=== PATIENT | female | born 2005 | race Caucasian/White ===

== ENCOUNTER 2024-11-11 23:58 | Outpatient (RCR) | payer MEDICAID, SELFPAY ==
[2024-11-12 00:40] VITALS: BP 127/74; PULSE 113
== END 2025-02-09 23:59 | disposition home or self-care (01) ==
LOC: ANHOBOP 23:58
PROVIDERS: PCP Obstetrics & Gynecology; Visit Provider Obstetrics & Gynecology
DX: O36.8190 Decreased fetal movements, unspecified trimester, not applicable or unspecified (principal); Z3A.00 Weeks of gestation of pregnancy not specified
CPT/HCPCS: 59025

== ENCOUNTER 2024-11-13 14:05 | Observation (INO) | payer SELFPAY ==
--- NOTE | ~2024-11-13 | US_ITS ---
EXAMINATION: US renal BI DATE: 11/13/2024 15:14 INDICATION: Right flank pain. TECHNIQUE: Multiple ultrasound grayscale images of the kidneys were obtained. COMPARISON: None. FINDINGS: The right kidney measures 12.9 x 5.4 x 4.6 cm. The left kidney measures 12.8 x 4.4 x 4.5 cm. The kidn eys demonstrate normal parenchymal echogenicity. There is mild right hydronephrosis. The bladder is d ecompressed. The gallbladder is normal in size contains gallstones. IMPRESSION: 1. Mild right hydronephrosis. 2. Cholelithiasis. Reviewed, dictated and finalized at location A. [employer]
--- NOTE | 2024-11-13 14:05 | OBADM ---
This patient, Lani Ho, admitted to the OB room [facility] for observation. Patient/family oriented to hospital policies and general routines including ID bracelet, bed and alarms, visiting hours, pain management, procedures, bathroom and other care routines, personal items, smoking policy, room service/diet, and visiting hours. Patient/Family are encouraged to report perceived risks to care and to ask questions if they do not understand what they are told or what they should do.
[2024-11-13 14:30] VITALS: BP 117/71; PULSE 103
[2024-11-13 14:31] VITALS: BP 114/66; PULSE 99
[2024-11-13 14:45] VITALS: BP 113/66; PULSE 101
[2024-11-13 15:02] LABS: Add Urine Microscopic? YES; Appearance Urine Cloudy (Clear); Bacteria Urine 1+ /hpf; Bilirubin Urine Negative (Negative); Blood Urine 3+ (Negative); Color Urine Yellow (Yellow); Glucose Urine UA Negative (Negative); Ketones Urine Negative (Negative); Leukocyte Esterase Ur 2+ LEU/UL (Negative); Need Manual Microscopic Reviewed; Nitrate Urine Negative (Negative); Protein Urine 1+ mg/dL (Negative); RBC Urine >100 /hpf (0-2); Squamous Epithelial Cell Urine Moderate /hpf (Few); Urobilinogen Urine 0.2 mg/dL (<2.0); WBC Urine 21-50 /hpf (0-3)
[2024-11-13 15:02] LABS: Basophils Percent Auto 0.4 % (0.2-1.2); Eosinophils Percent Auto 0.5 % (0-4.4); Hematocrit 30.5 % (37.0-47.0); Hemoglobin 10.7 g/dL (12.0-15.0); Immature Granulocyte Absolute 0.07 K/mm3 (0.00-0.031); Immature Granulocyte Percent A 0.9 % (0-0.5); Lymphocytes Absolute Auto 1.32 K/mm3 (0.9-3.2); Lymphocytes Percent Auto 16.5 % (18.3-44.2); Mean Corpuscular HGB Conc 35.1 g/dl (32-36); Mean Corpuscular Hemoglobin 33.3 pg (26-34); Mean Platelet Volume 9.8 fl (7.4-10.4); Monocytes Absolute Auto 0.5 K/mm3 (0.1-0.6); Monocytes Percent Auto 6.4 % (2.6-8.5); Neutrophils Absolute Auto 6.1 K/mm3 (1.3-6.7); Neutrophils Percent Auto 75.3 % (45.5-73.1); Platelet Count Result 245 k/mm3 (150-375); Red Blood Count 3.21 M/mm3 (4.2-5.4); Red Cell Distribution Width 12.1 % (11.5-14.5)
[2024-11-13 15:18] LABS: Alanine Aminotransferase 15 U/L (6-35); Albumin Level 3.9 g/dL (3.5-5.1); Alkaline Phosphatase 71 U/L (38-126); Anion Gap 3 mmol/L (4-12); Aspartate Amino Transferase 21 U/L (14-36); Bilirubin,Total 0.5 mg/dL (0.2-1.3); Blood Urea Nitrogen 7 mg/dL (7-17); Calcium 9.2 mg/dL (8.4-10.2); Carbon Dioxide 22 mmol/L (22-30); Chloride 108 mmol/L (98-107); Estimated Glomerular Filt Rate > 60; Glucose 82 mg/dL (65-110); Potassium 3.9 mmol/L (3.4-5.0); Sodium 133 mmol/L (137-145)
[2024-11-13 15:20] VITALS: BP 124/75; PULSE 100
[2024-11-13 15:57] VITALS: BMI 26.8
--- NOTE | 2024-11-13 15:57 | PC.NURSE ---
Dr. Wei update on pt lab results and ultrasound. gave order for antibotics and discharge orders.
--- NOTE | 2024-11-17 21:13 | PM.OBTRLD ---
OB - Triage/Final Diagnosis Visit Information Comments/Additional reasons for admission: I have assessed the risk for this patient, Lani Ho, and determined that she would benefit from observation care. Evaluation Laboratory results: Laboratory Tests 11/13/24 11/13/24 14:35 14:48 WBC 8.0 RBC 3.21 L Hgb 10.7 L Hct 30.5 L MCV 95.0 MCH 33.3 MCHC 35.1 RDW 12.1 Plt Count 245 MPV 9.8 Immature Gran % (Auto) 0.9 H Neut % (Auto) 75.3 H Lymph % (Auto) 16.5 L [place] % (Auto) 6.4 Eos % (Auto) 0.5 Baso % (Auto) 0.4 Lymph # (Auto) 1.32 [place] # (Auto) 0.5 Eos # (Auto) 0.0 Baso # (Auto) 0.0 Abs Immat Gran (auto) 0.07 H Absolute Neuts (auto) 6.1 Absolute Nucleated RBC 0.000 Nucleated RBC % 0.0 Sodium 133 L Potassium 3.9 Chloride 108 H Carbon Dioxide 22 Anion Gap 3 L BUN 7 Creatinine 0.40 L Estim Creat Clear Calc Not Reportable Estimated GFR > 60 Glucose 82 Calcium 9.2 Total Bilirubin 0.5 AST 21 ALT 15 Alkaline Phosphatase 71 Total Protein 7.0 Albumin 3.9 Urine Color Yellow Urine Appearance Cloudy H Urine pH 8.0 Ur Specific [place] 1.020 Urine Protein 1+ H Urine Glucose (UA) Negative Urine Ketones Negative Ur Blood (Man) 3+ H Urine Nitrate Negative Urine Bilirubin Negative Urine Urobilinogen 0.2 Add Ur Microanalysis Reviewed Leukocyte Esterase Rfl 2+ H Urine RBC >100 H Urine WBC 21-50 H Ur Squamous Epith Cells Moderate Urine Bacteria 1+ H Urine Casts 3-5 Final Diagnosis (1) Decreased movement: Code(s): O36.8190 - Decreased movements, unspecified trimester, not applicable or unspecified Status: Acute
== END 2024-11-13 16:12 | disposition home or self-care (01) ==
PROVIDERS: Admitting Provider Obstetrics & Gynecology; Visit Provider Obstetrics & Gynecology
DX: O36.8120 Decreased fetal movements, second trimester, not applicable or unspecified (principal); Z3A.27 27 weeks gestation of pregnancy
CPT/HCPCS: 36415; 76775; 80053; 81001; 85025; 87086; 99199; G0378; G0379

== ENCOUNTER 2025-01-05 15:34 | Outpatient (RCR) | payer OTHER, SELFPAY ==
[2025-01-05 17:51] LABS: HIV 1/2 Ab P24 Ag Result Negative (Negative)
--- OUTSIDE RECORDS SUMMARY | 2025-01-05 18:08 | XMS_ITS ---
Author Organization Unknown Address [address], [place] [id number] Phone Care Team Providers Care Installment Account Checker Name Role Phone DEON CONROY Attending Unavailable Results CYTOMEGALOVIRUS AB IGG - Col lect Date/Time: 10/22/2024 14:12 [facility] ID: [id number] [address], [place], [id number] LOINC: 5124-3 Test Value Unit Reference Range Code Code System Flag CYTOMEGALOVIRUS ANTIBODY(IGG) >10.00 H PARVOVIRUS B19 IGG & IGM - C ollect Date/Time: 10/22/2024 14:12 [facility] ID: [id number] [address], [place], [id number] LOINC: 5273-8 Test Value Unit Reference Range Code Code System Flag PARVOVIRUS B19 ANTIBODY(IGG) 0.2 PARVOVIRUS B19 ANTIBODY(IGM) 0.2 Social History Type Status Start Date End Date Code Code Syst em Smoking History Never smoker (Never Smoked) 108288098 SNOMED CT Sex Female Sexual Orientation Straight or Heterosexual 57696083 SNOMED CT Gender Identity Female [id number] Medications Medication Start Date End Date Route Frequency Dose Code Code System Medication Instructions Home Meds ZyrTEC Allergy 10MG Oral Capsule, Liquid Filled 03/12/2023 Unknown By Mouth Daily 1 CAPSULE 2453131 RxNorm 1 CAPSULE By Mouth Daily Fluticasone 0.05MG/1Actuatio n Nasal [place] 03/12/2023 Unknown Nasal Daily 1 Sprays 1928655 RxNorm 1 Spra ys Nasal Daily Azithromycin 500MG Oral Tablet 06/04/2024 Unknown By Mouth x1 NOW 2 TABLET 625219 RxNorm 2 TABLET By Mouth x1 NOW Assessment You had the following problems:SEASONAL ALLERGYFAMILY PLANNINGBITE OF INSECTCANDIDA OF VAGINAMENORRHAGIAPAINFUL NECK Hospital Discharge Instructions Should you have any questions prior to discharge, please contact a member of your healthcare team. If you have left the hospital and have any questions, please contact your primary care physician. Reason For Referral No Data Found Problems Problem Start Date Resolved Date Status Code Code System SEASONAL ALLERGY active 294357826 SNO MED-CT FAMILY PLANNING 06/20/2020 active 559643278 SNO MED-CT BITE OF INSECT active 252901502 SNOME D-CT ES OF VAGINA 08/07/2022 active 94514896 S NOMED-CT MENORRHAGIA active 596228825 SNOMED-C T PAINFUL NECK active 66971403 SNOMED- CT ADHD OF CHILDHOOD 07/22/2019 resolved 206992086 S NOMED-CT SEASONAL NASAL ALLERGY 07/22/2019 resolved 157829 001 SNOMED-CT HISTORY OF [place] 07/22/2019 resolved 7932319 08 SNOMED-CT Allergies and Adverse Reactions Allergy Substance Reaction Severity Start Date Concern Status Co de Code System Active seasonal allergies Active No Known Drug Allergies Active 891004640 SNOMED-CT No Known Drug Allergies Active 497518045 SNOMED-CT Plan of Treatment Description Due Date Details Instructions DEPRESSION SCREENING DUE 06/20/2021 Encounters Encounter Diagnosis Start Date Code Code Sys tem ultrasound scan abnormal 10/22/2024 855665 005 SNOMED-CT Personal Care Team Section Performer Name Performer Role Active Date Inactive Da xena
--- OUTSIDE RECORDS SUMMARY | 2025-01-05 18:09 | XMS_ITS | Data Portability ---
Author Organization [facility] Address [address] [place] [address] Assessment No assessment recorded. Plan of Treatment Reminders Order Date Submit Date Provider Last Modified By Organization Details Last Modified Time Details Appointments None recorded. Lab CBC w/ auto diff 2024 025 [place] [facility], [address] [place], [address], 5 12:24:38 glucose tolerance test, post-50G, 1-hour 2024 025 [facility], [address] [place], [address], 5 12:35:39 obstetric screen, serum or blood 2024 025 [place] [facility], [address] [place], [address], 5 14:47:18 Referral None recorded. Procedures None recorded. Surgeries None recorded. Imaging None recorded. Medication Orders None recorded. Patient TargetsNo targets recorded. Patient Instructions Encounter Date Encounter Id Patient Instructions Last Modified By Organization Details Last Modified Time 11/18/2024 [id number] learning about screening for gestational diabetes Not available 11/18/2024 15:10:20 11/26/2024 [id number] Anxiety During and After : Care Instructions Not available 11/26/2024 17:57:56 Reason for Referral None Reported. Results Created Date Observation Date Name Description Value Unit Range Abnormal Flag Note LastModifiedBy Organization Detail LastModifiedTime 11/18/1911/19/2024 CBC (INCL UDES DIFF/ PLT) WBC 7.6 thous and/u L 4.0 - 9.8 normal Not Available [facility] [address] [place] [address], [address], 11/19/2024 12:24:38 11/18/19 25 11/19/2024 CBC (INCL UDES DIFF/ PLT) RBC 3.4 jonathon on/uL 3.9 - 4.9 low Not Available [facility] [address] [place] [address], [address], 11/19/2024 12:24:38 11/18/19 25 11/19/2024 CBC (INCL UDES DIFF/ PLT) hemoglobin 11.0 g/dL 11.8 - 14.8 low Not Available [facility] [address] [place] [address], [address], 11/19/2024 12:24:38 11/18/19 25 11/19/2024 CBC (INCL UDES DIFF/ PLT) hematocrit 32.6 % 35.5 - 44.0 low Not Available [facility] [address] [place] [address], [address], 11/19/2024 12:24:38 11/18/19 25 11/19/2024 CBC (INCL UDES DIFF/ PLT) MCV 96.7 fL 82.0 - 99.0 normal Not Available [facility] [address] [place] [address], [address], 11/19/2024 12:24:38 11/18/1911/19/2024 CBC (INCL UDES DIFF/ PLT) MCH 32.6 pg 27.2 - 32.6 normal Not Available [facility] [address] [place] [address], [address], 11/19/2024 12:24:38 11/18/19 25 11/19/2024 CBC (INCL UDES DIFF/ PLT) MCHC 33.7 g/dL 31.5 - 35.5 normal Not Available [facility] [address] [place] [address], [address], 11/19/2024 12:24:38 11/18/19 25 11/19/2024 CBC (INCL UDES DIFF/ PLT) RDW-CV 12.2 % 11.5 - 14.5 normal Not Available [address], [address], 11/19/2024 12:24:38 11/18/19 25 11/19/2024 CBC (INCL UDES DIFF/ PLT) platelet 294 thous and/u L 140 - 350 normal Not Available [address], [address], 11/19/2024 12:24:38 11/18/19 25 11/19/2024 CBC (INCL UDES DIFF/ PLT) MPV 10.4 fL 9.3 - 12.4 normal Not Available [address], [address], 11/19/2024 12:24:38 11/18/19 25 11/19/2024 CBC (INCL UDES DIFF/ PLT) absolute neutrophil 5.66 thous and/u L 1.90 - 7.00 normal Not Available [address], [address], 11/19/2024 12:24:38 11/18/19 25 11/19/2024 CBC (INCL UDES DIFF/ PLT) absolute lymphocyte 1.32 thous and/u L 0.70 - 4.50 normal Not Available [address], [address], 11/19/2024 12:24:38 11/18/19 25 11/19/2024 CBC (INCL UDES DIFF/ PLT) absolute monocyte 0.46 thous and/u L 0.10 - 1.30 normal Not Available [address], [address], 11/19/2024 12:24:38 11/18/19 25 11/19/2024 CBC (INCL UDES DIFF/ PLT) absolute eosinophil 0.05 thous and/u L <0.70 normal Not Available [address], [address], 11/19/2024 12:24:38 11/18/19 25 11/19/2024 CBC (INCL UDES DIFF/ PLT) absolute basophil 0.03 thous and/u L <0.20 normal Not Available [address], [address], 11/19/2024 12:24:38 11/18/19 25 11/19/2024 CBC (INCL UDES DIFF/ PLT) absolute immature granulocyte 0.08 thous and/u L <0.03 high Not Available [address], [address], 11/19/2024 12:24:38 11/18/19 25 11/19/2024 (50G) 1HR - GLUCO SE GIA ANCE TEST, GESTA LEDER L SCREE N glucose (50g) 1 hour 144 mg/dL <135 high Not Available [address], [address], 11/19/2024 12:35:39 11/18/19 25 11/19/2024 OB 28W (SYPH HIV 1/2 Ag/Ab Non-Re active non-re active normal Not Available [address], [address], 11/19/2024 14:47:18 11/18/19 25 11/19/2024 OB 28W (SYPH syphilis Ab Non-Re active non-re active normal Not Available [address], [address], 11/19/2024 14:47:18 11/23/19 25 11/24/2024 (100G ) 3HR - GLUCO SE GIA ANCE TEST, GESTA ELDER L SCREE N glucose (100g) fasting 86 mg/dL <95 normal Not Available [address], [address], 11/24/2024 14:31:33 11/23/19 25 11/24/2024 (100G ) 3HR - GLUCO SE GIA ANCE TEST, GESTA ELDER L SCREE N glucose (100g) 1 hour 198 mg/dL <180 high Not Available [facility] [address] [place], [address], 11/24/2024 14:31:33 11/23/19 25 11/24/2024 (100G ) 3HR - GLUCO SE GIA ANCE TEST, GESTA ELDER L SCREE N glucose (100g) 2 hour 163 mg/dL <155 high Not Available [facility] [address] [place], [address], 11/24/2024 14:31:33 11/23/19 25 11/24/2024 (100G ) 3HR - GLUCO SE GIA ANCE TEST, GESTA ELDER L SCREE N glucose (100g) 3 hour 145 mg/dL <140 high Not Available [facility] [address] [place], [address], 11/24/2024 14:31:33 09/23/20 24 09/23/2024 US, obste tric, 2nd trime ster No observ ation record ed. [email or web address] [facility] [address] [place] [address], [address], 09/24/2024 15:24:20 10/23/20 24 10/21/2024 US, obste tric No observ ation record ed. [email or web address] [facility] [address] [place] [address], [address], 11/30/2024 13:18:29 11/20/19 25 11/19/2024 US, obste tric No observ ation record ed. [email or web address] [facility] [address] [place] [address], [address], 12/02/2024 14:05:06 Result Notes None recorded. 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) WOLF GUADARRAMA NP [address] [place] [address], [address], [facility] - [facility] IV 5 18:48:16 RhD negative 272294886 Active 2024 RH (D) NIPT detected will need [place] [address] [place] [address], [address], [facility] - [facility] IV 5 18:49:16 Large for gestation age fetus 077515353 Active 2024 EFW 98%tile on 10/22 Echogenic bowel 11/19-94%til e WOLF GUADARRAMA NP [facility] [place], [address], [facility] - [facility] IV 5 14:05:39 Gestationa l diabetes mellitus 66702705 Active 2024 WOLF GUADARRAMA NP [facility] [place], [address], [facility] - [facility] 5 17:52:44 Problem Notes None recorded. Procedures Surgical History Date Name Laterality Status Provider Name and Address Organization Details Recorded Time Appendectomy completed Rebecca Chadwick [place] - [facility] 06/09/2024 15:08:50 Imaging Results Imaging Date Name Status LastModified by Organiz ation Details LastModified Time 09/23/2024 US, obstetric, 2nd trimester completed [email or web address] [facility] [address] [place] [address], [address], 09/24/2024 15:24:20 10/21/2024 US, obstetric completed [facility]32 [facility] [address] [place], [address], 11/30/2024 13:18:29 11/19/2024 US, obstetric completed [facility]32 [facility] [address] [place], [address], 12/02/2024 14:05:06 Procedure Notes None recorded. Medical Equipment None Reported. Allergies No known drug allergies Medications Name Sig Start Date Stop Date Status Note LastModified by Organization Details LastModified Time amoxicillin 500 mg capsule TAKE ONE CAPSULE BY MOUTH EVERY 8 HOURS FOR 10 DAYS 06/09 completed Not Available Not Available Not Available Accu-Chek Softclix Lancets USE TO MONITOR BLOOD SUGAR LEVEL FOUR TIMES DAILY active Not Available Not Available No t Available cephalexin 500 mg capsule TAKE 1 CAPSULE BY MOUTH EVERY 6 HOURS FOR 7 DAYS 11/26 completed Not Available Not Available Not Available azithromyci n 500 mg tablet 06/09 completed Not Available Not Available Not Available 06/23 completed Not Available Not Available Not Available 28 mg iron-800 mcg tablet Take 1 tablet every day by oral route. 2023 active Not Available Not Available Not Avai lable Accu-Chek Guide test strips USE TO CHECK FASTING AND 2 HOURS AFTER EACH MEAL active Not Available Not Available No t Available Accu-Chek Guide Glucose Meter USE TO MONITOR BLOOD SUGAR LEVELS DIRECTED active Not Available Not Available No t Available Vitals Date Recorded Body height Body mass index (BMI) Body mass index (BMI) Percentile per age and sex Body weight Systolic blood pressure Diastolic blood pressure Provider Name and Address Organization Details Last Updated DateTime 4 172.72 cm 26 kg/m2 83 % 23991.2 9527 g 120 mm[Hg] 70 mm[Hg] Lucinaandrea Rossi [facility] IV 4 15:43:01 Date Recorded Body weight Body mass index (BMI) Percentile per age and sex Body mass index (BMI) Body height Body temperature Systolic blood pressure Diastolic blood pressure Provider Name and Address Organization Details Last Updated DateTime 4 52974.8 16681 g 85 % 26.7 kg/m2 172.72 cm 96.6 [degF] 118 mm[Hg] 68 mm[Hg] Cristela Harpersangeeta [facility] 4 14:19:52 Date Recorded Body weight Body mass index (BMI) Body mass index (BMI) Percentile per age and sex Body height Systolic blood pressure Diastolic blood pressure Provider Name and Address Organization Details Last Updated DateTime 5 70922.4 4186 g 27.1 kg/m2 86 % 172.72 cm 110 mm[Hg] 70 mm[Hg] [facility] 5 14:46:18 Date Recorded Body weight Body mass index (BMI) Body mass index (BMI) Percentile per age and sex Body height Systolic blood pressure Diastolic blood pressure Provider Name and Address Organization Details Last Updated DateTime 5 95190.6 266 g 27.4 kg/m2 87 % 172.72 cm 112 mm[Hg] 68 mm[Hg] [facility] 5 16:44:47 Date Recorded Body weight Body mass index (BMI) Percentile per age and sex Body mass index (BMI) Body height Systolic blood pressure Diastolic blood pressure Provider Name and Address Organization Details Last Updated DateTime 5 54939.8 4949 g 86 % 26.9 kg/m2 172.72 cm 112 mm[Hg] 70 mm[Hg] [facility] IV 5 14:34:15 Social History Question Answer Notes LastModified by Organizat ion Details LastModified Time Tobacco Smoking Status Never Smoker Rebecca acosta, [facility] 06/09/2024 15:08:08 What Is Your Level Of Alcohol Consumption? None [email or web address] Information not available 06/09/2024 If You Are , What Was Your Level Of Alcohol Consumption Prior To ? None [email or web address] Information not available 06/09/2024 Are You Blind Or Do You Have Difficulty Seeing? No Information not available 06/23/2024 Are You Deaf Or Do You Have Serious Difficulty Hearing? No Information not available 06/23/2024 What Type Of Diet Are You Following? REGULAR Information not available 06/09/2024 How Many Children Do You Have? 0 [email or web address] Information not available 06/23/2024 What Is Your Relationship Status? Domestic Partner [email or web address] Information not available 06/09/2024 Are You Sexually Active? Yes [email or web address] Information not available 06/09/2024 Do You Use Any Illicit Or Recreational Drugs? No [email or web address] Information not available 06/09/2024 Do You Or Have You Ever Used Any Other Forms Of Tobacco Or Nicotine? No [email or web address] Information not available 06/09/2024 Sex: Unknown Functional Status Question Answer Note LastModified by Organization D etails LastModified Time What is your exercise level? None Information not available 06/23/2024 Mental Status None recorded. Family History Relationship Description Onset Age of this Age Resolved Age Notes LastModified by Organization Details LastModified Time Father No current problems or disability [email or web address] Not available 05/13 15:07:47 Mother No current problems or disability [email or web address] Not available 05/13 15:07:47 Medical History Condition Response Other Cancer N High Blood Pressure N Colon Cancer N Cytomegalovirus N Hyperthyroidism N MRSA N Breast Cancer N Herpes (HSV) N Blood Transfusion N Lung Cancer N Depression N Hypothyroidism N Incontinence N Panic Attacks N Neurological Disorder N Deep Vein Thrombosis N Anxiety Disorder N Autoimmune disease N Arthritis N Tuberculosis/Positive PPD N Shingles N Polycystic Ovarian Syndrome N Infertility N Cervical Cancer N Hematuria N Chlamydia N Stroke N Varicosities N Seasonal allergies N Crohn's Disease N Alzheimer's/Dementia N COPD/Emphysema N Endometriosis N HPV/Genital Warts N IBS (Irritable Bowel Syndrome) N History of Abnormal Pap N High Cholesterol N Liver Disease N Kidney Infection N Fibromyalgia N Ulcer N Kidney Disease N HIV N Gallbladder disease N Sickle Cell Disease/Trait N Von Willebrand disease N ADD/ADHD N Eating Disorder N Anemia N Diabetes Mellitus (non-insulin dependent ) N Multiple Sclerosis N Ovarian Problems N Gonorrhea N Frequent Urinary Tract infections N Osteopenia N Headaches/migraines N GERD (reflux) N Ovarian Cancer N Diabetes (insulin dependent) N Seizures/Epilepsy N Breast Problems N Fibroids N Asthma N Heart Attack N Lupus N Endometrial Cancer N Rubella N Blood Clotting Disorder N Bipolar Disorder N Diabetes Mellitus (during ) N Ulcerative Colitis N Hepatitis N Heart Disease N Pulmonary Embolism N RPR N Chicken Pox N Osteoporosis N Gynecological History Statement/Question Response Date of Last Colonoscopy Date of LMP 04/24/2024 Most Recent Bone Density Date of Last Pap Smear Duration of Flow (days) 3 Most Recent Mammogram Current Control Method Age at Menarche 11 Obstetrics History GPAL:G 1 P 0 0 0 0 Type Value Multiple Births 0 Full Term 0 Induced 0 Spontaneous 0 Premature 0 Living 0 Ectopics 0 Total 1 Past Encounters Encounter ID Performer Location Encounter Start Date Encounter Closed Date Diagnosis/Indication Diagnosis SNOMED-CT Code Diagnosis ICD10 Code Diagnosis Note [id number] WOLF GUADARRAMA NP [address] [address] 06/09/2024 15:02:07 06/10/2024 15:59:32 Missed period 43830060 N92.6 Patient with possible early gestation. Patient is unsure of LMP possibly 6.17.24. Denies VB or abnormal discharge. SAB precaution s reviewed. To RTC in 2-3 weeks for repeat TVUS [id number] WOLF GUADARRAMA NP [address] [address] 06/23/2024 14:51:10 06/23/2024 16:28:07 test positive 625873737 Z32.01 Pt presents today for a confirmati on of visit. has not been previously confirmed at another healthcare facility. Pt voiced that she is happy about this . TVUS today showed:Naveed P with Cardiac Activity. TAYE based on this US.TAYE:01/11 Gestat ional Age: 7w 2dFHT:148 First trimester teaching provided.- --Foods and activities to avoid---We ight gain recommenda tions based on BMI---Safe meds---Luis entation to practice-- -Delivery locations- --KEYONNA visit progressio n---Prenat al vitamins daily---To xoplasmosi s precaution s reviewed-- -[facility] Guide; What to expect on your maternity journey -- -S/S of SAB reviewed and when to seek care RTC for 1st OB, Labs, and Physical. --BMI:24.9 [id number] WOLF GUADARRAMA NP [facility] [address] [place] [address] 07/22/2024 16:12:51 07/22/2024 16:55:54 Gestation period, 11 weeks 00429182 Z3A.11 screening 2437 89446 Z36.89 Normal 5204879 2 Z34.90 Pt comes in today for a New/First OB visit.Gest ation:11 w3 dEDD: -- PMH: Anxiety-- Medication s: Taking daily PNV, paxton supp for N/V and tylenol-- Previous OB History: n/a-- Mom/Sister s with hx of Pre-Eclamp kelli:denies -- History of Genital HSV:denies -- Genetic Questions in OB Episode Done-- Accepts [facility]. Discussed logging on to the [facility] portal to find Gender Results POC-- NOB labs done today-- Accepts [facility] -- RTC 4 weeks Guide: Given and reviewed. Toxoplasmo sis precaution s reviewed. Reviewed office visit schedule during . Reviewed Quickening and normal FHTs. Carrier de tection, molecular genetics 8939404 Z14.8 [id number] WOLF GUADARRAMA NP [address] [address] 08/19/2024 16:40:21 08/21/2024 12:29:30 Normal 29075139 Z34.90 Pt is here for a KEYONNA appointmen t. She is taking vitamins. She has no complaints or questions. Has not felt movement yet. Denies vaginal bleeding, abdominal cramps, N/V, contractio ns, or LOF. Denies headache, vision changes, swelling of hands or face, and epigastric pain. Discussed PTL and precaution s given. There are no identifiab le risk factors for pre-term labor. Gestation period, 15 weeks 0860395 Z3A.15 declines AFP will offer again at next appt. [id number] WOLF GUADARRAMA NP [facility] [address] [place] [address] 09/07/2024 15:50:39 09/07/2024 16:37:32 Normal 93799162 Z34.92 Pt is here for a KEYONNA appointmen t. She is taking vitamins. She has no complaints or questions. Reports feeling movement. Denies vaginal bleeding, abdominal cramps, N/V, contractio ns, or LOF. Denies headache, vision changes, swelling of hands or face, and epigastric pain. Discussed PTL and precaution s given. There are no identifiab le risk factors for pre-term labor. Gestation period, 18 weeks 83269977 Z3A.18 [id number] WOLF GUADARRAMAJENNIFER [address] [address] 09/30/2024 15:30:33 10/03/2024 14:06:30 Normal 14744064 Z34.90 Pt is here for a KEYONNA appointmen t. She is taking vitamins. She has no complaints or questions. Reports feeling movement. Denies vaginal bleeding, abdominal cramps, N/V, contractio ns, or LOF. Denies headache, vision changes, swelling of hands or face, and epigastric pain. Discussed PTL and precaution s given. There are no identifiab le risk factors for pre-term labor. Gestation period, 21 weeks 55787843 Z3A.21 Backache 019355315 O99.8 91 M54.9 [id number] WOLFSTEPHENIE GUADARRAMA NP [address] [address] 10/21/2024 14:10:22 10/21/2024 14:50:59 Gestation period, 24 weeks 381040528 Z3A.24 Normal 5330230 2 Z34.92 Pt is here for a KEYONNA appointmen t. She is taking vitamins. She has no complaints or questions. Reports feeling movement. Denies vaginal bleeding, abdominal cramps, N/V, contractio ns, or LOF. Denies headache, vision changes, swelling of hands or face, and epigastric pain. Discussed PTL and precaution s given. There are no identifiab le risk factors for pre-term labor. [id number] WOLF GUADARRAMA NP [facility] [address] [place] [address] 11/18/2024 14:41:31 11/19/2024 15:28:39 Normal 88941447 Z34.92 Pt is here for a KEYONNA appointabena rowan. She is taking vitamins. She has no complaints or questions. Reports feeling movement. Denies vaginal bleeding, abdominal cramps, N/V, contractio ns, or LOF. Denies headache, vision changes, swelling of hands or face, and epigastric pain. Discussed PTL and precaution s given. There are no identifiab le risk factors for pre-term labor. Gestation period, 28 weeks 08909983 Z3A.28 screening 2437 [address]76[address] Z36.89 [id number] WOLF GUADARRAMA NP [facility] [address] [place] [address] 11/26/2024 16:40:34 11/29/2024 05:26:51 Gestational diabetes mellitus complicating 0468795485 9106 O24.419 *GDM education completed. Discussed diet- rec. max. carbs/day, starchy vs non-starch y carbs. Good vs bad foods. Carb counting and the plate method explained. Discussed exercise. Reviewed QID BS checks and normal values. Instructed to not skip meals and eat snacks in btwn meals. BS log explained. Reviewed risk in with GDM, including LGA baby, preeclamps ia, GHTN, polyhydram nios, and stillbirth . risks include but are not limited to hypoglycem ia, hyperbilir ubinemia, hypocalcem ia, and respirator y distress-i nstruction s and logs given pt to RTC next week*Check CDC website for further info High risk 4720 0007 O09.90 Pt is here for a KEYONNA rowan. She is taking vitamins. She has no complaints or questions. Reports feeling movement. Denies vaginal bleeding, abdominal cramps, N/V, contractio ns, or LOF. Denies headache, vision changes, swelling of hands or face, and epigastric pain. Discussed PTL and precaution s given. There are no identifiab le risk factors for pre-term labor. Gestation period, 29 weeks 20346581 Z3A.29 [id number] WOLF GUADARRAMA NP [facility] [address] [place] [address] 12/02/2024 14:30:01 12/04/2024 14:24:45 High risk 18341679 O09.90 Pt is here for a KEYONNA appointmen t. She is taking vitamins. She has no complaints or questions. Reports feeling movement. Denies vaginal bleeding, abdominal cramps, N/V, contractio ns, or LOF. Denies headache, vision changes, swelling of hands or face, and epigastric pain. Discussed PTL and precaution s given. There are no identifiab le risk factors for pre-term labor. Gestation period, 30 weeks 56414140 Z3A.30 Gestationa l diabetes mellitus 74824336 O24.410 Health Concerns Section Related Observation LastModified by Organization Detai ls LastModified Time None Recorded Concern Status LastModified by Organization Details LastModified Time None Recorded Advance Directives Directive None Recorded Payers Encounter Date Sequence Insurance Name Policy Number Policy Rivers Covered Member ID Rivers Member ID Guarantor Name 09/30/2024 1 [facility] (MEDICAID HMO) [id number] Lani Ho [id number] Lani Ho 10/21/2024 1 [facility] (MEDICAID HMO) [id number] Lani Ho [id number] Lani Ho 11/26/2024 1 [place] Lani Ho [id number] Lani Ho 12/02/2024 1 [place] Lani Ho [id number] Lani Ho Notes Date Note Type Note Provider Name and Address Organization Details Recorded Time 09/30/2024 text/html Lani is 21.3 weeks. She is here for a routine visit. She reports normal movement and she is taking vitamins. Anatomy scan was done at [facility]. WOLF GUADARRAMA NP [address] [facility], [place], [address], [facility] IV 10/01/2024 10:29:53 10/21/2024 text/html Patient is here today for a routine OB visit. She is currently at {{6 7 8 9 10 11 1 2 13 14 15 16 17 18 19 20 21 22 23 24 25 26 27 28 2 9 30 31 32 33 34 35 36 37 38 39 40 41 24.3#}} weeks gestation. vitamins: {{yes* no}} She {{has* has not}} felt movement.She denies any complaints of the presence of vaginal bleed, leaking fluid, abdominal cramps, nausea, vomiting, headache or visual disturbances. WOLF GUADARRAMA NP [address] [place], [address], [facility] IV 10/21/2024 14:38:09 11/18/2024 text/html Patient is here today for a routine OB visit. She is currently at {{6 7 8 9 10 11 1 2 13 14 15 16 17 18 19 20 21 22 23 24 25 26 27 28 2 9 30 31 32 33 34 35 36 37 38 39 40 41 28.3#}} weeks gestation. vitamins: {{yes* no}} She {{has* has not}} felt movement.She denies any complaints of the presence of vaginal bleed, leaking fluid, abdominal cramps, nausea, vomiting, headache or visual disturbances. No concerns. EPDS is 9. 1 Hr. Glucose @ 1:48 p.m. WOLF GUADARRAMA NP [address] [place], [address], [facility] IV 11/18/2024 18:56:16 11/26/2024 text/html Patient is here today for a routine OB visit. She is currently at {{6 7 8 9 10 11 1 2 13 14 15 16 17 18 19 20 21 22 23 24 25 26 27 28 2 9 30 31 32 33 34 35 36 37 38 39 40 41 29.4#}} weeks gestation. vitamins: {{yes* no}} She {{has* has not}} felt movement.She denies any complaints of the presence of vaginal bleed, leaking fluid, abdominal cramps, nausea, vomiting, headache or visual disturbances. Pt. has no concerns. WOLF GUADARRAMA NP [address] [place], [address], [facility] IV 11/26/2024 17:58:04 12/02/2024 text/html Patient is here today for a routine OB visit. She is currently at {{6 7 8 9 10 11 1 2 13 14 15 16 17 18 19 20 21 22 23 24 25 26 27 28 2 9 30 31 32 33 34 35 36 37 38 39 40 41 30.3#}} weeks gestation. vitamins: {{yes* no}} She {{has* has not}} felt movement.She denies any complaints of the presence of vaginal bleed, leaking fluid, abdominal cramps, nausea, vomiting, headache or visual disturbances. Pt. has no concerns. WOLF GUADARRAMA NP [address] [facility], [place], [address], [facility] 12/03/2024 14:55:08 OBGyn Episode Ob Episode Information Episode Created Date Number of Fetuses Patient Bloodtype Patient rh Status Prepregnancy Weight lbs Domestic Partner Domestic Partner Phone Father Name Certified First Assistant Status 07/22/20 24 1 B Negative OPEN Fetus Data First Name Last Name Admitted to NICU Weight (g) Sex Living Outcome Pediatric Complications Fetus ID Race Codes Race Delivery Type [id number] Problems Problem Notes Problem Name Start Date End Date Resolution Snomed Code Not e RhD negative 11/18/2024 292286491 RH (D) NIPT detected will need Rhogam PP Large for gestation age fetus 11/18/20241995533968962 EFW 98%tile on 10/22 Echogenic bowel 11/19-94%tile Rubella non-immune 11/18/2024 [id number] Gestational diabetes mellitus 11/26/2024 [id number] Abnormal finding on screening of mother 11/18/2024 [id number] 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) Taye Calculation Initial Taye Date Initial Exam Date Initial Exam Provider Initial Ultrasound Date Last Menstrual Period Date Ultra Sound Weeks Gestation 02/07/2025 07/22/2024 04/11/2024 0 Eighteen To Twenty Week Taye Update Ultra Sound Date Fundal Height At Umbil Quickening Date Ultra Sound Latest Weeks Gestation Final Taye Confirmed By Final Taye Confirmed Date Final Taye Date Ultra Sound Latest Days Gestation 0 0 Pre-kristan Flowsheet Flowsheet Date 07/22/2024 Lozada Score Blood Edema Fundus Height Fundus Units Glucose Ketones Leukocytes Nitrite Labor Signs Protein Cervic Dilation Cervic Effacement Cervic Station none Type Weight in lbs Pre/Post Dialysis Refused With clothes 164.960340153737 BP Diastolic BP Location Tested BP Systolic BP Type 76 122 sitting Fetus Heart Rate Present A 167 Fetus Movement A No Comments NOB, [facility] labs today. No OB complaints. RTC in 4 wks Flowsheet Date 08/19/2024 Lozada Score Blood Edema Fundus Height Fundus Units Glucose Ketones Leukocytes Nitrite Labor Signs Protein Cervic Dilation Cervic Effacement Cervic Station none none neg Type Weight in lbs Pre/Post Dialysis Refused With clothes 164.258193390595 BP Diastolic BP Location Tested BP Systolic BP Type 76 L arm 118 sitting Fetus Heart Rate Present A 153 Fetus Movement A Yes Comments Declines AFP. No OB complain ts. RTC 4 weeks for Anatomy US. Flowsheet Date 09/07/2024 Lozada Score Blood Edema Fundus Height Fundus Units Glucose Ketones Leukocytes Nitrite Labor Signs Protein Cervic Dilation Cervic Effacement Cervic Station none none Backpain neg Type Weight in lbs Pre/Post Dialysis Refused With clothes 165.037437799375 BP Diastolic BP Location Tested BP Systolic BP Type 70 L arm 110 sitting Fetus Heart Rate Present A 147 Present Fetus Movement A Yes Comments Reports lower back discomfor t. PTL precautions reviewed. Anatomy with MFM. RTC in 4 wks. Flowsheet Date 09/30/2024 Lozada Score Blood Edema Fundus Height Fundus Units Glucose Ketones Leukocytes Nitrite Labor Signs Protein Cervic Dilation Cervic Effacement Cervic Station none none Backpain neg Type Weight in lbs Pre/Post Dialysis Refused 171.001099986159 BP Diastolic BP Location Tested BP Systolic BP Type 70 120 Fetus Heart Rate Present A 146 Present Fetus Movement A Yes Comments Patient reports back sorenes s with certain movements. No Other OB complaints. RTC in 4 wks. Flowsheet Date 10/21/2024 Lozada Score Blood Edema Fundus Height Fundus Units Glucose Ketones Leukocytes Nitrite Labor Signs Protein Cervic Dilation Cervic Effacement Cervic Station none neg Type Weight in lbs Pre/Post Dialysis Refused With clothes 175.333892634693 BP Diastolic BP Location Tested BP Systolic BP Type 68 118 sitting Fetus Heart Rate Present A 148 Present Fetus Movement A Yes Comments Patient reports dizziness wh en going from sitting to standing abruptly. advise to take things slowly as blood pressures my fluctuate with sudden standing. advised to increase water intake and electrolyte drinks if sick or not having appetite. RTC in 4 wks for gtt and 3T. Flowsheet Date 11/18/2024 Lozada Score Blood Edema Fundus Height Fundus Units Glucose Ketones Leukocytes Nitrite Labor Signs Protein Cervic Dilation Cervic Effacement Cervic Station none none neg Type Weight in lbs Pre/Post Dialysis Refused 178.718402939073 BP Diastolic BP Location Tested BP Systolic BP Type 70 110 sitting Fetus Heart Rate Present A 150 Present Fetus Movement A Yes Comments Gtt and 3T labs today. EFW 9 8%tile on 10/22 posterior placenta. Echogenic bowel. CMV and Parvo titer drawn by MFM. patient reports increased anxiety due to US findings, declines medication and/or counseling at this time. To readdress at next appt. RTC in 2 wks Flowsheet Date 11/26/2024 Lozada Score Blood Edema Fundus Height Fundus Units Glucose Ketones Leukocytes Nitrite Labor Signs Protein Cervic Dilation Cervic Effacement Cervic Station none Type Weight in lbs Pre/Post Dialysis Refused 180.142418780233 BP Diastolic BP Location Tested BP Systolic BP Type 68 112 sitting Fetus Heart Rate Present A 150 Fetus Movement A Yes Comments GDM teaching today. patient questions answered about Rhogam and TDAP. RTC Next week with logs. Flowsheet Date 12/02/2024 Lozada Score Blood Edema Fundus Height Fundus Units Glucose Ketones Leukocytes Nitrite Labor Signs Protein Cervic Dilation Cervic Effacement Cervic Station none neg Type Weight in lbs Pre/Post Dialysis Refused 177.994455793231 BP Diastolic BP Location Tested BP Systolic BP Type 70 112 sitting Fetus Heart Rate Present A 144 Present Fetus Movement A Yes Comments Reviewed Glucose logs. FBG 8 5-89 and 2 hr PP 110-123. Patient reports feeling hungry dispite having snacks. patient encouraged to eat protein rich snack such as cheese or 100 john snack packs. RTC in 2 wks Menstrual History Last Menstrual Date Menses Monthly On Bcp Conception Prior Menses Frequency Hcg Plus Date Menarche Onset Age 0604/11/2024 Delivery Information Delivery Date Delivery Type Labor Anesthesia Weeks Gestation Incision Type Labor Labor Length Hrs Delivered By Post Complications Tubal Sterilization Discharge Date Comments Discharge Information Feeding Method Contraceptive Method Maternal HG B and HCT Levels
--- OUTSIDE RECORDS SUMMARY | 2025-01-05 18:09 | XMS_ITS ---
Author Organization Unknown Address [address] [place] [phone] Phone Care Team Providers Care Block Placer Name Role Phone ATIYA Lezama MD Attending Unavailable Immunization Immunization Date Status Additional Notes Code Code System HPV9 07/22/2019 Completed 165 CVX meningococcal MCV4P 06/20/2020 Completed 114 CVX HPV9 02/26/2018 Completed 165 CVX Influenza, split virus, quadrivalent, PF 02/26/2018 Completed 150 CVX meningococcal MCV4, unspecified formulation 02/26/2018 Completed 147 CVX DTaP-IPV 09/06/2009 Completed 130 CVX Tdap 02/26/2018 Completed 115 CVX MMR 07/12/2005 Completed 03 CVX COVID-19, mRNA, LNP-S, PF, 3 0 mcg/0.3 mL dose 02/21/2021 Completed 208 CVX meningococcal MCV4P 02/26/2018 Completed 114 CVX DTaP-Hep B-IPV 01/27/2005 Completed 110 CVX pneumococcal conjugate PCV 7 09/24/2005 Completed 100 CVX pneumococcal conjugate PCV 7 01/27/2005 Completed 100 CVX pneumococcal conjugate PCV 7 2004 Completed 100 CVX influenza, unspecified formulation 10/31/2006 Completed 88 CVX varicella 09/06/2009 Completed 21 CVX varicella 07/12/2005 Completed 21 CVX DTaP 09/24/2005 Completed 20 CVX DTaP 2004 Completed 20 CVX Hib, unspecified formulation 09/24/2005 Completed 17 CVX Hib, unspecified formulation 01/27/2005 Completed 17 CVX Hib, unspecified formulation 2004 Completed 17 CVX influenza, split (incl. purified surface antigen) 08/24/2010 Completed 15 CV X IPV 09/24/2005 Completed 10 CVX IPV 2004 Completed 10 CVX Hep B, adolescent or pediatric 2004 Completed 08 CVX Hep B, adolescent or pediatric 2004 Completed 08 CVX MMR 09/06/2009 Completed 03 CVX COVID-19, mRNA, LNP-S, PF, 3 0 mcg/0.3 mL dose 03/16/2021 Completed 208 CVX Social History Type Status Start Date End Date Code Code Syst em Smoking History Never smoker (Never Smoked) 444109391 SNOMED CT Sex Female Sexual Orientation Straight or Heterosexual 31137923 SNOMED CT Gender Identity Female 02760178500970 [address] Vital Signs Vital Sign Value Unit [place] Value [place] Unit Date/Time Recent/Initial? Code Code System Body Mass Index 22.93 kg/m2 09/12/2022 17:59 Initial 01618 -5 [facility] Body Mass Index Percentile 67 % 09/12/2022 17:59 Initial 43883 -9 [facility] Systolic Blood Pressure 100 mm[Hg] 09/12/2022 17:59 Initial 8480- 6 [facility] Diastolic Blood Pressure 70 mm[Hg] 09/12/2022 17:59 Initial 8462- 4 [facility] Body Surface Area 1.81 m2 09/12/2022 17:59 Initial 3140- 1 [facility] Height 172.720 0 cm 68.00 in 09/12/2022 17:59 Initial 8302- 2 [facility] O2 Saturation 99 % 2021 17:59 Initial 99804 -5 [facility] Pulse 95.0 /min 09/12/2022 17:59 Initial 8867- 4 [facility] Respiration 18 /min 09/12/20 17:59 Initial 9279- 1 [facility] Temperature 36.9 Antonella 98.4 F 09/12/20 17:59 Initial 8310- 5 [facility] Weight 68.40 kg 150.80 lbs 09/12/2022 17:59 Initial 68186 -7 [facility] Medications Medication Start Date End Date Route Frequency Dose Code Code System Medication Instructions Home Meds Clover-28 30MCG-0.15MG-NA Oral Tablet 06/07/2022 09/12/2022 By Mouth Daily 1 TABLET 936871 RxNorm 1 TABLET By Mouth Daily Diflucan 150MG Oral Tablet 08/07/2022 09/12/2022 By Mouth x1 NOW 1 TABLET 363105 RxNorm 1 TABLET By Mouth x1 NOW FOR MARCH REPEAT IN 72 HOURS Radha 28 3MG-0.02MG Oral Tablet 09/12/2022 12/25/2022 By Mouth Once a day 1 TABLET RxNorm 1 TABLET By Mouth Once a day Medrol Dosepak 4MG Oral Tablet 12/25/2022 02/20/2023 By Mouth As Directed 1 PACK 862825 RxNorm 1 PACK By Mouth As Directed Methocarbamol 750MG Oral Tablet 12/25/2022 03/12/2023 By Mouth As needed every 8 hr 117408 RxNorm 1-2 TABLET By Mouth As needed every 8 hr Clover-28 30 MCG-0.15 MG; NA Oral Tablet 12/25/2022 03/12/2023 By Mouth Daily 1 TABLET 595980 RxNorm 1 TABLET By Mouth Daily Macrobid 100MG Oral Capsule 02/20/2023 03/12/2023 By mouth Twice a day 1 TABLET 485062 RxNorm 1 TABLET By mouth Twice a day X 7 DAYS Pyridium 100MG Oral Tablet 02/20/2023 03/12/2023 By mouth As needed every 8 hr 1 TABLET 3022039 RxNorm 1 TABLET By mouth As needed every 8 hr for urinary pain ZyrTEC Allergy 10MG Oral Capsule, Liquid Filled 03/12/2023 Unknown By Mouth Daily 1 CAPSULE 5981162 RxNorm 1 CAPSULE By Mouth Daily Fluticasone 0.05MG/1Actuatio n Nasal [place] 03/12/2023 Unknown Nasal Daily 1 Sprays 4473070 RxNorm 1 Spra ys Nasal Daily Azithromycin 500MG Oral Tablet 06/04/2024 Unknown By Mouth x1 NOW 2 TABLET 183782 RxNorm 2 TABLET By Mouth x1 NOW Assessment You had the following problems:SEASONAL ALLERGYFAMILY PLANNINGBITE OF INSECTCANDIDA OF VAGINAMENORRHAGIAPAINFUL NECK Assessment/Plan: 1) Menorrhagia: Will check TSH, T4, CBC, PT/INR, and CMP. Will discontinue the Anel and start her on Radha 1 tablet daily. 2) Contraceptive management: Patient is currently on Anel but this is not managing her periods well. Return to clinic in December 2022. Hospital Discharge Instructions Should you have any questions prior to discharge, please contact a member of your healthcare team. If you have left the hospital and have any questions, please contact your primary care physician. Reason For Referral No Data Found Problems Problem Start Date Resolved Date Status Code Code System SEASONAL ALLERGY active 983611812 SNO MED-CT FAMILY PLANNING 06/20/2020 active 525655970 SNO MED-CT BITE OF INSECT active 335604610 SNOME D-CT ES OF VAGINA 08/07/2022 active 11155522 S NOMED-CT MENORRHAGIA active 931792496 SNOMED-C T PAINFUL NECK active 00956585 SNOMED- CT ADHD OF CHILDHOOD 07/22/2019 resolved 677175692 S NOMED-CT SEASONAL NASAL ALLERGY 07/22/2019 resolved 494903 001 SNOMED-CT HISTORY OF CHICKENPOX 07/22/2019 resolved 3384659 08 SNOMED-CT Allergies and Adverse Reactions Allergy Substance Reaction Severity Start Date Concern Status Co de Code System Active seasonal allergies Active No Known Drug Allergies Active 805262690 SNOMED-CT No Known Drug Allergies Active 307681512 SNOMED-CT Plan of Treatment Description Due Date Details Instructions DEPRESSION SCREENING DUE 06/20/2021 Future Order Description Future Order Date Futu re Order Loinc: TSH 09/12/2022 LOINC: 36238-3 FREE T4 09/12/2022 LOINC: 3024-7 CBC W DIFF 09/12/2022 LOINC: 40440-0 COMPREHENSIVE METABOLIC PANEL 09/12/2022 L OINC: 06924-9 PT (PROTIME) 09/12/2022 LOINC: 6301-6 Encounters Encounter Diagnosis Start Date Code Code Sys tem Excessive and frequent menstruation 09/12/2022 09945 1003 SNOMED-CT Personal Care Team Section Performer Name Performer Role Active Date Inactive Da te Progress Notes [facility] 09/13/2022 09:49 Admission Date/Time: 09/12/2022 13:21 Rachael Andersen MD Clinic Visit Note Chief Complaint: DISCUSS BC Has the patient received a COVID Vaccine? Yes Nurse Note: this nurse note is documented by Opal Ly CMA 17 yr old female present to [facility] today to discuss BC History of Present Illness: An 17-year-old presents to [facility] today to discuss BC. Patient states since she started this BC about 3 months ago that when she gets her periods. She states her periods are much more painful and heavier bleeding than before. She has severe low back pain during her periods. Previously her menstrual cycle was every 28 days for 4 days. Patient states she had to miss school yesterday due to pain. Patient is currently on Clover for BC. Patient states when she first took the Clover she noticed tissue came out of her vagina. Patient denies any nausea or vomiting. Patient states she got on BC to help with her bad period, but this does not seem to help. She has never used control previously. Allergy Table Allergen Type Reaction seasonal allergies No Known Environmental Allergies environment Vital Signs: This Visit HtWt Date/Time BP (mm/Hg) BP Position/Site Heart Rate Resp Temp (F) SPO2% Pain Score Height (in) Weight (lbs/ozs) BMI Head Cir (cm) 09/12/2022 17:59 100/70 Sitting/Left Arm 95 18 98.4 Tympanic 99 % 68 in 150.8 lbs 22.93 PHYSICAL EXAM: General - no acute distress. HEENT - Pupils equal and reactive to light and accommodation, tympanic membranes clear, no pharyngeal exudate, no cervical lymphadenopathy Heart - Regular rate and rhythm, no murmurs Lungs - Clear to auscultation bilaterally Abdomen - Bowel sounds positive, non-distended, non- tender, soft, no hepatosplenomegaly Lab Results: This Visit: No Labs Available Assessment/Plan: 1) Menorrhagia: Will check TSH, T4, CBC, PT/INR, and CMP. Will discontinue the Clover and start her on Radha 1 tablet daily. 2) Contraceptive management: Patient is currently on Anel but this is not managing her periods well. Return to clinic in December 2022. - total minutes were spent on this calendar date on these patient specific activities: (james all that occurred) Documenting clinical information in the electronic health record Counseling and education to the patient/family/caregiver Preparation to see the patient by reviewing test result Ordered medications, tests or procedures Preparation to see the patient by reviewing outside records Referring and communicating with other health resident care provider Obtaining and/or reviewing separately obtained history Independent interpretation of results and communicating results to the patient/family/caregiver Performing a medically appropriate examination/evaluation Care coordination (not reported separately) Scribe Statement: Katarina Blackmon, acted as a scribe for Rachael Andersen MD. Documentation was scribed in the presence and at the direction of the provider. Portions of this note were transcribed by a scribe. Rachael Blackmon MD, personally performed the history, exam and decision making and confirm the accuracy of the note. Ordered & Completed Meds Table: No Current Medications Available Discharge Med List: Discharge Medications Medication Special Instructions Start Date Prescribing MD Tam- 30MCG-0.15MG-NA Oral Tablet 1 TABLET By Mouth Daily 06/07/2022 Blanco Gallego
--- OUTSIDE RECORDS SUMMARY | 2025-01-05 18:09 | XMS_ITS ---
Author Organization Unknown Address [address], [place] [phone] Phone Care Team Providers Care Registered Nurse Teacher Name Role Phone mattyKlausSHERMAN Machado Social History Type Status Start Date End Date Code Code Syst em Smoking History Never smoker (Never Smoked) 147419103 SNOMED CT Sex Female Sexual Orientation Straight or Heterosexual 94009526 SNOMED CT Gender Identity Female 77412070159129 [address] Medications Medication Start Date End Date Route Frequency Dose Code Code System Medication Instructions Home Meds ZyrTEC Allergy 10MG Oral Capsule, Liquid Filled 03/12/2023 Unknown By Mouth Daily 1 CAPSULE 3400982 RxNorm 1 CAPSULE By Mouth Daily Fluticasone 0.05MG/1Actuatio n Nasal [place] 03/12/2023 Unknown Nasal Daily 1 Sprays 3592313 RxNorm 1 Spra ys Nasal Daily Azithromycin 500MG Oral Tablet 06/04/2024 Unknown By Mouth x1 NOW 2 TABLET 578152 RxNorm 2 TABLET By Mouth x1 NOW [...] Status Code Code System SEASONAL ALLERGY active 502282151 SNO MED-CT FAMILY PLANNING 06/20/2020 active 018395950 SNO MED-CT BITE OF INSECT active 600528008 SNOME D-CT ES OF VAGINA 08/07/2022 active 49231418 S NOMED-CT MENORRHAGIA active 583316379 SNOMED-C T PAINFUL NECK active 62724069 SNOMED- CT ADHD OF CHILDHOOD 07/22/2019 resolved 990310887 S NOMED-CT SEASONAL NASAL ALLERGY 07/22/2019 resolved 482923 001 SNOMED-CT HISTORY OF CHICKENPOX 07/22/2019 resolved 2756563 08 SNOMED-CT Allergies and Adverse Reactions Allergy Substance Reaction Severity Start Date Concern Status Co de Code System Active seasonal allergies Active No Known Drug Allergies Active 370810675 SNOMED-CT No Known Drug Allergies Active 947776125 SNOMED-CT Plan of Treatment Description Due Date Details Instructions DEPRESSION SCREENING DUE 06/20/2021 Encounters Encounter Diagnosis Start Date Code Code Sys tem Dysuria 06/03/2024 53845167 SNOMED-CT Personal Care Team Section Performer Name Performer Role Active Date Inactive Da te
--- OUTSIDE RECORDS SUMMARY | 2025-01-05 18:09 | XMS_ITS ---
Author Organization Unknown Address [address] [place] [phone] Phone Care Team Providers Care Costing Analyst Name Role Phone ABBY AGUIRRE Attending Unavailable ATIYA Lezama MD Primary Unavailable Immunization Immunization Date Status Additional Notes [...] em Smoking History Never smoker (Never Smoked) 804237189 SNOMED CT Sex Female Sexual Orientation Straight or Heterosexual 68246613 SNOMED CT Gender Identity Female [id number] Vital Signs Vital Sign Value Unit [place] Value [place] Unit Date/Time Recent/Initial? Code Code System Body Mass Index 26.21 kg/m2 05/06/2023 12:01 Initial 82999 -5 [facility] Body Mass Index Percentile 85 % 05/06/2023 12:01 Initial 33886 -9 [facility] Systolic Blood Pressure 118 mm[Hg] 05/06/2023 12:01 Initial 8480- 6 [facility] Diastolic Blood Pressure 74 mm[Hg] 05/06/2023 12:01 Initial 8462- 4 [facility] Body Surface Area 3.35 m2 05/06/2023 12:01 Initial 3140- 1 [facility] Height 248.920 0 cm 98.00 in 05/06/2023 12:01 Initial 8302- 2 [facility] O2 Saturation 98 % 2022 12:01 Initial 67103 -5 [facility] Pulse 78.0 /min 05/06/2023 12:01 Initial 8867- 4 [facility] Temperature 36.4 Antonella 97.5 F 05/06/20 12:01 Initial 8310- 5 [facility] Weight 162.40 kg 358.03 lbs 05/06/2023 12:01 Initial 06303 -7 [facility] Medications Medication Start Date End Date Route Frequency Dose Code Code System Medication Instructions Home Meds ZyrTEC Allergy 10MG Oral Capsule, Liquid Filled 03/12/2023 Unknown By Mouth Daily 1 CAPSULE 2497050 RxNorm 1 CAPSULE By Mouth Daily Fluticasone 0.05MG/1Actuatio n Nasal [place] 03/12/2023 Unknown Nasal Daily 1 Sprays 1952045 RxNorm 1 Spra ys Nasal Daily Azithromycin 500MG Oral Tablet 06/04/2024 Unknown By Mouth x1 NOW 2 TABLET 371007 RxNorm 2 TABLET By Mouth x1 NOW Assessment You had the following problems:SEASONAL ALLERGYFAMILY PLANNINGBITE OF INSECTCANDIDA OF VAGINAMENORRHAGIAPAINFUL NECK Assessment/Plan: 1. acute facial and head injury, mild 2. acute facial skin abrasions 3. acute right knee skin abrasion 4. Trip and fall injuries RX: none In Clinic: recommended facial xray, she declines, will call back for this if not improving OTC/Other: saline spray, Afrin for 2 days, ice packs 20 minutes on and 20 minutes off to face and right knee. Be sure to keep these areas clean with soap and water. Discussed scarring. Tylenol 1000 mg every 6 hours, samples given, ibuprofen 600 mg every 8 hours as needed for pain and inflammation. discussed head injuries and concussion precautions. Advised to avoid television, tablets and phones for brain rest be sure to drink plenty of fluids to stay hydrated advised better she takes care of herself now may shorten her healing time. Discussed triple antibiotic ointment, Vaseline, vitamin E after healing Follow Up: With primary care provider later this week if symptoms not improving, if unable to follow up with primary care and symptoms are persisting return to clinic or if emergent go to the nearest emergency department Always practice good hand washing techniques and wipe common surfaces in the home to prevent spreading germs Hospital Discharge Instructions Should you have any questions prior to discharge, please contact a member of your healthcare team. If you have left the hospital and have any questions, please contact your primary care physician. Reason For Referral No Data Found Problems Problem Start Date Resolved Date Status Code Code System SEASONAL ALLERGY active 933293174 SNO MED-CT FAMILY PLANNING 06/20/2020 active 889710976 SNO MED-CT BITE OF INSECT active 748482112 SNOME D-CT ES OF VAGINA 08/07/2022 active 33266911 S NOMED-CT MENORRHAGIA active 808937059 SNOMED-C T PAINFUL NECK active 77168162 SNOMED- CT ADHD OF CHILDHOOD 07/22/2019 resolved 848323825 S NOMED-CT SEASONAL NASAL ALLERGY 07/22/2019 resolved 373271 001 SNOMED-CT HISTORY OF CHICKENPOX 07/22/2019 resolved 5615194 08 SNOMED-CT Allergies and Adverse Reactions Allergy Substance Reaction Severity Start Date Concern Status Co de Code System Active seasonal allergies Active No Known Drug Allergies Active 714591620 SNOMED-CT No Known Drug Allergies Active 947872407 SNOMED-CT Plan of Treatment Description Due Date Details Instructions DEPRESSION SCREENING DUE 06/20/2021 Encounters Encounter Diagnosis Start Date Code Code Sys tem Injury of head 05/06/2023 00427643 SNOMED-CT Personal Care Team Section Performer Name Performer Role Active Date Inactive Da te Progress Notes [facility] 05/06/2023 13:28 Date of Service: 05/06/2023 [facility] Visit Chief Complaint: NOSE INJURY History of Present Illness: Presents ambulatory to [facility] with concerns for Facial skin abrasions. Patient reports yesterday she tried to jump over a trash can and tripped and struck her face on the grass. She has had a headache that is located in the frontal and posterior of her head. She denies loss of consciousness, bloody nose, inability to breathe through her nose or neck pain. She reports she struck her right knee also. She denies loose teeth or dental pain. She has not taken any medications for her headache today. Last night she took 1 ibuprofen pill. She reports that she has injured this nose in the past but never was seen for it. Last menstrual period May 02, 2023 Allergy Table Allergen Type Reaction No Known Environmental Allergies environment No Known Drug Allergies medication Vital Signs: This Visit HtWt Date/Time BP (mm/Hg) BP Position/Site Heart Rate Resp Temp (F) SPO2% Pain Score Height (in) Weight (lbs/ozs) BMI Head Cir (cm) 05/06/2023 12:01 118/74 Sitting/Left Arm 78 97.5 Temporal 98 % 98 in 358.03 lbs 26.21 PHYSICAL EXAM: Constitutional: Afebrile individual in no acute distress HEENT: Normocephalic, bilateral external ears, canals and TMs appear within limits, Nose: see skin documentation, nares are patent, no bleeding, nose does not appear deviated, able to palpate the area above below and around the nose without reproducing pain, mucous membranes are moist and intact, airway widely patent Heart: Regular rate Lungs: Speaks in full sentences, no respiratory distress, O2 sat 98% on room air Extremities: No edema bilaterally. Moving all extremities without difficulty Neck: full ROM is present, no tenderness Skin: located to the nose and upper lip there is skin abrasions, upper lip is mildly swollen with no through and through laceration from teeth. There is some mild bruising on the inside of the upper lip, no open wound. Skin abrasions appear noninfective at this time. Neuro: A&Ox3, gait appears steady, answering questions appropriately REVIEW OF SYMPTOMS: See HPI for additional information Lab Results: This Visit: No Labs Available Assessment/Plan: 1. acute facial and head injury, mild 2. acute facial skin abrasions 3. acute right knee skin abrasion 4. Trip and fall injuries RX: none In Clinic: recommended facial xray, she declines, will call back for this if not improving OTC/Other: saline spray, Afrin for 2 days, ice packs 20 minutes on and 20 minutes off to face and right knee. Be sure to keep these areas clean with soap and water. Discussed scarring. Tylenol 1000 mg every 6 hours, samples given, ibuprofen 600 mg every 8 hours as needed for pain and inflammation. discussed head injuries and concussion precautions. Advised to avoid television, tablets and phones for brain rest be sure to drink plenty of fluids to stay hydrated advised better she takes care of herself now may shorten her healing time. Discussed triple antibiotic ointment, Vaseline, vitamin E after healing Follow Up: With primary care provider later this week if symptoms not improving, if unable to follow up with primary care and symptoms are persisting return to clinic or if emergent go to the nearest emergency department Always practice good hand washing techniques and wipe common surfaces in the home to prevent spreading germs Meds Given This Visit: Ordered & Completed Meds Table: No Current Medications Available Discharge Med List: Discharge Medications Medication Special Instructions Start Date Prescribing Fluticasone 0.05MG/1Actuation Nasal [place] 1 Sprays Nasal Daily 03/12/2023 Blanco Gallego ZyrTEC Allergy 10MG Oral Capsule, Liquid Filled 1 CAPSULE By Mouth Daily 03/12/2023 Blanco Gallego This examination was transcribed using the [employer] voice recognition system without human harbor pilot. In an effort to expedite patient care, this report has not been adjusted for typographical, or medical or syntax by a trained medical records auditor.
--- OUTSIDE RECORDS SUMMARY | 2025-01-05 18:09 | XMS_ITS ---
Author Organization Unknown Address [address] [place] [phone] Phone Care Team Providers Care Senior Interactive Developer Name Role Phone JOSUE FULTON Attending Unavailable ATIYA Lezama MD Primary Unavailable [...] mcg/0.3 mL dose 03/16/2021 Completed 208 CVX Results URINALYSIS NON-AUTO W/O MICR O - Collect Date/Time: 02/20/2023 18:44 [facility] ID: [id number] [address] [place] [address], [phone] LOINC: Test Value Unit Reference Range Code Code System Flag TEST NAME URINALYSIS Color YELLOW Clarity HAZY Spec Grav 1.010 NORMAL: 1.001-1.035 PH 8.0 NORMAL: 5 - 6 A Leuk Est ++ NORMAL: NEGATIVE A Nitrates Positive NORMAL: NEGATIVE A Protein TRACE NORMAL: NEGATIVE A Glucose NEGATIVE NORMAL: NEGATIVE Manual Clinitest NOT APPLICABLE Ketones NEGATIVE NORMAL: NEGATIVE Urobilinogen 4 MG/DL NORMAL: 0-1 mg/dl A Bilirubin NEGATIVE NORMAL: NEGATIVE Blood TRACE NORMAL: NEGATIVE A URINE TEST - Colle ct Date/Time: 02/20/2023 18:43 [facility] ID: [id number] [address] [place] [address], [phone] LOINC: Test Value Unit Reference Range Code Code System Flag TEST PERFORMED URINE PREG (URINE) NEGATIVE LOT#: [id number] EXP DATE: 2023-12-11 QC: ACCEPTABLE Social History Type Status Start Date End Date Code Code Syst em Smoking History Never smoker (Never Smoked) 035823945 SNOMED CT Sex Female Sexual Orientation Straight or Heterosexual 57757763 SNOMED CT Gender Identity Female [id number] [address] Vital Signs Vital Sign Value Unit [place] Value [place] Unit Date/Time Recent/Initial? Code Code System Body Mass Index 24.50 kg/m2 02/20/2023 18:36 Initial 69045 -5 [facility] Body Mass Index Percentile 77 % 02/20/2023 18:36 Initial 67817 -9 [facility] Systolic Blood Pressure 112 mm[Hg] 02/20/2023 18:36 Initial 8480- 6 [facility] Diastolic Blood Pressure 70 mm[Hg] 02/20/2023 18:36 Initial 8462- 4 [facility] Body Surface Area 1.85 m2 02/20/2023 18:36 Initial 3140- 1 [facility] Height 171.450 0 cm 67.50 in 02/20/2023 18:36 Initial 8302- 2 [facility] O2 Saturation 98 % 2022 18:36 Initial 62232 -5 [facility] Pulse 91.0 /min 02/20/2023 18:36 Initial 8867- 4 [facility] Temperature 37.2 Antonella 98.9 F 02/21/20 18:36 Initial 8310- 5 [facility] Weight 72.03 kg 158.80 lbs 02/20/2023 18:36 Initial 62088 -7 [facility] Medications Medication Start Date End Date Route Frequency Dose Code Code System Medication Instructions Home Meds Medrol Dosepak 4MG Oral Tablet 12/25/2022 02/20/2023 By Mouth As Directed 1 PACK 244218 RxNorm 1 PACK By Mouth As Directed Methocarbamol 750MG Oral Tablet 12/25/2022 03/12/2023 By Mouth As needed every 8 hr 779775 RxNorm 1-2 TABLET By Mouth As needed every 8 hr Pierce-28 30 MCG-0.15 MG; NA Oral Tablet 12/25/2022 03/12/2023 By Mouth Daily 1 TABLET 840240 RxNorm 1 TABLET By Mouth Daily Macrobid 100MG Oral Capsule 02/20/2023 03/12/2023 By mouth Twice a day 1 TABLET 202849 RxNorm 1 TABLET By mouth Twice a day X 7 DAYS Pyridium 100MG Oral Tablet 02/20/2023 03/12/2023 By mouth As needed every 8 hr 1 TABLET 2263235 RxNorm 1 TABLET By mouth As needed every 8 hr for urinary pain ZyrTEC Allergy 10MG Oral Capsule, Liquid Filled 03/12/2023 Unknown By Mouth Daily 1 CAPSULE 3959599 RxNorm 1 CAPSULE By Mouth Daily Fluticasone 0.05MG/1Actuati on Nasal Tram 03/12/2023 Unknown Nasal Daily 1 Sprays 0631625 RxNorm 1 Spr ays Nasal Daily Azithromycin 500MG Oral Tablet 06/04/2024 Unknown By Mouth x1 NOW 2 TABLET 321175 RxNorm 2 TABLET By Mouth x1 NOW [...] Status Code Code System SEASONAL ALLERGY active 029941783 SNO MED-CT FAMILY PLANNING 06/20/2020 active 484497942 SNO MED-CT BITE OF INSECT active 184027604 SNOME D-CT ES OF VAGINA 08/07/2022 active 13059582 S NOMED-CT MENORRHAGIA active 415811518 SNOMED-C T PAINFUL NECK active 70572810 SNOMED- CT ADHD OF CHILDHOOD 07/22/2019 resolved 571709990 S NOMED-CT SEASONAL NASAL ALLERGY 07/22/2019 resolved 923213 001 SNOMED-CT HISTORY OF CHICKENPOX 07/22/2019 resolved 4518888 08 SNOMED-CT Allergies and Adverse Reactions Allergy Substance Reaction Severity Start Date Concern Status Co de Code System Active seasonal allergies Active No Known Drug Allergies Active 557048921 SNOMED-CT No Known Drug Allergies Active 857068014 SNOMED-CT Plan of Treatment Description Due Date Details Instructions DEPRESSION SCREENING DUE 06/20/2021 Future Order Description Future Order Date Futu re Order Loinc: CULTURE URINE 02/20/2023 LOINC: 630-4 TRICHOMONAS VAGINALIS FEMALE RNA QUAL LOINC: 81067-7 GC/CHLAMYDIA PCR [place] 02/20/2023 LOINC: 448 06-8 CULTURE YEAST, WITH IDENTIFICATION 02/20/2023 LOINC: 20816-2 BACTERIAL VAGINOSIS RAPID TEST 02/20/2023 LOINC: 6410-5 Encounters Encounter Diagnosis Start Date Code Code Sys tem Urinary tract infectious disease 02/20/2023 74673114 SNOMED-CT Personal Care Team Section Performer Name Performer Role Active Date Inactive Da te Progress Notes [facility] 02/20/2023 19:27 Admission Date/Time: 02/20/2023 18:07 [facility] Visit Chief Complaint: YEAST INFECTION HPI: Presents ambulatory to clinic with complaint of dysuria and strong smell to the urine x 2 days. Denies any fever, vaginal discharge, polyuria, urgency or dyspareunia. Denies any genital lesions. Denies any fever, pelvic or abdominal pain, or N/V/D. PO intake is normal. Sexually active in a non-monogamous relationship of 2 weeks. Does not use condoms. Last sexual encounter a few days ago. Has had 15 sexual partners. Started having sex at age 13. Denies any history of STDs but reports that she talked with the new partner and was informed that he had Chlamydia 1 year ago but said he was treated and retested and was cleared. Unsure if STD exposure and wants tested. Last menstrual period 2 weeks ago. denies tobacco use. EXAM: General: A&O x3. NAD. Healthy appearance. Rates pain 0/10 at present Lungs: CTA. Respirations with ease Cardiac: heart regular rhythm, rate , GI/: BS present, Abd soft and nontender. CVA tenderness not noted. Declined genital exam. Skin: Warm, dry, normal color. ASSESSMENT/DIAGNOSIS: 1. Acute UTI, mild 2. Acute dysuria, mild 3. High risk sexual behavior Differential diagnosis: Bacterial vaginosis, vaginal yeast infection, STD PLAN: Diagnostics: Urinalysis, urine culture, urine test, urine GC test, urine chlamydia test, urine trich test. BV, yeast culture. patient declined HIV testing. Medications: Macrobid, Pyridium. Discussed treating today with Rocephin, azithromycin and Flagyl. Patient wants to wait until test have been completed and resulted before getting treatment. Instructions: Take/use medications as directed. No sexual contact until all tests are completed and resulted and all indicated treatment is completed. If any STD tests are positive inform all partners or discuss with your local health department and provide names of sexual partners so they can ensure appropriate treatment. HIV testing encouraged. Use condoms when resuming sex. Avoid vaginal douching. Do not use tampons until treatment is completed and symptoms have resolved. Follow up: PCP or CC in 2 days if not improving, otherwise follow-up in 2 weeks with PCP, Health Department or STD clinic. ER if any symptoms become severe or develops abdominal pain or fever. *This plan has been reviewed with the patient Questions and concerns were addressed. Patient verbalized understanding of the treatment plan and need for follow up. This examination was transcribed using the [employer] voice recognition system without human heat sealing machine operator. In an effort to expedite patient care, this report has not been adjusted for typographical, or medical or syntax by a trained medical lab technologist. Allergy Table Allergen Type Reaction seasonal allergies No Known Environmental Allergies environment Vital Signs: This Visit HtWt Date/Time BP (mm/Hg) BP Position/Site Heart Rate Resp Temp (F) SPO2% Pain Score Height (in) Weight (lbs/ozs) BMI Head Cir (cm) 02/20/2023 18:36 112/70 Sitting/Left Arm 91 98.9 Temporal 98 % 67.5 in 158.8 lbs 24.5 Lab Results: This Visit Test Results Units Reference Range Ordered Collected Status TEST NAME URINALYSIS 02/20/2023 18:38 02/20/2023 18:44 final Color YELLOW 02/20/2023 18:38 02/20/2023 18:44 final Clarity HAZY 02/20/2023 18:38 02/20/2023 18:44 final Spec Grav 1.010 NORMAL: 1.001-1.035 02/20/2023 18:38 02/20/2023 18:44 final PH 8.0 A NORMAL: 5 - 6 02/20/2023 18:38 02/20/2023 18:44 final Leuk Est ++ A NORMAL: NEGATIVE 02/20/2023 18:38 02/20/2023 18:44 final Nitrates Positive A NORMAL: NEGATIVE 02/20/2023 18:38 02/20/2023 18:44 final Protein TRACE A NORMAL: NEGATIVE 02/20/2023 18:38 02/20/2023 18:44 final Glucose NEGATIVE NORMAL: NEGATIVE 02/20/2023 18:38 02/20/2023 18:44 final Manual Clinitest NOT APPLICABLE 02/20/2023 18:38 02/20/2023 18:44 final Ketones NEGATIVE NORMAL: NEGATIVE 02/20/2023 18:38 02/20/2023 18:44 final Urobilinogen 4 MG/DL A NORMAL: 0-1 mg/dl 02/20/2023 18:38 02/20/2023 18:44 final Bilirubin NEGATIVE NORMAL: NEGATIVE 02/20/2023 18:38 02/20/2023 18:44 final Blood TRACE A NORMAL: NEGATIVE 02/20/2023 18:38 02/20/2023 18:44 final TEST PERFORMED URINE 02/20/2023 18:38 02/20/2023 18:43 final PREG (URINE) NEGATIVE 02/20/2023 18:38 02/20/2023 18:43 final LOT#: [id number] 02/20/2023 18:38 02/20/2023 18:43 final EXP DATE: 2023-12-11 02/20/2023 18:38 02/20/2023 18:43 final QC: ACCEPTABLE 02/20/2023 18:38 02/20/2023 18:43 final Meds Given This Visit: Ordered & Completed Meds Table: No Current Medications Available Discharge Med List: Discharge Medications Medication Special Instructions Start Date Prescribing Pyridium 100MG Oral Tablet 1 TABLET By mouth As needed every 8 hr for urinary pain 02/20/2023 JOSUE FULTON Macrobid 100MG Oral Capsule 1 TABLET By mouth Twice a day X 7 DAYS 02/20/2023 JOSUE FULTON Anel-28 30 MCG-0.15 MG; NA Oral Tablet 1 TABLET By Mouth Daily 12/25/2022 Blanco Gallego Methocarbamol 750MG Oral Tablet 1-2 TABLET By Mouth As needed every 8 hr 12/25/2022 Blanco Gallego
--- OUTSIDE RECORDS SUMMARY | 2025-01-05 18:09 | XMS_ITS | Clinical Summary ---
Author Organization [facility] Address [address] [place] [id number] Care Team Providers Care Service Worker Helper Name Role Phone Geovanna Pryor NP Primary Care Provider + Geovanna Pryor NP Unavailable + Social History Tobacco Use Types Packs/Day Years Used Date Smoking Tobacco: Never Assessed Comments Unknown Sex and Gender Information Value Date Recorded Sex Assigned at Not on file Legal Sex Female 7:37 PM CDT Gender Identity Not on file Sexual Orientation Not on file Last Filed Vital Signs Vital Sign Reading Time Taken Comments Blood Pressure 100/68 02/25/2018 1:13 PM CDT Pulse 98 02/25/2018 1:13 PM CDT Temperature - - Respiratory Rate - - Oxygen Saturation - - Inhaled Oxygen Concentration - - Weight 52.9 kg (116 lb 9.6 oz) 02/25/2018 1:13 P M CDT Height 166.4 cm (5' 5.5 ) 02/25/2018 1:13 PM CDT Body Mass Index 19.11 02/25/2018 1:13 PM CDT Plan of Treatment Health Maintenance Due Date Last Done Comments Annual Physical 2007 DTaP, Tdap and Td Vaccines (5 - Tdap) 2015 09/06/2009, 09/24/2005, 01/27/2005, Additional history exists HPV Vaccines (1 - 3-dose series) 2019 Meningococcal B Vaccine (1 of 2 - Standard) 2020 Hepatitis C 2022 COVID-19 Vaccine ( - 2023-25 season) 2024 Influenza Adult (#1) 2024 Hepatitis B Vaccines Completed 01/27/2005, 2004, 2004 Pneumococcal Vaccine: Pediatrics (0 to 5 Years) and At-Risk Patients (6 to 64 Years) Aged Out 09/24/2005, 01/27/2005, 2004 No longer eligible based on patient's age to complete this topic Meningococcal Vaccine Aged Out No bulmaro nina eligible based on patient's age to complete this topic RSV Immunizations Under 20 Months Aged Out No longer eligible based on patient's age to complete this topic Care Teams Service Worker Helper Relationship Specialty Start Date End Date Geovanna Pryor NP [address] [place] [address] PCP - General Nurse Practitioner Family 06/17/19 Geovanna Pryor NP [address] [place] [address] 06/17/19
--- OUTSIDE RECORDS SUMMARY | 2025-01-05 18:09 | XMS_ITS ---
Author Organization Unknown Address [address] [place] [address] [phone] Phone Care Team Providers Care Utility System Repairer Name Role Phone Blanco Gallego Attending Unavailable ATIYA Lezama MD Primary Unavailable [...] em Smoking History Never smoker (Never Smoked) 733283043 SNOMED CT Sex Female Sexual Orientation Straight or Heterosexual 27418336 SNOMED CT Gender Identity Female [id number] Vital Signs Vital Sign Value Unit Slope Value Slope Unit Date/Time Recent/Initial? Code Code System Body Mass Index 21.85 kg/m2 06/07/2022 14:23 Initial 35932 -5 [facility] Body Mass Index Percentile 57 % 06/07/2022 14:23 Initial 03138 -9 [facility] Systolic Blood Pressure 118 mm[Hg] 06/07/2022 14:23 Initial 8480- 6 [facility] Diastolic Blood Pressure 72 mm[Hg] 06/07/2022 14:23 Initial 8462- 4 [facility] Body Surface Area 1.75 m2 06/07/2022 14:23 Initial 3140- 1 [facility] Height 171.450 0 cm 67.50 in 06/07/2022 14:23 Initial 8302- 2 [facility] O2 Saturation 99 % 2021 14:23 Initial 71027 -5 [facility] Pulse 107.0 /min 06/07/2022 14:23 Initial 8867- 4 [facility] Respiration 20 /min 06/07/20 14:23 Initial 9279- 1 [facility] Temperature 36.6 Antonella 97.8 F 06/07/20 14:23 Initial 8310- 5 [facility] Weight 64.23 kg 141.60 lbs 06/07/2022 14:23 Initial 42498 -7 [facility] Medications Medication Start Date End Date Route Frequency Dose Code Code System Medication Instructions Home Meds predniSONE 50MG Oral Tablet 06/07/2022 07/31/2022 By Mouth Daily 1 TABLET 520685 RxNorm 1 TABLET By Mouth Daily 30MCG-0.15MG-NA Oral Tablet 06/07/2022 09/12/2022 By Mouth Daily 1 TABLET 796117 RxNorm 1 TABLET By Mouth Daily Diflucan 150MG Oral Tablet 08/07/2022 09/12/2022 By Mouth x1 NOW 1 TABLET 672322 RxNorm 1 TABLET By Mouth x1 NOW FOR MARCH REPEAT IN 72 HOURS Radha 28 3MG-0.02MG Oral Tablet 09/12/2022 12/25/2022 By Mouth Once a day 1 TABLET RxNorm 1 TABLET By Mouth Once a day Medrol Dosepak 4MG Oral Tablet 12/25/2022 02/20/2023 By Mouth As Directed 1 PACK 128125 RxNorm 1 PACK By Mouth As Directed Methocarbamol 750MG Oral Tablet 12/25/2022 03/12/2023 By Mouth As needed every 8 hr 336094 RxNorm 1-2 TABLET By Mouth As needed every 8 hr Anel-28 30 MCG-0.15 MG; NA Oral Tablet 12/25/2022 03/12/2023 By Mouth Daily 1 TABLET 778805 RxNorm 1 TABLET By Mouth Daily Macrobid 100MG Oral Capsule 02/20/2023 03/12/2023 By mouth Twice a day 1 TABLET 818093 RxNorm 1 TABLET By mouth Twice a day X 7 DAYS Pyridium 100MG Oral Tablet 02/20/2023 03/12/2023 By mouth As needed every 8 hr 1 TABLET 2710140 RxNorm 1 TABLET By mouth As needed every 8 hr for urinary pain ZyrTEC Allergy 10MG Oral Capsule, Liquid Filled 03/12/2023 Unknown By Mouth Daily 1 CAPSULE 9300065 RxNorm 1 CAPSULE By Mouth Daily Fluticasone 0.05MG/1Actuati on Nasal Titus 03/12/2023 Unknown Nasal Daily 1 Sprays 4965193 RxNorm 1 Spr ays Nasal Daily Azithromycin 500MG Oral Tablet 06/04/2024 Unknown By Mouth x1 NOW 2 TABLET 912429 RxNorm 2 TABLET By Mouth x1 NOW [...] Status Code Code System SEASONAL ALLERGY active 247641879 SNO MED-CT FAMILY PLANNING 06/20/2020 active 997993637 SNO MED-CT BITE OF INSECT active 126724034 SNOME D-CT ES OF VAGINA 08/07/2022 active 47661077 S NOMED-CT MENORRHAGIA active 846436323 SNOMED-C T PAINFUL NECK active 29824573 SNOMED- CT ADHD OF CHILDHOOD 07/22/2019 resolved 578545245 S NOMED-CT SEASONAL NASAL ALLERGY 07/22/2019 resolved 653315 001 SNOMED-CT HISTORY OF CHICKENPOX 07/22/2019 resolved 1129980 08 SNOMED-CT Allergies and Adverse Reactions Allergy Substance Reaction Severity Start Date Concern Status Co de Code System Active seasonal allergies Active No Known Drug Allergies Active 260431966 SNOMED-CT No Known Drug Allergies Active 974063670 SNOMED-CT Plan of Treatment Description Due Date Details Instructions DEPRESSION SCREENING DUE 06/20/2021 Encounters Encounter Diagnosis Start Date Code Code Sys tem Well child visit 06/07/2022 776146415 SNOMED-CT Personal Care Team Section Performer Name Performer Role Active Date Inactive Da te Progress Notes [facility] 06/07/2022 15:22 All Demographics Patient Name Age Sex Visit Number Admission Date/Time Attending Physician Date of Service Room and Bed Emergency Contact NELA MANZANARES 2005 16 years Female [id number] 06/07/2022 14:22 Julián Simeon 06/07/2022 402 06/07/2022 14:25 Accompanied By: Parent Parent, mother X. Parent, father Guardian Relative application services manager Caregiver Family Protective services Friend Healthcare provider Law enforcement Road Mender / EMS Spouse / SO Other: Preferred Language: [place]ican. Vital Signs: This Visit Date/Time BP (mm/Hg) BP Position/Site Heart Rate Resp Temp (?C) Temp (?F) SPO2% O2 Device Blood Sugar (mg/dL) Pain Score Height (cm) Height (in) Weight (kg) Weight (lbs/ozs) BMI Head Cir (cm) 06/07/2022 14:23 118/72 Sitting/Right Arm 107 20 36.6 Temporal Scanning 97.8 Temporal Scanning 99 % Room Air 21% 171.45 cm 67.5 in 64.23 kg 141.6 lbs 21.85 Growth Percentages (See Growth Chart) Weight %: Height %: BMI %: Blood Pressure %: HISTORY Concerns and Questions: None Discussed: Bite hays on legs. Interval History: X. None Discussed: Medical History Adolescent Has Special Health Care Needs: X. No Yes Describe: Medical History: X. Reviewed and updated as needed Problem List Seasonal allergy Family planning Surgery List: No Surgical History Available Home Meds List: No Home Medications Available Medication Record Reviewed and Updated (See Medication Record): No X. Yes All Allergies (Active and Inactive) Allergen Type Reaction Severity Status active seasonal allergies active No Known Environmental Allergies environment active No Known Drug Allergies medication [id number] Nutrition X. Daily fruits and vegetables Iron Source: Meat. Calcium Source: Milk. Comments: Body Image X. No concerns Comments: Attempting to Gain or Lose Weight X. No Yes: Females Menarche Age: 10. Regular X. Yes No: Menstrual Problems: Bad cramps, heavy bleeding. X. No Yes: Dental Home Child Has a Dental Home No X. Yes: X. Regular visits Brushing Twice Daily Yes X. No: Sleep X. No concerns Discussed: Physical Activity Exercise (60 min/day) X. Yes No: Screen Time Hours / Day: Family Media Use Plan Discussed Yes No School Grade: 12th grade. IEP / 504 / Behavior Plan Yes X. No N/A Performance X. Normal Other: Parent / Teacher Concerns X. None Comments: Activities Softball. Employment X. None Currently Working: Tobacco, Alcohol, and Drug Use X. None Sexual Orientation / Gender Identity Sexual Activity Denies yes Mood X. No concerns DEVELOPMENT X. See Previsit Questionnaire Check if Normal Development: X. Forms caring, supportive relationships with family members, other adults, and peers X. Engages in a positive way with the life of the community X. Engages in behaviors that optimize wellness and contribute to a healthy lifestyle - Engages in healthy nutrition and physical activity behaviors - Chooses safety X. Demonstrates physical, cognitive, emotional, social, and moral competencies X. Exhibits compassion and empathy X. Exhibits resilience when confronted with life stressors X. Uses independent decision-making skills X. Displays a sense of self-confidence, hopefulness, and well-being Concerns: None. SOCIAL AND FAMILY HISTORY Areas Reviewed and Updated as Needed (See Initial History Questionnaire): X. Social history Family history Family History List Alcoholism in family, FATHER Family history of liver disorder, GRANDMOTHER Alcoholism in family, GRANDMOTHER FH: Anemia, MOTHER Smoking Status: Never smoker, Cessation Education: Smoking Household: X. No Yes If Yes, Explain: Changes Since Last Visit: X. No interval change Firearms in Home: X. No Yes If Yes, Explain: Adolescent Lives With: Father/Mother. Relationships With Parents / Siblings: REVIEW OF SYSTEMS X. A 10-point review of systems was performed and results were negative except for any positive results listed below ALL CAPITALIZED = Focus area for this [facility] Visit Constitutional: None. EYES: None. Head, EARS, NOSE, AND THROAT: None. CARDIOVASCULAR: None. RESPIRATORY: None. GASTROINTESTINAL: None. GENITOURINARY: None. MUSCULOSKELETAL: None. SKIN: None. NEUROLOGICAL: None. Other: None. PHYSICAL EXAMINATION ALL CAPITALIZED and = Focus Area for this [facility] Visit GENERAL: x Well-appearing adolescent x Normal BMI and BP for age Other: Eyes: x Pupils equal, round, and reactive to light x Extraocular eye movements intact x Normal funduscopic examination findings Other: Ears, Nose, Mouth, and Throat: x Tympanic membranes with visible light reflex bilaterally x Healthy-appearing teeth without visible caries Other: Neck: x Supple, with full range of motion x No significant adenopathy Other: Heart: x Regular rate and rhythm x No murmur Other: Respiratory: x Breath sounds clear bilaterally x Comfortable work of breathing Other: Abdomen: x Soft x No palpable masses Other: Genitourinary: Normal female external genitalia Normal male external genitalia No hydrocele, hernia, varicocele, or masses No gynecomastia Other: SEXUAL MATURITY RATING: Females Breast Development SMR: Pubic Hair SMR: Males Testicular Development SMR: Pubic Hair SMR: MUSCULOSKELETAL: x Spine straight without significant scoliosis or kyphosis x Full range of motion Other: Neurological: x Normal gait x Normal strength and tone Other: SKIN: x Warm and well perfused No acanthosis nigricans No atypical nevi x No signs of self-injury No lesions or birthmarks Other: Other Comments: ASSESSMENT x Well adolescent x Normal BMI percentile for age x Normal BP for age Comments: ANTICIPATORY GUIDANCE Check if Discussed and/or Handout Given x SOCIAL DETERMINANTS OF HEALTH - Interpersonal violence - Living situation and food security - Family substance use - Connectedness with family, peers and community - School performance - Coping with stress and decision-making x DEVELOPMENT AND MENTAL HEALTH - Family rules and routines, concern for others, and respect for others - Patience and control over anger x PHYSICAL GROWTH AND DEVELOPMENT - Oral health - Body image - Healthy eating - Physical activity and sleep x EMOTIONAL WELL-BEING - Mood regulation and mental health - Sexuality x RISK REDUCTION - and sexually transmitted infections - Tobacco, e-cigarettes, alcohol, and prescription or street drugs - Acoustic trauma SAFETY - Seat belt and helmet use - Sun protection - Substance use and riding in a vehicle - Firearm safety PLAN Immunization List MMR, 07/12/2005 MMR, 09/06/2009 Hep B, adolescent or pediatric, 2004 Hep B, adolescent or pediatric, 2004 IPV, 2004 IPV, 09/24/2005 influenza, split (incl. purified surface antigen), 08/24/2010 Hib, unspecified formulation, 2004 Hib, unspecified formulation, 01/27/2005 Hib, unspecified formulation, 09/24/2005 DTaP, 2004 DTaP, 09/24/2005 varicella, 07/12/2005 varicella, 09/06/2009 influenza, unspecified formulation, 10/31/2006 pneumococcal conjugate PCV 7, 2004 pneumococcal conjugate PCV 7, 01/27/2005 pneumococcal conjugate PCV 7, 09/24/2005 DTaP-Hep B-IPV, 01/27/2005 meningococcal MCV4P, 02/26/2018 meningococcal MCV4P, 06/20/2020 Tdap, 02/26/2018 DTaP-IPV, 09/06/2009 meningococcal MCV4, unspecified formulation, 02/26/2018 influenza, injectable, quadrivalent, preservative free, 02/26/2018 HPV9, 02/26/2018 HPV9, 07/22/2019 COVID-19, mRNA, LNP-S, PF, 30 mcg/0.3 mL dose, 02/21/2021 COVID-19, mRNA, LNP-S, PF, 30 mcg/0.3 mL dose, 03/16/2021 Vaccine Administration Record reviewed Up-to-date for age Administered Today: Comfort Screening Depression Screening (annually) Screening Tool Used: Negative Positive: Tobacco, Alcohol, and Drug Use (annually) Screening Tool Used: Negative Positive: Dyslipidemia Result (once between 17 and 21) Completed Age: Within reference range Abnormal: Follow-up: Hearing Result (once between 15 and 17) Completed Age: Normal hearing BL Abnormal: Follow-up: Vision Result (once age 15) Normal vision for age Abnormal: Follow-up: HIV Result (once between 15 and 18) Completed Age: Negative Positive: Selective Screening (Based on risk assessment) (See Previsit Questionnaire) Anemia Dyslipidemia Hearing Vision HIV Tuberculosis Sexually transmitted infections Comments / Results: Follow-up x Routine follow-up in 1 year Next Visit: Referral to: 16 y/o [facility] - Anticipatory guidance and bright futures discussed. Discussed control methods and will start patient on Anel. Patient to notify office if she is having any side effects. Patient states she is having anxiety, offered multiple options for managing anxiety, patient declines at this time.
--- OUTSIDE RECORDS SUMMARY | 2025-01-05 18:09 | XMS_ITS | Data Portability ---
Author Organization [facility], [facility] Address [address] [place] [address] Assessment No assessment recorded. Plan of Treatment Reminders Order Date Submit Date Provider Last Modified By Organization Details Last Modified Time Details Appointments None recorded. Lab None recorded. Referral None recorded. Procedures None recorded. Surgeries None recorded. Imaging None recorded. Medication Orders Medrol (Rex) 4 mg tablets in a dose pack 2022 023 [facility], [address] [place] [address], [id number], 16:54:18 cyclobenzap rine 5 mg tablet 2022 023 [facility], [facility] [place], [place], [id number], 16:54:27 Patient TargetsNo targets recorded. Patient InstructionsNo instructions recorded. Reason for Referral None Reported. Results Created Date Observation Date Name Description Value Unit Range Abnormal Flag Note LastModifiedBy Organization Detail LastModifiedTime Result Notes None recorded. Problems Name Problem SNOMED Code Status Onset Date Resolution Date Notes Provider Name and Address Organization Details Recorded Time Neck pain 25420157 Active 12/19/19 [facility] 16:44:06 Problem Notes None recorded. Medical Equipment None Reported. Allergies No known drug allergies Medications Name Sig Start Date Stop Date Status Note LastModified by Organization Details LastModified Time methocarbam ol 500 mg tablet active Not Available Not Available Not Available fluconazole 150 mg tablet 12/19 completed Not Available Not Available Not Available acetaminoph en 300 mg-codeine 30 mg tablet active Not Available Not Available Not Available methocarbam ol 750 mg tablet active Not Available Not Available Not Available phenazopyri dine 100 mg tablet active Not Available Not Available Not Available prednisone 50 mg tablet 12/19 completed Not Available Not Available Not Available methylpredn isolone 4 mg tablets in a dose pack take as directed on package active Not Available Not Available No t Available cyclobenzap rine 5 mg tablet Take 1 tablet 3 times a day by oral route as needed for 7 days. 2022 active Not Available Not Available Not Avai lable nitrofurant oin monohydrate /macrocryst als 100 mg capsule active Not Available Not Available Not Available Kurvelo (28) 0.15 mg-0.03 mg tablet active Not Available Not Available Not Available Vitals Date Recorded Body weight Body mass index (BMI) Percentile per age and sex Body mass index (BMI) Body height Pain severity - 0-10 verbal numeric rating [Score] - Reported Respiratory rate Body temperature Heart rate Oxygen saturation Oxygen saturation in Arterial blood by Pulse oximetry Systolic blood pressure Diastolic blood pressure Provider Name and Address Organization Details Last Updated DateTime 3 66731.5 9 g 75 % 24 kg/m2 172.72 cm 8 17 /min 98.7 [degF] 75 /min 100 % 100 % 120 mm[Hg] 70 mm[Hg] Analilia Lemon [facility] 16:21:52 Social History Question Answer Notes LastModified by Organizat ion Details LastModified Time Tobacco Smoking Status Never Smoker Analilia Lemon [facility] 12/19/2022 16:19:49 What Is Your Level Of Alcohol Consumption? None [email or web address] Information not available 12/19/2022 What Is Your Level Of Caffeine Consumption? None [email or web address] Information not available 12/19/2022 In The 14 Days Before Symptom Onset, Have You Had Close Contact With A Laboratory-confir med COVID-19 While That Case Was Ill? No [email or web address] Information not available 12/19/2022 In The 14 Days Before Symptom Onset, Have You Had Close Contact With A Person Who Is Under Investigation For COVID-19 While That Person Was Ill? No [email or web address] Information not available 12/19/2022 Do You Or Have You Ever Used E-cigarettes Or Vape? Former User Of Electronic Cigarettes Quit About 4 Months Ago [email or web address] Information not available 12/19/2022 What Was The Date Of Your Most Recent Tobacco Screening? 12/19/2022 [email or web address] Information not available 12/19/2022 Do You Or Have You Ever Used Smokeless Tobacco? Never Used Smokeless Tobacco [email or web address] Information not available 12/19/2022 Do You Use Any Illicit Or Recreational Drugs? No [email or web address] Information not available 12/19/2022 Have You Recently Traveled Abroad? No [email or web address] Information not available 12/19/2022 Do You Or Have You Ever Used Any Other Forms Of Tobacco Or Nicotine? Yes [email or web address] Information not available 12/19/2022 Sex: Unknown Functional Status None recorded. Mental Status None recorded. Family History Nothing Reported. Medical History No medical history recorded. Gynecological History Statement/Question Response Date of LMP 12/04/2022 Obstetrics History GPAL:G 0 P 0 0 0 0 Immunizations Vaccine Type Date Status Note Provider Nam e and Address Organization Details Recorded Time Hib, unspecified formulation 5 desiree acosta, [facility] 06/20/2023 14:41:02 Hib, unspecified formulation 5 desiree acosta, [facility] 06/20/2023 14:41:02 Hib, unspecified formulation 5 desiree acosta, [facility] 06/20/2023 14:41:02 HPV9 8 desiree Lilly null, [facility] 06/20/2023 14:41:02 HPV9 9 desiree acosta, [facility] 06/20/2023 14:41:02 IPV 5 desiree acosta, [facility] 06/20/2023 14:41:02 IPV 5 desiree acosta, [facility] 06/20/2023 14:41:02 MMR 5 desiree acosta, [facility] 06/20/2023 14:41:02 MMR 9 completed Rebecca Lilly null, [facility] 06/20/2023 14:41:02 COVID-19, mRNA, LNP-S, PF, 30 mcg/0.3 mL dose 1 completed Rebecca Lilly null, [facility] 06/20/2023 14:41:02 COVID-19, mRNA, LNP-S, PF, 30 mcg/0.3 mL dose 1 completed Rebecca Lilly null, [facility] 06/20/2023 14:41:02 pneumococcal conjugate PCV 7 5 completed Rebecca Lilly null, [facility] 06/20/2023 14:41:02 pneumococcal conjugate PCV 7 5 completed Rebecca Lilly null, [facility] 06/20/2023 14:41:02 pneumococcal conjugate PCV 7 5 completed Rebecca Lilly null, [facility] 06/20/2023 14:41:02 DTaP-IPV 9 completed Rebecca Lilly null, [facility] 06/20/2023 14:41:02 influenza, unspecified formulation 6 completed Rebecca Lilly null, [facility] 06/20/2023 14:41:02 Tdap 8 completed Rebecca Lilly null, [facility] 06/20/2023 14:41:02 varicella 5 completed Rebecca Lilly null, [facility] 06/20/2023 14:41:02 varicella 9 completed Rebecca Lilly null, [facility] 06/20/2023 14:41:02 influenza, split (incl. purified surface antigen) 0 completed Rebecca Lilly null, [facility] 06/20/2023 14:41:02 Hep B, adolescent or pediatric 5 desiree Lilly null, [facility] 06/20/2023 14:41:02 Hep B, adolescent or pediatric 4 completed Rebecca Lilly null, [facility] 06/20/2023 14:41:02 meningococcal MCV4P 8 desiree acosta, [facility] 06/20/2023 14:41:02 meningococcal MCV4P 0 desiree acosta, [facility] 06/20/2023 14:41:02 DTaP 5 desiree Rebecca Lilly dave, [facility] 06/20/2023 14:41:02 DTaP 5 desiree Rebeccaandrea Lilly null, [facility] 06/20/2023 14:41:02 DTaP-Hep B-IPV 5 desiree Rebecca Lilly dave, [facility] 06/20/2023 14:41:02 Influenza, split virus, quadrivalent, PF 8 desiree acosta, [facility] 06/20/2023 14:41:02 Past Encounters Encounter ID Performer Location Encounter Start Date Encounter Closed Date Diagnosis/Indication Diagnosis SNOMED-CT Code Diagnosis ICD10 Code Diagnosis Note [id number] Sarbjit Jenkins [address] [address] 12/19/2022 15:59:56 12/19/2022 16:54:35 Neck pain 53047184 M54.2 No radiculopa thy.Trigge r point? Apply ice or heat to affected area PRN. Flexeril 5-10 mg PRN for muscle spasm. Risks/bene fits and alternativ es discussed. Recommende d avoiding positions or activity that aggravates the pain. Daily good back mechanics reviewed with patient, good posture, stretches given and reviewed with patient. Physical therapy/Ch iropractic s recommende d for stretching and strengthen ing. Follow up in 3-4 weeks if symptoms do no improve. Follow up sooner or go to ER for any new or worsening symptoms. Patient agreed with plan. Counseled on and verbalized understand ing of plan and adverse effects. Health Concerns Section Related Observation LastModified by Organization Detai ls LastModified Time None Recorded Concern Status LastModified by Organization Details LastModified Time None Recorded Advance Directives Directive None Recorded Payers Encounter Date Sequence Insurance Name Policy Number Policy Rivers Covered Member ID Rivers Member ID Guarantor Name 12/19/2022 1 [facility] (MEDICAID HMO) [id number] Lani Ho [id number] Lani Ho Notes Date Note Type Note Provider Name and Address Organization Details Recorded Time 12/19/2022 text/html 17 y/o female presents to office with c/o upper back pain, burning sensation in shoulder, and neck that also send painful shocks that travel. Pt stated sometimes can not feel her back when pain starts. Symptoms have been worse for about 2 days but present for 5 days. She states she first noticed it while at work.Pt has tried otc ibuprofen but has not helped. Started happening when working long shift at work, or when driving for over 5 mins. Pt will need a school due to missing school yesterday, and today. Sarbjit acosta, [facility] 12/19/2022 16:51:04 OBGyn Episode No OBEpisode recorded.
--- OUTSIDE RECORDS SUMMARY | 2025-01-05 18:10 | XMS_ITS ---
Author Organization Unknown Address [address] [place] [address] [phone] Phone Care Team Providers Care Finish Opener Name Role Phone Blanco Gallego Attending Unavailable [...] em Smoking History Never smoker (Never Smoked) 429557401 SNOMED CT Sex Female Sexual Orientation Straight or Heterosexual 83489976 SNOMED CT Gender Identity Female [id number] Medications Medication Start Date End Date Route Frequency Dose Code Code System Medication Instructions Home Meds Medrol Dosepak 4MG Oral Tablet 12/25/2022 02/20/2023 By Mouth As Directed 1 PACK 947016 RxNorm 1 PACK By Mouth As Directed Methocarbamol 750MG Oral Tablet 12/25/2022 03/12/2023 By Mouth As needed every 8 hr 125547 RxNorm 1-2 TABLET By Mouth As needed every 8 hr Anel-28 30 MCG-0.15 MG; NA Oral Tablet 12/25/2022 03/12/2023 By Mouth Daily 1 TABLET 999104 RxNorm 1 TABLET By Mouth Daily Macrobid 100MG Oral Capsule 02/20/2023 03/12/2023 By mouth Twice a day 1 TABLET 316798 RxNorm 1 TABLET By mouth Twice a day X 7 DAYS Pyridium 100MG Oral Tablet 02/20/2023 03/12/2023 By mouth As needed every 8 hr 1 TABLET 5381268 RxNorm 1 TABLET By mouth As needed every 8 hr for urinary pain ZyrTEC Allergy 10MG Oral Capsule, Liquid Filled 03/12/2023 Unknown By Mouth Daily 1 CAPSULE 1862771 RxNorm 1 CAPSULE By Mouth Daily Fluticasone 0.05MG/1Actuati on Nasal [place] 03/12/2023 Unknown Nasal Daily 1 Sprays 1354645 RxNorm 1 Spr ays Nasal Daily Azithromycin 500MG Oral Tablet 06/04/2024 Unknown By Mouth x1 NOW 2 TABLET 771672 RxNorm 2 TABLET By Mouth x1 NOW [...] Status Code Code System SEASONAL ALLERGY active 906454282 SNO MED-CT FAMILY PLANNING 06/20/2020 active 043372091 SNO MED-CT BITE OF INSECT active 496328035 SNOME D-CT ES OF VAGINA 08/07/2022 active 32972231 S NOMED-CT MENORRHAGIA active 415538648 SNOMED-C T PAINFUL NECK active 35168161 SNOMED- CT ADHD OF CHILDHOOD 07/22/2019 resolved 567821448 S NOMED-CT SEASONAL NASAL ALLERGY 07/22/2019 resolved 812373 001 SNOMED-CT HISTORY OF CHICKENPOX 07/22/2019 resolved 1913105 08 SNOMED-CT Allergies and Adverse Reactions Allergy Substance Reaction Severity Start Date Concern Status Co de Code System Active seasonal allergies Active No Known Drug Allergies Active 175146075 SNOMED-CT No Known Drug Allergies Active 783378409 SNOMED-CT Plan of Treatment Description Due Date Details Instructions DEPRESSION SCREENING DUE 06/20/2021 Personal Care Team Section Performer Name Performer Role Active Date Inactive David mccallum
--- OUTSIDE RECORDS SUMMARY | 2025-01-05 18:10 | XMS_ITS ---
Author Organization Unknown Address [address] [place] [address] [phone] Phone Care Team Providers Care Cooperative Education Director Name Role Phone Blanco Gallego Attending Unavailable [...] mL dose 03/16/2021 Completed 208 CVX Results COVID RAPID ANTIGEN - Collec t Date/Time: 03/12/2023 14:51 [facility] ID: [id number] [address] [place], [place], [phone] LOINC: 6556-5 Test Value Unit Reference Range Code Code System Flag COVID RAPID ANTI NEGATIVE NORMAL: NEGATIVE LOT#: [id number] Exp Date: 12/07/2023 QC: ACCEPTABLE STREP A SCREEN - Collect Sha e/Time: 03/12/2023 14:50 [facility] ID: [id number] [address] [place], [place], [id number] LOINC: 6556-5 Test Value Unit Reference Range Code Code System Flag STREP SCREEN NEGATIVE NORMAL: NEGATIVE 6556-5 LOINC Lot#: [id number] Exp Date: 04/10/2024 QC STREP ACCEPTABLE Social History Type Status Start Date End Date Code Code Syst em Smoking History Never smoker (Never Smoked) 446934659 SNOMED CT Sex Female Sexual Orientation Straight or Heterosexual 28155959 SNOMED CT Gender Identity Female [id number] [address] Vital Signs Vital Sign Value Unit Oxford Value Oxford Unit Date/Time Recent/Initial? Code Code System Body Mass Index 23.57 kg/m2 03/12/2023 14:40 Initial 52282 -5 LOINC Body Mass Index Percentile 71 % 03/12/2023 14:40 Initial 43343 -9 LOINC Systolic Blood Pressure 100 mm[Hg] 03/12/2023 14:40 Initial 8480- 6 LOINC Diastolic Blood Pressure 68 mm[Hg] 03/12/2023 14:40 Initial 8462- 4 LOINC Body Surface Area 1.84 m2 03/12/2023 14:40 Initial 3140- 1 LOINC Height 172.720 0 cm 68.00 in 03/12/2023 14:40 Initial 8302- 2 INC O2 Saturation 95 % 2022 14:40 Initial 09899 -5 LOINC Pulse 56.0 /min 03/12/2023 14:40 Initial 8867- 4 LOINC Respiration 16 /min 03/12/20 14:40 Initial 9279- 1 LOINC Temperature 37.5 Antonella 99.5 F 03/12/20 14:40 Initial 8310- 5 INC Weight 70.31 kg 155.00 lbs 03/12/2023 14:40 Initial 92480 -7 [facility] Medications Medication Start Date End Date Route Frequency Dose Code Code System Medication Instructions Home Meds Methocarbamol 750MG Oral Tablet 12/25/2022 03/12/2023 By Mouth As needed every 8 hr 911694 RxNorm 1-2 TABLET By Mouth As needed every 8 hr Anel-28 30 MCG-0.15 MG; NA Oral Tablet 12/25/2022 03/12/2023 By Mouth Daily 1 TABLET 258026 RxNorm 1 TABLET By Mouth Daily Macrobid 100MG Oral Capsule 02/20/2023 03/12/2023 By mouth Twice a day 1 TABLET 376303 RxNorm 1 TABLET By mouth Twice a day X 7 DAYS Pyridium 100MG Oral Tablet 02/20/2023 03/12/2023 By mouth As needed every 8 hr 1 TABLET 9832507 RxNorm 1 TABLET By mouth As needed every 8 hr for urinary pain ZyrTEC Allergy 10MG Oral Capsule, Liquid Filled 03/12/2023 Unknown By Mouth Daily 1 CAPSULE 4482267 RxNorm 1 CAPSULE By Mouth Daily Fluticasone 0.05MG/1Actuati on Nasal [place] 03/12/2023 Unknown Nasal Daily 1 Sprays 3742617 RxNorm 1 Spr ays Nasal Daily Azithromycin 500MG Oral Tablet 06/04/2024 Unknown By Mouth x1 NOW 2 TABLET 300338 RxNorm 2 TABLET By Mouth x1 NOW Assessment You had the following problems:SEASONAL ALLERGYFAMILY PLANNINGBITE OF INSECTCANDIDA OF VAGINAMENORRHAGIAPAINFUL NECK Assessment/Plan: 1. Seasonal Allergies - Negative covid and strep tests. Most likely seasonal allergies. School note given. Start Zyrtec and flonase Return to clinic PRN Hospital Discharge Instructions Should you have any questions prior to discharge, please contact a member of your healthcare team. If you have left the hospital and have any questions, please contact your primary care physician. Reason For Referral No Data Found Problems Problem Start Date Resolved Date Status Code Code System SEASONAL ALLERGY active 929036049 SNO MED-CT FAMILY PLANNING 06/20/2020 active 294225463 SNO MED-CT BITE OF INSECT active 449513052 SNOME D-CT ES OF VAGINA 08/07/2022 active 30188608 S NOMED-CT MENORRHAGIA active 956052639 SNOMED-C T PAINFUL NECK active 28994196 SNOMED- CT ADHD OF CHILDHOOD 07/22/2019 resolved 693496797 S NOMED-CT SEASONAL NASAL ALLERGY 07/22/2019 resolved 010196 001 SNOMED-CT HISTORY OF CHICKENPOX 07/22/2019 resolved 2254053 08 SNOMED-CT Allergies and Adverse Reactions Allergy Substance Reaction Severity Start Date Concern Status Co de Code System Active seasonal allergies Active No Known Drug Allergies Active 972728632 SNOMED-CT No Known Drug Allergies Active 301421078 SNOMED-CT Plan of Treatment Description Due Date Details Instructions DEPRESSION SCREENING DUE 06/20/2021 Encounters Encounter Diagnosis Start Date Code Code Sys tem Seasonal allergic rhinitis 03/12/2023 715663497 S NOMED-CT Personal Care Team Section Performer Name Performer Role Active Date Inactive Da te Progress Notes [facility] 03/12/2023 15:06 Admission Date/Time: 03/12/2023 11:24 [facility] Visit Note Chief Complaint: ST & COUGH Has the patient received a COVID Vaccine? Has had 2 covid vaccines Nurse Note: this nurse note is documented by Riki Santoro LPN Depression Screening PHQ9 completed by the patient. See scanned image. PHQ-9 Total Score: If score >=5, indicate Plan: Score Assessment: 0-4= not an indicator or depression, 5-9=mild depression, 10-14=moderate depression, 15-19=moderately severe depression, 20-27=severe depression. History of Present Illness: Pt is an 17 yo female presents to [facility] today for sore throat and cough. Pt states 2 days ago she started with sore throat, headache, nasal drainage and productive cough. Denies body aches, fever, ear issues or shortness of breath. States has not been taking anything for her symptoms. Allergy Table Allergen Type Reaction seasonal allergies No Known Environmental Allergies environment Vital Signs: This Visit HtWt Date/Time BP (mm/Hg) BP Position/Site Heart Rate Resp Temp (F) SPO2% Pain Score Height (in) Weight (lbs/ozs) BMI Head Cir (cm) 03/12/2023 14:40 100/68 Sitting/Left Arm 56 16 99.5 Temporal Scanning 95 % 68 in 155 lbs 23.57 PHYSICAL EXAM: General - no acute distress. HEENT - Pupils equal and reactive to light and accommodation, tympanic membranes clear, no pharyngeal exudate, no cervical lymphadenopathy Heart - Regular rate and rhythm, no murmurs Lungs - Clear to auscultation bilaterally Abdomen - Bowel sounds positive, non-distended, non-tender, soft, no hepatosplenomegaly Extremities - no edema bilaterally Lab Results: This Visit: No Labs Available Assessment/Plan: 1. Seasonal Allergies - Negative covid and strep tests. Most likely seasonal allergies. School note given. Start Zyrtec and flonase Return to clinic PRN - total minutes were spent on this calendar date on these patient specific activities: (james all that occurred) x Documenting clinical information in the electronic health record x Counseling and education to the patient/family/caregiver Preparation to see the patient by reviewing test result x Ordered medications, tests or procedures Preparation to see the patient by reviewing outside records Referring and communicating with other health medicare coordinator x Obtaining and/or reviewing separately obtained history Independent interpretation of results and communicating results to the patient/family/caregiver x Performing a medically appropriate examination/evaluation Care coordination (not reported separately) x Discharge instructions given to patient. Ordered & Completed Meds Table: No Current Medications Available Discharge Med List: Discharge Medications: No Discharge Medications Available [facility] 03/12/2023 15:20 Current Date/Time: 03/12/2023 15:03 Patient Name: NELA MANZANARES was seen at [facility] [phone] on Date of Service: 03/12/2023 . They may return to school on 03/13/2023 with No restrictions . .
--- OUTSIDE RECORDS SUMMARY | 2025-01-05 18:10 | XMS_ITS | Clinical Summary ---
Author Organization [facility] Address [address] [place] [address] Care Team Providers Care Electrical Instrumentation Technician Name Role Phone Faustino Matta MD Primary Care Provider [phone] Source Comments [facility],non-owned Affiliates and Associated Physician Practices is amultiple site organization consisting of ambulatory clinics and hospital sitesin [place], [place], [place] and [place]. This disclosure is being madepursuant to the Care Everywhere program and may not contain all information available regarding this patient. Last updated 18.[facility] Allergies No known active allergies Medications * Be aware that medications may not be up to date on this document. Alwaysverify current medications with the patient. Medication Sig Dispensed Refills Start Date End Date Status Vit-Fe Fumarate-FA ( vitamin) 28-0.8 MG tablet Take 1 (one) tablet by mouth once daily Active Active Problems Problem Noted Date Diagnosed Date Abnormal genetic test in 08/12/2024 Rubella non-immune status, antepartum 08/12/2024 Rh negative, antepartum 08/12/2024 Estimated Date of Delivery Comme nts Yes 02/07/2025 Based on Ultraso und Encounters Date Type Department Care Team Description 12/15/2024 Telephone [facility] [address] [place] [address] Akosua Burns Appointment 11/24/2024 Orders Only [facility] - COATER OPERATOR [address] [place] [address] Jennifer Paul MD 11/19/2024 1:00 PM WOODWORKING BENCH CARPENTER - 11/19/2024 11:59 PM WOODWORKING BENCH CARPENTER Hospital Encounter [facility] [address] [place] [address] Tiff Arriaza MD Discharge Disposition: Home or Self Care 11/03/2024 Orders Only [facility] [address] [place] [address] Britany Garcia, SHOE REPAIRER HELPER-DANCE DIRECTOR Abnormal genetic test in ; Abnormal ultrasound 11/02/2024 Orders Only [facility] [address] [place] [address] Shania Mcintosh RN 11/02/2024 Telephone [facility] [address] [place] [address] Britany Garcia, SHOE REPAIRER HELPER-DANCE DIRECTOR LABS ONLY 10/26/2024 Telephone [facility] [address] [place] [address] Akosua Burns Appointment 10/21/2024 1:57 PM WOODWORKING BENCH CARPENTER - 10/21/2024 11:59 PM WOODWORKING BENCH CARPENTER Hospital Encounter [facility] [address] [place] [address] Jonny Reese MD Discharge Disposition: Home or Self Care 10/21/2024 Telephone [facility] [address] [place] [address] Diamond Rosenberg RN Order from Last 3 Months Family History Relation Name Status Comments Father Alive Maternal Grandfather Maternal Grandmother Mother Alive Other 1 Fetus - In Utero high risk N IPT XXY Other 2 [place]illa Alive Other 3 Alive Other 4 Alive Other 5 Alive Other 6 Alive Other 7 Alive Other 8 Alive Other 9 Alive Other 10 Alive Other 11 Alive Paternal Grandfather Paternal Grandmother half-brother 1 Alive half-brother 2 Alive half-brother 3 Alive half-brother 4 Alive half-sister 1 Alive half-sister 2 Alive half-sister 3 Alive Social History Tobacco Use Types Packs/Day Years Used Date Smoking Tobacco: Never Smokeless Tobacco: Never Alcohol Use Standard Drinks/Week Comments Not Currently 0 (1 standard drink = 0.6 oz pur e alcohol) Estimated Date of Delivery Comme nts Yes 02/07/2025 Based on Ultraso und Sex and Gender Information Value Date Recorded Sex Assigned at Not on file Gender Identity Not on file Sexual Orientation Not on file Last Filed Vital Signs Vital Sign Reading Time Taken Comments Blood Pressure 119/66 08/12/2024 2:33 PM CDT Pulse 85 08/12/2024 2:33 PM CDT Temperature 36.6 C (97.8 F) 08/05/2012 7:21 AM CDT Respiratory Rate 18 08/12/2024 2:33 PM CDT Oxygen Saturation 100% 08/05/2012 7:21 AM CDT Inhaled Oxygen Concentration - - Weight 73.5 kg (162 lb) 08/12/2024 2:33 PM CDT Height 172.7 cm (5' 8 ) 08/12/2024 2:33 PM CDT Body Mass Index 24.63 08/12/2024 2:33 PM CDT Plan of Treatment Health Maintenance Due Date Last Done Comments HIV SCREENING 2019 HPV VACCINE (1 - 3-dose series) 2019 CHLAMYDIA/GONORRHEA SCREENING 2020 MENINGOCOCCAL (Group B) VACCINE (1 of 2 - Standard) 2020 HEPATITIS C SCREENING 06/12/2022 DTAP/TDAP/TD VACCINES (1 - Tdap) 2023 HEPATITIS B VACCINE (1 of 3 - 19+ 3-dose series) 2023 COVID-19 VACCINE (3 - 2023-2 5 season) 2024 03/16/2021, 02/21/2021 INFLUENZA VACCINE (#1) 2024 8, 08/24/2010, 10/31/2006 OB-ONE HOUR GLUCOSE 11/01/2024 OB-TDAP CURRENT 11/08/2024 DEPRESSION SCREENING 11/11/2024 OB-RHOGAM INJECTION 11/15/2024 OB-GROUP B STREP SCREEN 01/03/2025 ZOSTER VACCINE (1 of 2) 2054 HIB VACCINE Aged Out No longer eligi ble based on patient's age to complete this topic MENINGOCOCCAL VACCINE Aged Out No bulmaro nina eligible based on patient's age to complete this topic PNEUMOCOCCAL VACCINE Aged Out No long er eligible based on patient's age to complete this topic Respiratory Syncytial Virus (RSV) Vaccine Pt: or over 60 yrs (No Doses Required) Completed Procedures Procedure Name Priority Date/Time Associated Diagnosis Comments CYTOMEGALOVIRUS AB IGG AVIDITY 11/24/2024 2:44 PM WOODWORKING BENCH CARPENTER SONOGRAM - COMPLETE Routine 11/19/2024 1 :11 PM WOODWORKING BENCH CARPENTER Encounter for ultrasound (HCC) Rh negative, antepartum (HCC) Rubella non-immune status, antepartum (HCC) Primigravida, antepartum (HCC) 28 weeks gestation of (HCC) Genetic anomalies of leukocytes (HCC) Abnormal genetic test in CYTOMEGALOVIRUS ANTIBODY IGG BLOOD 11/10/2024 1:50 PM WOODWORKING BENCH CARPENTER SONOGRAM - COMPLETE Routine 10/21/2024 2 :51 PM WOODWORKING BENCH CARPENTER Encounter for ultrasound (HCC) Rh negative, antepartum (HCC) Rubella non-immune status, antepartum (HCC) Primigravida, antepartum (HCC) Abnormal genetic test in 24 weeks gestation of (HCC) from Last 3 Months Results * CYTOMEGALOVIRUS AB IGG AVIDITY (11/24/2024 2:44 PM WOODWORKING BENCH CARPENTER) Pathologist [facility] Cytomegalovirus Antibody IgG Avidity Index 0.90 [facility] Comment: REFERENCE RANGE: >0.70 INTERPRETIVE CRITERIA: <0.60 Low Avidity Index 0.60 - 0.70 Intermediate Avidity Index >0.70 High Avidity Index Discrimination between recent (primary) and past cytomegalovirus (CMV) infection can be an important tool in the clinical management of women. Although nearly all individuals with recent CMV infection are positive for CMV IgM, individuals with past CMV may also express CMV IgM due to long-term IgM persistence or viral reactivation; thus, detection of CMV IgM is not a reliable indicator of recent CMV infection. Measurement of CMV IgG avidity can assist in discriminating recent from past CMV infection. A low avidity index is a reliable indicator of CMV infection within the previous 6 months, a high avidity index essentially excludes the possibility that infection occurred within the previous 4 months. Avidity index values should be considered within the context of other laboratory findings and clinical signs. This test was developed and its analytical performance characteristics have been determined by [employer]. It has not been cleared or approved by FDA. This assay has been validated pursuant to the CLIA regulations and is used for clinical purposes. For additional information, please refer to http://education.TopCoder/faq/OYY287 (This link is being provided for informational/ educational purposes only.) Test Performed at: [facility] [address] [place] [address] KWAKU SUMMERS MD,PHD,STARR 11/24/2024 2:44 PM WOODWORKING BENCH CARPENTER 11/24/2024 2:45 PM WOODWORKING BENCH CARPENTER Jennifer Paul MD LAB - SEROLOGY [facility] [address] [place] [address] * SONOGRAM - COMPLETE (11/19/2024 1:11 PM WOODWORKING BENCH CARPENTER) Only the most recent of2 resultswithin the time period is included. 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 Weight 81 kg, 178 lb. Initial weight 74 kg, 164 lb. BMI 27.06 kg/m . Initial BMI 24.94 kg/m . Weight gain 6 kg, 14 lb Method ====== Transabdominal ultrasound. View: Good view ========= [place] . Number of fetuses: 1 Dating ====== Date Details Gest. age TAYE Stated TAYE 28 w + 4 d 02/07/2025 Previous U/S 06/23/2024 GA, GA 7 w + 2 d 28 w + 4 d 02/07/2025 U/S 11/19/2024 based upon AC, BPD, Femur, HC 30 w + 6 d 01/22/2025 Assigned dating based on ultrasound (GA), selected on 09/23/2024 28 w + 4 d 02/07/2025 General Evaluation Cardiac activity present. FHR 149 bpm. Presentation: cephalic Placenta: Placental site: posterior Umbilical cord: Cord vessels: 3 vessel cord Amniotic fluid: Amount of AF: normal, normal. MVP 4.1 cm. FATIMAH 13.1 cm. Q1 4.1 cm, Q2 3.1 cm, Q3 2.1 cm, Q4 3.8 cm Biometry BPD 77.6 mm 31w 1d 97% Hadlock HC 288.9 mm 31w 6d 96% Hadlock AC 265.9 mm 30w 5d 94% Hadlock Femur 56.1 mm 29w 4d 62% Hadlock Humerus 53.2 mm 31w 0d 95% Briana HC / AC 1.09 Weight Calculation: EFW 1,578 g 94% Hadlock EFW (lb,oz) 3 lb 8 oz EFW by Hadlock ([id number]) appropriate Growth Overview Exam date GA BPD (mm) HC (mm) AC (mm) FL (mm) HL (mm) EFW (g) 09/23/2024 20w 3d 49.6 73% 186.7 67% 158.6 63% 34.8 61% 35.3 95% 391 74% 10/21/2024 24w 3d 63.6 85% 241.5 89% 222.7 95% 46.9 75% 44.1 91% 907 98% 11/19/2024 28w 4d 77.6 97% 288.9 96% 265.9 94% 56.1 62% 53.2 95% 1578 94% Anatomy The following structures appear normal: Abdomen Stomach. Kidneys. Bladder. Bowel. sex: male. Impression ========= Single, live, intrauterine at 28w 4d size is appropriate Amniotic fluid volume normal The bowel does not appear echogenic. There are several small echogenicities within the placenta that are of uncertain significance. No major malformations were seen within the limits of ultrasound Follow-up ======== Follow up ultrasound in 4 weeks for growth assessment is recommended. Patient to get repeat redraw of CMV Avidity Coding ====== Procedures 59861: US Preg Uterus Follow Up [facility] [place] PACS Anatomical Region Laterality Modality Other 11/19/2024 1:11 PM WOODWORKING BENCH CARPENTER Jonny Cabrera DO [employer] ORDERABLES * (ABNORMAL) CYTOMEGALOVIRUS ANTIBODY IGG BLOOD (11/10/2024 1:50 PM WOODWORKING BENCH CARPENTER) Cytomegalovirus Antibody IgG >10.00(H) U/mL [facility] Comment: U/mL Interpretation ----- <0.60 Negative 0.60-0.69 Equivocal > or = 0.70 Positive A positive result indicates that the patient has antibody to CMV. It does not differentiate between an active or past infection. Test Performed at: [facility] [address] [place] [address] PINEDA TAM MD 11/10/2024 1:50 PM WOODWORKING BENCH CARPENTER 11/10/2024 1:53 PM WOODWORKING BENCH CARPENTER Britany Garcia SHOE REPAIRER HELPER-DANCE DIRECTOR LAB - CHEMI STRY ORDERABLES [facility] [address] [place] [address] from Last 3 Months Care Teams Electrical Instrumentation Technician Relationship Specialty Start Date End Date Faustino Matta MD [address] [address] PCP - General Pediatrics 08/05/12
--- OUTSIDE RECORDS SUMMARY | 2025-01-05 18:10 | XMS_ITS | Referral Summary ---
Author Organization [facility] Address [address] [place] [address] Care Team Providers Care Home Supervisor Name Role Phone Faustino Matta MD Primary Care Provider [phone] Source Comments [facility],non-owned Affiliates and Associated Physician Practices is amultiple site organization consisting of ambulatory clinics and hospital sitesin [place], [place], [place] and [place]. This disclosure is being madepursuant to the Care Everywhere program and may not contain all information available regarding this patient. Last updated 18.[facility] Encounters Date Type Department Care Team Description 12/15/2024 Telephone [facility] [address] [place] [address] Akosua Burns Appointment 11/24/2024 Orders Only [facility] - CROP SETTING OUT MACHINE OPERATOR [address] [place] [phone] Jennifer Paul MD 11/19/2024 1:00 PM BUS PERSON - 11/19/2024 11:59 PM BUS PERSON Hospital Encounter [facility] [address] [place] [address] Tiff Arriaza MD Discharge Disposition: Home or Self Care 11/03/2024 Orders Only [facility] [address] [place] [address] Britany Garcia, HEAVY EQUIPMENT ENGINE MECHANIC-ICE SKATING TEACHER Abnormal genetic test in ; Abnormal ultrasound 11/02/2024 Orders Only [facility] [place] [address] Shania Mcintosh RN 11/02/2024 Telephone [facility] [address] [place] [address] Britany Garcia, HEAVY EQUIPMENT ENGINE MECHANIC-ICE SKATING TEACHER LABS ONLY 10/26/2024 Telephone [facility] [address] [place] [address] Akosua Burns Appointment 10/21/2024 Telephone [facility] [address] [place] [address] Diamond Rosenberg RN Order 10/21/2024 1:57 PM BUS PERSON - 10/21/2024 11:59 PM BUS PERSON Hospital Encounter [facility] [address] [place] [address] Jonny Reese MD Discharge Disposition: Home or Self Care from Last 3 Months Allergies No known active allergies Medications * [...] nts Yes 02/07/2025 Based on Ultraso und Social History Tobacco Use Types Packs/Day Years [...] 08/12/2024 2:33 PM CDT Plan of Treatment Not on file Procedures Procedure Name Priority Date/Time Associated Diagnosis Comments CYTOMEGALOVIRUS AB IGG AVIDITY 11/24/2024 2:44 PM BUS PERSON SONOGRAM - COMPLETE Routine 11/19/2024 1 :11 PM BUS PERSON Encounter for ultrasound (HCC) Rh negative, antepartum (HCC) Rubella non-immune status, antepartum (HCC) Primigravida, antepartum (HCC) 28 weeks gestation of (HCC) Genetic anomalies of leukocytes (HCC) Abnormal genetic test in CYTOMEGALOVIRUS ANTIBODY IGG BLOOD 11/10/2024 1:50 PM BUS PERSON SONOGRAM - COMPLETE Routine 10/21/2024 2 :51 PM BUS PERSON Encounter for ultrasound (HCC) Rh negative, antepartum (HCC) Rubella non-immune status, antepartum (HCC) Primigravida, antepartum (HCC) Abnormal genetic test in 24 weeks gestation of (HCC) from Last 3 Months Results * CYTOMEGALOVIRUS AB IGG AVIDITY (11/24/2024 2:44 PM BUS PERSON) Cytomegalovirus Antibody IgG Avidity Index 0.90 [facility] [...] analytical performance characteristics have been determined by [employer]. It has not been cleared or approved by FDA. This assay has been validated pursuant to the CLIA regulations and is used for clinical purposes. For additional information, please refer to http://education.[employer].com/faq/NBF632 (This link is being provided for informational/ educational purposes only.) Test Performed at: [facility] [address] [place] [address] KWAKU SUMMERS MD,PHD,STARR 11/24/2024 2:44 PM BUS PERSON 11/24/2024 2:45 PM BUS PERSON Jennifer Paul MD LAB - SEROLOGY [facility] [address] [place] [address] * SONOGRAM - COMPLETE (11/19/2024 1:11 PM BUS PERSON) Only the most recent of2 resultswithin the time period is included. 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 on 10/21/2024 CMV IgG: positive, Avidity: pending redraw GCT: failed History ====== OB History 1 Lab Tests Test Date Result NIPT High-risk for XXY (Rin) Maternal Assessment Physical Exam Height 173 cm, [...] 3 lb 8 oz EFW by Hadlock (DOP-LY-XW-FL) appropriate Growth Overview Exam date [place] BPD [...] redraw of CMV Avidity Coding ====== Procedures 86164: US Preg Uterus Follow Up ealeyes 3D PACS Anatomical Region Laterality Modality Other 11/19/2024 1:11 PM BUS PERSON Jonny Cabrera DO [facility] ORDERABLES * (ABNORMAL) CYTOMEGALOVIRUS ANTIBODY IGG BLOOD (11/10/2024 1:50 PM BUS PERSON) Cytomegalovirus Antibody IgG >10.00(H) U/mL [facility] Comment: U/mL Interpretation ----- <0.60 Negative 0.60-0.69 Equivocal > or = 0.70 Positive A positive result indicates that the patient has antibody to CMV. It does not differentiate between an active or past infection. Test Performed at: [facility] [address] [place] [address] PINEDA TAM MD 11/10/2024 1:50 PM BUS PERSON 11/10/2024 1:53 PM BUS PERSON Britany Garcia HEAVY EQUIPMENT ENGINE MECHANIC-ICE SKATING TEACHER LAB - CHEMI STRY ORDERABLES [facility] [address] [place] [address] from Last 3 Months Care Teams Home Supervisor Relationship Specialty Start Date End Date Faustino Matta MD [address] [place] [address] PCP - General Pediatrics 08/05/12
--- OUTSIDE RECORDS SUMMARY | 2025-01-05 18:10 | XMS_ITS ---
Author Organization Unknown Address [address] [place], [place] [id number] Phone Care Team Providers Care Survey Manager Name Role Phone JOSUE FULTON [place] Attending Unavailable Results CULTURE YEAST, WITH IDENTIFI CATION - Collect Date/Time: 02/20/2023 18:42 [facility] ID: [id number] [address] [place], [place], [phone] LOINC: 5048-4 Test Value Unit Reference Range Code Code System Flag SOURCE: VAGINAL STATUS: FINAL ISOLATE 1: Margoth albicans A TRICHOMONAS VAGINALIS FEMALE RNA QUAL - Collect Date/Time: 02/20/2023 18:40 [facility] ID: [id number] [address], [place], [phone] LOINC: 84631-6 Test Value Unit Reference Range Code Code System Flag TRICHOMONAS VAGINALISRNA, QL TMA NOT DETECTED NOT DETECTED GC/CHLAMYDIA PCR [facility] ct Date/Time: 02/20/2023 18:40 [facility] ID: [id number] [address], [place], [phone] LOINC: 5048-4 Test Value Unit Reference Range Code Code System Flag GONORRHEA PCR NOT DETECTED NORMAL: NOT DETECTED CHLAMYDIA PCR NOT DETECTED NORMAL: NOT DETECTED BACTERIAL VAGINOSIS RAPID TE ST - Collect Date/Time: 02/20/2023 18:40 [facility] ID: [id number] [address], [place], [phone] LOINC: 6410-5 Test Value Unit Reference Range Code Code System Flag BACTERIAL VAGINOSIS NEGATIVE NORMAL: NEGATIVE Social History Type Status Start Date End Date Code Code Syst em Smoking History Never smoker (Never Smoked) 056138393 SNOMED CT Sex Female Sexual Orientation Straight or Heterosexual 54509471 SNOMED CT Gender Identity Female [id number] [address] Medications Medication Start Date End Date Route Frequency Dose Code Code System Medication Instructions Home Meds Methocarbamol 750MG Oral Tablet 12/25/2022 03/12/2023 By Mouth As needed every 8 hr 418647 RxNorm 1-2 TABLET By Mouth As needed every 8 hr Anel-28 30 MCG-0.15 MG; NA Oral Tablet 12/25/2022 03/12/2023 By Mouth Daily 1 TABLET 945601 RxNorm 1 TABLET By Mouth Daily Macrobid 100MG Oral Capsule 02/20/2023 03/12/2023 By mouth Twice a day 1 TABLET 048991 RxNorm 1 TABLET By mouth Twice a day X 7 DAYS Pyridium 100MG Oral Tablet 02/20/2023 03/12/2023 By mouth As needed every 8 hr 1 TABLET 3557717 RxNorm 1 TABLET By mouth As needed every 8 hr for urinary pain ZyrTEC Allergy 10MG Oral Capsule, Liquid Filled 03/12/2023 Unknown By Mouth Daily 1 CAPSULE 4799678 RxNorm 1 CAPSULE By Mouth Daily Fluticasone 0.05MG/1Actuati on Nasal Can[place] 03/12/2023 Unknown Nasal Daily 1 Sprays 6455642 RxNorm 1 Spr ays Nasal Daily Azithromycin 500MG Oral Tablet 06/04/2024 Unknown By Mouth x1 NOW 2 TABLET 110249 RxNorm 2 TABLET By Mouth x1 NOW [...] Status Code Code System SEASONAL ALLERGY active 675198857 SNO MED-CT FAMILY PLANNING 06/20/2020 active 734257925 SNO MED-CT BITE OF INSECT active 298678265 SNOME D-CT MARGOTH OF VAGINA 08/07/2022 active 90493913 S NOMED-CT MENORRHAGIA active 904747197 SNOMED-C T PAINFUL NECK active 28651074 SNOMED- CT ADHD OF CHILDHOOD 07/22/2019 resolved 007471904 S NOMED-CT SEASONAL NASAL ALLERGY 07/22/2019 resolved 291312 001 SNOMED-CT HISTORY OF CHICKENPOX 07/22/2019 resolved 1613163 08 SNOMED-CT Allergies and Adverse Reactions Allergy Substance Reaction Severity Start Date Concern Status Co de Code System Active seasonal allergies Active No Known Drug Allergies Active 664112260 SNOMED-CT No Known Drug Allergies Active 224085249 SNOMED-CT Plan of Treatment Description Due Date Details Instructions DEPRESSION SCREENING DUE 06/20/2021 Encounters Encounter Diagnosis Start Date Code Code Sys tem Dysuria 02/20/2023 88075099 SNOMED-CT Personal Care Team Section Performer Name Performer Role Active Date Inactive Da xena
--- OUTSIDE RECORDS SUMMARY | 2025-01-05 18:11 | XMS_ITS ---
Author Organization Unknown Address [address] [place], [place] [id number] Phone Care Team Providers Care Bank Vault Attendant Name Role Phone Shahanacristian Opal Attending Unavailable Results BACTERIAL VAGINOSIS RAPID TE ST - Collect Date/Time: 07/31/2022 17:20 [facility] ID: [id number] [address] [place], [place], [address] LOINC: 6410-5 Test Value Unit Reference Range Code Code System Flag BACTERIAL VAGINOSIS NEGATIVE NORMAL: NEGATIVE CULTURE YEAST, WITH IDENTIFI CATION - Collect Date/Time: 07/31/2022 17:19 [facility] ID: [id number] [address] [place], [place], [address] LOINC: 5048-4 Test Value Unit Reference Range Code Code System Flag SOURCE: VAGINAL STATUS: FINAL ISOLATE 1: Margoth albicans A CULTURE: Culture in progress TRICHOMONAS VAGINALIS FEMALE RNA QUAL - Collect Date/Time: 07/31/2022 17:19 [facility] ID: [id number] [address] [place], [place], [address] LOINC: 22030-8 Test Value Unit Reference Range Code Code System Flag TRICHOMONAS VAGINALISRNA, QL TMA NOT DETECTED NOT DETECTED CHLAMYDIA/GC URINE RNA, TMA APTIMA - Collect Date/Time: 07/31/2022 17:19 [facility] ID: [id number] [address] [place], [place], [address] LOINC: 5048-4 Test Value Unit Reference Range Code Code System Flag CHLAMYDIA TRACHOMATISRNA, TMA, UROGENITAL NOT DETECTED NOT DETECTED NEISSERIA GONORRHOEAERNA, TMA, UROGENITAL NOT DETECTED NOT DETECTED Social History Type Status Start Date End Date Code Code Syst em Smoking History Never smoker (Never Smoked) 054821122 SNOMED CT Sex Female Sexual Orientation Straight or Heterosexual 30900938 SNOMED CT Gender Identity Female [id number] [address] Medications Medication Start Date End Date Route Frequency Dose Code Code System Medication Instructions Home Meds Anel-28 30MCG-0.15MG-NA Oral Tablet 06/07/2022 09/12/2022 By Mouth Daily 1 TABLET 064249 RxNorm 1 TABLET By Mouth Daily Diflucan 150MG Oral Tablet 08/07/2022 09/12/2022 By Mouth x1 NOW 1 TABLET RxNorm 1 TABLET By Mouth x1 NOW FOR MARCH REPEAT IN 72 HOURS Radha 28 3MG-0.02MG Oral Tablet 09/12/2022 12/25/2022 By Mouth Once a day 1 TABLET RxNorm 1 TABLET By Mouth Once a day Medrol Dosepak 4MG Oral Tablet 12/25/2022 02/20/2023 By Mouth As Directed 1 PACK 963959 RxNorm 1 PACK By Mouth As Directed Methocarbamol 750MG Oral Tablet 12/25/2022 03/12/2023 By Mouth As needed every 8 hr 833579 RxNorm 1-2 TABLET By Mouth As needed every 8 hr [place]-28 30 MCG-0.15 MG; NA Oral Tablet 12/25/2022 03/12/2023 By Mouth Daily 1 TABLET 837800 RxNorm 1 TABLET By Mouth Daily Macrobid 100MG Oral Capsule 02/20/2023 03/12/2023 By mouth Twice a day 1 TABLET 255394 RxNorm 1 TABLET By mouth Twice a day X 7 DAYS Pyridium 100MG Oral Tablet 02/20/2023 03/12/2023 By mouth As needed every 8 hr 1 TABLET 2938878 RxNorm 1 TABLET By mouth As needed every 8 hr for urinary pain ZyrTEC Allergy 10MG Oral Capsule, Liquid Filled 03/12/2023 Unknown By Mouth Daily 1 CAPSULE 5333938 RxNorm 1 CAPSULE By Mouth Daily Fluticasone 0.05MG/1Actuatio n Nasal [place] 03/12/2023 Unknown Nasal Daily 1 Sprays 0813640 RxNorm 1 Spra ys Nasal Daily Azithromycin 500MG Oral Tablet 06/04/2024 Unknown By Mouth x1 NOW 2 TABLET 869137 RxNorm 2 TABLET By Mouth x1 NOW [...] Status Code Code System SEASONAL ALLERGY active 660760681 SNO MED-CT FAMILY PLANNING 06/20/2020 active 900981217 SNO MED-CT BITE OF INSECT active 598258734 SNOME D-CT MARGOTH OF VAGINA 08/07/2022 active 60781801 S NOMED-CT MENORRHAGIA active 104286753 SNOMED-C T PAINFUL NECK active 95544860 SNOMED- CT ADHD OF CHILDHOOD 07/22/2019 resolved 174108363 S NOMED-CT SEASONAL NASAL ALLERGY 07/22/2019 resolved 043660 001 SNOMED-CT HISTORY OF CHICKENPOX 07/22/2019 resolved 2670828 08 SNOMED-CT Allergies and Adverse Reactions Allergy Substance Reaction Severity Start Date Concern Status Co de Code System Active seasonal allergies Active No Known Drug Allergies Active 921723929 SNOMED-CT No Known Drug Allergies Active 141856197 SNOMED-CT Plan of Treatment Description Due Date Details Instructions DEPRESSION SCREENING DUE 06/20/2021 Encounters Encounter Diagnosis Start Date Code Code Sys tem Noninflammatory disorder of the vagina 07/31/2022 22 464658 SNOMED-CT Personal Care Team Section Performer Name Performer Role Active Date Inactive Da te
--- OUTSIDE RECORDS SUMMARY | 2025-01-05 18:11 | XMS_ITS ---
Author Organization Unknown Address [address] [place] [address] [phone] Phone Care Team Providers Care Branch Examiner Name Role Phone VIRAL Brody Attending Unavailable ATIYA Lezama MD Primary Unavailable [...] NON-AUTO W/O MICR O - Collect Date/Time: 06/03/2024 15:21 [facility] ED ID: [id number] [address] [place] [address], [id number] LOINC: Test Value Unit Reference Range Code Code System Flag TEST NAME URINALYSIS Color YELLOW Clarity CLEAR Spec Grav 1.020 NORMAL: 1.001-1.035 PH 5.0 NORMAL: 5 - 6 Leuk Est NEGATIVE NORMAL: NEGATIVE Nitrates Negative NORMAL: NEGATIVE Protein NEGATIVE NORMAL: NEGATIVE Glucose NEGATIVE NORMAL: NEGATIVE Manual Clinitest PERFORMED Ketones NEGATIVE NORMAL: NEGATIVE Urobilinogen NORMAL NORMAL: 0-1 mg/dl Bilirubin NEGATIVE NORMAL: NEGATIVE Blood NEGATIVE NORMAL: NEGATIVE Social History Type Status Start Date End Date Code Code Syst em Smoking History Never smoker (Never Smoked) 347110011 SNOMED CT Sex Female Sexual Orientation Straight or Heterosexual 02141169 SNOMED CT Gender Identity Female [id number] Vital Signs Vital Sign Value Unit Bonner Value Bonner Unit Date/Time Recent/Initial? Code Code System Body Mass Index 25.85 kg/m2 06/03/2024 14:31 Initial 12758 -5 [facility] Body Mass Index Percentile 82 % 06/03/2024 14:31 Initial 78502 -9 [facility] Systolic Blood Pressure 118 mm[Hg] 06/03/2024 15:46 Most Recent 8480- 6 [facility] Diastolic Blood Pressure 82 mm[Hg] 06/03/2024 15:46 Most Recent 8462- 4 [facility] Systolic Blood Pressure 136 mm[Hg] 06/03/2024 14:31 Initial 8480- 6 [facility] Diastolic Blood Pressure 95 mm[Hg] 06/03/2024 14:31 Initial 8462- 4 [facility] Body Surface Area 1.92 m2 06/03/2024 14:31 Initial 3140- 1 [facility] Height 172.720 0 cm 68.00 in 06/03/2024 14:31 Initial 8302- 2 [facility] O2 Saturation 100 % 2023 14:31 Initial 26793 -5 [facility] Pulse 93.0 /min 06/03/2024 14:31 Initial 8867- 4 [facility] Temperature 36.7 Antonella 98.0 F 06/03/20 14:31 Initial 8310- 5 [facility] Weight 77.11 kg 170.00 lbs 06/03/2024 14:31 Initial 64140 -7 [facility] Medications Medication Start Date End Date Route Frequency Dose Code Code System Medication Instructions Home Meds ZyrTEC Allergy 10MG Oral Capsule, Liquid Filled 03/12/2023 Unknown By Mouth Daily 1 CAPSULE 6448227 RxNorm 1 CAPSULE By Mouth Daily Fluticasone 0.05MG/1Actuatio n Nasal [place] 03/12/2023 Unknown Nasal Daily 1 Sprays 7285598 RxNorm 1 Spra ys Nasal Daily Azithromycin 500MG Oral Tablet 06/04/2024 Unknown By Mouth x1 NOW 2 TABLET 818019 RxNorm 2 TABLET By Mouth x1 NOW Assessment You had the following problems:SEASONAL ALLERGYFAMILY PLANNINGBITE OF INSECTCANDIDA OF VAGINAMENORRHAGIAPAINFUL NECK Diagnostics: Urinalysis with culture and sensitivity. Urine GC test, urine chlamydia test, urine trich testing. Vaginal self-collection for yeast and BV. Assessment/Plan: 1. Acute Vaginosis, mild -Discussed treatment but patient wants to wait for results. -No sexual contact until all tests are completed and resulted and all indicated treatment, if any, is completed. -If any STD tests are positive inform all partners or discuss with your local health department and provide names of sexual partners so they can ensure appropriate treatment. -Use condoms when resuming sex. -Avoid vaginal douching. 2. High Risk Sexual Behavior -HIV, HSV and hepatitis testing ordered. -Encouraged safe sex practices. 3. -Keep follow up with [facility] for next week. -Given handouts for morning sickness and safe medications. 4. Concern for abdominal mass, RUQ -Abdominal exam normal. No palpable tenderness or masses noted. -Discussed that she is most likely feeling her abdominal muscles, however, if she begins to experience pain recommend follow up with PCP. Differentials: STI, UTI, bacterial vaginosis, vaginal yeast infection Follow-up: PCP or CC in 2 days if not improving, otherwise follow-up with PCP as needed. ER if any symptoms become severe. * This plan has been reviewed with the patient. Questions and concerns addressed. Patient verbalized understanding of the treatment plan and the need for follow up. This examination was transcribed using the [employer] voice recognition system without a human shoe maker. To expedite patient care, this report has not been adjusted for typographical, or medical, or syntax by a trained medical historian. Hospital Discharge Instructions Should you have any questions prior to discharge, please contact a member of your healthcare team. If you have left the hospital and have any questions, please contact your primary care physician. Reason For Referral No Data Found Problems Problem Start Date Resolved Date Status Code Code System SEASONAL ALLERGY active 601452707 SNO MED-CT FAMILY PLANNING 06/20/2020 active 276607100 SNO MED-CT BITE OF INSECT active 204324608 SNOME D-CT ES OF VAGINA 08/07/2022 active 88128158 S NOMED-CT MENORRHAGIA active 115851094 SNOMED-C T PAINFUL NECK active 52478093 SNOMED- CT ADHD OF CHILDHOOD 07/22/2019 resolved 511079391 S NOMED-CT SEASONAL NASAL ALLERGY 07/22/2019 resolved 422074 001 SNOMED-CT HISTORY OF CHICKENPOX 07/22/2019 resolved 5732220 08 SNOMED-CT Allergies and Adverse Reactions Allergy Substance Reaction Severity Start Date Concern Status Co de Code System Active seasonal allergies Active No Known Drug Allergies Active 957924698 SNOMED-CT No Known Drug Allergies Active 047831484 SNOMED-CT Plan of Treatment Description Due Date Details Instructions DEPRESSION SCREENING DUE 06/20/2021 Future Order Description Future Order Date Futu re Order Loinc: TRICHOMONAS VAGINALIS FEMALE RNA QUAL LOINC: 14321-4 GC PCR [facility] 06/03/2024 LOINC: 96297-6 CHLAMYDIA PCR [facility] 06/03/2024 LOINC: 28712- 5 BACTERIAL VAGINOSIS RAPID TEST 06/03/2024 LOINC: 6410-5 CULTURE YEAST, WITH IDENTIFICATION 06/03/2024 LOINC: 02652-5 Encounters Encounter Diagnosis Start Date Code Code Sys tem Acute vaginitis 06/03/2024 39983175 SNOMED-CT Personal Care Team Section Performer Name Performer Role Active Date Inactive Da te Progress Notes [facility] 06/03/2024 15:50 Date of Service: 06/03/2024 [facility] Visit IMELDA Valderrama Chief Complaint: LUMP ON STOMACH History of Present Illness: Age: 18 years The patient is a 18-year-old female presenting to [facility] today for evaluation of right upper side abdominal lump and vaginal discharge with odor and clear/white discharge. She reports she is currently 4-6 weeks with LMP at the beginning of April. She has an appointment scheduled with [facility] for an OBGYN next week. She denies any urinary symptoms, vaginal bleeding or uterine cramping. She is sexually active and not using condoms. She has not used any OTC medications. Patient denies fever/chills, headache, dizziness, ear pain, nasal congestion/drainage, sore throat, cough, chest pain/tightness/heaviness, shortness of breath, wheezing, abdominal pain, and/or nausea/vomiting/diarrhea. PCP is Dr. Andersen. Tobacco use: vapes Marijuana use: denies Allergy Table Allergen Type Reaction No Known Environmental Allergies Environment No Known Drug Allergies Medication Vital Signs: This Visit HtWt Date/Time BP (mm/Hg) BP Position/Site Heart Rate Resp Temp (F) SPO2% Pain Score Height (in) Weight (lbs/ozs) BMI Head Cir (cm) 06/03/2024 15:46 118/82 Sitting/Left Arm 06/03/2024 14:31 136/95 Sitting/Right Arm 93 98 Tympanic 100 % 68 in 170.0 25.85 PHYSICAL EXAM: GENERAL: Alert, well-appearing, in no acute distress. nontoxic. RESPIRATORY: Normal respiratory effort. Lungs were clear to auscultation. CARDIOVASCULAR: Heart regular rate and rhythm without murmurs or gallops. ABDOMEN: Soft, non-distended, non-tender. Bowel sounds were normal. No hepatosplenomegaly. No rebound or guarding. No CVA or suprapubic tenderness noted. NEUROLOGIC: Alert and oriented. Speech clear. Responding appropriately to exam. Moving extremities equally. Gait steady. SKIN: warm and dry, well perfused. Capillary refill less than 3 seconds. PSYCHIATRIC: Cooperative. Normal memory. Conversant, normal affect. Lab Results: This Visit Test Results Units Reference Range Ordered Collected Status TEST NAME URINALYSIS URINALYSIS 06/03/2024 15:21 06/03/2024 15:21 final Color YELLOW YELLOW 06/03/2024 15:21 06/03/2024 15:21 final Clarity CLEAR CLEAR 06/03/2024 15:21 06/03/2024 15:21 final Spec Grav 1.020 1.020 NORMAL: 1.001-1.035 06/03/2024 15:21 06/03/2024 15:21 final PH 5.0 5.0 NORMAL: 5 - 6 06/03/2024 15:21 06/03/2024 15:21 final Leuk Est NEGATIVE NEGATIVE NORMAL: NEGATIVE 06/03/2024 15:21 06/03/2024 15:21 final Nitrates Negative Negative NORMAL: NEGATIVE 06/03/2024 15:21 06/03/2024 15:21 final Protein NEGATIVE NEGATIVE NORMAL: NEGATIVE 06/03/2024 15:21 06/03/2024 15:21 final Glucose NEGATIVE NEGATIVE NORMAL: NEGATIVE 06/03/2024 15:21 06/03/2024 15:21 final Manual Clinitest PERFORMED PERFORMED 06/03/2024 15:21 06/03/2024 15:21 final Ketones NEGATIVE NEGATIVE NORMAL: NEGATIVE 06/03/2024 15:21 06/03/2024 15:21 final Urobilinogen NORMAL NORMAL NORMAL: 0-1 mg/dl 06/03/2024 15:21 06/03/2024 15:21 final Bilirubin NEGATIVE NEGATIVE NORMAL: NEGATIVE 06/03/2024 15:21 06/03/2024 15:21 final Blood NEGATIVE NEGATIVE NORMAL: NEGATIVE 06/03/2024 15:21 06/03/2024 15:21 final Diagnostics: Urinalysis with culture and sensitivity. Urine GC test, urine chlamydia test, urine trich testing. Vaginal self-collection for yeast and BV. Assessment/Plan: 1. Acute Vaginosis, mild -Discussed treatment but patient wants to wait for results. -No sexual contact until all tests are completed and resulted and all indicated treatment, if any, is completed. -If any STD tests are positive inform all partners or discuss with your local health department and provide names of sexual partners so they can ensure appropriate treatment. -Use condoms when resuming sex. -Avoid vaginal douching. 2. High Risk Sexual Behavior -HIV, HSV and hepatitis testing ordered. -Encouraged safe sex practices. 3. -Keep follow up with [facility] for next week. -Given handouts for morning sickness and safe medications. 4. Concern for abdominal mass, RUQ -Abdominal exam normal. No palpable tenderness or masses noted. -Discussed that she is most likely feeling her abdominal muscles, however, if she begins to experience pain recommend follow up with PCP. Differentials: STI, UTI, bacterial vaginosis, vaginal yeast infection Follow-up: PCP or CC in 2 days if not improving, otherwise follow-up with PCP as needed. ER if any symptoms become severe. * This plan has been reviewed with the patient. Questions and concerns addressed. Patient verbalized understanding of the treatment plan and the need for follow up. This examination was transcribed using the [employer] voice recognition system without a human shoe maker. To expedite patient care, this report has not been adjusted for typographical, or medical, or syntax by a trained medical historian. Meds Given This Visit: Meds ordered and administered this visit: No Current Medications Available Discharge Med List: Discharge Medications Medication Special Instructions Start Date Prescribing Fluticasone 0.05MG/1Actuation Nasal [place] 1 Sprays Nasal Daily 03/12/2023 Blanco Gallego ZyrTEC Allergy 10MG Oral Capsule, Liquid Filled 1 CAPSULE By Mouth Daily 03/12/2023 Blanco Gallego
--- OUTSIDE RECORDS SUMMARY | 2025-01-05 18:11 | XMS_ITS ---
Author Organization Unknown Address [address] [place] [address] [phone] Phone Care Team Providers Care Curtain Fitter Name Role Phone ATIYA Lezama MD Attending [...] em Smoking History Never smoker (Never Smoked) 961180095 SNOMED CT Sex Female Sexual Orientation Straight or Heterosexual 28855341 SNOMED CT Gender Identity Female [id number] [address] Medications Medication Start Date End Date Route Frequency Dose Code Code System Medication Instructions Home Meds Radha 28 3MG-0.02MG Oral Tablet 09/12/2022 12/25/2022 By Mouth Once a day 1 TABLET RxNorm 1 TABLET By Mouth Once a day Medrol Dosepak 4MG Oral Tablet 12/25/2022 02/20/2023 By Mouth As Directed 1 PACK 967087 RxNorm 1 PACK By Mouth As Directed Methocarbamol 750MG Oral Tablet 12/25/2022 03/12/2023 By Mouth As needed every 8 hr 053407 RxNorm 1-2 TABLET By Mouth As needed every 8 hr Anel-28 30 MCG-0.15 MG; NA Oral Tablet 12/25/2022 03/12/2023 By Mouth Daily 1 TABLET 359044 RxNorm 1 TABLET By Mouth Daily Macrobid 100MG Oral Capsule 02/20/2023 03/12/2023 By mouth Twice a day 1 TABLET 757339 RxNorm 1 TABLET By mouth Twice a day X 7 DAYS Pyridium 100MG Oral Tablet 02/20/2023 03/12/2023 By mouth As needed every 8 hr 1 TABLET 7541284 RxNorm 1 TABLET By mouth As needed every 8 hr for urinary pain ZyrTEC Allergy 10MG Oral Capsule, Liquid Filled 03/12/2023 Unknown By Mouth Daily 1 CAPSULE 6830012 RxNorm 1 CAPSULE By Mouth Daily Fluticasone 0.05MG/1Actuati on Nasal [place] 03/12/2023 Unknown Nasal Daily 1 Sprays 3906983 RxNorm 1 Spr ays Nasal Daily Azithromycin 500MG Oral Tablet 06/04/2024 Unknown By Mouth x1 NOW 2 TABLET 164840 RxNorm 2 TABLET By Mouth x1 NOW [...] Status Code Code System SEASONAL ALLERGY active 769142633 SNO MED-CT FAMILY PLANNING 06/20/2020 active 419250225 SNO MED-CT BITE OF INSECT active 484596199 SNOME D-CT ES OF VAGINA 08/07/2022 active 93532385 S NOMED-CT MENORRHAGIA active 404498026 SNOMED-C T PAINFUL NECK active 85133002 SNOMED- CT ADHD OF CHILDHOOD 07/22/2019 resolved 802624549 S NOMED-CT SEASONAL NASAL ALLERGY 07/22/2019 resolved 784484 001 SNOMED-CT HISTORY OF CHICKENPOX 07/22/2019 resolved 7394034 08 SNOMED-CT Allergies and Adverse Reactions Allergy Substance Reaction Severity Start Date Concern Status Co de Code System Active seasonal allergies Active No Known Drug Allergies Active 239817394 SNOMED-CT No Known Drug Allergies Active 475788089 SNOMED-CT Plan of Treatment Description Due Date Details Instructions DEPRESSION SCREENING DUE 06/20/2021 Personal Care Team Section Performer Name Performer Role Active Date Inactive David mccallum
--- OUTSIDE RECORDS SUMMARY | 2025-01-05 18:11 | XMS_ITS ---
Author Organization Unknown Address [address] [place] [address] [phone] Phone Care Team Providers Care Metal Cleaner Name Role Phone Blanco Gallego Attending Unavailable [...] em Smoking History Never smoker (Never Smoked) 673848383 SNOMED CT Sex Female Sexual Orientation Straight or Heterosexual 55543572 SNOMED CT Gender Identity Female [id number] [address] Medications Medication Start Date End Date Route Frequency Dose Code Code System Medication Instructions Home Meds ZyrTEC Allergy 10MG Oral Capsule, Liquid Filled 03/12/2023 Unknown By Mouth Daily 1 CAPSULE 1138504 RxNorm 1 CAPSULE By Mouth Daily Fluticasone 0.05MG/1Actuatio n Nasal [place] 03/12/2023 Unknown Nasal Daily 1 Sprays 8841100 RxNorm 1 Spra ys Nasal Daily Azithromycin 500MG Oral Tablet 06/04/2024 Unknown By Mouth x1 NOW 2 TABLET 013596 RxNorm 2 TABLET By Mouth x1 NOW [...] Status Code Code System SEASONAL ALLERGY active 253379970 SNO MED-CT FAMILY PLANNING 06/20/2020 active 538999863 SNO MED-CT BITE OF INSECT active 977877276 SNOME D-CT ES OF VAGINA 08/07/2022 active 17262319 S NOMED-CT MENORRHAGIA active 729945621 SNOMED-C T PAINFUL NECK active 70371363 SNOMED- CT ADHD OF CHILDHOOD 07/22/2019 resolved 833974804 S NOMED-CT SEASONAL NASAL ALLERGY 07/22/2019 resolved 962553 001 SNOMED-CT HISTORY OF CHICKENPOX 07/22/2019 resolved 9074510 08 SNOMED-CT Allergies and Adverse Reactions Allergy Substance Reaction Severity Start Date Concern Status Co de Code System Active seasonal allergies Active No Known Drug Allergies Active 149063362 SNOMED-CT No Known Drug Allergies Active 449247433 SNOMED-CT Plan of Treatment Description Due Date Details Instructions DEPRESSION SCREENING DUE 06/20/2021 Personal Care Team Section Performer Name Performer Role Active Date Inactive Da xena
--- OUTSIDE RECORDS SUMMARY | 2025-01-05 18:11 | XMS_ITS | Patient Health Summary ---
Author Organization [facility] Address [address] [place] [address] Care Team Providers Care Weatherization Specialist Name Role Phone Faustino Matta MD Primary Care Provider Note from [facility],non-owned Affiliates and Associated Physician Practices is amultiple site organization consisting of ambulatory clinics and hospital sitesin [place], [place], [place] and [place]. This disclosure is being madepursuant to the Care Everywhere program and may not contain all information available regarding this patient. Last updated 18.[facility] Allergies No known active allergies Medications * Be aware that medications may not be up to date on this document. Alwaysverify current medications with the patient. * Vit-Fe Fumarate-FA ( vitamin) 28-0.8 MG tablet Take 1 (one) tablet by mouth once daily Active Problems Problem Noted Date Diagnosed Date Abnormal genetic test in 08/12/2024 Rubella non-immune status, antepartum 08/12/2024 Rh negative, antepartum 08/12/2024 Social History Tobacco Use Types Packs/Day Years [...] Mass Index 24.63 08/12/2024 2:33 PM CDT Procedures * CYTOMEGALOVIRUS AB IGG AVIDITY(Performed 11/24/2024) * SONOGRAM - COMPLETE(Performed 11/19/2024) Performed for Encounter for ultrasound (HCC), Rh negative, antepartum (HCC), Rubella non-immune status, antepartum (HCC), Primigravida, antepartum (HCC), 28 weeks gestation of (HCC), Genetic anomalies of leukocytes (HCC), Abnormal genetic test in * CYTOMEGALOVIRUS ANTIBODY IGG BLOOD(Performed 11/10/2024) * SONOGRAM - COMPLETE(Performed 10/21/2024) Performed for Encounter for ultrasound (HCC), Rh negative, antepartum (HCC), Rubella non-immune status, antepartum (HCC), Primigravida, antepartum (HCC), Abnormal genetic test in , 24 weeks gestation of (HCC) * SONOGRAM - COMPLETE(Performed 09/23/2024) Performed for Abnormal genetic test in , Rh negative, antepartum (HCC), Rubella non-immunestatus, antepartum (HCC), Primigravida, antepartum (HCC), 20 weeks gestation of (HCC) * SONOGRAM - COMPLETE(Performed 08/12/2024) Performed for Primigravida, antepartum (HCC), Rh negative, antepartum (HCC), Rubella non-immune status, antepartum (HCC), Abnormal genetic test in , Encounter for ultrasound (HCC), 14 weeks gestation of (HCC) Results * CYTOMEGALOVIRUS AB IGG AVIDITY (11/24/2024 2:44 PM DIRECTOR OF REVENUE CYCLE MANAGEMENT) [facility] Cytomegalovirus Antibody IgG Avidity Index 0.90 [...] analytical performance characteristics have been determined by [employer]. It has not been cleared or approved by FDA. This assay has been validated pursuant to the CLIA regulations and is used for clinical purposes. For additional information, please refer to http://education.INFUSD/faq/DBS364 (This link is being provided for informational/ educational purposes only.) Test Performed at: [facility] [address] [place] [address] KWAKU SUMMERS MD,PHD,STARR 11/24/2024 2:44 PM DIRECTOR OF REVENUE CYCLE MANAGEMENT 11/24/2024 2:45 PM DIRECTOR OF REVENUE CYCLE MANAGEMENT Jennifer Paul MD LAB - SEROLOGY [facility] [address] [place] [address] * SONOGRAM - COMPLETE (11/19/2024 1:11 PM DIRECTOR OF REVENUE CYCLE MANAGEMENT) Only the most recent of4 resultswithin the time period is included. Linked [...] 1 Dating ====== Date Details Gest. age ATYE Stated TAYE 28 w + 4 d [...] 3 lb 8 oz EFW by Hadlock (BLM-VI-YL-FL) appropriate Growth Overview Exam date [place] BPD [...] redraw of CMV Avidity Coding ====== Procedures 84699: US Preg Uterus Follow Up [facility] PACS Anatomical Region Laterality Modality Other 11/19/2024 1:11 PM DIRECTOR OF REVENUE CYCLE MANAGEMENT Jonny Cabrera DO [facility] ORDERABLES * (ABNORMAL) CYTOMEGALOVIRUS ANTIBODY IGG BLOOD (11/10/2024 1:50 PM DIRECTOR OF REVENUE CYCLE MANAGEMENT) Cytomegalovirus Antibody IgG >10.00(H) U/mL [facility] Comment: U/mL Interpretation ----- <0.60 Negative 0.60-0.69 Equivocal > or = 0.70 Positive A positive result indicates that the patient has antibody to CMV. It does not differentiate between an active or past infection. Test Performed at: [facility] [address] [place] [address] PINEDA TAM MD 11/10/2024 1:50 PM DIRECTOR OF REVENUE CYCLE MANAGEMENT 11/10/2024 1:53 PM DIRECTOR OF REVENUE CYCLE MANAGEMENT Britany Garcia APRN-[facility] - CHEMI STRY ORDERABLES [facility] [address] [place] [address] Care Teams Weatherization Specialist Relationship Specialty Start Date End Date Faustino Matta MD [address] [facility] [address] [place] [address] PCP - General Pediatrics 08/05/12
--- OUTSIDE RECORDS SUMMARY | 2025-01-05 18:11 | XMS_ITS ---
Author Organization Unknown Address [address] [place] [address] [phone] Phone Care Team Providers Care Shaft Repairer Name Role Phone TABATHA RODGERS Attending Unavailable ATIYA Lezama MD Primary Unavailable [...] em Smoking History Never smoker (Never Smoked) 674033596 SNOMED CT Sex Female Sexual Orientation Straight or Heterosexual 37590214 SNOMED CT Gender Identity Female [id number] [address] Medications Medication Start Date End Date Route Frequency Dose Code Code System Medication Instructions Home Meds predniSONE 50MG Oral Tablet 06/07/2022 07/31/2022 By Mouth Daily 1 TABLET 653638 RxNorm 1 TABLET By Mouth Daily [place]-28 30MCG-0.15MG-NA Oral Tablet 06/07/2022 09/12/2022 By Mouth Daily 1 TABLET 894906 RxNorm 1 TABLET By Mouth Daily Diflucan 150MG Oral Tablet 08/07/2022 09/12/2022 By Mouth x1 NOW 1 TABLET 091419 RxNorm 1 TABLET By Mouth x1 NOW FOR MARCH REPEAT IN 72 HOURS Radha 28 3MG-0.02MG Oral Tablet 09/12/2022 12/25/2022 By Mouth Once a day 1 TABLET RxNorm 1 TABLET By Mouth Once a day Medrol Dosepak 4MG Oral Tablet 12/25/2022 02/20/2023 By Mouth As Directed 1 PACK 655182 RxNorm 1 PACK By Mouth As Directed Methocarbamol 750MG Oral Tablet 12/25/2022 03/12/2023 By Mouth As needed every 8 hr 665917 RxNorm 1-2 TABLET By Mouth As needed every 8 hr Anel-28 30 MCG-0.15 MG; NA Oral Tablet 12/25/2022 03/12/2023 By Mouth Daily 1 TABLET 869573 RxNorm 1 TABLET By Mouth Daily Macrobid 100MG Oral Capsule 02/20/2023 03/12/2023 By mouth Twice a day 1 TABLET 400985 RxNorm 1 TABLET By mouth Twice a day X 7 DAYS Pyridium 100MG Oral Tablet 02/20/2023 03/12/2023 By mouth As needed every 8 hr 1 TABLET 7183569 RxNorm 1 TABLET By mouth As needed every 8 hr for urinary pain ZyrTEC Allergy 10MG Oral Capsule, Liquid Filled 03/12/2023 Unknown By Mouth Daily 1 CAPSULE 6290243 RxNorm 1 CAPSULE By Mouth Daily Fluticasone 0.05MG/1Actuati on Nasal [place] 03/12/2023 Unknown Nasal Daily 1 Sprays 1261600 RxNorm 1 Spr ays Nasal Daily Azithromycin 500MG Oral Tablet 06/04/2024 Unknown By Mouth x1 NOW 2 TABLET 734630 RxNorm 2 TABLET By Mouth x1 NOW [...] Status Code Code System SEASONAL ALLERGY active 776678191 SNO MED-CT FAMILY PLANNING 06/20/2020 active 373951823 SNO MED-CT BITE OF INSECT active 466766919 SNOME D-CT ES OF VAGINA 08/07/2022 active 48706928 S NOMED-CT MENORRHAGIA active 129750231 SNOMED-C T PAINFUL NECK active 76310971 SNOMED- CT ADHD OF CHILDHOOD 07/22/2019 resolved 781358894 S NOMED-CT SEASONAL NASAL ALLERGY 07/22/2019 resolved 341755 001 SNOMED-CT HISTORY OF CHICKENPOX 07/22/2019 resolved 5575372 08 SNOMED-CT Allergies and Adverse Reactions Allergy Substance Reaction Severity Start Date Concern Status Co de Code System Active seasonal allergies Active No Known Drug Allergies Active 298719959 SNOMED-CT No Known Drug Allergies Active 523504581 SNOMED-CT Plan of Treatment Description Due Date Details Instructions DEPRESSION SCREENING DUE 06/20/2021 Personal Care Team Section Performer Name Performer Role Active Date Inactive David mccallum
--- OUTSIDE RECORDS SUMMARY | 2025-01-05 18:12 | XMS_ITS ---
Author Organization Unknown Address [address] [place] [address] [phone] Phone Care Team Providers Care Rural Carrier Associate Name Role Phone Blanco Gallego Attending Unavailable [...] em Smoking History Never smoker (Never Smoked) 685713527 SNOMED CT Sex Female Sexual Orientation Straight or Heterosexual 13144663 SNOMED CT Gender Identity Female [id number] [address] Vital Signs Vital Sign Value Unit [place] Value [place] Unit Date/Time Recent/Initial? Code Code System Body Mass Index 23.87 kg/m2 12/25/2022 13:33 Initial 54364 -5 [facility] Body Mass Index Percentile 74 % 12/25/2022 13:33 Initial 24876 -9 [facility] Systolic Blood Pressure 106 mm[Hg] 12/25/2022 13:33 Initial 8480- 6 [facility] Diastolic Blood Pressure 72 mm[Hg] 12/25/2022 13:33 Initial 8462- 4 [facility] Body Surface Area 1.85 m2 12/25/2022 13:33 Initial 3140- 1 [facility] Height 172.720 0 cm 68.00 in 12/25/2022 13:33 Initial 8302- 2 [facility] O2 Saturation 100 % 2022 13:33 Initial 21804 -5 [facility] Pulse 82.0 /min 12/25/2022 13:33 Initial 8867- 4 [facility] Respiration 16 /min 12/25/19 13:33 Initial 9279- 1 [facility] Temperature 37.0 Antonella 98.6 F 12/25/19 13:33 Initial 8310- 5 [facility] Weight 71.21 kg 157.00 lbs 12/25/2022 13:33 Initial 64787 -7 [facility] Medications Medication Start Date End Date Route Frequency Dose Code Code System Medication Instructions Home Meds Radha 28 3MG-0.02MG Oral Tablet 09/12/2022 12/25/2022 By Mouth Once a day 1 TABLET RxNorm 1 TABLET By Mouth Once a day Medrol Dosepak 4MG Oral Tablet 12/25/2022 02/20/2023 By Mouth As Directed 1 PACK 051504 RxNorm 1 PACK By Mouth As Directed Methocarbamol 750MG Oral Tablet 12/25/2022 03/12/2023 By Mouth As needed every 8 hr 463760 RxNorm 1-2 TABLET By Mouth As needed every 8 hr Anel-28 30 MCG-0.15 MG; NA Oral Tablet 12/25/2022 03/12/2023 By Mouth Daily 1 TABLET 127738 RxNorm 1 TABLET By Mouth Daily Macrobid 100MG Oral Capsule 02/20/2023 03/12/2023 By mouth Twice a day 1 TABLET 990456 RxNorm 1 TABLET By mouth Twice a day X 7 DAYS Pyridium 100MG Oral Tablet 02/20/2023 03/12/2023 By mouth As needed every 8 hr 1 TABLET 8639449 RxNorm 1 TABLET By mouth As needed every 8 hr for urinary pain ZyrTEC Allergy 10MG Oral Capsule, Liquid Filled 03/12/2023 Unknown By Mouth Daily 1 CAPSULE 9802597 RxNorm 1 CAPSULE By Mouth Daily Fluticasone 0.05MG/1Actuati on Nasal [place] 03/12/2023 Unknown Nasal Daily 1 Sprays 5697119 RxNorm 1 Spr ays Nasal Daily Azithromycin 500MG Oral Tablet 06/04/2024 Unknown By Mouth x1 NOW 2 TABLET 040497 RxNorm 2 TABLET By Mouth x1 NOW Assessment You had the following problems:SEASONAL ALLERGYFAMILY PLANNINGBITE OF INSECTCANDIDA OF VAGINAMENORRHAGIAPAINFUL NECK Assessment/Plan: 1. Left upper back pain - Start steroids and muscle relaxer. Patient denies need for school note. 2. Contraceptive management - Patient requesting to restart Anel, will restart at this time Return to clinic PRN Hospital Discharge Instructions Should you have any questions prior to discharge, please contact a member of your healthcare team. If you have left the hospital and have any questions, please contact your primary care physician. Reason For Referral No Data Found Problems Problem Start Date Resolved Date Status Code Code System SEASONAL ALLERGY active 154844778 SNO MED-CT FAMILY PLANNING 06/20/2020 active 871212128 SNO MED-CT BITE OF INSECT active 627835406 SNOME D-CT ES OF VAGINA 08/07/2022 active 12936069 S NOMED-CT MENORRHAGIA active 253549312 SNOMED-C T PAINFUL NECK active 32937311 SNOMED- CT ADHD OF CHILDHOOD 07/22/2019 resolved 723210898 S NOMED-CT SEASONAL NASAL ALLERGY 07/22/2019 resolved 421734 001 SNOMED-CT HISTORY OF CHICKENPOX 07/22/2019 resolved 5858379 08 SNOMED-CT Allergies and Adverse Reactions Allergy Substance Reaction Severity Start Date Concern Status Co de Code System Active seasonal allergies Active No Known Drug Allergies Active 743259754 SNOMED-CT No Known Drug Allergies Active 195723399 SNOMED-CT Plan of Treatment Description Due Date Details Instructions DEPRESSION SCREENING DUE 06/20/2021 Encounters Encounter Diagnosis Start Date Code Code Sys tem Pain in thoracic spine 12/25/2022 035705682 SNOME D-CT Personal Care Team Section Performer Name Performer Role Active Date Inactive Da te Progress Notes [facility] 12/25/2022 13:54 Admission Date/Time: 12/25/2022 13:07 [facility] Visit Note Chief Complaint: [facility] F/U UPPER BACK PAIN/BY NECK SWOLLEN Has the patient received a COVID Vaccine? Has had 2 Covid vaccines Nurse Note: this nurse note is documented by Riki Santoro LPN Depression Screening PHQ9 completed by the patient. See scanned image. PHQ-9 Total Score: If score >=5, indicate Plan: Score Assessment: 0-4= not an indicator or depression, 5-9=mild depression, 10-14=moderate depression, 15-19=moderately severe depression, 20-27=severe depression. History of Present Illness: Pt is an 17 yo female presents to [facility] today for [facility] follow up neck and back pain. Pt states she went to [facility] on 12-18-22 with neck and upper back pain. States it just started hurting her while at work, denies injury to the areas. States no xrays were done at ER and was given Rx for steroids that she did not fern picker. States she has been taking warm baths at night to try and help with the pain. States the neck and back are no better. States this morning she looked down and back up and felt a sharp pain in the back of the neck. Allergy Table Allergen Type Reaction seasonal allergies No Known Environmental Allergies environment Vital Signs: This Visit HtWt Date/Time BP (mm/Hg) BP Position/Site Heart Rate Resp Temp (F) SPO2% Pain Score Height (in) Weight (lbs/ozs) BMI Head Cir (cm) 12/25/2022 13:33 106/72 Sitting/Left Arm 82 16 98.6 Temporal Scanning 100 % 68 in 157 lbs 23.87 PHYSICAL EXAM: General - no acute distress. HEENT - Pupils equal and reactive to light and accommodation, tympanic membranes clear, no pharyngeal exudate, no cervical lymphadenopathy Heart - Regular rate and rhythm, no murmurs Lungs - Clear to auscultation bilaterally Back - Muscle spasm noted in left trapezius Lab Results: This Visit: No Labs Available Assessment/Plan: 1. Left upper back pain - Start steroids and muscle relaxer. Patient denies need for school note. 2. Contraceptive management - Patient requesting to restart Anel, will restart at this time Return to clinic PRN - total minutes [...] records Referring and communicating with other health residential child care counselor x Obtaining and/or reviewing separately obtained history Independent interpretation of results and communicating results to the patient/family/caregiver x Performing a medically appropriate examination/evaluation Care coordination (not reported separately) Ordered & Completed Meds Table: No Current Medications Available Discharge Med List: Discharge Medications: No Discharge Medications Available
--- OUTSIDE RECORDS SUMMARY | 2025-01-05 18:12 | XMS_ITS ---
Author Organization Unknown Address [address] [place] [address] [phone] Phone Care Team Providers Care Trestle Mainternance Laborer Name Role Phone ATIYA Lezama MD Attending [...] em Smoking History Never smoker (Never Smoked) 835251431 SNOMED CT Sex Female Sexual Orientation Straight or Heterosexual 97678189 SNOMED CT Gender Identity Female [id number] [address] Medications Medication Start Date End Date Route Frequency Dose Code Code System Medication Instructions Home Meds ZyrTEC Allergy 10MG Oral Capsule, Liquid Filled 03/12/2023 Unknown By Mouth Daily 1 CAPSULE 2913032 RxNorm 1 CAPSULE By Mouth Daily Fluticasone 0.05MG/1Actuatio n Nasal [place] 03/12/2023 Unknown Nasal Daily 1 Sprays 5789800 RxNorm 1 Spra ys Nasal Daily Azithromycin 500MG Oral Tablet 06/04/2024 Unknown By Mouth x1 NOW 2 TABLET 185729 RxNorm 2 TABLET By Mouth x1 NOW [...] Status Code Code System SEASONAL ALLERGY active 238527044 SNO MED-CT FAMILY PLANNING 06/20/2020 active 929989387 SNO MED-CT BITE OF INSECT active 972362909 SNOME D-CT ES OF VAGINA 08/07/2022 active 78999600 S NOMED-CT MENORRHAGIA active 036651472 SNOMED-C T PAINFUL NECK active 12943812 SNOMED- CT ADHD OF CHILDHOOD 07/22/2019 resolved 608685797 S NOMED-CT SEASONAL NASAL ALLERGY 07/22/2019 resolved 558960 001 SNOMED-CT HISTORY OF CHICKENPOX 07/22/2019 resolved 8402497 08 SNOMED-CT Allergies and Adverse Reactions Allergy Substance Reaction Severity Start Date Concern Status Co de Code System Active seasonal allergies Active No Known Drug Allergies Active 801750487 SNOMED-CT No Known Drug Allergies Active 150070898 SNOMED-CT Plan of Treatment Description Due Date Details Instructions DEPRESSION SCREENING DUE 06/20/2021 Personal Care Team Section Performer Name Performer Role Active Date Inactive Da xena
--- OUTSIDE RECORDS SUMMARY | 2025-01-05 18:12 | XMS_ITS ---
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 Name Role Phone TABATHA RODGERS Attending Unavailable ATIYA Lezama MD Primary Unavailable ABBY AGUIRRE Xhandgino Unavailable Immunization Immunization Date Status Additional Notes [...] NON-AUTO W/O MICR O - Collect Date/Time: 07/31/2022 17:14 [facility] ID: [id number] [address] [place] [address], [phone] LOINC: Test Value Unit Reference Range Code Code System Flag TEST NAME URINALYSIS Color DARK YELLOW Clarity CLEAR Spec Grav 1.020 NORMAL: 1.001-1.035 PH 5.0 NORMAL: 5 - 6 Leuk Est Trace NORMAL: NEGATIVE Nitrates Negative NORMAL: NEGATIVE Protein TRACE NORMAL: NEGATIVE A Glucose NEGATIVE NORMAL: NEGATIVE Manual Clinitest NOT APPLICABLE Ketones NEGATIVE NORMAL: NEGATIVE Urobilinogen NORMAL NORMAL: 0-1 mg/dl Bilirubin NEGATIVE NORMAL: NEGATIVE Blood TRACE NORMAL: NEGATIVE A URINE TEST - Colle ct Date/Time: 07/31/2022 17:12 [facility] ID: [id number] [address] [place] [address], [phone] LOINC: Test Value Unit Reference Range Code Code System Flag TEST PERFORMED URINE PREG (URINE) NEGATIVE LOT#: [id number] EXP DATE: 2023-10-10 QC: ACCEPTABLE Social History Type Status Start Date End Date Code Code Syst em Smoking History Never smoker (Never Smoked) 388838501 SNOMED CT Sex Female Sexual Orientation Straight or Heterosexual 94307176 SNOMED CT Gender Identity Female [id number] [address] Vital Signs Vital Sign Value Unit [place] Value [place] Unit Date/Time Recent/Initial? Code Code System Body Mass Index 23.34 kg/m2 07/31/2022 16:59 Initial 59651 -5 [facility] Body Mass Index Percentile 71 % 07/31/2022 16:59 Initial 26126 -9 [facility] Systolic Blood Pressure 120 mm[Hg] 07/31/2022 16:59 Initial 8480- 6 [facility] Diastolic Blood Pressure 80 mm[Hg] 07/31/2022 16:59 Initial 8462- 4 [facility] Body Surface Area 1.79 m2 07/31/2022 16:59 Initial 3140- 1 [facility] Height 170.180 0 cm 67.00 in 07/31/2022 16:59 Initial 8302- 2 [facility] O2 Saturation 98 % 2021 16:59 Initial 37965 -5 [facility] Pulse 92.0 /min 07/31/2022 16:59 Initial 8867- 4 [facility] Temperature 36.8 Antonella 98.2 F 07/31/20 16:59 Initial 8310- 5 [facility] Weight 67.59 kg 149.00 lbs 07/31/2022 16:59 Initial 81806 -7 [facility] Medications Medication Start Date End Date Route Frequency Dose Code Code System Medication Instructions Home Meds predniSONE 50MG Oral Tablet 06/07/2022 07/31/2022 By Mouth Daily 1 TABLET 577451 RxNorm 1 TABLET By Mouth Daily [place]-28 30MCG-0.15MG-NA Oral Tablet 06/07/2022 09/12/2022 By Mouth Daily 1 TABLET 282947 RxNorm 1 TABLET By Mouth Daily Diflucan [...] 02/20/2023 By Mouth As Directed 1 PACK 031728 RxNorm 1 PACK By Mouth As Directed Methocarbamol 750MG Oral Tablet 12/25/2022 03/12/2023 By Mouth As needed every 8 hr 643754 RxNorm 1-2 TABLET By Mouth As needed every 8 hr Anel-28 30 MCG-0.15 MG; NA Oral Tablet 12/25/2022 03/12/2023 By Mouth Daily 1 TABLET 936482 RxNorm 1 TABLET By Mouth Daily Macrobid 100MG Oral Capsule 02/20/2023 03/12/2023 By mouth Twice a day 1 TABLET 629333 RxNorm 1 TABLET By mouth Twice a day X 7 DAYS Pyridium 100MG Oral Tablet 02/20/2023 03/12/2023 By mouth As needed every 8 hr 1 TABLET 6820780 RxNorm 1 TABLET By mouth As needed every 8 hr for urinary pain ZyrTEC Allergy 10MG Oral Capsule, Liquid Filled 03/12/2023 Unknown By Mouth Daily 1 CAPSULE 6223036 RxNorm 1 CAPSULE By Mouth Daily Fluticasone 0.05MG/1Actuati on Nasal [place] 03/12/2023 Unknown Nasal Daily 1 Sprays 8101384 RxNorm 1 Spr ays Nasal Daily Azithromycin 500MG Oral Tablet 06/04/2024 Unknown By Mouth x1 NOW 2 TABLET 088028 RxNorm 2 TABLET By Mouth x1 NOW Assessment You had the following problems:SEASONAL ALLERGYFAMILY PLANNINGBITE OF INSECTCANDIDA OF VAGINAMENORRHAGIAPAINFUL NECK Assessment/Plan: 1. Vaginitis - Acute. STI testing completed (Yeast culture, BV/Trich, GC/Chlamydia). Urinalysis was WNL, test negative. Advised pt that it would take a few days for all results to come in. Pt instructed to apply cold packs to area. OTC Vagisil to vagina as directed. Luke warm bath with a dash of baking soda. Ibuprofen 600mg 1 PO TID. Return to CC or see PCP if symptoms persist or worsen. Hospital Discharge Instructions Should you have any questions prior to discharge, please contact a member of your healthcare team. If you have left the hospital and have any questions, please contact your primary care physician. Reason For Referral No Data Found Problems Problem Start Date Resolved Date Status Code Code System SEASONAL ALLERGY active 472801149 SNO MED-CT FAMILY PLANNING 06/20/2020 active 152848201 SNO MED-CT BITE OF INSECT active 768882251 SNOME D-CT ES OF VAGINA 08/07/2022 active 54709798 S NOMED-CT MENORRHAGIA active 970266232 SNOMED-C T PAINFUL NECK active 07151457 SNOMED- CT ADHD OF CHILDHOOD 07/22/2019 resolved 788794989 S NOMED-CT SEASONAL NASAL ALLERGY 07/22/2019 resolved 015540 001 SNOMED-CT HISTORY OF CHICKENPOX 07/22/2019 resolved 4751811 08 SNOMED-CT Allergies and Adverse Reactions Allergy Substance Reaction Severity Start Date Concern Status Co de Code System Active seasonal allergies Active No Known Drug Allergies Active 213210858 SNOMED-CT No Known Drug Allergies Active 160598153 SNOMED-CT Plan of Treatment Description Due Date Details Instructions DEPRESSION SCREENING DUE 06/20/2021 Future Order Description Future Order Date Futu re Order Loinc: BACTERIAL VAGINOSIS RAPID TEST 07/31/2022 LOINC: 6410-5 CULTURE YEAST, WITH IDENTIFICATION 07/31/2022 LOINC: 90338-0 TRICHOMONAS VAGINALIS FEMALE RNA QUAL 2 LOINC: 62683-5 CHLAMYDIA/GC URINE RNA, TMA APTIMA 07/31/2022 LOINC: 5048-4 CULTURE URINE 07/31/2022 LOINC: 630-4 Encounters Encounter Diagnosis Start Date Code Code Sys tem Acute vaginitis 07/31/2022 57836496 SNOMED-CT Personal Care Team Section Performer Name Performer Role Active Date Inactive Da te Progress Notes [facility] 07/31/2022 18:10 Admission Date/Time: 07/31/2022 16:21 [facility] Visit Chief Complaint: PERSONAL Has the patient received a COVID Vaccine? Y Nurse Note: this nurse note is documented by NELL. PT PRESENTS TO THE CLINIC TODAY WITH COMPLAINTS OF SWOLLEN, ITCHY VAGINAL AREA WITH DISCHARGE. PT STATED HER SYMPTOMS STARTED YESTERDAY. History of Present Illness: Pt presents to CC with c/o vaginal itching, discharge, and swelling that started yesterday. Pt's LMP was 3 weeks ago. She is on Anel for OC. She denies having multiple sexual partners or placing any objects in or around her vagina. She does shave her vagina. Pt denies ever having any symptoms like this before. She denies any headache, sore throat, cough, SOB, abdominal pain, nausea, vomiting or diarrhea. She denies any issues with urinating or having bowel movements. Pt states she is hurting so bad that she had to leave work to come here. Her vagina opening is so swollen it causes her to walk bow-legged. Pt has not tried to take anything or apply anything for her symptoms. She agrees to STI testing. Discussed with her to wear loose fitting clothes, and cotton underwear. Advised pt to apply cold compress to the vaginal area 15mins on and 15mins off. Take a bath in luke warm water and add a dash of baking soda. She will apply OTC Vagisil to the outer area of her vagina. Ibuprofen 600mg TID. Pt instructed to return to CC or her PCP if symptoms persist or worsen. Pt states understanding and agrees with treatment plan. Denies any other questions or concerns at this time. Allergy Table Allergen Type Reaction seasonal allergies No Known Environmental Allergies environment Vital Signs: This Visit HtWt Date/Time BP (mm/Hg) BP Position/Site Heart Rate Resp Temp (?F) SPO2% Pain Score Height (in) Weight (lbs/ozs) BMI Head Cir (cm) 07/31/2022 16:59 120/80 Lying/Right Arm 92 98.2 Temporal 98 % 67 in 149 lbs 23.34 PHYSICAL EXAM: GENERAL: Well- appearing in mild acute distress ABDOMEN: Soft, non-tender. No rebound or guarding. GENITALIA: Left labia majora extremely swollen, erythematous and painful to the touch. Right labia majora slightly swollen and erythematous. No drainage noted. PSYCHIATRIC: Alert, oriented and cooperative. Normal memory. Conversant, normal affect. Lab Results: This Visit Test Results Units Reference Range Ordered Collected Status TEST NAME URINALYSIS 07/31/2022 17:10 07/31/2022 17:14 final Color DARK YELLOW 07/31/2022 17:10 07/31/2022 17:14 final Clarity CLEAR 07/31/2022 17:10 07/31/2022 17:14 final Spec Grav 1.020 NORMAL: 1.001-1.035 07/31/2022 17:10 07/31/2022 17:14 final PH 5.0 NORMAL: 5 - 6 07/31/2022 17:10 07/31/2022 17:14 final Leuk Est Trace NORMAL: NEGATIVE 07/31/2022 17:10 07/31/2022 17:14 final Nitrates Negative NORMAL: NEGATIVE 07/31/2022 17:10 07/31/2022 17:14 final Protein TRACE A NORMAL: NEGATIVE 07/31/2022 17:10 07/31/2022 17:14 final Glucose NEGATIVE NORMAL: NEGATIVE 07/31/2022 17:10 07/31/2022 17:14 final Manual Clinitest NOT APPLICABLE 07/31/2022 17:10 07/31/2022 17:14 final Ketones NEGATIVE NORMAL: NEGATIVE 07/31/2022 17:10 07/31/2022 17:14 final Urobilinogen NORMAL NORMAL: 0-1 mg/dl 07/31/2022 17:10 07/31/2022 17:14 final Bilirubin NEGATIVE NORMAL: NEGATIVE 07/31/2022 17:10 07/31/2022 17:14 final Blood TRACE A NORMAL: NEGATIVE 07/31/2022 17:10 07/31/2022 17:14 final TEST PERFORMED URINE 07/31/2022 17:10 07/31/2022 17:12 final PREG (URINE) NEGATIVE 07/31/2022 17:10 07/31/2022 17:12 final LOT#: [id number] 07/31/2022 17:10 07/31/2022 17:12 final EXP DATE: 2023-10-10 07/31/2022 17:10 07/31/2022 17:12 final QC: ACCEPTABLE 07/31/2022 17:10 07/31/2022 17:12 final Assessment/Plan: 1. Vaginitis - Acute. STI testing completed (Yeast culture, BV/Trich, GC/Chlamydia). Urinalysis was WNL, test negative. Advised pt that it would take a few days for all results to come in. Pt instructed to apply cold packs to area. OTC Vagisil to vagina as directed. Luke warm bath with a dash of baking soda. Ibuprofen 600mg 1 PO TID. Return to CC or see PCP if symptoms persist or worsen. Meds Given This Visit: Ordered & Completed Meds Table: No Current Medications Available Discharge Med List: Discharge Medications Medication Special Instructions Start Date Prescribing MD Tam-Natalia 30MCG-0.15MG-NA Oral Tablet 1 TABLET By Mouth Daily 06/07/2022 Blanco Gallego
--- OUTSIDE RECORDS SUMMARY | 2025-01-05 18:12 | XMS_ITS | Data Portability ---
Author Organization [facility] Address [address] [place] [address] Assessment No assessment recorded. Plan of Treatment Reminders Order Date Submit Date Provider Last Modified By Organization Details Last Modified Time Details Appointments NST 2024 09:30A M NST SCHEDULE Not available Not available Not available U/S OB GROWTH 2024 10:00A M ULTRASOUND Not available Not available Not available OB ROUTINE 2024 10:45A Dalton RODRIGUEZ MD Not available Not available Not available U/S OB BPP 2024 12:30P M ULTRASOUND Not available Not available Not available NST 2024 01:00P M NST SCHEDULE Not available Not available Not available OB ROUTINE 2024 01:30P M TRINI RODRIGUEZ MD Not available Not available Not available U/S OB BPP 2024 09:30A M ULTRASOUND Not available Not available Not available NST 2024 10:00A M NST SCHEDULE Not available Not available Not available OB ROUTINE 2024 10:30A M TRINI RODRIGUEZ MD Not available Not available Not available U/S OB GROWTH 2024 09:00A M ULTRASOUND Not available Not available Not available NST 2024 09:30A M NST SCHEDULE Not available Not available Not available OB ROUTINE 2024 10:45A Dalton RODRIGUEZ MD Not available Not available Not available Lab None recorde d. Referral None recorde d. Procedures None recorde d. Surgeries None recorde d. Imaging US, obstetr ic, follow- up 2024 025 [email or web address] [place], [address], [place], [address], 12/15/2024 23:03:15 Medication Orders None recorde d. Patient TargetsNo targets recorded. Patient InstructionsNo instructions recorded. Reason for Referral None Reported. Results Created Date Observation Date Name Description Value Unit Range Abnormal Flag Note LastModifiedBy Organization Detail LastModifiedTime 12/30/1912/30/2024 CULTU RE: URINE result report SEE RESULT S BELOW Test: Cultu re: Urine Speci men Sourc e: Urine - Clean Catch Speci men Type: Urine Speci men Date: 2024 1719 Resul t Date: 20249 Resul t Statu s: Final resul t Abnor mal: No Resul ting Lab: [facility] [address] [facility] [address] Tel: CULTU RE ----- ----- ----- --- No growt h in 1 day (dete ction level of 10,00 0 colon ies / ml.) Not Available [facility] (Lab) [address], [place], [address], 01/03/2025 23:55:30 12/15/19 25 12/15/2024 US, obste tric, follo w-up No observ ation record ed. [email or web address] [place] [address], [place], [address], 12/15/2024 13:52:35 12/15/19 25 12/15/2024 US, obste tric, follo w-up No observ ation record ed. [email or web address], [place], [address], 12/15/2024 22:51:06 12/30/19 25 12/30/2024 non-s tress test No observ ation record ed. [place] [address], [place], [address], 01/01/2025 13:38:09 Result Notes None recorded. Problems Name Problem SNOMED Code Status Onset Date Resolution Date Notes Provider Name and Address Organization Details Recorded Time 99160818 Active 2024 Zelda Crowleyshannan acosta, [facility] 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 5 22:12:52 Large for gestation age fetus 176529902 Active 94% at 11/2024 [facility] US TRINI RODRIGUEZ MD [address], [place], [address], [facility] 5 22:40:35 Cytomegal ovirus antibody screening Active Positive per [facility]; echogenic bowel on 3T US, resolved on later scan; twice weekly testing per [facility] TRINI RODRIGUEZ MD [address], [place], [address], [facility] 5 22:12:30 Gestation al diabetes mellitus 94267845 Active TRINI RODRIGUEZ MD [address], [place], [address], [facility] 5 22:40:11 Gestation al diabetes mellitus 21854802 Active TRINI RODRIGUEZ MD [address], [place], [address], [facility] 5 22:40:11 Cytomegal ovirus antibody screening [facility]; echogenic bowel on 3T US, resolved on later scan; twice weekly testing per [facility] TRINI RODRIGUEZ MD [address], [place], [address], [facility] 5 22:40:17 Klinefelt er's syndrome, XXY 600760875 Active High risk on NIPT; declined amniocent esis; genetic testing at delivery TRINI RODRIGUEZ MD [address], [place], [address], [facility] 22:40:36 Large for gestation age fetus 407426693 Active 94% at 11/2024 [facility] TRINI RODRIGUEZ MD [address], [place], [address], [facility] 22:40:38 Problem Notes None recorded. Procedures Surgical History Date Name Laterality Status Provider Name and Address Organization Details Recorded Time Appendectomy completed Zelda Wang [facility] 12/15/2024 13:12:49 Appendectomy completed Julieta Goddard [facility] 12/30/2024 17:09:16 Imaging Results Imaging Date Name Status LastModified by Organiz ation Details LastModified Time 12/15/2024 US, obstetric, follow-up completed [email or web address] [place] [address], [place], [address], 12/15/2024 13:52:35 12/15/2024 US, obstetric, follow-up completed [email or web address], [place], [address], 12/15/2024 22:51:06 12/30/2024 non-stress test completed [address], [place], [address], 01/01/2025 13:38:09 Procedure Notes None recorded. Medical Equipment None Reported. Allergies No known drug allergies Medications Name Sig Start Date Stop Date Status Note LastModified by Organization Details LastModified Time amoxicillin 500 mg capsule TAKE ONE CAPSULE BY MOUTH EVERY 8 HOURS FOR 10 DAYS 12/15 completed Not Available Not Available Not Available Accu-Chek Softclix Lancets USE TO MONITOR BLOOD SUGAR LEVEL FOUR TIMES DAILY 12/15 completed Not Available Not Available Not Available OneTouch Ultra Test strips USE TO TEST BLOOD SUGAR FOUR TIMES DAILY active Not Available Not Available No t Available cephalexin 500 mg capsule TAKE 1 CAPSULE BY MOUTH EVERY 6 HOURS FOR 7 DAYS 12/15 completed Not Available Not Available Not Available + DHA active Not Available Not Available Not Available OneTouch Ultra2 Meter USE DIRECTED TO TEST BLOOD SUGAR active Not Available Not Available No t Available OneTouch Delica Plus Lancet 33 gauge USE TO TEST BLOOD SUGAR FOUR TIMES DAILY active Not Available Not Available No t Available Vitals Date Recorded Body height Body mass index (BMI) Percentile per age and sex Body mass index (BMI) Body weight Systolic blood pressure Diastolic blood pressure Provider Name and Address Organization Details Last Updated DateTime 5 172.72 cm 88 % 27.7 kg/m2 00960.8 1 g 115 mm[Hg] 66 mm[Hg] Zelda Wang [facility] 5 13:12:17 Date Recorded Body height Body mass index (BMI) Body mass index (BMI) Percentile per age and sex Body weight Systolic blood pressure Diastolic blood pressure Provider Name and Address Organization Details Last Updated DateTime 5 172.72 cm 28.3 kg/m2 89 % 20432.1 8082 g 127 mm[Hg] 83 mm[Hg] Julieta Goddard [facility] 5 17:09:51 Social History Question Answer Notes LastModified by Organizat ion Details LastModified Time Do You Have An Advance Directive? No Information n ot available 12/15/2024 What Is Your Level Of Alcohol Consumption? None Information not available 12/15/2024 How Many Years Have You Consumed Alcohol? 2 Information not available 12/15/2024 Are You Blind Or Do You Have Difficulty Seeing? No Information not available 12/15/2024 What Is Your Level Of Caffeine Consumption? None Information not available 12/15/2024 In The 14 Days Before Symptom Onset, Have You Had Close Contact With A Laboratory-confirme d COVID-19 While That Case Was Ill? No Information n ot available 12/15/2024 In The 14 Days Before Symptom Onset, Have You Had Close Contact With A Person Who Is Under Investigation For COVID-19 While That Person Was Ill? No Information not available 12/15/2024 Have You Been To An Area Known To Be High Risk For COVID-19? No Information not available 12/15/2024 Are You Deaf Or Do You Have Serious Difficulty Hearing? No Information not available 12/15/2024 What Type Of Diet Are You Following? REGULAR Information n ot available 12/15/2024 What Is The Highest Grade Or Level Of School You Have Completed Or The Highest Degree You Have Received? [id number] Information not available 12/15/2024 What Is Your Occupation? [employer] [email or web address] Information not available 12/30/2024 Are There Any Guns Present In Your Home? No Information not available 12/15/2024 Do You Use Protection During Sex? No Information not available 12/15/2024 Do You Use Your Seat Belt Or Car Seat Routinely? Yes Information not available 12/15/2024 Do You Have Smoke And Carbon Monoxide Detectors In Your Home? Yes Information not available 12/15/2024 How Much Tobacco Do You Smoke? No Information not available 12/15/2024 Do You Feel Stressed (tense, Restless, Nervous, Or Anxious, Or Unable To Sleep At Night)? [id number] Information not available 12/15/2024 Do You Use Any Illicit Or Recreational Drugs? No Information not available 12/15/2024 Do You Use Sunscreen Routinely? Yes [email or web address] Information not available 12/30/2024 Have You Used IV Drugs? No Information not available 12/15/2024 Sex: Unknown Functional Status Question Answer Note LastModified by Organizat ion Details LastModified Time Are you able to walk? YESWOREST Information not available 12/15/2024 What is your exercise level? Occasional Information not available 12/15/2024 Mental Status None recorded. Family History Relationship Description Onset Age of this Age Resolved Age Notes LastModified by Organization Details LastModified Time Unspecified Relation Family history unknown Not available 2024 13:12:28 Medical History Condition Response No Past Medical History Y Gynecological History Statement/Question Response Date of LMP 05/03/2024 On BCP's at Conception? N N Was last menstrual period normal Y STIs/STDs N HPV Vaccine N Duration of Flow (days) 4 Current Control Method Date of control 2004 Are cycles usually normal Y Frequency of Cycle (Q days) 4 Sexually Active? Y Menses Monthly Y Age of first menstrual cycle 10 Sexual Problems? N Desired Control Method None LMP Approximate N Obstetrics History GPAL:G 1 P 0 0 0 0 Past Encounters Encounter ID Performer Location Encounter Start Date Encounter Closed Date Diagnosis/Indication Diagnosis SNOMED-CT Code Diagnosis ICD10 Code Diagnosis Note [id number] Carmen He [facility] [address],[place] [address] 12/15/2024 11:23:34 12/15/2024 12:36:18 Gestational diabetes mellitus 78018784 O24.410 Z3A.32 [id number] Tod Briggs MD [place] [address],[place] [address] 12/15/2024 11:26:10 12/15/2024 13:53:08 Routine care 424752468 Z34.03 [id number] TRINI RODRIGUEZ MD [place] [address],[place] [address] 12/30/2024 17:03:09 12/31/2024 10:05:53 Gestational diabetes mellitus 14257093 O24.410 Z3A.32 - A1- good glycemic control History of cytomegalovirus infection 1756345720 43067620 Z86.19 - positive antibodies - records requested from [facility]- twice weekly testing per [facility] Klinefelte r's syndrome, XXY 109132203 Q98.0 - high risk on NIPT- declined amniocente sis- plan for cord blood at deliveryfo r confirmato ry testing Large for gestation age fetus 965183731 O36.63X0 - 94% at 11/2024 [facility] scan Gestation period, 34 weeks 09768828 Z3A.34 - all outside scans and labs reviewed today- continue PNV RhD negative 768099229 Z - B neg blood type- patient reports she has not received Rhogam injection yet- labs sent today for Rhogam eval Health Concerns Section Related Observation LastModified by Organization Detai ls LastModified Time None Recorded Concern Status LastModified by Organization Details LastModified Time None Recorded Advance Directives Directive N: Payers Encounter Date Sequence Insurance Name Policy Number Policy Rivers Covered Member ID Rivers Member ID Guarantor Name 12/15/2024 1 [facility] (MEDICAID HMO) [id number] Lani Ho [id number] Lani Ho 12/15/2024 1 [facility] (MEDICAID HMO) [id number] Lani Ho [id number] Lani Ho 12/30/2024 1 [facility] (MEDICAID HMO) [id number] Lani Ho [id number] Lani Ho OBGyn Episode Ob Episode Information Episode Created Date Number of Fetuses Patient Bloodtype Patient rh Status Prepregnancy Weight lbs Domestic Partner Domestic Partner Phone Father Name Central Sterilization Technician Status 12/15/19 25 1 OPEN Fetus Data First Name Last Name Admitted to NICU Weight (g) Sex Living Outcome Pediatric Complications Fetus ID Race Codes Race Delivery Type [id number] Problems Problem Notes Problem Name Start Date End Date Resolution Snomed Code Not e Large for gestation age fetus 701225605 94% at 11/2024 [facility] US Gestational diabetes mellitus 11720701 Cytomegalovirus antibody screening 485901390 Positive per [facility]; echogenic bowel on 3T US, resolved on later scan; twice weekly testing per [facility] Klinefelter's syndrome, XXY 583165277 High risk on NI PT; declined amniocentesis; genetic testing at delivery Mukul Calculation Initial Mukul Date Initial Exam Date Initial Exam Provider Initial Ultrasound Date Last Menstrual Period Date Ultra Sound Weeks Gestation 12/15/2024 06/23/2024 05/03/2024 7 Eighteen To Twenty Week Mukul Update Ultra Sound Date Fundal Height At Umbil Quickening Date Ultra Sound Latest Weeks Gestation Final Mukul Confirmed By Final Mukul Confirmed Date Final Mukul Date Ultra Sound Latest Days Gestation 0 [email or web address] 12/15/2024 02/08/20 25 0 Pre-kristan Flowsheet Flowsheet Date 12/15/2024 Lozada Score Blood Edema Fundus Height Fundus Units Glucose Ketones Leukocytes Nitrite Labor Signs Protein Cervic Dilation Cervic Effacement Cervic Station Type Weight in lbs Pre/Post Dialysis Refused Weight 182.118856209589 BP Diastolic BP Location Tested BP Systolic BP Type 66 L arm 115 sitting Fetus Heart Rate Present Fetus Movement Comments this patient is a 19-year-ol d primiparous female at 32 weeks' gestation who presents for Continue care.. Her medical, surgical, obstetric history is unremarkable. She is vaccinated. She was given precautions recommendations for . We talked about vaccines in . Talked about care in detail. She is having genetic testing. She had a normal 12 week ultrasound. To begin routine care. Flowsheet Date 12/30/2024 Lozada Score Blood Edema Fundus Height Fundus Units Glucose Ketones Leukocytes Nitrite Labor Signs Protein Cervic Dilation Cervic Effacement Cervic Station neg none Type Weight in lbs Pre/Post Dialysis Refused 186.211471917596 BP Diastolic BP Location Tested BP Systolic BP Type 83 L arm 127 sitting Fetus Heart Rate Present A 145 Fetus Movement A Yes Comments Good movement. No cram ping or bleeding. Transfer from [place] at 32 weeks; has been complicated by GDMA1; good glycemic control per patient. Checking fasting and 2h PP sugars. Discussed risks of GDM including increased risk of c section, shoulder dystocia and hypoglycemia. Discussed importance of good glycemic control. 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 Will send cord blood at delivery to confirm. On review of [facility] records, patient had +CMV antibodies. Will request further records regarding CMV. Per patient, [facility] recommends twice weekly testing. Most recent growth US was significant for EFW 94%; will continue to monitor. RTC 2 weeks. Discussed GBS for next week. Menstrual History Last Menstrual Date Menses Monthly On Bcp Conception Prior Menses Frequency Hcg Plus Date Menarche Onset Age 0605/03/2024 true Delivery Information Delivery Date Delivery Type Labor Anesthesia Weeks Gestation Incision Type Labor Labor Length Hrs Delivered By Post Complications Tubal Sterilization Discharge Date Comments Discharge Information Feeding Method Contraceptive Method Maternal HG B and HCT Levels
[2025-01-06] MEDS: RHO(D) IMMUNE GLOBULIN 300 MCG/2 ML SYRINGE IM (16:07)
== END 2025-04-05 23:59 | disposition home or self-care (01) ==
LOC: ANHLAB 15:34
PROVIDERS: Visit Provider Obstetrics & Gynecology
DX: Z11.4 Encounter for screening for human immunodeficiency virus [HIV] (principal); Z11.3 Encounter for screening for infections with a predominantly sexual mode of transmission; Z29.13 Encounter for prophylactic Rho(D) immune globulin; O36.0130 Maternal care for anti-D [Rh] antibodies, third trimester, not applicable or unspecified; Z3A.00 Weeks of gestation of pregnancy not specified
CPT/HCPCS: 36415; 85461; 86703; 86850; 86900; 86901; 90384; 96372; G0432; J2790

== ENCOUNTER 2025-01-20 05:50 | Observation (INO) | payer OTHER, SELFPAY ==
[2025-01-20] VITALS (43 sets, daily range): BP systolic 134–139; BP diastolic 81–98; PULSE 78–112; TEMP 36.9; O2SAT 98–100; BMI 28.1
--- NOTE | 2025-01-20 05:50 | OBADM ---
This patient, Lani Ho, admitted to the OB room Labor/Delivery/Recovery 106 for observation. Patient/family oriented to hospital policies and general routines including ID bracelet, bed and alarms, visiting hours, pain management, procedures, bathroom and other care routines, personal items, smoking policy, room service/diet, and visiting hours. Patient/Family are encouraged to report perceived risks to care and to ask questions if they do not understand what they are told or what they should do.
--- OUTSIDE RECORDS SUMMARY | 2025-01-20 05:59 | XMS_ITS | Clinical Summary ---
Author Organization [facility] Address [address] [place] [address] Care Team Providers Care Supervisory Training Specialist Name Role Phone Geovanna Pryor NP Primary [...] Hepatitis C 2022 COVID-19 Vaccine ( - 2023- season) 2024 Influenza Adult (#1) 2024 Hepatitis [...] age to complete this topic Care Teams Supervisory Training Specialist Relationship Specialty Start Date End Date Geovanna Pryor NP [address] [place] [address] PCP - General Nurse Practitioner Family 06/17/19 Geovanna Pryor NP [address] [place] [address] 06/17/19
--- OUTSIDE RECORDS SUMMARY | 2025-01-20 05:59 | XMS_ITS ---
Author Organization Unknown Address [address], [place] [id number] Phone Care Team Providers Care Down Filler Name Role Phone DEON RAFIQ Attending Unavailable Results CYTOMEGALOVIRUS AB IGG - Col lect Date/Time: 10/22/2024 14:12 [facility] ID: [id number] [address], [place], [id number] LOINC: 5124-3 Test Value Unit Reference Range Code Code System Flag CYTOMEGALOVIRUS ANTIBODY(IGG) >10.00 H PARVOVIRUS B19 IGG & IGM - C ollect Date/Time: 10/22/2024 14:12 [facility] ID: [id number] [address], [place], [id number] LOINC: 5273-8 Test Value Unit Reference Range Code Code System Flag PARVOVIRUS B19 ANTIBODY(IGG) 0.2 PARVOVIRUS B19 ANTIBODY(IGM) 0.2 Social History Type Status Start Date End Date Code Code Syst em Smoking History Never smoker (Never Smoked) 762138583 SNOMED CT Sex Female Sexual Orientation Straight or Heterosexual 55256429 SNOMED CT Gender Identity Female 58553302092570 [address] Medications Medication Start Date End Date Route Frequency Dose Code Code System Medication Instructions Home Meds ZyrTEC Allergy 10MG Oral Capsule, Liquid Filled 03/12/2023 Unknown By Mouth Daily 1 CAPSULE 0718957 RxNorm 1 CAPSULE By Mouth Daily Fluticasone 0.05MG/1Actuatio n Nasal [place] 03/12/2023 Unknown Nasal Daily 1 Sprays 8158161 RxNorm 1 Spra ys Nasal Daily Azithromycin 500MG Oral Tablet 06/04/2024 Unknown By Mouth x1 NOW 2 TABLET 715298 RxNorm 2 TABLET By Mouth x1 NOW [...] Status Code Code System SEASONAL ALLERGY active 602424446 SNO MED-CT FAMILY PLANNING 06/20/2020 active 740550390 SNO MED-CT BITE OF INSECT active 454561384 SNOME D-CT ES OF VAGINA 08/07/2022 active 36925914 S NOMED-CT MENORRHAGIA active 139000916 SNOMED-C T PAINFUL NECK active 59897415 SNOMED- CT ADHD OF CHILDHOOD 07/22/2019 resolved 933118288 S NOMED-CT SEASONAL NASAL ALLERGY 07/22/2019 resolved 765562 001 SNOMED-CT HISTORY OF CHICKENPOX 07/22/2019 resolved 1804197 08 SNOMED-CT Allergies and Adverse Reactions Allergy Substance Reaction Severity Start Date Concern Status Co de Code System Active seasonal allergies Active No Known Drug Allergies Active 109830246 SNOMED-CT No Known Drug Allergies Active 434313472 SNOMED-CT Plan of Treatment Description Due Date Details Instructions DEPRESSION SCREENING DUE 06/20/2021 Encounters Encounter Diagnosis Start Date Code Code Sys tem ultrasound scan abnormal 10/22/2024 887344 005 SNOMED-CT Personal Care Team Section Performer Name Performer Role Active Date Inactive Da xena
--- OUTSIDE RECORDS SUMMARY | 2025-01-20 05:59 | XMS_ITS | Data Portability ---
Author Organization [facility], [facility] Address [address] [place] [address] Assessment No assessment recorded. Plan of Treatment Reminders Order Date Submit Date Provider Last Modified By Organization Details Last Modified Time Details Appointments None recorded. Lab None recorded. Referral None recorded. Procedures None recorded. Surgeries None recorded. Imaging None recorded. Medication Orders Medrol (Rex) 4 mg tablets in a dose pack 2022 023 [facility], [address] [place] [address], [phone], 16:54:18 cyclobenzap rine 5 mg tablet 2022 023 [facility], [facility] [place], [place], [phone], 16:54:27 Patient TargetsNo targets recorded. Patient InstructionsNo instructions recorded. Reason for Referral None Reported. Results Created Date Observation Date Name Description Value Unit Range Abnormal Flag Note LastModifiedBy Organization Detail LastModifiedTime Result Notes None recorded. Problems Name Problem SNOMED Code Status Onset Date Resolution Date Notes Provider Name and Address Organization Details Recorded Time Neck pain 80723434 Active 12/19/19 23 [facility] 16:44:06 Problem Notes None recorded. Medical [...] Address Organization Details Last Updated DateTime 3 22142.5 9 g 75 % 24 kg/m2 172.72 cm 8 17 /min 98.7 [degF] 75 /min 100 % 100 % 120 mm[Hg] 70 mm[Hg] Analilia Lemon [facility] 16:21:52 Social History Question Answer Notes LastModified by Organizat ion Details LastModified Time Tobacco Smoking Status Never Smoker Analilia Lemon [facility] 12/19/2022 16:19:49 What Is Your Level Of Alcohol Consumption? None [email or web address] Information not available 12/19/2022 What Is Your Level Of Caffeine Consumption? None [email or web address] Information not available 12/19/2022 In The 14 Days Before Symptom Onset, Have You Had Close Contact With A Laboratory-confir med COVID-19 While That Case Was Ill? No [email or web address] Information not available 12/19/2022 In The 14 Days Before Symptom Onset, Have You Had Close Contact With A Person Who Is Under Investigation For COVID-19 While That Person Was Ill? No [email or web address] Information not available 12/19/2022 Do You Or Have You Ever Used E-cigarettes Or Vape? Former User Of Electronic Cigarettes Quit About 4 Months Ago [email or web address] Information not available 12/19/2022 What Was The Date Of Your Most Recent Tobacco Screening? 12/19/2022 [email or web address] Information not available 12/19/2022 Do You Or Have You Ever Used Smokeless Tobacco? Never Used Smokeless Tobacco [email or web address] Information not available 12/19/2022 Do You Use Any Illicit Or Recreational Drugs? No [email or web address] Information not available 12/19/2022 Have You Recently Traveled Abroad? No [email or web address] Information not available 12/19/2022 Do You Or Have You Ever Used Any Other Forms Of Tobacco Or Nicotine? Yes [email or web address] Information not available 12/19/2022 Sex: Unknown Functional Status None recorded. Mental Status None recorded. Family History Nothing Reported. Medical History No medical history recorded. Gynecological History Statement/Question Response Date of LMP 12/04/2022 Obstetrics History GPAL:G 0 P 0 0 0 0 Immunizations Vaccine Type Date Status Note Provider Nam e and Address Organization Details Recorded Time Hib, unspecified formulation 5 desiree acosta, [facility] 06/20/2023 14:41:02 Hib, unspecified formulation 5 desiree acosta, [facility] 06/20/2023 14:41:02 Hib, unspecified formulation 5 desiree acosta, [facility] 06/20/2023 14:41:02 HPV9 8 desiree Lilly null, [facility] 06/20/2023 14:41:02 HPV9 9 desiree acosta, [facility] 06/20/2023 14:41:02 IPV 5 desiree acosta, [facility] 06/20/2023 14:41:02 IPV 5 desiree acosta, [facility] 06/20/2023 14:41:02 MMR 5 desiree acosta, [facility] 06/20/2023 14:41:02 MMR 9 completed Rebecca Lilly null, [facility] 06/20/2023 14:41:02 COVID-19, mRNA, LNP-S, PF, 30 mcg/0.3 mL dose 1 completed Rebecca Lilly null, [facility] 06/20/2023 14:41:02 COVID-19, mRNA, LNP-S, PF, 30 mcg/0.3 mL dose 1 completed Rebecca Lilly null, [facility] 06/20/2023 14:41:02 pneumococcal conjugate PCV 7 5 completed Rebecca Lilly null, [facility] 06/20/2023 14:41:02 pneumococcal conjugate PCV 7 5 completed Rebecca Lilly null, [facility] 06/20/2023 14:41:02 pneumococcal conjugate PCV 7 5 completed Rebecca Lilly null, [facility] 06/20/2023 14:41:02 DTaP-IPV 9 completed Rebecca Lilly null, [facility] 06/20/2023 14:41:02 influenza, unspecified formulation 6 completed Rebecca Lilly null, [facility] 06/20/2023 14:41:02 Tdap 8 completed Rebecca Lilly null, [facility] 06/20/2023 14:41:02 varicella 5 completed Rebecca Lilly null, [facility] 06/20/2023 14:41:02 varicella 9 completed Rebecca Lilly null, [facility] 06/20/2023 14:41:02 influenza, split (incl. purified surface antigen) 0 completed Rebecca Lilly null, [facility] 06/20/2023 14:41:02 Hep B, adolescent or pediatric 5 desiree Lilly null, [facility] 06/20/2023 14:41:02 Hep B, adolescent or pediatric 4 completed Rebecca Lilly null, [facility] 06/20/2023 14:41:02 meningococcal MCV4P 8 desiree acosta, [facility] 06/20/2023 14:41:02 meningococcal MCV4P 0 desiree acosta, [facility] 06/20/2023 14:41:02 DTaP 5 desiree Rebecca Lilly dave, [facility] 06/20/2023 14:41:02 DTaP 5 desiree Rebeccaandrea Lilly null, [facility] 06/20/2023 14:41:02 DTaP-Hep B-IPV 5 desiree Rebecca Lilly dave, [facility] 06/20/2023 14:41:02 Influenza, split virus, quadrivalent, PF 8 desiree acosta, [facility] 06/20/2023 14:41:02 Past Encounters Encounter ID Performer Location Encounter Start Date Encounter Closed Date Diagnosis/Indication Diagnosis SNOMED-CT Code Diagnosis ICD10 Code Diagnosis Note [id number] Sarbjit Jenkins [address] [address] 12/19/2022 15:59:56 12/19/2022 16:54:35 Neck pain 84624190 M54.2 No radiculopa thy.Trigge r point? Apply [...] Rivers Member ID Guarantor Name 12/19/2022 1 [employer] (MEDICAID HMO) [id number] 0003 Lani Ho [id number] Lani Ho Notes Date Note Type Note [...] missing school yesterday, and today. Sarbjit acosta, [facility] 12/19/2022 16:51:04 OBGyn Episode No OBEpisode recorded.
--- OUTSIDE RECORDS SUMMARY | 2025-01-20 05:59 | XMS_ITS ---
Author Organization Unknown Address [address] [place] [phone] Phone Care Team Providers Care Rn Charge Name Role Phone ATIYA Lezama MD Attending [...] em Smoking History Never smoker (Never Smoked) 389857113 SNOMED CT Sex Female Sexual Orientation Straight or Heterosexual 65724911 SNOMED CT Gender Identity Female [id number] [address] Vital Signs Vital Sign Value Unit [place] Value [place] Unit Date/Time Recent/Initial? Code Code System Body Mass Index 22.93 kg/m2 09/12/2022 17:59 Initial 64139 -5 [facility] Body Mass Index Percentile 67 % 09/12/2022 17:59 Initial 97818 -9 [facility] Systolic Blood Pressure 100 mm[Hg] 09/12/2022 17:59 Initial 8480- 6 [facility] Diastolic Blood Pressure 70 mm[Hg] 09/12/2022 17:59 Initial 8462- 4 [facility] Body Surface Area 1.81 m2 09/12/2022 17:59 Initial 3140- 1 [facility] Height 172.720 0 cm 68.00 in 09/12/2022 17:59 Initial 8302- 2 [facility] O2 Saturation 99 % 2021 17:59 Initial 94900 -5 [facility] Pulse 95.0 /min 09/12/2022 17:59 Initial 8867- 4 [facility] Respiration 18 /min 09/12/20 17:59 Initial 9279- 1 [facility] Temperature 36.9 Antonella 98.4 F 09/12/20 17:59 Initial 8310- 5 [facility] Weight 68.40 kg 150.80 lbs 09/12/2022 17:59 Initial 15729 -7 [facility] Medications Medication Start Date End Date Route Frequency Dose Code Code System Medication Instructions Home Meds Anel-28 30MCG-0.15MG-NA Oral Tablet 06/07/2022 09/12/2022 By Mouth Daily 1 TABLET 180847 RxNorm 1 TABLET By Mouth Daily Diflucan 150MG Oral Tablet 08/07/2022 09/12/2022 By Mouth x1 NOW 1 TABLET 281546 RxNorm 1 TABLET By Mouth x1 NOW FOR MARCH REPEAT IN 72 HOURS Radha 28 3MG-0.02MG Oral Tablet 09/12/2022 12/25/2022 By Mouth Once a day 1 TABLET RxNorm 1 TABLET By Mouth Once a day Medrol Dosepak 4MG Oral Tablet 12/25/2022 02/20/2023 By Mouth As Directed 1 PACK 805185 RxNorm 1 PACK By Mouth As Directed Methocarbamol 750MG Oral Tablet 12/25/2022 03/12/2023 By Mouth As needed every 8 hr 126675 RxNorm 1-2 TABLET By Mouth As needed every 8 hr [place]-28 30 MCG-0.15 MG; NA Oral Tablet 12/25/2022 03/12/2023 By Mouth Daily 1 TABLET 405190 RxNorm 1 TABLET By Mouth Daily Macrobid 100MG Oral Capsule 02/20/2023 03/12/2023 By mouth Twice a day 1 TABLET 642969 RxNorm 1 TABLET By mouth Twice a day X 7 DAYS Pyridium 100MG Oral Tablet 02/20/2023 03/12/2023 By mouth As needed every 8 hr 1 TABLET 3555091 RxNorm 1 TABLET By mouth As needed every 8 hr for urinary pain ZyrTEC Allergy 10MG Oral Capsule, Liquid Filled 03/12/2023 Unknown By Mouth Daily 1 CAPSULE 5730648 RxNorm 1 CAPSULE By Mouth Daily Fluticasone 0.05MG/1Actuatio n Nasal [place] 03/12/2023 Unknown Nasal Daily 1 Sprays 3946157 RxNorm 1 Spra ys Nasal Daily Azithromycin 500MG Oral Tablet 06/04/2024 Unknown By Mouth x1 NOW 2 TABLET 160560 RxNorm 2 TABLET By Mouth x1 NOW Assessment You had the following problems:SEASONAL ALLERGYFAMILY PLANNINGBITE OF INSECTCANDIDA OF VAGINAMENORRHAGIAPAINFUL NECK Assessment/Plan: 1) Menorrhagia: Will check TSH, T4, CBC, PT/INR, and CMP. Will discontinue the Anel and start her on Radha 1 tablet daily. 2) Contraceptive management: Patient is currently on Verona but this is not managing her periods [...] Status Code Code System SEASONAL ALLERGY active 470712042 SNO MED-CT FAMILY PLANNING 06/20/2020 active 910537367 SNO MED-CT BITE OF INSECT active 945746558 SNOME D-CT ES OF VAGINA 08/07/2022 active 71352986 S NOMED-CT MENORRHAGIA active 886837936 SNOMED-C T PAINFUL NECK active 86227027 SNOMED- CT ADHD OF CHILDHOOD 07/22/2019 resolved 912402111 S NOMED-CT SEASONAL NASAL ALLERGY 07/22/2019 resolved 424934 001 SNOMED-CT HISTORY OF CHICKENPOX 07/22/2019 resolved 3571356 08 SNOMED-CT Allergies and Adverse Reactions Allergy Substance Reaction Severity Start Date Concern Status Co de Code System Active seasonal allergies Active No Known Drug Allergies Active 207271965 SNOMED-CT No Known Drug Allergies Active 766068586 SNOMED-CT Plan of Treatment Description Due Date Details Instructions DEPRESSION SCREENING DUE 06/20/2021 Future Order Description Future Order Date Futu re Order Loinc: TSH 09/12/2022 LOINC: 70931-4 FREE T4 09/12/2022 LOINC: 3024-7 CBC W DIFF 09/12/2022 LOINC: 38801-6 COMPREHENSIVE METABOLIC PANEL 09/12/2022 L OINC: 57768-2 PT (PROTIME) 09/12/2022 LOINC: 6301-6 Encounters Encounter Diagnosis Start Date Code Code Sys tem Excessive and frequent menstruation 09/12/2022 96263 1003 SNOMED-CT Personal Care Team Section Performer Name Performer Role Active Date Inactive Da te Progress Notes [facility] 09/13/2022 09:49 Admission Date/Time: 09/12/2022 13:21 Rachael Andersen MD Clinic Visit Note Chief Complaint: DISCUSS BC Has the patient received a COVID Vaccine? Yes Nurse Note: this nurse note is documented by Opal Ly CMA 17 yr old female present to [facility] today to discuss BC History of Present Illness: An 17-year-old presents to [facility] today to discuss BC. Patient states since [...] due to pain. Patient is currently on Anel for BC. Patient states when she first took the Anel she noticed tissue came out of her [...] CBC, PT/INR, and CMP. Will discontinue the Verona and start her on Radha 1 tablet daily. 2) Contraceptive management: Patient is currently on Verona but this is not managing her periods [...] records Referring and communicating with other health critical care transport nurse Obtaining and/or reviewing separately obtained history Independent [...]
--- OUTSIDE RECORDS SUMMARY | 2025-01-20 05:59 | XMS_ITS ---
Author Organization Unknown Address [address] [place] [phone] Phone Care Team Providers Care Associate Professor Name Role Phone ABBY AGUIRRE Attending Unavailable [...] em Smoking History Never smoker (Never Smoked) 145207102 SNOMED CT Sex Female Sexual Orientation Straight or Heterosexual 26456911 SNOMED CT Gender Identity Female 56001781661570 [address] Vital Signs Vital Sign Value Unit [place] Value [place] Unit Date/Time Recent/Initial? Code Code System Body Mass Index 26.21 kg/m2 05/06/2023 12:01 Initial 64033 -5 [facility] Body Mass Index Percentile 85 % 05/06/2023 12:01 Initial 43885 -9 [facility] Systolic Blood Pressure 118 mm[Hg] 05/06/2023 12:01 Initial 8480- 6 [facility] Diastolic Blood Pressure 74 mm[Hg] 05/06/2023 12:01 Initial 8462- 4 [facility] Body Surface Area 3.35 m2 05/06/2023 12:01 Initial 3140- 1 [facility] Height 248.920 0 cm 98.00 in 05/06/2023 12:01 Initial 8302- 2 [facility] O2 Saturation 98 % 2022 12:01 Initial 35234 -5 [facility] Pulse 78.0 /min 05/06/2023 12:01 Initial 8867- 4 [facility] Temperature 36.4 Antonella 97.5 F 05/06/20 12:01 Initial 8310- 5 [facility] Weight 162.40 kg 358.03 lbs 05/06/2023 12:01 Initial 07667 -7 [facility] Medications Medication Start Date End Date Route Frequency Dose Code Code System Medication Instructions Home Meds ZyrTEC Allergy 10MG Oral Capsule, Liquid Filled 03/12/2023 Unknown By Mouth Daily 1 CAPSULE 7040130 RxNorm 1 CAPSULE By Mouth Daily Fluticasone 0.05MG/1Actuatio n Nasal [place] 03/12/2023 Unknown Nasal Daily 1 Sprays 5294759 RxNorm 1 Spra ys Nasal Daily Azithromycin 500MG Oral Tablet 06/04/2024 Unknown By Mouth x1 NOW 2 TABLET 542518 RxNorm 2 TABLET By Mouth x1 NOW [...] Status Code Code System SEASONAL ALLERGY active 658592240 SNO MED-CT FAMILY PLANNING 06/20/2020 active 631131511 SNO MED-CT BITE OF INSECT active 026863087 SNOME D-CT ES OF VAGINA 08/07/2022 active 95370265 S NOMED-CT MENORRHAGIA active 748988049 SNOMED-C T PAINFUL NECK active 99328082 SNOMED- CT ADHD OF CHILDHOOD 07/22/2019 resolved 012436762 S NOMED-CT SEASONAL NASAL ALLERGY 07/22/2019 resolved 439998 001 SNOMED-CT HISTORY OF CHICKENPOX 07/22/2019 resolved 0884440 08 SNOMED-CT Allergies and Adverse Reactions Allergy Substance Reaction Severity Start Date Concern Status Co de Code System Active seasonal allergies Active No Known Drug Allergies Active 712839490 SNOMED-CT No Known Drug Allergies Active 677980643 SNOMED-CT Plan of Treatment Description Due Date Details Instructions DEPRESSION SCREENING DUE 06/20/2021 Encounters Encounter Diagnosis Start Date Code Code Sys tem Injury of head 05/06/2023 23191292 SNOMED-CT Personal Care Team Section Performer Name Performer Role Active Date Inactive Da te Progress Notes [facility] 05/06/2023 13:28 Date of Service: 05/06/2023 Convenient [...] Instructions Start Date Prescribing Fluticasone 0.05MG/1Actuation Nasal [place] 1 Sprays Nasal Daily 03/12/2023 Blanco Gallego ZyrTEC Allergy 10MG Oral Capsule, Liquid Filled 1 CAPSULE By Mouth Daily 03/12/2023 Blanco Gallego This examination was transcribed using the [employer] voice recognition system without human residential roofer. In an effort to expedite patient care, this report has not been adjusted for typographical, or medical or syntax by a trained medical device.
--- OUTSIDE RECORDS SUMMARY | 2025-01-20 06:00 | XMS_ITS ---
Author Organization Unknown Address [address] [place] [phone] Phone Care Team Providers Care Access Assoc Name Role Phone Blanco Gallego Attending Unavailable [...] ANTIGEN - Collec t Date/Time: 03/12/2023 14:51 [facility] ID: [id number] [address] [place], [place], [phone] LOINC: 6556-5 Test Value Unit Reference Range Code Code System Flag COVID RAPID ANTI NEGATIVE NORMAL: NEGATIVE LOT#: [id number] Exp Date: 12/07/2023 QC: ACCEPTABLE STREP A SCREEN - Collect Sha e/Time: 03/12/2023 14:50 [facility] ID: [id number] [address] [place], [place], [phone] LOINC: 6556-5 Test Value Unit Reference Range Code Code System Flag STREP SCREEN NEGATIVE NORMAL: NEGATIVE 6556-5 LOINC Lot#: [id number] Exp Date: 04/10/2024 QC STREP ACCEPTABLE Social History Type Status Start Date End Date Code Code Syst em Smoking History Never smoker (Never Smoked) 640136733 SNOMED CT Sex Female Sexual Orientation Straight or Heterosexual 96977659 SNOMED CT Gender Identity Female 06817821864287 [address] Vital Signs Vital Sign Value Unit [place] Value [place] Unit Date/Time Recent/Initial? Code Code System Body Mass Index 23.57 kg/m2 03/12/2023 14:40 Initial 88119 -5 LOINC Body Mass Index Percentile 71 % 03/12/2023 14:40 Initial 99876 -9 LOINC Systolic Blood Pressure 100 mm[Hg] 03/12/2023 14:40 Initial 8480- 6 LOINC Diastolic Blood Pressure 68 mm[Hg] 03/12/2023 14:40 Initial 8462- 4 LOINC Body Surface Area 1.84 m2 03/12/2023 14:40 Initial 3140- 1 LOINC Height 172.720 0 cm 68.00 in 03/12/2023 14:40 Initial 8302- 2 [facility] O2 Saturation 95 % 2022 14:40 Initial 48000 -5 LOINC Pulse 56.0 /min 03/12/2023 14:40 Initial 8867- 4 LOINC Respiration 16 /min 03/12/20 14:40 Initial 9279- 1 [facility] Temperature 37.5 Antonella 99.5 F 03/12/20 14:40 Initial 8310- 5 [facility] Weight 70.31 kg 155.00 lbs 03/12/2023 14:40 Initial 94256 -7 [facility] Medications Medication Start Date End Date Route Frequency Dose Code Code System Medication Instructions Home Meds Methocarbamol 750MG Oral Tablet 12/25/2022 03/12/2023 By Mouth As needed every 8 hr 485883 RxNorm 1-2 TABLET By Mouth As needed every 8 hr [place]-28 30 MCG-0.15 MG; NA Oral Tablet 12/25/2022 03/12/2023 By Mouth Daily 1 TABLET 246531 RxNorm 1 TABLET By Mouth Daily Macrobid 100MG Oral Capsule 02/20/2023 03/12/2023 By mouth Twice a day 1 TABLET 539798 RxNorm 1 TABLET By mouth Twice a day X 7 DAYS Pyridium 100MG Oral Tablet 02/20/2023 03/12/2023 By mouth As needed every 8 hr 1 TABLET 6560046 RxNorm 1 TABLET By mouth As needed every 8 hr for urinary pain ZyrTEC Allergy 10MG Oral Capsule, Liquid Filled 03/12/2023 Unknown By Mouth Daily 1 CAPSULE 8411533 RxNorm 1 CAPSULE By Mouth Daily Fluticasone 0.05MG/1Actuati on Nasal [place] 03/12/2023 Unknown Nasal Daily 1 Sprays 7225152 RxNorm 1 Spr ays Nasal Daily Azithromycin 500MG Oral Tablet 06/04/2024 Unknown By Mouth x1 NOW 2 TABLET 131196 RxNorm 2 TABLET By Mouth x1 NOW [...] Status Code Code System SEASONAL ALLERGY active 276783181 SNO MED-CT FAMILY PLANNING 06/20/2020 active 424507995 SNO MED-CT BITE OF INSECT active 482671230 SNOME D-CT ES OF VAGINA 08/07/2022 active 07035491 S NOMED-CT MENORRHAGIA active 240398852 SNOMED-C T PAINFUL NECK active 46294337 SNOMED- CT ADHD OF CHILDHOOD 07/22/2019 resolved 623482190 S NOMED-CT SEASONAL NASAL ALLERGY 07/22/2019 resolved 368473 001 SNOMED-CT HISTORY OF CHICKENPOX 07/22/2019 resolved 9166489 08 SNOMED-CT Allergies and Adverse Reactions Allergy Substance Reaction Severity Start Date Concern Status Co de Code System Active seasonal allergies Active No Known Drug Allergies Active 314947763 SNOMED-CT No Known Drug Allergies Active 740750865 SNOMED-CT Plan of Treatment Description Due Date Details Instructions DEPRESSION SCREENING DUE 06/20/2021 Encounters Encounter Diagnosis Start Date Code Code Sys tem Seasonal allergic rhinitis 03/12/2023 754698666 S NOMED-CT Personal Care Team Section Performer Name Performer Role Active Date Inactive Da te Progress Notes [facility] 03/12/2023 15:06 Admission Date/Time: 03/12/2023 11:24 [...] is an 17 yo female presents to [facility] today for sore throat and [...] records Referring and communicating with other health primary care coordinator x Obtaining and/or reviewing separately obtained history Independent interpretation of results and communicating results to the patient/family/caregiver x Performing a medically appropriate examination/evaluation Care coordination (not reported separately) x Discharge instructions given to patient. Ordered & Completed Meds Table: No Current Medications Available Discharge Med List: Discharge Medications: No Discharge Medications Available [facility] 03/12/2023 15:20 Current Date/Time: 03/12/2023 15:03 Patient Name: NELA MANZANARES was seen at [facility] [phone] on Date of Service: 03/12/2023 . They may return to school on 03/13/2023 with No restrictions . .
--- OUTSIDE RECORDS SUMMARY | 2025-01-20 06:00 | XMS_ITS ---
Author Organization Unknown Address [address] [place] [phone] Phone Care Team Providers Care Director Of Patient Safety Name Role Phone JOSUE FULTON Attending Unavailable [...] MICR O - Collect Date/Time: 02/20/2023 18:44 [facility] ID: [id number] [address] [place] [address], [phone] LOINC: Test Value Unit Reference Range Code [...] TEST - Colle ct Date/Time: 02/20/2023 18:43 [facility] ID: [id number] [address] [place] [address], [phone] LOINC: Test Value Unit Reference Range Code Code System Flag TEST PERFORMED URINE PREG (URINE) NEGATIVE LOT#: [id number] EXP DATE: 2023-12-11 QC: ACCEPTABLE Social History Type Status Start Date End Date Code Code Syst em Smoking History Never smoker (Never Smoked) 587948451 SNOMED CT Sex Female Sexual Orientation Straight or Heterosexual 16383187 SNOMED CT Gender Identity Female [id number] [address] Vital Signs Vital Sign Value Unit [place] Value [place] Unit Date/Time Recent/Initial? Code Code System Body Mass Index 24.50 kg/m2 02/20/2023 18:36 Initial 64473 -5 LOINC Body Mass Index Percentile 77 % 02/20/2023 18:36 Initial 93379 -9 LOINC Systolic Blood Pressure 112 mm[Hg] 02/20/2023 18:36 Initial 8480- 6 LOINC Diastolic Blood Pressure 70 mm[Hg] 02/20/2023 18:36 Initial 8462- 4 LOINC Body Surface Area 1.85 m2 02/20/2023 18:36 Initial 3140- 1 LOINC Height 171.450 0 cm 67.50 in 02/20/2023 18:36 Initial 8302- 2 INC O2 Saturation 98 % 2022 18:36 Initial 36237 -5 [facility] Pulse 91.0 /min 02/20/2023 18:36 Initial 8867- 4 INC Temperature 37.2 Antonella 98.9 F 02/21/20 18:36 Initial 8310- 5 [facility] Weight 72.03 kg 158.80 lbs 02/20/2023 18:36 Initial 40984 -7 [facility] Medications Medication Start Date End Date Route Frequency Dose Code Code System Medication Instructions Home Meds Medrol Dosepak 4MG Oral Tablet 12/25/2022 02/20/2023 By Mouth As Directed 1 PACK 658730 RxNorm 1 PACK By Mouth As Directed Methocarbamol 750MG Oral Tablet 12/25/2022 03/12/2023 By Mouth As needed every 8 hr 176572 RxNorm 1-2 TABLET By Mouth As needed every 8 hr Granite-28 30 MCG-0.15 MG; NA Oral Tablet 12/25/2022 03/12/2023 By Mouth Daily 1 TABLET 858442 RxNorm 1 TABLET By Mouth Daily Macrobid 100MG Oral Capsule 02/20/2023 03/12/2023 By mouth Twice a day 1 TABLET 471277 RxNorm 1 TABLET By mouth Twice a day X 7 DAYS Pyridium 100MG Oral Tablet 02/20/2023 03/12/2023 By mouth As needed every 8 hr 1 TABLET 7245460 RxNorm 1 TABLET By mouth As needed every 8 hr for urinary pain ZyrTEC Allergy 10MG Oral Capsule, Liquid Filled 03/12/2023 Unknown By Mouth Daily 1 CAPSULE 2530100 RxNorm 1 CAPSULE By Mouth Daily Fluticasone 0.05MG/1Actuati on Nasal [place] 03/12/2023 Unknown Nasal Daily 1 Sprays 1496637 RxNorm 1 Spr ays Nasal Daily Azithromycin 500MG Oral Tablet 06/04/2024 Unknown By Mouth x1 NOW 2 TABLET 883967 RxNorm 2 TABLET By Mouth x1 NOW [...] Status Code Code System SEASONAL ALLERGY active 859214473 SNO MED-CT FAMILY PLANNING 06/20/2020 active 938675011 SNO MED-CT BITE OF INSECT active 830811577 SNOME D-CT ES OF VAGINA 08/07/2022 active 73163990 S NOMED-CT MENORRHAGIA active 882659353 SNOMED-C T PAINFUL NECK active 68975354 SNOMED- CT ADHD OF CHILDHOOD 07/22/2019 resolved 851031440 S NOMED-CT SEASONAL NASAL ALLERGY 07/22/2019 resolved 239193 001 SNOMED-CT HISTORY OF CHICKENPOX 07/22/2019 resolved 1992423 08 SNOMED-CT Allergies and Adverse Reactions Allergy Substance Reaction Severity Start Date Concern Status Co de Code System Active seasonal allergies Active No Known Drug Allergies Active 772766949 SNOMED-CT No Known Drug Allergies Active 793862653 SNOMED-CT Plan of Treatment Description Due Date Details Instructions DEPRESSION SCREENING DUE 06/20/2021 Future Order Description Future Order Date Futu re Order Loinc: CULTURE URINE 02/20/2023 LOINC: 630-4 TRICHOMONAS VAGINALIS FEMALE RNA QUAL LOINC: 09763-4 GC/CHLAMYDIA PCR [place] 02/20/2023 LOINC: 448 06-8 CULTURE YEAST, WITH IDENTIFICATION 02/20/2023 LOINC: 62767-3 BACTERIAL VAGINOSIS RAPID TEST 02/20/2023 LOINC: 6410-5 Encounters Encounter Diagnosis Start Date Code Code Sys tem Urinary tract infectious disease 02/20/2023 80117441 SNOMED-CT Personal Care Team Section Performer Name Performer Role Active Date Inactive Da te Progress Notes [facility] 02/20/2023 19:27 Admission Date/Time: 02/20/2023 18:07 Convenient [...] up. This examination was transcribed using the [employer] voice recognition system without human psychologist industrial organizational. In an effort to expedite patient care, this report has not been adjusted for typographical, or medical or syntax by a trained medical staff manager. Allergy Table Allergen Type Reaction seasonal allergies [...] NEGATIVE 02/20/2023 18:38 02/20/2023 18:43 final LOT#: [id number] 02/20/2023 18:38 02/20/2023 18:43 final EXP DATE: [...] day X 7 DAYS 02/20/2023 JOSUE FULTON Granite-28 30 MCG-0.15 MG; NA Oral Tablet 1 TABLET By Mouth Daily 12/25/2022 Blanco Gallego Methocarbamol 750MG Oral Tablet 1-2 TABLET By Mouth As needed every 8 hr 12/25/2022 Blanco Gallego
--- OUTSIDE RECORDS SUMMARY | 2025-01-20 06:00 | XMS_ITS ---
Author Organization Unknown Address [address] [place] [address] [phone] Phone Care Team Providers Care Monitoring Manager Name Role Phone Blanco Gallego Attending Unavailable [...] em Smoking History Never smoker (Never Smoked) 037289121 SNOMED CT Sex Female Sexual Orientation Straight or Heterosexual 33413003 SNOMED CT Gender Identity Female [id number] [address] Medications Medication Start Date End Date Route Frequency Dose Code Code System Medication Instructions Home Meds Medrol Dosepak 4MG Oral Tablet 12/25/2022 02/20/2023 By Mouth As Directed 1 PACK 405696 RxNorm 1 PACK By Mouth As Directed Methocarbamol 750MG Oral Tablet 12/25/2022 03/12/2023 By Mouth As needed every 8 hr 071491 RxNorm 1-2 TABLET By Mouth As needed every 8 hr [place]-28 30 MCG-0.15 MG; NA Oral Tablet 12/25/2022 03/12/2023 By Mouth Daily 1 TABLET 729271 RxNorm 1 TABLET By Mouth Daily Macrobid 100MG Oral Capsule 02/20/2023 03/12/2023 By mouth Twice a day 1 TABLET 162192 RxNorm 1 TABLET By mouth Twice a day X 7 DAYS Pyridium 100MG Oral Tablet 02/20/2023 03/12/2023 By mouth As needed every 8 hr 1 TABLET 3789073 RxNorm 1 TABLET By mouth As needed every 8 hr for urinary pain ZyrTEC Allergy 10MG Oral Capsule, Liquid Filled 03/12/2023 Unknown By Mouth Daily 1 CAPSULE 2817830 RxNorm 1 CAPSULE By Mouth Daily Fluticasone 0.05MG/1Actuati on Nasal [place] 03/12/2023 Unknown Nasal Daily 1 Sprays 8163167 RxNorm 1 Spr ays Nasal Daily Azithromycin 500MG Oral Tablet 06/04/2024 Unknown By Mouth x1 NOW 2 TABLET 736141 RxNorm 2 TABLET By Mouth x1 NOW [...] Status Code Code System SEASONAL ALLERGY active 978191789 SNO MED-CT FAMILY PLANNING 06/20/2020 active 059317849 SNO MED-CT BITE OF INSECT active 924723206 SNOME D-CT ES OF VAGINA 08/07/2022 active 94624268 S NOMED-CT MENORRHAGIA active 027206407 SNOMED-C T PAINFUL NECK active 44495962 SNOMED- CT ADHD OF CHILDHOOD 07/22/2019 resolved 872838198 S NOMED-CT SEASONAL NASAL ALLERGY 07/22/2019 resolved 093240 001 SNOMED-CT HISTORY OF CHICKENPOX 07/22/2019 resolved 0171258 08 SNOMED-CT Allergies and Adverse Reactions Allergy Substance Reaction Severity Start Date Concern Status Co de Code System Active seasonal allergies Active No Known Drug Allergies Active 388161392 SNOMED-CT No Known Drug Allergies Active 098625516 SNOMED-CT Plan of Treatment Description Due Date Details Instructions DEPRESSION SCREENING DUE 06/20/2021 Personal Care Team Section Performer Name Performer Role Active Date Inactive David mccallum
--- OUTSIDE RECORDS SUMMARY | 2025-01-20 06:00 | XMS_ITS | Referral Summary ---
Author Organization [facility] Address [address] [place] [address] Care Team Providers Care Social Services Coordinator Name Role Phone Faustino Matta MD Primary Care Provider [phone] Source Comments [facility],non-owned Affiliates and Associated Physician Practices is amultiple site organization consisting of ambulatory clinics and hospital sitesin [place], [place], [place] and [place]. This disclosure is being madepursuant to the Care Everywhere program and may not contain all information available regarding this patient. Last updated 18.[facility] Encounters Date Type Department Care Team Description 12/15/2024 Telephone [facility] [address] [place] [address] Akosua Burns Appointment 11/24/2024 Orders Only [facility] - PREPRESS MANAGER [address] [place] [phone] Jennifer Paul MD 11/19/2024 1:00 PM REAL ESTATE DEVELOPER - 11/19/2024 11:59 PM REAL ESTATE DEVELOPER Hospital Encounter [facility] [address] [place] [address] Tiff Arriaza MD Discharge Disposition: Home or Self Care 11/03/2024 Orders Only [facility] [address] [place] [address] Britany Garcia, STATION COOK-CALENDER LET OFF OPERATOR Abnormal genetic test in ; Abnormal ultrasound 11/02/2024 Orders Only [facility] [place] [address] Shania Mcintosh RN 11/02/2024 Telephone [facility] [address] [place] [address] Britany Garcia, STATION COOK-CALENDER LET OFF OPERATOR LABS ONLY 10/26/2024 Telephone [facility] [address] [place] [address] Akosua Burns Appointment from Last 3 Months Allergies No known [...] CYTOMEGALOVIRUS AB IGG AVIDITY 11/24/2024 2:44 PM REAL ESTATE DEVELOPER SONOGRAM - COMPLETE Routine 11/19/2024 1 :11 PM REAL ESTATE DEVELOPER Encounter for ultrasound (HCC) Rh negative, antepartum (HCC) Rubella non-immune status, antepartum (HCC) Primigravida, antepartum ([facility]) 28 weeks gestation of ([facility]) 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 It has not been cleared or approved by FDA. This assay has been validated pursuant to the CLIA regulations and is used for clinical purposes. For additional information, please refer to http://education.[employer]eles[employer]/faq/DRN498 (This link is being provided for informational/ educational purposes only.) Test Performed at: [employer] [address] [place] [address] KWAKU SUMMERS MD,PHD,STARR 11/24/2024 2:44 PM REAL ESTATE DEVELOPER 11/24/2024 2:45 PM REAL ESTATE DEVELOPER Jennifer Paul MD LAB - SEROLOGY LEIF GONZ[facility] [address] [place] [address] * SONOGRAM - COMPLETE (11/19/2024 1:11 PM REAL ESTATE DEVELOPER) Linked Results Indication ======== 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 [...] 3 lb 8 oz EFW by Hadlock ([id number]) appropriate Growth Overview Exam date [place] BPD [...] redraw of CMV Avidity Coding ====== Procedures 22700: US Preg Uterus Follow Up [employer] PACS Anatomical Region Laterality Modality Other 11/19/2024 1:11 PM REAL ESTATE DEVELOPER Jonny Ruizcherie [facility] ORDERABLES * (ABNORMAL) CYTOMEGALOVIRUS ANTIBODY IGG BLOOD (11/10/2024 1:50 PM REAL ESTATE DEVELOPER) Cytomegalovirus Antibody IgG >10.00(H) U/mL [facility] Comment: U/mL Interpretation ----- <0.60 Negative 0.60-0.69 Equivocal > or = 0.70 Positive A positive result indicates that the patient has antibody to CMV. It does not differentiate between an active or past infection. Test Performed at: [facility] [address] [place] [address] PINEDA TAM MD 11/10/2024 1:50 PM REAL ESTATE DEVELOPER 11/10/2024 1:53 PM REAL ESTATE DEVELOPER Britany Garcia STATION COOK-CALENDER LET OFF OPERATOR LAB - CHEMI STRY ORDERABLES [facility] [address] [place] [address] from Last 3 Months Care Teams Social Services Coordinator Relationship Specialty Start Date End Date Faustino Matta MD [address] [address] PCP - General Pediatrics 08/05/12
--- OUTSIDE RECORDS SUMMARY | 2025-01-20 06:00 | XMS_ITS | Clinical Summary ---
Author Organization [facility] Address [address] [place] [address] Care Team Providers Care Supply Tech Name Role Phone Faustino Matta MD Primary Care Provider [phone] Source Comments [facility],non-owned Affiliates and Associated Physician Practices is amultiple site organization consisting of ambulatory clinics and hospital sitesin [place], [place], [place] and [place]. This disclosure is being madepursuant to the Care Everywhere program and may not contain all information available regarding this patient. Last updated 18.[facility] Allergies No known active allergies Medications [...] Type Department Care Team Description 12/15/2024 Telephone [facility] [address] [place] [address] Akosua Burns Appointment 11/24/2024 Orders Only [facility] - CANVAS WORKER APPRENTICE [address] [place] [address] Jennifer Paul MD 11/19/2024 1:00 PM COMMERCIAL ENGINEER - 11/19/2024 11:59 PM COMMERCIAL ENGINEER Hospital Encounter [facility] [address] [place] [address] Tiff Arriaza MD Discharge Disposition: Home or Self Care 11/03/2024 Orders Only [facility] [address] [place] [address] Britany Garcia, UTILITY TELLER-VIDEO EDITOR Abnormal genetic test in ; Abnormal ultrasound 11/02/2024 Orders Only [facility] [address] [place] [address] Shania Mcintosh RN 11/02/2024 Telephone [facility] [address] [place] [address] Britany Garcia, UTILITY TELLER-VIDEO EDITOR LABS ONLY 10/26/2024 Telephone [facility] [address] [place] [address] Akosua Burns Appointment from Last 3 Months Family History Relation [...] CHLAMYDIA/GONORRHEA SCREENING 2020 MENINGOCOCCAL (Group B) VACCINE SHARED DECISION-MAKING (1 of 2 - Standard) 2020 HEPATITIS [...] patient's age to complete this topic MENINGOCOCCAL GROUPS A/C/Y/W VACCINE Aged Out No longer eligible b ased on patient's age to complete this topic PNEUMOCOCCAL VACCINE Aged Out No long er eligible based on patient's age to complete this topic Respiratory Syncytial Virus (RSV) Vaccine Pt: or over 60 yrs (No Doses Required) Completed Procedures Procedure Name Priority Date/Time Associated Diagnosis Comments CYTOMEGALOVIRUS AB IGG AVIDITY 11/24/2024 2:44 PM COMMERCIAL ENGINEER SONOGRAM - COMPLETE Routine 11/19/2024 1 :11 PM COMMERCIAL ENGINEER Encounter for ultrasound (HCC) Rh negative, antepartum (HCC) Rubella non-immune status, antepartum (HCC) Primigravida, antepartum ([facility]) 28 weeks gestation of ([facility]) Genetic anomalies of leukocytes ([facility]) Abnormal genetic test in CYTOMEGALOVIRUS ANTIBODY IGG BLOOD 11/10/2024 1:50 PM COMMERCIAL ENGINEER from Last 3 Months Results * CYTOMEGALOVIRUS AB IGG AVIDITY (11/24/2024 2:44 PM COMMERCIAL ENGINEER) Pathologist [facility] Cytomegalovirus Antibody IgG Avidity Index 0.90 [facility] [...] analytical performance characteristics have been determined by [employer]. It has not been cleared or approved by FDA. This assay has been validated pursuant to the CLIA regulations and is used for clinical purposes. 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 [...] 3 lb 8 oz EFW by Hadlock ([id number]) appropriate Growth Overview Exam date [place] BPD [...] redraw of CMV Avidity Coding ====== Procedures 68336: US Preg Uterus Follow Up [employer] PACS Anatomical Region Laterality Modality Other 11/19/2024 1:11 PM COMMERCIAL ENGINEER Jonny Cabrera DO [facility] ORDERABLES * (ABNORMAL) CYTOMEGALOVIRUS ANTIBODY IGG BLOOD (11/10/2024 1:50 PM COMMERCIAL ENGINEER) Cytomegalovirus Antibody IgG >10.00(H) U/mL [employer] Comment: U/mL Interpretation ----- <0.60 Negative 0.60-0.69 Equivocal > or = 0.70 Positive A positive result indicates that the patient has antibody to CMV. It does not differentiate between an active or past infection. Test Performed at: [facility] [address] [facility] [place] [address] PINEDA TAM MD 11/10/2024 1:50 PM COMMERCIAL ENGINEER 11/10/2024 1:53 PM COMMERCIAL ENGINEER Britany Garcia APRN-VIDEO EDITOR LAB - CHEMI STRY ORDERABLES [facility] [address] [place] [address] from Last 3 Months Care Teams Supply Tech Relationship Specialty Start Date End Date Faustino Matta MD [address] [address] PCP - General Pediatrics 08/05/12
--- OUTSIDE RECORDS SUMMARY | 2025-01-20 06:00 | XMS_ITS | Data Portability ---
Author Organization [facility] , [facility] Address [address] [place] [address] Assessment No assessment recorded. Plan of Treatment Reminders Order Date Submit Date Provider Last Modified By Organization Details Last Modified Time Details Appointments None recorded. Lab CBC w/ auto diff 2024 025 NEEDHAM [facility], [address] [place], [address], 5 12:24:38 glucose tolerance test, post-50G, 1-hour 2024 025 [facility]pp[facility], [address] [place], [address], 5 12:35:39 obstetric screen, serum or blood 2024 025 NEEDHAM [facility], [address] [place], [address], 5 14:47:18 Referral None recorded. Procedures None recorded. Surgeries None recorded. Imaging None recorded. Medication Orders None recorded. Patient TargetsNo targets recorded. Patient Instructions Encounter Date Encounter Id Patient Instructions Last Modified By Organization Details Last Modified Time 11/18/2024 [id number] learning about screening for gestational diabetes Not available 11/18/2024 15:10:20 11/26/2024 [id number] Anxiety During and After : Care Instructions Not available 11/26/2024 17:57:56 Reason for Referral None Reported. Results Created Date Observation Date Name Description Value Unit Range Abnormal Flag Note LastModifiedBy Organization Detail LastModifiedTime 11/18/1911/19/2024 CBC (INCL UDES DIFF/ PLT) WBC 7.6 thous and/u L 4.0 - 9.8 normal Not Available [facility] [address] [place] [address], [address], 11/19/2024 12:24:38 11/18/19 25 11/19/2024 CBC (INCL UDES DIFF/ PLT) RBC 3.4 jonathon on/uL 3.9 - 4.9 low Not Available [facility] [address] [place] [address], [address], 11/19/2024 12:24:38 11/18/19 25 11/19/2024 CBC (INCL UDES DIFF/ PLT) hemoglobin 11.0 g/dL 11.8 - 14.8 low Not Available [facility] [address] [place] [address], [address], 11/19/2024 12:24:38 11/18/19 25 11/19/2024 CBC (INCL UDES DIFF/ PLT) hematocrit 32.6 % 35.5 - 44.0 low Not Available [facility] [address] [place] [address], [address], 11/19/2024 12:24:38 11/18/19 25 11/19/2024 CBC (INCL UDES DIFF/ PLT) MCV 96.7 fL 82.0 - 99.0 normal Not Available [facility] [address] [place] [address], [address], 11/19/2024 12:24:38 11/18/1911/19/2024 CBC (INCL UDES DIFF/ PLT) MCH 32.6 pg 27.2 - 32.6 normal Not Available [facility] [address] [place] [address], [address], 11/19/2024 12:24:38 11/18/19 25 11/19/2024 CBC (INCL UDES DIFF/ PLT) MCHC 33.7 g/dL 31.5 - 35.5 normal Not Available [facility] [address] [place] [address], [address], 11/19/2024 12:24:38 11/18/19 25 11/19/2024 CBC (INCL UDES DIFF/ PLT) RDW-CV 12.2 % 11.5 - 14.5 normal Not Available [address], [address], 11/19/2024 12:24:38 11/18/19 25 11/19/2024 CBC (INCL UDES DIFF/ PLT) platelet 294 thous and/u L 140 - 350 normal Not Available [address], [address], 11/19/2024 12:24:38 11/18/19 25 11/19/2024 CBC (INCL UDES DIFF/ PLT) MPV 10.4 fL 9.3 - 12.4 normal Not Available [address], [address], 11/19/2024 12:24:38 11/18/19 25 11/19/2024 CBC (INCL UDES DIFF/ PLT) absolute neutrophil 5.66 thous and/u L 1.90 - 7.00 normal Not Available [address], [address], 11/19/2024 12:24:38 11/18/19 25 11/19/2024 CBC (INCL UDES DIFF/ PLT) absolute lymphocyte 1.32 thous and/u L 0.70 - 4.50 normal Not Available [address], [address], 11/19/2024 12:24:38 11/18/19 25 11/19/2024 CBC (INCL UDES DIFF/ PLT) absolute monocyte 0.46 thous and/u L 0.10 - 1.30 normal Not Available [address], [address], 11/19/2024 12:24:38 11/18/19 25 11/19/2024 CBC (INCL UDES DIFF/ PLT) absolute eosinophil 0.05 thous and/u L <0.70 normal Not Available [address], [address], 11/19/2024 12:24:38 11/18/19 25 11/19/2024 CBC (INCL UDES DIFF/ PLT) absolute basophil 0.03 thous and/u L <0.20 normal Not Available [address], [address], 11/19/2024 12:24:38 11/18/19 25 11/19/2024 CBC (INCL UDES DIFF/ PLT) absolute immature granulocyte 0.08 thous and/u L <0.03 high Not Available [address], [address], 11/19/2024 12:24:38 11/18/19 25 11/19/2024 (50G) 1HR - GLUCO SE GIA ANCE TEST, GESTA ELDER L SCREE N glucose (50g) 1 hour 144 mg/dL <135 high Not Available [address], [address], 11/19/2024 12:35:39 11/18/19 25 11/19/2024 OB 28W (SYPH HIV 1/2 Ag/Ab Non-Re active non-re active normal Not Available [address], [address], 11/19/2024 14:47:18 11/18/19 25 11/19/2024 OB 28W (SYPH syphilis Ab Non-Re active non-re active normal Not Available [address], [address], 11/19/2024 14:47:18 11/23/19 25 11/24/2024 (100G ) 3HR - GLUCO SE GIA ANCE TEST, GESTA ELDER L SCREE N glucose (100g) fasting 86 mg/dL <95 normal Not Available [address], [address], 11/24/2024 14:31:33 11/23/19 25 11/24/2024 (100G ) 3HR - GLUCO SE GIA ANCE TEST, GESTA ELDER L SCREE N glucose (100g) 1 hour 198 mg/dL <180 high Not Available [facility] [address] [place], [address], 11/24/2024 14:31:33 11/23/19 25 11/24/2024 (100G ) 3HR - GLUCO SE GIA ANCE TEST, GESTA ELDER L SCREE N glucose (100g) 2 hour 163 mg/dL <155 high Not Available [facility] [address] [place], [address], 11/24/2024 14:31:33 11/23/19 25 11/24/2024 (100G ) 3HR - GLUCO SE GIA ANCE TEST, GESTA ELDER L SCREE N glucose (100g) 3 hour 145 mg/dL <140 high Not Available [facility] [address] [place], [address], 11/24/2024 14:31:33 09/23/20 24 09/23/2024 US, obste tric, 2nd trime ster No observ ation record ed. [email or web address] [facility] [address] [place] [address], [address], 09/24/2024 15:24:20 10/23/20 24 10/21/2024 US, obste tric No observ ation record ed. [email or web address] [facility] [address] [place] [address], [address], 11/30/2024 13:18:29 11/20/19 25 11/19/2024 US, obste tric No observ ation record ed. [email or web address] [facility] [address] [place] [address], [address], 12/02/2024 14:05:06 Result Notes None recorded. 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) WOLF GUADARRAMA NP [address] [place] [address], [address], [facility] - [facility] IV 5 18:48:16 RhD negative 481587251 Active 2024 RH (D) NIPT detected will need [place] [address] [place] [address], [address], [facility] - [facility] IV 5 18:49:16 Large for gestation age fetus 442056694 Active 2024 EFW 98%tile on 10/22 Echogenic bowel 11/19-94%til e WOLF GUADARRAMA NP [facility] [place], [address], [facility] - [facility] IV 5 14:05:39 Gestationa l diabetes mellitus 28798313 Active 2024 WOLF GUADARRAMA NP [facility] [place], [address], [facility] - [facility] IV 5 17:52:44 Problem Notes None recorded. Procedures Surgical History Date Name Laterality Status Provider Name and Address Organization Details Recorded Time Appendectomy completed Rebecca Chadwick [place] - [facility] IV 06/09/2024 15:08:50 Imaging Results Imaging Date Name Status LastModified by Organiz ation Details LastModified Time 09/23/2024 US, obstetric, 2nd trimester completed [email or web address] [facility] [address] [place] [address], [address], 09/24/2024 15:24:20 10/21/2024 US, obstetric completed [email or web address] [facility] [place] [address] [place], [address], 11/30/2024 13:18:29 11/19/2024 US, obstetric completed [email or web address] [place] [address] [place], [address], 12/02/2024 14:05:06 Procedure Notes None recorded. Medical [...] 4 172.72 cm 26 kg/m2 83 % 23106.2 9527 g 120 mm[Hg] 70 mm[Hg] Lucinaandrea Rossi [facility] IV 4 15:43:01 Date Recorded Body weight Body mass index (BMI) Percentile per age and sex Body mass index (BMI) Body height Body temperature Systolic blood pressure Diastolic blood pressure Provider Name and Address Organization Details Last Updated DateTime 4 13700.8 40600 g 85 % 26.7 kg/m2 172.72 cm 96.6 [degF] 118 mm[Hg] 68 mm[Hg] Cristela Harpersangeeta [facility] IV 4 14:19:52 Date Recorded Body weight Body mass index (BMI) Body mass index (BMI) Percentile per age and sex Body height Systolic blood pressure Diastolic blood pressure Provider Name and Address Organization Details Last Updated DateTime 5 37592.4 4186 g 27.1 kg/m2 86 % 172.72 cm 110 mm[Hg] 70 mm[Hg] [facility] IV 5 14:46:18 Date Recorded Body weight Body mass index (BMI) Body mass index (BMI) Percentile per age and sex Body height Systolic blood pressure Diastolic blood pressure Provider Name and Address Organization Details Last Updated DateTime 5 51795.6 266 g 27.4 kg/m2 87 % 172.72 cm 112 mm[Hg] 68 mm[Hg] [facility] IV 5 16:44:47 Date Recorded Body weight Body mass index (BMI) Percentile per age and sex Body mass index (BMI) Body height Systolic blood pressure Diastolic blood pressure Provider Name and Address Organization Details Last Updated DateTime 5 01583.8 4949 g 86 % 26.9 kg/m2 172.72 cm 112 mm[Hg] 70 mm[Hg] [facility] IV 5 14:34:15 Social History Question Answer Notes LastModified by Organizat ion Details LastModified Time Tobacco Smoking Status Never Smoker Rebecca acosta, [facility] IV 06/09/2024 15:08:08 What Is Your Level Of Alcohol Consumption? None Information not available 06/09/2024 If You Are , What Was Your Level Of Alcohol Consumption Prior To ? None Information not available 06/09/2024 Are You Blind Or Do You Have Difficulty Seeing? No Information not available 06/23/2024 Are You Deaf Or Do You Have Serious Difficulty Hearing? No Information not available 06/23/2024 What Type Of Diet Are You Following? REGULAR [email or web address] Information not available 06/09/2024 How Many Children Do You Have? 0 [email or web address] Information not available 06/23/2024 What Is Your Relationship Status? Domestic Partner [email or web address] Information not available 06/09/2024 Are You Sexually Active? Yes [email or web address] Information not available 06/09/2024 Do You Use Any Illicit Or Recreational Drugs? No [email or web address] Information not available 06/09/2024 Do You Or Have You Ever Used Any Other Forms Of Tobacco Or Nicotine? No Information not available 06/09/2024 Sex: Unknown Functional Status Question Answer Note LastModified by Organization D etails LastModified Time What is your exercise level? None Information not available 06/23/2024 Mental Status None recorded. Family History Relationship Description Onset Age of this Age Resolved Age Notes LastModified by Organization Details LastModified Time Father No current problems or disability Not available 05/13 15:07:47 Mother No current problems or disability [email or web address] Not available 05/13 15:07:47 Medical History Condition Response Other Cancer N High Blood Pressure N Colon Cancer N Cytomegalovirus N Hyperthyroidism N Breast Cancer N Herpes (HSV) N Blood Transfusion N MRSA N Lung Cancer N Hypothyroidism N Depression N Incontinence N Panic Attacks N Neurological Disorder N Deep Vein Thrombosis N Anxiety Disorder N Autoimmune disease N Arthritis N Tuberculosis/Positive PPD N Shingles N Polycystic Ovarian Syndrome N Infertility N Cervical Cancer N Chlamydia N Hematuria N Stroke N Varicosities N Crohn's Disease N Seasonal allergies N Alzheimer's/Dementia N COPD/Emphysema N HPV/Genital Warts N Endometriosis N IBS (Irritable Bowel Syndrome) N History of Abnormal Pap N High Cholesterol N Liver Disease N Kidney Infection N Fibromyalgia N Ulcer N Kidney Disease N HIV N Gallbladder disease N Sickle Cell Disease/Trait N Von Willebrand disease N ADD/ADHD N Eating Disorder N Anemia N Diabetes Mellitus (non-insulin dependent ) N Ovarian Problems N Multiple Sclerosis N Gonorrhea N Frequent Urinary Tract infections N Osteopenia N Headaches/migraines N GERD (reflux) N Ovarian Cancer N Diabetes (insulin dependent) N Seizures/Epilepsy N Breast Problems N Fibroids N Heart Attack N Asthma N Lupus N Endometrial Cancer N Rubella [...] SNOMED-CT Code Diagnosis ICD10 Code Diagnosis Note [id number] WOLF GUADARRAMA NP [address] [address] 06/09/2024 15:02:07 06/10/2024 15:59:32 Missed period 01587798 N92.6 Patient with possible early gestation. Patient is unsure of LMP possibly 6.17.24. Denies VB or abnormal discharge. SAB precaution s reviewed. To RTC in 2-3 weeks for repeat TVUS [id number] WOLF GUADARRAMA NP [address] [address] 06/23/2024 14:51:10 06/23/2024 16:28:07 test positive 346463114 Z32.01 Pt presents today for a confirmati [...] vitamins daily---To xoplasmosi s precaution s reviewed-- -[facility] Guide; What to expect on your maternity journey -- -S/S of SAB reviewed and when to seek care RTC for 1st OB, Labs, and Physical. --BMI:24.9 [id number] WOLF GUADARRAMA NP [facility] [address] [place] [address] 07/22/2024 16:12:51 07/22/2024 16:55:54 Gestation period, 11 weeks 68893346 Z3A.11 screening 2437 02556 Z36.89 Normal 4003584 2 Z34.90 Pt comes in today for a New/First OB visit.Gest ation:11 w3 dEDD: -- PMH: Anxiety-- Medication s: Taking daily PNV, paxton supp for N/V and tylenol-- Previous OB History: n/a-- Mom/Sister s with hx of Pre-Eclamp kelli:denies -- History of Genital HSV:denies -- Genetic Questions in OB Episode Done-- Accepts [facility]. Discussed logging on to the [facility] portal to find Gender Results POC-- NOB labs done today-- Accepts [facility] -- RTC 4 weeks Guide: Given and reviewed. Toxoplasmo sis precaution s reviewed. Reviewed office visit schedule during . Reviewed Quickening and normal FHTs. Carrier de tection, molecular genetics 7997480 Z14.8 [id number] WOLF GUADARRAMA NP [address] [address] 08/19/2024 16:40:21 08/21/2024 12:29:30 Normal 36010544 Z34.90 Pt is here for a KEYONNA [...] for pre-term labor. Gestation period, 15 weeks 7903934 Z3A.15 declines AFP will offer again at next appt. [id number] WOLF GUADARRAMA NP [facility] [address] [place] [address] 09/07/2024 15:50:39 09/07/2024 16:37:32 Normal 09528717 Z34.92 Pt is here for a KEYONNA [...] for pre-term labor. Gestation period, 18 weeks 60707765 Z3A.18 [id number] WOLF GUADARRAMAJENNIFER [address] [address] 09/30/2024 15:30:33 10/03/2024 14:06:30 Normal 71787377 Z34.90 Pt is here for a KEYONNA [...] for pre-term labor. Gestation period, 21 weeks 45428956 Z3A.21 Backache 632009266 O99.8 91 M54.9 [id number] WOLFSTEPHENIE GUADARRAMA NP [address] [address] 10/21/2024 14:10:22 10/21/2024 14:50:59 Gestation period, 24 weeks 482188190 Z3A.24 Normal 8607085 2 Z34.92 Pt is here for a KEYONNA appointmen t. She is taking vitamins. She has no complaints or questions. Reports feeling movement. Denies vaginal bleeding, abdominal cramps, N/V, contractio ns, or LOF. Denies headache, vision changes, swelling of hands or face, and epigastric pain. Discussed PTL and precaution s given. There are no identifiab le risk factors for pre-term labor. [id number] WOLF GUADARRAMA NP [facility] [address] [place] [address] 11/18/2024 14:41:31 11/19/2024 15:28:39 Normal 75316182 Z34.92 Pt is here for a KEYONNA [...] for pre-term labor. Gestation period, 28 weeks 82078919 Z3A.28 screening 2437 [address]06 Z36.89 [id number] WOLF GUADARRAMA NP [facility] [address] [place] [address] 11/26/2024 16:40:34 11/29/2024 05:26:51 Gestational diabetes mellitus complicating 7214022483 9106 O24.419 *GDM education completed. Discussed diet- [...] for pre-term labor. Gestation period, 29 weeks 05401405 Z3A.29 [id number] WOLF GUADARRAMA NP [facility] [address] [place] [address] 12/02/2024 14:30:01 12/04/2024 14:24:45 High risk 55102339 O09.90 Pt is here for a KEYONNA [...] for pre-term labor. Gestation period, 30 weeks 74692925 Z3A.30 Gestationa l diabetes mellitus 66763565 O24.410 Health Concerns Section Related Observation LastModified by Organization Detai ls LastModified Time None Recorded Concern Status LastModified by Organization Details LastModified Time None Recorded Advance Directives Directive None Recorded Payers Encounter Date Sequence Insurance Name Policy Number Policy Rivers Covered Member ID Rivers Member ID Guarantor Name 09/30/2024 1 [facility] (MEDICAID HMO) [id number] Lani Ho [id number] Lani Ho 10/21/2024 1 [facility] (MEDICAID HMO) [id number] Lani Ho [id number] Lani Ho 11/26/2024 1 [place] Lani Ho [id number] Lani Ho 12/02/2024 1 [place] Lani Ho [id number] Lani Ho Notes Date Note Type Note Provider Name and Address Organization Details Recorded Time 09/30/2024 text/html Lani is 21.3 weeks. She is here for a routine visit. She reports normal movement and she is taking vitamins. Anatomy scan was done at [facility]. WOLF GUADARRAMA NP [address] [facility], [place], [address], [facility] IV 10/01/2024 10:29:53 10/21/2024 text/html Patient is [...] or visual disturbances. WOLF GUADARRAMA NP [address] [place], [address], [facility] [employer] IV 10/21/2024 14:38:09 11/18/2024 text/html Patient is [...] @ 1:48 p.m. WOLF GUADARRAMA NP [address] [place], [address], [facility] [email or web address] IV 11/18/2024 18:56:16 11/26/2024 text/html Patient is [...] has no concerns. WOLF GUADARRAMA NP [address] [place], [address], [facility] [email or web address] IV 11/26/2024 17:58:04 12/02/2024 text/html Patient is [...] Pt. has no concerns. WOLF GUADARRAMA NP [address] [facility], [place], [address], [facility] 12/03/2024 14:55:08 OBGyn Episode Ob Episode Information Episode Created Date Number of Fetuses Patient Bloodtype Patient rh Status Prepregnancy Weight lbs Domestic Partner Domestic Partner Phone Father Name Stock Shaper Status 07/22/20 24 1 B Negative OPEN Fetus Data First Name Last Name Admitted to NICU Weight (g) Sex Living Outcome Pediatric Complications Fetus ID Race Codes Race Delivery Type [id number] Problems Problem Notes Problem Name Start Date End Date Resolution Snomed Code Not e RhD negative 11/18/2024 908936181 RH (D) NIPT detected will need Rhogam PP Large for gestation age fetus 11/18/20241995492160954 EFW 98%tile on 10/22 Echogenic bowel 11/19-94%tile Rubella non-immune 11/18/2024 916861913 Gestational diabetes mellitus 11/26/2024 83865124 Abnormal finding on screening of mother 11/18/2024 879841617 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) Taye Calculation [...] in lbs Pre/Post Dialysis Refused With clothes 164.084906771035 BP Diastolic BP Location Tested BP Systolic [...] in lbs Pre/Post Dialysis Refused With clothes 164.383502488720 BP Diastolic BP Location Tested BP Systolic [...] in lbs Pre/Post Dialysis Refused With clothes 165.000020282861 BP Diastolic BP Location Tested BP Systolic [...] Type Weight in lbs Pre/Post Dialysis Refused 171.001109515483 BP Diastolic BP Location Tested BP Systolic [...] in lbs Pre/Post Dialysis Refused With clothes 175.000290091748 BP Diastolic BP Location Tested BP Systolic [...] Type Weight in lbs Pre/Post Dialysis Refused 178.984284131753 BP Diastolic BP Location Tested BP Systolic [...] Type Weight in lbs Pre/Post Dialysis Refused 180.667996233103 BP Diastolic BP Location Tested BP Systolic [...] Type Weight in lbs Pre/Post Dialysis Refused 177.872091895129 BP Diastolic BP Location Tested BP Systolic [...]
--- OUTSIDE RECORDS SUMMARY | 2025-01-20 06:00 | XMS_ITS ---
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 Role Phone [email or web address] Machado Social History Type Status Start Date End Date Code Code Syst em Smoking History Never smoker (Never Smoked) 381066327 SNOMED CT Sex Female Sexual Orientation Straight or Heterosexual 19489300 SNOMED CT Gender Identity Female 24073748456647 [address] Medications Medication Start Date End Date Route Frequency Dose Code Code System Medication Instructions Home Meds ZyrTEC Allergy 10MG Oral Capsule, Liquid Filled 03/12/2023 Unknown By Mouth Daily 1 CAPSULE 0677701 RxNorm 1 CAPSULE By Mouth Daily Fluticasone 0.05MG/1Actuatio n Nasal [place] 03/12/2023 Unknown Nasal Daily 1 Sprays 2248066 RxNorm 1 Spra ys Nasal Daily Azithromycin 500MG Oral Tablet 06/04/2024 Unknown By Mouth x1 NOW 2 TABLET 561090 RxNorm 2 TABLET By Mouth x1 NOW [...] Status Code Code System SEASONAL ALLERGY active 183749665 SNO MED-CT FAMILY PLANNING 06/20/2020 active 066559204 SNO MED-CT BITE OF INSECT active 374657136 SNOME D-CT ES OF VAGINA 08/07/2022 active 24029736 S NOMED-CT MENORRHAGIA active 437570688 SNOMED-C T PAINFUL NECK active 50253485 SNOMED- CT ADHD OF CHILDHOOD 07/22/2019 resolved 013721882 S NOMED-CT SEASONAL NASAL ALLERGY 07/22/2019 resolved 522432 001 SNOMED-CT HISTORY OF CHICKENPOX 07/22/2019 resolved 2895299 08 SNOMED-CT Allergies and Adverse Reactions Allergy Substance Reaction Severity Start Date Concern Status Co de Code System Active seasonal allergies Active No Known Drug Allergies Active 172994829 SNOMED-CT No Known Drug Allergies Active 008837478 SNOMED-CT Plan of Treatment Description Due Date Details Instructions DEPRESSION SCREENING DUE 06/20/2021 Encounters Encounter Diagnosis Start Date Code Code Sys tem Dysuria 06/03/2024 60785396 SNOMED-CT Personal Care Team Section Performer Name Performer Role Active Date Inactive Da te
--- OUTSIDE RECORDS SUMMARY | 2025-01-20 06:00 | XMS_ITS ---
Author Organization Unknown Address [address] [place] [phone] Phone Care Team Providers Care Steam Pan Sponger Name Role Phone Blanco Gallego Attending Unavailable [...] em Smoking History Never smoker (Never Smoked) 031832643 SNOMED CT Sex Female Sexual Orientation Straight or Heterosexual 37690298 SNOMED CT Gender Identity Female [id number] [address] Vital Signs Vital Sign Value Unit [place] Value [place] Unit Date/Time Recent/Initial? Code Code System Body Mass Index 21.85 kg/m2 06/07/2022 14:23 Initial 27313 -5 [facility] Body Mass Index Percentile 57 % 06/07/2022 14:23 Initial 77506 -9 [facility] Systolic Blood Pressure 118 mm[Hg] 06/07/2022 14:23 Initial 8480- 6 [facility] Diastolic Blood Pressure 72 mm[Hg] 06/07/2022 14:23 Initial 8462- 4 [facility] Body Surface Area 1.75 m2 06/07/2022 14:23 Initial 3140- 1 [facility] Height 171.450 0 cm 67.50 in 06/07/2022 14:23 Initial 8302- 2 [facility] O2 Saturation 99 % 2021 14:23 Initial 56342 -5 [facility] Pulse 107.0 /min 06/07/2022 14:23 Initial 8867- 4 [facility] Respiration 20 /min 06/07/20 14:23 Initial 9279- 1 [facility] Temperature 36.6 Antonella 97.8 F 06/07/20 14:23 Initial 8310- 5 [facility] Weight 64.23 kg 141.60 lbs 06/07/2022 14:23 Initial 50569 -7 [facility] Medications Medication Start Date End Date Route Frequency Dose Code Code System Medication Instructions Home Meds predniSONE 50MG Oral Tablet 06/07/2022 07/31/2022 By Mouth Daily 1 TABLET 598139 RxNorm 1 TABLET By Mouth Daily 30MCG-0.15MG-NA Oral Tablet 06/07/2022 09/12/2022 By Mouth Daily 1 TABLET 235038 RxNorm 1 TABLET By Mouth Daily Diflucan 150MG Oral Tablet 08/07/2022 09/12/2022 By Mouth x1 NOW 1 TABLET 465240 RxNorm 1 TABLET By Mouth x1 NOW FOR MARCH REPEAT IN 72 HOURS Radha 28 3MG-0.02MG Oral Tablet 09/12/2022 12/25/2022 By Mouth Once a day 1 TABLET RxNorm 1 TABLET By Mouth Once a day Medrol Dosepak 4MG Oral Tablet 12/25/2022 02/20/2023 By Mouth As Directed 1 PACK 878870 RxNorm 1 PACK By Mouth As Directed Methocarbamol 750MG Oral Tablet 12/25/2022 03/12/2023 By Mouth As needed every 8 hr 202796 RxNorm 1-2 TABLET By Mouth As needed every 8 hr [place]-28 30 MCG-0.15 MG; NA Oral Tablet 12/25/2022 03/12/2023 By Mouth Daily 1 TABLET 982316 RxNorm 1 TABLET By Mouth Daily Macrobid 100MG Oral Capsule 02/20/2023 03/12/2023 By mouth Twice a day 1 TABLET 414229 RxNorm 1 TABLET By mouth Twice a day X 7 DAYS Pyridium 100MG Oral Tablet 02/20/2023 03/12/2023 By mouth As needed every 8 hr 1 TABLET 2180519 RxNorm 1 TABLET By mouth As needed every 8 hr for urinary pain ZyrTEC Allergy 10MG Oral Capsule, Liquid Filled 03/12/2023 Unknown By Mouth Daily 1 CAPSULE 7634961 RxNorm 1 CAPSULE By Mouth Daily Fluticasone 0.05MG/1Actuati on Nasal [place] 03/12/2023 Unknown Nasal Daily 1 Sprays 1947147 RxNorm 1 Spr ays Nasal Daily Azithromycin 500MG Oral Tablet 06/04/2024 Unknown By Mouth x1 NOW 2 TABLET 847424 RxNorm 2 TABLET By Mouth x1 NOW [...] Status Code Code System SEASONAL ALLERGY active 316979881 SNO MED-CT FAMILY PLANNING 06/20/2020 active 071122917 SNO MED-CT BITE OF INSECT active 306485781 SNOME D-CT ES OF VAGINA 08/07/2022 active 45173434 S NOMED-CT MENORRHAGIA active 052566274 SNOMED-C T PAINFUL NECK active 15621506 SNOMED- CT ADHD OF CHILDHOOD 07/22/2019 resolved 448575716 S NOMED-CT SEASONAL NASAL ALLERGY 07/22/2019 resolved 808783 001 SNOMED-CT HISTORY OF CHICKENPOX 07/22/2019 resolved 1417786 08 SNOMED-CT Allergies and Adverse Reactions Allergy Substance Reaction Severity Start Date Concern Status Co de Code System Active seasonal allergies Active No Known Drug Allergies Active 685935704 SNOMED-CT No Known Drug Allergies Active 114063496 SNOMED-CT Plan of Treatment Description Due Date Details Instructions DEPRESSION SCREENING DUE 06/20/2021 Encounters Encounter Diagnosis Start Date Code Code Sys tem Well child visit 06/07/2022 264833765 SNOMED-CT Personal Care Team Section Performer Name Performer Role Active Date Inactive Da te Progress Notes [facility] 06/07/2022 15:22 All Demographics Patient Name Age Sex Visit Number Admission Date/Time Attending Physician Date of Service Room and Bed Emergency Contact NELA MANZANARES 2005 16 years Female [id number] 06/07/2022 14:22 Julián Simeon 06/07/2022 402 06/07/2022 14:25 Accompanied By: Parent Parent, mother X. Parent, father Guardian Relative access services representative Caregiver Family Protective services Friend Healthcare provider Law enforcement Tree Killer / EMS Spouse / SO Other: Preferred Language: Swedish. Vital Signs: This Visit Date/Time BP (mm/Hg) [...] environment active No Known Drug Allergies medication zzkzjwz-us-tmwct Nutrition X. Daily fruits and vegetables Iron [...] ALL CAPITALIZED = Focus area for this [facility] Visit Constitutional: None. EYES: None. Head, EARS, NOSE, AND THROAT: None. CARDIOVASCULAR: None. RESPIRATORY: None. GASTROINTESTINAL: None. GENITOURINARY: None. MUSCULOSKELETAL: None. SKIN: None. NEUROLOGICAL: None. Other: None. PHYSICAL EXAMINATION ALL CAPITALIZED and = Focus Area for this [facility] Visit GENERAL: x Well-appearing adolescent x Normal [...] Record reviewed Up-to-date for age Administered Today: [place] Screening Depression Screening (annually) Screening Tool Used: [...] year Next Visit: Referral to: 16 y/o [facility] - Anticipatory guidance and bright futures discussed. Discussed control methods and will start patient on [place]. Patient to notify office if she is having any side effects. Patient states she is having anxiety, offered multiple options for managing anxiety, patient declines at this time.
--- OUTSIDE RECORDS SUMMARY | 2025-01-20 06:01 | XMS_ITS ---
Author Organization Unknown Address [address], [place] [phone] Phone Care Team Providers Care Tire Changer Aircraft Name Role Phone JOSUE FULTON EDMOND Attending Unavailable Results CULTURE YEAST, WITH IDENTIFI CATION - Collect Date/Time: 02/20/2023 18:42 [facility] ID: [id number] [address], [place], [id number] LOINC: 5048-4 Test Value Unit Reference Range Code Code System Flag SOURCE: VAGINAL STATUS: FINAL ISOLATE 1: Margoth albicans A TRICHOMONAS VAGINALIS FEMALE RNA QUAL - Collect Date/Time: 02/20/2023 18:40 [facility] ID: [id number] [address], [place], [address] LOINC: 25085-8 Test Value Unit Reference Range Code Code System Flag TRICHOMONAS VAGINALISRNA, QL TMA NOT DETECTED NOT DETECTED GC/CHLAMYDIA PCR [facility] ct Date/Time: 02/20/2023 18:40 [facility] ID: [id number] [address], [place], [address] LOINC: 5048-4 Test Value Unit Reference Range Code Code System Flag GONORRHEA PCR NOT DETECTED NORMAL: NOT DETECTED CHLAMYDIA PCR NOT DETECTED NORMAL: NOT DETECTED BACTERIAL VAGINOSIS RAPID TE ST - Collect Date/Time: 02/20/2023 18:40 [facility] ID: [id number] [address], [place], [address] LOINC: 6410-5 Test Value Unit Reference Range Code Code System Flag BACTERIAL VAGINOSIS NEGATIVE NORMAL: NEGATIVE Social History Type Status Start Date End Date Code Code Syst em Smoking History Never smoker (Never Smoked) 871686146 SNOMED CT Sex Female Sexual Orientation Straight or Heterosexual 25054920 SNOMED CT Gender Identity Female [id number] [address] Medications Medication Start Date End Date Route Frequency Dose Code Code System Medication Instructions Home Meds Methocarbamol 750MG Oral Tablet 12/25/2022 03/12/2023 By Mouth As needed every 8 hr 896049 RxNorm 1-2 TABLET By Mouth As needed every 8 hr [place]-28 30 MCG-0.15 MG; NA Oral Tablet 12/25/2022 03/12/2023 By Mouth Daily 1 TABLET 289553 RxNorm 1 TABLET By Mouth Daily Macrobid 100MG Oral Capsule 02/20/2023 03/12/2023 By mouth Twice a day 1 TABLET 168064 RxNorm 1 TABLET By mouth Twice a day X 7 DAYS Pyridium 100MG Oral Tablet 02/20/2023 03/12/2023 By mouth As needed every 8 hr 1 TABLET 9857043 RxNorm 1 TABLET By mouth As needed every 8 hr for urinary pain ZyrTEC Allergy 10MG Oral Capsule, Liquid Filled 03/12/2023 Unknown By Mouth Daily 1 CAPSULE 2948194 RxNorm 1 CAPSULE By Mouth Daily Fluticasone 0.05MG/1Actuati on Nasal [place] 03/12/2023 Unknown Nasal Daily 1 Sprays 9712067 RxNorm 1 Spr ays Nasal Daily Azithromycin 500MG Oral Tablet 06/04/2024 Unknown By Mouth x1 NOW 2 TABLET 267577 RxNorm 2 TABLET By Mouth x1 NOW [...] Status Code Code System SEASONAL ALLERGY active 252751369 SNO MED-CT FAMILY PLANNING 06/20/2020 active 969550465 SNO MED-CT BITE OF INSECT active 284786739 SNOME D-CT MARGOTH OF VAGINA 08/07/2022 active 19056183 S NOMED-CT MENORRHAGIA active 372334088 SNOMED-C T PAINFUL NECK active 30088623 SNOMED- CT ADHD OF CHILDHOOD 07/22/2019 resolved 524383429 S NOMED-CT SEASONAL NASAL ALLERGY 07/22/2019 resolved 235013 001 SNOMED-CT HISTORY OF CHICKENPOX 07/22/2019 resolved 0102460 08 SNOMED-CT Allergies and Adverse Reactions Allergy Substance Reaction Severity Start Date Concern Status Co de Code System Active seasonal allergies Active No Known Drug Allergies Active 503940893 SNOMED-CT No Known Drug Allergies Active 056548965 SNOMED-CT Plan of Treatment Description Due Date Details Instructions DEPRESSION SCREENING DUE 06/20/2021 Encounters Encounter Diagnosis Start Date Code Code Sys tem Dysuria 02/20/2023 05092856 SNOMED-CT Personal Care Team Section Performer Name Performer Role Active Date Inactive Da xena
--- OUTSIDE RECORDS SUMMARY | 2025-01-20 06:01 | XMS_ITS ---
Author Organization Unknown Address [address], [place] [phone] Phone Care Team Providers Care Curb Attendant Name Role Phone Ana Joseph Attending Unavailable Results BACTERIAL VAGINOSIS RAPID TE ST - Collect Date/Time: 07/31/2022 17:20 [facility] ID: [id number] [address], [place], [address] LOINC: 6410-5 Test Value Unit Reference Range Code Code System Flag BACTERIAL VAGINOSIS NEGATIVE NORMAL: NEGATIVE CULTURE YEAST, WITH IDENTIFI CATION - Collect Date/Time: 07/31/2022 17:19 [facility] ID: [id number] [address], [place], [address] LOINC: 5048-4 Test Value Unit Reference Range Code Code System Flag SOURCE: VAGINAL STATUS: FINAL ISOLATE 1: Margoth albicans A CULTURE: Culture in progress TRICHOMONAS VAGINALIS FEMALE RNA QUAL - Collect Date/Time: 07/31/2022 17:19 [facility] ID: [id number] [address], [place], [address] LOINC: 87622-4 Test Value Unit Reference Range Code Code System Flag TRICHOMONAS VAGINALISRNA, QL TMA NOT DETECTED NOT DETECTED CHLAMYDIA/GC URINE RNA, TMA APTIMA - Collect Date/Time: 07/31/2022 17:19 [facility] ID: [id number] [address], [place], [address] LOINC: 5048-4 Test Value Unit Reference Range Code Code System Flag CHLAMYDIA TRACHOMATISRNA, TMA, UROGENITAL NOT DETECTED NOT DETECTED NEISSERIA GONORRHOEAERNA, TMA, UROGENITAL NOT DETECTED NOT DETECTED Social History Type Status Start Date End Date Code Code Syst em Smoking History Never smoker (Never Smoked) 699947263 SNOMED CT Sex Female Sexual Orientation Straight or Heterosexual 66651015 SNOMED CT Gender Identity Female 56434783007063 [address] Medications Medication Start Date End Date Route Frequency Dose Code Code System Medication Instructions Home Meds Anel-28 30MCG-0.15MG-NA Oral Tablet 06/07/2022 09/12/2022 By Mouth Daily 1 TABLET 837912 RxNorm 1 TABLET By Mouth Daily Diflucan [...] 02/20/2023 By Mouth As Directed 1 PACK 728334 RxNorm 1 PACK By Mouth As Directed Methocarbamol 750MG Oral Tablet 12/25/2022 03/12/2023 By Mouth As needed every 8 hr 386564 RxNorm 1-2 TABLET By Mouth As needed every 8 hr [place]-28 30 MCG-0.15 MG; NA Oral Tablet 12/25/2022 03/12/2023 By Mouth Daily 1 TABLET 727104 RxNorm 1 TABLET By Mouth Daily Macrobid 100MG Oral Capsule 02/20/2023 03/12/2023 By mouth Twice a day 1 TABLET 766307 RxNorm 1 TABLET By mouth Twice a day X 7 DAYS Pyridium 100MG Oral Tablet 02/20/2023 03/12/2023 By mouth As needed every 8 hr 1 TABLET 5014867 RxNorm 1 TABLET By mouth As needed every 8 hr for urinary pain ZyrTEC Allergy 10MG Oral Capsule, Liquid Filled 03/12/2023 Unknown By Mouth Daily 1 CAPSULE 2861489 RxNorm 1 CAPSULE By Mouth Daily Fluticasone 0.05MG/1Actuatio n Nasal [place] 03/12/2023 Unknown Nasal Daily 1 Sprays 4499834 RxNorm 1 Spra ys Nasal Daily Azithromycin 500MG Oral Tablet 06/04/2024 Unknown By Mouth x1 NOW 2 TABLET 351192 RxNorm 2 TABLET By Mouth x1 NOW [...] Status Code Code System SEASONAL ALLERGY active 640873543 SNO MED-CT FAMILY PLANNING 06/20/2020 active 611570978 SNO MED-CT BITE OF INSECT active 046958588 SNOME D-CT MARGOTH OF VAGINA 08/07/2022 active 90313971 S NOMED-CT MENORRHAGIA active 382775928 SNOMED-C T PAINFUL NECK active 28364602 SNOMED- CT ADHD OF CHILDHOOD 07/22/2019 resolved 055897860 S NOMED-CT SEASONAL NASAL ALLERGY 07/22/2019 resolved 923644 001 SNOMED-CT HISTORY OF CHICKENPOX 07/22/2019 resolved 4968334 08 SNOMED-CT Allergies and Adverse Reactions Allergy Substance Reaction Severity Start Date Concern Status Co de Code System Active seasonal allergies Active No Known Drug Allergies Active 360418525 SNOMED-CT No Known Drug Allergies Active 078040296 SNOMED-CT Plan of Treatment Description Due Date Details Instructions DEPRESSION SCREENING DUE 06/20/2021 Encounters Encounter Diagnosis Start Date Code Code Sys tem Noninflammatory disorder of the vagina 07/31/2022 22 934959 SNOMED-CT Personal Care Team Section Performer Name Performer Role Active Date Inactive Da te
--- OUTSIDE RECORDS SUMMARY | 2025-01-20 06:01 | XMS_ITS ---
Author Organization Unknown Address [address] [place] [phone] Phone Care Team Providers Care Mix House Tender Name Role Phone VIRAL Brody Attending Unavailable [...] MICR O - Collect Date/Time: 06/03/2024 15:21 [facility] ID: [id number] [address] [place] [address], [id number] LOINC: Test Value Unit Reference Range Code [...] em Smoking History Never smoker (Never Smoked) 503552960 SNOMED CT Sex Female Sexual Orientation Straight or Heterosexual 04228592 SNOMED CT Gender Identity Female 21794030073783 [address] Vital Signs Vital Sign Value Unit Orange Value Orange Unit Date/Time Recent/Initial? Code Code System Body Mass Index 25.85 kg/m2 06/03/2024 14:31 Initial 15625 -5 [facility] Body Mass Index Percentile 82 % 06/03/2024 14:31 Initial 91593 -9 LOINC Systolic Blood Pressure 118 mm[Hg] 06/03/2024 15:46 Most Recent 8480- 6 LOINC Diastolic Blood Pressure 82 mm[Hg] 06/03/2024 15:46 Most Recent 8462- 4 LOINC Systolic Blood Pressure 136 mm[Hg] 06/03/2024 14:31 Initial 8480- 6 LOINC Diastolic Blood Pressure 95 mm[Hg] 06/03/2024 14:31 Initial 8462- 4 LOINC Body Surface Area 1.92 m2 06/03/2024 14:31 Initial 3140- 1 LOINC Height 172.720 0 cm 68.00 in 06/03/2024 14:31 Initial 8302- 2 [facility] O2 Saturation 100 % 2023 14:31 Initial 50169 -5 [facility] Pulse 93.0 /min 06/03/2024 14:31 Initial 8867- 4 [facility] Temperature 36.7 Antonella 98.0 F 06/03/20 14:31 Initial 8310- 5 [facility] Weight 77.11 kg 170.00 lbs 06/03/2024 14:31 Initial 29599 -7 [facility] Medications Medication Start Date End Date Route Frequency Dose Code Code System Medication Instructions Home Meds ZyrTEC Allergy 10MG Oral Capsule, Liquid Filled 03/12/2023 Unknown By Mouth Daily 1 CAPSULE 0746144 RxNorm 1 CAPSULE By Mouth Daily Fluticasone 0.05MG/1Actuatio n Nasal [place] 03/12/2023 Unknown Nasal Daily 1 Sprays 3814779 RxNorm 1 Spra ys Nasal Daily Azithromycin 500MG Oral Tablet 06/04/2024 Unknown By Mouth x1 NOW 2 TABLET 775831 RxNorm 2 TABLET By Mouth x1 NOW [...] sex practices. 3. -Keep follow up with [place] [facility] for next week. -Given handouts for [...] up. This examination was transcribed using the HEXIO voice recognition system without a human knife setter. To expedite patient care, this report has not been adjusted for typographical, or medical, or syntax by a trained medical instructor. Hospital Discharge Instructions Should you have any questions prior to discharge, please contact a member of your healthcare team. If you have left the hospital and have any questions, please contact your primary care physician. Reason For Referral No Data Found Problems Problem Start Date Resolved Date Status Code Code System SEASONAL ALLERGY active 405469291 SNO MED-CT FAMILY PLANNING 06/20/2020 active 410113312 SNO MED-CT BITE OF INSECT active 456430893 SNOME D-CT ES OF VAGINA 08/07/2022 active 66540297 S NOMED-CT MENORRHAGIA active 272263243 SNOMED-C T PAINFUL NECK active 10313680 SNOMED- CT ADHD OF CHILDHOOD 07/22/2019 resolved 583650827 S NOMED-CT SEASONAL NASAL ALLERGY 07/22/2019 resolved 695897 001 SNOMED-CT HISTORY OF CHICKENPOX 07/22/2019 resolved 3228278 08 SNOMED-CT Allergies and Adverse Reactions Allergy Substance Reaction Severity Start Date Concern Status Co de Code System Active seasonal allergies Active No Known Drug Allergies Active 386773368 SNOMED-CT No Known Drug Allergies Active 470786692 SNOMED-CT Plan of Treatment Description Due Date Details Instructions DEPRESSION SCREENING DUE 06/20/2021 Future Order Description Future Order Date Futu re Order Loinc: TRICHOMONAS VAGINALIS FEMALE RNA QUAL LOINC: 88794-2 GC PCR [facility] 06/03/2024 LOINC: 02997-8 CHLAMYDIA PCR [facility] 06/03/2024 LOINC: 81447- 5 BACTERIAL VAGINOSIS RAPID TEST 06/03/2024 LOINC: 6410-5 CULTURE YEAST, WITH IDENTIFICATION 06/03/2024 LOINC: 10550-8 Encounters Encounter Diagnosis Start Date Code Code Sys tem Acute vaginitis 06/03/2024 97417603 SNOMED-CT Personal Care Team Section Performer Name Performer Role Active Date Inactive Da te Progress Notes [facility] 06/03/2024 15:50 Date of Service: 06/03/2024 Convenient [...] April. She has an appointment scheduled with [facility] for an OBGYN next week. She denies [...] sex practices. 3. -Keep follow up with [place] [facility] [facility] for next week. -Given handouts for [...] up. This examination was transcribed using the HEXIO voice recognition system without a human knife setter. To expedite patient care, this report has not been adjusted for typographical, or medical, or syntax by a trained medical instructor. Meds Given This Visit: Meds ordered and administered this visit: No Current Medications Available Discharge Med List: Discharge Medications Medication Special Instructions Start Date Prescribing MD Fluticasone 0.05MG/1Actuation Nasal [place] 1 Sprays Nasal Daily 03/12/2023 Blanco Gallego ZyrTEC Allergy 10MG Oral Capsule, Liquid Filled 1 CAPSULE By Mouth Daily 03/12/2023 Blanco Gallego
--- OUTSIDE RECORDS SUMMARY | 2025-01-20 06:01 | XMS_ITS | Patient Health Summary ---
Author Organization [facility] Address [address] [place] [address] Care Team Providers Care Unitizer Name Role Phone Faustino Matta MD Primary Care Provider Note from [facility],non-owned Affiliates and Associated Physician Practices is amultiple site organization consisting of ambulatory clinics and hospital sitesin [place], [place], [place] and [place]. This disclosure is being madepursuant to the Care Everywhere program and may not contain all information available regarding this patient. Last updated 18.[facility] Allergies No known active allergies Medications * [...] CYTOMEGALOVIRUS AB IGG AVIDITY (11/24/2024 2:44 PM SENIOR C DEVELOPER) [facility] Cytomegalovirus Antibody IgG Avidity Index 0.90 [facility] [...] analytical performance characteristics have been determined by [employer]. It has not been cleared or approved by FDA. This assay has been validated pursuant to the CLIA regulations and is used for clinical purposes. For additional information, please refer to http://education.PlusFourSix/faq/KLG562 (This link is being provided for informational/ educational purposes only.) Test Performed at: [employer] [address] [place] [address] KWAKU SUMMERS MD,PHD,STARR 11/24/2024 2:44 PM SENIOR C DEVELOPER 11/24/2024 2:45 PM SENIOR C DEVELOPER Jennifer Paul MD LAB - SEROLOGY LEIF GONZALEZ [facility] [[email or web address]] [address] [place] [address] * SONOGRAM - COMPLETE (11/19/2024 1:11 PM SENIOR C DEVELOPER) Only the most recent of4 resultswithin the [...] 3 lb 8 oz EFW by Hadlock ([id number]) appropriate Growth Overview Exam date [place] BPD [...] redraw of CMV Avidity Coding ====== Procedures 42503: US Preg Uterus Follow Up Janalakshmi PACS Anatomical Region Laterality Modality Other 11/19/2024 1:11 PM SENIOR C DEVELOPER Jonny Cabrera DO [facility] ORDERABLES * (ABNORMAL) CYTOMEGALOVIRUS ANTIBODY IGG BLOOD (11/10/2024 1:50 PM SENIOR C DEVELOPER) Cytomegalovirus Antibody IgG >10.00(H) U/mL [facility] Comment: U/mL Interpretation ----- <0.60 Negative 0.60-0.69 Equivocal > or = 0.70 Positive A positive result indicates that the patient has antibody to CMV. It does not differentiate between an active or past infection. Test Performed at: [employer] [facility] [address] [place] [address] PINEDA TAM MD 11/10/2024 1:50 PM SENIOR C DEVELOPER 11/10/2024 1:53 PM SENIOR C DEVELOPER Britany Garcia APRN-JEWELRY CONSULTANT LAB - CHEMI STRY ORDERABLES [facility] [address] [place] [address] Care Teams Unitizer Relationship Specialty Start Date End Date Faustino Matta MD [address] [facility] [address] [place] [address] PCP - General Pediatrics 08/05/12
--- OUTSIDE RECORDS SUMMARY | 2025-01-20 06:02 | XMS_ITS ---
Author Organization Unknown Address [address] [place] [address] [phone] Phone Care Team Providers Care Station Captain Name Role Phone TABATHA RODGERS Attending Unavailable [...] em Smoking History Never smoker (Never Smoked) 827746318 SNOMED CT Sex Female Sexual Orientation Straight or Heterosexual 87297846 SNOMED CT Gender Identity Female [id number] Medications Medication Start Date End Date Route Frequency Dose Code Code System Medication Instructions Home Meds predniSONE 50MG Oral Tablet 06/07/2022 07/31/2022 By Mouth Daily 1 TABLET 083791 RxNorm 1 TABLET By Mouth Daily [place]-28 30MCG-0.15MG-NA Oral Tablet 06/07/2022 09/12/2022 By Mouth Daily 1 TABLET 265756 RxNorm 1 TABLET By Mouth Daily Diflucan 150MG Oral Tablet 08/07/2022 09/12/2022 By Mouth x1 NOW 1 TABLET 500598 RxNorm 1 TABLET By Mouth x1 NOW FOR MARCH REPEAT IN 72 HOURS Radha 28 3MG-0.02MG Oral Tablet 09/12/2022 12/25/2022 By Mouth Once a day 1 TABLET RxNorm 1 TABLET By Mouth Once a day Medrol Dosepak 4MG Oral Tablet 12/25/2022 02/20/2023 By Mouth As Directed 1 PACK 103106 RxNorm 1 PACK By Mouth As Directed Methocarbamol 750MG Oral Tablet 12/25/2022 03/12/2023 By Mouth As needed every 8 hr 755934 RxNorm 1-2 TABLET By Mouth As needed every 8 hr [place]-28 30 MCG-0.15 MG; NA Oral Tablet 12/25/2022 03/12/2023 By Mouth Daily 1 TABLET 264291 RxNorm 1 TABLET By Mouth Daily Macrobid 100MG Oral Capsule 02/20/2023 03/12/2023 By mouth Twice a day 1 TABLET 739387 RxNorm 1 TABLET By mouth Twice a day X 7 DAYS Pyridium 100MG Oral Tablet 02/20/2023 03/12/2023 By mouth As needed every 8 hr 1 TABLET 9025275 RxNorm 1 TABLET By mouth As needed every 8 hr for urinary pain ZyrTEC Allergy 10MG Oral Capsule, Liquid Filled 03/12/2023 Unknown By Mouth Daily 1 CAPSULE 6496944 RxNorm 1 CAPSULE By Mouth Daily Fluticasone 0.05MG/1Actuati on Nasal [place] 03/12/2023 Unknown Nasal Daily 1 Sprays 6764595 RxNorm 1 Spr ays Nasal Daily Azithromycin 500MG Oral Tablet 06/04/2024 Unknown By Mouth x1 NOW 2 TABLET 074071 RxNorm 2 TABLET By Mouth x1 NOW [...] Status Code Code System SEASONAL ALLERGY active 801355960 SNO MED-CT FAMILY PLANNING 06/20/2020 active 216790344 SNO MED-CT BITE OF INSECT active 601236841 SNOME D-CT ES OF VAGINA 08/07/2022 active 29731273 S NOMED-CT MENORRHAGIA active 134754754 SNOMED-C T PAINFUL NECK active 09157229 SNOMED- CT ADHD OF CHILDHOOD 07/22/2019 resolved 379155352 S NOMED-CT SEASONAL NASAL ALLERGY 07/22/2019 resolved 328752 001 SNOMED-CT HISTORY OF CHICKENPOX 07/22/2019 resolved 4590260 08 SNOMED-CT Allergies and Adverse Reactions Allergy Substance Reaction Severity Start Date Concern Status Co de Code System Active seasonal allergies Active No Known Drug Allergies Active 028379493 SNOMED-CT No Known Drug Allergies Active 424505256 SNOMED-CT Plan of Treatment Description Due Date Details Instructions DEPRESSION SCREENING DUE 06/20/2021 Personal Care Team Section Performer Name Performer Role Active Date Inactive David mccallum
--- OUTSIDE RECORDS SUMMARY | 2025-01-20 06:02 | XMS_ITS ---
Author Organization Unknown Address [address] [place] [address] [phone] Phone Care Team Providers Care Backend Tester Name Role Phone ATIYA Lezama MD Attending [...] em Smoking History Never smoker (Never Smoked) 123338550 SNOMED CT Sex Female Sexual Orientation Straight or Heterosexual 71348428 SNOMED CT Gender Identity Female [id number] Medications Medication Start Date End Date Route Frequency Dose Code Code System Medication Instructions Home Meds ZyrTEC Allergy 10MG Oral Capsule, Liquid Filled 03/12/2023 Unknown By Mouth Daily 1 CAPSULE 1117561 RxNorm 1 CAPSULE By Mouth Daily Fluticasone 0.05MG/1Actuatio n Nasal [place] 03/12/2023 Unknown Nasal Daily 1 Sprays 9123820 RxNorm 1 Spra ys Nasal Daily Azithromycin 500MG Oral Tablet 06/04/2024 Unknown By Mouth x1 NOW 2 TABLET 654884 RxNorm 2 TABLET By Mouth x1 NOW [...] Status Code Code System SEASONAL ALLERGY active 605756184 SNO MED-CT FAMILY PLANNING 06/20/2020 active 951546044 SNO MED-CT BITE OF INSECT active 855292130 SNOME D-CT ES OF VAGINA 08/07/2022 active 75952863 S NOMED-CT MENORRHAGIA active 393362862 SNOMED-C T PAINFUL NECK active 88014617 SNOMED- CT ADHD OF CHILDHOOD 07/22/2019 resolved 046162240 S NOMED-CT SEASONAL NASAL ALLERGY 07/22/2019 resolved 206144 001 SNOMED-CT HISTORY OF CHICKENPOX 07/22/2019 resolved 0242605 08 SNOMED-CT Allergies and Adverse Reactions Allergy Substance Reaction Severity Start Date Concern Status Co de Code System Active seasonal allergies Active No Known Drug Allergies Active 088198811 SNOMED-CT No Known Drug Allergies Active 754258500 SNOMED-CT Plan of Treatment Description Due Date Details Instructions DEPRESSION SCREENING DUE 06/20/2021 Personal Care Team Section Performer Name Performer Role Active Date Inactive Da xena
--- OUTSIDE RECORDS SUMMARY | 2025-01-20 06:02 | XMS_ITS ---
Author Organization Unknown Address [address] [place] [address] [phone] Phone Care Team Providers Care Scullion Chief Name Role Phone TABATHA RODGERS Attending Unavailable [...] MICR O - Collect Date/Time: 07/31/2022 17:14 [facility] ID: [id number] [address] [place] [address], [phone] LOINC: Test Value Unit Reference Range Code [...] TEST - Colle ct Date/Time: 07/31/2022 17:12 [facility] ID: [id number] [address] [place] [address], [phone] LOINC: Test Value Unit Reference Range Code Code System Flag TEST PERFORMED URINE PREG (URINE) NEGATIVE LOT#: [id number] EXP DATE: 2023-10-10 QC: ACCEPTABLE Social History Type Status Start Date End Date Code Code Syst em Smoking History Never smoker (Never Smoked) 666964336 SNOMED CT Sex Female Sexual Orientation Straight or Heterosexual 66135072 SNOMED CT Gender Identity Female [id number] [address] Vital Signs Vital Sign Value Unit [place] Value [place] Date/Time Recent/Initial? Code Code System Body Mass Index 23.34 kg/m2 07/31/2022 16:59 Initial 75588 -5 LOINC Body Mass Index Percentile 71 % 07/31/2022 16:59 Initial 23633 -9 LOINC Systolic Blood Pressure 120 mm[Hg] 07/31/2022 16:59 Initial 8480- 6 LOINC Diastolic Blood Pressure 80 mm[Hg] 07/31/2022 16:59 Initial 8462- 4 [facility] Body Surface Area 1.79 m2 07/31/2022 16:59 Initial 3140- 1 [facility] Height 170.180 0 cm 67.00 in 07/31/2022 16:59 Initial 8302- 2 [facility] O2 Saturation 98 % 2021 16:59 Initial 54884 -5 [facility] Pulse 92.0 /min 07/31/2022 16:59 Initial 8867- 4 [facility] Temperature 36.8 Antonella 98.2 F 07/31/20 16:59 Initial 8310- 5 [facility] Weight 67.59 kg 149.00 lbs 07/31/2022 16:59 Initial 83958 -7 [facility] Medications Medication Start Date End Date Route Frequency Dose Code Code System Medication Instructions Home Meds predniSONE 50MG Oral Tablet 06/07/2022 07/31/2022 By Mouth Daily 1 TABLET 109034 RxNorm 1 TABLET By Mouth Daily [place]-28 30MCG-0.15MG-NA Oral Tablet 06/07/2022 09/12/2022 By Mouth Daily 1 TABLET 265955 RxNorm 1 TABLET By Mouth Daily Diflucan [...] 02/20/2023 By Mouth As Directed 1 PACK 177973 RxNorm 1 PACK By Mouth As Directed Methocarbamol 750MG Oral Tablet 12/25/2022 03/12/2023 By Mouth As needed every 8 hr 544321 RxNorm 1-2 TABLET By Mouth As needed every 8 hr [place]-28 30 MCG-0.15 MG; NA Oral Tablet 12/25/2022 03/12/2023 By Mouth Daily 1 TABLET 202212 RxNorm 1 TABLET By Mouth Daily Macrobid 100MG Oral Capsule 02/20/2023 03/12/2023 By mouth Twice a day 1 TABLET 142574 RxNorm 1 TABLET By mouth Twice a day X 7 DAYS Pyridium 100MG Oral Tablet 02/20/2023 03/12/2023 By mouth As needed every 8 hr 1 TABLET 3386636 RxNorm 1 TABLET By mouth As needed every 8 hr for urinary pain ZyrTEC Allergy 10MG Oral Capsule, Liquid Filled 03/12/2023 Unknown By Mouth Daily 1 CAPSULE 0083071 RxNorm 1 CAPSULE By Mouth Daily Fluticasone 0.05MG/1Actuati on Nasal [place] 03/12/2023 Unknown Nasal Daily 1 Sprays 3192666 RxNorm 1 Spr ays Nasal Daily Azithromycin 500MG Oral Tablet 06/04/2024 Unknown By Mouth x1 NOW 2 TABLET 168398 RxNorm 2 TABLET By Mouth x1 NOW [...] Status Code Code System SEASONAL ALLERGY active 361787633 SNO MED-CT FAMILY PLANNING 06/20/2020 active 892334035 SNO MED-CT BITE OF INSECT active 310732899 SNOME D-CT ES OF VAGINA 08/07/2022 active 91661161 S NOMED-CT MENORRHAGIA active 785095183 SNOMED-C T PAINFUL NECK active 34731439 SNOMED- CT ADHD OF CHILDHOOD 07/22/2019 resolved 214197274 S NOMED-CT SEASONAL NASAL ALLERGY 07/22/2019 resolved 948248 001 SNOMED-CT HISTORY OF CHICKENPOX 07/22/2019 resolved 2873299 08 SNOMED-CT Allergies and Adverse Reactions Allergy Substance Reaction Severity Start Date Concern Status Co de Code System Active seasonal allergies Active No Known Drug Allergies Active 502278454 SNOMED-CT No Known Drug Allergies Active 477645383 SNOMED-CT Plan of Treatment Description Due Date Details Instructions DEPRESSION SCREENING DUE 06/20/2021 Future Order Description Future Order Date Futu re Order Loinc: BACTERIAL VAGINOSIS RAPID TEST 07/31/2022 LOINC: 6410-5 CULTURE YEAST, WITH IDENTIFICATION 07/31/2022 LOINC: 43893-4 TRICHOMONAS VAGINALIS FEMALE RNA QUAL 2 LOINC: 55942-3 CHLAMYDIA/GC URINE RNA, TMA APTIMA 07/31/2022 LOINC: 5048-4 CULTURE URINE 07/31/2022 LOINC: 630-4 Encounters Encounter Diagnosis Start Date Code Code Sys tem Acute vaginitis 07/31/2022 27169980 SNOMED-CT Personal Care Team Section Performer Name Performer Role Active Date Inactive Da te Progress Notes [facility] 07/31/2022 18:10 Admission Date/Time: 07/31/2022 [...] NEGATIVE 07/31/2022 17:10 07/31/2022 17:12 final LOT#: [id number] 07/31/2022 17:10 07/31/2022 17:12 final EXP DATE: [...] Medication Special Instructions Start Date Prescribing MD Tam-28 30MCG-0.15MG-NA Oral Tablet 1 TABLET By Mouth Daily 06/07/2022 Blanco Gallego
--- OUTSIDE RECORDS SUMMARY | 2025-01-20 06:02 | XMS_ITS ---
Author Organization Unknown Address [address] [place] [address] [phone] Phone Care Team Providers Care Produce Associate Name Role Phone ATIYA Lezama MD Attending [...] em Smoking History Never smoker (Never Smoked) 444418909 SNOMED CT Sex Female Sexual Orientation Straight or Heterosexual 25217309 SNOMED CT Gender Identity Female [id number] Medications Medication Start Date End Date Route Frequency Dose Code Code System Medication Instructions Home Meds Radha 28 3MG-0.02MG Oral Tablet 09/12/2022 12/25/2022 By Mouth Once a day 1 TABLET RxNorm 1 TABLET By Mouth Once a day Medrol Dosepak 4MG Oral Tablet 12/25/2022 02/20/2023 By Mouth As Directed 1 PACK 093668 RxNorm 1 PACK By Mouth As Directed Methocarbamol 750MG Oral Tablet 12/25/2022 03/12/2023 By Mouth As needed every 8 hr 777299 RxNorm 1-2 TABLET By Mouth As needed every 8 hr [place]-28 30 MCG-0.15 MG; NA Oral Tablet 12/25/2022 03/12/2023 By Mouth Daily 1 TABLET 492699 RxNorm 1 TABLET By Mouth Daily Macrobid 100MG Oral Capsule 02/20/2023 03/12/2023 By mouth Twice a day 1 TABLET 142187 RxNorm 1 TABLET By mouth Twice a day X 7 DAYS Pyridium 100MG Oral Tablet 02/20/2023 03/12/2023 By mouth As needed every 8 hr 1 TABLET 1808792 RxNorm 1 TABLET By mouth As needed every 8 hr for urinary pain ZyrTEC Allergy 10MG Oral Capsule, Liquid Filled 03/12/2023 Unknown By Mouth Daily 1 CAPSULE 0455099 RxNorm 1 CAPSULE By Mouth Daily Fluticasone 0.05MG/1Actuati on Nasal [place] 03/12/2023 Unknown Nasal Daily 1 Sprays 3234892 RxNorm 1 Spr ays Nasal Daily Azithromycin 500MG Oral Tablet 06/04/2024 Unknown By Mouth x1 NOW 2 TABLET 995245 RxNorm 2 TABLET By Mouth x1 NOW [...] Status Code Code System SEASONAL ALLERGY active 805254462 SNO MED-CT FAMILY PLANNING 06/20/2020 active 646025715 SNO MED-CT BITE OF INSECT active 809520241 SNOME D-CT ES OF VAGINA 08/07/2022 active 84769259 S NOMED-CT MENORRHAGIA active 080670686 SNOMED-C T PAINFUL NECK active 02010058 SNOMED- CT ADHD OF CHILDHOOD 07/22/2019 resolved 005702562 S NOMED-CT SEASONAL NASAL ALLERGY 07/22/2019 resolved 227040 001 SNOMED-CT HISTORY OF CHICKENPOX 07/22/2019 resolved 5236766 08 SNOMED-CT Allergies and Adverse Reactions Allergy Substance Reaction Severity Start Date Concern Status Co de Code System Active seasonal allergies Active No Known Drug Allergies Active 060906616 SNOMED-CT No Known Drug Allergies Active 768413812 SNOMED-CT Plan of Treatment Description Due Date Details Instructions DEPRESSION SCREENING DUE 06/20/2021 Personal Care Team Section Performer Name Performer Role Active Date Inactive David mccallum
--- OUTSIDE RECORDS SUMMARY | 2025-01-20 06:02 | XMS_ITS ---
Author Organization Unknown Address [address] [place] [address] [phone] Phone Care Team Providers Care Metal Cut Off Saw Tender Name Role Phone Blanco Gallego Attending Unavailable [...] em Smoking History Never smoker (Never Smoked) 166096285 SNOMED CT Sex Female Sexual Orientation Straight or Heterosexual 25877560 SNOMED CT Gender Identity Female [id number] [address] Medications Medication Start Date End Date Route Frequency Dose Code Code System Medication Instructions Home Meds ZyrTEC Allergy 10MG Oral Capsule, Liquid Filled 03/12/2023 Unknown By Mouth Daily 1 CAPSULE 2985675 RxNorm 1 CAPSULE By Mouth Daily Fluticasone 0.05MG/1Actuatio n Nasal [place] 03/12/2023 Unknown Nasal Daily 1 Sprays 4865352 RxNorm 1 Spra ys Nasal Daily Azithromycin 500MG Oral Tablet 06/04/2024 Unknown By Mouth x1 NOW 2 TABLET 360030 RxNorm 2 TABLET By Mouth x1 NOW [...] Status Code Code System SEASONAL ALLERGY active 128963285 SNO MED-CT FAMILY PLANNING 06/20/2020 active 441486927 SNO MED-CT BITE OF INSECT active 251698497 SNOME D-CT ES OF VAGINA 08/07/2022 active 86547132 S NOMED-CT MENORRHAGIA active 088220066 SNOMED-C T PAINFUL NECK active 37074333 SNOMED- CT ADHD OF CHILDHOOD 07/22/2019 resolved 361792992 S NOMED-CT SEASONAL NASAL ALLERGY 07/22/2019 resolved 347028 001 SNOMED-CT HISTORY OF CHICKENPOX 07/22/2019 resolved 4011917 08 SNOMED-CT Allergies and Adverse Reactions Allergy Substance Reaction Severity Start Date Concern Status Co de Code System Active seasonal allergies Active No Known Drug Allergies Active 754040187 SNOMED-CT No Known Drug Allergies Active 292208982 SNOMED-CT Plan of Treatment Description Due Date Details Instructions DEPRESSION SCREENING DUE 06/20/2021 Personal Care Team Section Performer Name Performer Role Active Date Inactive Da xena
--- OUTSIDE RECORDS SUMMARY | 2025-01-20 06:03 | XMS_ITS ---
Author Organization Unknown Address [address] [place] [address] [phone] Phone Care Team Providers Care Brand Ambassadors Promotional Sales Name Role Phone Blanco Gallego Attending Unavailable [...] em Smoking History Never smoker (Never Smoked) 370114845 SNOMED CT Sex Female Sexual Orientation Straight or Heterosexual 52231931 SNOMED CT Gender Identity Female [id number] [address] Vital Signs Vital Sign Value Unit [place] Value [place] Unit Date/Time Recent/Initial? Code Code System Body Mass Index 23.87 kg/m2 12/25/2022 13:33 Initial 04212 -5 [facility] Body Mass Index Percentile 74 % 12/25/2022 13:33 Initial 77252 -9 [facility] Systolic Blood Pressure 106 mm[Hg] 12/25/2022 13:33 Initial 8480- 6 [facility] Diastolic Blood Pressure 72 mm[Hg] 12/25/2022 13:33 Initial 8462- 4 [facility] Body Surface Area 1.85 m2 12/25/2022 13:33 Initial 3140- 1 [facility] Height 172.720 0 cm 68.00 in 12/25/2022 13:33 Initial 8302- 2 [facility] O2 Saturation 100 % 2022 13:33 Initial 80723 -5 [facility] Pulse 82.0 /min 12/25/2022 13:33 Initial 8867- 4 [facility] Respiration 16 /min 12/25/19 13:33 Initial 9279- 1 [facility] Temperature 37.0 Antonella 98.6 F 12/25/19 13:33 Initial 8310- 5 [facility] Weight 71.21 kg 157.00 lbs 12/25/2022 13:33 Initial 57265 -7 [facility] Medications Medication Start Date End Date Route Frequency Dose Code Code System Medication Instructions Home Meds Radha 28 3MG-0.02MG Oral Tablet 09/12/2022 12/25/2022 By Mouth Once a day 1 TABLET RxNorm 1 TABLET By Mouth Once a day Medrol Dosepak 4MG Oral Tablet 12/25/2022 02/20/2023 By Mouth As Directed 1 PACK 435482 RxNorm 1 PACK By Mouth As Directed Methocarbamol 750MG Oral Tablet 12/25/2022 03/12/2023 By Mouth As needed every 8 hr 605279 RxNorm 1-2 TABLET By Mouth As needed every 8 hr [place]-28 30 MCG-0.15 MG; NA Oral Tablet 12/25/2022 03/12/2023 By Mouth Daily 1 TABLET 149845 RxNorm 1 TABLET By Mouth Daily Macrobid 100MG Oral Capsule 02/20/2023 03/12/2023 By mouth Twice a day 1 TABLET 810314 RxNorm 1 TABLET By mouth Twice a day X 7 DAYS Pyridium 100MG Oral Tablet 02/20/2023 03/12/2023 By mouth As needed every 8 hr 1 TABLET 5449809 RxNorm 1 TABLET By mouth As needed every 8 hr for urinary pain ZyrTEC Allergy 10MG Oral Capsule, Liquid Filled 03/12/2023 Unknown By Mouth Daily 1 CAPSULE 5875204 RxNorm 1 CAPSULE By Mouth Daily Fluticasone 0.05MG/1Actuati on Nasal [place] 03/12/2023 Unknown Nasal Daily 1 Sprays 2899194 RxNorm 1 Spr ays Nasal Daily Azithromycin 500MG Oral Tablet 06/04/2024 Unknown By Mouth x1 NOW 2 TABLET 069863 RxNorm 2 TABLET By Mouth x1 NOW Assessment You had the following problems:SEASONAL ALLERGYFAMILY PLANNINGBITE OF INSECTCANDIDA OF VAGINAMENORRHAGIAPAINFUL NECK Assessment/Plan: 1. Left upper back pain - Start steroids and muscle relaxer. Patient denies need for school note. 2. Contraceptive management - Patient requesting to restart [place], will restart at this time Return to clinic [facility] Discharge Instructions Should you have any questions prior to discharge, please contact a member of your healthcare team. If you have left the hospital and have any questions, please contact your primary care physician. Reason For Referral No Data Found Problems Problem Start Date Resolved Date Status Code Code System SEASONAL ALLERGY active 550094731 SNO MED-CT FAMILY PLANNING 06/20/2020 active 593153045 SNO MED-CT BITE OF INSECT active 310605629 SNOME D-CT ES OF VAGINA 08/07/2022 active 52540425 S NOMED-CT MENORRHAGIA active 885178891 SNOMED-C T PAINFUL NECK active 58979495 SNOMED- CT ADHD OF CHILDHOOD 07/22/2019 resolved 456588488 S NOMED-CT SEASONAL NASAL ALLERGY 07/22/2019 resolved 369718 001 SNOMED-CT HISTORY OF CHICKENPOX 07/22/2019 resolved 5753940 08 SNOMED-CT Allergies and Adverse Reactions Allergy Substance Reaction Severity Start Date Concern Status Co de Code System Active seasonal allergies Active No Known Drug Allergies Active 850772788 SNOMED-CT No Known Drug Allergies Active 888310884 SNOMED-CT Plan of Treatment Description Due Date Details Instructions DEPRESSION SCREENING DUE 06/20/2021 Encounters Encounter Diagnosis Start Date Code Code Sys tem Pain in thoracic spine 12/25/2022 484067102 SNOME D-CT Personal Care Team Section Performer Name Performer Role Active Date Inactive Da te Progress Notes [facility] 12/25/2022 13:54 Admission Date/Time: 12/25/2022 13:07 [facility] Visit Note Chief Complaint: [facility] F/U UPPER BACK PAIN/BY NECK SWOLLEN [...] is an 17 yo female presents to [facility] today for [facility] follow up neck and back pain. Pt states she went to [facility] on 12-18-22 with neck and upper back pain. States it just started hurting her while at work, denies injury to the areas. States no xrays were done at ER and was given Rx for steroids that she did not fiber picker. States she has been taking warm [...] Contraceptive management - Patient requesting to restart [place], will restart at this time Return to [...] records Referring and communicating with other health career specialist x Obtaining and/or reviewing separately obtained history Independent interpretation of results and communicating results to the patient/family/caregiver x Performing a medically appropriate examination/evaluation Care coordination (not reported separately) Ordered & Completed Meds Table: No Current Medications Available Discharge Med List: Discharge Medications: No Discharge Medications Available
--- OUTSIDE RECORDS SUMMARY | 2025-01-20 06:03 | XMS_ITS | Data Portability ---
Author Organization [facility] [place] Address [address] [place] [place] [address] Assessment No assessment recorded. Plan of Treatment Reminders Order Date Submit Date Provider Last Modified By Organization Details Last Modified Time Details Appointments U/S OB BPP 2024 09:30A M ULTRASOUND [...] available Not available OB ROUTINE 2024 10:45A M TRINI RODRIGUEZ MD Not available Not available Not available Lab None recorde d. Referral None recorde d. Procedures None recorde d. Surgeries None recorde d. Imaging non-str ess test 2024 025 [email or web address] [place], [address], [place], [address], 01/19/2025 02:43:02 US, obstetr ic, biophys ical profile + non-str ess test 2024 [email or web address], [address], [place], [address], 01/18/2025 18:08:11 US, obstetr ic, follow- up 2024 [email or web address], [address], [place], [address], 01/11/2025 22:39:45 US, obstetr ic, biophys ical profile + non-str ess test 2024 025 [email or web address] [place], [address], [place], [address], 01/11/2025 22:39:45 non-str ess test 2024 025 [email or web address] [address], [address], [place], [address], 01/12/2025 06:37:12 Medication Orders None recorde d. Patient TargetsNo [...] t Abnor mal: No Resul ting Lab: [facility] [address] [facility] [address] Tel: CULTU RE ----- ----- ----- --- No growt h in 1 day (dete ction level of 10,00 0 colon ies / ml.) Not Available [facility] (Lab) [address], [place], [address], 01/03/2025 23:55:30 01/12/20 25 01/11/2025 CULTU RE: GROUP B STREP SCREE N, REFLE X SUSCE PTIBI LITY result report SEE RESULT S BELOW abnormal Test: Cultu re: Group B Strep , Refle x Susce ptibi lity ([facility]/ [facility] ) Speci men Sourc e: Vagin a/Rec rebekah Speci men Type: Vagin al/Re ctal Speci men Date: 025 1150 Resul t Date: 025 1514 Resul t Statu s: Final resul t Abnor mal: Yes Resul basia Lab: [facility] [address] [facility] [address] Tel: CULTU RE ----- ----- ----- --- Posit arabella for Strep tococ cus agala ctiae (Grou p B) (Abno rmal) Clind amyci n = resis tant, eryth romyc in = resis tant. Cefaz isai may be used for intra partu m proph ylaxi s in penic illin -bryan rgic women at low risk, and Vanco mycin is recom shahida d for women at high risk for anaph ylaxi s. Renettace ptibi lity testi ng is not neces hugo for these drugs . Not Available [facility] (Lab) [address], [place], [address], 01/15/2025 16:18:09 12/15/19 25 12/15/2024 US, obste tric, follo w-up No observ ation record ed. [email or web address] [place] [address], [place], [address], 12/15/2024 13:52:35 12/15/19 25 12/15/2024 US, obste tric, follo w-up No observ ation record ed. [email or web address] [address], [place], [address], 12/15/2024 22:51:06 12/30/19 25 12/30/2024 non-s tress test No observ ation record ed. [place] [address], [place], [address], 01/01/2025 13:38:09 03/03/20 25 01/11/2025 non-s tress test No observ ation record ed. [email or web address] [place] [address], [place], [address], 01/11/2025 11:07:08 01/12/20 25 01/11/2025 US, obste tric, follo w-up No observ ation record ed. [email or web address] [place] [address], [place], [address], 01/11/2025 17:20:12 01/12/20 25 01/11/2025 US, obste tric, bioph ysica l profi le + non-s tress test No observ ation record ed. [email or web address] [place] [address], [place], [address], 01/11/2025 17:20:21 01/12/20 25 01/11/2025 US, obste tric, follo w-up No observ ation record ed. [email or web address] [address], [place], [address], 01/11/2025 22:14:29 01/19/20 25 01/18/2025 US, obste tric, bioph ysica l profi le + non-s tress test No observ ation record ed. [email or web address] [place] [address], [place], [address], 01/18/2025 18:13:15 01/19/20 25 01/18/2025 US, obste tric, bioph ysica l profi le + non-s tress test No observ ation record ed. [email or web address] [address], [place], [address], 01/18/2025 14:29:09 01/19/20 25 01/18/2025 non-s tress test No observ ation record ed. [email or web address] [place] [address], [place], [address], 01/18/2025 14:40:38 Result Notes None recorded. Problems Name Problem SNOMED Code Status Onset Date Resolution Date Notes Provider Name and Address Organization Details Recorded Time 39044204 Active 2024 Zelda Wang dave, [facility] 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 22:12:52 Large for gestation age fetus 362778358 Active 94% at 11/2024 [facility] TRINI RODRIGUEZ MD [address], [place], [address], [facility] 22:40:35 Cytomegal ovirus antibody screening Active Positive per [facility] MFM; echogenic bowel on 3T US, resolved on later scan; twice weekly testing per [facility] TRINI RODRIGUEZ MD [address], [place], [address], [facility] 5 22:12:30 Gestation al diabetes mellitus 31983645 Active TRINI RODRIGUEZ MD [address], [place], [address], [facility] 5 22:40:11 Gestation al diabetes mellitus 70950128 Active TRINI RODRIGUEZ MD [address], [place], [address], [facility] 5 22:40:11 Cytomegal ovirus antibody screening Active Positive per [facility]; echogenic bowel on 3T US, resolved on later scan; twice weekly testing per M TRINI RODRIGUEZ MD [address], [place], [address], [facility] 22:40:17 Klinefelt er's syndrome, XXY 106440430 Active High risk on NIPT; declined amniocent esis; genetic testing at delivery TRINI RODRIGUEZ MD [address], [place], [address], [facility] 22:40:36 Large for gestation age fetus 948200571 Active 94% at 11/2024 [facility] TRINI RODRIGUEZ MD [address], [place], [address], [facility] 22:40:38 Problem Notes None recorded. Procedures Surgical History Date Name Laterality Status Provider Name and Address Organization Details Recorded Time Appendectomy completed Zelda Wang [facility] 12/15/2024 13:12:49 Appendectomy completed Julieta Goddard [facility] 12/30/2024 17:09:16 Imaging Results Imaging Date Name Status LastModified by Organiz ation Details LastModified Time 12/15/2024 US, obstetric, follow-up completed [email or web address] [place] [address], [place], [address], 12/15/2024 13:52:35 12/15/2024 US, obstetric, follow-up completed [email or web address] [address], [place], [address], 12/15/2024 22:51:06 12/30/2024 non-stress test completed [address], [place], [address], 01/01/2025 13:38:09 01/11/2025 non-stress test completed [email or web address] [place] [address], [place], [address], 01/11/2025 11:07:08 01/11/2025 US, obstetric, follow-up completed [email or web address] [place] [address], [place], [address], 01/11/2025 17:20:12 01/11/2025 US, obstetric, biophysical profile + non-stress test completed [email or web address] [place] [address], [place], [address], 01/11/2025 17:20:21 01/11/2025 US, obstetric, follow-up completed [email or web address] [address], [place], [address], 01/11/2025 22:14:29 01/18/2025 US, obstetric, biophysical profile + non-stress test completed [email or web address] [place] [address], [place], [address], 01/18/2025 18:13:15 01/18/2025 US, obstetric, biophysical profile + non-stress test completed [email or web address] [address], [place], [address], 01/18/2025 14:29:09 01/18/2025 non-stress test completed [email or web address] [place] [address], [place], [address], 01/18/2025 14:40:38 Procedure Notes None recorded. Medical Equipment None [...] 5 172.72 cm 28.3 kg/m2 89 % 05104.1 8 g 125 mm[Hg] 83 mm[Hg] Julieta Goddard [facility] 5 11:57:34 Date Recorded Body height Body mass index (BMI) Body mass index (BMI) Percentile per age and sex Body weight Systolic blood pressure Diastolic blood pressure Provider Name and Address Organization Details Last Updated DateTime 5 172.72 cm 28.3 kg/m2 89 % 78176.1 8 g 116 mm[Hg] 77 mm[Hg] DONI Larsen [facility] 5 14:30:57 Social History Question Answer Notes LastModified by [...] Or The Highest Degree You Have Received? 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 [id number] Information not available 12/15/2024 Do You Use Any Illicit Or Recreational Drugs? No Information not available 12/15/2024 Do You Use Sunscreen Routinely? Yes Information not available 12/30/2024 Have You Used [...] Y Age of first menstrual cycle 10 Date of Last Pap Smear Sexual Problems? N Desired Control Method None LMP Approximate N Obstetrics History GPAL:G 1 P 0 0 0 0 Past Encounters Encounter ID Performer Location Encounter Start Date Encounter Closed Date Diagnosis/Indication Diagnosis SNOMED-CT Code Diagnosis ICD10 Code Diagnosis Note [id number] Carmen He [place] [address],[place] [address] 12/15/2024 11:23:34 12/15/2024 12:36:18 Gestational diabetes mellitus 03213370 O24.410 Z3A.32 [id number] Tod Briggs MD [place] [address],[place] [address] 12/15/2024 11:26:10 12/15/2024 13:53:08 Routine care 356222307 Z34.03 [id number] TRINI RODRIGUEZ MD [place] [address],[place] [address] 12/30/2024 17:03:09 12/31/2024 10:05:53 Gestational diabetes mellitus 27253952 O24.410 Z3A.32 - A1- good glycemic control History of cytomegalovirus infection 7357161807 66520883 Z86.19 - positive antibodies - records requested from [facility]- twice weekly testing per [facility] Klinefelte r's syndrome, XXY 496316596 Q98.0 - high risk on NIPT- declined amniocente sis- plan for cord blood at deliveryfo r confirmato ry testing Large for gestation age fetus 649587085 O36.63X0 - 94% at 11/2024 [facility] scan Gestation period, 34 weeks 90968854 Z3A.34 - all outside scans and labs reviewed today- continue PNV RhD negative 199077714 Z - B neg blood type- patient reports she has not received Rhogam injection yet- labs sent today for Rhogam eval [id number] Julieta Goddard [place] [address],[facility] [place] [address] 01/11/2025 10:19:23 01/11/2025 11:08:16 Gestational diabetes mellitus 86495819 O24.410 Z3A.32 - A1- good glycemic control [id number] [facility] [address],[place] [address] 01/11/2025 10:20:01 01/11/2025 12:06:23 Gestational diabetes mellitus 36730871 O24.410 O36.63X0 Z3A.36 [id number] TRINI RODRIGUEZ MD [place] [address],[place] [address] 01/11/2025 10:20:16 01/11/2025 12:33:12 Gestational diabetes mellitus 88818527 O24.410 O36.63X0 Z3A.36 - A1- good glycemic control Klinefelte r's syndrome, XXY 195699595 Q98.0 - high risk on NIPT- declined amniocente sis- plan for cord blood at delivery for confirmato ry testing Large for gestation age fetus 098651023 O36.63X0 - 94% at 11/2024 [facility] scan- 88% at 01/11/25 (36 week) [place] History of cytomegalovirus infection 4318094709 95423903 Z86.19 - positive antibodies , drawn due to echogenic bowel which resolved- weekly testing per [facility] Gestation period, 36 weeks 48587397 Z3A.36 - continue PNV- GBS collected today [id number] [facility] [address],[place] [address] 01/18/2025 13:29:19 01/18/2025 14:02:39 Gestational diabetes mellitus 47463638 O24.410 Z3A.37 [id number] Julieta Vader [place] [address] [place] [address] 01/18/2025 13:29:38 01/18/2025 14:42:35 Gestational diabetes mellitus 04102848 O24.410 O36.63X0 Z3A.36 - A1- good glycemic control [id number] TRINI RODRIGUEZ MD [place] [address],[place] [address] 01/18/2025 13:29:48 01/18/2025 14:58:44 Klinefelter's syndrome, XXY 535670922 Q98.0 - high risk on NIPT- declined amniocente sis- plan for cord blood at delivery for confirmato ry testing Gestationa l diabetes mellitus 20833252 O24.410 - A1- good glycemic control Gestation period, 37 weeks 57647369 Z3A.37 - continue PNV [facility] reptococcus carrier 0015500135 103 Z22.330 - plan for antibiotic s during labor Health Concerns Section Related Observation LastModified by Organization Detai ls LastModified Time None Recorded Concern Status LastModified by Organization Details LastModified Time None Recorded Advance Directives Directive N: Payers Encounter Date Sequence Insurance Name Policy Number Policy Rivers Covered Member ID Rivers Member ID Guarantor Name 01/11/2025 1 [employer] [facility] [place] ([place] H[place]) [id number] Lani Ho [id number] Lani Ho 01/11/2025 1 [facility] (MEDICAID HMO) [id number] Lani Ho [id number] Lani Ho 01/18/2025 1 [facility] (MEDICAID HMO) [id number] Lani Ho [id number] Lani Ho 01/18/2025 1 [employer] [facility] [place] [id number] 0003 Lani Ho [id number] Lani Ho 01/18/2025 1 [employer] [facility] [place] [id number] Lani Ho [id number] Lani Ho OBGyn Episode Ob Episode Information Episode Created Date Number of Fetuses Patient Bloodtype Patient rh Status Prepregnancy Weight lbs Domestic Partner Domestic Partner Phone Father Name 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 Helper Generation Status 12/15/19 25 1 OPEN Fetus Data First Name Last Name Admitted to NICU Weight (g) Sex Living Outcome Pediatric Complications Fetus ID Race Codes Race Delivery Type [id number] Problems Problem Notes GBS + Problem Name Start Date End Date Resolution Snomed Code Not e Large for gestation age fetus 94% at 11/2024 [facility] US Gestational diabetes mellitus 91708832 Cytomegalovirus antibody screening 268724370 Positive per M M; echogenic bowel on 3T US, resolved on later scan; twice weekly testing per [facility] Klinefelter's syndrome, XXY 460804719 High risk on NI PT; declined amniocentesis; [...] Weight in lbs Pre/Post Dialysis Refused Weight 182.162789568362 BP Diastolic BP Location Tested BP Systolic [...] Type Weight in lbs Pre/Post Dialysis Refused 186.040559758301 BP Diastolic BP Location Tested BP Systolic BP Type 83 L arm 127 sitting Fetus Heart Rate Present A 145 Fetus Movement A Yes Comments Good movement. No cram ping or bleeding. Transfer from [place] at 32 weeks; has been complicated by GDMA1; good glycemic control per patient. Checking fasting and 2h PP sugars. Discussed risks of GDM including increased risk of c section, shoulder dystocia and hypoglycemia. Discussed importance of good glycemic control. Patient has also been followed by [facility] for suspected Kleinfelter's syndrome, high risk on NIPT however declined amniocentesis. Will send cord blood at delivery to confirm. On review of MFM records, patient had +CMV antibodies. Will request further records regarding CMV. Per patient, [facility] recommends twice weekly testing. Most recent growth US was significant for EFW 94%; will continue to monitor. RTC 2 weeks. Discussed GBS for next week. Flowsheet Date 01/11/2025 Lozada Score Blood Edema Fundus Height Fundus Units Glucose Ketones Leukocytes Nitrite Labor Signs Protein Cervic Dilation Cervic Effacement Cervic Station Type Weight in lbs Pre/Post Dialysis Refused BP Diastolic BP Location Tested BP Systolic BP Type Fetus Heart Rate Present Fetus Movement Comments Flowsheet Date 01/11/2025 Lozada Score Blood Edema Fundus Height Fundus Units Glucose Ketones Leukocytes Nitrite Labor Signs Protein Cervic Dilation Cervic Effacement Cervic Station Type Weight in lbs Pre/Post Dialysis Refused BP Diastolic BP Location Tested BP Systolic BP Type Fetus Heart Rate Present Fetus Movement Comments Flowsheet Date 01/11/2025 Lozada Score Blood Edema Fundus Height Fundus Units Glucose Ketones Leukocytes Nitrite Labor Signs Protein Cervic Dilation Cervic Effacement Cervic Station neg none 0cm 50% -3 Type Weight in lbs Pre/Post Dialysis Refused Weight 186.095195477486 BP Diastolic BP Location Tested BP Systolic BP Type 83 L arm 125 sitting Fetus Heart Rate Present A 140 Fetus Movement A Yes Comments Patient c/o back pains and p elvic pressure. Good movement. Glucose overall wnl, no consistently abnormal readings. Received rhogam. BPP 08/20, EFW 88% (previously 94%). GBS collected today. SVE 0.5cm. Discussed MIL for GDM between 79h9-82y8d. Patient to discuss with partner and will discuss next week. RTC 1 week. Flowsheet Date 01/18/2025 Lozada Score Blood Edema Fundus Height Fundus Units Glucose Ketones Leukocytes Nitrite Labor Signs Protein Cervic Dilation Cervic Effacement Cervic Station Type Weight in lbs Pre/Post Dialysis Refused BP Diastolic BP Location Tested BP Systolic BP Type Fetus Heart Rate Present Fetus Movement Comments Flowsheet Date 01/18/2025 Lozada Score Blood Edema Fundus Height Fundus Units Glucose Ketones Leukocytes Nitrite Labor Signs Protein Cervic Dilation Cervic Effacement Cervic Station Type Weight in lbs Pre/Post Dialysis Refused BP Diastolic BP Location Tested BP Systolic BP Type Fetus Heart Rate Present Fetus Movement Comments Flowsheet Date 01/18/2025 Lozada Score Blood Edema Fundus Height Fundus Units Glucose Ketones Leukocytes Nitrite Labor Signs Protein Cervic Dilation Cervic Effacement Cervic Station trace none Type Weight in lbs Pre/Post Dialysis Refused Weight 186.108906483992 BP Diastolic BP Location Tested BP Systolic BP Type 77 116 Fetus Heart Rate Present A 140 Fetus Movement A Yes Comments Good movement. No cram ping, did have some spotting after exam last week. BPP 8/10, nonreactive (1 accel). GBS positive, discussed antibiotics during labor. Would like to wait until due date for induction, will schedule next week. Glucose log wnl. RTC 1 week. Menstrual History Last Menstrual Date Menses [...]
[2025-01-20 07:27] LABS: Add Urine Microscopic? NO; Appearance Urine Clear (Clear); Bilirubin Urine Negative (Negative); Blood Urine Negative (Negative); Color Urine Yellow (Yellow); Glucose Urine UA Negative (Negative); Ketones Urine 3+ mg/dL (Negative); Leukocyte Esterase Ur Negative LEU/UL (Negative); Nitrate Urine Negative (Negative); Protein Urine Negative (Negative); Specific Grav Ur 1.019 (1.001-1.035); pH Urine 6.5 (5.0-9.0)
--- NOTE | 2025-02-05 20:41 | PM.OBTRLD ---
OB - Triage/Final Diagnosis Visit Information Comments/Additional reasons for admission: I have assessed the risk for this patient, Lani Mariangel Ho, and determined that she would benefit from observation care. Evaluation Laboratory results: Laboratory Tests 01/20/25 07:11 Urine Color Yellow Urine Appearance Clear Urine pH 6.5 Ur Specific [place] 1.019 Urine Protein Negative Urine Glucose (UA) Negative Urine Ketones 3+ H Ur Blood (Man) Negative Urine Nitrate Negative Urine Bilirubin Negative Urine Urobilinogen 1.0 Leukocyte Esterase Rfl Negative Final Diagnosis (1) Irregular contractions: Code(s): O47.9 - False labor, unspecified Status: Acute
== END 2025-01-20 09:52 | disposition home or self-care (01) ==
PROVIDERS: Admitting Provider Obstetrics & Gynecology; Visit Provider Obstetrics & Gynecology
DX: O47.1 False labor at or after 37 completed weeks of gestation (principal); Z3A.37 37 weeks gestation of pregnancy
CPT/HCPCS: 81003; G0378; G0379

== ENCOUNTER 2025-01-21 19:01 | Observation (INO) | payer OTHER, SELFPAY ==
--- OUTSIDE RECORDS SUMMARY | 2025-01-21 17:55 | XMS_ITS | Clinical Summary ---
Author Organization [facility] Address [address] [place] [address] Care Team Providers Care Chemical Engineer Name Role Phone Geovanna Pyror NP Primary Care Provider + Geovanna Pryor [...] age to complete this topic Care Teams Chemical Engineer Relationship Specialty Start Date End Date Geovanna Pryor NP [address] [place] [address] PCP - General Nurse Practitioner Family 06/17/19 Geovanna Pryor NP [address] [place] [address] 06/17/19
--- OUTSIDE RECORDS SUMMARY | 2025-01-21 17:55 | XMS_ITS ---
Author Organization Unknown Address [address] [place] [address] [phone] Phone Care Team Providers Care Professional Builder Name Role Phone Blanco Gallego Attending Unavailable [...] em Smoking History Never smoker (Never Smoked) 020390204 SNOMED CT Sex Female Sexual Orientation Straight or Heterosexual 82549145 SNOMED CT Gender Identity Female [id number] Vital Signs Vital Sign Value Unit [place] Value [place] Unit Date/Time Recent/Initial? Code Code System Body Mass Index 21.85 kg/m2 06/07/2022 14:23 Initial 41411 -5 [facility] Body Mass Index Percentile 57 % 06/07/2022 14:23 Initial 79629 -9 [facility] Systolic Blood Pressure 118 mm[Hg] 06/07/2022 14:23 Initial 8480- 6 [facility] Diastolic Blood Pressure 72 mm[Hg] 06/07/2022 14:23 Initial 8462- 4 [facility] Body Surface Area 1.75 m2 06/07/2022 14:23 Initial 3140- 1 [facility] Height 171.450 0 cm 67.50 in 06/07/2022 14:23 Initial 8302- 2 [facility] O2 Saturation 99 % 2021 14:23 Initial 87688 -5 [facility] Pulse 107.0 /min 06/07/2022 14:23 Initial 8867- 4 [facility] Respiration 20 /min 06/07/20 14:23 Initial 9279- 1 [facility] Temperature 36.6 Antonella 97.8 F 06/07/20 14:23 Initial 8310- 5 [facility] Weight 64.23 kg 141.60 lbs 06/07/2022 14:23 Initial 90009 -7 [facility] Medications Medication Start Date End Date Route Frequency Dose Code Code System Medication Instructions Home Meds predniSONE 50MG Oral Tablet 06/07/2022 07/31/2022 By Mouth Daily 1 TABLET 513233 RxNorm 1 TABLET By Mouth Daily 30MCG-0.15MG-NA Oral Tablet 06/07/2022 09/12/2022 By Mouth Daily 1 TABLET 943766 RxNorm 1 TABLET By Mouth Daily Diflucan 150MG Oral Tablet 08/07/2022 09/12/2022 By Mouth x1 NOW 1 TABLET 035604 RxNorm 1 TABLET By Mouth x1 NOW FOR MARCH REPEAT IN 72 HOURS Radha 28 3MG-0.02MG Oral Tablet 09/12/2022 12/25/2022 By Mouth Once a day 1 TABLET RxNorm 1 TABLET By Mouth Once a day Medrol Dosepak 4MG Oral Tablet 12/25/2022 02/20/2023 By Mouth As Directed 1 PACK 380324 RxNorm 1 PACK By Mouth As Directed Methocarbamol 750MG Oral Tablet 12/25/2022 03/12/2023 By Mouth As needed every 8 hr 926934 RxNorm 1-2 TABLET By Mouth As needed every 8 hr Odd-28 30 MCG-0.15 MG; NA Oral Tablet 12/25/2022 03/12/2023 By Mouth Daily 1 TABLET 135961 RxNorm 1 TABLET By Mouth Daily Macrobid 100MG Oral Capsule 02/20/2023 03/12/2023 By mouth Twice a day 1 TABLET 620518 RxNorm 1 TABLET By mouth Twice a day X 7 DAYS Pyridium 100MG Oral Tablet 02/20/2023 03/12/2023 By mouth As needed every 8 hr 1 TABLET 5857407 RxNorm 1 TABLET By mouth As needed every 8 hr for urinary pain ZyrTEC Allergy 10MG Oral Capsule, Liquid Filled 03/12/2023 Unknown By Mouth Daily 1 CAPSULE 7984135 RxNorm 1 CAPSULE By Mouth Daily Fluticasone 0.05MG/1Actuati on Nasal [place] 03/12/2023 Unknown Nasal Daily 1 Sprays 4168328 RxNorm 1 Spr ays Nasal Daily Azithromycin 500MG Oral Tablet 06/04/2024 Unknown By Mouth x1 NOW 2 TABLET 474551 RxNorm 2 TABLET By Mouth x1 NOW [...] Status Code Code System SEASONAL ALLERGY active 287520864 SNO MED-CT FAMILY PLANNING 06/20/2020 active 227643781 SNO MED-CT BITE OF INSECT active 111882431 SNOME D-CT ES OF VAGINA 08/07/2022 active 81289911 S NOMED-CT MENORRHAGIA active 946696557 SNOMED-C T PAINFUL NECK active 70807737 SNOMED- CT ADHD OF CHILDHOOD 07/22/2019 resolved 260405404 S NOMED-CT SEASONAL NASAL ALLERGY 07/22/2019 resolved 361024 001 SNOMED-CT HISTORY OF CHICKENPOX 07/22/2019 resolved 9236123 08 SNOMED-CT Allergies and Adverse Reactions Allergy Substance Reaction Severity Start Date Concern Status Co de Code System Active seasonal allergies Active No Known Drug Allergies Active 978253988 SNOMED-CT No Known Drug Allergies Active 436966470 SNOMED-CT Plan of Treatment Description Due Date Details Instructions DEPRESSION SCREENING DUE 06/20/2021 Encounters Encounter Diagnosis Start Date Code Code Sys tem Well child visit 06/07/2022 215058459 SNOMED-CT Personal Care Team Section Performer Name Performer Role Active Date Inactive Da te Progress Notes [facility] 06/07/2022 15:22 All Demographics Patient Name Age Sex Visit Number Admission Date/Time Attending Physician Date of Service Room and Bed Emergency Contact NELA MANZANARES 2005 16 years Female [id number] 06/07/2022 14:22 Julián Simeon 06/07/2022 402 06/07/2022 14:25 Accompanied By: Parent Parent, mother X. Parent, father Guardian Relative donor services team leader Caregiver Family Protective services Friend Healthcare provider Law enforcement Dress Finisher / EMS Spouse / SO Other: Preferred Language: Maltese. Vital Signs: This Visit Date/Time BP (mm/Hg) [...] environment active No Known Drug Allergies medication [id number] Nutrition X. Daily fruits and vegetables Iron [...] ALL CAPITALIZED = Focus area for this [facility] Visit Constitutional: None. EYES: None. Head, EARS, NOSE, AND THROAT: None. CARDIOVASCULAR: None. RESPIRATORY: None. GASTROINTESTINAL: None. GENITOURINARY: None. MUSCULOSKELETAL: None. SKIN: None. NEUROLOGICAL: None. Other: None. PHYSICAL EXAMINATION ALL CAPITALIZED and = Focus Area for this [facility] Visit GENERAL: x Well-appearing adolescent x Normal [...] Record reviewed Up-to-date for age Administered Today: [place] Screening Depression Screening (annually) Screening Tool Used: [...] year Next Visit: Referral to: [address] y/[address] [facility] - Anticipatory guidance and bright futures discussed. Discussed control methods and will start patient on Odd. Patient to notify office if she is having any side effects. Patient states she is having anxiety, offered multiple options for managing anxiety, patient declines at this time.
--- OUTSIDE RECORDS SUMMARY | 2025-01-21 17:55 | XMS_ITS ---
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 Code Code System Body Mass Index 26.21 kg/m2 05/06/2023 12:01 Initial 98455 -5 [facility] Body Mass Index Percentile 85 % 05/06/2023 12:01 Initial 70240 -9 [facility] Systolic Blood Pressure 118 mm[Hg] 05/06/2023 12:01 Initial 8480- 6 [facility] Diastolic Blood Pressure 74 mm[Hg] 05/06/2023 12:01 Initial 8462- 4 [facility] Body Surface Area 3.35 m2 05/06/2023 12:01 Initial 3140- 1 [facility] Height 248.920 0 cm 98.00 in 05/06/2023 12:01 Initial 8302- 2 [facility] O2 Saturation 98 % 2022 12:01 Initial 35475 -5 [facility] Pulse 78.0 /min 05/06/2023 12:01 Initial 8867- 4 [facility] Temperature 36.4 Antonella 97.5 F 05/06/20 12:01 Initial 8310- 5 [facility] Weight 162.40 kg 358.03 lbs 05/06/2023 12:01 Initial 73193 -7 [facility] Medications Medication Start Date End Date Route Frequency Dose Code Code System Medication Instructions Home Meds ZyrTEC Allergy 10MG Oral Capsule, Liquid Filled 03/12/2023 Unknown By Mouth Daily 1 CAPSULE 0977346 RxNorm 1 CAPSULE By Mouth Daily Fluticasone 0.05MG/1Actuatio n Nasal [place] 03/12/2023 Unknown Nasal Daily 1 Sprays 7675586 RxNorm 1 Spra ys Nasal Daily Azithromycin 500MG Oral Tablet 06/04/2024 Unknown By Mouth x1 NOW 2 TABLET 043918 RxNorm 2 TABLET By Mouth x1 NOW [...] Status Code Code System SEASONAL ALLERGY active 773572137 SNO MED-CT FAMILY PLANNING 06/20/2020 active 580262173 SNO MED-CT BITE OF INSECT active 667786114 SNOME D-CT ES OF VAGINA 08/07/2022 active 38225315 S NOMED-CT MENORRHAGIA active 588252718 SNOMED-C T PAINFUL NECK active 99500921 SNOMED- CT ADHD OF CHILDHOOD 07/22/2019 resolved 534895677 S NOMED-CT SEASONAL NASAL ALLERGY 07/22/2019 resolved 810622 001 SNOMED-CT HISTORY OF [place] 07/22/2019 resolved 1055120 08 SNOMED-CT Allergies and Adverse Reactions Allergy Substance Reaction Severity Start Date Concern Status Co de Code System Active seasonal allergies Active No Known Drug Allergies Active 978925746 SNOMED-CT No Known Drug Allergies Active 852899462 SNOMED-CT Plan of Treatment Description Due Date Details Instructions DEPRESSION SCREENING DUE 06/20/2021 Encounters Encounter Diagnosis Start Date Code Code Sys tem Injury of head 05/06/2023 66738505 SNOMED-CT Personal Care Team Section Performer Name Performer Role Active Date Inactive Da te Progress Notes [facility] 05/06/2023 13:28 Date of Service: 05/06/2023 Convenient [...] Instructions Start Date Prescribing Fluticasone 0.05MG/1Actuation Nasal [place] 1 Sprays Nasal Daily 03/12/2023 Blanco Gallego ZyrTEC Allergy 10MG Oral Capsule, Liquid Filled 1 CAPSULE By Mouth Daily 03/12/2023 Blanco Gallego This examination was transcribed using the [employer] voice recognition system without human prescription clerk lenses. In an effort to expedite patient care, this report has not been adjusted for typographical, or medical or syntax by a trained medical office worker.
--- OUTSIDE RECORDS SUMMARY | 2025-01-21 17:55 | XMS_ITS ---
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 Code Code System Body Mass Index 22.93 kg/m2 09/12/2022 17:59 Initial 05958 -5 [facility] Body Mass Index Percentile 67 % 09/12/2022 17:59 Initial 73157 -9 [facility] Systolic Blood Pressure 100 mm[Hg] 09/12/2022 17:59 Initial 8480- 6 [facility] Diastolic Blood Pressure 70 mm[Hg] 09/12/2022 17:59 Initial 8462- 4 [facility] Body Surface Area 1.81 m2 09/12/2022 17:59 Initial 3140- 1 [facility] Height 172.720 0 cm 68.00 in 09/12/2022 17:59 Initial 8302- 2 [facility] O2 Saturation 99 % 2021 17:59 Initial 43140 -5 [facility] Pulse 95.0 /min 09/12/2022 17:59 Initial 8867- 4 [facility] Respiration 18 /min 09/12/20 17:59 Initial 9279- 1 [facility] Temperature 36.9 Antonella 98.4 F 09/12/20 17:59 Initial 8310- 5 [facility] Weight 68.40 kg 150.80 lbs 09/12/2022 17:59 Initial 97216 -7 [facility] Medications Medication Start Date End Date Route Frequency Dose Code Code System Medication Instructions Home Meds Anel-28 30MCG-0.15MG-NA Oral Tablet 06/07/2022 09/12/2022 By Mouth Daily 1 TABLET 415272 RxNorm 1 TABLET By Mouth Daily Diflucan 150MG Oral Tablet 08/07/2022 09/12/2022 By Mouth x1 NOW 1 TABLET 727510 RxNorm 1 TABLET By Mouth x1 NOW FOR MARCH REPEAT IN 72 HOURS Radha 28 3MG-0.02MG Oral Tablet 09/12/2022 12/25/2022 By Mouth Once a day 1 TABLET RxNorm 1 TABLET By Mouth Once a day Medrol Dosepak 4MG Oral Tablet 12/25/2022 02/20/2023 By Mouth As Directed 1 PACK 100317 RxNorm 1 PACK By Mouth As Directed Methocarbamol 750MG Oral Tablet 12/25/2022 03/12/2023 By Mouth As needed every 8 hr 452027 RxNorm 1-2 TABLET By Mouth As needed every 8 hr [place]-28 30 MCG-0.15 MG; NA Oral Tablet 12/25/2022 03/12/2023 By Mouth Daily 1 TABLET 137456 RxNorm 1 TABLET By Mouth Daily Macrobid 100MG Oral Capsule 02/20/2023 03/12/2023 By mouth Twice a day 1 TABLET 732053 RxNorm 1 TABLET By mouth Twice a day X 7 DAYS Pyridium 100MG Oral Tablet 02/20/2023 03/12/2023 By mouth As needed every 8 hr 1 TABLET 0534847 RxNorm 1 TABLET By mouth As needed every 8 hr for urinary pain ZyrTEC Allergy 10MG Oral Capsule, Liquid Filled 03/12/2023 Unknown By Mouth Daily 1 CAPSULE 2008708 RxNorm 1 CAPSULE By Mouth Daily Fluticasone 0.05MG/1Actuatio n Nasal [place] 03/12/2023 Unknown Nasal Daily 1 Sprays 9140984 RxNorm 1 Spra ys Nasal Daily Azithromycin 500MG Oral Tablet 06/04/2024 Unknown By Mouth x1 NOW 2 TABLET 291597 RxNorm 2 TABLET By Mouth x1 NOW Assessment You had the following problems:SEASONAL ALLERGYFAMILY PLANNINGBITE OF INSECTCANDIDA OF VAGINAMENORRHAGIAPAINFUL NECK Assessment/Plan: 1) Menorrhagia: Will check TSH, T4, CBC, PT/INR, and CMP. Will discontinue the Anel and start her on Radha 1 tablet daily. 2) Contraceptive management: Patient is currently on [place] but this is not managing her periods [...] Status Code Code System SEASONAL ALLERGY active 392922357 SNO MED-CT FAMILY PLANNING 06/20/2020 active 951923978 SNO MED-CT BITE OF INSECT active 638098871 SNOME D-CT ES OF VAGINA 08/07/2022 active 01978232 S NOMED-CT MENORRHAGIA active 973479614 SNOMED-C T PAINFUL NECK active 72038494 SNOMED- CT ADHD OF CHILDHOOD 07/22/2019 resolved 721298985 S NOMED-CT SEASONAL NASAL ALLERGY 07/22/2019 resolved 654373 001 SNOMED-CT HISTORY OF [place]PO[place] 07/22/2019 resolved 7886666 08 SNOMED-CT Allergies and Adverse Reactions Allergy Substance Reaction Severity Start Date Concern Status Co de Code System Active seasonal allergies Active No Known Drug Allergies Active 367587441 SNOMED-CT No Known Drug Allergies Active 382504848 SNOMED-CT Plan of Treatment Description Due Date Details Instructions DEPRESSION SCREENING DUE 06/20/2021 Future Order Description Future Order Date Futu re Order Loinc: TSH 09/12/2022 LOINC: 90635-3 FREE T4 09/12/2022 LOINC: 3024-7 CBC W DIFF 09/12/2022 LOINC: 50227-6 COMPREHENSIVE METABOLIC PANEL 09/12/2022 L OINC: 52020-9 PT (PROTIME) 09/12/2022 LOINC: 6301-6 Encounters Encounter Diagnosis Start Date Code Code Sys tem Excessive and frequent menstruation 09/12/2022 33792 1003 SNOMED-CT Personal Care Team Section Performer Name Performer Role Active Date Inactive Da te Progress Notes [facility] 09/13/2022 09:49 Admission Date/Time: 09/12/2022 13:21 Rachael Andersen MD Clinic Visit Note Chief Complaint: DISCUSS BC Has the patient received a COVID Vaccine? Yes Nurse Note: this nurse note is documented by Opal Ly CMA 17 yr old female present to [facility] today to discuss BC History of Present Illness: An 17-year-old presents to [facility] today to discuss BC. Patient states since [...] CBC, PT/INR, and CMP. Will discontinue the [place] and start her on Radha 1 tablet daily. 2) Contraceptive management: Patient is currently on [place] but this is not managing her periods [...] records Referring and communicating with other health caretaker resort Obtaining and/or reviewing separately obtained history Independent [...]
--- OUTSIDE RECORDS SUMMARY | 2025-01-21 17:55 | XMS_ITS ---
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 Name Role Phone DEON CONROY Attending Unavailable Results CYTOMEGALOVIRUS AB IGG - Col lect Date/Time: 10/22/2024 14:12 [facility] ID: [id number] [address] [place], [place], [phone] LOINC: 5124-3 Test Value Unit Reference Range Code Code System Flag CYTOMEGALOVIRUS ANTIBODY(IGG) >10.00 H PARVOVIRUS B19 IGG & IGM - C ollect Date/Time: 10/22/2024 14:12 [facility] ID: [id number] [address] [place], [place], [phone] LOINC: 5273-8 Test Value Unit Reference Range Code Code System Flag PARVOVIRUS B19 ANTIBODY(IGG) 0.2 PARVOVIRUS B19 ANTIBODY(IGM) 0.2 Social History Type Status Start Date End Date Code Code Syst em Smoking History Never smoker (Never Smoked) 346665550 SNOMED CT Sex Female Sexual Orientation Straight or Heterosexual 10868679 SNOMED CT Gender Identity Female [id number] [address] Medications Medication Start Date End Date Route Frequency Dose Code Code System Medication Instructions Home Meds ZyrTEC Allergy 10MG Oral Capsule, Liquid Filled 03/12/2023 Unknown By Mouth Daily 1 CAPSULE 4685073 RxNorm 1 CAPSULE By Mouth Daily Fluticasone 0.05MG/1Actuatio n Nasal [place] 03/12/2023 Unknown Nasal Daily 1 Sprays 6937204 RxNorm 1 Spra ys Nasal Daily Azithromycin 500MG Oral Tablet 06/04/2024 Unknown By Mouth x1 NOW 2 TABLET 966362 RxNorm 2 TABLET By Mouth x1 NOW [...] Status Code Code System SEASONAL ALLERGY active 657146263 SNO MED-CT FAMILY PLANNING 06/20/2020 active 532887043 SNO MED-CT BITE OF INSECT active 950223214 SNOME D-CT ES OF VAGINA 08/07/2022 active 26159842 S NOMED-CT MENORRHAGIA active 010085298 SNOMED-C T PAINFUL NECK active 95726601 SNOMED- CT ADHD OF CHILDHOOD 07/22/2019 resolved 560441806 S NOMED-CT SEASONAL NASAL ALLERGY 07/22/2019 resolved 691597 001 SNOMED-CT HISTORY OF [place] 07/22/2019 resolved 1816984 08 SNOMED-CT Allergies and Adverse Reactions Allergy Substance Reaction Severity Start Date Concern Status Co de Code System Active seasonal allergies Active No Known Drug Allergies Active 864097713 SNOMED-CT No Known Drug Allergies Active 785848504 SNOMED-CT Plan of Treatment Description Due Date Details Instructions DEPRESSION SCREENING DUE 06/20/2021 Encounters Encounter Diagnosis Start Date Code Code Sys tem ultrasound scan abnormal 10/22/2024 284820 005 SNOMED-CT Personal Care Team Section Performer Name Performer Role Active Date Inactive Da xena
--- OUTSIDE RECORDS SUMMARY | 2025-01-21 17:55 | XMS_ITS | Data Portability ---
Author Organization [facility], [facility] Address [address] [place] [address] Assessment No assessment recorded. Plan of Treatment Reminders Order Date Submit Date Provider Last Modified By Organization Details Last Modified Time Details Appointments None recorded. Lab None recorded. Referral None recorded. Procedures None recorded. Surgeries None recorded. Imaging None recorded. Medication Orders Medrol (Rex) 4 mg tablets in a dose pack 2022 023 [facility], [address] [place] [address], [id number], 16:54:18 cyclobenzap rine 5 mg tablet 2022 023 [facility], [facility] [place], [place], [phone], 16:54:27 Patient TargetsNo targets recorded. Patient InstructionsNo instructions recorded. Reason for Referral None Reported. Results Created Date Observation Date Name Description Value Unit Range Abnormal Flag Note LastModifiedBy Organization Detail LastModifiedTime Result Notes None recorded. Problems Name Problem SNOMED Code Status Onset Date Resolution Date Notes Provider Name and Address Organization Details Recorded Time Neck pain 79926535 Active 12/19/19 [facility] 16:44:06 Problem Notes None recorded. [...] Address Organization Details Last Updated DateTime 3 61678.5 9 g 75 % 24 kg/m2 172.72 cm 8 17 /min 98.7 [degF] 75 /min 100 % 100 % 120 mm[Hg] 70 mm[Hg] Analilia Lemon [facility] 16:21:52 Social History Question Answer Notes LastModified by Organizat ion Details LastModified Time Tobacco Smoking Status Never Smoker Analilia Lemon [facility] 12/19/2022 16:19:49 What Is Your Level Of Alcohol Consumption? None [email or web address] Information not available 12/19/2022 What Is Your Level Of Caffeine Consumption? None [email or web address] Information not available 12/19/2022 In The 14 Days Before Symptom Onset, Have You Had Close Contact With A Laboratory-confir med COVID-19 While That Case Was Ill? No [email or web address] Information not available 12/19/2022 In The 14 Days Before Symptom Onset, Have You Had Close Contact With A Person Who Is Under Investigation For COVID-19 While That Person Was Ill? No [email or web address] Information not available 12/19/2022 Do You Or Have You Ever Used E-cigarettes Or Vape? Former User Of Electronic Cigarettes Quit About 4 Months Ago [email or web address] Information not available 12/19/2022 What Was The Date Of Your Most Recent Tobacco Screening? 12/19/2022 [email or web address] Information not available 12/19/2022 Do You Or Have You Ever Used Smokeless Tobacco? Never Used Smokeless Tobacco [email or web address] Information not available 12/19/2022 Do You Use Any Illicit Or Recreational Drugs? No [email or web address] Information not available 12/19/2022 Have You Recently Traveled Abroad? No [email or web address] Information not available 12/19/2022 Do You Or Have You Ever Used Any Other Forms Of Tobacco Or Nicotine? Yes [email or web address] Information not available 12/19/2022 Sex: Unknown Functional Status None recorded. Mental Status None recorded. Family History Nothing Reported. Medical History No medical history recorded. Gynecological History Statement/Question Response Date of LMP 12/04/2022 Obstetrics History GPAL:G 0 P 0 0 0 0 Immunizations Vaccine Type Date Status Note Provider Nam e and Address Organization Details Recorded Time Hib, unspecified formulation 5 desiree acosta, [facility] 06/20/2023 14:41:02 Hib, unspecified formulation 5 desiree acosta, [facility] 06/20/2023 14:41:02 Hib, unspecified formulation 5 desiree acosta, [facility] 06/20/2023 14:41:02 HPV9 8 desiree Lilly null, [facility] 06/20/2023 14:41:02 HPV9 9 desiree acosta, [facility] 06/20/2023 14:41:02 IPV 5 desiree acosta, [facility] 06/20/2023 14:41:02 IPV 5 desiree acosta, [facility] 06/20/2023 14:41:02 MMR 5 desiree acosta, [facility] 06/20/2023 14:41:02 MMR 9 completed Rebecca Lilly null, [facility] 06/20/2023 14:41:02 COVID-19, mRNA, LNP-S, PF, 30 mcg/0.3 mL dose 1 completed Rebecca Lilly null, [facility] 06/20/2023 14:41:02 COVID-19, mRNA, LNP-S, PF, 30 mcg/0.3 mL dose 1 completed Rebecca Lilly null, [facility] 06/20/2023 14:41:02 pneumococcal conjugate PCV 7 5 completed Rebecca Lilly null, [facility] 06/20/2023 14:41:02 pneumococcal conjugate PCV 7 5 completed Rebecca Lilly null, [facility] 06/20/2023 14:41:02 pneumococcal conjugate PCV 7 5 completed Rebecca Lilly null, [facility] 06/20/2023 14:41:02 DTaP-IPV 9 completed Rebecca Lilly null, [facility] 06/20/2023 14:41:02 influenza, unspecified formulation 6 completed Rebecca Lilly null, [facility] 06/20/2023 14:41:02 Tdap 8 completed Rebecca Lilly null, [facility] 06/20/2023 14:41:02 varicella 5 completed Rebecca Lilly null, [facility] 06/20/2023 14:41:02 varicella 9 completed Rebecca Lilly null, [facility] 06/20/2023 14:41:02 influenza, split (incl. purified surface antigen) 0 completed Rebecca Lilly null, [facility] 06/20/2023 14:41:02 Hep B, adolescent or pediatric 5 desiree Lilly null, [facility] 06/20/2023 14:41:02 Hep B, adolescent or pediatric 4 completed Rebecca Lilly null, [facility] 06/20/2023 14:41:02 meningococcal MCV4P 8 dseiree acosta, [facility] 06/20/2023 14:41:02 meningococcal MCV4P 0 desiree acosta, [facility] 06/20/2023 14:41:02 DTaP 5 desiree Rebecca Lilly dave, [facility] 06/20/2023 14:41:02 DTaP 5 desiree Rebeccaandrea Lilly null, [facility] 06/20/2023 14:41:02 DTaP-Hep B-IPV 5 desiree Rebecca Lilly dave, [facility] 06/20/2023 14:41:02 Influenza, split virus, quadrivalent, PF 8 desiree acosta, [facility] 06/20/2023 14:41:02 Past Encounters Encounter ID Performer Location Encounter Start Date Encounter Closed Date Diagnosis/Indication Diagnosis SNOMED-CT Code Diagnosis ICD10 Code Diagnosis Note [id number] Sarbjit Jenkins [address] [address] 12/19/2022 15:59:56 12/19/2022 16:54:35 Neck pain 58212838 M54.2 No radiculopa thy.Trigge r point? Apply [...] Rivers Member ID Guarantor Name 12/19/2022 1 [facility] (MEDICAID HMO) [id number] Lani Ho [id number] Lani Ho Notes Date Note Type Note [...] missing school yesterday, and today. Sarbjit acosta, [facility] 12/19/2022 16:51:04 OBGyn Episode No OBEpisode recorded.
--- OUTSIDE RECORDS SUMMARY | 2025-01-21 17:56 | XMS_ITS | Data Portability ---
Author Organization codetag , [facility] Address [address] [place] [address] Assessment No assessment recorded. Plan of Treatment Reminders Order Date Submit Date Provider Last Modified By Organization Details Last Modified Time Details Appointments None recorded. Lab CBC w/ auto diff 2024 025 [place] [facility], [address] [place], [address], 5 12:24:38 glucose tolerance test, post-50G, 1-hour 2024 025 [facility], [address] [place], [address], 5 12:35:39 obstetric screen, serum or blood 2024 025 [place] [facility], [address] [place], [address], 5 14:47:18 Referral None recorded. Procedures None recorded. Surgeries None recorded. Imaging None recorded. Medication Orders None recorded. Patient TargetsNo targets recorded. Patient Instructions Encounter Date Encounter Id Patient Instructions Last Modified By Organization Details Last Modified Time 11/18/2024 [id number] learning about screening for gestational diabetes Not available 11/18/2024 15:10:20 11/26/2024 [id number] Anxiety During and After : Care Instructions Not available 11/26/2024 17:57:56 Reason for Referral None Reported. Results Created Date Observation Date Name Description Value Unit Range Abnormal Flag Note LastModifiedBy Organization Detail LastModifiedTime 11/18/1911/19/2024 CBC (INCL UDES DIFF/ PLT) WBC 7.6 thous and/u L 4.0 - 9.8 normal Not Available [facility] [address] [place] [address], [address], 11/19/2024 12:24:38 11/18/19 25 11/19/2024 CBC (INCL UDES DIFF/ PLT) RBC 3.4 jonathon on/uL 3.9 - 4.9 low Not Available [facility] [address] [place] [address], [address], 11/19/2024 12:24:38 11/18/19 25 11/19/2024 CBC (INCL UDES DIFF/ PLT) hemoglobin 11.0 g/dL 11.8 - 14.8 low Not Available [facility] [address] [place] [address], [address], 11/19/2024 12:24:38 11/18/19 25 11/19/2024 CBC (INCL UDES DIFF/ PLT) hematocrit 32.6 % 35.5 - 44.0 low Not Available [facility] [address] [place] [address], [address], 11/19/2024 12:24:38 11/18/19 25 11/19/2024 CBC (INCL UDES DIFF/ PLT) MCV 96.7 fL 82.0 - 99.0 normal Not Available [facility] [address] [place] [address], [address], 11/19/2024 12:24:38 11/18/1911/19/2024 CBC (INCL UDES DIFF/ PLT) MCH 32.6 pg 27.2 - 32.6 normal Not Available [facility] [address] [place] [address], [address], 11/19/2024 12:24:38 11/18/19 25 11/19/2024 CBC (INCL UDES DIFF/ PLT) MCHC 33.7 g/dL 31.5 - 35.5 normal Not Available [facility] [address] [place] [address], [address], 11/19/2024 12:24:38 11/18/19 25 11/19/2024 CBC (INCL UDES DIFF/ PLT) RDW-CV 12.2 % 11.5 - 14.5 normal Not Available [address], [address], 11/19/2024 12:24:38 11/18/19 25 11/19/2024 CBC (INCL UDES DIFF/ PLT) platelet 294 thous and/u L 140 - 350 normal Not Available [address], [address], 11/19/2024 12:24:38 11/18/19 25 11/19/2024 CBC (INCL UDES DIFF/ PLT) MPV 10.4 fL 9.3 - 12.4 normal Not Available [address], [address], 11/19/2024 12:24:38 11/18/19 25 11/19/2024 CBC (INCL UDES DIFF/ PLT) absolute neutrophil 5.66 thous and/u L 1.90 - 7.00 normal Not Available [address], [address], 11/19/2024 12:24:38 11/18/19 25 11/19/2024 CBC (INCL UDES DIFF/ PLT) absolute lymphocyte 1.32 thous and/u L 0.70 - 4.50 normal Not Available [address], [address], 11/19/2024 12:24:38 11/18/19 25 11/19/2024 CBC (INCL UDES DIFF/ PLT) absolute monocyte 0.46 thous and/u L 0.10 - 1.30 normal Not Available [address], [address], 11/19/2024 12:24:38 11/18/19 25 11/19/2024 CBC (INCL UDES DIFF/ PLT) absolute eosinophil 0.05 thous and/u L <0.70 normal Not Available [address], [address], 11/19/2024 12:24:38 11/18/19 25 11/19/2024 CBC (INCL UDES DIFF/ PLT) absolute basophil 0.03 thous and/u L <0.20 normal Not Available [address], [address], 11/19/2024 12:24:38 11/18/19 25 11/19/2024 CBC (INCL UDES DIFF/ PLT) absolute immature granulocyte 0.08 thous and/u L <0.03 high Not Available [address], [address], 11/19/2024 12:24:38 11/18/19 25 11/19/2024 (50G) 1HR - GLUCO SE GIA ANCE TEST, GESTA ELDER L SCREE N glucose (50g) 1 hour 144 mg/dL <135 high Not Available [address], [address], 11/19/2024 12:35:39 11/18/19 25 11/19/2024 OB 28W (SYPH HIV 1/2 Ag/Ab Non-Re active non-re active normal Not Available [address], [address], 11/19/2024 14:47:18 11/18/19 25 11/19/2024 OB 28W (SYPH syphilis Ab Non-Re active non-re active normal Not Available [address], [address], 11/19/2024 14:47:18 11/23/19 25 11/24/2024 (100G ) 3HR - GLUCO SE GIA ANCE TEST, GESTA ELDER L SCREE N glucose (100g) fasting 86 mg/dL <95 normal Not Available [address], [address], 11/24/2024 14:31:33 11/23/19 25 11/24/2024 (100G ) 3HR - GLUCO SE GIA ANCE TEST, GESTA ELDER L SCREE N glucose (100g) 1 hour 198 mg/dL <180 high Not Available [facility] [address] [place], [address], 11/24/2024 14:31:33 11/23/19 25 11/24/2024 (100G ) 3HR - GLUCO SE GIA ANCE TEST, GESTA ELDER L SCREE N glucose (100g) 2 hour 163 mg/dL <155 high Not Available [facility] [address] [place], [address], 11/24/2024 14:31:33 11/23/19 25 11/24/2024 (100G ) 3HR - GLUCO SE GIA ANCE TEST, GESTA ELDER L SCREE N glucose (100g) 3 hour 145 mg/dL <140 high Not Available [facility] [address] [place], [address], 11/24/2024 14:31:33 09/23/20 24 09/23/2024 US, obste tric, 2nd trime ster No observ ation record ed. [facility] [address] [place] [address], [address], 09/24/2024 15:24:20 10/23/20 24 10/21/2024 US, obste tric No observ ation record ed. [email or web address] [facility] [address] [place] [address], [address], 11/30/2024 13:18:29 11/20/19 25 11/19/2024 US, obste tric No observ ation record ed. [email or web address] [facility] [address] [place] [address], [address], 12/02/2024 14:05:06 Result Notes None recorded. 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) WOLF GUADARRAMA NP [address] [place] [address], [address], [place] [facility] 5 18:48:16 RhD negative 154818453 Active 2024 RH (D) NIPT detected will need [place] [address] [place] [address], [address], [place] [facility] 5 18:49:16 Large for gestation age fetus 910701329 Active 2024 EFW 98%tile on 10/22 Echogenic bowel 11/19-94%til e WOLF GUADARRAMA NP [facility] [place], [address], [place] [facility] 5 14:05:39 Gestationa l diabetes mellitus 60768070 Active 2024 WOLF GUADARRAMA NP [facility] [place], [address], [place] [facility] 5 17:52:44 Problem Notes None recorded. Procedures Surgical History Date Name Laterality Status Provider Name and Address Organization Details Recorded Time Appendectomy completed Rebecca Chadwick [place] - [facility] 06/09/2024 15:08:50 Imaging Results Imaging Date Name Status LastModified by Organiz ation Details LastModified Time 09/23/2024 US, obstetric, 2nd trimester completed [email or web address] [facility] [address] [place] [address], [address], 09/24/2024 15:24:20 10/21/2024 US, obstetric completed [email or web address] [facility] [address] [place], [address], 11/30/2024 13:18:29 11/19/2024 US, obstetric completed [email or web address] [facility] [address] [place], [address], 12/02/2024 14:05:06 Procedure Notes None recorded. Medical [...] 4 172.72 cm 26 kg/m2 83 % 43021.2 9527 g 120 mm[Hg] 70 mm[Hg] [facility] 4 15:43:01 Date Recorded Body weight Body mass index (BMI) Percentile per age and sex Body mass index (BMI) Body height Body temperature Systolic blood pressure Diastolic blood pressure Provider Name and Address Organization Details Last Updated DateTime 4 02950.8 62714 g 85 % 26.7 kg/m2 172.72 cm 96.6 [degF] 118 mm[Hg] 68 mm[Hg] Cristela [facility] IV 4 14:19:52 Date Recorded Body weight Body mass index (BMI) Body mass index (BMI) Percentile per age and sex Body height Systolic blood pressure Diastolic blood pressure Provider Name and Address Organization Details Last Updated DateTime 5 50335.4 4186 g 27.1 kg/m2 86 % 172.72 cm 110 mm[Hg] 70 mm[Hg] [facility] IV 5 14:46:18 Date Recorded Body weight Body mass index (BMI) Body mass index (BMI) Percentile per age and sex Body height Systolic blood pressure Diastolic blood pressure Provider Name and Address Organization Details Last Updated DateTime 5 45618.6 266 g 27.4 kg/m2 87 % 172.72 cm 112 mm[Hg] 68 mm[Hg] [facility] IV 5 16:44:47 Date Recorded Body weight Body mass index (BMI) Percentile per age and sex Body mass index (BMI) Body height Systolic blood pressure Diastolic blood pressure Provider Name and Address Organization Details Last Updated DateTime 5 71768.8 4949 g 86 % 26.9 kg/m2 172.72 cm 112 mm[Hg] 70 mm[Hg] [facility] IV 5 14:34:15 Social History Question Answer Notes LastModified by Organizat ion Details LastModified Time Tobacco Smoking Status Never Smoker Rebecca acosta, [facility] 06/09/2024 15:08:08 What Is Your Level Of Alcohol Consumption? None [email or web address] Information not available 06/09/2024 If You Are , What Was Your Level Of Alcohol Consumption Prior To ? None Information not available 06/09/2024 Are You Blind Or Do You Have Difficulty Seeing? No Information not available 06/23/2024 Are You Deaf Or Do You Have Serious Difficulty Hearing? No Information not available 06/23/2024 What Type Of Diet Are You Following? REGULAR [email or web address] Information not available 06/09/2024 How Many Children Do You Have? 0 [email or web address] Information not available 06/23/2024 What Is Your Relationship Status? Domestic Partner [email or web address] Information not available 06/09/2024 Are You Sexually Active? Yes [email or web address] Information not available 06/09/2024 Do You Use Any Illicit Or Recreational Drugs? No [email or web address] Information not available 06/09/2024 Do You Or Have You Ever Used Any Other Forms Of Tobacco Or Nicotine? No [email or web address] Information not available 06/09/2024 Sex: Unknown Functional [...] 15:07:47 Mother No current problems or disability [email or web address] Not available 05/13 15:07:47 Medical History Condition Response Other Cancer N High Blood Pressure N Colon Cancer N Cytomegalovirus N Hyperthyroidism N Herpes (HSV) N Breast Cancer N Blood Transfusion N MRSA N Lung Cancer N Hypothyroidism N Depression N Incontinence N Panic Attacks N Neurological Disorder N Deep Vein Thrombosis N Anxiety Disorder N Autoimmune disease N Arthritis N Tuberculosis/Positive PPD N Shingles N Polycystic Ovarian Syndrome N Infertility N Cervical Cancer N Hematuria N Chlamydia N Varicosities N Stroke N Crohn's Disease N Seasonal allergies N Alzheimer's/Dementia N COPD/Emphysema N HPV/Genital Warts N Endometriosis N IBS (Irritable Bowel Syndrome) N History of Abnormal Pap N High Cholesterol N Liver Disease N Kidney Infection N Fibromyalgia N Ulcer N Kidney Disease N HIV N Gallbladder disease N Sickle Cell Disease/Trait N Von Willebrand disease N ADD/ADHD N Eating Disorder N Diabetes Mellitus (non-insulin dependent ) N Anemia N Ovarian Problems N Multiple Sclerosis N [...] SNOMED-CT Code Diagnosis ICD10 Code Diagnosis Note [id number] WOLF GUADARRAMA NP [address] [address] 06/09/2024 15:02:07 06/10/2024 15:59:32 Missed period 77993126 N92.6 Patient with possible early gestation. Patient is unsure of LMP possibly 6.17.24. Denies VB or abnormal discharge. SAB precaution s reviewed. To RTC in 2-3 weeks for repeat TVUS [id number] WOLF GUADARRAMA NP [address] [address] 06/23/2024 14:51:10 06/23/2024 16:28:07 test positive 854785311 Z32.01 Pt presents today for a confirmati [...] vitamins daily---To xoplasmosi s precaution s reviewed-- -[facility] Guide; What to expect on your maternity journey -- -S/S of SAB reviewed and when to seek care RTC for 1st OB, Labs, and Physical. --BMI:24.9 [id number] WOLF GUADARRAMA NP [facility] [address] [place] [address] 07/22/2024 16:12:51 07/22/2024 16:55:54 Gestation period, 11 weeks 98716074 Z3A.11 screening 2437 81293 Z36.89 Normal 0650963 2 Z34.90 Pt comes in today for a New/First OB visit.Gest ation:11 w3 dEDD: -- PMH: Anxiety-- Medication s: Taking daily PNV, paxton supp for N/V and tylenol-- Previous OB History: n/a-- Mom/Sister s with hx of Pre-Eclamp kelli:denies -- History of Genital HSV:denies -- Genetic Questions in OB Episode Done-- Accepts [facility]. Discussed logging on to the [facility] portal to find Gender Results POC-- NOB labs done today-- Accepts [facility] -- RTC 4 weeks Guide: Given and reviewed. Toxoplasmo sis precaution s reviewed. Reviewed office visit schedule during . Reviewed Quickening and normal FHTs. Carrier de tection, molecular genetics 5074356 Z14.8 [id number] WOLF GUADARRAMA NP [address] [address] 08/19/2024 16:40:21 08/21/2024 12:29:30 Normal 26129868 Z34.90 Pt is here for a KEYONNA [...] for pre-term labor. Gestation period, 15 weeks 2814268 Z3A.15 declines AFP will offer again at next appt. [id number] WOLF GUADARRAMA NP [facility] [address] [place] [address] 09/07/2024 15:50:39 09/07/2024 16:37:32 Normal 38339631 Z34.92 Pt is here for a KEYONNA [...] for pre-term labor. Gestation period, 18 weeks 23101558 Z3A.18 [id number] WOLF GUADARRAMAJENNIFER [address] [address] 09/30/2024 15:30:33 10/03/2024 14:06:30 Normal 15819593 Z34.90 Pt is here for a KEYONNA [...] for pre-term labor. Gestation period, 21 weeks 96731028 Z3A.21 Backache 192191484 O99.8 91 M54.9 [id number] WOLFSTEPHENIE GUADARRAMA NP [address] [address] 10/21/2024 14:10:22 10/21/2024 14:50:59 Gestation period, 24 weeks 350756527 Z3A.24 Normal 9760970 2 Z34.92 Pt is here for a KEYONNA appointmen t. She is taking vitamins. She has no complaints or questions. Reports feeling movement. Denies vaginal bleeding, abdominal cramps, N/V, contractio ns, or LOF. Denies headache, vision changes, swelling of hands or face, and epigastric pain. Discussed PTL and precaution s given. There are no identifiab le risk factors for pre-term labor. [id number] WOLF GUADARRAMA NP [facility] [address] [place] [address] 11/18/2024 14:41:31 11/19/2024 15:28:39 Normal 63869974 Z34.92 Pt is here for a KEYONNA [...] for pre-term labor. Gestation period, 28 weeks 87006385 Z3A.28 screening 2437 11939 Z36.89 [id number] WOLF GUADARRAMA NP [facility] [address] [place] [address] 11/26/2024 16:40:34 11/29/2024 05:26:51 Gestational diabetes mellitus complicating 3429550569 9106 O24.419 *GDM education completed. Discussed diet- [...] for pre-term labor. Gestation period, 29 weeks 48763809 Z3A.29 [id number] WOLF GUADARRAMA NP [facility] [address] [place] [address] 12/02/2024 14:30:01 12/04/2024 14:24:45 High risk 51299806 O09.90 Pt is here for a KEYONNA [...] for pre-term labor. Gestation period, 30 weeks 71466446 Z3A.30 Gestationa l diabetes mellitus 38505060 O24.410 Health Concerns Section Related Observation LastModified by Organization Detai ls LastModified Time None Recorded Concern Status LastModified by Organization Details LastModified Time None Recorded Advance Directives Directive None Recorded Payers Encounter Date Sequence Insurance Name Policy Number Policy Rivers Covered Member ID Rivers Member ID Guarantor Name 09/30/2024 1 [facility] (MEDICAID HMO) [id number] Lani Ho [id number] Lani Ho 10/21/2024 1 [facility] (MEDICAID HMO) [id number] Lani Ho [id number] Lani Ho 11/26/2024 1 [place] Lani Ho [id number] Lani Ho 12/02/2024 1 [place] Lani Ho [id number] Lani Ho Notes Date Note Type Note Provider Name and Address Organization Details Recorded Time 09/30/2024 text/html Lani is 21.3 weeks. She is here for a routine visit. She reports normal movement and she is taking vitamins. Anatomy scan was done at [facility]. WOLF GUADARRAMA NP [address] [facility], [place], [address], [facility] IV 10/01/2024 10:29:53 10/21/2024 text/html Patient is [...] or visual disturbances. WOLF GUADARRAMA NP [address] [place], [address], [facility] [employer] IV 10/21/2024 14:38:09 11/18/2024 text/html Patient is [...] @ 1:48 p.m. WOLF GUADARRAMA NP [address] [place], [address], [facility] IV 11/18/2024 18:56:16 11/26/2024 text/html Patient is [...] has no concerns. WOLF GUADARRAMA NP [address] [place], [address], [facility] IV 11/26/2024 17:58:04 12/02/2024 text/html Patient is [...] Pt. has no concerns. WOLF GUADARRAMA NP [address] [facility], [place], [address], [facility] 12/03/2024 14:55:08 OBGyn Episode Ob Episode Information Episode Created Date Number of Fetuses Patient Bloodtype Patient rh Status Prepregnancy Weight lbs Domestic Partner Domestic Partner Phone Father Name Peanut Farmer Status 07/22/20 24 1 B Negative OPEN Fetus Data First Name Last Name Admitted to NICU Weight (g) Sex Living Outcome Pediatric Complications Fetus ID Race Codes Race Delivery Type [id number] Problems Problem Notes Problem Name Start Date End Date Resolution Snomed Code Not e RhD negative 11/18/2024 729713359 RH (D) NIPT detected will need Rhogam PP Large for gestation age fetus 11/18/20241995957035990 EFW 98%tile on 10/22 Echogenic bowel 11/19-94%tile Rubella non-immune 11/18/2024 608873770 Gestational diabetes mellitus 11/26/2024 14842402 Abnormal finding on screening of mother 11/18/2024 345674122 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) Taye Calculation [...] in lbs Pre/Post Dialysis Refused With clothes 164.026033986989 BP Diastolic BP Location Tested BP Systolic [...] in lbs Pre/Post Dialysis Refused With clothes 164.822059894858 BP Diastolic BP Location Tested BP Systolic [...] in lbs Pre/Post Dialysis Refused With clothes 165.481914149117 BP Diastolic BP Location Tested BP Systolic [...] Type Weight in lbs Pre/Post Dialysis Refused 171.122339394007 BP Diastolic BP Location Tested BP Systolic [...] in lbs Pre/Post Dialysis Refused With clothes 175.531601575056 BP Diastolic BP Location Tested BP Systolic [...] Type Weight in lbs Pre/Post Dialysis Refused 178.016438281318 BP Diastolic BP Location Tested BP Systolic [...] Type Weight in lbs Pre/Post Dialysis Refused 180.541736696890 BP Diastolic BP Location Tested BP Systolic [...] Type Weight in lbs Pre/Post Dialysis Refused 177.037246852502 BP Diastolic BP Location Tested BP Systolic [...]
--- OUTSIDE RECORDS SUMMARY | 2025-01-21 17:56 | XMS_ITS ---
Author Organization Unknown Address [address] [place] [phone] Phone Care Team Providers Care Camera Repairer Name Role Phone JOSUE FULTON Attending Unavailable [...] MICR O - Collect Date/Time: 02/20/2023 18:44 [facility] ID: [id number] [address] [place] [address], [phone] LOINC: Test Value Unit Reference Range Code [...] TEST - Colle ct Date/Time: 02/20/2023 18:43 [facility] ID: [id number] [address] [place] [address], [phone] LOINC: Test Value Unit Reference Range Code Code System Flag TEST PERFORMED URINE PREG (URINE) NEGATIVE LOT#: [id number] EXP DATE: 2023-12-11 QC: ACCEPTABLE Social History Type Status Start Date End Date Code Code Syst em Smoking History Never smoker (Never Smoked) 876553557 SNOMED CT Sex Female Sexual Orientation Straight or Heterosexual 88399904 SNOMED CT Gender Identity Female [id number] [address] Vital Signs Vital Sign Value Unit [place] Value [place] Unit Date/Time Recent/Initial? Code Code System Body Mass Index 24.50 kg/m2 02/20/2023 18:36 Initial 03083 -5 LOINC Body Mass Index Percentile 77 % 02/20/2023 18:36 Initial 28871 -9 LOINC Systolic Blood Pressure 112 mm[Hg] 02/20/2023 18:36 Initial 8480- 6 LOINC Diastolic Blood Pressure 70 mm[Hg] 02/20/2023 18:36 Initial 8462- 4 [facility] Body Surface Area 1.85 m2 02/20/2023 18:36 Initial 3140- 1 LOINC Height 171.450 0 cm 67.50 in 02/20/2023 18:36 Initial 8302- 2 INC O2 Saturation 98 % 2022 18:36 Initial 97092 -5 [facility] Pulse 91.0 /min 02/20/2023 18:36 Initial 8867- 4 [facility] Temperature 37.2 Antonella 98.9 F 02/21/20 18:36 Initial 8310- 5 [facility] Weight 72.03 kg 158.80 lbs 02/20/2023 18:36 Initial 22755 -7 [facility] Medications Medication Start Date End Date Route Frequency Dose Code Code System Medication Instructions Home Meds Medrol Dosepak 4MG Oral Tablet 12/25/2022 02/20/2023 By Mouth As Directed 1 PACK 219651 RxNorm 1 PACK By Mouth As Directed Methocarbamol 750MG Oral Tablet 12/25/2022 03/12/2023 By Mouth As needed every 8 hr 579713 RxNorm 1-2 TABLET By Mouth As needed every 8 hr [place]-28 30 MCG-0.15 MG; NA Oral Tablet 12/25/2022 03/12/2023 By Mouth Daily 1 TABLET 016073 RxNorm 1 TABLET By Mouth Daily Macrobid 100MG Oral Capsule 02/20/2023 03/12/2023 By mouth Twice a day 1 TABLET 208036 RxNorm 1 TABLET By mouth Twice a day X 7 DAYS Pyridium 100MG Oral Tablet 02/20/2023 03/12/2023 By mouth As needed every 8 hr 1 TABLET 4255266 RxNorm 1 TABLET By mouth As needed every 8 hr for urinary pain ZyrTEC Allergy 10MG Oral Capsule, Liquid Filled 03/12/2023 Unknown By Mouth Daily 1 CAPSULE 8020005 RxNorm 1 CAPSULE By Mouth Daily Fluticasone 0.05MG/1Actuati on Nasal [place] 03/12/2023 Unknown Nasal Daily 1 Sprays 0500096 RxNorm 1 Spr ays Nasal Daily Azithromycin 500MG Oral Tablet 06/04/2024 Unknown By Mouth x1 NOW 2 TABLET 223571 RxNorm 2 TABLET By Mouth x1 NOW [...] Status Code Code System SEASONAL ALLERGY active 292088997 SNO MED-CT FAMILY PLANNING 06/20/2020 active 779516228 SNO MED-CT BITE OF INSECT active 933735745 SNOME D-CT ES OF VAGINA 08/07/2022 active 89072151 S NOMED-CT MENORRHAGIA active 158600858 SNOMED-C T PAINFUL NECK active 24344734 SNOMED- CT ADHD OF CHILDHOOD 07/22/2019 resolved 332623908 S NOMED-CT SEASONAL NASAL ALLERGY 07/22/2019 resolved 715237 001 SNOMED-CT HISTORY OF CHICKENPOX 07/22/2019 resolved 8958339 08 SNOMED-CT Allergies and Adverse Reactions Allergy Substance Reaction Severity Start Date Concern Status Co de Code System Active seasonal allergies Active No Known Drug Allergies Active 614059699 SNOMED-CT No Known Drug Allergies Active 061092928 SNOMED-CT Plan of Treatment Description Due Date Details Instructions DEPRESSION SCREENING DUE 06/20/2021 Future Order Description Future Order Date Futu re Order Loinc: CULTURE URINE 02/20/2023 LOINC: 630-4 TRICHOMONAS VAGINALIS FEMALE RNA QUAL 3 LOINC: 90171-8 GC/CHLAMYDIA PCR [place] 02/20/2023 LOINC: 448 06-8 CULTURE YEAST, WITH IDENTIFICATION 02/20/2023 LOINC: 16793-5 BACTERIAL VAGINOSIS RAPID TEST 02/20/2023 LOINC: 6410-5 Encounters Encounter Diagnosis Start Date Code Code Sys tem Urinary tract infectious disease 02/20/2023 51346968 SNOMED-CT Personal Care Team Section Performer Name Performer Role Active Date Inactive Da te Progress Notes [facility] 02/20/2023 19:27 Admission Date/Time: 02/20/2023 18:07 Convenient [...] up. This examination was transcribed using the [employer] voice recognition system without human broker agricultural produce. In an effort to expedite patient care, this report has not been adjusted for typographical, or medical or syntax by a trained medical health researcher. Allergy Table Allergen Type Reaction seasonal allergies [...] NEGATIVE 02/20/2023 18:38 02/20/2023 18:43 final LOT#: [id number] 02/20/2023 18:38 02/20/2023 18:43 final EXP DATE: 2023-12-11 02/20/2023 18:38 02/20/2023 18:43 final QC: ACCEPTABLE 02/20/2023 18:38 02/20/2023 18:43 final Meds Given This Visit: Ordered & Completed Meds Table: No Current Medications Available Discharge Med List: Discharge Medications Medication Special Instructions Start Date Prescribing MD Pyridium 100MG Oral Tablet 1 TABLET By mouth As needed every 8 hr for urinary pain 02/20/2023 JOSUE FULTON Macrobid 100MG Oral Capsule 1 TABLET By mouth Twice a day X 7 DAYS 02/20/2023 JOSUE FULTON [place]-28 30 MCG-0.15 MG; NA Oral Tablet 1 TABLET By Mouth Daily 12/25/2022 Blanco Gallego Methocarbamol 750MG Oral Tablet 1-2 TABLET By Mouth As needed every 8 hr 12/25/2022 Blanco Gallego
--- OUTSIDE RECORDS SUMMARY | 2025-01-21 17:56 | XMS_ITS ---
Author Organization Unknown Address [address] [place], [place] [phone] Phone Care Team Providers Care County Or City Auditor Name Role Phone mattyKlausSHERMAN Machado Social History Type Status Start Date End Date Code Code Syst em Smoking History Never smoker (Never Smoked) 714394226 SNOMED CT Sex Female Sexual Orientation Straight or Heterosexual 84809248 SNOMED CT Gender Identity Female [id number] [address] Medications Medication Start Date End Date Route Frequency Dose Code Code System Medication Instructions Home Meds ZyrTEC Allergy 10MG Oral Capsule, Liquid Filled 03/12/2023 Unknown By Mouth Daily 1 CAPSULE 6216365 RxNorm 1 CAPSULE By Mouth Daily Fluticasone 0.05MG/1Actuatio n Nasal [place] 03/12/2023 Unknown Nasal Daily 1 Sprays 8854050 RxNorm 1 Spra ys Nasal Daily Azithromycin 500MG Oral Tablet 06/04/2024 Unknown By Mouth x1 NOW 2 TABLET 139174 RxNorm 2 TABLET By Mouth x1 NOW [...] Status Code Code System SEASONAL ALLERGY active 049223632 SNO MED-CT FAMILY PLANNING 06/20/2020 active 126797519 SNO MED-CT BITE OF INSECT active 361206505 SNOME D-CT ES OF VAGINA 08/07/2022 active 01590963 S NOMED-CT MENORRHAGIA active 380782444 SNOMED-C T PAINFUL NECK active 47817914 SNOMED- CT ADHD OF CHILDHOOD 07/22/2019 resolved 095550917 S NOMED-CT SEASONAL NASAL ALLERGY 07/22/2019 resolved 451527 001 SNOMED-CT HISTORY OF CHICKENPOX 07/22/2019 resolved 6162402 08 SNOMED-CT Allergies and Adverse Reactions Allergy Substance Reaction Severity Start Date Concern Status Co de Code System Active seasonal allergies Active No Known Drug Allergies Active 033417884 SNOMED-CT No Known Drug Allergies Active 909160921 SNOMED-CT Plan of Treatment Description Due Date Details Instructions DEPRESSION SCREENING DUE 06/20/2021 Encounters Encounter Diagnosis Start Date Code Code Sys tem Dysuria 06/03/2024 50666598 SNOMED-CT Personal Care Team Section Performer Name Performer Role Active Date Inactive Da te
--- OUTSIDE RECORDS SUMMARY | 2025-01-21 17:57 | XMS_ITS | Patient Health Summary ---
Author Organization [facility] Address [address] [place] [address] Care Team Providers Care Team Primary Care Physician Name Role Phone Faustino Matta MD Primary Care Provider [phone] Note from [facility],non-owned Affiliates and Associated Physician Practices is amultiple site organization consisting of ambulatory clinics and hospital sitesin [place], [place] and [place]. This disclosure is being madepursuant to the Care Everywhere program and may not contain all information available regarding this patient. Last updated 18.[facility] Allergies No known active allergies [...] CYTOMEGALOVIRUS AB IGG AVIDITY (11/24/2024 2:44 PM WATER POLLUTION CONTROL TECHNICIAN) [facility] Cytomegalovirus Antibody IgG Avidity Index 0.90 [...] analytical performance characteristics have been determined by [employer]. It has not been cleared or approved by FDA. This assay has been validated pursuant to the CLIA regulations and is used for clinical purposes. For additional information, please refer to http://education.[employer]/faq/ICP187 (This link is being provided for informational/ educational purposes only.) Test Performed at: [facility] [address] [place] [address] KWAKU SUMMERS MD,PHD,STARR 11/24/2024 2:44 PM WATER POLLUTION CONTROL TECHNICIAN 11/24/2024 2:45 PM WATER POLLUTION CONTROL TECHNICIAN Jennifer Paul MD LAB - SEROLOGY [facility] [address] [place] [address] * SONOGRAM - COMPLETE (11/19/2024 1:11 PM WATER POLLUTION CONTROL TECHNICIAN) Only the most recent of4 resultswithin the [...] 3 lb 8 oz EFW by Hadlock (NFL-EM-XM-FL) appropriate Growth Overview Exam date [place] BPD [...] redraw of CMV Avidity Coding ====== Procedures 10254: US Preg Uterus Follow Up [place] PACS Anatomical Region Laterality Modality Other 11/19/2024 1:11 PM WATER POLLUTION CONTROL TECHNICIAN Jonny Cabrera DO [facility] ORDERABLES * (ABNORMAL) CYTOMEGALOVIRUS ANTIBODY IGG BLOOD (11/10/2024 1:50 PM WATER POLLUTION CONTROL TECHNICIAN) Cytomegalovirus Antibody IgG >10.00(H) U/mL [facility] Comment: U/mL Interpretation ----- <0.60 Negative 0.60-0.69 Equivocal > or = 0.70 Positive A positive result indicates that the patient has antibody to CMV. It does not differentiate between an active or past infection. Test Performed at: [facility] [address] [place] [address] PINEDA TAM MD 11/10/2024 1:50 PM WATER POLLUTION CONTROL TECHNICIAN 11/10/2024 1:53 PM WATER POLLUTION CONTROL TECHNICIAN Britany Garcia APRN-ARCHITECTURE MANAGER LAB - CHEMI STRY ORDERABLES [facility] [address] [place] [address] Care Teams Team Primary Care Physician Relationship Specialty Start Date End Date Faustino Matta MD [address] [place] [address] PCP - General Pediatrics 08/05/12
--- OUTSIDE RECORDS SUMMARY | 2025-01-21 17:57 | XMS_ITS ---
Author Organization Unknown Address [address] [place] [phone] Phone Care Team Providers Care Panama Hat Smearer Name Role Phone VIRAL Brody Attending Unavailable [...] MICR O - Collect Date/Time: 06/03/2024 15:21 [facility] ID: [id number] [address] [place] [address], [phone] LOINC: Test Value Unit Reference Range Code [...] em Smoking History Never smoker (Never Smoked) 373105031 SNOMED CT Sex Female Sexual Orientation Straight or Heterosexual 06616353 SNOMED CT Gender Identity Female 54500727888085 [address] Vital Signs Vital Sign Value Unit [place] Value [place] Unit Date/Time Recent/Initial? Code Code System Body Mass Index 25.85 kg/m2 06/03/2024 14:31 Initial 55061 -5 [facility] Body Mass Index Percentile 82 % 06/03/2024 14:31 Initial 17700 -9 [facility] Systolic Blood Pressure 118 mm[Hg] 06/03/2024 15:46 Most Recent 8480- 6 LOINC Diastolic Blood Pressure 82 mm[Hg] 06/03/2024 15:46 Most Recent 8462- 4 [facility] Systolic Blood Pressure 136 mm[Hg] 06/03/2024 14:31 Initial 8480- 6 [facility] Diastolic Blood Pressure 95 mm[Hg] 06/03/2024 14:31 Initial 8462- 4 [facility] Body Surface Area 1.92 m2 06/03/2024 14:31 Initial 3140- 1 [facility] Height 172.720 0 cm 68.00 in 06/03/2024 14:31 Initial 8302- 2 [facility] O2 Saturation 100 % 2023 14:31 Initial 40817 -5 [facility] Pulse 93.0 /min 06/03/2024 14:31 Initial 8867- 4 LOINC Temperature 36.7 Antonella 98.0 F 06/03/20 14:31 Initial 8310- 5 [facility] Weight 77.11 kg 170.00 lbs 06/03/2024 14:31 Initial 17222 -7 [facility] Medications Medication Start Date End Date Route Frequency Dose Code Code System Medication Instructions Home Meds ZyrTEC Allergy 10MG Oral Capsule, Liquid Filled 03/12/2023 Unknown By Mouth Daily 1 CAPSULE 9723181 RxNorm 1 CAPSULE By Mouth Daily Fluticasone 0.05MG/1Actuatio n Nasal [place] 03/12/2023 Unknown Nasal Daily 1 Sprays 5463613 RxNorm 1 Spra ys Nasal Daily Azithromycin 500MG Oral Tablet 06/04/2024 Unknown By Mouth x1 NOW 2 TABLET 843765 RxNorm 2 TABLET By Mouth x1 NOW [...] sex practices. 3. -Keep follow up with [facility] for next week. -Given handouts for [...] up. This examination was transcribed using the [employer] voice recognition system without a human boiler maker. To expedite patient care, this report has not been adjusted for typographical, or medical, or syntax by a trained medical device sales. Hospital Discharge Instructions Should you have any questions prior to discharge, please contact a member of your healthcare team. If you have left the hospital and have any questions, please contact your primary care physician. Reason For Referral No Data Found Problems Problem Start Date Resolved Date Status Code Code System SEASONAL ALLERGY active 663397191 SNO MED-CT FAMILY PLANNING 06/20/2020 active 675056190 SNO MED-CT BITE OF INSECT active 033011292 SNOME D-CT ES OF VAGINA 08/07/2022 active 92791561 S NOMED-CT MENORRHAGIA active 216138565 SNOMED-C T PAINFUL NECK active 86318000 SNOMED- CT ADHD OF CHILDHOOD 07/22/2019 resolved 493426368 S NOMED-CT SEASONAL NASAL ALLERGY 07/22/2019 resolved 174394 001 SNOMED-CT HISTORY OF CHICKENPOX 07/22/2019 resolved 0003202 08 SNOMED-CT Allergies and Adverse Reactions Allergy Substance Reaction Severity Start Date Concern Status Co de Code System Active seasonal allergies Active No Known Drug Allergies Active 085793494 SNOMED-CT No Known Drug Allergies Active 179758088 SNOMED-CT Plan of Treatment Description Due Date Details Instructions DEPRESSION SCREENING DUE 06/20/2021 Future Order Description Future Order Date Futu re Order Loinc: TRICHOMONAS VAGINALIS FEMALE RNA QUAL LOINC: 36687-9 GC PCR [facility] 06/03/2024 LOINC: 54925-8 CHLAMYDIA PCR [facility] 06/03/2024 LOINC: 42844- 5 BACTERIAL VAGINOSIS RAPID TEST 06/03/2024 LOINC: 6410-5 CULTURE YEAST, WITH IDENTIFICATION 06/03/2024 LOINC: 71010-1 Encounters Encounter Diagnosis Start Date Code Code Sys tem Acute vaginitis 06/03/2024 02460941 SNOMED-CT Personal Care Team Section Performer Name [...] April. She has an appointment scheduled with [facility] for an OBGYN next week. She denies [...] sex practices. 3. -Keep follow up with [facility] for next week. -Given handouts for [...] up. This examination was transcribed using the [employer] voice recognition system without a human boiler maker. To expedite patient care, this report has not been adjusted for typographical, or medical, or syntax by a trained medical device sales. Meds Given This Visit: Meds ordered and administered this visit: No Current Medications Available Discharge Med List: Discharge Medications Medication Special Instructions Start Date Prescribing Fluticasone 0.05MG/1Actuation Nasal [place] 1 Sprays Nasal Daily 03/12/2023 Blanco Gallego ZyrTEC Allergy 10MG Oral Capsule, Liquid Filled 1 CAPSULE By Mouth Daily 03/12/2023 Blanco Gallego
--- OUTSIDE RECORDS SUMMARY | 2025-01-21 17:57 | XMS_ITS ---
Author Organization Unknown Address [address] [place] [phone] Phone Care Team Providers Care Matcher Name Role Phone Blanco Gallego Attending Unavailable [...] ANTIGEN - Collec t Date/Time: 03/12/2023 14:51 [facility] ID: [id number] [address] [place], [place], [id number] LOINC: 6556-5 Test Value Unit Reference Range Code Code System Flag COVID RAPID ANTI NEGATIVE NORMAL: NEGATIVE LOT#: [id number] Exp Date: 12/07/2023 QC: ACCEPTABLE STREP A SCREEN - Collect Sha e/Time: 03/12/2023 14:50 [facility] ID: [id number] [address] [place], [place], [id number] LOINC: 6556-5 Test Value Unit Reference Range Code Code System Flag STREP SCREEN NEGATIVE NORMAL: NEGATIVE 6556-5 LOINC Lot#: [id number] Exp Date: 04/10/2024 QC STREP ACCEPTABLE Social History Type Status Start Date End Date Code Code Syst em Smoking History Never smoker (Never Smoked) 737147691 SNOMED CT Sex Female Sexual Orientation Straight or Heterosexual 73265991 SNOMED CT Gender Identity Female 70111731993305 [address] Vital Signs Vital Sign Value Unit [place] Value [place] Unit Date/Time Recent/Initial? Code Code System Body Mass Index 23.57 kg/m2 03/12/2023 14:40 Initial 82630 -5 [facility] Body Mass Index Percentile 71 % 03/12/2023 14:40 Initial 35321 -9 [facility] Systolic Blood Pressure 100 mm[Hg] 03/12/2023 14:40 Initial 8480- 6 LOINC Diastolic Blood Pressure 68 mm[Hg] 03/12/2023 14:40 Initial 8462- 4 [facility] Body Surface Area 1.84 m2 03/12/2023 14:40 Initial 3140- 1 LO[facility] Height 172.720 0 cm 68.00 in 03/12/2023 14:40 Initial 8302- 2 INC O2 Saturation 95 % 2022 14:40 Initial 45015 -5 LO[facility] Pulse 56.0 /min 03/12/2023 14:40 Initial 8867- 4 LOINC Respiration 16 /min 03/12/20 14:40 Initial 9279- 1 LOINC Temperature 37.5 Antonella 99.5 F 03/12/20 14:40 Initial 8310- 5 INC Weight 70.31 kg 155.00 lbs 03/12/2023 14:40 Initial 15514 -7 [facility] Medications Medication Start Date End Date Route Frequency Dose Code Code System Medication Instructions Home Meds Methocarbamol 750MG Oral Tablet 12/25/2022 03/12/2023 By Mouth As needed every 8 hr 320339 RxNorm 1-2 TABLET By Mouth As needed every 8 hr [place]-28 30 MCG-0.15 MG; NA Oral Tablet 12/25/2022 03/12/2023 By Mouth Daily 1 TABLET 643043 RxNorm 1 TABLET By Mouth Daily Macrobid 100MG Oral Capsule 02/20/2023 03/12/2023 By mouth Twice a day 1 TABLET 993572 RxNorm 1 TABLET By mouth Twice a day X 7 DAYS Pyridium 100MG Oral Tablet 02/20/2023 03/12/2023 By mouth As needed every 8 hr 1 TABLET 4930330 RxNorm 1 TABLET By mouth As needed every 8 hr for urinary pain ZyrTEC Allergy 10MG Oral Capsule, Liquid Filled 03/12/2023 Unknown By Mouth Daily 1 CAPSULE 9115781 RxNorm 1 CAPSULE By Mouth Daily Fluticasone 0.05MG/1Actuati on Nasal [place] 03/12/2023 Unknown Nasal Daily 1 Sprays 7573306 RxNorm 1 Spr ays Nasal Daily Azithromycin 500MG Oral Tablet 06/04/2024 Unknown By Mouth x1 NOW 2 TABLET 541809 RxNorm 2 TABLET By Mouth x1 NOW [...] Status Code Code System SEASONAL ALLERGY active 957280544 SNO MED-CT FAMILY PLANNING 06/20/2020 active 092170777 SNO MED-CT BITE OF INSECT active 411538347 SNOME D-CT ES OF VAGINA 08/07/2022 active 94452514 S NOMED-CT MENORRHAGIA active 855335543 SNOMED-C T PAINFUL NECK active 24600566 SNOMED- CT ADHD OF CHILDHOOD 07/22/2019 resolved 891806764 S NOMED-CT SEASONAL NASAL ALLERGY 07/22/2019 resolved 011454 001 SNOMED-CT HISTORY OF CHICKENPOX 07/22/2019 resolved 1076102 08 SNOMED-CT Allergies and Adverse Reactions Allergy Substance Reaction Severity Start Date Concern Status Co de Code System Active seasonal allergies Active No Known Drug Allergies Active 471720980 SNOMED-CT No Known Drug Allergies Active 277057796 SNOMED-CT Plan of Treatment Description Due Date Details Instructions DEPRESSION SCREENING DUE 06/20/2021 Encounters Encounter Diagnosis Start Date Code Code Sys tem Seasonal allergic rhinitis 03/12/2023 486589434 S NOMED-CT Personal Care Team Section Performer Name Performer Role Active Date Inactive Da te Progress Notes [facility] 03/12/2023 15:06 Admission Date/Time: 03/12/2023 11:24 SMITA [...] is an 17 yo female presents to [facility] today for sore throat and cough. Pt [...] records Referring and communicating with other health vp care management x Obtaining and/or reviewing separately obtained history Independent interpretation of results and communicating results to the patient/family/caregiver x Performing a medically appropriate examination/evaluation Care coordination (not reported separately) x Discharge instructions given to patient. Ordered & Completed Meds Table: No Current Medications Available Discharge Med List: Discharge Medications: No Discharge Medications Available [facility] 03/12/2023 15:20 Current Date/Time: 03/12/2023 15:03 Patient Name: NELA MANZANARES was seen at [facility] [phone] on Date of Service: 03/12/2023 . They may return to school on 03/13/2023 with No restrictions . .
--- OUTSIDE RECORDS SUMMARY | 2025-01-21 17:57 | XMS_ITS ---
Author Organization Unknown Address [address], [place] [phone] Phone Care Team Providers Care Fire Assistant Name Role Phone JOSUE FULTON EDMOND Attending Unavailable Results CULTURE YEAST, WITH IDENTIFI CATION - Collect Date/Time: 02/20/2023 18:42 [facility] ID: [id number] [address], [place], [address] LOINC: 5048-4 Test Value Unit Reference Range Code Code System Flag SOURCE: VAGINAL STATUS: FINAL ISOLATE 1: Margoth albicans A TRICHOMONAS VAGINALIS FEMALE RNA QUAL - Collect Date/Time: 02/20/2023 18:40 [facility] ID: [id number] [address], [place], [address] LOINC: 34737-3 Test Value Unit Reference Range Code Code System Flag TRICHOMONAS VAGINALISRNA, QL TMA NOT DETECTED NOT DETECTED GC/CHLAMYDIA PCR [facility] ct Date/Time: 02/20/2023 18:40 [facility] ID: [id number] [address], [place], [address] LOINC: 5048-4 Test Value Unit Reference Range Code Code System Flag GONORRHEA PCR NOT DETECTED NORMAL: NOT DETECTED CHLAMYDIA PCR NOT DETECTED NORMAL: NOT DETECTED BACTERIAL VAGINOSIS RAPID TE ST - Collect Date/Time: 02/20/2023 18:40 [facility] ID: [id number] [address], [place], [address] LOINC: 6410-5 Test Value Unit Reference Range Code Code System Flag BACTERIAL VAGINOSIS NEGATIVE NORMAL: NEGATIVE Social History Type Status Start Date End Date Code Code Syst em Smoking History Never smoker (Never Smoked) 548101554 SNOMED CT Sex Female Sexual Orientation Straight or Heterosexual 11604347 SNOMED CT Gender Identity Female [id number] Medications Medication Start Date End Date Route Frequency Dose Code Code System Medication Instructions Home Meds Methocarbamol 750MG Oral Tablet 12/25/2022 03/12/2023 By Mouth As needed every 8 hr 190079 RxNorm 1-2 TABLET By Mouth As needed every 8 hr [place]-28 30 MCG-0.15 MG; NA Oral Tablet 12/25/2022 03/12/2023 By Mouth Daily 1 TABLET 310926 RxNorm 1 TABLET By Mouth Daily Macrobid 100MG Oral Capsule 02/20/2023 03/12/2023 By mouth Twice a day 1 TABLET 025439 RxNorm 1 TABLET By mouth Twice a day X 7 DAYS Pyridium 100MG Oral Tablet 02/20/2023 03/12/2023 By mouth As needed every 8 hr 1 TABLET 4043813 RxNorm 1 TABLET By mouth As needed every 8 hr for urinary pain ZyrTEC Allergy 10MG Oral Capsule, Liquid Filled 03/12/2023 Unknown By Mouth Daily 1 CAPSULE 9527451 RxNorm 1 CAPSULE By Mouth Daily Fluticasone 0.05MG/1Actuati on Nasal [place] 03/12/2023 Unknown Nasal Daily 1 Sprays 8874005 RxNorm 1 Spr ays Nasal Daily Azithromycin 500MG Oral Tablet 06/04/2024 Unknown By Mouth x1 NOW 2 TABLET 815308 RxNorm 2 TABLET By Mouth x1 NOW [...] Status Code Code System SEASONAL ALLERGY active 482704607 SNO MED-CT FAMILY PLANNING 06/20/2020 active 105871626 SNO MED-CT BITE OF INSECT active 625836793 SNOME D-CT MARGOTH OF VAGINA 08/07/2022 active 15745210 S NOMED-CT MENORRHAGIA active 162267233 SNOMED-C T PAINFUL NECK active 37559512 SNOMED- CT ADHD OF CHILDHOOD 07/22/2019 resolved 867516592 S NOMED-CT SEASONAL NASAL ALLERGY 07/22/2019 resolved 042405 001 SNOMED-CT HISTORY OF CHICKENPOX 07/22/2019 resolved 4717141 08 SNOMED-CT Allergies and Adverse Reactions Allergy Substance Reaction Severity Start Date Concern Status Co de Code System Active seasonal allergies Active No Known Drug Allergies Active 064183521 SNOMED-CT No Known Drug Allergies Active 660303739 SNOMED-CT Plan of Treatment Description Due Date Details Instructions DEPRESSION SCREENING DUE 06/20/2021 Encounters Encounter Diagnosis Start Date Code Code Sys tem Dysuria 02/20/2023 89575888 SNOMED-CT Personal Care Team Section Performer Name Performer Role Active Date Inactive David mcclalum
--- OUTSIDE RECORDS SUMMARY | 2025-01-21 17:57 | XMS_ITS | Referral Summary ---
Author Organization [facility] Address [address] [place] [address] Care Team Providers Care Metal Fabricator Helper Name Role Phone Faustino Matta MD Primary Care Provider [phone] Source Comments [facility],non-owned Affiliates and Associated Physician Practices is amultiple site organization consisting of ambulatory clinics and hospital sitesin [place], [place], [place] and [place]. This disclosure is being madepursuant to the Care Everywhere program and may not contain all information available regarding this patient. Last updated 18.[facility] Encounters Date Type Department Care Team Description 12/15/2024 Telephone [facility] Maternal & Care [address] [place] [address] Akosua Burns Appointment 11/24/2024 Orders Only [facility] - ROLL PRESS OPERATOR [address] [place] [phone] Jennifer Paul MD 11/19/2024 1:00 PM QUARRYMAN - 11/19/2024 11:59 PM QUARRYMAN Hospital Encounter [facility] Maternal & Care [address] [place] [address] Tiff Arriaza MD Discharge Disposition: Home or Self Care 11/03/2024 Orders Only [facility] Maternal & Care [address] [place] [address] Britany Garcia, PIT BOSS-CABLE SPLICER HELPER Abnormal genetic test in ; Abnormal ultrasound 11/02/2024 Orders Only [facility] Maternal & Care [facility] [place] [address] Shania Mcintosh RN 11/02/2024 Telephone [facility] Maternal & Care [address] [place] [address] Britany Garcia, PIT BOSS-CABLE SPLICER HELPER LABS ONLY 10/26/2024 Telephone [facility] Maternal & Care [address] [place] [address] Akosua Burns Appointment from Last 3 Months [...] CYTOMEGALOVIRUS AB IGG AVIDITY 11/24/2024 2:44 PM QUARRYMAN SONOGRAM - COMPLETE Routine 11/19/2024 1 :11 PM QUARRYMAN Encounter for ultrasound (HCC) Rh negative, antepartum (HCC) Rubella non-immune status, antepartum (HCC) Primigravida, antepartum ([facility]) 28 weeks gestation of ([facility]) 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 It has not been cleared or approved by FDA. This assay has been validated pursuant to the CLIA regulations and is used for clinical purposes. 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 [...] 3 lb 8 oz EFW by Hadlock ([id number]) appropriate Growth Overview Exam date [place] BPD [...] redraw of CMV Avidity Coding ====== Procedures 16887: US Preg Uterus Follow Up [facility] PACS Anatomical Region Laterality Modality Other 11/19/2024 1:11 PM QUARRYMAN Jonny Ruizcherie [facility] ORDERABLES * (ABNORMAL) CYTOMEGALOVIRUS ANTIBODY IGG BLOOD (11/10/2024 1:50 PM QUARRYMAN) Cytomegalovirus Antibody IgG >10.00(H) U/mL [facility] Comment: U/mL Interpretation ----- <0.60 Negative 0.60-0.69 Equivocal > or = 0.70 Positive A positive result indicates that the patient has antibody to CMV. It does not differentiate between an active or past infection. Test Performed at: [facility] [address] [place] [address] PINEDA TAM MD 11/10/2024 1:50 PM QUARRYMAN 11/10/2024 1:53 PM QUARRYMAN Britany Garcia PIT BOSS-CABLE SPLICER HELPER LAB - CHEMI STRY ORDERABLES [facility] [address] [place] [address] from Last 3 Months Care Teams Metal Fabricator Helper Relationship Specialty Start Date End Date Faustino Matta MD [address] [address] PCP - General Pediatrics 08/05/12
--- OUTSIDE RECORDS SUMMARY | 2025-01-21 17:57 | XMS_ITS ---
Author Organization Unknown Address [address] [place] [phone] Phone Care Team Providers Care Transport Tank Technician Name Role Phone Blanco Gallego Attending Unavailable [...] em Smoking History Never smoker (Never Smoked) 915415138 SNOMED CT Sex Female Sexual Orientation Straight or Heterosexual 86832621 SNOMED CT Gender Identity Female [id number] [address] Medications Medication Start Date End Date Route Frequency Dose Code Code System Medication Instructions Home Meds Medrol Dosepak 4MG Oral Tablet 12/25/2022 02/20/2023 By Mouth As Directed 1 PACK 091475 RxNorm 1 PACK By Mouth As Directed Methocarbamol 750MG Oral Tablet 12/25/2022 03/12/2023 By Mouth As needed every 8 hr 151773 RxNorm 1-2 TABLET By Mouth As needed every 8 hr [place]-28 30 MCG-0.15 MG; NA Oral Tablet 12/25/2022 03/12/2023 By Mouth Daily 1 TABLET 469160 RxNorm 1 TABLET By Mouth Daily Macrobid 100MG Oral Capsule 02/20/2023 03/12/2023 By mouth Twice a day 1 TABLET 290244 RxNorm 1 TABLET By mouth Twice a day X 7 DAYS Pyridium 100MG Oral Tablet 02/20/2023 03/12/2023 By mouth As needed every 8 hr 1 TABLET 3400949 RxNorm 1 TABLET By mouth As needed every 8 hr for urinary pain ZyrTEC Allergy 10MG Oral Capsule, Liquid Filled 03/12/2023 Unknown By Mouth Daily 1 CAPSULE 9379440 RxNorm 1 CAPSULE By Mouth Daily Fluticasone 0.05MG/1Actuati on Nasal [place] 03/12/2023 Unknown Nasal Daily 1 Sprays 2953692 RxNorm 1 Spr ays Nasal Daily Azithromycin 500MG Oral Tablet 06/04/2024 Unknown By Mouth x1 NOW 2 TABLET 311440 RxNorm 2 TABLET By Mouth x1 NOW [...] Status Code Code System SEASONAL ALLERGY active 805485428 SNO MED-CT FAMILY PLANNING 06/20/2020 active 081119389 SNO MED-CT BITE OF INSECT active 625206833 SNOME D-CT ES OF VAGINA 08/07/2022 active 48539034 S NOMED-CT MENORRHAGIA active 318579215 SNOMED-C T PAINFUL NECK active 97549833 SNOMED- CT ADHD OF CHILDHOOD 07/22/2019 resolved 596428146 S NOMED-CT SEASONAL NASAL ALLERGY 07/22/2019 resolved 867732 001 SNOMED-CT HISTORY OF CHICKENPOX 07/22/2019 resolved 3552205 08 SNOMED-CT Allergies and Adverse Reactions Allergy Substance Reaction Severity Start Date Concern Status Co de Code System Active seasonal allergies Active No Known Drug Allergies Active 304933536 SNOMED-CT No Known Drug Allergies Active 651403398 SNOMED-CT Plan of Treatment Description Due Date Details Instructions DEPRESSION SCREENING DUE 06/20/2021 Personal Care Team Section Performer Name Performer Role Active Date Inactive David mccallum
--- OUTSIDE RECORDS SUMMARY | 2025-01-21 17:57 | XMS_ITS ---
Author Organization Unknown Address [address], [place] [phone] Phone Care Team Providers Care Vocational Examiner Name Role Phone Ana Joseph Attending Unavailable Results BACTERIAL VAGINOSIS RAPID TE ST - Collect Date/Time: 07/31/2022 17:20 [facility] ID: [id number] [address] [place], [place], [address] LOINC: 6410-5 Test Value Unit Reference Range Code Code System Flag BACTERIAL VAGINOSIS NEGATIVE NORMAL: NEGATIVE CULTURE YEAST, WITH IDENTIFI CATION - Collect Date/Time: 07/31/2022 17:19 [facility] ID: [id number] [address] [place], [place], [address] LOINC: 5048-4 Test Value Unit Reference Range Code Code System Flag SOURCE: VAGINAL STATUS: FINAL ISOLATE 1: Margoth albicans A CULTURE: Culture in progress TRICHOMONAS VAGINALIS FEMALE RNA QUAL - Collect Date/Time: 07/31/2022 17:19 [facility] ID: [id number] [address] [place], [place], [address] LOINC: 90939-6 Test Value Unit Reference Range Code Code System Flag TRICHOMONAS VAGINALISRNA, QL TMA NOT DETECTED NOT DETECTED CHLAMYDIA/GC URINE RNA, TMA APTIMA - Collect Date/Time: 07/31/2022 17:19 [facility] ID: [id number] [address] [place], [place], [address] LOINC: 5048-4 Test Value Unit Reference Range Code Code System Flag CHLAMYDIA TRACHOMATISRNA, TMA, UROGENITAL NOT DETECTED NOT DETECTED NEISSERIA GONORRHOEAERNA, TMA, UROGENITAL NOT DETECTED NOT DETECTED Social History Type Status Start Date End Date Code Code Syst em Smoking History Never smoker (Never Smoked) 034867062 SNOMED CT Sex Female Sexual Orientation Straight or Heterosexual 81813186 SNOMED CT Gender Identity Female [id number] [address] Medications Medication Start Date End Date Route Frequency Dose Code Code System Medication Instructions Home Meds Anel-28 30MCG-0.15MG-NA Oral Tablet 06/07/2022 09/12/2022 By Mouth Daily 1 TABLET 685510 RxNorm 1 TABLET By Mouth Daily Diflucan [...] 02/20/2023 By Mouth As Directed 1 PACK 639611 RxNorm 1 PACK By Mouth As Directed Methocarbamol 750MG Oral Tablet 12/25/2022 03/12/2023 By Mouth As needed every 8 hr 822063 RxNorm 1-2 TABLET By Mouth As needed every 8 hr [place]-28 30 MCG-0.15 MG; NA Oral Tablet 12/25/2022 03/12/2023 By Mouth Daily 1 TABLET 176161 RxNorm 1 TABLET By Mouth Daily Macrobid 100MG Oral Capsule 02/20/2023 03/12/2023 By mouth Twice a day 1 TABLET 481029 RxNorm 1 TABLET By mouth Twice a day X 7 DAYS Pyridium 100MG Oral Tablet 02/20/2023 03/12/2023 By mouth As needed every 8 hr 1 TABLET 9412433 RxNorm 1 TABLET By mouth As needed every 8 hr for urinary pain ZyrTEC Allergy 10MG Oral Capsule, Liquid Filled 03/12/2023 Unknown By Mouth Daily 1 CAPSULE 9272808 RxNorm 1 CAPSULE By Mouth Daily Fluticasone 0.05MG/1Actuatio n Nasal [place] 03/12/2023 Unknown Nasal Daily 1 Sprays 3201176 RxNorm 1 Spra ys Nasal Daily Azithromycin 500MG Oral Tablet 06/04/2024 Unknown By Mouth x1 NOW 2 TABLET 206364 RxNorm 2 TABLET By Mouth x1 NOW [...] Status Code Code System SEASONAL ALLERGY active 083005930 SNO MED-CT FAMILY PLANNING 06/20/2020 active 026275861 SNO MED-CT BITE OF INSECT active 889481044 SNOME D-CT MARGOTH OF VAGINA 08/07/2022 active 81024403 S NOMED-CT MENORRHAGIA active 707969860 SNOMED-C T PAINFUL NECK active 53099083 SNOMED- CT ADHD OF CHILDHOOD 07/22/2019 resolved 181480912 S NOMED-CT SEASONAL NASAL ALLERGY 07/22/2019 resolved 402339 001 SNOMED-CT HISTORY OF CHICKENPOX 07/22/2019 resolved 1806879 08 SNOMED-CT Allergies and Adverse Reactions Allergy Substance Reaction Severity Start Date Concern Status Co de Code System Active seasonal allergies Active No Known Drug Allergies Active 974798205 SNOMED-CT No Known Drug Allergies Active 020496148 SNOMED-CT Plan of Treatment Description Due Date Details Instructions DEPRESSION SCREENING DUE 06/20/2021 Encounters Encounter Diagnosis Start Date Code Code Sys tem Noninflammatory disorder of the vagina 07/31/2022 22 407677 SNOMED-CT Personal Care Team Section Performer Name Performer Role Active Date Inactive Da xena
--- OUTSIDE RECORDS SUMMARY | 2025-01-21 17:57 | XMS_ITS | Clinical Summary ---
Author Organization [facility] Address [address] [facility] [place] [address] Care Team Providers Care Football Scout Name Role Phone Faustino Matta MD Primary Care Provider [phone] Source Comments [facility],non-owned Affiliates and Associated Physician Practices is amultiple site organization consisting of ambulatory clinics and hospital sitesin [place], [place], [place] and [place]. This disclosure is being madepursuant to the Care Everywhere program and may not contain all information available regarding this patient. Last updated 18.[facility] Allergies No known active allergies Medications * [...] Type Department Care Team Description 12/15/2024 Telephone [facility] Maternal & Care [address] [place] [address] Akosua Burns Appointment 11/24/2024 Orders Only [facility] - ZONE MAINTENANCE TECHNICIAN [address] [place] [address] Jennifer Paul MD 11/19/2024 1:00 PM MANAGER PATHOLOGY - 11/19/2024 11:59 PM MANAGER PATHOLOGY Hospital Encounter [facility] Maternal & Care [address] [place] [address] Tiff Arriaza MD Discharge Disposition: Home or Self Care 11/03/2024 Orders Only [facility] Maternal & Care [address] [place] [address] Britany Garcia, DIPLOMA MEDICAL ASSISTANT-DATABASE ADMIN Abnormal genetic test in ; Abnormal ultrasound 11/02/2024 Orders Only [facility] Maternal & Care [address] [place] [address] Shania Mcintosh RN 11/02/2024 Telephone [facility] Maternal & Care [address] [place] [address] Britany Garcia, DIPLOMA MEDICAL ASSISTANT-DATABASE ADMIN LABS ONLY 10/26/2024 Telephone [facility] Maternal & Care [address] [place] [address] Akosua Burns Appointment from Last 3 Months [...] CYTOMEGALOVIRUS AB IGG AVIDITY 11/24/2024 2:44 PM MANAGER PATHOLOGY SONOGRAM - COMPLETE Routine 11/19/2024 1 :11 PM MANAGER PATHOLOGY Encounter for ultrasound (HCC) Rh negative, antepartum (HCC) Rubella non-immune status, antepartum (HCC) Primigravida, antepartum ([facility]) 28 weeks gestation of ([facility]) 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 It has not been cleared or approved by FDA. This assay has been validated pursuant to the CLIA regulations and is used for clinical purposes. 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 [...] 3 lb 8 oz EFW by Hadlock ([id number]) appropriate Growth Overview Exam date [place] BPD [...] redraw of CMV Avidity Coding ====== Procedures 90968: US Preg Uterus Follow Up [employer] PACS Anatomical Region Laterality Modality Other 11/19/2024 1:11 PM MANAGER PATHOLOGY Jonny Cabrera DO [facility] ORDERABLES * (ABNORMAL) CYTOMEGALOVIRUS ANTIBODY IGG BLOOD (11/10/2024 1:50 PM MANAGER PATHOLOGY) Cytomegalovirus Antibody IgG >10.00(H) U/mL [employer] Comment: U/mL Interpretation ----- <0.60 Negative 0.60-0.69 Equivocal > or = 0.70 Positive A positive result indicates that the patient has antibody to CMV. It does not differentiate between an active or past infection. Test Performed at: [facility] [address] [facility] [place] [address] PINEDA TAM MD 11/10/2024 1:50 PM MANAGER PATHOLOGY 11/10/2024 1:53 PM MANAGER PATHOLOGY Britany Garcia APRN-DATABASE ADMIN LAB - CHEMI STRY ORDERABLES [facility] [address] [place] [address] from Last 3 Months Care Teams Football Scout Relationship Specialty Start Date End Date Faustino Matta MD [address] [address] PCP - General Pediatrics 08/05/12
--- OUTSIDE RECORDS SUMMARY | 2025-01-21 17:58 | XMS_ITS ---
Author Organization Unknown Address [address] [place] [phone] Phone Care Team Providers Care Cash Management Clerk Name Role Phone Blanco Gallego Attending Unavailable [...] em Smoking History Never smoker (Never Smoked) 277269925 SNOMED CT Sex Female Sexual Orientation Straight or Heterosexual 86302172 SNOMED CT Gender Identity Female [id number] [address] Medications Medication Start Date End Date Route Frequency Dose Code Code System Medication Instructions Home Meds ZyrTEC Allergy 10MG Oral Capsule, Liquid Filled 03/12/2023 Unknown By Mouth Daily 1 CAPSULE 0606940 RxNorm 1 CAPSULE By Mouth Daily Fluticasone 0.05MG/1Actuatio n Nasal [place] 03/12/2023 Unknown Nasal Daily 1 Sprays 7945646 RxNorm 1 Spra ys Nasal Daily Azithromycin 500MG Oral Tablet 06/04/2024 Unknown By Mouth x1 NOW 2 TABLET 769429 RxNorm 2 TABLET By Mouth x1 NOW [...] Status Code Code System SEASONAL ALLERGY active 353048642 SNO MED-CT FAMILY PLANNING 06/20/2020 active 949583604 SNO MED-CT BITE OF INSECT active 631087651 SNOME D-CT ES OF VAGINA 08/07/2022 active 20649051 S NOMED-CT MENORRHAGIA active 833468572 SNOMED-C T PAINFUL NECK active 89356833 SNOMED- CT ADHD OF CHILDHOOD 07/22/2019 resolved 372820157 S NOMED-CT SEASONAL NASAL ALLERGY 07/22/2019 resolved 369098 001 SNOMED-CT HISTORY OF CHICKENPOX 07/22/2019 resolved 5963082 08 SNOMED-CT Allergies and Adverse Reactions Allergy Substance Reaction Severity Start Date Concern Status Co de Code System Active seasonal allergies Active No Known Drug Allergies Active 941274604 SNOMED-CT No Known Drug Allergies Active 930495871 SNOMED-CT Plan of Treatment Description Due Date Details Instructions DEPRESSION SCREENING DUE 06/20/2021 Personal Care Team Section Performer Name Performer Role Active Date Inactive Da xena
--- OUTSIDE RECORDS SUMMARY | 2025-01-21 17:58 | XMS_ITS ---
Author Organization Unknown Address [address] [place] [address] [phone] Phone Care Team Providers Care Inspector Set Up And Lay Out Name Role Phone ATIYA Lezama MD Attending [...] em Smoking History Never smoker (Never Smoked) 264847151 SNOMED CT Sex Female Sexual Orientation Straight or Heterosexual 03452360 SNOMED CT Gender Identity Female [id number] Medications Medication Start Date End Date Route Frequency Dose Code Code System Medication Instructions Home Meds Radha 28 3MG-0.02MG Oral Tablet 09/12/2022 12/25/2022 By Mouth Once a day 1 TABLET RxNorm 1 TABLET By Mouth Once a day Medrol Dosepak 4MG Oral Tablet 12/25/2022 02/20/2023 By Mouth As Directed 1 PACK 460322 RxNorm 1 PACK By Mouth As Directed Methocarbamol 750MG Oral Tablet 12/25/2022 03/12/2023 By Mouth As needed every 8 hr 016678 RxNorm 1-2 TABLET By Mouth As needed every 8 hr Candor-28 30 MCG-0.15 MG; NA Oral Tablet 12/25/2022 03/12/2023 By Mouth Daily 1 TABLET 583114 RxNorm 1 TABLET By Mouth Daily Macrobid 100MG Oral Capsule 02/20/2023 03/12/2023 By mouth Twice a day 1 TABLET 368857 RxNorm 1 TABLET By mouth Twice a day X 7 DAYS Pyridium 100MG Oral Tablet 02/20/2023 03/12/2023 By mouth As needed every 8 hr 1 TABLET 7964626 RxNorm 1 TABLET By mouth As needed every 8 hr for urinary pain ZyrTEC Allergy 10MG Oral Capsule, Liquid Filled 03/12/2023 Unknown By Mouth Daily 1 CAPSULE 6989464 RxNorm 1 CAPSULE By Mouth Daily Fluticasone 0.05MG/1Actuati on Nasal [place] 03/12/2023 Unknown Nasal Daily 1 Sprays 9542898 RxNorm 1 Spr ays Nasal Daily Azithromycin 500MG Oral Tablet 06/04/2024 Unknown By Mouth x1 NOW 2 TABLET 110238 RxNorm 2 TABLET By Mouth x1 NOW [...] Status Code Code System SEASONAL ALLERGY active 722698766 SNO MED-CT FAMILY PLANNING 06/20/2020 active 556977295 SNO MED-CT BITE OF INSECT active 796498974 SNOME D-CT ES OF VAGINA 08/07/2022 active 61384386 S NOMED-CT MENORRHAGIA active 851395897 SNOMED-C T PAINFUL NECK active 89304108 SNOMED- CT ADHD OF CHILDHOOD 07/22/2019 resolved 569046127 S NOMED-CT SEASONAL NASAL ALLERGY 07/22/2019 resolved 270148 001 SNOMED-CT HISTORY OF CHICKENPOX 07/22/2019 resolved 6708096 08 SNOMED-CT Allergies and Adverse Reactions Allergy Substance Reaction Severity Start Date Concern Status Co de Code System Active seasonal allergies Active No Known Drug Allergies Active 177845723 SNOMED-CT No Known Drug Allergies Active 508564070 SNOMED-CT Plan of Treatment Description Due Date Details Instructions DEPRESSION SCREENING DUE 06/20/2021 Personal Care Team Section Performer Name Performer Role Active Date Inactive David mccallum
--- OUTSIDE RECORDS SUMMARY | 2025-01-21 17:58 | XMS_ITS ---
Author Organization Unknown Address [address] [place] [address] [phone] Phone Care Team Providers Care Technology Project Manager Name Role Phone TABATHA RODGERS Attending Unavailable [...] em Smoking History Never smoker (Never Smoked) 197180448 SNOMED CT Sex Female Sexual Orientation Straight or Heterosexual 81862989 SNOMED CT Gender Identity Female [id number] Medications Medication Start Date End Date Route Frequency Dose Code Code System Medication Instructions Home Meds predniSONE 50MG Oral Tablet 06/07/2022 07/31/2022 By Mouth Daily 1 TABLET 109781 RxNorm 1 TABLET By Mouth Daily Blue Eye-28 30MCG-0.15MG-NA Oral Tablet 06/07/2022 09/12/2022 By Mouth Daily 1 TABLET 639333 RxNorm 1 TABLET By Mouth Daily Diflucan 150MG Oral Tablet 08/07/2022 09/12/2022 By Mouth x1 NOW 1 TABLET 004993 RxNorm 1 TABLET By Mouth x1 NOW FOR MARCH REPEAT IN 72 HOURS Radha 28 3MG-0.02MG Oral Tablet 09/12/2022 12/25/2022 By Mouth Once a day 1 TABLET RxNorm 1 TABLET By Mouth Once a day Medrol Dosepak 4MG Oral Tablet 12/25/2022 02/20/2023 By Mouth As Directed 1 PACK 052182 RxNorm 1 PACK By Mouth As Directed Methocarbamol 750MG Oral Tablet 12/25/2022 03/12/2023 By Mouth As needed every 8 hr 091639 RxNorm 1-2 TABLET By Mouth As needed every 8 hr Anel-28 30 MCG-0.15 MG; NA Oral Tablet 12/25/2022 03/12/2023 By Mouth Daily 1 TABLET 407512 RxNorm 1 TABLET By Mouth Daily Macrobid 100MG Oral Capsule 02/20/2023 03/12/2023 By mouth Twice a day 1 TABLET 381212 RxNorm 1 TABLET By mouth Twice a day X 7 DAYS Pyridium 100MG Oral Tablet 02/20/2023 03/12/2023 By mouth As needed every 8 hr 1 TABLET 0117770 RxNorm 1 TABLET By mouth As needed every 8 hr for urinary pain ZyrTEC Allergy 10MG Oral Capsule, Liquid Filled 03/12/2023 Unknown By Mouth Daily 1 CAPSULE 5843329 RxNorm 1 CAPSULE By Mouth Daily Fluticasone 0.05MG/1Actuati on Nasal [place] 03/12/2023 Unknown Nasal Daily 1 Sprays 9933793 RxNorm 1 Spr ays Nasal Daily Azithromycin 500MG Oral Tablet 06/04/2024 Unknown By Mouth x1 NOW 2 TABLET 328867 RxNorm 2 TABLET By Mouth x1 NOW [...] Status Code Code System SEASONAL ALLERGY active 143888487 SNO MED-CT FAMILY PLANNING 06/20/2020 active 304381523 SNO MED-CT BITE OF INSECT active 703697480 SNOME D-CT ES OF VAGINA 08/07/2022 active 23295659 S NOMED-CT MENORRHAGIA active 193194769 SNOMED-C T PAINFUL NECK active 58570498 SNOMED- CT ADHD OF CHILDHOOD 07/22/2019 resolved 362158914 S NOMED-CT SEASONAL NASAL ALLERGY 07/22/2019 resolved 742216 001 SNOMED-CT HISTORY OF CHICKENPOX 07/22/2019 resolved 4817170 08 SNOMED-CT Allergies and Adverse Reactions Allergy Substance Reaction Severity Start Date Concern Status Co de Code System Active seasonal allergies Active No Known Drug Allergies Active 863061127 SNOMED-CT No Known Drug Allergies Active 631897275 SNOMED-CT Plan of Treatment Description Due Date Details Instructions DEPRESSION SCREENING DUE 06/20/2021 Personal Care Team Section Performer Name Performer Role Active Date Inactive David mccallum
--- OUTSIDE RECORDS SUMMARY | 2025-01-21 17:58 | XMS_ITS ---
Author Organization Unknown Address [address] [place] [address] [phone] Phone Care Team Providers Care General Supervisor Name Role Phone TABATHA RODGERS Attending Unavailable [...] MICR O - Collect Date/Time: 07/31/2022 17:14 [facility] ID: [id number] [address] [place] [address], [phone] LOINC: Test Value Unit Reference Range Code [...] TEST - Colle ct Date/Time: 07/31/2022 17:12 [facility] ID: [id number] [address] [place] [address], [phone] LOINC: Test Value Unit Reference Range Code Code System Flag TEST PERFORMED URINE PREG (URINE) NEGATIVE LOT#: [id number] EXP DATE: 2023-10-10 QC: ACCEPTABLE Social History Type Status Start Date End Date Code Code Syst em Smoking History Never smoker (Never Smoked) 836395285 SNOMED CT Sex Female Sexual Orientation Straight or Heterosexual 02488100 SNOMED CT Gender Identity Female [id number] [address] Vital Signs Vital Sign Value Unit [place] Value [place] Unit Date/Time Recent/Initial? Code Code System Body Mass Index 23.34 kg/m2 07/31/2022 16:59 Initial 75099 -5 LOINC Body Mass Index Percentile 71 % 07/31/2022 16:59 Initial 03487 -9 LOINC Systolic Blood Pressure 120 mm[Hg] 07/31/2022 16:59 Initial 8480- 6 LOINC Diastolic Blood Pressure 80 mm[Hg] 07/31/2022 16:59 Initial 8462- 4 [facility] Body Surface Area 1.79 m2 07/31/2022 16:59 Initial 3140- 1 [facility] Height 170.180 0 cm 67.00 in 07/31/2022 16:59 Initial 8302- 2 [facility] O2 Saturation 98 % 2021 16:59 Initial 42454 -5 [facility] Pulse 92.0 /min 07/31/2022 16:59 Initial 8867- 4 [facility] Temperature 36.8 Antonella 98.2 F 07/31/20 16:59 Initial 8310- 5 [facility] Weight 67.59 kg 149.00 lbs 07/31/2022 16:59 Initial 88091 -7 [facility] Medications Medication Start Date End Date Route Frequency Dose Code Code System Medication Instructions Home Meds predniSONE 50MG Oral Tablet 06/07/2022 07/31/2022 By Mouth Daily 1 TABLET 256941 RxNorm 1 TABLET By Mouth Daily Anel-28 30MCG-0.15MG-NA Oral Tablet 06/07/2022 09/12/2022 By Mouth Daily 1 TABLET 527461 RxNorm 1 TABLET By Mouth Daily Diflucan [...] 02/20/2023 By Mouth As Directed 1 PACK 759028 RxNorm 1 PACK By Mouth As Directed Methocarbamol 750MG Oral Tablet 12/25/2022 03/12/2023 By Mouth As needed every 8 hr 367789 RxNorm 1-2 TABLET By Mouth As needed every 8 hr Anel-28 30 MCG-0.15 MG; NA Oral Tablet 12/25/2022 03/12/2023 By Mouth Daily 1 TABLET 455111 RxNorm 1 TABLET By Mouth Daily Macrobid 100MG Oral Capsule 02/20/2023 03/12/2023 By mouth Twice a day 1 TABLET 747350 RxNorm 1 TABLET By mouth Twice a day X 7 DAYS Pyridium 100MG Oral Tablet 02/20/2023 03/12/2023 By mouth As needed every 8 hr 1 TABLET 9163369 RxNorm 1 TABLET By mouth As needed every 8 hr for urinary pain ZyrTEC Allergy 10MG Oral Capsule, Liquid Filled 03/12/2023 Unknown By Mouth Daily 1 CAPSULE 9551920 RxNorm 1 CAPSULE By Mouth Daily Fluticasone 0.05MG/1Actuati on Nasal [place] 03/12/2023 Unknown Nasal Daily 1 Sprays 4046158 RxNorm 1 Spr ays Nasal Daily Azithromycin 500MG Oral Tablet 06/04/2024 Unknown By Mouth x1 NOW 2 TABLET 218336 RxNorm 2 TABLET By Mouth x1 NOW [...] Status Code Code System SEASONAL ALLERGY active 160771106 SNO MED-CT FAMILY PLANNING 06/20/2020 active 460459952 SNO MED-CT BITE OF INSECT active 307327759 SNOME D-CT ES OF VAGINA 08/07/2022 active 41877432 S NOMED-CT MENORRHAGIA active 178603300 SNOMED-C T PAINFUL NECK active 33158685 SNOMED- CT ADHD OF CHILDHOOD 07/22/2019 resolved 189859150 S NOMED-CT SEASONAL NASAL ALLERGY 07/22/2019 resolved 677397 001 SNOMED-CT HISTORY OF CHICKENPOX 07/22/2019 resolved 0214608 08 SNOMED-CT Allergies and Adverse Reactions Allergy Substance Reaction Severity Start Date Concern Status Co de Code System Active seasonal allergies Active No Known Drug Allergies Active 885915369 SNOMED-CT No Known Drug Allergies Active 416445122 SNOMED-CT Plan of Treatment Description Due Date Details Instructions DEPRESSION SCREENING DUE 06/20/2021 Future Order Description Future Order Date Futu re Order Loinc: BACTERIAL VAGINOSIS RAPID TEST 07/31/2022 LOINC: 6410-5 CULTURE YEAST, WITH IDENTIFICATION 07/31/2022 LOINC: 12307-1 TRICHOMONAS VAGINALIS FEMALE RNA QUAL 2 LOINC: 78061-8 CHLAMYDIA/GC URINE RNA, TMA APTIMA 07/31/2022 LOINC: 5048-4 CULTURE URINE 07/31/2022 LOINC: 630-4 Encounters Encounter Diagnosis Start Date Code Code Sys tem Acute vaginitis 07/31/2022 66461423 SNOMED-CT Personal Care Team Section Performer Name Performer Role Active Date Inactive Da te Progress Notes [facility] 07/31/2022 18:10 Admission Date/Time: 07/31/2022 [...] NEGATIVE 07/31/2022 17:10 07/31/2022 17:12 final LOT#: [id number] 07/31/2022 17:10 07/31/2022 17:12 final EXP DATE: [...]
--- OUTSIDE RECORDS SUMMARY | 2025-01-21 18:00 | XMS_ITS | Data Portability ---
Author Organization [facility] [place] Address [address] [place] [address] Assessment No assessment recorded. Plan of Treatment [...] non-str ess test 2024 025 [email or web address] [place], [address], [place], [address], 01/19/2025 02:43:02 US, obstetr ic, biophys ical profile + non-str ess test 2024 [email or web address], [address], [place], [address], 01/18/2025 18:08:11 US, obstetr ic, follow- up 2024 [email or web address], [address], [place], [address], 01/11/2025 22:39:45 US, obstetr ic, biophys ical profile + non-str ess test 2024 025 [email or web address] [place], [address], [place], [address], 01/11/2025 22:39:45 non-str ess test 2024 025 [email or web address] [address], [address], [place], [address], 01/12/2025 06:37:12 Medication Orders None recorde d. [...] t Abnor mal: No Resul ting Lab: [facility] [address] [facility] [address] Tel: CULTU RE ----- ----- ----- --- No growt h in 1 day (dete ction level of 10,00 0 colon ies / ml.) Not Available [facility] (Lab) [address], [place], [address], 01/03/2025 23:55:30 01/12/20 25 01/11/2025 CULTU RE: GROUP B STREP SCREE N, REFLE X SUSCE PTIBI LITY result report SEE RESULT S BELOW abnormal Test: Cultu re: Group B Strep , Refle x Susce ptibi lity ([facility]/ [facility] ) Speci men Sourc e: Vagin a/Rec rebekah Speci men Type: Vagin al/Re ctal Speci men Date: 025 1150 Resul t Date: 025 1514 Resul t Statu s: Final resul t Abnor mal: Yes Resul basia Lab: [facility] [address] [facility] [address] Tel: CULTU RE ----- ----- ----- --- [...] hugo for these drugs . Not Available [facility] (Lab) [address], [place], [address], 01/15/2025 16:18:09 12/15/19 25 12/15/2024 US, obste tric, follo w-up No observ ation record ed. [email or web address] [place] [address], [place], [address], 12/15/2024 13:52:35 12/15/19 25 12/15/2024 US, obste tric, follo w-up No observ ation record ed. [email or web address] [address], [place], [address], 12/15/2024 22:51:06 12/30/19 25 12/30/2024 non-s tress test No observ ation record ed. [place] [address], [place], [address], 01/01/2025 13:38:09 03/03/20 25 01/11/2025 non-s tress test No observ ation record ed. [email or web address] [place] [address], [place], [address], 01/11/2025 11:07:08 01/12/20 25 01/11/2025 US, obste tric, follo w-up No observ ation record ed. [email or web address] [place] [address], [place], [address], 01/11/2025 17:20:12 01/12/20 25 01/11/2025 US, obste tric, bioph ysica l profi le + non-s tress test No observ ation record ed. [email or web address] [place] [address], [place], [address], 01/11/2025 17:20:21 01/12/20 25 01/11/2025 US, obste tric, follo w-up No observ ation record ed. [email or web address] [address], [place], [address], 01/11/2025 22:14:29 01/19/20 25 01/18/2025 US, obste tric, bioph ysica l profi le + non-s tress test No observ ation record ed. [email or web address] [place] [address], [place], [address], 01/18/2025 18:13:15 01/19/20 25 01/18/2025 US, obste tric, bioph ysica l profi le + non-s tress test No observ ation record ed. [email or web address] [address], [place], [address], 01/18/2025 14:29:09 01/19/20 25 01/18/2025 non-s tress test No observ ation record ed. [place] [address], [place], [address], 01/18/2025 14:40:38 Result Notes None recorded. Problems Name Problem SNOMED Code Status Onset Date Resolution Date Notes Provider Name and Address Organization Details Recorded Time 65066815 Active 2024 Zelda Wang dave, [facility] 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 22:12:52 Large for gestation age fetus 494872452 Active 94% at 11/2024 [facility] TRINI RODRIGUEZ MD [address], [place], [address], [facility] 22:40:35 Cytomegal ovirus antibody screening Active Positive per [facility]; echogenic bowel on 3T US, resolved on later scan; twice weekly testing per [facility] TRINI RODRIGUEZ MD [address], [place], [address], [facility] 5 22:12:30 Gestation al diabetes mellitus 29811902 Active TRINI RODRIGUEZ MD [address], [place], [address], [facility] 5 22:40:11 Gestation al diabetes mellitus 65445242 Active TRINI RODRIGUEZ MD [address], [place], [address], [facility] 5 22:40:11 Cytomegal ovirus antibody screening Active Positive per [facility]; echogenic bowel on 3T US, resolved on later scan; twice weekly testing per M TRINI RODRIGUEZ MD [address], [place], [address], [facility] 22:40:17 Klinefelt er's syndrome, XXY 013083720 Active High risk on NIPT; declined amniocent esis; genetic testing at delivery TRINI RODRIGUEZ MD [address], [place], [address], [facility] 22:40:36 Large for gestation age fetus 003774017 Active 94% at 11/2024 [facility] TRINI RODRIGUEZ MD [address], [place], [address], [facility] 22:40:38 Problem Notes None recorded. Procedures Surgical History Date Name Laterality Status Provider Name and Address Organization Details Recorded Time Appendectomy completed Zelda Wang [facility] 12/15/2024 13:12:49 Appendectomy completed Julieta Goddard [facility] 12/30/2024 17:09:16 Imaging Results Imaging Date Name Status LastModified by Organiz ation Details LastModified Time 12/15/2024 US, obstetric, follow-up completed [email or web address] [place] [address], [place], [address], 12/15/2024 13:52:35 12/15/2024 US, obstetric, follow-up completed [email or web address] [address], [place], [address], 12/15/2024 22:51:06 12/30/2024 non-stress test completed [address], [place], [address], 01/01/2025 13:38:09 01/11/2025 non-stress test completed [email or web address] [place] [address], [place], [address], 01/11/2025 11:07:08 01/11/2025 US, obstetric, follow-up completed [email or web address] [place] [address], [place], [address], 01/11/2025 17:20:12 01/11/2025 US, obstetric, biophysical profile + non-stress test completed [email or web address] [place] [address], [place], [address], 01/11/2025 17:20:21 01/11/2025 US, obstetric, follow-up completed [email or web address], [place], [address], 01/11/2025 22:14:29 01/18/2025 US, obstetric, biophysical profile + non-stress test completed [email or web address] [place] [address], [place], [address], 01/18/2025 18:13:15 01/18/2025 US, obstetric, biophysical profile + non-stress test completed [email or web address] [address], [place], [address], 01/18/2025 14:29:09 01/18/2025 non-stress test completed [place] [address], [place], [address], 01/18/2025 14:40:38 Procedure Notes None recorded. Medical [...] 5 172.72 cm 28.3 kg/m2 89 % 27557.1 8 g 125 mm[Hg] 83 mm[Hg] Julieta Goddard [facility] 5 11:57:34 Date Recorded Body height Body mass index (BMI) Body mass index (BMI) Percentile per age and sex Body weight Systolic blood pressure Diastolic blood pressure Provider Name and Address Organization Details Last Updated DateTime 5 172.72 cm 28.3 kg/m2 89 % 73071.1 8 g 116 mm[Hg] 77 mm[Hg] DONI Larsen [facility] 5 14:30:57 Social History Question Answer [...] Or The Highest Degree You Have Received? 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 Na [email or web address] Information not available 12/30/2024 Are There Any [...] Anxious, Or Unable To Sleep At Night)? [id number] Information not available 12/15/2024 Do You Use Any Illicit Or Recreational Drugs? No Information not available 12/15/2024 Do You Use Sunscreen Routinely? Yes [email or web address] Information not available 12/30/2024 Have You Used [...] SNOMED-CT Code Diagnosis ICD10 Code Diagnosis Note [id number] Carmen He [place] [address],[place] [address] 12/15/2024 11:23:34 12/15/2024 12:36:18 Gestational diabetes mellitus 92074220 O24.410 Z3A.32 839017 Tod Briggs MD [place] [address],[place] [address] 12/15/2024 11:26:10 12/15/2024 13:53:08 Routine care 849289795 Z34.03 [id number] TRINI RODRIGUEZ MD [place] [address],[place] [address] 12/30/2024 17:03:09 12/31/2024 10:05:53 Gestational diabetes mellitus 82911564 O24.410 Z3A.32 - A1- good glycemic control History of cytomegalovirus infection 5179813258 31082887 Z86.19 - positive antibodies - records requested from [facility]- twice weekly testing per [facility] Klinefelte r's syndrome, XXY 413674545 Q98.0 - high risk on NIPT- declined amniocente sis- plan for cord blood at deliveryfo r confirmato ry testing Large for gestation age fetus 871179577 O36.63X0 - 94% at 11/2024 [facility] scan Gestation period, 34 weeks 34132387 Z3A.34 - all outside scans and labs reviewed today- continue PNV RhD negative 852755704 Z - B neg blood type- patient reports she has not received Rhogam injection yet- labs sent today for Rhogam eval [id number] Julieta Goddard [place] [address],[facility] [place] [address] 01/11/2025 10:19:23 01/11/2025 11:08:16 Gestational diabetes mellitus 61381583 O24.410 Z3A.32 - A1- good glycemic control [id number] [facility] [address],[place] [address] 01/11/2025 10:20:01 01/11/2025 12:06:23 Gestational diabetes mellitus 08378520 O24.410 O36.63X0 Z3A.36 [id number] TRINI RODRIGUEZ MD [place] [address],[place] [address] 01/11/2025 10:20:16 01/11/2025 12:33:12 Gestational diabetes mellitus 61264111 O24.410 O36.63X0 Z3A.36 - A1- good glycemic control Klinefelte r's syndrome, XXY 362445406 Q98.0 - high risk on NIPT- declined amniocente sis- plan for cord blood at delivery for confirmato ry testing Large for gestation age fetus 453969024 O36.63X0 - 94% at 11/2024 [facility] scan- 88% at 01/11/25 (36 week) [place] History of cytomegalovirus infection 3550225397 02834349 Z86.19 - positive antibodies , drawn due to echogenic bowel which resolved- weekly testing per [facility] Gestation period, 36 weeks 92507198 Z3A.36 - continue PNV- GBS collected today [id number] [facility] [address],[place] [address] 01/18/2025 13:29:19 01/18/2025 14:02:39 Gestational diabetes mellitus 07198402 O24.410 Z3A.37 [id number] Julieta Victor [place] [address] [place] [address] 01/18/2025 13:29:38 01/18/2025 14:42:35 Gestational diabetes mellitus 81453210 O24.410 O36.63X0 Z3A.36 - A1- good glycemic control [id number] TRINI RODRIGUEZ MD [place] [address],[place] [address] 01/18/2025 13:29:48 01/18/2025 14:58:44 Klinefelter's syndrome, XXY 725153071 Q98.0 - high risk on NIPT- declined amniocente sis- plan for cord blood at delivery for confirmato ry testing Gestationa l diabetes mellitus 02939573 O24.410 - A1- good glycemic control Gestation period, 37 weeks 30722149 Z3A.37 - continue PNV Group B St reptococcus carrier 1485288484 103 Z22.330 - plan for antibiotic s during labor Health Concerns Section Related Observation LastModified by Organization Detai ls LastModified Time None Recorded Concern Status LastModified by Organization Details LastModified Time None Recorded Advance Directives Directive N: Payers Encounter Date Sequence Insurance Name Policy Number Policy Rivers Covered Member ID Rivers Member ID Guarantor Name 01/11/2025 1 [employer] [facility] [place] ([place]ICA[place]) [id number] Lani Ho [id number] Lani Ho 01/11/2025 1 [facility] (MEDICAID HMO) [id number] Lani Ho [id number] Lani Ho 01/18/2025 1 [facility] (MEDICAID HMO) [id number] 0003 Lani Ho [id number] Lani Ho 01/18/2025 1 [employer] [facility] [place] [id number] Lani Ho [id number] Lani Ho 01/18/2025 1 [employer] [facility] [place] [id number] 0003 Lani Ho [id number] Lani Ho OBGyn Episode Ob Episode Information Episode Created Date Number of Fetuses Patient Bloodtype Patient rh Status Prepregnancy Weight lbs Domestic Partner Domestic Partner Phone Father Name 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 Status 12/15/19 25 1 OPEN Fetus Data First Name Last Name Admitted to NICU Weight (g) Sex Living Outcome Pediatric Complications Fetus ID Race Codes Race Delivery Type [id number] Problems Problem Notes GBS + Problem Name Start Date End Date Resolution Snomed Code Not e Large for gestation age fetus 94% at 11/2024 [facility] US Gestational diabetes mellitus 44715877 Cytomegalovirus antibody screening 128822951 Positive per M M; echogenic bowel on 3T US, resolved on later scan; twice weekly testing per [facility] Klinefelter's syndrome, XXY 925513673 High risk on NI PT; declined amniocentesis; [...] Weight in lbs Pre/Post Dialysis Refused Weight 182.818275011377 BP Diastolic BP Location Tested BP Systolic [...] Type Weight in lbs Pre/Post Dialysis Refused 186.954323015808 BP Diastolic BP Location Tested BP Systolic BP Type 83 L arm 127 sitting Fetus Heart Rate Present A 145 Fetus Movement A Yes Comments Good movement. No cram ping or bleeding. Transfer from [place] at 32 weeks; has been complicated by GDMA1; good glycemic control per patient. Checking fasting and 2h PP sugars. Discussed risks of GDM including increased risk of c section, shoulder dystocia and hypoglycemia. Discussed importance of good glycemic control. [facility] Kleinfelter's [facility], high risk on NIPT however declined amniocentesis. Will send cord blood at delivery to confirm. On review of MFM records, patient had +CMV antibodies. Will request further records regarding CMV. Per patient, [facility] recommends twice weekly testing. Most recent [...] Weight in lbs Pre/Post Dialysis Refused Weight 186.367639509158 BP Diastolic BP Location Tested BP Systolic BP Type 83 L arm 125 sitting Fetus Heart Rate Present A 140 Fetus Movement A Yes Comments Patient c/o back pains and p elvic pressure. Good movement. Glucose overall wnl, no consistently abnormal readings. Received rhogam. BPP 08/20, EFW 88% (previously 94%). GBS collected today. SVE 0.5cm. Discussed MIL for GDM between 98f4-70z0q. Patient to discuss with partner and will [...] Weight in lbs Pre/Post Dialysis Refused Weight 186.555055759942 BP Diastolic BP Location Tested BP Systolic [...]
--- OUTSIDE RECORDS SUMMARY | 2025-01-21 18:00 | XMS_ITS ---
Author Organization Unknown Address [address] [place] [phone] Phone Care Team Providers Care Digital Forensic Examiner Name Role Phone Blanco Gallego Attending Unavailable [...] em Smoking History Never smoker (Never Smoked) 342828821 SNOMED CT Sex Female Sexual Orientation Straight or Heterosexual 64918718 SNOMED CT Gender Identity Female [id number] [address] Vital Signs Vital Sign Value Unit Mobile Value Mobile Unit Date/Time Recent/Initial? Code Code System Body Mass Index 23.87 kg/m2 12/25/2022 13:33 Initial 77168 -5 [facility] Body Mass Index Percentile 74 % 12/25/2022 13:33 Initial 49103 -9 [facility] Systolic Blood Pressure 106 mm[Hg] 12/25/2022 13:33 Initial 8480- 6 [facility] Diastolic Blood Pressure 72 mm[Hg] 12/25/2022 13:33 Initial 8462- 4 [facility] Body Surface Area 1.85 m2 12/25/2022 13:33 Initial 3140- 1 [facility] Height 172.720 0 cm 68.00 in 12/25/2022 13:33 Initial 8302- 2 [facility] O2 Saturation 100 % 2022 13:33 Initial 51709 -5 [facility] Pulse 82.0 /min 12/25/2022 13:33 Initial 8867- 4 [facility] Respiration 16 /min 12/25/19 13:33 Initial 9279- 1 [facility] Temperature 37.0 Antonella 98.6 F 12/25/19 13:33 Initial 8310- 5 [facility] Weight 71.21 kg 157.00 lbs 12/25/2022 13:33 Initial 24501 -7 [facility] Medications Medication Start Date End Date Route Frequency Dose Code Code System Medication Instructions Home Meds Radha 28 3MG-0.02MG Oral Tablet 09/12/2022 12/25/2022 By Mouth Once a day 1 TABLET RxNorm 1 TABLET By Mouth Once a day Medrol Dosepak 4MG Oral Tablet 12/25/2022 02/20/2023 By Mouth As Directed 1 PACK 090457 RxNorm 1 PACK By Mouth As Directed Methocarbamol 750MG Oral Tablet 12/25/2022 03/12/2023 By Mouth As needed every 8 hr 821970 RxNorm 1-2 TABLET By Mouth As needed every 8 hr Ferney-28 30 MCG-0.15 MG; NA Oral Tablet 12/25/2022 03/12/2023 By Mouth Daily 1 TABLET 468394 RxNorm 1 TABLET By Mouth Daily Macrobid 100MG Oral Capsule 02/20/2023 03/12/2023 By mouth Twice a day 1 TABLET 377289 RxNorm 1 TABLET By mouth Twice a day X 7 DAYS Pyridium 100MG Oral Tablet 02/20/2023 03/12/2023 By mouth As needed every 8 hr 1 TABLET 4877061 RxNorm 1 TABLET By mouth As needed every 8 hr for urinary pain ZyrTEC Allergy 10MG Oral Capsule, Liquid Filled 03/12/2023 Unknown By Mouth Daily 1 CAPSULE 1391931 RxNorm 1 CAPSULE By Mouth Daily Fluticasone 0.05MG/1Actuati on Nasal [place] 03/12/2023 Unknown Nasal Daily 1 Sprays 7032109 RxNorm 1 Spr ays Nasal Daily Azithromycin 500MG Oral Tablet 06/04/2024 Unknown By Mouth x1 NOW 2 TABLET 042765 RxNorm 2 TABLET By Mouth x1 NOW Assessment You had the following problems:SEASONAL ALLERGYFAMILY PLANNINGBITE OF INSECTCANDIDA OF VAGINAMENORRHAGIAPAINFUL NECK Assessment/Plan: 1. Left upper back pain - Start steroids and muscle relaxer. Patient denies need for school note. 2. Contraceptive management - Patient requesting to restart Ferney, will restart at this time Return to clinic [facility] Discharge Instructions Should you have any questions prior to discharge, please contact a member of your healthcare team. If you have left the hospital and have any questions, please contact your primary care physician. Reason For Referral No Data Found Problems Problem Start Date Resolved Date Status Code Code System SEASONAL ALLERGY active 344981381 SNO MED-CT FAMILY PLANNING 06/20/2020 active 981269151 SNO MED-CT BITE OF INSECT active 145067888 SNOME D-CT ES OF VAGINA 08/07/2022 active 06989907 S NOMED-CT MENORRHAGIA active 748119352 SNOMED-C T PAINFUL NECK active 27347531 SNOMED- CT ADHD OF CHILDHOOD 07/22/2019 resolved 232468861 S NOMED-CT SEASONAL NASAL ALLERGY 07/22/2019 resolved 815631 001 SNOMED-CT HISTORY OF [place] 07/22/2019 resolved 2367377 08 SNOMED-CT Allergies and Adverse Reactions Allergy Substance Reaction Severity Start Date Concern Status Co de Code System Active seasonal allergies Active No Known Drug Allergies Active 783643399 SNOMED-CT No Known Drug Allergies Active 898768858 SNOMED-CT Plan of Treatment Description Due Date Details Instructions DEPRESSION SCREENING DUE 06/20/2021 Encounters Encounter Diagnosis Start Date Code Code Sys tem Pain in thoracic spine 12/25/2022 803685868 SNOME D-CT Personal Care Team Section Performer Name Performer Role Active Date Inactive Da te Progress Notes [facility] 12/25/2022 13:54 Admission Date/Time: 12/25/2022 13:07 [facility] Clinic Visit Note Chief Complaint: [place] [facility] F/U UPPER BACK PAIN/BY NECK SWOLLEN [...] is an 17 yo female presents to [facility] today for [place] [facility] follow up neck and back pain. Pt states she went to [place] [facility] on 12-18-22 with neck and upper back pain. States it just started hurting her while at work, denies injury to the areas. States no xrays were done at ER and was given Rx for steroids that she did not pear picker. States she has been taking warm [...] Contraceptive management - Patient requesting to restart Ferney, will restart at this time Return to [...] records Referring and communicating with other health ambulatory care x Obtaining and/or reviewing separately obtained history Independent interpretation of results and communicating results to the patient/family/caregiver x Performing a medically appropriate examination/evaluation Care coordination (not reported separately) Ordered & Completed Meds Table: No Current Medications Available Discharge Med List: Discharge Medications: No Discharge Medications Available
--- NOTE | 2025-01-21 18:05 | PC.NURSE ---
pt to OB after discussing complaints with TAMARA Pope
--- OUTSIDE RECORDS SUMMARY | 2025-01-21 18:24 | XMS_ITS ---
Author Organization Unknown Address [address] [place] [phone] Phone Care Team Providers Care Granulator Tender Name Role Phone ABBY AGUIRRE Attending Unavailable [...] em Smoking History Never smoker (Never Smoked) 480474322 SNOMED CT Sex Female Sexual Orientation Straight or Heterosexual 70057943 SNOMED CT Gender Identity Female [id number] [address] Vital Signs Vital Sign Value Unit Steele Value Steele Unit Date/Time Recent/Initial? Code Code System Body Mass Index 26.21 kg/m2 05/06/2023 12:01 Initial 53048 -5 [facility] Body Mass Index Percentile 85 % 05/06/2023 12:01 Initial 22006 -9 [facility] Systolic Blood Pressure 118 mm[Hg] 05/06/2023 12:01 Initial 8480- 6 [facility] Diastolic Blood Pressure 74 mm[Hg] 05/06/2023 12:01 Initial 8462- 4 [facility] Body Surface Area 3.35 m2 05/06/2023 12:01 Initial 3140- 1 [facility] Height 248.920 0 cm 98.00 in 05/06/2023 12:01 Initial 8302- 2 [facility] O2 Saturation 98 % 2022 12:01 Initial 89944 -5 [facility] Pulse 78.0 /min 05/06/2023 12:01 Initial 8867- 4 [facility] Temperature 36.4 Antonella 97.5 F 05/06/20 12:01 Initial 8310- 5 [facility] Weight 162.40 kg 358.03 lbs 05/06/2023 12:01 Initial 64796 -7 [facility] Medications Medication Start Date End Date Route Frequency Dose Code Code System Medication Instructions Home Meds ZyrTEC Allergy 10MG Oral Capsule, Liquid Filled 03/12/2023 Unknown By Mouth Daily 1 CAPSULE 7992055 RxNorm 1 CAPSULE By Mouth Daily Fluticasone 0.05MG/1Actuatio n Nasal [place] 03/12/2023 Unknown Nasal Daily 1 Sprays 0097053 RxNorm 1 Spra ys Nasal Daily Azithromycin 500MG Oral Tablet 06/04/2024 Unknown By Mouth x1 NOW 2 TABLET 614743 RxNorm 2 TABLET By Mouth x1 NOW [...] Status Code Code System SEASONAL ALLERGY active 166232783 SNO MED-CT FAMILY PLANNING 06/20/2020 active 418539219 SNO MED-CT BITE OF INSECT active 432162925 SNOME D-CT ES OF VAGINA 08/07/2022 active 75526336 S NOMED-CT MENORRHAGIA active 898750126 SNOMED-C T PAINFUL NECK active 56091196 SNOMED- CT ADHD OF CHILDHOOD 07/22/2019 resolved 454174753 S NOMED-CT SEASONAL NASAL ALLERGY 07/22/2019 resolved 078430 001 SNOMED-CT HISTORY OF [place] 07/22/2019 resolved 3788724 08 SNOMED-CT Allergies and Adverse Reactions Allergy Substance Reaction Severity Start Date Concern Status Co de Code System Active seasonal allergies Active No Known Drug Allergies Active 285916738 SNOMED-CT No Known Drug Allergies Active 047690383 SNOMED-CT Plan of Treatment Description Due Date Details Instructions DEPRESSION SCREENING DUE 06/20/2021 Encounters Encounter Diagnosis Start Date Code Code Sys tem Injury of head 05/06/2023 89121860 SNOMED-CT Personal Care Team Section Performer Name Performer Role Active Date Inactive Da te Progress Notes [facility] 05/06/2023 13:28 Date of Service: 05/06/2023 Convenient [...] Instructions Start Date Prescribing Fluticasone 0.05MG/1Actuation Nasal [place] 1 Sprays Nasal Daily 03/12/2023 Blanco Gallego ZyrTEC Allergy 10MG Oral Capsule, Liquid Filled 1 CAPSULE By Mouth Daily 03/12/2023 Blanco Gallego This examination was transcribed using the [employer] voice recognition system without human sap business objects consultant. In an effort to expedite patient care, this report has not been adjusted for typographical, or medical or syntax by a trained emergency medical technician basic.
--- OUTSIDE RECORDS SUMMARY | 2025-01-21 18:24 | XMS_ITS ---
Author Organization Unknown Address [address], [place] [phone] Phone Care Team Providers Care Tankerman Name Role Phone DEON CONROY Attending Unavailable Results CYTOMEGALOVIRUS AB IGG - Col lect Date/Time: 10/22/2024 14:12 [facility] ID: [id number] [address], [place], [phone] LOINC: 5124-3 Test Value Unit Reference Range Code Code System Flag CYTOMEGALOVIRUS ANTIBODY(IGG) >10.00 H PARVOVIRUS B19 IGG & IGM - C ollect Date/Time: 10/22/2024 14:12 [facility] ID: [id number] [address], [place], [phone] LOINC: 5273-8 Test Value Unit Reference Range Code Code System Flag PARVOVIRUS B19 ANTIBODY(IGG) 0.2 PARVOVIRUS B19 ANTIBODY(IGM) 0.2 Social History Type Status Start Date End Date Code Code Syst em Smoking History Never smoker (Never Smoked) 433118621 SNOMED CT Sex Female Sexual Orientation Straight or Heterosexual 00349947 SNOMED CT Gender Identity Female [id number] [address] Medications Medication Start Date End Date Route Frequency Dose Code Code System Medication Instructions Home Meds ZyrTEC Allergy 10MG Oral Capsule, Liquid Filled 03/12/2023 Unknown By Mouth Daily 1 CAPSULE 6673255 RxNorm 1 CAPSULE By Mouth Daily Fluticasone 0.05MG/1Actuatio n Nasal [place] 03/12/2023 Unknown Nasal Daily 1 Sprays 2712748 RxNorm 1 Spra ys Nasal Daily Azithromycin 500MG Oral Tablet 06/04/2024 Unknown By Mouth x1 NOW 2 TABLET 575912 RxNorm 2 TABLET By Mouth x1 NOW [...] Status Code Code System SEASONAL ALLERGY active 867396102 SNO MED-CT FAMILY PLANNING 06/20/2020 active 114706771 SNO MED-CT BITE OF INSECT active 585985841 SNOME D-CT ES OF VAGINA 08/07/2022 active 96568197 S NOMED-CT MENORRHAGIA active 209754817 SNOMED-C T PAINFUL NECK active 42494253 SNOMED- CT ADHD OF CHILDHOOD 07/22/2019 resolved 524722839 S NOMED-CT SEASONAL NASAL ALLERGY 07/22/2019 resolved 401417 001 SNOMED-CT HISTORY OF [place] 07/22/2019 resolved 8182094 08 SNOMED-CT Allergies and Adverse Reactions Allergy Substance Reaction Severity Start Date Concern Status Co de Code System Active seasonal allergies Active No Known Drug Allergies Active 512785509 SNOMED-CT No Known Drug Allergies Active 666935683 SNOMED-CT Plan of Treatment Description Due Date Details Instructions DEPRESSION SCREENING DUE 06/20/2021 Encounters Encounter Diagnosis Start Date Code Code Sys tem ultrasound scan abnormal 10/22/2024 173358 005 SNOMED-CT Personal Care Team Section Performer Name Performer Role Active Date Inactive Da xena
--- OUTSIDE RECORDS SUMMARY | 2025-01-21 18:24 | XMS_ITS ---
Author Organization Unknown Address [address] [place] [phone] Phone Care Team Providers Care Catering Sous Chef Name Role Phone ATIYA Lezama MD Attending [...] em Smoking History Never smoker (Never Smoked) 711409867 SNOMED CT Sex Female Sexual Orientation Straight or Heterosexual 45312110 SNOMED CT Gender Identity Female 63217653789550 [address] Vital Signs Vital Sign Value Unit Mono Value Mono Unit Date/Time Recent/Initial? Code Code System Body Mass Index 22.93 kg/m2 09/12/2022 17:59 Initial 19754 -5 [facility] Body Mass Index Percentile 67 % 09/12/2022 17:59 Initial 93695 -9 [facility] Systolic Blood Pressure 100 mm[Hg] 09/12/2022 17:59 Initial 8480- 6 [facility] Diastolic Blood Pressure 70 mm[Hg] 09/12/2022 17:59 Initial 8462- 4 [facility] Body Surface Area 1.81 m2 09/12/2022 17:59 Initial 3140- 1 [facility] Height 172.720 0 cm 68.00 in 09/12/2022 17:59 Initial 8302- 2 [facility] O2 Saturation 99 % 2021 17:59 Initial 29476 -5 [facility] Pulse 95.0 /min 09/12/2022 17:59 Initial 8867- 4 [facility] Respiration 18 /min 09/12/20 17:59 Initial 9279- 1 [facility] Temperature 36.9 Antonella 98.4 F 09/12/20 17:59 Initial 8310- 5 [facility] Weight 68.40 kg 150.80 lbs 09/12/2022 17:59 Initial 96342 -7 [facility] Medications Medication Start Date End Date Route Frequency Dose Code Code System Medication Instructions Home Meds Anle-28 30MCG-0.15MG-NA Oral Tablet 06/07/2022 09/12/2022 By Mouth Daily 1 TABLET 249996 RxNorm 1 TABLET By Mouth Daily Diflucan 150MG Oral Tablet 08/07/2022 09/12/2022 By Mouth x1 NOW 1 TABLET 015083 RxNorm 1 TABLET By Mouth x1 NOW FOR MARCH REPEAT IN 72 HOURS Radha 28 3MG-0.02MG Oral Tablet 09/12/2022 12/25/2022 By Mouth Once a day 1 TABLET RxNorm 1 TABLET By Mouth Once a day Medrol Dosepak 4MG Oral Tablet 12/25/2022 02/20/2023 By Mouth As Directed 1 PACK 025857 RxNorm 1 PACK By Mouth As Directed Methocarbamol 750MG Oral Tablet 12/25/2022 03/12/2023 By Mouth As needed every 8 hr 506821 RxNorm 1-2 TABLET By Mouth As needed every 8 hr [place]-28 30 MCG-0.15 MG; NA Oral Tablet 12/25/2022 03/12/2023 By Mouth Daily 1 TABLET 602772 RxNorm 1 TABLET By Mouth Daily Macrobid 100MG Oral Capsule 02/20/2023 03/12/2023 By mouth Twice a day 1 TABLET 507856 RxNorm 1 TABLET By mouth Twice a day X 7 DAYS Pyridium 100MG Oral Tablet 02/20/2023 03/12/2023 By mouth As needed every 8 hr 1 TABLET 5623025 RxNorm 1 TABLET By mouth As needed every 8 hr for urinary pain ZyrTEC Allergy 10MG Oral Capsule, Liquid Filled 03/12/2023 Unknown By Mouth Daily 1 CAPSULE 0131058 RxNorm 1 CAPSULE By Mouth Daily Fluticasone 0.05MG/1Actuatio n Nasal [place] 03/12/2023 Unknown Nasal Daily 1 Sprays 7480892 RxNorm 1 Spra ys Nasal Daily Azithromycin 500MG Oral Tablet 06/04/2024 Unknown By Mouth x1 NOW 2 TABLET 522857 RxNorm 2 TABLET By Mouth x1 NOW Assessment You had the following problems:SEASONAL ALLERGYFAMILY PLANNINGBITE OF INSECTCANDIDA OF VAGINAMENORRHAGIAPAINFUL NECK Assessment/Plan: 1) Menorrhagia: Will check TSH, T4, CBC, PT/INR, and CMP. Will discontinue the Anel and start her on Radha 1 tablet daily. 2) Contraceptive management: Patient is currently on [place] but this is not managing her periods [...] Status Code Code System SEASONAL ALLERGY active 839093707 SNO MED-CT FAMILY PLANNING 06/20/2020 active 631389540 SNO MED-CT BITE OF INSECT active 073822922 SNOME D-CT ES OF VAGINA 08/07/2022 active 14384003 S NOMED-CT MENORRHAGIA active 663817158 SNOMED-C T PAINFUL NECK active 59070512 SNOMED- CT ADHD OF CHILDHOOD 07/22/2019 resolved 309735912 S NOMED-CT SEASONAL NASAL ALLERGY 07/22/2019 resolved 174574 001 SNOMED-CT HISTORY OF [place] 07/22/2019 resolved 7228008 08 SNOMED-CT Allergies and Adverse Reactions Allergy Substance Reaction Severity Start Date Concern Status Co de Code System Active seasonal allergies Active No Known Drug Allergies Active 279291309 SNOMED-CT No Known Drug Allergies Active 520001026 SNOMED-CT Plan of Treatment Description Due Date Details Instructions DEPRESSION SCREENING DUE 06/20/2021 Future Order Description Future Order Date Futu re Order Loinc: TSH 09/12/2022 LOINC: 60846-3 FREE T4 09/12/2022 LOINC: 3024-7 CBC W DIFF 09/12/2022 LOINC: 75057-8 COMPREHENSIVE METABOLIC PANEL 09/12/2022 L OINC: 99673-1 PT (PROTIME) 09/12/2022 LOINC: 6301-6 Encounters Encounter Diagnosis Start Date Code Code Sys tem Excessive and frequent menstruation 09/12/2022 34424 1003 SNOMED-CT Personal Care Team Section Performer Name Performer Role Active Date Inactive Da te Progress Notes [facility] 09/13/2022 09:49 Admission Date/Time: 09/12/2022 13:21 Rachael Andersen MD Clinic Visit Note Chief Complaint: DISCUSS BC Has the patient received a COVID Vaccine? Yes Nurse Note: this nurse note is documented by Opal Ly CMA 17 yr old female present to [facility] today to discuss BC History of Present Illness: An 17-year-old presents to [facility] today to discuss BC. Patient states since [...] CBC, PT/INR, and CMP. Will discontinue the [place] and start her on Radha 1 tablet daily. 2) Contraceptive management: Patient is currently on [place] but this is not managing her periods [...] Referring and communicating with other health medicare contact specialist Obtaining and/or reviewing separately obtained history Independent [...]
--- OUTSIDE RECORDS SUMMARY | 2025-01-21 18:24 | XMS_ITS | Clinical Summary ---
Author Organization [facility] Address [address] [place] [id number] Care Team Providers Care Lockstitch Hemmer Name Role Phone Geovanna Pryor NP Primary [...] age to complete this topic Care Teams Lockstitch Hemmer Relationship Specialty Start Date End Date Geovanna Pryor NP [address] [place] [address] PCP - General Nurse Practitioner Family 06/17/19 Geovanna Pryor NP [address] [place] [address] 06/17/19
--- OUTSIDE RECORDS SUMMARY | 2025-01-21 18:25 | XMS_ITS ---
Author Organization Unknown Address [address] [place] [phone] Phone Care Team Providers Care Slabbing Machine Operator Name Role Phone Blanco Gallego Attending Unavailable [...] em Smoking History Never smoker (Never Smoked) 681861841 SNOMED CT Sex Female Sexual Orientation Straight or Heterosexual 13919204 SNOMED CT Gender Identity Female [id number] [address] Medications Medication Start Date End Date Route Frequency Dose Code Code System Medication Instructions Home Meds Medrol Dosepak 4MG Oral Tablet 12/25/2022 02/20/2023 By Mouth As Directed 1 PACK 561491 RxNorm 1 PACK By Mouth As Directed Methocarbamol 750MG Oral Tablet 12/25/2022 03/12/2023 By Mouth As needed every 8 hr 550735 RxNorm 1-2 TABLET By Mouth As needed every 8 hr [place]-28 30 MCG-0.15 MG; NA Oral Tablet 12/25/2022 03/12/2023 By Mouth Daily 1 TABLET 326288 RxNorm 1 TABLET By Mouth Daily Macrobid 100MG Oral Capsule 02/20/2023 03/12/2023 By mouth Twice a day 1 TABLET 458215 RxNorm 1 TABLET By mouth Twice a day X 7 DAYS Pyridium 100MG Oral Tablet 02/20/2023 03/12/2023 By mouth As needed every 8 hr 1 TABLET 8509210 RxNorm 1 TABLET By mouth As needed every 8 hr for urinary pain ZyrTEC Allergy 10MG Oral Capsule, Liquid Filled 03/12/2023 Unknown By Mouth Daily 1 CAPSULE 3802303 RxNorm 1 CAPSULE By Mouth Daily Fluticasone 0.05MG/1Actuati on Nasal [place] 03/12/2023 Unknown Nasal Daily 1 Sprays 2735145 RxNorm 1 Spr ays Nasal Daily Azithromycin 500MG Oral Tablet 06/04/2024 Unknown By Mouth x1 NOW 2 TABLET 581193 RxNorm 2 TABLET By Mouth x1 NOW [...] Status Code Code System SEASONAL ALLERGY active 906740964 SNO MED-CT FAMILY PLANNING 06/20/2020 active 743141165 SNO MED-CT BITE OF INSECT active 732476805 SNOME D-CT ES OF VAGINA 08/07/2022 active 74325481 S NOMED-CT MENORRHAGIA active 556355263 SNOMED-C T PAINFUL NECK active 07743980 SNOMED- CT ADHD OF CHILDHOOD 07/22/2019 resolved 155034841 S NOMED-CT SEASONAL NASAL ALLERGY 07/22/2019 resolved 488171 001 SNOMED-CT HISTORY OF [place] 07/22/2019 resolved 6386283 08 SNOMED-CT Allergies and Adverse Reactions Allergy Substance Reaction Severity Start Date Concern Status Co de Code System Active seasonal allergies Active No Known Drug Allergies Active 609432332 SNOMED-CT No Known Drug Allergies Active 589003465 SNOMED-CT Plan of Treatment Description Due Date Details Instructions DEPRESSION SCREENING DUE 06/20/2021 Personal Care Team Section Performer Name Performer Role Active Date Inactive David mccallum
--- OUTSIDE RECORDS SUMMARY | 2025-01-21 18:25 | XMS_ITS ---
Author Organization Unknown Address [address] [place] [phone] Phone Care Team Providers Care Personal Counselor Name Role Phone JOSUE FULTON Attending Unavailable [...] MICR O - Collect Date/Time: 02/20/2023 18:44 [facility] ID: [id number] [address] [place] [address], [phone] LOINC: Test Value Unit Reference Range Code [...] TEST - Colle ct Date/Time: 02/20/2023 18:43 [facility] ID: [id number] [address] [place] [address], [phone] LOINC: Test Value Unit Reference Range Code Code System Flag TEST PERFORMED URINE PREG (URINE) NEGATIVE LOT#: [id number] EXP DATE: 2023-12-11 QC: ACCEPTABLE Social History Type Status Start Date End Date Code Code Syst em Smoking History Never smoker (Never Smoked) 204376647 SNOMED CT Sex Female Sexual Orientation Straight or Heterosexual 67185272 SNOMED CT Gender Identity Female 64365655930591 [address] Vital Signs Vital Sign Value Unit Barron Value Barron Unit Date/Time Recent/Initial? Code Code System Body Mass Index 24.50 kg/m2 02/20/2023 18:36 Initial 03418 -5 [facility] Body Mass Index Percentile 77 % 02/20/2023 18:36 Initial 73439 -9 [facility] Systolic Blood Pressure 112 mm[Hg] 02/20/2023 18:36 Initial 8480- 6 [facility] Diastolic Blood Pressure 70 mm[Hg] 02/20/2023 18:36 Initial 8462- 4 [facility] Body Surface Area 1.85 m2 02/20/2023 18:36 Initial 3140- 1 [facility] Height 171.450 0 cm 67.50 in 02/20/2023 18:36 Initial 8302- 2 [facility] O2 Saturation 98 % 2022 18:36 Initial 11533 -5 [facility] Pulse 91.0 /min 02/20/2023 18:36 Initial 8867- 4 [facility] Temperature 37.2 Antonella 98.9 F 02/21/20 18:36 Initial 8310- 5 [facility] Weight 72.03 kg 158.80 lbs 02/20/2023 18:36 Initial 11372 -7 [facility] Medications Medication Start Date End Date Route Frequency Dose Code Code System Medication Instructions Home Meds Medrol Dosepak 4MG Oral Tablet 12/25/2022 02/20/2023 By Mouth As Directed 1 PACK 858321 RxNorm 1 PACK By Mouth As Directed Methocarbamol 750MG Oral Tablet 12/25/2022 03/12/2023 By Mouth As needed every 8 hr 810310 RxNorm 1-2 TABLET By Mouth As needed every 8 hr [place]-28 30 MCG-0.15 MG; NA Oral Tablet 12/25/2022 03/12/2023 By Mouth Daily 1 TABLET 000568 RxNorm 1 TABLET By Mouth Daily Macrobid 100MG Oral Capsule 02/20/2023 03/12/2023 By mouth Twice a day 1 TABLET 601205 RxNorm 1 TABLET By mouth Twice a day X 7 DAYS Pyridium 100MG Oral Tablet 02/20/2023 03/12/2023 By mouth As needed every 8 hr 1 TABLET 4701354 RxNorm 1 TABLET By mouth As needed every 8 hr for urinary pain ZyrTEC Allergy 10MG Oral Capsule, Liquid Filled 03/12/2023 Unknown By Mouth Daily 1 CAPSULE 0674963 RxNorm 1 CAPSULE By Mouth Daily Fluticasone 0.05MG/1Actuati on Nasal [place] 03/12/2023 Unknown Nasal Daily 1 Sprays 5900412 RxNorm 1 Spr ays Nasal Daily Azithromycin 500MG Oral Tablet 06/04/2024 Unknown By Mouth x1 NOW 2 TABLET 564898 RxNorm 2 TABLET By Mouth x1 NOW [...] Status Code Code System SEASONAL ALLERGY active 997603123 SNO MED-CT FAMILY PLANNING 06/20/2020 active 534456461 SNO MED-CT BITE OF INSECT active 606827446 SNOME D-CT ES OF VAGINA 08/07/2022 active 86778723 S NOMED-CT MENORRHAGIA active 638807827 SNOMED-C T PAINFUL NECK active 89358666 SNOMED- CT ADHD OF CHILDHOOD 07/22/2019 resolved 438754140 S NOMED-CT SEASONAL NASAL ALLERGY 07/22/2019 resolved 923066 001 SNOMED-CT HISTORY OF [place] 07/22/2019 resolved 6155911 08 SNOMED-CT Allergies and Adverse Reactions Allergy Substance Reaction Severity Start Date Concern Status Co de Code System Active seasonal allergies Active No Known Drug Allergies Active 786800868 SNOMED-CT No Known Drug Allergies Active 858377233 SNOMED-CT Plan of Treatment Description Due Date Details Instructions DEPRESSION SCREENING DUE 06/20/2021 Future Order Description Future Order Date Futu re Order Loinc: CULTURE URINE 02/20/2023 LOINC: 630-4 TRICHOMONAS VAGINALIS FEMALE RNA QUAL LOINC: 63061-4 GC/CHLAMYDIA PCR [place] 02/20/2023 LOINC: 448 06-8 CULTURE YEAST, WITH IDENTIFICATION 02/20/2023 LOINC: 88266-0 BACTERIAL VAGINOSIS RAPID TEST 02/20/2023 LOINC: 6410-5 Encounters Encounter Diagnosis Start Date Code Code Sys tem Urinary tract infectious disease 02/20/2023 86651948 SNOMED-CT Personal Care Team Section Performer Name Performer Role Active Date Inactive Da te Progress Notes [facility] 02/20/2023 19:27 Admission Date/Time: 02/20/2023 18:07 Convenient [...] up. This examination was transcribed using the [employer] voice recognition system without human professor of business administration. In an effort to expedite patient care, this report has not been adjusted for typographical, or medical or syntax by a trained pesticide use medical coordinator. Allergy Table Allergen Type Reaction seasonal allergies [...] NEGATIVE 02/20/2023 18:38 02/20/2023 18:43 final LOT#: [id number] 02/20/2023 18:38 02/20/2023 18:43 final EXP DATE: [...] day X 7 DAYS 02/20/2023 JOSUE FULTON [place]-28 30 MCG-0.15 MG; NA Oral Tablet 1 TABLET By Mouth Daily 12/25/2022 Blanco Gallego Methocarbamol 750MG Oral Tablet 1-2 TABLET By Mouth As needed every 8 hr 12/25/2022 Blanco Gallego
--- OUTSIDE RECORDS SUMMARY | 2025-01-21 18:25 | XMS_ITS ---
Author Organization Unknown Address [address], [place] [phone] Phone Care Team Providers Care Fuel Verification Technician Name Role Phone mattyKlausSHERMAN Machado Social History Type Status Start Date End Date Code Code Syst em Smoking History Never smoker (Never Smoked) 377123126 SNOMED CT Sex Female Sexual Orientation Straight or Heterosexual 95839552 SNOMED CT Gender Identity Female [id number] [address] Medications Medication Start Date End Date Route Frequency Dose Code Code System Medication Instructions Home Meds ZyrTEC Allergy 10MG Oral Capsule, Liquid Filled 03/12/2023 Unknown By Mouth Daily 1 CAPSULE 6379452 RxNorm 1 CAPSULE By Mouth Daily Fluticasone 0.05MG/1Actuatio n Nasal [place] 03/12/2023 Unknown Nasal Daily 1 Sprays 9817193 RxNorm 1 Spra ys Nasal Daily Azithromycin 500MG Oral Tablet 06/04/2024 Unknown By Mouth x1 NOW 2 TABLET 261024 RxNorm 2 TABLET By Mouth x1 NOW [...] Status Code Code System SEASONAL ALLERGY active 143546303 SNO MED-CT FAMILY PLANNING 06/20/2020 active 095071014 SNO MED-CT BITE OF INSECT active 883034918 SNOME D-CT ES OF VAGINA 08/07/2022 active 20133634 S NOMED-CT MENORRHAGIA active 710596699 SNOMED-C T PAINFUL NECK active 01970411 SNOMED- CT ADHD OF CHILDHOOD 07/22/2019 resolved 324729115 S NOMED-CT SEASONAL NASAL ALLERGY 07/22/2019 resolved 163826 001 SNOMED-CT HISTORY OF [place] 07/22/2019 resolved 1124199 08 SNOMED-CT Allergies and Adverse Reactions Allergy Substance Reaction Severity Start Date Concern Status Co de Code System Active seasonal allergies Active No Known Drug Allergies Active 850094764 SNOMED-CT No Known Drug Allergies Active 105613051 SNOMED-CT Plan of Treatment Description Due Date Details Instructions DEPRESSION SCREENING DUE 06/20/2021 Encounters Encounter Diagnosis Start Date Code Code Sys tem Dysuria 06/03/2024 53182248 SNOMED-CT Personal Care Team Section Performer Name Performer Role Active Date Inactive Da te
--- OUTSIDE RECORDS SUMMARY | 2025-01-21 18:25 | XMS_ITS ---
Author Organization Unknown Address [address] [place] [phone] Phone Care Team Providers Care Office Chair Assembler Name Role Phone Blanco Gallego Attending Unavailable [...] ANTIGEN - Collec t Date/Time: 03/12/2023 14:51 [facility] ID: [id number] [address] [place], [place], [address] LOINC: 6556-5 Test Value Unit Reference Range Code Code System Flag COVID RAPID ANTI NEGATIVE NORMAL: NEGATIVE LOT#: [id number] Exp Date: 12/07/2023 QC: ACCEPTABLE STREP A SCREEN - Collect Sha e/Time: 03/12/2023 14:50 [facility] ID: [id number] [address] [place], [place], [address] LOINC: 6556-5 Test Value Unit Reference Range Code Code System Flag STREP SCREEN NEGATIVE NORMAL: NEGATIVE 6556-5 LOINC Lot#: [id number] Exp Date: 04/10/2024 QC STREP ACCEPTABLE Social History Type Status Start Date End Date Code Code Syst em Smoking History Never smoker (Never Smoked) 033672481 SNOMED CT Sex Female Sexual Orientation Straight or Heterosexual 70210007 SNOMED CT Gender Identity Female [id number] [address] Vital Signs Vital Sign Value Unit [place] Value [place] Unit Date/Time Recent/Initial? Code Code System Body Mass Index 23.57 kg/m2 03/12/2023 14:40 Initial 17411 -5 LOINC Body Mass Index Percentile 71 % 03/12/2023 14:40 Initial 06828 -9 LOINC Systolic Blood Pressure 100 mm[Hg] 03/12/2023 14:40 Initial 8480- 6 LOINC Diastolic Blood Pressure 68 mm[Hg] 03/12/2023 14:40 Initial 8462- 4 LOINC Body Surface Area 1.84 m2 03/12/2023 14:40 Initial 3140- 1 LOINC Height 172.720 0 cm 68.00 in 03/12/2023 14:40 Initial 8302- 2 [facility] O2 Saturation 95 % 2022 14:40 Initial 06995 -5 [facility] Pulse 56.0 /min 03/12/2023 14:40 Initial 8867- 4 [facility] Respiration 16 /min 03/12/20 14:40 Initial 9279- 1 [facility] Temperature 37.5 Antonella 99.5 F 03/12/20 14:40 Initial 8310- 5 [facility] Weight 70.31 kg 155.00 lbs 03/12/2023 14:40 Initial 92563 -7 [facility] Medications Medication Start Date End Date Route Frequency Dose Code Code System Medication Instructions Home Meds Methocarbamol 750MG Oral Tablet 12/25/2022 03/12/2023 By Mouth As needed every 8 hr 673174 RxNorm 1-2 TABLET By Mouth As needed every 8 hr [place]-28 30 MCG-0.15 MG; NA Oral Tablet 12/25/2022 03/12/2023 By Mouth Daily 1 TABLET 936916 RxNorm 1 TABLET By Mouth Daily Macrobid 100MG Oral Capsule 02/20/2023 03/12/2023 By mouth Twice a day 1 TABLET 372837 RxNorm 1 TABLET By mouth Twice a day X 7 DAYS Pyridium 100MG Oral Tablet 02/20/2023 03/12/2023 By mouth As needed every 8 hr 1 TABLET 0869188 RxNorm 1 TABLET By mouth As needed every 8 hr for urinary pain ZyrTEC Allergy 10MG Oral Capsule, Liquid Filled 03/12/2023 Unknown By Mouth Daily 1 CAPSULE 5820421 RxNorm 1 CAPSULE By Mouth Daily Fluticasone 0.05MG/1Actuati on Nasal [place] 03/12/2023 Unknown Nasal Daily 1 Sprays 0011023 RxNorm 1 Spr ays Nasal Daily Azithromycin 500MG Oral Tablet 06/04/2024 Unknown By Mouth x1 NOW 2 TABLET 038148 RxNorm 2 TABLET By Mouth x1 NOW [...] Status Code Code System SEASONAL ALLERGY active 634549226 SNO MED-CT FAMILY PLANNING 06/20/2020 active 848832937 SNO MED-CT BITE OF INSECT active 931154256 SNOME D-CT ES OF VAGINA 08/07/2022 active 26933115 S NOMED-CT MENORRHAGIA active 373040107 SNOMED-C T PAINFUL NECK active 23179582 SNOMED- CT ADHD OF CHILDHOOD 07/22/2019 resolved 158916369 S NOMED-CT SEASONAL NASAL ALLERGY 07/22/2019 resolved 575520 001 SNOMED-CT HISTORY OF CHICKENPOX 07/22/2019 resolved 4354226 08 SNOMED-CT Allergies and Adverse Reactions Allergy Substance Reaction Severity Start Date Concern Status Co de Code System Active seasonal allergies Active No Known Drug Allergies Active 217908144 SNOMED-CT No Known Drug Allergies Active 101992103 SNOMED-CT Plan of Treatment Description Due Date Details Instructions DEPRESSION SCREENING DUE 06/20/2021 Encounters Encounter Diagnosis Start Date Code Code Sys tem Seasonal allergic rhinitis 03/12/2023 030059517 S NOMED-CT Personal Care Team Section Performer Name Performer Role Active Date Inactive Da te Progress Notes [facility] 03/12/2023 15:06 Admission Date/Time: 03/12/2023 11:24 SMITA [...] is an 17 yo female presents to [facility] today for sore throat and [...] Referring and communicating with other health career resource technician x Obtaining and/or reviewing separately obtained history Independent interpretation of results and communicating results to the patient/family/caregiver x Performing a medically appropriate examination/evaluation Care coordination (not reported separately) x Discharge instructions given to patient. Ordered & Completed Meds Table: No Current Medications Available Discharge Med List: Discharge Medications: No Discharge Medications Available [facility] 03/12/2023 15:20 Current Date/Time: 03/12/2023 15:03 Patient Name: NELA MANZANARES was seen at [facility] [phone] on Date of Service: 03/12/2023 . They may return to school on 03/13/2023 with No restrictions . .
--- OUTSIDE RECORDS SUMMARY | 2025-01-21 18:25 | XMS_ITS | Clinical Summary ---
Author Organization [facility] Address [address] [place] [address] Care Team Providers Care Barrel Assembler Name Role Phone Faustino Matta MD Primary Care Provider [phone] Source Comments [facility],non-owned Affiliates and Associated Physician Practices is amultiple site organization consisting of ambulatory clinics and hospital sitesin [place], [place], [place] and [place]. This disclosure is being madepursuant to the Care Everywhere program and may not contain all information available regarding this patient. Last updated 18.[facility] Allergies No known active allergies Medications [...] Type Department Care Team Description 12/15/2024 Telephone [facility] [address] [place] [address] Akosua Burns Appointment 11/24/2024 Orders Only [facility] - SIGN HANGER [address] [place] [address] Jennifer Paul MD 11/19/2024 1:00 PM SUPERVISOR FELTING - 11/19/2024 11:59 PM SUPERVISOR FELTING Hospital Encounter [facility] [address] [place] [address] Tiff Arriaza MD Discharge Disposition: Home or Self Care 11/03/2024 Orders Only [facility] [address] [place] [address] Britany Garcia, ACCOUNTANCY PROFESSOR-HERB DIGGER Abnormal genetic test in ; Abnormal ultrasound 11/02/2024 Orders Only [facility] [address] [place] [address] Shania Mcintosh RN 11/02/2024 Telephone [facility] [address] [place] [address] Britany Garcia, ACCOUNTANCY PROFESSOR-HERB DIGGER LABS ONLY 10/26/2024 Telephone [facility] [address] [place] [address] Akosua Burns Appointment from Last 3 Months [...] CYTOMEGALOVIRUS AB IGG AVIDITY 11/24/2024 2:44 PM SUPERVISOR FELTING SONOGRAM - COMPLETE Routine 11/19/2024 1 :11 PM SUPERVISOR FELTING Encounter for ultrasound (HCC) Rh negative, antepartum (HCC) Rubella non-immune status, antepartum (HCC) Primigravida, antepartum ([facility]) 28 weeks gestation of ([facility]) 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 It has not been cleared or approved by FDA. This assay has been validated pursuant to the CLIA regulations and is used for clinical purposes. 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 [...] 3 lb 8 oz EFW by Hadlock ([id number]) appropriate Growth Overview Exam date [place] BPD [...] redraw of CMV Avidity Coding ====== Procedures 38694: US Preg Uterus Follow Up [employer] PACS Anatomical Region Laterality Modality Other 11/19/2024 1:11 PM SUPERVISOR FELTING Jonny Cabrera DO [facility] ORDERABLES * (ABNORMAL) CYTOMEGALOVIRUS ANTIBODY IGG BLOOD (11/10/2024 1:50 PM SUPERVISOR FELTING) Cytomegalovirus Antibody IgG >10.00(H) U/mL [place] Comment: U/mL Interpretation ----- <0.60 Negative 0.60-0.69 Equivocal > or = 0.70 Positive A positive result indicates that the patient has antibody to CMV. It does not differentiate between an active or past infection. Test Performed at: [facility] [address] [facility] [place] [address] PINEDA TAM MD 11/10/2024 1:50 PM SUPERVISOR FELTING 11/10/2024 1:53 PM SUPERVISOR FELTING Britany Garcia APRN-HERB DIGGER LAB - CHEMI STRY ORDERABLES [facility] [address] [place] [address] from Last 3 Months Care Teams Barrel Assembler Relationship Specialty Start Date End Date Faustino Matta MD [address] [address] PCP - General Pediatrics 08/05/12
--- OUTSIDE RECORDS SUMMARY | 2025-01-21 18:25 | XMS_ITS ---
Author Organization Unknown Address [address], [place] [phone] Phone Care Team Providers Care Awning Craftsperson Name Role Phone JOSUE FULTON EDMOND Attending Unavailable Results CULTURE YEAST, WITH IDENTIFI CATION - Collect Date/Time: 02/20/2023 18:42 [facility] ID: [id number] [address], [place], [address] LOINC: 5048-4 Test Value Unit Reference Range Code Code System Flag SOURCE: VAGINAL STATUS: FINAL ISOLATE 1: Margoth albicans A TRICHOMONAS VAGINALIS FEMALE RNA QUAL - Collect Date/Time: 02/20/2023 18:40 [facility] ID: [id number] [address], [place], [address] LOINC: 55916-7 Test Value Unit Reference Range Code Code System Flag TRICHOMONAS VAGINALISRNA, QL TMA NOT DETECTED NOT DETECTED GC/CHLAMYDIA PCR [facility] ct Date/Time: 02/20/2023 18:40 [facility] ID: [id number] [address], [place], [address] LOINC: 5048-4 Test Value Unit Reference Range Code Code System Flag GONORRHEA PCR NOT DETECTED NORMAL: NOT DETECTED CHLAMYDIA PCR NOT DETECTED NORMAL: NOT DETECTED BACTERIAL VAGINOSIS RAPID TE ST - Collect Date/Time: 02/20/2023 18:40 [facility] ID: [id number] [address], [place], [address] LOINC: 6410-5 Test Value Unit Reference Range Code Code System Flag BACTERIAL VAGINOSIS NEGATIVE NORMAL: NEGATIVE Social History Type Status Start Date End Date Code Code Syst em Smoking History Never smoker (Never Smoked) 982350311 SNOMED CT Sex Female Sexual Orientation Straight or Heterosexual SNOMED CT Gender Identity Female 76603010981541 [address] Medications Medication Start Date End Date Route Frequency Dose Code Code System Medication Instructions Home Meds Methocarbamol 750MG Oral Tablet 12/25/2022 03/12/2023 By Mouth As needed every 8 hr 801348 RxNorm 1-2 TABLET By Mouth As needed every 8 hr [place]-28 30 MCG-0.15 MG; NA Oral Tablet 12/25/2022 03/12/2023 By Mouth Daily 1 TABLET 302692 RxNorm 1 TABLET By Mouth Daily Macrobid 100MG Oral Capsule 02/20/2023 03/12/2023 By mouth Twice a day 1 TABLET 559764 RxNorm 1 TABLET By mouth Twice a day X 7 DAYS Pyridium 100MG Oral Tablet 02/20/2023 03/12/2023 By mouth As needed every 8 hr 1 TABLET 2932448 RxNorm 1 TABLET By mouth As needed every 8 hr for urinary pain ZyrTEC Allergy 10MG Oral Capsule, Liquid Filled 03/12/2023 Unknown By Mouth Daily 1 CAPSULE 4362296 RxNorm 1 CAPSULE By Mouth Daily Fluticasone 0.05MG/1Actuati on Nasal [place] 03/12/2023 Unknown Nasal Daily 1 Sprays 5772363 RxNorm 1 Spr ays Nasal Daily Azithromycin 500MG Oral Tablet 06/04/2024 Unknown By Mouth x1 NOW 2 TABLET 781875 RxNorm 2 TABLET By Mouth x1 NOW [...] Status Code Code System SEASONAL ALLERGY active 750631542 SNO MED-CT FAMILY PLANNING 06/20/2020 active 487056033 SNO MED-CT BITE OF INSECT active 208439805 SNOME D-CT MARGOTH OF VAGINA 08/07/2022 active 78879493 S NOMED-CT MENORRHAGIA active 949865608 SNOMED-C T PAINFUL NECK active 30997948 SNOMED- CT ADHD OF CHILDHOOD 07/22/2019 resolved 493014079 S NOMED-CT SEASONAL NASAL ALLERGY 07/22/2019 resolved 178033 001 SNOMED-CT HISTORY OF CHICKENPOX 07/22/2019 resolved 0712900 08 SNOMED-CT Allergies and Adverse Reactions Allergy Substance Reaction Severity Start Date Concern Status Co de Code System Active seasonal allergies Active No Known Drug Allergies Active 468633503 SNOMED-CT No Known Drug Allergies Active 146804796 SNOMED-CT Plan of Treatment Description Due Date Details Instructions DEPRESSION SCREENING DUE 06/20/2021 Encounters Encounter Diagnosis Start Date Code Code Sys tem Dysuria 02/20/2023 53925893 SNOMED-CT Personal Care Team Section Performer Name Performer Role Active Date Inactive David mccallum
--- OUTSIDE RECORDS SUMMARY | 2025-01-21 18:25 | XMS_ITS | Referral Summary ---
Author Organization [facility] Address [address] [place] [address] Care Team Providers Care Mortgage Servicing Specialist Name Role Phone Faustino Matta MD Primary Care Provider [phone] Source Comments [facility],non-owned Affiliates and Associated Physician Practices is amultiple site organization consisting of ambulatory clinics and hospital sitesin [place], [place], [place] and [place]. This disclosure is being madepursuant to the Care Everywhere program and may not contain all information available regarding this patient. Last updated 18.[facility] Encounters Date Type Department Care Team Description 12/15/2024 Telephone [facility] [address] [place] [address] Akosua Burns Appointment 11/24/2024 Orders Only [facility] - RAKING MACHINE OPERATOR [address] [place] [phone] Jennifer Paul MD 11/19/2024 1:00 PM CATCHER PLUG - 11/19/2024 11:59 PM CATCHER PLUG Hospital Encounter [facility] [address] [place] [address] Tiff Arriaza MD Discharge Disposition: Home or Self Care 11/03/2024 Orders Only [facility] [address] [place] [address] Britany Gracia, COMPRESSED GAS PLANT WORKER-SUBSTATION OPERATOR HELPER Abnormal genetic test in ; Abnormal ultrasound 11/02/2024 Orders Only [facility] [place] [address] Shania Mcintosh RN 11/02/2024 Telephone [facility] [address] [place] [address] Britany Garcia, COMPRESSED GAS PLANT WORKER-SUBSTATION OPERATOR HELPER LABS ONLY 10/26/2024 Telephone [facility] [address] [place] [address] Akosua Burns Appointment from Last 3 Months [...] CYTOMEGALOVIRUS AB IGG AVIDITY 11/24/2024 2:44 PM CATCHER PLUG SONOGRAM - COMPLETE Routine 11/19/2024 1 :11 PM CATCHER PLUG Encounter for ultrasound (HCC) Rh negative, antepartum (HCC) Rubella non-immune status, antepartum (HCC) Primigravida, antepartum ([facility]) 28 weeks gestation of ([facility]) 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 It has not been cleared or approved by FDA. This assay has been validated pursuant to the CLIA regulations and is used for clinical purposes. For additional information, please refer to http://education.Canvas.PlayPhone/faq/MUP236 (This link is being provided for informational/ educational purposes only.) Test Performed at: [employer]/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 [...] 3 lb 8 oz EFW by Hadlock ([id number]-FL) appropriate Growth Overview Exam date [place] BPD [...] redraw of CMV Avidity Coding ====== Procedures 83106: US Preg Uterus Follow Up [facility] PACS Anatomical Region Laterality Modality Other 11/19/2024 1:11 PM CATCHER PLUG Jonny Ruizcherie [facility] ORDERABLES * (ABNORMAL) CYTOMEGALOVIRUS ANTIBODY IGG BLOOD (11/10/2024 1:50 PM CATCHER PLUG) Cytomegalovirus Antibody IgG >10.00(H) U/mL [facility] Comment: U/mL Interpretation ----- <0.60 Negative 0.60-0.69 Equivocal > or = 0.70 Positive A positive result indicates that the patient has antibody to CMV. It does not differentiate between an active or past infection. Test Performed at: [facility] [address] [place] [address] PINEDA TAM MD 11/10/2024 1:50 PM CATCHER PLUG 11/10/2024 1:53 PM CATCHER PLUG Britany Garcia COMPRESSED GAS PLANT WORKER-SUBSTATION OPERATOR HELPER LAB - CHEMI STRY ORDERABLES [facility] [address] [place] [address] from Last 3 Months Care Teams Mortgage Servicing Specialist Relationship Specialty Start Date End Date Faustino Matta MD [address] [address] PCP - General Pediatrics 08/05/12
--- OUTSIDE RECORDS SUMMARY | 2025-01-21 18:25 | XMS_ITS ---
Author Organization Unknown Address [address] [place] [phone] Phone Care Team Providers Care Warehouse Receiver Name Role Phone Blanco Gallego Attending Unavailable [...] em Smoking History Never smoker (Never Smoked) 138313718 SNOMED CT Sex Female Sexual Orientation Straight or Heterosexual 44116591 SNOMED CT Gender Identity Female 82345182204353 [address] Vital Signs Vital Sign Value Unit [place] Value [place] Unit Date/Time Recent/Initial? Code Code System Body Mass Index 21.85 kg/m2 06/07/2022 14:23 Initial 66436 -5 [facility] Body Mass Index Percentile 57 % 06/07/2022 14:23 Initial 75278 -9 [facility] Systolic Blood Pressure 118 mm[Hg] 06/07/2022 14:23 Initial 8480- 6 [facility] Diastolic Blood Pressure 72 mm[Hg] 06/07/2022 14:23 Initial 8462- 4 [facility] Body Surface Area 1.75 m2 06/07/2022 14:23 Initial 3140- 1 [facility] Height 171.450 0 cm 67.50 in 06/07/2022 14:23 Initial 8302- 2 [facility] O2 Saturation 99 % 2021 14:23 Initial 20299 -5 [facility] Pulse 107.0 /min 06/07/2022 14:23 Initial 8867- 4 [facility] Respiration 20 /min 06/07/20 14:23 Initial 9279- 1 [facility] Temperature 36.6 Antonella 97.8 F 06/07/20 14:23 Initial 8310- 5 [facility] Weight 64.23 kg 141.60 lbs 06/07/2022 14:23 Initial 13580 -7 [facility] Medications Medication Start Date End Date Route Frequency Dose Code Code System Medication Instructions Home Meds predniSONE 50MG Oral Tablet 06/07/2022 07/31/2022 By Mouth Daily 1 TABLET 038336 RxNorm 1 TABLET By Mouth Daily 30MCG-0.15MG-NA Oral Tablet 06/07/2022 09/12/2022 By Mouth Daily 1 TABLET 988833 RxNorm 1 TABLET By Mouth Daily Diflucan 150MG Oral Tablet 08/07/2022 09/12/2022 By Mouth x1 NOW 1 TABLET 960647 RxNorm 1 TABLET By Mouth x1 NOW FOR MARCH REPEAT IN 72 HOURS Radha 28 3MG-0.02MG Oral Tablet 09/12/2022 12/25/2022 By Mouth Once a day 1 TABLET RxNorm 1 TABLET By Mouth Once a day Medrol Dosepak 4MG Oral Tablet 12/25/2022 02/20/2023 By Mouth As Directed 1 PACK 408634 RxNorm 1 PACK By Mouth As Directed Methocarbamol 750MG Oral Tablet 12/25/2022 03/12/2023 By Mouth As needed every 8 hr 070740 RxNorm 1-2 TABLET By Mouth As needed every 8 hr Sargents-28 30 MCG-0.15 MG; NA Oral Tablet 12/25/2022 03/12/2023 By Mouth Daily 1 TABLET 475021 RxNorm 1 TABLET By Mouth Daily Macrobid 100MG Oral Capsule 02/20/2023 03/12/2023 By mouth Twice a day 1 TABLET 471485 RxNorm 1 TABLET By mouth Twice a day X 7 DAYS Pyridium 100MG Oral Tablet 02/20/2023 03/12/2023 By mouth As needed every 8 hr 1 TABLET 5832262 RxNorm 1 TABLET By mouth As needed every 8 hr for urinary pain ZyrTEC Allergy 10MG Oral Capsule, Liquid Filled 03/12/2023 Unknown By Mouth Daily 1 CAPSULE 1863266 RxNorm 1 CAPSULE By Mouth Daily Fluticasone 0.05MG/1Actuati on Nasal [place] 03/12/2023 Unknown Nasal Daily 1 Sprays 6811042 RxNorm 1 Spr ays Nasal Daily Azithromycin 500MG Oral Tablet 06/04/2024 Unknown By Mouth x1 NOW 2 TABLET 196831 RxNorm 2 TABLET By Mouth x1 NOW [...] Status Code Code System SEASONAL ALLERGY active 092731270 SNO MED-CT FAMILY PLANNING 06/20/2020 active 357404001 SNO MED-CT BITE OF INSECT active 751040044 SNOME D-CT ES OF VAGINA 08/07/2022 active 73559234 S NOMED-CT MENORRHAGIA active 461861730 SNOMED-C T PAINFUL NECK active 81645922 SNOMED- CT ADHD OF CHILDHOOD 07/22/2019 resolved 603441143 S NOMED-CT SEASONAL NASAL ALLERGY 07/22/2019 resolved 422431 001 SNOMED-CT HISTORY OF CHICKENPOX 07/22/2019 resolved 2495097 08 SNOMED-CT Allergies and Adverse Reactions Allergy Substance Reaction Severity Start Date Concern Status Co de Code System Active seasonal allergies Active No Known Drug Allergies Active 930832573 SNOMED-CT No Known Drug Allergies Active 824485843 SNOMED-CT Plan of Treatment Description Due Date Details Instructions DEPRESSION SCREENING DUE 06/20/2021 Encounters Encounter Diagnosis Start Date Code Code Sys tem Well child visit 06/07/2022 731690774 SNOMED-CT Personal Care Team Section Performer Name Performer Role Active Date Inactive Da te Progress Notes [facility] 06/07/2022 15:22 All Demographics Patient Name Age Sex Visit Number Admission Date/Time Attending Physician Date of Service Room and Bed Emergency Contact NELA MANZANARES 2005 16 years Female [id number] 06/07/2022 14:22 Julián Simeon 06/07/2022 402 06/07/2022 14:25 Accompanied By: Parent Parent, mother X. Parent, father Guardian Relative ambulatory services representative Caregiver Family Protective services Friend Healthcare provider Law enforcement Desktop Administrator / EMS Spouse / SO Other: Preferred Language: Italian. Vital Signs: This Visit Date/Time BP (mm/Hg) [...] environment active No Known Drug Allergies medication [id number] Nutrition X. Daily fruits and vegetables Iron [...] ALL CAPITALIZED = Focus area for this [facility] Visit Constitutional: None. EYES: None. Head, EARS, NOSE, AND THROAT: None. CARDIOVASCULAR: None. RESPIRATORY: None. GASTROINTESTINAL: None. GENITOURINARY: None. MUSCULOSKELETAL: None. SKIN: None. NEUROLOGICAL: None. Other: None. PHYSICAL EXAMINATION ALL CAPITALIZED and = Focus Area for this [facility] Visit GENERAL: x Well-appearing adolescent x Normal [...] Record reviewed Up-to-date for age Administered Today: [place] Screening Depression Screening (annually) Screening Tool Used: [...] control methods and will start patient on Sargents. Patient to notify office if she is having any side effects. Patient states she is having anxiety, offered multiple options for managing anxiety, patient declines at this time.
--- OUTSIDE RECORDS SUMMARY | 2025-01-21 18:26 | XMS_ITS | Patient Health Summary ---
Author Organization [facility] Address [address] [place] [address] Care Team Providers Care Passenger Car Inspector Name Role Phone Faustino Matta MD Primary Care Provider [phone] Note from [facility],non-owned Affiliates and Associated Physician Practices is amultiple site organization consisting of ambulatory clinics and hospital sitesin [place], [place], [place] and [place]. This disclosure is being madepursuant to the Care Everywhere program and may not contain all information available regarding this patient. Last updated 18.[facility] Allergies No known active allergies Medications [...] CYTOMEGALOVIRUS AB IGG AVIDITY (11/24/2024 2:44 PM LOCATION MAN) [facility] Cytomegalovirus Antibody IgG Avidity Index 0.90 [facility] [...] analytical performance characteristics have been determined by [employer]. It has not been cleared or approved by FDA. This assay has been validated pursuant to the CLIA regulations and is used for clinical purposes. For additional information, please refer to http://education.CDC Software/faq/OWV882 (This link is being provided for informational/ educational purposes only.) Test Performed at: [employer] [facility] [address] [place] [address] KWAKU SUMMERS MD,PHD,STARR 11/24/2024 2:44 PM LOCATION MAN 11/24/2024 2:45 PM LOCATION MAN Jennifer Paul MD LAB - SEROLOGY [facility] [address] [place] [address] * SONOGRAM - COMPLETE (11/19/2024 1:11 PM LOCATION MAN) Only the most recent of4 resultswithin the [...] 3 lb 8 oz EFW by Hadlock ([id number]-BR-[id number]-FL) appropriate Growth Overview Exam date [place] BPD [...] redraw of CMV Avidity Coding ====== Procedures 85311: US Preg Uterus Follow Up [employer] PACS Anatomical Region Laterality Modality Other 11/19/2024 1:11 PM LOCATION MAN Jonny Cabrera DO [facility] ORDERABLES * (ABNORMAL) CYTOMEGALOVIRUS ANTIBODY IGG BLOOD (11/10/2024 1:50 PM LOCATION MAN) Cytomegalovirus Antibody IgG >10.00(H) U/mL [facility] Comment: U/mL Interpretation ----- <0.60 Negative 0.60-0.69 Equivocal > or = 0.70 Positive A positive result indicates that the patient has antibody to CMV. It does not differentiate between an active or past infection. Test Performed at: [facility] [facility] [address] [place] [address] PINEDA TAM MD 11/10/2024 1:50 PM LOCATION MAN 11/10/2024 1:53 PM LOCATION MAN Britany Garcia APRN-[employer] LAB - CHEMI STRY ORDERABLES [facility] [address] [place] [address] Care Teams Passenger Car Inspector Relationship Specialty Start Date End Date Faustino Matta MD [address] [facility] [address] [place] [address] PCP - General Pediatrics 08/05/12
--- OUTSIDE RECORDS SUMMARY | 2025-01-21 18:26 | XMS_ITS ---
Author Organization Unknown Address [address] [place] [phone] Phone Care Team Providers Care Dietetic Technician Name Role Phone VIRAL Brody Attending Unavailable [...] MICR O - Collect Date/Time: 06/03/2024 15:21 [facility] ID: [id number] [address] [place] [address], [phone] LOINC: Test Value Unit Reference Range Code [...] em Smoking History Never smoker (Never Smoked) 750878650 SNOMED CT Sex Female Sexual Orientation Straight or Heterosexual 63612556 SNOMED CT Gender Identity Female [id number] Vital Signs Vital Sign Value Unit [place] Value [place] Unit Date/Time Recent/Initial? Code Code System Body Mass Index 25.85 kg/m2 06/03/2024 14:31 Initial 71879 -5 [facility] Body Mass Index Percentile 82 % 06/03/2024 14:31 Initial 10219 -9 [facility] Systolic Blood Pressure 118 mm[Hg] 06/03/2024 15:46 Most Recent 8480- 6 [facility] Diastolic Blood Pressure 82 mm[Hg] 06/03/2024 15:46 Most Recent 8462- 4 [facility] Systolic Blood Pressure 136 mm[Hg] 06/03/2024 14:31 Initial 8480- 6 [facility] Diastolic Blood Pressure 95 mm[Hg] 06/03/2024 14:31 Initial 8462- 4 [facility] Body Surface Area 1.92 m2 06/03/2024 14:31 Initial 3140- 1 [facility] Height 172.720 0 cm 68.00 in 06/03/2024 14:31 Initial 8302- 2 [facility] O2 Saturation 100 % 2023 14:31 Initial 57933 -5 [facility] Pulse 93.0 /min 06/03/2024 14:31 Initial 8867- 4 [facility] Temperature 36.7 Antonella 98.0 F 06/03/20 14:31 Initial 8310- 5 [facility] Weight 77.11 kg 170.00 lbs 06/03/2024 14:31 Initial 68944 -7 [facility] Medications Medication Start Date End Date Route Frequency Dose Code Code System Medication Instructions Home Meds ZyrTEC Allergy 10MG Oral Capsule, Liquid Filled 03/12/2023 Unknown By Mouth Daily 1 CAPSULE 0214022 RxNorm 1 CAPSULE By Mouth Daily Fluticasone 0.05MG/1Actuatio n Nasal [place] 03/12/2023 Unknown Nasal Daily 1 Sprays 9126728 RxNorm 1 Spra ys Nasal Daily Azithromycin 500MG Oral Tablet 06/04/2024 Unknown By Mouth x1 NOW 2 TABLET 553759 RxNorm 2 TABLET By Mouth x1 NOW [...] sex practices. 3. -Keep follow up with [facility] for next week. -Given handouts for [...] up. This examination was transcribed using the [employer] voice recognition system without a human industrial real estate agent. To expedite patient care, this report has not been adjusted for typographical, or medical, or syntax by a trained medical and scientific illustrator. Hospital Discharge Instructions Should you have any questions prior to discharge, please contact a member of your healthcare team. If you have left the hospital and have any questions, please contact your primary care physician. Reason For Referral No Data Found Problems Problem Start Date Resolved Date Status Code Code System SEASONAL ALLERGY active 442458222 SNO MED-CT FAMILY PLANNING 06/20/2020 active 359962235 SNO MED-CT BITE OF INSECT active 739237498 SNOME D-CT ES OF VAGINA 08/07/2022 active 49095895 S NOMED-CT MENORRHAGIA active 287559745 SNOMED-C T PAINFUL NECK active 06560259 SNOMED- CT ADHD OF CHILDHOOD 07/22/2019 resolved 647620258 S NOMED-CT SEASONAL NASAL ALLERGY 07/22/2019 resolved 705002 001 SNOMED-CT HISTORY OF CHICKENPOX 07/22/2019 resolved 1515084 08 SNOMED-CT Allergies and Adverse Reactions Allergy Substance Reaction Severity Start Date Concern Status Co de Code System Active seasonal allergies Active No Known Drug Allergies Active 368571806 SNOMED-CT No Known Drug Allergies Active 146891974 SNOMED-CT Plan of Treatment Description Due Date Details Instructions DEPRESSION SCREENING DUE 06/20/2021 Future Order Description Future Order Date Futu re Order Loinc: TRICHOMONAS VAGINALIS FEMALE RNA QUAL LOINC: 64454-8 GC PCR [facility] 06/03/2024 LOINC: 00885-9 CHLAMYDIA PCR [facility] 06/03/2024 LOINC: 26305- 5 BACTERIAL VAGINOSIS RAPID TEST 06/03/2024 LOINC: 6410-5 CULTURE YEAST, WITH IDENTIFICATION 06/03/2024 LOINC: 75961-2 Encounters Encounter Diagnosis Start Date Code Code Sys tem Acute vaginitis 06/03/2024 65012879 SNOMED-CT Personal Care Team Section Performer Name [...] April. She has an appointment scheduled with [facility] for an OBGYN next week. She [...] sex practices. 3. -Keep follow up with [facility] for next week. -Given handouts for [...] up. This examination was transcribed using the [employer] voice recognition system without a human industrial real estate agent. To expedite patient care, this report has not been adjusted for typographical, or medical, or syntax by a trained medical and scientific illustrator. Meds Given This Visit: Meds ordered and administered this visit: No Current Medications Available Discharge Med List: Discharge Medications Medication Special Instructions Start Date Prescribing Fluticasone 0.05MG/1Actuation Nasal [place] 1 Sprays Nasal Daily 03/12/2023 Blanco Gallego ZyrTEC Allergy 10MG Oral Capsule, Liquid Filled 1 CAPSULE By Mouth Daily 03/12/2023 Blanco Gallego
--- OUTSIDE RECORDS SUMMARY | 2025-01-21 18:26 | XMS_ITS ---
Author Organization Unknown Address [address], [place] [id number] Phone Care Team Providers Care Switch Operator Name Role Phone Sherrytita Opal Attending Unavailable Results BACTERIAL VAGINOSIS RAPID TE ST - Collect Date/Time: 07/31/2022 17:20 [facility] [id number] [address], [place], [phone] LOINC: 6410-5 Test Value Unit Reference Range Code Code System Flag BACTERIAL VAGINOSIS NEGATIVE NORMAL: NEGATIVE CULTURE YEAST, WITH IDENTIFI CATION - Collect Date/Time: 07/31/2022 17:19 [facility] [id number] [address], [place], [phone] LOINC: 5048-4 Test Value Unit Reference Range Code Code System Flag SOURCE: VAGINAL STATUS: FINAL ISOLATE 1: Margoth albicans A CULTURE: Culture in progress TRICHOMONAS VAGINALIS FEMALE RNA QUAL - Collect Date/Time: 07/31/2022 17:19 [facility] [id number] [address], [place], [phone] LOINC: 31517-1 Test Value Unit Reference Range Code Code System Flag TRICHOMONAS VAGINALISRNA, QL TMA NOT DETECTED NOT DETECTED CHLAMYDIA/GC URINE RNA, TMA APTIMA - Collect Date/Time: 07/31/2022 17:19 [facility] [id number] [address], [place], [phone] LOINC: 5048-4 Test Value Unit Reference Range Code Code System Flag CHLAMYDIA TRACHOMATISRNA, TMA, UROGENITAL NOT DETECTED NOT DETECTED NEISSERIA GONORRHOEAERNA, TMA, UROGENITAL NOT DETECTED NOT DETECTED Social History Type Status Start Date End Date Code Code Syst em Smoking History Never smoker (Never Smoked) 719494832 SNOMED CT Sex Female Sexual Orientation Straight or Heterosexual 39107412 SNOMED CT Gender Identity Female [id number] [address] Medications Medication Start Date End Date Route Frequency Dose Code Code System Medication Instructions Home Meds Anel-28 30MCG-0.15MG-NA Oral Tablet 06/07/2022 09/12/2022 By Mouth Daily 1 TABLET 554174 RxNorm 1 TABLET By Mouth Daily Diflucan 150MG Oral Tablet 08/07/2022 09/12/2022 By Mouth x1 NOW 1 TABLET 346319 RxNorm 1 TABLET By Mouth x1 NOW FOR MARCH REPEAT IN 72 HOURS Radha 28 3MG-0.02MG Oral Tablet 09/12/2022 12/25/2022 By Mouth Once a day 1 TABLET RxNorm 1 TABLET By Mouth Once a day Medrol Dosepak 4MG Oral Tablet 12/25/2022 02/20/2023 By Mouth As Directed 1 PACK 612801 RxNorm 1 PACK By Mouth As Directed Methocarbamol 750MG Oral Tablet 12/25/2022 03/12/2023 By Mouth As needed every 8 hr 572224 RxNorm 1-2 TABLET By Mouth As needed every 8 hr [place]-28 30 MCG-0.15 MG; NA Oral Tablet 12/25/2022 03/12/2023 By Mouth Daily 1 TABLET 354557 RxNorm 1 TABLET By Mouth Daily Macrobid 100MG Oral Capsule 02/20/2023 03/12/2023 By mouth Twice a day 1 TABLET 784253 RxNorm 1 TABLET By mouth Twice a day X 7 DAYS Pyridium 100MG Oral Tablet 02/20/2023 03/12/2023 By mouth As needed every 8 hr 1 TABLET 6121252 RxNorm 1 TABLET By mouth As needed every 8 hr for urinary pain ZyrTEC Allergy 10MG Oral Capsule, Liquid Filled 03/12/2023 Unknown By Mouth Daily 1 CAPSULE 1924417 RxNorm 1 CAPSULE By Mouth Daily Fluticasone 0.05MG/1Actuatio n Nasal [place] 03/12/2023 Unknown Nasal Daily 1 Sprays 2959575 RxNorm 1 Spra ys Nasal Daily Azithromycin 500MG Oral Tablet 06/04/2024 Unknown By Mouth x1 NOW 2 TABLET 739983 RxNorm 2 TABLET By Mouth x1 NOW [...] Status Code Code System SEASONAL ALLERGY active 144578121 SNO MED-CT FAMILY PLANNING 06/20/2020 active 396019724 SNO MED-CT BITE OF INSECT active 123430995 SNOME D-CT MARGOTH OF VAGINA 08/07/2022 active 87433501 S NOMED-CT MENORRHAGIA active 007323708 SNOMED-C T PAINFUL NECK active 72386025 SNOMED- CT ADHD OF CHILDHOOD 07/22/2019 resolved 981848918 S NOMED-CT SEASONAL NASAL ALLERGY 07/22/2019 resolved 109978 001 SNOMED-CT HISTORY OF CHICKENPOX 07/22/2019 resolved 4335343 08 SNOMED-CT Allergies and Adverse Reactions Allergy Substance Reaction Severity Start Date Concern Status Co de Code System Active seasonal allergies Active No Known Drug Allergies Active 968274212 SNOMED-CT No Known Drug Allergies Active 670113865 SNOMED-CT Plan of Treatment Description Due Date Details Instructions DEPRESSION SCREENING DUE 06/20/2021 Encounters Encounter Diagnosis Start Date Code Code Sys tem Noninflammatory disorder of the vagina 07/31/2022 22 748957 SNOMED-CT Personal Care Team Section Performer Name Performer Role Active Date Inactive Da te
[2025-01-21 18:27] VITALS: BMI 28.5
--- OUTSIDE RECORDS SUMMARY | 2025-01-21 18:27 | XMS_ITS ---
Author Organization Unknown Address [address] [place] [phone] Phone Care Team Providers Care Replanting Machine Crew Name Role Phone ATIYA Lezama MD Attending [...] em Smoking History Never smoker (Never Smoked) 063627767 SNOMED CT Sex Female Sexual Orientation Straight or Heterosexual 03796976 SNOMED CT Gender Identity Female [id number] [address] Medications Medication Start Date End Date Route Frequency Dose Code Code System Medication Instructions Home Meds ZyrTEC Allergy 10MG Oral Capsule, Liquid Filled 03/12/2023 Unknown By Mouth Daily 1 CAPSULE 7410063 RxNorm 1 CAPSULE By Mouth Daily Fluticasone 0.05MG/1Actuatio n Nasal [place] 03/12/2023 Unknown Nasal Daily 1 Sprays 7794515 RxNorm 1 Spra ys Nasal Daily Azithromycin 500MG Oral Tablet 06/04/2024 Unknown By Mouth x1 NOW 2 TABLET 732422 RxNorm 2 TABLET By Mouth x1 NOW [...] Status Code Code System SEASONAL ALLERGY active 796051316 SNO MED-CT FAMILY PLANNING 06/20/2020 active 296124664 SNO MED-CT BITE OF INSECT active 518224513 SNOME D-CT ES OF VAGINA 08/07/2022 active 83261290 S NOMED-CT MENORRHAGIA active 079948329 SNOMED-C T PAINFUL NECK active 54117302 SNOMED- CT ADHD OF CHILDHOOD 07/22/2019 resolved 656417195 S NOMED-CT SEASONAL NASAL ALLERGY 07/22/2019 resolved 609844 001 SNOMED-CT HISTORY OF CHICKENPOX 07/22/2019 resolved 8561660 08 SNOMED-CT Allergies and Adverse Reactions Allergy Substance Reaction Severity Start Date Concern Status Co de Code System Active seasonal allergies Active No Known Drug Allergies Active 425380207 SNOMED-CT No Known Drug Allergies Active 993881715 SNOMED-CT Plan of Treatment Description Due Date Details Instructions DEPRESSION SCREENING DUE 06/20/2021 Personal Care Team Section Performer Name Performer Role Active Date Inactive Da xena
--- OUTSIDE RECORDS SUMMARY | 2025-01-21 18:27 | XMS_ITS ---
Author Organization Unknown Address [address] [place] [phone] Phone Care Team Providers Care Musculoskeletal Physician Name Role Phone TABATHA RODGERS Attending Unavailable [...] em Smoking History Never smoker (Never Smoked) 170956961 SNOMED CT Sex Female Sexual Orientation Straight or Heterosexual 04649748 SNOMED CT Gender Identity Female [id number] [address] Medications Medication Start Date End Date Route Frequency Dose Code Code System Medication Instructions Home Meds predniSONE 50MG Oral Tablet 06/07/2022 07/31/2022 By Mouth Daily 1 TABLET 447905 RxNorm 1 TABLET By Mouth Daily [place]-28 30MCG-0.15MG-NA Oral Tablet 06/07/2022 09/12/2022 By Mouth Daily 1 TABLET 529676 RxNorm 1 TABLET By Mouth Daily Diflucan 150MG Oral Tablet 08/07/2022 09/12/2022 By Mouth x1 NOW 1 TABLET 454139 RxNorm 1 TABLET By Mouth x1 NOW FOR MARCH REPEAT IN 72 HOURS Radha 28 3MG-0.02MG Oral Tablet 09/12/2022 12/25/2022 By Mouth Once a day 1 TABLET RxNorm 1 TABLET By Mouth Once a day Medrol Dosepak 4MG Oral Tablet 12/25/2022 02/20/2023 By Mouth As Directed 1 PACK 289290 RxNorm 1 PACK By Mouth As Directed Methocarbamol 750MG Oral Tablet 12/25/2022 03/12/2023 By Mouth As needed every 8 hr 363750 RxNorm 1-2 TABLET By Mouth As needed every 8 hr Anel-28 30 MCG-0.15 MG; NA Oral Tablet 12/25/2022 03/12/2023 By Mouth Daily 1 TABLET 584328 RxNorm 1 TABLET By Mouth Daily Macrobid 100MG Oral Capsule 02/20/2023 03/12/2023 By mouth Twice a day 1 TABLET 353208 RxNorm 1 TABLET By mouth Twice a day X 7 DAYS Pyridium 100MG Oral Tablet 02/20/2023 03/12/2023 By mouth As needed every 8 hr 1 TABLET 9676928 RxNorm 1 TABLET By mouth As needed every 8 hr for urinary pain ZyrTEC Allergy 10MG Oral Capsule, Liquid Filled 03/12/2023 Unknown By Mouth Daily 1 CAPSULE 4554700 RxNorm 1 CAPSULE By Mouth Daily Fluticasone 0.05MG/1Actuati on Nasal [place] 03/12/2023 Unknown Nasal Daily 1 Sprays 4045941 RxNorm 1 Spr ays Nasal Daily Azithromycin 500MG Oral Tablet 06/04/2024 Unknown By Mouth x1 NOW 2 TABLET 130095 RxNorm 2 TABLET By Mouth x1 NOW [...] Status Code Code System SEASONAL ALLERGY active 495954656 SNO MED-CT FAMILY PLANNING 06/20/2020 active 396461117 SNO MED-CT BITE OF INSECT active 771969917 SNOME D-CT ES OF VAGINA 08/07/2022 active 34869070 S NOMED-CT MENORRHAGIA active 080721850 SNOMED-C T PAINFUL NECK active 23174372 SNOMED- CT ADHD OF CHILDHOOD 07/22/2019 resolved 369895835 S NOMED-CT SEASONAL NASAL ALLERGY 07/22/2019 resolved 775719 001 SNOMED-CT HISTORY OF CHICKENPOX 07/22/2019 resolved 0339281 08 SNOMED-CT Allergies and Adverse Reactions Allergy Substance Reaction Severity Start Date Concern Status Co de Code System Active seasonal allergies Active No Known Drug Allergies Active 815399354 SNOMED-CT No Known Drug Allergies Active 301436812 SNOMED-CT Plan of Treatment Description Due Date Details Instructions DEPRESSION SCREENING DUE 06/20/2021 Personal Care Team Section Performer Name Performer Role Active Date Inactive David mccallum
--- OUTSIDE RECORDS SUMMARY | 2025-01-21 18:27 | XMS_ITS ---
Author Organization Unknown Address [address] [place] [phone] Phone Care Team Providers Care Junior Estimator Name Role Phone ATIYA Lezama MD Attending [...] em Smoking History Never smoker (Never Smoked) 546061619 SNOMED CT Sex Female Sexual Orientation Straight or Heterosexual 20129639 SNOMED CT Gender Identity Female 62246719906101 [address] Medications Medication Start Date End Date Route Frequency Dose Code Code System Medication Instructions Home Meds Radha 28 3MG-0.02MG Oral Tablet 09/12/2022 12/25/2022 By Mouth Once a day 1 TABLET RxNorm 1 TABLET By Mouth Once a day Medrol Dosepak 4MG Oral Tablet 12/25/2022 02/20/2023 By Mouth As Directed 1 PACK 552820 RxNorm 1 PACK By Mouth As Directed Methocarbamol 750MG Oral Tablet 12/25/2022 03/12/2023 By Mouth As needed every 8 hr 923763 RxNorm 1-2 TABLET By Mouth As needed every 8 hr [place]-28 30 MCG-0.15 MG; NA Oral Tablet 12/25/2022 03/12/2023 By Mouth Daily 1 TABLET 537838 RxNorm 1 TABLET By Mouth Daily Macrobid 100MG Oral Capsule 02/20/2023 03/12/2023 By mouth Twice a day 1 TABLET 392901 RxNorm 1 TABLET By mouth Twice a day X 7 DAYS Pyridium 100MG Oral Tablet 02/20/2023 03/12/2023 By mouth As needed every 8 hr 1 TABLET 1071502 RxNorm 1 TABLET By mouth As needed every 8 hr for urinary pain ZyrTEC Allergy 10MG Oral Capsule, Liquid Filled 03/12/2023 Unknown By Mouth Daily 1 CAPSULE 6512898 RxNorm 1 CAPSULE By Mouth Daily Fluticasone 0.05MG/1Actuati on Nasal [place] 03/12/2023 Unknown Nasal Daily 1 Sprays 4722463 RxNorm 1 Spr ays Nasal Daily Azithromycin 500MG Oral Tablet 06/04/2024 Unknown By Mouth x1 NOW 2 TABLET 085808 RxNorm 2 TABLET By Mouth x1 NOW [...] Status Code Code System SEASONAL ALLERGY active 222190366 SNO MED-CT FAMILY PLANNING 06/20/2020 active 945790385 SNO MED-CT BITE OF INSECT active 961791494 SNOME D-CT ES OF VAGINA 08/07/2022 active 11170895 S NOMED-CT MENORRHAGIA active 512142881 SNOMED-C T PAINFUL NECK active 81444563 SNOMED- CT ADHD OF CHILDHOOD 07/22/2019 resolved 184395183 S NOMED-CT SEASONAL NASAL ALLERGY 07/22/2019 resolved 380223 001 SNOMED-CT HISTORY OF CHICKENPOX 07/22/2019 resolved 4205493 08 SNOMED-CT Allergies and Adverse Reactions Allergy Substance Reaction Severity Start Date Concern Status Co de Code System Active seasonal allergies Active No Known Drug Allergies Active 119308101 SNOMED-CT No Known Drug Allergies Active 529875791 SNOMED-CT Plan of Treatment Description Due Date Details Instructions DEPRESSION SCREENING DUE 06/20/2021 Personal Care Team Section Performer Name Performer Role Active Date Inactive David mccallum
--- OUTSIDE RECORDS SUMMARY | 2025-01-21 18:27 | XMS_ITS ---
Author Organization Unknown Address [address] [place] [address] [phone] Phone Care Team Providers Care Risk Control Officer Name Role Phone TABATHA RODGERS Attending Unavailable [...] MICR O - Collect Date/Time: 07/31/2022 17:14 [facility] ID: [id number] [address] [place] [address], [phone] LOINC: Test Value Unit Reference Range Code [...] TEST - Colle ct Date/Time: 07/31/2022 17:12 [facility] ID: [id number] [address] [place] [address], [phone] LOINC: Test Value Unit Reference Range Code Code System Flag TEST PERFORMED URINE PREG (URINE) NEGATIVE LOT#: [id number] EXP DATE: 2023-10-10 QC: ACCEPTABLE Social History Type Status Start Date End Date Code Code Syst em Smoking History Never smoker (Never Smoked) 637396100 SNOMED CT Sex Female Sexual Orientation Straight or Heterosexual 81337996 SNOMED CT Gender Identity Female [id number] [address] Vital Signs Vital Sign Value Unit [place] Value Dickinson Unit Date/Time Recent/Initial? Code Code System Body Mass Index 23.34 kg/m2 07/31/2022 16:59 Initial 71928 -5 LOINC Body Mass Index Percentile 71 % 07/31/2022 16:59 Initial 19185 -9 LOINC Systolic Blood Pressure 120 mm[Hg] 07/31/2022 16:59 Initial 8480- 6 LOINC Diastolic Blood Pressure 80 mm[Hg] 07/31/2022 16:59 Initial 8462- 4 [facility] [place] [facility] Body Surface Area 1.79 m2 07/31/2022 16:59 Initial 3140- 1 [facility] [place] [facility] Height 170.180 0 cm 67.00 in 07/31/2022 16:59 Initial 8302- 2 [facility] [place] [facility] O2 Saturation 98 % 2021 16:59 Initial 36745 -5 [facility] [place] [facility] Pulse 92.0 /min 07/31/2022 16:59 Initial 8867- 4 [facility] [facility] Temperature 36.8 Antonella 98.2 F 07/31/20 16:59 Initial 8310- 5 [facility] Weight 67.59 kg 149.00 lbs 07/31/2022 16:59 Initial 03483 -7 [facility] [facility] Medications Medication Start Date End Date Route Frequency Dose Code Code System Medication Instructions Home Meds predniSONE 50MG Oral Tablet 06/07/2022 07/31/2022 By Mouth Daily 1 TABLET 940034 RxNorm 1 TABLET By Mouth Daily Anel-28 30MCG-0.15MG-NA Oral Tablet 06/07/2022 09/12/2022 By Mouth Daily 1 TABLET 824086 RxNorm 1 TABLET By Mouth Daily Diflucan [...] 02/20/2023 By Mouth As Directed 1 PACK 806002 RxNorm 1 PACK By Mouth As Directed Methocarbamol 750MG Oral Tablet 12/25/2022 03/12/2023 By Mouth As needed every 8 hr 624774 RxNorm 1-2 TABLET By Mouth As needed every 8 hr Anel-28 30 MCG-0.15 MG; NA Oral Tablet 12/25/2022 03/12/2023 By Mouth Daily 1 TABLET 997680 RxNorm 1 TABLET By Mouth Daily Macrobid 100MG Oral Capsule 02/20/2023 03/12/2023 By mouth Twice a day 1 TABLET 001746 RxNorm 1 TABLET By mouth Twice a day X 7 DAYS Pyridium 100MG Oral Tablet 02/20/2023 03/12/2023 By mouth As needed every 8 hr 1 TABLET 8380852 RxNorm 1 TABLET By mouth As needed every 8 hr for urinary pain ZyrTEC Allergy 10MG Oral Capsule, Liquid Filled 03/12/2023 Unknown By Mouth Daily 1 CAPSULE 0020622 RxNorm 1 CAPSULE By Mouth Daily Fluticasone 0.05MG/1Actuati on Nasal [place] 03/12/2023 Unknown Nasal Daily 1 Sprays 4485988 RxNorm 1 Spr ays Nasal Daily Azithromycin 500MG Oral Tablet 06/04/2024 Unknown By Mouth x1 NOW 2 TABLET 445755 RxNorm 2 TABLET By Mouth x1 NOW [...] Status Code Code System SEASONAL ALLERGY active 305540407 SNO MED-CT FAMILY PLANNING 06/20/2020 active 729461266 SNO MED-CT BITE OF INSECT active 699457676 SNOME D-CT ES OF VAGINA 08/07/2022 active 00580718 S NOMED-CT MENORRHAGIA active 775676427 SNOMED-C T PAINFUL NECK active 60124032 SNOMED- CT ADHD OF CHILDHOOD 07/22/2019 resolved 965357541 S NOMED-CT SEASONAL NASAL ALLERGY 07/22/2019 resolved 600979 001 SNOMED-CT HISTORY OF CHICKENPOX 07/22/2019 resolved 4530223 08 SNOMED-CT Allergies and Adverse Reactions Allergy Substance Reaction Severity Start Date Concern Status Co de Code System Active seasonal allergies Active No Known Drug Allergies Active 286005285 SNOMED-CT No Known Drug Allergies Active 905713543 SNOMED-CT Plan of Treatment Description Due Date Details Instructions DEPRESSION SCREENING DUE 06/20/2021 Future Order Description Future Order Date Futu re Order Loinc: BACTERIAL VAGINOSIS RAPID TEST 07/31/2022 LOINC: 6410-5 CULTURE YEAST, WITH IDENTIFICATION 07/31/2022 LOINC: 61855-5 TRICHOMONAS VAGINALIS FEMALE RNA QUAL 2 LOINC: 77798-7 CHLAMYDIA/GC URINE RNA, TMA APTIMA 07/31/2022 LOINC: 5048-4 CULTURE URINE 07/31/2022 LOINC: 630-4 Encounters Encounter Diagnosis Start Date Code Code Sys tem Acute vaginitis 07/31/2022 62241205 SNOMED-CT Personal Care Team Section Performer Name Performer Role Active Date Inactive Da te Progress Notes [facility] 07/31/2022 18:10 Admission Date/Time: 07/31/2022 16:21 Convenient [...] NEGATIVE 07/31/2022 17:10 07/31/2022 17:12 final LOT#: [id number] 07/31/2022 17:10 07/31/2022 17:12 final EXP DATE: [...]
--- OUTSIDE RECORDS SUMMARY | 2025-01-21 18:27 | XMS_ITS ---
Author Organization Unknown Address [address] [place] [address] [phone] Phone Care Team Providers Care Umbrella Mender Name Role Phone Blanco Gallego Attending Unavailable [...] em Smoking History Never smoker (Never Smoked) 164913791 SNOMED CT Sex Female Sexual Orientation Straight or Heterosexual 31841376 SNOMED CT Gender Identity Female [id number] [address] Medications Medication Start Date End Date Route Frequency Dose Code Code System Medication Instructions Home Meds ZyrTEC Allergy 10MG Oral Capsule, Liquid Filled 03/12/2023 Unknown By Mouth Daily 1 CAPSULE 7675295 RxNorm 1 CAPSULE By Mouth Daily Fluticasone 0.05MG/1Actuatio n Nasal [place] 03/12/2023 Unknown Nasal Daily 1 Sprays 9085762 RxNorm 1 Spra ys Nasal Daily Azithromycin 500MG Oral Tablet 06/04/2024 Unknown By Mouth x1 NOW 2 TABLET 592814 RxNorm 2 TABLET By Mouth x1 NOW [...] Status Code Code System SEASONAL ALLERGY active 813398903 SNO MED-CT FAMILY PLANNING 06/20/2020 active 776758811 SNO MED-CT BITE OF INSECT active 565323231 SNOME D-CT ES OF VAGINA 08/07/2022 active 29938733 S NOMED-CT MENORRHAGIA active 844318613 SNOMED-C T PAINFUL NECK active 86668719 SNOMED- CT ADHD OF CHILDHOOD 07/22/2019 resolved 490456326 S NOMED-CT SEASONAL NASAL ALLERGY 07/22/2019 resolved 602649 001 SNOMED-CT HISTORY OF CHICKENPOX 07/22/2019 resolved 0563512 08 SNOMED-CT Allergies and Adverse Reactions Allergy Substance Reaction Severity Start Date Concern Status Co de Code System Active seasonal allergies Active No Known Drug Allergies Active 010518376 SNOMED-CT No Known Drug Allergies Active 205428579 SNOMED-CT Plan of Treatment Description Due Date Details Instructions DEPRESSION SCREENING DUE 06/20/2021 Personal Care Team Section Performer Name Performer Role Active Date Inactive Da xena
--- OUTSIDE RECORDS SUMMARY | 2025-01-21 18:28 | XMS_ITS ---
Author Organization Unknown Address [address] [place] [address] [phone] Phone Care Team Providers Care Software Engineer Name Role Phone Blanco Gallego Attending Unavailable ATIYA Lezaam MD Primary Unavailable Immunization Immunization Date Status [...] em Smoking History Never smoker (Never Smoked) 434636897 SNOMED CT Sex Female Sexual Orientation Straight or Heterosexual 90879145 SNOMED CT Gender Identity Female [id number] [address] Vital Signs Vital Sign Value Unit [place] Value [place] Unit Date/Time Recent/Initial? Code Code System Body Mass Index 23.87 kg/m2 12/25/2022 13:33 Initial 36709 -[address] [facility] Body Mass Index Percentile 74 % 12/25/2022 13:33 Initial 47191 -[address] [facility] Systolic Blood Pressure 106 mm[Hg] 12/25/2022 13:33 Initial 8480- [address] [facility] Diastolic Blood Pressure 72 mm[Hg] 12/25/2022 13:33 Initial 8462- [address] [facility] Body Surface Area 1.85 m2 12/25/2022 13:33 Initial 3140- [address] [facility] Height 172.720 0 cm 68.00 in 12/25/2022 13:33 Initial 8302- [address] [facility] O2 Saturation 100 % 2022 13:33 Initial 11607 -[address] [facility] Pulse 82.0 /min 12/25/2022 13:33 Initial 8867- [address] [facility] Respiration 16 /min 12/25/19 13:33 Initial 9279- [address] [facility] Temperature 37.0 Antonella 98.6 F 12/25/19 13:33 Initial 8310- [address] [facility] Weight 71.21 kg 157.00 lbs 12/25/2022 13:33 Initial 20106 -[address] [facility] Medications Medication Start Date End Date Route Frequency Dose Code Code System Medication Instructions Home Meds Radha 28 3MG-0.02MG Oral Tablet 09/12/2022 12/25/2022 By Mouth Once a day 1 TABLET RxNorm 1 TABLET By Mouth Once a day Medrol Dosepak 4MG Oral Tablet 12/25/2022 02/20/2023 By Mouth As Directed 1 PACK 795152 RxNorm 1 PACK By Mouth As Directed Methocarbamol 750MG Oral Tablet 12/25/2022 03/12/2023 By Mouth As needed every 8 hr 690542 RxNorm 1-2 TABLET By Mouth As needed every 8 hr Roll-28 30 MCG-0.15 MG; NA Oral Tablet 12/25/2022 03/12/2023 By Mouth Daily 1 TABLET 789341 RxNorm 1 TABLET By Mouth Daily Macrobid 100MG Oral Capsule 02/20/2023 03/12/2023 By mouth Twice a day 1 TABLET 881724 RxNorm 1 TABLET By mouth Twice a day X 7 DAYS Pyridium 100MG Oral Tablet 02/20/2023 03/12/2023 By mouth As needed every 8 hr 1 TABLET 1848946 RxNorm 1 TABLET By mouth As needed every 8 hr for urinary pain ZyrTEC Allergy 10MG Oral Capsule, Liquid Filled 03/12/2023 Unknown By Mouth Daily 1 CAPSULE 8570024 RxNorm 1 CAPSULE By Mouth Daily Fluticasone 0.05MG/1Actuati on Nasal [place] 03/12/2023 Unknown Nasal Daily 1 Sprays 3478506 RxNorm 1 Spr ays Nasal Daily Azithromycin 500MG Oral Tablet 06/04/2024 Unknown By Mouth x1 NOW 2 TABLET 886676 RxNorm 2 TABLET By Mouth x1 NOW Assessment You had the following problems:SEASONAL ALLERGYFAMILY PLANNINGBITE OF INSECTCANDIDA OF VAGINAMENORRHAGIAPAINFUL NECK Assessment/Plan: 1. Left upper back pain - Start steroids and muscle relaxer. Patient denies need for school note. 2. Contraceptive management - Patient requesting to restart Roll, will restart at this time Return to clinic [facility] Discharge Instructions Should you have any questions prior to discharge, please contact a member of your healthcare team. If you have left the hospital and have any questions, please contact your primary care physician. Reason For Referral No Data Found Problems Problem Start Date Resolved Date Status Code Code System SEASONAL ALLERGY active 008475657 SNO MED-CT FAMILY PLANNING 06/20/2020 active 050771234 SNO MED-CT BITE OF INSECT active 199788801 SNOME D-CT ES OF VAGINA 08/07/2022 active 27297385 S NOMED-CT MENORRHAGIA active 956500426 SNOMED-C T PAINFUL NECK active 20276706 SNOMED- CT ADHD OF CHILDHOOD 07/22/2019 resolved 601436509 S NOMED-CT SEASONAL NASAL ALLERGY 07/22/2019 resolved 022743 001 SNOMED-CT HISTORY OF CHICKENPOX 07/22/2019 resolved 7500205 08 SNOMED-CT Allergies and Adverse Reactions Allergy Substance Reaction Severity Start Date Concern Status Co de Code System Active seasonal allergies Active No Known Drug Allergies Active 540943102 SNOMED-CT No Known Drug Allergies Active 683815436 SNOMED-CT Plan of Treatment Description Due Date Details Instructions DEPRESSION SCREENING DUE 06/20/2021 Encounters Encounter Diagnosis Start Date Code Code Sys tem Pain in thoracic spine 12/25/2022 183089938 SNOME D-CT Personal Care Team Section Performer Name Performer Role Active Date Inactive Da te Progress Notes [facility] 12/25/2022 13:54 Admission Date/Time: 12/25/2022 13:07 [facility] Visit Note Chief Complaint: [facility] F/U UPPER BACK PAIN/BY 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 Pt states she went to [facility] on 12-18-22 with neck and upper back pain. States it just started hurting her while at work, denies injury to the areas. 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 States she has been taking warm baths [...] Contraceptive management - Patient requesting to restart Roll, will restart at this time Return to [...] records Referring and communicating with other health care management assistant x Obtaining and/or reviewing separately obtained history Independent interpretation of results and communicating results to the patient/family/caregiver x Performing a medically appropriate examination/evaluation Care coordination (not reported separately) Ordered & Completed Meds Table: No Current Medications Available Discharge Med List: Discharge Medications: No Discharge Medications Available
--- NOTE | 2025-01-21 18:30 | OBADM ---
This patient, Lani Ho, admitted to the OB room Labor/Delivery/Recovery 105 for observation. Patient/family oriented to hospital policies and general routines including ID bracelet, bed and alarms, visiting hours, pain management, procedures, bathroom and other care routines, personal items, smoking policy, room service/diet, and visiting hours. Patient/Family are encouraged to report perceived risks to care and to ask questions if they do not understand what they are told or what they should do.
[2025-01-21 18:32] VITALS: BP 126/82; PULSE 100
[2025-01-21 18:45] VITALS: BP 116/78; PULSE 84
--- NOTE | 2025-01-21 18:47 | PC.NURSE ---
[address] Briggs, notified of GI symptoms per pt feels like I have a big gas bubble and need to burp. Order for GI cocktail received.
[2025-01-21] MEDS: ACETAMINOPHEN 500 MG TABLET 1000 MG PO (18:54)
[2025-01-21 19:00] VITALS: BP 133/75; PULSE 83
[2025-01-21] MEDS: BELLADONNA ALK/PHENOB ELIX 10 ML, MAG HYDROX/ALUMINUM HYD/SIMETH 30 ML, LIDOCAINE 2% VI... PO (19:04)
[2025-01-21 19:15] VITALS: BP 132/80; PULSE 87
[2025-01-21 19:30] VITALS: BP 124/71; PULSE 68
[2025-01-21 19:46] VITALS: BP 110/42; PULSE 72
--- OUTSIDE RECORDS SUMMARY | 2025-01-22 07:30 | XMS_ITS ---
Author Organization Unknown Address [address], [place] [phone] Phone Care Team Providers Care Sodium Chlorite Operator Name Role Phone DEON CONROY Attending Unavailable Results CYTOMEGALOVIRUS AB IGG - Col lect Date/Time: 10/22/2024 14:12 [facility] ID: [id number] [address] [place], [place], [phone] LOINC: 5124-3 Test Value Unit Reference Range Code Code System Flag CYTOMEGALOVIRUS ANTIBODY(IGG) >10.00 H PARVOVIRUS B19 IGG & IGM - C ollect Date/Time: 10/22/2024 14:12 [facility] ID: [id number] [address], [place], [phone] LOINC: 5273-8 Test Value Unit Reference Range Code Code System Flag PARVOVIRUS B19 ANTIBODY(IGG) 0.2 PARVOVIRUS B19 ANTIBODY(IGM) 0.2 Social History Type Status Start Date End Date Code Code Syst em Smoking History Never smoker (Never Smoked) 436378470 SNOMED CT Sex Female Sexual Orientation Straight or Heterosexual 66566376 SNOMED CT Gender Identity Female 18632457991199 [address] Medications Medication Start Date End Date Route Frequency Dose Code Code System Medication Instructions Home Meds ZyrTEC Allergy 10MG Oral Capsule, Liquid Filled 03/12/2023 Unknown By Mouth Daily 1 CAPSULE 2623504 RxNorm 1 CAPSULE By Mouth Daily Fluticasone 0.05MG/1Actuatio n Nasal [place] 03/12/2023 Unknown Nasal Daily 1 Sprays 5262878 RxNorm 1 Spra ys Nasal Daily Azithromycin 500MG Oral Tablet 06/04/2024 Unknown By Mouth x1 NOW 2 TABLET 038252 RxNorm 2 TABLET By Mouth x1 NOW [...] Status Code Code System SEASONAL ALLERGY active 343559708 SNO MED-CT FAMILY PLANNING 06/20/2020 active 728608822 SNO MED-CT BITE OF INSECT active 075895552 SNOME D-CT ES OF VAGINA 08/07/2022 active 20870765 S NOMED-CT MENORRHAGIA active 245806722 SNOMED-C T PAINFUL NECK active 07463963 SNOMED- CT ADHD OF CHILDHOOD 07/22/2019 resolved 752900552 S NOMED-CT SEASONAL NASAL ALLERGY 07/22/2019 resolved 183094 001 SNOMED-CT HISTORY OF [place]PO[place] 07/22/2019 resolved 4563523 08 SNOMED-CT Allergies and Adverse Reactions Allergy Substance Reaction Severity Start Date Concern Status Co de Code System Active seasonal allergies Active No Known Drug Allergies Active 087631053 SNOMED-CT No Known Drug Allergies Active 716400489 SNOMED-CT Plan of Treatment Description Due Date Details Instructions DEPRESSION SCREENING DUE 06/20/2021 Encounters Encounter Diagnosis Start Date Code Code Sys tem ultrasound scan abnormal 10/22/2024 654910 005 SNOMED-CT Personal Care Team Section Performer Name Performer Role Active Date Inactive Da xena
--- OUTSIDE RECORDS SUMMARY | 2025-01-22 07:30 | XMS_ITS ---
Author Organization Unknown Address [address] [place] [address] [phone] Phone Care Team Providers Care Medical Record Specialist Name Role Phone ABBY AGUIRRE Attending Unavailable [...] em Smoking History Never smoker (Never Smoked) 679076515 SNOMED CT Sex Female Sexual Orientation Straight or Heterosexual 63601541 SNOMED CT Gender Identity Female 23171782662263 [address] Vital Signs Vital Sign Value Unit [place] Value [place] Unit Date/Time Recent/Initial? Code Code System Body Mass Index 26.21 kg/m2 05/06/2023 12:01 Initial 50305 -5 [facility] Body Mass Index Percentile 85 % 05/06/2023 12:01 Initial 91956 -9 [facility] Systolic Blood Pressure 118 mm[Hg] 05/06/2023 12:01 Initial 8480- 6 [facility] Diastolic Blood Pressure 74 mm[Hg] 05/06/2023 12:01 Initial 8462- 4 [facility] Body Surface Area 3.35 m2 05/06/2023 12:01 Initial 3140- 1 [facility] Height 248.920 0 cm 98.00 in 05/06/2023 12:01 Initial 8302- 2 [facility] O2 Saturation 98 % 2022 12:01 Initial 83804 -5 [facility] Pulse 78.0 /min 05/06/2023 12:01 Initial 8867- 4 [facility] Temperature 36.4 Antonella 97.5 F 05/06/20 12:01 Initial 8310- 5 [facility] Weight 162.40 kg 358.03 lbs 05/06/2023 12:01 Initial 92303 -7 [facility] Medications Medication Start Date End Date Route Frequency Dose Code Code System Medication Instructions Home Meds ZyrTEC Allergy 10MG Oral Capsule, Liquid Filled 03/12/2023 Unknown By Mouth Daily 1 CAPSULE 0083832 RxNorm 1 CAPSULE By Mouth Daily Fluticasone 0.05MG/1Actuatio n Nasal [place] 03/12/2023 Unknown Nasal Daily 1 Sprays 0279177 RxNorm 1 Spra ys Nasal Daily Azithromycin 500MG Oral Tablet 06/04/2024 Unknown By Mouth x1 NOW 2 TABLET 859582 RxNorm 2 TABLET By Mouth x1 NOW [...] Status Code Code System SEASONAL ALLERGY active 324216780 SNO MED-CT FAMILY PLANNING 06/20/2020 active 511194581 SNO MED-CT BITE OF INSECT active 709595489 SNOME D-CT ES OF VAGINA 08/07/2022 active 01868252 S NOMED-CT MENORRHAGIA active 594750278 SNOMED-C T PAINFUL NECK active 10137209 SNOMED- CT ADHD OF CHILDHOOD 07/22/2019 resolved 438684523 S NOMED-CT SEASONAL NASAL ALLERGY 07/22/2019 resolved 056970 001 SNOMED-CT HISTORY OF CHICK[place]POX 07/22/2019 resolved 6225970 08 SNOMED-CT Allergies and Adverse Reactions Allergy Substance Reaction Severity Start Date Concern Status Co de Code System Active seasonal allergies Active No Known Drug Allergies Active 717921770 SNOMED-CT No Known Drug Allergies Active 965299479 SNOMED-CT Plan of Treatment Description Due Date Details Instructions DEPRESSION SCREENING DUE 06/20/2021 Encounters Encounter Diagnosis Start Date Code Code Sys tem Injury of head 05/06/2023 12462170 SNOMED-CT Personal Care Team Section Performer Name Performer Role Active Date Inactive Da te Progress Notes [facility] 05/06/2023 13:28 Date of Service: 05/06/2023 Convenient [...] Instructions Start Date Prescribing Fluticasone 0.05MG/1Actuation Nasal [place] 1 Sprays Nasal Daily 03/12/2023 Blanco Gallego ZyrTEC Allergy 10MG Oral Capsule, Liquid Filled 1 CAPSULE By Mouth Daily 03/12/2023 Blanco Gallego This examination was transcribed using the [employer] voice recognition system without human pulp tester. In an effort to expedite patient care, this report has not been adjusted for typographical, or medical or syntax by a trained emergency medical tech.
--- OUTSIDE RECORDS SUMMARY | 2025-01-22 07:31 | XMS_ITS | Clinical Summary ---
Author Organization [facility] Address [address] [place] [id number] Care Team Providers Care Transition Mgr Name Role Phone Geovanna Pryor NP Primary [...] age to complete this topic Care Teams Transition Mgr Relationship Specialty Start Date End Date Geovanna Pryor NP [address] [place] [address] PCP - General Nurse Practitioner Family 06/17/19 Geovanna Pryor NP [address] [place] [address] 06/17/19
--- OUTSIDE RECORDS SUMMARY | 2025-01-22 07:31 | XMS_ITS ---
Author Organization Unknown Address [address] [place] [phone] Phone Care Team Providers Care Orthopedic Physician Assistant Name Role Phone ATIYA Lezama MD Attending [...] em Smoking History Never smoker (Never Smoked) 063023225 SNOMED CT Sex Female Sexual Orientation Straight or Heterosexual 35010429 SNOMED CT Gender Identity Female [id number] [address] Vital Signs Vital Sign Value Unit Faulk Value Faulk Unit Date/Time Recent/Initial? Code Code System Body Mass Index 22.93 kg/m2 09/12/2022 17:59 Initial 89168 -5 [facility] Body Mass Index Percentile 67 % 09/12/2022 17:59 Initial 68729 -9 [facility] Systolic Blood Pressure 100 mm[Hg] 09/12/2022 17:59 Initial 8480- 6 [facility] Diastolic Blood Pressure 70 mm[Hg] 09/12/2022 17:59 Initial 8462- 4 [facility] Body Surface Area 1.81 m2 09/12/2022 17:59 Initial 3140- 1 [facility] Height 172.720 0 cm 68.00 in 09/12/2022 17:59 Initial 8302- 2 [facility] O2 Saturation 99 % 2021 17:59 Initial 80035 -5 [facility] Pulse 95.0 /min 09/12/2022 17:59 Initial 8867- 4 [facility] Respiration 18 /min 09/12/20 17:59 Initial 9279- 1 [facility] Temperature 36.9 Antonella 98.4 F 09/12/20 17:59 Initial 8310- 5 [facility] Weight 68.40 kg 150.80 lbs 09/12/2022 17:59 Initial 11892 -7 [facility] Medications Medication Start Date End Date Route Frequency Dose Code Code System Medication Instructions Home Meds Anel-28 30MCG-0.15MG-NA Oral Tablet 06/07/2022 09/12/2022 By Mouth Daily 1 TABLET 987388 RxNorm 1 TABLET By Mouth Daily Diflucan 150MG Oral Tablet 08/07/2022 09/12/2022 By Mouth x1 NOW 1 TABLET 811980 RxNorm 1 TABLET By Mouth x1 NOW FOR MARCH REPEAT IN 72 HOURS Radha 28 3MG-0.02MG Oral Tablet 09/12/2022 12/25/2022 By Mouth Once a day 1 TABLET RxNorm 1 TABLET By Mouth Once a day Medrol Dosepak 4MG Oral Tablet 12/25/2022 02/20/2023 By Mouth As Directed 1 PACK 809202 RxNorm 1 PACK By Mouth As Directed Methocarbamol 750MG Oral Tablet 12/25/2022 03/12/2023 By Mouth As needed every 8 hr 369293 RxNorm 1-2 TABLET By Mouth As needed every 8 hr Outing-28 30 MCG-0.15 MG; NA Oral Tablet 12/25/2022 03/12/2023 By Mouth Daily 1 TABLET 867831 RxNorm 1 TABLET By Mouth Daily Macrobid 100MG Oral Capsule 02/20/2023 03/12/2023 By mouth Twice a day 1 TABLET 965662 RxNorm 1 TABLET By mouth Twice a day X 7 DAYS Pyridium 100MG Oral Tablet 02/20/2023 03/12/2023 By mouth As needed every 8 hr 1 TABLET 3495710 RxNorm 1 TABLET By mouth As needed every 8 hr for urinary pain ZyrTEC Allergy 10MG Oral Capsule, Liquid Filled 03/12/2023 Unknown By Mouth Daily 1 CAPSULE 8294559 RxNorm 1 CAPSULE By Mouth Daily Fluticasone 0.05MG/1Actuatio n Nasal [place] 03/12/2023 Unknown Nasal Daily 1 Sprays 6714156 RxNorm 1 Spra ys Nasal Daily Azithromycin 500MG Oral Tablet 06/04/2024 Unknown By Mouth x1 NOW 2 TABLET 552013 RxNorm 2 TABLET By Mouth x1 NOW Assessment You had the following problems:SEASONAL ALLERGYFAMILY PLANNINGBITE OF INSECTCANDIDA OF VAGINAMENORRHAGIAPAINFUL NECK Assessment/Plan: 1) Menorrhagia: Will check TSH, T4, CBC, PT/INR, and CMP. Will discontinue the Anel and start her on Radha 1 tablet daily. 2) Contraceptive management: Patient is currently on Outing but this is not managing her periods [...] Status Code Code System SEASONAL ALLERGY active 898726525 SNO MED-CT FAMILY PLANNING 06/20/2020 active 767900732 SNO MED-CT BITE OF INSECT active 484644934 SNOME D-CT ES OF VAGINA 08/07/2022 active 03978277 S NOMED-CT MENORRHAGIA active 389349214 SNOMED-C T PAINFUL NECK active 37504758 SNOMED- CT ADHD OF CHILDHOOD 07/22/2019 resolved 566474782 S NOMED-CT SEASONAL NASAL ALLERGY 07/22/2019 resolved 080344 001 SNOMED-CT HISTORY OF CHICKENPOX 07/22/2019 resolved 2551431 08 SNOMED-CT Allergies and Adverse Reactions Allergy Substance Reaction Severity Start Date Concern Status Co de Code System Active seasonal allergies Active No Known Drug Allergies Active 627684824 SNOMED-CT No Known Drug Allergies Active 762554812 SNOMED-CT Plan of Treatment Description Due Date Details Instructions DEPRESSION SCREENING DUE 06/20/2021 Future Order Description Future Order Date Futu re Order Loinc: TSH 09/12/2022 LOINC: 16854-5 FREE T4 09/12/2022 LOINC: 3024-7 CBC W DIFF 09/12/2022 LOINC: 12985-8 COMPREHENSIVE METABOLIC PANEL 09/12/2022 L OINC: 52563-6 PT (PROTIME) 09/12/2022 LOINC: 6301-6 Encounters Encounter Diagnosis Start Date Code Code Sys tem Excessive and frequent menstruation 09/12/2022 04018 1003 SNOMED-CT Personal Care Team Section Performer Name Performer Role Active Date Inactive Da te Progress Notes [facility] 09/13/2022 09:49 Admission Date/Time: 09/12/2022 13:21 Rachael Andersen MD Clinic Visit Note Chief Complaint: DISCUSS BC Has the patient received a COVID Vaccine? Yes Nurse Note: this nurse note is documented by Opal Ly CMA 17 yr old female present to [facility] today to discuss BC History of Present Illness: An 17-year-old presents to [facility] today to discuss BC. Patient states [...] CBC, PT/INR, and CMP. Will discontinue the Outing and start her on Radha 1 tablet daily. 2) Contraceptive management: Patient is currently on Outing but this is not managing her periods [...] records Referring and communicating with other health director of career resources Obtaining and/or reviewing separately obtained history Independent [...]
--- OUTSIDE RECORDS SUMMARY | 2025-01-22 07:31 | XMS_ITS ---
Author Organization Unknown Address [address] [place] [phone] Phone Care Team Providers Care Power Transmission Engineer Name Role Phone JOSUE FULTON Attending Unavailable [...] MICR O - Collect Date/Time: 02/20/2023 18:44 [facility] ID: [id number] [address] [place] [address], [phone] LOINC: Test Value Unit Reference Range Code [...] TEST - Colle ct Date/Time: 02/20/2023 18:43 [facility] ID: [id number] [address] [place] [address], [phone] LOINC: Test Value Unit Reference Range Code Code System Flag TEST PERFORMED URINE PREG (URINE) NEGATIVE LOT#: [id number] EXP DATE: 2023-12-11 QC: ACCEPTABLE Social History Type Status Start Date End Date Code Code Syst em Smoking History Never smoker (Never Smoked) 447204404 SNOMED CT Sex Female Sexual Orientation Straight or Heterosexual 68483995 SNOMED CT Gender Identity Female 47037093224363 [address] Vital Signs Vital Sign Value Unit Hood Value Hood Unit Date/Time Recent/Initial? Code Code System Body Mass Index 24.50 kg/m2 02/20/2023 18:36 Initial 07026 -5 [facility] Body Mass Index Percentile 77 % 02/20/2023 18:36 Initial 05619 -9 [facility] Systolic Blood Pressure 112 mm[Hg] 02/20/2023 18:36 Initial 8480- 6 [facility] Diastolic Blood Pressure 70 mm[Hg] 02/20/2023 18:36 Initial 8462- 4 [facility] Body Surface Area 1.85 m2 02/20/2023 18:36 Initial 3140- 1 [facility] Height 171.450 0 cm 67.50 in 02/20/2023 18:36 Initial 8302- 2 INC O2 Saturation 98 % 2022 18:36 Initial 96434 -5 [facility] Pulse 91.0 /min 02/20/2023 18:36 Initial 8867- 4 [facility] Temperature 37.2 Antonella 98.9 F 02/21/20 18:36 Initial 8310- 5 [facility] Weight 72.03 kg 158.80 lbs 02/20/2023 18:36 Initial 93710 -7 [facility] Medications Medication Start Date End Date Route Frequency Dose Code Code System Medication Instructions Home Meds Medrol Dosepak 4MG Oral Tablet 12/25/2022 02/20/2023 By Mouth As Directed 1 PACK 921483 RxNorm 1 PACK By Mouth As Directed Methocarbamol 750MG Oral Tablet 12/25/2022 03/12/2023 By Mouth As needed every 8 hr 955116 RxNorm 1-2 TABLET By Mouth As needed every 8 hr [place]-28 30 MCG-0.15 MG; NA Oral Tablet 12/25/2022 03/12/2023 By Mouth Daily 1 TABLET 627564 RxNorm 1 TABLET By Mouth Daily Macrobid 100MG Oral Capsule 02/20/2023 03/12/2023 By mouth Twice a day 1 TABLET 532709 RxNorm 1 TABLET By mouth Twice a day X 7 DAYS Pyridium 100MG Oral Tablet 02/20/2023 03/12/2023 By mouth As needed every 8 hr 1 TABLET 7098640 RxNorm 1 TABLET By mouth As needed every 8 hr for urinary pain ZyrTEC Allergy 10MG Oral Capsule, Liquid Filled 03/12/2023 Unknown By Mouth Daily 1 CAPSULE 4086883 RxNorm 1 CAPSULE By Mouth Daily Fluticasone 0.05MG/1Actuati on Nasal [place] 03/12/2023 Unknown Nasal Daily 1 Sprays 7035712 RxNorm 1 Spr ays Nasal Daily Azithromycin 500MG Oral Tablet 06/04/2024 Unknown By Mouth x1 NOW 2 TABLET 967015 RxNorm 2 TABLET By Mouth x1 NOW [...] Status Code Code System SEASONAL ALLERGY active 694776440 SNO MED-CT FAMILY PLANNING 06/20/2020 active 032289092 SNO MED-CT BITE OF INSECT active 853082797 SNOME D-CT ES OF VAGINA 08/07/2022 active 97671341 S NOMED-CT MENORRHAGIA active 266420901 SNOMED-C T PAINFUL NECK active 07252119 SNOMED- CT ADHD OF CHILDHOOD 07/22/2019 resolved 694902239 S NOMED-CT SEASONAL NASAL ALLERGY 07/22/2019 resolved 460194 001 SNOMED-CT HISTORY OF CHICKENPOX 07/22/2019 resolved 4501775 08 SNOMED-CT Allergies and Adverse Reactions Allergy Substance Reaction Severity Start Date Concern Status Co de Code System Active seasonal allergies Active No Known Drug Allergies Active 823111839 SNOMED-CT No Known Drug Allergies Active 045406533 SNOMED-CT Plan of Treatment Description Due Date Details Instructions DEPRESSION SCREENING DUE 06/20/2021 Future Order Description Future Order Date Futu re Order Loinc: CULTURE URINE 02/20/2023 LOINC: 630-4 TRICHOMONAS VAGINALIS FEMALE RNA QUAL LOINC: 59002-7 GC/CHLAMYDIA PCR [place] 02/20/2023 LOINC: 448 06-8 CULTURE YEAST, WITH IDENTIFICATION 02/20/2023 LOINC: 03572-1 BACTERIAL VAGINOSIS RAPID TEST 02/20/2023 LOINC: 6410-5 Encounters Encounter Diagnosis Start Date Code Code Sys tem Urinary tract infectious disease 02/20/2023 06979412 SNOMED-CT Personal Care Team Section Performer Name Performer Role Active Date Inactive Da te Progress Notes [facility] 02/20/2023 19:27 Admission Date/Time: 02/20/2023 [...] up. This examination was transcribed using the Vimbly voice recognition system without human door machine operator. In an effort to expedite patient care, this report has not been adjusted for typographical, or medical or syntax by a trained medical records tech. Allergy Table Allergen Type Reaction seasonal allergies [...] NEGATIVE 02/20/2023 18:38 02/20/2023 18:43 final LOT#: [id number] 02/20/2023 18:38 02/20/2023 18:43 final EXP DATE: [...] day X 7 DAYS 02/20/2023 JOSUE FULTON [place]-28 30 MCG-0.15 MG; NA Oral Tablet 1 TABLET By Mouth Daily 12/25/2022 Blanco Gallego Methocarbamol 750MG Oral Tablet 1-2 TABLET By Mouth As needed every 8 hr 12/25/2022 Blanco Gallego
--- OUTSIDE RECORDS SUMMARY | 2025-01-22 07:31 | XMS_ITS ---
Author Organization Unknown Address [address] [place] [address] [phone] Phone Care Team Providers Care Structural Layout Worker Name Role Phone Blanco Gallego Attending Unavailable [...] em Smoking History Never smoker (Never Smoked) 769346939 SNOMED CT Sex Female Sexual Orientation Straight or Heterosexual 73258620 SNOMED CT Gender Identity Female 53071069798987 [address] Vital Signs Vital Sign Value Unit [facility] Value [facility] Unit Date/Time Recent/Initial? Code Code System Body Mass Index 21.85 kg/m2 06/07/2022 14:23 Initial 56366 -5 [facility] Body Mass Index Percentile 57 % 06/07/2022 14:23 Initial 81254 -9 [facility] Systolic Blood Pressure 118 mm[Hg] 06/07/2022 14:23 Initial 8480- 6 [facility] Diastolic Blood Pressure 72 mm[Hg] 06/07/2022 14:23 Initial 8462- 4 [facility] Body Surface Area 1.75 m2 06/07/2022 14:23 Initial 3140- 1 [facility] Height 171.450 0 cm 67.50 in 06/07/2022 14:23 Initial 8302- 2 [facility] O2 Saturation 99 % 2021 14:23 Initial 30845 -5 [facility] Pulse 107.0 /min 06/07/2022 14:23 Initial 8867- 4 [facility] Respiration 20 /min 06/07/20 14:23 Initial 9279- 1 [facility] Temperature 36.6 Antonella 97.8 F 06/07/20 14:23 Initial 8310- 5 [facility] Weight 64.23 kg 141.60 lbs 06/07/2022 14:23 Initial 53945 -7 [facility] Medications Medication Start Date End Date Route Frequency Dose Code Code System Medication Instructions Home Meds predniSONE 50MG Oral Tablet 06/07/2022 07/31/2022 By Mouth Daily 1 TABLET 862525 RxNorm 1 TABLET By Mouth Daily 30MCG-0.15MG-NA Oral Tablet 06/07/2022 09/12/2022 By Mouth Daily 1 TABLET 501321 RxNorm 1 TABLET By Mouth Daily Diflucan 150MG Oral Tablet 08/07/2022 09/12/2022 By Mouth x1 NOW 1 TABLET 316494 RxNorm 1 TABLET By Mouth x1 NOW FOR MARCH REPEAT IN 72 HOURS Radha 28 3MG-0.02MG Oral Tablet 09/12/2022 12/25/2022 By Mouth Once a day 1 TABLET RxNorm 1 TABLET By Mouth Once a day Medrol Dosepak 4MG Oral Tablet 12/25/2022 02/20/2023 By Mouth As Directed 1 PACK 874607 RxNorm 1 PACK By Mouth As Directed Methocarbamol 750MG Oral Tablet 12/25/2022 03/12/2023 By Mouth As needed every 8 hr 734223 RxNorm 1-2 TABLET By Mouth As needed every 8 hr [place]-28 30 MCG-0.15 MG; NA Oral Tablet 12/25/2022 03/12/2023 By Mouth Daily 1 TABLET 430293 RxNorm 1 TABLET By Mouth Daily Macrobid 100MG Oral Capsule 02/20/2023 03/12/2023 By mouth Twice a day 1 TABLET 989545 RxNorm 1 TABLET By mouth Twice a day X 7 DAYS Pyridium 100MG Oral Tablet 02/20/2023 03/12/2023 By mouth As needed every 8 hr 1 TABLET 7832777 RxNorm 1 TABLET By mouth As needed every 8 hr for urinary pain ZyrTEC Allergy 10MG Oral Capsule, Liquid Filled 03/12/2023 Unknown By Mouth Daily 1 CAPSULE 7958489 RxNorm 1 CAPSULE By Mouth Daily Fluticasone 0.05MG/1Actuati on Nasal [place] 03/12/2023 Unknown Nasal Daily 1 Sprays 4828095 RxNorm 1 Spr ays Nasal Daily Azithromycin 500MG Oral Tablet 06/04/2024 Unknown By Mouth x1 NOW 2 TABLET 660107 RxNorm 2 TABLET By Mouth x1 NOW [...] Status Code Code System SEASONAL ALLERGY active 875439556 SNO MED-CT FAMILY PLANNING 06/20/2020 active 357724480 SNO MED-CT BITE OF INSECT active 738479368 SNOME D-CT ES OF VAGINA 08/07/2022 active 07922590 S NOMED-CT MENORRHAGIA active 082291083 SNOMED-C T PAINFUL NECK active 44776068 SNOMED- CT ADHD OF CHILDHOOD 07/22/2019 resolved 660928256 S NOMED-CT SEASONAL NASAL ALLERGY 07/22/2019 resolved 165085 001 SNOMED-CT HISTORY OF CHICKENPOX 07/22/2019 resolved 3909379 08 SNOMED-CT Allergies and Adverse Reactions Allergy Substance Reaction Severity Start Date Concern Status Co de Code System Active seasonal allergies Active No Known Drug Allergies Active 651099414 SNOMED-CT No Known Drug Allergies Active 097524024 SNOMED-CT Plan of Treatment Description Due Date Details Instructions DEPRESSION SCREENING DUE 06/20/2021 Encounters Encounter Diagnosis Start Date Code Code Sys tem Well child visit 06/07/2022 355198652 SNOMED-CT Personal Care Team Section Performer Name Performer Role Active Date Inactive Da te Progress Notes [facility] 06/07/2022 15:22 All Demographics Patient Name Age Sex Visit Number Admission Date/Time Attending Physician Date of Service Room and Bed Emergency Contact NELA MANZANARES 2005 16 years Female [id number] 06/07/2022 14:22 Julián Simeon 06/07/2022 402 06/07/2022 14:25 Accompanied By: Parent Parent, mother X. Parent, father Guardian Relative manager services Caregiver Family Protective services Friend Healthcare provider Law enforcement Strategic Consultant / EMS Spouse / SO Other: Preferred Language: Albanian. Vital Signs: This Visit Date/Time BP (mm/Hg) [...] environment active No Known Drug Allergies medication [id number] Nutrition X. Daily fruits and vegetables Iron [...] ALL CAPITALIZED = Focus area for this [facility] Visit Constitutional: None. EYES: None. Head, EARS, NOSE, AND THROAT: None. CARDIOVASCULAR: None. RESPIRATORY: None. GASTROINTESTINAL: None. GENITOURINARY: None. MUSCULOSKELETAL: None. SKIN: None. NEUROLOGICAL: None. Other: None. PHYSICAL EXAMINATION ALL CAPITALIZED and = Focus Area for this [facility] Visit GENERAL: x Well-appearing adolescent x [...] Record reviewed Up-to-date for age Administered Today: [place] Screening Depression Screening (annually) Screening Tool Used: [...] year Next Visit: Referral to: 16 y/o [facility] - Anticipatory guidance and bright futures discussed. Discussed control methods and will start patient on [place]. Patient to notify office if she is having any side effects. Patient states she is having anxiety, offered multiple options for managing anxiety, patient declines at this time.
--- OUTSIDE RECORDS SUMMARY | 2025-01-22 07:31 | XMS_ITS ---
Author Organization Unknown Address [address] [place], [place] [phone] Phone Care Team Providers Care Circular Saw Operator Name Role Phone mattyKlausSHERMAN Machado Social History Type Status Start Date End Date Code Code Syst em Smoking History Never smoker (Never Smoked) 949602721 SNOMED CT Sex Female Sexual Orientation Straight or Heterosexual 62205547 SNOMED CT Gender Identity Female 81351650156364 [address] Medications Medication Start Date End Date Route Frequency Dose Code Code System Medication Instructions Home Meds ZyrTEC Allergy 10MG Oral Capsule, Liquid Filled 03/12/2023 Unknown By Mouth Daily 1 CAPSULE 0240158 RxNorm 1 CAPSULE By Mouth Daily Fluticasone 0.05MG/1Actuatio n Nasal [place] 03/12/2023 Unknown Nasal Daily 1 Sprays 3468310 RxNorm 1 Spra ys Nasal Daily Azithromycin 500MG Oral Tablet 06/04/2024 Unknown By Mouth x1 NOW 2 TABLET 433947 RxNorm 2 TABLET By Mouth x1 NOW [...] Status Code Code System SEASONAL ALLERGY active 353641586 SNO MED-CT FAMILY PLANNING 06/20/2020 active 822742815 SNO MED-CT BITE OF INSECT active 418416015 SNOME D-CT ES OF VAGINA 08/07/2022 active 99741051 S NOMED-CT MENORRHAGIA active 905284538 SNOMED-C T PAINFUL NECK active 57153291 SNOMED- CT ADHD OF CHILDHOOD 07/22/2019 resolved 207358266 S NOMED-CT SEASONAL NASAL ALLERGY 07/22/2019 resolved 647176 001 SNOMED-CT HISTORY OF CHICKENPOX 07/22/2019 resolved 0282769 08 SNOMED-CT Allergies and Adverse Reactions Allergy Substance Reaction Severity Start Date Concern Status Co de Code System Active seasonal allergies Active No Known Drug Allergies Active 959438073 SNOMED-CT No Known Drug Allergies Active 510170979 SNOMED-CT Plan of Treatment Description Due Date Details Instructions DEPRESSION SCREENING DUE 06/20/2021 Encounters Encounter Diagnosis Start Date Code Code Sys tem Dysuria 06/03/2024 24276011 SNOMED-CT Personal Care Team Section Performer Name Performer Role Active Date Inactive Da te
--- OUTSIDE RECORDS SUMMARY | 2025-01-22 07:32 | XMS_ITS | Referral Summary ---
Author Organization [facility] Address [address] [place] [address] Care Team Providers Care Tack Picker Name Role Phone Faustion Matta MD Primary Care Provider [phone] Source Comments [facility],non-owned Affiliates and Associated Physician Practices is amultiple site organization consisting of ambulatory clinics and hospital sitesin [place], [place], [place] and [place]. This disclosure is being madepursuant to the Care Everywhere program and may not contain all information available regarding this patient. Last updated 18.[facility] Encounters Date Type Department Care Team Description 12/15/2024 Telephone [facility] [address] [place] [address] Akosua Burns Appointment 11/24/2024 Orders Only [facility] - PANEL MAKER [address] [facility] [address] [place] [phone] Jennifer Paul MD 11/19/2024 1:00 PM PRODUCTION PLANNING MANAGER - 11/19/2024 11:59 PM PRODUCTION PLANNING MANAGER Hospital Encounter [facility] [address] [place] [address] Tiff Arriaza MD Discharge Disposition: Home or Self Care 11/03/2024 Orders Only [facility] [address] [place] [address] Britany Garcia, RECYCLING COORDINATOR-INDUSTRY SEGMENT SPECIALIST Abnormal genetic test in ; Abnormal ultrasound 11/02/2024 Orders Only [facility] [place] [address] Shania Mcintosh RN 11/02/2024 Telephone [facility] [address] [place] [address] Britany Garcia, RECYCLING COORDINATOR-INDUSTRY SEGMENT SPECIALIST LABS ONLY 10/26/2024 Telephone [facility] [address] [place] [address] Akosua Burns Appointment from Last 3 Months [...] CYTOMEGALOVIRUS AB IGG AVIDITY 11/24/2024 2:44 PM PRODUCTION PLANNING MANAGER SONOGRAM - COMPLETE Routine 11/19/2024 1 :11 PM PRODUCTION PLANNING MANAGER Encounter for ultrasound (HCC) Rh negative, antepartum (HCC) Rubella non-immune status, antepartum (HCC) Primigravida, antepartum ([facility]) 28 weeks gestation of (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) Abnormal genetic test in CYTOMEGALOVIRUS ANTIBODY IGG BLOOD 11/10/2024 1:50 PM PRODUCTION PLANNING MANAGER from Last 3 Months Results * CYTOMEGALOVIRUS AB IGG AVIDITY (11/24/2024 2:44 PM PRODUCTION PLANNING MANAGER) Pathologist [facility] Cytomegalovirus Antibody IgG Avidity Index 0.90 [...] analytical performance characteristics have been determined by [employer]. It has not been cleared or approved by FDA. This assay has been validated pursuant to the CLIA regulations and is used for clinical purposes. 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 [...] 3 lb 8 oz EFW by Hadlock (RIO-EO-IV-FL) appropriate Growth Overview Exam date [place] BPD [...] redraw of CMV Avidity Coding ====== Procedures 56874: US Preg Uterus Follow Up [email or web address] PACS Anatomical Region Laterality Modality Other 11/19/2024 1:11 PM PRODUCTION PLANNING MANAGER Jonny Ruizcherie [facility] ORDERABLES * (ABNORMAL) CYTOMEGALOVIRUS ANTIBODY IGG BLOOD (11/10/2024 1:50 PM PRODUCTION PLANNING MANAGER) Cytomegalovirus Antibody IgG >10.00(H) U/mL [facility] Comment: U/mL Interpretation ----- <0.60 Negative 0.60-0.69 Equivocal > or = 0.70 Positive A positive result indicates that the patient has antibody to CMV. It does not differentiate between an active or past infection. Test Performed at: [facility] [address] [place] [address] PINEDA TAM MD 11/10/2024 1:50 PM PRODUCTION PLANNING MANAGER 11/10/2024 1:53 PM PRODUCTION PLANNING MANAGER Britany Garcia RECYCLING COORDINATOR-INDUSTRY SEGMENT SPECIALIST LAB - CHEMI STRY ORDERABLES [facility] [address] [place] [address] from Last 3 Months Care Teams Tack Picker Relationship Specialty Start Date End Date Faustino Matta MD [address] [address] PCP - General Pediatrics 08/05/12
--- OUTSIDE RECORDS SUMMARY | 2025-01-22 07:32 | XMS_ITS | Clinical Summary ---
Author Organization [facility] Address [address] [address] Care Team Providers Care Helicopter Repairer Name Role Phone Faustino Matta MD Primary Care Provider [phone] Source Comments [facility],non-owned Affiliates and Associated Physician Practices is amultiple site organization consisting of ambulatory clinics and hospital sitesin [place], [place] and [place]. This disclosure is being madepursuant to the Care Everywhere program and may not contain all information available regarding this patient. Last updated 18.[facility] Allergies No known active allergies [...] Care Team Description 12/15/2024 Telephone [facility] [address] [place] [address] Akosua Burns Appointment 11/24/2024 Orders Only [facility] - BUILDINGS AND GROUNDS COORDINATOR [address] [place] [address] Jennifer Paul MD 11/19/2024 1:00 PM LEARNING SUPPORT TEACHER - 11/19/2024 11:59 PM LEARNING SUPPORT TEACHER Hospital Encounter [facility] [address] [place] [address] Tiff Arriaza MD Discharge Disposition: Home or Self Care 11/03/2024 Orders Only [facility] [address] [place] [address] Britany Garcia, BOBBIN CLEANER-STRATEGIC SOURCING CONSULTANT Abnormal genetic test in ; Abnormal ultrasound 11/02/2024 Orders Only [facility] [address] [place] [address] Shania Mcintosh RN 11/02/2024 Telephone [facility] [address] [place] [address] Britany Garcia, BOBBIN CLEANER-STRATEGIC SOURCING CONSULTANT LABS ONLY 10/26/2024 Telephone [facility] [address] [place] [address] Akosua Burns Appointment from Last 3 Months [...] CYTOMEGALOVIRUS AB IGG AVIDITY 11/24/2024 2:44 PM LEARNING SUPPORT TEACHER SONOGRAM - COMPLETE Routine 11/19/2024 1 :11 PM LEARNING SUPPORT TEACHER Encounter for ultrasound (HCC) Rh negative, antepartum (HCC) Rubella non-immune status, antepartum (HCC) Primigravida, antepartum ([facility]) 28 weeks gestation of ([facility]) 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 It has not been cleared or approved by FDA. This assay has been validated pursuant to the CLIA regulations and is used for clinical purposes. 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 [...] 3 lb 8 oz EFW by Hadlock ([id number]) appropriate Growth Overview Exam date [place] BPD [...] redraw of CMV Avidity Coding ====== Procedures 66315: US Preg Uterus Follow Up [facility] PACS Anatomical Region Laterality Modality Other 11/19/2024 1:11 PM LEARNING SUPPORT TEACHER Jonny Cabrera DO [facility] ORDERABLES * (ABNORMAL) CYTOMEGALOVIRUS ANTIBODY IGG BLOOD (11/10/2024 1:50 PM LEARNING SUPPORT TEACHER) Cytomegalovirus Antibody IgG >10.00(H) U/mL [employer] Comment: U/mL Interpretation ----- <0.60 Negative 0.60-0.69 Equivocal > or = 0.70 Positive A positive result indicates that the patient has antibody to CMV. It does not differentiate between an active or past infection. Test Performed at: [facility] [address] [facility] [place] [address] PINEDA TAM MD 11/10/2024 1:50 PM LEARNING SUPPORT TEACHER 11/10/2024 1:53 PM LEARNING SUPPORT TEACHER Britany Garcia APRN-STRATEGIC SOURCING CONSULTANT LAB - CHEMI STRY ORDERABLES [facility] [address] [place] [address] from Last 3 Months Care Teams Helicopter Repairer Relationship Specialty Start Date End Date Faustino Matta MD [address] [address] PCP - General Pediatrics 08/05/12
--- OUTSIDE RECORDS SUMMARY | 2025-01-22 07:32 | XMS_ITS ---
Author Organization Unknown Address [address] [place] [phone] Phone Care Team Providers Care A P Manager Name Role Phone Blanco Gallego Attending [...] em Smoking History Never smoker (Never Smoked) 190370586 SNOMED CT Sex Female Sexual Orientation Straight or Heterosexual 20776117 SNOMED CT Gender Identity Female [id number] [address] Medications Medication Start Date End Date Route Frequency Dose Code Code System Medication Instructions Home Meds Medrol Dosepak 4MG Oral Tablet 12/25/2022 02/20/2023 By Mouth As Directed 1 PACK 004848 RxNorm 1 PACK By Mouth As Directed Methocarbamol 750MG Oral Tablet 12/25/2022 03/12/2023 By Mouth As needed every 8 hr 354229 RxNorm 1-2 TABLET By Mouth As needed every 8 hr [place]-28 30 MCG-0.15 MG; NA Oral Tablet 12/25/2022 03/12/2023 By Mouth Daily 1 TABLET 186979 RxNorm 1 TABLET By Mouth Daily Macrobid 100MG Oral Capsule 02/20/2023 03/12/2023 By mouth Twice a day 1 TABLET 756387 RxNorm 1 TABLET By mouth Twice a day X 7 DAYS Pyridium 100MG Oral Tablet 02/20/2023 03/12/2023 By mouth As needed every 8 hr 1 TABLET 4418377 RxNorm 1 TABLET By mouth As needed every 8 hr for urinary pain ZyrTEC Allergy 10MG Oral Capsule, Liquid Filled 03/12/2023 Unknown By Mouth Daily 1 CAPSULE 8637747 RxNorm 1 CAPSULE By Mouth Daily Fluticasone 0.05MG/1Actuati on Nasal [place] 03/12/2023 Unknown Nasal Daily 1 Sprays 3846207 RxNorm 1 Spr ays Nasal Daily Azithromycin 500MG Oral Tablet 06/04/2024 Unknown By Mouth x1 NOW 2 TABLET 383125 RxNorm 2 TABLET By Mouth x1 NOW [...] Status Code Code System SEASONAL ALLERGY active 625757460 SNO MED-CT FAMILY PLANNING 06/20/2020 active 500734289 SNO MED-CT BITE OF INSECT active 880832581 SNOME D-CT ES OF VAGINA 08/07/2022 active 16617975 S NOMED-CT MENORRHAGIA active 351951402 SNOMED-C T PAINFUL NECK active 36602519 SNOMED- CT ADHD OF CHILDHOOD 07/22/2019 resolved 062643182 S NOMED-CT SEASONAL NASAL ALLERGY 07/22/2019 resolved 401407 001 SNOMED-CT HISTORY OF CHICKENPOX 07/22/2019 resolved 8758317 08 SNOMED-CT Allergies and Adverse Reactions Allergy Substance Reaction Severity Start Date Concern Status Co de Code System Active seasonal allergies Active No Known Drug Allergies Active 689871431 SNOMED-CT No Known Drug Allergies Active 405143013 SNOMED-CT Plan of Treatment Description Due Date Details Instructions DEPRESSION SCREENING DUE 06/20/2021 Personal Care Team Section Performer Name Performer Role Active Date Inactive David mccallum
--- OUTSIDE RECORDS SUMMARY | 2025-01-22 07:32 | XMS_ITS ---
Author Organization Unknown Address [address] [place] [phone] Phone Care Team Providers Care Crozer Operator Name Role Phone VIRAL Brody Attending Unavailable [...] MICR O - Collect Date/Time: 06/03/2024 15:21 [facility] ID: [id number] [address] [place] [address], [id number] LOINC: Test Value Unit Reference Range Code [...] em Smoking History Never smoker (Never Smoked) 154537142 SNOMED CT Sex Female Sexual Orientation Straight or Heterosexual 36428561 SNOMED CT Gender Identity Female 11126153653684 [address] Vital Signs Vital Sign Value Unit [place] Value [place] Unit Date/Time Recent/Initial? Code Code System Body Mass Index 25.85 kg/m2 06/03/2024 14:31 Initial 46666 -5 [facility] Body Mass Index Percentile 82 % 06/03/2024 14:31 Initial 38391 -9 LOINC Systolic Blood Pressure 118 mm[Hg] [...] O2 Saturation 100 % 2023 14:31 Initial 82276 -5 [facility] Pulse 93.0 /min 06/03/2024 14:31 Initial 8867- 4 [facility] Temperature 36.7 Antonella 98.0 F 06/03/20 14:31 Initial 8310- 5 [facility] Weight 77.11 kg 170.00 lbs 06/03/2024 14:31 Initial 02547 -7 [facility] Medications Medication Start Date End Date Route Frequency Dose Code Code System Medication Instructions Home Meds ZyrTEC Allergy 10MG Oral Capsule, Liquid Filled 03/12/2023 Unknown By Mouth Daily 1 CAPSULE 8816409 RxNorm 1 CAPSULE By Mouth Daily Fluticasone 0.05MG/1Actuatio n Nasal [place] 03/12/2023 Unknown Nasal Daily 1 Sprays 1737348 RxNorm 1 Spra ys Nasal Daily Azithromycin 500MG Oral Tablet 06/04/2024 Unknown By Mouth x1 NOW 2 TABLET 746319 RxNorm 2 TABLET By Mouth x1 NOW [...] sex practices. 3. -Keep follow up with [facility] for next week. -Given handouts for [...] up. This examination was transcribed using the [employer] voice recognition system without a human huc. To expedite patient care, this report has not been adjusted for typographical, or medical, or syntax by a trained nurses medical assistants phlebotomists. Hospital Discharge Instructions Should you have any questions prior to discharge, please contact a member of your healthcare team. If you have left the hospital and have any questions, please contact your primary care physician. Reason For Referral No Data Found Problems Problem Start Date Resolved Date Status Code Code System SEASONAL ALLERGY active 247498929 SNO MED-CT FAMILY PLANNING 06/20/2020 active 990359843 SNO MED-CT BITE OF INSECT active 200340286 SNOME D-CT ES OF VAGINA 08/07/2022 active 48423331 S NOMED-CT MENORRHAGIA active 249671362 SNOMED-C T PAINFUL NECK active 45703506 SNOMED- CT ADHD OF CHILDHOOD 07/22/2019 resolved 551548357 S NOMED-CT SEASONAL NASAL ALLERGY 07/22/2019 resolved 070896 001 SNOMED-CT HISTORY OF CHICKENPOX 07/22/2019 resolved 4040997 08 SNOMED-CT Allergies and Adverse Reactions Allergy Substance Reaction Severity Start Date Concern Status Co de Code System Active seasonal allergies Active No Known Drug Allergies Active 463768493 SNOMED-CT No Known Drug Allergies Active 552180909 SNOMED-CT Plan of Treatment Description Due Date Details Instructions DEPRESSION SCREENING DUE 06/20/2021 Future Order Description Future Order Date Futu re Order Loinc: TRICHOMONAS VAGINALIS FEMALE RNA QUAL LOINC: 23851-6 GC PCR [facility] 06/03/2024 LOINC: 49869-4 CHLAMYDIA PCR [facility] 06/03/2024 LOINC: 86157- 5 BACTERIAL VAGINOSIS RAPID TEST 06/03/2024 LOINC: 6410-5 CULTURE YEAST, WITH IDENTIFICATION 06/03/2024 LOINC: 70104-0 Encounters Encounter Diagnosis Start Date Code Code Sys tem Acute vaginitis 06/03/2024 53531465 SNOMED-CT Personal Care Team Section Performer Name Performer Role Active Date Inactive Da te Progress Notes [facility] 06/03/2024 15:50 Date of Service: 06/03/2024 [...] April. She has an appointment scheduled with [facility] for an OBGYN next week. She [...] sex practices. 3. -Keep follow up with [facility] for next week. -Given handouts for [...] up. This examination was transcribed using the [employer] voice recognition system without a human huc. To expedite patient care, this report has not been adjusted for typographical, or medical, or syntax by a trained nurses medical assistants phlebotomists. Meds Given This Visit: Meds ordered and administered this visit: No Current Medications Available Discharge Med List: Discharge Medications Medication Special Instructions Start Date Prescribing MD Fluticasone 0.05MG/1Actuation Nasal [place] 1 Sprays Nasal Daily 03/12/2023 Blanco Gallego ZyrTEC Allergy 10MG Oral Capsule, Liquid Filled 1 CAPSULE By Mouth Daily 03/12/2023 Blanco Gallego
--- OUTSIDE RECORDS SUMMARY | 2025-01-22 07:32 | XMS_ITS ---
Author Organization Unknown Address [address], [place] [phone] Phone Care Team Providers Care Clamp Remover Name Role Phone JOSUE FULTON EDMOND Attending Unavailable Results CULTURE YEAST, WITH IDENTIFI CATION - Collect Date/Time: 02/20/2023 18:42 [facility] ID: [id number] [address], [place], [id number] LOINC: 5048-4 Test Value Unit Reference Range Code Code System Flag SOURCE: VAGINAL STATUS: FINAL ISOLATE 1: Margoth albicans A TRICHOMONAS VAGINALIS FEMALE RNA QUAL - Collect Date/Time: 02/20/2023 18:40 [facility] ID: [id number] [address], [place], [phone] LOINC: 93251-7 Test Value Unit Reference Range Code Code System Flag TRICHOMONAS VAGINALISRNA, QL TMA NOT DETECTED NOT DETECTED GC/CHLAMYDIA PCR [facility] ct Date/Time: 02/20/2023 18:40 [facility] ID: [id number] [address], [place], [phone] LOINC: 5048-4 Test Value Unit Reference Range Code Code System Flag GONORRHEA PCR NOT DETECTED NORMAL: NOT DETECTED CHLAMYDIA PCR NOT DETECTED NORMAL: NOT DETECTED BACTERIAL VAGINOSIS RAPID TE ST - Collect Date/Time: 02/20/2023 18:40 [facility] ID: [id number] [address], [place], [address] LOINC: 6410-5 Test Value Unit Reference Range Code Code System Flag BACTERIAL VAGINOSIS NEGATIVE NORMAL: NEGATIVE Social History Type Status Start Date End Date Code Code Syst em Smoking History Never smoker (Never Smoked) 522253217 SNOMED CT Sex Female Sexual Orientation Straight or Heterosexual 09024971 SNOMED CT Gender Identity Female 35133489182061 [address] Medications Medication Start Date End Date Route Frequency Dose Code Code System Medication Instructions Home Meds Methocarbamol 750MG Oral Tablet 12/25/2022 03/12/2023 By Mouth As needed every 8 hr 901848 RxNorm 1-2 TABLET By Mouth As needed every 8 hr [place]-28 30 MCG-0.15 MG; NA Oral Tablet 12/25/2022 03/12/2023 By Mouth Daily 1 TABLET 736230 RxNorm 1 TABLET By Mouth Daily Macrobid 100MG Oral Capsule 02/20/2023 03/12/2023 By mouth Twice a day 1 TABLET 753947 RxNorm 1 TABLET By mouth Twice a day X 7 DAYS Pyridium 100MG Oral Tablet 02/20/2023 03/12/2023 By mouth As needed every 8 hr 1 TABLET 8437970 RxNorm 1 TABLET By mouth As needed every 8 hr for urinary pain ZyrTEC Allergy 10MG Oral Capsule, Liquid Filled 03/12/2023 Unknown By Mouth Daily 1 CAPSULE 3255597 RxNorm 1 CAPSULE By Mouth Daily Fluticasone 0.05MG/1Actuati on Nasal [place] 03/12/2023 Unknown Nasal Daily 1 Sprays 9977132 RxNorm 1 Spr ays Nasal Daily Azithromycin 500MG Oral Tablet 06/04/2024 Unknown By Mouth x1 NOW 2 TABLET 322088 RxNorm 2 TABLET By Mouth x1 NOW [...] Status Code Code System SEASONAL ALLERGY active 011030698 SNO MED-CT FAMILY PLANNING 06/20/2020 active 406237855 SNO MED-CT BITE OF INSECT active 354055873 SNOME D-CT MARGOTH OF VAGINA 08/07/2022 active 61548229 S NOMED-CT MENORRHAGIA active 111224777 SNOMED-C T PAINFUL NECK active 22374565 SNOMED- CT ADHD OF CHILDHOOD 07/22/2019 resolved 657411678 S NOMED-CT SEASONAL NASAL ALLERGY 07/22/2019 resolved 420878 001 SNOMED-CT HISTORY OF CHICKENPOX 07/22/2019 resolved 4048056 08 SNOMED-CT Allergies and Adverse Reactions Allergy Substance Reaction Severity Start Date Concern Status Co de Code System Active seasonal allergies Active No Known Drug Allergies Active 524213164 SNOMED-CT No Known Drug Allergies Active 788668600 SNOMED-CT Plan of Treatment Description Due Date Details Instructions DEPRESSION SCREENING DUE 06/20/2021 Encounters Encounter Diagnosis Start Date Code Code Sys tem Dysuria 02/20/2023 28270765 SNOMED-CT Personal Care Team Section Performer Name Performer Role Active Date Inactive David mccallum
--- OUTSIDE RECORDS SUMMARY | 2025-01-22 07:32 | XMS_ITS ---
Author Organization Unknown Address [address] [place] [phone] Phone Care Team Providers Care Geospatial Analyst Name Role Phone Blanco Gallego Attending Unavailable [...] ANTIGEN - Collec t Date/Time: 03/12/2023 14:51 [facility] ID: [id number] [address] [place], [place], [phone] LOINC: 6556-5 Test Value Unit Reference Range Code Code System Flag COVID RAPID ANTI NEGATIVE NORMAL: NEGATIVE LOT#: [id number] Exp Date: 12/07/2023 QC: ACCEPTABLE STREP A SCREEN - Collect Sha e/Time: 03/12/2023 14:50 [facility] ID: [id number] [address] [place], [place], [phone] LOINC: 6556-5 Test Value Unit Reference Range Code Code System Flag STREP SCREEN NEGATIVE NORMAL: NEGATIVE 6556-5 LOINC Lot#: [id number] Exp Date: 04/10/2024 QC STREP ACCEPTABLE Social History Type Status Start Date End Date Code Code Syst em Smoking History Never smoker (Never Smoked) 317476676 SNOMED CT Sex Female Sexual Orientation Straight or Heterosexual 93834119 SNOMED CT Gender Identity Female 38473328794487 [address] Vital Signs Vital Sign Value Unit [place] Value [place] Unit Date/Time Recent/Initial? Code Code System Body Mass Index 23.57 kg/m2 03/12/2023 14:40 Initial 78867 -5 LOINC Body Mass Index Percentile 71 % 03/12/2023 14:40 Initial 42821 -9 LOINC Systolic Blood Pressure 100 mm[Hg] 03/12/2023 14:40 Initial 8480- 6 LOINC Diastolic Blood Pressure 68 mm[Hg] 03/12/2023 14:40 Initial 8462- 4 LOINC Body Surface Area 1.84 m2 03/12/2023 14:40 Initial 3140- 1 LOINC Height 172.720 0 cm 68.00 in 03/12/2023 14:40 Initial 8302- 2 INC O2 Saturation 95 % 2022 14:40 Initial 52218 -5 LOINC Pulse 56.0 /min 03/12/2023 14:40 Initial 8867- 4 LOINC Respiration 16 /min 03/12/20 14:40 Initial 9279- 1 INC Temperature 37.5 Antonella 99.5 F 03/12/20 14:40 Initial 8310- 5 [facility] Weight 70.31 kg 155.00 lbs 03/12/2023 14:40 Initial 33078 -7 [facility] Medications Medication Start Date End Date Route Frequency Dose Code Code System Medication Instructions Home Meds Methocarbamol 750MG Oral Tablet 12/25/2022 03/12/2023 By Mouth As needed every 8 hr 087036 RxNorm 1-2 TABLET By Mouth As needed every 8 hr [place]-28 30 MCG-0.15 MG; NA Oral Tablet 12/25/2022 03/12/2023 By Mouth Daily 1 TABLET 441332 RxNorm 1 TABLET By Mouth Daily Macrobid 100MG Oral Capsule 02/20/2023 03/12/2023 By mouth Twice a day 1 TABLET 206626 RxNorm 1 TABLET By mouth Twice a day X 7 DAYS Pyridium 100MG Oral Tablet 02/20/2023 03/12/2023 By mouth As needed every 8 hr 1 TABLET 9744734 RxNorm 1 TABLET By mouth As needed every 8 hr for urinary pain ZyrTEC Allergy 10MG Oral Capsule, Liquid Filled 03/12/2023 Unknown By Mouth Daily 1 CAPSULE 3762736 RxNorm 1 CAPSULE By Mouth Daily Fluticasone 0.05MG/1Actuati on Nasal [place] 03/12/2023 Unknown Nasal Daily 1 Sprays 0044398 RxNorm 1 Spr ays Nasal Daily Azithromycin 500MG Oral Tablet 06/04/2024 Unknown By Mouth x1 NOW 2 TABLET 859613 RxNorm 2 TABLET By Mouth x1 NOW [...] Status Code Code System SEASONAL ALLERGY active 056202663 SNO MED-CT FAMILY PLANNING 06/20/2020 active 545798921 SNO MED-CT BITE OF INSECT active 616232804 SNOME D-CT ES OF VAGINA 08/07/2022 active 41677350 S NOMED-CT MENORRHAGIA active 230718669 SNOMED-C T PAINFUL NECK active 51053967 SNOMED- CT ADHD OF CHILDHOOD 07/22/2019 resolved 467269929 S NOMED-CT SEASONAL NASAL ALLERGY 07/22/2019 resolved 179109 001 SNOMED-CT HISTORY OF CHICKENPOX 07/22/2019 resolved 0067418 08 SNOMED-CT Allergies and Adverse Reactions Allergy Substance Reaction Severity Start Date Concern Status Co de Code System Active seasonal allergies Active No Known Drug Allergies Active 119271289 SNOMED-CT No Known Drug Allergies Active 931150422 SNOMED-CT Plan of Treatment Description Due Date Details Instructions DEPRESSION SCREENING DUE 06/20/2021 Encounters Encounter Diagnosis Start Date Code Code Sys tem Seasonal allergic rhinitis 03/12/2023 002447936 S NOMED-CT Personal Care Team Section Performer Name Performer Role Active Date Inactive Da te Progress Notes [facility] 03/12/2023 15:06 Admission Date/Time: 03/12/2023 11:24 [...] is an 17 yo female presents to [facility] today for sore throat and cough. [...] records Referring and communicating with other health home health care coordinator x Obtaining and/or reviewing separately obtained history Independent interpretation of results and communicating results to the patient/family/caregiver x Performing a medically appropriate examination/evaluation Care coordination (not reported separately) x Discharge instructions given to patient. Ordered & Completed Meds Table: No Current Medications Available Discharge Med List: Discharge Medications: No Discharge Medications Available [facility] 03/12/2023 15:20 Current Date/Time: 03/12/2023 15:03 Patient Name: NELA MANZNAARES was seen at [facility] [phone] on Date of Service: 03/12/2023 . They may return to school on 03/13/2023 with No restrictions . .
--- OUTSIDE RECORDS SUMMARY | 2025-01-22 07:33 | XMS_ITS ---
Author Organization Unknown Address [address] [place] [phone] Phone Care Team Providers Care Pharmacy Account Director Name Role Phone TABATHA RODGERS Attending Unavailable [...] em Smoking History Never smoker (Never Smoked) 430026749 SNOMED CT Sex Female Sexual Orientation Straight or Heterosexual 64656834 SNOMED CT Gender Identity Female 28695073722685 [address] Medications Medication Start Date End Date Route Frequency Dose Code Code System Medication Instructions Home Meds predniSONE 50MG Oral Tablet 06/07/2022 07/31/2022 By Mouth Daily 1 TABLET 061657 RxNorm 1 TABLET By Mouth Daily [place]-28 30MCG-0.15MG-NA Oral Tablet 06/07/2022 09/12/2022 By Mouth Daily 1 TABLET 145340 RxNorm 1 TABLET By Mouth Daily Diflucan 150MG Oral Tablet 08/07/2022 09/12/2022 By Mouth x1 NOW 1 TABLET 098515 RxNorm 1 TABLET By Mouth x1 NOW FOR MARCH REPEAT IN 72 HOURS Radha 28 3MG-0.02MG Oral Tablet 09/12/2022 12/25/2022 By Mouth Once a day 1 TABLET RxNorm 1 TABLET By Mouth Once a day Medrol Dosepak 4MG Oral Tablet 12/25/2022 02/20/2023 By Mouth As Directed 1 PACK 888276 RxNorm 1 PACK By Mouth As Directed Methocarbamol 750MG Oral Tablet 12/25/2022 03/12/2023 By Mouth As needed every 8 hr 951979 RxNorm 1-2 TABLET By Mouth As needed every 8 hr [place]-28 30 MCG-0.15 MG; NA Oral Tablet 12/25/2022 03/12/2023 By Mouth Daily 1 TABLET 899546 RxNorm 1 TABLET By Mouth Daily Macrobid 100MG Oral Capsule 02/20/2023 03/12/2023 By mouth Twice a day 1 TABLET 735920 RxNorm 1 TABLET By mouth Twice a day X 7 DAYS Pyridium 100MG Oral Tablet 02/20/2023 03/12/2023 By mouth As needed every 8 hr 1 TABLET 9126731 RxNorm 1 TABLET By mouth As needed every 8 hr for urinary pain ZyrTEC Allergy 10MG Oral Capsule, Liquid Filled 03/12/2023 Unknown By Mouth Daily 1 CAPSULE 0118511 RxNorm 1 CAPSULE By Mouth Daily Fluticasone 0.05MG/1Actuati on Nasal [place] 03/12/2023 Unknown Nasal Daily 1 Sprays 6009805 RxNorm 1 Spr ays Nasal Daily Azithromycin 500MG Oral Tablet 06/04/2024 Unknown By Mouth x1 NOW 2 TABLET 587971 RxNorm 2 TABLET By Mouth x1 NOW [...] Status Code Code System SEASONAL ALLERGY active 149000940 SNO MED-CT FAMILY PLANNING 06/20/2020 active 811416149 SNO MED-CT BITE OF INSECT active 229974978 SNOME D-CT ES OF VAGINA 08/07/2022 active 87031427 S NOMED-CT MENORRHAGIA active 630160443 SNOMED-C T PAINFUL NECK active 72224824 SNOMED- CT ADHD OF CHILDHOOD 07/22/2019 resolved 732923036 S NOMED-CT SEASONAL NASAL ALLERGY 07/22/2019 resolved 385043 001 SNOMED-CT HISTORY OF CHICKENPOX 07/22/2019 resolved 4557006 08 SNOMED-CT Allergies and Adverse Reactions Allergy Substance Reaction Severity Start Date Concern Status Co de Code System Active seasonal allergies Active No Known Drug Allergies Active 353172820 SNOMED-CT No Known Drug Allergies Active 474106421 SNOMED-CT Plan of Treatment Description Due Date Details Instructions DEPRESSION SCREENING DUE 06/20/2021 Personal Care Team Section Performer Name Performer Role Active Date Inactive David mccallum
--- OUTSIDE RECORDS SUMMARY | 2025-01-22 07:33 | XMS_ITS | Patient Health Summary ---
Author Organization [facility] Address [address] [place] [address] Care Team Providers Care Radiopharmacist Name Role Phone Faustino Matta MD Primary Care Provider Note from [facility],non-owned Affiliates and Associated Physician Practices is amultiple site organization consisting of ambulatory clinics and hospital sitesin [place], [place], [place] and [place]. This disclosure is being madepursuant to the Care Everywhere program and may not contain all information available regarding this patient. Last updated 18.[facility] Allergies No known active allergies Medications * [...] CYTOMEGALOVIRUS AB IGG AVIDITY (11/24/2024 2:44 PM ACADEMIC SPECIALIST) [facility] Cytomegalovirus Antibody IgG Avidity Index 0.90 [...] analytical performance characteristics have been determined by [employer]. It has not been cleared or approved by FDA. This assay has been validated pursuant to the CLIA regulations and is used for clinical purposes. For additional information, please refer to [email or web address].[employer]/faq/TWF962 (This link is being provided for informational/ educational purposes only.) Test Performed at: [facility] [address] [place] [address] KWAKU SUMMERS MD,PHD,STARR 11/24/2024 2:44 PM ACADEMIC SPECIALIST 11/24/2024 2:45 PM ACADEMIC SPECIALIST Jennifer Paul MD LAB - SEROLOGY [facility] [address] [place] [address] * SONOGRAM - COMPLETE (11/19/2024 1:11 PM ACADEMIC SPECIALIST) Only the most recent of4 resultswithin the [...] 3 lb 8 oz EFW by [facility] ([id number]) appropriate Growth Overview Exam date [place] BPD [...] redraw of CMV Avidity Coding ====== Procedures 82352: US Preg Uterus Follow Up [facility] PACS Anatomical Region Laterality Modality Other 11/19/2024 1:11 PM ACADEMIC SPECIALIST Jonny Cabrera DO [facility] ORDERABLES * (ABNORMAL) CYTOMEGALOVIRUS ANTIBODY IGG BLOOD (11/10/2024 1:50 PM ACADEMIC SPECIALIST) Cytomegalovirus Antibody IgG >10.00(H) U/mL [facility] Comment: U/mL Interpretation ----- <0.60 Negative 0.60-0.69 Equivocal > or = 0.70 Positive A positive result indicates that the patient has antibody to CMV. It does not differentiate between an active or past infection. Test Performed at: [facility] [address] [place] [address] PINEDA TAM MD 11/10/2024 1:50 PM ACADEMIC SPECIALIST 11/10/2024 1:53 PM ACADEMIC SPECIALIST Britany Garcia APRN-FUEL YARD OPERATOR LAB - CHEMI STRY ORDERABLES [facility] [address] [place] [address] Care Teams Radiopharmacist Relationship Specialty Start Date End Date Faustino Matta MD [address] [facility] [address] [place] [address] PCP - General Pediatrics 08/05/12
--- OUTSIDE RECORDS SUMMARY | 2025-01-22 07:33 | XMS_ITS ---
Author Organization Unknown Address [address], [place] [phone] Phone Care Team Providers Care Tire Repairer Name Role Phone Shahanacristian Opal Attending Unavailable Results BACTERIAL VAGINOSIS RAPID TE ST - Collect Date/Time: 07/31/2022 17:20 [facility] ID: [id number] [address], [place], [address] LOINC: 6410-5 Test Value Unit Reference Range Code Code System Flag BACTERIAL VAGINOSIS NEGATIVE NORMAL: NEGATIVE CULTURE YEAST, WITH IDENTIFI CATION - Collect Date/Time: 07/31/2022 17:19 [facility] ID: [id number] [address], [place], [id number] LOINC: 5048-4 Test Value Unit Reference Range Code Code System Flag SOURCE: VAGINAL STATUS: FINAL ISOLATE 1: Margoth albicans A CULTURE: Culture in progress TRICHOMONAS VAGINALIS FEMALE RNA QUAL - Collect Date/Time: 07/31/2022 17:19 [facility] ID: [id number] [address], [place], [address] LOINC: 99327-6 Test Value Unit Reference Range Code Code System Flag TRICHOMONAS VAGINALISRNA, QL TMA NOT DETECTED NOT DETECTED CHLAMYDIA/GC URINE RNA, TMA APTIMA - Collect Date/Time: 07/31/2022 17:19 [facility] ID: [id number] [address], [place], [address] LOINC: 5048-4 Test Value Unit Reference Range Code Code System Flag CHLAMYDIA TRACHOMATISRNA, TMA, UROGENITAL NOT DETECTED NOT DETECTED NEISSERIA GONORRHOEAERNA, TMA, UROGENITAL NOT DETECTED NOT DETECTED Social History Type Status Start Date End Date Code Code Syst em Smoking History Never smoker (Never Smoked) 550772808 SNOMED CT Sex Female Sexual Orientation Straight or Heterosexual 03625459 SNOMED CT Gender Identity Female [id number] [address] Medications Medication Start Date End Date Route Frequency Dose Code Code System Medication Instructions Home Meds Anel-28 30MCG-0.15MG-NA Oral Tablet 06/07/2022 09/12/2022 By Mouth Daily 1 TABLET 278564 RxNorm 1 TABLET By Mouth Daily Diflucan [...] 02/20/2023 By Mouth As Directed 1 PACK 154526 RxNorm 1 PACK By Mouth As Directed Methocarbamol 750MG Oral Tablet 12/25/2022 03/12/2023 By Mouth As needed every 8 hr 656990 RxNorm 1-2 TABLET By Mouth As needed every 8 hr Peculiar-28 30 MCG-0.15 MG; NA Oral Tablet 12/25/2022 03/12/2023 By Mouth Daily 1 TABLET 445873 RxNorm 1 TABLET By Mouth Daily Macrobid 100MG Oral Capsule 02/20/2023 03/12/2023 By mouth Twice a day 1 TABLET 545021 RxNorm 1 TABLET By mouth Twice a day X 7 DAYS Pyridium 100MG Oral Tablet 02/20/2023 03/12/2023 By mouth As needed every 8 hr 1 TABLET 0004772 RxNorm 1 TABLET By mouth As needed every 8 hr for urinary pain ZyrTEC Allergy 10MG Oral Capsule, Liquid Filled 03/12/2023 Unknown By Mouth Daily 1 CAPSULE 2854904 RxNorm 1 CAPSULE By Mouth Daily Fluticasone 0.05MG/1Actuatio n Nasal [place] 03/12/2023 Unknown Nasal Daily 1 Sprays 9871363 RxNorm 1 Spra ys Nasal Daily Azithromycin 500MG Oral Tablet 06/04/2024 Unknown By Mouth x1 NOW 2 TABLET 194229 RxNorm 2 TABLET By Mouth x1 NOW [...] Status Code Code System SEASONAL ALLERGY active 592377655 SNO MED-CT FAMILY PLANNING 06/20/2020 active 209859009 SNO MED-CT BITE OF INSECT active 736983739 SNOME D-CT MARGOTH OF VAGINA 08/07/2022 active 55451382 S NOMED-CT MENORRHAGIA active 035076089 SNOMED-C T PAINFUL NECK active 14728030 SNOMED- CT ADHD OF CHILDHOOD 07/22/2019 resolved 194015809 S NOMED-CT SEASONAL NASAL ALLERGY 07/22/2019 resolved 029972 001 SNOMED-CT HISTORY OF CHICKENPOX 07/22/2019 resolved 5100792 08 SNOMED-CT Allergies and Adverse Reactions Allergy Substance Reaction Severity Start Date Concern Status Co de Code System Active seasonal allergies Active No Known Drug Allergies Active 041268579 SNOMED-CT No Known Drug Allergies Active 680504792 SNOMED-CT Plan of Treatment Description Due Date Details Instructions DEPRESSION SCREENING DUE 06/20/2021 Encounters Encounter Diagnosis Start Date Code Code Sys tem Noninflammatory disorder of the vagina 07/31/2022 22 475627 SNOMED-CT Personal Care Team Section Performer Name Performer Role Active Date Inactive Da te
--- OUTSIDE RECORDS SUMMARY | 2025-01-22 07:34 | XMS_ITS ---
Author Organization Unknown Address [address] [place] [phone] Phone Care Team Providers Care Press Operator Name Role Phone ATIYA Lezama MD [...] em Smoking History Never smoker (Never Smoked) 093875919 SNOMED CT Sex Female Sexual Orientation Straight or Heterosexual 37772338 SNOMED CT Gender Identity Female [id number] [address] Medications Medication Start Date End Date Route Frequency Dose Code Code System Medication Instructions Home Meds Radha 28 3MG-0.02MG Oral Tablet 09/12/2022 12/25/2022 By Mouth Once a day 1 TABLET RxNorm 1 TABLET By Mouth Once a day Medrol Dosepak 4MG Oral Tablet 12/25/2022 02/20/2023 By Mouth As Directed 1 PACK 872231 RxNorm 1 PACK By Mouth As Directed Methocarbamol 750MG Oral Tablet 12/25/2022 03/12/2023 By Mouth As needed every 8 hr 543719 RxNorm 1-2 TABLET By Mouth As needed every 8 hr Wallace-28 30 MCG-0.15 MG; NA Oral Tablet 12/25/2022 03/12/2023 By Mouth Daily 1 TABLET 652320 RxNorm 1 TABLET By Mouth Daily Macrobid 100MG Oral Capsule 02/20/2023 03/12/2023 By mouth Twice a day 1 TABLET 251420 RxNorm 1 TABLET By mouth Twice a day X 7 DAYS Pyridium 100MG Oral Tablet 02/20/2023 03/12/2023 By mouth As needed every 8 hr 1 TABLET 3487036 RxNorm 1 TABLET By mouth As needed every 8 hr for urinary pain ZyrTEC Allergy 10MG Oral Capsule, Liquid Filled 03/12/2023 Unknown By Mouth Daily 1 CAPSULE 0808035 RxNorm 1 CAPSULE By Mouth Daily Fluticasone 0.05MG/1Actuati on Nasal [place] 03/12/2023 Unknown Nasal Daily 1 Sprays 9568405 RxNorm 1 Spr ays Nasal Daily Azithromycin 500MG Oral Tablet 06/04/2024 Unknown By Mouth x1 NOW 2 TABLET 824544 RxNorm 2 TABLET By Mouth x1 NOW [...] Status Code Code System SEASONAL ALLERGY active 703065193 SNO MED-CT FAMILY PLANNING 06/20/2020 active 361308040 SNO MED-CT BITE OF INSECT active 640733354 SNOME D-CT ES OF VAGINA 08/07/2022 active 24463213 S NOMED-CT MENORRHAGIA active 258135064 SNOMED-C T PAINFUL NECK active 26563050 SNOMED- CT ADHD OF CHILDHOOD 07/22/2019 resolved 688741369 S NOMED-CT SEASONAL NASAL ALLERGY 07/22/2019 resolved 833668 001 SNOMED-CT HISTORY OF CHICKENPOX 07/22/2019 resolved 4482800 08 SNOMED-CT Allergies and Adverse Reactions Allergy Substance Reaction Severity Start Date Concern Status Co de Code System Active seasonal allergies Active No Known Drug Allergies Active 428526774 SNOMED-CT No Known Drug Allergies Active 840190937 SNOMED-CT Plan of Treatment Description Due Date Details Instructions DEPRESSION SCREENING DUE 06/20/2021 Personal Care Team Section Performer Name Performer Role Active Date Inactive David mccallum
--- OUTSIDE RECORDS SUMMARY | 2025-01-22 07:34 | XMS_ITS ---
Author Organization Unknown Address [address] [place] [phone] Phone Care Team Providers Care Choker Setter Name Role Phone Blanco Gallego Attending Unavailable [...] em Smoking History Never smoker (Never Smoked) 464186400 SNOMED CT Sex Female Sexual Orientation Straight or Heterosexual 59977462 SNOMED CT Gender Identity Female [id number] [address] Medications Medication Start Date End Date Route Frequency Dose Code Code System Medication Instructions Home Meds ZyrTEC Allergy 10MG Oral Capsule, Liquid Filled 03/12/2023 Unknown By Mouth Daily 1 CAPSULE 5632409 RxNorm 1 CAPSULE By Mouth Daily Fluticasone 0.05MG/1Actuatio n Nasal [place] 03/12/2023 Unknown Nasal Daily 1 Sprays 5400221 RxNorm 1 Spra ys Nasal Daily Azithromycin 500MG Oral Tablet 06/04/2024 Unknown By Mouth x1 NOW 2 TABLET 044587 RxNorm 2 TABLET By Mouth x1 NOW [...] Status Code Code System SEASONAL ALLERGY active 198064617 SNO MED-CT FAMILY PLANNING 06/20/2020 active 649305827 SNO MED-CT BITE OF INSECT active 826473856 SNOME D-CT ES OF VAGINA 08/07/2022 active 04981167 S NOMED-CT MENORRHAGIA active 475323234 SNOMED-C T PAINFUL NECK active 57945873 SNOMED- CT ADHD OF CHILDHOOD 07/22/2019 resolved 713895500 S NOMED-CT SEASONAL NASAL ALLERGY 07/22/2019 resolved 824618 001 SNOMED-CT HISTORY OF CHICKENPOX 07/22/2019 resolved 4448215 08 SNOMED-CT Allergies and Adverse Reactions Allergy Substance Reaction Severity Start Date Concern Status Co de Code System Active seasonal allergies Active No Known Drug Allergies Active 885855361 SNOMED-CT No Known Drug Allergies Active 389711833 SNOMED-CT Plan of Treatment Description Due Date Details Instructions DEPRESSION SCREENING DUE 06/20/2021 Personal Care Team Section Performer Name Performer Role Active Date Inactive Da xena
--- OUTSIDE RECORDS SUMMARY | 2025-01-22 07:35 | XMS_ITS ---
Author Organization Unknown Address [address] [place] [phone] Phone Care Team Providers Care Electromechanical Equipment Assembler Name Role Phone Blanco Gallego Attending [...] em Smoking History Never smoker (Never Smoked) 698881959 SNOMED CT Sex Female Sexual Orientation Straight or Heterosexual 35633135 SNOMED CT Gender Identity Female [id number] [address] Vital Signs Vital Sign Value Unit Van Meter Value Van Meter Unit Date/Time Recent/Initial? Code Code System Body Mass Index 23.87 kg/m2 12/25/2022 13:33 Initial 47701 -5 [facility] Body Mass Index Percentile 74 % 12/25/2022 13:33 Initial 22564 -9 [facility] Systolic Blood Pressure 106 mm[Hg] 12/25/2022 13:33 Initial 8480- 6 [facility] Diastolic Blood Pressure 72 mm[Hg] 12/25/2022 13:33 Initial 8462- 4 [facility] Body Surface Area 1.85 m2 12/25/2022 13:33 Initial 3140- 1 [facility] Height 172.720 0 cm 68.00 in 12/25/2022 13:33 Initial 8302- 2 [facility] O2 Saturation 100 % 2022 13:33 Initial 64215 -5 [facility] Pulse 82.0 /min 12/25/2022 13:33 Initial 8867- 4 [facility] Respiration 16 /min 12/25/19 13:33 Initial 9279- 1 [facility] Temperature 37.0 Antonella 98.6 F 12/25/19 13:33 Initial 8310- 5 [facility] Weight 71.21 kg 157.00 lbs 12/25/2022 13:33 Initial 74182 -7 [facility] Medications Medication Start Date End Date Route Frequency Dose Code Code System Medication Instructions Home Meds Radha 28 3MG-0.02MG Oral Tablet 09/12/2022 12/25/2022 By Mouth Once a day 1 TABLET RxNorm 1 TABLET By Mouth Once a day Medrol Dosepak 4MG Oral Tablet 12/25/2022 02/20/2023 By Mouth As Directed 1 PACK 030978 RxNorm 1 PACK By Mouth As Directed Methocarbamol 750MG Oral Tablet 12/25/2022 03/12/2023 By Mouth As needed every 8 hr 609097 RxNorm 1-2 TABLET By Mouth As needed every 8 hr [place]-28 30 MCG-0.15 MG; NA Oral Tablet 12/25/2022 03/12/2023 By Mouth Daily 1 TABLET 767251 RxNorm 1 TABLET By Mouth Daily Macrobid 100MG Oral Capsule 02/20/2023 03/12/2023 By mouth Twice a day 1 TABLET 690880 RxNorm 1 TABLET By mouth Twice a day X 7 DAYS Pyridium 100MG Oral Tablet 02/20/2023 03/12/2023 By mouth As needed every 8 hr 1 TABLET 1861601 RxNorm 1 TABLET By mouth As needed every 8 hr for urinary pain ZyrTEC Allergy 10MG Oral Capsule, Liquid Filled 03/12/2023 Unknown By Mouth Daily 1 CAPSULE 0158965 RxNorm 1 CAPSULE By Mouth Daily Fluticasone 0.05MG/1Actuati on Nasal [place] 03/12/2023 Unknown Nasal Daily 1 Sprays 4886627 RxNorm 1 Spr ays Nasal Daily Azithromycin 500MG Oral Tablet 06/04/2024 Unknown By Mouth x1 NOW 2 TABLET 815095 RxNorm 2 TABLET By Mouth x1 NOW Assessment You had the following problems:SEASONAL ALLERGYFAMILY PLANNINGBITE OF INSECTCANDIDA OF VAGINAMENORRHAGIAPAINFUL NECK Assessment/Plan: 1. Left upper back pain - Start steroids and muscle relaxer. Patient denies need for school note. 2. Contraceptive management - Patient requesting to restart [place], will restart at this time Return to clinic [facility] Discharge Instructions Should you have any questions prior to discharge, please contact a member of your healthcare team. If you have left the hospital and have any questions, please contact your primary care physician. Reason For Referral No Data Found Problems Problem Start Date Resolved Date Status Code Code System SEASONAL ALLERGY active 223869959 SNO MED-CT FAMILY PLANNING 06/20/2020 active 824790561 SNO MED-CT BITE OF INSECT active 890104059 SNOME D-CT ES OF VAGINA 08/07/2022 active 19617022 S NOMED-CT MENORRHAGIA active 047681866 SNOMED-C T PAINFUL NECK active 08728612 SNOMED- CT ADHD OF CHILDHOOD 07/22/2019 resolved 168780342 S NOMED-CT SEASONAL NASAL ALLERGY 07/22/2019 resolved 534480 001 SNOMED-CT HISTORY OF CHICKENPOX 07/22/2019 resolved 9244012 08 SNOMED-CT Allergies and Adverse Reactions Allergy Substance Reaction Severity Start Date Concern Status Co de Code System Active seasonal allergies Active No Known Drug Allergies Active 134757416 SNOMED-CT No Known Drug Allergies Active 010668028 SNOMED-CT Plan of Treatment Description Due Date Details Instructions DEPRESSION SCREENING DUE 06/20/2021 Encounters Encounter Diagnosis Start Date Code Code Sys tem Pain in thoracic spine 12/25/2022 688511798 SNOME D-CT Personal Care Team Section Performer Name Performer Role Active Date Inactive Da te Progress Notes [facility] 12/25/2022 13:54 Admission Date/Time: 12/25/2022 13:07 [facility] Visit Note Chief Complaint: [place] [facility] F/U UPPER BACK PAIN/BY NECK SWOLLEN [...] is an 17 yo female presents to [facility] today for [place] [facility] follow up neck and back pain. Pt states she went to [place] [facility] on 12-18-22 with neck and upper back pain. States it just started hurting her while at work, denies injury to the areas. States no xrays were done at ER and was given Rx for steroids that she did not apple picker. States she has been taking warm [...] Contraceptive management - Patient requesting to restart [place], will restart at this time Return to [...] records Referring and communicating with other health customer care professional x Obtaining and/or reviewing separately obtained history Independent interpretation of results and communicating results to the patient/family/caregiver x Performing a medically appropriate examination/evaluation Care coordination (not reported separately) Ordered & Completed Meds Table: No Current Medications Available Discharge Med List: Discharge Medications: No Discharge Medications Available
--- OUTSIDE RECORDS SUMMARY | 2025-01-22 07:35 | XMS_ITS ---
Author Organization Unknown Address [address] [place] [phone] Phone Care Team Providers Care Share Holder Name Role Phone ATIYA Lezama MD Attending [...] em Smoking History Never smoker (Never Smoked) 163089417 SNOMED CT Sex Female Sexual Orientation Straight or Heterosexual 25815602 SNOMED CT Gender Identity Female [id number] [address] Medications Medication Start Date End Date Route Frequency Dose Code Code System Medication Instructions Home Meds ZyrTEC Allergy 10MG Oral Capsule, Liquid Filled 03/12/2023 Unknown By Mouth Daily 1 CAPSULE 1671856 RxNorm 1 CAPSULE By Mouth Daily Fluticasone 0.05MG/1Actuatio n Nasal [place] 03/12/2023 Unknown Nasal Daily 1 Sprays 5512315 RxNorm 1 Spra ys Nasal Daily Azithromycin 500MG Oral Tablet 06/04/2024 Unknown By Mouth x1 NOW 2 TABLET 843589 RxNorm 2 TABLET By Mouth x1 NOW [...] Status Code Code System SEASONAL ALLERGY active 906851977 SNO MED-CT FAMILY PLANNING 06/20/2020 active 043028373 SNO MED-CT BITE OF INSECT active 234003463 SNOME D-CT ES OF VAGINA 08/07/2022 active 20632490 S NOMED-CT MENORRHAGIA active 531772397 SNOMED-C T PAINFUL NECK active 79827513 SNOMED- CT ADHD OF CHILDHOOD 07/22/2019 resolved 268818682 S NOMED-CT SEASONAL NASAL ALLERGY 07/22/2019 resolved 158771 001 SNOMED-CT HISTORY OF CHICKENPOX 07/22/2019 resolved 7454567 08 SNOMED-CT Allergies and Adverse Reactions Allergy Substance Reaction Severity Start Date Concern Status Co de Code System Active seasonal allergies Active No Known Drug Allergies Active 683731652 SNOMED-CT No Known Drug Allergies Active 223088580 SNOMED-CT Plan of Treatment Description Due Date Details Instructions DEPRESSION SCREENING DUE 06/20/2021 Personal Care Team Section Performer Name Performer Role Active Date Inactive Da xena
--- OUTSIDE RECORDS SUMMARY | 2025-02-04 06:19 | XMS_ITS | Clinical Summary ---
Author Organization [facility] Address [address] [place] [id number] Care Team Providers Care Diamond Assorter Name Role Phone Geovanna Pryor NP Primary [...] age to complete this topic Care Teams Diamond Assorter Relationship Specialty Start Date End Date Geovanna Pryor NP [address] [place] [address] PCP - General Nurse Practitioner Family 06/17/19 Geovanna Pryor NP [address] [place] [address] 06/17/19
--- OUTSIDE RECORDS SUMMARY | 2025-02-04 06:19 | XMS_ITS ---
Author Organization Unknown Address [address] [place] [address] [phone] Phone Care Team Providers Care Linux Solaris Administrator Name Role Phone ATIYA Lezama MD Attending [...] em Smoking History Never smoker (Never Smoked) 785938196 SNOMED CT Sex Female Sexual Orientation Straight or Heterosexual 29725181 SNOMED CT Gender Identity Female [id number] [address] Vital Signs Vital Sign Value Unit [place] Value [place] Unit Date/Time Recent/Initial? Code Code System Body Mass Index 22.93 kg/m2 09/12/2022 17:59 Initial 48492 -5 [facility] Body Mass Index Percentile 67 % 09/12/2022 17:59 Initial 49675 -9 [facility] Systolic Blood Pressure 100 mm[Hg] 09/12/2022 17:59 Initial 8480- 6 [facility] Diastolic Blood Pressure 70 mm[Hg] 09/12/2022 17:59 Initial 8462- 4 [facility] Body Surface Area 1.81 m2 09/12/2022 17:59 Initial 3140- 1 [facility] Height 172.720 0 cm 68.00 in 09/12/2022 17:59 Initial 8302- 2 [facility] O2 Saturation 99 % 2021 17:59 Initial 54602 -5 [facility] Pulse 95.0 /min 09/12/2022 17:59 Initial 8867- 4 [facility] Respiration 18 /min 09/12/20 17:59 Initial 9279- 1 [facility] Temperature 36.9 Antonella 98.4 F 09/12/20 17:59 Initial 8310- 5 [facility] Weight 68.40 kg 150.80 lbs 09/12/2022 17:59 Initial 98961 -7 [facility] Medications Medication Start Date End Date Route Frequency Dose Code Code System Medication Instructions Home Meds Anel-28 30MCG-0.15MG-NA Oral Tablet 06/07/2022 09/12/2022 By Mouth Daily 1 TABLET 819005 RxNorm 1 TABLET By Mouth Daily Diflucan 150MG Oral Tablet 08/07/2022 09/12/2022 By Mouth x1 NOW 1 TABLET 824266 RxNorm 1 TABLET By Mouth x1 NOW FOR MARCH REPEAT IN 72 HOURS Radha 28 3MG-0.02MG Oral Tablet 09/12/2022 12/25/2022 By Mouth Once a day 1 TABLET RxNorm 1 TABLET By Mouth Once a day Medrol Dosepak 4MG Oral Tablet 12/25/2022 02/20/2023 By Mouth As Directed 1 PACK 004725 RxNorm 1 PACK By Mouth As Directed Methocarbamol 750MG Oral Tablet 12/25/2022 03/12/2023 By Mouth As needed every 8 hr 299286 RxNorm 1-2 TABLET By Mouth As needed every 8 hr [place]-28 30 MCG-0.15 MG; NA Oral Tablet 12/25/2022 03/12/2023 By Mouth Daily 1 TABLET 344707 RxNorm 1 TABLET By Mouth Daily Macrobid 100MG Oral Capsule 02/20/2023 03/12/2023 By mouth Twice a day 1 TABLET 353767 RxNorm 1 TABLET By mouth Twice a day X 7 DAYS Pyridium 100MG Oral Tablet 02/20/2023 03/12/2023 By mouth As needed every 8 hr 1 TABLET 3392114 RxNorm 1 TABLET By mouth As needed every 8 hr for urinary pain ZyrTEC Allergy 10MG Oral Capsule, Liquid Filled 03/12/2023 Unknown By Mouth Daily 1 CAPSULE 0600825 RxNorm 1 CAPSULE By Mouth Daily Fluticasone 0.05MG/1Actuatio n Nasal [place] 03/12/2023 Unknown Nasal Daily 1 Sprays 8664964 RxNorm 1 Spra ys Nasal Daily Azithromycin 500MG Oral Tablet 06/04/2024 Unknown By Mouth x1 NOW 2 TABLET 144388 RxNorm 2 TABLET By Mouth x1 NOW Assessment You had the following problems:SEASONAL ALLERGYFAMILY PLANNINGBITE OF INSECTCANDIDA OF VAGINAMENORRHAGIAPAINFUL NECK Assessment/Plan: 1) Menorrhagia: Will check TSH, T4, CBC, PT/INR, and CMP. Will discontinue the Anel and start her on Radha 1 tablet daily. 2) Contraceptive management: Patient is currently on [place] but this is not managing her periods [...] Status Code Code System SEASONAL ALLERGY active 937162283 SNO MED-CT FAMILY PLANNING 06/20/2020 active 823702719 SNO MED-CT BITE OF INSECT active 039573362 SNOME D-CT ES OF VAGINA 08/07/2022 active 69294567 S NOMED-CT MENORRHAGIA active 043865517 SNOMED-C T PAINFUL NECK active 83020914 SNOMED- CT ADHD OF CHILDHOOD 07/22/2019 resolved 742501846 S NOMED-CT SEASONAL NASAL ALLERGY 07/22/2019 resolved 332148 001 SNOMED-CT HISTORY OF CHICKENPOX 07/22/2019 resolved 5355885 08 SNOMED-CT Allergies and Adverse Reactions Allergy Substance Reaction Severity Start Date Concern Status Co de Code System Active seasonal allergies Active No Known Drug Allergies Active 380758554 SNOMED-CT No Known Drug Allergies Active 054686878 SNOMED-CT Plan of Treatment Description Due Date Details Instructions DEPRESSION SCREENING DUE 06/20/2021 Future Order Description Future Order Date Futu re Order Loinc: TSH 09/12/2022 LOINC: 28648-6 FREE T4 09/12/2022 LOINC: 3024-7 CBC W DIFF 09/12/2022 LOINC: 84548-9 COMPREHENSIVE METABOLIC PANEL 09/12/2022 L OINC: 55591-4 PT (PROTIME) 09/12/2022 LOINC: 6301-6 Encounters Encounter Diagnosis Start Date Code Code Sys tem Excessive and frequent menstruation 09/12/2022 32865 1003 SNOMED-CT Personal Care Team Section Performer Name Performer Role Active Date Inactive Da te Progress Notes [facility] 09/13/2022 09:49 Admission Date/Time: 09/12/2022 13:21 Rachael Andersen MD Clinic Visit Note Chief Complaint: DISCUSS BC Has the patient received a COVID Vaccine? Yes Nurse Note: this nurse note is documented by Opal Ly CMA 17 yr old female present to [facility] today to discuss BC History of Present Illness: An 17-year-old presents to [facility] today to discuss BC. Patient states since [...] CBC, PT/INR, and CMP. Will discontinue the [place] and start her on Radha 1 tablet daily. 2) Contraceptive management: Patient is currently on [place] but this is not managing her periods [...] records Referring and communicating with other health caregivers non medical Obtaining and/or reviewing separately obtained history Independent [...]
--- OUTSIDE RECORDS SUMMARY | 2025-02-04 06:19 | XMS_ITS ---
Author Organization Unknown Address [address] [place] [address] [phone] Phone Care Team Providers Care Biopharmaceutical Rep Name Role Phone ABBY AGUIRRE Attending Unavailable [...] em Smoking History Never smoker (Never Smoked) 821815498 SNOMED CT Sex Female Sexual Orientation Straight or Heterosexual 38456830 SNOMED CT Gender Identity Female 22702667951365 [address] Vital Signs Vital Sign Value Unit [place] Value [place] Unit Date/Time Recent/Initial? Code Code System Body Mass Index 26.21 kg/m2 05/06/2023 12:01 Initial 68341 -5 [facility] Body Mass Index Percentile 85 % 05/06/2023 12:01 Initial 16803 -9 [facility] Systolic Blood Pressure 118 mm[Hg] 05/06/2023 12:01 Initial 8480- 6 [facility] Diastolic Blood Pressure 74 mm[Hg] 05/06/2023 12:01 Initial 8462- 4 [facility] Body Surface Area 3.35 m2 05/06/2023 12:01 Initial 3140- 1 [facility] Height 248.920 0 cm 98.00 in 05/06/2023 12:01 Initial 8302- 2 [facility] O2 Saturation 98 % 2022 12:01 Initial 07404 -5 [facility] Pulse 78.0 /min 05/06/2023 12:01 Initial 8867- 4 [facility] Temperature 36.4 Antonella 97.5 F 05/06/20 12:01 Initial 8310- 5 [facility] Weight 162.40 kg 358.03 lbs 05/06/2023 12:01 Initial 71948 -7 [facility] Medications Medication Start Date End Date Route Frequency Dose Code Code System Medication Instructions Home Meds ZyrTEC Allergy 10MG Oral Capsule, Liquid Filled 03/12/2023 Unknown By Mouth Daily 1 CAPSULE 5035604 RxNorm 1 CAPSULE By Mouth Daily Fluticasone 0.05MG/1Actuatio n Nasal [place] 03/12/2023 Unknown Nasal Daily 1 Sprays 0363912 RxNorm 1 Spra ys Nasal Daily Azithromycin 500MG Oral Tablet 06/04/2024 Unknown By Mouth x1 NOW 2 TABLET 194951 RxNorm 2 TABLET By Mouth x1 NOW [...] Status Code Code System SEASONAL ALLERGY active 204621359 SNO MED-CT FAMILY PLANNING 06/20/2020 active 894943585 SNO MED-CT BITE OF INSECT active 939034277 SNOME D-CT ES OF VAGINA 08/07/2022 active 09682473 S NOMED-CT MENORRHAGIA active 366488888 SNOMED-C T PAINFUL NECK active 84058042 SNOMED- CT ADHD OF CHILDHOOD 07/22/2019 resolved 698016817 S NOMED-CT SEASONAL NASAL ALLERGY 07/22/2019 resolved 540465 001 SNOMED-CT HISTORY OF CHICKENPOX 07/22/2019 resolved 6466954 08 SNOMED-CT Allergies and Adverse Reactions Allergy Substance Reaction Severity Start Date Concern Status Co de Code System Active seasonal allergies Active No Known Drug Allergies Active 847662272 SNOMED-CT No Known Drug Allergies Active 906187892 SNOMED-CT Plan of Treatment Description Due Date Details Instructions DEPRESSION SCREENING DUE 06/20/2021 Encounters Encounter Diagnosis Start Date Code Code Sys tem Injury of head 05/06/2023 67678042 SNOMED-CT Personal Care Team Section Performer Name Performer Role Active Date Inactive Da te Progress Notes [facility] 05/06/2023 13:28 Date of Service: 05/06/2023 [...] Instructions Start Date Prescribing Fluticasone 0.05MG/1Actuation Nasal [place] 1 Sprays Nasal Daily 03/12/2023 Blanco Gallego ZyrTEC Allergy 10MG Oral Capsule, Liquid Filled 1 CAPSULE By Mouth Daily 03/12/2023 Blanco Gallego This examination was transcribed using the [employer] voice recognition system without human concrete gun operator. In an effort to expedite patient care, this report has not been adjusted for typographical, or medical or syntax by a trained certified medical asst.
--- OUTSIDE RECORDS SUMMARY | 2025-02-04 06:19 | XMS_ITS | Data Portability ---
Author Organization [facility], [facility] Address [address] [place] [address] Assessment No assessment recorded. Plan of Treatment Reminders Order Date Submit Date Provider Last Modified By Organization Details Last Modified Time Details Appointments None recorded. Lab None recorded. Referral None recorded. Procedures None recorded. Surgeries None recorded. Imaging None recorded. Medication Orders Medrol (Rex) 4 mg tablets in a dose pack 2022 023 [facility], [address] [place] [address], [id number], 16:54:18 cyclobenzap rine 5 mg tablet 2022 023 [facility], [facility] [place], [place], [id number], 16:54:27 Patient TargetsNo targets recorded. Patient InstructionsNo instructions recorded. Reason for Referral None Reported. Results Created Date Observation Date Name Description Value Unit Range Abnormal Flag Note LastModifiedBy Organization Detail LastModifiedTime Result Notes None recorded. Problems Name Problem SNOMED Code Status Onset Date Resolution Date Notes Provider Name and Address Organization Details Recorded Time Neck pain 78977550 Active 12/19/19 23 [facility] 16:44:06 Problem Notes None recorded. [...] Address Organization Details Last Updated DateTime 3 86807.5 9 g 75 % 24 kg/m2 172.72 cm 8 17 /min 98.7 [degF] 75 /min 100 % 100 % 120 mm[Hg] 70 mm[Hg] Analilia Lemon [facility] 16:21:52 Social History Question Answer Notes LastModified by Organizat ion Details LastModified Time Tobacco Smoking Status Never Smoker Analilia Lemon [facility] 12/19/2022 16:19:49 What Is Your Level Of Alcohol Consumption? None [email or web address] Information not available 12/19/2022 What Is Your Level Of Caffeine Consumption? None [email or web address] Information not available 12/19/2022 In The 14 Days Before Symptom Onset, Have You Had Close Contact With A Laboratory-confir med COVID-19 While That Case Was Ill? No [email or web address] Information not available 12/19/2022 In The 14 Days Before Symptom Onset, Have You Had Close Contact With A Person Who Is Under Investigation For COVID-19 While That Person Was Ill? No [email or web address] Information not available 12/19/2022 Do You Or Have You Ever Used E-cigarettes Or Vape? Former User Of Electronic Cigarettes Quit About 4 Months Ago [email or web address] Information not available 12/19/2022 What Was The Date Of Your Most Recent Tobacco Screening? 12/19/2022 [email or web address] Information not available 12/19/2022 Do You Or Have You Ever Used Smokeless Tobacco? Never Used Smokeless Tobacco [email or web address] Information not available 12/19/2022 Do You Use Any Illicit Or Recreational Drugs? No [email or web address] Information not available 12/19/2022 Have You Recently Traveled Abroad? No [email or web address] Information not available 12/19/2022 Do You Or Have You Ever Used Any Other Forms Of Tobacco Or Nicotine? Yes [email or web address] Information not available 12/19/2022 Sex: Unknown Functional Status None recorded. Mental Status None recorded. Family History Nothing Reported. Medical History No medical history recorded. Gynecological History Statement/Question Response Date of LMP 12/04/2022 Obstetrics History GPAL:G 0 P 0 0 0 0 Immunizations Vaccine Type Date Status Note Provider Nam e and Address Organization Details Recorded Time Hib, unspecified formulation 5 desiree acosta, [facility] 06/20/2023 14:41:02 Hib, unspecified formulation 5 desiree acosta, [facility] 06/20/2023 14:41:02 Hib, unspecified formulation 5 desiree acosta, [facility] 06/20/2023 14:41:02 HPV9 8 desiree Lilly null, [facility] 06/20/2023 14:41:02 HPV9 9 desiree acosta, [facility] 06/20/2023 14:41:02 IPV 5 desiree acosta, [facility] 06/20/2023 14:41:02 IPV 5 desiree acosta, [facility] 06/20/2023 14:41:02 MMR 5 desiree acosta, [facility] 06/20/2023 14:41:02 MMR 9 completed Rebecca Lilly null, [facility] 06/20/2023 14:41:02 COVID-19, mRNA, LNP-S, PF, 30 mcg/0.3 mL dose 1 completed Rebecca Lilly null, [facility] 06/20/2023 14:41:02 COVID-19, mRNA, LNP-S, PF, 30 mcg/0.3 mL dose 1 completed Rebecca Lilly null, [facility] 06/20/2023 14:41:02 pneumococcal conjugate PCV 7 5 completed Rebecca Lilly null, [facility] 06/20/2023 14:41:02 pneumococcal conjugate PCV 7 5 completed Rebecca Lilly null, [facility] 06/20/2023 14:41:02 pneumococcal conjugate PCV 7 5 completed Rebecca Lilly null, [facility] 06/20/2023 14:41:02 DTaP-IPV 9 completed Rebecca Lilly null, [facility] 06/20/2023 14:41:02 influenza, unspecified formulation 6 completed Rebecca Lilly null, [facility] 06/20/2023 14:41:02 Tdap 8 completed Rebecca Lilly null, [facility] 06/20/2023 14:41:02 varicella 5 completed Rebecca Lilly null, [facility] 06/20/2023 14:41:02 varicella 9 completed Rebecca Lilly null, [facility] 06/20/2023 14:41:02 influenza, split (incl. purified surface antigen) 0 completed Rebecca Lilly null, [facility] 06/20/2023 14:41:02 Hep B, adolescent or pediatric 5 desiree Lilly null, [facility] 06/20/2023 14:41:02 Hep B, adolescent or pediatric 4 completed Rebecca Lilly null, [facility] 06/20/2023 14:41:02 meningococcal MCV4P 8 desiree acosta, [facility] 06/20/2023 14:41:02 meningococcal MCV4P 0 desiree acosta, [facility] 06/20/2023 14:41:02 DTaP 5 desiree Rebecca Lilly dave, [facility] 06/20/2023 14:41:02 DTaP 5 desiree Rebeccaandrea Lilly null, [facility] 06/20/2023 14:41:02 DTaP-Hep B-IPV 5 desiree Rebecca Lilly dave, [facility] 06/20/2023 14:41:02 Influenza, split virus, quadrivalent, PF 8 desiree acosta, [facility] 06/20/2023 14:41:02 Past Encounters Encounter ID Performer Location Encounter Start Date Encounter Closed Date Diagnosis/Indication Diagnosis SNOMED-CT Code Diagnosis ICD10 Code Diagnosis Note [id number] Sarbjit Jenkins [address] [address] 12/19/2022 15:59:56 12/19/2022 16:54:35 Neck pain 43237963 M54.2 No radiculopa thy.Trigge r point? Apply [...] Rivers Member ID Guarantor Name 12/19/2022 1 [facility] (MEDICAID HMO) [id number] Lani Ho [id number] Lani Ho Notes Date Note Type Note [...] missing school yesterday, and today. Sarbjit acosta, [facility] 12/19/2022 16:51:04 OBGyn Episode No OBEpisode recorded.
--- OUTSIDE RECORDS SUMMARY | 2025-02-04 06:19 | XMS_ITS ---
Author Organization Unknown Address [address], [place] [phone] Phone Care Team Providers Care Market Garden Worker Name Role Phone DEON RAFIQ Attending Unavailable Results CYTOMEGALOVIRUS AB IGG - Col lect Date/Time: 10/22/2024 14:12 [facility] ID: [id number] [address] [place], [place], [phone] LOINC: 5124-3 Test Value Unit Reference Range Code Code System Flag CYTOMEGALOVIRUS ANTIBODY(IGG) >10.00 H PARVOVIRUS B19 IGG & IGM - C ollect Date/Time: 10/22/2024 14:12 [facility] ID: [id number] [address], [place], [phone] LOINC: 5273-8 Test Value Unit Reference Range Code Code System Flag PARVOVIRUS B19 ANTIBODY(IGG) 0.2 PARVOVIRUS B19 ANTIBODY(IGM) 0.2 Social History Type Status Start Date End Date Code Code Syst em Smoking History Never smoker (Never Smoked) 475974218 SNOMED CT Sex Female Sexual Orientation Straight or Heterosexual 51204243 SNOMED CT Gender Identity Female 57367311752052 [address] Medications Medication Start Date End Date Route Frequency Dose Code Code System Medication Instructions Home Meds ZyrTEC Allergy 10MG Oral Capsule, Liquid Filled 03/12/2023 Unknown By Mouth Daily 1 CAPSULE 5666260 RxNorm 1 CAPSULE By Mouth Daily Fluticasone 0.05MG/1Actuatio n Nasal [place] 03/12/2023 Unknown Nasal Daily 1 Sprays 6407736 RxNorm 1 Spra ys Nasal Daily Azithromycin 500MG Oral Tablet 06/04/2024 Unknown By Mouth x1 NOW 2 TABLET 209841 RxNorm 2 TABLET By Mouth x1 NOW [...] Status Code Code System SEASONAL ALLERGY active 623735162 SNO MED-CT FAMILY PLANNING 06/20/2020 active 050008396 SNO MED-CT BITE OF INSECT active 048754920 SNOME D-CT ES OF VAGINA 08/07/2022 active 41413187 S NOMED-CT MENORRHAGIA active 449634575 SNOMED-C T PAINFUL NECK active 87503723 SNOMED- CT ADHD OF CHILDHOOD 07/22/2019 resolved 232633466 S NOMED-CT SEASONAL NASAL ALLERGY 07/22/2019 resolved 813453 001 SNOMED-CT HISTORY OF CHICKENPOX 07/22/2019 resolved 6310605 08 SNOMED-CT Allergies and Adverse Reactions Allergy Substance Reaction Severity Start Date Concern Status Co de Code System Active seasonal allergies Active No Known Drug Allergies Active 234007113 SNOMED-CT No Known Drug Allergies Active 853591143 SNOMED-CT Plan of Treatment Description Due Date Details Instructions DEPRESSION SCREENING DUE 06/20/2021 Encounters Encounter Diagnosis Start Date Code Code Sys tem ultrasound scan abnormal 10/22/2024 489575 005 SNOMED-CT Personal Care Team Section Performer Name Performer Role Active Date Inactive Da xena
--- OUTSIDE RECORDS SUMMARY | 2025-02-04 06:20 | XMS_ITS ---
Author Organization Unknown Address [address], [place] [phone] Phone Care Team Providers Care Tomato Paste Maker Name Role Phone mattyKlausSHERMAN Machado Social History Type Status Start Date End Date Code Code Syst em Smoking History Never smoker (Never Smoked) 917568912 SNOMED CT Sex Female Sexual Orientation Straight or Heterosexual 57662184 SNOMED CT Gender Identity Female [id number] [address] Medications Medication Start Date End Date Route Frequency Dose Code Code System Medication Instructions Home Meds ZyrTEC Allergy 10MG Oral Capsule, Liquid Filled 03/12/2023 Unknown By Mouth Daily 1 CAPSULE 0769223 RxNorm 1 CAPSULE By Mouth Daily Fluticasone 0.05MG/1Actuatio n Nasal [place] 03/12/2023 Unknown Nasal Daily 1 Sprays 3460477 RxNorm 1 Spra ys Nasal Daily Azithromycin 500MG Oral Tablet 06/04/2024 Unknown By Mouth x1 NOW 2 TABLET 185392 RxNorm 2 TABLET By Mouth x1 NOW [...] Status Code Code System SEASONAL ALLERGY active 913764035 SNO MED-CT FAMILY PLANNING 06/20/2020 active 110042038 SNO MED-CT BITE OF INSECT active 777646321 SNOME D-CT ES OF VAGINA 08/07/2022 active 50391005 S NOMED-CT MENORRHAGIA active 609693887 SNOMED-C T PAINFUL NECK active 07646963 SNOMED- CT ADHD OF CHILDHOOD 07/22/2019 resolved 244388021 S NOMED-CT SEASONAL NASAL ALLERGY 07/22/2019 resolved 044362 001 SNOMED-CT HISTORY OF CHICKENPOX 07/22/2019 resolved 3269891 08 SNOMED-CT Allergies and Adverse Reactions Allergy Substance Reaction Severity Start Date Concern Status Co de Code System Active seasonal allergies Active No Known Drug Allergies Active 729551066 SNOMED-CT No Known Drug Allergies Active 130397847 SNOMED-CT Plan of Treatment Description Due Date Details Instructions DEPRESSION SCREENING DUE 06/20/2021 Encounters Encounter Diagnosis Start Date Code Code Sys tem Dysuria 06/03/2024 77254819 SNOMED-CT Personal Care Team Section Performer Name Performer Role Active Date Inactive Da te
--- OUTSIDE RECORDS SUMMARY | 2025-02-04 06:20 | XMS_ITS ---
Author Organization Unknown Address [address] [place] [phone] Phone Care Team Providers Care Metal Mover Name Role Phone Blanco Gallego Attending Unavailable [...] em Smoking History Never smoker (Never Smoked) 208100167 SNOMED CT Sex Female Sexual Orientation Straight or Heterosexual 98046279 SNOMED CT Gender Identity Female 62727186877916 [address] Vital Signs Vital Sign Value Unit [place] Value [place] Unit Date/Time Recent/Initial? Code Code System Body Mass Index 21.85 kg/m2 06/07/2022 14:23 Initial 17518 -5 [facility] Body Mass Index Percentile 57 % 06/07/2022 14:23 Initial 32795 -9 [facility] Systolic Blood Pressure 118 mm[Hg] 06/07/2022 14:23 Initial 8480- 6 [facility] Diastolic Blood Pressure 72 mm[Hg] 06/07/2022 14:23 Initial 8462- 4 [facility] Body Surface Area 1.75 m2 06/07/2022 14:23 Initial 3140- 1 [facility] Height 171.450 0 cm 67.50 in 06/07/2022 14:23 Initial 8302- 2 [facility] O2 Saturation 99 % 2021 14:23 Initial 85176 -5 [facility] Pulse 107.0 /min 06/07/2022 14:23 Initial 8867- 4 [facility] Respiration 20 /min 06/07/20 14:23 Initial 9279- 1 [facility] Temperature 36.6 Antonella 97.8 F 06/07/20 14:23 Initial 8310- 5 [facility] Weight 64.23 kg 141.60 lbs 06/07/2022 14:23 Initial 31431 -7 [facility] Medications Medication Start Date End Date Route Frequency Dose Code Code System Medication Instructions Home Meds predniSONE 50MG Oral Tablet 06/07/2022 07/31/2022 By Mouth Daily 1 TABLET 896939 RxNorm 1 TABLET By Mouth Daily 30MCG-0.15MG-NA Oral Tablet 06/07/2022 09/12/2022 By Mouth Daily 1 TABLET 639574 RxNorm 1 TABLET By Mouth Daily Diflucan 150MG Oral Tablet 08/07/2022 09/12/2022 By Mouth x1 NOW 1 TABLET 207763 RxNorm 1 TABLET By Mouth x1 NOW FOR MARCH REPEAT IN 72 HOURS Radha 28 3MG-0.02MG Oral Tablet 09/12/2022 12/25/2022 By Mouth Once a day 1 TABLET RxNorm 1 TABLET By Mouth Once a day Medrol Dosepak 4MG Oral Tablet 12/25/2022 02/20/2023 By Mouth As Directed 1 PACK 011800 RxNorm 1 PACK By Mouth As Directed Methocarbamol 750MG Oral Tablet 12/25/2022 03/12/2023 By Mouth As needed every 8 hr 178870 RxNorm 1-2 TABLET By Mouth As needed every 8 hr Wellman-28 30 MCG-0.15 MG; NA Oral Tablet 12/25/2022 03/12/2023 By Mouth Daily 1 TABLET 930884 RxNorm 1 TABLET By Mouth Daily Macrobid 100MG Oral Capsule 02/20/2023 03/12/2023 By mouth Twice a day 1 TABLET 256989 RxNorm 1 TABLET By mouth Twice a day X 7 DAYS Pyridium 100MG Oral Tablet 02/20/2023 03/12/2023 By mouth As needed every 8 hr 1 TABLET 9829901 RxNorm 1 TABLET By mouth As needed every 8 hr for urinary pain ZyrTEC Allergy 10MG Oral Capsule, Liquid Filled 03/12/2023 Unknown By Mouth Daily 1 CAPSULE 7239126 RxNorm 1 CAPSULE By Mouth Daily Fluticasone 0.05MG/1Actuati on Nasal [place] 03/12/2023 Unknown Nasal Daily 1 Sprays 9499699 RxNorm 1 Spr ays Nasal Daily Azithromycin 500MG Oral Tablet 06/04/2024 Unknown By Mouth x1 NOW 2 TABLET 132513 RxNorm 2 TABLET By Mouth x1 NOW [...] Status Code Code System SEASONAL ALLERGY active 086484009 SNO MED-CT FAMILY PLANNING 06/20/2020 active 037710337 SNO MED-CT BITE OF INSECT active 807986852 SNOME D-CT ES OF VAGINA 08/07/2022 active 46375744 S NOMED-CT MENORRHAGIA active 944614093 SNOMED-C T PAINFUL NECK active 83584879 SNOMED- CT ADHD OF CHILDHOOD 07/22/2019 resolved 131382868 S NOMED-CT SEASONAL NASAL ALLERGY 07/22/2019 resolved 499582 001 SNOMED-CT HISTORY OF CHICKENPOX 07/22/2019 resolved 3635949 08 SNOMED-CT Allergies and Adverse Reactions Allergy Substance Reaction Severity Start Date Concern Status Co de Code System Active seasonal allergies Active No Known Drug Allergies Active 356999299 SNOMED-CT No Known Drug Allergies Active 768007903 SNOMED-CT Plan of Treatment Description Due Date Details Instructions DEPRESSION SCREENING DUE 06/20/2021 Encounters Encounter Diagnosis Start Date Code Code Sys tem Well child visit 06/07/2022 523189228 SNOMED-CT Personal Care Team Section Performer Name Performer Role Active Date Inactive Da te Progress Notes [facility] 06/07/2022 15:22 All Demographics Patient Name Age Sex Visit Number Admission Date/Time Attending Physician Date of Service Room and Bed Emergency Contact NELA MANZANARES 2005 16 years Female [id number] 06/07/2022 14:22 Julián Simeon 06/07/2022 402 06/07/2022 14:25 Accompanied By: Parent Parent, mother X. Parent, father Guardian Relative environmental services lead Caregiver Family Protective services Friend Healthcare provider Law enforcement Payroll Secretary / EMS Spouse / SO Other: Preferred Language: Czech. Vital Signs: This Visit Date/Time BP (mm/Hg) [...] environment active No Known Drug Allergies medication [id number] Nutrition X. Daily fruits and vegetables Iron [...] CAPITALIZED = Focus area for this [facility] Visit Constitutional: None. EYES: None. Head, EARS, NOSE, AND THROAT: None. CARDIOVASCULAR: None. RESPIRATORY: None. GASTROINTESTINAL: None. GENITOURINARY: None. MUSCULOSKELETAL: None. SKIN: None. NEUROLOGICAL: None. Other: None. PHYSICAL EXAMINATION ALL CAPITALIZED and = Focus Area for this [facility] Visit GENERAL: x Well-appearing adolescent x [...] Record reviewed Up-to-date for age Administered Today: [place] Screening Depression Screening (annually) Screening Tool Used: [...] year Next Visit: Referral to: 16 y/o [facility] - Anticipatory guidance and bright futures discussed. Discussed control methods and will start patient on Wellman. Patient to notify office if she is having any side effects. Patient states she is having anxiety, offered multiple options for managing anxiety, patient declines at this time.
--- OUTSIDE RECORDS SUMMARY | 2025-02-04 06:20 | XMS_ITS ---
Author Organization Unknown Address [address] [place] [phone] Phone Care Team Providers Care Cook Apprentice Name Role Phone JOSUE FULTON Attending Unavailable [...] MICR O - Collect Date/Time: 02/20/2023 18:44 [facility] ID: [id number] [address] [place] [address], [phone] LOINC: Test Value Unit Reference Range Code [...] TEST - Colle ct Date/Time: 02/20/2023 18:43 [facility] ID: [id number] [address] [place] [address], [phone] LOINC: Test Value Unit Reference Range Code Code System Flag TEST PERFORMED URINE PREG (URINE) NEGATIVE LOT#: [id number] EXP DATE: 2023-12-11 QC: ACCEPTABLE Social History Type Status Start Date End Date Code Code Syst em Smoking History Never smoker (Never Smoked) 550098319 SNOMED CT Sex Female Sexual Orientation Straight or Heterosexual 68924546 SNOMED CT Gender Identity Female 39195896900426 [address] Vital Signs Vital Sign Value Unit [place] Value [place] Unit Date/Time Recent/Initial? Code Code System Body Mass Index 24.50 kg/m2 02/20/2023 18:36 Initial 28244 -5 [facility] Body Mass Index Percentile 77 % 02/20/2023 18:36 Initial 11389 -9 [facility] Systolic Blood Pressure 112 mm[Hg] 02/20/2023 18:36 Initial 8480- 6 [facility] Diastolic Blood Pressure 70 mm[Hg] 02/20/2023 18:36 Initial 8462- 4 [facility] Body Surface Area 1.85 m2 02/20/2023 18:36 Initial 3140- 1 [facility] Height 171.450 0 cm 67.50 in 02/20/2023 18:36 Initial 8302- 2 [facility] O2 Saturation 98 % 2022 18:36 Initial 52687 -5 [facility] Pulse 91.0 /min 02/20/2023 18:36 Initial 8867- 4 [facility] Temperature 37.2 Antonella 98.9 F 02/21/20 18:36 Initial 8310- 5 [facility] Weight 72.03 kg 158.80 lbs 02/20/2023 18:36 Initial 90377 -7 [facility] Medications Medication Start Date End Date Route Frequency Dose Code Code System Medication Instructions Home Meds Medrol Dosepak 4MG Oral Tablet 12/25/2022 02/20/2023 By Mouth As Directed 1 PACK 718839 RxNorm 1 PACK By Mouth As Directed Methocarbamol 750MG Oral Tablet 12/25/2022 03/12/2023 By Mouth As needed every 8 hr 547788 RxNorm 1-2 TABLET By Mouth As needed every 8 hr [place]-28 30 MCG-0.15 MG; NA Oral Tablet 12/25/2022 03/12/2023 By Mouth Daily 1 TABLET 710618 RxNorm 1 TABLET By Mouth Daily Macrobid 100MG Oral Capsule 02/20/2023 03/12/2023 By mouth Twice a day 1 TABLET 404667 RxNorm 1 TABLET By mouth Twice a day X 7 DAYS Pyridium 100MG Oral Tablet 02/20/2023 03/12/2023 By mouth As needed every 8 hr 1 TABLET 8831306 RxNorm 1 TABLET By mouth As needed every 8 hr for urinary pain ZyrTEC Allergy 10MG Oral Capsule, Liquid Filled 03/12/2023 Unknown By Mouth Daily 1 CAPSULE 4021504 RxNorm 1 CAPSULE By Mouth Daily Fluticasone 0.05MG/1Actuati on Nasal [place] 03/12/2023 Unknown Nasal Daily 1 Sprays 9930125 RxNorm 1 Spr ays Nasal Daily Azithromycin 500MG Oral Tablet 06/04/2024 Unknown By Mouth x1 NOW 2 TABLET 282310 RxNorm 2 TABLET By Mouth x1 NOW [...] Status Code Code System SEASONAL ALLERGY active 520147386 SNO MED-CT FAMILY PLANNING 06/20/2020 active 294302280 SNO MED-CT BITE OF INSECT active 878852180 SNOME D-CT ES OF VAGINA 08/07/2022 active 87047799 S NOMED-CT MENORRHAGIA active 645385690 SNOMED-C T PAINFUL NECK active 67981584 SNOMED- CT ADHD OF CHILDHOOD 07/22/2019 resolved 588422347 S NOMED-CT SEASONAL NASAL ALLERGY 07/22/2019 resolved 836153 001 SNOMED-CT HISTORY OF CHICKENPOX 07/22/2019 resolved 2573110 08 SNOMED-CT Allergies and Adverse Reactions Allergy Substance Reaction Severity Start Date Concern Status Co de Code System Active seasonal allergies Active No Known Drug Allergies Active 333299802 SNOMED-CT No Known Drug Allergies Active 182871100 SNOMED-CT Plan of Treatment Description Due Date Details Instructions DEPRESSION SCREENING DUE 06/20/2021 Future Order Description Future Order Date Futu re Order Loinc: CULTURE URINE 02/20/2023 LOINC: 630-4 TRICHOMONAS VAGINALIS FEMALE RNA QUAL 3 LOINC: 20693-9 GC/CHLAMYDIA PCR [place] 02/20/2023 LOINC: 448 06-8 CULTURE YEAST, WITH IDENTIFICATION 02/20/2023 LOINC: 46553-6 BACTERIAL VAGINOSIS RAPID TEST 02/20/2023 LOINC: 6410-5 Encounters Encounter Diagnosis Start Date Code Code Sys tem Urinary tract infectious disease 02/20/2023 81822297 SNOMED-CT Personal Care Team Section Performer Name Performer Role Active Date Inactive Da te Progress Notes [facility] 02/20/2023 19:27 Admission Date/Time: 02/20/2023 18:07 Convenient [...] up. This examination was transcribed using the Synthace voice recognition system without human regional guide. In an effort to expedite patient care, this report has not been adjusted for typographical, or medical or syntax by a trained director of medical education. Allergy Table Allergen Type Reaction seasonal allergies [...] NEGATIVE 02/20/2023 18:38 02/20/2023 18:43 final LOT#: [id number] 02/20/2023 18:38 02/20/2023 18:43 final EXP DATE: [...] day X 7 DAYS 02/20/2023 JOSUE FULTON [place]-28 30 MCG-0.15 MG; NA Oral Tablet 1 TABLET By Mouth Daily 12/25/2022 Blanco Gallego Methocarbamol 750MG Oral Tablet 1-2 TABLET By Mouth As needed every 8 hr 12/25/2022 Blanco Gallego
--- OUTSIDE RECORDS SUMMARY | 2025-02-04 06:20 | XMS_ITS ---
Author Organization Unknown Address [address] [place] [address] [phone] Phone Care Team Providers Care Physical Biochemist Name Role Phone Blanco Gallego Attending Unavailable [...] em Smoking History Never smoker (Never Smoked) 146860642 SNOMED CT Sex Female Sexual Orientation Straight or Heterosexual 51262099 SNOMED CT Gender Identity Female [id number] Medications Medication Start Date End Date Route Frequency Dose Code Code System Medication Instructions Home Meds Medrol Dosepak 4MG Oral Tablet 12/25/2022 02/20/2023 By Mouth As Directed 1 PACK 603644 RxNorm 1 PACK By Mouth As Directed Methocarbamol 750MG Oral Tablet 12/25/2022 03/12/2023 By Mouth As needed every 8 hr 356867 RxNorm 1-2 TABLET By Mouth As needed every 8 hr Shobonier-28 30 MCG-0.15 MG; NA Oral Tablet 12/25/2022 03/12/2023 By Mouth Daily 1 TABLET 748399 RxNorm 1 TABLET By Mouth Daily Macrobid 100MG Oral Capsule 02/20/2023 03/12/2023 By mouth Twice a day 1 TABLET 716160 RxNorm 1 TABLET By mouth Twice a day X 7 DAYS Pyridium 100MG Oral Tablet 02/20/2023 03/12/2023 By mouth As needed every 8 hr 1 TABLET 3698272 RxNorm 1 TABLET By mouth As needed every 8 hr for urinary pain ZyrTEC Allergy 10MG Oral Capsule, Liquid Filled 03/12/2023 Unknown By Mouth Daily 1 CAPSULE 0487587 RxNorm 1 CAPSULE By Mouth Daily Fluticasone 0.05MG/1Actuati on Nasal Purvis 03/12/2023 Unknown Nasal Daily 1 Sprays 3299132 RxNorm 1 Spr ays Nasal Daily Azithromycin 500MG Oral Tablet 06/04/2024 Unknown By Mouth x1 NOW 2 TABLET 473272 RxNorm 2 TABLET By Mouth x1 NOW [...] Status Code Code System SEASONAL ALLERGY active 635751177 SNO MED-CT FAMILY PLANNING 06/20/2020 active 771517412 SNO MED-CT BITE OF INSECT active 514495056 SNOME D-CT ES OF VAGINA 08/07/2022 active 23609941 S NOMED-CT MENORRHAGIA active 449061383 SNOMED-C T PAINFUL NECK active 03212811 SNOMED- CT ADHD OF CHILDHOOD 07/22/2019 resolved 352280818 S NOMED-CT SEASONAL NASAL ALLERGY 07/22/2019 resolved 504057 001 SNOMED-CT HISTORY OF CHICKENPOX 07/22/2019 resolved 7269867 08 SNOMED-CT Allergies and Adverse Reactions Allergy Substance Reaction Severity Start Date Concern Status Co de Code System Active seasonal allergies Active No Known Drug Allergies Active 184893826 SNOMED-CT No Known Drug Allergies Active 600342125 SNOMED-CT Plan of Treatment Description Due Date Details Instructions DEPRESSION SCREENING DUE 06/20/2021 Personal Care Team Section Performer Name Performer Role Active Date Inactive David mccallum
--- OUTSIDE RECORDS SUMMARY | 2025-02-04 06:20 | XMS_ITS | Data Portability ---
Author Organization [employer] , [facility] Address [address] [place] [address] Assessment No assessment recorded. Plan of Treatment Reminders Order Date Submit Date Provider Last Modified By Organization Details Last Modified Time Details Appointments None recorded. Lab CBC w/ auto diff 2024 025 [facility], [address] [place], [address], 5 12:24:38 glucose tolerance test, post-50G, 1-hour 2024 025 [employer], [address] [place], [address], 5 12:35:39 obstetric screen, serum or blood 2024 025 [facility], [address] [place], [address], 5 14:47:18 Referral None recorded. Procedures None recorded. Surgeries None recorded. Imaging None recorded. Medication Orders None recorded. Patient TargetsNo targets recorded. Patient Instructions Encounter Date Encounter Id Patient Instructions Last Modified By Organization Details Last Modified Time 11/18/2024 [id number] learning about screening for gestational diabetes Not available 11/18/2024 15:10:20 11/26/2024 [id number] Anxiety During and After : Care Instructions Not available 11/26/2024 17:57:56 Reason for Referral None Reported. Results Created Date Observation Date Name Description Value Unit Range Abnormal Flag Note LastModifiedBy Organization Detail LastModifiedTime 11/18/1911/19/2024 CBC (INCL UDES DIFF/ PLT) WBC 7.6 thous and/u L 4.0 - 9.8 normal Not Available [facility] [address] [place] [address], [address], 11/19/2024 12:24:38 11/18/19 25 11/19/2024 CBC (INCL UDES DIFF/ PLT) RBC 3.4 jonathon on/uL 3.9 - 4.9 low Not Available [facility] [address] [place] [address], [address], 11/19/2024 12:24:38 11/18/19 25 11/19/2024 CBC (INCL UDES DIFF/ PLT) hemoglobin 11.0 g/dL 11.8 - 14.8 low Not Available [facility] [address] [place] [address], [address], 11/19/2024 12:24:38 11/18/19 25 11/19/2024 CBC (INCL UDES DIFF/ PLT) hematocrit 32.6 % 35.5 - 44.0 low Not Available [facility] [address] [place] [address], [address], 11/19/2024 12:24:38 11/18/19 25 11/19/2024 CBC (INCL UDES DIFF/ PLT) MCV 96.7 fL 82.0 - 99.0 normal Not Available [facility] [address] [place] [address], [address], 11/19/2024 12:24:38 11/18/1911/19/2024 CBC (INCL UDES DIFF/ PLT) MCH 32.6 pg 27.2 - 32.6 normal Not Available [facility] [address] [place] [address], [address], 11/19/2024 12:24:38 11/18/19 25 11/19/2024 CBC (INCL UDES DIFF/ PLT) MCHC 33.7 g/dL 31.5 - 35.5 normal Not Available [facility] [address] [place] [address], [address], 11/19/2024 12:24:38 11/18/19 25 11/19/2024 CBC (INCL UDES DIFF/ PLT) RDW-CV 12.2 % 11.5 - 14.5 normal Not Available [address], [address], 11/19/2024 12:24:38 11/18/19 25 11/19/2024 CBC (INCL UDES DIFF/ PLT) platelet 294 thous and/u L 140 - 350 normal Not Available [address], [address], 11/19/2024 12:24:38 11/18/19 25 11/19/2024 CBC (INCL UDES DIFF/ PLT) MPV 10.4 fL 9.3 - 12.4 normal Not Available [address], [address], 11/19/2024 12:24:38 11/18/19 25 11/19/2024 CBC (INCL UDES DIFF/ PLT) absolute neutrophil 5.66 thous and/u L 1.90 - 7.00 normal Not Available [address], [address], 11/19/2024 12:24:38 11/18/19 25 11/19/2024 CBC (INCL UDES DIFF/ PLT) absolute lymphocyte 1.32 thous and/u L 0.70 - 4.50 normal Not Available [address], [address], 11/19/2024 12:24:38 11/18/19 25 11/19/2024 CBC (INCL UDES DIFF/ PLT) absolute monocyte 0.46 thous and/u L 0.10 - 1.30 normal Not Available [address], [address], 11/19/2024 12:24:38 11/18/19 25 11/19/2024 CBC (INCL UDES DIFF/ PLT) absolute eosinophil 0.05 thous and/u L <0.70 normal Not Available [address], [address], 11/19/2024 12:24:38 11/18/19 25 11/19/2024 CBC (INCL UDES DIFF/ PLT) absolute basophil 0.03 thous and/u L <0.20 normal Not Available [address], [address], 11/19/2024 12:24:38 11/18/19 25 11/19/2024 CBC (INCL UDES DIFF/ PLT) absolute immature granulocyte 0.08 thous and/u L <0.03 high Not Available [address], [address], 11/19/2024 12:24:38 11/18/19 25 11/19/2024 (50G) 1HR - GLUCO SE GIA ANCE TEST, GESTA ELDER L SCREE N glucose (50g) 1 hour 144 mg/dL <135 high Not Available [address], [address], 11/19/2024 12:35:39 11/18/19 25 11/19/2024 OB 28W (SYPH HIV 1/2 Ag/Ab Non-Re active non-re active normal Not Available [address], [address], 11/19/2024 14:47:18 11/18/19 25 11/19/2024 OB 28W (SYPH syphilis Ab Non-Re active non-re active normal Not Available [address], [address], 11/19/2024 14:47:18 11/23/19 25 11/24/2024 (100G ) 3HR - GLUCO SE GIA ANCE TEST, GESTA ELDER L SCREE N glucose (100g) fasting 86 mg/dL <95 normal Not Available [address], [address], 11/24/2024 14:31:33 11/23/19 25 11/24/2024 (100G ) 3HR - GLUCO SE GIA ANCE TEST, GESTA ELDER L SCREE N glucose (100g) 1 hour 198 mg/dL <180 high Not Available [facility] [address] [place], [address], 11/24/2024 14:31:33 11/23/19 25 11/24/2024 (100G ) 3HR - GLUCO SE GIA ANCE TEST, GESTA ELDER L SCREE N glucose (100g) 2 hour 163 mg/dL <155 high Not Available [facility] [address] [place], [address], 11/24/2024 14:31:33 11/23/19 25 11/24/2024 (100G ) 3HR - GLUCO SE GIA ANCE TEST, GESTA ELDER L SCREE N glucose (100g) 3 hour 145 mg/dL <140 high Not Available [facility] [address] [place], [address], 11/24/2024 14:31:33 09/23/20 24 09/23/2024 US, obste tric, 2nd trime ster No observ ation record ed. [email or web address] [facility] [address] [place] [address], [address], 09/24/2024 15:24:20 10/23/20 24 10/21/2024 US, obste tric No observ ation record ed. [email or web address] [facility] [address] [place] [address], [address], 11/30/2024 13:18:29 11/20/19 25 11/19/2024 US, obste tric No observ ation record ed. [email or web address] [facility] [address] [place] [address], [address], 12/02/2024 14:05:06 Result Notes None recorded. Problems Name Problem SNOMED Code Status Onset Date Resolution Date Notes Provider Name and Address Organization Details Recorded Time 64880311 Active 2023 Cas Wei null, [place] - [facility] IV 4 12:23:45 Rubella non-immune 640646150 Active 2024 WOLF GUADARRAMA NP [address] [place] [address], [address], 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 - [facility] 5 18:48:16 RhD negative 196423006 Active 2024 RH (D) NIPT detected will [place] [address] [place] [address], [address], [facility] - [facility] 5 18:49:16 Large for gestation age fetus 315887647 Active 2024 EFW 98%tile on 10/22 Echogenic bowel 11/19-94%til e WOLF GUADARRAMA NP Replaced by [facility] [place], [address], [facility] - [facility] IV 5 14:05:39 Gestationa l diabetes mellitus 61862842 Active 2024 WOLF GUADARRAMA NP Replaced by [facility] [place], [address], [facility] - [facility] IV 5 17:52:44 Problem Notes None recorded. Procedures Surgical History Date Name Laterality Status Provider Name and Address Organization Details Recorded Time Appendectomy completed Rebecca Chadwick [place] - [facility] 06/09/2024 15:08:50 Imaging Results Imaging Date Name Status LastModified by Organiz ation Details LastModified Time 09/23/2024 US, obstetric, 2nd trimester completed [email or web address] [facility] [address] [place] [address], [address], 09/24/2024 15:24:20 10/21/2024 US, obstetric completed [facility]32 [facility] [address] [place], [address], 11/30/2024 13:18:29 11/19/2024 US, obstetric completed [facility] [address] [place], [address], 12/02/2024 14:05:06 Procedure Notes None recorded. Medical [...] 4 172.72 cm 26 kg/m2 83 % 99059.2 9527 g 120 mm[Hg] 70 mm[Hg] Lucinaandrea Rossi [facility] IV 4 15:43:01 Date Recorded Body weight Body mass index (BMI) Percentile per age and sex Body mass index (BMI) Body height Body temperature Systolic blood pressure Diastolic blood pressure Provider Name and Address Organization Details Last Updated DateTime 4 02548.8 94088 g 85 % 26.7 kg/m2 172.72 cm 96.6 [degF] 118 mm[Hg] 68 mm[Hg] Cristela Harpersangeeta [employer] IV 4 14:19:52 Date Recorded Body weight Body mass index (BMI) Body mass index (BMI) Percentile per age and sex Body height Systolic blood pressure Diastolic blood pressure Provider Name and Address Organization Details Last Updated DateTime 5 07526.4 4186 g 27.1 kg/m2 86 % 172.72 cm 110 mm[Hg] 70 mm[Hg] [facility] [employer] IV 5 14:46:18 Date Recorded Body weight Body mass index (BMI) Body mass index (BMI) Percentile per age and sex Body height Systolic blood pressure Diastolic blood pressure Provider Name and Address Organization Details Last Updated DateTime 5 20290.6 266 g 27.4 kg/m2 87 % 172.72 cm 112 mm[Hg] 68 mm[Hg] [facility] [employer] IV 5 16:44:47 Date Recorded Body weight Body mass index (BMI) Percentile per age and sex Body mass index (BMI) Body height Systolic blood pressure Diastolic blood pressure Provider Name and Address Organization Details Last Updated DateTime 5 90395.8 4949 g 86 % 26.9 kg/m2 172.72 cm 112 mm[Hg] 70 mm[Hg] [facility] [employer] IV 5 14:34:15 Social History Question Answer Notes LastModified by Organizat ion Details LastModified Time Tobacco Smoking Status Never Smoker Rebecca acosta, [employer] IV 06/09/2024 15:08:08 What Is Your Level Of Alcohol Consumption? None [email or web address] Information not available 06/09/2024 If You Are , What Was Your Level Of Alcohol Consumption Prior To ? None [email or web address] Information not available 06/09/2024 Are You Blind Or Do You Have Difficulty Seeing? No Information not available 06/23/2024 Are You Deaf Or Do You Have Serious Difficulty Hearing? No Information not available 06/23/2024 What Type Of Diet Are You Following? REGULAR [email or web address] Information not available 06/09/2024 How Many Children Do You Have? 0 [email or web address] Information not available 06/23/2024 What Is Your Relationship Status? Domestic Partner [email or web address] Information not available 06/09/2024 Are You Sexually Active? Yes [email or web address] Information not available 06/09/2024 Do You Use Any Illicit Or Recreational Drugs? No [email or web address] Information not available 06/09/2024 Do You Or Have You Ever Used Any Other Forms Of Tobacco Or Nicotine? No [email or web address] Information not available 06/09/2024 Sex: Unknown Functional [...] 15:07:47 Mother No current problems or disability [email or web address] Not available 05/13 15:07:47 Medical History Condition [...] SNOMED-CT Code Diagnosis ICD10 Code Diagnosis Note [id number] WOLF GUADARRAMA NP [address] [address] 06/09/2024 15:02:07 06/10/2024 15:59:32 Missed period 29709229 N92.6 Patient with possible early gestation. Patient is unsure of LMP possibly 6.17.24. Denies VB or abnormal discharge. SAB precaution s reviewed. To RTC in 2-3 weeks for repeat TVUS [id number] WOLF GUADARRAMA NP [address] [address] 06/23/2024 14:51:10 06/23/2024 16:28:07 test positive 891583530 Z32.01 Pt presents today for a confirmati [...] vitamins daily---To xoplasmosi s precaution s reviewed-- -[facility] Guide; What to expect on your maternity journey -- -S/S of SAB reviewed and when to seek care RTC for 1st OB, Labs, and Physical. --BMI:24.9 [id number] WOLF GUADARRAMA NP [facility] [address] [place] [address] 07/22/2024 16:12:51 07/22/2024 16:55:54 Gestation period, 11 weeks 58140970 Z3A.11 screening 2437 88668 Z36.89 Normal 4996457 2 Z34.90 Pt comes in today for a New/First OB visit.Gest ation:11 w3 dEDD: -- PMH: Anxiety-- Medication s: Taking daily PNV, paxton supp for N/V and tylenol-- Previous OB History: n/a-- Mom/Sister s with hx of Pre-Eclamp kelli:denies -- History of Genital HSV:denies -- Genetic Questions in OB Episode Done-- Accepts [employer]. Discussed logging on to the [employer] portal to find Gender Results POC-- NOB labs done today-- Accepts [employer] -- RTC 4 weeks Guide: Given and reviewed. Toxoplasmo sis precaution s reviewed. Reviewed office visit schedule during . Reviewed Quickening and normal FHTs. Carrier de tection, molecular genetics 9404224 Z14.8 [id number] WOLF GUADARRAMA NP [address] [address] 08/19/2024 16:40:21 08/21/2024 12:29:30 Normal 40580696 Z34.90 Pt is here for a KEYONNA [...] for pre-term labor. Gestation period, 15 weeks 0248320 Z3A.15 declines AFP will offer again at next appt. [id number] WOLF GUADARRAMA NP [facility] [address] [place] [address] 09/07/2024 15:50:39 09/07/2024 16:37:32 Normal 88829494 Z34.92 Pt is here for a KEYONNA [...] for pre-term labor. Gestation period, 18 weeks 84527598 Z3A.18 [id number] WOLF GUADARRAMAJENNIFER [address] [address] 09/30/2024 15:30:33 10/03/2024 14:06:30 Normal 69626192 Z34.90 Pt is here for a KEYONNA [...] for pre-term labor. Gestation period, 21 weeks 21313153 Z3A.21 Backache 762349639 O99.8 91 M54.9 [id number] WOLFSTEPHENIE GUADARRAMA NP [address] [address] 10/21/2024 14:10:22 10/21/2024 14:50:59 Gestation period, 24 weeks 621631504 Z3A.24 Normal 9502409 2 Z34.92 Pt is here for a KEYONNA appointmen t. She is taking vitamins. She has no complaints or questions. Reports feeling movement. Denies vaginal bleeding, abdominal cramps, N/V, contractio ns, or LOF. Denies headache, vision changes, swelling of hands or face, and epigastric pain. Discussed PTL and precaution s given. There are no identifiab le risk factors for pre-term labor. [id number] WOLF GUADARRAMA NP [facility] [address] [place] [address] 11/18/2024 14:41:31 11/19/2024 15:28:39 Normal 64700012 Z34.92 Pt is here for a KEYONNA [...] for pre-term labor. Gestation period, 28 weeks 01001293 Z3A.28 screening 2437 71860 Z36.89 [id number] WOLF GUADARRAMA NP [facility] [address] [place] [address] 11/26/2024 16:40:34 11/29/2024 05:26:51 Gestational diabetes mellitus complicating 6420211056 9106 O24.419 *GDM education completed. Discussed diet- [...] for pre-term labor. Gestation period, 29 weeks 59106301 Z3A.29 [id number] WOLF GUADARRAMA NP [facility] [address] [place] [address] 12/02/2024 14:30:01 12/04/2024 14:24:45 High risk 63046240 O09.90 Pt is here for a KEYONNA [...] for pre-term labor. Gestation period, 30 weeks 31638869 Z3A.30 Gestationa l diabetes mellitus 31135701 O24.410 Health Concerns Section Related Observation LastModified by Organization Detai ls LastModified Time None Recorded Concern Status LastModified by Organization Details LastModified Time None Recorded Advance Directives Directive None Recorded Payers Encounter Date Sequence Insurance Name Policy Number Policy Rivers Covered Member ID Rivers Member ID Guarantor Name 09/30/2024 1 [facility] (MEDICAID HMO) [id number] Lani Ho [id number] Lani Ho 10/21/2024 1 [facility] (MEDICAID HMO) [id number] Lani Ho [id number] Lani Ho 11/26/2024 1 [place] Lani Ho [id number] Lani Ho 12/02/2024 1 [place] Lani Ho [id number] Lani Ho Notes Date Note Type Note Provider Name and Address Organization Details Recorded Time 09/30/2024 text/html Lani is 21.3 weeks. She is here for a routine visit. She reports normal movement and she is taking vitamins. Anatomy scan was done at [facility]. WOLF GUADARRAMA NP [address] [facility], [place], [address], [facility] IV 10/01/2024 10:29:53 10/21/2024 text/html [...] or visual disturbances. WOLF GUADARRAMA NP [address] [place], [address], [facility] [employer] IV 10/21/2024 14:38:09 11/18/2024 text/html Patient is [...] @ 1:48 p.m. WOLF GUADARRAMA NP [address] [place], [address], [facility] IV 11/18/2024 18:56:16 11/26/2024 text/html Patient is [...] has no concerns. WOLF GUADARRAMA NP [address] [place], [address], [facility] IV 11/26/2024 17:58:04 12/02/2024 text/html Patient is [...] Pt. has no concerns. WOLF GUADARRAMA NP [address] [facility], [place], [address], [facility] 12/03/2024 14:55:08 OBGyn Episode Ob Episode Information Episode Created Date Number of Fetuses Patient Bloodtype Patient rh Status Prepregnancy Weight lbs Domestic Partner Domestic Partner Phone Father Name Recreational Leader Status 07/22/20 24 1 B Negative OPEN Fetus Data First Name Last Name Admitted to NICU Weight (g) Sex Living Outcome Pediatric Complications Fetus ID Race Codes Race Delivery Type [id number] Problems Problem Notes Problem Name Start Date End Date Resolution Snomed Code Not e RhD negative 11/18/2024 333212352 RH (D) NIPT detected will need Rhogam PP Large for gestation age fetus 11/18/20241995767541920 EFW 98%tile on 10/22 Echogenic bowel 11/19-94%tile Rubella non-immune 11/18/2024 923514113 Gestational diabetes mellitus 11/26/2024 92475770 Abnormal finding on screening of mother 11/18/2024 893173125 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) Taye Calculation [...] in lbs Pre/Post Dialysis Refused With clothes 164.864509207150 BP Diastolic BP Location Tested BP Systolic [...] in lbs Pre/Post Dialysis Refused With clothes 164.089436197328 BP Diastolic BP Location Tested BP Systolic [...] in lbs Pre/Post Dialysis Refused With clothes 165.003760152130 BP Diastolic BP Location Tested BP Systolic [...] Type Weight in lbs Pre/Post Dialysis Refused 171.874115688672 BP Diastolic BP Location Tested BP Systolic [...] in lbs Pre/Post Dialysis Refused With clothes 175.819120436165 BP Diastolic BP Location Tested BP Systolic [...] Type Weight in lbs Pre/Post Dialysis Refused 178.608309775486 BP Diastolic BP Location Tested BP Systolic [...] Type Weight in lbs Pre/Post Dialysis Refused 180.654462266806 BP Diastolic BP Location Tested BP Systolic [...] Type Weight in lbs Pre/Post Dialysis Refused 177.380611925729 BP Diastolic BP Location Tested BP Systolic [...]
--- OUTSIDE RECORDS SUMMARY | 2025-02-04 06:21 | XMS_ITS ---
Author Organization Unknown Address [address] [place] [phone] Phone Care Team Providers Care Occupational Therapy Department Chair Name Role Phone Blanco Gallego Attending Unavailable [...] Date/Time: 03/12/2023 14:51 [facility] ID: [id number] [address], [place], [id number] LOINC: 6556-5 Test Value Unit Reference Range Code Code System Flag COVID RAPID ANTI NEGATIVE NORMAL: NEGATIVE LOT#: [id number] Exp Date: 12/07/2023 QC: ACCEPTABLE STREP A SCREEN - Collect Sha e/Time: 03/12/2023 14:50 [facility] ID: [id number] [address], [place], [address] LOINC: 6556-5 Test Value Unit Reference Range Code Code System Flag STREP SCREEN NEGATIVE NORMAL: NEGATIVE 6556-5 LOINC Lot#: [id number] Exp Date: 04/10/2024 QC STREP ACCEPTABLE Social History Type Status Start Date End Date Code Code Syst em Smoking History Never smoker (Never Smoked) 288256006 SNOMED CT Sex Female Sexual Orientation Straight or Heterosexual 00852379 SNOMED CT Gender Identity Female 06722211115290 [address] Vital Signs Vital Sign Value Unit Wilkes Value Wilkes Unit Date/Time Recent/Initial? Code Code System Body Mass Index 23.57 kg/m2 03/12/2023 14:40 Initial 99193 -5 LOINC Body Mass Index Percentile 71 % 03/12/2023 14:40 Initial 87875 -9 LOINC Systolic Blood Pressure 100 mm[Hg] 03/12/2023 14:40 Initial 8480- 6 LOINC Diastolic Blood Pressure 68 mm[Hg] 03/12/2023 14:40 Initial 8462- 4 LOINC Body Surface Area 1.84 m2 03/12/2023 14:40 Initial 3140- 1 LOINC Height 172.720 0 cm 68.00 in 03/12/2023 14:40 Initial 8302- 2 INC O2 Saturation 95 % 2022 14:40 Initial 68245 -5 LOINC Pulse 56.0 /min 03/12/2023 14:40 Initial 8867- 4 LOINC Respiration 16 /min 03/12/20 14:40 Initial 9279- 1 LOINC Temperature 37.5 Antonella 99.5 F 03/12/20 14:40 Initial 8310- 5 INC Weight 70.31 kg 155.00 lbs 03/12/2023 14:40 Initial 83603 -7 [facility] Medications Medication Start Date End Date Route Frequency Dose Code Code System Medication Instructions Home Meds Methocarbamol 750MG Oral Tablet 12/25/2022 03/12/2023 By Mouth As needed every 8 hr 685736 RxNorm 1-2 TABLET By Mouth As needed every 8 hr [place]-28 30 MCG-0.15 MG; NA Oral Tablet 12/25/2022 03/12/2023 By Mouth Daily 1 TABLET 591840 RxNorm 1 TABLET By Mouth Daily Macrobid 100MG Oral Capsule 02/20/2023 03/12/2023 By mouth Twice a day 1 TABLET 763857 RxNorm 1 TABLET By mouth Twice a day X 7 DAYS Pyridium 100MG Oral Tablet 02/20/2023 03/12/2023 By mouth As needed every 8 hr 1 TABLET 2687455 RxNorm 1 TABLET By mouth As needed every 8 hr for urinary pain ZyrTEC Allergy 10MG Oral Capsule, Liquid Filled 03/12/2023 Unknown By Mouth Daily 1 CAPSULE 0264062 RxNorm 1 CAPSULE By Mouth Daily Fluticasone 0.05MG/1Actuati on Nasal [place] 03/12/2023 Unknown Nasal Daily 1 Sprays 1194612 RxNorm 1 Spr ays Nasal Daily Azithromycin 500MG Oral Tablet 06/04/2024 Unknown By Mouth x1 NOW 2 TABLET 317209 RxNorm 2 TABLET By Mouth x1 NOW [...] Status Code Code System SEASONAL ALLERGY active 015942351 SNO MED-CT FAMILY PLANNING 06/20/2020 active 680146613 SNO MED-CT BITE OF INSECT active 548827124 SNOME D-CT ES OF VAGINA 08/07/2022 active 19261875 S NOMED-CT MENORRHAGIA active 129226234 SNOMED-C T PAINFUL NECK active 46335361 SNOMED- CT ADHD OF CHILDHOOD 07/22/2019 resolved 063638780 S NOMED-CT SEASONAL NASAL ALLERGY 07/22/2019 resolved 995578 001 SNOMED-CT HISTORY OF CHICKENPOX 07/22/2019 resolved 3857782 08 SNOMED-CT Allergies and Adverse Reactions Allergy Substance Reaction Severity Start Date Concern Status Co de Code System Active seasonal allergies Active No Known Drug Allergies Active 510926146 SNOMED-CT No Known Drug Allergies Active 359019133 SNOMED-CT Plan of Treatment Description Due Date Details Instructions DEPRESSION SCREENING DUE 06/20/2021 Encounters Encounter Diagnosis Start Date Code Code Sys tem Seasonal allergic rhinitis 03/12/2023 400539860 S NOMED-CT Personal Care Team Section Performer [...] is an 17 yo female presents to [facility] today for sore throat and cough. Pt [...] records Referring and communicating with other health weekend caregiver x Obtaining and/or reviewing separately obtained [...] Patient Name: NELA MANZANARES was seen at [facility] [phone] on Date of Service: 03/12/2023 . They may return to school on 03/13/2023 with No restrictions . .
--- OUTSIDE RECORDS SUMMARY | 2025-02-04 06:21 | XMS_ITS ---
Author Organization Unknown Address [address] [place] [phone] Phone Care Team Providers Care Solar Sales Ambassador Name Role Phone VIRAL Brody Attending Unavailable [...] - Collect Date/Time: 06/03/2024 15:21 [facility] ID: [id number] [address] [place] [address], [id number] LOINC: Test Value Unit Reference Range Code [...] em Smoking History Never smoker (Never Smoked) 600270863 SNOMED CT Sex Female Sexual Orientation Straight or Heterosexual 62995123 SNOMED CT Gender Identity Female [id number] [address] Vital Signs Vital Sign Value Unit [place] Value [place] Unit Date/Time Recent/Initial? Code Code System Body Mass Index 25.85 kg/m2 06/03/2024 14:31 Initial 12375 -5 [facility] Body Mass Index Percentile 82 % 06/03/2024 14:31 Initial 43366 -9 [facility] Systolic Blood Pressure 118 mm[Hg] 06/03/2024 15:46 Most Recent 8480- 6 LOINC Diastolic Blood Pressure 82 mm[Hg] 06/03/2024 15:46 Most Recent 8462- 4 [facility] Systolic Blood Pressure 136 mm[Hg] 06/03/2024 14:31 Initial 8480- 6 [facility] Diastolic Blood Pressure 95 mm[Hg] 06/03/2024 14:31 Initial 8462- 4 [facility] Body Surface Area 1.92 m2 06/03/2024 14:31 Initial 3140- 1 [facility] Height 172.720 0 cm 68.00 in 06/03/2024 14:31 Initial 8302- 2 [facility] O2 Saturation 100 % 2023 14:31 Initial 35360 -5 [facility] Pulse 93.0 /min 06/03/2024 14:31 Initial 8867- 4 INC Temperature 36.7 Antonella 98.0 F 06/03/20 14:31 Initial 8310- 5 [facility] Weight 77.11 kg 170.00 lbs 06/03/2024 14:31 Initial 33285 -7 [facility] Medications Medication Start Date End Date Route Frequency Dose Code Code System Medication Instructions Home Meds ZyrTEC Allergy 10MG Oral Capsule, Liquid Filled 03/12/2023 Unknown By Mouth Daily 1 CAPSULE 8881080 RxNorm 1 CAPSULE By Mouth Daily Fluticasone 0.05MG/1Actuatio n Nasal [place] 03/12/2023 Unknown Nasal Daily 1 Sprays 4845945 RxNorm 1 Spra ys Nasal Daily Azithromycin 500MG Oral Tablet 06/04/2024 Unknown By Mouth x1 NOW 2 TABLET 952069 RxNorm 2 TABLET By Mouth x1 NOW [...] sex practices. 3. -Keep follow up with [facility] for next week. -Given handouts for [...] up. This examination was transcribed using the Optichron voice recognition system without a human law professor. To expedite patient care, this report has not been adjusted for typographical, or medical, or syntax by a trained medical transcription editor. Hospital Discharge Instructions Should you have any questions prior to discharge, please contact a member of your healthcare team. If you have left the hospital and have any questions, please contact your primary care physician. Reason For Referral No Data Found Problems Problem Start Date Resolved Date Status Code Code System SEASONAL ALLERGY active 296069328 SNO MED-CT FAMILY PLANNING 06/20/2020 active 769233194 SNO MED-CT BITE OF INSECT active 482371662 SNOME D-CT ES OF VAGINA 08/07/2022 active 89374852 S NOMED-CT MENORRHAGIA active 529601107 SNOMED-C T PAINFUL NECK active 08037246 SNOMED- CT ADHD OF CHILDHOOD 07/22/2019 resolved 912109662 S NOMED-CT SEASONAL NASAL ALLERGY 07/22/2019 resolved 391577 001 SNOMED-CT HISTORY OF CHICKENPOX 07/22/2019 resolved 4278868 08 SNOMED-CT Allergies and Adverse Reactions Allergy Substance Reaction Severity Start Date Concern Status Co de Code System Active seasonal allergies Active No Known Drug Allergies Active 844312051 SNOMED-CT No Known Drug Allergies Active 185429050 SNOMED-CT Plan of Treatment Description Due Date Details Instructions DEPRESSION SCREENING DUE 06/20/2021 Future Order Description Future Order Date Futu re Order Loinc: TRICHOMONAS VAGINALIS FEMALE RNA QUAL LOINC: 40310-6 GC PCR [facility] 06/03/2024 LOINC: 95041-8 CHLAMYDIA PCR [facility] 06/03/2024 LOINC: 41238- 5 BACTERIAL VAGINOSIS RAPID TEST 06/03/2024 LOINC: 6410-5 CULTURE YEAST, WITH IDENTIFICATION 06/03/2024 LOINC: 42972-1 Encounters Encounter Diagnosis Start Date Code Code Sys tem Acute vaginitis 06/03/2024 28398458 SNOMED-CT Personal Care Team Section Performer Name Performer Role Active Date Inactive Da te Progress Notes [facility] 06/03/2024 15:50 Date of Service: [...] April. She has an appointment scheduled with [facility] for an OBGYN next week. She denies [...] sex practices. 3. -Keep follow up with [facility] for next week. -Given handouts for [...] up. This examination was transcribed using the Optichron voice recognition system without a human law professor. To expedite patient care, this report has not been adjusted for typographical, or medical, or syntax by a trained medical transcription editor. Meds Given This Visit: Meds ordered and administered this visit: No Current Medications Available Discharge Med List: Discharge Medications Medication Special Instructions Start Date Prescribing Fluticasone 0.05MG/1Actuation Nasal [place] 1 Sprays Nasal Daily 03/12/2023 Blanco Gallego ZyrTEC Allergy 10MG Oral Capsule, Liquid Filled 1 CAPSULE By Mouth Daily 03/12/2023 Blanco Gallego
--- OUTSIDE RECORDS SUMMARY | 2025-02-04 06:21 | XMS_ITS ---
Author Organization Unknown Address [address], [place] [phone] Phone Care Team Providers Care Cupola Hoist Operator Name Role Phone Shahanacristian AltamiranoOpal Attending Unavailable Results BACTERIAL VAGINOSIS RAPID TE ST - Collect Date/Time: 07/31/2022 17:20 [facility] ID: [id number] [address], [place], [id number] LOINC: 6410-5 Test Value Unit Reference Range Code Code System Flag BACTERIAL VAGINOSIS NEGATIVE NORMAL: NEGATIVE CULTURE YEAST, WITH IDENTIFI CATION - Collect Date/Time: 07/31/2022 17:19 [facility] ID: [id number] [address], [place], [id number] LOINC: 5048-4 Test Value Unit Reference Range Code Code System Flag SOURCE: VAGINAL STATUS: FINAL ISOLATE 1: Margoth albicans A CULTURE: Culture in progress TRICHOMONAS VAGINALIS FEMALE RNA QUAL - Collect Date/Time: 07/31/2022 17:19 [facility] ID: [id number] [address], [place], [phone] LOINC: 42832-0 Test Value Unit Reference Range Code Code System Flag TRICHOMONAS VAGINALISRNA, QL TMA NOT DETECTED NOT DETECTED CHLAMYDIA/GC URINE RNA, TMA APTIMA - Collect Date/Time: 07/31/2022 17:19 [facility] ID: [id number] [address], [place], [id number] LOINC: 5048-4 Test Value Unit Reference Range Code Code System Flag CHLAMYDIA TRACHOMATISRNA, TMA, UROGENITAL NOT DETECTED NOT DETECTED NEISSERIA GONORRHOEAERNA, TMA, UROGENITAL NOT DETECTED NOT DETECTED Social History Type Status Start Date End Date Code Code Syst em Smoking History Never smoker (Never Smoked) 617524632 SNOMED CT Sex Female Sexual Orientation Straight or Heterosexual 06641267 SNOMED CT Gender Identity Female 87220876461954 [address] Medications Medication Start Date End Date Route Frequency Dose Code Code System Medication Instructions Home Meds Anel-28 30MCG-0.15MG-NA Oral Tablet 06/07/2022 09/12/2022 By Mouth Daily 1 TABLET 151917 RxNorm 1 TABLET By Mouth Daily Diflucan [...] 02/20/2023 By Mouth As Directed 1 PACK 873996 RxNorm 1 PACK By Mouth As Directed Methocarbamol 750MG Oral Tablet 12/25/2022 03/12/2023 By Mouth As needed every 8 hr 322929 RxNorm 1-2 TABLET By Mouth As needed every 8 hr [place]-28 30 MCG-0.15 MG; NA Oral Tablet 12/25/2022 03/12/2023 By Mouth Daily 1 TABLET 713364 RxNorm 1 TABLET By Mouth Daily Macrobid 100MG Oral Capsule 02/20/2023 03/12/2023 By mouth Twice a day 1 TABLET 592004 RxNorm 1 TABLET By mouth Twice a day X 7 DAYS Pyridium 100MG Oral Tablet 02/20/2023 03/12/2023 By mouth As needed every 8 hr 1 TABLET 1654809 RxNorm 1 TABLET By mouth As needed every 8 hr for urinary pain ZyrTEC Allergy 10MG Oral Capsule, Liquid Filled 03/12/2023 Unknown By Mouth Daily 1 CAPSULE 3714613 RxNorm 1 CAPSULE By Mouth Daily Fluticasone 0.05MG/1Actuatio n Nasal [place] 03/12/2023 Unknown Nasal Daily 1 Sprays 5740015 RxNorm 1 Spra ys Nasal Daily Azithromycin 500MG Oral Tablet 06/04/2024 Unknown By Mouth x1 NOW 2 TABLET 135081 RxNorm 2 TABLET By Mouth x1 NOW [...] Status Code Code System SEASONAL ALLERGY active 018914761 SNO MED-CT FAMILY PLANNING 06/20/2020 active 416888136 SNO MED-CT BITE OF INSECT active 030436935 SNOME D-CT MARGOTH OF VAGINA 08/07/2022 active 61915995 S NOMED-CT MENORRHAGIA active 112902052 SNOMED-C T PAINFUL NECK active 94410336 SNOMED- CT ADHD OF CHILDHOOD 07/22/2019 resolved 252372507 S NOMED-CT SEASONAL NASAL ALLERGY 07/22/2019 resolved 412794 001 SNOMED-CT HISTORY OF CHICKENPOX 07/22/2019 resolved 8413714 08 SNOMED-CT Allergies and Adverse Reactions Allergy Substance Reaction Severity Start Date Concern Status Co de Code System Active seasonal allergies Active No Known Drug Allergies Active 468356206 SNOMED-CT No Known Drug Allergies Active 954932344 SNOMED-CT Plan of Treatment Description Due Date Details Instructions DEPRESSION SCREENING DUE 06/20/2021 Encounters Encounter Diagnosis Start Date Code Code Sys tem Noninflammatory disorder of the vagina 07/31/2022 22 346854 SNOMED-CT Personal Care Team Section Performer Name Performer Role Active Date Inactive Da xena
--- OUTSIDE RECORDS SUMMARY | 2025-02-04 06:21 | XMS_ITS ---
Author Organization Unknown Address [address] [place] [phone] Phone Care Team Providers Care Open Hearth Helper Name Role Phone TABATHA RODGERS Attending Unavailable [...] em Smoking History Never smoker (Never Smoked) 837797133 SNOMED CT Sex Female Sexual Orientation Straight or Heterosexual 42286834 SNOMED CT Gender Identity Female 07420701126588 [address] Medications Medication Start Date End Date Route Frequency Dose Code Code System Medication Instructions Home Meds predniSONE 50MG Oral Tablet 06/07/2022 07/31/2022 By Mouth Daily 1 TABLET 580968 RxNorm 1 TABLET By Mouth Daily [place]-28 30MCG-0.15MG-NA Oral Tablet 06/07/2022 09/12/2022 By Mouth Daily 1 TABLET 006409 RxNorm 1 TABLET By Mouth Daily Diflucan 150MG Oral Tablet 08/07/2022 09/12/2022 By Mouth x1 NOW 1 TABLET 295138 RxNorm 1 TABLET By Mouth x1 NOW FOR MARCH REPEAT IN 72 HOURS Radha 28 3MG-0.02MG Oral Tablet 09/12/2022 12/25/2022 By Mouth Once a day 1 TABLET RxNorm 1 TABLET By Mouth Once a day Medrol Dosepak 4MG Oral Tablet 12/25/2022 02/20/2023 By Mouth As Directed 1 PACK 913467 RxNorm 1 PACK By Mouth As Directed Methocarbamol 750MG Oral Tablet 12/25/2022 03/12/2023 By Mouth As needed every 8 hr 802505 RxNorm 1-2 TABLET By Mouth As needed every 8 hr [place]-28 30 MCG-0.15 MG; NA Oral Tablet 12/25/2022 03/12/2023 By Mouth Daily 1 TABLET 424185 RxNorm 1 TABLET By Mouth Daily Macrobid 100MG Oral Capsule 02/20/2023 03/12/2023 By mouth Twice a day 1 TABLET 926780 RxNorm 1 TABLET By mouth Twice a day X 7 DAYS Pyridium 100MG Oral Tablet 02/20/2023 03/12/2023 By mouth As needed every 8 hr 1 TABLET 7218750 RxNorm 1 TABLET By mouth As needed every 8 hr for urinary pain ZyrTEC Allergy 10MG Oral Capsule, Liquid Filled 03/12/2023 Unknown By Mouth Daily 1 CAPSULE 5557208 RxNorm 1 CAPSULE By Mouth Daily Fluticasone 0.05MG/1Actuati on Nasal [place] 03/12/2023 Unknown Nasal Daily 1 Sprays 4545033 RxNorm 1 Spr ays Nasal Daily Azithromycin 500MG Oral Tablet 06/04/2024 Unknown By Mouth x1 NOW 2 TABLET 527787 RxNorm 2 TABLET By Mouth x1 NOW [...] Status Code Code System SEASONAL ALLERGY active 967931947 SNO MED-CT FAMILY PLANNING 06/20/2020 active 321235388 SNO MED-CT BITE OF INSECT active 747395561 SNOME D-CT ES OF VAGINA 08/07/2022 active 77117977 S NOMED-CT MENORRHAGIA active 210065258 SNOMED-C T PAINFUL NECK active 93070206 SNOMED- CT ADHD OF CHILDHOOD 07/22/2019 resolved 866609489 S NOMED-CT SEASONAL NASAL ALLERGY 07/22/2019 resolved 739270 001 SNOMED-CT HISTORY OF CHICKENPOX 07/22/2019 resolved 8890616 08 SNOMED-CT Allergies and Adverse Reactions Allergy Substance Reaction Severity Start Date Concern Status Co de Code System Active seasonal allergies Active No Known Drug Allergies Active 293866090 SNOMED-CT No Known Drug Allergies Active 648545381 SNOMED-CT Plan of Treatment Description Due Date Details Instructions DEPRESSION SCREENING DUE 06/20/2021 Personal Care Team Section Performer Name Performer Role Active Date Inactive David mccallum
--- OUTSIDE RECORDS SUMMARY | 2025-02-04 06:21 | XMS_ITS | Clinical Summary ---
Author Organization [facility] Address [address] [place] [address] Care Team Providers Care Sticker Machine Operator Name Role Phone Faustino Matta MD Primary Care Provider [phone] [facility],non-owned Affiliates and Associated Physician Practices is amultiple site organization consisting of ambulatory clinics and hospital sitesin [place], [place], [place] and [place]. This disclosure is being madepursuant to the Care Everywhere program and may not contain all information available regarding this patient. Last updated 18.[facility] Allergies No known active allergies Medications [...] Care Team Description 12/15/2024 Telephone [facility] [address] [place] [address] Akosua Burns Appointment 11/24/2024 Orders Only [facility] - UNIX MANAGER [address] [place] [address] Jennifer Paul MD 11/19/2024 1:00 PM LIBRARY ACQUISITIONS TECHNICIAN - 11/19/2024 11:59 PM LIBRARY ACQUISITIONS TECHNICIAN Hospital Encounter [facility] [address] [place] [address] Tiff Arriaza MD Discharge Disposition: Home or Self Care from Last 3 Months Family History Relation [...] - 19+ 3-dose series) 2023 COVID-19 VACCINE (2023-2 5 season) 2024 03/16/2021, 02/21/2021 INFLUENZA VACCINE [...] CYTOMEGALOVIRUS AB IGG AVIDITY 11/24/2024 2:44 PM LIBRARY ACQUISITIONS TECHNICIAN SONOGRAM - COMPLETE Routine 11/19/2024 1 :11 PM LIBRARY ACQUISITIONS TECHNICIAN Encounter for ultrasound Rh negative, antepartum Rubella non-immune status, antepartum Primigravida, antepartum 28 weeks gestation of Genetic anomalies of leukocytes Abnormal genetic test in CYTOMEGALOVIRUS ANTIBODY IGG BLOOD 11/10/2024 1:50 PM LIBRARY ACQUISITIONS TECHNICIAN from Last 3 Months Results * CYTOMEGALOVIRUS AB IGG AVIDITY (11/24/2024 2:44 PM LIBRARY ACQUISITIONS TECHNICIAN) Cytomegalovirus Antibody IgG Avidity Index 0.90 [facility] [...] analytical performance characteristics have been determined by [facility]. It has not been cleared or approved by FDA. This assay has been validated pursuant to the CLIA regulations and is used for clinical purposes. For additional information, please refer to http://education.Picatcha/faq/AQB367 (This link is being provided for informational/ educational purposes only.) Test Performed at: [facility] [address] [place] [address] KWAKU SUMMERS MD,PHD,STARR 11/24/2024 2:44 PM LIBRARY ACQUISITIONS TECHNICIAN 11/24/2024 2:45 PM LIBRARY ACQUISITIONS TECHNICIAN Jennifer Paul MD LAB - SEROLOGY LEIF GONZALEZ [facility] [address] [place] [address] * SONOGRAM - COMPLETE (11/19/2024 1:11 PM LIBRARY ACQUISITIONS TECHNICIAN) Linked Results Indication ======== 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 [...] 3 lb 8 oz EFW by Hadlock ([id number]) appropriate Growth Overview Exam date [place] BPD [...] redraw of CMV Avidity Coding ====== Procedures 93629: US Preg Uterus Follow Up ore PACS Anatomical Region Laterality Modality Other 11/19/2024 1:11 PM LIBRARY ACQUISITIONS TECHNICIAN Jonny Cabrera DO [facility] ORDERABLES * (ABNORMAL) CYTOMEGALOVIRUS ANTIBODY IGG BLOOD (11/10/2024 1:50 PM LIBRARY ACQUISITIONS TECHNICIAN) Cytomegalovirus Antibody IgG >10.00(H) U/mL [employer] Comment: U/mL Interpretation ----- <0.60 Negative 0.60-0.69 Equivocal > or = 0.70 Positive A positive result indicates that the patient has antibody to CMV. It does not differentiate between an active or past infection. Test Performed at: [facility] [address] [place] [address] PINEDA TAM MD 11/10/2024 1:50 PM LIBRARY ACQUISITIONS TECHNICIAN 11/10/2024 1:53 PM LIBRARY ACQUISITIONS TECHNICIAN Britany Garcia RUBBER STAMP MAKER-[employer]URL[employer] WORKER LAB - CHEMI STRY ORDERABLES [facility] [address] [place] [address] from Last 3 Months Care Teams Sticker Machine Operator Relationship Specialty Start Date End Date Faustino Matta MD [facility] [facility] [address] [place] [address] PCP - General Pediatrics 08/05/12
--- OUTSIDE RECORDS SUMMARY | 2025-02-04 06:21 | XMS_ITS ---
Author Organization Unknown Address [address] [place], [place] [id number] Phone Care Team Providers Care Golf Course Manager Name Role Phone JOSUE FULTON EDMOND Attending Unavailable Results CULTURE YEAST, WITH IDENTIFI CATION - Collect Date/Time: 02/20/2023 18:42 [facility] ID: [id number] [address] [place], [place], [id number] LOINC: 5048-4 Test Value Unit Reference Range Code Code System Flag SOURCE: VAGINAL STATUS: FINAL ISOLATE 1: Margoth albicans A TRICHOMONAS VAGINALIS FEMALE RNA QUAL - Collect Date/Time: 02/20/2023 18:40 [facility] ID: [id number] [address] [place], [place], [phone] LOINC: 68336-2 Test Value Unit Reference Range Code Code System Flag TRICHOMONAS VAGINALISRNA, QL TMA NOT DETECTED NOT DETECTED GC/CHLAMYDIA PCR [facility] ct Date/Time: 02/20/2023 18:40 [facility] ID: [id number] [address] [place], [place], [phone] LOINC: 5048-4 Test Value Unit Reference Range Code Code System Flag GONORRHEA PCR NOT DETECTED NORMAL: NOT DETECTED CHLAMYDIA PCR NOT DETECTED NORMAL: NOT DETECTED BACTERIAL VAGINOSIS RAPID TE ST - Collect Date/Time: 02/20/2023 18:40 [facility] ID: [id number] [address] [place], [place], [address] LOINC: 6410-5 Test Value Unit Reference Range Code Code System Flag BACTERIAL VAGINOSIS NEGATIVE NORMAL: NEGATIVE Social History Type Status Start Date End Date Code Code Syst em Smoking History Never smoker (Never Smoked) 076276967 SNOMED CT Sex Female Sexual Orientation Straight or Heterosexual 46138618 SNOMED CT Gender Identity Female [id number] Medications Medication Start Date End Date Route Frequency Dose Code Code System Medication Instructions Home Meds Methocarbamol 750MG Oral Tablet 12/25/2022 03/12/2023 By Mouth As needed every 8 hr 377103 RxNorm 1-2 TABLET By Mouth As needed every 8 hr [place]-28 30 MCG-0.15 MG; NA Oral Tablet 12/25/2022 03/12/2023 By Mouth Daily 1 TABLET 729589 RxNorm 1 TABLET By Mouth Daily Macrobid 100MG Oral Capsule 02/20/2023 03/12/2023 By mouth Twice a day 1 TABLET 455927 RxNorm 1 TABLET By mouth Twice a day X 7 DAYS Pyridium 100MG Oral Tablet 02/20/2023 03/12/2023 By mouth As needed every 8 hr 1 TABLET 0416196 RxNorm 1 TABLET By mouth As needed every 8 hr for urinary pain ZyrTEC Allergy 10MG Oral Capsule, Liquid Filled 03/12/2023 Unknown By Mouth Daily 1 CAPSULE 5532362 RxNorm 1 CAPSULE By Mouth Daily Fluticasone 0.05MG/1Actuati on Nasal [place] 03/12/2023 Unknown Nasal Daily 1 Sprays 5596668 RxNorm 1 Spr ays Nasal Daily Azithromycin 500MG Oral Tablet 06/04/2024 Unknown By Mouth x1 NOW 2 TABLET 248395 RxNorm 2 TABLET By Mouth x1 NOW [...] Status Code Code System SEASONAL ALLERGY active 959247189 SNO MED-CT FAMILY PLANNING 06/20/2020 active 423973538 SNO MED-CT BITE OF INSECT active 565676873 SNOME D-CT MARGOTH OF VAGINA 08/07/2022 active 91037634 S NOMED-CT MENORRHAGIA active 487020794 SNOMED-C T PAINFUL NECK active 23799243 SNOMED- CT ADHD OF CHILDHOOD 07/22/2019 resolved 254658946 S NOMED-CT SEASONAL NASAL ALLERGY 07/22/2019 resolved 329260 001 SNOMED-CT HISTORY OF CHICKENPOX 07/22/2019 resolved 9273757 08 SNOMED-CT Allergies and Adverse Reactions Allergy Substance Reaction Severity Start Date Concern Status Co de Code System Active seasonal allergies Active No Known Drug Allergies Active 233222532 SNOMED-CT No Known Drug Allergies Active 809124548 SNOMED-CT Plan of Treatment Description Due Date Details Instructions DEPRESSION SCREENING DUE 06/20/2021 Encounters Encounter Diagnosis Start Date Code Code Sys tem Dysuria 02/20/2023 48727356 SNOMED-CT Personal Care Team Section Performer Name Performer Role Active Date Inactive Da xena
--- OUTSIDE RECORDS SUMMARY | 2025-02-04 06:22 | XMS_ITS | Data Portability ---
Author Organization [facility] [place] Address [address] [place] [address] [place] [address] Assessment No assessment recorded. Plan of Treatment Reminders Order Date Submit Date Provider Last Modified By Organization Details Last Modified Time Details Appointments None recorded. Lab None recorded. Referral None recorded. Procedures None recorded. Surgeries None recorded. Imaging non-stress test [address] [facility] [address], [place], [address], 02:43:02 US, obstetric, biophysical profile + non-stress test [email or web address], [facility] [address], [place], [address], 18:08:11 US, obstetric, follow-up 2024 025 neel [place] [address], [address], [place], [address], 22:39:45 US, obstetric, biophysical profile + non-stress test 2024 025 neel [place], [facility] [address], [place], [address], 22:39:45 non-stress test 20[address] [facility] [address], [place], [address], 06:37:12 Medication Orders None recorded. Patient TargetsNo [...] t Abnor mal: No Resul ting Lab: [facility] [address] [facility] [address] Tel: CULTU RE ----- ----- ----- --- No growt h in 1 day (dete ction level of 10,00 0 colon ies / ml.) Not Available [facility] (Lab) [address] [facility], [place], [address], 01/03/2025 23:55:30 01/12/2001/11/2025 CULTU RE: GROUP B [...] t Abnor mal: Yes Resul ting Lab: [facility] [address] [facility] [address] Tel: CULTU RE ----- ----- ----- --- Posit arabella for Strep tococ cus agala ctiae (Grou p B) (Abno rmal) Clind amyci n = resis tant, eryth romyc in = resis tant. Cefaz siai may be used for intra partu m proph ylaxi s in penic illin -bryan rgic women at low risk, and Vanco mycin is recom shahida d for women at high risk for anaph ylaxi s. Adalid ptibi lity testi ng is not neces hugo for these drugs . Not Available [facility] (Lab) [address], [place], [address], 01/15/2025 16:18:09 12/15/19 25 12/15/2024 US, obste tric, follo w-up No observ ation record ed. [email or web address] [place] [address], [place], [address], 12/15/2024 13:52:35 12/15/19 25 12/15/2024 US, obste tric, follo w-up No observ ation record ed. [email or web address] [address] [facility], [place], [address], 12/15/2024 22:51:06 12/30/19 25 12/30/2024 non-s tress test No observ ation record ed. [place] [id number], [place], [address], 01/01/2025 13:38:09 01/12/20 25 01/11/2025 non-s tress test No observ ation record ed. [email or web address] [place] [address], [place], [address], 01/11/2025 11:07:08 01/12/20 25 01/11/2025 US, obste tric, follo w-up No observ ation record ed. [email or web address] [place] [address], [place], [address], 01/11/2025 17:20:12 01/12/20 25 01/11/2025 US, obste tric, bioph ysica l profi le + non-s tress test No observ ation record ed. [email or web address] [place] [address], [place], [address], 01/11/2025 17:20:21 01/12/20 25 01/11/2025 US, obste tric, follo w-up No observ ation record ed. [email or web address] [address], [place], [address], 01/11/2025 22:14:29 01/19/20 25 01/18/2025 US, obste tric, bioph ysica l profi le + non-s tress test No observ ation record ed. [email or web address] [place] [address], [place], [address], 01/18/2025 18:13:15 01/19/20 25 01/18/2025 US, obste tric, bioph ysica l profi le + non-s tress test No observ ation record ed. [email or web address] [address], [facility], [place], [address], 01/18/2025 14:29:09 01/19/20 25 01/18/2025 non-s tress test No observ ation record ed. [email or web address] [place] [address], [place], [address], 01/18/2025 14:40:38 01/24/20 25 01/23/2025 non-s tress test No observ ation record ed. [address], [place], [address], 01/26/2025 15:08:47 01/24/20 25 01/23/2025 non-s tress test No observ ation record ed. [place] [id number] [facility] [address], [place], [address], 01/26/2025 15:08:13 Result Notes None recorded. Problems Name Problem SNOMED Code Status Onset Date Resolution Date Notes Provider Name and Address Organization Details Recorded Time Pregnanc y 39201042 Completed 202402/02/2025 Yue Chandler null, [facility] 19:59:31 Klinefel ter's syndrome , XXY 811599985 Completed High risk on NIPT; declined amniocen tesis; genetic testing at delivery TRINI RODRIGUEZ MD [address], [place], [address], [facility] 22:12:52 Large for gestatio n age fetus 592194730 Completed 94% at 11/2024 [facility] TRINI RODRIGUEZ MD [address], [place], [address], [facility] 22:40:35 Cytomega lovirus antibody screenin g Completed Positive per [facility]; echogeni c bowel on 3T US, resolved on later scan; twice weekly antenata l testing per [facility] TRINI RODRIGUEZ MD [address], [place], [address], [facility] 22:12:30 Gestatio nal diabetes mellitus 05122212 Completed TRINI RODRIGUEZ MD [address], [place], [address], [facility] 22:40:11 Gestatio nal diabetes mellitus 96931154 Active TRINI RODRIGUEZ MD [address], [place], [address], [facility] 5 22:40:11 Cytomega lovirus antibody screenin g Active [facility]; echogeni c bowel on 3T US, resolved on later scan; twice weekly antenata l testing per [facility] TRINI RODRIGUEZ MD [address], [place], [address], [facility] 22:40:[address]'s syndrome , XXY 483388817 Active High risk on NIPT; declined amniocen tesis; genetic testing at delivery TRINI RODRIGUEZ MD [address], [place], [address], [facility] 22:40:36 Large for gestatio n age fetus 797640921 Active 94% at 11/2024 [facility] TRINI RODRIGUEZ MD [address], [place], [address], [facility] 22:40:38 Problem Notes None recorded. Procedures Surgical History Date Name Laterality Status Provider Name and Address Organization Details Recorded Time Appendectomy completed Zelda Wang [facility] 12/15/2024 13:12:49 Appendectomy completed Julieta Goddard [facility] 12/30/2024 17:09:16 Imaging Results Imaging Date Name Status LastModified by Organiz ation Details LastModified Time 12/15/2024 US, obstetric, follow-up completed [email or web address] [place] [address], [place], [address], 12/15/2024 13:52:35 12/15/2024 US, obstetric, follow-up completed [email or web address] [address], [place], [address], 12/15/2024 22:51:06 12/30/2024 non-stress test completed [address], [place], [address], 01/01/2025 13:38:09 01/11/2025 non-stress test completed [email or web address] [place] [address], [place], [address], 01/11/2025 11:07:08 01/11/2025 US, obstetric, follow-up completed [email or web address] [place] [address], [place], [address], 01/11/2025 17:20:12 01/11/2025 US, obstetric, biophysical profile + non-stress test completed [email or web address] [place] [address], [place], [address], 01/11/2025 17:20:21 01/11/2025 US, obstetric, follow-up completed [address], [place], [address], 01/11/2025 22:14:29 01/18/2025 US, obstetric, biophysical profile + non-stress test completed [email or web address] [place] [address], [place], [address], 01/18/2025 18:13:15 01/18/2025 US, obstetric, biophysical profile + non-stress test completed [email or web address] [address], [place], [address], 01/18/2025 14:29:09 01/18/2025 non-stress test completed [place] [address], [place], [address], 01/18/2025 14:40:38 01/23/2025 non-stress test completed [address], [address], 01/26/2025 15:08:47 01/23/2025 non-stress test completed [address], [address], 01/26/2025 15:08:13 Procedure Notes None recorded. Medical [...] 5 172.72 cm 28.3 kg/m2 89 % 94212.1 8 g 125 mm[Hg] 83 mm[Hg] Julieta Goddard [facility] 5 11:57:34 Date Recorded Body height Body mass index (BMI) Body mass index (BMI) Percentile per age and sex Body weight Systolic blood pressure Diastolic blood pressure Provider Name and Address Organization Details Last Updated DateTime 5 172.72 cm 28.3 kg/m2 89 % 09202.1 8 g 116 mm[Hg] 77 mm[Hg] DONI Larsen [facility] 5 14:30:57 Social History Question Answer [...] Or The Highest Degree You Have Received? MR36849-5 Information not available 12/15/2024 What Is Your Occupation? Na [email or web address] Information not available 12/30/2024 Are There Any [...] Anxious, Or Unable To Sleep At Night)? [id number] Information not available 12/15/2024 Do You Use Any Illicit Or Recreational Drugs? No Information not available 12/15/2024 Do You Use Sunscreen Routinely? Yes [email or web address] Information not available 12/30/2024 Have You Used [...] available 2024 13:12:28 Medical History Condition Response Allergies (Food, seasonal, environmental ) N Other Y Breast Cancer N Drug/Latex Allergies/Reactions N Blood Transfusion N Dermatologic Disorders N Lung Disease N Defects or Inherited Disease Y Breast Problem N Gestational Diabetes Y Hematologic disorders N Anesthesia Complications N History of STI Y Deep Vein Thrombosis N Polycystic ovary syndrome N Anxiety Disorder N Autoimmune disease N Arthritis N Infertility N Polyps N Acid Reflux (GERD) N History of abnormal pap N Cancer N Stroke N Varicosities N Neurologic/Epilepsy N Endometriosis N High Cholesterol N Headaches N Fibromyalgia N Kidney Disease N Heart Problems N Kidney or Bladder Problems N Thyroid Problems N GI Problems N Eating Disorder N Anemia N Art (IVF or FET) N Psychiatric Illness N Ovarian Cancer N Diabetes Y Pulmonary (TB, Asthma) N Hepatitis/Liver Disease N No Past Medical History Y Eczema N Urinary Tract Infection N Abuse/Domestic Violence N Asthma N Trauma/Violence N Depression/ depression N Pre-Eclampsia N Hypertension N Osteoporosis N Thrombophilias N Gynecological History Statement/Question Response Date of LMP 05/03/2024 On BCP's at Conception? N N Was last menstrual period normal Y STIs/STDs Y HPV Vaccine N Duration of Flow (days) 4 Current Control Method Date of control 2004 Are cycles usually normal Y Frequency of Cycle (Q days) 4 Sexually Active? Y Menses Monthly Y Age of first menstrual cycle 10 Date of Last Pap Smear Sexual Problems? N Desired Control Method None LMP Approximate N Obstetrics History GPAL:G 1 P 1 0 0 1 Type Value Full Term 1 Living 1 Total 1 Past Encounters Encounter ID Performer Location Encounter Start Date Encounter Closed Date Diagnosis/Indication Diagnosis SNOMED-CT Code Diagnosis ICD10 Code Diagnosis Note [id number] Carmen He [place] [address] [address] 12/15/2024 11:23:34 12/15/2024 12:36:18 Gestational diabetes mellitus 73491862 O24.410 Z3A.32 [id number] Tod Briggs MD [place] [address],[place] [address] 12/15/2024 11:26:10 12/15/2024 13:53:08 Routine care 105976839 Z34.03 [id number] TRINI RODRIGUEZ MD [place] [address],[place] [address] 12/30/2024 17:03:09 12/31/2024 10:05:53 Gestational diabetes mellitus 53733303 O24.410 Z3A.32 - A1- good glycemic control History of cytomegalovirus infection 4998068630 65792657 Z86.19 - positive antibodies - records requested from [facility]- twice weekly testing per [facility] Klinefelte r's syndrome, XXY 735213842 Q98.0 - high risk on NIPT- declined amniocente sis- plan for cord blood at deliveryfo r confirmato ry testing Large for gestation age fetus 737867920 O36.63X0 - 94% at 11/2024 [facility] scan Gestation period, 34 weeks 65854674 Z3A.34 - all outside scans and labs reviewed today- continue PNV RhD negative 701413694 Z 0183 - B neg blood type- patient reports she has not received Rhogam injection yet- labs sent today for Rhogam eval [id number] Julieta Goddard [place] [address],[place] [address] 01/11/2025 10:19:23 01/11/2025 11:08:16 Gestational diabetes mellitus 28974846 O24.410 Z3A.32 - A1- good glycemic control [id number] Carmen [facility] [address],[place] [address] 01/11/2025 10:20:01 01/11/2025 12:06:23 Gestational diabetes mellitus 76786088 O24.410 O36.63X0 Z3A.36 [id number] TRINI RODRIGUEZ MD [place] [address] [address] 01/11/2025 10:20:16 01/11/2025 12:33:12 Gestational diabetes mellitus 72513077 O24.410 O36.63X0 Z3A.36 - A1- good glycemic control Klinefelte r's syndrome, XXY 593040675 Q98.0 - high risk on NIPT- declined amniocente sis- plan for cord blood at delivery for confirmato ry testing Large for gestation age fetus 104411753 O36.63X0 - 94% at 11/2024 [facility] scan- 88% at 01/11/25 (36 week) US History of cytomegalovirus infection 4636114292 37997096 Z86.19 - positive antibodies , drawn due to echogenic bowel which resolved- weekly testing per [facility] Gestation period, 36 weeks 89292276 Z3A.36 - continue PNV- GBS collected today [id number] Carmen He [place] [address],[place] [address] 01/18/2025 13:29:19 01/18/2025 14:02:39 Gestational diabetes mellitus 85419205 O24.410 Z3A.37 [id number] Julieta Nitza [place] [address],[place] [address] 01/18/2025 13:29:38 01/18/2025 14:42:35 Gestational diabetes mellitus 20380995 O24.410 O36.63X0 Z3A.36 - A1- good glycemic control [id number] TRINI RODRIGUEZ MD [place] [address],[place] [address] 01/18/2025 13:29:48 01/18/2025 14:58:44 Klinefelter's syndrome, XXY 394190099 Q98.0 - high risk on NIPT- declined amniocente sis- plan for cord blood at delivery for confirmato ry testing Gestationa l diabetes mellitus 42689796 O24.410 - A1- good glycemic control Gestation period, 37 weeks 79847876 Z3A.37 - continue PNV [facility] reptococcus carrier 6151918455 103 Z22.330 - plan for antibiotic s during labor Health Concerns Section Related Observation LastModified by Organization Detai ls LastModified Time None Recorded Concern Status LastModified by Organization Details LastModified Time None Recorded Advance Directives Directive N: Payers Encounter Date Sequence Insurance Name Policy Number Policy Rivers Covered Member ID Rivers Member ID Guarantor Name 01/11/2025 1 [facility] (MEDICAID HMO) [id number] Lani Ho [id number] Lani E Vic 01/11/2025 1 [facility] (MEDICAID HMO) [id number] Lani Ho [id number] Lani E Vic 01/18/2025 1 [facility] (MEDICAID HMO) [id number] Lani Ho [id number] Lani E Vic 01/18/2025 1 [facility] (MEDICAID HMO) [id number] 0003 Lani Ho [id number] Lani E Vic 01/18/2025 1 [facility] (MEDICAID HMO) [id number] 0003 Lani Ho [id number] Lani E Vic OBGyn Episode Ob Episode Information Episode Created Date Number of Fetuses Patient Bloodtype Patient rh Status Prepregnancy Weight lbs Domestic Partner Domestic Partner Phone Father Name Design Intern Status 12/15/19 25 1 CLOSED Fetus Data First Name Last Name Admitted to NICU Weight (g) Sex Living Outcome Pediatric Complications Fetus ID Race Codes Race Delivery Type 3628.73 6 M true Full Term [id number] Vaginal Delivery Problems Problem Notes GBS + Problem Name Start Date End Date Resolution Snomed Code Not e Large for gestation age fetus 341928019 94% at 11/2024 S MFM US Gestational diabetes mellitus 97558760 Cytomegalovirus antibody screening 242105224 Positive per [facility]; echogenic bowel on 3T US, resolved on later scan; twice weekly testing per [facility] Klinefelter's syndrome, XXY 457290783 High risk on NI PT; declined amniocentesis; [...] Weight in lbs Pre/Post Dialysis Refused Weight 182.506082994553 BP Diastolic BP Location Tested BP Systolic [...] Type Weight in lbs Pre/Post Dialysis Refused 186.377968317383 BP Diastolic BP Location Tested BP Systolic BP Type 83 L arm 127 sitting Fetus Heart Rate Present A 145 Fetus Movement A Yes Comments Good movement. No cram ping or bleeding. Transfer from [facility] at 32 weeks; has been complicated by GDMA1; good glycemic control per patient. Checking fasting and 2h PP sugars. Discussed risks of GDM including increased risk of c section, shoulder dystocia and hypoglycemia. Discussed importance of good glycemic control. Patient has also been followed by [facility] for suspected Kleinfelter's syndrome, high risk on NIPT however declined amniocentesis. Will send cord blood at delivery to confirm. On review of MFM records, patient had +CMV antibodies. Will request further records regarding CMV. Per patient, [facility] recommends twice weekly testing. Most [...] Weight in lbs Pre/Post Dialysis Refused Weight 186.302844838411 BP Diastolic BP Location Tested BP Systolic BP Type 83 L arm 125 sitting Fetus Heart Rate Present A 140 Fetus Movement A Yes Comments Patient c/o back pains and p elvic pressure. Good movement. Glucose overall wnl, no consistently abnormal readings. Received rhogam. BPP 10, EFW 88% (previously 94%). GBS collected today. SVE 0.5cm. Discussed MIL for GDM between 02x1-45o1k. Patient to discuss with partner and will [...] Weight in lbs Pre/Post Dialysis Refused Weight 186.669978818897 BP Diastolic BP Location Tested BP Systolic [...] Post Complications Tubal Sterilization Discharge Date Comments sheila 37.5 15.2 Panda covid in / +CMV /XXY on NIPT increase risk Klinefelt ers syndrome/ GDM/ +GBS Discharge Information Feeding Method Contraceptive Method Maternal HG B and HCT Levels
--- OUTSIDE RECORDS SUMMARY | 2025-02-04 06:22 | XMS_ITS ---
Author Organization Unknown Address [address] [place] [phone] Phone Care Team Providers Care Director Of Group Counseling Program Name Role Phone Blanco Gallego Attending Unavailable [...] em Smoking History Never smoker (Never Smoked) 273586373 SNOMED CT Sex Female Sexual Orientation Straight or Heterosexual 32777646 SNOMED CT Gender Identity Female [id number] [address] Medications Medication Start Date End Date Route Frequency Dose Code Code System Medication Instructions Home Meds ZyrTEC Allergy 10MG Oral Capsule, Liquid Filled 03/12/2023 Unknown By Mouth Daily 1 CAPSULE 7947763 RxNorm 1 CAPSULE By Mouth Daily Fluticasone 0.05MG/1Actuatio n Nasal [place] 03/12/2023 Unknown Nasal Daily 1 Sprays 5531101 RxNorm 1 Spra ys Nasal Daily Azithromycin 500MG Oral Tablet 06/04/2024 Unknown By Mouth x1 NOW 2 TABLET 902048 RxNorm 2 TABLET By Mouth x1 NOW [...] Status Code Code System SEASONAL ALLERGY active 898644081 SNO MED-CT FAMILY PLANNING 06/20/2020 active 098963376 SNO MED-CT BITE OF INSECT active 908728670 SNOME D-CT ES OF VAGINA 08/07/2022 active 61774902 S NOMED-CT MENORRHAGIA active 870534463 SNOMED-C T PAINFUL NECK active 59668229 SNOMED- CT ADHD OF CHILDHOOD 07/22/2019 resolved 847430444 S NOMED-CT SEASONAL NASAL ALLERGY 07/22/2019 resolved 346035 001 SNOMED-CT HISTORY OF CHICKENPOX 07/22/2019 resolved 2929468 08 SNOMED-CT Allergies and Adverse Reactions Allergy Substance Reaction Severity Start Date Concern Status Co de Code System Active seasonal allergies Active No Known Drug Allergies Active 510679503 SNOMED-CT No Known Drug Allergies Active 350066545 SNOMED-CT Plan of Treatment Description Due Date Details Instructions DEPRESSION SCREENING DUE 06/20/2021 Personal Care Team Section Performer Name Performer Role Active Date Inactive Da xena
--- OUTSIDE RECORDS SUMMARY | 2025-02-04 06:22 | XMS_ITS ---
Author Organization Unknown Address [address] [place] [address] [phone] Phone Care Team Providers Care Dip Dyer Name Role Phone ATIYA Lezama MD Attending [...] em Smoking History Never smoker (Never Smoked) [id number] SNOMED CT Sex Female Sexual Orientation Straight or Heterosexual 27534635 SNOMED CT Gender Identity Female [id number] [address] Medications Medication Start Date End Date Route Frequency Dose Code Code System Medication Instructions Home Meds ZyrTEC Allergy 10MG Oral Capsule, Liquid Filled 03/12/2023 Unknown By Mouth Daily 1 CAPSULE 8835270 RxNorm 1 CAPSULE By Mouth Daily Fluticasone 0.05MG/1Actuatio n Nasal [place] 03/12/2023 Unknown Nasal Daily 1 Sprays 8238993 RxNorm 1 Spra ys Nasal Daily Azithromycin 500MG Oral Tablet 06/04/2024 Unknown By Mouth x1 NOW 2 TABLET 137142 RxNorm 2 TABLET By Mouth x1 NOW [...] Status Code Code System SEASONAL ALLERGY active 187739032 SNO MED-CT FAMILY PLANNING 06/20/2020 active 797150803 SNO MED-CT BITE OF INSECT active 365618197 SNOME D-CT ES OF VAGINA 08/07/2022 active 60478461 S NOMED-CT MENORRHAGIA active 798143667 SNOMED-C T PAINFUL NECK active 78255100 SNOMED- CT ADHD OF CHILDHOOD 07/22/2019 resolved 961468887 S NOMED-CT SEASONAL NASAL ALLERGY 07/22/2019 resolved 664600 001 SNOMED-CT HISTORY OF [place]X 07/22/2019 resolved 3565032 08 SNOMED-CT Allergies and Adverse Reactions Allergy Substance Reaction Severity Start Date Concern Status Co de Code System Active seasonal allergies Active No Known Drug Allergies Active 698436936 SNOMED-CT No Known Drug Allergies Active 338174926 SNOMED-CT Plan of Treatment Description Due Date Details Instructions DEPRESSION SCREENING DUE 06/20/2021 Personal Care Team Section Performer Name Performer Role Active Date Inactive Da xena
--- OUTSIDE RECORDS SUMMARY | 2025-02-04 06:22 | XMS_ITS ---
Author Organization Unknown Address [address] [place] [address] [phone] Phone Care Team Providers Care Ehs Engineer Name Role Phone Blanco Gallego Attending [...] em Smoking History Never smoker (Never Smoked) 738328972 SNOMED CT Sex Female Sexual Orientation Straight or Heterosexual 13042454 SNOMED CT Gender Identity Female [id number] [address] Vital Signs Vital Sign Value Unit [place] Value [place] Unit Date/Time Recent/Initial? Code Code System Body Mass Index 23.87 kg/m2 12/25/2022 13:33 Initial 88563 -5 [facility] Body Mass Index Percentile 74 % 12/25/2022 13:33 Initial 51084 -9 [facility] Systolic Blood Pressure 106 mm[Hg] 12/25/2022 13:33 Initial 8480- 6 [facility] Diastolic Blood Pressure 72 mm[Hg] 12/25/2022 13:33 Initial 8462- 4 [facility] Body Surface Area 1.85 m2 12/25/2022 13:33 Initial 3140- 1 [facility] Height 172.720 0 cm 68.00 in 12/25/2022 13:33 Initial 8302- 2 [facility] O2 Saturation 100 % 2022 13:33 Initial 37187 -5 [facility] Pulse 82.0 /min 12/25/2022 13:33 Initial 8867- 4 [facility] Respiration 16 /min 12/25/19 13:33 Initial 9279- 1 [facility] Temperature 37.0 Antonella 98.6 F 12/25/19 13:33 Initial 8310- 5 [facility] Weight 71.21 kg 157.00 lbs 12/25/2022 13:33 Initial 95072 -7 [facility] Medications Medication Start Date End Date Route Frequency Dose Code Code System Medication Instructions Home Meds Radha 28 3MG-0.02MG Oral Tablet 09/12/2022 12/25/2022 By Mouth Once a day 1 TABLET RxNorm 1 TABLET By Mouth Once a day Medrol Dosepak 4MG Oral Tablet 12/25/2022 02/20/2023 By Mouth As Directed 1 PACK 720599 RxNorm 1 PACK By Mouth As Directed Methocarbamol 750MG Oral Tablet 12/25/2022 03/12/2023 By Mouth As needed every 8 hr 741522 RxNorm 1-2 TABLET By Mouth As needed every 8 hr [place]-28 30 MCG-0.15 MG; NA Oral Tablet 12/25/2022 03/12/2023 By Mouth Daily 1 TABLET 884489 RxNorm 1 TABLET By Mouth Daily Macrobid 100MG Oral Capsule 02/20/2023 03/12/2023 By mouth Twice a day 1 TABLET 264935 RxNorm 1 TABLET By mouth Twice a day X 7 DAYS Pyridium 100MG Oral Tablet 02/20/2023 03/12/2023 By mouth As needed every 8 hr 1 TABLET 4645874 RxNorm 1 TABLET By mouth As needed every 8 hr for urinary pain ZyrTEC Allergy 10MG Oral Capsule, Liquid Filled 03/12/2023 Unknown By Mouth Daily 1 CAPSULE 9314668 RxNorm 1 CAPSULE By Mouth Daily Fluticasone 0.05MG/1Actuati on Nasal [place] 03/12/2023 Unknown Nasal Daily 1 Sprays 9447206 RxNorm 1 Spr ays Nasal Daily Azithromycin 500MG Oral Tablet 06/04/2024 Unknown By Mouth x1 NOW 2 TABLET 680468 RxNorm 2 TABLET By Mouth x1 NOW Assessment You had the following problems:SEASONAL ALLERGYFAMILY PLANNINGBITE OF INSECTCANDIDA OF VAGINAMENORRHAGIAPAINFUL NECK Assessment/Plan: 1. Left upper back pain - Start steroids and muscle relaxer. Patient denies need for school note. 2. Contraceptive management - Patient requesting to restart [place], will restart at this time Return to clinic [facility] Discharge Instructions Should you have any questions prior to discharge, please contact a member of your healthcare team. If you have left the hospital and have any questions, please contact your primary care physician. Reason For Referral No Data Found Problems Problem Start Date Resolved Date Status Code Code System SEASONAL ALLERGY active 344290418 SNO MED-CT FAMILY PLANNING 06/20/2020 active 629423588 SNO MED-CT BITE OF INSECT active 650898284 SNOME D-CT ES OF VAGINA 08/07/2022 active 99867558 S NOMED-CT MENORRHAGIA active 944944451 SNOMED-C T PAINFUL NECK active 62510818 SNOMED- CT ADHD OF CHILDHOOD 07/22/2019 resolved 645502597 S NOMED-CT SEASONAL NASAL ALLERGY 07/22/2019 resolved 328400 001 SNOMED-CT HISTORY OF [place]POX 07/22/2019 resolved 0014706 08 SNOMED-CT Allergies and Adverse Reactions Allergy Substance Reaction Severity Start Date Concern Status Co de Code System Active seasonal allergies Active No Known Drug Allergies Active 301694546 SNOMED-CT No Known Drug Allergies Active 713414929 SNOMED-CT Plan of Treatment Description Due Date Details Instructions DEPRESSION SCREENING DUE 06/20/2021 Encounters Encounter Diagnosis Start Date Code Code Sys tem Pain in thoracic spine 12/25/2022 438410087 SNOME D-CT Personal Care Team Section Performer Name Performer Role Active Date Inactive Da te Progress Notes [facility] 12/25/2022 13:54 Admission Date/Time: 12/25/2022 13:07 [facility] Clinic Visit Note Chief Complaint: [facility] F/U UPPER BACK PAIN/BY NECK SWOLLEN [...] is an 17 yo female presents to [facility] today for [facility] follow up neck and back pain. Pt states she went to [facility] on 12-18-22 with neck and upper back pain. States it just started hurting her while at work, denies injury to the areas. 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 States she has been taking warm [...] Contraceptive management - Patient requesting to restart [place], will restart at this time Return to [...] records Referring and communicating with other health family member caretaker x Obtaining and/or reviewing separately obtained history Independent interpretation of results and communicating results to the patient/family/caregiver x Performing a medically appropriate examination/evaluation Care coordination (not reported separately) Ordered & Completed Meds Table: No Current Medications Available Discharge Med List: Discharge Medications: No Discharge Medications Available
--- OUTSIDE RECORDS SUMMARY | 2025-02-04 06:22 | XMS_ITS ---
Author Organization Unknown Address [address] [place] [address] [phone] Phone Care Team Providers Care Correctional Maintenance Technician Name Role Phone ATIYA Lezama MD Attending [...] em Smoking History Never smoker (Never Smoked) 059714543 SNOMED CT Sex Female Sexual Orientation Straight or Heterosexual 89777947 SNOMED CT Gender Identity Female [id number] [address] Medications Medication Start Date End Date Route Frequency Dose Code Code System Medication Instructions Home Meds Radha 28 3MG-0.02MG Oral Tablet 09/12/2022 12/25/2022 By Mouth Once a day 1 TABLET RxNorm 1 TABLET By Mouth Once a day Medrol Dosepak 4MG Oral Tablet 12/25/2022 02/20/2023 By Mouth As Directed 1 PACK 229692 RxNorm 1 PACK By Mouth As Directed Methocarbamol 750MG Oral Tablet 12/25/2022 03/12/2023 By Mouth As needed every 8 hr 422881 RxNorm 1-2 TABLET By Mouth As needed every 8 hr [place]-28 30 MCG-0.15 MG; NA Oral Tablet 12/25/2022 03/12/2023 By Mouth Daily 1 TABLET 720320 RxNorm 1 TABLET By Mouth Daily Macrobid 100MG Oral Capsule 02/20/2023 03/12/2023 By mouth Twice a day 1 TABLET 341086 RxNorm 1 TABLET By mouth Twice a day X 7 DAYS Pyridium 100MG Oral Tablet 02/20/2023 03/12/2023 By mouth As needed every 8 hr 1 TABLET 0254761 RxNorm 1 TABLET By mouth As needed every 8 hr for urinary pain ZyrTEC Allergy 10MG Oral Capsule, Liquid Filled 03/12/2023 Unknown By Mouth Daily 1 CAPSULE 2828094 RxNorm 1 CAPSULE By Mouth Daily Fluticasone 0.05MG/1Actuati on Nasal [place] 03/12/2023 Unknown Nasal Daily 1 Sprays 4489259 RxNorm 1 Spr ays Nasal Daily Azithromycin 500MG Oral Tablet 06/04/2024 Unknown By Mouth x1 NOW 2 TABLET 697105 RxNorm 2 TABLET By Mouth x1 NOW [...] Status Code Code System SEASONAL ALLERGY active 171728556 SNO MED-CT FAMILY PLANNING 06/20/2020 active 447682786 SNO MED-CT BITE OF INSECT active 235658783 SNOME D-CT ES OF VAGINA 08/07/2022 active 77736914 S NOMED-CT MENORRHAGIA active 282836018 SNOMED-C T PAINFUL NECK active 32167779 SNOMED- CT ADHD OF CHILDHOOD 07/22/2019 resolved 012949396 S NOMED-CT SEASONAL NASAL ALLERGY 07/22/2019 resolved 543590 001 SNOMED-CT HISTORY OF [place]EN[place] 07/22/2019 resolved 0432607 08 SNOMED-CT Allergies and Adverse Reactions Allergy Substance Reaction Severity Start Date Concern Status Co de Code System Active seasonal allergies Active No Known Drug Allergies Active 537600507 SNOMED-CT No Known Drug Allergies Active 315985562 SNOMED-CT Plan of Treatment Description Due Date Details Instructions DEPRESSION SCREENING DUE 06/20/2021 Personal Care Team Section Performer Name Performer Role Active Date Inactive David mccallum
--- OUTSIDE RECORDS SUMMARY | 2025-02-04 06:22 | XMS_ITS ---
Author Organization Unknown Address [address] [place] [address] [phone] Phone Care Team Providers Care Manager Search Name Role Phone TABATHA RODGERS Attending Unavailable [...] MICR O - Collect Date/Time: 07/31/2022 17:14 [facility] ID: [id number] [address] [place] [address], [phone] LOINC: Test Value Unit Reference Range Code [...] TEST - Colle ct Date/Time: 07/31/2022 17:12 [facility] ID: [id number] [address] [place] [address], [phone] LOINC: Test Value Unit Reference Range Code Code System Flag TEST PERFORMED URINE PREG (URINE) NEGATIVE LOT#: [id number] EXP DATE: 2023-10-10 QC: ACCEPTABLE Social History Type Status Start Date End Date Code Code Syst em Smoking History Never smoker (Never Smoked) 271251086 SNOMED CT Sex Female Sexual Orientation Straight or Heterosexual 80812551 SNOMED CT Gender Identity Female [id number] [address] Vital Signs Vital Sign Value Unit [place] Value [place] Unit Date/Time Recent/Initial? Code Code System Body Mass Index 23.34 kg/m2 07/31/2022 16:59 Initial 28486 -5 [facility] Body Mass Index Percentile 71 % 07/31/2022 16:59 Initial 52494 -9 [facility] Systolic Blood Pressure 120 mm[Hg] 07/31/2022 16:59 Initial 8480- 6 [facility] Diastolic Blood Pressure 80 mm[Hg] 07/31/2022 16:59 Initial 8462- [address] [facility] Body Surface Area 1.79 m2 07/31/2022 16:59 Initial 3140- 1 [facility] Height 170.180 0 cm 67.00 in 07/31/2022 16:59 Initial 8302- [address] [facility] O2 Saturation 98 % 2021 16:59 Initial 79187 -[address] [facility] Pulse 92.0 /min 07/31/2022 16:59 Initial 8867- [address] [facility] Temperature 36.8 Antonella 98.2 F 07/31/20 16:59 Initial 8310- [address] [facility] Weight 67.59 kg 149.00 lbs 07/31/2022 16:59 Initial 33965 -[address] [facility] Medications Medication Start Date End Date Route Frequency Dose Code Code System Medication Instructions Home Meds predniSONE 50MG Oral Tablet 06/07/2022 07/31/2022 By Mouth Daily 1 TABLET 304316 RxNorm 1 TABLET By Mouth Daily Anel-28 30MCG-0.15MG-NA Oral Tablet 06/07/2022 09/12/2022 By Mouth Daily 1 TABLET 405119 RxNorm 1 TABLET By Mouth Daily Diflucan [...] 02/20/2023 By Mouth As Directed 1 PACK 316986 RxNorm 1 PACK By Mouth As Directed Methocarbamol 750MG Oral Tablet 12/25/2022 03/12/2023 By Mouth As needed every 8 hr 866105 RxNorm 1-2 TABLET By Mouth As needed every 8 hr [place]-28 30 MCG-0.15 MG; NA Oral Tablet 12/25/2022 03/12/2023 By Mouth Daily 1 TABLET 343302 RxNorm 1 TABLET By Mouth Daily Macrobid 100MG Oral Capsule 02/20/2023 03/12/2023 By mouth Twice a day 1 TABLET 150698 RxNorm 1 TABLET By mouth Twice a day X 7 DAYS Pyridium 100MG Oral Tablet 02/20/2023 03/12/2023 By mouth As needed every 8 hr 1 TABLET 7946456 RxNorm 1 TABLET By mouth As needed every 8 hr for urinary pain ZyrTEC Allergy 10MG Oral Capsule, Liquid Filled 03/12/2023 Unknown By Mouth Daily 1 CAPSULE 6183779 RxNorm 1 CAPSULE By Mouth Daily Fluticasone 0.05MG/1Actuati on Nasal [place] 03/12/2023 Unknown Nasal Daily 1 Sprays 7822706 RxNorm 1 Spr ays Nasal Daily Azithromycin 500MG Oral Tablet 06/04/2024 Unknown By Mouth x1 NOW 2 TABLET 642264 RxNorm 2 TABLET By Mouth x1 NOW [...] Status Code Code System SEASONAL ALLERGY active 998852227 SNO MED-CT FAMILY PLANNING 06/20/2020 active 429967805 SNO MED-CT BITE OF INSECT active 448719358 SNOME D-CT ES OF VAGINA 08/07/2022 active 99806815 S NOMED-CT MENORRHAGIA active 958807416 SNOMED-C T PAINFUL [place]EC[place] active 21187467 SNOMED- CT ADHD OF CHILDHOOD 07/22/2019 resolved 427572106 S NOMED-CT SEASONAL NASAL ALLERGY 07/22/2019 resolved 337268 001 SNOMED-CT HISTORY OF [place] 07/22/2019 resolved 0949438 08 SNOMED-CT Allergies and Adverse Reactions Allergy Substance Reaction Severity Start Date Concern Status Co de Code System Active seasonal allergies Active No Known Drug Allergies Active 112592480 SNOMED-CT No Known Drug Allergies Active 156980470 SNOMED-CT Plan of Treatment Description Due Date Details Instructions DEPRESSION SCREENING DUE 06/20/2021 Future Order Description Future Order Date Futu re Order Loinc: BACTERIAL VAGINOSIS RAPID TEST 07/31/2022 LOINC: 6410-5 CULTURE YEAST, WITH IDENTIFICATION 07/31/2022 LOINC: 77211-2 TRICHOMONAS VAGINALIS FEMALE RNA QUAL 2 LOINC: 91075-3 CHLAMYDIA/GC URINE RNA, TMA APTIMA 07/31/2022 LOINC: 5048-4 CULTURE URINE 07/31/2022 LOINC: 630-4 Encounters Encounter Diagnosis Start Date Code Code Sys tem Acute vaginitis 07/31/2022 85119039 SNOMED-CT Personal Care Team Section Performer Name Performer Role Active Date Inactive Da te Progress Notes [facility] 07/31/2022 18:10 Admission Date/Time: 07/31/2022 16:21 [...] NEGATIVE 07/31/2022 17:10 07/31/2022 17:12 final LOT#: [id number] 07/31/2022 17:10 07/31/2022 17:12 final EXP DATE: [...]
--- OUTSIDE RECORDS SUMMARY | 2025-02-04 06:23 | XMS_ITS ---
Author Organization Unknown Address [address] [place] [address] [phone] Phone Care Team Providers Care Support Assistant Name Role Phone ATIYA Lezama MD [...] em Smoking History Never smoker (Never Smoked) 485771204 SNOMED CT Sex Female Sexual Orientation Straight or Heterosexual 64983987 SNOMED CT Gender Identity Female [id number] [address] Vital Signs Vital Sign Value Unit [place] Value [place] Unit Date/Time Recent/Initial? Code Code System Body Mass Index 22.93 kg/m2 09/12/2022 17:59 Initial 14797 -5 [facility] Body Mass Index Percentile 67 % 09/12/2022 17:59 Initial 81303 -9 [facility] Systolic Blood Pressure 100 mm[Hg] 09/12/2022 17:59 Initial 8480- 6 [facility] Diastolic Blood Pressure 70 mm[Hg] 09/12/2022 17:59 Initial 8462- 4 [facility] Body Surface Area 1.81 m2 09/12/2022 17:59 Initial 3140- 1 [facility] Height 172.720 0 cm 68.00 in 09/12/2022 17:59 Initial 8302- 2 [facility] O2 Saturation 99 % 2021 17:59 Initial 22801 -5 [facility] Pulse 95.0 /min 09/12/2022 17:59 Initial 8867- 4 [facility] Respiration 18 /min 09/12/20 17:59 Initial 9279- 1 [facility] Temperature 36.9 Antonella 98.4 F 09/12/20 17:59 Initial 8310- 5 [facility] Weight 68.40 kg 150.80 lbs 09/12/2022 17:59 Initial 23716 -7 [facility] Medications Medication Start Date End Date Route Frequency Dose Code Code System Medication Instructions Home Meds Anel-28 30MCG-0.15MG-NA Oral Tablet 06/07/2022 09/12/2022 By Mouth Daily 1 TABLET 604519 RxNorm 1 TABLET By Mouth Daily Diflucan 150MG Oral Tablet 08/07/2022 09/12/2022 By Mouth x1 NOW 1 TABLET 659129 RxNorm 1 TABLET By Mouth x1 NOW FOR MARCH REPEAT IN 72 HOURS Radha 28 3MG-0.02MG Oral Tablet 09/12/2022 12/25/2022 By Mouth Once a day 1 TABLET RxNorm 1 TABLET By Mouth Once a day Medrol Dosepak 4MG Oral Tablet 12/25/2022 02/20/2023 By Mouth As Directed 1 PACK 608852 RxNorm 1 PACK By Mouth As Directed Methocarbamol 750MG Oral Tablet 12/25/2022 03/12/2023 By Mouth As needed every 8 hr 749988 RxNorm 1-2 TABLET By Mouth As needed every 8 hr [place]-28 30 MCG-0.15 MG; NA Oral Tablet 12/25/2022 03/12/2023 By Mouth Daily 1 TABLET 842991 RxNorm 1 TABLET By Mouth Daily Macrobid 100MG Oral Capsule 02/20/2023 03/12/2023 By mouth Twice a day 1 TABLET 854684 RxNorm 1 TABLET By mouth Twice a day X 7 DAYS Pyridium 100MG Oral Tablet 02/20/2023 03/12/2023 By mouth As needed every 8 hr 1 TABLET 8582627 RxNorm 1 TABLET By mouth As needed every 8 hr for urinary pain ZyrTEC Allergy 10MG Oral Capsule, Liquid Filled 03/12/2023 Unknown By Mouth Daily 1 CAPSULE 8091288 RxNorm 1 CAPSULE By Mouth Daily Fluticasone 0.05MG/1Actuatio n Nasal [place] 03/12/2023 Unknown Nasal Daily 1 Sprays 6862932 RxNorm 1 Spra ys Nasal Daily Azithromycin 500MG Oral Tablet 06/04/2024 Unknown By Mouth x1 NOW 2 TABLET 942854 RxNorm 2 TABLET By Mouth x1 NOW Assessment You had the following problems:SEASONAL ALLERGYFAMILY PLANNINGBITE OF INSECTCANDIDA OF VAGINAMENORRHAGIAPAINFUL NECK Assessment/Plan: 1) Menorrhagia: Will check TSH, T4, CBC, PT/INR, and CMP. Will discontinue the Anel and start her on Radha 1 tablet daily. 2) Contraceptive management: Patient is currently on [place] but this is not managing her periods [...] Status Code Code System SEASONAL ALLERGY active 118068278 SNO MED-CT FAMILY PLANNING 06/20/2020 active 598308101 SNO MED-CT BITE OF INSECT active 677061082 SNOME D-CT ES OF VAGINA 08/07/2022 active 89641210 S NOMED-CT MENORRHAGIA active 764145164 SNOMED-C T PAINFUL NECK active 10241216 SNOMED- CT ADHD OF CHILDHOOD 07/22/2019 resolved 591402331 S NOMED-CT SEASONAL NASAL ALLERGY 07/22/2019 resolved 584175 001 SNOMED-CT HISTORY OF [place] 07/22/2019 resolved 5548847 08 SNOMED-CT Allergies and Adverse Reactions Allergy Substance Reaction Severity Start Date Concern Status Co de Code System Active seasonal allergies Active No Known Drug Allergies Active 370379341 SNOMED-CT No Known Drug Allergies Active 285437132 SNOMED-CT Plan of Treatment Description Due Date Details Instructions DEPRESSION SCREENING DUE 06/20/2021 Future Order Description Future Order Date Futu re Order Loinc: TSH 09/12/2022 LOINC: 33673-3 FREE T4 09/12/2022 LOINC: 3024-7 CBC W DIFF 09/12/2022 LOINC: 10906-7 COMPREHENSIVE METABOLIC PANEL 09/12/2022 L OINC: 58914-5 PT (PROTIME) 09/12/2022 LOINC: 6301-6 Encounters Encounter Diagnosis Start Date Code Code Sys tem Excessive and frequent menstruation 09/12/2022 82717 1003 SNOMED-CT Personal Care Team Section Performer Name Performer Role Active Date Inactive Da te Progress Notes [facility] 09/13/2022 09:49 Admission Date/Time: 09/12/2022 13:21 Rachael Andersen MD Clinic Visit Note Chief Complaint: DISCUSS BC Has the patient received a COVID Vaccine? Yes Nurse Note: this nurse note is documented by Opal Ly CMA 17 yr old female present to [facility] today to discuss BC History of Present Illness: An 17-year-old presents to [facility] today to discuss BC. Patient [...] CBC, PT/INR, and CMP. Will discontinue the [place] and start her on Radha 1 tablet daily. 2) Contraceptive management: Patient is currently on [place] but this is not managing her periods [...] and communicating with other health critical care paramedic Obtaining and/or reviewing separately obtained history [...]
--- OUTSIDE RECORDS SUMMARY | 2025-02-04 06:23 | XMS_ITS ---
Author Organization Unknown Address [address] [place] [phone] Phone Care Team Providers Care Paediatric Physiotherapist Name Role Phone ABBY AGUIRRE Attending Unavailable [...] em Smoking History Never smoker (Never Smoked) 515937292 SNOMED CT Sex Female Sexual Orientation Straight or Heterosexual 45297980 SNOMED CT Gender Identity Female [id number] [address] Vital Signs Vital Sign Value Unit [place] Value [place] Unit Date/Time Recent/Initial? Code Code System Body Mass Index 26.21 kg/m2 05/06/2023 12:01 Initial 80252 -5 [facility] Body Mass Index Percentile 85 % 05/06/2023 12:01 Initial 38143 -9 [facility] Systolic Blood Pressure 118 mm[Hg] 05/06/2023 12:01 Initial 8480- 6 [facility] Diastolic Blood Pressure 74 mm[Hg] 05/06/2023 12:01 Initial 8462- 4 [facility] Body Surface Area 3.35 m2 05/06/2023 12:01 Initial 3140- 1 [facility] Height 248.920 0 cm 98.00 in 05/06/2023 12:01 Initial 8302- 2 [facility] O2 Saturation 98 % 2022 12:01 Initial 16057 -5 [facility] Pulse 78.0 /min 05/06/2023 12:01 Initial 8867- 4 [facility] Temperature 36.4 Antonella 97.5 F 05/06/20 12:01 Initial 8310- 5 [facility] Weight 162.40 kg 358.03 lbs 05/06/2023 12:01 Initial 27070 -7 [facility] Medications Medication Start Date End Date Route Frequency Dose Code Code System Medication Instructions Home Meds ZyrTEC Allergy 10MG Oral Capsule, Liquid Filled 03/12/2023 Unknown By Mouth Daily 1 CAPSULE 8903558 RxNorm 1 CAPSULE By Mouth Daily Fluticasone 0.05MG/1Actuatio n Nasal [place] 03/12/2023 Unknown Nasal Daily 1 Sprays 3208510 RxNorm 1 Spra ys Nasal Daily Azithromycin 500MG Oral Tablet 06/04/2024 Unknown By Mouth x1 NOW 2 TABLET 990963 RxNorm 2 TABLET By Mouth x1 NOW [...] Status Code Code System SEASONAL ALLERGY active 732053112 [facility] MED-CT FAMILY PLANNING 06/20/2020 active 233508546 SNO MED-CT BITE OF INSECT active 246542497 SNOME D-CT ES OF VAGINA 08/07/2022 active 32366448 S NOMED-CT MENORRHAGIA active 116962950 SNOMED-C T PAINFUL NECK active 59060690 SNOMED- CT ADHD OF CHILDHOOD 07/22/2019 resolved 530178922 S NOMED-CT SEASONAL NASAL ALLERGY 07/22/2019 resolved 788740 001 SNOMED-CT HISTORY OF [place] 07/22/2019 resolved 3188111 08 SNOMED-CT Allergies and Adverse Reactions Allergy Substance Reaction Severity Start Date Concern Status Co de Code System Active seasonal allergies Active No Known Drug Allergies Active 112788687 SNOMED-CT No Known Drug Allergies Active 465382920 SNOMED-CT Plan of Treatment Description Due Date Details Instructions DEPRESSION SCREENING DUE 06/20/2021 Encounters Encounter Diagnosis Start Date Code Code Sys tem Injury of head 05/06/2023 63852834 SNOMED-CT Personal Care Team Section Performer Name Performer Role Active Date Inactive Da te Progress Notes [facility] 05/06/2023 13:28 Date of Service: 05/06/2023 Convenient [...] Instructions Start Date Prescribing Fluticasone 0.05MG/1Actuation Nasal [place] 1 Sprays Nasal Daily 03/12/2023 Blanco Gallego ZyrTEC Allergy 10MG Oral Capsule, Liquid Filled 1 CAPSULE By Mouth Daily 03/12/2023 Blanco Gallego This examination was transcribed using the [employer] voice recognition system without human chinese herbalist. In an effort to expedite patient care, this report has not been adjusted for typographical, or medical or syntax by a trained medical detail representative.
--- OUTSIDE RECORDS SUMMARY | 2025-02-04 06:23 | XMS_ITS ---
Author Organization Unknown Address [address], [place] [phone] Phone Care Team Providers Care Sand Miller Name Role Phone DEON CONROY Attending Unavailable Results CYTOMEGALOVIRUS AB IGG - Col lect Date/Time: 10/22/2024 14:12 [facility] ID: [id number] [address] [place], [place], [address] LOINC: 5124-3 Test Value Unit Reference Range Code Code System Flag CYTOMEGALOVIRUS ANTIBODY(IGG) >10.00 H PARVOVIRUS B19 IGG & IGM - C ollect Date/Time: 10/22/2024 14:12 [facility] ID: [id number] [address], [place], [address] LOINC: 5273-8 Test Value Unit Reference Range Code Code System Flag PARVOVIRUS B19 ANTIBODY(IGG) 0.2 PARVOVIRUS B19 ANTIBODY(IGM) 0.2 Social History Type Status Start Date End Date Code Code Syst em Smoking History Never smoker (Never Smoked) 513311186 SNOMED CT Sex Female Sexual Orientation Straight or Heterosexual 53966496 SNOMED CT Gender Identity Female [id number] [address] Medications Medication Start Date End Date Route Frequency Dose Code Code System Medication Instructions Home Meds ZyrTEC Allergy 10MG Oral Capsule, Liquid Filled 03/12/2023 Unknown By Mouth Daily 1 CAPSULE 5545957 RxNorm 1 CAPSULE By Mouth Daily Fluticasone 0.05MG/1Actuatio n Nasal [place] 03/12/2023 Unknown Nasal Daily 1 Sprays 1046846 RxNorm 1 Spra ys Nasal Daily Azithromycin 500MG Oral Tablet 06/04/2024 Unknown By Mouth x1 NOW 2 TABLET 248064 RxNorm 2 TABLET By Mouth x1 NOW [...] Status Code Code System SEASONAL ALLERGY active 626088318 SNO MED-CT FAMILY PLANNING 06/20/2020 active 286478296 SNO MED-CT BITE OF INSECT active 777709179 SNOME D-CT ES OF VAGINA 08/07/2022 active 82127398 S NOMED-CT MENORRHAGIA active 002232878 SNOMED-C T PAINFUL NECK active 93135906 SNOMED- CT ADHD OF CHILDHOOD 07/22/2019 resolved 833685243 S NOMED-CT SEASONAL NASAL ALLERGY 07/22/2019 resolved 024902 001 SNOMED-CT HISTORY OF [place] 07/22/2019 resolved 5676727 08 SNOMED-CT Allergies and Adverse Reactions Allergy Substance Reaction Severity Start Date Concern Status Co de Code System Active seasonal allergies Active No Known Drug Allergies Active 272609150 SNOMED-CT No Known Drug Allergies Active 110584706 SNOMED-CT Plan of Treatment Description Due Date Details Instructions DEPRESSION SCREENING DUE 06/20/2021 Encounters Encounter Diagnosis Start Date Code Code Sys tem ultrasound scan abnormal 10/22/2024 875066 005 SNOMED-CT Personal Care Team Section Performer Name Performer Role Active Date Inactive Da xena
--- OUTSIDE RECORDS SUMMARY | 2025-02-04 06:24 | XMS_ITS ---
Author Organization Unknown Address [address] [place] [phone] Phone Care Team Providers Care Clothing Supervisor Name Role Phone Blanco Gallego Attending Unavailable [...] em Smoking History Never smoker (Never Smoked) 290458602 SNOMED CT Sex Female Sexual Orientation Straight or Heterosexual 84441264 SNOMED CT Gender Identity Female [id number] [address] Medications Medication Start Date End Date Route Frequency Dose Code Code System Medication Instructions Home Meds Medrol Dosepak 4MG Oral Tablet 12/25/2022 02/20/2023 By Mouth As Directed 1 PACK 670982 RxNorm 1 PACK By Mouth As Directed Methocarbamol 750MG Oral Tablet 12/25/2022 03/12/2023 By Mouth As needed every 8 hr 016288 RxNorm 1-2 TABLET By Mouth As needed every 8 hr [place]-28 30 MCG-0.15 MG; NA Oral Tablet 12/25/2022 03/12/2023 By Mouth Daily 1 TABLET 748197 RxNorm 1 TABLET By Mouth Daily Macrobid 100MG Oral Capsule 02/20/2023 03/12/2023 By mouth Twice a day 1 TABLET 233522 RxNorm 1 TABLET By mouth Twice a day X 7 DAYS Pyridium 100MG Oral Tablet 02/20/2023 03/12/2023 By mouth As needed every 8 hr 1 TABLET 2797205 RxNorm 1 TABLET By mouth As needed every 8 hr for urinary pain ZyrTEC Allergy 10MG Oral Capsule, Liquid Filled 03/12/2023 Unknown By Mouth Daily 1 CAPSULE 0655292 RxNorm 1 CAPSULE By Mouth Daily Fluticasone 0.05MG/1Actuati on Nasal [place] 03/12/2023 Unknown Nasal Daily 1 Sprays 3383815 RxNorm 1 Spr ays Nasal Daily Azithromycin 500MG Oral Tablet 06/04/2024 Unknown By Mouth x1 NOW 2 TABLET 384886 RxNorm 2 TABLET By Mouth x1 NOW [...] Status Code Code System SEASONAL ALLERGY active 996931024 SNO MED-CT FAMILY PLANNING 06/20/2020 active 181450101 SNO MED-CT BITE OF INSECT active 430109144 SNOME D-CT ES OF VAGINA 08/07/2022 active 49031842 S NOMED-CT MENORRHAGIA active 209005875 SNOMED-C T PAINFUL NECK active 21265562 SNOMED- CT ADHD OF CHILDHOOD 07/22/2019 resolved 083581730 S NOMED-CT SEASONAL NASAL ALLERGY 07/22/2019 resolved 270447 001 SNOMED-CT HISTORY OF [place] 07/22/2019 resolved 7436563 08 SNOMED-CT Allergies and Adverse Reactions Allergy Substance Reaction Severity Start Date Concern Status Co de Code System Active seasonal allergies Active No Known Drug Allergies Active 692863566 SNOMED-CT No Known Drug Allergies Active 253591216 SNOMED-CT Plan of Treatment Description Due Date Details Instructions DEPRESSION SCREENING DUE 06/20/2021 Personal Care Team Section Performer Name Performer Role Active Date Inactive David mccallum
--- OUTSIDE RECORDS SUMMARY | 2025-02-04 06:24 | XMS_ITS ---
Author Organization Unknown Address [address] [place] [phone] Phone Care Team Providers Care Temp Recruiter Name Role Phone VIRAL Brody Attending Unavailable [...] MICR O - Collect Date/Time: 06/03/2024 15:21 [facility] ID: [id number] [address] [place] [address], [id number] LOINC: Test Value Unit Reference Range Code [...] em Smoking History Never smoker (Never Smoked) 956916682 SNOMED CT Sex Female Sexual Orientation Straight or Heterosexual 83054918 SNOMED CT Gender Identity Female 81761388267043 [address] Vital Signs Vital Sign Value Unit [place] Value [place] Unit Date/Time Recent/Initial? Code Code System Body Mass Index 25.85 kg/m2 06/03/2024 14:31 Initial 93676 -5 [facility] Body Mass Index Percentile 82 % 06/03/2024 14:31 Initial 85683 -9 LOINC Systolic Blood Pressure 118 mm[Hg] [...] in 06/03/2024 14:31 Initial 8302- 2 [facility] O2 Saturation 100 % 2023 14:31 Initial 19332 -5 [facility] Pulse 93.0 /min 06/03/2024 14:31 Initial 8867- 4 [facility] Temperature 36.7 Antonella 98.0 F 06/03/20 14:31 Initial 8310- 5 [facility] Weight 77.11 kg 170.00 lbs 06/03/2024 14:31 Initial 36415 -7 [facility] Medications Medication Start Date End Date Route Frequency Dose Code Code System Medication Instructions Home Meds ZyrTEC Allergy 10MG Oral Capsule, Liquid Filled 03/12/2023 Unknown By Mouth Daily 1 CAPSULE 9654062 RxNorm 1 CAPSULE By Mouth Daily Fluticasone 0.05MG/1Actuatio n Nasal [place] 03/12/2023 Unknown Nasal Daily 1 Sprays 4602454 RxNorm 1 Spra ys Nasal Daily Azithromycin 500MG Oral Tablet 06/04/2024 Unknown By Mouth x1 NOW 2 TABLET 304262 RxNorm 2 TABLET By Mouth x1 NOW [...] sex practices. 3. -Keep follow up with [facility] for next week. -Given handouts for [...] up. This examination was transcribed using the [employer] voice recognition system without a human dry janitor. To expedite patient care, this report has not been adjusted for typographical, or medical, or syntax by a trained medical services assistant. Hospital Discharge Instructions Should you have any questions prior to discharge, please contact a member of your healthcare team. If you have left the hospital and have any questions, please contact your primary care physician. Reason For Referral No Data Found Problems Problem Start Date Resolved Date Status Code Code System SEASONAL ALLERGY active 699706693 SNO MED-CT FAMILY PLANNING 06/20/2020 active 154345055 SNO MED-CT BITE OF INSECT active 223509837 SNOME D-CT ES OF VAGINA 08/07/2022 active 44001253 S NOMED-CT MENORRHAGIA active 614944308 SNOMED-C T PAINFUL NECK active 49457195 SNOMED- CT ADHD OF CHILDHOOD 07/22/2019 resolved 097192405 S NOMED-CT SEASONAL NASAL ALLERGY 07/22/2019 resolved 683128 001 SNOMED-CT HISTORY OF [place] 07/22/2019 resolved 0361303 08 SNOMED-CT Allergies and Adverse Reactions Allergy Substance Reaction Severity Start Date Concern Status Co de Code System Active seasonal allergies Active No Known Drug Allergies Active 894354067 SNOMED-CT No Known Drug Allergies Active 205231493 SNOMED-CT Plan of Treatment Description Due Date Details Instructions DEPRESSION SCREENING DUE 06/20/2021 Future Order Description Future Order Date Futu re Order Loinc: TRICHOMONAS VAGINALIS FEMALE RNA QUAL LOINC: 10184-4 GC PCR [facility] 06/03/2024 LOINC: 17006-8 CHLAMYDIA PCR [facility] 06/03/2024 LOINC: 35589- 5 BACTERIAL VAGINOSIS RAPID TEST 06/03/2024 LOINC: 6410-5 CULTURE YEAST, WITH IDENTIFICATION 06/03/2024 LOINC: 61014-6 Encounters Encounter Diagnosis Start Date Code Code Sys tem Acute vaginitis 06/03/2024 85607941 SNOMED-CT Personal Care Team Section Performer Name Performer Role Active Date Inactive Da te Progress Notes [facility] 06/03/2024 15:50 Date of Service: 06/03/2024 Convenient Care Visit Tishamichelle MondragonIMELDA [place] Chief Complaint: LUMP ON STOMACH History of [...] sex practices. 3. -Keep follow up with [facility] for next week. -Given handouts for [...] up. This examination was transcribed using the [employer] voice recognition system without a human dry janitor. To expedite patient care, this report has not been adjusted for typographical, or medical, or syntax by a trained medical services assistant. Meds Given This Visit: Meds ordered and administered this visit: No Current Medications Available Discharge Med List: Discharge Medications Medication Special Instructions Start Date Prescribing Fluticasone 0.05MG/1Actuation Nasal [place] 1 Sprays Nasal Daily 03/12/2023 Blanco Gallego ZyrTEC Allergy 10MG Oral Capsule, Liquid Filled 1 CAPSULE By Mouth Daily 03/12/2023 Blanco Gallego
--- OUTSIDE RECORDS SUMMARY | 2025-02-04 06:24 | XMS_ITS ---
Author Organization Unknown Address [address], [place] [phone] Phone Care Team Providers Care Intelligence Chief Name Role Phone JOSUE FULTON EDMOND Attending Unavailable Results CULTURE YEAST, WITH IDENTIFI CATION - Collect Date/Time: 02/20/2023 18:42 [facility] ID: [id number] [address], [place], [phone] LOINC: 5048-4 Test Value Unit Reference Range Code Code System Flag SOURCE: VAGINAL STATUS: FINAL ISOLATE 1: Margoth albicans A TRICHOMONAS VAGINALIS FEMALE RNA QUAL - Collect Date/Time: 02/20/2023 18:40 [facility] ID: [id number] [address], [place], [address] LOINC: 52139-9 Test Value Unit Reference Range Code Code System Flag TRICHOMONAS VAGINALISRNA, QL TMA NOT DETECTED NOT DETECTED GC/CHLAMYDIA PCR [facility] - [facility] ct Date/Time: 02/20/2023 18:40 [facility] ID: [id number] [address], [place], [address] LOINC: 5048-4 Test Value Unit Reference Range Code Code System Flag GONORRHEA PCR NOT DETECTED NORMAL: NOT DETECTED CHLAMYDIA PCR NOT DETECTED NORMAL: NOT DETECTED BACTERIAL VAGINOSIS RAPID TE ST - Collect Date/Time: 02/20/2023 18:40 [facility] ID: [id number] [address], [place], [address] LOINC: 6410-5 Test Value Unit Reference Range Code Code System Flag BACTERIAL VAGINOSIS NEGATIVE NORMAL: NEGATIVE Social History Type Status Start Date End Date Code Code Syst em Smoking History Never smoker (Never Smoked) 938631704 SNOMED CT Sex Female Sexual Orientation Straight or Heterosexual SNOMED CT Gender Identity Female [id number] [address] Medications Medication Start Date End Date Route Frequency Dose Code Code System Medication Instructions Home Meds Methocarbamol 750MG Oral Tablet 12/25/2022 03/12/2023 By Mouth As needed every 8 hr 298385 RxNorm 1-2 TABLET By Mouth As needed every 8 hr [place]-28 30 MCG-0.15 MG; NA Oral Tablet 12/25/2022 03/12/2023 By Mouth Daily 1 TABLET 942987 RxNorm 1 TABLET By Mouth Daily Macrobid 100MG Oral Capsule 02/20/2023 03/12/2023 By mouth Twice a day 1 TABLET 970134 RxNorm 1 TABLET By mouth Twice a day X 7 DAYS Pyridium 100MG Oral Tablet 02/20/2023 03/12/2023 By mouth As needed every 8 hr 1 TABLET 1589376 RxNorm 1 TABLET By mouth As needed every 8 hr for urinary pain ZyrTEC Allergy 10MG Oral Capsule, Liquid Filled 03/12/2023 Unknown By Mouth Daily 1 CAPSULE 4561116 RxNorm 1 CAPSULE By Mouth Daily Fluticasone 0.05MG/1Actuati on Nasal [place] 03/12/2023 Unknown Nasal Daily 1 Sprays 6964835 RxNorm 1 Spr ays Nasal Daily Azithromycin 500MG Oral Tablet 06/04/2024 Unknown By Mouth x1 NOW 2 TABLET 065048 RxNorm 2 TABLET By Mouth x1 NOW [...] Status Code Code System SEASONAL ALLERGY active 924127612 SNO MED-CT FAMILY PLANNING 06/20/2020 active 942568619 SNO MED-CT BITE OF INSECT active 551988254 SNOME D-CT MARGOTH OF VAGINA 08/07/2022 active 06860454 S NOMED-CT MENORRHAGIA active 815746733 SNOMED-C T PAINFUL NECK active 25401272 SNOMED- CT ADHD OF CHILDHOOD 07/22/2019 resolved 947407633 S NOMED-CT SEASONAL NASAL ALLERGY 07/22/2019 resolved 186897 001 SNOMED-CT HISTORY OF [place] 07/22/2019 resolved 6970179 08 SNOMED-CT Allergies and Adverse Reactions Allergy Substance Reaction Severity Start Date Concern Status Co de Code System Active seasonal allergies Active No Known Drug Allergies Active 614387949 SNOMED-CT No Known Drug Allergies Active 238039004 SNOMED-CT Plan of Treatment Description Due Date Details Instructions DEPRESSION SCREENING DUE 06/20/2021 Encounters Encounter Diagnosis Start Date Code Code Sys tem Dysuria 02/20/2023 71310252 SNOMED-CT Personal Care Team Section Performer Name Performer Role Active Date Inactive David mccallum
--- OUTSIDE RECORDS SUMMARY | 2025-02-04 06:24 | XMS_ITS ---
Author Organization Unknown Address [address] [place] [phone] Phone Care Team Providers Care Toe Puncher Name Role Phone Blanco Gallego Attending Unavailable [...] ANTIGEN - Collec t Date/Time: 03/12/2023 14:51 [facility] ID: [id number] [address] [place], [place], [id number] LOINC: 6556-5 Test Value Unit Reference Range Code Code System Flag COVID RAPID ANTI NEGATIVE NORMAL: NEGATIVE LOT#: [id number] Exp Date: 12/07/2023 QC: ACCEPTABLE STREP A SCREEN - Collect Sha e/Time: 03/12/2023 14:50 [facility] ID: [id number] [address] [place], [place], [address] LOINC: 6556-5 Test Value Unit Reference Range Code Code System Flag STREP SCREEN NEGATIVE NORMAL: NEGATIVE 6556-5 LOINC Lot#: [id number] Exp Date: 04/10/2024 QC STREP ACCEPTABLE Social History Type Status Start Date End Date Code Code Syst em Smoking History Never smoker (Never Smoked) 870279300 SNOMED CT Sex Female Sexual Orientation Straight or Heterosexual 57393850 SNOMED CT Gender Identity Female 23774593597529 [address] Vital Signs Vital Sign Value Unit [place] Value [place] Unit Date/Time Recent/Initial? Code Code System Body Mass Index 23.57 kg/m2 03/12/2023 14:40 Initial 57919 -5 [facility] Body Mass Index Percentile 71 % 03/12/2023 14:40 Initial 46339 -9 [facility] Systolic Blood Pressure 100 mm[Hg] 03/12/2023 14:40 Initial 8480- 6 LO[facility] Diastolic Blood Pressure 68 mm[Hg] 03/12/2023 14:40 Initial 8462- 4 [facility] Body Surface Area 1.84 m2 03/12/2023 14:40 Initial 3140- 1 [facility] Height 172.720 0 cm 68.00 in 03/12/2023 14:40 Initial 8302- 2 INC O2 Saturation 95 % 2022 14:40 Initial 11186 -5 LO[facility] Pulse 56.0 /min 03/12/2023 14:40 Initial 8867- 4 LO[facility] Respiration 16 /min 03/12/20 14:40 Initial 9279- 1 LOINC Temperature 37.5 Antonella 99.5 F 03/12/20 14:40 Initial 8310- 5 INC Weight 70.31 kg 155.00 lbs 03/12/2023 14:40 Initial 12512 -7 [facility] Medications Medication Start Date End Date Route Frequency Dose Code Code System Medication Instructions Home Meds Methocarbamol 750MG Oral Tablet 12/25/2022 03/12/2023 By Mouth As needed every 8 hr 873681 RxNorm 1-2 TABLET By Mouth As needed every 8 hr [place]-28 30 MCG-0.15 MG; NA Oral Tablet 12/25/2022 03/12/2023 By Mouth Daily 1 TABLET 765143 RxNorm 1 TABLET By Mouth Daily Macrobid 100MG Oral Capsule 02/20/2023 03/12/2023 By mouth Twice a day 1 TABLET 191419 RxNorm 1 TABLET By mouth Twice a day X 7 DAYS Pyridium 100MG Oral Tablet 02/20/2023 03/12/2023 By mouth As needed every 8 hr 1 TABLET 0618708 RxNorm 1 TABLET By mouth As needed every 8 hr for urinary pain ZyrTEC Allergy 10MG Oral Capsule, Liquid Filled 03/12/2023 Unknown By Mouth Daily 1 CAPSULE 4778270 RxNorm 1 CAPSULE By Mouth Daily Fluticasone 0.05MG/1Actuati on Nasal [place] 03/12/2023 Unknown Nasal Daily 1 Sprays 3590195 RxNorm 1 Spr ays Nasal Daily Azithromycin 500MG Oral Tablet 06/04/2024 Unknown By Mouth x1 NOW 2 TABLET 246292 RxNorm 2 TABLET By Mouth x1 NOW [...] Status Code Code System SEASONAL ALLERGY active 672436896 SNO MED-CT FAMILY PLANNING 06/20/2020 active 553888459 SNO MED-CT BITE OF INSECT active 571334427 SNOME D-CT ES OF VAGINA 08/07/2022 active 38451923 S NOMED-CT MENORRHAGIA active 817538974 SNOMED-C T PAINFUL NECK active 85655886 SNOMED- CT ADHD OF CHILDHOOD 07/22/2019 resolved 659993463 S NOMED-CT SEASONAL NASAL ALLERGY 07/22/2019 resolved 967358 001 SNOMED-CT HISTORY OF [place] 07/22/2019 resolved 5498195 08 SNOMED-CT Allergies and Adverse Reactions Allergy Substance Reaction Severity Start Date Concern Status Co de Code System Active seasonal allergies Active No Known Drug Allergies Active 567277267 SNOMED-CT No Known Drug Allergies Active 031957564 SNOMED-CT Plan of Treatment Description Due Date Details Instructions DEPRESSION SCREENING DUE 06/20/2021 Encounters Encounter Diagnosis Start Date Code Code Sys tem Seasonal allergic rhinitis 03/12/2023 021137343 S NOMED-CT Personal Care Team Section Performer Name Performer Role Active Date Inactive Da te Progress Notes [facility] 03/12/2023 15:06 Admission Date/Time: 03/12/2023 [...] is an 17 yo female presents to [facility] today for sore throat and cough. Pt [...] records Referring and communicating with other health animal care service worker x Obtaining and/or reviewing separately obtained history Independent interpretation of results and communicating results to the patient/family/caregiver x Performing a medically appropriate examination/evaluation Care coordination (not reported separately) x Discharge instructions given to patient. Ordered & Completed Meds Table: No Current Medications Available Discharge Med List: Discharge Medications: No Discharge Medications Available [facility] 03/12/2023 15:20 Current Date/Time: 03/12/2023 15:03 Patient Name: NELA MANZANARES was seen at [facility] [phone] on Date of Service: 03/12/2023 . They may return to school on 03/13/2023 with No restrictions . .
--- OUTSIDE RECORDS SUMMARY | 2025-02-04 06:24 | XMS_ITS ---
Author Organization Unknown Address [address] [place] [address] [phone] Phone Care Team Providers Care Phys Assistant Name Role Phone Blanco Gallego Attending [...] em Smoking History Never smoker (Never Smoked) [id number] SNOMED CT Sex Female Sexual Orientation Straight or Heterosexual 63571982 SNOMED CT Gender Identity Female [id number] [address] Vital Signs Vital Sign Value Unit [place] Value [place] Unit Date/Time Recent/Initial? Code Code System Body Mass Index 21.85 kg/m2 06/07/2022 14:23 Initial 37260 -5 [facility] Body Mass Index Percentile 57 % 06/07/2022 14:23 Initial 56884 -9 [facility] Systolic Blood Pressure 118 mm[Hg] 06/07/2022 14:23 Initial 8480- 6 [facility] Diastolic Blood Pressure 72 mm[Hg] 06/07/2022 14:23 Initial 8462- 4 [facility] Body Surface Area 1.75 m2 06/07/2022 14:23 Initial 3140- 1 [facility] Height 171.450 0 cm 67.50 in 06/07/2022 14:23 Initial 8302- 2 [facility] O2 Saturation 99 % 2021 14:23 Initial 98165 -5 [facility] Pulse 107.0 /min 06/07/2022 14:23 Initial 8867- 4 [facility] Respiration 20 /min 06/07/20 14:23 Initial 9279- 1 [facility] Temperature 36.6 Antonella 97.8 F 06/07/20 14:23 Initial 8310- 5 [facility] Weight 64.23 kg 141.60 lbs 06/07/2022 14:23 Initial 24750 -7 [facility] Medications Medication Start Date End Date Route Frequency Dose Code Code System Medication Instructions Home Meds predniSONE 50MG Oral Tablet 06/07/2022 07/31/2022 By Mouth Daily 1 TABLET 943927 RxNorm 1 TABLET By Mouth Daily 30MCG-0.15MG-NA Oral Tablet 06/07/2022 09/12/2022 By Mouth Daily 1 TABLET 628095 RxNorm 1 TABLET By Mouth Daily Diflucan 150MG Oral Tablet 08/07/2022 09/12/2022 By Mouth x1 NOW 1 TABLET 296399 RxNorm 1 TABLET By Mouth x1 NOW FOR MARCH REPEAT IN 72 HOURS Radha 28 3MG-0.02MG Oral Tablet 09/12/2022 12/25/2022 By Mouth Once a day 1 TABLET RxNorm 1 TABLET By Mouth Once a day Medrol Dosepak 4MG Oral Tablet 12/25/2022 02/20/2023 By Mouth As Directed 1 PACK 735953 RxNorm 1 PACK By Mouth As Directed Methocarbamol 750MG Oral Tablet 12/25/2022 03/12/2023 By Mouth As needed every 8 hr 327840 RxNorm 1-2 TABLET By Mouth As needed every 8 hr [place]-28 30 MCG-0.15 MG; NA Oral Tablet 12/25/2022 03/12/2023 By Mouth Daily 1 TABLET 622454 RxNorm 1 TABLET By Mouth Daily Macrobid 100MG Oral Capsule 02/20/2023 03/12/2023 By mouth Twice a day 1 TABLET 524286 RxNorm 1 TABLET By mouth Twice a day X 7 DAYS Pyridium 100MG Oral Tablet 02/20/2023 03/12/2023 By mouth As needed every 8 hr 1 TABLET 5293367 RxNorm 1 TABLET By mouth As needed every 8 hr for urinary pain ZyrTEC Allergy 10MG Oral Capsule, Liquid Filled 03/12/2023 Unknown By Mouth Daily 1 CAPSULE 0147301 RxNorm 1 CAPSULE By Mouth Daily Fluticasone 0.05MG/1Actuati on Nasal [place] 03/12/2023 Unknown Nasal Daily 1 Sprays 7119600 RxNorm 1 Spr ays Nasal Daily Azithromycin 500MG Oral Tablet 06/04/2024 Unknown By Mouth x1 NOW 2 TABLET 424700 RxNorm 2 TABLET By Mouth x1 NOW [...] Status Code Code System SEASONAL ALLERGY active 612623595 SNO MED-CT FAMILY PLANNING 06/20/2020 active 362845321 SNO MED-CT BITE OF INSECT active 207751574 SNOME D-CT ES OF VAGINA 08/07/2022 active 03585562 S NOMED-CT MENORRHAGIA active 927252750 SNOMED-C T PAINFUL NECK active 29147412 SNOMED- CT ADHD OF CHILDHOOD 07/22/2019 resolved 926764010 S NOMED-CT SEASONAL NASAL ALLERGY 07/22/2019 resolved 805211 001 SNOMED-CT HISTORY OF [place] 07/22/2019 resolved 2962277 08 SNOMED-CT Allergies and Adverse Reactions Allergy Substance Reaction Severity Start Date Concern Status Co de Code System Active seasonal allergies Active No Known Drug Allergies Active 880199226 SNOMED-CT No Known Drug Allergies Active 173012567 SNOMED-CT Plan of Treatment Description Due Date Details Instructions DEPRESSION SCREENING DUE 06/20/2021 Encounters Encounter Diagnosis Start Date Code Code Sys tem Well child visit 06/07/2022 568204010 SNOMED-CT Personal Care Team Section Performer Name Performer Role Active Date Inactive Da te Progress Notes [facility] [place] 06/07/2022 15:22 All Demographics Patient Name Age Sex Visit Number Admission Date/Time Attending Physician Date of Service Room and Bed Emergency Contact NELA MANZANARES 2005 16 years Female [id number] 06/07/2022 14:22 Julián Simeon 06/07/2022 402 06/07/2022 14:25 Accompanied By: Parent Parent, mother X. Parent, father Guardian Relative technical services manager Caregiver Family Protective services Friend Healthcare provider Law enforcement [employer] / EMS Spouse / SO Other: Preferred Language: Croatian. Vital Signs: This Visit Date/Time BP (mm/Hg) [...] environment active No Known Drug Allergies medication [id number] Nutrition X. Daily fruits and vegetables Iron [...] Record reviewed Up-to-date for age Administered Today: [place] Screening Depression Screening (annually) Screening Tool Used: [...] year Next Visit: Referral to: 16 y/o [facility] - Anticipatory guidance and bright futures discussed. Discussed control methods and will start patient on [place]. Patient to notify office if she is having any side effects. Patient states she is having anxiety, offered multiple options for managing anxiety, patient declines at this time.
--- OUTSIDE RECORDS SUMMARY | 2025-02-04 06:24 | XMS_ITS ---
Author Organization Unknown Address [address], [place] [phone] Phone Care Team Providers Care Space Buyer Name Role Phone mattyKlausSHERMAN Machado Social History Type Status Start Date End Date Code Code Syst em Smoking History Never smoker (Never Smoked) 768666082 SNOMED CT Sex Female Sexual Orientation Straight or Heterosexual 25843293 SNOMED CT Gender Identity Female [id number] [address] Medications Medication Start Date End Date Route Frequency Dose Code Code System Medication Instructions Home Meds ZyrTEC Allergy 10MG Oral Capsule, Liquid Filled 03/12/2023 Unknown By Mouth Daily 1 CAPSULE 7642164 RxNorm 1 CAPSULE By Mouth Daily Fluticasone 0.05MG/1Actuatio n Nasal [place] 03/12/2023 Unknown Nasal Daily 1 Sprays 8587140 RxNorm 1 Spra ys Nasal Daily Azithromycin 500MG Oral Tablet 06/04/2024 Unknown By Mouth x1 NOW 2 TABLET 180141 RxNorm 2 TABLET By Mouth x1 NOW [...] Status Code Code System SEASONAL ALLERGY active 301946366 SNO MED-CT FAMILY PLANNING 06/20/2020 active 971431103 SNO MED-CT BITE OF INSECT active 873116491 SNOME D-CT ES OF VAGINA 08/07/2022 active 02384686 S NOMED-CT MENORRHAGIA active 897110776 SNOMED-C T PAINFUL NECK active 14735682 SNOMED- CT ADHD OF CHILDHOOD 07/22/2019 resolved 454009728 S NOMED-CT SEASONAL NASAL ALLERGY 07/22/2019 resolved 827212 001 SNOMED-CT HISTORY OF [place] 07/22/2019 resolved 3614404 08 SNOMED-CT Allergies and Adverse Reactions Allergy Substance Reaction Severity Start Date Concern Status Co de Code System Active seasonal allergies Active No Known Drug Allergies Active 351722807 SNOMED-CT No Known Drug Allergies Active 339002906 SNOMED-CT Plan of Treatment Description Due Date Details Instructions DEPRESSION SCREENING DUE 06/20/2021 Encounters Encounter Diagnosis Start Date Code Code Sys tem Dysuria 06/03/2024 51573262 SNOMED-CT Personal Care Team Section Performer Name Performer Role Active Date Inactive Da te
--- OUTSIDE RECORDS SUMMARY | 2025-02-04 06:24 | XMS_ITS ---
Author Organization Unknown Address [address] [place] [address] [phone] Phone Care Team Providers Care Bowl Sander Name Role Phone JOSUE FULTON Attending Unavailable [...] O - Collect Date/Time: 02/20/2023 18:44 [facility] ID: [id number] [address] [place] [address], [phone] LOINC: Test Value Unit Reference Range Code [...] - Colle ct Date/Time: 02/20/2023 18:43 [facility] ID: [id number] [address] [place] [address], [phone] LOINC: Test Value Unit Reference Range Code Code System Flag TEST PERFORMED URINE PREG (URINE) NEGATIVE LOT#: [id number] EXP DATE: 2023-12-11 QC: ACCEPTABLE Social History Type Status Start Date End Date Code Code Syst em Smoking History Never smoker (Never Smoked) 896470824 SNOMED CT Sex Female Sexual Orientation Straight or Heterosexual 79835512 SNOMED CT Gender Identity Female [id number] [address] Vital Signs Vital Sign Value Unit [place] Value [place] Unit Date/Time Recent/Initial? Code Code System Body Mass Index 24.50 kg/m2 02/20/2023 18:36 Initial 83093 -5 [facility] Body Mass Index Percentile 77 % 02/20/2023 18:36 Initial 10695 -9 [facility] Systolic Blood Pressure 112 mm[Hg] 02/20/2023 18:36 Initial 8480- 6 [facility] Diastolic Blood Pressure 70 mm[Hg] 02/20/2023 18:36 Initial 8462- 4 [facility] Body Surface Area 1.85 m2 02/20/2023 18:36 Initial 3140- 1 [facility] Height 171.450 0 cm 67.50 in 02/20/2023 18:36 Initial 8302- 2 [facility] O2 Saturation 98 % 2022 18:36 Initial 57813 -5 [facility] Pulse 91.0 /min 02/20/2023 18:36 Initial 8867- 4 [facility] Temperature 37.2 Antonella 98.9 F 02/21/20 18:36 Initial 8310- 5 [facility] Weight 72.03 kg 158.80 lbs 02/20/2023 18:36 Initial 76927 -7 [facility] Medications Medication Start Date End Date Route Frequency Dose Code Code System Medication Instructions Home Meds Medrol Dosepak 4MG Oral Tablet 12/25/2022 02/20/2023 By Mouth As Directed 1 PACK 561560 RxNorm 1 PACK By Mouth As Directed Methocarbamol 750MG Oral Tablet 12/25/2022 03/12/2023 By Mouth As needed every 8 hr 455625 RxNorm 1-2 TABLET By Mouth As needed every 8 hr [place]-28 30 MCG-0.15 MG; NA Oral Tablet 12/25/2022 03/12/2023 By Mouth Daily 1 TABLET 418462 RxNorm 1 TABLET By Mouth Daily Macrobid 100MG Oral Capsule 02/20/2023 03/12/2023 By mouth Twice a day 1 TABLET 218216 RxNorm 1 TABLET By mouth Twice a day X 7 DAYS Pyridium 100MG Oral Tablet 02/20/2023 03/12/2023 By mouth As needed every 8 hr 1 TABLET 2739819 RxNorm 1 TABLET By mouth As needed every 8 hr for urinary pain ZyrTEC Allergy 10MG Oral Capsule, Liquid Filled 03/12/2023 Unknown By Mouth Daily 1 CAPSULE 8910649 RxNorm 1 CAPSULE By Mouth Daily Fluticasone 0.05MG/1Actuati on Nasal [place] 03/12/2023 Unknown Nasal Daily 1 Sprays 4895465 RxNorm 1 Spr ays Nasal Daily Azithromycin 500MG Oral Tablet 06/04/2024 Unknown By Mouth x1 NOW 2 TABLET 909455 RxNorm 2 TABLET By Mouth x1 NOW [...] Status Code Code System SEASONAL ALLERGY active 617252794 SNO MED-CT FAMILY PLANNING 06/20/2020 active 498714185 SNO MED-CT BITE OF INSECT active 348608774 SNOME D-CT ES OF VAGINA 08/07/2022 active 39290158 S NOMED-CT MENORRHAGIA active 970937944 SNOMED-C T PAINFUL NECK active 13031873 SNOMED- CT ADHD OF CHILDHOOD 07/22/2019 resolved 752510302 S NOMED-CT SEASONAL NASAL ALLERGY 07/22/2019 resolved 382308 001 SNOMED-CT HISTORY OF [place] 07/22/2019 resolved 7094175 08 SNOMED-CT Allergies and Adverse Reactions Allergy Substance Reaction Severity Start Date Concern Status Co de Code System Active seasonal allergies Active No Known Drug Allergies Active 804879247 SNOMED-CT No Known Drug Allergies Active 524490331 SNOMED-CT Plan of Treatment Description Due Date Details Instructions DEPRESSION SCREENING DUE 06/20/2021 Future Order Description Future Order Date Futu re Order Loinc: CULTURE URINE 02/20/2023 LOINC: 630-4 TRICHOMONAS VAGINALIS FEMALE RNA QUAL LOINC: 76106-9 GC/CHLAMYDIA PCR [place] 02/20/2023 LOINC: 448 06-8 CULTURE YEAST, WITH IDENTIFICATION 02/20/2023 LOINC: 27180-6 BACTERIAL VAGINOSIS RAPID TEST 02/20/2023 LOINC: 6410-5 Encounters Encounter Diagnosis Start Date Code Code Sys tem Urinary tract infectious disease 02/20/2023 17037045 SNOMED-CT Personal Care Team Section Performer Name Performer Role Active Date Inactive Da te Progress Notes [facility] 02/20/2023 19:27 Admission Date/Time: 02/20/2023 18:07 Convenient [...] up. This examination was transcribed using the [employer] voice recognition system without human dental appliance fixer. In an effort to expedite patient care, this report has not been adjusted for typographical, or medical or syntax by a trained biomedical specialist. Allergy Table Allergen Type Reaction seasonal allergies [...] NEGATIVE 02/20/2023 18:38 02/20/2023 18:43 final LOT#: [id number] 02/20/2023 18:38 02/20/2023 18:43 final EXP DATE: [...] day X 7 DAYS 02/20/2023 JOSUE FULTON [place]-28 30 MCG-0.15 MG; NA Oral Tablet 1 TABLET By Mouth Daily 12/25/2022 Blanco Gallego Methocarbamol 750MG Oral Tablet 1-2 TABLET By Mouth As needed every 8 hr 12/25/2022 Blanco Gallego
--- OUTSIDE RECORDS SUMMARY | 2025-02-04 06:25 | XMS_ITS ---
Author Organization Unknown Address [address] [place] [address] [phone] Phone Care Team Providers Care Garnett Fixer Name Role Phone TABATHA RODGERS Attending Unavailable [...] em Smoking History Never smoker (Never Smoked) 516230083 SNOMED CT Sex Female Sexual Orientation Straight or Heterosexual 24501740 SNOMED CT Gender Identity Female [id number] [address] Medications Medication Start Date End Date Route Frequency Dose Code Code System Medication Instructions Home Meds predniSONE 50MG Oral Tablet 06/07/2022 07/31/2022 By Mouth Daily 1 TABLET 157136 RxNorm 1 TABLET By Mouth Daily [place]-28 30MCG-0.15MG-NA Oral Tablet 06/07/2022 09/12/2022 By Mouth Daily 1 TABLET 914522 RxNorm 1 TABLET By Mouth Daily Diflucan 150MG Oral Tablet 08/07/2022 09/12/2022 By Mouth x1 NOW 1 TABLET 168049 RxNorm 1 TABLET By Mouth x1 NOW FOR MARCH REPEAT IN 72 HOURS Radha 28 3MG-0.02MG Oral Tablet 09/12/2022 12/25/2022 By Mouth Once a day 1 TABLET RxNorm 1 TABLET By Mouth Once a day Medrol Dosepak 4MG Oral Tablet 12/25/2022 02/20/2023 By Mouth As Directed 1 PACK 238914 RxNorm 1 PACK By Mouth As Directed Methocarbamol 750MG Oral Tablet 12/25/2022 03/12/2023 By Mouth As needed every 8 hr 283312 RxNorm 1-2 TABLET By Mouth As needed every 8 hr [place]-28 30 MCG-0.15 MG; NA Oral Tablet 12/25/2022 03/12/2023 By Mouth Daily 1 TABLET 841050 RxNorm 1 TABLET By Mouth Daily Macrobid 100MG Oral Capsule 02/20/2023 03/12/2023 By mouth Twice a day 1 TABLET 875742 RxNorm 1 TABLET By mouth Twice a day X 7 DAYS Pyridium 100MG Oral Tablet 02/20/2023 03/12/2023 By mouth As needed every 8 hr 1 TABLET 8584825 RxNorm 1 TABLET By mouth As needed every 8 hr for urinary pain ZyrTEC Allergy 10MG Oral Capsule, Liquid Filled 03/12/2023 Unknown By Mouth Daily 1 CAPSULE 0823867 RxNorm 1 CAPSULE By Mouth Daily Fluticasone 0.05MG/1Actuati on Nasal [place] 03/12/2023 Unknown Nasal Daily 1 Sprays 6809789 RxNorm 1 Spr ays Nasal Daily Azithromycin 500MG Oral Tablet 06/04/2024 Unknown By Mouth x1 NOW 2 TABLET 190212 RxNorm 2 TABLET By Mouth x1 NOW [...] Status Code Code System SEASONAL ALLERGY active 268191236 SNO MED-CT FAMILY PLANNING 06/20/2020 active 594494848 SNO MED-CT BITE OF INSECT active 610252885 SNOME D-CT ES OF VAGINA 08/07/2022 active 71647366 S NOMED-CT MENORRHAGIA active 654817373 SNOMED-C T PAINFUL NECK active 93861840 SNOMED- CT ADHD OF CHILDHOOD 07/22/2019 resolved 028240083 S NOMED-CT SEASONAL NASAL ALLERGY 07/22/2019 resolved 515479 001 SNOMED-CT HISTORY OF [place] 07/22/2019 resolved 1937726 08 SNOMED-CT Allergies and Adverse Reactions Allergy Substance Reaction Severity Start Date Concern Status Co de Code System Active seasonal allergies Active No Known Drug Allergies Active 009012075 SNOMED-CT No Known Drug Allergies Active 547852998 SNOMED-CT Plan of Treatment Description Due Date Details Instructions DEPRESSION SCREENING DUE 06/20/2021 Personal Care Team Section Performer Name Performer Role Active Date Inactive David mccallum
--- OUTSIDE RECORDS SUMMARY | 2025-02-04 06:25 | XMS_ITS ---
Author Organization Unknown Address [address] [place] [address] [phone] Phone Care Team Providers Care Scrub Technician Name Role Phone ATIYA Lezama MD [...] em Smoking History Never smoker (Never Smoked) 628604272 SNOMED CT Sex Female Sexual Orientation Straight or Heterosexual 91954898 SNOMED CT Gender Identity Female [id number] [address] Medications Medication Start Date End Date Route Frequency Dose Code Code System Medication Instructions Home Meds Radha 28 3MG-0.02MG Oral Tablet 09/12/2022 12/25/2022 By Mouth Once a day 1 TABLET RxNorm 1 TABLET By Mouth Once a day Medrol Dosepak 4MG Oral Tablet 12/25/2022 02/20/2023 By Mouth As Directed 1 PACK 607983 RxNorm 1 PACK By Mouth As Directed Methocarbamol 750MG Oral Tablet 12/25/2022 03/12/2023 By Mouth As needed every 8 hr 600516 RxNorm 1-2 TABLET By Mouth As needed every 8 hr [place]-28 30 MCG-0.15 MG; NA Oral Tablet 12/25/2022 03/12/2023 By Mouth Daily 1 TABLET 821492 RxNorm 1 TABLET By Mouth Daily Macrobid 100MG Oral Capsule 02/20/2023 03/12/2023 By mouth Twice a day 1 TABLET 910925 RxNorm 1 TABLET By mouth Twice a day X 7 DAYS Pyridium 100MG Oral Tablet 02/20/2023 03/12/2023 By mouth As needed every 8 hr 1 TABLET 9970259 RxNorm 1 TABLET By mouth As needed every 8 hr for urinary pain ZyrTEC Allergy 10MG Oral Capsule, Liquid Filled 03/12/2023 Unknown By Mouth Daily 1 CAPSULE 0911406 RxNorm 1 CAPSULE By Mouth Daily Fluticasone 0.05MG/1Actuati on Nasal [place] 03/12/2023 Unknown Nasal Daily 1 Sprays 0227644 RxNorm 1 Spr ays Nasal Daily Azithromycin 500MG Oral Tablet 06/04/2024 Unknown By Mouth x1 NOW 2 TABLET 997086 RxNorm 2 TABLET By Mouth x1 NOW [...] Status Code Code System SEASONAL ALLERGY active 224358798 SNO MED-CT FAMILY PLANNING 06/20/2020 active 825573677 SNO MED-CT BITE OF INSECT active 982534982 SNOME D-CT ES OF VAGINA 08/07/2022 active 17924911 S NOMED-CT MENORRHAGIA active 190220476 SNOMED-C T PAINFUL NECK active 45904290 SNOMED- CT ADHD OF CHILDHOOD 07/22/2019 resolved 286316235 S NOMED-CT SEASONAL NASAL ALLERGY 07/22/2019 resolved 357540 001 SNOMED-CT HISTORY OF [place] 07/22/2019 resolved 9324681 08 SNOMED-CT Allergies and Adverse Reactions Allergy Substance Reaction Severity Start Date Concern Status Co de Code System Active seasonal allergies Active No Known Drug Allergies Active 420846115 SNOMED-CT No Known Drug Allergies Active 150172994 SNOMED-CT Plan of Treatment Description Due Date Details Instructions DEPRESSION SCREENING DUE 06/20/2021 Personal Care Team Section Performer Name Performer Role Active Date Inactive David mccallum
--- OUTSIDE RECORDS SUMMARY | 2025-02-04 06:25 | XMS_ITS ---
Author Organization Unknown Address [address] [place] [address] [phone] Phone Care Team Providers Care Foot Gatherer Name Role Phone Blanco Gallego Attending Unavailable [...] em Smoking History Never smoker (Never Smoked) 557563633 SNOMED CT Sex Female Sexual Orientation Straight or Heterosexual 77125231 SNOMED CT Gender Identity Female [id number] [address] Medications Medication Start Date End Date Route Frequency Dose Code Code System Medication Instructions Home Meds ZyrTEC Allergy 10MG Oral Capsule, Liquid Filled 03/12/2023 Unknown By Mouth Daily 1 CAPSULE 9086050 RxNorm 1 CAPSULE By Mouth Daily Fluticasone 0.05MG/1Actuatio n Nasal [place] 03/12/2023 Unknown Nasal Daily 1 Sprays 7385428 RxNorm 1 Spra ys Nasal Daily Azithromycin 500MG Oral Tablet 06/04/2024 Unknown By Mouth x1 NOW 2 TABLET 388252 RxNorm 2 TABLET By Mouth x1 NOW [...] Status Code Code System SEASONAL ALLERGY active 458603525 SNO MED-CT FAMILY PLANNING 06/20/2020 active 529057243 SNO MED-CT BITE OF INSECT active 124753157 SNOME D-CT ES OF VAGINA 08/07/2022 active 54624577 S NOMED-CT MENORRHAGIA active 716818712 SNOMED-C T PAINFUL NECK active 17294375 SNOMED- CT ADHD OF CHILDHOOD 07/22/2019 resolved 935787544 S NOMED-CT SEASONAL NASAL ALLERGY 07/22/2019 resolved 343285 001 SNOMED-CT HISTORY OF [place] 07/22/2019 resolved 3874889 08 SNOMED-CT Allergies and Adverse Reactions Allergy Substance Reaction Severity Start Date Concern Status Co de Code System Active seasonal allergies Active No Known Drug Allergies Active 187351016 SNOMED-CT No Known Drug Allergies Active 159133209 SNOMED-CT Plan of Treatment Description Due Date Details Instructions DEPRESSION SCREENING DUE 06/20/2021 Personal Care Team Section Performer Name Performer Role Active Date Inactive Da xena
--- OUTSIDE RECORDS SUMMARY | 2025-02-04 06:25 | XMS_ITS ---
Author Organization Unknown Address [address], [place] [phone] Phone Care Team Providers Care Propagator Laborer Name Role Phone Sherrytita AltamiranoOpal Attending Unavailable Results BACTERIAL VAGINOSIS RAPID TE ST - Collect Date/Time: 07/31/2022 17:20 [facility] ID: [id number] [address], [place], [phone] LOINC: 6410-5 Test Value Unit Reference Range Code Code System Flag BACTERIAL VAGINOSIS NEGATIVE NORMAL: NEGATIVE CULTURE YEAST, WITH IDENTIFI CATION - Collect Date/Time: 07/31/2022 17:19 [facility] ID: [id number] [address], [place], [id number] LOINC: 5048-4 Test Value Unit Reference Range Code Code System Flag SOURCE: VAGINAL STATUS: FINAL ISOLATE 1: Margoth albicans A CULTURE: Culture in progress TRICHOMONAS VAGINALIS FEMALE RNA QUAL - Collect Date/Time: 07/31/2022 17:19 [facility] ID: [id number] [address], [place], [phone] LOINC: 96861-0 Test Value Unit Reference Range Code Code System Flag TRICHOMONAS VAGINALISRNA, QL TMA NOT DETECTED NOT DETECTED CHLAMYDIA/GC URINE RNA, TMA APTIMA - Collect Date/Time: 07/31/2022 17:19 [facility] ID: [id number] [address], [place], [phone] LOINC: 5048-4 Test Value Unit Reference Range Code Code System Flag CHLAMYDIA TRACHOMATISRNA, TMA, UROGENITAL NOT DETECTED NOT DETECTED NEISSERIA GONORRHOEAERNA, TMA, UROGENITAL NOT DETECTED NOT DETECTED Social History Type Status Start Date End Date Code Code Syst em Smoking History Never smoker (Never Smoked) 342834926 SNOMED CT Sex Female Sexual Orientation Straight or Heterosexual 03168258 SNOMED CT Gender Identity Female [id number] Medications Medication Start Date End Date Route Frequency Dose Code Code System Medication Instructions Home Meds Anel-28 30MCG-0.15MG-NA Oral Tablet 06/07/2022 09/12/2022 By Mouth Daily 1 TABLET 618165 RxNorm 1 TABLET By Mouth Daily Diflucan [...] 02/20/2023 By Mouth As Directed 1 PACK 194591 RxNorm 1 PACK By Mouth As Directed Methocarbamol 750MG Oral Tablet 12/25/2022 03/12/2023 By Mouth As needed every 8 hr 307685 RxNorm 1-2 TABLET By Mouth As needed every 8 hr [place]-28 30 MCG-0.15 MG; NA Oral Tablet 12/25/2022 03/12/2023 By Mouth Daily 1 TABLET 552957 RxNorm 1 TABLET By Mouth Daily Macrobid 100MG Oral Capsule 02/20/2023 03/12/2023 By mouth Twice a day 1 TABLET 619369 RxNorm 1 TABLET By mouth Twice a day X 7 DAYS Pyridium 100MG Oral Tablet 02/20/2023 03/12/2023 By mouth As needed every 8 hr 1 TABLET 9482321 RxNorm 1 TABLET By mouth As needed every 8 hr for urinary pain ZyrTEC Allergy 10MG Oral Capsule, Liquid Filled 03/12/2023 Unknown By Mouth Daily 1 CAPSULE 4239953 RxNorm 1 CAPSULE By Mouth Daily Fluticasone 0.05MG/1Actuatio n Nasal [place] 03/12/2023 Unknown Nasal Daily 1 Sprays 4067313 RxNorm 1 Spra ys Nasal Daily Azithromycin 500MG Oral Tablet 06/04/2024 Unknown By Mouth x1 NOW 2 TABLET 510275 RxNorm 2 TABLET By Mouth x1 NOW [...] Status Code Code System SEASONAL ALLERGY active 644408392 SNO MED-CT FAMILY PLANNING 06/20/2020 active 942859014 SNO MED-CT BITE OF INSECT active 532731065 SNOME D-CT MARGOTH OF VAGINA 08/07/2022 active 14365026 S NOMED-CT MENORRHAGIA active 821162962 SNOMED-C T PAINFUL NECK active 51552334 SNOMED- CT ADHD OF CHILDHOOD 07/22/2019 resolved 129375688 S NOMED-CT SEASONAL NASAL ALLERGY 07/22/2019 resolved 492263 001 SNOMED-CT HISTORY OF CHICKENPOX 07/22/2019 resolved 9682262 08 SNOMED-CT Allergies and Adverse Reactions Allergy Substance Reaction Severity Start Date Concern Status Co de Code System Active seasonal allergies Active No Known Drug Allergies Active 443781634 SNOMED-CT No Known Drug Allergies Active 452825036 SNOMED-CT Plan of Treatment Description Due Date Details Instructions DEPRESSION SCREENING DUE 06/20/2021 Encounters Encounter Diagnosis Start Date Code Code Sys tem Noninflammatory disorder of the vagina 07/31/2022 22 237489 SNOMED-CT Personal Care Team Section Performer Name Performer Role Active Date Inactive Da te
--- OUTSIDE RECORDS SUMMARY | 2025-02-04 06:26 | XMS_ITS ---
Author Organization Unknown Address [address] [place] [phone] Phone Care Team Providers Care Tobacco Conditioner Name Role Phone TABATHA RODGERS Attending Unavailable [...] MICR O - Collect Date/Time: 07/31/2022 17:14 [facility] ID: [id number] [address] [place] [address], [phone] LOINC: Test Value Unit Reference Range Code [...] TEST - Colle ct Date/Time: 07/31/2022 17:12 [facility] ID: [id number] [address] [place] [address], [phone] LOINC: Test Value Unit Reference Range Code Code System Flag TEST PERFORMED URINE PREG (URINE) NEGATIVE LOT#: [id number] EXP DATE: 2023-10-10 QC: ACCEPTABLE Social History Type Status Start Date End Date Code Code Syst em Smoking History Never smoker (Never Smoked) 383012024 SNOMED CT Sex Female Sexual Orientation Straight or Heterosexual 22672343 SNOMED CT Gender Identity Female [id number] [address] Vital Signs Vital Sign Value Unit [place] Value [place] Unit Date/Time Recent/Initial? Code Code System Body Mass Index 23.34 kg/m2 07/31/2022 16:59 Initial 52611 -5 LO[facility] Body Mass Index Percentile 71 % 07/31/2022 16:59 Initial 96545 -9 LO[facility] Systolic Blood Pressure 120 mm[Hg] 07/31/2022 16:59 Initial 8480- 6 [facility] Diastolic Blood Pressure 80 mm[Hg] 07/31/2022 16:59 Initial 8462- 4 INC Body Surface Area 1.79 m2 07/31/2022 16:59 Initial 3140- 1 LOINC Height 170.180 0 cm 67.00 in 07/31/2022 16:59 Initial 8302- 2 INC O2 Saturation 98 % 2021 16:59 Initial 41455 -5 [facility] Pulse 92.0 /min 07/31/2022 16:59 Initial 8867- 4 INC Temperature 36.8 Antonella 98.2 F 07/31/20 16:59 Initial 8310- 5 [facility] Weight 67.59 kg 149.00 lbs 07/31/2022 16:59 Initial 76738 -7 [facility] Medications Medication Start Date End Date Route Frequency Dose Code Code System Medication Instructions Home Meds predniSONE 50MG Oral Tablet 06/07/2022 07/31/2022 By Mouth Daily 1 TABLET 589781 RxNorm 1 TABLET By Mouth Daily Anel-28 30MCG-0.15MG-NA Oral Tablet 06/07/2022 09/12/2022 By Mouth Daily 1 TABLET 356880 RxNorm 1 TABLET By Mouth Daily Diflucan [...] 02/20/2023 By Mouth As Directed 1 PACK 855131 RxNorm 1 PACK By Mouth As Directed Methocarbamol 750MG Oral Tablet 12/25/2022 03/12/2023 By Mouth As needed every 8 hr 293080 RxNorm 1-2 TABLET By Mouth As needed every 8 hr Anel-28 30 MCG-0.15 MG; NA Oral Tablet 12/25/2022 03/12/2023 By Mouth Daily 1 TABLET 323133 RxNorm 1 TABLET By Mouth Daily Macrobid 100MG Oral Capsule 02/20/2023 03/12/2023 By mouth Twice a day 1 TABLET 091391 RxNorm 1 TABLET By mouth Twice a day X 7 DAYS Pyridium 100MG Oral Tablet 02/20/2023 03/12/2023 By mouth As needed every 8 hr 1 TABLET 1830169 RxNorm 1 TABLET By mouth As needed every 8 hr for urinary pain ZyrTEC Allergy 10MG Oral Capsule, Liquid Filled 03/12/2023 Unknown By Mouth Daily 1 CAPSULE 5311767 RxNorm 1 CAPSULE By Mouth Daily Fluticasone 0.05MG/1Actuati on Nasal [place] 03/12/2023 Unknown Nasal Daily 1 Sprays 7345415 RxNorm 1 Spr ays Nasal Daily Azithromycin 500MG Oral Tablet 06/04/2024 Unknown By Mouth x1 NOW 2 TABLET 848439 RxNorm 2 TABLET By Mouth x1 NOW [...] Status Code Code System SEASONAL ALLERGY active 531144456 SNO MED-CT FAMILY PLANNING 06/20/2020 active 132096580 SNO MED-CT BITE OF INSECT active 707572592 SNOME D-CT ES OF VAGINA 08/07/2022 active 10884835 S NOMED-CT MENORRHAGIA active 004879363 SNOMED-C T PAINFUL NECK active 94320676 SNOMED- CT ADHD OF CHILDHOOD 07/22/2019 resolved 371751098 S NOMED-CT SEASONAL NASAL ALLERGY 07/22/2019 resolved 596620 001 SNOMED-CT HISTORY OF CHICKENPOX 07/22/2019 resolved 3893901 08 SNOMED-CT Allergies and Adverse Reactions Allergy Substance Reaction Severity Start Date Concern Status Co de Code System Active seasonal allergies Active No Known Drug Allergies Active 680530808 SNOMED-CT No Known Drug Allergies Active 370465651 SNOMED-CT Plan of Treatment Description Due Date Details Instructions DEPRESSION SCREENING DUE 06/20/2021 Future Order Description Future Order Date Futu re Order Loinc: BACTERIAL VAGINOSIS RAPID TEST 07/31/2022 LOINC: 6410-5 CULTURE YEAST, WITH IDENTIFICATION 07/31/2022 LOINC: 17213-3 TRICHOMONAS VAGINALIS FEMALE RNA QUAL 2 LOINC: 44113-6 CHLAMYDIA/GC URINE RNA, TMA APTIMA 07/31/2022 LOINC: 5048-4 CULTURE URINE 07/31/2022 LOINC: 630-4 Encounters Encounter Diagnosis Start Date Code Code Sys tem Acute vaginitis 07/31/2022 67958584 SNOMED-CT Personal Care Team Section Performer Name Performer Role Active Date Inactive Da te Progress Notes [facility] 07/31/2022 18:10 Admission Date/Time: 07/31/2022 [...] NEGATIVE 07/31/2022 17:10 07/31/2022 17:12 final LOT#: [id number] 07/31/2022 17:10 07/31/2022 17:12 final EXP DATE: [...]
--- OUTSIDE RECORDS SUMMARY | 2025-02-04 06:26 | XMS_ITS ---
Author Organization Unknown Address [address] [place] [phone] Phone Care Team Providers Care Stock Handler Floorperson Name Role Phone Blanco Gallego Attending Unavailable [...] em Smoking History Never smoker (Never Smoked) 050986652 SNOMED CT Sex Female Sexual Orientation Straight or Heterosexual 17662328 SNOMED CT Gender Identity Female [id number] [address] Vital Signs Vital Sign Value Unit [place] Value [place] Unit Date/Time Recent/Initial? Code Code System Body Mass Index 23.87 kg/m2 12/25/2022 13:33 Initial 72764 -5 [facility] Body Mass Index Percentile 74 % 12/25/2022 13:33 Initial 23362 -9 [facility] Systolic Blood Pressure 106 mm[Hg] 12/25/2022 13:33 Initial 8480- 6 [facility] Diastolic Blood Pressure 72 mm[Hg] 12/25/2022 13:33 Initial 8462- 4 [facility] Body Surface Area 1.85 m2 12/25/2022 13:33 Initial 3140- 1 [facility] Height 172.720 0 cm 68.00 in 12/25/2022 13:33 Initial 8302- 2 [facility] O2 Saturation 100 % 2022 13:33 Initial 72172 -5 [facility] Pulse 82.0 /min 12/25/2022 13:33 Initial 8867- 4 [facility] Respiration 16 /min 12/25/19 13:33 Initial 9279- 1 [facility] Temperature 37.0 Antonella 98.6 F 12/25/19 13:33 Initial 8310- 5 [facility] Weight 71.21 kg 157.00 lbs 12/25/2022 13:33 Initial 52611 -7 [facility] Medications Medication Start Date End Date Route Frequency Dose Code Code System Medication Instructions Home Meds Radha 28 3MG-0.02MG Oral Tablet 09/12/2022 12/25/2022 By Mouth Once a day 1 TABLET RxNorm 1 TABLET By Mouth Once a day Medrol Dosepak 4MG Oral Tablet 12/25/2022 02/20/2023 By Mouth As Directed 1 PACK 682542 RxNorm 1 PACK By Mouth As Directed Methocarbamol 750MG Oral Tablet 12/25/2022 03/12/2023 By Mouth As needed every 8 hr 013925 RxNorm 1-2 TABLET By Mouth As needed every 8 hr Althe[place]-28 30 MCG-0.15 MG; NA Oral Tablet 12/25/2022 03/12/2023 By Mouth Daily 1 TABLET 797915 RxNorm 1 TABLET By Mouth Daily Macrobid 100MG Oral Capsule 02/20/2023 03/12/2023 By mouth Twice a day 1 TABLET 496741 RxNorm 1 TABLET By mouth Twice a day X 7 DAYS Pyridium 100MG Oral Tablet 02/20/2023 03/12/2023 By mouth As needed every 8 hr 1 TABLET 7876991 RxNorm 1 TABLET By mouth As needed every 8 hr for urinary pain ZyrTEC Allergy 10MG Oral Capsule, Liquid Filled 03/12/2023 Unknown By Mouth Daily 1 CAPSULE 7605697 RxNorm 1 CAPSULE By Mouth Daily Fluticasone 0.05MG/1Actuati on Nasal [place] 03/12/2023 Unknown Nasal Daily 1 Sprays 5396896 RxNorm 1 Spr ays Nasal Daily Azithromycin 500MG Oral Tablet 06/04/2024 Unknown By Mouth x1 NOW 2 TABLET 470050 RxNorm 2 TABLET By Mouth x1 NOW Assessment You had the following problems:SEASONAL ALLERGYFAMILY PLANNINGBITE OF INSECTCANDIDA OF VAGINAMENORRHAGIAPAINFUL NECK Assessment/Plan: 1. Left upper back pain - Start steroids and muscle relaxer. Patient denies need for school note. 2. Contraceptive management - Patient requesting to restart Altheimer, will restart at this time Return to clinic [facility] Discharge Instructions Should you have any questions prior to discharge, please contact a member of your healthcare team. If you have left the hospital and have any questions, please contact your primary care physician. Reason For Referral No Data Found Problems Problem Start Date Resolved Date Status Code Code System SEASONAL ALLERGY active 908516434 SNO MED-CT FAMILY PLANNING 06/20/2020 active 081165751 SNO MED-CT BITE OF INSECT active 066373326 SNOME D-CT ES OF VAGINA 08/07/2022 active 42398786 S NOMED-CT MENORRHAGIA active 701097679 SNOMED-C T PAINFUL NECK active 64973355 SNOMED- CT ADHD OF CHILDHOOD 07/22/2019 resolved 581816826 S NOMED-CT SEASONAL NASAL ALLERGY 07/22/2019 resolved 871973 001 SNOMED-CT HISTORY OF CH[place]ENPOX 07/22/2019 resolved 0792356 08 SNOMED-CT Allergies and Adverse Reactions Allergy Substance Reaction Severity Start Date Concern Status Co de Code System Active seasonal allergies Active No Known Drug Allergies Active 372826190 SNOMED-CT No Known Drug Allergies Active 733103193 SNOMED-CT Plan of Treatment Description Due Date Details Instructions DEPRESSION SCREENING DUE 06/20/2021 Encounters Encounter Diagnosis Start Date Code Code Sys tem Pain in thoracic spine 12/25/2022 839970190 SNOME D-CT Personal Care Team Section Performer Name Performer Role Active Date Inactive Da te Progress Notes [facility] 12/25/2022 13:54 Admission Date/Time: 12/25/2022 13:07 [facility] Visit Note Chief Complaint: [facility] F/U UPPER BACK PAIN/BY NECK SWOLLEN [...] is an 17 yo female presents to [facility] today for [facility] follow up neck and back pain. Pt states she went to [facility] on 12-18-22 with neck and upper back pain. States it just started hurting her while at work, denies injury to the areas. States no xrays were done at ER and was given Rx for steroids that she did not black pickler. States she has been taking warm baths [...] Contraceptive management - Patient requesting to restart Altheimer, will restart at this time Return to [...] and communicating with other health child care cook x Obtaining and/or reviewing separately obtained history Independent interpretation of results and communicating results to the patient/family/caregiver x Performing a medically appropriate examination/evaluation Care coordination (not reported separately) Ordered & Completed Meds Table: No Current Medications Available Discharge Med List: Discharge Medications: No Discharge Medications Available
--- OUTSIDE RECORDS SUMMARY | 2025-02-04 06:26 | XMS_ITS ---
Author Organization Unknown Address [address] [place] [phone] Phone Care Team Providers Care Purchase Request Editor Name Role Phone ATIYA Lezama MD Attending [...] em Smoking History Never smoker (Never Smoked) 892254231 SNOMED CT Sex Female Sexual Orientation Straight or Heterosexual 19750362 SNOMED CT Gender Identity Female [id number] [address] Medications Medication Start Date End Date Route Frequency Dose Code Code System Medication Instructions Home Meds ZyrTEC Allergy 10MG Oral Capsule, Liquid Filled 03/12/2023 Unknown By Mouth Daily 1 CAPSULE 6768402 RxNorm 1 CAPSULE By Mouth Daily Fluticasone 0.05MG/1Actuatio n Nasal [place] 03/12/2023 Unknown Nasal Daily 1 Sprays 9097902 RxNorm 1 Spra ys Nasal Daily Azithromycin 500MG Oral Tablet 06/04/2024 Unknown By Mouth x1 NOW 2 TABLET 189821 RxNorm 2 TABLET By Mouth x1 NOW [...] Status Code Code System SEASONAL ALLERGY active 874174697 SNO MED-CT FAMILY PLANNING 06/20/2020 active 846788914 SNO MED-CT BITE OF INSECT active 228347781 SNOME D-CT ES OF VAGINA 08/07/2022 active 94872133 S NOMED-CT MENORRHAGIA active 658203272 SNOMED-C T PAINFUL NECK active 24022559 SNOMED- CT ADHD OF CHILDHOOD 07/22/2019 resolved 466052878 S NOMED-CT SEASONAL NASAL ALLERGY 07/22/2019 resolved 319024 001 SNOMED-CT HISTORY OF [place]PO[place] 07/22/2019 resolved 1343304 08 SNOMED-CT Allergies and Adverse Reactions Allergy Substance Reaction Severity Start Date Concern Status Co de Code System Active seasonal allergies Active No Known Drug Allergies Active 597181986 SNOMED-CT No Known Drug Allergies Active 366690508 SNOMED-CT Plan of Treatment Description Due Date Details Instructions DEPRESSION SCREENING DUE 06/20/2021 Personal Care Team Section Performer Name Performer Role Active Date Inactive Da xena
--- NOTE | 2025-02-17 09:42 | PM.OBTRLD ---
OB - Triage/Final Diagnosis Visit Information Comments/Additional reasons for admission: I have assessed the risk for this patient, Lani Ho, and determined that she would benefit from observation care. Final Diagnosis (1) Abdominal pain: Code(s): R10.9 - Unspecified abdominal pain Status: Acute
== END 2025-01-21 19:51 | disposition home or self-care (01) ==
PROVIDERS: Admitting Provider Obstetrics & Gynecology; Visit Provider Obstetrics & Gynecology
DX: O26.893 Other specified pregnancy related conditions, third trimester (principal); R10.9 Unspecified abdominal pain; Z3A.37 37 weeks gestation of pregnancy
CPT/HCPCS: A9270; G0378; G0379

== ENCOUNTER 2025-01-22 08:30 | Inpatient (IN) | payer OTHER, SELFPAY ==
[2025-01-22] VITALS (170 sets, daily range): BP systolic 108–158; BP diastolic 49–101; PULSE 38–157; RESP 16–20; TEMP 36.7–37.5; O2SAT 87–100; BMI 28.3
--- OUTSIDE RECORDS SUMMARY | 2025-01-22 09:07 | XMS_ITS ---
Author Organization Unknown Address [address] [place] [phone] Phone Care Team Providers Care Foreign Student Adviser Teacher Name Role Phone ATIYA Lezama MD Attending [...] em Smoking History Never smoker (Never Smoked) 772729450 SNOMED CT Sex Female Sexual Orientation Straight or Heterosexual 14935749 SNOMED CT Gender Identity Female [id number] [address] Vital Signs Vital Sign Value Unit [place] Value [place] Unit Date/Time Recent/Initial? Code Code System Body Mass Index 22.93 kg/m2 09/12/2022 17:59 Initial 82221 -5 [facility] Body Mass Index Percentile 67 % 09/12/2022 17:59 Initial 01181 -9 [facility] Systolic Blood Pressure 100 mm[Hg] 09/12/2022 17:59 Initial 8480- 6 [facility] Diastolic Blood Pressure 70 mm[Hg] 09/12/2022 17:59 Initial 8462- 4 [facility] Body Surface Area 1.81 m2 09/12/2022 17:59 Initial 3140- 1 [facility] Height 172.720 0 cm 68.00 in 09/12/2022 17:59 Initial 8302- 2 [facility] O2 Saturation 99 % 2021 17:59 Initial 62744 -5 [facility] Pulse 95.0 /min 09/12/2022 17:59 Initial 8867- 4 [facility] Respiration 18 /min 09/12/20 17:59 Initial 9279- 1 [facility] Temperature 36.9 Antonella 98.4 F 09/12/20 17:59 Initial 8310- 5 [facility] Weight 68.40 kg 150.80 lbs 09/12/2022 17:59 Initial 01643 -7 [facility] Medications Medication Start Date End Date Route Frequency Dose Code Code System Medication Instructions Home Meds Anel-28 30MCG-0.15MG-NA Oral Tablet 06/07/2022 09/12/2022 By Mouth Daily 1 TABLET 996447 RxNorm 1 TABLET By Mouth Daily Diflucan 150MG Oral Tablet 08/07/2022 09/12/2022 By Mouth x1 NOW 1 TABLET 248754 RxNorm 1 TABLET By Mouth x1 NOW FOR MARCH REPEAT IN 72 HOURS Radha 28 3MG-0.02MG Oral Tablet 09/12/2022 12/25/2022 By Mouth Once a day 1 TABLET RxNorm 1 TABLET By Mouth Once a day Medrol Dosepak 4MG Oral Tablet 12/25/2022 02/20/2023 By Mouth As Directed 1 PACK 615113 RxNorm 1 PACK By Mouth As Directed Methocarbamol 750MG Oral Tablet 12/25/2022 03/12/2023 By Mouth As needed every 8 hr 814355 RxNorm 1-2 TABLET By Mouth As needed every 8 hr Varna-28 30 MCG-0.15 MG; NA Oral Tablet 12/25/2022 03/12/2023 By Mouth Daily 1 TABLET 322889 RxNorm 1 TABLET By Mouth Daily Macrobid 100MG Oral Capsule 02/20/2023 03/12/2023 By mouth Twice a day 1 TABLET 086599 RxNorm 1 TABLET By mouth Twice a day X 7 DAYS Pyridium 100MG Oral Tablet 02/20/2023 03/12/2023 By mouth As needed every 8 hr 1 TABLET 5088842 RxNorm 1 TABLET By mouth As needed every 8 hr for urinary pain ZyrTEC Allergy 10MG Oral Capsule, Liquid Filled 03/12/2023 Unknown By Mouth Daily 1 CAPSULE 2989835 RxNorm 1 CAPSULE By Mouth Daily Fluticasone 0.05MG/1Actuatio n Nasal [place] 03/12/2023 Unknown Nasal Daily 1 Sprays 5604642 RxNorm 1 Spra ys Nasal Daily Azithromycin 500MG Oral Tablet 06/04/2024 Unknown By Mouth x1 NOW 2 TABLET 749956 RxNorm 2 TABLET By Mouth x1 NOW Assessment You had the following problems:SEASONAL ALLERGYFAMILY PLANNINGBITE OF INSECTCANDIDA OF VAGINAMENORRHAGIAPAINFUL NECK Assessment/Plan: 1) Menorrhagia: Will check TSH, T4, CBC, PT/INR, and CMP. Will discontinue the Anel and start her on Radha 1 tablet daily. 2) Contraceptive management: Patient is currently on Varna but this is not managing her periods [...] Status Code Code System SEASONAL ALLERGY active 505708806 SNO MED-CT FAMILY PLANNING 06/20/2020 active 279376724 SNO MED-CT BITE OF INSECT active 907092725 SNOME D-CT ES OF VAGINA 08/07/2022 active 32166206 S NOMED-CT MENORRHAGIA active 616161889 SNOMED-C T PAINFUL NECK active 05331178 SNOMED- CT ADHD OF CHILDHOOD 07/22/2019 resolved 746441533 S NOMED-CT SEASONAL NASAL ALLERGY 07/22/2019 resolved 784908 001 SNOMED-CT HISTORY OF CHICKENPOX 07/22/2019 resolved 5970868 08 SNOMED-CT Allergies and Adverse Reactions Allergy Substance Reaction Severity Start Date Concern Status Co de Code System Active seasonal allergies Active No Known Drug Allergies Active 037560860 SNOMED-CT No Known Drug Allergies Active 933585447 SNOMED-CT Plan of Treatment Description Due Date Details Instructions DEPRESSION SCREENING DUE 06/20/2021 Future Order Description Future Order Date Futu re Order Loinc: TSH 09/12/2022 LOINC: 40777-4 FREE T4 09/12/2022 LOINC: 3024-7 CBC W DIFF 09/12/2022 LOINC: 11396-8 COMPREHENSIVE METABOLIC PANEL 09/12/2022 L OINC: 52981-9 PT (PROTIME) 09/12/2022 LOINC: 6301-6 Encounters Encounter Diagnosis Start Date Code Code Sys tem Excessive and frequent menstruation 09/12/2022 22623 1003 SNOMED-CT Personal Care Team Section Performer Name Performer Role Active Date Inactive Da te Progress Notes [facility] 09/13/2022 09:49 Admission Date/Time: 09/12/2022 13:21 Rachael Andersen MD Clinic Visit Note Chief Complaint: DISCUSS BC Has the patient received a COVID Vaccine? Yes Nurse Note: this nurse note is documented by Opal Ly CMA 17 yr old female present to [facility] today to discuss BC History of Present Illness: An 17-year-old presents to [facility] today to discuss BC. Patient states since [...] CBC, PT/INR, and CMP. Will discontinue the Varna and start her on Radha 1 tablet daily. 2) Contraceptive management: Patient is currently on Varna but this is not managing her periods [...] and communicating with other health director of medicare Obtaining and/or reviewing separately obtained history Independent [...]
--- OUTSIDE RECORDS SUMMARY | 2025-01-22 09:07 | XMS_ITS ---
Author Organization Unknown Address [address], [place] [phone] Phone Care Team Providers Care Ladle Repairer Name Role Phone DEON RAFIQ Attending Unavailable Results CYTOMEGALOVIRUS AB IGG - Col lect Date/Time: 10/22/2024 14:12 [facility] ID: [id number] [address], [place], [id number] LOINC: 5124-3 Test Value Unit Reference Range Code Code System Flag CYTOMEGALOVIRUS ANTIBODY(IGG) >10.00 H PARVOVIRUS B19 IGG & IGM - C ollect Date/Time: 10/22/2024 14:12 [facility] ID: [id number] [address], [place], [phone] LOINC: 5273-8 Test Value Unit Reference Range Code Code System Flag PARVOVIRUS B19 ANTIBODY(IGG) 0.2 PARVOVIRUS B19 ANTIBODY(IGM) 0.2 Social History Type Status Start Date End Date Code Code Syst em Smoking History Never smoker (Never Smoked) 071323691 SNOMED CT Sex Female Sexual Orientation Straight or Heterosexual 68359101 SNOMED CT Gender Identity Female 96020851267182 [address] Medications Medication Start Date End Date Route Frequency Dose Code Code System Medication Instructions Home Meds ZyrTEC Allergy 10MG Oral Capsule, Liquid Filled 03/12/2023 Unknown By Mouth Daily 1 CAPSULE 3096918 RxNorm 1 CAPSULE By Mouth Daily Fluticasone 0.05MG/1Actuatio n Nasal [place] 03/12/2023 Unknown Nasal Daily 1 Sprays 2069936 RxNorm 1 Spra ys Nasal Daily Azithromycin 500MG Oral Tablet 06/04/2024 Unknown By Mouth x1 NOW 2 TABLET 204289 RxNorm 2 TABLET By Mouth x1 NOW [...] Status Code Code System SEASONAL ALLERGY active 948438933 SNO MED-CT FAMILY PLANNING 06/20/2020 active 430904521 SNO MED-CT BITE OF INSECT active 595525538 SNOME D-CT ES OF VAGINA 08/07/2022 active 87006211 S NOMED-CT MENORRHAGIA active 236449949 SNOMED-C T PAINFUL NECK active 32237028 SNOMED- CT ADHD OF CHILDHOOD 07/22/2019 resolved 758390558 S NOMED-CT SEASONAL NASAL ALLERGY 07/22/2019 resolved 162190 001 SNOMED-CT HISTORY OF CHICKENPOX 07/22/2019 resolved 1656544 08 SNOMED-CT Allergies and Adverse Reactions Allergy Substance Reaction Severity Start Date Concern Status Co de Code System Active seasonal allergies Active No Known Drug Allergies Active 349293184 SNOMED-CT No Known Drug Allergies Active 959958765 SNOMED-CT Plan of Treatment Description Due Date Details Instructions DEPRESSION SCREENING DUE 06/20/2021 Encounters Encounter Diagnosis Start Date Code Code Sys tem ultrasound scan abnormal 10/22/2024 606812 005 SNOMED-CT Personal Care Team Section Performer Name Performer Role Active Date Inactive Da xena
--- OUTSIDE RECORDS SUMMARY | 2025-01-22 09:07 | XMS_ITS ---
Author Organization Unknown Address [address] [place] [phone] Phone Care Team Providers Care Housing Quality Standard Inspector Name Role Phone ABBY AGUIRRE Attending Unavailable [...] em Smoking History Never smoker (Never Smoked) 503820430 SNOMED CT Sex Female Sexual Orientation Straight or Heterosexual 30038201 SNOMED CT Gender Identity Female [id number] [address] Vital Signs Vital Sign Value Unit [place] Value [place] Unit Date/Time Recent/Initial? Code Code System Body Mass Index 26.21 kg/m2 05/06/2023 12:01 Initial 55710 -5 [facility] Body Mass Index Percentile 85 % 05/06/2023 12:01 Initial 58361 -9 [facility] Systolic Blood Pressure 118 mm[Hg] 05/06/2023 12:01 Initial 8480- 6 [facility] Diastolic Blood Pressure 74 mm[Hg] 05/06/2023 12:01 Initial 8462- 4 [facility] Body Surface Area 3.35 m2 05/06/2023 12:01 Initial 3140- 1 [facility] Height 248.920 0 cm 98.00 in 05/06/2023 12:01 Initial 8302- 2 [facility] O2 Saturation 98 % 2022 12:01 Initial 55963 -5 [facility] Pulse 78.0 /min 05/06/2023 12:01 Initial 8867- 4 [facility] Temperature 36.4 Antonella 97.5 F 05/06/20 12:01 Initial 8310- 5 [facility] Weight 162.40 kg 358.03 lbs 05/06/2023 12:01 Initial 20700 -7 [facility] Medications Medication Start Date End Date Route Frequency Dose Code Code System Medication Instructions Home Meds ZyrTEC Allergy 10MG Oral Capsule, Liquid Filled 03/12/2023 Unknown By Mouth Daily 1 CAPSULE 3127123 RxNorm 1 CAPSULE By Mouth Daily Fluticasone 0.05MG/1Actuatio n Nasal [place] 03/12/2023 Unknown Nasal Daily 1 Sprays 3512463 RxNorm 1 Spra ys Nasal Daily Azithromycin 500MG Oral Tablet 06/04/2024 Unknown By Mouth x1 NOW 2 TABLET 974456 RxNorm 2 TABLET By Mouth x1 NOW [...] Status Code Code System SEASONAL ALLERGY active 808774148 SNO MED-CT FAMILY PLANNING 06/20/2020 active 219966252 SNO MED-CT BITE OF INSECT active 353443348 SNOME D-CT ES OF VAGINA 08/07/2022 active 02084810 S NOMED-CT MENORRHAGIA active 123703576 SNOMED-C T PAINFUL NECK active 20585091 SNOMED- CT ADHD OF CHILDHOOD 07/22/2019 resolved 467039877 S NOMED-CT SEASONAL NASAL ALLERGY 07/22/2019 resolved 289980 001 SNOMED-CT HISTORY OF CHICKENPOX 07/22/2019 resolved 2543582 08 SNOMED-CT Allergies and Adverse Reactions Allergy Substance Reaction Severity Start Date Concern Status Co de Code System Active seasonal allergies Active No Known Drug Allergies Active 169139795 SNOMED-CT No Known Drug Allergies Active 349489740 SNOMED-CT Plan of Treatment Description Due Date Details Instructions DEPRESSION SCREENING DUE 06/20/2021 Encounters Encounter Diagnosis Start Date Code Code Sys tem Injury of head 05/06/2023 55001962 SNOMED-CT Personal Care Team Section Performer Name Performer Role Active Date Inactive Da te Progress Notes [facility] 05/06/2023 13:28 Date of Service: 05/06/2023 Convenient [...] Instructions Start Date Prescribing Fluticasone 0.05MG/1Actuation Nasal [place] 1 Sprays Nasal Daily 03/12/2023 Blanco Gallego ZyrTEC Allergy 10MG Oral Capsule, Liquid Filled 1 CAPSULE By Mouth Daily 03/12/2023 Blanco Gallego This examination was transcribed using the Crysalin voice recognition system without human trailhead construction worker. In an effort to expedite patient care, this report has not been adjusted for typographical, or medical or syntax by a trained medical and health services manager.
--- OUTSIDE RECORDS SUMMARY | 2025-01-22 09:07 | XMS_ITS | Clinical Summary ---
Author Organization [facility] Address [address] [place] [address] Care Team Providers Care Steam Bone Press Tender Name Role Phone Geovanna Pryor NP Primary [...] age to complete this topic Care Teams Steam Bone Press Tender Relationship Specialty Start Date End Date Geovanna Pryor NP [address] [place] [address] PCP - General Nurse Practitioner Family 06/17/19 Geovanna Pryor NP [address] [place] [address] 06/17/19
--- OUTSIDE RECORDS SUMMARY | 2025-01-22 09:09 | XMS_ITS | Clinical Summary ---
Author Organization [facility] Address [address] [facility] [place] [address] Care Team Providers Care Ctc Operator Name Role Phone Faustino Matta MD Primary Care Provider [phone] Source Comments [facility],non-owned Affiliates and Associated Physician Practices is amultiple site organization consisting of ambulatory clinics and hospital sitesin [place], [place], [place] and [place]. This disclosure is being madepursuant to the Care Everywhere program and may not contain all information available regarding this patient. Last updated 18.[facility] Allergies No known active allergies Medications * [...] Type Department Care Team Description 12/15/2024 Telephone [facility] [address] [place] [address] Akosua Burns Appointment 11/24/2024 Orders Only [facility] - DIET AIDE [address] [place] [address] Jennifer Paul MD 11/19/2024 1:00 PM SUPPLY CHAIN PROCUREMENT MANAGER - 11/19/2024 11:59 PM SUPPLY CHAIN PROCUREMENT MANAGER Hospital Encounter [facility] [address] [place] [address] Tiff Arriaza MD Discharge Disposition: Home or Self Care 11/03/2024 Orders Only [facility] [address] [place] [address] Britany Garcia, RIPSAW OPERATOR-LINEN TECH Abnormal genetic test in ; Abnormal ultrasound 11/02/2024 Orders Only [facility] [address] [place] [address] Shania Mcintosh RN 11/02/2024 Telephone [facility] [address] [place] [address] Britany Garcia, RIPSAW OPERATOR-LINEN TECH LABS ONLY 10/26/2024 Telephone [facility] [address] [place] [address] Akosua Burns Appointment from Last 3 Months [...] CYTOMEGALOVIRUS AB IGG AVIDITY 11/24/2024 2:44 PM SUPPLY CHAIN PROCUREMENT MANAGER SONOGRAM - COMPLETE Routine 11/19/2024 1 :11 PM SUPPLY CHAIN PROCUREMENT MANAGER Encounter for ultrasound (HCC) Rh negative, antepartum (HCC) Rubella non-immune status, antepartum (HCC) Primigravida, antepartum ([facility]) 28 weeks gestation of ([facility]) 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 It has not been cleared or approved by FDA. This assay has been validated pursuant to the CLIA regulations and is used for clinical purposes. 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 [...] 3 lb 8 oz EFW by Hadlock ([id number]) appropriate Growth Overview Exam date [place] BPD [...] redraw of CMV Avidity Coding ====== Procedures 41117: US Preg Uterus Follow Up Carbon Ads PACS Anatomical Region Laterality Modality Other 11/19/2024 1:11 PM SUPPLY CHAIN PROCUREMENT MANAGER Jonny Cabrera DO [facility] ORDERABLES * (ABNORMAL) CYTOMEGALOVIRUS ANTIBODY IGG BLOOD (11/10/2024 1:50 PM SUPPLY CHAIN PROCUREMENT MANAGER) Cytomegalovirus Antibody IgG >10.00(H) U/mL [employer] Comment: U/mL Interpretation ----- <0.60 Negative 0.60-0.69 Equivocal > or = 0.70 Positive A positive result indicates that the patient has antibody to CMV. It does not differentiate between an active or past infection. Test Performed at: [facility] [address] [facility] [place] [address] PINEDA TAM MD 11/10/2024 1:50 PM SUPPLY CHAIN PROCUREMENT MANAGER 11/10/2024 1:53 PM SUPPLY CHAIN PROCUREMENT MANAGER Britany Garcia APRN-LINEN TECH LAB - CHEMI STRY ORDERABLES [facility] [address] [place] [address] from Last 3 Months Care Teams Ctc Operator Relationship Specialty Start Date End Date Faustino Matta MD [address] [address] PCP - General Pediatrics 08/05/12
--- OUTSIDE RECORDS SUMMARY | 2025-01-22 09:09 | XMS_ITS ---
Author Organization Unknown Address [address], [place] [phone] Phone Care Team Providers Care Ticket Dispenser Changer Name Role Phone mattyKlausSHERMAN Machado Social History Type Status Start Date End Date Code Code Syst em Smoking History Never smoker (Never Smoked) 017413464 SNOMED CT Sex Female Sexual Orientation Straight or Heterosexual 46255631 SNOMED CT Gender Identity Female 54998208565787 [address] Medications Medication Start Date End Date Route Frequency Dose Code Code System Medication Instructions Home Meds ZyrTEC Allergy 10MG Oral Capsule, Liquid Filled 03/12/2023 Unknown By Mouth Daily 1 CAPSULE 7104671 RxNorm 1 CAPSULE By Mouth Daily Fluticasone 0.05MG/1Actuatio n Nasal [place] 03/12/2023 Unknown Nasal Daily 1 Sprays 3019728 RxNorm 1 Spra ys Nasal Daily Azithromycin 500MG Oral Tablet 06/04/2024 Unknown By Mouth x1 NOW 2 TABLET 055023 RxNorm 2 TABLET By Mouth x1 NOW [...] Status Code Code System SEASONAL ALLERGY active 921843880 SNO MED-CT FAMILY PLANNING 06/20/2020 active 159622802 SNO MED-CT BITE OF INSECT active 517121909 SNOME D-CT ES OF VAGINA 08/07/2022 active 11111205 S NOMED-CT MENORRHAGIA active 206338159 SNOMED-C T PAINFUL NECK active 06499635 SNOMED- CT ADHD OF CHILDHOOD 07/22/2019 resolved 354523061 S NOMED-CT SEASONAL NASAL ALLERGY 07/22/2019 resolved 055935 001 SNOMED-CT HISTORY OF CHICKENPOX 07/22/2019 resolved 7063043 08 SNOMED-CT Allergies and Adverse Reactions Allergy Substance Reaction Severity Start Date Concern Status Co de Code System Active seasonal allergies Active No Known Drug Allergies Active 812657627 SNOMED-CT No Known Drug Allergies Active 101165402 SNOMED-CT Plan of Treatment Description Due Date Details Instructions DEPRESSION SCREENING DUE 06/20/2021 Encounters Encounter Diagnosis Start Date Code Code Sys tem Dysuria 06/03/2024 88319441 SNOMED-CT Personal Care Team Section Performer Name Performer Role Active Date Inactive Da te
--- OUTSIDE RECORDS SUMMARY | 2025-01-22 09:09 | XMS_ITS ---
Author Organization Unknown Address [address] [place] [phone] Phone Care Team Providers Care Professor Of Philosophy Name Role Phone Blanco Gallego Attending Unavailable [...] em Smoking History Never smoker (Never Smoked) 071914807 SNOMED CT Sex Female Sexual Orientation Straight or Heterosexual 96416130 SNOMED CT Gender Identity Female 83132024655963 [address] Medications Medication Start Date End Date Route Frequency Dose Code Code System Medication Instructions Home Meds Medrol Dosepak 4MG Oral Tablet 12/25/2022 02/20/2023 By Mouth As Directed 1 PACK 317238 RxNorm 1 PACK By Mouth As Directed Methocarbamol 750MG Oral Tablet 12/25/2022 03/12/2023 By Mouth As needed every 8 hr 254314 RxNorm 1-2 TABLET By Mouth As needed every 8 hr [place]-28 30 MCG-0.15 MG; NA Oral Tablet 12/25/2022 03/12/2023 By Mouth Daily 1 TABLET 371450 RxNorm 1 TABLET By Mouth Daily Macrobid 100MG Oral Capsule 02/20/2023 03/12/2023 By mouth Twice a day 1 TABLET 619565 RxNorm 1 TABLET By mouth Twice a day X 7 DAYS Pyridium 100MG Oral Tablet 02/20/2023 03/12/2023 By mouth As needed every 8 hr 1 TABLET 8545967 RxNorm 1 TABLET By mouth As needed every 8 hr for urinary pain ZyrTEC Allergy 10MG Oral Capsule, Liquid Filled 03/12/2023 Unknown By Mouth Daily 1 CAPSULE 2636390 RxNorm 1 CAPSULE By Mouth Daily Fluticasone 0.05MG/1Actuati on Nasal [place] 03/12/2023 Unknown Nasal Daily 1 Sprays 0928820 RxNorm 1 Spr ays Nasal Daily Azithromycin 500MG Oral Tablet 06/04/2024 Unknown By Mouth x1 NOW 2 TABLET 431646 RxNorm 2 TABLET By Mouth x1 NOW [...] Status Code Code System SEASONAL ALLERGY active 535252924 SNO MED-CT FAMILY PLANNING 06/20/2020 active 995840784 SNO MED-CT BITE OF INSECT active 280190647 SNOME D-CT ES OF VAGINA 08/07/2022 active 24875693 S NOMED-CT MENORRHAGIA active 763735890 SNOMED-C T PAINFUL NECK active 66351885 SNOMED- CT ADHD OF CHILDHOOD 07/22/2019 resolved 486737710 S NOMED-CT SEASONAL NASAL ALLERGY 07/22/2019 resolved 534055 001 SNOMED-CT HISTORY OF CHICKENPOX 07/22/2019 resolved 0502122 08 SNOMED-CT Allergies and Adverse Reactions Allergy Substance Reaction Severity Start Date Concern Status Co de Code System Active seasonal allergies Active No Known Drug Allergies Active 878459659 SNOMED-CT No Known Drug Allergies Active 613212313 SNOMED-CT Plan of Treatment Description Due Date Details Instructions DEPRESSION SCREENING DUE 06/20/2021 Personal Care Team Section Performer Name Performer Role Active Date Inactive David mccallum
--- OUTSIDE RECORDS SUMMARY | 2025-01-22 09:09 | XMS_ITS ---
Author Organization Unknown Address [address] [place] [phone] Phone Care Team Providers Care Sld Educational Aide Name Role Phone Blanco Gallego Attending Unavailable [...] ANTIGEN - Collec t Date/Time: 03/12/2023 14:51 [facility] ID: [id number] [address] [place], [place], [phone] LOINC: 6556-5 Test Value Unit Reference Range Code Code System Flag COVID RAPID ANTI NEGATIVE NORMAL: NEGATIVE LOT#: [id number] Exp Date: 12/07/2023 QC: ACCEPTABLE STREP A SCREEN - Collect Sha e/Time: 03/12/2023 14:50 [facility] ID: [id number] [address] [place], [place], [id number] LOINC: 6556-5 Test Value Unit Reference Range Code Code System Flag STREP SCREEN NEGATIVE NORMAL: NEGATIVE 6556-5 LOINC Lot#: [id number] Exp Date: 04/10/2024 QC STREP ACCEPTABLE Social History Type Status Start Date End Date Code Code Syst em Smoking History Never smoker (Never Smoked) 675816020 SNOMED CT Sex Female Sexual Orientation Straight or Heterosexual 33456744 SNOMED CT Gender Identity Female [id number] [address] Vital Signs Vital Sign Value Unit Garza Value Garza Unit Date/Time Recent/Initial? Code Code System Body Mass Index 23.57 kg/m2 03/12/2023 14:40 Initial 71835 -5 LOINC Body Mass Index Percentile 71 % 03/12/2023 14:40 Initial 00692 -9 LOINC Systolic Blood Pressure 100 mm[Hg] 03/12/2023 14:40 Initial 8480- 6 LOINC Diastolic Blood Pressure 68 mm[Hg] 03/12/2023 14:40 Initial 8462- 4 LOINC Body Surface Area 1.84 m2 03/12/2023 14:40 Initial 3140- 1 LOINC Height 172.720 0 cm 68.00 in 03/12/2023 14:40 Initial 8302- 2 INC O2 Saturation 95 % 2022 14:40 Initial 19355 -5 LOINC Pulse 56.0 /min 03/12/2023 14:40 Initial 8867- 4 LOINC Respiration 16 /min 03/12/20 14:40 Initial 9279- 1 INC Temperature 37.5 Antonella 99.5 F 03/12/20 14:40 Initial 8310- 5 [facility] Weight 70.31 kg 155.00 lbs 03/12/2023 14:40 Initial 37005 -7 [facility] Medications Medication Start Date End Date Route Frequency Dose Code Code System Medication Instructions Home Meds Methocarbamol 750MG Oral Tablet 12/25/2022 03/12/2023 By Mouth As needed every 8 hr 351247 RxNorm 1-2 TABLET By Mouth As needed every 8 hr [place]-28 30 MCG-0.15 MG; NA Oral Tablet 12/25/2022 03/12/2023 By Mouth Daily 1 TABLET 315582 RxNorm 1 TABLET By Mouth Daily Macrobid 100MG Oral Capsule 02/20/2023 03/12/2023 By mouth Twice a day 1 TABLET 774961 RxNorm 1 TABLET By mouth Twice a day X 7 DAYS Pyridium 100MG Oral Tablet 02/20/2023 03/12/2023 By mouth As needed every 8 hr 1 TABLET 0124564 RxNorm 1 TABLET By mouth As needed every 8 hr for urinary pain ZyrTEC Allergy 10MG Oral Capsule, Liquid Filled 03/12/2023 Unknown By Mouth Daily 1 CAPSULE 6447672 RxNorm 1 CAPSULE By Mouth Daily Fluticasone 0.05MG/1Actuati on Nasal [place] 03/12/2023 Unknown Nasal Daily 1 Sprays 9462177 RxNorm 1 Spr ays Nasal Daily Azithromycin 500MG Oral Tablet 06/04/2024 Unknown By Mouth x1 NOW 2 TABLET 240313 RxNorm 2 TABLET By Mouth x1 NOW [...] Status Code Code System SEASONAL ALLERGY active 982019584 SNO MED-CT FAMILY PLANNING 06/20/2020 active 387082482 SNO MED-CT BITE OF INSECT active 779628485 SNOME D-CT ES OF VAGINA 08/07/2022 active 71712596 S NOMED-CT MENORRHAGIA active 291916600 SNOMED-C T PAINFUL NECK active 45676867 SNOMED- CT ADHD OF CHILDHOOD 07/22/2019 resolved 743015687 S NOMED-CT SEASONAL NASAL ALLERGY 07/22/2019 resolved 107057 001 SNOMED-CT HISTORY OF CHICKENPOX 07/22/2019 resolved 2826003 08 SNOMED-CT Allergies and Adverse Reactions Allergy Substance Reaction Severity Start Date Concern Status Co de Code System Active seasonal allergies Active No Known Drug Allergies Active 007990541 SNOMED-CT No Known Drug Allergies Active 202148085 SNOMED-CT Plan of Treatment Description Due Date Details Instructions DEPRESSION SCREENING DUE 06/20/2021 Encounters Encounter Diagnosis Start Date Code Code Sys tem Seasonal allergic rhinitis 03/12/2023 594386021 S NOMED-CT Personal Care Team Section Performer Name Performer Role Active Date Inactive Da te Progress Notes [facility] 03/12/2023 15:06 Admission Date/Time: 03/12/2023 11:24 SMITA [...] is an 17 yo female presents to [facility] today for sore throat [...] records Referring and communicating with other health child care leader x Obtaining and/or reviewing separately obtained history Independent interpretation of results and communicating results to the patient/family/caregiver x Performing a medically appropriate examination/evaluation Care coordination (not reported separately) x Discharge instructions given to patient. Ordered & Completed Meds Table: No Current Medications Available Discharge Med List: Discharge Medications: No Discharge Medications Available [facility] 03/12/2023 15:20 Current Date/Time: 03/12/2023 15:03 Patient Name: NELA MANZANARES was seen at [facility] [phone] on Date of Service: 03/12/2023 . They may return to school on 03/13/2023 with No restrictions . .
--- OUTSIDE RECORDS SUMMARY | 2025-01-22 09:09 | XMS_ITS ---
Author Organization Unknown Address [address] [place] [phone] Phone Care Team Providers Care Psychiatry Instructor Name Role Phone JOSUE FULTON Attending Unavailable [...] MICR O - Collect Date/Time: 02/20/2023 18:44 [facility] ID: [id number] [address] [place] [address], [phone] LOINC: Test Value Unit Reference Range Code [...] TEST - Colle ct Date/Time: 02/20/2023 18:43 [facility] ID: [id number] [address] [place] [address], [phone] LOINC: Test Value Unit Reference Range Code Code System Flag TEST PERFORMED URINE PREG (URINE) NEGATIVE LOT#: [id number] EXP DATE: 2023-12-11 QC: ACCEPTABLE Social History Type Status Start Date End Date Code Code Syst em Smoking History Never smoker (Never Smoked) 123705278 SNOMED CT Sex Female Sexual Orientation Straight or Heterosexual 09683016 SNOMED CT Gender Identity Female 83769056194723 [address] Vital Signs Vital Sign Value Unit [facility] Unit Date/Time Recent/Initial? Code Code System Body Mass Index 24.50 kg/m2 02/20/2023 18:36 Initial 34572 -5 LOINC Body Mass Index Percentile 77 % 02/20/2023 18:36 Initial 36566 -9 LOINC Systolic Blood Pressure 112 mm[Hg] 02/20/2023 18:36 Initial 8480- 6 LOINC Diastolic Blood Pressure 70 mm[Hg] 02/20/2023 18:36 Initial 8462- 4 [facility] Body Surface Area 1.85 m2 02/20/2023 18:36 Initial 3140- 1 LOINC Height 171.450 0 cm 67.50 in 02/20/2023 18:36 Initial 8302- 2 [facility] O2 Saturation 98 % 2022 18:36 Initial 04712 -5 [facility] Pulse 91.0 /min 02/20/2023 18:36 Initial 8867- 4 [facility] Temperature 37.2 Antonella 98.9 F 02/21/20 18:36 Initial 8310- 5 [facility] Weight 72.03 kg 158.80 lbs 02/20/2023 18:36 Initial 18287 -7 [facility] Medications Medication Start Date End Date Route Frequency Dose Code Code System Medication Instructions Home Meds Medrol Dosepak 4MG Oral Tablet 12/25/2022 02/20/2023 By Mouth As Directed 1 PACK 094180 RxNorm 1 PACK By Mouth As Directed Methocarbamol 750MG Oral Tablet 12/25/2022 03/12/2023 By Mouth As needed every 8 hr 374670 RxNorm 1-2 TABLET By Mouth As needed every 8 hr [place]-28 30 MCG-0.15 MG; NA Oral Tablet 12/25/2022 03/12/2023 By Mouth Daily 1 TABLET 805938 RxNorm 1 TABLET By Mouth Daily Macrobid 100MG Oral Capsule 02/20/2023 03/12/2023 By mouth Twice a day 1 TABLET 387088 RxNorm 1 TABLET By mouth Twice a day X 7 DAYS Pyridium 100MG Oral Tablet 02/20/2023 03/12/2023 By mouth As needed every 8 hr 1 TABLET 0714833 RxNorm 1 TABLET By mouth As needed every 8 hr for urinary pain ZyrTEC Allergy 10MG Oral Capsule, Liquid Filled 03/12/2023 Unknown By Mouth Daily 1 CAPSULE 3564429 RxNorm 1 CAPSULE By Mouth Daily Fluticasone 0.05MG/1Actuati on Nasal [place] 03/12/2023 Unknown Nasal Daily 1 Sprays 4456556 RxNorm 1 Spr ays Nasal Daily Azithromycin 500MG Oral Tablet 06/04/2024 Unknown By Mouth x1 NOW 2 TABLET 361444 RxNorm 2 TABLET By Mouth x1 NOW [...] Status Code Code System SEASONAL ALLERGY active 294397221 SNO MED-CT FAMILY PLANNING 06/20/2020 active 575596594 SNO MED-CT BITE OF INSECT active 370255880 SNOME D-CT ES OF VAGINA 08/07/2022 active 59280562 S NOMED-CT MENORRHAGIA active 812957765 SNOMED-C T PAINFUL NECK active 09731147 SNOMED- CT ADHD OF CHILDHOOD 07/22/2019 resolved 601883737 S NOMED-CT SEASONAL NASAL ALLERGY 07/22/2019 resolved 816075 001 SNOMED-CT HISTORY OF CHICKENPOX 07/22/2019 resolved 8601890 08 SNOMED-CT Allergies and Adverse Reactions Allergy Substance Reaction Severity Start Date Concern Status Co de Code System Active seasonal allergies Active No Known Drug Allergies Active 759024041 SNOMED-CT No Known Drug Allergies Active 010536123 SNOMED-CT Plan of Treatment Description Due Date Details Instructions DEPRESSION SCREENING DUE 06/20/2021 Future Order Description Future Order Date Futu re Order Loinc: CULTURE URINE 02/20/2023 LOINC: 630-4 TRICHOMONAS VAGINALIS FEMALE RNA QUAL LOINC: 05247-4 GC/CHLAMYDIA PCR [place] 02/20/2023 LOINC: 448 06-8 CULTURE YEAST, WITH IDENTIFICATION 02/20/2023 LOINC: 32061-0 BACTERIAL VAGINOSIS RAPID TEST 02/20/2023 LOINC: 6410-5 Encounters Encounter Diagnosis Start Date Code Code Sys tem Urinary tract infectious disease 02/20/2023 31714738 SNOMED-CT Personal Care Team Section Performer Name Performer Role Active Date Inactive Da te Progress Notes [facility] 02/20/2023 19:27 Admission Date/Time: 02/20/2023 18:07 Convenient [...] up. This examination was transcribed using the [employer] voice recognition system without human manager of corporate. In an effort to expedite patient care, this report has not been adjusted for typographical, or medical or syntax by a trained medical billing manager. Allergy Table Allergen Type Reaction seasonal [...] NEGATIVE 02/20/2023 18:38 02/20/2023 18:43 final LOT#: [id number] 02/20/2023 18:38 02/20/2023 18:43 final EXP DATE: [...] day X 7 DAYS 02/20/2023 JOSUE FULTON [place]-28 30 MCG-0.15 MG; NA Oral Tablet 1 TABLET By Mouth Daily 12/25/2022 Blanco Gallego Methocarbamol 750MG Oral Tablet 1-2 TABLET By Mouth As needed every 8 hr 12/25/2022 Blanco Gallego
--- OUTSIDE RECORDS SUMMARY | 2025-01-22 09:10 | XMS_ITS | Referral Summary ---
Author Organization [facility] Address [address] [place] [address] Care Team Providers Care Domestic Helper Name Role Phone Faustino Matta MD Primary Care Provider [phone] Source Comments [facility],non-owned Affiliates and Associated Physician Practices is amultiple site organization consisting of ambulatory clinics and hospital sitesin [place], [place], [place] and [place]. This disclosure is being madepursuant to the Care Everywhere program and may not contain all information available regarding this patient. Last updated 18.[facility] Encounters Date Type Department Care Team Description 12/15/2024 Telephone [facility] [address] [place] [address] Akosua Burns Appointment 11/24/2024 Orders Only [facility] [employer]BER [address] [place] [phone] Jennifer Paul MD 11/19/2024 1:00 PM CONDENSER TESTER - 11/19/2024 11:59 PM CONDENSER TESTER Hospital Encounter [facility] [address] [place] [address] Tiff Arriaza MD Discharge Disposition: Home or Self Care 11/03/2024 Orders Only [facility] [address] [place] [address] Britany Garcia, TAILINGS DAM LABORER-CUSTODIAN ATHLETIC EQUIPMENT Abnormal genetic test in ; Abnormal ultrasound 11/02/2024 Orders Only [facility] [place] [address] Shania Mcintosh RN 11/02/2024 Telephone [facility] [address] [place] [address] Britany Garcia, TAILINGS DAM LABORER-CUSTODIAN ATHLETIC EQUIPMENT LABS ONLY 10/26/2024 Telephone [facility] [address] [place] [address] Akosua Burns Appointment from Last 3 Months [...] CYTOMEGALOVIRUS AB IGG AVIDITY 11/24/2024 2:44 PM CONDENSER TESTER SONOGRAM - COMPLETE Routine 11/19/2024 1 :11 PM CONDENSER TESTER Encounter for ultrasound (HCC) Rh negative, antepartum (HCC) Rubella non-immune status, antepartum (HCC) Primigravida, antepartum ([facility]) 28 weeks gestation of ([facility]) 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 It has not been cleared or approved by FDA. This assay has been validated pursuant to the CLIA regulations and is used for clinical purposes. 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 [...] 3 lb 8 oz EFW by Hadlock ([id number]) appropriate Growth Overview Exam date [place] BPD [...] redraw of CMV Avidity Coding ====== Procedures 16049: US Preg Uterus Follow Up [employer] PACS Anatomical Region Laterality Modality Other 11/19/2024 1:11 PM CONDENSER TESTER Jonny Ruizcherie [facility] ORDERABLES * (ABNORMAL) CYTOMEGALOVIRUS ANTIBODY IGG BLOOD (11/10/2024 1:50 PM CONDENSER TESTER) Cytomegalovirus Antibody IgG >10.00(H) U/mL [facility] Comment: U/mL Interpretation ----- <0.60 Negative 0.60-0.69 Equivocal > or = 0.70 Positive A positive result indicates that the patient has antibody to CMV. It does not differentiate between an active or past infection. Test Performed at: [facility] [address] [place] [address] PINEDA TAM MD 11/10/2024 1:50 PM CONDENSER TESTER 11/10/2024 1:53 PM CONDENSER TESTER Britany Garcia TAILINGS DAM LABORER-CUSTODIAN ATHLETIC EQUIPMENT LAB - CHEMI STRY ORDERABLES [facility] [address] [place] [address] from Last 3 Months Care Teams Domestic Helper Relationship Specialty Start Date End Date Faustino Matta MD [address] [address] PCP - General Pediatrics 08/05/12
--- OUTSIDE RECORDS SUMMARY | 2025-01-22 09:11 | XMS_ITS ---
Author Organization Unknown Address [address] [place] [address] [phone] Phone Care Team Providers Care Ware Finisher Name Role Phone TABATHA RODGERS Attending Unavailable [...] em Smoking History Never smoker (Never Smoked) 544958542 SNOMED CT Sex Female Sexual Orientation Straight or Heterosexual 91038160 SNOMED CT Gender Identity Female 84768049034773 [address] Medications Medication Start Date End Date Route Frequency Dose Code Code System Medication Instructions Home Meds predniSONE 50MG Oral Tablet 06/07/2022 07/31/2022 By Mouth Daily 1 TABLET 928368 RxNorm 1 TABLET By Mouth Daily [place]ro[place]-28 30MCG-0.15MG-NA Oral Tablet 06/07/2022 09/12/2022 By Mouth Daily 1 TABLET 475942 RxNorm 1 TABLET By Mouth Daily Diflucan 150MG Oral Tablet 08/07/2022 09/12/2022 By Mouth x1 NOW 1 TABLET 812835 RxNorm 1 TABLET By Mouth x1 NOW FOR MARCH REPEAT IN 72 HOURS Radha 28 3MG-0.02MG Oral Tablet 09/12/2022 12/25/2022 By Mouth Once a day 1 TABLET RxNorm 1 TABLET By Mouth Once a day Medrol Dosepak 4MG Oral Tablet 12/25/2022 02/20/2023 By Mouth As Directed 1 PACK 687695 RxNorm 1 PACK By Mouth As Directed Methocarbamol 750MG Oral Tablet 12/25/2022 03/12/2023 By Mouth As needed every 8 hr 212957 RxNorm 1-2 TABLET By Mouth As needed every 8 hr [place]-28 30 MCG-0.15 MG; NA Oral Tablet 12/25/2022 03/12/2023 By Mouth Daily 1 TABLET 114654 RxNorm 1 TABLET By Mouth Daily Macrobid 100MG Oral Capsule 02/20/2023 03/12/2023 By mouth Twice a day 1 TABLET 223807 RxNorm 1 TABLET By mouth Twice a day X 7 DAYS Pyridium 100MG Oral Tablet 02/20/2023 03/12/2023 By mouth As needed every 8 hr 1 TABLET 4138954 RxNorm 1 TABLET By mouth As needed every 8 hr for urinary pain ZyrTEC Allergy 10MG Oral Capsule, Liquid Filled 03/12/2023 Unknown By Mouth Daily 1 CAPSULE 8790963 RxNorm 1 CAPSULE By Mouth Daily Fluticasone 0.05MG/1Actuati on Nasal [place] 03/12/2023 Unknown Nasal Daily 1 Sprays 6861599 RxNorm 1 Spr ays Nasal Daily Azithromycin 500MG Oral Tablet 06/04/2024 Unknown By Mouth x1 NOW 2 TABLET 256883 RxNorm 2 TABLET By Mouth x1 NOW [...] Status Code Code System SEASONAL ALLERGY active 054498056 SNO MED-CT FAMILY PLANNING 06/20/2020 active 964840460 SNO MED-CT BITE OF INSECT active 892756850 SNOME D-CT ES OF VAGINA 08/07/2022 active 55628659 S NOMED-CT MENORRHAGIA active 554816832 SNOMED-C T PAINFUL NECK active 42003160 SNOMED- CT ADHD OF CHILDHOOD 07/22/2019 resolved 144057270 S NOMED-CT SEASONAL NASAL ALLERGY 07/22/2019 resolved 448933 001 SNOMED-CT HISTORY OF CHICKENPOX 07/22/2019 resolved 5370571 08 SNOMED-CT Allergies and Adverse Reactions Allergy Substance Reaction Severity Start Date Concern Status Co de Code System Active seasonal allergies Active No Known Drug Allergies Active 618882841 SNOMED-CT No Known Drug Allergies Active 232930530 SNOMED-CT Plan of Treatment Description Due Date Details Instructions DEPRESSION SCREENING DUE 06/20/2021 Personal Care Team Section Performer Name Performer Role Active Date Inactive David mccallum
--- OUTSIDE RECORDS SUMMARY | 2025-01-22 09:11 | XMS_ITS | Patient Health Summary ---
Author Organization [facility] Address [address] [place] [address] Care Team Providers Care Access Rep Name Role Phone Faustino Matta MD Primary Care Provider [phone] Note from [facility],non-owned Affiliates and Associated Physician Practices is amultiple site organization consisting of ambulatory clinics and hospital sitesin [place], [place], [place] and [place]. This disclosure is being madepursuant to the Care Everywhere program and may not contain all information available regarding this patient. Last updated 18.[facility] Allergies No known active allergies [...] CYTOMEGALOVIRUS AB IGG AVIDITY (11/24/2024 2:44 PM INSTRUCTIONAL SUPERVISOR) [facility] Cytomegalovirus Antibody IgG Avidity Index 0.90 [facility] [...] analytical performance characteristics have been determined by [employer]. It has not been cleared or approved by FDA. This assay has been validated pursuant to the CLIA regulations and is used for clinical purposes. For additional information, please refer to http://education.[employer]/faq/FFK987 (This link is being provided for informational/ educational purposes only.) Test Performed at: [facility] [address] [place] [address] KWAKU SUMMERS MD,PHD,STARR 11/24/2024 2:44 PM INSTRUCTIONAL SUPERVISOR 11/24/2024 2:45 PM INSTRUCTIONAL SUPERVISOR Jennifer Paul MD LAB - SEROLOGY LEIF GONZALEZ [facility] [address] [place] [address] * SONOGRAM - COMPLETE (11/19/2024 1:11 PM INSTRUCTIONAL SUPERVISOR) Only the most recent of4 resultswithin the [...] 3 lb 8 oz EFW by Hadlock ([id number]) appropriate Growth Overview Exam date [place] BPD [...] redraw of CMV Avidity Coding ====== Procedures 50406: US Preg Uterus Follow Up [employer] PACS Anatomical Region Laterality Modality Other 11/19/2024 1:11 PM INSTRUCTIONAL SUPERVISOR Jonny Cabrera DO [facility] ORDERABLES * (ABNORMAL) CYTOMEGALOVIRUS ANTIBODY IGG BLOOD (11/10/2024 1:50 PM INSTRUCTIONAL SUPERVISOR) Cytomegalovirus Antibody IgG >10.00(H) U/mL [facility] Comment: U/mL Interpretation ----- <0.60 Negative 0.60-0.69 Equivocal > or = 0.70 Positive A positive result indicates that the patient has antibody to CMV. It does not differentiate between an active or past infection. Test Performed at: [facility] [address] [place] [address] PINEDA TAM MD 11/10/2024 1:50 PM INSTRUCTIONAL SUPERVISOR 11/10/2024 1:53 PM INSTRUCTIONAL SUPERVISOR Britany Garcia APRN-PEANUT VENDOR LAB - CHEMI STRY ORDERABLES [facility] [address] [place] [address] Care Teams Access Rep Relationship Specialty Start Date End Date Faustino Matta MD [address] [facility] [address] [place] [address] PCP - General Pediatrics 08/05/12
--- OUTSIDE RECORDS SUMMARY | 2025-01-22 09:11 | XMS_ITS ---
Author Organization Unknown Address [address], [place] [phone] Phone Care Team Providers Care Assistant Store Manager Sales Name Role Phone Shahanacristian Opal Attending Unavailable Results BACTERIAL VAGINOSIS RAPID TE ST - Collect Date/Time: 07/31/2022 17:20 [facility] ID: [id number] [address], [place], [phone] LOINC: 6410-5 Test Value Unit Reference Range Code Code System Flag BACTERIAL VAGINOSIS NEGATIVE NORMAL: NEGATIVE CULTURE YEAST, WITH IDENTIFI CATION - Collect Date/Time: 07/31/2022 17:19 [facility] ID: [id number] [address], [place], [phone] LOINC: 5048-4 Test Value Unit Reference Range Code Code System Flag SOURCE: VAGINAL STATUS: FINAL ISOLATE 1: Margoth albicans A CULTURE: Culture in progress TRICHOMONAS VAGINALIS FEMALE RNA QUAL - Collect Date/Time: 07/31/2022 17:19 [facility] ID: [id number] [address], [place], [phone] LOINC: 85151-9 Test Value Unit Reference Range Code Code System Flag TRICHOMONAS VAGINALISRNA, QL TMA NOT DETECTED NOT DETECTED CHLAMYDIA/GC URINE RNA, TMA APTIMA - Collect Date/Time: 07/31/2022 17:19 [facility] ID: [id number] [address], [place], [phone] LOINC: 5048-4 Test Value Unit Reference Range Code Code System Flag CHLAMYDIA TRACHOMATISRNA, TMA, UROGENITAL NOT DETECTED NOT DETECTED NEISSERIA GONORRHOEAERNA, TMA, UROGENITAL NOT DETECTED NOT DETECTED Social History Type Status Start Date End Date Code Code Syst em Smoking History Never smoker (Never Smoked) 676389958 SNOMED CT Sex Female Sexual Orientation Straight or Heterosexual 94396726 SNOMED CT Gender Identity Female [id number] [address] Medications Medication Start Date End Date Route Frequency Dose Code Code System Medication Instructions Home Meds Anel-28 30MCG-0.15MG-NA Oral Tablet 06/07/2022 09/12/2022 By Mouth Daily 1 TABLET 356253 RxNorm 1 TABLET By Mouth Daily Diflucan [...] 02/20/2023 By Mouth As Directed 1 PACK 096833 RxNorm 1 PACK By Mouth As Directed Methocarbamol 750MG Oral Tablet 12/25/2022 03/12/2023 By Mouth As needed every 8 hr 748791 RxNorm 1-2 TABLET By Mouth As needed every 8 hr [place]-28 30 MCG-0.15 MG; NA Oral Tablet 12/25/2022 03/12/2023 By Mouth Daily 1 TABLET 164790 RxNorm 1 TABLET By Mouth Daily Macrobid 100MG Oral Capsule 02/20/2023 03/12/2023 By mouth Twice a day 1 TABLET 328306 RxNorm 1 TABLET By mouth Twice a day X 7 DAYS Pyridium 100MG Oral Tablet 02/20/2023 03/12/2023 By mouth As needed every 8 hr 1 TABLET 6838114 RxNorm 1 TABLET By mouth As needed every 8 hr for urinary pain ZyrTEC Allergy 10MG Oral Capsule, Liquid Filled 03/12/2023 Unknown By Mouth Daily 1 CAPSULE 4908809 RxNorm 1 CAPSULE By Mouth Daily Fluticasone 0.05MG/1Actuatio n Nasal [place] 03/12/2023 Unknown Nasal Daily 1 Sprays 9887711 RxNorm 1 Spra ys Nasal Daily Azithromycin 500MG Oral Tablet 06/04/2024 Unknown By Mouth x1 NOW 2 TABLET 637386 RxNorm 2 TABLET By Mouth x1 NOW [...] Status Code Code System SEASONAL ALLERGY active 642896218 SNO MED-CT FAMILY PLANNING 06/20/2020 active 501327626 SNO MED-CT BITE OF INSECT active 714971989 SNOME D-CT MARGOTH OF VAGINA 08/07/2022 active 49285283 S NOMED-CT MENORRHAGIA active 220481511 SNOMED-C T PAINFUL NECK active 02557179 SNOMED- CT ADHD OF CHILDHOOD 07/22/2019 resolved 639408540 S NOMED-CT SEASONAL NASAL ALLERGY 07/22/2019 resolved 725562 001 SNOMED-CT HISTORY OF CHICKENPOX 07/22/2019 resolved 5925899 08 SNOMED-CT Allergies and Adverse Reactions Allergy Substance Reaction Severity Start Date Concern Status Co de Code System Active seasonal allergies Active No Known Drug Allergies Active 797143563 SNOMED-CT No Known Drug Allergies Active 822251071 SNOMED-CT Plan of Treatment Description Due Date Details Instructions DEPRESSION SCREENING DUE 06/20/2021 Encounters Encounter Diagnosis Start Date Code Code Sys tem Noninflammatory disorder of the vagina 07/31/2022 22 418158 SNOMED-CT Personal Care Team Section Performer Name Performer Role Active Date Inactive Da te
--- OUTSIDE RECORDS SUMMARY | 2025-01-22 09:11 | XMS_ITS ---
Author Organization Unknown Address [address] [place] [phone] Phone Care Team Providers Care Blood Bank Laboratory Technologist Name Role Phone VIRAL Brody Attending Unavailable [...] MICR O - Collect Date/Time: 06/03/2024 15:21 [facility] ID: [id number] [address] [place] [address], [phone] LOINC: Test Value Unit Reference Range Code [...] em Smoking History Never smoker (Never Smoked) 363473892 SNOMED CT Sex Female Sexual Orientation Straight or Heterosexual 76251753 SNOMED CT Gender Identity Female [id number] [address] Vital Signs Vital Sign Value Unit [place] Value [place] Unit Date/Time Recent/Initial? Code Code System Body Mass Index 25.85 kg/m2 06/03/2024 14:31 Initial 31920 -5 [facility] Body Mass Index Percentile 82 % 06/03/2024 14:31 Initial 14900 -9 [facility] Systolic Blood Pressure 118 mm[Hg] 06/03/2024 15:46 Most Recent 8480- 6 LOINC Diastolic Blood Pressure 82 mm[Hg] 06/03/2024 15:46 Most Recent 8462- 4 [facility] Systolic Blood Pressure 136 mm[Hg] 06/03/2024 14:31 Initial 8480- 6 [facility] Diastolic Blood Pressure 95 mm[Hg] 06/03/2024 14:31 Initial 8462- 4 [facility] Body Surface Area 1.92 m2 06/03/2024 14:31 Initial 3140- 1 LOINC Height 172.720 0 cm 68.00 in 06/03/2024 14:31 Initial 8302- 2 [facility] O2 Saturation 100 % 2023 14:31 Initial 25030 -5 [facility] Pulse 93.0 /min 06/03/2024 14:31 Initial 8867- 4 LOINC Temperature 36.7 Antonella 98.0 F 06/03/20 14:31 Initial 8310- 5 [facility] Weight 77.11 kg 170.00 lbs 06/03/2024 14:31 Initial 47082 -7 [facility] Medications Medication Start Date End Date Route Frequency Dose Code Code System Medication Instructions Home Meds ZyrTEC Allergy 10MG Oral Capsule, Liquid Filled 03/12/2023 Unknown By Mouth Daily 1 CAPSULE 6375121 RxNorm 1 CAPSULE By Mouth Daily Fluticasone 0.05MG/1Actuatio n Nasal [place] 03/12/2023 Unknown Nasal Daily 1 Sprays 8193987 RxNorm 1 Spra ys Nasal Daily Azithromycin 500MG Oral Tablet 06/04/2024 Unknown By Mouth x1 NOW 2 TABLET 940083 RxNorm 2 TABLET By Mouth x1 NOW [...] sex practices. 3. -Keep follow up with [facility] for next week. -Given handouts for [...] up. This examination was transcribed using the [employer] voice recognition system without a human tire groover. To expedite patient care, this report has not been adjusted for typographical, or medical, or syntax by a trained medical intern. Hospital Discharge Instructions Should you have any questions prior to discharge, please contact a member of your healthcare team. If you have left the hospital and have any questions, please contact your primary care physician. Reason For Referral No Data Found Problems Problem Start Date Resolved Date Status Code Code System SEASONAL ALLERGY active 792092137 SNO MED-CT FAMILY PLANNING 06/20/2020 active 618876049 SNO MED-CT BITE OF INSECT active 828836763 SNOME D-CT ES OF VAGINA 08/07/2022 active 43377038 S NOMED-CT MENORRHAGIA active 568844521 SNOMED-C T PAINFUL NECK active 10847126 SNOMED- CT ADHD OF CHILDHOOD 07/22/2019 resolved 043199758 S NOMED-CT SEASONAL NASAL ALLERGY 07/22/2019 resolved 836344 001 SNOMED-CT HISTORY OF CH[place]ENPOX 07/22/2019 resolved 3129015 08 SNOMED-CT Allergies and Adverse Reactions Allergy Substance Reaction Severity Start Date Concern Status Co de Code System Active seasonal allergies Active No Known Drug Allergies Active 614540645 SNOMED-CT No Known Drug Allergies Active 055677029 SNOMED-CT Plan of Treatment Description Due Date Details Instructions DEPRESSION SCREENING DUE 06/20/2021 Future Order Description Future Order Date Futu re Order Loinc: TRICHOMONAS VAGINALIS FEMALE RNA QUAL LOINC: 89410-8 GC PCR PENDING SALE TO [facility] 06/03/2024 LOINC: 67928-0 CHLAMYDIA PCR PENDING SALE TO [facility] 06/03/2024 LOINC: 26515- 5 BACTERIAL VAGINOSIS RAPID TEST 06/03/2024 LOINC: 6410-5 CULTURE YEAST, WITH IDENTIFICATION 06/03/2024 LOINC: 75932-3 Encounters Encounter Diagnosis Start Date Code Code Sys tem Acute vaginitis 06/03/2024 26135228 SNOMED-CT Personal Care Team Section Performer Name [...] April. She has an appointment scheduled with [facility] for an OBGYN next week. She [...] sex practices. 3. -Keep follow up with [facility] for next week. -Given handouts for [...] up. This examination was transcribed using the [employer] voice recognition system without a human tire groover. To expedite patient care, this report has not been adjusted for typographical, or medical, or syntax by a trained medical intern. Meds Given This Visit: Meds ordered and administered this visit: No Current Medications Available Discharge Med List: Discharge Medications Medication Special Instructions Start Date Prescribing Fluticasone 0.05MG/1Actuation Nasal [place] 1 Sprays Nasal Daily 03/12/2023 Blanco Gallego ZyrTEC Allergy 10MG Oral Capsule, Liquid Filled 1 CAPSULE By Mouth Daily 03/12/2023 Blanco Gallego
--- OUTSIDE RECORDS SUMMARY | 2025-01-22 09:12 | XMS_ITS ---
Author Organization Unknown Address [address] [place] [phone] Phone Care Team Providers Care Washing Machine Loader Name Role Phone TABATHA RODGERS Attending Unavailable [...] MICR O - Collect Date/Time: 07/31/2022 17:14 [facility] ID: [id number] [address] [place] [address], [phone] LOINC: Test Value Unit Reference Range Code [...] TEST - Colle ct Date/Time: 07/31/2022 17:12 [facility] ID: [id number] [address] [place] [address], [phone] LOINC: Test Value Unit Reference Range Code Code System Flag TEST PERFORMED URINE PREG (URINE) NEGATIVE LOT#: [id number] EXP DATE: 2023-10-10 QC: ACCEPTABLE Social History Type Status Start Date End Date Code Code Syst em Smoking History Never smoker (Never Smoked) 233799225 SNOMED CT Sex Female Sexual Orientation Straight or Heterosexual 74747130 SNOMED CT Gender Identity Female [id number] [address] Vital Signs Vital Sign Value Unit [place] Value [place] Unit Date/Time Recent/Initial? Code Code System Body Mass Index 23.34 kg/m2 07/31/2022 16:59 Initial 79020 -5 LOINC Body Mass Index Percentile 71 % 07/31/2022 16:59 Initial 00498 -9 LOINC Systolic Blood Pressure 120 mm[Hg] 07/31/2022 16:59 Initial 8480- 6 LOINC Diastolic Blood Pressure 80 mm[Hg] 07/31/2022 16:59 Initial 8462- 4 [facility] Body Surface Area 1.79 m2 07/31/2022 16:59 Initial 3140- 1 [facility] Height 170.180 0 cm 67.00 in 07/31/2022 16:59 Initial 8302- 2 [facility] O2 Saturation 98 % 2021 16:59 Initial 77299 -5 [facility] Pulse 92.0 /min 07/31/2022 16:59 Initial 8867- 4 [facility] Temperature 36.8 Antonella 98.2 F 07/31/20 16:59 Initial 8310- 5 [facility] Weight 67.59 kg 149.00 lbs 07/31/2022 16:59 Initial 06412 -7 [facility] Medications Medication Start Date End Date Route Frequency Dose Code Code System Medication Instructions Home Meds predniSONE 50MG Oral Tablet 06/07/2022 07/31/2022 By Mouth Daily 1 TABLET 210809 RxNorm 1 TABLET By Mouth Daily Anel-28 30MCG-0.15MG-NA Oral Tablet 06/07/2022 09/12/2022 By Mouth Daily 1 TABLET 402172 RxNorm 1 TABLET By Mouth Daily Diflucan [...] 02/20/2023 By Mouth As Directed 1 PACK 310696 RxNorm 1 PACK By Mouth As Directed Methocarbamol 750MG Oral Tablet 12/25/2022 03/12/2023 By Mouth As needed every 8 hr 812635 RxNorm 1-2 TABLET By Mouth As needed every 8 hr [place]-28 30 MCG-0.15 MG; NA Oral Tablet 12/25/2022 03/12/2023 By Mouth Daily 1 TABLET 400078 RxNorm 1 TABLET By Mouth Daily Macrobid 100MG Oral Capsule 02/20/2023 03/12/2023 By mouth Twice a day 1 TABLET 975876 RxNorm 1 TABLET By mouth Twice a day X 7 DAYS Pyridium 100MG Oral Tablet 02/20/2023 03/12/2023 By mouth As needed every 8 hr 1 TABLET 7823296 RxNorm 1 TABLET By mouth As needed every 8 hr for urinary pain ZyrTEC Allergy 10MG Oral Capsule, Liquid Filled 03/12/2023 Unknown By Mouth Daily 1 CAPSULE 1801112 RxNorm 1 CAPSULE By Mouth Daily Fluticasone 0.05MG/1Actuati on Nasal [place] 03/12/2023 Unknown Nasal Daily 1 Sprays 6161508 RxNorm 1 Spr ays Nasal Daily Azithromycin 500MG Oral Tablet 06/04/2024 Unknown By Mouth x1 NOW 2 TABLET 691540 RxNorm 2 TABLET By Mouth x1 NOW [...] Status Code Code System SEASONAL ALLERGY active 806384720 SNO MED-CT FAMILY PLANNING 06/20/2020 active 605671166 SNO MED-CT BITE OF INSECT active 438693435 SNOME D-CT ES OF VAGINA 08/07/2022 active 85362013 S NOMED-CT MENORRHAGIA active 499367082 SNOMED-C T PAINFUL NECK active 49473732 SNOMED- CT ADHD OF CHILDHOOD 07/22/2019 resolved 809512846 S NOMED-CT SEASONAL NASAL ALLERGY 07/22/2019 resolved 689890 001 SNOMED-CT HISTORY OF [place]PO[place] 07/22/2019 resolved 8414536 08 SNOMED-CT Allergies and Adverse Reactions Allergy Substance Reaction Severity Start Date Concern Status Co de Code System Active seasonal allergies Active No Known Drug Allergies Active 506219419 SNOMED-CT No Known Drug Allergies Active 477523638 SNOMED-CT Plan of Treatment Description Due Date Details Instructions DEPRESSION SCREENING DUE 06/20/2021 Future Order Description Future Order Date Futu re Order Loinc: BACTERIAL VAGINOSIS RAPID TEST 07/31/2022 LOINC: 6410-5 CULTURE YEAST, WITH IDENTIFICATION 07/31/2022 LOINC: 43262-7 TRICHOMONAS VAGINALIS FEMALE RNA QUAL 2 LOINC: 85619-5 CHLAMYDIA/GC URINE RNA, TMA APTIMA 07/31/2022 LOINC: 5048-4 CULTURE URINE 07/31/2022 LOINC: 630-4 Encounters Encounter Diagnosis Start Date Code Code Sys tem Acute vaginitis 07/31/2022 65459604 SNOMED-CT Personal Care Team Section Performer Name Performer Role Active Date Inactive Da te Progress Notes [facility] 07/31/2022 18:10 Admission Date/Time: 07/31/2022 [...] NEGATIVE 07/31/2022 17:10 07/31/2022 17:12 final LOT#: [id number] 07/31/2022 17:10 07/31/2022 17:12 final EXP DATE: [...]
--- OUTSIDE RECORDS SUMMARY | 2025-01-22 09:12 | XMS_ITS ---
Author Organization Unknown Address [address] [place] [phone] Phone Care Team Providers Care Junior Legal Secretary Name Role Phone Blanco Gallego Attending Unavailable [...] em Smoking History Never smoker (Never Smoked) 199903045 SNOMED CT Sex Female Sexual Orientation Straight or Heterosexual 21625272 SNOMED CT Gender Identity Female 24121604381073 [address] Medications Medication Start Date End Date Route Frequency Dose Code Code System Medication Instructions Home Meds ZyrTEC Allergy 10MG Oral Capsule, Liquid Filled 03/12/2023 Unknown By Mouth Daily 1 CAPSULE 6128945 RxNorm 1 CAPSULE By Mouth Daily Fluticasone 0.05MG/1Actuatio n Nasal [place] 03/12/2023 Unknown Nasal Daily 1 Sprays 1447319 RxNorm 1 Spra ys Nasal Daily Azithromycin 500MG Oral Tablet 06/04/2024 Unknown By Mouth x1 NOW 2 TABLET 783755 RxNorm 2 TABLET By Mouth x1 NOW [...] Status Code Code System SEASONAL ALLERGY active 719532184 SNO MED-CT FAMILY PLANNING 06/20/2020 active 718175146 SNO MED-CT BITE OF INSECT active 706132534 SNOME D-CT ES OF VAGINA 08/07/2022 active 57689944 S NOMED-CT MENORRHAGIA active 901617124 SNOMED-C T PAINFUL NECK active 23850352 SNOMED- CT ADHD OF CHILDHOOD 07/22/2019 resolved 197688005 S NOMED-CT SEASONAL NASAL ALLERGY 07/22/2019 resolved 426950 001 SNOMED-CT HISTORY OF [place] 07/22/2019 resolved 8118518 08 SNOMED-CT Allergies and Adverse Reactions Allergy Substance Reaction Severity Start Date Concern Status Co de Code System Active seasonal allergies Active No Known Drug Allergies Active 237712273 SNOMED-CT No Known Drug Allergies Active 395135116 SNOMED-CT Plan of Treatment Description Due Date Details Instructions DEPRESSION SCREENING DUE 06/20/2021 Personal Care Team Section Performer Name Performer Role Active Date Inactive Da xena
--- OUTSIDE RECORDS SUMMARY | 2025-01-22 09:12 | XMS_ITS ---
Author Organization Unknown Address [address] [place] [phone] Phone Care Team Providers Care Cold Meat Chef Name Role Phone ATIYA Lezama MD [...] em Smoking History Never smoker (Never Smoked) 729777116 SNOMED CT Sex Female Sexual Orientation Straight or Heterosexual 09378280 SNOMED CT Gender Identity Female 42151320953757 [address] Medications Medication Start Date End Date Route Frequency Dose Code Code System Medication Instructions Home Meds ZyrTEC Allergy 10MG Oral Capsule, Liquid Filled 03/12/2023 Unknown By Mouth Daily 1 CAPSULE 8951235 RxNorm 1 CAPSULE By Mouth Daily Fluticasone 0.05MG/1Actuatio n Nasal [place] 03/12/2023 Unknown Nasal Daily 1 Sprays 5403282 RxNorm 1 Spra ys Nasal Daily Azithromycin 500MG Oral Tablet 06/04/2024 Unknown By Mouth x1 NOW 2 TABLET 677333 RxNorm 2 TABLET By Mouth x1 NOW [...] Status Code Code System SEASONAL ALLERGY active 646899939 SNO MED-CT FAMILY PLANNING 06/20/2020 active 892600092 SNO MED-CT BITE OF INSECT active 339695517 SNOME D-CT ES OF VAGINA 08/07/2022 active 27935861 S NOMED-CT MENORRHAGIA active 512869191 SNOMED-C T PAINFUL NECK active 27321733 SNOMED- CT ADHD OF CHILDHOOD 07/22/2019 resolved 894955008 S NOMED-CT SEASONAL NASAL ALLERGY 07/22/2019 resolved 061788 001 SNOMED-CT HISTORY OF [place] 07/22/2019 resolved 8217605 08 SNOMED-CT Allergies and Adverse Reactions Allergy Substance Reaction Severity Start Date Concern Status Co de Code System Active seasonal allergies Active No Known Drug Allergies Active 717397303 SNOMED-CT No Known Drug Allergies Active 560778616 SNOMED-CT Plan of Treatment Description Due Date Details Instructions DEPRESSION SCREENING DUE 06/20/2021 Personal Care Team Section Performer Name Performer Role Active Date Inactive Da xena
--- OUTSIDE RECORDS SUMMARY | 2025-01-22 09:12 | XMS_ITS ---
Author Organization Unknown Address [address] [place] [phone] Phone Care Team Providers Care Manufacturing Applications Engineer Name Role Phone ATIYA Lezama MD Attending [...] em Smoking History Never smoker (Never Smoked) 785132907 SNOMED CT Sex Female Sexual Orientation Straight or Heterosexual 04821595 SNOMED CT Gender Identity Female [id number] [address] Medications Medication Start Date End Date Route Frequency Dose Code Code System Medication Instructions Home Meds Radha 28 3MG-0.02MG Oral Tablet 09/12/2022 12/25/2022 By Mouth Once a day 1 TABLET RxNorm 1 TABLET By Mouth Once a day Medrol Dosepak 4MG Oral Tablet 12/25/2022 02/20/2023 By Mouth As Directed 1 PACK 477156 RxNorm 1 PACK By Mouth As Directed Methocarbamol 750MG Oral Tablet 12/25/2022 03/12/2023 By Mouth As needed every 8 hr 381880 RxNorm 1-2 TABLET By Mouth As needed every 8 hr [place]-28 30 MCG-0.15 MG; NA Oral Tablet 12/25/2022 03/12/2023 By Mouth Daily 1 TABLET 826560 RxNorm 1 TABLET By Mouth Daily Macrobid 100MG Oral Capsule 02/20/2023 03/12/2023 By mouth Twice a day 1 TABLET 591764 RxNorm 1 TABLET By mouth Twice a day X 7 DAYS Pyridium 100MG Oral Tablet 02/20/2023 03/12/2023 By mouth As needed every 8 hr 1 TABLET 2689420 RxNorm 1 TABLET By mouth As needed every 8 hr for urinary pain ZyrTEC Allergy 10MG Oral Capsule, Liquid Filled 03/12/2023 Unknown By Mouth Daily 1 CAPSULE 7157992 RxNorm 1 CAPSULE By Mouth Daily Fluticasone 0.05MG/1Actuati on Nasal [place] 03/12/2023 Unknown Nasal Daily 1 Sprays 2523721 RxNorm 1 Spr ays Nasal Daily Azithromycin 500MG Oral Tablet 06/04/2024 Unknown By Mouth x1 NOW 2 TABLET 535469 RxNorm 2 TABLET By Mouth x1 NOW [...] Status Code Code System SEASONAL ALLERGY active 651601739 SNO MED-CT FAMILY PLANNING 06/20/2020 active 690140300 SNO MED-CT BITE OF INSECT active 960368760 SNOME D-CT ES OF VAGINA 08/07/2022 active 30982477 S NOMED-CT MENORRHAGIA active 911156624 SNOMED-C T PAINFUL NECK active 55064599 SNOMED- CT ADHD OF CHILDHOOD 07/22/2019 resolved 118821423 S NOMED-CT SEASONAL NASAL ALLERGY 07/22/2019 resolved 656105 001 SNOMED-CT HISTORY OF [place] 07/22/2019 resolved 8753166 08 SNOMED-CT Allergies and Adverse Reactions Allergy Substance Reaction Severity Start Date Concern Status Co de Code System Active seasonal allergies Active No Known Drug Allergies Active 520298854 SNOMED-CT No Known Drug Allergies Active 061181345 SNOMED-CT Plan of Treatment Description Due Date Details Instructions DEPRESSION SCREENING DUE 06/20/2021 Personal Care Team Section Performer Name Performer Role Active Date Inactive David mccallum
--- OUTSIDE RECORDS SUMMARY | 2025-01-22 09:13 | XMS_ITS ---
Author Organization Unknown Address [address] [place] [phone] Phone Care Team Providers Care Web Search Evaluator Name Role Phone Blanco Gallego Attending Unavailable [...] em Smoking History Never smoker (Never Smoked) 930655401 SNOMED CT Sex Female Sexual Orientation Straight or Heterosexual 66399951 SNOMED CT Gender Identity Female [id number] Vital Signs Vital Sign Value Unit Prospect Value Prospect Unit Date/Time Recent/Initial? Code Code System Body Mass Index 23.87 kg/m2 12/25/2022 13:33 Initial 06413 -5 [facility] Body Mass Index Percentile 74 % 12/25/2022 13:33 Initial 52311 -9 [facility] Systolic Blood Pressure 106 mm[Hg] 12/25/2022 13:33 Initial 8480- 6 [facility] Diastolic Blood Pressure 72 mm[Hg] 12/25/2022 13:33 Initial 8462- 4 [facility] Body Surface Area 1.85 m2 12/25/2022 13:33 Initial 3140- 1 [facility] Height 172.720 0 cm 68.00 in 12/25/2022 13:33 Initial 8302- 2 [facility] O2 Saturation 100 % 2022 13:33 Initial 93810 -5 [facility] Pulse 82.0 /min 12/25/2022 13:33 Initial 8867- 4 [facility] Respiration 16 /min 12/25/19 13:33 Initial 9279- 1 [facility] Temperature 37.0 Antonella 98.6 F 12/25/19 13:33 Initial 8310- 5 [facility] Weight 71.21 kg 157.00 lbs 12/25/2022 13:33 Initial 69310 -7 [facility] Medications Medication Start Date End Date Route Frequency Dose Code Code System Medication Instructions Home Meds Radha 28 3MG-0.02MG Oral Tablet 09/12/2022 12/25/2022 By Mouth Once a day 1 TABLET RxNorm 1 TABLET By Mouth Once a day Medrol Dosepak 4MG Oral Tablet 12/25/2022 02/20/2023 By Mouth As Directed 1 PACK 962706 RxNorm 1 PACK By Mouth As Directed Methocarbamol 750MG Oral Tablet 12/25/2022 03/12/2023 By Mouth As needed every 8 hr 913890 RxNorm 1-2 TABLET By Mouth As needed every 8 hr [place]-28 30 MCG-0.15 MG; NA Oral Tablet 12/25/2022 03/12/2023 By Mouth Daily 1 TABLET 597724 RxNorm 1 TABLET By Mouth Daily Macrobid 100MG Oral Capsule 02/20/2023 03/12/2023 By mouth Twice a day 1 TABLET 264944 RxNorm 1 TABLET By mouth Twice a day X 7 DAYS Pyridium 100MG Oral Tablet 02/20/2023 03/12/2023 By mouth As needed every 8 hr 1 TABLET 8619871 RxNorm 1 TABLET By mouth As needed every 8 hr for urinary pain ZyrTEC Allergy 10MG Oral Capsule, Liquid Filled 03/12/2023 Unknown By Mouth Daily 1 CAPSULE 4044367 RxNorm 1 CAPSULE By Mouth Daily Fluticasone 0.05MG/1Actuati on Nasal [place] 03/12/2023 Unknown Nasal Daily 1 Sprays 0420312 RxNorm 1 Spr ays Nasal Daily Azithromycin 500MG Oral Tablet 06/04/2024 Unknown By Mouth x1 NOW 2 TABLET 666515 RxNorm 2 TABLET By Mouth x1 NOW Assessment You had the following problems:SEASONAL ALLERGYFAMILY PLANNINGBITE OF INSECTCANDIDA OF VAGINAMENORRHAGIAPAINFUL NECK Assessment/Plan: 1. Left upper back pain - Start steroids and muscle relaxer. Patient denies need for school note. 2. Contraceptive management - Patient requesting to restart [place], will restart at this time Return to clinic [facility] Discharge Instructions Should you have any questions prior to discharge, please contact a member of your healthcare team. If you have left the hospital and have any questions, please contact your primary care physician. Reason For Referral No Data Found Problems Problem Start Date Resolved Date Status Code Code System SEASONAL ALLERGY active 730451821 SNO MED-CT FAMILY PLANNING 06/20/2020 active 373141784 SNO MED-CT BITE OF INSECT active 098051820 SNOME D-CT ES OF VAGINA 08/07/2022 active 08546552 S NOMED-CT MENORRHAGIA active 596151889 SNOMED-C T PAINFUL NECK active 79861522 SNOMED- CT ADHD OF CHILDHOOD 07/22/2019 resolved 506954674 S NOMED-CT SEASONAL NASAL ALLERGY 07/22/2019 resolved 785828 001 SNOMED-CT HISTORY OF CHICKENPOX 07/22/2019 resolved 5944090 08 SNOMED-CT Allergies and Adverse Reactions Allergy Substance Reaction Severity Start Date Concern Status Co de Code System Active seasonal allergies Active No Known Drug Allergies Active 549542668 SNOMED-CT No Known Drug Allergies Active 442456024 SNOMED-CT Plan of Treatment Description Due Date Details Instructions DEPRESSION SCREENING DUE 06/20/2021 Encounters Encounter Diagnosis Start Date Code Code Sys tem Pain in thoracic spine 12/25/2022 053196972 SNOME D-CT Personal Care Team Section Performer Name Performer Role Active Date Inactive Da te Progress Notes [facility] 12/25/2022 13:54 Admission Date/Time: 12/25/2022 13:07 [facility] Visit Note Chief Complaint: [employer] [facility] F/U UPPER BACK PAIN/BY NECK SWOLLEN [...] is an 17 yo female presents to [facility] today for [place] [facility] follow up neck and back pain. Pt states she went to [place] [facility] on 12-18-22 with neck and upper back pain. States it just started hurting her while at work, denies injury to the areas. 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 States she has been taking warm baths [...] Contraceptive management - Patient requesting to restart [place], will restart at this time Return to [...] records Referring and communicating with other health complex care nurse practitioner x Obtaining and/or reviewing separately obtained history Independent interpretation of results and communicating results to the patient/family/caregiver x Performing a medically appropriate examination/evaluation Care coordination (not reported separately) Ordered & Completed Meds Table: No Current Medications Available Discharge Med List: Discharge Medications: No Discharge Medications Available
[2025-01-22] MEDS: LACTATED RINGERS 1,000 ML 125 ML IV CONT ×2 (09:25→13:16)
[2025-01-22 09:26] LABS: OBXCEM ROM Plus Positive (Negative)
[2025-01-22] MEDS: AMPICILLIN 2 GM/NS 100 ML 2 GM/100 ML BAG IVPB (09:28)
[2025-01-22 09:33] LABS: Basophils Percent Auto 0.3 % (0.2-1.2); Eosinophils Absolute Auto 0.1 K/mm3 (0-0.3); Eosinophils Percent Auto 0.6 % (0-4.4); Hematocrit 32.5 % (37.0-47.0); Hemoglobin 11.1 g/dL (12.0-15.0); Immature Granulocyte Absolute 0.08 K/mm3 (0.00-0.031); Immature Granulocyte Percent A 0.8 % (0-0.5); Lymphocytes Absolute Auto 1.59 K/mm3 (0.9-3.2); Lymphocytes Percent Auto 15.9 % (18.3-44.2); Mean Corpuscular HGB Conc 34.2 g/dl (32-36); Mean Corpuscular Hemoglobin 31.1 pg (26-34); Mean Platelet Volume 10.4 fl (7.4-10.4); Monocytes Absolute Auto 0.6 K/mm3 (0.1-0.6); Monocytes Percent Auto 6.3 % (2.6-8.5); Neutrophils Absolute Auto 7.6 K/mm3 (1.3-6.7); Neutrophils Percent Auto 76.1 % (45.5-73.1); Platelet Count Result 247 k/mm3 (150-375); Red Blood Count 3.57 M/mm3 (4.2-5.4); Red Cell Distribution Width 12.8 % (11.5-14.5)
[2025-01-22 09:49] LABS: Glucose Point of Care 80 mg/dl (65-105)
[2025-01-22 10:10] LABS: Syphilis IgG/IgM Antibody Negative (Negative)
[2025-01-22 10:24] LABS: HIV 1/2 Ab P24 Ag Result Negative (Negative)
--- NOTE | 2025-01-22 10:36 | PM.IMHP ---
H&P: HPI History of Present Illness Date/Time: 01/22/25 10:36 Chief Complaint: at 37. 3 weeks gestation who arrived after SROM and with contractions. 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 Review of Systems Review of Systems: All systems reviewed & are unremarkable except as noted in HPI and below Meds Home Medications and Allergies Home Medications ?Medication ?Instructions ?Recorded ?Confirmed ?Type vit no.95-ferrous 1 tablet PO DAILY 01/22/25 01/22/25 History fumarate 28 mg-folic acid 800 mcg tablet () Allergies Allergy/AdvReac Type Severity Reaction Status Date / Time No Known Allergies Allergy Verified 01/22/25 09:21 Vital Signs Vital Signs - 24 hr 01/22/25 09:00 01/22/25 09:15 01/22/25 09:30 Pulse Rate 97 104 H 97 Blood Pressure 134/84 124/76 121/79 01/22/25 09:45 Pulse Rate 94 Blood Pressure 126/88 Exam Const: General: cooperative and healthy appearing Chest: Chest palpation & inspection: normal inspection of the chest Resp: Effort & Inspection: normal respiratory effort Cardio: Rate: regular rate GI: Other: soft in between contractions : Other: SVE 3/80/-2 clear fluid Back/Spine/Pelvis: Back: no CVA tenderness H&P: Results Labs Labs: Short CBC 01/22/25 Range/Units 09:23 WBC 10.0 (4.5-10.0) K/mm3 Hgb 11.1 L (12.0-15.0) g/dL Hct 32.5 L (37.0-47.0) % Plt Count 247 (150-375) k/mm3 Assessment and Plan Assessment and plan (1) SROM (spontaneous rupture of membranes): Status: Acute Plan labor, SROM, anticipate vaginal delivery
--- NOTE | 2025-01-22 11:47 | LDADM ---
This patient, Lani Ho, was admitted to Labor/Delivery/Recovery 105 on 01/22/25 at 08:30. Plans for labor, pain management and were discussed with patient. Patient/family oriented to hospital policies and general routines including ID bracelet, bed and alarms, visiting hours, pain management, procedures, bathroom and other care routines, personal items, smoking policy, room service/diet and guest tray routines, infant security routines, and visiting hours. Patient/Family are encouraged to report perceived risks to care and to ask questions if they do not understand what they are told or what they should do. See OBIX for further documentation.
--- NOTE | 2025-01-22 12:43 | WPDANESEPP ---
Anes - Eval Pre Procedure Procedure: Labor epidural Date/Time: 01/22/25 12:43 Surgeon: Chester Preop Diagnosis: Pain during labor Pre Op Diagnosis: Labor Patient Data Age: 19 Gender: F Height: 1.73 m Weight: 84.4 kg Last Vital Signs Pulse 80 01/22/25 12:30 BP 132/80 01/22/25 12:30 O2 Del Method Room Air 01/22/25 09:30 Allergies Allergy/AdvReac Type Severity Reaction Status Date / Time No Known Allergies Allergy Verified 01/22/25 09:21 Home Medications ?Medication ?Instructions ?Recorded ?Confirmed ?Type vit no.95-ferrous 1 tablet PO DAILY 01/22/25 01/22/25 History fumarate 28 mg-folic acid 800 mcg tablet () Laboratory Tests 01/22/25 01/22/25 01/22/25 08:36 09:23 09:44 WBC 10.0 K/mm3 (4.5-10.0) RBC 3.57 L M/mm3 (4.2-5.4) Hgb 11.1 L g/dL (12.0-15.0) Hct 32.5 L % (37.0-47.0) MCV 91.0 fl (80-100) MCH 31.1 pg (26-34) MCHC 34.2 g/dl (32-36) RDW 12.8 % (11.5-14.5) Plt Count 247 k/mm3 (150-375) MPV 10.4 fl (7.4-10.4) Immature Gran % (Auto) 0.8 H % (0-0.5) Neut % (Auto) 76.1 H % (45.5-73.1) Lymph % (Auto) 15.9 L % (18.3-44.2) [place] % (Auto) 6.3 % (2.6-8.5) Eos % (Auto) 0.6 % (0-4.4) Baso % (Auto) 0.3 % (0.2-1.2) Lymph # (Auto) 1.59 K/mm3 (0.9-3.2) [place] # (Auto) 0.6 K/mm3 (0.1-0.6) Eos # (Auto) 0.1 K/mm3 (0-0.3) Baso # (Auto) 0.0 K/mm3 (0.0-0.1) Abs Immat Gran (auto) 0.08 H K/mm3 (0.00-0.031) Absolute Neuts (auto) 7.6 H K/mm3 (1.3-6.7) Absolute Nucleated RBC 0.000 K/mm3 (0.0-0.012) Nucleated RBC % 0.0 % (0.0-0.2) POC Capillary Glucose 80 mg/dl (65-105) Membranes Rupture Rom plus positive (Negative) Syphilis IgG/IgM Ab Negative (Negative) HIV 1&2 Ab/P24 Ag 4thGn Negative (Negative) Blood Type B Negative Antibody Screen Positive Antibody Identification Passive Due to RH Imm Glob Antigen Identification TNP RETA, IgG Interpret Not Performed RETA, Poly Interpret Negative RETA, Complement Interp Not Performed Patient hx anesthesia problems: none Family hx anesthesia problems: none Results Review: All pre-operative results and documents have been reviewed as part of the pre-operative evaluation. [facility] Family History Family History Other No pertinent family history in first degree relatives Social History Social History Smoking status: Former smoker Tobacco type: e-cigarettes/vaping Second hand tobacco smoke exposure: Yes Substance use: never Do You Feel Safe in your Home?: Yes Lack of Transportation: No Lack of Food: Never True Current Housing: I Have Housing Concerned About Future Housing: No Difficulty Paying Gas/Electric Bills: No Difficulty Paying for Meds: No Currently Unemployed: No Education: High School Diploma/GED Difficulty w/ Childcare or Family Care: No Spiritual care concerns: No Exam Day of Procedure 01/22/25 12:43 Patient weight: normal Heart: regular rate and rhythm Lungs: clear to auscultation Neurological: alert and oriented
[2025-01-22] MEDS: AMPICILLIN 1 GM/NS 50 ML 1 GM/50 ML BAG IVPB ×2 (13:15→17:04)
[2025-01-22] MEDS: OXYTOCIN 30 UNITS/NS 500 ML 30 UNITS/500 ML BAG IV CONT (13:22)
[2025-01-22 13:30] LABS: Glucose Point of Care 82 mg/dl (65-105)
--- NOTE | 2025-01-22 15:12 | P.PNAN_ITS ---
Anes - Initial Pre Proc Eval Date/Time: 01/22/25 15:12 Surgeon: Dima Wei MD Pre Op Diagnosis: Labor Patient Data Age: 19 Gender: F Height: 1.73 m Weight: 84.4 kg Last Vital Signs Temp 36.9 C 01/22/25 15:00 Pulse 88 01/22/25 15:00 Resp 16 01/22/25 15:00 BP 119/60 01/22/25 15:00 Pulse Ox 100 01/22/25 15:11 O2 Del Method Room Air 01/22/25 09:30 Allergies Allergy/AdvReac Type Severity Reaction Status Date / Time No Known Allergies Allergy Verified 01/22/25 09:21 Home Medications ?Medication ?Instructions ?Recorded ?Confirmed ?Type vit no.95-ferrous 1 tablet PO DAILY 01/22/25 01/22/25 History fumarate 28 mg-folic acid 800 mcg tablet () Laboratory Tests 01/22/25 01/22/25 01/22/25 08:36 09:23 09:44 WBC 10.0 K/mm3 (4.5-10.0) RBC 3.57 L M/mm3 (4.2-5.4) Hgb 11.1 L g/dL (12.0-15.0) Hct 32.5 L % (37.0-47.0) MCV 91.0 fl (80-100) MCH 31.1 pg (26-34) MCHC 34.2 g/dl (32-36) RDW 12.8 % (11.5-14.5) Plt Count 247 k/mm3 (150-375) MPV 10.4 fl (7.4-10.4) Immature Gran % (Auto) 0.8 H % (0-0.5) Neut % (Auto) 76.1 H % (45.5-73.1) Lymph % (Auto) 15.9 L % (18.3-44.2) [place] % (Auto) 6.3 % (2.6-8.5) Eos % (Auto) 0.6 % (0-4.4) Baso % (Auto) 0.3 % (0.2-1.2) Lymph # (Auto) 1.59 K/mm3 (0.9-3.2) [place] # (Auto) 0.6 K/mm3 (0.1-0.6) Eos # (Auto) 0.1 K/mm3 (0-0.3) Baso # (Auto) 0.0 K/mm3 (0.0-0.1) Abs Immat Gran (auto) 0.08 H K/mm3 (0.00-0.031) Absolute Neuts (auto) 7.6 H K/mm3 (1.3-6.7) Absolute Nucleated RBC 0.000 K/mm3 (0.0-0.012) Nucleated RBC % 0.0 % (0.0-0.2) POC Capillary Glucose 80 mg/dl (65-105) Membranes Rupture Rom plus positive (Negative) Syphilis IgG/IgM Ab Negative (Negative) HIV 1&2 Ab/P24 Ag 4thGn Negative (Negative) Blood Type B Negative Antibody Screen Positive Antibody Identification Passive Due to RH Imm Glob Antigen Identification TNP RETA, IgG Interpret Not Performed RETA, Poly Interpret Negative RETA, Complement Interp Not Performed 01/22/25 13:26 WBC RBC Hgb Hct MCV MCH MCHC RDW Plt Count MPV Immature Gran % (Auto) Neut % (Auto) Lymph % (Auto) [place] % (Auto) Eos % (Auto) Baso % (Auto) Lymph # (Auto) [place] # (Auto) Eos # (Auto) Baso # (Auto) Abs Immat Gran (auto) Absolute Neuts (auto) Absolute Nucleated RBC Nucleated RBC % POC Capillary Glucose 82 mg/dl (65-105) Membranes Rupture Syphilis IgG/IgM Ab HIV 1&2 Ab/P24 Ag 4thGn Blood Type Antibody Screen Antibody Identification Antigen Identification RETA, IgG Interpret RETA, Poly Interpret RETA, Complement Interp Patient hx anesthesia problems: none Family hx anesthesia problems: none Results Review: All pre-operative results and documents have been reviewed as part of the pre- operative evaluation. [facility] Family History Family History Other No pertinent family history in first degree relatives Social History Social History Smoking status: Former smoker Tobacco type: e-cigarettes/vaping Second hand tobacco smoke exposure: Yes Substance use: never Do You Feel Safe in your Home?: Yes Lack of Transportation: No Lack of Food: Never True Current Housing: I Have Housing Concerned About Future Housing: No Difficulty Paying Gas/Electric Bills: No Difficulty Paying for Meds: No Currently Unemployed: No Education: High School Diploma/GED Difficulty w/ Childcare or Family Care: No Spiritual care concerns: No Anes - Eval Final PreProcedure Day of Procedure 01/22/25 15:12 Patient weight: overweight Neurological: alert and oriented ASA classification: II Emergent: no Anesthetic plan: proceed Anesthesia type and monitoring: regional epidural and standard monitoring Results Review: All pre-operative results and documents have been reviewed as part of the pre- operative evaluation. Informed Consent: The patient's anesthetic plan and its attendant risks and benefits were discussed with the patient/family/POA. Questions were solicited and answers provided to the satisfaction of the patient/family/POA.
[2025-01-22 17:15] LABS: Glucose Point of Care 67 mg/dl (65-105)
[2025-01-22 18:18] LABS: Glucose Point of Care 85 mg/dl (65-105)
[2025-01-22 20:45] LABS: Glucose Point of Care 71 mg/dl (65-105)
[2025-01-22] MEDS: OXYTOCIN 30 UNITS/NS 500 ML 30 UNITS/500 ML BAG 125 UNITS IV CONT (22:22)
[2025-01-23] VITALS (7 sets, daily range): BP systolic 112–149; BP diastolic 72–94; PULSE 77–108; RESP 16–18; TEMP 36.1–36.6; O2SAT 98–100
--- NOTE | 2025-01-23 00:49 | PC.NURSE ---
Pt and infant transferred to via wheelchair and bassinet in stable condition per order from Dr. Briggs. Report given to Allen Flores. All belongings brought with pt. S.O with pt.
[2025-01-23 05:08] LABS: Hematocrit 27.8 % (37.0-47.0); Hemoglobin 9.6 g/dL (12.0-15.0)
[2025-01-23] MEDS: ACETAMINOPHEN 325 MG TABLET 650 MG PO (05:27)
[2025-01-23] MEDS: IBUPROFEN 600 MG TABLET PO ×2 (05:29→15:55)
--- NOTE | 2025-01-23 08:46 | WPDANLDPN2 ---
Anes-Prog Note L&D Date/Time: 01/23/25 08:46 Comfortable throughout: labor and delivery Neuraxial method: epidural Epidural/Spinal procedure site: clean & non-tender Neuro status: Neuro function grossly intact. Cardiovascular status: normal Respiratory status: normal Airway patency: baseline Mental status: baseline Post-Op hydration status: normal Vital Signs: Last Vital Signs Temp 36.6 C 01/23/25 04:35 Pulse 83 01/23/25 04:35 Resp 16 01/23/25 04:35 BP 121/88 01/23/25 04:35 Pulse Ox 98 01/23/25 04:35 O2 Del Method Room Air 01/22/25 09:30 Pain score (VAS): 0/10 I/O: Intake & Output 01/22/25 01/23/25 01/23/25 23:59 07:59 15:59 Output Total 500 125 Balance -500 -125 Post-procedural complaints: none Patient feedback: Patient satisfied with anesthetic care.
[2025-01-23] MEDS: DOCUSATE SODIUM 100 MG CAPSULE PO (09:06)
[2025-01-23] MEDS: MULTIVIT/MIN/PREN/FOL AC/IRON TABLET 1 TAB PO (09:06)
[2025-01-23] MEDS: POLYSACCHARIDE IRON COMPLEX 150 MG CAPSULE PO ×2 (09:07→17:28)
--- NOTE | 2025-01-23 13:52 | PM.OBPRVD ---
OB - Vaginal Delivery Note Procedure Delivery date: 01/23/25 Induction method: None Delivery augmentation: Rupture of Membranes Delivery monitor: External FHT and External Uterine Route of delivery: Episiotomy description: None Laceration Description: Periurethral Delivery repair: vicryl Specimen: Yes Quantitative Blood Loss (ml): 100 Anesthesia type: Epidural Disposition: Floor
--- NOTE | 2025-01-23 13:53 | P.PNOB_ITS ---
OB - PN: Subj Subjective Date/time seen: 01/23/25 13:53 Patient comments: no complaints, pain well controlled, incisional pain, tolerating diet and flatus present OB - PN: Obj Data Labs 01/23/25 04:38 Labs: Laboratory Results - last 24 hr 01/22/25 01/22/25 01/22/25 17:10 17:48 20:31 Hgb Hct POC Capillary Glucose 67 85 71 Blood Type Antibody Screen Screen Baby's Blood Type Baby's RETA Doses of RhIg Required 01/23/25 01/23/25 04:38 09:48 Hgb 9.6 L Hct 27.8 L POC Capillary Glucose Blood Type B Negative Antibody Screen TNP Screen Negative Baby's Blood Type O pos Baby's RETA Negative Doses of RhIg Required 1 OB - PN A/P Plan day: 1 Plan: routine care Comments: No problems, routine care Time Spent With Patient Time: Total time spent is greater than 50% in coordination of care (as documented) at patient's floor/unit and/or counseling patient: Exam 2 Const: General: comfortable, no acute distress and alert Resp: Effort & Inspection: normal respiratory effort Auscultation: no crackles, no rales and no rhonchi Cardio: Rate: regular rate Heart sounds: no click, no murmurs and no rubs GI: Inspection: non-distended GI Palp: No Tenderness to palpation present (GI) Auscultation: normal bowel sounds Other: Incision - CDI Extrem: General: normal to inspection, no pedal edema and no calf tenderness
--- NOTE | 2025-01-23 15:30 | PC.NURSE ---
1521: Breast pump (Mom[employer]) brought from patients home. Instructions given on cleaning, care, usage, that there should be no pain, pumping schedule for milk production, collection, and storage of human milk. Patient was assessed for correct flange size (24mm) and correct placement was verified. Pump parts reviewed with parents and pumping was initiated. Handouts were provided for education. Discussed with mother to only pump when infant does not nurse well at the breast and a bottle is being provided to avoid an oversupply. Parents voiced understanding of information provided.
[2025-01-23] MEDS: RHO(D) IMMUNE GLOBULIN 300 MCG/2 ML SYRINGE IM (15:57)
[2025-01-24] MEDS: POLYSACCHARIDE IRON COMPLEX 150 MG CAPSULE PO (07:05)
[2025-01-24] MEDS: IBUPROFEN 600 MG TABLET PO (07:05)
[2025-01-24] MEDS: MULTIVIT/MIN/PREN/FOL AC/IRON TABLET 1 TAB PO (07:05)
[2025-01-24] MEDS: DOCUSATE SODIUM 100 MG CAPSULE PO (07:05)
[2025-01-24] MEDS: MEASLES,MUMPS,RUBELLA VACCINE 0.5 ML VIAL (07:07)
[2025-01-24 08:00] VITALS: BP 113/85; PULSE 80; RESP 16; TEMP 36.6; O2SAT 100
--- NOTE | 2025-01-24 10:37 | P.PNOB_ITS ---
OB - PN: Subj Subjective Date/time seen: 01/24/25 10:37 Patient comments: no complaints, pain well controlled and tolerating diet OB - PN: Obj Data Labs 01/23/25 04:38 Labs: Laboratory Results - last 24 hr 01/23/25 09:48 Blood Type B Negative Antibody Screen TNP Screen Negative Baby's Blood Type O pos Baby's RETA Negative Doses of RhIg Required 1 OB - PN A/P Plan day: 2 Plan: routine care and discharge home Time Spent With Patient Time: Total time spent is greater than 50% in coordination of care (as documented) at patient's floor/unit and/or counseling patient: Exam 2 Const: General: comfortable and no acute distress Resp: Effort & Inspection: normal respiratory effort Auscultation: no rales, no rhonchi and no wheezes Cardio: Rate: regular rate Heart sounds: no click, no murmurs and no rubs GI: GI Palp: Yes Soft to palpation and No Tenderness to palpation present (GI) Auscultation: normal bowel sounds Extrem: General: normal to inspection, no pedal edema and no calf tenderness
--- NOTE | 2025-01-24 10:42 | P.DS_ITS ---
DS: Admitting Diagnosis Discharge Date 01/25/2025 Admitting Diagnosis Term DS: Discharge Diagnosis Discharge Diagnosis (1) Term delivered: Code(s): O80 - Encounter for full-term uncomplicated delivery Status: Acute OB - DS: Summary OB Procedures : None OB Procedures Intrapartum: Spontaneous Vag Delivery OB Procedures: : None Peripartum Data Laceration Description: Periurethral Episiotomy description: None Time Spent with Patient Time attestation: Total time spent providing and/or coordinating discharge services: DS: Data Data Completed and Pending Labs on day of discharge: Labs from last 24 hours 01/23/25 09:48 Blood Type B Negative Antibody Screen TNP Screen Negative Baby's Blood Type O pos Baby's RETA Negative Doses of RhIg Required 1 Discharge Plan Discharge Discharging Clinician: Tod Briggs Patient Disposition: Home, Self-Care Activity: pelvic rest Diet: regular Patient Instructions: Antibiotic Form Patient Language: [place] Stand Alone Forms: General Discharge Information Follow-up/Referrals: Tod Briggs MD [Physician] - Discharge Medications: Continued PNV cmb#95-ferrous fumarate-FA [] 28 mg iron- 800 mcg tablet 1 tablet PO DAILY Date of admission: 01/22/25 08:30 Primary Care Provider: UNKNOWN,DOCTOR Admitting Provider: Dima Wei Attending physician on admission: Dima Wei Condition: Stable
[2025-01-26 09:07] VITALS: BP 132/84; PULSE 74; RESP 18; TEMP 36.6; O2SAT 100
== END 2025-01-24 12:30 | disposition home or self-care (01) | DRG 560 ==
LOC: ANHLDR 18:07 → ANHOB2 01-24 10:50 → ANHLDR 01-26 09:38 → ANHOB2 01-26 09:38
PROVIDERS: Obstetrics & Gynecology; Admitting Provider Obstetrics & Gynecology; Visit Provider Obstetrics & Gynecology
DX: O24.420 Gestational diabetes mellitus in childbirth, diet controlled (principal); O36.63X0 Maternal care for excessive fetal growth, third trimester, not applicable or unspecified; O71.82 Other specified trauma to perineum and vulva; Z3A.37 37 weeks gestation of pregnancy; Z37.0 Single live birth
CPT/HCPCS: 36415; 82948; 84112; 85014; 85018; 85025; 85461; 86593; 86703; 86850; 86880; 86900; 86901; 90384; 90710; A9270; G0432; J0290; J2590; J2790; J2795; J7120

== ENCOUNTER 2025-01-31 02:19 | Emergency (ER) | payer OTHER, SELFPAY ==
--- NOTE | ~2025-01-31 | XR_ITS ---
CHEST RADIOGRAPH CLINICAL HISTORY: chest pain . COMPARISON: None TECHNIQUE: Single portable view of the chest. FINDINGS The cardiomediastinal silhouette is unremarkable. The lungs are clear. Visualized osseous structures and soft tissues are unremarkable. IMPRESSION: No focal infiltrate or effusion. Reviewed, dictated and finalized at location A.
--- NOTE | ~2025-01-31 | CT_ITS ---
EXAMINATION: CTA chest PE protocol DATE: 01/31/2025 16:19 CDT INDICATION: chest and back pain TECHNIQUE: Computed tomographic angiography (CTA) of the chest was performed with 100 mL Omnipaque-35 0 intravenous contrast. The dose-length product was 236.19 mGy-cm. Maximum intensity projection 3D-re constructions of the aorta and other arteries were constructed by the technologist on a separate work station. COMPARISON: None FINDINGS/OBSERVATIONS: PULMONARY ARTERIES: No filling defect is identified within the main or proximal pulmonary artery. The main pulmonary artery is not enlarged. THORACIC AORTA: No aneurysmal dilatation or dissection is present. The great vessels are intact LUNGS: The lungs are clear. MEDIASTINUM: No morphologically suspicious or pathologically enlarged lymph nodes are identified with in the mediastinum or bilateral axilla. BONES OF THE CHEST: No acute fracture. No significant degenerative disease. No lytic or blastic lesions. HEART: The heart is of normal size, without pericardial effusion. UPPER ABDOMEN: The gallbladder is distended, and otherwise unremarkable. IMPRESSION: No pulmonary embolus. No thoracic aortic dissection. The lungs are clear. Reviewed, dictated and finalized at location A.
--- OUTSIDE RECORDS SUMMARY | 2025-01-31 02:22 | XMS_ITS ---
Author Organization Unknown Address [address], [place] [phone] Phone Care Team Providers Care Account Support Associate Name Role Phone DEON RAFIQ Attending Unavailable Results CYTOMEGALOVIRUS AB IGG - Col lect Date/Time: 10/22/2024 14:12 [facility] ID: [id number] [address], [place], [phone] LOINC: 5124-3 Test Value Unit Reference Range Code Code System Flag CYTOMEGALOVIRUS ANTIBODY(IGG) >10.00 H PARVOVIRUS B19 IGG & IGM - C ollect Date/Time: 10/22/2024 14:12 [facility] ID: [id number] [address] [place], [place], [phone] LOINC: 5273-8 Test Value Unit Reference Range Code Code System Flag PARVOVIRUS B19 ANTIBODY(IGG) 0.2 PARVOVIRUS B19 ANTIBODY(IGM) 0.2 Social History Type Status Start Date End Date Code Code Syst em Smoking History Never smoker (Never Smoked) 980881786 SNOMED CT Sex Female Sexual Orientation Straight or Heterosexual 66137369 SNOMED CT Gender Identity Female [id number] [address] Medications Medication Start Date End Date Route Frequency Dose Code Code System Medication Instructions Home Meds ZyrTEC Allergy 10MG Oral Capsule, Liquid Filled 03/12/2023 Unknown By Mouth Daily 1 CAPSULE 6842272 RxNorm 1 CAPSULE By Mouth Daily Fluticasone 0.05MG/1Actuatio n Nasal [place] 03/12/2023 Unknown Nasal Daily 1 Sprays 7654245 RxNorm 1 Spra ys Nasal Daily Azithromycin 500MG Oral Tablet 06/04/2024 Unknown By Mouth x1 NOW 2 TABLET 370184 RxNorm 2 TABLET By Mouth x1 NOW [...] Status Code Code System SEASONAL ALLERGY active 897888064 SNO MED-CT FAMILY PLANNING 06/20/2020 active 215447154 SNO MED-CT BITE OF INSECT active 686064998 SNOME D-CT ES OF VAGINA 08/07/2022 active 21314580 S NOMED-CT MENORRHAGIA active 851076822 SNOMED-C T PAINFUL NECK active 59714288 SNOMED- CT ADHD OF CHILDHOOD 07/22/2019 resolved 285063757 S NOMED-CT SEASONAL NASAL ALLERGY 07/22/2019 resolved 720882 001 SNOMED-CT HISTORY OF CHICKENPOX 07/22/2019 resolved 2713027 08 SNOMED-CT Allergies and Adverse Reactions Allergy Substance Reaction Severity Start Date Concern Status Co de Code System Active seasonal allergies Active No Known Drug Allergies Active 208060893 SNOMED-CT No Known Drug Allergies Active 016534610 SNOMED-CT Plan of Treatment Description Due Date Details Instructions DEPRESSION SCREENING DUE 06/20/2021 Encounters Encounter Diagnosis Start Date Code Code Sys tem ultrasound scan abnormal 10/22/2024 666871 005 SNOMED-CT Personal Care Team Section Performer Name Performer Role Active Date Inactive Da xena
--- OUTSIDE RECORDS SUMMARY | 2025-01-31 02:22 | XMS_ITS ---
Author Organization Unknown Address [address] [place] [address] [phone] Phone Care Team Providers Care General Education Instructor Name Role Phone ABBY AGUIRRE Attending Unavailable [...] em Smoking History Never smoker (Never Smoked) 324263449 SNOMED CT Sex Female Sexual Orientation Straight or Heterosexual 73263403 SNOMED CT Gender Identity Female [id number] [address] Vital Signs Vital Sign Value Unit [place] Value [place] Date/Time Recent/Initial? Code Code System Body Mass Index 26.21 kg/m2 05/06/2023 12:01 Initial 81761 -5 [facility] Body Mass Index Percentile 85 % 05/06/2023 12:01 Initial 87178 -9 [facility] Systolic Blood Pressure 118 mm[Hg] 05/06/2023 12:01 Initial 8480- 6 [facility] Diastolic Blood Pressure 74 mm[Hg] 05/06/2023 12:01 Initial 8462- 4 [facility] Body Surface Area 3.35 m2 05/06/2023 12:01 Initial 3140- 1 [facility] Height 248.920 0 cm 98.00 in 05/06/2023 12:01 Initial 8302- 2 [facility] O2 Saturation 98 % 2022 12:01 Initial 33493 -5 [facility] Pulse 78.0 /min 05/06/2023 12:01 Initial 8867- 4 [facility] Temperature 36.4 Antonella 97.5 F 05/06/20 12:01 Initial 8310- 5 [facility] Weight 162.40 kg 358.03 lbs 05/06/2023 12:01 Initial 73330 -7 [facility] Medications Medication Start Date End Date Route Frequency Dose Code Code System Medication Instructions Home Meds ZyrTEC Allergy 10MG Oral Capsule, Liquid Filled 03/12/2023 Unknown By Mouth Daily 1 CAPSULE [id number] RxNorm 1 CAPSULE By Mouth Daily Fluticasone 0.05MG/1Actuatio n Nasal [place] 03/12/2023 Unknown Nasal Daily 1 Sprays 5931935 RxNorm 1 Spra ys Nasal Daily Azithromycin 500MG Oral Tablet 06/04/2024 Unknown By Mouth x1 NOW 2 TABLET 582846 RxNorm 2 TABLET By Mouth x1 NOW [...] Status Code Code System SEASONAL ALLERGY active 362933679 SNO MED-CT FAMILY PLANNING 06/20/2020 active 503463553 SNO MED-CT BITE OF INSECT active 920230196 SNOME D-CT ES OF VAGINA 08/07/2022 active 27671927 S NOMED-CT MENORRHAGIA active 674803111 SNOMED-C T PAINFUL NECK active 10549051 SNOMED- CT ADHD OF CHILDHOOD 07/22/2019 resolved 873434331 S NOMED-CT SEASONAL NASAL ALLERGY 07/22/2019 resolved 170660 001 SNOMED-CT HISTORY OF CHICKENPOX 07/22/2019 resolved 2953236 08 SNOMED-CT Allergies and Adverse Reactions Allergy Substance Reaction Severity Start Date Concern Status Co de Code System Active seasonal allergies Active No Known Drug Allergies Active 297125440 SNOMED-CT No Known Drug Allergies Active 926933351 SNOMED-CT Plan of Treatment Description Due Date Details Instructions DEPRESSION SCREENING DUE 06/20/2021 Encounters Encounter Diagnosis Start Date Code Code Sys tem Injury of head 05/06/2023 97786847 SNOMED-CT Personal Care Team Section Performer Name Performer Role Active Date Inactive Da te Progress Notes [facility] 05/06/2023 13:28 Date of Service: 05/06/2023 Convenient [...] Instructions Start Date Prescribing Fluticasone 0.05MG/1Actuation Nasal [place] 1 Sprays Nasal Daily 03/12/2023 Blanco Gallego ZyrTEC Allergy 10MG Oral Capsule, Liquid Filled 1 CAPSULE By Mouth Daily 03/12/2023 Blanco Gallego This examination was transcribed using the [employer] voice recognition system without human cash management associate. In an effort to expedite patient care, this report has not been adjusted for typographical, or medical or syntax by a trained medical secretary receptionist.
--- OUTSIDE RECORDS SUMMARY | 2025-01-31 02:23 | XMS_ITS | Data Portability ---
Author Organization [facility], [facility] Address [address] [place] [address] Assessment No assessment recorded. Plan of Treatment Reminders Order Date Submit Date Provider Last Modified By Organization Details Last Modified Time Details Appointments None recorded. Lab None recorded. Referral None recorded. Procedures None recorded. Surgeries None recorded. Imaging None recorded. Medication Orders Medrol (Rex) 4 mg tablets in a dose pack 2022 023 [facility], [address] [place] [address], [phone], 16:54:18 cyclobenzap rine 5 mg tablet 2022 023 [facility], [facility] [place], [place], [id number], 16:54:27 Patient TargetsNo targets recorded. Patient InstructionsNo instructions recorded. Reason for Referral None Reported. Results Created Date Observation Date Name Description Value Unit Range Abnormal Flag Note LastModifiedBy Organization Detail LastModifiedTime Result Notes None recorded. Problems Name Problem SNOMED Code Status Onset Date Resolution Date Notes Provider Name and Address Organization Details Recorded Time Neck pain 22104459 [facility] 16:44:06 Problem Notes None recorded. Medical [...] Address Organization Details Last Updated DateTime 3 64396.5 9 g 75 % 24 kg/m2 172.72 cm 8 17 /min 98.7 [degF] 75 /min 100 % 100 % 120 mm[Hg] 70 mm[Hg] Analilia Lemon [facility] 16:21:52 Social History Question Answer Notes LastModified by Organizat ion Details LastModified Time Tobacco Smoking Status Never Smoker Analilia Lemon [facility] 12/19/2022 16:19:49 What Is Your Level Of Alcohol Consumption? None [email or web address] Information not available 12/19/2022 What Is Your Level Of Caffeine Consumption? None [email or web address] Information not available 12/19/2022 In The 14 Days Before Symptom Onset, Have You Had Close Contact With A Laboratory-confir med COVID-19 While That Case Was Ill? No [email or web address] Information not available 12/19/2022 In The 14 Days Before Symptom Onset, Have You Had Close Contact With A Person Who Is Under Investigation For COVID-19 While That Person Was Ill? No [email or web address] Information not available 12/19/2022 Do You Or Have You Ever Used E-cigarettes Or Vape? Former User Of Electronic Cigarettes Quit About 4 Months Ago [email or web address] Information not available 12/19/2022 What Was The Date Of Your Most Recent Tobacco Screening? 12/19/2022 [email or web address] Information not available 12/19/2022 Do You Or Have You Ever Used Smokeless Tobacco? Never Used Smokeless Tobacco [email or web address] Information not available 12/19/2022 Do You Use Any Illicit Or Recreational Drugs? No [email or web address] Information not available 12/19/2022 Have You Recently Traveled Abroad? No [email or web address] Information not available 12/19/2022 Do You Or Have You Ever Used Any Other Forms Of Tobacco Or Nicotine? Yes [email or web address] Information not available 12/19/2022 Sex: Unknown Functional Status None recorded. Mental Status None recorded. Family History Nothing Reported. Medical History No medical history recorded. Gynecological History Statement/Question Response Date of LMP 12/04/2022 Obstetrics History GPAL:G 0 P 0 0 0 0 Immunizations Vaccine Type Date Status Note Provider Nam e and Address Organization Details Recorded Time Hib, unspecified formulation 5 desiree acosta, [facility] 06/20/2023 14:41:02 Hib, unspecified formulation 5 desiree acosta, [facility] 06/20/2023 14:41:02 Hib, unspecified formulation 5 desiree acosta, [facility] 06/20/2023 14:41:02 HPV9 8 desiree Lilly null, [facility] 06/20/2023 14:41:02 HPV9 9 desiree acosta, [facility] 06/20/2023 14:41:02 IPV 5 desiree acosta, [facility] 06/20/2023 14:41:02 IPV 5 desiree acosta, [facility] 06/20/2023 14:41:02 MMR 5 desiree acosta, [facility] 06/20/2023 14:41:02 MMR 9 completed Rebecca Lilly null, [facility] 06/20/2023 14:41:02 COVID-19, mRNA, LNP-S, PF, 30 mcg/0.3 mL dose 1 completed Rebecca Lilly null, [facility] 06/20/2023 14:41:02 COVID-19, mRNA, LNP-S, PF, 30 mcg/0.3 mL dose 1 completed Rebecca Lilly null, [facility] 06/20/2023 14:41:02 pneumococcal conjugate PCV 7 5 completed Rebecca Lilly null, [facility] 06/20/2023 14:41:02 pneumococcal conjugate PCV 7 5 completed Rebecca Lilly null, [facility] 06/20/2023 14:41:02 pneumococcal conjugate PCV 7 5 completed Rebecca Lilly null, [facility] 06/20/2023 14:41:02 DTaP-IPV 9 completed Rebecca Lilly null, [facility] 06/20/2023 14:41:02 influenza, unspecified formulation 6 completed Rebecca Lilly null, [facility] 06/20/2023 14:41:02 Tdap 8 completed Rebecca Lilly null, [facility] 06/20/2023 14:41:02 varicella 5 completed Rebecca Lilly null, [facility] 06/20/2023 14:41:02 varicella 9 completed Rebecca Lilly null, [facility] 06/20/2023 14:41:02 influenza, split (incl. purified surface antigen) 0 completed Rebecca Lilly null, [facility] 06/20/2023 14:41:02 Hep B, adolescent or pediatric 5 desiree Lilly null, [facility] 06/20/2023 14:41:02 Hep B, adolescent or pediatric 4 completed Rebecca Lilly null, [facility] 06/20/2023 14:41:02 meningococcal MCV4P 8 desiree acosta, [facility] 06/20/2023 14:41:02 meningococcal MCV4P 0 desiree acosta, [facility] 06/20/2023 14:41:02 DTaP 5 desiree Rebecca Lilly dave, [facility] 06/20/2023 14:41:02 DTaP 5 desiree Rebeccaandrea Lilly null, [facility] 06/20/2023 14:41:02 DTaP-Hep B-IPV 5 desiree Rebecca Lilly dave, [facility] 06/20/2023 14:41:02 Influenza, split virus, quadrivalent, PF 8 desiree acsota, [facility] 06/20/2023 14:41:02 Past Encounters Encounter ID Performer Location Encounter Start Date Encounter Closed Date Diagnosis/Indication Diagnosis SNOMED-CT Code Diagnosis ICD10 Code Diagnosis Note [id number] Sarbjit Jenkins [address] [address] 12/19/2022 15:59:56 12/19/2022 16:54:35 Neck pain 51793015 M54.2 No radiculopa thy.Trigge r point? Apply [...] Rivers Member ID Guarantor Name 12/19/2022 1 [facility] (MEDICAID HMO) [id number] 0003 Lani Ho [id number] Lani Ho Notes Date Note Type Note [...] missing school yesterday, and today. Sarbjit acosta, [facility] 12/19/2022 16:51:04 OBGyn Episode No OBEpisode recorded.
--- OUTSIDE RECORDS SUMMARY | 2025-01-31 02:23 | XMS_ITS | Data Portability ---
[facility] Address [address] [place] [address] Assessment No assessment recorded. Plan of Treatment Reminders Order Date Submit Date Provider Last Modified By Organization Details Last Modified Time Details Appointments None recorded. Lab CBC w/ auto diff 2024 025 [place] [email or web address], [address] [place], [address], 5 12:24:38 glucose tolerance test, post-50G, 1-hour 2024 025 [facility], [address] [place], [address], 5 12:35:39 obstetric screen, serum or blood 2024 025 [place] [email or web address], [address] [place], [address], 5 14:47:18 Referral None recorded. Procedures None recorded. Surgeries None recorded. Imaging None recorded. Medication Orders None recorded. Patient TargetsNo targets recorded. Patient Instructions Encounter Date Encounter Id Patient Instructions Last Modified By Organization Details Last Modified Time 11/18/2024 [id number] learning about screening for gestational diabetes Not available 11/18/2024 15:10:20 11/26/2024 [id number] Anxiety During and After : Care Instructions Not available 11/26/2024 17:57:56 Reason for Referral None Reported. Results Created Date Observation Date Name Description Value Unit Range Abnormal Flag Note LastModifiedBy Organization Detail LastModifiedTime 11/18/1911/19/2024 CBC (INCL UDES DIFF/ PLT) WBC 7.6 thous and/u L 4.0 - 9.8 normal Not Available [email or web address] [address] [place] [address], [address], 11/19/2024 12:24:38 11/18/19 25 11/19/2024 CBC (INCL UDES DIFF/ PLT) RBC 3.4 jonathon on/uL 3.9 - 4.9 low Not Available [email or web address] [address] [place] [address], [address], 11/19/2024 12:24:38 11/18/19 25 11/19/2024 CBC (INCL UDES DIFF/ PLT) hemoglobin 11.0 g/dL 11.8 - 14.8 low Not Available [email or web address] [address] [place] [address], [address], 11/19/2024 12:24:38 11/18/19 25 11/19/2024 CBC (INCL UDES DIFF/ PLT) hematocrit 32.6 % 35.5 - 44.0 low Not Available [email or web address] [address] [place] [address], [address], 11/19/2024 12:24:38 11/18/19 25 11/19/2024 CBC (INCL UDES DIFF/ PLT) MCV 96.7 fL 82.0 - 99.0 normal Not Available [email or web address] [address] [place] [address], [address], 11/19/2024 12:24:38 11/18/1911/19/2024 CBC (INCL UDES DIFF/ PLT) MCH 32.6 pg 27.2 - 32.6 normal Not Available [email or web address] [address] [place] [address], [address], 11/19/2024 12:24:38 11/18/19 25 11/19/2024 CBC (INCL UDES DIFF/ PLT) MCHC 33.7 g/dL 31.5 - 35.5 normal Not Available [email or web address] [address] [place] [address], [address], 11/19/2024 12:24:38 11/18/19 25 11/19/2024 CBC (INCL UDES DIFF/ PLT) RDW-CV 12.2 % 11.5 - 14.5 normal Not Available [address], [address], 11/19/2024 12:24:38 11/18/19 25 11/19/2024 CBC (INCL UDES DIFF/ PLT) platelet 294 thous and/u L 140 - 350 normal Not Available [address], [address], 11/19/2024 12:24:38 11/18/19 25 11/19/2024 CBC (INCL UDES DIFF/ PLT) MPV 10.4 fL 9.3 - 12.4 normal Not Available [address], [address], 11/19/2024 12:24:38 11/18/19 25 11/19/2024 CBC (INCL UDES DIFF/ PLT) absolute neutrophil 5.66 thous and/u L 1.90 - 7.00 normal Not Available [address], [address], 11/19/2024 12:24:38 11/18/19 25 11/19/2024 CBC (INCL UDES DIFF/ PLT) absolute lymphocyte 1.32 thous and/u L 0.70 - 4.50 normal Not Available [address], [address], 11/19/2024 12:24:38 11/18/19 25 11/19/2024 CBC (INCL UDES DIFF/ PLT) absolute monocyte 0.46 thous and/u L 0.10 - 1.30 normal Not Available [address], [address], 11/19/2024 12:24:38 11/18/19 25 11/19/2024 CBC (INCL UDES DIFF/ PLT) absolute eosinophil 0.05 thous and/u L <0.70 normal Not Available [address], [address], 11/19/2024 12:24:38 11/18/19 25 11/19/2024 CBC (INCL UDES DIFF/ PLT) absolute basophil 0.03 thous and/u L <0.20 normal Not Available [address], [address], 11/19/2024 12:24:38 11/18/19 25 11/19/2024 CBC (INCL UDES DIFF/ PLT) absolute immature granulocyte 0.08 thous and/u L <0.03 high Not Available [address], [address], 11/19/2024 12:24:38 11/18/19 25 11/19/2024 (50G) 1HR - GLUCO SE GIA ANCE TEST, GESTA ELDER L SCREE N glucose (50g) 1 hour 144 mg/dL <135 high Not Available [address], [address], 11/19/2024 12:35:39 11/18/19 25 11/19/2024 OB 28W (SYPH HIV 1/2 Ag/Ab Non-Re active non-re active normal Not Available [address], [address], 11/19/2024 14:47:18 11/18/19 25 11/19/2024 OB 28W (SYPH syphilis Ab Non-Re active non-re active normal Not Available [address], [address], 11/19/2024 14:47:18 11/23/19 25 11/24/2024 (100G ) 3HR - GLUCO SE GIA ANCE TEST, GESTA ELDER L SCREE N glucose (100g) fasting 86 mg/dL <95 normal Not Available [address], [address], 11/24/2024 14:31:33 11/23/19 25 11/24/2024 (100G ) 3HR - GLUCO SE GIA ANCE TEST, GESTA ELDER L SCREE N glucose (100g) 1 hour 198 mg/dL <180 high Not Available [facility] [address] [place], [address], 11/24/2024 14:31:33 11/23/19 25 11/24/2024 (100G ) 3HR - GLUCO SE GIA ANCE TEST, GESTA ELDER L SCREE N glucose (100g) 2 hour 163 mg/dL <155 high Not Available [facility] [address] [place], [address], 11/24/2024 14:31:33 11/23/19 25 11/24/2024 (100G ) 3HR - GLUCO SE GIA ANCE TEST, GESTA ELDER L SCREE N glucose (100g) 3 hour 145 mg/dL <140 high Not Available [facility] [address] [place], [address], 11/24/2024 14:31:33 09/23/20 24 09/23/2024 US, obste tric, 2nd trime ster No observ ation record ed. [email or web address] [facility] [address] [place] [address], [address], 09/24/2024 15:24:20 10/23/20 24 10/21/2024 US, obste tric No observ ation record ed. [email or web address] [facility] [address] [place] [address], [address], 11/30/2024 13:18:29 11/20/19 25 11/19/2024 US, obste tric No observ ation record ed. [email or web address] [facility] [address] [place] [address], [address], 12/02/2024 14:05:06 Result Notes None recorded. 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) WOLF GUADARRAMA NP [address] [place] [address], [address], [place] [facility] 5 18:48:16 RhD negative 007969696 Active 2024 RH (D) NIPT detected will [place] [address] [place] [address], [address], [place] [facility] 5 18:49:16 Large for gestation age fetus 202955134 Active 2024 EFW 98%tile on 10/22 Echogenic bowel 11/19-94%til e WOLF GUADARRAMA NP [facility] [place], [address], [place] - [facility] 5 14:05:39 Gestationa l diabetes mellitus 53085721 Active 2024 WOLF GUADARRAMA NP [facility] [place], [address], [place] - [facility] 5 17:52:44 Problem Notes None recorded. Procedures Surgical History Date Name Laterality Status Provider Name and Address Organization Details Recorded Time Appendectomy completed Rebecca Chadwick [place] - [facility] 06/09/2024 15:08:50 Imaging Results Imaging Date Name Status LastModified by Organiz ation Details LastModified Time 09/23/2024 US, obstetric, 2nd trimester completed [email or web address] [facility] [address] [place] [address], [address], 09/24/2024 15:24:20 10/21/2024 US, obstetric completed formerly [facility] [address] [place], [address], 11/30/2024 13:18:29 11/19/2024 US, obstetric completed formerly [facility] [address] [place], [address], 12/02/2024 14:05:06 Procedure Notes None recorded. Medical [...] 4 172.72 cm 26 kg/m2 83 % 73539.2 9527 g 120 mm[Hg] 70 mm[Hg] Lucinaandrea Rossi [facility] IV 4 15:43:01 Date Recorded Body weight Body mass index (BMI) Percentile per age and sex Body mass index (BMI) Body height Body temperature Systolic blood pressure Diastolic blood pressure Provider Name and Address Organization Details Last Updated DateTime 4 30771.8 72189 g 85 % 26.7 kg/m2 172.72 cm 96.6 [degF] 118 mm[Hg] 68 mm[Hg] Cristela Harpersangeeta [facility] IV 4 14:19:52 Date Recorded Body weight Body mass index (BMI) Body mass index (BMI) Percentile per age and sex Body height Systolic blood pressure Diastolic blood pressure Provider Name and Address Organization Details Last Updated DateTime 5 49589.4 4186 g 27.1 kg/m2 86 % 172.72 cm 110 mm[Hg] 70 mm[Hg] [facility] IV 5 14:46:18 Date Recorded Body weight Body mass index (BMI) Body mass index (BMI) Percentile per age and sex Body height Systolic blood pressure Diastolic blood pressure Provider Name and Address Organization Details Last Updated DateTime 5 39612.6 266 g 27.4 kg/m2 87 % 172.72 cm 112 mm[Hg] 68 mm[Hg] [facility] IV 5 16:44:47 Date Recorded Body weight Body mass index (BMI) Percentile per age and sex Body mass index (BMI) Body height Systolic blood pressure Diastolic blood pressure Provider Name and Address Organization Details Last Updated DateTime 5 58871.8 4949 g 86 % 26.9 kg/m2 172.72 cm 112 mm[Hg] 70 mm[Hg] [facility] IV 5 14:34:15 Social History Question Answer Notes LastModified by Organizat ion Details LastModified Time Tobacco Smoking Status Never Smoker Rebecca acosta, [facility] IV 06/09/2024 15:08:08 What Is Your Level Of Alcohol Consumption? None [email or web address] Information not available 06/09/2024 If You Are , What Was Your Level Of Alcohol Consumption Prior To ? None [email or web address] Information not available 06/09/2024 Are You Blind [...] What Is Your Relationship Status? Domestic Partner [email or web address] Information not available 06/09/2024 Are You Sexually Active? Yes [email or web address] Information not available 06/09/2024 Do You Use Any Illicit Or Recreational Drugs? No [email or web address] Information not available 06/09/2024 Do You Or [...] Time Father No current problems or disability [email or web address] Not available 05/13 15:07:47 Mother No current problems or disability [email or web address] Not available 05/13 15:07:47 Medical History Condition Response High Blood Pressure N Cytomegalovirus N Hyperthyroidism N MRSA N Blood Transfusion N Depression N Incontinence N Anxiety Disorder N Autoimmune disease N Arthritis N Polycystic Ovarian Syndrome N Infertility N Hematuria N Varicosities N Stroke N Crohn's Disease N Seasonal allergies N Alzheimer's/Dementia N COPD/Emphysema N History of Abnormal Pap N Fibromyalgia N Kidney Infection N Kidney Disease N Gallbladder disease N Von Willebrand disease N Eating Disorder N Diabetes Mellitus (non-insulin dependent ) N Ovarian Problems N Frequent Urinary Tract infections N Osteopenia N GERD (reflux) N Diabetes (insulin dependent) N Asthma N Heart Attack N Endometrial Cancer N Hepatitis N Pulmonary Embolism N RPR N Chicken Pox N Other Cancer N Colon Cancer N Breast Cancer N Herpes (HSV) N Lung Cancer N Hypothyroidism N Panic Attacks N Neurological Disorder N Deep Vein Thrombosis N Tuberculosis/Positive PPD N Shingles N Cervical Cancer N Chlamydia N HPV/Genital Warts N Endometriosis N IBS (Irritable Bowel Syndrome) N High Cholesterol N Liver Disease N Ulcer N HIV N Sickle Cell Disease/Trait N ADD/ADHD N Anemia N Multiple Sclerosis N Gonorrhea N Headaches/migraines N Ovarian Cancer N Seizures/Epilepsy N Breast Problems N Fibroids N Lupus N Rubella N Blood Clotting Disorder N Bipolar Disorder N Diabetes Mellitus (during ) N Ulcerative Colitis N Heart Disease N Osteoporosis N Gynecological History Statement/Question Response [...] SNOMED-CT Code Diagnosis ICD10 Code Diagnosis Note [id number] WOLF GUADARRAMA NP [address] [address] 06/09/2024 15:02:07 06/10/2024 15:59:32 Missed period 51346603 N92.6 Patient with possible early gestation. Patient is unsure of LMP possibly 6.17.24. Denies VB or abnormal discharge. SAB precaution s reviewed. To RTC in 2-3 weeks for repeat TVUS [id number] WOLF GUADARRAMA NP [place] [address] [place] [address] 06/23/2024 14:51:10 06/23/2024 16:28:07 test positive 907989739 Z32.01 Pt presents today for a confirmati [...] vitamins daily---To xoplasmosi s precaution s reviewed-- -[facility] Guide; What to expect on your maternity journey -- -S/S of SAB reviewed and when to seek care RTC for 1st OB, Labs, and Physical. --BMI:24.9 [id number] WOLF GUADARRAMA NP [facility] [address] [place] [address] 07/22/2024 16:12:51 07/22/2024 16:55:54 Gestation period, 11 weeks 25287219 Z3A.11 screening 2437 78099 Z36.89 Normal 3499114 2 Z34.90 Pt comes in today for a New/First OB visit.Gest ation:11 w3 dEDD: -- PMH: Anxiety-- Medication s: Taking daily PNV, paxton supp for N/V and tylenol-- Previous OB History: n/a-- Mom/Sister s with hx of Pre-Eclamp kelli:denies -- History of Genital HSV:denies -- Genetic Questions in OB Episode Done-- Accepts [facility]. Discussed logging on to the [facility] portal to find Gender Results POC-- NOB labs done today-- Accepts [facility] -- RTC 4 weeks Guide: Given and reviewed. Toxoplasmo sis precaution s reviewed. Reviewed office visit schedule during . Reviewed Quickening and normal FHTs. Carrier de tection, molecular genetics 5572050 Z14.8 [id number] WOLF GUADARRAMA NP [address] [address] 08/19/2024 16:40:21 08/21/2024 12:29:30 Normal 00859227 Z34.90 Pt is here for a KEYONNA [...] for pre-term labor. Gestation period, 15 weeks 2959121 Z3A.15 declines AFP will offer again at next appt. [id number] WOLF GUADARRAMA NP [facility] [address] [place] [address] 09/07/2024 15:50:39 09/07/2024 16:37:32 Normal 83872170 Z34.92 Pt is here for a KEYONNA [...] for pre-term labor. Gestation period, 18 weeks 75863028 Z3A.18 [id number] WOLF GUADARRAMAJENNIFER [address] [address] 09/30/2024 15:30:33 10/03/2024 14:06:30 Normal 27739320 Z34.90 Pt is here for a KEYONNA [...] for pre-term labor. Gestation period, 21 weeks 30445067 Z3A.21 Backache 647274284 O99.8 91 M54.9 [id number] WOLFSTEPHENIE GUADARRAMA NP [address] [address] 10/21/2024 14:10:22 10/21/2024 14:50:59 Gestation period, 24 weeks 634606911 Z3A.24 Normal 3159937 2 Z34.92 Pt is here for a KEYONNA appointmen t. She is taking vitamins. She has no complaints or questions. Reports feeling movement. Denies vaginal bleeding, abdominal cramps, N/V, contractio ns, or LOF. Denies headache, vision changes, swelling of hands or face, and epigastric pain. Discussed PTL and precaution s given. There are no identifiab le risk factors for pre-term labor. [id number] WOLF GUADARRAMA NP [facility] [address] [place] [address] 11/18/2024 14:41:31 11/19/2024 15:28:39 Normal 66442954 Z34.92 Pt is here for a KEYONNA [...] for pre-term labor. Gestation period, 28 weeks 34271550 Z3A.28 screening 2437 [address]47 Z36.89 [id number] WOLF GUADARRAMA NP [facility] [address] [place] [address] 11/26/2024 16:40:34 11/29/2024 05:26:51 Gestational diabetes mellitus complicating 7313410591 9106 O24.419 *GDM education completed. Discussed diet- [...] for pre-term labor. Gestation period, 29 weeks 39445954 Z3A.29 [id number] WOLF GUADARRAMA NP [facility] [address] [place] [address] 12/02/2024 14:30:01 12/04/2024 14:24:45 High risk 42640975 O09.90 Pt is here for a KEYONNA [...] for pre-term labor. Gestation period, 30 weeks 46289694 Z3A.30 Gestationa l diabetes mellitus 15847818 O24.410 Health Concerns Section Related Observation LastModified by Organization Detai ls LastModified Time None Recorded Concern Status LastModified by Organization Details LastModified Time None Recorded Advance Directives Directive None Recorded Payers Encounter Date Sequence Insurance Name Policy Number Policy Rivers Covered Member ID Rivers Member ID Guarantor Name 09/30/2024 1 [facility] (MEDICAID HMO) [id number] Lani Ho [id number] Lani Ho 10/21/2024 1 [facility] (MEDICAID HMO) [id number] Lani Ho [id number] Lani Ho 11/26/2024 1 [place] Lani Ho [id number] Lani Ho 12/02/2024 1 [place] Lani Ho [id number] Lani Ho Notes Date Note Type Note Provider Name and Address Organization Details Recorded Time 09/30/2024 text/html Lani is 21.3 weeks. She is here for a routine visit. She reports normal movement and she is taking vitamins. Anatomy scan was done at [facility]. WOLF GUADARRAMA NP [address] [facility], [place], [address], [facility] IV 10/01/2024 10:29:53 10/21/2024 [...] or visual disturbances. WOLF GUADARRAMA NP [address] [place], [address], [facility] [email or web address] IV 10/21/2024 14:38:09 11/18/2024 text/html Patient is [...] @ 1:48 p.m. WOLF GUADARRAMA NP [address] [place], [address], [facility] IV 11/18/2024 18:56:16 11/26/2024 text/html Patient is [...] has no concerns. WOLF GUADARRAMA NP [address] [place], [address], [facility] IV 11/26/2024 17:58:04 12/02/2024 text/html Patient is [...] Pt. has no concerns. WOLF GUADARRAMA NP [address] [facility], [place], [address], [facility] 12/03/2024 14:55:08 OBGyn Episode Ob Episode Information Episode Created Date Number of Fetuses Patient Bloodtype Patient rh Status Prepregnancy Weight lbs Domestic Partner Domestic Partner Phone Father Name Header Dock Status 07/22/20 24 1 B Negative OPEN Fetus Data First Name Last Name Admitted to NICU Weight (g) Sex Living Outcome Pediatric Complications Fetus ID Race Codes Race Delivery Type [id number] Problems Problem Notes Problem Name Start Date End Date Resolution Snomed Code Not e RhD negative 11/18/2024 105053344 RH (D) NIPT detected will need Rhogam PP Large for gestation age fetus 11/18/20241995494327974 EFW 98%tile on 10/22 Echogenic bowel 11/19-94%tile Rubella non-immune 11/18/2024 146510613 Gestational diabetes mellitus 11/26/2024 65179166 Abnormal finding on screening of mother 11/18/2024 704438195 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) Taye Calculation [...] in lbs Pre/Post Dialysis Refused With clothes 164.318923775610 BP Diastolic BP Location Tested BP Systolic [...] in lbs Pre/Post Dialysis Refused With clothes 164.123753574738 BP Diastolic BP Location Tested BP Systolic [...] in lbs Pre/Post Dialysis Refused With clothes 165.449973950075 BP Diastolic BP Location Tested BP Systolic [...] Type Weight in lbs Pre/Post Dialysis Refused 171.651179663086 BP Diastolic BP Location Tested BP Systolic [...] in lbs Pre/Post Dialysis Refused With clothes 175.011485821450 BP Diastolic BP Location Tested BP Systolic [...] Type Weight in lbs Pre/Post Dialysis Refused 178.393948023751 BP Diastolic BP Location Tested BP Systolic [...] Type Weight in lbs Pre/Post Dialysis Refused 180.177033779823 BP Diastolic BP Location Tested BP Systolic [...] Type Weight in lbs Pre/Post Dialysis Refused 177.262189147030 BP Diastolic BP Location Tested BP Systolic [...]
--- OUTSIDE RECORDS SUMMARY | 2025-01-31 02:23 | XMS_ITS | Clinical Summary ---
Author Organization [facility] Address [address] [place] [address] Care Team Providers Care Microsystems Engineer Name Role Phone Geovanna Pryor NP Primary [...] age to complete this topic Care Teams Microsystems Engineer Relationship Specialty Start Date End Date Geovanna Pryor NP [address] [place] [address] PCP - General Nurse Practitioner Family 06/17/19 Geovanna Pryor NP [address] [place] [address] 06/17/19
--- OUTSIDE RECORDS SUMMARY | 2025-01-31 02:23 | XMS_ITS ---
Author Organization Unknown Address [address] [place] [address] [phone] Phone Care Team Providers Care Artillery Meteorological Man Name Role Phone ATIYA Lezama MD Attending [...] em Smoking History Never smoker (Never Smoked) 881310274 SNOMED CT Sex Female Sexual Orientation Straight or Heterosexual 40170286 SNOMED CT Gender Identity Female [id number] Vital Signs Vital Sign Value Unit [place] Value [place] Unit Date/Time Recent/Initial? Code Code System Body Mass Index 22.93 kg/m2 09/12/2022 17:59 Initial 38056 -5 [facility] Body Mass Index Percentile 67 % 09/12/2022 17:59 Initial 35412 -9 [facility] Systolic Blood Pressure 100 mm[Hg] 09/12/2022 17:59 Initial 8480- 6 [facility] Diastolic Blood Pressure 70 mm[Hg] 09/12/2022 17:59 Initial 8462- 4 [facility] Body Surface Area 1.81 m2 09/12/2022 17:59 Initial 3140- 1 [facility] Height 172.720 0 cm 68.00 in 09/12/2022 17:59 Initial 8302- 2 [facility] O2 Saturation 99 % 2021 17:59 Initial 49367 -5 [facility] Pulse 95.0 /min 09/12/2022 17:59 Initial 8867- 4 [facility] Respiration 18 /min 09/12/20 17:59 Initial 9279- 1 [facility] Temperature 36.9 Antonella 98.4 F 09/12/20 17:59 Initial 8310- 5 [facility] Weight 68.40 kg 150.80 lbs 09/12/2022 17:59 Initial 57130 -7 [facility] Medications Medication Start Date End Date Route Frequency Dose Code Code System Medication Instructions Home Meds Anel-28 30MCG-0.15MG-NA Oral Tablet 06/07/2022 09/12/2022 By Mouth Daily 1 TABLET 708044 RxNorm 1 TABLET By Mouth Daily Diflucan 150MG Oral Tablet 08/07/2022 09/12/2022 By Mouth x1 NOW 1 TABLET 365627 RxNorm 1 TABLET By Mouth x1 NOW FOR MARCH REPEAT IN 72 HOURS Radha 28 3MG-0.02MG Oral Tablet 09/12/2022 12/25/2022 By Mouth Once a day 1 TABLET RxNorm 1 TABLET By Mouth Once a day Medrol Dosepak 4MG Oral Tablet 12/25/2022 02/20/2023 By Mouth As Directed 1 PACK 863956 RxNorm 1 PACK By Mouth As Directed Methocarbamol 750MG Oral Tablet 12/25/2022 03/12/2023 By Mouth As needed every 8 hr 055118 RxNorm 1-2 TABLET By Mouth As needed every 8 hr [place]-28 30 MCG-0.15 MG; NA Oral Tablet 12/25/2022 03/12/2023 By Mouth Daily 1 TABLET 676260 RxNorm 1 TABLET By Mouth Daily Macrobid 100MG Oral Capsule 02/20/2023 03/12/2023 By mouth Twice a day 1 TABLET 204330 RxNorm 1 TABLET By mouth Twice a day X 7 DAYS Pyridium 100MG Oral Tablet 02/20/2023 03/12/2023 By mouth As needed every 8 hr 1 TABLET 4144784 RxNorm 1 TABLET By mouth As needed every 8 hr for urinary pain ZyrTEC Allergy 10MG Oral Capsule, Liquid Filled 03/12/2023 Unknown By Mouth Daily 1 CAPSULE 9101189 RxNorm 1 CAPSULE By Mouth Daily Fluticasone 0.05MG/1Actuatio n Nasal [place] 03/12/2023 Unknown Nasal Daily 1 Sprays 6115220 RxNorm 1 Spra ys Nasal Daily Azithromycin 500MG Oral Tablet 06/04/2024 Unknown By Mouth x1 NOW 2 TABLET 670875 RxNorm 2 TABLET By Mouth x1 NOW Assessment You had the following problems:SEASONAL ALLERGYFAMILY PLANNINGBITE OF INSECTCANDIDA OF VAGINAMENORRHAGIAPAINFUL NECK Assessment/Plan: 1) Menorrhagia: Will check TSH, T4, CBC, PT/INR, and CMP. Will discontinue the Anel and start her on Radha 1 tablet daily. 2) Contraceptive management: Patient is currently on [place] but this is not managing her periods [...] Status Code Code System SEASONAL ALLERGY active 240357994 SNO MED-CT FAMILY PLANNING 06/20/2020 active 471125499 SNO MED-CT BITE OF INSECT active 789694647 SNOME D-CT ES OF VAGINA 08/07/2022 active 98189237 S NOMED-CT MENORRHAGIA active 288219246 SNOMED-C T PAINFUL NECK active 90307746 SNOMED- CT ADHD OF CHILDHOOD 07/22/2019 resolved 344337273 S NOMED-CT SEASONAL NASAL ALLERGY 07/22/2019 resolved 367415 001 SNOMED-CT HISTORY OF [place] 07/22/2019 resolved 2194957 08 SNOMED-CT Allergies and Adverse Reactions Allergy Substance Reaction Severity Start Date Concern Status Co de Code System Active seasonal allergies Active No Known Drug Allergies Active 689441411 SNOMED-CT No Known Drug Allergies Active 545942261 SNOMED-CT Plan of Treatment Description Due Date Details Instructions DEPRESSION SCREENING DUE 06/20/2021 Future Order Description Future Order Date Futu re Order Loinc: TSH 09/12/2022 LOINC: 82292-1 FREE T4 09/12/2022 LOINC: 3024-7 CBC W DIFF 09/12/2022 LOINC: 40124-7 COMPREHENSIVE METABOLIC PANEL 09/12/2022 L OINC: 23653-7 PT (PROTIME) 09/12/2022 LOINC: 6301-6 Encounters Encounter Diagnosis Start Date Code Code Sys tem Excessive and frequent menstruation 09/12/2022 86997 1003 SNOMED-CT Personal Care Team Section Performer Name Performer Role Active Date Inactive Da te Progress Notes [facility] 09/13/2022 09:49 Admission Date/Time: 09/12/2022 13:21 Rachael Andersen MD Clinic Visit Note Chief Complaint: DISCUSS BC Has the patient received a COVID Vaccine? Yes Nurse Note: this nurse note is documented by Opal Ly CMA 17 yr old female present to [facility] today to discuss BC History of Present Illness: An 17-year-old presents to [facility] today to discuss BC. Patient states [...] CBC, PT/INR, and CMP. Will discontinue the [place] and start her on Radha 1 tablet daily. 2) Contraceptive management: Patient is currently on [place] but this is not managing her periods [...] records Referring and communicating with other health intensive care ambulance paramedic Obtaining and/or reviewing separately obtained history Independent [...] 1 TABLET By Mouth Daily 06/07/2022 Blanco aGllego
--- OUTSIDE RECORDS SUMMARY | 2025-01-31 02:23 | XMS_ITS ---
Author Organization Unknown Address [address] [place], [place] [phone] Phone Care Team Providers Care Speech Language Assistant Name Role Phone mattyKlausSHERMAN Machado Social History Type Status Start Date End Date Code Code Syst em Smoking History Never smoker (Never Smoked) 572653092 SNOMED CT Sex Female Sexual Orientation Straight or Heterosexual 50957526 SNOMED CT Gender Identity Female [id number] [address] Medications Medication Start Date End Date Route Frequency Dose Code Code System Medication Instructions Home Meds ZyrTEC Allergy 10MG Oral Capsule, Liquid Filled 03/12/2023 Unknown By Mouth Daily 1 CAPSULE 6809648 RxNorm 1 CAPSULE By Mouth Daily Fluticasone 0.05MG/1Actuatio n Nasal [place] 03/12/2023 Unknown Nasal Daily 1 Sprays 8200076 RxNorm 1 Spra ys Nasal Daily Azithromycin 500MG Oral Tablet 06/04/2024 Unknown By Mouth x1 NOW 2 TABLET 364143 RxNorm 2 TABLET By Mouth x1 NOW [...] Status Code Code System SEASONAL ALLERGY active 853279121 SNO MED-CT FAMILY PLANNING 06/20/2020 active 512249116 SNO MED-CT BITE OF INSECT active 454873871 SNOME D-CT ES OF VAGINA 08/07/2022 active 02738216 S NOMED-CT MENORRHAGIA active 910408429 SNOMED-C T PAINFUL NECK active 98468781 SNOMED- CT ADHD OF CHILDHOOD 07/22/2019 resolved 644798181 S NOMED-CT SEASONAL NASAL ALLERGY 07/22/2019 resolved 089430 001 SNOMED-CT HISTORY OF [place] 07/22/2019 resolved 0109677 08 SNOMED-CT Allergies and Adverse Reactions Allergy Substance Reaction Severity Start Date Concern Status Co de Code System Active seasonal allergies Active No Known Drug Allergies Active 406057937 SNOMED-CT No Known Drug Allergies Active 056083608 SNOMED-CT Plan of Treatment Description Due Date Details Instructions DEPRESSION SCREENING DUE 06/20/2021 Encounters Encounter Diagnosis Start Date Code Code Sys tem Dysuria 06/03/2024 92358317 SNOMED-CT Personal Care Team Section Performer Name Performer Role Active Date Inactive Da te
--- OUTSIDE RECORDS SUMMARY | 2025-01-31 02:23 | XMS_ITS ---
Author Organization Unknown Address [address] [place] [address] [phone] Phone Care Team Providers Care Mechanical Service Specialist Name Role Phone Blanco Gallego Attending Unavailable [...] em Smoking History Never smoker (Never Smoked) 380895757 SNOMED CT Sex Female Sexual Orientation Straight or Heterosexual 67138666 SNOMED CT Gender Identity Female [id number] [address] Vital Signs Vital Sign Value Unit [place] Value [place] Unit Date/Time Recent/Initial? Code Code System Body Mass Index 21.85 kg/m2 06/07/2022 14:23 Initial 35020 -5 [facility] Body Mass Index Percentile 57 % 06/07/2022 14:23 Initial 35744 -9 [facility] Systolic Blood Pressure 118 mm[Hg] 06/07/2022 14:23 Initial 8480- 6 [facility] Diastolic Blood Pressure 72 mm[Hg] 06/07/2022 14:23 Initial 8462- 4 [facility] Body Surface Area 1.75 m2 06/07/2022 14:23 Initial 3140- 1 [facility] Height 171.450 0 cm 67.50 in 06/07/2022 14:23 Initial 8302- 2 [facility] O2 Saturation 99 % 2021 14:23 Initial 57339 -5 [facility] Pulse 107.0 /min 06/07/2022 14:23 Initial 8867- 4 [facility] Respiration 20 /min 06/07/20 14:23 Initial 9279- 1 [facility] Temperature 36.6 Antonella 97.8 F 06/07/20 14:23 Initial 8310- 5 [facility] Weight 64.23 kg 141.60 lbs 06/07/2022 14:23 Initial 73795 -7 [facility] Medications Medication Start Date End Date Route Frequency Dose Code Code System Medication Instructions Home Meds predniSONE 50MG Oral Tablet 06/07/2022 07/31/2022 By Mouth Daily 1 TABLET 615523 RxNorm 1 TABLET By Mouth Daily 30MCG-0.15MG-NA Oral Tablet 06/07/2022 09/12/2022 By Mouth Daily 1 TABLET 202983 RxNorm 1 TABLET By Mouth Daily Diflucan 150MG Oral Tablet 08/07/2022 09/12/2022 By Mouth x1 NOW 1 TABLET 591748 RxNorm 1 TABLET By Mouth x1 NOW FOR MARCH REPEAT IN 72 HOURS Radha 28 3MG-0.02MG Oral Tablet 09/12/2022 12/25/2022 By Mouth Once a day 1 TABLET RxNorm 1 TABLET By Mouth Once a day Medrol Dosepak 4MG Oral Tablet 12/25/2022 02/20/2023 By Mouth As Directed 1 PACK 081803 RxNorm 1 PACK By Mouth As Directed Methocarbamol 750MG Oral Tablet 12/25/2022 03/12/2023 By Mouth As needed every 8 hr 558906 RxNorm 1-2 TABLET By Mouth As needed every 8 hr [place]-28 30 MCG-0.15 MG; NA Oral Tablet 12/25/2022 03/12/2023 By Mouth Daily 1 TABLET 237455 RxNorm 1 TABLET By Mouth Daily Macrobid 100MG Oral Capsule 02/20/2023 03/12/2023 By mouth Twice a day 1 TABLET 507291 RxNorm 1 TABLET By mouth Twice a day X 7 DAYS Pyridium 100MG Oral Tablet 02/20/2023 03/12/2023 By mouth As needed every 8 hr 1 TABLET 4742443 RxNorm 1 TABLET By mouth As needed every 8 hr for urinary pain ZyrTEC Allergy 10MG Oral Capsule, Liquid Filled 03/12/2023 Unknown By Mouth Daily 1 CAPSULE 5615249 RxNorm 1 CAPSULE By Mouth Daily Fluticasone 0.05MG/1Actuati on Nasal [place] 03/12/2023 Unknown Nasal Daily 1 Sprays 0507026 RxNorm 1 Spr ays Nasal Daily Azithromycin 500MG Oral Tablet 06/04/2024 Unknown By Mouth x1 NOW 2 TABLET 632471 RxNorm 2 TABLET By Mouth x1 NOW [...] Status Code Code System SEASONAL ALLERGY active 363953344 SNO MED-CT FAMILY PLANNING 06/20/2020 active 210855907 SNO MED-CT BITE OF INSECT active 958675283 SNOME D-CT ES OF VAGINA 08/07/2022 active 63073641 S NOMED-CT MENORRHAGIA active 110823326 SNOMED-C T PAINFUL NECK active 72619638 SNOMED- CT ADHD OF CHILDHOOD 07/22/2019 resolved 472538069 S NOMED-CT SEASONAL NASAL ALLERGY 07/22/2019 resolved 023645 001 SNOMED-CT HISTORY OF [place] 07/22/2019 resolved 9479098 08 SNOMED-CT Allergies and Adverse Reactions Allergy Substance Reaction Severity Start Date Concern Status Co de Code System Active seasonal allergies Active No Known Drug Allergies Active 111794086 SNOMED-CT No Known Drug Allergies Active 400860811 SNOMED-CT Plan of Treatment Description Due Date Details Instructions DEPRESSION SCREENING DUE 06/20/2021 Encounters Encounter Diagnosis Start Date Code Code Sys tem Well child visit 06/07/2022 281678250 SNOMED-CT Personal Care Team Section Performer Name Performer Role Active Date Inactive Da te Progress Notes [facility] 06/07/2022 15:22 All Demographics Patient Name Age Sex Visit Number Admission Date/Time Attending Physician Date of Service Room and Bed Emergency Contact NELA MANZANARES 2005 16 years Female [id number] 06/07/2022 14:22 Julián Simeon 06/07/2022 402 06/07/2022 14:25 Accompanied By: Parent Parent, mother X. Parent, father Guardian Relative administrative services officer Caregiver Family Protective services Friend Healthcare provider Law enforcement Bridge Attacher / EMS Spouse / SO Other: Preferred Language: Setswana. Vital Signs: This Visit Date/Time BP (mm/Hg) [...] environment active No Known Drug Allergies medication mquixux-al-ryiso Nutrition X. Daily fruits and vegetables Iron [...] CAPITALIZED = Focus area for this [facility] Visit Constitutional: None. EYES: None. Head, EARS, NOSE, AND THROAT: None. CARDIOVASCULAR: None. RESPIRATORY: None. GASTROINTESTINAL: None. GENITOURINARY: None. MUSCULOSKELETAL: None. SKIN: None. NEUROLOGICAL: None. Other: None. PHYSICAL EXAMINATION ALL CAPITALIZED and = Focus Area for this [facility] Visit GENERAL: x Well-appearing adolescent x [...] Record reviewed Up-to-date for age Administered Today: Rush Screening Depression Screening (annually) Screening Tool Used: [...] year Next Visit: Referral to: 16 y/o [facility] - Anticipatory guidance and bright futures discussed. Discussed control methods and will start patient on Constantia. Patient to notify office if she is having any side effects. Patient states she is having anxiety, offered multiple options for managing anxiety, patient declines at this time.
--- OUTSIDE RECORDS SUMMARY | 2025-01-31 02:23 | XMS_ITS ---
Author Organization Unknown Address [address] [place] [phone] Phone Care Team Providers Care Sorting Supervisor Name Role Phone JOSUE FULTON Attending Unavailable [...] MICR O - Collect Date/Time: 02/20/2023 18:44 [facility] ID: [id number] [address] [place] [address], [phone] LOINC: Test Value Unit Reference Range Code [...] TEST - Colle ct Date/Time: 02/20/2023 18:43 [facility] ID: [id number] [address] [place] [address], [phone] LOINC: Test Value Unit Reference Range Code Code System Flag TEST PERFORMED URINE PREG (URINE) NEGATIVE LOT#: [id number] EXP DATE: 2023-12-11 QC: ACCEPTABLE Social History Type Status Start Date End Date Code Code Syst em Smoking History Never smoker (Never Smoked) 710749675 SNOMED CT Sex Female Sexual Orientation Straight or Heterosexual 40871548 SNOMED CT Gender Identity Female 54814853851374 [address] Vital Signs Vital Sign Value Unit [place] Value [place] Unit Date/Time Recent/Initial? Code Code System Body Mass Index 24.50 kg/m2 02/20/2023 18:36 Initial 08602 -5 [facility] Body Mass Index Percentile 77 % 02/20/2023 18:36 Initial 76700 -9 [facility] Systolic Blood Pressure 112 mm[Hg] 02/20/2023 18:36 Initial 8480- 6 [facility] Diastolic Blood Pressure 70 mm[Hg] 02/20/2023 18:36 Initial 8462- 4 [facility] Body Surface Area 1.85 m2 02/20/2023 18:36 Initial 3140- 1 LOINC Height 171.450 0 cm 67.50 in 02/20/2023 18:36 Initial 8302- 2 INC O2 Saturation 98 % 2022 18:36 Initial 68502 -5 [facility] Pulse 91.0 /min 02/20/2023 18:36 Initial 8867- 4 INC Temperature 37.2 Antonella 98.9 F 02/21/20 18:36 Initial 8310- 5 [facility] Weight 72.03 kg 158.80 lbs 02/20/2023 18:36 Initial 42976 -7 [facility] Medications Medication Start Date End Date Route Frequency Dose Code Code System Medication Instructions Home Meds Medrol Dosepak 4MG Oral Tablet 12/25/2022 02/20/2023 By Mouth As Directed 1 PACK 616657 RxNorm 1 PACK By Mouth As Directed Methocarbamol 750MG Oral Tablet 12/25/2022 03/12/2023 By Mouth As needed every 8 hr 605046 RxNorm 1-2 TABLET By Mouth As needed every 8 hr [place]-28 30 MCG-0.15 MG; NA Oral Tablet 12/25/2022 03/12/2023 By Mouth Daily 1 TABLET 220068 RxNorm 1 TABLET By Mouth Daily Macrobid 100MG Oral Capsule 02/20/2023 03/12/2023 By mouth Twice a day 1 TABLET 395468 RxNorm 1 TABLET By mouth Twice a day X 7 DAYS Pyridium 100MG Oral Tablet 02/20/2023 03/12/2023 By mouth As needed every 8 hr 1 TABLET 9611752 RxNorm 1 TABLET By mouth As needed every 8 hr for urinary pain ZyrTEC Allergy 10MG Oral Capsule, Liquid Filled 03/12/2023 Unknown By Mouth Daily 1 CAPSULE 0166884 RxNorm 1 CAPSULE By Mouth Daily Fluticasone 0.05MG/1Actuati on Nasal [place] 03/12/2023 Unknown Nasal Daily 1 Sprays 9809682 RxNorm 1 Spr ays Nasal Daily Azithromycin 500MG Oral Tablet 06/04/2024 Unknown By Mouth x1 NOW 2 TABLET 983519 RxNorm 2 TABLET By Mouth x1 NOW [...] Status Code Code System SEASONAL ALLERGY active 074637750 SNO MED-CT FAMILY PLANNING 06/20/2020 active 429492778 SNO MED-CT BITE OF INSECT active 901791603 SNOME D-CT ES OF VAGINA 08/07/2022 active 91595589 S NOMED-CT MENORRHAGIA active 058762463 SNOMED-C T PAINFUL NECK active 90552031 SNOMED- CT ADHD OF CHILDHOOD 07/22/2019 resolved 900610278 S NOMED-CT SEASONAL NASAL ALLERGY 07/22/2019 resolved 449193 001 SNOMED-CT HISTORY OF [place] 07/22/2019 resolved 5015789 08 SNOMED-CT Allergies and Adverse Reactions Allergy Substance Reaction Severity Start Date Concern Status Co de Code System Active seasonal allergies Active No Known Drug Allergies Active 092166497 SNOMED-CT No Known Drug Allergies Active 214190213 SNOMED-CT Plan of Treatment Description Due Date Details Instructions DEPRESSION SCREENING DUE 06/20/2021 Future Order Description Future Order Date Futu re Order Loinc: CULTURE URINE 02/20/2023 LOINC: 630-4 TRICHOMONAS VAGINALIS FEMALE RNA QUAL LOINC: 03826-0 GC/CHLAMYDIA PCR [place] 02/20/2023 LOINC: 448 06-8 CULTURE YEAST, WITH IDENTIFICATION 02/20/2023 LOINC: 92610-1 BACTERIAL VAGINOSIS RAPID TEST 02/20/2023 LOINC: 6410-5 Encounters Encounter Diagnosis Start Date Code Code Sys tem Urinary tract infectious disease 02/20/2023 77132996 SNOMED-CT Personal Care Team Section Performer Name Performer Role Active Date Inactive Da te Progress Notes [facility] 02/20/2023 19:27 Admission Date/Time: 02/20/2023 18:07 Convenient [...] up. This examination was transcribed using the [employer] voice recognition system without human box finisher. In an effort to expedite patient care, this report has not been adjusted for typographical, or medical or syntax by a trained medical coder. Allergy Table Allergen Type Reaction seasonal allergies [...] NEGATIVE 02/20/2023 18:38 02/20/2023 18:43 final LOT#: [id number] 02/20/2023 18:38 02/20/2023 18:43 final EXP DATE: [...] day X 7 DAYS 02/20/2023 JOSUE FULTON [place]-28 30 MCG-0.15 MG; NA Oral Tablet 1 TABLET By Mouth Daily 12/25/2022 Blanco Gallego Methocarbamol 750MG Oral Tablet 1-2 TABLET By Mouth As needed every 8 hr 12/25/2022 Blanco Gallego
--- OUTSIDE RECORDS SUMMARY | 2025-01-31 02:24 | XMS_ITS ---
Author Organization Unknown Address [address] [place], [place] [phone] Phone Care Team Providers Care Leasing Consultant Name Role Phone Ana Joseph Attending Unavailable Results BACTERIAL VAGINOSIS RAPID TE ST - Collect Date/Time: 07/31/2022 17:20 [facility] ID: [id number] [address] [place], [place], [phone] LOINC: 6410-5 Test Value Unit Reference Range Code Code System Flag BACTERIAL VAGINOSIS NEGATIVE NORMAL: NEGATIVE CULTURE YEAST, WITH IDENTIFI CATION - Collect Date/Time: 07/31/2022 17:19 [facility] ID: [id number] [address] [place], [place], [phone] LOINC: 5048-4 Test Value Unit Reference Range Code Code System Flag SOURCE: VAGINAL STATUS: FINAL ISOLATE 1: Margoth albicans A CULTURE: Culture in progress TRICHOMONAS VAGINALIS FEMALE RNA QUAL - Collect Date/Time: 07/31/2022 17:19 [facility] ID: [id number] [address] [place], [place], [phone] LOINC: 69689-1 Test Value Unit Reference Range Code Code System Flag TRICHOMONAS VAGINALISRNA, QL TMA NOT DETECTED NOT DETECTED CHLAMYDIA/GC URINE RNA, TMA APTIMA - Collect Date/Time: 07/31/2022 17:19 [facility] ID: [id number] [address] [place], [place], [phone] LOINC: 5048-4 Test Value Unit Reference Range Code Code System Flag CHLAMYDIA TRACHOMATISRNA, TMA, UROGENITAL NOT DETECTED NOT DETECTED NEISSERIA GONORRHOEAERNA, TMA, UROGENITAL NOT DETECTED NOT DETECTED Social History Type Status Start Date End Date Code Code Syst em Smoking History Never smoker (Never Smoked) 760495706 SNOMED CT Sex Female Sexual Orientation Straight or Heterosexual 94140773 SNOMED CT Gender Identity Female 76568914975014 [address] Medications Medication Start Date End Date Route Frequency Dose Code Code System Medication Instructions Home Meds Anel-28 30MCG-0.15MG-NA Oral Tablet 06/07/2022 09/12/2022 By Mouth Daily 1 TABLET 306427 RxNorm 1 TABLET By Mouth Daily Diflucan [...] 02/20/2023 By Mouth As Directed 1 PACK 017432 RxNorm 1 PACK By Mouth As Directed Methocarbamol 750MG Oral Tablet 12/25/2022 03/12/2023 By Mouth As needed every 8 hr 899609 RxNorm 1-2 TABLET By Mouth As needed every 8 hr [place]-28 30 MCG-0.15 MG; NA Oral Tablet 12/25/2022 03/12/2023 By Mouth Daily 1 TABLET 840938 RxNorm 1 TABLET By Mouth Daily Macrobid 100MG Oral Capsule 02/20/2023 03/12/2023 By mouth Twice a day 1 TABLET 962645 RxNorm 1 TABLET By mouth Twice a day X 7 DAYS Pyridium 100MG Oral Tablet 02/20/2023 03/12/2023 By mouth As needed every 8 hr 1 TABLET 5433071 RxNorm 1 TABLET By mouth As needed every 8 hr for urinary pain ZyrTEC Allergy 10MG Oral Capsule, Liquid Filled 03/12/2023 Unknown By Mouth Daily 1 CAPSULE 1349166 RxNorm 1 CAPSULE By Mouth Daily Fluticasone 0.05MG/1Actuatio n Nasal [place] 03/12/2023 Unknown Nasal Daily 1 Sprays 1701778 RxNorm 1 Spra ys Nasal Daily Azithromycin 500MG Oral Tablet 06/04/2024 Unknown By Mouth x1 NOW 2 TABLET 785739 RxNorm 2 TABLET By Mouth x1 NOW [...] Status Code Code System SEASONAL ALLERGY active 489819736 SNO MED-CT FAMILY PLANNING 06/20/2020 active 352887435 SNO MED-CT BITE OF INSECT active 015695209 SNOME D-CT MARGOTH OF VAGINA 08/07/2022 active 93395053 S NOMED-CT MENORRHAGIA active 755392603 SNOMED-C T PAINFUL NECK active 24825518 SNOMED- CT ADHD OF CHILDHOOD 07/22/2019 resolved 358617981 S NOMED-CT SEASONAL NASAL ALLERGY 07/22/2019 resolved 433832 001 SNOMED-CT HISTORY OF [place] 07/22/2019 resolved 6513031 08 SNOMED-CT Allergies and Adverse Reactions Allergy Substance Reaction Severity Start Date Concern Status Co de Code System Active seasonal allergies Active No Known Drug Allergies Active 636098563 SNOMED-CT No Known Drug Allergies Active 274270730 SNOMED-CT Plan of Treatment Description Due Date Details Instructions DEPRESSION SCREENING DUE 06/20/2021 Encounters Encounter Diagnosis Start Date Code Code Sys tem Noninflammatory disorder of the vagina 07/31/2022 22 341511 SNOMED-CT Personal Care Team Section Performer Name Performer Role Active Date Inactive Da te
--- OUTSIDE RECORDS SUMMARY | 2025-01-31 02:24 | XMS_ITS | Clinical Summary ---
Author Organization [facility] Address [address] [place] [address] Care Team Providers Care Septic Tank Service Technician Name Role Phone Faustino Matta MD Primary Care Provider [phone] Source Comments [facility],non-owned Affiliates and Associated Physician Practices is amultiple site organization consisting of ambulatory clinics and hospital sitesin [place], [place], [place] and [place]. This disclosure is being madepursuant to the Care Everywhere program and may not contain all information available regarding this patient. Last updated 18.[facility] Allergies No known active allergies Medications * [...] Type Department Care Team Description 12/15/2024 Telephone [facility] [address] [place] [address] Akosua Burns Appointment 11/24/2024 Orders Only [facility] - SLIP BRIDGE OPERATOR [address] [place] [address] Jennifer Paul MD 11/19/2024 1:00 PM BIOMETRICS TECHNICIAN - 11/19/2024 11:59 PM BIOMETRICS TECHNICIAN Hospital Encounter [facility] [address] [place] [address] Tiff Arriaza MD Discharge Disposition: Home or Self Care 11/03/2024 Orders Only [facility] [address] [place] [address] Britany Garcia, FIELD PLACEMENT DIRECTOR-MAT GAUGER Abnormal genetic test in ; Abnormal ultrasound 11/02/2024 Orders Only [facility] [address] [place] [address] Shania Mcintosh RN 11/02/2024 Telephone [facility] [address] [place] [address] Britany Garcia, FIELD PLACEMENT DIRECTOR-MAT GAUGER LABS ONLY from Last 3 Months Family History Relation [...] - 19+ 3-dose series) 2023 COVID-19 VACCINE ( - 2023-2 5 season) 2024 03/16/2021, 02/21/2021 [...] CYTOMEGALOVIRUS AB IGG AVIDITY 11/24/2024 2:44 PM BIOMETRICS TECHNICIAN SONOGRAM - COMPLETE Routine 11/19/2024 1 :11 PM BIOMETRICS TECHNICIAN Encounter for ultrasound Rh negative, antepartum Rubella non-immune status, antepartum Primigravida, antepartum 28 weeks gestation of Genetic anomalies of leukocytes Abnormal genetic test in CYTOMEGALOVIRUS ANTIBODY IGG BLOOD 11/10/2024 1:50 PM BIOMETRICS TECHNICIAN from Last 3 Months Results * CYTOMEGALOVIRUS AB IGG AVIDITY (11/24/2024 2:44 PM BIOMETRICS TECHNICIAN) Pathologist [facility] Cytomegalovirus Antibody IgG Avidity [...] analytical performance characteristics have been determined by [employer]. It has not been cleared or approved by FDA. This assay has been validated pursuant to the CLIA regulations and is used for clinical purposes. For additional information, please refer to http://education.netprice.com.Oneflare/faq/NXZ130 (This link is being provided for informational/ educational purposes only.) Test Performed at: [facility] [address] [place] [address] KWAKU SUMMERS MD,PHD,STARR 11/24/2024 2:44 PM BIOMETRICS TECHNICIAN 11/24/2024 2:45 PM BIOMETRICS TECHNICIAN Jennifer Paul MD LAB - SEROLOGY LEIF GONZALEZ [facility] Organization Address City/State/ZIP Co de Phone Number [facility] [phone] [place] [address] * SONOGRAM - COMPLETE (11/19/2024 1:11 PM BIOMETRICS TECHNICIAN) Pathologist [facility] Linked Results 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 PACS Anatomical Region Laterality Modality Other 11/19/2024 1:11 PM BIOMETRICS TECHNICIAN Jonny Cabrera DO [facility] ORDERABLES * (ABNORMAL) CYTOMEGALOVIRUS ANTIBODY IGG BLOOD (11/10/2024 1:50 PM BIOMETRICS TECHNICIAN) Cytomegalovirus Antibody IgG >10.00(H) U/mL [facility] Comment: U/mL Interpretation ----- <0.60 Negative 0.60-0.69 Equivocal > or = 0.70 Positive A positive result indicates that the patient has antibody to CMV. It does not differentiate between an active or past infection. Test Performed at: [email or web address] [address] [place] [address] PINEDA TAM MD 11/10/2024 1:50 PM BIOMETRICS TECHNICIAN 11/10/2024 1:53 PM BIOMETRICS TECHNICIAN Britany Garcia FIELD PLACEMENT DIRECTOR-MAT GAUGER LAB - CHEMI STRY ORDERABLES [facility] [id number] [place] [address] from Last 3 Months Care Teams Septic Tank Service Technician Relationship Specialty Start Date End Date Faustino Matta MD [address] [address] PCP - General Pediatrics 08/05/12
--- OUTSIDE RECORDS SUMMARY | 2025-01-31 02:24 | XMS_ITS ---
Author Organization Unknown Address [address] [place] [phone] Phone Care Team Providers Care Assistant Professor Of Forestry Name Role Phone Blanco Gallego Attending Unavailable [...] em Smoking History Never smoker (Never Smoked) 632596467 SNOMED CT Sex Female Sexual Orientation Straight or Heterosexual 41131164 SNOMED CT Gender Identity Female [id number] [address] Medications Medication Start Date End Date Route Frequency Dose Code Code System Medication Instructions Home Meds Medrol Dosepak 4MG Oral Tablet 12/25/2022 02/20/2023 By Mouth As Directed 1 PACK 829733 RxNorm 1 PACK By Mouth As Directed Methocarbamol 750MG Oral Tablet 12/25/2022 03/12/2023 By Mouth As needed every 8 hr 536181 RxNorm 1-2 TABLET By Mouth As needed every 8 hr Perry-28 30 MCG-0.15 MG; NA Oral Tablet 12/25/2022 03/12/2023 By Mouth Daily 1 TABLET 128020 RxNorm 1 TABLET By Mouth Daily Macrobid 100MG Oral Capsule 02/20/2023 03/12/2023 By mouth Twice a day 1 TABLET 972897 RxNorm 1 TABLET By mouth Twice a day X 7 DAYS Pyridium 100MG Oral Tablet 02/20/2023 03/12/2023 By mouth As needed every 8 hr 1 TABLET 0287200 RxNorm 1 TABLET By mouth As needed every 8 hr for urinary pain ZyrTEC Allergy 10MG Oral Capsule, Liquid Filled 03/12/2023 Unknown By Mouth Daily 1 CAPSULE 1776704 RxNorm 1 CAPSULE By Mouth Daily Fluticasone 0.05MG/1Actuati on Nasal [place] 03/12/2023 Unknown Nasal Daily 1 Sprays 2323600 RxNorm 1 Spr ays Nasal Daily Azithromycin 500MG Oral Tablet 06/04/2024 Unknown By Mouth x1 NOW 2 TABLET 168333 RxNorm 2 TABLET By Mouth x1 NOW [...] Status Code Code System SEASONAL ALLERGY active 112496692 SNO MED-CT FAMILY PLANNING 06/20/2020 active 616580450 SNO MED-CT BITE OF INSECT active 152461896 SNOME D-CT ES OF VAGINA 08/07/2022 active 90090113 S NOMED-CT MENORRHAGIA active 910316369 SNOMED-C T PAINFUL NECK active 99242130 SNOMED- CT ADHD OF CHILDHOOD 07/22/2019 resolved 687832528 S NOMED-CT SEASONAL NASAL ALLERGY 07/22/2019 resolved 091846 001 SNOMED-CT HISTORY OF CHICKENPOX 07/22/2019 resolved 0009183 08 SNOMED-CT Allergies and Adverse Reactions Allergy Substance Reaction Severity Start Date Concern Status Co de Code System Active seasonal allergies Active No Known Drug Allergies Active 837401595 SNOMED-CT No Known Drug Allergies Active 667163784 SNOMED-CT Plan of Treatment Description Due Date Details Instructions DEPRESSION SCREENING DUE 06/20/2021 Personal Care Team Section Performer Name Performer Role Active Date Inactive David mccallum
--- OUTSIDE RECORDS SUMMARY | 2025-01-31 02:24 | XMS_ITS ---
Author Organization Unknown Address [address], [place] [phone] Phone Care Team Providers Care Instructor Military Science Name Role Phone JOSUE FULTON EDMOND Attending Unavailable Results CULTURE YEAST, WITH IDENTIFI CATION - Collect Date/Time: 02/20/2023 18:42 [facility] ID: [id number] [address], [place], [address] LOINC: 5048-4 Test Value Unit Reference Range Code Code System Flag SOURCE: VAGINAL STATUS: FINAL ISOLATE 1: Margoth albicans A TRICHOMONAS VAGINALIS FEMALE RNA QUAL - Collect Date/Time: 02/20/2023 18:40 [facility] ID: [id number] [address], [place], [address] LOINC: 53845-9 Test Value Unit Reference Range Code Code System Flag TRICHOMONAS VAGINALISRNA, QL TMA NOT DETECTED NOT DETECTED GC/CHLAMYDIA PCR [facility] ct Date/Time: 02/20/2023 18:40 [facility] ID: [id number] [address], [place], [address] LOINC: 5048-4 Test Value Unit Reference Range Code Code System Flag GONORRHEA PCR NOT DETECTED NORMAL: NOT DETECTED CHLAMYDIA PCR NOT DETECTED NORMAL: NOT DETECTED BACTERIAL VAGINOSIS RAPID TE ST - Collect Date/Time: 02/20/2023 18:40 [facility] ID: [id number] [address], [place], [address] LOINC: 6410-5 Test Value Unit Reference Range Code Code System Flag BACTERIAL VAGINOSIS NEGATIVE NORMAL: NEGATIVE Social History Type Status Start Date End Date Code Code Syst em Smoking History Never smoker (Never Smoked) 181250710 SNOMED CT Sex Female Sexual Orientation Straight or Heterosexual 16543207 SNOMED CT Gender Identity Female 05341309229013 [address] Medications Medication Start Date End Date Route Frequency Dose Code Code System Medication Instructions Home Meds Methocarbamol 750MG Oral Tablet 12/25/2022 03/12/2023 By Mouth As needed every 8 hr 460419 RxNorm 1-2 TABLET By Mouth As needed every 8 hr [place]-28 30 MCG-0.15 MG; NA Oral Tablet 12/25/2022 03/12/2023 By Mouth Daily 1 TABLET 661934 RxNorm 1 TABLET By Mouth Daily Macrobid 100MG Oral Capsule 02/20/2023 03/12/2023 By mouth Twice a day 1 TABLET 740970 RxNorm 1 TABLET By mouth Twice a day X 7 DAYS Pyridium 100MG Oral Tablet 02/20/2023 03/12/2023 By mouth As needed every 8 hr 1 TABLET 8520121 RxNorm 1 TABLET By mouth As needed every 8 hr for urinary pain ZyrTEC Allergy 10MG Oral Capsule, Liquid Filled 03/12/2023 Unknown By Mouth Daily 1 CAPSULE 4064646 RxNorm 1 CAPSULE By Mouth Daily Fluticasone 0.05MG/1Actuati on Nasal [place] 03/12/2023 Unknown Nasal Daily 1 Sprays 2705863 RxNorm 1 Spr ays Nasal Daily Azithromycin 500MG Oral Tablet 06/04/2024 Unknown By Mouth x1 NOW 2 TABLET 754156 RxNorm 2 TABLET By Mouth x1 NOW [...] Status Code Code System SEASONAL ALLERGY active 113424272 SNO MED-CT FAMILY PLANNING 06/20/2020 active 030322528 SNO MED-CT BITE OF INSECT active 311655506 SNOME D-CT MARGOTH OF VAGINA 08/07/2022 active 90454258 S NOMED-CT MENORRHAGIA active 971189285 SNOMED-C T PAINFUL NECK active 26363661 SNOMED- CT ADHD OF CHILDHOOD 07/22/2019 resolved 904055022 S NOMED-CT SEASONAL NASAL ALLERGY 07/22/2019 resolved 893479 001 SNOMED-CT HISTORY OF CHICKENPOX 07/22/2019 resolved 9203118 08 SNOMED-CT Allergies and Adverse Reactions Allergy Substance Reaction Severity Start Date Concern Status Co de Code System Active seasonal allergies Active No Known Drug Allergies Active 413300974 SNOMED-CT No Known Drug Allergies Active 857499105 SNOMED-CT Plan of Treatment Description Due Date Details Instructions DEPRESSION SCREENING DUE 06/20/2021 Encounters Encounter Diagnosis Start Date Code Code Sys tem Dysuria 02/20/2023 63959015 SNOMED-CT Personal Care Team Section Performer Name Performer Role Active Date Inactive Da xena
--- OUTSIDE RECORDS SUMMARY | 2025-01-31 02:24 | XMS_ITS ---
Author Organization Unknown Address [address] [place] [phone] Phone Care Team Providers Care Assistant Sales Center Manager Name Role Phone VIRAL Brody Attending Unavailable [...] MICR O - Collect Date/Time: 06/03/2024 15:21 [facility] ID: [id number] [address] [place] [address], [phone] LOINC: Test Value Unit Reference Range Code [...] em Smoking History Never smoker (Never Smoked) 685558971 SNOMED CT Sex Female Sexual Orientation Straight or Heterosexual 29335127 SNOMED CT Gender Identity Female [id number] [address] Vital Signs Vital Sign Value Unit Summers Value Summers Unit Date/Time Recent/Initial? Code Code System Body Mass Index 25.85 kg/m2 06/03/2024 14:31 Initial 63209 -5 [facility] Body Mass Index Percentile 82 % 06/03/2024 14:31 Initial 42782 -9 LOINC Systolic Blood Pressure 118 mm[Hg] 06/03/2024 15:46 Most Recent 8480- 6 LOINC Diastolic Blood Pressure 82 mm[Hg] 06/03/2024 15:46 Most Recent 8462- 4 [facility] Systolic Blood Pressure 136 mm[Hg] 06/03/2024 14:31 Initial 8480- 6 LOINC Diastolic Blood Pressure 95 mm[Hg] 06/03/2024 14:31 Initial 8462- 4 LOINC Body Surface Area 1.92 m2 06/03/2024 14:31 Initial 3140- 1 LOINC Height 172.720 0 cm 68.00 in 06/03/2024 14:31 Initial 8302- 2 [facility] O2 Saturation 100 % 2023 14:31 Initial 44518 -5 [facility] Pulse 93.0 /min 06/03/2024 14:31 Initial 8867- 4 [facility] Temperature 36.7 Antonella 98.0 F 06/03/20 14:31 Initial 8310- 5 [facility] Weight 77.11 kg 170.00 lbs 06/03/2024 14:31 Initial 32779 -7 [facility] Medications Medication Start Date End Date Route Frequency Dose Code Code System Medication Instructions Home Meds ZyrTEC Allergy 10MG Oral Capsule, Liquid Filled 03/12/2023 Unknown By Mouth Daily 1 CAPSULE 0002314 RxNorm 1 CAPSULE By Mouth Daily Fluticasone 0.05MG/1Actuatio n Nasal [place] 03/12/2023 Unknown Nasal Daily 1 Sprays 2865297 RxNorm 1 Spra ys Nasal Daily Azithromycin 500MG Oral Tablet 06/04/2024 Unknown By Mouth x1 NOW 2 TABLET 658812 RxNorm 2 TABLET By Mouth x1 NOW [...] sex practices. 3. -Keep follow up with [facility] for next week. -Given handouts for [...] up. This examination was transcribed using the [employer] voice recognition system without a human contact assembler. To expedite patient care, this report has not been adjusted for typographical, or medical, or syntax by a trained medical secretary. Hospital Discharge Instructions Should you have any questions prior to discharge, please contact a member of your healthcare team. If you have left the hospital and have any questions, please contact your primary care physician. Reason For Referral No Data Found Problems Problem Start Date Resolved Date Status Code Code System SEASONAL ALLERGY active 957971858 SNO MED-CT FAMILY PLANNING 06/20/2020 active 594837634 SNO MED-CT BITE OF INSECT active 487613299 SNOME D-CT ES OF VAGINA 08/07/2022 active 25450697 S NOMED-CT MENORRHAGIA active 297412649 SNOMED-C T PAINFUL NECK active 75407624 SNOMED- CT ADHD OF CHILDHOOD 07/22/2019 resolved 865335020 S NOMED-CT SEASONAL NASAL ALLERGY 07/22/2019 resolved 506447 001 SNOMED-CT HISTORY OF CHICKENPOX 07/22/2019 resolved 9552474 08 SNOMED-CT Allergies and Adverse Reactions Allergy Substance Reaction Severity Start Date Concern Status Co de Code System Active seasonal allergies Active No Known Drug Allergies Active 532385374 SNOMED-CT No Known Drug Allergies Active 754978442 SNOMED-CT Plan of Treatment Description Due Date Details Instructions DEPRESSION SCREENING DUE 06/20/2021 Future Order Description Future Order Date Futu re Order Loinc: TRICHOMONAS VAGINALIS FEMALE RNA QUAL LOINC: 14754-0 GC PCR [facility] 06/03/2024 LOINC: 64093-3 CHLAMYDIA PCR [facility] 06/03/2024 LOINC: 59357- 5 BACTERIAL VAGINOSIS RAPID TEST 06/03/2024 LOINC: 6410-5 CULTURE YEAST, WITH IDENTIFICATION 06/03/2024 LOINC: 38849-6 Encounters Encounter Diagnosis Start Date Code Code Sys tem Acute vaginitis 06/03/2024 12100896 SNOMED-CT Personal Care Team Section Performer Name Performer Role Active Date Inactive Da te Progress Notes [facility] 06/03/2024 15:50 Date of Service: 06/03/2024 [...] April. She has an appointment scheduled with [facility] for an OBGYN next week. She [...] sex practices. 3. -Keep follow up with [facility] for next week. -Given handouts for [...] up. This examination was transcribed using the [employer] voice recognition system without a human contact assembler. To expedite patient care, this report has not been adjusted for typographical, or medical, or syntax by a trained medical secretary. Meds Given This Visit: Meds ordered and administered this visit: No Current Medications Available Discharge Med List: Discharge Medications Medication Special Instructions Start Date Prescribing MD Fluticasone 0.05MG/1Actuation Nasal [place] 1 Sprays Nasal Daily 03/12/2023 Blanco Gallego ZyrTEC Allergy 10MG Oral Capsule, Liquid Filled 1 CAPSULE By Mouth Daily 03/12/2023 Blanco Gallego
--- OUTSIDE RECORDS SUMMARY | 2025-01-31 02:24 | XMS_ITS ---
Author Organization Unknown Address [address] [place] [phone] Phone Care Team Providers Care Staff Registered Nurse Name Role Phone Blanco Gallego Attending Unavailable [...] ANTIGEN - Collec t Date/Time: 03/12/2023 14:51 [facility] ID: [id number] [address], [place], [phone] LOINC: 6556-5 Test Value Unit Reference Range Code Code System Flag COVID RAPID ANTI NEGATIVE NORMAL: NEGATIVE LOT#: [id number] Exp Date: 12/07/2023 QC: ACCEPTABLE STREP A SCREEN - Collect Sha e/Time: 03/12/2023 14:50 [facility] ID: [id number] [address], [place], [address] LOINC: 6556-5 Test Value Unit Reference Range Code Code System Flag STREP SCREEN NEGATIVE NORMAL: NEGATIVE 6556-5 LOINC Lot#: [id number] Exp Date: 04/10/2024 QC STREP ACCEPTABLE Social History Type Status Start Date End Date Code Code Syst em Smoking History Never smoker (Never Smoked) 712172038 SNOMED CT Sex Female Sexual Orientation Straight or Heterosexual 89847246 SNOMED CT Gender Identity Female 57649835893048 [address] Vital Signs Vital Sign Value Unit [place] Value [place] Unit Date/Time Recent/Initial? Code Code System Body Mass Index 23.57 kg/m2 03/12/2023 14:40 Initial 10786 -5 LOINC Body Mass Index Percentile 71 % 03/12/2023 14:40 Initial 28336 -9 LOINC Systolic Blood Pressure 100 mm[Hg] 03/12/2023 14:40 Initial 8480- 6 LOINC Diastolic Blood Pressure 68 mm[Hg] 03/12/2023 14:40 Initial 8462- 4 LOINC Body Surface Area 1.84 m2 03/12/2023 14:40 Initial 3140- 1 LOINC Height 172.720 0 cm 68.00 in 03/12/2023 14:40 Initial 8302- 2 INC O2 Saturation 95 % 2022 14:40 Initial 55954 -5 LOINC Pulse 56.0 /min 03/12/2023 14:40 Initial 8867- 4 LOINC Respiration 16 /min 03/12/20 14:40 Initial 9279- 1 LOINC Temperature 37.5 Antonella 99.5 F 03/12/20 14:40 Initial 8310- 5 INC Weight 70.31 kg 155.00 lbs 03/12/2023 14:40 Initial 01144 -7 [facility] Medications Medication Start Date End Date Route Frequency Dose Code Code System Medication Instructions Home Meds Methocarbamol 750MG Oral Tablet 12/25/2022 03/12/2023 By Mouth As needed every 8 hr 989636 RxNorm 1-2 TABLET By Mouth As needed every 8 hr [place]-28 30 MCG-0.15 MG; NA Oral Tablet 12/25/2022 03/12/2023 By Mouth Daily 1 TABLET 922597 RxNorm 1 TABLET By Mouth Daily Macrobid 100MG Oral Capsule 02/20/2023 03/12/2023 By mouth Twice a day 1 TABLET 688542 RxNorm 1 TABLET By mouth Twice a day X 7 DAYS Pyridium 100MG Oral Tablet 02/20/2023 03/12/2023 By mouth As needed every 8 hr 1 TABLET 6209940 RxNorm 1 TABLET By mouth As needed every 8 hr for urinary pain ZyrTEC Allergy 10MG Oral Capsule, Liquid Filled 03/12/2023 Unknown By Mouth Daily 1 CAPSULE 3185644 RxNorm 1 CAPSULE By Mouth Daily Fluticasone 0.05MG/1Actuati on Nasal [place] 03/12/2023 Unknown Nasal Daily 1 Sprays 2479108 RxNorm 1 Spr ays Nasal Daily Azithromycin 500MG Oral Tablet 06/04/2024 Unknown By Mouth x1 NOW 2 TABLET 554999 RxNorm 2 TABLET By Mouth x1 NOW [...] Status Code Code System SEASONAL ALLERGY active 227987626 SNO MED-CT FAMILY PLANNING 06/20/2020 active 655267408 SNO MED-CT BITE OF INSECT active 277836424 SNOME D-CT ES OF VAGINA 08/07/2022 active 25593237 S NOMED-CT MENORRHAGIA active 859809573 SNOMED-C T PAINFUL NECK active 73312397 SNOMED- CT ADHD OF CHILDHOOD 07/22/2019 resolved 410193186 S NOMED-CT SEASONAL NASAL ALLERGY 07/22/2019 resolved 965865 001 SNOMED-CT HISTORY OF CHICKENPOX 07/22/2019 resolved 4628282 08 SNOMED-CT Allergies and Adverse Reactions Allergy Substance Reaction Severity Start Date Concern Status Co de Code System Active seasonal allergies Active No Known Drug Allergies Active 410688766 SNOMED-CT No Known Drug Allergies Active 518876025 SNOMED-CT Plan of Treatment Description Due Date Details Instructions DEPRESSION SCREENING DUE 06/20/2021 Encounters Encounter Diagnosis Start Date Code Code Sys tem Seasonal allergic rhinitis 03/12/2023 350956983 S NOMED-CT Personal Care Team Section Performer Name Performer Role Active Date Inactive Da te Progress Notes [facility] 03/12/2023 15:06 Admission Date/Time: 03/12/2023 [...] is an 17 yo female presents to [facility] today for sore throat and cough. [...] records Referring and communicating with other health pet care associate x Obtaining and/or reviewing separately obtained history Independent interpretation of results and communicating results to the patient/family/caregiver x Performing a medically appropriate examination/evaluation Care coordination (not reported separately) x Discharge instructions given to patient. Ordered & Completed Meds Table: No Current Medications Available Discharge Med List: Discharge Medications: No Discharge Medications Available [facility] 03/12/2023 15:20 Current Date/Time: 03/12/2023 15:03 Patient Name: NELA MANZANARES was seen at [facility] [phone] on Date of Service: 03/12/2023 . They may return to school on 03/13/2023 with No restrictions . .
--- OUTSIDE RECORDS SUMMARY | 2025-01-31 02:25 | XMS_ITS ---
Author Organization Unknown Address [address] [place] [phone] Phone Care Team Providers Care Assistant Casino Shift Manager Name Role Phone Blanco Gallego Attending [...] em Smoking History Never smoker (Never Smoked) 856611095 SNOMED CT Sex Female Sexual Orientation Straight or Heterosexual 57455633 SNOMED CT Gender Identity Female 51308998466543 [address] Medications Medication Start Date End Date Route Frequency Dose Code Code System Medication Instructions Home Meds ZyrTEC Allergy 10MG Oral Capsule, Liquid Filled 03/12/2023 Unknown By Mouth Daily 1 CAPSULE 5626580 RxNorm 1 CAPSULE By Mouth Daily Fluticasone 0.05MG/1Actuatio n Nasal [place] 03/12/2023 Unknown Nasal Daily 1 Sprays 1311566 RxNorm 1 Spra ys Nasal Daily Azithromycin 500MG Oral Tablet 06/04/2024 Unknown By Mouth x1 NOW 2 TABLET 864557 RxNorm 2 TABLET By Mouth x1 NOW [...] Status Code Code System SEASONAL ALLERGY active 398494984 SNO MED-CT FAMILY PLANNING 06/20/2020 active 912101396 SNO MED-CT BITE OF INSECT active 900434207 SNOME D-CT ES OF VAGINA 08/07/2022 active 21018023 S NOMED-CT MENORRHAGIA active 274542672 SNOMED-C T PAINFUL NECK active 36887054 SNOMED- CT ADHD OF CHILDHOOD 07/22/2019 resolved 626318609 S NOMED-CT SEASONAL NASAL ALLERGY 07/22/2019 resolved 074542 001 SNOMED-CT HISTORY OF CHICKENPOX 07/22/2019 resolved 4051022 08 SNOMED-CT Allergies and Adverse Reactions Allergy Substance Reaction Severity Start Date Concern Status Co de Code System Active seasonal allergies Active No Known Drug Allergies Active 439378519 SNOMED-CT No Known Drug Allergies Active 708336913 SNOMED-CT Plan of Treatment Description Due Date Details Instructions DEPRESSION SCREENING DUE 06/20/2021 Personal Care Team Section Performer Name Performer Role Active Date Inactive Da xena
--- OUTSIDE RECORDS SUMMARY | 2025-01-31 02:25 | XMS_ITS ---
Author Organization Unknown Address [address] [place] [address] [phone] Phone Care Team Providers Care Residential Advisor Name Role Phone ATIYA Lezama MD Attending [...] em Smoking History Never smoker (Never Smoked) 236413846 SNOMED CT Sex Female Sexual Orientation Straight or Heterosexual 89923451 SNOMED CT Gender Identity Female [id number] Medications Medication Start Date End Date Route Frequency Dose Code Code System Medication Instructions Home Meds Radha 28 3MG-0.02MG Oral Tablet 09/12/2022 12/25/2022 By Mouth Once a day 1 TABLET RxNorm 1 TABLET By Mouth Once a day Medrol Dosepak 4MG Oral Tablet 12/25/2022 02/20/2023 By Mouth As Directed 1 PACK [id number] RxNorm 1 PACK By Mouth As Directed Methocarbamol 750MG Oral Tablet 12/25/2022 03/12/2023 By Mouth As needed every 8 hr 033038 RxNorm 1-2 TABLET By Mouth As needed every 8 hr Era-28 30 MCG-0.15 MG; NA Oral Tablet 12/25/2022 03/12/2023 By Mouth Daily 1 TABLET 860895 RxNorm 1 TABLET By Mouth Daily Macrobid 100MG Oral Capsule 02/20/2023 03/12/2023 By mouth Twice a day 1 TABLET 231815 RxNorm 1 TABLET By mouth Twice a day X 7 DAYS Pyridium 100MG Oral Tablet 02/20/2023 03/12/2023 By mouth As needed every 8 hr 1 TABLET 0019443 RxNorm 1 TABLET By mouth As needed every 8 hr for urinary pain ZyrTEC Allergy 10MG Oral Capsule, Liquid Filled 03/12/2023 Unknown By Mouth Daily 1 CAPSULE 7140022 RxNorm 1 CAPSULE By Mouth Daily Fluticasone 0.05MG/1Actuati on Nasal [place] 03/12/2023 Unknown Nasal Daily 1 Sprays 4644519 RxNorm 1 Spr ays Nasal Daily Azithromycin 500MG Oral Tablet 06/04/2024 Unknown By Mouth x1 NOW 2 TABLET 125698 RxNorm 2 TABLET By Mouth x1 NOW [...] Status Code Code System SEASONAL ALLERGY active 305528731 SNO MED-CT FAMILY PLANNING 06/20/2020 active 707743603 SNO MED-CT BITE OF INSECT active 033013735 [facility]OME D-CT ES OF VAGINA 08/07/2022 active 58337168 S NOMED-CT MENORRHAGIA active 966336192 SNOMED-C T PAINFUL NECK active 25307768 SNOMED- CT ADHD OF CHILDHOOD 07/22/2019 resolved 477105784 S NOMED-CT SEASONAL NASAL ALLERGY 07/22/2019 resolved 402309 001 SNOMED-CT HISTORY OF CHICKENPOX 07/22/2019 resolved 5518006 08 SNOMED-CT Allergies and Adverse Reactions Allergy Substance Reaction Severity Start Date Concern Status Co de Code System Active seasonal allergies Active No Known Drug Allergies Active 217884726 SNOMED-CT No Known Drug Allergies Active 785257102 SNOMED-CT Plan of Treatment Description Due Date Details Instructions DEPRESSION SCREENING DUE 06/20/2021 Personal Care Team Section Performer Name Performer Role Active Date Inactive David mccallum
--- OUTSIDE RECORDS SUMMARY | 2025-01-31 02:25 | XMS_ITS ---
Author Organization Unknown Address [address] [place] [address] [phone] Phone Care Team Providers Care Sourcing Manager Name Role Phone TABATHA RODGERS Attending [...] em Smoking History Never smoker (Never Smoked) 907682518 SNOMED CT Sex Female Sexual Orientation Straight or Heterosexual 31517669 SNOMED CT Gender Identity Female [id number] Medications Medication Start Date End Date Route Frequency Dose Code Code System Medication Instructions Home Meds predniSONE 50MG Oral Tablet 06/07/2022 07/31/2022 By Mouth Daily 1 TABLET 018859 RxNorm 1 TABLET By Mouth Daily [place]-28 30MCG-0.15MG-NA Oral Tablet 06/07/2022 09/12/2022 By Mouth Daily 1 TABLET 340687 RxNorm 1 TABLET By Mouth Daily Diflucan 150MG Oral Tablet 08/07/2022 09/12/2022 By Mouth x1 NOW 1 TABLET 896913 RxNorm 1 TABLET By Mouth x1 NOW FOR MARCH REPEAT IN 72 HOURS Radha 28 3MG-0.02MG Oral Tablet 09/12/2022 12/25/2022 By Mouth Once a day 1 TABLET RxNorm 1 TABLET By Mouth Once a day Medrol Dosepak 4MG Oral Tablet 12/25/2022 02/20/2023 By Mouth As Directed 1 PACK 929171 RxNorm 1 PACK By Mouth As Directed Methocarbamol 750MG Oral Tablet 12/25/2022 03/12/2023 By Mouth As needed every 8 hr 659291 RxNorm 1-2 TABLET By Mouth As needed every 8 hr [place]-28 30 MCG-0.15 MG; NA Oral Tablet 12/25/2022 03/12/2023 By Mouth Daily 1 TABLET 401423 RxNorm 1 TABLET By Mouth Daily Macrobid 100MG Oral Capsule 02/20/2023 03/12/2023 By mouth Twice a day 1 TABLET 130678 RxNorm 1 TABLET By mouth Twice a day X 7 DAYS Pyridium 100MG Oral Tablet 02/20/2023 03/12/2023 By mouth As needed every 8 hr 1 TABLET 0085364 RxNorm 1 TABLET By mouth As needed every 8 hr for urinary pain ZyrTEC Allergy 10MG Oral Capsule, Liquid Filled 03/12/2023 Unknown By Mouth Daily 1 CAPSULE 7451627 RxNorm 1 CAPSULE By Mouth Daily Fluticasone 0.05MG/1Actuati on Nasal [place] 03/12/2023 Unknown Nasal Daily 1 Sprays 7820575 RxNorm 1 Spr ays Nasal Daily Azithromycin 500MG Oral Tablet 06/04/2024 Unknown By Mouth x1 NOW 2 TABLET 516027 RxNorm 2 TABLET By Mouth x1 NOW [...] Status Code Code System SEASONAL ALLERGY active 461179196 SNO MED-CT FAMILY PLANNING 06/20/2020 active 168457113 SNO MED-CT BITE OF INSECT active 601494937 SNOME D-CT ES OF VAGINA 08/07/2022 active 26746834 S NOMED-CT MENORRHAGIA active 588287169 SNOMED-C T PAINFUL NECK active 12158443 SNOMED- CT ADHD OF CHILDHOOD 07/22/2019 resolved 615435538 S NOMED-CT SEASONAL NASAL ALLERGY 07/22/2019 resolved 285352 001 SNOMED-CT HISTORY OF CHICKENPOX 07/22/2019 resolved 4233345 08 SNOMED-CT Allergies and Adverse Reactions Allergy Substance Reaction Severity Start Date Concern Status Co de Code System Active seasonal allergies Active No Known Drug Allergies Active 024685512 SNOMED-CT No Known Drug Allergies Active 808936481 SNOMED-CT Plan of Treatment Description Due Date Details Instructions DEPRESSION SCREENING DUE 06/20/2021 Personal Care Team Section Performer Name Performer Role Active Date Inactive David mccallum
--- OUTSIDE RECORDS SUMMARY | 2025-01-31 02:26 | XMS_ITS ---
Author Organization Unknown Address [address] [place] [address] [phone] Phone Care Team Providers Care Zipper Joiner Name Role Phone ATIYA Lezmaa MD Attending Unavailable Immunization Immunization Date Status [...] em Smoking History Never smoker (Never Smoked) 941717673 SNOMED CT Sex Female Sexual Orientation Straight or Heterosexual 75299703 SNOMED CT Gender Identity Female [id number] Medications Medication Start Date End Date Route Frequency Dose Code Code System Medication Instructions Home Meds ZyrTEC Allergy 10MG Oral Capsule, Liquid Filled 03/12/2023 Unknown By Mouth Daily 1 CAPSULE 7338712 RxNorm 1 CAPSULE By Mouth Daily Fluticasone 0.05MG/1Actuatio n Nasal [place] 03/12/2023 Unknown Nasal Daily 1 Sprays 7123463 RxNorm 1 Spra ys Nasal Daily Azithromycin 500MG Oral Tablet 06/04/2024 Unknown By Mouth x1 NOW 2 TABLET 429555 RxNorm 2 TABLET By Mouth x1 NOW [...] Status Code Code System SEASONAL ALLERGY active 859176996 SNO MED-CT FAMILY PLANNING 06/20/2020 active 641233083 SNO MED-CT BITE OF INSECT active 971766942 SNOME D-CT ES OF VAGINA 08/07/2022 active 65318969 S NOMED-CT MENORRHAGIA active 026179370 SNOMED-C T PAINFUL NECK active 64853808 SNOMED- CT ADHD OF CHILDHOOD 07/22/2019 resolved 032345899 S NOMED-CT SEASONAL NASAL ALLERGY 07/22/2019 resolved 014839 001 SNOMED-CT HISTORY OF CHICKENPOX 07/22/2019 resolved 9488338 08 SNOMED-CT Allergies and Adverse Reactions Allergy Substance Reaction Severity Start Date Concern Status Co de Code System Active seasonal allergies Active No Known Drug Allergies Active 055797587 SNOMED-CT No Known Drug Allergies Active 355165652 SNOMED-CT Plan of Treatment Description Due Date Details Instructions DEPRESSION SCREENING DUE 06/20/2021 Personal Care Team Section Performer Name Performer Role Active Date Inactive Da xena
--- OUTSIDE RECORDS SUMMARY | 2025-01-31 02:26 | XMS_ITS ---
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 Code Code System Body Mass Index 23.87 kg/m2 12/25/2022 13:33 Initial 62879 -5 [facility] Body Mass Index Percentile 74 % 12/25/2022 13:33 Initial 71576 -9 [facility] Systolic Blood Pressure 106 mm[Hg] 12/25/2022 13:33 Initial 8480- 6 [facility] Diastolic Blood Pressure 72 mm[Hg] 12/25/2022 13:33 Initial 8462- 4 [facility] Body Surface Area 1.85 m2 12/25/2022 13:33 Initial 3140- 1 [facility] Height 172.720 0 cm 68.00 in 12/25/2022 13:33 Initial 8302- 2 [facility] O2 Saturation 100 % 2022 13:33 Initial 82060 -5 [facility] Pulse 82.0 /min 12/25/2022 13:33 Initial 8867- 4 [facility] Respiration 16 /min 12/25/19 13:33 Initial 9279- 1 [facility] Temperature 37.0 Antonella 98.6 F 12/25/19 13:33 Initial 8310- 5 [facility] Weight 71.21 kg 157.00 lbs 12/25/2022 13:33 Initial 15267 -7 [facility] Medications Medication Start Date End Date Route Frequency Dose Code Code System Medication Instructions Home Meds Radha 28 3MG-0.02MG Oral Tablet 09/12/2022 12/25/2022 By Mouth Once a day 1 TABLET RxNorm 1 TABLET By Mouth Once a day Medrol Dosepak 4MG Oral Tablet 12/25/2022 02/20/2023 By Mouth As Directed 1 PACK 801764 RxNorm 1 PACK By Mouth As Directed Methocarbamol 750MG Oral Tablet 12/25/2022 03/12/2023 By Mouth As needed every 8 hr 646198 RxNorm 1-2 TABLET By Mouth As needed every 8 hr [place]-28 30 MCG-0.15 MG; NA Oral Tablet 12/25/2022 03/12/2023 By Mouth Daily 1 TABLET 823615 RxNorm 1 TABLET By Mouth Daily Macrobid 100MG Oral Capsule 02/20/2023 03/12/2023 By mouth Twice a day 1 TABLET 000253 RxNorm 1 TABLET By mouth Twice a day X 7 DAYS Pyridium 100MG Oral Tablet 02/20/2023 03/12/2023 By mouth As needed every 8 hr 1 TABLET 6153623 RxNorm 1 TABLET By mouth As needed every 8 hr for urinary pain ZyrTEC Allergy 10MG Oral Capsule, Liquid Filled 03/12/2023 Unknown By Mouth Daily 1 CAPSULE 5360785 RxNorm 1 CAPSULE By Mouth Daily Fluticasone 0.05MG/1Actuati on Nasal [place] 03/12/2023 Unknown Nasal Daily 1 Sprays 3320483 RxNorm 1 Spr ays Nasal Daily Azithromycin 500MG Oral Tablet 06/04/2024 Unknown By Mouth x1 NOW 2 TABLET 648720 RxNorm 2 TABLET By Mouth x1 NOW Assessment You had the following problems:SEASONAL ALLERGYFAMILY PLANNINGBITE OF INSECTCANDIDA OF VAGINAMENORRHAGIAPAINFUL NECK Assessment/Plan: 1. Left upper back pain - Start steroids and muscle relaxer. Patient denies need for school note. 2. Contraceptive management - Patient requesting to restart [facility], will restart at this time Return to clinic [facility] Discharge Instructions Should you have any questions prior to discharge, please contact a member of your healthcare team. If you have left the hospital and have any questions, please contact your primary care physician. Reason For Referral No Data Found Problems Problem Start Date Resolved Date Status Code Code System SEASONAL ALLERGY active 635694520 SNO MED-CT FAMILY PLANNING 06/20/2020 active 092963394 SNO MED-CT BITE OF INSECT active 936346297 SNOME D-CT ES OF VAGINA 08/07/2022 active 88808670 S NOMED-CT MENORRHAGIA active 056631527 SNOMED-C T PAINFUL NECK active 74244058 SNOMED- CT ADHD OF CHILDHOOD 07/22/2019 resolved 406704715 S NOMED-CT SEASONAL NASAL ALLERGY 07/22/2019 resolved 307610 001 SNOMED-CT HISTORY OF CHICKENPOX 07/22/2019 resolved 5801154 08 SNOMED-CT Allergies and Adverse Reactions Allergy Substance Reaction Severity Start Date Concern Status Co de Code System Active seasonal allergies Active No Known Drug Allergies Active 449669488 SNOMED-CT No Known Drug Allergies Active 059904868 SNOMED-CT Plan of Treatment Description Due Date Details Instructions DEPRESSION SCREENING DUE 06/20/2021 Encounters Encounter Diagnosis Start Date Code Code Sys tem Pain in thoracic spine 12/25/2022 458223561 SNOME D-CT Personal Care Team Section Performer Name Performer Role Active Date Inactive Da te Progress Notes [facility] 12/25/2022 13:54 Admission Date/Time: 12/25/2022 13:07 [facility] Visit Note Chief Complaint: [facility] F/U UPPER BACK PAIN/BY NECK SWOLLEN [...] is an 17 yo female presents to [facility] today for [facility] follow up neck and back pain. Pt states she went to [facility] on 12-18-22 with neck and upper back pain. States it just started hurting her while at work, denies injury to the areas. States no xrays were done at ER and was given Rx for steroids that she did not warp picker. States she has been taking warm [...] Contraceptive management - Patient requesting to restart [facility], will restart at this time Return to [...] Referring and communicating with other health career professional x Obtaining and/or reviewing separately obtained history Independent interpretation of results and communicating results to the patient/family/caregiver x Performing a medically appropriate examination/evaluation Care coordination (not reported separately) Ordered & Completed Meds Table: No Current Medications Available Discharge Med List: Discharge Medications: No Discharge Medications Available
--- OUTSIDE RECORDS SUMMARY | 2025-01-31 02:26 | XMS_ITS | Data Portability ---
Author Organization [facility] [place] Address [address] [place] [address] [place] [address] Assessment No assessment recorded. Plan of Treatment Reminders Order Date Submit Date Provider Last Modified By Organization Details Last Modified Time Details Appointments None recorded. Lab None recorded. Referral None recorded. Procedures None recorded. Surgeries None recorded. Imaging non-stress test [address] [facility] [address], [place], [address], 02:43:02 US, obstetric, biophysical profile + non-stress test [email or web address], [facility] [address], [place], [address], 18:08:11 US, obstetric, follow-up 2024 025 neel [place] [address], [address], [place], [address], 22:39:45 US, obstetric, biophysical profile + non-stress test 2024 025 neel [place], [facility] [address], [place], [address], 22:39:45 non-stress test [address] [facility] [address], [place], [address], 06:37:12 Medication Orders None recorded. Patient TargetsNo targets recorded. Patient InstructionsNo instructions recorded. Reason for Referral None Reported. Results Created Date Observation Date Name Description Value Unit Range Abnormal Flag Note LastModifiedBy Organization Detail LastModifiedTime 12/30/19 25 12/30/2024 CULTU RE: URINE result report SEE RESULT S BELOW Test: Cultu re: Urine Speci men Sourc e: Urine - Clean Catch Speci men Type: Urine Speci men Date: 2024 1719 Resul t Date: 2024 2259 Resul t Statu s: Final resul t Abnor mal: No Resul ting Lab: [facility] [address] [facility] [address] Tel: CULTU RE ----- ----- ----- --- No growt h in 1 day (dete ction level of 10,00 0 colon ies / ml.) Not Available [facility] (Lab) [address] [facility], [place], [address], 01/03/2025 23:55:30 01/12/2001/11/2025 CULTU RE: GROUP B STREP SCREE N, REFLE X SUSCE PTIBI LITY result report SEE RESULT S BELOW abnormal Test: Cultu re: Group B Strep , Refle x Susce ptibi lity ([facility]/ [facility]/K H/[facility] ) Speci men Sourc e: Vagin a/Rec rebekah Speci men Type: Vagin al/Re ctal Speci men Date: 025 1150 Resul t Date: 025 1514 Resul t Statu s: Final resul t Abnor mal: Yes Resul ting Lab: [facility] [address] [facility] [address] Tel: CULTU RE ----- ----- ----- --- [...] at high risk for anaph ylaxi s. Adalid ptibi lity testi ng is not neces hugo for these drugs . Not Available [facility] (Lab) [address], [place], [address], 01/15/2025 16:18:09 12/15/19 25 12/15/2024 US, obste tric, follo w-up No observ ation record ed. [email or web address] [place] [address], [place], [address], 12/15/2024 13:52:35 12/15/19 25 12/15/2024 US, obste tric, follo w-up No observ ation record ed. [email or web address] [address], [facility], [place], [address], 12/15/2024 22:51:06 12/30/19 25 12/30/2024 non-s tress test No observ ation record ed. [place] [id number], [place], [address], 01/01/2025 13:38:09 01/12/20 25 01/11/2025 non-s tress test No observ ation record ed. [email or web address] [place] [address], [place], [address], 01/11/2025 11:07:08 01/12/20 25 01/11/2025 US, obste tric, follo w-up No observ ation record ed. [email or web address] [place] [address], [place], [address], 01/11/2025 17:20:12 01/12/20 25 01/11/2025 US, obste tric, bioph ysica l profi le + non-s tress test No observ ation record ed. [email or web address] [place] [address], [place], [address], 01/11/2025 17:20:21 01/12/20 25 01/11/2025 US, obste tric, follo w-up No observ ation record ed. [email or web address] [address], [place], [address], 01/11/2025 22:14:29 01/19/20 25 01/18/2025 US, obste tric, bioph ysica l profi le + non-s tress test No observ ation record ed. [email or web address] [place] [address], [place], [address], 01/18/2025 18:13:15 01/19/20 25 01/18/2025 US, obste tric, bioph ysica l profi le + non-s tress test No observ ation record ed. [email or web address] [address], [facility], [place], [address], 01/18/2025 14:29:09 01/19/20 25 01/18/2025 non-s tress test No observ ation record ed. [place] [address], [place], [address], 01/18/2025 14:40:38 01/24/20 25 01/23/2025 non-s tress test No observ ation record ed. [address], [place], [address], 01/26/2025 15:08:47 01/24/20 25 01/23/2025 non-s tress test No observ ation record ed. [place] [id number] [facility] [address], [place], [address], 01/26/2025 15:08:13 Result Notes None recorded. Problems Name Problem SNOMED Code Status Onset Date Resolution Date Notes Provider Name and Address Organization Details Recorded Time 55102575 Active 2024 Zelda Wang null, [facility] 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 22:12:52 Large for gestation age fetus 534475068 Active 94% at 11/2024 [facility] TRINI RODRIGUEZ MD [address], [place], [address], [facility] 22:40:35 Cytomegal ovirus antibody screening Active Positive per [facility]; echogenic bowel on 3T US, resolved on later scan; twice weekly testing per [facility] TRINI RODRIGUEZ MD [address], [place], [address], [facility] 22:12:30 Gestation al diabetes mellitus 90965402 Active TRINI RODRIGUEZ MD [address], [place], [address], [facility] 5 22:40:11 Gestation al diabetes mellitus 73398654 Active TRINI RODRIGUEZ MD [address], [place], [address], [facility] 5 22:40:11 Cytomegal ovirus antibody screening Active Positive per [facility]; echogenic bowel on 3T US, resolved on later scan; twice weekly testing per [facility] TRINI RODRIGUEZ MD [address], [place], [address], [facility] 22:40:17 Klinefelt er's syndrome, XXY 062327774 Active High risk on NIPT; declined amniocent esis; genetic testing at delivery TRINI RODRIGUEZ MD [address], [place], [address], [facility] 22:40:36 Large for gestation age fetus 368110995 Active 94% at 11/2024 [facility] TRINI RODRIGUEZ MD [address], [place], [address], [facility] 22:40:38 Problem Notes None recorded. Procedures Surgical History Date Name Laterality Status Provider Name and Address Organization Details Recorded Time 3 Appendectomy completed Zelda Wang [facility] 12/15/2024 13:12:49 Appendectomy completed Julieta Goddard [facility] 12/30/2024 17:09:16 Imaging Results Imaging Date Name Status LastModified by Organiz ation Details LastModified Time 12/15/2024 US, obstetric, follow-up completed [email or web address] [place] [address], [place], [address], 12/15/2024 13:52:35 12/15/2024 US, obstetric, follow-up completed [email or web address] [address], [place], [address], 12/15/2024 22:51:06 12/30/2024 non-stress test completed [address], [place], [address], 01/01/2025 13:38:09 01/11/2025 non-stress test completed [email or web address] [place] [address], [place], [address], 01/11/2025 11:07:08 01/11/2025 US, obstetric, follow-up completed [email or web address] [place] [address], [place], [address], 01/11/2025 17:20:12 01/11/2025 US, obstetric, biophysical profile + non-stress test completed [email or web address] [place] [address], [place], [address], 01/11/2025 17:20:21 01/11/2025 US, obstetric, follow-up completed [address], [place], [address], 01/11/2025 22:14:29 01/18/2025 US, obstetric, biophysical profile + non-stress test completed [email or web address] [place] [address], [place], [address], 01/18/2025 18:13:15 01/18/2025 US, obstetric, biophysical profile + non-stress test completed [email or web address] [address], [place], [address], 01/18/2025 14:29:09 01/18/2025 non-stress test completed [place] [address], [place], [address], 01/18/2025 14:40:38 01/23/2025 non-stress test completed [address], [address], 01/26/2025 15:08:47 01/23/2025 non-stress test completed [address], [address], 01/26/2025 15:08:13 Procedure Notes None recorded. Medical Equipment None [...] 5 172.72 cm 28.3 kg/m2 89 % 29721.1 8 g 125 mm[Hg] 83 mm[Hg] Julieta Goddard [facility] 5 11:57:34 Date Recorded Body height Body mass index (BMI) Body mass index (BMI) Percentile per age and sex Body weight Systolic blood pressure Diastolic blood pressure Provider Name and Address Organization Details Last Updated DateTime 5 172.72 cm 28.3 kg/m2 89 % 59887.1 8 g 116 mm[Hg] 77 mm[Hg] DONI Suzie [facility] 5 14:30:57 Social History Question [...] Or The Highest Degree You Have Received? [id number] Information not available 12/15/2024 What Is Your Occupation? Na [email or web address] Information not available 12/30/2024 Are There Any [...] Anxious, Or Unable To Sleep At Night)? [id number] Information not available 12/15/2024 Do You Use [...] SNOMED-CT Code Diagnosis ICD10 Code Diagnosis Note [id number] Carmen He [place] [address],[facility] [place] [address] 12/15/2024 11:23:34 12/15/2024 12:36:18 Gestational diabetes mellitus 28099454 O24.410 Z3A.32 [id number] Tod Briggs MD [place] [address] [address] 12/15/2024 11:26:10 12/15/2024 13:53:08 Routine care 964530253 Z34.03 [id number] TRINI RODRIGUEZ MD [place] [address],[facility] [place] [address] 12/30/2024 17:03:09 12/31/2024 10:05:53 Gestational diabetes mellitus 01575261 O24.410 Z3A.32 - A1- good glycemic control History of cytomegalovirus infection 3776987384 16777293 Z86.19 - positive antibodies - records requested from [facility]- twice weekly testing per [facility] Klinefelte r's syndrome, XXY 456641619 Q98.0 - high risk on NIPT- declined amniocente sis- plan for cord blood at deliveryfo r confirmato ry testing Large for gestation age fetus 955913836 O36.63X0 - 94% at 11/2024 [facility] scan Gestation period, 34 weeks 89047501 Z3A.34 - all outside scans and labs reviewed today- continue PNV RhD negative 390867011 Z 83 - B neg blood type- patient reports she has not received Rhogam injection yet- labs sent today for Rhogam eval [id number] Julieta Goddard [place] [address],[place] [address] 01/11/2025 10:19:23 01/11/2025 11:08:16 Gestational diabetes mellitus 80543636 O24.410 Z3A.32 - A1- good glycemic control [id number] [facility] [address],[place] [address] 01/11/2025 10:20:01 01/11/2025 12:06:23 Gestational diabetes mellitus 83765819 O24.410 O36.63X0 Z3A.36 [id number] TRINI RODRIGUEZ MD [place] [address],[place] [address] 01/11/2025 10:20:16 01/11/2025 12:33:12 Gestational diabetes mellitus 86798972 O24.410 O36.63X0 Z3A.36 - A1- good glycemic control Klinefelte r's syndrome, XXY 261149777 Q98.0 - high risk on NIPT- declined amniocente sis- plan for cord blood at delivery for confirmato ry testing Large for gestation age fetus 879504471 O36.63X0 - 94% at 11/2024 [facility] scan- 88% at 01/11/25 (36 week) US History of cytomegalovirus infection 2360544735 04147170 Z86.19 - positive antibodies , drawn due to echogenic bowel which resolved- weekly testing per [facility] Gestation period, 36 weeks 34306753 Z3A.36 - continue PNV- GBS collected today [id number] [facility] [address],[place] [address] 01/18/2025 13:29:19 01/18/2025 14:02:39 Gestational diabetes mellitus 44024955 O24.410 Z3A.37 [id number] Julieta Goddard [place] [address],[place] [address] 01/18/2025 13:29:38 01/18/2025 14:42:35 Gestational diabetes mellitus 95835594 O24.410 O36.63X0 Z3A.36 - A1- good glycemic control [id number] TRINI RODRIGUEZ MD [place] [address] [address] 01/18/2025 13:29:48 01/18/2025 14:58:44 Klinefelter's syndrome, XXY 536937260 Q98.0 - high risk on NIPT- declined amniocente sis- plan for cord blood at delivery for confirmato ry testing Gestationa l diabetes mellitus 33960568 O24.410 - A1- good glycemic control Gestation period, 37 weeks 79266978 Z3A.37 - continue PNV [employer] [facility] reptococcus carrier 3586751955 103 Z22.330 - plan for antibiotic s during labor Health Concerns Section Related Observation LastModified by Organization Detai ls LastModified Time None Recorded Concern Status LastModified by Organization Details LastModified Time None Recorded Advance Directives Directive N: Payers Encounter Date Sequence Insurance Name Policy Number Policy Rivers Covered Member ID Rivers Member ID Guarantor Name 01/11/2025 1 [employer] (MEDICAID HMO) [id number] Lani Ho [id number] Lani Ho 01/11/2025 1 [employer] (MEDICAID HMO) [id number] Lani Ho [id number] Lani Ho 01/18/2025 1 [employer] [facility] [place] ([place]) [id number] Lani Ho [id number] Lani Ho 01/18/2025 1 [employer] (MEDICAID HMO) [id number] Lani Ho [id number] Lani Ho 01/18/2025 1 [employer] [place] (MEDICAID HMO) [id number] 0003 Lani Ho [id number] Lani Ho OBGyn Episode Ob Episode Information Episode Created Date Number of Fetuses Patient Bloodtype Patient rh Status Prepregnancy Weight lbs Domestic Partner Domestic Partner Phone Father Name Biztalk Administrator Status 12/15/19 25 1 OPEN Fetus Data First Name Last Name Admitted to NICU Weight (g) Sex Living Outcome Pediatric Complications Fetus ID Race Codes Race Delivery Type [id number] Problems Problem Notes GBS + Problem Name Start Date End Date Resolution Snomed Code Not e Large for gestation age fetus 671590402 94% at 11/2024 S SM M US Gestational diabetes mellitus 52345092 Cytomegalovirus antibody screening 738229221 Positive per [facility]; echogenic bowel on 3T US, resolved on later scan; twice weekly testing per [facility] Klinefelter's syndrome, XXY 099785316 High risk on NI PT; declined amniocentesis; [...] Gestation 0 [email or web address] 12/15/2024 02/08/20 25 0 Pre- Flowsheet Flowsheet Date 12/15/2024 Lozada Score Blood Edema Fundus Height Fundus Units Glucose Ketones Leukocytes Nitrite Labor Signs Protein Cervic Dilation Cervic Effacement Cervic Station Type Weight in lbs Pre/Post Dialysis Refused Weight 182.986653908750 BP Diastolic BP Location Tested BP Systolic [...] Type Weight in lbs Pre/Post Dialysis Refused 186.666284691810 BP Diastolic BP Location Tested BP Systolic BP Type 83 L arm 127 sitting Fetus Heart Rate Present A 145 Fetus Movement A Yes Comments Good movement. No cram ping or bleeding. Transfer from [facility] at 32 weeks; has been complicated by GDMA1; good glycemic control per patient. Checking fasting and 2h PP sugars. Discussed risks of GDM including increased risk of c section, shoulder dystocia and hypoglycemia. Discussed importance of good glycemic control. 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 Will send cord blood at delivery to confirm. On review of [facility] records, patient had +CMV antibodies. Will request further records regarding CMV. Per patient, [facility] recommends twice weekly testing. Most recent growth [...] Weight in lbs Pre/Post Dialysis Refused Weight 186.824552030616 BP Diastolic BP Location Tested BP Systolic BP Type 83 L arm 125 sitting Fetus Heart Rate Present A 140 Fetus Movement A Yes Comments Patient c/o back pains and p elvic pressure. Good movement. Glucose overall wnl, no consistently abnormal readings. Received rhogam. BPP 10, EFW 88% (previously 94%). GBS collected today. SVE 0.5cm. Discussed MIL for GDM between 94u6-69x5f. Patient to discuss with partner and will [...] Weight in lbs Pre/Post Dialysis Refused Weight 186.435321878640 BP Diastolic BP Location Tested BP Systolic [...]
--- OUTSIDE RECORDS SUMMARY | 2025-01-31 02:26 | XMS_ITS ---
Author Organization Unknown Address [address] [place] [phone] Phone Care Team Providers Care Product Support Sales Representative Name Role Phone TABATHA RODGERS Attending Unavailable [...] MICR O - Collect Date/Time: 07/31/2022 17:14 [facility] ID: [id number] [address] [place] [address], [phone] LOINC: Test Value Unit Reference Range Code [...] TEST - Colle ct Date/Time: 07/31/2022 17:12 [facility] ID: [id number] [address] [place] [address], [phone] LOINC: Test Value Unit Reference Range Code Code System Flag TEST PERFORMED URINE PREG (URINE) NEGATIVE LOT#: [id number] EXP DATE: 2023-10-10 QC: ACCEPTABLE Social History Type Status Start Date End Date Code Code Syst em Smoking History Never smoker (Never Smoked) 826919251 SNOMED CT Sex Female Sexual Orientation Straight or Heterosexual 10364314 SNOMED CT Gender Identity Female 75626447166605 [address] Vital Signs Vital Sign Value Unit Litchfield Value Litchfield Unit Date/Time Recent/Initial? Code Code System Body Mass Index 23.34 kg/m2 07/31/2022 16:59 Initial 18349 -5 LOINC Body Mass Index Percentile 71 % 07/31/2022 16:59 Initial 49057 -9 LOINC Systolic Blood Pressure 120 mm[Hg] 07/31/2022 16:59 Initial 8480- 6 LOINC Diastolic Blood Pressure 80 mm[Hg] 07/31/2022 16:59 Initial 8462- 4 [facility] Body Surface Area 1.79 m2 07/31/2022 16:59 Initial 3140- 1 INC Height 170.180 0 cm 67.00 in 07/31/2022 16:59 Initial 8302- 2 [facility] O2 Saturation 98 % 2021 16:59 Initial 06968 -5 [facility] Pulse 92.0 /min 07/31/2022 16:59 Initial 8867- 4 [facility] Temperature 36.8 Antonella 98.2 F 07/31/20 16:59 Initial 8310- 5 [facility] Weight 67.59 kg 149.00 lbs 07/31/2022 16:59 Initial 57273 -7 [facility] Medications Medication Start Date End Date Route Frequency Dose Code Code System Medication Instructions Home Meds predniSONE 50MG Oral Tablet 06/07/2022 07/31/2022 By Mouth Daily 1 TABLET 455617 RxNorm 1 TABLET By Mouth Daily Anel-28 30MCG-0.15MG-NA Oral Tablet 06/07/2022 09/12/2022 By Mouth Daily 1 TABLET 666129 RxNorm 1 TABLET By Mouth Daily Diflucan [...] 02/20/2023 By Mouth As Directed 1 PACK 147381 RxNorm 1 PACK By Mouth As Directed Methocarbamol 750MG Oral Tablet 12/25/2022 03/12/2023 By Mouth As needed every 8 hr 329851 RxNorm 1-2 TABLET By Mouth As needed every 8 hr Anel-28 30 MCG-0.15 MG; NA Oral Tablet 12/25/2022 03/12/2023 By Mouth Daily 1 TABLET 755796 RxNorm 1 TABLET By Mouth Daily Macrobid 100MG Oral Capsule 02/20/2023 03/12/2023 By mouth Twice a day 1 TABLET 267077 RxNorm 1 TABLET By mouth Twice a day X 7 DAYS Pyridium 100MG Oral Tablet 02/20/2023 03/12/2023 By mouth As needed every 8 hr 1 TABLET 1778742 RxNorm 1 TABLET By mouth As needed every 8 hr for urinary pain ZyrTEC Allergy 10MG Oral Capsule, Liquid Filled 03/12/2023 Unknown By Mouth Daily 1 CAPSULE 7089153 RxNorm 1 CAPSULE By Mouth Daily Fluticasone 0.05MG/1Actuati on Nasal [place] 03/12/2023 Unknown Nasal Daily 1 Sprays 7162522 RxNorm 1 Spr ays Nasal Daily Azithromycin 500MG Oral Tablet 06/04/2024 Unknown By Mouth x1 NOW 2 TABLET 751025 RxNorm 2 TABLET By Mouth x1 NOW [...] Status Code Code System SEASONAL ALLERGY active 612366634 SNO MED-CT FAMILY PLANNING 06/20/2020 active 529933181 SNO MED-CT BITE OF INSECT active 796299103 SNOME D-CT ES OF VAGINA 08/07/2022 active 12669057 S NOMED-CT MENORRHAGIA active 669181633 SNOMED-C T PAINFUL NECK active 06230782 SNOMED- CT ADHD OF CHILDHOOD 07/22/2019 resolved 562279695 S NOMED-CT SEASONAL NASAL ALLERGY 07/22/2019 resolved 145752 001 SNOMED-CT HISTORY OF CHICKENPOX 07/22/2019 resolved 2783508 08 SNOMED-CT Allergies and Adverse Reactions Allergy Substance Reaction Severity Start Date Concern Status Co de Code System Active seasonal allergies Active No Known Drug Allergies Active 967411641 SNOMED-CT No Known Drug Allergies Active 096432891 SNOMED-CT Plan of Treatment Description Due Date Details Instructions DEPRESSION SCREENING DUE 06/20/2021 Future Order Description Future Order Date Futu re Order Loinc: BACTERIAL VAGINOSIS RAPID TEST 07/31/2022 LOINC: 6410-5 CULTURE YEAST, WITH IDENTIFICATION 07/31/2022 LOINC: 51194-3 TRICHOMONAS VAGINALIS FEMALE RNA QUAL 2 LOINC: 43849-3 CHLAMYDIA/GC URINE RNA, TMA APTIMA 07/31/2022 LOINC: 5048-4 CULTURE URINE 07/31/2022 LOINC: 630-4 Encounters Encounter Diagnosis Start Date Code Code Sys tem Acute vaginitis 07/31/2022 57308249 SNOMED-CT Personal Care Team Section Performer Name Performer Role Active Date Inactive Da te Progress Notes [facility] 07/31/2022 18:10 Admission Date/Time: 07/31/2022 16:21 Convenient [...] NEGATIVE 07/31/2022 17:10 07/31/2022 17:12 final LOT#: [id number] 07/31/2022 17:10 07/31/2022 17:12 final EXP DATE: [...]
--- NOTE | 2025-01-31 02:28 | ECG_ITS ---
Test Date: 2025-01-31 02:37:57 Measurements Intervals [place] Rate: 69 P: 63 DE: 145 QRS: 93 QRSD: 93 T: 76 QT: 392 QTc: 422 Interpretive Statements SINUS RHYTHM WITH SINUS ARRHYTHMIA POSSIBLE LEFT ATRIAL ENLARGEMENT [-0.1mV P-WAVE IN V1/V2] BORDERLINE RIGHT AXIS DEVIATION [QRS AXIS > 90] INCOMPLETE RIGHT BUNDLE BRANCH BLOCK No previous ECG available for comparison Electronically Signed On 01-31-2025 13:32:25 CDT by Elieser Massey M.D.
[2025-01-31 02:30] VITALS: BP 135/83; PULSE 74; RESP 13; TEMP 36.6; O2SAT 100
[2025-01-31 02:36] VITALS: PULSE 74; O2SAT 100
[2025-01-31 02:47] VITALS: O2SAT 100
[2025-01-31 02:50] LABS: Basophils Absolute Auto 0.1 K/mm3 (0.0-0.1); Basophils Percent Auto 0.7 % (0.2-1.2); Eosinophils Absolute Auto 0.2 K/mm3 (0-0.3); Eosinophils Percent Auto 2.2 % (0-4.4); Hematocrit 36.2 % (37.0-47.0); Hemoglobin 12.1 g/dL (12.0-15.0); Immature Granulocyte Absolute 0.04 K/mm3 (0.00-0.031); Immature Granulocyte Percent A 0.5 % (0-0.5); Lymphocytes Absolute Auto 2.74 K/mm3 (0.9-3.2); Mean Corpuscular HGB Conc 33.4 g/dl (32-36); Mean Corpuscular Hemoglobin 30.5 pg (26-34); Mean Corpuscular Volume 91.2 fl (80-100); Mean Platelet Volume 10.1 fl (7.4-10.4); Monocytes Absolute Auto 0.7 K/mm3 (0.1-0.6); Monocytes Percent Auto 8.7 % (2.6-8.5); Neutrophils Percent Auto 51.9 % (45.5-73.1); Platelet Count Result 318 k/mm3 (150-375); Red Blood Count 3.97 M/mm3 (4.2-5.4); Red Cell Distribution Width 12.7 % (11.5-14.5); White Blood Count 7.6 K/mm3 (4.5-10.0)
[2025-01-31] MEDS: BELLADONNA ALK/PHENOB ELIX 10 ML, MAG HYDROX/ALUMINUM HYD/SIMETH 30 ML, LIDOCAINE 2% VI... PO (02:51)
[2025-01-31] MEDS: ASPIRIN 81 MG CHEWABLE TABLET 324 MG PO (02:51)
--- NOTE | 2025-01-31 02:55 | ED.GENADULT ---
HPI - General Adult General Chief complaint: Chest Pain Stated complaint: chest pain Time Seen by Provider: 01/31/25 02:41 History of Present Illness HPI narrative: Patient 19-year-old female who presents emergency department with chief complaint of chest and back pain. 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 the patient states she previously had an episode of chest discomfort feels as though there is like she needs to have a big for patient states that tonight the pain got worse and reports she felt little short of breath with this Related Data Home Medications ?Medication ?Instructions ?Recorded ?Confirmed ?Last Taken ?Type vit no.95-ferrous 1 tablet PO DAILY 01/22/25 01/22/25 01/21/25 History fumarate 28 mg-folic acid 800 mcg tablet () Allergies Allergy/AdvReac Type Severity Reaction Status Date / Time No Known Allergies Allergy Verified 01/31/25 02:21 Review of Systems Review of Systems: A 10 system review of systems was completed on the patient and is negative except for what is stated in the HPI. Nursing and ancillary documentation was reviewed. [facility] Family History Family History Other No pertinent family history in first degree relatives Social History Social History Smoking status: Former smoker Tobacco type: e-cigarettes/vaping Second hand tobacco smoke exposure: Yes Substance use: never Do You Feel Safe in your Home?: Yes Lack of Transportation: No Lack of Food: Never True Current Housing: I Have Housing Concerned About Future Housing: No Difficulty Paying Gas/Electric Bills: No Difficulty Paying for Meds: No Currently Unemployed: No Education: High School Diploma/GED Difficulty w/ Childcare or Family Care: No Spiritual care concerns: No Exam Narrative: GENERAL: Well-appearing, well-nourished, and in no acute distress. HEAD: Normocephalic, atraumatic. EYES: PERRLA and EOMI. ENT: Nares clear, no rhinorrhea or epistaxis. Mucous membranes moist. NECK: Supple. CHEST: Clear to auscultation. No respiratory distress. HEART: Regular rate and rhythm. No murmur heard. Normal peripheral pulses. ABDOMEN: Soft, nontender, nondistended, normal active bowel sounds. EXTREMITIES: Normal range of motion. No edema. SKIN: Warm, dry, no rash. NEURO: No focal deficits. Alert and oriented x3. PSYCH: Normal mood and affect. Course Vital Signs Vital signs: Vital Signs Temperature 36.6 C 01/31/25 02:30 Pulse Rate 74 01/31/25 02:30 Respiratory Rate 13 01/31/25 02:30 Blood Pressure 135/83 01/31/25 02:30 Pulse Oximetry 100 01/31/25 02:30 Oxygen Delivery Room Air 01/31/25 02:30 Temperature 36.7 C 01/31/25 05:02 Pulse Rate 50 L 01/31/25 05:02 Respiratory Rate 18 01/31/25 05:02 Blood Pressure 136/68 01/31/25 05:02 Pulse Oximetry 99 01/31/25 05:02 Oxygen Delivery Room Air 01/31/25 02:47 Medical Decision Making Vital Signs Vital Signs: Vital Signs Temperature 36.6 C 01/31/25 02:30 Pulse Rate 74 01/31/25 02:30 Respiratory Rate 13 01/31/25 02:30 Blood Pressure 135/83 01/31/25 02:30 Pulse Oximetry 100 01/31/25 02:30 Oxygen Delivery Room Air 01/31/25 02:30 Temperature 36.7 C 01/31/25 05:02 Pulse Rate 50 L 01/31/25 05:02 Respiratory Rate 18 01/31/25 05:02 Blood Pressure 136/68 01/31/25 05:02 Pulse Oximetry 99 01/31/25 05:02 Oxygen Delivery Room Air 01/31/25 02:47 Lab Data 01/31/25 02:45 01/31/25 02:45 Labs: Lab Results 01/31/25 01/31/25 01/31/25 Range/Units 02:45 02:59 03:01 WBC 7.6 (4.5-10.0) K/mm3 RBC 3.97 L (4.2-5.4) M/mm3 Hgb 12.1 (12.0-15.0) g/dL Hct 36.2 L (37.0-47.0) % MCV 91.2 (80-100) fl MCH 30.5 (26-34) pg MCHC 33.4 (32-36) g/dl RDW 12.7 (11.5-14.5) % Plt Count 318 (150-375) k/mm3 MPV 10.1 (7.4-10.4) fl Immature Gran % (Auto) 0.5 (0-0.5) % Neut % (Auto) 51.9 (45.5-73.1) % Lymph % (Auto) 36.0 (18.3-44.2) % [place] % (Auto) 8.7 H (2.6-8.5) % Eos % (Auto) 2.2 (0-4.4) % Baso % (Auto) 0.7 (0.2-1.2) % Lymph # (Auto) 2.74 (0.9-3.2) K/mm3 [place] # (Auto) 0.7 H (0.1-0.6) K/mm3 Eos # (Auto) 0.2 (0-0.3) K/mm3 Baso # (Auto) 0.1 (0.0-0.1) K/mm3 Abs Immat Gran (auto) 0.04 H (0.00-0.031) K/mm3 Absolute Neuts (auto) 4.0 (1.3-6.7) K/mm3 Absolute Nucleated RBC 0.000 (0.0-0.012) K/mm3 Nucleated RBC % 0.0 (0.0-0.2) % PT 12.1 (11.1-14.7) Seconds INR 0.9 APTT 24.7 (22.3-36.8) Seconds Sodium 140 (137-145) mmol/L Potassium 3.6 (3.4-5.0) mmol/L Chloride 106 (98-107) mmol/L Carbon Dioxide 22 (22-30) mmol/L Anion Gap 12 (4-12) mmol/L BUN 14 D (7-17) mg/dL Creatinine 0.73 (0.7-1.0) mg/dL Estim Creat Clear Calc Not Reportable Estimated GFR > 60 (59 - ) Glucose 90 (65-110) mg/dL Uric Acid 6.4 (2.5-7.5) mg/dL Calcium 9.5 (8.4-10.2) mg/dL Magnesium 2.0 (1.6-2.3) mg/dL Total Bilirubin 0.5 (0.2-1.3) mg/dL AST 42 H (14-36) U/L ALT 31 (6-35) U/L Alkaline Phosphatase 139 H (38-126) U/L Troponin I < 0.012 (0.000-0.034) ng/mL NT-Pro-B Natriuret Pep 88 (19.9-100) pg/mL Total Protein 7.0 (6.3-8.2) g/dL Albumin 4.2 (3.5-5.1) g/dL Lipase 88 (23-300) U/L Urine Color Yellow (Yellow) Urine Appearance Cloudy H (Clear) Urine pH 6.5 (5.0-9.0) Ur Specific [place] 1.015 (1.001-1.035) Urine Protein 1+ H (Negative) mg/dL Urine Glucose (UA) Negative (Negative) mg/dL Urine Ketones Negative (Negative) mg/dL Ur Blood (Man) 3+ H (Negative) Urine Nitrate Negative (Negative) Urine Bilirubin Negative (Negative) Urine Urobilinogen 0.2 (<2.0) mg/dL Leukocyte Esterase Rfl 3+ H (Negative) LYNNE/UL Urine RBC 0-2 (0-2) /hpf Urine WBC >100 H (0-3) /hpf Ur Squamous Epith Cells Occasional (Few) /hpf Urine Bacteria 1+ H /hpf Urine Casts 0-2 POC Urine HCG, Qual Negative (Negative) 01/31/25 Range/Units 05:33 WBC (4.5-10.0) K/mm3 RBC (4.2-5.4) M/mm3 Hgb (12.0-15.0) g/dL Hct (37.0-47.0) % MCV (80-100) fl MCH (26-34) pg MCHC (32-36) g/dl RDW (11.5-14.5) % Plt Count (150-375) k/mm3 MPV (7.4-10.4) fl Immature Gran % (Auto) (0-0.5) % Neut % (Auto) (45.5-73.1) % Lymph % (Auto) (18.3-44.2) % [place] % (Auto) (2.6-8.5) % Eos % (Auto) (0-4.4) % Baso % (Auto) (0.2-1.2) % Lymph # (Auto) (0.9-3.2) K/mm3 [place] # (Auto) (0.1-0.6) K/mm3 Eos # (Auto) (0-0.3) K/mm3 Baso # (Auto) (0.0-0.1) K/mm3 Abs Immat Gran (auto) (0.00-0.031) K/mm3 Absolute Neuts (auto) (1.3-6.7) K/mm3 Absolute Nucleated RBC (0.0-0.012) K/mm3 Nucleated RBC % (0.0-0.2) % PT (11.1-14.7) Seconds INR APTT (22.3-36.8) Seconds Sodium (137-145) mmol/L Potassium (3.4-5.0) mmol/L Chloride (98-107) mmol/L Carbon Dioxide (22-30) mmol/L Anion Gap (4-12) mmol/L BUN (7-17) mg/dL Creatinine (0.7-1.0) mg/dL Estim Creat Clear Calc Estimated GFR (59 - ) Glucose (65-110) mg/dL Uric Acid (2.5-7.5) mg/dL Calcium (8.4-10.2) mg/dL Magnesium (1.6-2.3) mg/dL Total Bilirubin (0.2-1.3) mg/dL AST (14-36) U/L ALT (6-35) U/L Alkaline Phosphatase (38-126) U/L Troponin I Pending (0.000-0.034) ng/mL NT-Pro-B Natriuret Pep (19.9-100) pg/mL Total Protein (6.3-8.2) g/dL Albumin (3.5-5.1) g/dL Lipase (23-300) U/L Urine Color (Yellow) Urine Appearance (Clear) Urine pH (5.0-9.0) Ur Specific [place] (1.001-1.035) Urine Protein (Negative) mg/dL Urine Glucose (UA) (Negative) mg/dL Urine Ketones (Negative) mg/dL Ur Blood (Man) (Negative) Urine Nitrate (Negative) Urine Bilirubin (Negative) Urine Urobilinogen (<2.0) mg/dL Leukocyte Esterase Rfl (Negative) LYNNE/UL Urine RBC (0-2) /hpf Urine WBC (0-3) /hpf Ur Squamous Epith Cells (Few) /hpf Urine Bacteria /hpf Urine Casts POC Urine HCG, Qual (Negative) Discharge Plan Discharge Clinical Impression: Chest pain Patient Disposition: Home, Self-Care Condition: Stable Instructions: Antibiotic Form, Chest Pain (ED) Additional Instructions: It is recommended that you pump and dispose of your breast milk for 24 hours after receiving the IV contrast. Patient Language: Tajik Prescriptions: No Action PNV cmb#95-ferrous fumarate-FA [] 28 mg iron- 800 mcg tablet 1 tablet PO DAILY Follow-up/Referrals: UNKNOWN,DOCTOR [Primary Care Provider] - Time of Disposition: 05:51
[2025-01-31 03:02] LABS: INR 0.9; Prothrombin Time 12.1 Seconds (11.1-14.7)
--- OUTSIDE RECORDS SUMMARY | 2025-01-31 03:02 | XMS_ITS ---
Author Organization Unknown Address [address] [place] [phone] Phone Care Team Providers Care Superintendent [employer] Name Role Phone ABBY AGUIRRE Attending Unavailable [...] em Smoking History Never smoker (Never Smoked) 843825352 SNOMED CT Sex Female Sexual Orientation Straight or Heterosexual 14210662 SNOMED CT Gender Identity Female [id number] [address] Vital Signs Vital Sign Value Unit [place] Value [place] Unit Date/Time Recent/Initial? Code Code System Body Mass Index 26.21 kg/m2 05/06/2023 12:01 Initial 96434 -5 [facility] Body Mass Index Percentile 85 % 05/06/2023 12:01 Initial 19390 -9 [facility] Systolic Blood Pressure 118 mm[Hg] 05/06/2023 12:01 Initial 8480- 6 [facility] Diastolic Blood Pressure 74 mm[Hg] 05/06/2023 12:01 Initial 8462- 4 [facility] Body Surface Area 3.35 m2 05/06/2023 12:01 Initial 3140- 1 [facility] Height 248.920 0 cm 98.00 in 05/06/2023 12:01 Initial 8302- 2 [facility] O2 Saturation 98 % 2022 12:01 Initial 02654 -5 [facility] Pulse 78.0 /min 05/06/2023 12:01 Initial 8867- 4 [facility] Temperature 36.4 Antonella 97.5 F 05/06/20 12:01 Initial 8310- 5 [facility] Weight 162.40 kg 358.03 lbs 05/06/2023 12:01 Initial 77744 -7 [facility] Medications Medication Start Date End Date Route Frequency Dose Code Code System Medication Instructions Home Meds ZyrTEC Allergy 10MG Oral Capsule, Liquid Filled 03/12/2023 Unknown By Mouth Daily 1 CAPSULE 2254904 RxNorm 1 CAPSULE By Mouth Daily Fluticasone 0.05MG/1Actuatio n Nasal [place] 03/12/2023 Unknown Nasal Daily 1 Sprays 3402634 RxNorm 1 Spra ys Nasal Daily Azithromycin 500MG Oral Tablet 06/04/2024 Unknown By Mouth x1 NOW 2 TABLET 962061 RxNorm 2 TABLET By Mouth x1 NOW [...] Status Code Code System SEASONAL ALLERGY active 618921815 SNO MED-CT FAMILY PLANNING 06/20/2020 active 070713259 SNO MED-CT BITE OF INSECT active 712785465 SNOME D-CT ES OF VAGINA 08/07/2022 active 29506459 S NOMED-CT MENORRHAGIA active 720011038 SNOMED-C T PAINFUL NECK active 95958226 SNOMED- CT ADHD OF CHILDHOOD 07/22/2019 resolved 456981611 S NOMED-CT SEASONAL NASAL ALLERGY 07/22/2019 resolved 871566 001 SNOMED-CT HISTORY OF [place] 07/22/2019 resolved 7991520 08 SNOMED-CT Allergies and Adverse Reactions Allergy Substance Reaction Severity Start Date Concern Status Co de Code System Active seasonal allergies Active No Known Drug Allergies Active 052517146 SNOMED-CT No Known Drug Allergies Active 576742489 SNOMED-CT Plan of Treatment Description Due Date Details Instructions DEPRESSION SCREENING DUE 06/20/2021 Encounters Encounter Diagnosis Start Date Code Code Sys tem Injury of head 05/06/2023 85944970 SNOMED-CT Personal Care Team Section Performer Name Performer Role Active Date Inactive Da te Progress Notes [facility] 05/06/2023 13:28 Date of Service: [...] Instructions Start Date Prescribing Fluticasone 0.05MG/1Actuation Nasal [place] 1 Sprays Nasal Daily 03/12/2023 Blanco Gallego ZyrTEC Allergy 10MG Oral Capsule, Liquid Filled 1 CAPSULE By Mouth Daily 03/12/2023 Blanco Gallego This examination was transcribed using the [employer] voice recognition system without human elevator operator. In an effort to expedite patient care, this report has not been adjusted for typographical, or medical or syntax by a trained medical information specialist.
--- OUTSIDE RECORDS SUMMARY | 2025-01-31 03:02 | XMS_ITS ---
Author Organization Unknown Address [address], [place] [phone] Phone Care Team Providers Care Drum Drier Name Role Phone DEON RAFIQ Attending Unavailable Results CYTOMEGALOVIRUS AB IGG - Col lect Date/Time: 10/22/2024 14:12 [facility] ID: [id number] [address], [place], [phone] LOINC: 5124-3 Test Value Unit Reference Range Code Code System Flag CYTOMEGALOVIRUS ANTIBODY(IGG) >10.00 H PARVOVIRUS B19 IGG & IGM - C ollect Date/Time: 10/22/2024 14:12 [facility] ID: [id number] [address], [place], [phone] LOINC: 5273-8 Test Value Unit Reference Range Code Code System Flag PARVOVIRUS B19 ANTIBODY(IGG) 0.2 PARVOVIRUS B19 ANTIBODY(IGM) 0.2 Social History Type Status Start Date End Date Code Code Syst em Smoking History Never smoker (Never Smoked) 783358350 SNOMED CT Sex Female Sexual Orientation Straight or Heterosexual 64041850 SNOMED CT Gender Identity Female [id number] [address] Medications Medication Start Date End Date Route Frequency Dose Code Code System Medication Instructions Home Meds ZyrTEC Allergy 10MG Oral Capsule, Liquid Filled 03/12/2023 Unknown By Mouth Daily 1 CAPSULE 2649493 RxNorm 1 CAPSULE By Mouth Daily Fluticasone 0.05MG/1Actuatio n Nasal [place] 03/12/2023 Unknown Nasal Daily 1 Sprays 3409915 RxNorm 1 Spra ys Nasal Daily Azithromycin 500MG Oral Tablet 06/04/2024 Unknown By Mouth x1 NOW 2 TABLET 194542 RxNorm 2 TABLET By Mouth x1 NOW [...] Status Code Code System SEASONAL ALLERGY active 985281847 SNO MED-CT FAMILY PLANNING 06/20/2020 active 850065306 SNO MED-CT BITE OF INSECT active 173242485 SNOME D-CT ES OF VAGINA 08/07/2022 active 81770802 S NOMED-CT MENORRHAGIA active 957130369 SNOMED-C T PAINFUL NECK active 97493068 SNOMED- CT ADHD OF CHILDHOOD 07/22/2019 resolved 757545397 S NOMED-CT SEASONAL NASAL ALLERGY 07/22/2019 resolved 958259 001 SNOMED-CT HISTORY OF [place] 07/22/2019 resolved 5739372 08 SNOMED-CT Allergies and Adverse Reactions Allergy Substance Reaction Severity Start Date Concern Status Co de Code System Active seasonal allergies Active No Known Drug Allergies Active 960004221 SNOMED-CT No Known Drug Allergies Active 992636607 SNOMED-CT Plan of Treatment Description Due Date Details Instructions DEPRESSION SCREENING DUE 06/20/2021 Encounters Encounter Diagnosis Start Date Code Code Sys tem ultrasound scan abnormal 10/22/2024 188780 005 SNOMED-CT Personal Care Team Section Performer Name Performer Role Active Date Inactive Da xena
[2025-01-31 03:03] LABS: Partial Thromboplastin Time 24.7 Seconds (22.3-36.8)
--- OUTSIDE RECORDS SUMMARY | 2025-01-31 03:03 | XMS_ITS ---
Author Organization Unknown Address [address] [place] [phone] Phone Care Team Providers Care Candy Separator [place]robing Name Role Phone JOSUE FULTON Attending Unavailable [...] MICR O - Collect Date/Time: 02/20/2023 18:44 [facility] ID: [id number] [address] [place] [address], [phone] LOINC: Test Value Unit Reference Range Code [...] TEST - Colle ct Date/Time: 02/20/2023 18:43 [facility] ID: [id number] [address] [place] [address], [phone] LOINC: Test Value Unit Reference Range Code Code System Flag TEST PERFORMED URINE PREG (URINE) NEGATIVE LOT#: [id number] EXP DATE: 2023-12-11 QC: ACCEPTABLE Social History Type Status Start Date End Date Code Code Syst em Smoking History Never smoker (Never Smoked) 920339389 SNOMED CT Sex Female Sexual Orientation Straight or Heterosexual 71685863 SNOMED CT Gender Identity Female [id number] [address] Vital Signs Vital Sign Value Unit [place] Value [place]aines Unit Date/Time Recent/Initial? Code Code System Body Mass Index 24.50 kg/m2 02/20/2023 18:36 Initial 87322 -5 LOINC Body Mass Index Percentile 77 % 02/20/2023 18:36 Initial 65604 -9 LOINC Systolic Blood Pressure 112 mm[Hg] 02/20/2023 18:36 Initial 8480- 6 LOINC Diastolic Blood Pressure 70 mm[Hg] 02/20/2023 18:36 Initial 8462- 4 [facility] Body Surface Area 1.85 m2 02/20/2023 18:36 Initial 3140- 1 [facility] Height 171.450 0 cm 67.50 in 02/20/2023 18:36 Initial 8302- 2 [facility] O2 Saturation 98 % 2022 18:36 Initial 02909 -5 [facility] Pulse 91.0 /min 02/20/2023 18:36 Initial 8867- 4 [facility] Temperature 37.2 Antonella 98.9 F 02/21/20 18:36 Initial 8310- 5 [facility] Weight 72.03 kg 158.80 lbs 02/20/2023 18:36 Initial 47603 -7 [facility] Medications Medication Start Date End Date Route Frequency Dose Code Code System Medication Instructions Home Meds Medrol Dosepak 4MG Oral Tablet 12/25/2022 02/20/2023 By Mouth As Directed 1 PACK 193918 RxNorm 1 PACK By Mouth As Directed Methocarbamol 750MG Oral Tablet 12/25/2022 03/12/2023 By Mouth As needed every 8 hr 097297 RxNorm 1-2 TABLET By Mouth As needed every 8 hr Alta-28 30 MCG-0.15 MG; NA Oral Tablet 12/25/2022 03/12/2023 By Mouth Daily 1 TABLET 924644 RxNorm 1 TABLET By Mouth Daily Macrobid 100MG Oral Capsule 02/20/2023 03/12/2023 By mouth Twice a day 1 TABLET 532335 RxNorm 1 TABLET By mouth Twice a day X 7 DAYS Pyridium 100MG Oral Tablet 02/20/2023 03/12/2023 By mouth As needed every 8 hr 1 TABLET 8543562 RxNorm 1 TABLET By mouth As needed every 8 hr for urinary pain ZyrTEC Allergy 10MG Oral Capsule, Liquid Filled 03/12/2023 Unknown By Mouth Daily 1 CAPSULE 1953800 RxNorm 1 CAPSULE By Mouth Daily Fluticasone 0.05MG/1Actuati on Nasal [place] 03/12/2023 Unknown Nasal Daily 1 Sprays 0631490 RxNorm 1 Spr ays Nasal Daily Azithromycin 500MG Oral Tablet 06/04/2024 Unknown By Mouth x1 NOW 2 TABLET 138696 RxNorm 2 TABLET By Mouth x1 NOW [...] Status Code Code System SEASONAL ALLERGY active 029609151 SNO MED-CT FAMILY PLANNING 06/20/2020 active 014731760 SNO MED-CT BITE OF INSECT active 885828270 SNOME D-CT ES OF VAGINA 08/07/2022 active 64233388 S NOMED-CT MENORRHAGIA active 453638067 SNOMED-C T PAINFUL NECK active 72527257 SNOMED- CT ADHD OF CHILDHOOD 07/22/2019 resolved 100225036 S NOMED-CT SEASONAL NASAL ALLERGY 07/22/2019 resolved 717554 001 SNOMED-CT HISTORY OF [place] 07/22/2019 resolved 0578035 08 SNOMED-CT Allergies and Adverse Reactions Allergy Substance Reaction Severity Start Date Concern Status Co de Code System Active seasonal allergies Active No Known Drug Allergies Active 940918826 SNOMED-CT No Known Drug Allergies Active 711453675 SNOMED-CT Plan of Treatment Description Due Date Details Instructions DEPRESSION SCREENING DUE 06/20/2021 Future Order Description Future Order Date Futu re Order Loinc: CULTURE URINE 02/20/2023 LOINC: 630-4 TRICHOMONAS VAGINALIS FEMALE RNA QUAL LOINC: 30423-4 GC/CHLAMYDIA PCR [place] 02/20/2023 LOINC: 448 06-8 CULTURE YEAST, WITH IDENTIFICATION 02/20/2023 LOINC: 77466-1 BACTERIAL VAGINOSIS RAPID TEST 02/20/2023 LOINC: 6410-5 Encounters Encounter Diagnosis Start Date Code Code Sys tem Urinary tract infectious disease 02/20/2023 94300492 SNOMED-CT Personal Care Team Section Performer Name Performer Role Active Date Inactive Da te Progress Notes [facility] 02/20/2023 19:27 Admission Date/Time: 02/20/2023 [...] up. This examination was transcribed using the [employer] voice recognition system without human traffic enumerator. In an effort to expedite patient care, this report has not been adjusted for typographical, or medical or syntax by a trained medical file clerk. Allergy Table Allergen Type Reaction seasonal allergies [...] NEGATIVE 02/20/2023 18:38 02/20/2023 18:43 final LOT#: [id number] 02/20/2023 18:38 02/20/2023 18:43 final EXP DATE: [...] day X 7 DAYS 02/20/2023 JOSUE FULTON Alta-28 30 MCG-0.15 MG; NA Oral Tablet 1 TABLET By Mouth Daily 12/25/2022 Blanco Gallego Methocarbamol 750MG Oral Tablet 1-2 TABLET By Mouth As needed every 8 hr 12/25/2022 Blanco Gallego
--- OUTSIDE RECORDS SUMMARY | 2025-01-31 03:03 | XMS_ITS ---
Author Organization Unknown Address [address], [place] [phone] Phone Care Team Providers Care Economic Development Manager Name Role Phone mattyKlausSHERMAN Machado Social History Type Status Start Date End Date Code Code Syst em Smoking History Never smoker (Never Smoked) 418088012 SNOMED CT Sex Female Sexual Orientation Straight or Heterosexual 49612716 SNOMED CT Gender Identity Female [id number] [address] Medications Medication Start Date End Date Route Frequency Dose Code Code System Medication Instructions Home Meds ZyrTEC Allergy 10MG Oral Capsule, Liquid Filled 03/12/2023 Unknown By Mouth Daily 1 CAPSULE 2751836 RxNorm 1 CAPSULE By Mouth Daily Fluticasone 0.05MG/1Actuatio n Nasal [place] 03/12/2023 Unknown Nasal Daily 1 Sprays 3051972 RxNorm 1 Spra ys Nasal Daily Azithromycin 500MG Oral Tablet 06/04/2024 Unknown By Mouth x1 NOW 2 TABLET 953657 RxNorm 2 TABLET By Mouth x1 NOW [...] Status Code Code System SEASONAL ALLERGY active 059931221 SNO MED-CT FAMILY PLANNING 06/20/2020 active 272347799 SNO MED-CT BITE OF INSECT active 044685831 SNOME D-CT ES OF VAGINA 08/07/2022 active 88103632 S NOMED-CT MENORRHAGIA active 598312051 SNOMED-C T PAINFUL NECK active 54722679 SNOMED- CT ADHD OF CHILDHOOD 07/22/2019 resolved 278427610 S NOMED-CT SEASONAL NASAL ALLERGY 07/22/2019 resolved 645225 001 SNOMED-CT HISTORY OF [place] 07/22/2019 resolved 1114732 08 SNOMED-CT Allergies and Adverse Reactions Allergy Substance Reaction Severity Start Date Concern Status Co de Code System Active seasonal allergies Active No Known Drug Allergies Active 620209276 SNOMED-CT No Known Drug Allergies Active 634088912 SNOMED-CT Plan of Treatment Description Due Date Details Instructions DEPRESSION SCREENING DUE 06/20/2021 Encounters Encounter Diagnosis Start Date Code Code Sys tem Dysuria 06/03/2024 80034465 SNOMED-CT Personal Care Team Section Performer Name Performer Role Active Date Inactive Da te
--- OUTSIDE RECORDS SUMMARY | 2025-01-31 03:03 | XMS_ITS | Clinical Summary ---
Author Organization [facility] Address [address] [place] [id number] Care Team Providers Care Manager Commercial Sales Name Role Phone Geovanna Pryor NP Primary [...] age to complete this topic Care Teams Manager Commercial Sales Relationship Specialty Start Date End Date Geovanna Pryor NP [address] [place] [address] PCP - General Nurse Practitioner Family 06/17/19 Geovanna Pryor NP [address] [place] [address] 06/17/19
--- OUTSIDE RECORDS SUMMARY | 2025-01-31 03:03 | XMS_ITS ---
Author Organization Unknown Address [address] [place] [address] [phone] Phone Care Team Providers Care Stave Machine Tender Name Role Phone Blanco Gallego Attending [...] em Smoking History Never smoker (Never Smoked) 601951591 SNOMED CT Sex Female Sexual Orientation Straight or Heterosexual 13195916 SNOMED CT Gender Identity Female [id number] [address] Vital Signs Vital Sign Value Unit [place] Value [place] Unit Date/Time Recent/Initial? Code Code System Body Mass Index 21.85 kg/m2 06/07/2022 14:23 Initial 87588 -5 [facility] Body Mass Index Percentile 57 % 06/07/2022 14:23 Initial 03506 -9 [facility] Systolic Blood Pressure 118 mm[Hg] 06/07/2022 14:23 Initial 8480- 6 [facility] Diastolic Blood Pressure 72 mm[Hg] 06/07/2022 14:23 Initial 8462- 4 [facility] Body Surface Area 1.75 m2 06/07/2022 14:23 Initial 3140- 1 [facility] Height 171.450 0 cm 67.50 in 06/07/2022 14:23 Initial 8302- 2 [facility] O2 Saturation 99 % 2021 14:23 Initial 87242 -5 [facility] Pulse 107.0 /min 06/07/2022 14:23 Initial 8867- 4 [facility] Respiration 20 /min 06/07/20 14:23 Initial 9279- 1 [facility] Temperature 36.6 Antonella 97.8 F 06/07/20 14:23 Initial 8310- 5 [facility] Weight 64.23 kg 141.60 lbs 06/07/2022 14:23 Initial 00240 -7 [facility] Medications Medication Start Date End Date Route Frequency Dose Code Code System Medication Instructions Home Meds predniSONE 50MG Oral Tablet 06/07/2022 07/31/2022 By Mouth Daily 1 TABLET 063257 RxNorm 1 TABLET By Mouth Daily 30MCG-0.15MG-NA Oral Tablet 06/07/2022 09/12/2022 By Mouth Daily 1 TABLET 227796 RxNorm 1 TABLET By Mouth Daily Diflucan 150MG Oral Tablet 08/07/2022 09/12/2022 By Mouth x1 NOW 1 TABLET 461318 RxNorm 1 TABLET By Mouth x1 NOW FOR MARCH REPEAT IN 72 HOURS Radha 28 3MG-0.02MG Oral Tablet 09/12/2022 12/25/2022 By Mouth Once a day 1 TABLET RxNorm 1 TABLET By Mouth Once a day Medrol Dosepak 4MG Oral Tablet 12/25/2022 02/20/2023 By Mouth As Directed 1 PACK 342999 RxNorm 1 PACK By Mouth As Directed Methocarbamol 750MG Oral Tablet 12/25/2022 03/12/2023 By Mouth As needed every 8 hr 227983 RxNorm 1-2 TABLET By Mouth As needed every 8 hr [place]-28 30 MCG-0.15 MG; NA Oral Tablet 12/25/2022 03/12/2023 By Mouth Daily 1 TABLET 419092 RxNorm 1 TABLET By Mouth Daily Macrobid 100MG Oral Capsule 02/20/2023 03/12/2023 By mouth Twice a day 1 TABLET 558434 RxNorm 1 TABLET By mouth Twice a day X 7 DAYS Pyridium 100MG Oral Tablet 02/20/2023 03/12/2023 By mouth As needed every 8 hr 1 TABLET 4336567 RxNorm 1 TABLET By mouth As needed every 8 hr for urinary pain ZyrTEC Allergy 10MG Oral Capsule, Liquid Filled 03/12/2023 Unknown By Mouth Daily 1 CAPSULE 6038544 RxNorm 1 CAPSULE By Mouth Daily Fluticasone 0.05MG/1Actuati on Nasal [place] 03/12/2023 Unknown Nasal Daily 1 Sprays 6513047 RxNorm 1 Spr ays Nasal Daily Azithromycin 500MG Oral Tablet 06/04/2024 Unknown By Mouth x1 NOW 2 TABLET 357895 RxNorm 2 TABLET By Mouth x1 NOW [...] Status Code Code System SEASONAL ALLERGY active 139978819 SNO MED-CT FAMILY PLANNING 06/20/2020 active 038682595 SNO MED-CT BITE OF INSECT active 471371165 SNOME D-CT ES OF VAGINA 08/07/2022 active 13548713 S NOMED-CT MENORRHAGIA active 529754094 SNOMED-C T PAINFUL NECK active 02920481 SNOMED- CT ADHD OF CHILDHOOD 07/22/2019 resolved 224486047 S NOMED-CT SEASONAL NASAL ALLERGY 07/22/2019 resolved 409598 001 SNOMED-CT HISTORY OF CHICKENPOX 07/22/2019 resolved 4769840 08 SNOMED-CT Allergies and Adverse Reactions Allergy Substance Reaction Severity Start Date Concern Status Co de Code System Active seasonal allergies Active No Known Drug Allergies Active 138385276 SNOMED-CT No Known Drug Allergies Active 064197681 SNOMED-CT Plan of Treatment Description Due Date Details Instructions DEPRESSION SCREENING DUE 06/20/2021 Encounters Encounter Diagnosis Start Date Code Code Sys tem Well child visit 06/07/2022 694740879 SNOMED-CT Personal Care Team Section Performer Name Performer Role Active Date Inactive Da te Progress Notes [facility] 06/07/2022 15:22 All Demographics Patient Name Age Sex Visit Number Admission Date/Time Attending Physician Date of Service Room and Bed Emergency Contact NELA MANZANARES 2005 16 years Female [id number] 06/07/2022 14:22 Julián Simeon 06/07/2022 402 06/07/2022 14:25 Accompanied By: Parent Parent, mother X. Parent, father Guardian Relative manager student services Caregiver Family Protective services Friend Healthcare provider Law enforcement Pipeline Operator / EMS Spouse / SO Other: Preferred [...] environment active No Known Drug Allergies medication [id number] Nutrition X. Daily fruits and vegetables Iron [...] CAPITALIZED = Focus area for this [facility] Visit Constitutional: None. EYES: None. Head, EARS, NOSE, AND THROAT: None. CARDIOVASCULAR: None. RESPIRATORY: None. GASTROINTESTINAL: None. GENITOURINARY: None. MUSCULOSKELETAL: None. SKIN: None. NEUROLOGICAL: None. Other: None. PHYSICAL EXAMINATION ALL CAPITALIZED and = Focus Area for this [facility] Visit GENERAL: x Well-appearing adolescent x Normal [...] Record reviewed Up-to-date for age Administered Today: [place] Screening Depression Screening (annually) Screening Tool Used: [...] year Next Visit: Referral to: 16 y/o [facility] - Anticipatory guidance and bright futures discussed. Discussed control methods and will start patient on [place]. Patient to notify office if she is having any side effects. Patient states she is having anxiety, offered multiple options for managing anxiety, patient declines at this time.
--- OUTSIDE RECORDS SUMMARY | 2025-01-31 03:03 | XMS_ITS ---
Author Organization Unknown Address [address] [place] [address] [phone] Phone Care Team Providers Care Ride Mechanic Name Role Phone ATIYA Lezama MD Attending [...] em Smoking History Never smoker (Never Smoked) 715557557 SNOMED CT Sex Female Sexual Orientation Straight or Heterosexual 90550242 SNOMED CT Gender Identity Female [id number] [address] Vital Signs Vital Sign Value Unit [place] Value [place] Unit Date/Time Recent/Initial? Code Code System Body Mass Index 22.93 kg/m2 09/12/2022 17:59 Initial 23105 -5 [facility] Body Mass Index Percentile 67 % 09/12/2022 17:59 Initial 56104 -9 [facility] Systolic Blood Pressure 100 mm[Hg] 09/12/2022 17:59 Initial 8480- 6 [facility] Diastolic Blood Pressure 70 mm[Hg] 09/12/2022 17:59 Initial 8462- 4 [facility] Body Surface Area 1.81 m2 09/12/2022 17:59 Initial 3140- 1 [facility] Height 172.720 0 cm 68.00 in 09/12/2022 17:59 Initial 8302- 2 [facility] O2 Saturation 99 % 2021 17:59 Initial 86220 -5 [facility] Pulse 95.0 /min 09/12/2022 17:59 Initial 8867- 4 [facility] Respiration 18 /min 09/12/20 17:59 Initial 9279- 1 [facility] Temperature 36.9 Antonella 98.4 F 09/12/20 17:59 Initial 8310- 5 [facility] Weight 68.40 kg 150.80 lbs 09/12/2022 17:59 Initial 13574 -7 [facility] Medications Medication Start Date End Date Route Frequency Dose Code Code System Medication Instructions Home Meds Anel-28 30MCG-0.15MG-NA Oral Tablet 06/07/2022 09/12/2022 By Mouth Daily 1 TABLET 862227 RxNorm 1 TABLET By Mouth Daily Diflucan 150MG Oral Tablet 08/07/2022 09/12/2022 By Mouth x1 NOW 1 TABLET 750516 RxNorm 1 TABLET By Mouth x1 NOW FOR MARCH REPEAT IN 72 HOURS Radha 28 3MG-0.02MG Oral Tablet 09/12/2022 12/25/2022 By Mouth Once a day 1 TABLET RxNorm 1 TABLET By Mouth Once a day Medrol Dosepak 4MG Oral Tablet 12/25/2022 02/20/2023 By Mouth As Directed 1 PACK 096202 RxNorm 1 PACK By Mouth As Directed Methocarbamol 750MG Oral Tablet 12/25/2022 03/12/2023 By Mouth As needed every 8 hr 998944 RxNorm 1-2 TABLET By Mouth As needed every 8 hr [place]-28 30 MCG-0.15 MG; NA Oral Tablet 12/25/2022 03/12/2023 By Mouth Daily 1 TABLET 166733 RxNorm 1 TABLET By Mouth Daily Macrobid 100MG Oral Capsule 02/20/2023 03/12/2023 By mouth Twice a day 1 TABLET 062423 RxNorm 1 TABLET By mouth Twice a day X 7 DAYS Pyridium 100MG Oral Tablet 02/20/2023 03/12/2023 By mouth As needed every 8 hr 1 TABLET 2129279 RxNorm 1 TABLET By mouth As needed every 8 hr for urinary pain ZyrTEC Allergy 10MG Oral Capsule, Liquid Filled 03/12/2023 Unknown By Mouth Daily 1 CAPSULE 7914693 RxNorm 1 CAPSULE By Mouth Daily Fluticasone 0.05MG/1Actuatio n Nasal [place] 03/12/2023 Unknown Nasal Daily 1 Sprays 8071172 RxNorm 1 Spra ys Nasal Daily Azithromycin 500MG Oral Tablet 06/04/2024 Unknown By Mouth x1 NOW 2 TABLET 419487 RxNorm 2 TABLET By Mouth x1 NOW Assessment You had the following problems:SEASONAL ALLERGYFAMILY PLANNINGBITE OF INSECTCANDIDA OF VAGINAMENORRHAGIAPAINFUL NECK Assessment/Plan: 1) Menorrhagia: Will check TSH, T4, CBC, PT/INR, and CMP. Will discontinue the Anel and start her on Radha 1 tablet daily. 2) Contraceptive management: Patient is currently on [place] but this is not managing her periods [...] Status Code Code System SEASONAL ALLERGY active 716144784 SNO MED-CT FAMILY PLANNING 06/20/2020 active 686537916 SNO MED-CT BITE OF INSECT active 150553628 SNOME D-CT ES OF VAGINA 08/07/2022 active 16209317 S NOMED-CT MENORRHAGIA active 334884347 SNOMED-C T PAINFUL NECK active 40894319 SNOMED- CT ADHD OF CHILDHOOD 07/22/2019 resolved 335328501 S NOMED-CT SEASONAL NASAL ALLERGY 07/22/2019 resolved 696205 001 SNOMED-CT HISTORY OF CHICKENPOX 07/22/2019 resolved 4352696 08 SNOMED-CT Allergies and Adverse Reactions Allergy Substance Reaction Severity Start Date Concern Status Co de Code System Active seasonal allergies Active No Known Drug Allergies Active 130254034 SNOMED-CT No Known Drug Allergies Active 050501102 SNOMED-CT Plan of Treatment Description Due Date Details Instructions DEPRESSION SCREENING DUE 06/20/2021 Future Order Description Future Order Date Futu re Order Loinc: TSH 09/12/2022 LOINC: 95285-7 FREE T4 09/12/2022 LOINC: 3024-7 CBC W DIFF 09/12/2022 LOINC: 10070-8 COMPREHENSIVE METABOLIC PANEL 09/12/2022 L OINC: 04694-5 PT (PROTIME) 09/12/2022 LOINC: 6301-6 Encounters Encounter Diagnosis Start Date Code Code Sys tem Excessive and frequent menstruation 09/12/2022 63221 1003 SNOMED-CT Personal Care Team Section Performer Name Performer Role Active Date Inactive Da te Progress Notes [facility] 09/13/2022 09:49 Admission Date/Time: 09/12/2022 13:21 Rachael Andersen MD Clinic Visit Note Chief Complaint: DISCUSS BC Has the patient received a COVID Vaccine? Yes Nurse Note: this nurse note is documented by Opal Ly CMA 17 yr old female present to [facility] today to discuss BC History of Present Illness: An 17-year-old presents to [facility] today to discuss BC. Patient states [...] CBC, PT/INR, and CMP. Will discontinue the [place] and start her on Radha 1 tablet daily. 2) Contraceptive management: Patient is currently on [place] but this is not managing her periods [...] records Referring and communicating with other health rn wound care Obtaining and/or reviewing separately obtained history Independent [...]
--- OUTSIDE RECORDS SUMMARY | 2025-01-31 03:03 | XMS_ITS ---
Author Organization Unknown Address [address] [place] [address] [phone] Phone Care Team Providers Care Drafter Castings Name Role Phone Blanco Gallego Attending Unavailable [...] em Smoking History Never smoker (Never Smoked) 906938833 SNOMED CT Sex Female Sexual Orientation Straight or Heterosexual 55327184 SNOMED CT Gender Identity Female 43644553832305 [address] Medications Medication Start Date End Date Route Frequency Dose Code Code System Medication Instructions Home Meds Medrol Dosepak 4MG Oral Tablet 12/25/2022 02/20/2023 By Mouth As Directed 1 PACK 551140 RxNorm 1 PACK By Mouth As Directed Methocarbamol 750MG Oral Tablet 12/25/2022 03/12/2023 By Mouth As needed every 8 hr 153974 RxNorm 1-2 TABLET By Mouth As needed every 8 hr [place]-28 30 MCG-0.15 MG; NA Oral Tablet 12/25/2022 03/12/2023 By Mouth Daily 1 TABLET 664644 RxNorm 1 TABLET By Mouth Daily Macrobid 100MG Oral Capsule 02/20/2023 03/12/2023 By mouth Twice a day 1 TABLET 365139 RxNorm 1 TABLET By mouth Twice a day X 7 DAYS Pyridium 100MG Oral Tablet 02/20/2023 03/12/2023 By mouth As needed every 8 hr 1 TABLET 7247483 RxNorm 1 TABLET By mouth As needed every 8 hr for urinary pain ZyrTEC Allergy 10MG Oral Capsule, Liquid Filled 03/12/2023 Unknown By Mouth Daily 1 CAPSULE 6653875 RxNorm 1 CAPSULE By Mouth Daily Fluticasone 0.05MG/1Actuati on Nasal [place] 03/12/2023 Unknown Nasal Daily 1 Sprays 5945887 RxNorm 1 Spr ays Nasal Daily Azithromycin 500MG Oral Tablet 06/04/2024 Unknown By Mouth x1 NOW 2 TABLET 471434 RxNorm 2 TABLET By Mouth x1 NOW [...] Status Code Code System SEASONAL ALLERGY active 526969990 SNO MED-CT FAMILY PLANNING 06/20/2020 active 746110368 SNO MED-CT BITE OF INSECT active 945382517 SNOME D-CT ES OF VAGINA 08/07/2022 active 11334896 S NOMED-CT MENORRHAGIA active 576024434 SNOMED-C T PAINFUL NECK active 08518523 SNOMED- CT ADHD OF CHILDHOOD 07/22/2019 resolved 509246277 S NOMED-CT SEASONAL NASAL ALLERGY 07/22/2019 resolved 254764 001 SNOMED-CT HISTORY OF CHICKENPOX 07/22/2019 resolved 0013330 08 SNOMED-CT Allergies and Adverse Reactions Allergy Substance Reaction Severity Start Date Concern Status Co de Code System Active seasonal allergies Active No Known Drug Allergies Active 453981025 SNOMED-CT No Known Drug Allergies Active 899201771 SNOMED-CT Plan of Treatment Description Due Date Details Instructions DEPRESSION SCREENING DUE 06/20/2021 Personal Care Team Section Performer Name Performer Role Active Date Inactive David mccallum
[2025-01-31 03:04] LABS: BEDSIDEPREGUCG Negative (Negative)
--- OUTSIDE RECORDS SUMMARY | 2025-01-31 03:04 | XMS_ITS ---
Author Organization Unknown Address [address] [place] [address] [phone] Phone Care Team Providers Care Loss Prevention Detective Name Role Phone VIRAL Brody Attending Unavailable [...] MICR O - Collect Date/Time: 06/03/2024 15:21 [facility] ID: [id number] [address] [place] [address], [id number] LOINC: Test Value Unit Reference Range Code [...] em Smoking History Never smoker (Never Smoked) 370074551 SNOMED CT Sex Female Sexual Orientation Straight or Heterosexual 05142882 SNOMED CT Gender Identity Female 18845222099950 [address] Vital Signs Vital Sign Value Unit [place] Value [place] Unit Date/Time Recent/Initial? Code Code System Body Mass Index 25.85 kg/m2 06/03/2024 14:31 Initial 76259 -5 [facility] Body Mass Index Percentile 82 % 06/03/2024 14:31 Initial 58147 -9 LOINC Systolic Blood Pressure 118 mm[Hg] [...] 68.00 in 06/03/2024 14:31 Initial 8302- 2 [facility] O2 Saturation 100 % 2023 14:31 Initial 12126 -5 [facility] Pulse 93.0 /min 06/03/2024 14:31 Initial 8867- 4 [facility] Temperature 36.7 Antonella 98.0 F 06/03/20 14:31 Initial 8310- 5 [facility] Weight 77.11 kg 170.00 lbs 06/03/2024 14:31 Initial 72412 -7 [facility] Medications Medication Start Date End Date Route Frequency Dose Code Code System Medication Instructions Home Meds ZyrTEC Allergy 10MG Oral Capsule, Liquid Filled 03/12/2023 Unknown By Mouth Daily 1 CAPSULE 9773551 RxNorm 1 CAPSULE By Mouth Daily Fluticasone 0.05MG/1Actuatio n Nasal [place] 03/12/2023 Unknown Nasal Daily 1 Sprays 1881504 RxNorm 1 Spra ys Nasal Daily Azithromycin 500MG Oral Tablet 06/04/2024 Unknown By Mouth x1 NOW 2 TABLET 387197 RxNorm 2 TABLET By Mouth x1 NOW [...] sex practices. 3. -Keep follow up with [facility] for next week. -Given handouts for [...] up. This examination was transcribed using the [employer] voice recognition system without a human developmental writing instructor. To expedite patient care, this report has not been adjusted for typographical, or medical, or syntax by a trained medical appointment clerk. Hospital Discharge Instructions Should you have any questions prior to discharge, please contact a member of your healthcare team. If you have left the hospital and have any questions, please contact your primary care physician. Reason For Referral No Data Found Problems Problem Start Date Resolved Date Status Code Code System SEASONAL ALLERGY active 567156882 SNO MED-CT FAMILY PLANNING 06/20/2020 active 802194047 SNO MED-CT BITE OF INSECT active 073149396 SNOME D-CT ES OF VAGINA 08/07/2022 active 47294764 S NOMED-CT MENORRHAGIA active 796730449 SNOMED-C T PAINFUL NECK active 65228265 SNOMED- CT ADHD OF CHILDHOOD 07/22/2019 resolved 872128265 S NOMED-CT SEASONAL NASAL ALLERGY 07/22/2019 resolved 238587 001 SNOMED-CT HISTORY OF CHICKENPOX 07/22/2019 resolved 0206163 08 SNOMED-CT Allergies and Adverse Reactions Allergy Substance Reaction Severity Start Date Concern Status Co de Code System Active seasonal allergies Active No Known Drug Allergies Active 956592873 SNOMED-CT No Known Drug Allergies Active 135161635 SNOMED-CT Plan of Treatment Description Due Date Details Instructions DEPRESSION SCREENING DUE 06/20/2021 Future Order Description Future Order Date Futu re Order Loinc: TRICHOMONAS VAGINALIS FEMALE RNA QUAL LOINC: 98747-4 [facility] 06/03/2024 LOINC: 95741-8 CHLAMYDIA [facility] 06/03/2024 LOINC: 55278- 5 BACTERIAL VAGINOSIS RAPID TEST 06/03/2024 LOINC: 6410-5 CULTURE YEAST, WITH IDENTIFICATION 06/03/2024 LOINC: 18435-2 Encounters Encounter Diagnosis Start Date Code Code Sys tem Acute vaginitis 06/03/2024 40115468 SNOMED-CT Personal Care Team Section Performer Name Performer Role Active Date Inactive Da te Progress Notes [facility] 06/03/2024 15:50 Date of Service: 06/03/2024 Convenient [...] April. She has an appointment scheduled with [facility] for an OBGYN next week. She denies [...] sex practices. 3. -Keep follow up with [facility] for next week. -Given handouts for [...] up. This examination was transcribed using the [employer] voice recognition system without a human developmental writing instructor. To expedite patient care, this report has not been adjusted for typographical, or medical, or syntax by a trained medical appointment clerk. Meds Given This Visit: Meds ordered and administered this visit: No Current Medications Available Discharge Med List: Discharge Medications Medication Special Instructions Start Date Prescribing Fluticasone 0.05MG/1Actuation Nasal [place] 1 Sprays Nasal Daily 03/12/2023 Blanco Gallego ZyrTEC Allergy 10MG Oral Capsule, Liquid Filled 1 CAPSULE By Mouth Daily 03/12/2023 Blanco Gallego
--- OUTSIDE RECORDS SUMMARY | 2025-01-31 03:04 | XMS_ITS ---
Author Organization Unknown Address [address] [place] [address] [phone] Phone Care Team Providers Care Email Marketing Assistant Name Role Phone Blanco Gallego Attending Unavailable [...] ANTIGEN - Collec t Date/Time: 03/12/2023 14:51 [facility] ID: [id number] [address] [place], [place], [id number] LOINC: 6556-5 Test Value Unit Reference Range Code Code System Flag COVID RAPID ANTI NEGATIVE NORMAL: NEGATIVE LOT#: [id number] Exp Date: 12/07/2023 QC: ACCEPTABLE STREP A SCREEN - Collect Sha e/Time: 03/12/2023 14:50 [facility] ID: [id number] [address], [place], [phone] LOINC: 6556-5 Test Value Unit Reference Range Code Code System Flag STREP SCREEN NEGATIVE NORMAL: NEGATIVE 6556-5 LOINC Lot#: [id number] Exp Date: 04/10/2024 QC STREP ACCEPTABLE Social History Type Status Start Date End Date Code Code Syst em Smoking History Never smoker (Never Smoked) 788312960 SNOMED CT Sex Female Sexual Orientation Straight or Heterosexual 14202996 SNOMED CT Gender Identity Female 67685625050338 [address] Vital Signs Vital Sign Value Unit [place] Value [place] Unit Date/Time Recent/Initial? Code Code System Body Mass Index 23.57 kg/m2 03/12/2023 14:40 Initial 80252 -5 [facility] Body Mass Index Percentile 71 % 03/12/2023 14:40 Initial 93138 -9 [facility] Systolic Blood Pressure 100 mm[Hg] 03/12/2023 14:40 Initial 8480- 6 [facility] Diastolic Blood Pressure 68 mm[Hg] 03/12/2023 14:40 Initial 8462- 4 [facility] Body Surface Area 1.84 m2 03/12/2023 14:40 Initial 3140- 1 [facility] Height 172.720 0 cm 68.00 in 03/12/2023 14:40 Initial 8302- 2 [facility] O2 Saturation 95 % 2022 14:40 Initial 30556 -5 [facility] Pulse 56.0 /min 03/12/2023 14:40 Initial 8867- 4 [facility] Respiration 16 /min 03/12/20 14:40 Initial 9279- 1 [facility] Temperature 37.5 Antonella 99.5 F 03/12/20 14:40 Initial 8310- 5 [facility] Weight 70.31 kg 155.00 lbs 03/12/2023 14:40 Initial 64581 -7 [facility] Medications Medication Start Date End Date Route Frequency Dose Code Code System Medication Instructions Home Meds Methocarbamol 750MG Oral Tablet 12/25/2022 03/12/2023 By Mouth As needed every 8 hr 506156 RxNorm 1-2 TABLET By Mouth As needed every 8 hr [place]-28 30 MCG-0.15 MG; NA Oral Tablet 12/25/2022 03/12/2023 By Mouth Daily 1 TABLET 966044 RxNorm 1 TABLET By Mouth Daily Macrobid 100MG Oral Capsule 02/20/2023 03/12/2023 By mouth Twice a day 1 TABLET 277733 RxNorm 1 TABLET By mouth Twice a day X 7 DAYS Pyridium 100MG Oral Tablet 02/20/2023 03/12/2023 By mouth As needed every 8 hr 1 TABLET 3733892 RxNorm 1 TABLET By mouth As needed every 8 hr for urinary pain ZyrTEC Allergy 10MG Oral Capsule, Liquid Filled 03/12/2023 Unknown By Mouth Daily 1 CAPSULE 5639901 RxNorm 1 CAPSULE By Mouth Daily Fluticasone 0.05MG/1Actuati on Nasal [place] 03/12/2023 Unknown Nasal Daily 1 Sprays 4496925 RxNorm 1 Spr ays Nasal Daily Azithromycin 500MG Oral Tablet 06/04/2024 Unknown By Mouth x1 NOW 2 TABLET 475913 RxNorm 2 TABLET By Mouth x1 NOW [...] Status Code Code System SEASONAL ALLERGY active 180694444 SNO MED-CT FAMILY PLANNING 06/20/2020 active 456312822 SNO MED-CT BITE OF INSECT active 433186300 SNOME D-CT ES OF VAGINA 08/07/2022 active 92351112 S NOMED-CT MENORRHAGIA active 093469411 SNOMED-C T PAINFUL NECK active 54523487 SNOMED- CT ADHD OF CHILDHOOD 07/22/2019 resolved 396558571 S NOMED-CT SEASONAL NASAL ALLERGY 07/22/2019 resolved 602599 001 SNOMED-CT HISTORY OF CH[place]PO[place] 07/22/2019 resolved 4264160 08 SNOMED-CT Allergies and Adverse Reactions Allergy Substance Reaction Severity Start Date Concern Status Co de Code System Active seasonal allergies Active No Known Drug Allergies Active 610894759 SNOMED-CT No Known Drug Allergies Active 764092950 SNOMED-CT Plan of Treatment Description Due Date Details Instructions DEPRESSION SCREENING DUE 06/20/2021 Encounters Encounter Diagnosis Start Date Code Code Sys tem Seasonal allergic rhinitis 03/12/2023 013289099 S NOMED-CT Personal Care Team Section Performer Name Performer Role Active Date Inactive Da te Progress Notes [facility] 03/12/2023 15:06 Admission Date/Time: 03/12/2023 11:24 [...] records Referring and communicating with other health healthcare project manager x Obtaining and/or reviewing separately obtained history Independent interpretation of results and communicating results to the patient/family/caregiver x Performing a medically appropriate examination/evaluation Care coordination (not reported separately) x Discharge instructions given to patient. Ordered & Completed Meds Table: No Current Medications Available Discharge Med List: Discharge Medications: No Discharge Medications Available [facility] 03/12/2023 15:20 Current Date/Time: 03/12/2023 15:03 Patient Name: NELA MANZANARES was seen at [facility] [phone] on Date of Service: 03/12/2023 . They may return to school on 03/13/2023 with No restrictions . .
--- OUTSIDE RECORDS SUMMARY | 2025-01-31 03:04 | XMS_ITS | Clinical Summary ---
Author Organization [facility] Address [address] [facility] [place] [address] Care Team Providers Care Bun Icer Name Role Phone Faustino Matta MD Primary Care Provider [phone] Source Comments [facility],non-owned Affiliates and Associated Physician Practices is amultiple site organization consisting of ambulatory clinics and hospital sitesin [place], [place], [place] and [place]. This disclosure is being madepursuant to the Care Everywhere program and may not contain all information available regarding this patient. Last updated 18.[facility] Allergies No known active allergies [...] Type Department Care Team Description 12/15/2024 Telephone [facility] [address] [place] [address] Akosua Burns Appointment 11/24/2024 Orders Only [facility] - CASHIER AND WAITER/WAITRESS [address] [place] [address] Jennifer Paul MD 11/19/2024 1:00 PM MEN'S CUSTOM HAIR PIECE CONSULTANT - 11/19/2024 11:59 PM MEN'S CUSTOM HAIR PIECE CONSULTANT Hospital Encounter [facility] [address] [place] [address] Tiff Arriaza MD Discharge Disposition: Home or Self Care 11/03/2024 Orders Only [facility] [address] [place] [address] Britany Garcia, FLYER REPAIRER-OUTSIDE SALES INSPECTOR Abnormal genetic test in ; Abnormal ultrasound 11/02/2024 Orders Only [facility] [address] [place] [address] Shania Mcintosh RN 11/02/2024 Telephone [facility] [address] [place] [address] Britany Garcia, FLYER REPAIRER-OUTSIDE SALES INSPECTOR LABS ONLY from Last 3 Months Family [...] CYTOMEGALOVIRUS AB IGG AVIDITY 11/24/2024 2:44 PM MEN'S CUSTOM HAIR PIECE CONSULTANT SONOGRAM - COMPLETE Routine 11/19/2024 1 :11 PM MEN'S CUSTOM HAIR PIECE CONSULTANT Encounter for ultrasound Rh negative, antepartum Rubella non-immune status, antepartum Primigravida, antepartum 28 weeks gestation of Genetic anomalies of leukocytes Abnormal genetic test in CYTOMEGALOVIRUS ANTIBODY IGG BLOOD 11/10/2024 1:50 PM MEN'S CUSTOM HAIR PIECE CONSULTANT from Last 3 Months Results * CYTOMEGALOVIRUS AB IGG AVIDITY (11/24/2024 2:44 PM MEN'S CUSTOM HAIR PIECE CONSULTANT) Pathologist [facility] Cytomegalovirus Antibody IgG Avidity Index 0.90 [...] analytical performance characteristics have been determined by [employer]. It has not been cleared or approved by FDA. This assay has been validated pursuant to the CLIA regulations and is used for clinical purposes. For additional information, please refer to http://education.[employer]/faq/NXD366 (This link is being provided for informational/ educational purposes only.) Test Performed at: [facility] [address] [place] [address] KWAKU SUMMERS MD,PHD,STARR 11/24/2024 2:44 PM MEN'S CUSTOM HAIR PIECE CONSULTANT 11/24/2024 2:45 PM MEN'S CUSTOM HAIR PIECE CONSULTANT Jennifer Paul MD LAB - SEROLOGY [facility] GONZ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 [...] 3 lb 8 oz EFW by Hadlock ([id number]) appropriate Growth Overview Exam date [place] BPD [...] redraw of CMV Avidity Coding ====== Procedures [address]0688: US Preg Uterus Follow Up [facility] PACS Anatomical Region Laterality Modality Other 11/19/2024 1:11 PM MEN'S CUSTOM HAIR PIECE CONSULTANT Jonny Cabrera DO [facility] ORDERABLES * (ABNORMAL) CYTOMEGALOVIRUS ANTIBODY IGG BLOOD (11/10/2024 1:50 PM MEN'S CUSTOM HAIR PIECE CONSULTANT) Cytomegalovirus Antibody IgG >10.00(H) U/mL [facility] Comment: U/mL Interpretation ----- <0.60 Negative 0.60-0.69 Equivocal > or = 0.70 Positive A positive result indicates that the patient has antibody to CMV. It does not differentiate between an active or past infection. Test Performed at: [facility] [id number] [place] [address] PINEDA TAM MD 11/10/2024 1:50 PM MEN'S CUSTOM HAIR PIECE CONSULTANT 11/10/2024 1:53 PM MEN'S CUSTOM HAIR PIECE CONSULTANT Britany Garcia FLYER REPAIRER-OUTSIDE SALES INSPECTOR LAB - CHEMI STRY ORDERABLES [facility] [address] [place] [address] from Last 3 Months Care Teams Bun Icer Relationship Specialty Start Date End Date Faustino Matta MD [address] [address] PCP - General Pediatrics 08/05/12
--- OUTSIDE RECORDS SUMMARY | 2025-01-31 03:04 | XMS_ITS ---
Author Organization Unknown Address [address], [place] [phone] Phone Care Team Providers Care Email Marketing Intern Name Role Phone JOSUE FULTON EDMOND Attending Unavailable Results CULTURE YEAST, WITH IDENTIFI CATION - Collect Date/Time: 02/20/2023 18:42 [facility] ID: [id number] [address] [place], [place], [id number] LOINC: 5048-4 Test Value Unit Reference Range Code Code System Flag SOURCE: VAGINAL STATUS: FINAL ISOLATE 1: Margoth albicans A TRICHOMONAS VAGINALIS FEMALE RNA QUAL - Collect Date/Time: 02/20/2023 18:40 [facility] ID: [id number] [address] [place] [place], [place], [address] LOINC: 72365-8 Test Value Unit Reference Range Code Code System Flag TRICHOMONAS VAGINALISRNA, QL TMA NOT DETECTED NOT DETECTED GC/CHLAMYDIA PCR [facility] ct Date/Time: 02/20/2023 18:40 [facility] ID: [id number] [address] [place] [place], [place], [address] LOINC: 5048-4 Test Value Unit Reference Range Code Code System Flag GONORRHEA PCR NOT DETECTED NORMAL: NOT DETECTED CHLAMYDIA PCR NOT DETECTED NORMAL: NOT DETECTED BACTERIAL VAGINOSIS RAPID TE ST - Collect Date/Time: 02/20/2023 18:40 [facility] ID: [id number] [address] [place] [place], [place], [address] LOINC: 6410-5 Test Value Unit Reference Range Code Code System Flag BACTERIAL VAGINOSIS NEGATIVE NORMAL: NEGATIVE Social History Type Status Start Date End Date Code Code Syst em Smoking History Never smoker (Never Smoked) 732732975 SNOMED CT Sex Female Sexual Orientation Straight or Heterosexual 17601402 SNOMED CT Gender Identity Female [id number] [address] Medications Medication Start Date End Date Route Frequency Dose Code Code System Medication Instructions Home Meds Methocarbamol 750MG Oral Tablet 12/25/2022 03/12/2023 By Mouth As needed every 8 hr 603438 RxNorm 1-2 TABLET By Mouth As needed every 8 hr [place]-28 30 MCG-0.15 MG; NA Oral Tablet 12/25/2022 03/12/2023 By Mouth Daily 1 TABLET 437075 RxNorm 1 TABLET By Mouth Daily Macrobid 100MG Oral Capsule 02/20/2023 03/12/2023 By mouth Twice a day 1 TABLET 498440 RxNorm 1 TABLET By mouth Twice a day X 7 DAYS Pyridium 100MG Oral Tablet 02/20/2023 03/12/2023 By mouth As needed every 8 hr 1 TABLET 3783020 RxNorm 1 TABLET By mouth As needed every 8 hr for urinary pain ZyrTEC Allergy 10MG Oral Capsule, Liquid Filled 03/12/2023 Unknown By Mouth Daily 1 CAPSULE 1553250 RxNorm 1 CAPSULE By Mouth Daily Fluticasone 0.05MG/1Actuati on Nasal [place] 03/12/2023 Unknown Nasal Daily 1 Sprays 5355513 RxNorm 1 Spr ays Nasal Daily Azithromycin 500MG Oral Tablet 06/04/2024 Unknown By Mouth x1 NOW 2 TABLET 894447 RxNorm 2 TABLET By Mouth x1 NOW [...] Status Code Code System SEASONAL ALLERGY active 641603554 SNO MED-CT FAMILY PLANNING 06/20/2020 active 419618331 SNO MED-CT BITE OF INSECT active 026876896 SNOME D-CT MARGOTH OF VAGINA 08/07/2022 active 26254945 S NOMED-CT MENORRHAGIA active 242267114 SNOMED-C T PAINFUL NECK active 82245207 SNOMED- CT ADHD OF CHILDHOOD 07/22/2019 resolved 433579813 S NOMED-CT SEASONAL NASAL ALLERGY 07/22/2019 resolved 182966 001 SNOMED-CT HISTORY OF CHICKENPOX 07/22/2019 resolved 8790806 08 SNOMED-CT Allergies and Adverse Reactions Allergy Substance Reaction Severity Start Date Concern Status Co de Code System Active seasonal allergies Active No Known Drug Allergies Active 139708756 SNOMED-CT No Known Drug Allergies Active 248789425 SNOMED-CT Plan of Treatment Description Due Date Details Instructions DEPRESSION SCREENING DUE 06/20/2021 Encounters Encounter Diagnosis Start Date Code Code Sys tem Dysuria 02/20/2023 36991174 SNOMED-CT Personal Care Team Section Performer Name Performer Role Active Date Inactive Da xena
--- OUTSIDE RECORDS SUMMARY | 2025-01-31 03:05 | XMS_ITS ---
Author Organization Unknown Address [address] [place] [phone] Phone Care Team Providers Care Maintenance Mechanic 2Nd Shift Name Role Phone TABATHA RODGERS Attending Unavailable [...] em Smoking History Never smoker (Never Smoked) 159993440 SNOMED CT Sex Female Sexual Orientation Straight or Heterosexual 69107209 SNOMED CT Gender Identity Female [id number] Medications Medication Start Date End Date Route Frequency Dose Code Code System Medication Instructions Home Meds predniSONE 50MG Oral Tablet 06/07/2022 07/31/2022 By Mouth Daily 1 TABLET 495971 RxNorm 1 TABLET By Mouth Daily [place]-28 30MCG-0.15MG-NA Oral Tablet 06/07/2022 09/12/2022 By Mouth Daily 1 TABLET 438925 RxNorm 1 TABLET By Mouth Daily Diflucan 150MG Oral Tablet 08/07/2022 09/12/2022 By Mouth x1 NOW 1 TABLET 808995 RxNorm 1 TABLET By Mouth x1 NOW FOR MARCH REPEAT IN 72 HOURS Radha 28 3MG-0.02MG Oral Tablet 09/12/2022 12/25/2022 By Mouth Once a day 1 TABLET RxNorm 1 TABLET By Mouth Once a day Medrol Dosepak 4MG Oral Tablet 12/25/2022 02/20/2023 By Mouth As Directed 1 PACK 746925 RxNorm 1 PACK By Mouth As Directed Methocarbamol 750MG Oral Tablet 12/25/2022 03/12/2023 By Mouth As needed every 8 hr 586658 RxNorm 1-2 TABLET By Mouth As needed every 8 hr [place]el-28 30 MCG-0.15 MG; NA Oral Tablet 12/25/2022 03/12/2023 By Mouth Daily 1 TABLET 180552 RxNorm 1 TABLET By Mouth Daily Macrobid 100MG Oral Capsule 02/20/2023 03/12/2023 By mouth Twice a day 1 TABLET 683521 RxNorm 1 TABLET By mouth Twice a day X 7 DAYS Pyridium 100MG Oral Tablet 02/20/2023 03/12/2023 By mouth As needed every 8 hr 1 TABLET 8903349 RxNorm 1 TABLET By mouth As needed every 8 hr for urinary pain ZyrTEC Allergy 10MG Oral Capsule, Liquid Filled 03/12/2023 Unknown By Mouth Daily 1 CAPSULE 5722587 RxNorm 1 CAPSULE By Mouth Daily Fluticasone 0.05MG/1Actuati on Nasal [place] 03/12/2023 Unknown Nasal Daily 1 Sprays 7745432 RxNorm 1 Spr ays Nasal Daily Azithromycin 500MG Oral Tablet 06/04/2024 Unknown By Mouth x1 NOW 2 TABLET 587465 RxNorm 2 TABLET By Mouth x1 NOW [...] Status Code Code System SEASONAL ALLERGY active 481990707 SNO MED-CT FAMILY PLANNING 06/20/2020 active 495025149 SNO MED-CT BITE OF INSECT active 856739879 SNOME D-CT ES OF VAGINA 08/07/2022 active 84980536 S NOMED-CT MENORRHAGIA active 838467726 SNOMED-C T PAINFUL NECK active 80792446 SNOMED- CT ADHD OF CHILDHOOD 07/22/2019 resolved 066688323 S NOMED-CT SEASONAL NASAL ALLERGY 07/22/2019 resolved 874842 001 SNOMED-CT HISTORY OF CHICKENPOX 07/22/2019 resolved 8236414 08 SNOMED-CT Allergies and Adverse Reactions Allergy Substance Reaction Severity Start Date Concern Status Co de Code System Active seasonal allergies Active No Known Drug Allergies Active 617808173 SNOMED-CT No Known Drug Allergies Active 268142237 SNOMED-CT Plan of Treatment Description Due Date Details Instructions DEPRESSION SCREENING DUE 06/20/2021 Personal Care Team Section Performer Name Performer Role Active Date Inactive David mccallum
--- OUTSIDE RECORDS SUMMARY | 2025-01-31 03:05 | XMS_ITS ---
Author Organization Unknown Address [address] [place] [phone] Phone Care Team Providers Care Supervisor [employer] Name Role Phone ATIYA Lezama MD Attending [...] em Smoking History Never smoker (Never Smoked) 052816400 SNOMED CT Sex Female Sexual Orientation Straight or Heterosexual 75815647 SNOMED CT Gender Identity Female [id number] [address] Medications Medication Start Date End Date Route Frequency Dose Code Code System Medication Instructions Home Meds Radha 28 3MG-0.02MG Oral Tablet 09/12/2022 12/25/2022 By Mouth Once a day 1 TABLET RxNorm 1 TABLET By Mouth Once a day Medrol Dosepak 4MG Oral Tablet 12/25/2022 02/20/2023 By Mouth As Directed 1 PACK 304528 RxNorm 1 PACK By Mouth As Directed Methocarbamol 750MG Oral Tablet 12/25/2022 03/12/2023 By Mouth As needed every 8 hr 998861 RxNorm 1-2 TABLET By Mouth As needed every 8 hr [place]-28 30 MCG-0.15 MG; NA Oral Tablet 12/25/2022 03/12/2023 By Mouth Daily 1 TABLET 080341 RxNorm 1 TABLET By Mouth Daily Macrobid 100MG Oral Capsule 02/20/2023 03/12/2023 By mouth Twice a day 1 TABLET 454162 RxNorm 1 TABLET By mouth Twice a day X 7 DAYS Pyridium 100MG Oral Tablet 02/20/2023 03/12/2023 By mouth As needed every 8 hr 1 TABLET 3790038 RxNorm 1 TABLET By mouth As needed every 8 hr for urinary pain ZyrTEC Allergy 10MG Oral Capsule, Liquid Filled 03/12/2023 Unknown By Mouth Daily 1 CAPSULE 3879511 RxNorm 1 CAPSULE By Mouth Daily Fluticasone 0.05MG/1Actuati on Nasal [place] 03/12/2023 Unknown Nasal Daily 1 Sprays 8164934 RxNorm 1 Spr ays Nasal Daily Azithromycin 500MG Oral Tablet 06/04/2024 Unknown By Mouth x1 NOW 2 TABLET 746340 RxNorm 2 TABLET By Mouth x1 NOW [...] Status Code Code System SEASONAL ALLERGY active 252046389 SNO MED-CT FAMILY PLANNING 06/20/2020 active 265455010 SNO MED-CT BITE OF INSECT active 706887613 SNOME D-CT ES OF VAGINA 08/07/2022 active 97628143 S NOMED-CT MENORRHAGIA active 885496780 SNOMED-C T PAINFUL NECK active 39296729 SNOMED- CT ADHD OF CHILDHOOD 07/22/2019 resolved 754125828 S NOMED-CT SEASONAL NASAL ALLERGY 07/22/2019 resolved 696551 001 SNOMED-CT HISTORY OF CHICKENPOX 07/22/2019 resolved 7984488 08 SNOMED-CT Allergies and Adverse Reactions Allergy Substance Reaction Severity Start Date Concern Status Co de Code System Active seasonal allergies Active No Known Drug Allergies Active 448365909 SNOMED-CT No Known Drug Allergies Active 087844832 SNOMED-CT Plan of Treatment Description Due Date Details Instructions DEPRESSION SCREENING DUE 06/20/2021 Personal Care Team Section Performer Name Performer Role Active Date Inactive David mccallum
--- OUTSIDE RECORDS SUMMARY | 2025-01-31 03:05 | XMS_ITS ---
Author Organization Unknown Address [address] [place] [phone] Phone Care Team Providers Care Technology Coordinator Name Role Phone ATIYA Lezama MD Attending [...] em Smoking History Never smoker (Never Smoked) 859535638 SNOMED CT Sex Female Sexual Orientation Straight or Heterosexual 70325334 SNOMED CT Gender Identity Female [id number] [address] Medications Medication Start Date End Date Route Frequency Dose Code Code System Medication Instructions Home Meds ZyrTEC Allergy 10MG Oral Capsule, Liquid Filled 03/12/2023 Unknown By Mouth Daily 1 CAPSULE 4681763 RxNorm 1 CAPSULE By Mouth Daily Fluticasone 0.05MG/1Actuatio n Nasal [place] 03/12/2023 Unknown Nasal Daily 1 Sprays 1409214 RxNorm 1 Spra ys Nasal Daily Azithromycin 500MG Oral Tablet 06/04/2024 Unknown By Mouth x1 NOW 2 TABLET 845265 RxNorm 2 TABLET By Mouth x1 NOW [...] Status Code Code System SEASONAL ALLERGY active 127064552 SNO MED-CT FAMILY PLANNING 06/20/2020 active 937702769 SNO MED-CT BITE OF INSECT active 663090887 SNOME D-CT ES OF VAGINA 08/07/2022 active 03816673 S NOMED-CT MENORRHAGIA active 048251950 SNOMED-C T PAINFUL NECK active 15184964 SNOMED- CT ADHD OF CHILDHOOD 07/22/2019 resolved 237201074 S NOMED-CT SEASONAL NASAL ALLERGY 07/22/2019 resolved 993971 001 SNOMED-CT HISTORY OF CHICKENPOX 07/22/2019 resolved 0485757 08 SNOMED-CT Allergies and Adverse Reactions Allergy Substance Reaction Severity Start Date Concern Status Co de Code System Active seasonal allergies Active No Known Drug Allergies Active 752800651 SNOMED-CT No Known Drug Allergies Active 603570741 SNOMED-CT Plan of Treatment Description Due Date Details Instructions DEPRESSION SCREENING DUE 06/20/2021 Personal Care Team Section Performer Name Performer Role Active Date Inactive Da xena
--- OUTSIDE RECORDS SUMMARY | 2025-01-31 03:05 | XMS_ITS ---
Author Organization Unknown Address [address] [place] [phone] Phone Care Team Providers Care Side Show Entertainer Name Role Phone Blanco Gallego Attending Unavailable [...] em Smoking History Never smoker (Never Smoked) 489932577 SNOMED CT Sex Female Sexual Orientation Straight or Heterosexual 96002398 SNOMED CT Gender Identity Female [id number] [address] Medications Medication Start Date End Date Route Frequency Dose Code Code System Medication Instructions Home Meds ZyrTEC Allergy 10MG Oral Capsule, Liquid Filled 03/12/2023 Unknown By Mouth Daily 1 CAPSULE 2573010 RxNorm 1 CAPSULE By Mouth Daily Fluticasone 0.05MG/1Actuatio n Nasal [place] 03/12/2023 Unknown Nasal Daily 1 Sprays 7170087 RxNorm 1 Spra ys Nasal Daily Azithromycin 500MG Oral Tablet 06/04/2024 Unknown By Mouth x1 NOW 2 TABLET 987983 RxNorm 2 TABLET By Mouth x1 NOW [...] Status Code Code System SEASONAL ALLERGY active 213501177 SNO MED-CT FAMILY PLANNING 06/20/2020 active 915351216 SNO MED-CT BITE OF INSECT active 149633090 SNOME D-CT ES OF VAGINA 08/07/2022 active 81856458 S NOMED-CT MENORRHAGIA active 537342501 SNOMED-C T PAINFUL NECK active 78295919 SNOMED- CT ADHD OF CHILDHOOD 07/22/2019 resolved 783483979 S NOMED-CT SEASONAL NASAL ALLERGY 07/22/2019 resolved 655930 001 SNOMED-CT HISTORY OF CHICKENPOX 07/22/2019 resolved 4512134 08 SNOMED-CT Allergies and Adverse Reactions Allergy Substance Reaction Severity Start Date Concern Status Co de Code System Active seasonal allergies Active No Known Drug Allergies Active 953012239 SNOMED-CT No Known Drug Allergies Active 592961485 SNOMED-CT Plan of Treatment Description Due Date Details Instructions DEPRESSION SCREENING DUE 06/20/2021 Personal Care Team Section Performer Name Performer Role Active Date Inactive Da xena
--- OUTSIDE RECORDS SUMMARY | 2025-01-31 03:05 | XMS_ITS ---
Author Organization Unknown Address [address] [place], [place] [phone] Phone Care Team Providers Care Steward/[employer] Name Role Phone Shahanacristian AltamiranoOpal Attending Unavailable Results BACTERIAL VAGINOSIS RAPID TE ST - Collect Date/Time: 07/31/2022 17:20 [facility] ID: [id number] [address] [place], [place], [address] LOINC: 6410-5 Test Value Unit Reference Range Code Code System Flag BACTERIAL VAGINOSIS NEGATIVE NORMAL: NEGATIVE CULTURE YEAST, WITH IDENTIFI CATION - Collect Date/Time: 07/31/2022 17:19 [facility] ID: [id number] [address] [place], [place], [address] LOINC: 5048-4 Test Value Unit Reference Range Code Code System Flag SOURCE: VAGINAL STATUS: FINAL ISOLATE 1: Margoth albicans A CULTURE: Culture in progress TRICHOMONAS VAGINALIS FEMALE RNA QUAL - Collect Date/Time: 07/31/2022 17:19 [facility] ID: [id number] [address] [place], [place], [address] LOINC: 79825-0 Test Value Unit Reference Range Code Code System Flag TRICHOMONAS VAGINALISRNA, QL TMA NOT DETECTED NOT DETECTED CHLAMYDIA/GC URINE RNA, TMA APTIMA - Collect Date/Time: 07/31/2022 17:19 [facility] ID: [id number] [address] [place], [place], [address] LOINC: 5048-4 Test Value Unit Reference Range Code Code System Flag CHLAMYDIA TRACHOMATISRNA, TMA, UROGENITAL NOT DETECTED NOT DETECTED NEISSERIA GONORRHOEAERNA, TMA, UROGENITAL NOT DETECTED NOT DETECTED Social History Type Status Start Date End Date Code Code Syst em Smoking History Never smoker (Never Smoked) 808389014 SNOMED CT Sex Female Sexual Orientation Straight or Heterosexual 59951878 SNOMED CT Gender Identity Female [id number] [address] Medications Medication Start Date End Date Route Frequency Dose Code Code System Medication Instructions Home Meds Anel-28 30MCG-0.15MG-NA Oral Tablet 06/07/2022 09/12/2022 By Mouth Daily 1 TABLET 803432 RxNorm 1 TABLET By Mouth Daily Diflucan [...] 02/20/2023 By Mouth As Directed 1 PACK 736272 RxNorm 1 PACK By Mouth As Directed Methocarbamol 750MG Oral Tablet 12/25/2022 03/12/2023 By Mouth As needed every 8 hr 275226 RxNorm 1-2 TABLET By Mouth As needed every 8 hr [place]-28 30 MCG-0.15 MG; NA Oral Tablet 12/25/2022 03/12/2023 By Mouth Daily 1 TABLET 569214 RxNorm 1 TABLET By Mouth Daily Macrobid 100MG Oral Capsule 02/20/2023 03/12/2023 By mouth Twice a day 1 TABLET 357666 RxNorm 1 TABLET By mouth Twice a day X 7 DAYS Pyridium 100MG Oral Tablet 02/20/2023 03/12/2023 By mouth As needed every 8 hr 1 TABLET 2035574 RxNorm 1 TABLET By mouth As needed every 8 hr for urinary pain ZyrTEC Allergy 10MG Oral Capsule, Liquid Filled 03/12/2023 Unknown By Mouth Daily 1 CAPSULE 5603437 RxNorm 1 CAPSULE By Mouth Daily Fluticasone 0.05MG/1Actuatio n Nasal [place] 03/12/2023 Unknown Nasal Daily 1 Sprays 1805869 RxNorm 1 Spra ys Nasal Daily Azithromycin 500MG Oral Tablet 06/04/2024 Unknown By Mouth x1 NOW 2 TABLET 705161 RxNorm 2 TABLET By Mouth x1 NOW [...] Status Code Code System SEASONAL ALLERGY active 715304695 SNO MED-CT FAMILY PLANNING 06/20/2020 active 481804527 SNO MED-CT BITE OF INSECT active 239207326 SNOME D-CT MARGOTH OF VAGINA 08/07/2022 active 08767412 S NOMED-CT MENORRHAGIA active 161490744 SNOMED-C T PAINFUL NECK active 55943589 SNOMED- CT ADHD OF CHILDHOOD 07/22/2019 resolved 061317683 S NOMED-CT SEASONAL NASAL ALLERGY 07/22/2019 resolved 764275 001 SNOMED-CT HISTORY OF CHICKENPOX 07/22/2019 resolved 3563983 08 SNOMED-CT Allergies and Adverse Reactions Allergy Substance Reaction Severity Start Date Concern Status Co de Code System Active seasonal allergies Active No Known Drug Allergies Active 944038373 SNOMED-CT No Known Drug Allergies Active 066115924 SNOMED-CT Plan of Treatment Description Due Date Details Instructions DEPRESSION SCREENING DUE 06/20/2021 Encounters Encounter Diagnosis Start Date Code Code Sys tem Noninflammatory disorder of the vagina 07/31/2022 22 806040 SNOMED-CT Personal Care Team Section Performer Name Performer Role Active Date Inactive Da xena
--- OUTSIDE RECORDS SUMMARY | 2025-01-31 03:05 | XMS_ITS ---
Author Organization Unknown Address [address] [place] [address] [phone] Phone Care Team Providers Care City Treasurer Name Role Phone TABATHA RODGERS Attending Unavailable [...] MICR O - Collect Date/Time: 07/31/2022 17:14 [facility] ID: [id number] [address] [place] [address], [phone] LOINC: Test Value Unit Reference Range Code [...] TEST - Colle ct Date/Time: 07/31/2022 17:12 [facility] ID: [id number] [address] [place] [address], [phone] LOINC: Test Value Unit Reference Range Code Code System Flag TEST PERFORMED URINE PREG (URINE) NEGATIVE LOT#: [id number] EXP DATE: 2023-10-10 QC: ACCEPTABLE Social History Type Status Start Date End Date Code Code Syst em Smoking History Never smoker (Never Smoked) 183375099 SNOMED CT Sex Female Sexual Orientation Straight or Heterosexual 85896694 SNOMED CT Gender Identity Female [id number] [address] Vital Signs Vital Sign Value Unit [place] Value [place] Unit Date/Time Recent/Initial? Code Code System Body Mass Index 23.34 kg/m2 07/31/2022 16:59 Initial 42175 -5 [facility] Body Mass Index Percentile 71 % 07/31/2022 16:59 Initial 60580 -9 [facility] Systolic Blood Pressure 120 mm[Hg] 07/31/2022 16:59 Initial 8480- 6 [facility] Diastolic Blood Pressure 80 mm[Hg] 07/31/2022 16:59 Initial 8462- 4 [facility] Body Surface Area 1.79 m2 07/31/2022 16:59 Initial 3140- 1 [facility] Height 170.180 0 cm 67.00 in 07/31/2022 16:59 Initial 8302- 2 [facility] O2 Saturation 98 % 2021 16:59 Initial 06578 -5 [facility] Pulse 92.0 /min 07/31/2022 16:59 Initial 8867- 4 [facility] Temperature 36.8 Antonella 98.2 F 07/31/20 16:59 Initial 8310- 5 [facility] Weight 67.59 kg 149.00 lbs 07/31/2022 16:59 Initial 24875 -7 [facility] Medications Medication Start Date End Date Route Frequency Dose Code Code System Medication Instructions Home Meds predniSONE 50MG Oral Tablet 06/07/2022 07/31/2022 By Mouth Daily 1 TABLET 188355 RxNorm 1 TABLET By Mouth Daily Anel-28 30MCG-0.15MG-NA Oral Tablet 06/07/2022 09/12/2022 By Mouth Daily 1 TABLET 049012 RxNorm 1 TABLET By Mouth Daily Diflucan [...] 02/20/2023 By Mouth As Directed 1 PACK 802503 RxNorm 1 PACK By Mouth As Directed Methocarbamol 750MG Oral Tablet 12/25/2022 03/12/2023 By Mouth As needed every 8 hr 212308 RxNorm 1-2 TABLET By Mouth As needed every 8 hr Anel-28 30 MCG-0.15 MG; NA Oral Tablet 12/25/2022 03/12/2023 By Mouth Daily 1 TABLET 510721 RxNorm 1 TABLET By Mouth Daily Macrobid 100MG Oral Capsule 02/20/2023 03/12/2023 By mouth Twice a day 1 TABLET 195345 RxNorm 1 TABLET By mouth Twice a day X 7 DAYS Pyridium 100MG Oral Tablet 02/20/2023 03/12/2023 By mouth As needed every 8 hr 1 TABLET 6653130 RxNorm 1 TABLET By mouth As needed every 8 hr for urinary pain ZyrTEC Allergy 10MG Oral Capsule, Liquid Filled 03/12/2023 Unknown By Mouth Daily 1 CAPSULE 7965465 RxNorm 1 CAPSULE By Mouth Daily Fluticasone 0.05MG/1Actuati on Nasal [place] 03/12/2023 Unknown Nasal Daily 1 Sprays 3399503 RxNorm 1 Spr ays Nasal Daily Azithromycin 500MG Oral Tablet 06/04/2024 Unknown By Mouth x1 NOW 2 TABLET 557279 RxNorm 2 TABLET By Mouth x1 NOW [...] Status Code Code System SEASONAL ALLERGY active 268891614 SNO MED-CT FAMILY PLANNING 06/20/2020 active 081504889 SNO MED-CT BITE OF INSECT active 523364311 SNOME D-CT ES OF VAGINA 08/07/2022 active 40409694 S NOMED-CT MENORRHAGIA active 185256520 SNOMED-C T PAINFUL NECK active 60162393 SNOMED- CT ADHD OF CHILDHOOD 07/22/2019 resolved 350209938 S NOMED-CT SEASONAL NASAL ALLERGY 07/22/2019 resolved 085536 001 SNOMED-CT HISTORY OF CHICKENPOX 07/22/2019 resolved 0401778 08 SNOMED-CT Allergies and Adverse Reactions Allergy Substance Reaction Severity Start Date Concern Status Co de Code System Active seasonal allergies Active No Known Drug Allergies Active 615176091 SNOMED-CT No Known Drug Allergies Active 060320800 SNOMED-CT Plan of Treatment Description Due Date Details Instructions DEPRESSION SCREENING DUE 06/20/2021 Future Order Description Future Order Date Futu re Order Loinc: BACTERIAL VAGINOSIS RAPID TEST 07/31/2022 LOINC: 6410-5 CULTURE YEAST, WITH IDENTIFICATION 07/31/2022 LOINC: 60065-1 TRICHOMONAS VAGINALIS FEMALE RNA QUAL 2 LOINC: 06070-9 CHLAMYDIA/GC URINE RNA, TMA APTIMA 07/31/2022 LOINC: 5048-4 CULTURE URINE 07/31/2022 LOINC: 630-4 Encounters Encounter Diagnosis Start Date Code Code Sys tem Acute vaginitis 07/31/2022 48660320 SNOMED-CT Personal Care Team Section Performer Name Performer Role Active Date Inactive Da te Progress Notes [facility] 07/31/2022 18:10 Admission Date/Time: 07/31/2022 [...] NEGATIVE 07/31/2022 17:10 07/31/2022 17:12 final LOT#: [id number] 07/31/2022 17:10 07/31/2022 17:12 final EXP DATE: [...]
--- OUTSIDE RECORDS SUMMARY | 2025-01-31 03:06 | XMS_ITS ---
Author Organization Unknown Address [address] [place] [address] [phone] Phone Care Team Providers Care Shovel Oiler Name Role Phone Blanco Gallego Attending Unavailable [...] em Smoking History Never smoker (Never Smoked) 424100012 SNOMED CT Sex Female Sexual Orientation Straight or Heterosexual 71193757 SNOMED CT Gender Identity Female [id number] [address] Vital Signs Vital Sign Value Unit [place] Value [place] Unit Date/Time Recent/Initial? Code Code System Body Mass Index 23.87 kg/m2 12/25/2022 13:33 Initial 03725 -5 [facility] Body Mass Index Percentile 74 % 12/25/2022 13:33 Initial 01825 -9 [facility] Systolic Blood Pressure 106 mm[Hg] 12/25/2022 13:33 Initial 8480- 6 [facility] Diastolic Blood Pressure 72 mm[Hg] 12/25/2022 13:33 Initial 8462- 4 [facility] Body Surface Area 1.85 m2 12/25/2022 13:33 Initial 3140- 1 [facility] Height 172.720 0 cm 68.00 in 12/25/2022 13:33 Initial 8302- 2 [facility] O2 Saturation 100 % 2022 13:33 Initial 95328 -5 [facility] Pulse 82.0 /min 12/25/2022 13:33 Initial 8867- 4 [facility] Respiration 16 /min 12/25/19 13:33 Initial 9279- 1 [facility] Temperature 37.0 Antonella 98.6 F 12/25/19 13:33 Initial 8310- 5 [facility] Weight 71.21 kg 157.00 lbs 12/25/2022 13:33 Initial 31196 -7 [facility] Medications Medication Start Date End Date Route Frequency Dose Code Code System Medication Instructions Home Meds Radha 28 3MG-0.02MG Oral Tablet 09/12/2022 12/25/2022 By Mouth Once a day 1 TABLET RxNorm 1 TABLET By Mouth Once a day Medrol Dosepak 4MG Oral Tablet 12/25/2022 02/20/2023 By Mouth As Directed 1 PACK 324749 RxNorm 1 PACK By Mouth As Directed Methocarbamol 750MG Oral Tablet 12/25/2022 03/12/2023 By Mouth As needed every 8 hr 486887 RxNorm 1-2 TABLET By Mouth As needed every 8 hr [place]-28 30 MCG-0.15 MG; NA Oral Tablet 12/25/2022 03/12/2023 By Mouth Daily 1 TABLET 345412 RxNorm 1 TABLET By Mouth Daily Macrobid 100MG Oral Capsule 02/20/2023 03/12/2023 By mouth Twice a day 1 TABLET 029039 RxNorm 1 TABLET By mouth Twice a day X 7 DAYS Pyridium 100MG Oral Tablet 02/20/2023 03/12/2023 By mouth As needed every 8 hr 1 TABLET 6549743 RxNorm 1 TABLET By mouth As needed every 8 hr for urinary pain ZyrTEC Allergy 10MG Oral Capsule, Liquid Filled 03/12/2023 Unknown By Mouth Daily 1 CAPSULE 8271332 RxNorm 1 CAPSULE By Mouth Daily Fluticasone 0.05MG/1Actuati on Nasal [place] 03/12/2023 Unknown Nasal Daily 1 Sprays 1616594 RxNorm 1 Spr ays Nasal Daily Azithromycin 500MG Oral Tablet 06/04/2024 Unknown By Mouth x1 NOW 2 TABLET 054153 RxNorm 2 TABLET By Mouth x1 NOW Assessment You had the following problems:SEASONAL ALLERGYFAMILY PLANNINGBITE OF INSECTCANDIDA OF VAGINAMENORRHAGIAPAINFUL NECK Assessment/Plan: 1. Left upper back pain - Start steroids and muscle relaxer. Patient denies need for school note. 2. Contraceptive management - Patient requesting to restart Morley, will restart at this time Return to clinic [facility] Discharge Instructions Should you have any questions prior to discharge, please contact a member of your healthcare team. If you have left the hospital and have any questions, please contact your primary care physician. Reason For Referral No Data Found Problems Problem Start Date Resolved Date Status Code Code System SEASONAL ALLERGY active 413828811 SNO MED-CT FAMILY PLANNING 06/20/2020 active 624708830 SNO MED-CT BITE OF INSECT active 467363641 SNOME D-CT ES OF VAGINA 08/07/2022 active 63363957 S NOMED-CT MENORRHAGIA active 482172896 SNOMED-C T PAINFUL NECK active 74787144 SNOMED- CT ADHD OF CHILDHOOD 07/22/2019 resolved 337710453 S NOMED-CT SEASONAL NASAL ALLERGY 07/22/2019 resolved 475352 001 SNOMED-CT HISTORY OF CHICKENPOX 07/22/2019 resolved 4368151 08 SNOMED-CT Allergies and Adverse Reactions Allergy Substance Reaction Severity Start Date Concern Status Co de Code System Active seasonal allergies Active No Known Drug Allergies Active 577879734 SNOMED-CT No Known Drug Allergies Active 729806585 SNOMED-CT Plan of Treatment Description Due Date Details Instructions DEPRESSION SCREENING DUE 06/20/2021 Encounters Encounter Diagnosis Start Date Code Code Sys tem Pain in thoracic spine 12/25/2022 541175141 SNOME D-CT Personal Care Team Section Performer Name Performer Role Active Date Inactive Da te Progress Notes [facility] 12/25/2022 13:54 Admission Date/Time: 12/25/2022 13:07 [facility] Visit Note Chief Complaint: [place] [facility] F/U UPPER BACK PAIN/BY NECK SWOLLEN [...] is an 17 yo female presents to [facility] today for [place] [facility] follow up neck and back pain. Pt states she went to [place] [facility] on 12-18-22 with neck and upper back pain. States it just started hurting her while at work, denies injury to the areas. 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 States she has been taking warm [...] Contraceptive management - Patient requesting to restart Morley, will restart at this time Return to [...] records Referring and communicating with other health live in caregiver x Obtaining and/or reviewing separately obtained history Independent interpretation of results and communicating results to the patient/family/caregiver x Performing a medically appropriate examination/evaluation Care coordination (not reported separately) Ordered & Completed Meds Table: No Current Medications Available Discharge Med List: Discharge Medications: No Discharge Medications Available
[2025-01-31 03:07] LABS: Add Urine Microscopic? YES; Appearance Urine Cloudy (Clear); Bacteria Urine 1+ /hpf; Bilirubin Urine Negative (Negative); Blood Urine 3+ (Negative); Color Urine Yellow (Yellow); Glucose Urine UA Negative (Negative); Ketones Urine Negative (Negative); Leukocyte Esterase Ur 3+ LEU/UL (Negative); Nitrate Urine Negative (Negative); Non Pathogenic Casts 0-2; Protein Urine 1+ mg/dL (Negative); RBC Urine 0-2 /hpf (0-2); Specific Grav Ur 1.015 (1.001-1.035); Squamous Epithelial Cell Urine Occasional /hpf (Few); Urobilinogen Urine 0.2 mg/dL (<2.0); WBC Urine >100 /hpf (0-3); pH Urine 6.5 (5.0-9.0)
[2025-01-31 03:21] LABS: Alanine Aminotransferase 31 U/L (6-35); Albumin Level 4.2 g/dL (3.5-5.1); Alkaline Phosphatase 139 U/L (38-126); Anion Gap 12 mmol/L (4-12); Aspartate Amino Transferase 42 U/L (14-36); Bilirubin,Total 0.5 mg/dL (0.2-1.3); Blood Urea Nitrogen 14 mg/dL (7-17); Calcium 9.5 mg/dL (8.4-10.2); Carbon Dioxide 22 mmol/L (22-30); Chloride 106 mmol/L (98-107); Estimated Glomerular Filt Rate > 60; Glucose 90 mg/dL (65-110); Lipase 88 U/L (23-300); Potassium 3.6 mmol/L (3.4-5.0); Sodium 140 mmol/L (137-145); Uric Acid 6.4 mg/dL (2.5-7.5)
[2025-01-31 03:32] LABS: NT Pro B Type Natriuretic Pept 88 pg/mL (19.9-100); Troponin I < 0.012 ng/mL (0.000-0.034)
[2025-01-31 05:02] VITALS: BP 136/68; PULSE 50; RESP 18; TEMP 36.7; O2SAT 99
--- NOTE | 2025-01-31 05:21 | ECG_ITS ---
Test Date: 2025-01-31 05:33:55 Measurements Intervals [place] Rate: 54 P: 26 AR: 145 QRS: 88 QRSD: 96 T: 89 QT: 429 QTc: 410 Interpretive Statements SINUS BRADYCARDIA WITH SINUS ARRHYTHMIA INCOMPLETE RIGHT BUNDLE BRANCH BLOCK Compared to ECG 01/31/2025 02:37:57 NO SIGNIFICANT CHANGES Electronically Signed On 01-31-2025 13:33:48 CDT by Elieser Massey M.D.
[2025-01-31 06:03] LABS: Troponin I < 0.012 ng/mL (0.000-0.034)
== END 2025-01-31 06:06 | disposition home or self-care (01) ==
PROVIDERS: Emergency Provider Emergency Medicine
DX: R07.9 Chest pain, unspecified (principal); Z87.891 Personal history of nicotine dependence
CPT/HCPCS: 36415; 71045; 71275; 80053; 81001; 81025; 83690; 83735; 83880; 84484; 84550; 85025; 85610; 85730; 87086; 93005; 99284; A9270; Q9967

== ENCOUNTER 2025-03-31 21:22 | Emergency (ER) | payer OTHER, SELFPAY ==
--- NOTE | ~2025-03-31 | XR_ITS ---
CHEST RADIOGRAPH, PA AND LATERAL CLINICAL HISTORY: dizziness . COMPARISON: 01/31/2025. Reference is also made to a CTA of the chest performed 01/31/2025 yielding chrissie gn results. TECHNIQUE: PA and lateral views of the chest. FINDINGS The cardiomediastinal silhouette is unremarkable. The lungs are clear. IMPRESSION: No focal infiltrate or effusion. Reviewed, dictated and finalized at location A.
--- OUTSIDE RECORDS SUMMARY | 2025-03-31 21:23 | XMS_ITS ---
Author Organization Unknown Address [address], [place] [phone] Phone Care Team Providers Care Clothes Drier Repairer Name Role Phone DEON RAFIQ Attending Unavailable Results CYTOMEGALOVIRUS AB IGG - Col lect Date/Time: 10/22/2024 14:12 [facility] ID: [id number] [address], [place], [id number] LOINC: 5124-3 Test Value Unit Reference Range Code Code System Flag CYTOMEGALOVIRUS ANTIBODY(IGG) >10.00 H PARVOVIRUS B19 IGG & IGM - C ollect Date/Time: 10/22/2024 14:12 [facility] ID: [id number] [address], [place], [phone] LOINC: 5273-8 Test Value Unit Reference Range Code Code System Flag PARVOVIRUS B19 ANTIBODY(IGG) 0.2 PAR[facility] B19 ANTIBODY(IGM) 0.2 Social History Type Status Start Date End Date Code Code Syst em Smoking History Never smoker (Never Smoked) 292399310 SNOMED CT Sex Female Sexual Orientation Straight or Heterosexual 58376942 SNOMED CT Gender Identity Female [id number] [address] Medications Medication Start Date End Date Route Frequency Dose Code Code System Medication Instructions Home Meds ZyrTEC Allergy 10MG Oral Capsule, Liquid Filled 03/12/2023 Unknown By Mouth Daily 1 CAPSULE 4007725 RxNorm 1 CAPSULE By Mouth Daily Fluticasone 0.05MG/1Actuatio n Nasal [place] 03/12/2023 Unknown Nasal Daily 1 Sprays 3172060 RxNorm 1 Spra ys Nasal Daily Azithromycin 500MG Oral Tablet 06/04/2024 Unknown By Mouth x1 NOW 2 TABLET 285894 RxNorm 2 TABLET By Mouth x1 NOW [...] Status Code Code System SEASONAL ALLERGY active 775331492 SNO MED-CT FAMILY PLANNING 06/20/2020 active 747015965 SNO MED-CT BITE OF INSECT active 703835704 SNOME D-CT ES OF VAGINA 08/07/2022 active 70652485 S NOMED-CT MENORRHAGIA active 871042548 SNOMED-C T PAINFUL NECK active 87505556 SNOMED- CT ADHD OF CHILDHOOD 07/22/2019 resolved 725073051 S NOMED-CT SEASONAL NASAL ALLERGY 07/22/2019 resolved 719698 001 SNOMED-CT HISTORY OF [place] 07/22/2019 resolved 9975964 08 SNOMED-CT Allergies and Adverse Reactions Allergy Substance Reaction Severity Start Date Concern Status Co de Code System Active seasonal allergies Active No Known Drug Allergies Active 357519164 SNOMED-CT No Known Drug Allergies Active 176261846 SNOMED-CT Plan of Treatment Description Due Date Details Instructions DEPRESSION SCREENING DUE 06/20/2021 Encounters Encounter Diagnosis Start Date Code Code Sys tem ultrasound scan abnormal 10/22/2024 787697 005 SNOMED-CT Personal Care Team Section Performer Name Performer Role Active Date Inactive Da xena
--- OUTSIDE RECORDS SUMMARY | 2025-03-31 21:24 | XMS_ITS ---
Author Organization Unknown Address [address], [place] [phone] Phone Care Team Providers Care Glue Bone Drier Name Role Phone mattyKlausSHERMAN Machado Social History Type Status Start Date End Date Code Code Syst em Smoking History Never smoker (Never Smoked) 291162683 SNOMED CT Sex Female Sexual Orientation Straight or Heterosexual 21516766 SNOMED CT Gender Identity Female [id number] [address] Medications Medication Start Date End Date Route Frequency Dose Code Code System Medication Instructions Home Meds ZyrTEC Allergy 10MG Oral Capsule, Liquid Filled 03/12/2023 Unknown By Mouth Daily 1 CAPSULE 6484877 RxNorm 1 CAPSULE By Mouth Daily Fluticasone 0.05MG/1Actuatio n Nasal [place] 03/12/2023 Unknown Nasal Daily 1 Sprays 8140356 RxNorm 1 Spra ys Nasal Daily Azithromycin 500MG Oral Tablet 06/04/2024 Unknown By Mouth x1 NOW 2 TABLET 812873 RxNorm 2 TABLET By Mouth x1 NOW [...] Status Code Code System SEASONAL ALLERGY active 802479732 SNO MED-CT FAMILY PLANNING 06/20/2020 active 429198612 SNO MED-CT BITE OF INSECT active 580116225 SNOME D-CT ES OF VAGINA 08/07/2022 active 83957963 S NOMED-CT MENORRHAGIA active 952960036 SNOMED-C T PAINFUL NECK active 11318763 SNOMED- CT ADHD OF CHILDHOOD 07/22/2019 resolved 254098241 S NOMED-CT SEASONAL NASAL ALLERGY 07/22/2019 resolved 426384 001 SNOMED-CT HISTORY OF [place] 07/22/2019 resolved 6961459 08 SNOMED-CT Allergies and Adverse Reactions Allergy Substance Reaction Severity Start Date Concern Status Co de Code System Active seasonal allergies Active No Known Drug Allergies Active 456188189 SNOMED-CT No Known Drug Allergies Active 188363954 SNOMED-CT Plan of Treatment Description Due Date Details Instructions DEPRESSION SCREENING DUE 06/20/2021 Encounters Encounter Diagnosis Start Date Code Code Sys tem Dysuria 06/03/2024 12945304 SNOMED-CT Personal Care Team Section Performer Name Performer Role Active Date Inactive Da te
--- OUTSIDE RECORDS SUMMARY | 2025-03-31 21:24 | XMS_ITS ---
Author Organization Unknown Address [address] [place] [address] [phone] Phone Care Team Providers Care Supervisor Pigment Making Name Role Phone Blanco Gallego Attending Unavailable [...] em Smoking History Never smoker (Never Smoked) [id number] SNOMED CT Sex Female Sexual Orientation Straight or Heterosexual 00564086 SNOMED CT Gender Identity Female [id number] Medications Medication Start Date End Date Route Frequency Dose Code Code System Medication Instructions Home Meds Medrol Dosepak 4MG Oral Tablet 12/25/2022 02/20/2023 By Mouth As Directed 1 PACK 804731 RxNorm 1 PACK By Mouth As Directed Methocarbamol 750MG Oral Tablet 12/25/2022 03/12/2023 By Mouth As needed every 8 hr 819524 RxNorm 1-2 TABLET By Mouth As needed every 8 hr [place]-28 30 MCG-0.15 MG; NA Oral Tablet 12/25/2022 03/12/2023 By Mouth Daily 1 TABLET 696643 RxNorm 1 TABLET By Mouth Daily Macrobid 100MG Oral Capsule 02/20/2023 03/12/2023 By mouth Twice a day 1 TABLET 336361 RxNorm 1 TABLET By mouth Twice a day X 7 DAYS Pyridium 100MG Oral Tablet 02/20/2023 03/12/2023 By mouth As needed every 8 hr 1 TABLET 0742866 RxNorm 1 TABLET By mouth As needed every 8 hr for urinary pain ZyrTEC Allergy 10MG Oral Capsule, Liquid Filled 03/12/2023 Unknown By Mouth Daily 1 CAPSULE 9471773 RxNorm 1 CAPSULE By Mouth Daily Fluticasone 0.05MG/1Actuati on Nasal [place] 03/12/2023 Unknown Nasal Daily 1 Sprays 1679199 RxNorm 1 Spr ays Nasal Daily Azithromycin 500MG Oral Tablet 06/04/2024 Unknown By Mouth x1 NOW 2 TABLET 734224 RxNorm 2 TABLET By Mouth x1 NOW [...] Status Code Code System SEASONAL ALLERGY active 908335177 SNO MED-CT FAMILY PLANNING 06/20/2020 active 441559077 SNO MED-CT BITE OF INSECT active 080342396 SNOME D-CT ES OF VAGINA 08/07/2022 active 11433979 S NOMED-CT MENORRHAGIA active 269042374 SNOMED-C T PAINFUL NECK active 31460386 SNOMED- CT ADHD OF CHILDHOOD 07/22/2019 resolved 950064332 S NOMED-CT SEASONAL NASAL ALLERGY 07/22/2019 resolved 845803 001 SNOMED-CT HISTORY OF CHICKENPOX 07/22/2019 resolved 6278738 08 SNOMED-CT Allergies and Adverse Reactions Allergy Substance Reaction Severity Start Date Concern Status Co de Code System Active seasonal allergies Active No Known Drug Allergies Active 298657703 SNOMED-CT No Known Drug Allergies Active 958049377 SNOMED-CT Plan of Treatment Description Due Date Details Instructions DEPRESSION SCREENING DUE 06/20/2021 Personal Care Team Section Performer Name Performer Role Active Date Inactive David mccallum
--- OUTSIDE RECORDS SUMMARY | 2025-03-31 21:24 | XMS_ITS ---
Author Organization Unknown Address [address] [place] [address] [phone] Phone Care Team Providers Care Vessel Welder Name Role Phone ABBY AGUIRRE Attending Unavailable [...] em Smoking History Never smoker (Never Smoked) 853232611 SNOMED CT Sex Female Sexual Orientation Straight or Heterosexual 01897102 SNOMED CT Gender Identity Female [id number] [address] Vital Signs Vital Sign Value Unit [place] Value [place] [facility] Date/Time Recent/Initial? Code Code System Body Mass Index 26.21 kg/m2 05/06/2023 12:01 Initial 77054 -5 [facility] Body Mass Index Percentile 85 % 05/06/2023 12:01 Initial 55447 -9 [facility] Systolic Blood Pressure 118 mm[Hg] 05/06/2023 12:01 Initial 8480- 6 [facility] Diastolic Blood Pressure 74 mm[Hg] 05/06/2023 12:01 Initial 8462- 4 [facility] Body Surface Area 3.35 m2 05/06/2023 12:01 Initial 3140- 1 [facility] Height 248.920 0 cm 98.00 in 05/06/2023 12:01 Initial 8302- 2 [facility] O2 Saturation 98 % 2022 12:01 Initial 28223 -5 [facility] Pulse 78.0 /min 05/06/2023 12:01 Initial 8867- 4 [facility] Temperature 36.4 Antonella 97.5 F 05/06/20 12:01 Initial 8310- 5 [facility] Weight 162.40 kg 358.03 lbs 05/06/2023 12:01 Initial 52423 -7 [facility] Medications Medication Start Date End Date Route Frequency Dose Code Code System Medication Instructions Home Meds ZyrTEC Allergy 10MG Oral Capsule, Liquid Filled 03/12/2023 Unknown By Mouth Daily 1 CAPSULE 4831836 RxNorm 1 CAPSULE By Mouth Daily Fluticasone 0.05MG/1Actuatio n Nasal [place] 03/12/2023 Unknown Nasal Daily 1 Sprays 9909514 RxNorm 1 Spra ys Nasal Daily Azithromycin 500MG Oral Tablet 06/04/2024 Unknown By Mouth x1 NOW 2 TABLET 532222 RxNorm 2 TABLET By Mouth x1 NOW [...] Status Code Code System SEASONAL ALLERGY active 883593838 SNO MED-CT FAMILY PLANNING 06/20/2020 active 125697518 SNO MED-CT BITE OF INSECT active 790029506 SNOME D-CT ES OF VAGINA 08/07/2022 active 18739091 S NOMED-CT MENORRHAGIA active 916971781 SNOMED-C T PAINFUL NECK active 30641894 SNOMED- CT ADHD OF CHILDHOOD 07/22/2019 resolved 969829210 S NOMED-CT SEASONAL NASAL ALLERGY 07/22/2019 resolved 437540 001 SNOMED-CT HISTORY OF CHICKENPOX 07/22/2019 resolved 7459586 08 SNOMED-CT Allergies and Adverse Reactions Allergy Substance Reaction Severity Start Date Concern Status Co de Code System Active seasonal allergies Active No Known Drug Allergies Active 006541976 SNOMED-CT No Known Drug Allergies Active 176445633 SNOMED-CT Plan of Treatment Description Due Date Details Instructions DEPRESSION SCREENING DUE 06/20/2021 Encounters Encounter Diagnosis Start Date Code Code Sys tem Injury of head 05/06/2023 37765647 SNOMED-CT Personal Care Team Section Performer Name Performer Role Active Date Inactive Da te Progress Notes [facility] 05/06/2023 13:28 Date of Service: [...] Instructions Start Date Prescribing Fluticasone 0.05MG/1Actuation Nasal [place] 1 Sprays Nasal Daily 03/12/2023 Blanco Gallego ZyrTEC Allergy 10MG Oral Capsule, Liquid Filled 1 CAPSULE By Mouth Daily 03/12/2023 Blanco Gallego This examination was transcribed using the [employer] voice recognition system without human physical instructor. In an effort to expedite patient care, this report has not been adjusted for typographical, or medical or syntax by a trained medical microbiologist.
--- OUTSIDE RECORDS SUMMARY | 2025-03-31 21:25 | XMS_ITS ---
Author Organization Unknown Address [address] [place] [address] [phone] Phone Care Team Providers Care Legal Support Assistant Name Role Phone TABAHTA RODGERS Attending Unavailable ATIYA Lezama MD Primary [...] em Smoking History Never smoker (Never Smoked) 136411979 SNOMED CT Sex Female Sexual Orientation Straight or Heterosexual 63114964 SNOMED CT Gender Identity Female [id number] Medications Medication Start Date End Date Route Frequency Dose Code Code System Medication Instructions Home Meds predniSONE 50MG Oral Tablet 06/07/2022 07/31/2022 By Mouth Daily 1 TABLET 526360 RxNorm 1 TABLET By Mouth Daily [place]-28 30MCG-0.15MG-NA Oral Tablet 06/07/2022 09/12/2022 By Mouth Daily 1 TABLET 618306 RxNorm 1 TABLET By Mouth Daily Diflucan 150MG Oral Tablet 08/07/2022 09/12/2022 By Mouth x1 NOW 1 TABLET 047537 RxNorm 1 TABLET By Mouth x1 NOW FOR MARCH REPEAT IN 72 HOURS Radha 28 3MG-0.02MG Oral Tablet 09/12/2022 12/25/2022 By Mouth Once a day 1 TABLET RxNorm 1 TABLET By Mouth Once a day Medrol Dosepak 4MG Oral Tablet 12/25/2022 02/20/2023 By Mouth As Directed 1 PACK 453375 RxNorm 1 PACK By Mouth As Directed Methocarbamol 750MG Oral Tablet 12/25/2022 03/12/2023 By Mouth As needed every 8 hr 549800 RxNorm 1-2 TABLET By Mouth As needed every 8 hr [place]-28 30 MCG-0.15 MG; NA Oral Tablet 12/25/2022 03/12/2023 By Mouth Daily 1 TABLET 054893 RxNorm 1 TABLET By Mouth Daily Macrobid 100MG Oral Capsule 02/20/2023 03/12/2023 By mouth Twice a day 1 TABLET 984996 RxNorm 1 TABLET By mouth Twice a day X 7 DAYS Pyridium 100MG Oral Tablet 02/20/2023 03/12/2023 By mouth As needed every 8 hr 1 TABLET 3173800 RxNorm 1 TABLET By mouth As needed every 8 hr for urinary pain ZyrTEC Allergy 10MG Oral Capsule, Liquid Filled 03/12/2023 Unknown By Mouth Daily 1 CAPSULE 4314998 RxNorm 1 CAPSULE By Mouth Daily Fluticasone 0.05MG/1Actuati on Nasal [place] 03/12/2023 Unknown Nasal Daily 1 Sprays 2323278 RxNorm 1 Spr ays Nasal Daily Azithromycin 500MG Oral Tablet 06/04/2024 Unknown By Mouth x1 NOW 2 TABLET 880095 RxNorm 2 TABLET By Mouth x1 NOW [...] Status Code Code System SEASONAL ALLERGY active 019188518 SNO MED-CT FAMILY PLANNING 06/20/2020 active 630307002 SNO MED-CT BITE OF INSECT active 979592344 SNOME D-CT ES OF VAGINA 08/07/2022 active 25669160 S NOMED-CT MENORRHAGIA active 436371303 SNOMED-C T PAINFUL NECK active 72101754 SNOMED- CT ADHD OF CHILDHOOD 07/22/2019 resolved 152129714 S NOMED-CT SEASONAL NASAL ALLERGY 07/22/2019 resolved 835465 001 SNOMED-CT HISTORY OF [place] 07/22/2019 resolved 9004590 08 SNOMED-CT Allergies and Adverse Reactions Allergy Substance Reaction Severity Start Date Concern Status Co de Code System Active seasonal allergies Active No Known Drug Allergies Active 924642258 SNOMED-CT No Known Drug Allergies Active 450047249 SNOMED-CT Plan of Treatment Description Due Date Details Instructions DEPRESSION SCREENING DUE 06/20/2021 Personal Care Team Section Performer Name Performer Role Active Date Inactive David mccallum
--- OUTSIDE RECORDS SUMMARY | 2025-03-31 21:25 | XMS_ITS ---
Author Organization Unknown Address [address] [place] [address] [phone] Phone Care Team Providers Care Building Surveyor Name Role Phone Blanco Gallego Attending Unavailable [...] ANTIGEN - Collec t Date/Time: 03/12/2023 14:51 [facility] ID: [id number] [address] [place], [place], [phone] LOINC: 6556-5 Test Value Unit Reference Range Code Code System Flag COVID RAPID ANTI NEGATIVE NORMAL: NEGATIVE LOT#: [id number] Exp Date: 12/07/2023 QC: ACCEPTABLE STREP A SCREEN - Collect Sha e/Time: 03/12/2023 14:50 [facility] ID: [id number] [address] [place], [place], [id number] LOINC: 6556-5 Test Value Unit Reference Range Code Code System Flag STREP SCREEN NEGATIVE NORMAL: NEGATIVE 6556-5 LOINC Lot#: [id number] Exp Date: 04/10/2024 QC STREP ACCEPTABLE Social History Type Status Start Date End Date Code Code Syst em Smoking History Never smoker (Never Smoked) 919464967 SNOMED CT Sex Female Sexual Orientation Straight or Heterosexual 29291479 SNOMED CT Gender Identity Female 04870921990362 [address] Vital Signs Vital Sign Value Unit [place] Value [place] Unit Date/Time Recent/Initial? Code Code System Body Mass Index 23.57 kg/m2 03/12/2023 14:40 Initial 08118 -5 LOINC Body Mass Index Percentile 71 % 03/12/2023 14:40 Initial 10978 -9 LOINC Systolic Blood Pressure 100 mm[Hg] 03/12/2023 14:40 Initial 8480- 6 LOINC Diastolic Blood Pressure 68 mm[Hg] 03/12/2023 14:40 Initial 8462- 4 LOINC Body Surface Area 1.84 m2 03/12/2023 14:40 Initial 3140- 1 LOINC Height 172.720 0 cm 68.00 in 03/12/2023 14:40 Initial 8302- 2 [facility] O2 Saturation 95 % 2022 14:40 Initial 74580 -5 [facility] Pulse 56.0 /min 03/12/2023 14:40 Initial 8867- 4 [facility] Respiration 16 /min 03/12/20 14:40 Initial 9279- 1 [facility] Temperature 37.5 Antonella 99.5 F 03/12/20 14:40 Initial 8310- 5 [facility] Weight 70.31 kg 155.00 lbs 03/12/2023 14:40 Initial 45462 -7 [facility] Medications Medication Start Date End Date Route Frequency Dose Code Code System Medication Instructions Home Meds Methocarbamol 750MG Oral Tablet 12/25/2022 03/12/2023 By Mouth As needed every 8 hr 924756 RxNorm 1-2 TABLET By Mouth As needed every 8 hr [place]-28 30 MCG-0.15 MG; NA Oral Tablet 12/25/2022 03/12/2023 By Mouth Daily 1 TABLET 810075 RxNorm 1 TABLET By Mouth Daily Macrobid 100MG Oral Capsule 02/20/2023 03/12/2023 By mouth Twice a day 1 TABLET 092559 RxNorm 1 TABLET By mouth Twice a day X 7 DAYS Pyridium 100MG Oral Tablet 02/20/2023 03/12/2023 By mouth As needed every 8 hr 1 TABLET 1451505 RxNorm 1 TABLET By mouth As needed every 8 hr for urinary pain ZyrTEC Allergy 10MG Oral Capsule, Liquid Filled 03/12/2023 Unknown By Mouth Daily 1 CAPSULE 3131441 RxNorm 1 CAPSULE By Mouth Daily Fluticasone 0.05MG/1Actuati on Nasal [place] 03/12/2023 Unknown Nasal Daily 1 Sprays 5373159 RxNorm 1 Spr ays Nasal Daily Azithromycin 500MG Oral Tablet 06/04/2024 Unknown By Mouth x1 NOW 2 TABLET 003963 RxNorm 2 TABLET By Mouth x1 NOW [...] Status Code Code System SEASONAL ALLERGY active 904228210 SNO MED-CT FAMILY PLANNING 06/20/2020 active 846444726 SNO MED-CT BITE OF INSECT active 293459285 SNOME D-CT ES OF VAGINA 08/07/2022 active 51375267 S NOMED-CT MENORRHAGIA active 531665826 SNOMED-C T PAINFUL NECK active 64465447 SNOMED- CT ADHD OF CHILDHOOD 07/22/2019 resolved 727458027 S NOMED-CT SEASONAL NASAL ALLERGY 07/22/2019 resolved 519848 001 SNOMED-CT HISTORY OF [place] 07/22/2019 resolved 1528438 08 SNOMED-CT Allergies and Adverse Reactions Allergy Substance Reaction Severity Start Date Concern Status Co de Code System Active seasonal allergies Active No Known Drug Allergies Active 959501698 SNOMED-CT No Known Drug Allergies Active 354674423 SNOMED-CT Plan of Treatment Description Due Date Details Instructions DEPRESSION SCREENING DUE 06/20/2021 Encounters Encounter Diagnosis Start Date Code Code Sys tem Seasonal allergic rhinitis 03/12/2023 009160389 S NOMED-CT Personal Care Team Section Performer Name Performer Role Active Date Inactive Da te Progress Notes [facility] 03/12/2023 15:06 Admission Date/Time: 03/12/2023 [...] is an 17 yo female presents to [facility] today for sore throat and cough. [...] Referring and communicating with other health care program director x Obtaining and/or reviewing separately obtained history Independent interpretation of results and communicating results to the patient/family/caregiver x Performing a medically appropriate examination/evaluation Care coordination (not reported separately) x Discharge instructions given to patient. Ordered & Completed Meds Table: No Current Medications Available Discharge Med List: Discharge Medications: No Discharge Medications Available [facility] 03/12/2023 15:20 Current Date/Time: 03/12/2023 15:03 Patient Name: NELA MANZANARES was seen at [facility] [phone] on Date of Service: 03/12/2023 . They may return to school on 03/13/2023 with No restrictions . .
--- OUTSIDE RECORDS SUMMARY | 2025-03-31 21:25 | XMS_ITS ---
Author Organization Unknown Address [address], [place] [phone] Phone Care Team Providers Care Sanitation Worker Name Role Phone JOSUE FULTON EDMOND Attending Unavailable Results CULTURE YEAST, WITH IDENTIFI CATION - Collect Date/Time: 02/20/2023 18:42 [facility] ID: [id number] [address], [place], [id number] LOINC: 5048-4 Test Value Unit Reference Range Code Code System Flag SOURCE: VAGINAL STATUS: FINAL ISOLATE 1: Margoth albicans A TRICHOMONAS VAGINALIS FEMALE RNA QUAL - Collect Date/Time: 02/20/2023 18:40 [facility] ID: [id number] [address], [place], [id number] LOINC: 71014-3 Test Value Unit Reference Range Code Code System Flag TRICHOMONAS VAGINALISRNA, QL TMA NOT DETECTED NOT DETECTED GC/CHLAMYDIA PCR [facility] ct Date/Time: 02/20/2023 18:40 [facility] ID: [id number] [address], [place], [id number] LOINC: 5048-4 Test Value Unit Reference Range Code Code System Flag GONORRHEA PCR NOT DETECTED NORMAL: NOT DETECTED CHLAMYDIA PCR NOT DETECTED NORMAL: NOT DETECTED BACTERIAL VAGINOSIS RAPID TE ST - Collect Date/Time: 02/20/2023 18:40 [facility] ID: [id number] [address], [place], [address] LOINC: 6410-5 Test Value Unit Reference Range Code Code System Flag BACTERIAL VAGINOSIS NEGATIVE NORMAL: NEGATIVE Social History Type Status Start Date End Date Code Code Syst em Smoking History Never smoker (Never Smoked) 329368095 SNOMED CT Sex Female Sexual Orientation Straight or Heterosexual 41564751 SNOMED CT Gender Identity Female [id number] [address] Medications Medication Start Date End Date Route Frequency Dose Code Code System Medication Instructions Home Meds Methocarbamol 750MG Oral Tablet 12/25/2022 03/12/2023 By Mouth As needed every 8 hr 713295 RxNorm 1-2 TABLET By Mouth As needed every 8 hr [place]el-28 30 MCG-0.15 MG; NA Oral Tablet 12/25/2022 03/12/2023 By Mouth Daily 1 TABLET 528298 RxNorm 1 TABLET By Mouth Daily Macrobid 100MG Oral Capsule 02/20/2023 03/12/2023 By mouth Twice a day 1 TABLET 488020 RxNorm 1 TABLET By mouth Twice a day X 7 DAYS Pyridium 100MG Oral Tablet 02/20/2023 03/12/2023 By mouth As needed every 8 hr 1 TABLET 9282638 RxNorm 1 TABLET By mouth As needed every 8 hr for urinary pain ZyrTEC Allergy 10MG Oral Capsule, Liquid Filled 03/12/2023 Unknown By Mouth Daily 1 CAPSULE 9278821 RxNorm 1 CAPSULE By Mouth Daily Fluticasone 0.05MG/1Actuati on Nasal [place] 03/12/2023 Unknown Nasal Daily 1 Sprays 6888066 RxNorm 1 Spr ays Nasal Daily Azithromycin 500MG Oral Tablet 06/04/2024 Unknown By Mouth x1 NOW 2 TABLET 862430 RxNorm 2 TABLET By Mouth x1 NOW [...] Status Code Code System SEASONAL ALLERGY active 343632974 SNO MED-CT FAMILY PLANNING 06/20/2020 active 422990697 SNO MED-CT BITE OF INSECT active 725834770 SNOME D-CT MARGOTH OF VAGINA 08/07/2022 active 14178802 S NOMED-CT MENORRHAGIA active 072577990 SNOMED-C T PAINFUL NECK active 67667718 SNOMED- CT ADHD OF CHILDHOOD 07/22/2019 resolved 531929215 S NOMED-CT SEASONAL NASAL ALLERGY 07/22/2019 resolved 320822 001 SNOMED-CT HISTORY OF [place]PO[place] 07/22/2019 resolved 2015308 08 SNOMED-CT Allergies and Adverse Reactions Allergy Substance Reaction Severity Start Date Concern Status Co de Code System Active seasonal allergies Active No Known Drug Allergies Active 095311796 SNOMED-CT No Known Drug Allergies Active 307405857 SNOMED-CT Plan of Treatment Description Due Date Details Instructions DEPRESSION SCREENING DUE 06/20/2021 Encounters Encounter Diagnosis Start Date Code Code Sys tem Dysuria 02/20/2023 59411118 SNOMED-CT Personal Care Team Section Performer Name Performer Role Active Date Inactive Da xena
--- OUTSIDE RECORDS SUMMARY | 2025-03-31 21:25 | XMS_ITS ---
Author Organization Unknown Address [address], [place] [phone] Phone Care Team Providers Care Baker Bread Name Role Phone Shahanacristian AltamiranoOpal Attending Unavailable Results BACTERIAL VAGINOSIS RAPID TE ST - Collect Date/Time: 07/31/2022 17:20 [facility] ID: [id number] [address] [place], [place], [phone] LOINC: 6410-5 Test Value Unit Reference Range Code Code System Flag BACTERIAL VAGINOSIS NEGATIVE NORMAL: NEGATIVE CULTURE YEAST, WITH IDENTIFI CATION - Collect Date/Time: 07/31/2022 17:19 [facility] ID: [id number] [address] [place], [place], [address] LOINC: 5048-4 Test Value Unit Reference Range Code Code System Flag SOURCE: VAGINAL STATUS: FINAL ISOLATE 1: Margoth albicans A CULTURE: Culture in progress TRICHOMONAS VAGINALIS FEMALE RNA QUAL - Collect Date/Time: 07/31/2022 17:19 [facility] ID: [id number] [address] [place], [place], [phone] LOINC: 44834-9 Test Value Unit Reference Range Code Code System Flag TRICHOMONAS VAGINALISRNA, QL TMA NOT DETECTED NOT DETECTED CHLAMYDIA/GC URINE RNA, TMA APTIMA - Collect Date/Time: 07/31/2022 17:19 [facility] ID: [id number] [address] [place], [place], [id number] LOINC: 5048-4 Test Value Unit Reference Range Code Code System Flag CHLAMYDIA TRACHOMATISRNA, TMA, UROGENITAL NOT DETECTED NOT DETECTED NEISSERIA GONORRHOEAERNA, TMA, UROGENITAL NOT DETECTED NOT DETECTED Social History Type Status Start Date End Date Code Code Syst em Smoking History Never smoker (Never Smoked) 102576905 SNOMED CT Sex Female Sexual Orientation Straight or Heterosexual 29375720 SNOMED CT Gender Identity Female [id number] [address] Medications Medication Start Date End Date Route Frequency Dose Code Code System Medication Instructions Home Meds [place]-28 30MCG-0.15MG-NA Oral Tablet 06/07/2022 09/12/2022 By Mouth Daily 1 TABLET 283853 RxNorm 1 TABLET By Mouth Daily Diflucan [...] 02/20/2023 By Mouth As Directed 1 PACK 926401 RxNorm 1 PACK By Mouth As Directed Methocarbamol 750MG Oral Tablet 12/25/2022 03/12/2023 By Mouth As needed every 8 hr 900471 RxNorm 1-2 TABLET By Mouth As needed every 8 hr [place]-28 30 MCG-0.15 MG; NA Oral Tablet 12/25/2022 03/12/2023 By Mouth Daily 1 TABLET 885211 RxNorm 1 TABLET By Mouth Daily Macrobid 100MG Oral Capsule 02/20/2023 03/12/2023 By mouth Twice a day 1 TABLET 604916 RxNorm 1 TABLET By mouth Twice a day X 7 DAYS Pyridium 100MG Oral Tablet 02/20/2023 03/12/2023 By mouth As needed every 8 hr 1 TABLET 4753070 RxNorm 1 TABLET By mouth As needed every 8 hr for urinary pain ZyrTEC Allergy 10MG Oral Capsule, Liquid Filled 03/12/2023 Unknown By Mouth Daily 1 CAPSULE 7009138 RxNorm 1 CAPSULE By Mouth Daily Fluticasone 0.05MG/1Actuatio n Nasal [place] 03/12/2023 Unknown Nasal Daily 1 Sprays 3792755 RxNorm 1 Spra ys Nasal Daily Azithromycin 500MG Oral Tablet 06/04/2024 Unknown By Mouth x1 NOW 2 TABLET 197949 RxNorm 2 TABLET By Mouth x1 NOW [...] Status Code Code System SEASONAL ALLERGY active 011850290 SNO MED-CT FAMILY PLANNING 06/20/2020 active 706705706 SNO MED-CT BITE OF INSECT active 582779578 SNOME D-CT MARGOTH OF VAGINA 08/07/2022 active 96216668 S NOMED-CT MENORRHAGIA active 916324395 SNOMED-C T PAINFUL NECK active 18617353 SNOMED- CT ADHD OF CHILDHOOD 07/22/2019 resolved 049253937 S NOMED-CT SEASONAL NASAL ALLERGY 07/22/2019 resolved 035799 001 SNOMED-CT HISTORY OF [place] 07/22/2019 resolved 0924805 08 SNOMED-CT Allergies and Adverse Reactions Allergy Substance Reaction Severity Start Date Concern Status Co de Code System Active seasonal allergies Active No Known Drug Allergies Active 278738902 SNOMED-CT No Known Drug Allergies Active 212496904 SNOMED-CT Plan of Treatment Description Due Date Details Instructions DEPRESSION SCREENING DUE 06/20/2021 Encounters Encounter Diagnosis Start Date Code Code Sys tem Noninflammatory disorder of the vagina 07/31/2022 22 476862 SNOMED-CT Personal Care Team Section Performer Name Performer Role Active Date Inactive Da te
--- OUTSIDE RECORDS SUMMARY | 2025-03-31 21:25 | XMS_ITS ---
Author Organization Unknown Address [address] [place] [phone] Phone Care Team Providers Care Tele Rn Name Role Phone ATIYA Lezama MD Attending [...] em Smoking History Never smoker (Never Smoked) 859203604 SNOMED CT Sex Female Sexual Orientation Straight or Heterosexual 09434871 SNOMED CT Gender Identity Female [id number] Vital Signs Vital Sign Value Unit [place] [facility] [place] [facility] Date/Time Recent/Initial? Code Code System Body Mass Index 22.93 kg/m2 09/12/2022 17:59 Initial 11913 -5 [facility] Body Mass Index Percentile 67 % 09/12/2022 17:59 Initial 61712 -9 [facility] Systolic Blood Pressure 100 mm[Hg] 09/12/2022 17:59 Initial 8480- 6 [facility] Diastolic Blood Pressure 70 mm[Hg] 09/12/2022 17:59 Initial 8462- 4 [facility] Body Surface Area 1.81 m2 09/12/2022 17:59 Initial 3140- 1 [facility] Height 172.720 0 cm 68.00 in 09/12/2022 17:59 Initial 8302- 2 [facility] O2 Saturation 99 % 2021 17:59 Initial 52660 -5 [facility] Pulse 95.0 /min 09/12/2022 17:59 Initial 8867- 4 [facility] Respiration 18 /min 09/12/20 17:59 Initial 9279- 1 [facility] Temperature 36.9 Antonella 98.4 F 09/12/20 17:59 Initial 8310- 5 [facility] Weight 68.40 kg 150.80 lbs 09/12/2022 17:59 Initial 21328 -7 [facility] Medications Medication Start Date End Date Route Frequency Dose Code Code System Medication Instructions Home Meds Anel-28 30MCG-0.15MG-NA Oral Tablet 06/07/2022 09/12/2022 By Mouth Daily 1 TABLET 659655 RxNorm 1 TABLET By Mouth Daily Diflucan 150MG Oral Tablet 08/07/2022 09/12/2022 By Mouth x1 NOW 1 TABLET 342310 RxNorm 1 TABLET By Mouth x1 NOW FOR MARCH REPEAT IN 72 HOURS Radha 28 3MG-0.02MG Oral Tablet 09/12/2022 12/25/2022 By Mouth Once a day 1 TABLET RxNorm 1 TABLET By Mouth Once a day Medrol Dosepak 4MG Oral Tablet 12/25/2022 02/20/2023 By Mouth As Directed 1 PACK 516268 RxNorm 1 PACK By Mouth As Directed Methocarbamol 750MG Oral Tablet 12/25/2022 03/12/2023 By Mouth As needed every 8 hr 999138 RxNorm 1-2 TABLET By Mouth As needed every 8 hr [place]-28 30 MCG-0.15 MG; NA Oral Tablet 12/25/2022 03/12/2023 By Mouth Daily 1 TABLET 469026 RxNorm 1 TABLET By Mouth Daily Macrobid 100MG Oral Capsule 02/20/2023 03/12/2023 By mouth Twice a day 1 TABLET 114492 RxNorm 1 TABLET By mouth Twice a day X 7 DAYS Pyridium 100MG Oral Tablet 02/20/2023 03/12/2023 By mouth As needed every 8 hr 1 TABLET 8582247 RxNorm 1 TABLET By mouth As needed every 8 hr for urinary pain ZyrTEC Allergy 10MG Oral Capsule, Liquid Filled 03/12/2023 Unknown By Mouth Daily 1 CAPSULE 2273227 RxNorm 1 CAPSULE By Mouth Daily Fluticasone 0.05MG/1Actuatio n Nasal [place] 03/12/2023 Unknown Nasal Daily 1 Sprays 4130919 RxNorm 1 Spra ys Nasal Daily Azithromycin 500MG Oral Tablet 06/04/2024 Unknown By Mouth x1 NOW 2 TABLET 373712 RxNorm 2 TABLET By Mouth x1 NOW Assessment You had the following problems:SEASONAL ALLERGYFAMILY PLANNINGBITE OF INSECTCANDIDA OF VAGINAMENORRHAGIAPAINFUL NECK Assessment/Plan: 1) Menorrhagia: Will check TSH, T4, CBC, PT/INR, and CMP. Will discontinue the [place] and start her on Radha 1 tablet daily. 2) Contraceptive management: Patient is currently on [place] but this is not managing her periods [...] Status Code Code System SEASONAL ALLERGY active 501203340 SNO MED-CT FAMILY PLANNING 06/20/2020 active 392389509 SNO MED-CT BITE OF INSECT active 138382491 SNOME D-CT ES OF VAGINA 08/07/2022 active 19312431 S NOMED-CT MENORRHAGIA active 901512807 SNOMED-C T PAINFUL NECK active 21289698 SNOMED- CT ADHD OF CHILDHOOD 07/22/2019 resolved 818535873 S NOMED-CT SEASONAL NASAL ALLERGY 07/22/2019 resolved 083437 001 SNOMED-CT HISTORY OF [place] 07/22/2019 resolved 8665207 08 SNOMED-CT Allergies and Adverse Reactions Allergy Substance Reaction Severity Start Date Concern Status Co de Code System Active seasonal allergies Active No Known Drug Allergies Active 106368510 SNOMED-CT No Known Drug Allergies Active 283888039 SNOMED-CT Plan of Treatment Description Due Date Details Instructions DEPRESSION SCREENING DUE 06/20/2021 Future Order Description Future Order Date Futu re Order Loinc: TSH 09/12/2022 LOINC: 16888-0 FREE T4 09/12/2022 LOINC: 3024-7 CBC W DIFF 09/12/2022 LOINC: 05969-2 COMPREHENSIVE METABOLIC PANEL 09/12/2022 L OINC: 40396-6 PT (PROTIME) 09/12/2022 LOINC: 6301-6 Encounters Encounter Diagnosis Start Date Code Code Sys tem Excessive and frequent menstruation 09/12/2022 53379 1003 SNOMED-CT Personal Care Team Section Performer Name Performer Role Active Date Inactive Da te Progress Notes [facility] 09/13/2022 09:49 Admission Date/Time: 09/12/2022 13:21 Rachael Andersen MD Clinic Visit Note Chief Complaint: DISCUSS BC Has the patient received a COVID Vaccine? Yes Nurse Note: this nurse note is documented by Opal Ly CMA 17 yr old female present to [facility] today to discuss BC History of Present Illness: An 17-year-old presents to [facility] today to discuss BC. Patient states [...] due to pain. Patient is currently on [place] for BC. Patient states when she first [...] records Referring and communicating with other health assistant child care teacher Obtaining and/or reviewing separately obtained history Independent [...]
--- OUTSIDE RECORDS SUMMARY | 2025-03-31 21:25 | XMS_ITS | Data Portability ---
Author Organization [facility] , [facility] Address [address] [place] [address] Assessment No assessment recorded. Plan of Treatment Reminders Order Date Submit Date Provider Last Modified By Organization Details Last Modified Time Details Appointments None recorded. Lab CBC w/ auto diff 2024 025 LE SUEUR Golden Gekko, [address] [place], [address], 5 12:24:38 glucose tolerance test, post-50G, 1-hour 2024 025 Orteq, [address] [place], [address], 5 12:35:39 obstetric screen, serum or blood 2024 025 LE SUEUR Golden Gekko, [address] [place], [address], 5 14:47:18 Referral None recorded. Procedures None recorded. Surgeries None recorded. Imaging None recorded. Medication Orders None recorded. Patient TargetsNo targets recorded. Patient Instructions Encounter Date Encounter Id Patient Instructions Last Modified By Organization Details Last Modified Time 11/18/2024 [id number] learning about screening for gestational diabetes Not available 11/18/2024 15:10:20 11/26/2024 [id number] Anxiety During and After : Care Instructions Not available 11/26/2024 17:57:56 Reason for Referral None Reported. Results Created Date Observation Date Name Description Value Unit Range Abnormal Flag Note LastModifiedBy Organization Detail LastModifiedTime 11/18/1911/19/2024 CBC (INCL UDES DIFF/ PLT) WBC 7.6 thous and/u L 4.0 - 9.8 normal Not Available Golden Gekko [address] [place] [address], [address], 11/19/2024 12:24:38 11/18/19 25 11/19/2024 CBC (INCL UDES DIFF/ PLT) RBC 3.4 jonathon on/uL 3.9 - 4.9 low Not Available Golden Gekko [address] [place] [address], [address], 11/19/2024 12:24:38 11/18/19 25 11/19/2024 CBC (INCL UDES DIFF/ PLT) hemoglobin 11.0 g/dL 11.8 - 14.8 low Not Available Golden Gekko [address] [place] [address], [address], 11/19/2024 12:24:38 11/18/19 25 11/19/2024 CBC (INCL UDES DIFF/ PLT) hematocrit 32.6 % 35.5 - 44.0 low Not Available Golden Gekko [address] [place] [address], [address], 11/19/2024 12:24:38 11/18/19 25 11/19/2024 CBC (INCL UDES DIFF/ PLT) MCV 96.7 fL 82.0 - 99.0 normal Not Available Golden Gekko [address] [place] [address], [address], 11/19/2024 12:24:38 11/18/1911/19/2024 CBC (INCL UDES DIFF/ PLT) MCH 32.6 pg 27.2 - 32.6 normal Not Available Golden Gekko [address] [place] [address], [address], 11/19/2024 12:24:38 11/18/19 25 11/19/2024 CBC (INCL UDES DIFF/ PLT) MCHC 33.7 g/dL 31.5 - 35.5 normal Not Available Golden Gekko [address] [place] [address], [address], 11/19/2024 12:24:38 11/18/19 25 11/19/2024 CBC (INCL UDES DIFF/ PLT) RDW-CV 12.2 % 11.5 - 14.5 normal Not Available [address], [address], 11/19/2024 12:24:38 11/18/19 25 11/19/2024 CBC (INCL UDES DIFF/ PLT) platelet 294 thous and/u L 140 - 350 normal Not Available [address], [address], 11/19/2024 12:24:38 11/18/19 25 11/19/2024 CBC (INCL UDES DIFF/ PLT) MPV 10.4 fL 9.3 - 12.4 normal Not Available [address], [address], 11/19/2024 12:24:38 11/18/19 25 11/19/2024 CBC (INCL UDES DIFF/ PLT) absolute neutrophil 5.66 thous and/u L 1.90 - 7.00 normal Not Available [address], [address], 11/19/2024 12:24:38 11/18/19 25 11/19/2024 CBC (INCL UDES DIFF/ PLT) absolute lymphocyte 1.32 thous and/u L 0.70 - 4.50 normal Not Available [address], [address], 11/19/2024 12:24:38 11/18/19 25 11/19/2024 CBC (INCL UDES DIFF/ PLT) absolute monocyte 0.46 thous and/u L 0.10 - 1.30 normal Not Available [address], [address], 11/19/2024 12:24:38 11/18/19 25 11/19/2024 CBC (INCL UDES DIFF/ PLT) absolute eosinophil 0.05 thous and/u L <0.70 normal Not Available [address], [address], 11/19/2024 12:24:38 11/18/19 25 11/19/2024 CBC (INCL UDES DIFF/ PLT) absolute basophil 0.03 thous and/u L <0.20 normal Not Available [address], [address], 11/19/2024 12:24:38 11/18/19 25 11/19/2024 CBC (INCL UDES DIFF/ PLT) absolute immature granulocyte 0.08 thous and/u L <0.03 high Not Available [address], [address], 11/19/2024 12:24:38 11/18/19 25 11/19/2024 (50G) 1HR - GLUCO SE GAI ANCE TEST, GESTA ELDER L SCREE N glucose (50g) 1 hour 144 mg/dL <135 high Not Available [address], [address], 11/19/2024 12:35:39 11/18/19 25 11/19/2024 OB 28W (SYPH HIV 1/2 Ag/Ab Non-Re active non-re active normal Not Available [address], [address], 11/19/2024 14:47:18 11/18/19 25 11/19/2024 OB 28W (SYPH syphilis Ab Non-Re active non-re active normal Not Available [address], [address], 11/19/2024 14:47:18 11/23/19 25 11/24/2024 (100G ) 3HR - GLUCO SE GIA ANCE TEST, GESTA ELDER L SCREE N glucose (100g) fasting 86 mg/dL <95 normal Not Available [address], [address], 11/24/2024 14:31:33 11/23/19 25 11/24/2024 (100G ) 3HR - GLUCO SE GIA ANCE TEST, GESTA ELDER L SCREE N glucose (100g) 1 hour 198 mg/dL <180 high Not Available [facility] [address] [place], [address], 11/24/2024 14:31:33 11/23/19 25 11/24/2024 (100G ) 3HR - GLUCO SE GIA ANCE TEST, GESTA ELDER L SCREE N glucose (100g) 2 hour 163 mg/dL <155 high Not Available [facility] [address] [place], [address], 11/24/2024 14:31:33 11/23/19 25 11/24/2024 (100G ) 3HR - GLUCO SE GIA ANCE TEST, GESTA ELDER L SCREE N glucose (100g) 3 hour 145 mg/dL <140 high Not Available [facility] [address] [place], [address], 11/24/2024 14:31:33 09/23/20 24 09/23/2024 US, obste tric, 2nd trime ster No observ ation record ed. [email or web address] [facility] [address] [place] [address], [address], 09/24/2024 15:24:20 10/23/20 24 10/21/2024 US, obste tric No observ ation record ed. [email or web address] [facility] [address] [place] [address], [address], 11/30/2024 13:18:29 11/20/19 25 11/19/2024 US, obste tric No observ ation record ed. [email or web address] [facility] [address] [place] [address], [address], 12/02/2024 14:05:06 Result Notes None recorded. Problems Name Problem SNOMED Code Status Onset Date Resolution Date Notes Provider Name and Address Organization Details Recorded Time Pregnanc y 23010936 Completed 202303/22/2025 Geovanna Tanner null, [place] - [employer] [facility] 16:50:59 Rubella non-immu ne 620745072 Completed 2024 WOLF GUADARRAMA NP [address] [place] [address], [address], [facility] IV 18:36:58 Abnormal finding on antenata l screenin g of mother 348702544 Completed 2024 XXY on NIPT (Klinefel ter syndrome) WOLF GUADARRAMA NP [address] [place] [address], [address], [facility] - [employer] [facility] IV 18:48:16 RhD negative 820834496 Completed 2024 RH (D) NIPT detected will need Rhogam PP WOLF GUADARRAMA NP [facility] [place], [address], [facility] - [employer] [facility] IV 18:49:16 Large for gestatio n age fetus Completed 2024 EFW 98%tile on 10/22 Echogenic bowel 11/19-94%ti le WOLF GUADARRAMA NP [address] [place] [address], [address], [facility] - [employer] [facility] IV 14:05:39 Gestatio nal diabetes mellitus 23150894 Completed 2024 WOLF GUADARRAMA NP [address] [place] [address], [address], [facility] - [employer] [facility] IV 17:52:44 Problem Notes None recorded. Procedures Surgical History Date Name Laterality Status Provider Name and Address Organization Details Recorded Time Appendectomy completed Rebecca Chadwick [place] [employer] 06/09/2024 15:08:50 Imaging Results Imaging Date Name Status LastModified by Organiz ation Details LastModified Time 09/23/2024 US, obstetric, 2nd trimester completed [facility] [address] [place], [address], 09/24/2024 15:24:20 10/21/2024 US, obstetric completed [email or web address] [facility] [address] [place], [address], 11/30/2024 13:18:29 11/19/2024 US, obstetric completed [email or web address] [facility] [address] [place], [address], 12/02/2024 14:05:06 Procedure Notes None recorded. Medical [...] 4 172.72 cm 26 kg/m2 83 % 06269.2 9527 g 120 mm[Hg] 70 mm[Hg] Lucina Rossi [facility] 4 15:43:01 Date Recorded Body weight Body mass index (BMI) Percentile per age and sex Body mass index (BMI) Body height Body temperature Systolic blood pressure Diastolic blood pressure Provider Name and Address Organization Details Last Updated DateTime 4 09000.8 30981 g 85 % 26.7 kg/m2 172.72 cm 96.6 [degF] 118 mm[Hg] 68 mm[Hg] Cristela Harpersangeeta [facility] 4 14:19:52 Date Recorded Body weight Body mass index (BMI) Body mass index (BMI) Percentile per age and sex Body height Systolic blood pressure Diastolic blood pressure Provider Name and Address Organization Details Last Updated DateTime 5 13540.4 4186 g 27.1 kg/m2 86 % 172.72 cm 110 mm[Hg] 70 mm[Hg] [facility] 5 14:46:18 Date Recorded Body weight Body mass index (BMI) Body mass index (BMI) Percentile per age and sex Body height Systolic blood pressure Diastolic blood pressure Provider Name and Address Organization Details Last Updated DateTime 5 57756.6 266 g 27.4 kg/m2 87 % 172.72 cm 112 mm[Hg] 68 mm[Hg] [facility] 5 16:44:47 Date Recorded Body weight Body mass index (BMI) Percentile per age and sex Body mass index (BMI) Body height Systolic blood pressure Diastolic blood pressure Provider Name and Address Organization Details Last Updated DateTime 5 65380.8 4949 g 86 % 26.9 kg/m2 172.72 cm 112 mm[Hg] 70 mm[Hg] [facility] 5 14:34:15 Social History Question Answer Notes LastModified by Organizat ion Details LastModified Time Tobacco Smoking Status Never Smoker Rebecca acosta, [facility] 06/09/2024 15:08:08 If You Are , What Was Your Level Of Alcohol Consumption Prior To ? None shane Information not available 06/09/2024 Are You Blind Or Do You Have Difficulty Seeing? No Information not available 06/23/2024 Are You Deaf Or Do You Have Serious Difficulty Hearing? No Information not available 06/23/2024 What Type Of Diet Are You Following? REGULAR [email or web address] Information not available 06/09/2024 How Many Children Do You Have? 0 [email or web address] Information not available 06/23/2024 What Is Your Relationship Status? Domestic Partner [email or web address] Information not available 06/09/2024 Are You Sexually Active? [email or web address] Information not available 06/09/2024 Sex: Unknown Functional Status Question Answer Note LastModified by Organizat ion Details LastModified Time Do you use any illicit or recreational drugs? No [place] [address] Information not available 06/09/2024 Do you or have you ever used any other forms of tobacco or nicotine? No [email or web address] Information not available 06/09/2024 What is your level of alcohol consumption? None [place] [address] Information not available 06/09/2024 What is your exercise level? None [email or web address] Information not available 06/23/2024 Mental Status None recorded. Family History Relationship Description Onset Age of this Age Resolved Age Notes LastModified by Organization Details LastModified Time Father No current problems or disability [place] [email or web address] Not available 05/13 15:07:47 Mother No current problems or disability [email or web address] Not available 05/13 15:07:47 Medical History Condition Response High Blood Pressure N Cytomegalovirus N Hyperthyroidism N MRSA N Blood Transfusion N Depression N Incontinence N Anxiety Disorder N Autoimmune disease N Arthritis N Infertility N Polycystic Ovarian Syndrome N Hematuria N Varicosities N Stroke N Seasonal allergies N Crohn's Disease N Alzheimer's/Dementia N COPD/Emphysema N History of Abnormal Pap N Fibromyalgia N Kidney Infection N Kidney Disease N Gallbladder disease N Von Willebrand disease N Eating Disorder N Diabetes Mellitus (non-insulin dependent ) N Ovarian Problems N Frequent Urinary Tract infections N Osteopenia N GERD (reflux) N Diabetes (insulin dependent) N Heart Attack N Asthma N Endometrial Cancer N Hepatitis N Pulmonary Embolism N RPR N Chicken Pox N Other Cancer N Colon Cancer N Herpes (HSV) N Breast Cancer N Lung Cancer N Hypothyroidism N Panic Attacks N Neurological Disorder N Deep Vein Thrombosis N Shingles N Tuberculosis/Positive PPD N Cervical Cancer N Chlamydia N Endometriosis N HPV/Genital Warts N IBS (Irritable Bowel Syndrome) N High [...] SNOMED-CT Code Diagnosis ICD10 Code Diagnosis Note [id number] WLOF GUADARRAMA NP [address] [address] 06/09/2024 15:02:07 06/10/2024 15:59:32 Missed period 53815149 N92.6 Patient with possible early gestation. Patient is unsure of LMP possibly 6.17.24. Denies VB or abnormal discharge. SAB precaution s reviewed. To RTC in 2-3 weeks for repeat TVUS [id number] WOLF GUADARRAMA NP [address] [address] 06/23/2024 14:51:10 06/23/2024 16:28:07 test positive 414318893 Z32.01 Pt presents today for a confirmati on of visit. has not been previously confirmed at another healthcare facility. Pt voiced that she is happy about this . TVUS today showed:Naveed P with Cardiac Activity. TAYE based on this US.TAYE:01/11 0Gestat ional Age: 7w 2dFHT:148 First trimester teaching provided.- --Foods and activities to avoid---We ight gain recommenda tions based on BMI---Safe meds---Lusi entation to practice-- -Delivery locations- --KEYONNA visit progressio n---Prenat al vitamins daily---To xoplasmosi s precaution s reviewed-- -[facility] Guide; What to expect on your maternity journey -- -S/S of SAB reviewed and when to seek care RTC for 1st OB, Labs, and Physical. --BMI:24.9 [id number] WOLF GUADARRAMA NP [address] [address] 07/22/2024 16:12:51 07/22/2024 16:55:54 Gestation period, 11 weeks 70450229 Z3A.11 screening 2437 90103 Z36.89 Normal 4003308 2 Z34.90 Pt comes in today for a New/First OB visit.Gest ation:11 w3 dEDD: -- PMH: Anxiety-- Medication s: Taking daily PNV, paxton supp for N/V and tylenol-- Previous OB History: n/a-- Mom/Sister s with hx of Pre-Eclamp kelli:denies -- History of Genital HSV:denies -- Genetic Questions in OB Episode Done-- Accepts [employer]. Discussed logging on to the [employer] portal to find Gender Results POC-- NOB labs done today-- Accepts [employer] -- RTC 4 weeks Guide: Given and reviewed. Toxoplasmo sis precaution s reviewed. Reviewed office visit schedule during . Reviewed Quickening and normal FHTs. Carrier de tection, molecular genetics 1307321 Z14.8 [id number] WOLF GUADARRAMA NP [address] [address] 08/19/2024 16:40:21 08/21/2024 12:29:30 Normal 47757930 Z34.90 Pt is here for a KEYONNA [...] for pre-term labor. Gestation period, 15 weeks 6161592 Z3A.15 declines AFP will offer again at next appt. [id number] WOLF GUADARRAMA NP [address] [address] 09/07/2024 15:50:39 09/07/2024 16:37:32 Normal 93500233 Z34.92 Pt is here for a KEYONNA [...] for pre-term labor. Gestation period, 18 weeks 48255987 Z3A.18 [id number] WOLF GUADARRAMA NP [facility] [address] [place] [address] 09/30/2024 15:30:33 10/03/2024 14:06:30 Normal 33504321 Z34.90 Pt is here for a KEYONNA [...] for pre-term labor. Gestation period, 21 weeks 79392080 Z3A.21 Backache 492678113 O99.8 91 M54.9 [id number] WOLF GUADARRAMA NP [facility] [address] [place] [address] 10/21/2024 14:10:22 10/21/2024 14:50:59 Gestation period, 24 weeks 383351234 Z3A.24 Normal 1059734 2 Z34.92 Pt is here for a KEYONNA appointmen t. She is taking vitamins. She has no complaints or questions. Reports feeling movement. Denies vaginal bleeding, abdominal cramps, N/V, contractio ns, or LOF. Denies headache, vision changes, swelling of hands or face, and epigastric pain. Discussed PTL and precaution s given. There are no identifiab le risk factors for pre-term labor. [id number] WOLF GUADARRAMA NP [facility] [address] [place] [address] 11/18/2024 14:41:31 11/19/2024 15:28:39 Normal 87181376 Z34.92 Pt is here for a KEYONNA [...] for pre-term labor. Gestation period, 28 weeks 00829712 Z3A.28 screening 2437 70630 Z36.89 [id number] WOLF GUADARRAMA NP [facility] [address] [place] [address] 11/26/2024 16:40:34 11/29/2024 05:26:51 Gestational diabetes mellitus complicating [id number] 9106 O24.419 *GDM education completed. Discussed diet- [...] CDC website for further info High risk 0701 0009 O09.90 Pt is here for a KEYONNA appointabena rowan. She is taking vitamins. She has no complaints or questions. Reports feeling movement. Denies vaginal bleeding, abdominal cramps, N/V, contractio ns, or LOF. Denies headache, vision changes, swelling of hands or face, and epigastric pain. Discussed PTL and precaution s given. There are no identifiab le risk factors for pre-term labor. Gestation period, 29 weeks 59790121 Z3A.29 [id number] WOLF GUADARRAMA NP [facility] [address] [place] [address] 12/02/2024 14:30:01 12/04/2024 14:24:45 High risk 96012146 O09.90 Pt is here for a KEYONNA [...] for pre-term labor. Gestation period, 30 weeks 55954729 Z3A.30 Gestationa l diabetes mellitus 17619957 O24.410 Health Concerns Section Related Observation LastModified by Organization Detai ls LastModified Time None Recorded Concern Status LastModified by Organization Details LastModified Time None Recorded Advance Directives Directive None Recorded Payers Insurance Date Sequence Insurance Name Policy Number Policy Rivers Covered Member ID Rivers Member ID Guarantor Name 11/23/2024 1 [facility] (MEDICAID REPLACEMENT - HMO) Lani Ho [id number] Lani Ho 11/18/2024 1 [facility] [id number] Lani Ho [id number] Lani Ho 12/16/2024 1 [place] Lani Ho [id number] Lani Ho 11/23/2024 [facility] (MEDICAID HMO) [id number] Lani Ho [id number] Lani Ho 12/16/2024 1 [facility] (MEDICAID HMO) [id number] Lani Ho [id number] Lani Ho 11/18/2024 1 [place] [employer] Lani Ho [id number] Lani Ho Notes Date Note Type Note Provider Name and Address Organization Details Recorded Time 09/30/2024 text/html Lani is 21.3 weeks. She is here for a routine visit. She reports normal movement and she is taking vitamins. Anatomy scan was done at [facility]. WOLF GUADARRAMA NP [address] [facility], [place], [address], [facility] [employer] 10/01/2024 10:29:53 10/21/2024 text/html Patient is here [...] or visual disturbances. WOLF GUADARRAMA NP [address] [place], [address], [facility] [employer] [facility] IV 10/21/2024 14:38:09 11/18/2024 text/html Patient is [...] Glucose @ 1:48 p.m. WOLF GUADARRAMA NP [address] [place], [address], [facility] [employer] [facility] IV 11/18/2024 18:56:16 11/26/2024 text/html Patient is [...] has no concerns. WOLF GUADARRAMA NP [address] [place], [address], [facility] [employer] IV 11/26/2024 17:58:04 12/02/2024 text/html Patient is [...] has no concerns. WOLF GUADARRAMA NP [address] [place], [address], [facility] [employer] IV 12/03/2024 14:55:08 OBGyn Episode Ob Episode Information Episode Created Date Number of Fetuses Patient Bloodtype Patient rh Status Prepregnancy Weight lbs Domestic Partner Domestic Partner Phone Father Name Audio Visual Facilities Engineer Status 07/22/20 24 1 B Negative CLOSED Fetus Data First Name Last Name Admitted to NICU Weight (g) Sex Living Outcome Pediatric Complications Fetus ID Race Codes Race Delivery Type [id number] Problems Problem Notes Problem Name Start Date End Date Resolution Snomed Code Not e RhD negative 11/18/2024 [id number] RH (D) NIPT detected will need Rhogam PP Large for gestation age fetus 11/18/20241995152403547 EFW 98%tile on 10/22 Echogenic bowel 11/19-94%tile Rubella non-immune 11/18/2024 585992742 Gestational diabetes mellitus 11/26/2024 31496330 Abnormal finding on screening of mother 11/18/2024 645548166 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) Taye Calculation [...] in lbs Pre/Post Dialysis Refused With clothes 164.626906252462 BP Diastolic BP Location Tested BP Systolic [...] in lbs Pre/Post Dialysis Refused With clothes 164.040615964017 BP Diastolic BP Location Tested BP Systolic [...] in lbs Pre/Post Dialysis Refused With clothes 165.506282403601 BP Diastolic BP Location Tested BP Systolic [...] Type Weight in lbs Pre/Post Dialysis Refused 171.503566728911 BP Diastolic BP Location Tested BP Systolic [...] in lbs Pre/Post Dialysis Refused With clothes 175.739372712422 BP Diastolic BP Location Tested BP Systolic [...] Type Weight in lbs Pre/Post Dialysis Refused 178.605868201486 BP Diastolic BP Location Tested BP Systolic BP Type 70 110 sitting Fetus Heart Rate Present A 150 Present Fetus Movement A Yes Comments Gtt and 3T labs today. EFW 9 8%tile on 10/22 posterior placenta. Echogenic bowel. CMV and Parvo titer drawn by M. patient reports increased anxiety due to US findings, declines medication and/or counseling at this time. To readdress at next appt. RTC in 2 wks Flowsheet Date 11/26/2024 Lozada Score Blood Edema Fundus Height Fundus Units Glucose Ketones Leukocytes Nitrite Labor Signs Protein Cervic Dilation Cervic Effacement Cervic Station none Type Weight in lbs Pre/Post Dialysis Refused 180.794745732651 BP Diastolic BP Location Tested BP Systolic [...] Type Weight in lbs Pre/Post Dialysis Refused 177.950133331985 BP Diastolic BP Location Tested BP Systolic [...]
--- OUTSIDE RECORDS SUMMARY | 2025-03-31 21:25 | XMS_ITS | Data Portability ---
Author Organization [facility], [facility] Address [address] [place] [address] Assessment No assessment recorded. Plan of Treatment Reminders Order Date Submit Date Provider Last Modified By Organization Details Last Modified Time Details Appointments None recorded. Lab None recorded. Referral None recorded. Procedures None recorded. Surgeries None recorded. Imaging None recorded. Medication Orders Medrol (Rex) 4 mg tablets in a dose pack 2022 023 [facility], [address] [place] [address], [id number], 16:54:18 cyclobenzap rine 5 mg tablet 2022 023 [facility], [facility] [place], [place], [id number], 16:54:27 Patient TargetsNo targets recorded. Patient InstructionsNo instructions recorded. Reason for Referral None Reported. Results Created Date Observation Date Name Description Value Unit Range Abnormal Flag Note LastModifiedBy Organization Detail LastModifiedTime Result Notes None recorded. Problems Name Problem SNOMED Code Status Onset Date Resolution Date Notes Provider Name and Address Organization Details Recorded Time Neck pain 40163502 Active 12/19/19 23 [facility] 16:44:06 Problem Notes None [...] sex Body mass index (BMI) Body height Respiratory rate Body temperature Heart rate Oxygen saturation Oxygen saturation in Arterial blood by Pulse oximetry Systolic blood pressure Diastolic blood pressure Provider Name and Address Organization Details Last Updated DateTime 3 58342.5 9 g 75 % 24 kg/m2 172.72 cm 17 /min 98.7 [degF] 75 /min 100 % 100 % 120 mm[Hg] 70 mm[Hg] Analilia Lemon [facility] 16:21:52 Social History Question Answer Notes LastModified by Organizat ion Details LastModified Time Tobacco Smoking Status Never Smoker Analilia Lemon [facility] 12/19/2022 16:19:49 What Is Your Level Of Caffeine Consumption? None [email or web address] Information not available 12/19/2022 In The 14 Days Before Symptom Onset, Have You Had Close Contact With A Laboratory-confirm ed COVID-19 While That Case Was Ill? No [email or web address] Information n ot available 12/19/2022 In The 14 Days Before Symptom Onset, Have You Had Close Contact With A Person Who Is Under Investigation For COVID-19 While That Person Was Ill? No [email or web address] Information not available 12/19/2022 What Was The Date Of Your Most Recent Tobacco Screening? 12/19/2022 [email or web address] Information not available 12/19/2022 Have You Recently Traveled Abroad? No [email or web address] Information not available 12/19/2022 Sex: Unknown Functional Status Question Answer Note LastModified by Organizat ion Details LastModified Time Do you use any illicit or recreational drugs? No [email or web address] Information not available 12/19/2022 Do you or have you ever used any other forms of tobacco or nicotine? Yes [email or web address] Information not available 12/19/2022 What is your level of alcohol consumption? None [email or web address] Information not available 12/19/2022 Do you or have you ever used smokeless tobacco? Never used smokeless tobacco [email or web address] Information not available 12/19/2022 Do you or have you ever used e-cigarettes or vape? Former user of electronic cigarettes quit about 4 months ago [email or web address] Information not available 12/19/2022 Mental Status None recorded. Family History Nothing Reported. Medical History No medical history recorded. Gynecological History Statement/Question Response Date of LMP 12/04/2022 Obstetrics History GPAL:G 0 P 0 0 0 0 Immunizations Vaccine Type Date Status Note Provider Nam e and Address Organization Details Recorded Time Hib, unspecified formulation 5 desiree Lilly null, [facility] 06/20/2023 14:41:02 Hib, unspecified formulation 5 desiree Lilly null, [facility] 06/20/2023 14:41:02 Hib, unspecified formulation 5 desiree Lilly null, [facility] 06/20/2023 14:41:02 HPV9 8 desiree Lilly null, [facility] 06/20/2023 14:41:02 HPV9 9 desiree Lilly null, [facility] 06/20/2023 14:41:02 IPV 5 desiree Lilly null, [facility] 06/20/2023 14:41:02 IPV 5 desiree Lilly null, [facility] 06/20/2023 14:41:02 MMR 5 desiree Lilly null, [facility] 06/20/2023 14:41:02 MMR 9 [...] 06/20/2023 14:41:02 pneumococcal conjugate PCV 7 5 desiree Lilly null, [facility] [...] Hospital 06/20/2023 14:41:02 meningococcal MCV4P 8 desiree Rebeccaandrea Lilly null, [facility] 06/20/2023 14:41:02 meningococcal MCV4P 0 desiree Lilly null, [facility] 06/20/2023 14:41:02 DTaP 5 desiree Rebecca Lilly null, [facility] 06/20/2023 14:41:02 DTaP 5 desiree Rebecca Maxx null, [facility] 06/20/2023 14:41:02 DTaP-Hep B-IPV 5 desiree Rebecca Lilly dave, [facility] 06/20/2023 14:41:02 Influenza, split virus, quadrivalent, PF 8 desiree Rebecca Maxx dvae, [facility] 06/20/2023 14:41:02 Past Encounters Encounter ID Performer Location Encounter Start Date Encounter Closed Date Diagnosis/Indication Diagnosis SNOMED-CT Code Diagnosis ICD10 Code Diagnosis Note [id number] Sarbjit Jenkins NP [address] [id number] 12/19/2022 15:59:56 12/19/2022 16:54:35 Neck pain 82331751 M54.2 No radiculopa thy.Trigge r point? Apply [...] Member ID Rivers Member ID Guarantor Name 05/12/2024 1 [facility] (MEDICAID HMO) [id number] Lani Ho [id number] Lani Ho Notes Date Note Type Note [...]
--- OUTSIDE RECORDS SUMMARY | 2025-03-31 21:25 | XMS_ITS ---
Author Organization Unknown Address [address] [place] [phone] Phone Care Team Providers Care Buckle Stapler Name Role Phone VIRAL Brody Attending Unavailable [...] MICR O - Collect Date/Time: 06/03/2024 15:21 [facility] ID: [id number] [address] [place] [address], [id number] LOINC: Test Value Unit Reference Range Code [...] em Smoking History Never smoker (Never Smoked) 330334038 SNOMED CT Sex Female Sexual Orientation Straight or Heterosexual 70704402 SNOMED CT Gender Identity Female 84692895817735 [address] Vital Signs Vital Sign Value Unit [place] Value [place] Unit Date/Time Recent/Initial? Code Code System Body Mass Index 25.85 kg/m2 06/03/2024 14:31 Initial 82578 -5 [facility] Body Mass Index Percentile 82 % 06/03/2024 14:31 Initial 39096 -9 LOINC Systolic Blood Pressure 118 mm[Hg] [...] 68.00 in 06/03/2024 14:31 Initial 8302- 2 [facility] O2 Saturation 100 % 2023 14:31 Initial 73400 -5 [facility] Pulse 93.0 /min 06/03/2024 14:31 Initial 8867- 4 [facility] Temperature 36.7 Antonella 98.0 F 06/03/20 14:31 Initial 8310- 5 [facility] Weight 77.11 kg 170.00 lbs 06/03/2024 14:31 Initial 05651 -7 [facility] Medications Medication Start Date End Date Route Frequency Dose Code Code System Medication Instructions Home Meds ZyrTEC Allergy 10MG Oral Capsule, Liquid Filled 03/12/2023 Unknown By Mouth Daily 1 CAPSULE 0828758 RxNorm 1 CAPSULE By Mouth Daily Fluticasone 0.05MG/1Actuatio n Nasal [place] 03/12/2023 Unknown Nasal Daily 1 Sprays 8558915 RxNorm 1 Spra ys Nasal Daily Azithromycin 500MG Oral Tablet 06/04/2024 Unknown By Mouth x1 NOW 2 TABLET 314163 RxNorm 2 TABLET By Mouth x1 NOW [...] sex practices. 3. -Keep follow up with [facility] for next week. -Given handouts for [...] up. This examination was transcribed using the [employer] voice recognition system without a human workcell operator. To expedite patient care, this report has not been adjusted for typographical, or medical, or syntax by a trained medical service representative. Hospital Discharge Instructions Should you have any questions prior to discharge, please contact a member of your healthcare team. If you have left the hospital and have any questions, please contact your primary care physician. Reason For Referral No Data Found Problems Problem Start Date Resolved Date Status Code Code System SEASONAL ALLERGY active 383732799 SNO MED-CT FAMILY PLANNING 06/20/2020 active 294212598 SNO MED-CT BITE OF INSECT active 974437331 SNOME D-CT ES OF VAGINA 08/07/2022 active 51736006 S NOMED-CT MENORRHAGIA active 629970991 SNOMED-C T PAINFUL NECK active 17950816 SNOMED- CT ADHD OF CHILDHOOD 07/22/2019 resolved 785641998 S NOMED-CT SEASONAL NASAL ALLERGY 07/22/2019 resolved 418990 001 SNOMED-CT HISTORY OF CHICKENPOX 07/22/2019 resolved 5459404 08 SNOMED-CT Allergies and Adverse Reactions Allergy Substance Reaction Severity Start Date Concern Status Co de Code System Active seasonal allergies Active No Known Drug Allergies Active 066861801 SNOMED-CT No Known Drug Allergies Active 437136852 SNOMED-CT Plan of Treatment Description Due Date Details Instructions DEPRESSION SCREENING DUE 06/20/2021 Future Order Description Future Order Date Futu re Order Loinc: TRICHOMONAS VAGINALIS FEMALE RNA QUAL LOINC: 90371-7 GC PCR [facility] 06/03/2024 LOINC: 87954-1 CHLAMYDIA PCR [facility] 06/03/2024 LOINC: 21552- 5 BACTERIAL VAGINOSIS RAPID TEST 06/03/2024 LOINC: 6410-5 CULTURE YEAST, WITH IDENTIFICATION 06/03/2024 LOINC: 18368-8 Encounters Encounter Diagnosis Start Date Code Code Sys tem Acute vaginitis 06/03/2024 15541895 SNOMED-CT Personal Care Team Section Performer Name Performer Role Active Date Inactive Da te Progress Notes [facility] 06/03/2024 15:50 Date of Service: [...] April. She has an appointment scheduled with [facility] for an OBGYN next week. She [...] sex practices. 3. -Keep follow up with [facility] for next week. -Given handouts for [...] up. This examination was transcribed using the [employer] voice recognition system without a human workcell operator. To expedite patient care, this report has not been adjusted for typographical, or medical, or syntax by a trained medical service representative. Meds Given This Visit: Meds ordered and administered this visit: No Current Medications Available Discharge Med List: Discharge Medications Medication Special Instructions Start Date Prescribing MD Fluticasone 0.05MG/1Actuation Nasal [place] 1 Sprays Nasal Daily 03/12/2023 Blanco Gallego ZyrTEC Allergy 10MG Oral Capsule, Liquid Filled 1 CAPSULE By Mouth Daily 03/12/2023 Blanco Gallego
--- OUTSIDE RECORDS SUMMARY | 2025-03-31 21:25 | XMS_ITS | Clinical Summary ---
Author Organization [facility] Address [address] [place] [address] Care Team Providers Care Buckle Stringer Name Role Phone Faustino Matta MD Primary Care Provider [phone] Source Comments [facility],non-owned Affiliates and Associated Physician Practices is amultiple site organization consisting of ambulatory clinics and hospital sitesin [place], [place], [place] and [place]. This disclosure is being madepursuant to the Care Everywhere program and may not contain all information available regarding this patient. Last updated 18.[facility] Allergies No known active allergies Medications * Be aware that medications may not be up to date on this document. Alwaysverify current medications with the patient. 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 Gender Identity Not on file Sexual Orientation [...] - 2023-2 5 season) 2024 03/16/2021, 02/21/2021 OB-ONE HOUR GLUCOSE 11/01/2024 OB-TDAP CURRENT 11/08/2024 DEPRESSION SCREENING 11/11/2024 OB-RHOGAM INJECTION 11/15/2024 OB-GROUP B STREP SCREEN 01/03/2025 INFLUENZA VACCINE (Season Ended) 2025 02/26/2018, 08/24/2010, 10/31/2006 ZOSTER VACCINE (1 of 2) 2054 HIB [...] over 60 yrs (No Doses Required) Completed Insurance [facility] Care Teams Buckle Stringer Relationship Specialty Start Date End Date Faustino Matta MD [address] [place] [id number] PCP - General Pediatrics 08/05/12
--- OUTSIDE RECORDS SUMMARY | 2025-03-31 21:26 | XMS_ITS ---
Author Organization Unknown Address [address] [place] [phone] Phone Care Team Providers Care Awning Finisher Name Role Phone ATIYA Lezama MD Attending [...] em Smoking History Never smoker (Never Smoked) 404020584 SNOMED CT Sex Female Sexual Orientation Straight or Heterosexual 15665461 SNOMED CT Gender Identity Female [id number] [address] Medications Medication Start Date End Date Route Frequency Dose Code Code System Medication Instructions Home Meds Radha 28 3MG-0.02MG Oral Tablet 09/12/2022 12/25/2022 By Mouth Once a day 1 TABLET RxNorm 1 TABLET By Mouth Once a day Medrol Dosepak 4MG Oral Tablet 12/25/2022 02/20/2023 By Mouth As Directed 1 PACK 304308 RxNorm 1 PACK By Mouth As Directed Methocarbamol 750MG Oral Tablet 12/25/2022 03/12/2023 By Mouth As needed every 8 hr 229117 RxNorm 1-2 TABLET By Mouth As needed every 8 hr Anel-28 30 MCG-0.15 MG; NA Oral Tablet 12/25/2022 03/12/2023 By Mouth Daily 1 TABLET 547487 RxNorm 1 TABLET By Mouth Daily Macrobid 100MG Oral Capsule 02/20/2023 03/12/2023 By mouth Twice a day 1 TABLET 432989 RxNorm 1 TABLET By mouth Twice a day X 7 DAYS Pyridium 100MG Oral Tablet 02/20/2023 03/12/2023 By mouth As needed every 8 hr 1 TABLET 9860377 RxNorm 1 TABLET By mouth As needed every 8 hr for urinary pain ZyrTEC Allergy 10MG Oral Capsule, Liquid Filled 03/12/2023 Unknown By Mouth Daily 1 CAPSULE 2955924 RxNorm 1 CAPSULE By Mouth Daily Fluticasone 0.05MG/1Actuati on Nasal [place] 03/12/2023 Unknown Nasal Daily 1 Sprays 0576332 RxNorm 1 Spr ays Nasal Daily Azithromycin 500MG Oral Tablet 06/04/2024 Unknown By Mouth x1 NOW 2 TABLET 713456 RxNorm 2 TABLET By Mouth x1 NOW [...] Status Code Code System SEASONAL ALLERGY active 747636161 SNO MED-CT FAMILY PLANNING 06/20/2020 active 547911108 SNO MED-CT BITE OF INSECT active 147235685 SNOME D-CT ES OF VAGINA 08/07/2022 active 39438126 S NOMED-CT MENORRHAGIA active 200162104 SNOMED-C T PAINFUL NECK active 02451790 SNOMED- CT ADHD OF CHILDHOOD 07/22/2019 resolved 583024899 S NOMED-CT SEASONAL NASAL ALLERGY 07/22/2019 resolved 098990 001 SNOMED-CT HISTORY OF CHICKENPOX 07/22/2019 resolved 7176170 08 SNOMED-CT Allergies and Adverse Reactions Allergy Substance Reaction Severity Start Date Concern Status Co de Code System Active seasonal allergies Active No Known Drug Allergies Active 212200167 SNOMED-CT No Known Drug Allergies Active 467541404 SNOMED-CT Plan of Treatment Description Due Date Details Instructions DEPRESSION SCREENING DUE 06/20/2021 Personal Care Team Section Performer Name Performer Role Active Date Inactive David mccallum
--- OUTSIDE RECORDS SUMMARY | 2025-03-31 21:26 | XMS_ITS ---
Author Organization Unknown Address [address] [place] [address] [phone] Phone Care Team Providers Care Cable Coverer Name Role Phone TABATHA RODGERS Attending Unavailable [...] MICR O - Collect Date/Time: 07/31/2022 17:14 [facility] ID: [id number] [address] [place] [address], [phone] LOINC: Test Value Unit Reference Range Code [...] TEST - Colle ct Date/Time: 07/31/2022 17:12 [facility] ID: [id number] [address] [place] [address], [id number] LOINC: Test Value Unit Reference Range Code Code System Flag TEST PERFORMED URINE PREG (URINE) NEGATIVE LOT#: [id number] EXP DATE: 2023-10-10 QC: ACCEPTABLE Social History Type Status Start Date End Date Code Code Syst em Smoking History Never smoker (Never Smoked) 800316501 SNOMED CT Sex Female Sexual Orientation Straight or Heterosexual 85716700 SNOMED CT Gender Identity Female 83907427255872 [address] Vital Signs Vital Sign Value Unit [place] Value [place] Unit Date/Time Recent/Initial? Code Code System Body Mass Index 23.34 kg/m2 07/31/2022 16:59 Initial 23156 -5 LOINC Body Mass Index Percentile 71 % 07/31/2022 16:59 Initial 44921 -9 LOINC Systolic Blood Pressure 120 mm[Hg] 07/31/2022 16:59 Initial 8480- 6 LOINC Diastolic Blood Pressure 80 mm[Hg] 07/31/2022 16:59 Initial 8462- 4 [facility] Body Surface Area 1.79 m2 07/31/2022 16:59 Initial 3140- 1 INC Height 170.180 0 cm 67.00 in 07/31/2022 16:59 Initial 8302- 2 [facility] O2 Saturation 98 % 2021 16:59 Initial 42940 -5 [facility] Pulse 92.0 /min 07/31/2022 16:59 Initial 8867- 4 [facility] Temperature 36.8 Antonella 98.2 F 07/31/20 16:59 Initial 8310- 5 [facility] Weight 67.59 kg 149.00 lbs 07/31/2022 16:59 Initial 03622 -7 [facility] Medications Medication Start Date End Date Route Frequency Dose Code Code System Medication Instructions Home Meds predniSONE 50MG Oral Tablet 06/07/2022 07/31/2022 By Mouth Daily 1 TABLET 312424 RxNorm 1 TABLET By Mouth Daily Anel-28 30MCG-0.15MG-NA Oral Tablet 06/07/2022 09/12/2022 By Mouth Daily 1 TABLET 957751 RxNorm 1 TABLET By Mouth Daily Diflucan [...] 02/20/2023 By Mouth As Directed 1 PACK 148939 RxNorm 1 PACK By Mouth As Directed Methocarbamol 750MG Oral Tablet 12/25/2022 03/12/2023 By Mouth As needed every 8 hr 854440 RxNorm 1-2 TABLET By Mouth As needed every 8 hr [place]-28 30 MCG-0.15 MG; NA Oral Tablet 12/25/2022 03/12/2023 By Mouth Daily 1 TABLET 034039 RxNorm 1 TABLET By Mouth Daily Macrobid 100MG Oral Capsule 02/20/2023 03/12/2023 By mouth Twice a day 1 TABLET 025479 RxNorm 1 TABLET By mouth Twice a day X 7 DAYS Pyridium 100MG Oral Tablet 02/20/2023 03/12/2023 By mouth As needed every 8 hr 1 TABLET 7898654 RxNorm 1 TABLET By mouth As needed every 8 hr for urinary pain ZyrTEC Allergy 10MG Oral Capsule, Liquid Filled 03/12/2023 Unknown By Mouth Daily 1 CAPSULE 8778106 RxNorm 1 CAPSULE By Mouth Daily Fluticasone 0.05MG/1Actuati on Nasal [place] 03/12/2023 Unknown Nasal Daily 1 Sprays 4707321 RxNorm 1 Spr ays Nasal Daily Azithromycin 500MG Oral Tablet 06/04/2024 Unknown By Mouth x1 NOW 2 TABLET 628541 RxNorm 2 TABLET By Mouth x1 NOW [...] Status Code Code System SEASONAL ALLERGY active 007175206 SNO MED-CT FAMILY PLANNING 06/20/2020 active 888966754 SNO MED-CT BITE OF INSECT active 712342441 SNOME D-CT ES OF VAGINA 08/07/2022 active 36220046 S NOMED-CT MENORRHAGIA active 864378672 SNOMED-C T PAINFUL NECK active 92061187 SNOMED- CT ADHD OF CHILDHOOD 07/22/2019 resolved 072984348 S NOMED-CT SEASONAL NASAL ALLERGY 07/22/2019 resolved 830731 001 SNOMED-CT HISTORY OF CHICKENPOX 07/22/2019 resolved 0298775 08 SNOMED-CT Allergies and Adverse Reactions Allergy Substance Reaction Severity Start Date Concern Status Co de Code System Active seasonal allergies Active No Known Drug Allergies Active 727327666 SNOMED-CT No Known Drug Allergies Active 616349523 SNOMED-CT Plan of Treatment Description Due Date Details Instructions DEPRESSION SCREENING DUE 06/20/2021 Future Order Description Future Order Date Futu re Order Loinc: BACTERIAL VAGINOSIS RAPID TEST 07/31/2022 LOINC: 6410-5 CULTURE YEAST, WITH IDENTIFICATION 07/31/2022 LOINC: 05838-2 TRICHOMONAS VAGINALIS FEMALE RNA QUAL 2 LOINC: 66017-3 CHLAMYDIA/GC URINE RNA, TMA APTIMA 07/31/2022 LOINC: 5048-4 CULTURE URINE 07/31/2022 LOINC: 630-4 Encounters Encounter Diagnosis Start Date Code Code Sys tem Acute vaginitis 07/31/2022 53589550 SNOMED-CT Personal Care Team Section Performer Name Performer Role Active Date Inactive Da te Progress Notes [facility] 07/31/2022 18:10 Admission Date/Time: 07/31/2022 16:21 Convenient [...] NEGATIVE 07/31/2022 17:10 07/31/2022 17:12 final LOT#: [id number] 07/31/2022 17:10 07/31/2022 17:12 final EXP DATE: [...]
--- OUTSIDE RECORDS SUMMARY | 2025-03-31 21:26 | XMS_ITS ---
Author Organization Unknown Address [address] [place] [phone] Phone Care Team Providers Care Egg Breaking Machine Operator Name Role Phone ATIYA Lezama MD [...] em Smoking History Never smoker (Never Smoked) 268488344 SNOMED CT Sex Female Sexual Orientation Straight or Heterosexual 45732483 SNOMED CT Gender Identity Female 50389524090065 [address] Medications Medication Start Date End Date Route Frequency Dose Code Code System Medication Instructions Home Meds ZyrTEC Allergy 10MG Oral Capsule, Liquid Filled 03/12/2023 Unknown By Mouth Daily 1 CAPSULE 3874318 RxNorm 1 CAPSULE By Mouth Daily Fluticasone 0.05MG/1Actuatio n Nasal [place] 03/12/2023 Unknown Nasal Daily 1 Sprays 6054110 RxNorm 1 Spra ys Nasal Daily Azithromycin 500MG Oral Tablet 06/04/2024 Unknown By Mouth x1 NOW 2 TABLET 742892 RxNorm 2 TABLET By Mouth x1 NOW [...] Status Code Code System SEASONAL ALLERGY active 776733406 SNO MED-CT FAMILY PLANNING 06/20/2020 active 880765518 SNO MED-CT BITE OF INSECT active 898847372 SNOME D-CT ES OF VAGINA 08/07/2022 active 16718038 S NOMED-CT MENORRHAGIA active 823660981 SNOMED-C T PAINFUL NECK active 11485698 SNOMED- CT ADHD OF CHILDHOOD 07/22/2019 resolved 811534135 S NOMED-CT SEASONAL NASAL ALLERGY 07/22/2019 resolved 502210 001 SNOMED-CT HISTORY OF CHICKENPOX 07/22/2019 resolved 4232206 08 SNOMED-CT Allergies and Adverse Reactions Allergy Substance Reaction Severity Start Date Concern Status Co de Code System Active seasonal allergies Active No Known Drug Allergies Active 482971446 SNOMED-CT No Known Drug Allergies Active 509460462 SNOMED-CT Plan of Treatment Description Due Date Details Instructions DEPRESSION SCREENING DUE 06/20/2021 Personal Care Team Section Performer Name Performer Role Active Date Inactive Da xena
--- OUTSIDE RECORDS SUMMARY | 2025-03-31 21:26 | XMS_ITS ---
Author Organization Unknown Address [address] [place] [address] [phone] Phone Care Team Providers Care Skydiving Instructor Name Role Phone Blanco Gallego Attending Unavailable [...] em Smoking History Never smoker (Never Smoked) 982443894 SNOMED CT Sex Female Sexual Orientation Straight or Heterosexual 18445948 SNOMED CT Gender Identity Female 44285948489988 [address] Medications Medication Start Date End Date Route Frequency Dose Code Code System Medication Instructions Home Meds ZyrTEC Allergy 10MG Oral Capsule, Liquid Filled 03/12/2023 Unknown By Mouth Daily 1 CAPSULE 4254042 RxNorm 1 CAPSULE By Mouth Daily Fluticasone 0.05MG/1Actuatio n Nasal [place] 03/12/2023 Unknown Nasal Daily 1 Sprays 2085934 RxNorm 1 Spra ys Nasal Daily Azithromycin 500MG Oral Tablet 06/04/2024 Unknown By Mouth x1 NOW 2 TABLET 190829 RxNorm 2 TABLET By Mouth x1 NOW [...] Status Code Code System SEASONAL ALLERGY active 524579991 SNO MED-CT FAMILY PLANNING 06/20/2020 active 769083604 SNO MED-CT BITE OF INSECT active 739181412 SNOME D-CT ES OF VAGINA 08/07/2022 active 19381911 S NOMED-CT MENORRHAGIA active 957942264 SNOMED-C T PAINFUL NECK active 86046741 SNOMED- CT ADHD OF CHILDHOOD 07/22/2019 resolved 261286587 S NOMED-CT SEASONAL NASAL ALLERGY 07/22/2019 resolved 682383 001 SNOMED-CT HISTORY OF CHICKENPOX 07/22/2019 resolved 9504826 08 SNOMED-CT Allergies and Adverse Reactions Allergy Substance Reaction Severity Start Date Concern Status Co de Code System Active seasonal allergies Active No Known Drug Allergies Active 837401122 SNOMED-CT No Known Drug Allergies Active 322456009 SNOMED-CT Plan of Treatment Description Due Date Details Instructions DEPRESSION SCREENING DUE 06/20/2021 Personal Care Team Section Performer Name Performer Role Active Date Inactive Da xena
--- OUTSIDE RECORDS SUMMARY | 2025-03-31 21:26 | XMS_ITS ---
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 Code Code System Body Mass Index 21.85 kg/m2 06/07/2022 14:23 Initial 12802 -5 [facility] Body Mass Index Percentile 57 % 06/07/2022 14:23 Initial 24111 -9 [facility] Systolic Blood Pressure 118 mm[Hg] 06/07/2022 14:23 Initial 8480- 6 [facility] Diastolic Blood Pressure 72 mm[Hg] 06/07/2022 14:23 Initial 8462- 4 [facility] Body Surface Area 1.75 m2 06/07/2022 14:23 Initial 3140- 1 [facility] Height 171.450 0 cm 67.50 in 06/07/2022 14:23 Initial 8302- 2 [facility] O2 Saturation 99 % 2021 14:23 Initial 52487 -5 [facility] Pulse 107.0 /min 06/07/2022 14:23 Initial 8867- 4 [facility] Respiration 20 /min 06/07/20 14:23 Initial 9279- 1 [facility] Temperature 36.6 Antonella 97.8 F 06/07/20 14:23 Initial 8310- 5 [facility] Weight 64.23 kg 141.60 lbs 06/07/2022 14:23 Initial 59672 -7 [facility] Medications Medication Start Date End Date Route Frequency Dose Code Code System Medication Instructions Home Meds predniSONE 50MG Oral Tablet 06/07/2022 07/31/2022 By Mouth Daily 1 TABLET 574299 RxNorm 1 TABLET By Mouth Daily 30MCG-0.15MG-NA Oral Tablet 06/07/2022 09/12/2022 By Mouth Daily 1 TABLET 057770 RxNorm 1 TABLET By Mouth Daily Diflucan 150MG Oral Tablet 08/07/2022 09/12/2022 By Mouth x1 NOW 1 TABLET 622805 RxNorm 1 TABLET By Mouth x1 NOW FOR MARCH REPEAT IN 72 HOURS Radha 28 3MG-0.02MG Oral Tablet 09/12/2022 12/25/2022 By Mouth Once a day 1 TABLET RxNorm 1 TABLET By Mouth Once a day Medrol Dosepak 4MG Oral Tablet 12/25/2022 02/20/2023 By Mouth As Directed 1 PACK 580164 RxNorm 1 PACK By Mouth As Directed Methocarbamol 750MG Oral Tablet 12/25/2022 03/12/2023 By Mouth As needed every 8 hr 711338 RxNorm 1-2 TABLET By Mouth As needed every 8 hr Lexa-28 30 MCG-0.15 MG; NA Oral Tablet 12/25/2022 03/12/2023 By Mouth Daily 1 TABLET 609523 RxNorm 1 TABLET By Mouth Daily Macrobid 100MG Oral Capsule 02/20/2023 03/12/2023 By mouth Twice a day 1 TABLET 762151 RxNorm 1 TABLET By mouth Twice a day X 7 DAYS Pyridium 100MG Oral Tablet 02/20/2023 03/12/2023 By mouth As needed every 8 hr 1 TABLET [id number] RxNorm 1 TABLET By mouth As needed every 8 hr for urinary pain ZyrTEC Allergy 10MG Oral Capsule, Liquid Filled 03/12/2023 Unknown By Mouth Daily 1 CAPSULE 7045340 RxNorm 1 CAPSULE By Mouth Daily Fluticasone 0.05MG/1Actuati on Nasal [place] 03/12/2023 Unknown Nasal Daily 1 Sprays 1412969 RxNorm 1 Spr ays Nasal Daily Azithromycin 500MG Oral Tablet 06/04/2024 Unknown By Mouth x1 NOW 2 TABLET 124806 RxNorm 2 TABLET By Mouth x1 NOW [...] Status Code Code System SEASONAL ALLERGY active 800839640 [facility] MED-[facility] FAMILY PLANNING 06/20/2020 active 575389673 [facility] MED-[facility] BITE OF INSECT active 495743128 [facility] D-CT ES OF VAGINA 08/07/2022 active 62966901 S NOMED-CT MENORRHAGIA active 164630481 SNOMED-C T PAINFUL NECK active 65789399 SNOMED- CT ADHD OF CHILDHOOD 07/22/2019 resolved 865965555 S NOMED-CT SEASONAL NASAL ALLERGY 07/22/2019 resolved 240840 001 SNOMED-CT HISTORY OF CHICKENPOX 07/22/2019 resolved 6503674 08 SNOMED-CT Allergies and Adverse Reactions Allergy Substance Reaction Severity Start Date Concern Status Co de Code System Active seasonal allergies Active No Known Drug Allergies Active 643662545 SNOMED-CT No Known Drug Allergies Active 805259817 SNOMED-CT Plan of Treatment Description Due Date Details Instructions DEPRESSION SCREENING DUE 06/20/2021 Encounters Encounter Diagnosis Start Date Code Code Sys tem Well child visit 06/07/2022 072402448 SNOMED-CT Personal Care Team Section Performer Name Performer Role Active Date Inactive Da te Progress Notes [facility] 06/07/2022 15:22 All Demographics Patient Name Age Sex Visit Number Admission Date/Time Attending Physician Date of Service Room and Bed Emergency Contact NELA MANZANARES 2005 16 years Female [id number] 06/07/2022 14:22 Julián Simeon 06/07/2022 402 06/07/2022 14:25 Accompanied By: Parent Parent, mother X. Parent, father Guardian Relative director of employer services Caregiver Family Protective services Friend Healthcare provider Law enforcement Parcel Post Order Clerk / EMS Spouse / SO Other: Preferred Language: Mohawk. Vital Signs: This Visit Date/Time BP (mm/Hg) [...] environment active No Known Drug Allergies medication [id number] Nutrition X. Daily fruits and vegetables Iron [...] ALL CAPITALIZED = Focus area for this [facility] Visit Constitutional: None. EYES: None. Head, EARS, NOSE, AND THROAT: None. CARDIOVASCULAR: None. RESPIRATORY: None. GASTROINTESTINAL: None. GENITOURINARY: None. MUSCULOSKELETAL: None. SKIN: None. NEUROLOGICAL: None. Other: None. PHYSICAL EXAMINATION ALL CAPITALIZED and = Focus Area for this [facility] Visit GENERAL: x Well-appearing adolescent x Normal [...] Record reviewed Up-to-date for age Administered Today: [place] Screening Depression Screening (annually) Screening Tool Used: [...] year Next Visit: Referral to: 16 y/o [facility] - Anticipatory guidance and bright futures discussed. Discussed control methods and will start patient on Anel. Patient to notify office if she is having any side effects. Patient states she is having anxiety, offered multiple options for managing anxiety, patient declines at this time.
--- OUTSIDE RECORDS SUMMARY | 2025-03-31 21:27 | XMS_ITS | Data Portability ---
Author Organization [facility] [place] Address [address] [place] [address] Assessment No assessment recorded. Plan of Treatment Reminders Order Date Submit Date Provider Last Modified By Organization Details Last Modified Time Details Appointments ANXIETY/D EPRESSION 2024 02:15P Dalton BRIGGS MD Not available Not available Not available Lab None recorded. Referral None recorded. Procedures None recorded. Surgeries None recorded. Imaging non-stres s test 2024 025 [email or web address] [address], [address], [place], [address], 01/19/2025 02:43:02 US, obstetric , biophysic al profile + non-stres s test 2024 025 [email or web address] [address], [address], [place], [address], 01/18/2025 18:08:11 Medication Orders Slynd 4 mg (28) tablet 2024 025 [id number], [address], [place], [place], [id number], 03/15/2025 12:18:53 Patient TargetsNo targets recorded. Patient InstructionsNo instructions [...] t Abnor mal: No Resul ting Lab: [facility] [address] [facility] [address] Tel: [phone] CULTU RE ----- ----- ----- --- No growt h in 1 day (dete ction level of 10,00 0 colon ies / ml.) Not Available [facility] (Lab) [address], [place], [address], 01/03/2025 23:55:30 01/12/20 25 01/11/2025 CULTU RE: [...] t Abnor mal: Yes Resul ting Lab: [facility] [address] [facility] [address] Tel: CULTU RE ----- ----- ----- --- [...] at high risk for anaph ylaxi s. Susce ptibi lity testi ng is not neces hugo for these drugs . Not Available [facility] (Lab) [address], [place], [address], 01/15/2025 16:18:09 12/30/19 25 12/30/2024 non-s tress test No observ ation record ed. [address], [place], [address], 01/01/2025 13:38:09 01/12/20 25 01/11/2025 non-s tress test No observ ation record ed. [facility] [address], [place], [address], 01/11/2025 11:07:08 01/12/20 25 01/11/2025 US, obste tric, follo w-up No observ ation record ed. [email or web address] [facility] [address], [place], [address], 01/11/2025 17:20:12 01/12/20 25 01/11/2025 US, obste tric, bioph ysica l profi le + non-s tress test No observ ation record ed. [email or web address] [facility] [address], [place], [address], 01/11/2025 17:20:21 01/12/20 25 01/11/2025 US, obste tric, follo w-up No observ ation record ed. [address] [facility], [place], [address], 01/11/2025 22:14:29 01/19/20 25 01/18/2025 US, obste tric, bioph ysica l profi le + non-s tress test No observ ation record ed. [email or web address] [facility] [address], [place], [address], 01/18/2025 18:13:15 01/19/20 25 01/18/2025 US, obste tric, bioph ysica l profi le + non-s tress test No observ ation record ed. [email or web address] [address], [place], [address], 01/18/2025 14:29:09 01/19/2001/18/2025 non-s tress test No observ ation record ed. [email or web address] [facility] [address], [place], [address], 01/18/2025 14:40:38 01/24/20 25 01/23/2025 non-s tress test No observ ation record ed. [address] [address], [place], [address], 01/26/2025 15:08:47 01/24/2001/23/2025 non-s tress test No observ ation record ed. [address] [facility], [place], [address], 01/26/2025 15:08:13 Result Notes None recorded. Problems Name Problem SNOMED Code Status Onset Date Resolution Date Notes Provider Name and Address Organization Details Recorded Time Pregnanc y 15576445 Completed 202402/02/2025 Yue Chandlre [facility], [facility] 19:59:31 Klinefel ter's syndrome , XXY 024444167 Completed High risk on NIPT; declined amniocen tesis; genetic testing at delivery TRINI RODRIGUEZ MD [address], [place], [address], [facility] 22:12:52 Large for gestatio n age fetus 294916770 Completed 94% at 11/2024 [facility] TRINI RODRIGUEZ MD [address], [place], [address], [facility] 22:40:35 Cytomega lovirus antibody screenin g Completed Positive per [facility]; echogeni c bowel on 3T US, resolved on later scan; twice weekly antenata l testing per M TRINI RODRIGUEZ MD [address], [place], [address], [facility] 5 22:12:30 Gestatio nal diabetes mellitus 94791249 Completed TRINI RODRIGUEZ MD [address], [place], [address], [facility] 5 22:40:11 Gestatio nal diabetes mellitus 49827284 Active TRINI RODRIGUEZ MD [address], [place], [address], [facility] 5 22:40:11 Cytomega lovirus antibody screenin g Active Positive per [facility]; echogeni c bowel on 3T US, resolved on later scan; twice weekly antenata l testing per [facility] TRINI RODRIGUEZ MD [address], [place], [address], [facility] 5 22:40:[address]'s syndrome , XXY 565205157 Active High risk on NIPT; declined amniocen tesis; genetic testing at delivery TRINI RODRIGUEZ MD [address], [place], [address], [facility] 5 22:40:36 Large for gestatio n age fetus 039036222 Active 94% at 11/2024 [facility] TRINI RODRIGUEZ MD [address], [place], [address], [facility] 5 22:40:38 Problem Notes None recorded. Procedures Surgical History Date Name Laterality Status Provider Name and Address Organization Details Recorded Time 3 Appendectomy completed Zelda Wang [facility] 12/15/2024 13:12:49 Imaging Results Imaging Date Name Status LastModified by Organiz ation Details LastModified Time 12/30/2024 non-stress test completed [id number] [facility] [address], [place], [address], 01/01/2025 13:38:09 01/11/2025 non-stress test completed [email or web address] [facility] [address], [place], [address], 01/11/2025 11:07:08 01/11/2025 US, obstetric, follow-up completed [email or web address] [facility] [address], [place], [address], 01/11/2025 17:20:12 01/11/2025 US, obstetric, biophysical profile + non-stress test completed [email or web address] [facility] [address], [place], [address], 01/11/2025 17:20:21 01/11/2025 US, obstetric, follow-up completed [email or web address], [place], [address], 01/11/2025 22:14:29 01/18/2025 US, obstetric, biophysical profile + non-stress test completed [email or web address] [facility] [address], [place], [address], 01/18/2025 18:13:15 01/18/2025 US, obstetric, biophysical profile + non-stress test completed [email or web address] [address], [place], [address], 01/18/2025 14:29:09 01/18/2025 non-stress test completed [email or web address] [facility] [address], [place], [address], 01/18/2025 14:40:38 01/23/2025 non-stress test completed [id number] [facility] [address], [place], [address], 01/26/2025 15:08:47 01/23/2025 non-stress test completed [id number] [facility] [address], [place], [address], 01/26/2025 15:08:13 Procedure Notes None recorded. Medical [...] TO TEST BLOOD SUGAR FOUR TIMES DAILY 03/01 completed Not Available Not Available Not Available cephalexin 500 mg capsule TAKE 1 CAPSULE BY MOUTH EVERY 6 HOURS FOR 7 DAYS 12/15 completed Not Available Not Available Not Available + DHA active Not Available Not Available Not Available OneTouch Ultra2 Meter USE DIRECTED TO TEST BLOOD SUGAR 03/01 completed Not Available Not Available Not Available OneTouch Delica Plus Lancet 33 gauge USE TO TEST BLOOD SUGAR FOUR TIMES DAILY 03/01 completed Not Available Not Available Not Available Slynd 4 mg (28) tablet Take 1 tablet every day by oral route. 2024 active Not Available Not Available Not Avai lable Vitals Date Recorded Body height Body mass index (BMI) Body mass index (BMI) Percentile per age and sex Body weight Systolic blood pressure Diastolic blood pressure Provider Name and Address Organization Details Last Updated DateTime 5 172.72 cm 28.3 kg/m2 89 % 89251.1 8 g 116 mm[Hg] 77 mm[Hg] DONI Larsen [facility] 5 14:30:57 Date Recorded Body height Body mass index (BMI) Body mass index (BMI) Percentile per age and sex Body weight Systolic blood pressure Diastolic blood pressure Provider Name and Address Organization Details Last Updated DateTime 5 172.72 cm 24.3 kg/m2 73 % 03287.7 8 g 117 mm[Hg] 85 mm[Hg] [facility] 12:57:23 Date Recorded Body height Provider Name an d Address Organization Details Last Updated DateTime 03/15/2025 172.72 cm Josephine Castro [facility] 03/15/2025 11:55:34 Date Recorded Body mass index (BMI) Percentile per age and sex Body mass index (BMI) Body weight Systolic blood pressure Diastolic blood pressure Provider Name and Address Organization Details Last Updated DateTime 03/15/2025 72 % 24.2 kg/m2 58512.1 9 g 125 mm[Hg] 81 mm[Hg] Zelda [facility] 12:02:44 Social History Question Answer Notes LastModified by Organizat ion Details LastModified Time Do You Have An Advance Directive? No Information n ot available 12/15/2024 How Many Years Have You [...] Or The Highest Degree You Have Received? [id number] Information not available 12/15/2024 Are There Any Guns Present In Your [...] 12/15/2024 Do You Use Sunscreen Routinely? Yes [email or web address] Information not available 12/30/2024 Have You Used IV Drugs? No Information not available 12/15/2024 Sex: Unknown Functional Status Question Answer Note LastModified by Organizat ion Details LastModified Time Do you use any illicit or recreational drugs? No Information not available 12/15/2024 What is your level of alcohol consumption? None Information not available 12/15/2024 Are you able to walk? YESWOREST Information not available 12/15/2024 What is your occupation? na [email or web address] Information not available 12/30/2024 What is your exercise level? Occasional Information not available 12/15/2024 Mental Status Question Answer Note LastModified by Organization D etails LastModified Time Do you feel stressed (tense, restless, nervous, or anxious, or unable to sleep at night)? [id number] Information not available 12/15/2024 Family History Relationship Description Onset Age of this Age Resolved Age Notes LastModified by Organization Details LastModified Time Unspecified Relation Family history unknown Not available 2024 13:12:28 Medical History Condition Response Allergies (Food, seasonal, environmental ) N Other Y Drug/Latex Allergies/Reactions N Breast Cancer N Blood Transfusion N Lung Disease N Dermatologic Disorders N Defects or Inherited Disease Y Breast Problem N Gestational Diabetes Y Hematologic disorders N Anesthesia Complications N History of STI Y Deep Vein Thrombosis N Polycystic ovary syndrome N Anxiety Disorder N Autoimmune disease N Arthritis N Polyps N Infertility N History of abnormal pap N Acid Reflux (GERD) N Cancer N Varicosities N Stroke N Neurologic/Epilepsy N Endometriosis N High Cholesterol N Headaches N Fibromyalgia N Kidney Disease N Heart Problems N Thyroid Problems N Kidney or Bladder Problems N GI Problems N Eating Disorder [...] of Flow (days) 4 Current Control Method Breastfeedi ng/MCKINLEY Date of control 2004 Are cycles usually normal Y Sexually Active? Y Menses Monthly Y Age of first menstrual cycle 10 Date of Last Pap Smear Sexual Problems? N Desired Control Method BCPs LMP Approximate N Obstetrics History GPAL:G 1 P 1 0 0 1 Type Value Full Term 1 Living 1 Total 1 Past Encounters Encounter ID Performer Location Encounter Start Date Encounter Closed Date Diagnosis/Indication Diagnosis SNOMED-CT Code Diagnosis ICD10 Code Diagnosis Note [id number] Tod Briggs MD [facility] [address],[facility] [[email or web address] [place] [address] 12/15/2024 11:23:34 12/15/2024 12:36:18 Gestational diabetes mellitus 08116248 O24.410 Z3A.32 [id number] Tod Briggs MD [facility] [address],[facility] [[email or web address] [place] [address] 12/15/2024 11:26:10 12/15/2024 13:53:08 Routine care 784448272 Z34.03 [id number] TRINI RODRIGUEZ MD [facility] [address],[facility] [[email or web address] [place] [address] 12/30/2024 17:03:09 12/31/2024 10:05:53 Gestational diabetes mellitus 85114299 O24.410 Z3A.32 - A1- good glycemic control History of cytomegalovirus infection 7669213915 01258787 Z86.19 - positive antibodies - records requested from [facility]- twice weekly testing per [facility] Klinefelte r's syndrome, XXY 835777569 Q98.0 - high risk on NIPT- declined amniocente sis- plan for cord blood at deliveryfo r confirmato ry testing Large for gestation age fetus 489027921 O36.63X0 - 94% at 11/2024 MFM scan Gestation period, 34 weeks 33664044 Z3A.34 - all outside scans and labs reviewed today- continue PNV RhD negative 271068886 Z - B neg blood type- patient reports she has not received Rhogam injection yet- labs sent today for Rhogam eval [id number] TRINI RODRIGUEZ MD [facility] [address],[place] [address] 01/11/2025 10:19:23 01/11/2025 11:08:16 Gestational diabetes mellitus 03473758 O24.410 Z3A.32 - A1- good glycemic control [id number] Tod Briggs MD [facility] [address],[place] [address] 01/11/2025 10:20:01 01/11/2025 12:06:23 Gestational diabetes mellitus 08029220 O24.410 O36.63X0 Z3A.36 [id number] TRINI RODRIGUEZ MD [facility] [address] [address] 01/11/2025 10:20:16 01/11/2025 12:33:12 Gestational diabetes mellitus 61034124 O24.410 O36.63X0 Z3A.36 - A1- good glycemic control Klinefelte r's syndrome, XXY 853249631 Q98.0 - high risk on NIPT- declined amniocente sis- plan for cord blood at delivery for confirmato ry testing Large for gestation age fetus 979584054 O36.63X0 - 94% at 11/2024 MFM scan- 88% at 01/11/25 (36 week) [place] History of cytomegalovirus infection 9775742241 47443412 Z86.19 - positive antibodies , drawn due to echogenic bowel which resolved- weekly testing per [facility] Gestation period, 36 weeks 06661286 Z3A.36 - continue PNV- GBS collected today [id number] Tod Briggs MD [facility] [address],[place] [address] 01/18/2025 13:29:19 01/18/2025 14:02:39 Gestational diabetes mellitus 69260602 O24.410 Z3A.37 [id number] TRINI RODRIGUEZ MD [facility] [address],[place] [address] 01/18/2025 13:29:38 01/18/2025 14:42:35 Gestational diabetes mellitus 27129217 O24.410 O36.63X0 Z3A.36 - A1- good glycemic control [id number] TRINI RODRIGUEZ MD [facility] [address],[place] [address] 01/18/2025 13:29:48 01/18/2025 14:58:44 Klinefelter's syndrome, XXY 197918046 Q98.0 - high risk on NIPT- declined amniocente sis- plan for cord blood at delivery for confirmato ry testing Gestationa l diabetes mellitus 90200977 O24.410 - A1- good glycemic control Gestation period, 37 weeks 56520621 Z3A.37 - continue PNV Group [facility] reptococcus carrier 4734663734 103 Z22.330 - plan for antibiotic s during labor [id number] Tod Briggs MD [facility] [address],[place] [address] 03/01/2025 12:23:14 03/01/2025 13:13:27 care status 911451900 Z39.2 this patient is a 19-year-ol d female presents for care. Her baby is doing well. Her baby is breastfeed ing. She is doing well. Her bleeding has stopped. Her mood is good. She has not had intercours e. She would like Mirena IUD for contracept ion. That will be inserted in 2 weeks. She will follow up in as needed. [id number] RHODA Cornejo [facility] [address],[place] [address] 03/15/2025 11:51:23 03/15/2025 12:19:58 Initial prescription of oral contraception 778886506 Z30.011 Discussed with patient risks, benefits, and alternativ es of contracept ion. Discussed all options, including natural family planning, condoms, combined oral contracept jac, contracept arabella patch, Nuva-ring, Depo-Prove ra, Nexplanon, intrauteri ne device, and sterilizat ion (tubal ligation, vasectomy) . Advised that of the above listed options, only condoms can prevent sexually transmitte d infections and that condoms can be used together with any form of contracept ion. Discussed all control options in great detail. Pt would like to start POP. She is aware of the risks and benefits.. She is aware it is not effective for control the first month. She is also aware of the importance of taking at the same time every day. Encouraged use of condoms as the pill does not protect against STI's.Rx sent, RTC for [employer] [facility] Concerns Section Related Observation LastModified by Organization Detai ls LastModified Time None Recorded Concern Status LastModified by Organization Details LastModified Time None Recorded Advance Directives Directive N: Payers Encounter Date Sequence Insurance Name Policy Number Policy Rivers Covered Member ID Rivers Member ID Guarantor Name 01/18/2025 1 [facility] (MEDICAID HMO) [id number] Lani Ho [id number] Lani Ho 01/18/2025 1 [facility] (MEDICAID HMO) [id number] Lani Ho [id number] Lani Ho 01/18/2025 1 [facility] (MEDICAID HMO) [id number] 0003 Lani Ho [id number] Lani Ho 03/01/2025 1 [facility] (MEDICAID HMO) [id number] 0003 Lani Ho [id number] Lani Ho 03/15/2025 1 [facility] [place] (MEDICAID HMO) [id number] 0003 Lani Ho [id number] Lani Ho Notes Date Note Type Note Provider Name and Address Organization Details Recorded Time 03/01/2025 text/html this patient is a 19-year-old female presents for care. Her baby is doing well. Her baby is . She is doing well. Her bleeding has stopped. Her mood is good. She has not had intercourse. She would like Mirena IUD for contraception. That will be inserted in 2 weeks. She will follow up in as needed. Tod Briggs MD [address], [place], [address], [facility] 03/01/2025 13:12:28 03/15/2025 text/html 19yo [id number] for BC consultshe is both and formula feeding her 7 week oldshe was considering a Mirena IUD but wants to discuss other options RHODA Cornejo [address], [place], [address], [place] [facility] 03/15/2025 12:19:24 OBGyn Episode Ob Episode Information Episode Created Date Number of Fetuses Patient Bloodtype Patient rh Status Prepregnancy Weight lbs Domestic Partner Domestic Partner Phone Father Name Morning Show Host Status 12/15/19 25 1 CLOSED Fetus Data First Name Last Name Admitted to NICU Weight (g) Sex Living Outcome Pediatric Complications Fetus ID Race Codes Race Delivery Type 3628.73 6 M true Full Term [id number] Vaginal Delivery Problems Problem Notes GBS + Problem Name Start Date End Date Resolution Snomed Code Not e Large for gestation age fetus 94% at 11/2024 S SM MFM US Gestational diabetes mellitus 02439295 Cytomegalovirus antibody screening 507870593 Positive per [facility]; echogenic bowel on 3T US, resolved on later scan; twice weekly testing per [facility] Klinefelter's syndrome, XXY 545234727 High risk on NI PT; declined amniocentesis; [...] Weight in lbs Pre/Post Dialysis Refused Weight 182.011374036281 BP Diastolic BP Location Tested BP Systolic [...] Type Weight in lbs Pre/Post Dialysis Refused 186.840434679663 BP Diastolic BP Location Tested BP Systolic BP Type 83 L arm 127 sitting Fetus Heart Rate Present A 145 Fetus Movement A Yes Comments Good movement. No cram ping or bleeding. Transfer from [facility] at 32 weeks; has been complicated by GDMA1; good glycemic control per patient. Checking fasting and 2h PP sugars. Discussed risks of GDM including increased risk of c section, shoulder dystocia and hypoglycemia. Discussed importance of good glycemic control. Patient has also been followed by [facility] for suspected Kleinfelter's syndrome, high risk on NIPT however declined amniocentesis. Will send cord blood at delivery to confirm. On review of MFM records, patient had +CMV antibodies. Will request further records regarding CMV. Per patient, [facility] recommends twice weekly testing. Most [...] Weight in lbs Pre/Post Dialysis Refused Weight 186.180161775265 BP Diastolic BP Location Tested BP Systolic BP Type 83 L arm 125 sitting Fetus Heart Rate Present A 140 Fetus Movement A Yes Comments Patient c/o back pains and p elvic pressure. Good movement. Glucose overall wnl, no consistently abnormal readings. Received rhogam. BPP 10/10, EFW 88% (previously 94%). GBS collected today. SVE 0.5cm. Discussed MIL for GDM between 88r5-17r8i. Patient to discuss with partner and will [...] Weight in lbs Pre/Post Dialysis Refused Weight 186.467340420361 BP Diastolic BP Location Tested BP Systolic [...] Post Complications Tubal Sterilization Discharge Date Comments 5 Augmen sheila 37.5 15.2 Panda covid in / +CMV /XXY on NIPT increase risk Klinefelt ers syndrome/ GDM/ +GBS Discharge Information Feeding Method Contraceptive Method Maternal HG B and HCT Levels
--- OUTSIDE RECORDS SUMMARY | 2025-03-31 21:27 | XMS_ITS ---
Author Organization Unknown Address [address] [place] [address] [phone] Phone Care Team Providers Care Trombone Slide Assembler Name Role Phone JOSUE FULTON Attending Unavailable [...] 02/20/2023 18:44 [facility] ID: [id number] [address] [place] [address], [phone] LOINC: Test Value Unit Reference Range Code [...] 02/20/2023 18:43 [facility] ID: [id number] [address] [place] [address], [phone] LOINC: Test Value Unit Reference Range Code Code System Flag TEST PERFORMED URINE PREG (URINE) NEGATIVE LOT#: [id number] EXP DATE: 2023-12-11 QC: ACCEPTABLE Social History Type Status Start Date End Date Code Code Syst em Smoking History Never smoker (Never Smoked) 632196695 SNOMED CT Sex Female Sexual Orientation Straight or Heterosexual 22145211 SNOMED CT Gender Identity Female [id number] [address] Vital Signs Vital Sign Value Unit [place] Value [place] Unit Date/Time Recent/Initial? Code Code System Body Mass Index 24.50 kg/m2 02/20/2023 18:36 Initial 76255 -5 LOINC Body Mass Index Percentile 77 % 02/20/2023 18:36 Initial 68103 -9 LOINC Systolic Blood Pressure 112 mm[Hg] 02/20/2023 18:36 Initial 8480- 6 LOINC Diastolic Blood Pressure 70 mm[Hg] 02/20/2023 18:36 Initial 8462- 4 [facility] Body Surface Area 1.85 m2 02/20/2023 18:36 Initial 3140- 1 [facility] Height 171.450 0 cm 67.50 in 02/20/2023 18:36 Initial 8302- 2 [facility] O2 Saturation 98 % 2022 18:36 Initial 08886 -5 [facility] Pulse 91.0 /min 02/20/2023 18:36 Initial 8867- 4 [facility] Temperature 37.2 Antonella 98.9 F 02/21/20 18:36 Initial 8310- 5 [facility] Weight 72.03 kg 158.80 lbs 02/20/2023 18:36 Initial 26279 -7 [facility] Medications Medication Start Date End Date Route Frequency Dose Code Code System Medication Instructions Home Meds Medrol Dosepak 4MG Oral Tablet 12/25/2022 02/20/2023 By Mouth As Directed 1 PACK 312491 RxNorm 1 PACK By Mouth As Directed Methocarbamol 750MG Oral Tablet 12/25/2022 03/12/2023 By Mouth As needed every 8 hr 159922 RxNorm 1-2 TABLET By Mouth As needed every 8 hr [place]-28 30 MCG-0.15 MG; NA Oral Tablet 12/25/2022 03/12/2023 By Mouth Daily 1 TABLET 178622 RxNorm 1 TABLET By Mouth Daily Macrobid 100MG Oral Capsule 02/20/2023 03/12/2023 By mouth Twice a day 1 TABLET 660876 RxNorm 1 TABLET By mouth Twice a day X 7 DAYS Pyridium 100MG Oral Tablet 02/20/2023 03/12/2023 By mouth As needed every 8 hr 1 TABLET 2317946 RxNorm 1 TABLET By mouth As needed every 8 hr for urinary pain ZyrTEC Allergy 10MG Oral Capsule, Liquid Filled 03/12/2023 Unknown By Mouth Daily 1 CAPSULE 7082918 RxNorm 1 CAPSULE By Mouth Daily Fluticasone 0.05MG/1Actuati on Nasal [place] 03/12/2023 Unknown Nasal Daily 1 Sprays 1400078 RxNorm 1 Spr ays Nasal Daily Azithromycin 500MG Oral Tablet 06/04/2024 Unknown By Mouth x1 NOW 2 TABLET 342267 RxNorm 2 TABLET By Mouth x1 NOW [...] Status Code Code System SEASONAL ALLERGY active 408355240 SNO MED-CT FAMILY PLANNING 06/20/2020 active 577611557 SNO MED-CT BITE OF INSECT active 087470095 SNOME D-CT ES OF VAGINA 08/07/2022 active 28335738 S NOMED-CT MENORRHAGIA active 171781503 SNOMED-C T PAINFUL NECK active 43135015 SNOMED- CT ADHD OF CHILDHOOD 07/22/2019 resolved 466350818 S NOMED-CT SEASONAL NASAL ALLERGY 07/22/2019 resolved 998432 001 SNOMED-CT HISTORY OF CHICKENPOX 07/22/2019 resolved 5541612 08 SNOMED-CT Allergies and Adverse Reactions Allergy Substance Reaction Severity Start Date Concern Status Co de Code System Active seasonal allergies Active No Known Drug Allergies Active 736464154 SNOMED-CT No Known Drug Allergies Active 380349433 SNOMED-CT Plan of Treatment Description Due Date Details Instructions DEPRESSION SCREENING DUE 06/20/2021 Future Order Description Future Order Date Futu re Order Loinc: CULTURE URINE 02/20/2023 LOINC: 630-4 TRICHOMONAS VAGINALIS FEMALE RNA QUAL LOINC: 96172-5 GC/CHLAMYDIA PCR [place] 02/20/2023 LOINC: 448 06-8 CULTURE YEAST, WITH IDENTIFICATION 02/20/2023 LOINC: 99351-1 BACTERIAL VAGINOSIS RAPID TEST 02/20/2023 LOINC: 6410-5 Encounters Encounter Diagnosis Start Date Code Code Sys tem Urinary tract infectious disease 02/20/2023 12132245 SNOMED-CT Personal Care Team Section Performer Name Performer Role Active Date Inactive Da te Progress Notes [facility] 02/20/2023 19:27 Admission Date/Time: 02/20/2023 [...] up. This examination was transcribed using the [employer] voice recognition system without human pilot control operator helper. In an effort to expedite patient care, this report has not been adjusted for typographical, or medical or syntax by a trained diploma medical assistant. Allergy Table Allergen Type Reaction seasonal allergies [...] NEGATIVE 02/20/2023 18:38 02/20/2023 18:43 final LOT#: [id number] 02/20/2023 18:38 02/20/2023 18:43 final EXP DATE: [...] day X 7 DAYS 02/20/2023 JOSUE FULTON Gar[place]-28 30 MCG-0.15 MG; NA Oral Tablet 1 TABLET By Mouth Daily 12/25/2022 Blanco Gallego Methocarbamol 750MG Oral Tablet 1-2 TABLET By Mouth As needed every 8 hr 12/25/2022 Blanco Gallego
--- OUTSIDE RECORDS SUMMARY | 2025-03-31 21:27 | XMS_ITS ---
Author Organization Unknown Address [address] [place] [address] [phone] Phone Care Team Providers Care Card Brusher Name Role Phone Blanco Gallego Attending Unavailable [...] em Smoking History Never smoker (Never Smoked) 988067898 SNOMED CT Sex Female Sexual Orientation Straight or Heterosexual 01269895 SNOMED CT Gender Identity Female [id number] [address] Vital Signs Vital Sign Value Unit [place] Value [place] Unit Date/Time Recent/Initial? Code Code System Body Mass Index 23.87 kg/m2 12/25/2022 13:33 Initial 38314 -5 [facility] Body Mass Index Percentile 74 % 12/25/2022 13:33 Initial 17338 -9 [facility] Systolic Blood Pressure 106 mm[Hg] 12/25/2022 13:33 Initial 8480- 6 [facility] Diastolic Blood Pressure 72 mm[Hg] 12/25/2022 13:33 Initial 8462- 4 [facility] Body Surface Area 1.85 m2 12/25/2022 13:33 Initial 3140- 1 [facility] Height 172.720 0 cm 68.00 in 12/25/2022 13:33 Initial 8302- 2 [facility] O2 Saturation 100 % 2022 13:33 Initial 50909 -5 [facility] Pulse 82.0 /min 12/25/2022 13:33 Initial 8867- 4 [facility] Respiration 16 /min 12/25/19 13:33 Initial 9279- 1 [facility] Temperature 37.0 Antonella 98.6 F 12/25/19 13:33 Initial 8310- 5 [facility] Weight 71.21 kg 157.00 lbs 12/25/2022 13:33 Initial 50429 -7 [facility] Medications Medication Start Date End Date Route Frequency Dose Code Code System Medication Instructions Home Meds Radha 28 3MG-0.02MG Oral Tablet 09/12/2022 12/25/2022 By Mouth Once a day 1 TABLET RxNorm 1 TABLET By Mouth Once a day Medrol Dosepak 4MG Oral Tablet 12/25/2022 02/20/2023 By Mouth As Directed 1 PACK 135290 RxNorm 1 PACK By Mouth As Directed Methocarbamol 750MG Oral Tablet 12/25/2022 03/12/2023 By Mouth As needed every 8 hr 057652 RxNorm 1-2 TABLET By Mouth As needed every 8 hr [place]-28 30 MCG-0.15 MG; NA Oral Tablet 12/25/2022 03/12/2023 By Mouth Daily 1 TABLET 084947 RxNorm 1 TABLET By Mouth Daily Macrobid 100MG Oral Capsule 02/20/2023 03/12/2023 By mouth Twice a day 1 TABLET 314584 RxNorm 1 TABLET By mouth Twice a day X 7 DAYS Pyridium 100MG Oral Tablet 02/20/2023 03/12/2023 By mouth As needed every 8 hr 1 TABLET 7199208 RxNorm 1 TABLET By mouth As needed every 8 hr for urinary pain ZyrTEC Allergy 10MG Oral Capsule, Liquid Filled 03/12/2023 Unknown By Mouth Daily 1 CAPSULE 0549448 RxNorm 1 CAPSULE By Mouth Daily Fluticasone 0.05MG/1Actuati on Nasal [place] 03/12/2023 Unknown Nasal Daily 1 Sprays 0739915 RxNorm 1 Spr ays Nasal Daily Azithromycin 500MG Oral Tablet 06/04/2024 Unknown By Mouth x1 NOW 2 TABLET 357969 RxNorm 2 TABLET By Mouth x1 NOW Assessment You had the following problems:SEASONAL ALLERGYFAMILY PLANNINGBITE OF INSECTCANDIDA OF VAGINAMENORRHAGIAPAINFUL NECK Assessment/Plan: 1. Left upper back pain - Start steroids and muscle relaxer. Patient denies need for school note. 2. Contraceptive management - Patient requesting to restart [place], will restart at this time Return [...] Status Code Code System SEASONAL ALLERGY active 492983833 SNO MED-CT FAMILY PLANNING 06/20/2020 active 476730444 SNO MED-CT BITE OF INSECT active 231205099 SNOME D-CT ES OF VAGINA 08/07/2022 active 71371474 S NOMED-CT MENORRHAGIA active 689010034 SNOMED-C T PAINFUL NECK active 13917724 SNOMED- CT ADHD OF CHILDHOOD 07/22/2019 resolved 283497200 S NOMED-CT SEASONAL NASAL ALLERGY 07/22/2019 resolved 133075 001 SNOMED-CT HISTORY OF CHICKENPOX 07/22/2019 resolved 0100979 08 SNOMED-CT Allergies and Adverse Reactions Allergy Substance Reaction Severity Start Date Concern Status Co de Code System Active seasonal allergies Active No Known Drug Allergies Active 690380002 SNOMED-CT No Known Drug Allergies Active 547403320 SNOMED-CT Plan of Treatment Description Due Date Details Instructions DEPRESSION SCREENING DUE 06/20/2021 Encounters Encounter Diagnosis Start Date Code Code Sys tem Pain in thoracic spine 12/25/2022 463961935 SNOME D-CT Personal Care Team Section Performer Name Performer Role Active Date Inactive Da te Progress Notes [facility] 12/25/2022 13:54 Admission Date/Time: 12/25/2022 13:07 [facility] Visit Note Chief Complaint: [place] [facility] F/U UPPER BACK PAIN/BY NECK SWOLLEN [...] is an 17 yo female presents to [facility] today for [place] [facility] follow up neck and back pain. Pt states she went to [place] ER on 12-18-22 with neck and upper back pain. States it just started hurting her while at work, denies injury to the areas. 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 States she has been taking warm baths [...] Contraceptive management - Patient requesting to restart [place], will restart at this time Return [...]
[2025-03-31 21:36] VITALS: BP 149/81; PULSE 67; RESP 18; TEMP 36.8; O2SAT 100
--- NOTE | 2025-03-31 23:53 | PC.NURSE ---
Pt approached triage desk stating that she was going to leave due to her son being at home. Pt provided with patient portal packet. Pt ambulated to ED exit with steady gait and no signs for concern at this time.
--- OUTSIDE RECORDS SUMMARY | 2025-04-01 00:08 | XMS_ITS | Clinical Summary ---
Author Organization [facility] Address [address] [place] [address] Care Team Providers Care Biomedical Field Service Engineer Name Role Phone Faustino Matta MD Primary Care Provider [phone] Source Comments [facility],non-owned Affiliates and Associated Physician Practices is amultiple site organization consisting of ambulatory clinics and hospital sitesin [place], [place], [place] and [place]. This disclosure is being madepursuant to the Care Everywhere program and may not contain all information available regarding this patient. 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
== END 2025-03-31 23:53 | disposition left against medical advice (07) ==
PROVIDERS: Emergency Provider Emergency Medicine
DX: R42 Dizziness and giddiness (principal)
CPT/HCPCS: 71046; 99199

== ENCOUNTER 2025-05-22 10:08 | Emergency (ER) | payer OTHER, SELFPAY ==
--- NOTE | ~2025-05-22 | US_ITS ---
EXAMINATION: US abdomen limited DATE: 05/22/2025 12:27 INDICATION: Right upper quadrant abdominal pain TECHNIQUE: Multiple grayscale and Doppler ultrasound images of the abdomen were obtained. COMPARISON: CT dated 05/22/2025 FINDINGS: The visualized abdominal aorta and inferior vena cava are normal. The pancreatic head and body are no rmal in appearance. The pancreatic tail is not visualized. Subtle starry stephanie pattern of mild echogen ic periportal edema throughout the liver. Liver has otherwise normal echogenicity and contour, with a smooth surface. No liver lesion identified. No intrahepatic biliary duct dilation suspected. Portal venous flow was seen in the hepatopetal, normal direction and has normal Doppler waveform. There are several echogenic and shadowing gallstones the dependent aspect of the otherwise normal gallbladder. Sonographic Christianson sign was reported as negative by the grass farmer. Common bile duct measures 3 to 4 mm diameter which is normal. Right kidney measures 11.1 x 4.6 x 4.7 cm with normal echogenicity and contour with no hydronephrosis. IMPRESSION: 1. Cholelithiasis without findings of acute cholecystitis or biliary ductal dilation. 2. Diffuse mild periportal edema with differential as provided on prior CT report Reviewed, dictated and finalized at location A. IMPRESSION: 1. Cholelithiasis without findings of acute cholecystitis or biliary ductal dil ation. 2. Diffuse mild periportal edema with differential as provided on prior CT repo rt
--- NOTE | ~2025-05-22 | CT_ITS ---
EXAMINATION: CT abdomen pelvis w con DATE: 05/22/2025 11:22 INDICATION: Right upper cord and abdominal pain TECHNIQUE: Computed tomography (CT) of the abdomen and pelvis was performed with 100 mL Omnipaque-350 intravenous contrast. Automated exposure control and iterative reconstruction technique were employe d. The dose-length product was 333.04 mGy-cm. COMPARISON: None FINDINGS: Small focus of new tree-in-bud opacity in the posterior sulcus of the right lower lobe consistent wit h focal bronchiolitis with endobronchial spread of disease. Heart size is normal. No pericardial or p leural effusion. Mild periportal edema in the liver. Gallbladder, spleen, pancreas, bilateral adrenal glands and kidneys are normal. Appendix is not visualized and there are surgical clips indicative th e cecum likely related to prior appendectomy. No bowel obstruction. Decompressed bladder is unremarka ble. Uterus and right adnexa are unremarkable. There is a 2.5 cm peripherally enhancing corpus luteum cyst in the left ovary. Minimal likely physiologic free fluid in the pelvis. No abscess or free intr aperitoneal gas. No pathologically enlarged abdominal or pelvic lymphadenopathy. Mild lumbar and MODE RATE lower thoracic spondylosis with chronic appearing mild likely physiologic anterior wedging at T1 2 and L1. IMPRESSION: 1. Nonspecific periportal edema in the liver. Differential includes acute hepatitis, cholangitis, acu te pyelonephritis congestive heart failure secondary to cardiac congestion, pleural and hepatic traum a or aggressive fluid resuscitation. 2. Very small region of new tree-in-bud opacity at the posterior sulcus of the right lower lobe likel y related to focal bronchiolitis. Reviewed, dictated and finalized at location A. IMPRESSION: 1. Nonspecific periportal edema in the liver. Differential includes acute hepat itis, cholangitis, acute pyelonephritis congestive heart failure secondary to c ardiac congestion, pleural and hepatic trauma or aggressive fluid resuscitation . 2. Very small region of new tree-in-bud opacity at the posterior sulcus of the right lower lobe likely related to focal bronchiolitis.
--- OUTSIDE RECORDS SUMMARY | 2025-05-22 10:10 | XMS_ITS ---
Author Organization Unknown Address [address], [place] [phone] Phone Care Team Providers Care Analytical Research Program Manager Name Role Phone DOEN CONROY Attending Unavailable Results CYTOMEGALOVIRUS AB IGG - Col lect Date/Time: 10/22/2024 14:12 [facility] ID: [id number] [address] [place], [place], [phone] LOINC: 5124-3 Test Value Unit Reference Range Code Code System Flag CYTOMEGALOVIRUS ANTIBODY(IGG) >10.00 H PARVOVIRUS B19 IGG & IGM - C ollect Date/Time: 10/22/2024 14:12 [facility] ID: [id number] [address] [place] [address], [phone] LOINC: 5273-8 Test Value Unit Reference Range Code Code System Flag PARVOVIRUS B19 ANTIBODY(IGG) 0.2 PARVOVIRUS B19 ANTIBODY(IGM) 0.2 Social History Type Status Start Date End Date Code Code Syst em Smoking History Never smoker (Never Smoked) 220543104 SNOMED CT Sex Female Sexual Orientation Straight or Heterosexual 49799884 SNOMED CT Gender Identity Female [id number] [address] Medications Medication Start Date End Date Route Frequency Dose Code Code System Medication Instructions Home Meds ZyrTEC Allergy 10MG Oral Capsule, Liquid Filled 03/12/2023 Unknown By Mouth Daily 1 CAPSULE 2197625 RxNorm 1 CAPSULE By Mouth Daily Fluticasone 0.05MG/1Actuatio n Nasal [place] 03/12/2023 Unknown Nasal Daily 1 Sprays 0565671 RxNorm 1 Spra ys Nasal Daily Azithromycin 500MG Oral Tablet 06/04/2024 Unknown By Mouth x1 NOW 2 TABLET 644118 RxNorm 2 TABLET By Mouth x1 NOW [...] Status Code Code System SEASONAL ALLERGY active 436297564 SNO MED-CT FAMILY PLANNING 06/20/2020 active 692751502 SNO MED-CT BITE OF INSECT active 125069108 SNOME D-CT ES OF VAGINA 08/07/2022 active 67631207 S NOMED-CT MENORRHAGIA active 105661187 SNOMED-C T PAINFUL NECK active 34275756 SNOMED- CT ADHD OF CHILDHOOD 07/22/2019 resolved 032060183 S NOMED-CT SEASONAL NASAL ALLERGY 07/22/2019 resolved 418588 001 SNOMED-CT HISTORY OF CHICKENPOX 07/22/2019 resolved 6343057 08 SNOMED-CT Allergies and Adverse Reactions Allergy Substance Reaction Severity Start Date Concern Status Co de Code System Active No Known Drug Allergies Active 545729165 SNOMED-CT Plan of Treatment Description Due Date Details Instructions DEPRESSION SCREENING DUE 06/20/2021 Encounters Encounter Diagnosis Start Date Code Code Sys tem ultrasound scan abnormal 10/22/2024 762041 005 SNOMED-CT Personal Care Team Section
--- OUTSIDE RECORDS SUMMARY | 2025-05-22 10:10 | XMS_ITS ---
Author Organization Unknown Address [address] [place] [address] [phone] Phone Care Team Providers Care Lead Esthetician Name Role Phone ABBY AGUIRRE Attending Unavailable [...] em Smoking History Never smoker (Never Smoked) 169950282 SNOMED CT Sex Female Sexual Orientation Straight or Heterosexual 44758873 SNOMED CT Gender Identity Female 23647887312166 [address] Vital Signs Vital Sign Value Unit [place] Value [place] Unit Date/Time Recent/Initial? Code Code System Body Mass Index 26.21 kg/m2 05/06/2023 12:01 Initial 31829 -5 [facility] Body Mass Index Percentile 85 % 05/06/2023 12:01 Initial 44518 -9 [facility] Systolic Blood Pressure 118 mm[Hg] 05/06/2023 12:01 Initial 8480- 6 [facility] Diastolic Blood Pressure 74 mm[Hg] 05/06/2023 12:01 Initial 8462- 4 [facility] Body Surface Area 3.35 m2 05/06/2023 12:01 Initial 3140- 1 [facility] Height 248.920 0 cm 98.00 in 05/06/2023 12:01 Initial 8302- 2 [facility] O2 Saturation 98 % 2022 12:01 Initial 07851 -5 [facility] Pulse 78.0 /min 05/06/2023 12:01 Initial 8867- 4 [facility] Temperature 36.4 Antonella 97.5 F 05/06/20 12:01 Initial 8310- 5 [facility] Weight 162.40 kg 358.03 lbs 05/06/2023 12:01 Initial 42853 -7 [facility] Medications Medication Start Date End Date Route Frequency Dose Code Code System Medication Instructions Home Meds ZyrTEC Allergy 10MG Oral Capsule, Liquid Filled 03/12/2023 Unknown By Mouth Daily 1 CAPSULE 8540065 RxNorm 1 CAPSULE By Mouth Daily Fluticasone 0.05MG/1Actuatio n Nasal [place] 03/12/2023 Unknown Nasal Daily 1 Sprays 5071712 RxNorm 1 Spra ys Nasal Daily Azithromycin 500MG Oral Tablet 06/04/2024 Unknown By Mouth x1 NOW 2 TABLET 318656 RxNorm 2 TABLET By Mouth x1 NOW [...] Status Code Code System SEASONAL ALLERGY active 878783347 SNO MED-CT FAMILY PLANNING 06/20/2020 active 279809711 SNO MED-CT BITE OF INSECT active 382340731 SNOME D-CT ES OF VAGINA 08/07/2022 active 09736873 S NOMED-CT MENORRHAGIA active 124108096 SNOMED-C T PAINFUL NECK active 38422589 SNOMED- CT ADHD OF CHILDHOOD 07/22/2019 resolved 635460209 S NOMED-CT SEASONAL NASAL ALLERGY 07/22/2019 resolved 069078 001 SNOMED-CT HISTORY OF CHICKENPOX 07/22/2019 resolved 4950423 08 SNOMED-CT Allergies and Adverse Reactions Allergy Substance Reaction Severity Start Date Concern Status Co de Code System Active No Known Drug Allergies Active 389417570 SNOMED-CT Plan of Treatment Description Due Date Details Instructions DEPRESSION SCREENING DUE 06/20/2021 Encounters Encounter Diagnosis Start Date Code Code Sys tem Injury of head 05/06/2023 29468962 SNOMED-CT Personal Care Team Section Progress Notes [facility] 05/06/2023 [...] Instructions Start Date Prescribing Fluticasone 0.05MG/1Actuation Nasal [place] 1 Sprays Nasal Daily 03/12/2023 Blanco Gallego ZyrTEC Allergy 10MG Oral Capsule, Liquid Filled 1 CAPSULE By Mouth Daily 03/12/2023 Blanco Gallego This examination was transcribed using the [employer] voice recognition system without human operations systems specialist. In an effort to expedite patient care, this report has not been adjusted for typographical, or medical or syntax by a trained associate medical director.
--- OUTSIDE RECORDS SUMMARY | 2025-05-22 10:11 | XMS_ITS | Data Portability ---
Author Organization [employer] , [facility] Address [address] [place] [address] Assessment No assessment recorded. Plan of Treatment Reminders Order Date Submit Date Provider Last Modified By Organization Details Last Modified Time Details Appointments None recorded. Lab CBC w/ auto diff 2024 025 BRICELYN [employer], [address] [place], [address], 5 12:24:38 glucose tolerance test, post-50G, 1-hour 2024 025 BRICELYN [employer], [address] [place], [address], 5 12:35:39 obstetric screen, serum or blood 2024 025 BRICELYN [employer], [address] [place] [address], [address], 5 14:47:18 Referral None recorded. Procedures None recorded. Surgeries None recorded. Imaging None recorded. Medication Orders None recorded. Patient TargetsNo targets recorded. Patient Instructions Encounter Date Encounter Id Patient Instructions Last Modified By Organization Details Last Modified Time 11/18/2024 [id number] learning about screening for gestational diabetes Not available 11/18/2024 15:10:20 11/26/2024 [id number] Anxiety During and After : Care Instructions Not available 11/26/2024 17:57:56 Reason for Referral None Reported. Results Created Date Observation Date Name Description Value Unit Range Abnormal Flag Note LastModifiedBy Organization Detail LastModifiedTime 11/18/19 25 11/19/2024 CBC (INCL UDES DIFF/ PLT) WBC 7.6 thous and/u L 4.0 - 9.8 normal Not Available [employer] [address] [place] [address], [address], 11/19/2024 12:24:38 11/18/19 25 11/19/2024 CBC (INCL UDES DIFF/ PLT) RBC 3.4 jonathon on/uL 3.9 - 4.9 low Not Available [employer] [facility] [address] [place] [address], [address], 11/19/2024 12:24:38 11/18/19 25 11/19/2024 CBC (INCL UDES DIFF/ PLT) hemoglobin 11.0 g/dL 11.8 - 14.8 low Not Available [employer] [address] [place] [address], [address], 11/19/2024 12:24:38 11/18/19 25 11/19/2024 CBC (INCL UDES DIFF/ PLT) hematocrit 32.6 % 35.5 - 44.0 low Not Available [facility] [employer] [facility] [address] [place] [address], [address], 11/19/2024 12:24:38 11/18/19 25 11/19/2024 CBC (INCL UDES DIFF/ PLT) MCV 96.7 fL 82.0 - 99.0 normal Not Available [employer] [facility] [address] [place] [address], [address], 11/19/2024 12:24:38 11/18/1911/19/2024 CBC (INCL UDES DIFF/ PLT) MCH 32.6 pg 27.2 - 32.6 normal Not Available [employer] [facility] [address] [place] [address], [address], 11/19/2024 12:24:38 11/18/19 25 11/19/2024 CBC (INCL UDES DIFF/ PLT) MCHC 33.7 g/dL 31.5 - 35.5 normal Not Available [facility], [address], 11/19/2024 12:24:38 11/18/1911/19/2024 CBC (INCL UDES DIFF/ PLT) RDW-CV 12.2 % 11.5 - 14.5 normal Not Available [address], [address], 11/19/2024 12:24:38 11/18/1911/19/2024 CBC (INCL UDES DIFF/ PLT) platelet 294 thous and/u L 140 - 350 normal Not Available [address], [address], 11/19/2024 12:24:38 11/18/1911/19/2024 CBC (INCL UDES DIFF/ PLT) MPV 10.4 fL 9.3 - 12.4 normal Not Available [address], [address], 11/19/2024 12:24:38 11/18/19 25 11/19/2024 CBC (INCL UDES DIFF/ PLT) absolute neutrophil 5.66 thous and/u L 1.90 - 7.00 normal Not Available [address], [address], 11/19/2024 12:24:38 11/18/19 25 11/19/2024 CBC (INCL UDES DIFF/ PLT) absolute lymphocyte 1.32 thous and/u L 0.70 - 4.50 normal Not Available [address], [address], 11/19/2024 12:24:38 11/18/1911/19/2024 CBC (INCL UDES DIFF/ PLT) absolute monocyte 0.46 thous and/u L 0.10 - 1.30 normal Not Available [address], [address], 11/19/2024 12:24:38 11/18/19 25 11/19/2024 CBC (INCL UDES DIFF/ PLT) absolute eosinophil 0.05 thous and/u L <0.70 normal Not Available [address], [address], 11/19/2024 12:24:38 11/18/19 25 11/19/2024 CBC (INCL UDES DIFF/ PLT) absolute basophil 0.03 thous and/u L <0.20 normal Not Available [address], [address], 11/19/2024 12:24:38 11/18/19 25 11/19/2024 CBC (INCL UDES DIFF/ PLT) absolute immature granulocyte 0.08 thous and/u L <0.03 high Not Available [address], [address], 11/19/2024 12:24:38 11/18/19 25 11/19/2024 (50G) 1HR - GLUCO SE GIA ANCE TEST, GESTA ELDER L SCREE N glucose (50g) 1 hour 144 mg/dL <135 high Not Available [address], [address], 11/19/2024 12:35:39 11/18/19 25 11/19/2024 OB 28W (SYPH HIV 1/2 Ag/Ab Non-Re active non-re active normal Not Available [address], [address], 11/19/2024 14:47:18 11/18/19 25 11/19/2024 OB 28W (SYPH syphilis Ab Non-Re active non-re active normal Not Available [address], [address], 11/19/2024 14:47:18 11/23/19 25 11/24/2024 (100G ) 3HR - GLUCO SE GIA ANCE TEST, GESTA ELDER L SCREE N glucose (100g) fasting 86 mg/dL <95 normal Not Available [address], [address], 11/24/2024 14:31:33 11/23/19 25 11/24/2024 (100G ) 3HR - GLUCO SE GIA ANCE TEST, GESTA ELDER L SCREE N glucose (100g) 1 hour 198 mg/dL <180 high Not Available [facility] [address] [place], [address], 11/24/2024 14:31:33 11/23/19 25 11/24/2024 (100G ) 3HR - GLUCO SE GIA ANCE TEST, GESTA ELDER L SCREE N glucose (100g) 2 hour 163 mg/dL <155 high Not Available [facility] [address] [place], [address], 11/24/2024 14:31:33 11/23/19 25 11/24/2024 (100G ) 3HR - GLUCO SE GIA ANCE TEST, GESTA ELDER L SCREE N glucose (100g) 3 hour 145 mg/dL <140 high Not Available [facility] [address] [place], [address], 11/24/2024 14:31:33 09/23/20 24 09/23/2024 US, obste tric, 2nd trime ster No observ ation record ed. [email or web address] [facility] [address] [place] [address], [address], 09/24/2024 15:24:20 10/23/20 24 10/21/2024 US, obste tric No observ ation record ed. [email or web address] [facility] [address] [place] [address], [address], 11/30/2024 13:18:29 11/20/19 25 11/19/2024 US, obste tric No observ ation record ed. [email or web address] [facility] [address] [place] [address], [address], 12/02/2024 14:05:06 Result Notes None recorded. Problems Name Problem SNOMED Code Status Onset Date Resolution Date Notes Provider Name and Address Organization Details Recorded Time Pregnanc y 34807665 Completed 202303/22/2025 Geovanna Tanner null, [place] - [facility] 16:50:59 Rubella non-immu ne 788876149 Completed 2024 WOLF GUADARRAMA NP [facility] [place], [address], [facility] - [facility] 18:36:58 Abnormal finding on antenata l screenin g of mother 566933425 Completed 2024 XXY on NIPT (Klinefel ter syndrome) WOLF GUADARRAMA NP [facility] [place], [address], [facility] - [employer] [facility] 18:48:16 RhD negative 587254791 Completed 2024 RH (D) NIPT detected will need Rhogam PP WOLF GUADARRAMA NP [facility] [place], [address], [facility] - [employer] [facility] IV 18:49:16 Large for gestatio n age fetus Completed 2024 EFW 98%tile on 10/22 Echogenic bowel 11/19-94%ti le WOLF GUADARRAMA NP [address] [place] [address], [address], [facility] - [employer] [facility] IV 14:05:39 Gestatio nal diabetes mellitus 56055299 Completed 2024 WOLF GUADARRAMA NP [facility] [place], [address], [facility] - [employer] [facility] IV 17:52:44 Problem Notes None recorded. Procedures Surgical History Date Name Laterality Status Provider Name and Address Organization Details Recorded Time Appendectomy completed Rebecca Chadwick [facility] [employer] [facility] 06/09/2024 15:08:50 Imaging Results None recorded. Procedure Notes None recorded. Medical Equipment None [...] No t Available Vitals Date Recorded Body weight Body mass index (BMI) Body mass index (BMI) [Percentile] Per age and sex Body height Systolic And Diastolic Provider Name and Address Organization Details Last Updated DateTime 11/18/2024 67320.44 186 g 27.1 kg/m2 86 % 172.72 cm 110/70 mm[Hg] [facility] [employer] 5 14:46:18 Date Recorded Body weight Body mass index (BMI) Body mass index (BMI) [Percentile] Per age and sex Body height Systolic And Diastolic Provider Name and Address Organization Details Last Updated DateTime 11/26/2024 38185.62 66 g 27.4 kg/m2 87 % 172.72 cm 112/68 mm[Hg] [facility] [employer] 5 16:44:47 Date Recorded Body weight Body mass index (BMI) [Percentile] Per age and sex Body mass index (BMI) Body height Systolic And Diastolic Provider Name and Address Organization Details Last Updated DateTime 12/02/2024 08149.84 949 g 86 % 26.9 kg/m2 172.72 cm 112/70 mm[Hg] [facility] [employer] 5 14:34:15 Date Recorded Body height Body mass index (BMI) Body mass index (BMI) [Percentile] Per age and sex Body weight Systolic And Diastolic Provider Name and Address Organization Details Last Updated DateTime 09/30/2024 172.72 cm 26 kg/m2 83 % 62198.2 9527 g 120/70 mm[Hg] Lucina Rossi [facility] [employer] [facility] 4 15:43:01 Date Recorded Body weight Body mass index (BMI) [Percentile] Per age and sex Body mass index (BMI) Body height Body temperature Systolic And Diastolic Provider Name and Address Organization Details Last Updated DateTime 4 [address]49[address].8 69922 g 85 % 26.7 kg/m2 172.72 cm 96.6 [degF] 118/68 mm[Hg] Cristela Mcgrath [facility] [employer] [facility] 4 14:19:52 Social History Question Answer Notes LastModified by [email or web address] Details LastModified Time Tobacco Smoking Status Never Smoker Rebecca acosta, [facility] [employer] [facility] 06/09/2024 15:08:08 If You Are , What Was Your Level Of Alcohol Consumption Prior To ? None Information not available 06/09/2024 Are You Blind Or Do You Have Difficulty Seeing? No Information not available 06/23/2024 Are You Deaf Or Do You Have Serious Difficulty Hearing? No Information not available 06/23/2024 What Type Of Diet Are You Following? REGULAR [email or web address] Information not available 06/09/2024 How Many Children Do You Have? 0 Information not available 06/23/2024 What Is Your Relationship Status? Domestic Partner Information not available 06/09/2024 Are You Sexually Active? Yes [email or web address] Information not available 06/09/2024 Sex: Unknown Functional Status Question Answer Note LastModified by Organizat ion Details LastModified Time Do you use any illicit or recreational drugs? No [email or web address] Information not available 06/09/2024 Do you or have you ever used any other forms of tobacco or nicotine? No [email or web address] Information not available 06/09/2024 What is your level of alcohol consumption? None [email or web address] Information not available 06/09/2024 What is your exercise level? None [email or web address] Information not available 06/23/2024 Mental Status None recorded. Family History Relationship Description Onset Age of this Age Resolved Age Notes LastModified by Organization Details LastModified Time Father No current problems or disability [email or web address] Not available 05/13 15:07:47 Mother No current problems or disability [email or web address] Not available 05/13 15:07:47 Medical History Condition Response Other Cancer N High Blood Pressure N Colon Cancer N Cytomegalovirus N Hyperthyroidism N MRSA N Blood Transfusion N Herpes (HSV) N Breast Cancer N Lung Cancer N Hypothyroidism N Depression N Incontinence N Panic Attacks N Neurological Disorder N Deep Vein Thrombosis N Anxiety Disorder N Autoimmune disease N Arthritis N Shingles N Tuberculosis/Positive PPD N Infertility N Polycystic Ovarian Syndrome N Cervical Cancer N Chlamydia N Hematuria N Stroke N Varicosities N Seasonal allergies N Crohn's Disease N Alzheimer's/Dementia N COPD/Emphysema N Endometriosis N HPV/Genital Warts N IBS (Irritable Bowel Syndrome) N History of Abnormal Pap N High Cholesterol N Liver Disease N Kidney Infection N Fibromyalgia N Ulcer N Kidney Disease N HIV N Gallbladder disease N Von Willebrand disease N Sickle Cell Disease/Trait N ADD/ADHD N Eating Disorder N Diabetes Mellitus (non-insulin dependent ) N Anemia N Ovarian Problems N Multiple Sclerosis N Gonorrhea N Frequent Urinary Tract infections N Osteopenia N Headaches/migraines N GERD (reflux) N Ovarian Cancer N Diabetes (insulin dependent) N Seizures/Epilepsy N Breast Problems N Fibroids N Asthma N Heart Attack N Endometrial Cancer N Lupus N Rubella N Blood Clotting [...] SNOMED-CT Code Diagnosis ICD10 Code Diagnosis Note [id number] WOLF GUADARRAMA NP [facility] [address] [place] [address] 06/09/2024 15:02:07 06/10/2024 15:59:32 Missed period 02430735 N92.6 Patient with possible early gestation. Patient is unsure of LMP possibly 6.17.24. Denies VB or abnormal discharge. SAB precaution s reviewed. To RTC in 2-3 weeks for repeat TVUS [id number] WOLF GUADARRAMA NP [facility] [address] [place] [address] 06/23/2024 14:51:10 06/23/2024 16:28:07 test positive 580665214 Z32.01 Pt presents today for a confirmati [...] vitamins daily---To xoplasmosi s precaution s reviewed-- -[facility] Guide; What to expect on your maternity journey-- -S/S of SAB reviewed and when to seek care RTC for 1st OB, Labs, and Physical. --BMI:24.9 [id number] WOLF GUADARRAMA NP [facility] [address] [place] [address] 07/22/2024 16:12:51 07/22/2024 16:55:54 Gestation period, 11 weeks 03270085 Z3A.11 screening 2437 18982 Z36.89 Normal 1479361 2 Z34.90 Pt comes in today for a New/First OB visit.Gest ation:11 w3 dEDD: -- PMH: Anxiety-- Medication s: Taking daily PNV, paxton supp for N/V and tylenol-- Previous OB History: n/a-- Mom/Sister s with hx of Pre-Eclamp kelli:denies -- History of Genital HSV:denies -- Genetic Questions in OB Episode Done-- Accepts mobile[employer]. Discussed logging on to the mobileo portal to find Gender Results POC-- NOB labs done today-- Accepts mobileo -- RTC 4 weeks Guide: Given and reviewed. Toxoplasmo sis precaution s reviewed. Reviewed office visit schedule during . Reviewed Quickening and normal FHTs. Carrier de tection, molecular genetics 3289697 Z14.8 [id number] WOLF GUADARRAMA NP [facility] [address] [place] [address] 08/19/2024 16:40:21 08/21/2024 12:29:30 Normal 24577953 Z34.90 Pt is here for a KEYONNA [...] for pre-term labor. Gestation period, 15 weeks 6968315 Z3A.15 declines AFP will offer again at next appt. [id number] WOLF GUADARRAMA NP [address] [address] 09/07/2024 15:50:39 09/07/2024 16:37:32 Normal 50436299 Z34.92 Pt is here for a KEYONNA [...] for pre-term labor. Gestation period, 18 weeks 51606595 Z3A.18 [id number] WOLF GUADARRAMA NP [facility] [address] [place] [address] 09/30/2024 15:30:33 10/03/2024 14:06:30 Normal 86182351 Z34.90 Pt is here for a KEYONNA [...] for pre-term labor. Gestation period, 21 weeks 35125806 Z3A.21 Backache 826577404 O99.8 91 M54.9 [id number] WOLF GUADARRAMA NP [facility] [address] [place] [address] 10/21/2024 14:10:22 10/21/2024 14:50:59 Gestation period, 24 weeks 605388545 Z3A.24 Normal 2651471 2 Z34.92 Pt is here for a KEYONNA rowan. She is taking vitamins. She has no complaints or questions. Reports feeling movement. Denies vaginal bleeding, abdominal cramps, N/V, contractio ns, or LOF. Denies headache, vision changes, swelling of hands or face, and epigastric pain. Discussed PTL and precaution s given. There are no identifiab le risk factors for pre-term labor. [id number] WOLF GUADARRAMA NP [address] [address] 11/18/2024 14:41:31 11/19/2024 15:28:39 Normal 93997242 Z34.92 Pt is here for a KEYONNA rowan. She is taking vitamins. She has no complaints or questions. Reports feeling movement. Denies vaginal bleeding, abdominal cramps, N/V, contractio ns, or LOF. Denies headache, vision changes, swelling of hands or face, and epigastric pain. Discussed PTL and precaution s given. There are no identifiab le risk factors for pre-term labor. Gestation period, 28 weeks 26689264 Z3A.28 screening 2437 [address] Z36.89 [id number] WOLF GUADARRAMA NP [facility] [address] [place] [address] 11/26/2024 16:40:34 11/29/2024 05:26:51 Gestational diabetes mellitus complicating 0138259295 9106 O24.419 *GDM education completed. Discussed diet- [...] logs given pt to RTC next week*Check [facility] website for further info High risk 4720 [...] for pre-term labor. Gestation period, 29 weeks 65426353 Z3A.29 [id number] WOLF GUADARRAMA NP [facility] [address] [place] [address] 12/02/2024 14:30:01 12/04/2024 14:24:45 High risk 20226711 O09.90 Pt is here for a KEYONNA [...] for pre-term labor. Gestation period, 30 weeks 87578631 Z3A.30 Gestationa l diabetes mellitus 83029486 O24.410 Health Concerns Section Related Observation LastModified by Organization Detai ls LastModified Time None Recorded Concern Status LastModified by Organization Details LastModified Time None Recorded Advance Directives Directive None Recorded Payers Insurance Date Sequence Insurance Name Policy Number Policy Rivers Covered Member ID Rivers Member ID Guarantor Name 11/23/2024 1 [facility] (MEDICAID REPLACEMENT - HMO) Lani Ho [id number] Lani Ho 11/18/2024 1 [facility] (HMO) [id number] Lani Ho [id number] Lani Ho 12/16/2024 1 [place] Lani Ho [id number] Lani Ho 11/23/2024 [facility] (MEDICAID HMO) [id number] Lani Ho [id number] Lani Ho 12/16/2024 1 [facility] (MEDICAID HMO) [id number] Lani Ho [id number] Lani Ho 11/18/2024 1 [place] [facility] Lani Ho [id number] Lani Ho Notes Date Note Type Note Provider Name and Address Organization Details Recorded Time 09/30/2024 text/html Lani is 21.3 weeks. She is here for a routine visit. She reports normal movement and she is taking vitamins. Anatomy scan was done at [facility]. WOLF GUADARRAMA NP [address] [place], [address], [employer] [facility] 10/01/2024 10:29:53 10/21/2024 text/html Patient is here today for a routine OB visit. She is currently at 24.3 weeks gestation. vitamins: yes She has felt movement.She denies any complaints of the presence of vaginal bleed, leaking fluid, abdominal cramps, nausea, vomiting, headache or visual disturbances. WOLF GUADARRAMA NP [address] [place], [address], [facility] 10/21/2024 14:38:09 11/18/2024 text/html Patient is here today for a routine OB visit. She is currently at 28.3 weeks gestation. vitamins: yes She has felt movement.She denies any complaints of the presence of vaginal bleed, leaking fluid, abdominal cramps, nausea, vomiting, headache or visual disturbances. No concerns. EPDS is 9. 1 Hr. Glucose @ 1:48 p.m. WOLF GUADARRAMA NP [address] [place], [address], [facility] [employer] [facility] 11/18/2024 18:56:16 11/26/2024 text/html Patient is here today for a routine OB visit. She is currently at 29.4 weeks gestation. vitamins: yes She has felt movement.She denies any complaints of the presence of vaginal bleed, leaking fluid, abdominal cramps, nausea, vomiting, headache or visual disturbances. Pt. has no concerns. WOLF GUADARRAMA NP [address] [place], [address], [facility] [employer] [facility] 11/26/2024 17:58:04 12/02/2024 text/html Patient is here today for a routine OB visit. She is currently at 30.3 weeks gestation. vitamins: yes She has felt movement.She denies any complaints of the presence of vaginal bleed, leaking fluid, abdominal cramps, nausea, vomiting, headache or visual disturbances. Pt. has no concerns. 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 Management Analyst Status 07/22/20 24 1 B Negative CLOSED Fetus Data First Name Last Name Admitted to NICU Weight (g) Sex Living Outcome Pediatric Complications Fetus ID Race Codes Race Delivery Type [id number] Problems Problem Notes Problem Name Start Date End Date Resolution Snomed Code Not e RhD negative 11/18/2024 873590729 RH (D) NIPT detected will need Rhogam PP Large for gestation age fetus 11/18/20241995326907433 EFW 98%tile on 10/22 Echogenic bowel 11/19-94%tile Rubella non-immune 11/18/2024 453673613 Gestational diabetes mellitus 11/26/2024 02750254 Abnormal finding on screening of mother 11/18/2024 402310779 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) Taye Calculation [...] in lbs Pre/Post Dialysis Refused With clothes 164.581651634043 BP Diastolic BP Location Tested BP Systolic [...] in lbs Pre/Post Dialysis Refused With clothes 164.182098075460 BP Diastolic BP Location Tested BP Systolic [...] in lbs Pre/Post Dialysis Refused With clothes 165.179656557064 BP Diastolic BP Location Tested BP Systolic [...] Type Weight in lbs Pre/Post Dialysis Refused 171.766871853012 BP Diastolic BP Location Tested BP Systolic [...] in lbs Pre/Post Dialysis Refused With clothes 175.338285895584 BP Diastolic BP Location Tested BP Systolic [...] Type Weight in lbs Pre/Post Dialysis Refused 178.305014215477 BP Diastolic BP Location Tested BP Systolic [...] Type Weight in lbs Pre/Post Dialysis Refused 180.381471073684 BP Diastolic BP Location Tested BP Systolic [...] Type Weight in lbs Pre/Post Dialysis Refused 177.872272009154 BP Diastolic BP Location Tested BP Systolic [...]
--- OUTSIDE RECORDS SUMMARY | 2025-05-22 10:11 | XMS_ITS | Clinical Summary ---
Author Organization [facility] Address [address] [place] [address] Care Team Providers Care Walking Dragline Oiler Name Role Phone Geovanna Pryor NP Primary [...] P M CDT Height 166.4 cm (5' 5.5) 02/25/2018 1:13 PM CDT Body Mass Index [...] COVID-19 Vaccine ( - 2023- season) 2024 Hepatitis B Vaccines Completed 01/27/2005, 2004, 2004 Pneumococcal Vaccine: Pediatrics (0 to 5 Years) and At-Risk Patients (6 to 49 Years) Aged Out 09/24/2005, 01/27/2005, 2004 No longer eligible based on patient's age to complete this topic Meningococcal Vaccine Aged Out No bulmaro nina eligible based on patient's age to complete this topic RSV Immunizations Under 20 Months Aged Out No longer eligible based on patient's age to complete this topic Care Teams Walking Dragline Oiler Relationship Specialty Start Date End Date Geovanna Pryor NP [address] [place] [address] PCP - General Nurse Practitioner Family 06/17/19 Geovanna Pryor NP [address] [place] [address] 06/17/19
--- OUTSIDE RECORDS SUMMARY | 2025-05-22 10:11 | XMS_ITS ---
Author Organization Unknown Address [address] [place] [phone] Phone Care Team Providers Care Director Project Management Name Role Phone Blanco Gallego Attending Unavailable [...] em Smoking History Never smoker (Never Smoked) 265875330 SNOMED CT Sex Female Sexual Orientation Straight or Heterosexual 45966009 SNOMED CT Gender Identity Female [id number] [address] Vital Signs Vital Sign Value Unit Cache Value Cache Unit Date/Time Recent/Initial? Code Code System Body Mass Index 21.85 kg/m2 06/07/2022 14:23 Initial 38345 -[address] [facility] Body Mass Index Percentile 57 % 06/07/2022 14:23 Initial 65881 -[address] [facility] Systolic Blood Pressure 118 mm[Hg] 06/07/2022 14:23 Initial 8480- [address] [facility] Diastolic Blood Pressure 72 mm[Hg] 06/07/2022 14:23 Initial 8462- [address] [facility] Body Surface Area 1.75 m2 06/07/2022 14:23 Initial 3140- [address] [facility] Height 171.450 0 cm 67.50 in 06/07/2022 14:23 Initial 8302- [address] [facility] O2 Saturation 99 % 2021 14:23 Initial 91613 -[address] [facility] Pulse 107.0 /min 06/07/2022 14:23 Initial 8867- [address] [facility] Respiration 20 /min 06/07/20 14:23 Initial 9279- [address] [facility] Temperature 36.6 Antonella 97.8 F 06/07/20 14:23 Initial 8310- [address] [facility] Weight 64.23 kg 141.60 lbs 06/07/2022 14:23 Initial 87441 -[address] [facility] Medications Medication Start Date End Date Route Frequency Dose Code Code System Medication Instructions Home Meds predniSONE 50MG Oral Tablet 06/07/2022 07/31/2022 By Mouth Daily 1 TABLET 647252 RxNorm 1 TABLET By Mouth Daily 30MCG-0.15MG-NA Oral Tablet 06/07/2022 09/12/2022 By Mouth Daily 1 TABLET 480908 RxNorm 1 TABLET By Mouth Daily Diflucan 150MG Oral Tablet 08/07/2022 09/12/2022 By Mouth x1 NOW 1 TABLET 088312 RxNorm 1 TABLET By Mouth x1 NOW FOR MARCH REPEAT IN 72 HOURS Radha 28 3MG-0.02MG Oral Tablet 09/12/2022 12/25/2022 By Mouth Once a day 1 TABLET RxNorm 1 TABLET By Mouth Once a day Medrol Dosepak 4MG Oral Tablet 12/25/2022 02/20/2023 By Mouth As Directed 1 PACK 506532 RxNorm 1 PACK By Mouth As Directed Methocarbamol 750MG Oral Tablet 12/25/2022 03/12/2023 By Mouth As needed every 8 hr 593407 RxNorm 1-2 TABLET By Mouth As needed every 8 hr Anel-28 30 MCG-0.15 MG; NA Oral Tablet 12/25/2022 03/12/2023 By Mouth Daily 1 TABLET 989994 RxNorm 1 TABLET By Mouth Daily Macrobid 100MG Oral Capsule 02/20/2023 03/12/2023 By mouth Twice a day 1 TABLET 910090 RxNorm 1 TABLET By mouth Twice a day X 7 DAYS Pyridium 100MG Oral Tablet 02/20/2023 03/12/2023 By mouth As needed every 8 hr 1 TABLET 3610835 RxNorm 1 TABLET By mouth As needed every 8 hr for urinary pain ZyrTEC Allergy 10MG Oral Capsule, Liquid Filled 03/12/2023 Unknown By Mouth Daily 1 CAPSULE 1363270 RxNorm 1 CAPSULE By Mouth Daily Fluticasone 0.05MG/1Actuati on Nasal [place] 03/12/2023 Unknown Nasal Daily 1 Sprays 8987697 RxNorm 1 Spr ays Nasal Daily Azithromycin 500MG Oral Tablet 06/04/2024 Unknown By Mouth x1 NOW 2 TABLET 277959 RxNorm 2 TABLET By Mouth x1 NOW [...] Status Code Code System SEASONAL ALLERGY active 688882615 SNO MED-CT FAMILY PLANNING 06/20/2020 active 899881452 SNO MED-CT BITE OF INSECT active 635763141 SNOME D-CT ES OF VAGINA 08/07/2022 active 62125335 S NOMED-CT MENORRHAGIA active 995122559 SNOMED-C T PAINFUL NECK active 17201256 SNOMED- CT ADHD OF CHILDHOOD 07/22/2019 resolved 183234112 S NOMED-CT SEASONAL NASAL ALLERGY 07/22/2019 resolved 930492 001 SNOMED-CT HISTORY OF [place] 07/22/2019 resolved 9976269 08 SNOMED-CT Allergies and Adverse Reactions Allergy Substance Reaction Severity Start Date Concern Status Co de Code System Active No Known Drug Allergies Active 624747023 SNOMED-CT Plan of Treatment Description Due Date Details Instructions DEPRESSION SCREENING DUE 06/20/2021 Encounters Encounter Diagnosis Start Date Code Code Sys tem Well child visit 06/07/2022 925818002 SNOMED-CT Personal Care Team Section Progress Notes [facility] 06/07/2022 15:22 All Demographics Patient Name Age Sex Visit Number Admission Date/Time Attending Physician Date of Service Room and Bed Emergency Contact NELA MANZANARES 2005 16 years Female [id number] 06/07/2022 14:22 Julián Simeon 06/07/2022 402 06/07/2022 14:25 Accompanied By: Parent Parent, mother X. Parent, father Guardian Relative director of food and beverage services Caregiver Family Protective services Friend Healthcare provider Law enforcement Spouter / EMS Spouse / SO Other: Preferred Language: [place]. Vital Signs: This Visit Date/Time BP (mm/Hg) [...] environment active No Known Drug Allergies medication [id number] Nutrition X. Daily fruits and vegetables Iron [...] ALL CAPITALIZED = Focus area for this Bright Futures Visit Constitutional: None. EYES: None. Head, EARS, NOSE, AND THROAT: None. CARDIOVASCULAR: None. RESPIRATORY: None. GASTROINTESTINAL: None. GENITOURINARY: None. MUSCULOSKELETAL: None. SKIN: None. NEUROLOGICAL: None. Other: None. PHYSICAL EXAMINATION ALL CAPITALIZED and = Focus Area for this Bright Futures Visit GENERAL: x Well-appearing adolescent x Normal [...] Record reviewed Up-to-date for age Administered Today: [place] Screening Depression Screening (annually) Screening Tool Used: [...] year Next Visit: Referral to: 16 y/o [facility] - Anticipatory guidance and bright futures discussed. Discussed control methods and will start patient on Anel. Patient to notify office if she is having any side effects. Patient states she is having anxiety, offered multiple options for managing anxiety, patient declines at this time.
--- OUTSIDE RECORDS SUMMARY | 2025-05-22 10:11 | XMS_ITS ---
Author Organization Unknown Address [address] [place] [address] [phone] Phone Care Team Providers Care Administration Physician Name Role Phone ATIYA Lezama MD Attending [...] em Smoking History Never smoker (Never Smoked) 630993495 SNOMED CT Sex Female Sexual Orientation Straight or Heterosexual 11373570 SNOMED CT Gender Identity Female [id number] [address] Vital Signs Vital Sign Value Unit Keith Value Keith Unit Date/Time Recent/Initial? Code Code System Body Mass Index 22.93 kg/m2 09/12/2022 17:59 Initial 62389 -5 [facility] Body Mass Index Percentile 67 % 09/12/2022 17:59 Initial 30604 -9 [facility] Systolic Blood Pressure 100 mm[Hg] 09/12/2022 17:59 Initial 8480- 6 [facility] Diastolic Blood Pressure 70 mm[Hg] 09/12/2022 17:59 Initial 8462- 4 [facility] Body Surface Area 1.81 m2 09/12/2022 17:59 Initial 3140- 1 [facility] Height 172.720 0 cm 68.00 in 09/12/2022 17:59 Initial 8302- 2 [facility] O2 Saturation 99 % 2021 17:59 Initial 14318 -5 [facility] Pulse 95.0 /min 09/12/2022 17:59 Initial 8867- 4 [facility] Respiration 18 /min 09/12/20 17:59 Initial 9279- 1 [facility] Temperature 36.9 Antonella 98.4 F 09/12/20 17:59 Initial 8310- 5 [facility] Weight 68.40 kg 150.80 lbs 09/12/2022 17:59 Initial 76794 -7 [facility] Medications Medication Start Date End Date Route Frequency Dose Code Code System Medication Instructions Home Meds [place]-28 30MCG-0.15MG-NA Oral Tablet 06/07/2022 09/12/2022 By Mouth Daily 1 TABLET 524764 RxNorm 1 TABLET By Mouth Daily Diflucan 150MG Oral Tablet 08/07/2022 09/12/2022 By Mouth x1 NOW 1 TABLET 563304 RxNorm 1 TABLET By Mouth x1 NOW FOR MARCH REPEAT IN 72 HOURS Radha 28 3MG-0.02MG Oral Tablet 09/12/2022 12/25/2022 By Mouth Once a day 1 TABLET RxNorm 1 TABLET By Mouth Once a day Medrol Dosepak 4MG Oral Tablet 12/25/2022 02/20/2023 By Mouth As Directed 1 PACK 502295 RxNorm 1 PACK By Mouth As Directed Methocarbamol 750MG Oral Tablet 12/25/2022 03/12/2023 By Mouth As needed every 8 hr 080482 RxNorm 1-2 TABLET By Mouth As needed every 8 hr Anel-28 30 MCG-0.15 MG; NA Oral Tablet 12/25/2022 03/12/2023 By Mouth Daily 1 TABLET 737900 RxNorm 1 TABLET By Mouth Daily Macrobid 100MG Oral Capsule 02/20/2023 03/12/2023 By mouth Twice a day 1 TABLET 273027 RxNorm 1 TABLET By mouth Twice a day X 7 DAYS Pyridium 100MG Oral Tablet 02/20/2023 03/12/2023 By mouth As needed every 8 hr 1 TABLET 8912371 RxNorm 1 TABLET By mouth As needed every 8 hr for urinary pain ZyrTEC Allergy 10MG Oral Capsule, Liquid Filled 03/12/2023 Unknown By Mouth Daily 1 CAPSULE 6842448 RxNorm 1 CAPSULE By Mouth Daily Fluticasone 0.05MG/1Actuatio n Nasal [place] 03/12/2023 Unknown Nasal Daily 1 Sprays 0379330 RxNorm 1 Spra ys Nasal Daily Azithromycin 500MG Oral Tablet 06/04/2024 Unknown By Mouth x1 NOW 2 TABLET 756816 RxNorm 2 TABLET By Mouth x1 NOW [...] Status Code Code System SEASONAL ALLERGY active 226621988 SNO MED-CT FAMILY PLANNING 06/20/2020 active 177507118 SNO MED-CT BITE OF INSECT active 618174397 SNOME D-CT ES OF VAGINA 08/07/2022 active 60507218 S NOMED-CT MENORRHAGIA active 993044866 SNOMED-C T PAINFUL NECK active 02919008 SNOMED- CT ADHD OF CHILDHOOD 07/22/2019 resolved 018238724 S NOMED-CT SEASONAL NASAL ALLERGY 07/22/2019 resolved 713457 001 SNOMED-CT HISTORY OF [place] 07/22/2019 resolved 6875052 08 SNOMED-CT Allergies and Adverse Reactions Allergy Substance Reaction Severity Start Date Concern Status Co de Code System Active No Known Drug Allergies Active 517143261 SNOMED-CT Plan of Treatment Description Due Date Details Instructions DEPRESSION SCREENING DUE 06/20/2021 Future Order Description Future Order Date Futu re Order Loinc: TSH 09/12/2022 LOINC: 70525-6 FREE T4 09/12/2022 LOINC: 3024-7 CBC W DIFF 09/12/2022 LOINC: 85968-2 COMPREHENSIVE METABOLIC PANEL 09/12/2022 L OINC: 14407-6 PT (PROTIME) 09/12/2022 LOINC: 6301-6 Encounters Encounter Diagnosis Start Date Code Code Sys tem Excessive and frequent menstruation 09/12/2022 93156 1003 SNOMED-CT Personal Care Team Section Progress Notes [facility] 09/13/2022 09:49 Admission Date/Time: 09/12/2022 13:21 Rachael Andersen MD Clinic Visit Note Chief Complaint: DISCUSS BC Has the patient received a COVID Vaccine? Yes Nurse Note: this nurse note is documented by Opal Ly CMA 17 yr old female present to [facility] today to discuss BC History of Present Illness: An 17-year-old presents to [facility] today to discuss BC. Patient states [...] due to pain. Patient is currently on [place] for BC. Patient states when she first took the [place] she noticed tissue came out of her [...] records Referring and communicating with other health progressive care unit registered nurse Obtaining and/or reviewing separately obtained history [...]
--- OUTSIDE RECORDS SUMMARY | 2025-05-22 10:11 | XMS_ITS | Data Portability ---
Author Organization [facility] Address [address] [place] [address] Assessment No assessment recorded. Plan of Treatment Reminders Order Date Submit Date Provider Last Modified By Organization Details Last Modified Time Details Appointments None recorded. Lab None recorded. Referral None recorded. Procedures None recorded. Surgeries None recorded. Imaging None recorded. Medication Orders Medrol (Rex) 4 mg tablets in a dose pack 2022 023 [facility], [facility] [place], [place], [phone], 16:54:18 cyclobenzap rine 5 mg tablet 2022 023 [facility], [facility] [place], [place], [phone], 16:54:27 Patient TargetsNo targets recorded. Patient InstructionsNo instructions recorded. Reason for Referral None Reported. Results Created Date Observation Date Name Description Value Unit Range Abnormal Flag Note LastModifiedBy Organization Detail LastModifiedTime Result Notes None recorded. Problems Name Problem SNOMED Code Status Onset Date Resolution Date Notes Provider Name and Address Organization Details Recorded Time Neck pain 69678268 Active 12/19/19 23 Sarbjit Jenkins [facility] 12/19/2022 16:44:06 Problem Notes None [...] in Arterial blood by Pulse oximetry Systolic And Diastolic Provider Name and Address Organization Details Last Updated DateTime 3 99149.5 9 g 75 % 24 kg/m2 172.72 cm 17 /min 98.7 [degF] 75 /min 100 % 100 % 120/70 mm[Hg] Analilia Lemon [facility] 16:21:52 Social History Question Answer Notes LastModified by Organizat ion Details LastModified Time Tobacco Smoking Status Never Smoker Analilia Lemon [facility] 12/19/2022 16:19:49 What Is Your Level Of Caffeine Consumption? None [email or web address] Information not available 12/19/2022 In The 14 Days Before Symptom Onset, Have You Had Close Contact With A Laboratory-confirm ed COVID-19 While That Case Was Ill? No [email or web address] Information n ot available 12/19/2022 In The 14 Days Before Symptom Onset, Have You Had Close Contact With A Person Who Is Under Investigation For COVID-19 While That Person Was Ill? No [email or web address] Information not available 12/19/2022 What Was The Date Of Your Most Recent Tobacco Screening? 12/19/2022 [email or web address] Information not available 12/19/2022 Have You Recently Traveled Abroad? No [email or web address] Information not available 12/19/2022 Sex: Unknown Functional Status Question Answer Note LastModified by Organizat ion Details LastModified Time Do you use any illicit or recreational drugs? No [email or web address] Information not available 12/19/2022 Do you or have you ever used any other forms of tobacco or nicotine? Yes [email or web address] Information not available 12/19/2022 What is your level of alcohol consumption? None [email or web address] Information not available 12/19/2022 Do you or have you ever used smokeless tobacco? Never used smokeless tobacco [email or web address] Information not available 12/19/2022 Do you or have you ever used e-cigarettes or vape? Former user of electronic cigarettes quit about 4 months ago [email or web address] Information not available 12/19/2022 Mental Status None recorded. Family History Nothing Reported. Medical History No medical history recorded. Gynecological History Statement/Question Response Date of LMP 12/04/2022 Obstetrics History GPAL:G 0 P 0 0 0 0 Immunizations Vaccine Type Date Status Note Provider Nam e and Address Organization Details Recorded Time Hib, unspecified formulation 5 desiree Lilly null, [facility] 06/20/2023 14:41:02 Hib, unspecified formulation 5 desiree Lilly null, [facility] 06/20/2023 14:41:02 Hib, unspecified formulation 5 desiree Lilly null, [facility] 06/20/2023 14:41:02 HPV9 8 desiree Lilly null, [facility] 06/20/2023 14:41:02 HPV9 9 desiree Lilly null, [facility] 06/20/2023 14:41:02 IPV 5 desiree Lilly null, [facility] 06/20/2023 14:41:02 IPV 5 desiree Lilly null, [facility] 06/20/2023 14:41:02 MMR 5 desiree Lilly null, [facility] 06/20/2023 14:41:02 MMR 9 completed Rebecca Lilly null, [facility] 06/20/2023 14:41:02 COVID-19, mRNA, LNP-S, PF, 30 mcg/0.3 mL dose 1 completed Rebecca Lilly null, [facility] 06/20/2023 14:41:02 COVID-19, mRNA, LNP-S, PF, 30 mcg/0.3 mL dose 1 completed Rebecca Lilly null, [facility] 06/20/2023 14:41:02 pneumococcal conjugate PCV 7 5 completed Rebecca Lilly null, [facility] 06/20/2023 14:41:02 pneumococcal conjugate PCV 7 5 completed Rebecca Lilly null, [facility] 06/20/2023 14:41:02 pneumococcal conjugate PCV 7 5 completed Rebecca Lilly null, [facility] 06/20/2023 14:41:02 DTaP-IPV 9 completed Rebecca Lilly null, [facility] 06/20/2023 14:41:02 influenza, unspecified formulation 6 completed Rebecca Lilly null, [facility] 06/20/2023 14:41:02 Tdap 8 completed Rebecca Lilly null, [facility] 06/20/2023 14:41:02 varicella 5 completed Rebecca Lilly null, [facility] 06/20/2023 14:41:02 varicella 9 completed Rebecca Lilly null, [facility] 06/20/2023 14:41:02 influenza, split (incl. purified surface antigen) 0 completed Rebecca Lilly null, [facility] 06/20/2023 14:41:02 Hep B, adolescent or pediatric 5 desiree Lilly null, [facility] 06/20/2023 14:41:02 Hep B, adolescent or pediatric 4 completed Rebecca Lilly null, [facility] 06/20/2023 14:41:02 meningococcal MCV4P 8 desiree acosta, [facility] 06/20/2023 14:41:02 meningococcal MCV4P 0 desiree acosta, [facility] 06/20/2023 14:41:02 DTaP 5 desiree Rebecca Lilly dave, [facility] 06/20/2023 14:41:02 DTaP 5 desiree Rebeccaandrea acosta, [facility] 06/20/2023 14:41:02 DTaP-Hep B-IPV 5 desiree Rebecca Maxx dave, [facility] 06/20/2023 14:41:02 Influenza, split virus, quadrivalent, PF 8 desiree acosta, [facility] 06/20/2023 14:41:02 Past Encounters Encounter ID Performer Location Encounter Start Date Encounter Closed Date Diagnosis/Indication Diagnosis SNOMED-CT Code Diagnosis ICD10 Code Diagnosis Note [id number] Sarbjit Jenkins NP [address] [address] 12/19/2022 15:59:56 12/19/2022 16:54:35 Neck pain 43472306 M54.2 No radiculopa thy.Trigge r point? Apply [...] Member ID [place] Member ID Guarantor Name 04/28/2025 1 [facility] (MEDICAID HMO) [id number] Lani Ho [id number] Lani Ho Notes Date Note Type Note [...] missing school yesterday, and today. Sarbjit acosta, [facility] 12/19/2022 16:51:04 OBGyn Episode No OBEpisode recorded.
--- OUTSIDE RECORDS SUMMARY | 2025-05-22 10:12 | XMS_ITS ---
Author Organization Unknown Address [address], [place] [phone] Phone Care Team Providers Care Highway Engineer Name Role Phone mattyKlausSHERMAN Machado Social History Type Status Start Date End Date Code Code Syst em Smoking History Never smoker (Never Smoked) 542653857 SNOMED CT Sex Female Sexual Orientation Straight or Heterosexual 55678067 SNOMED CT Gender Identity Female 90618688847691 [address] Medications Medication Start Date End Date Route Frequency Dose Code Code System Medication Instructions Home Meds ZyrTEC Allergy 10MG Oral Capsule, Liquid Filled 03/12/2023 Unknown By Mouth Daily 1 CAPSULE 6627534 RxNorm 1 CAPSULE By Mouth Daily Fluticasone 0.05MG/1Actuatio n Nasal [place] 03/12/2023 Unknown Nasal Daily 1 Sprays 6387663 RxNorm 1 Spra ys Nasal Daily Azithromycin 500MG Oral Tablet 06/04/2024 Unknown By Mouth x1 NOW 2 TABLET 179352 RxNorm 2 TABLET By Mouth x1 NOW [...] Status Code Code System SEASONAL ALLERGY active 048074036 SNO MED-CT FAMILY PLANNING 06/20/2020 active 098061366 SNO MED-CT BITE OF INSECT active 305073096 SNOME D-CT ES OF VAGINA 08/07/2022 active 10544901 S NOMED-CT MENORRHAGIA active 500310457 SNOMED-C T PAINFUL NECK active 95516718 SNOMED- CT ADHD OF CHILDHOOD 07/22/2019 resolved 590435009 S NOMED-CT SEASONAL NASAL ALLERGY 07/22/2019 resolved 557222 001 SNOMED-CT HISTORY OF [place] 07/22/2019 resolved 3530968 08 SNOMED-CT Allergies and Adverse Reactions Allergy Substance Reaction Severity Start Date Concern Status Co de Code System Active No Known Drug Allergies Active 914634129 SNOMED-CT Plan of Treatment Description Due Date Details Instructions DEPRESSION SCREENING DUE 06/20/2021 Encounters Encounter Diagnosis Start Date Code Code Sys tem Dysuria 06/03/2024 92275617 SNOMED-CT Personal Care Team Section
--- OUTSIDE RECORDS SUMMARY | 2025-05-22 10:12 | XMS_ITS ---
Author Organization Unknown Address [address], [place] [phone] Phone Care Team Providers Care Roller Operator Name Role Phone JOSUE FULTON EDMOND Attending Unavailable Results CULTURE YEAST, WITH IDENTIFI CATION - Collect Date/Time: 02/20/2023 18:42 [facility] ID: [id number] [address], [place], [phone] LOINC: 5048-4 Test Value Unit Reference Range Code Code System Flag SOURCE: VAGINAL STATUS: FINAL ISOLATE 1: Margoth albicans A TRICHOMONAS VAGINALIS FEMALE RNA QUAL - Collect Date/Time: 02/20/2023 18:40 [facility] ID: [id number] [address], [place], [phone] LOINC: 36870-0 Test Value Unit Reference Range Code Code System Flag TRICHOMONAS VAGINALISRNA, QL TMA NOT DETECTED NOT DETECTED GC/CHLAMYDIA PCR [facility] ct Date/Time: 02/20/2023 18:40 [facility] ID: [id number] [address], [place], [phone] LOINC: 5048-4 Test Value Unit Reference Range Code Code System Flag GONORRHEA PCR NOT DETECTED NORMAL: NOT DETECTED CHLAMYDIA PCR NOT DETECTED NORMAL: NOT DETECTED BACTERIAL VAGINOSIS RAPID TE ST - Collect Date/Time: 02/20/2023 18:40 [facility] ID: [id number] [address], [place], [phone] LOINC: 6410-5 Test Value Unit Reference Range Code Code System Flag BACTERIAL VAGINOSIS NEGATIVE NORMAL: NEGATIVE Social History Type Status Start Date End Date Code Code Syst em Smoking History Never smoker (Never Smoked) 947519304 SNOMED CT Sex Female Sexual Orientation Straight or Heterosexual 51302048 SNOMED CT Gender Identity Female [id number] [address] Medications Medication Start Date End Date Route Frequency Dose Code Code System Medication Instructions Home Meds Methocarbamol 750MG Oral Tablet 12/25/2022 03/12/2023 By Mouth As needed every 8 hr 860763 RxNorm 1-2 TABLET By Mouth As needed every 8 hr [place]-28 30 MCG-0.15 MG; NA Oral Tablet 12/25/2022 03/12/2023 By Mouth Daily 1 TABLET 949300 RxNorm 1 TABLET By Mouth Daily Macrobid 100MG Oral Capsule 02/20/2023 03/12/2023 By mouth Twice a day 1 TABLET 235051 RxNorm 1 TABLET By mouth Twice a day X 7 DAYS Pyridium 100MG Oral Tablet 02/20/2023 03/12/2023 By mouth As needed every 8 hr 1 TABLET 3449224 RxNorm 1 TABLET By mouth As needed every 8 hr for urinary pain ZyrTEC Allergy 10MG Oral Capsule, Liquid Filled 03/12/2023 Unknown By Mouth Daily 1 CAPSULE 2707732 RxNorm 1 CAPSULE By Mouth Daily Fluticasone 0.05MG/1Actuati on Nasal [place] 03/12/2023 Unknown Nasal Daily 1 Sprays 2251296 RxNorm 1 Spr ays Nasal Daily Azithromycin 500MG Oral Tablet 06/04/2024 Unknown By Mouth x1 NOW 2 TABLET 947421 RxNorm 2 TABLET By Mouth x1 NOW [...] Status Code Code System SEASONAL ALLERGY active 871918624 SNO MED-CT FAMILY PLANNING 06/20/2020 active 602721153 SNO MED-CT BITE OF INSECT active 785528227 SNOME D-CT MARGOTH OF VAGINA 08/07/2022 active 40029305 S NOMED-CT MENORRHAGIA active 708858700 SNOMED-C T PAINFUL NECK active 09526807 SNOMED- CT ADHD OF CHILDHOOD 07/22/2019 resolved 114184697 S NOMED-CT SEASONAL NASAL ALLERGY 07/22/2019 resolved 863527 001 SNOMED-CT HISTORY OF [place] 07/22/2019 resolved 8302656 08 SNOMED-CT Allergies and Adverse Reactions Allergy Substance Reaction Severity Start Date Concern Status Co de Code System Active No Known Drug Allergies Active 207476726 SNOMED-CT Plan of Treatment Description Due Date Details Instructions DEPRESSION SCREENING DUE 06/20/2021 Encounters Encounter Diagnosis Start Date Code Code Sys tem Dysuria 02/20/2023 28473557 SNOMED-CT Personal Care Team Section
--- OUTSIDE RECORDS SUMMARY | 2025-05-22 10:12 | XMS_ITS | Clinical Summary ---
Author Organization [facility] Address [address] [place] [address] Care Team Providers Care Optical Mechanic Apprentice Name Role Phone Faustino Matta MD Primary Care Provider [phone] Source Comments [facility],non-owned Affiliates and Associated Physician Practices is amultiple site organization consisting of ambulatory clinics and hospital sitesin [place], [place], [place] and [place]. This disclosure is being madepursuant to the Care Everywhere program and may not contain all information available regarding this patient. Last updated 18.[facility] Allergies No known active allergies Medications * Be aware that medications may not be up to date on this document. Alwaysverify current medications with the patient. Vit-Fe Fumarate-FA ( vitamin) 28-0.8 MG tablet Take 1 (one) tablet by mouth once daily Active Active Problems Problem Noted Date Diagnosed Date Abnormal genetic test in 08/12/2024 Rubella non-immune status, antepartum 08/12/2024 Rh negative, antepartum 08/12/2024 Family History Relation Name Status Comments Father [...] drink = 0.6 oz pur e alcohol) Comments No Sex and Gender Information Value Date Recorded Sex Assigned at Not on file Legal Sex Female 2:12 PM CHANGE HOUSE ATTENDANT Gender Identity Not on file Sexual Orientation [...] 2:33 PM CDT Height 172.7 cm (5' 8) 08/12/2024 2:33 PM CDT Body Mass Index [...] - 2023-2 5 season) 2024 03/16/2021, 02/21/2021 DEPRESSION SCREENING 11/11/2024 INFLUENZA VACCINE (#1) 2025 8, 08/24/2010, 10/31/2006 ZOSTER VACCINE (1 of 2) 2054 HIB VACCINE Aged Out No longer eligi ble based on patient's age to complete this topic MENINGOCOCCAL GROUPS A/C/Y/W VACCINE Aged Out No longer eligible b ased on patient's age to complete this topic PNEUMOCOCCAL VACCINE Aged Out No long er eligible based on patient's age to complete this topic Insurance [facility] Care Teams Optical Mechanic Apprentice Relationship Specialty Start Date End Date Faustino Matta MD [address] [address] PCP - General Pediatrics 08/05/12
--- OUTSIDE RECORDS SUMMARY | 2025-05-22 10:12 | XMS_ITS ---
Author Organization Unknown Address [address] [place] [address] [phone] Phone Care Team Providers Care Environmental Manager Name Role Phone JOSUE FULTON Attending Unavailable [...] MICR O - Collect Date/Time: 02/20/2023 18:44 [facility] ID: [id number] [address] [place] [address], [phone] LOINC: Test Value Unit Reference Range Code [...] TEST - Colle ct Date/Time: 02/20/2023 18:43 [facility] ID: [id number] [address] [place] [address], [phone] LOINC: Test Value Unit Reference Range Code Code System Flag TEST PERFORMED URINE PREG (URINE) NEGATIVE LOT#: [id number] EXP DATE: 2023-12-11 QC: ACCEPTABLE Social History Type Status Start Date End Date Code Code Syst em Smoking History Never smoker (Never Smoked) 400468340 SNOMED CT Sex Female Sexual Orientation Straight or Heterosexual 66678077 SNOMED CT Gender Identity Female [id number] [address] Vital Signs Vital Sign Value Unit [place] Value [place] Unit Date/Time Recent/Initial? Code Code System Body Mass Index 24.50 kg/m2 02/20/2023 18:36 Initial 63419 -5 LOINC Body Mass Index Percentile 77 % 02/20/2023 18:36 Initial 39132 -9 LOINC Systolic Blood Pressure 112 mm[Hg] 02/20/2023 18:36 Initial 8480- 6 LOINC Diastolic Blood Pressure 70 mm[Hg] 02/20/2023 18:36 Initial 8462- 4 [facility] Body Surface Area 1.85 m2 02/20/2023 18:36 Initial 3140- 1 LOINC Height 171.450 0 cm 67.50 in 02/20/2023 18:36 Initial 8302- 2 INC O2 Saturation 98 % 2022 18:36 Initial 58652 -5 [facility] Pulse 91.0 /min 02/20/2023 18:36 Initial 8867- 4 [facility] Temperature 37.2 Antonella 98.9 F 02/21/20 18:36 Initial 8310- 5 [facility] Weight 72.03 kg 158.80 lbs 02/20/2023 18:36 Initial 34710 -7 [facility] Medications Medication Start Date End Date Route Frequency Dose Code Code System Medication Instructions Home Meds Medrol Dosepak 4MG Oral Tablet 12/25/2022 02/20/2023 By Mouth As Directed 1 PACK 856978 RxNorm 1 PACK By Mouth As Directed Methocarbamol 750MG Oral Tablet 12/25/2022 03/12/2023 By Mouth As needed every 8 hr 431477 RxNorm 1-2 TABLET By Mouth As needed every 8 hr [place]el-28 30 MCG-0.15 MG; NA Oral Tablet 12/25/2022 03/12/2023 By Mouth Daily 1 TABLET 490182 RxNorm 1 TABLET By Mouth Daily Macrobid 100MG Oral Capsule 02/20/2023 03/12/2023 By mouth Twice a day 1 TABLET 698817 RxNorm 1 TABLET By mouth Twice a day X 7 DAYS Pyridium 100MG Oral Tablet 02/20/2023 03/12/2023 By mouth As needed every 8 hr 1 TABLET 0989202 RxNorm 1 TABLET By mouth As needed every 8 hr for urinary pain ZyrTEC Allergy 10MG Oral Capsule, Liquid Filled 03/12/2023 Unknown By Mouth Daily 1 CAPSULE 1705875 RxNorm 1 CAPSULE By Mouth Daily Fluticasone 0.05MG/1Actuati on Nasal [place] 03/12/2023 Unknown Nasal Daily 1 Sprays 9600901 RxNorm 1 Spr ays Nasal Daily Azithromycin 500MG Oral Tablet 06/04/2024 Unknown By Mouth x1 NOW 2 TABLET 244828 RxNorm 2 TABLET By Mouth x1 NOW [...] Status Code Code System SEASONAL ALLERGY active 842344817 SNO MED-CT FAMILY PLANNING 06/20/2020 active 067395492 SNO MED-CT BITE OF INSECT active 410525842 SNOME D-CT ES OF VAGINA 08/07/2022 active 56070940 S NOMED-CT MENORRHAGIA active 416343162 SNOMED-C T PAINFUL NECK active 20092594 SNOMED- CT ADHD OF CHILDHOOD 07/22/2019 resolved 893153576 S NOMED-CT SEASONAL NASAL ALLERGY 07/22/2019 resolved 416161 001 SNOMED-CT HISTORY OF CHICKENPOX 07/22/2019 resolved 7787922 08 SNOMED-CT Allergies and Adverse Reactions Allergy Substance Reaction Severity Start Date Concern Status Co de Code System Active No Known Drug Allergies Active 760498957 SNOMED-CT Plan of Treatment Description Due Date Details Instructions DEPRESSION SCREENING DUE 06/20/2021 Future Order Description Future Order Date Futu re Order Loinc: CULTURE URINE 02/20/2023 LOINC: 630-4 TRICHOMONAS VAGINALIS FEMALE RNA QUAL 3 LOINC: 82102-6 GC/CHLAMYDIA PCR [place] 02/20/2023 LOINC: 448 06-8 CULTURE YEAST, WITH IDENTIFICATION 02/20/2023 LOINC: 48425-2 BACTERIAL VAGINOSIS RAPID TEST 02/20/2023 LOINC: 6410-5 Encounters Encounter Diagnosis Start Date Code Code Sys tem Urinary tract infectious disease 02/20/2023 06690452 SNOMED-CT Personal Care Team Section Progress Notes [facility] 02/20/2023 [...] up. This examination was transcribed using the Marley [employer] voice recognition system without human camera repairer. In an effort to expedite patient care, this report has not been adjusted for typographical, or medical or syntax by a trained medical insurance coding specialist. Allergy Table Allergen Type Reaction seasonal [...] NEGATIVE 02/20/2023 18:38 02/20/2023 18:43 final LOT#: [id number] 02/20/2023 18:38 02/20/2023 18:43 final EXP DATE: [...]
--- OUTSIDE RECORDS SUMMARY | 2025-05-22 10:12 | XMS_ITS ---
Author Organization Unknown Address [address] [place] [address] [phone] Phone Care Team Providers Care Core Placer Name Role Phone Blanco Gallego Attending Unavailable [...] em Smoking History Never smoker (Never Smoked) 026575896 SNOMED CT Sex Female Sexual Orientation Straight or Heterosexual 68021585 SNOMED CT Gender Identity Female [id number] [address] Medications Medication Start Date End Date Route Frequency Dose Code Code System Medication Instructions Home Meds Medrol Dosepak 4MG Oral Tablet 12/25/2022 02/20/2023 By Mouth As Directed 1 PACK 120662 RxNorm 1 PACK By Mouth As Directed Methocarbamol 750MG Oral Tablet 12/25/2022 03/12/2023 By Mouth As needed every 8 hr 711308 RxNorm 1-2 TABLET By Mouth As needed every 8 hr [place]-28 30 MCG-0.15 MG; NA Oral Tablet 12/25/2022 03/12/2023 By Mouth Daily 1 TABLET 973322 RxNorm 1 TABLET By Mouth Daily Macrobid 100MG Oral Capsule 02/20/2023 03/12/2023 By mouth Twice a day 1 TABLET 810391 RxNorm 1 TABLET By mouth Twice a day X 7 DAYS Pyridium 100MG Oral Tablet 02/20/2023 03/12/2023 By mouth As needed every 8 hr 1 TABLET 1029195 RxNorm 1 TABLET By mouth As needed every 8 hr for urinary pain ZyrTEC Allergy 10MG Oral Capsule, Liquid Filled 03/12/2023 Unknown By Mouth Daily 1 CAPSULE 9687725 RxNorm 1 CAPSULE By Mouth Daily Fluticasone 0.05MG/1Actuati on Nasal [place] 03/12/2023 Unknown Nasal Daily 1 Sprays 5922258 RxNorm 1 Spr ays Nasal Daily Azithromycin 500MG Oral Tablet 06/04/2024 Unknown By Mouth x1 NOW 2 TABLET 834468 RxNorm 2 TABLET By Mouth x1 NOW [...] Status Code Code System SEASONAL ALLERGY active 192109414 SNO MED-CT FAMILY PLANNING 06/20/2020 active 990871902 SNO MED-CT BITE OF INSECT active 807074511 SNOME D-CT ES OF VAGINA 08/07/2022 active 45590462 S NOMED-CT MENORRHAGIA active 165522171 SNOMED-C T PAINFUL NECK active 12776430 SNOMED- CT ADHD OF CHILDHOOD 07/22/2019 resolved 444815841 S NOMED-CT SEASONAL NASAL ALLERGY 07/22/2019 resolved 379555 001 SNOMED-CT HISTORY OF CHICKENPOX 07/22/2019 resolved 0557561 08 SNOMED-CT Allergies and Adverse Reactions Allergy Substance Reaction Severity Start Date Concern Status Co de Code System Active No Known Drug Allergies Active 730117023 SNOMED-CT Plan of Treatment Description Due Date Details Instructions DEPRESSION SCREENING DUE 06/20/2021 Personal Care Team Section
--- OUTSIDE RECORDS SUMMARY | 2025-05-22 10:12 | XMS_ITS ---
Author Organization Unknown Address [address] [place] [address] [phone] Phone Care Team Providers Care Inspector Coated Fabrics Name Role Phone Blanco Gallego Attending Unavailable [...] ANTIGEN - Collec t Date/Time: 03/12/2023 14:51 [facility] ID: [id number] [address] [place], [place], [phone] LOINC: 6556-5 Test Value Unit Reference Range Code Code System Flag COVID RAPID ANTI NEGATIVE NORMAL: NEGATIVE LOT#: [id number] Exp Date: 12/07/2023 QC: ACCEPTABLE STREP A SCREEN - Collect Sha e/Time: 03/12/2023 14:50 [facility] ID: [id number] [address] [place], [place], [id number] LOINC: 6556-5 Test Value Unit Reference Range Code Code System Flag STREP SCREEN NEGATIVE NORMAL: NEGATIVE 6556-5 LOINC Lot#: [id number] Exp Date: 04/10/2024 QC STREP ACCEPTABLE Social History Type Status Start Date End Date Code Code Syst em Smoking History Never smoker (Never Smoked) 601844444 SNOMED CT Sex Female Sexual Orientation Straight or Heterosexual 45799626 SNOMED CT Gender Identity Female 91837622215199 [address] Vital Signs Vital Sign Value Unit [place] Value [place] Unit Date/Time Recent/Initial? Code Code System Body Mass Index 23.57 kg/m2 03/12/2023 14:40 Initial 46328 -5 LOINC Body Mass Index Percentile 71 % 03/12/2023 14:40 Initial 80367 -9 LOINC Systolic Blood Pressure 100 mm[Hg] 03/12/2023 14:40 Initial 8480- 6 LOINC Diastolic Blood Pressure 68 mm[Hg] 03/12/2023 14:40 Initial 8462- 4 LOINC Body Surface Area 1.84 m2 03/12/2023 14:40 Initial 3140- 1 LOINC Height 172.720 0 cm 68.00 in 03/12/2023 14:40 Initial 8302- 2 INC O2 Saturation 95 % 2022 14:40 Initial 93107 -5 LOINC Pulse 56.0 /min 03/12/2023 14:40 Initial 8867- 4 LOINC Respiration 16 /min 03/12/20 14:40 Initial 9279- 1 LOINC Temperature 37.5 Antonella 99.5 F 03/12/20 14:40 Initial 8310- 5 INC Weight 70.31 kg 155.00 lbs 03/12/2023 14:40 Initial 19737 -7 [facility] Medications Medication Start Date End Date Route Frequency Dose Code Code System Medication Instructions Home Meds Methocarbamol 750MG Oral Tablet 12/25/2022 03/12/2023 By Mouth As needed every 8 hr 470888 RxNorm 1-2 TABLET By Mouth As needed every 8 hr [place]-28 30 MCG-0.15 MG; NA Oral Tablet 12/25/2022 03/12/2023 By Mouth Daily 1 TABLET 045076 RxNorm 1 TABLET By Mouth Daily Macrobid 100MG Oral Capsule 02/20/2023 03/12/2023 By mouth Twice a day 1 TABLET 148544 RxNorm 1 TABLET By mouth Twice a day X 7 DAYS Pyridium 100MG Oral Tablet 02/20/2023 03/12/2023 By mouth As needed every 8 hr 1 TABLET 5113140 RxNorm 1 TABLET By mouth As needed every 8 hr for urinary pain ZyrTEC Allergy 10MG Oral Capsule, Liquid Filled 03/12/2023 Unknown By Mouth Daily 1 CAPSULE 7749411 RxNorm 1 CAPSULE By Mouth Daily Fluticasone 0.05MG/1Actuati on Nasal [place] 03/12/2023 Unknown Nasal Daily 1 Sprays 2689760 RxNorm 1 Spr ays Nasal Daily Azithromycin 500MG Oral Tablet 06/04/2024 Unknown By Mouth x1 NOW 2 TABLET 163245 RxNorm 2 TABLET By Mouth x1 NOW [...] Status Code Code System SEASONAL ALLERGY active 160297969 SNO MED-CT FAMILY PLANNING 06/20/2020 active 054578696 SNO MED-CT BITE OF INSECT active 994218195 SNOME D-CT ES OF VAGINA 08/07/2022 active 57747125 S NOMED-CT MENORRHAGIA active 851594258 SNOMED-C T PAINFUL NECK active 02990768 SNOMED- CT ADHD OF CHILDHOOD 07/22/2019 resolved 311168922 S NOMED-CT SEASONAL NASAL ALLERGY 07/22/2019 resolved 975655 001 SNOMED-CT HISTORY OF CHICKENPOX 07/22/2019 resolved 2505160 08 SNOMED-CT Allergies and Adverse Reactions Allergy Substance Reaction Severity Start Date Concern Status Co de Code System Active No Known Drug Allergies Active 024133730 SNOMED-CT Plan of Treatment Description Due Date Details Instructions DEPRESSION SCREENING DUE 06/20/2021 Encounters Encounter Diagnosis Start Date Code Code Sys tem Seasonal allergic rhinitis 03/12/2023 100101557 S NOMED-CT Personal Care Team Section Progress Notes [facility] 03/12/2023 15:06 Admission Date/Time: 03/12/2023 11:24 [...] is an 17 yo female presents to [facility] today for sore throat and cough. [...] and communicating with other health customer care consultant x Obtaining and/or reviewing separately obtained history Independent interpretation of results and communicating results to the patient/family/caregiver x Performing a medically appropriate examination/evaluation Care coordination (not reported separately) x Discharge instructions given to patient. Ordered & Completed Meds Table: No Current Medications Available Discharge Med List: Discharge Medications: No Discharge Medications Available [facility] 03/12/2023 15:20 Current Date/Time: 03/12/2023 15:03 Patient Name: NELA MANZANARES was seen at [facility] [phone] on Date of Service: 03/12/2023 . They may return to school on 03/13/2023 with No restrictions . .
--- OUTSIDE RECORDS SUMMARY | 2025-05-22 10:12 | XMS_ITS ---
Author Organization Unknown Address [address] [place] [address] [phone] Phone Care Team Providers Care District Extension Service Agent Name Role Phone VIRAL Brody Attending Unavailable [...] - Collect Date/Time: 06/03/2024 15:21 [facility] ID: [id number] [address] [place] [address], [id number] LOINC: Test Value Unit Reference Range Code [...] em Smoking History Never smoker (Never Smoked) 540590402 SNOMED CT Sex Female Sexual Orientation Straight or Heterosexual 24554143 SNOMED CT Gender Identity Female 71423020141403 [address] Vital Signs Vital Sign Value Unit [place] Value [place] Unit Date/Time Recent/Initial? Code Code System Body Mass Index 25.85 kg/m2 06/03/2024 14:31 Initial 10740 -5 [facility] Body Mass Index Percentile 82 % 06/03/2024 14:31 Initial 13062 -9 LOINC Systolic Blood Pressure 118 mm[Hg] [...] in 06/03/2024 14:31 Initial 8302- 2 [facility] O2 Saturation 100 % 2023 14:31 Initial 96690 -5 [facility] Pulse 93.0 /min 06/03/2024 14:31 Initial 8867- 4 [facility] Temperature 36.7 Antonella 98.0 F 06/03/20 14:31 Initial 8310- 5 [facility] Weight 77.11 kg 170.00 lbs 06/03/2024 14:31 Initial 49064 -7 [facility] Medications Medication Start Date End Date Route Frequency Dose Code Code System Medication Instructions Home Meds ZyrTEC Allergy 10MG Oral Capsule, Liquid Filled 03/12/2023 Unknown By Mouth Daily 1 CAPSULE 2895775 RxNorm 1 CAPSULE By Mouth Daily Fluticasone 0.05MG/1Actuatio n Nasal [place] 03/12/2023 Unknown Nasal Daily 1 Sprays 9969887 RxNorm 1 Spra ys Nasal Daily Azithromycin 500MG Oral Tablet 06/04/2024 Unknown By Mouth x1 NOW 2 TABLET 499279 RxNorm 2 TABLET By Mouth x1 NOW [...] sex practices. 3. -Keep follow up with [facility] for next week. -Given handouts for [...] up. This examination was transcribed using the [email or web address] voice recognition system without a human vb developer. To expedite patient care, this report has not been adjusted for typographical, or medical, or syntax by a trained medical technologist hematology. Hospital Discharge Instructions Should you have any questions prior to discharge, please contact a member of your healthcare team. If you have left the hospital and have any questions, please contact your primary care physician. Reason For Referral No Data Found Problems Problem Start Date Resolved Date Status Code Code System SEASONAL ALLERGY active 281707717 SNO MED-CT FAMILY PLANNING 06/20/2020 active 672632541 SNO MED-CT BITE OF INSECT active 936140635 SNOME D-CT ES OF VAGINA 08/07/2022 active 78316105 S NOMED-CT MENORRHAGIA active 449824497 SNOMED-C T PAINFUL NECK active 21700873 SNOMED- CT ADHD OF CHILDHOOD 07/22/2019 resolved 904265251 S NOMED-CT SEASONAL NASAL ALLERGY 07/22/2019 resolved 180329 001 SNOMED-CT HISTORY OF CHICKENPOX 07/22/2019 resolved 1927813 08 SNOMED-CT Allergies and Adverse Reactions Allergy Substance Reaction Severity Start Date Concern Status Co de Code System Active No Known Drug Allergies Active 120581656 SNOMED-CT Plan of Treatment Description Due Date Details Instructions DEPRESSION SCREENING DUE 06/20/2021 Future Order Description Future Order Date Futu re Order Loinc: TRICHOMONAS VAGINALIS FEMALE RNA QUAL LOINC: 55791-8 GC PCR [facility] 06/03/2024 LOINC: 43492-0 CHLAMYDIA PCR [facility] 06/03/2024 LOINC: 53177- 5 BACTERIAL VAGINOSIS RAPID TEST 06/03/2024 LOINC: 6410-5 CULTURE YEAST, WITH IDENTIFICATION 06/03/2024 LOINC: 48133-5 Encounters Encounter Diagnosis Start Date Code Code Sys tem Acute vaginitis 06/03/2024 31099939 SNOMED-CT Personal Care Team Section Progress Notes [facility] 06/03/2024 15:50 Date of Service: 06/03/2024 [facility] Visit Tishamichelle SosaSMITA heard-Sylvia Chief Complaint: LUMP ON STOMACH History of Present Illness: Age: 18 years The patient is a 18-year-old female presenting to [facility] today for evaluation of right upper side abdominal lump and vaginal discharge with odor and clear/white discharge. She reports she is currently 4-6 weeks with LMP at the beginning of April. She has an appointment scheduled with [facility] for an OBGYN next week. She [...] sex practices. 3. -Keep follow up with [facility] for next week. -Given handouts for [...] up. This examination was transcribed using the [email or web address] voice recognition system without a human vb developer. To expedite patient care, this report has not been adjusted for typographical, or medical, or syntax by a trained medical technologist hematology. Meds Given This Visit: Meds ordered and administered this visit: No Current Medications Available Discharge Med List: Discharge Medications Medication Special Instructions Start Date Prescribing Fluticasone 0.05MG/1Actuation Nasal [place] 1 Sprays Nasal Daily 03/12/2023 Blanco Gallego ZyrTEC Allergy 10MG Oral Capsule, Liquid Filled 1 CAPSULE By Mouth Daily 03/12/2023 Blanco Gallego
--- OUTSIDE RECORDS SUMMARY | 2025-05-22 10:13 | XMS_ITS ---
Author Organization Unknown Address [address] [place] [address] [phone] Phone Care Team Providers Care Bushler Name Role Phone ATIYA Lezama MD Attending [...] em Smoking History Never smoker (Never Smoked) 889688964 SNOMED CT Sex Female Sexual Orientation Straight or Heterosexual 14399862 SNOMED CT Gender Identity Female 70380944326452 [address] Medications Medication Start Date End Date Route Frequency Dose Code Code System Medication Instructions Home Meds Radha 28 3MG-0.02MG Oral Tablet 09/12/2022 12/25/2022 By Mouth Once a day 1 TABLET RxNorm 1 TABLET By Mouth Once a day Medrol Dosepak 4MG Oral Tablet 12/25/2022 02/20/2023 By Mouth As Directed 1 PACK 446594 RxNorm 1 PACK By Mouth As Directed Methocarbamol 750MG Oral Tablet 12/25/2022 03/12/2023 By Mouth As needed every 8 hr 303682 RxNorm 1-2 TABLET By Mouth As needed every 8 hr [place]-28 30 MCG-0.15 MG; NA Oral Tablet 12/25/2022 03/12/2023 By Mouth Daily 1 TABLET 615419 RxNorm 1 TABLET By Mouth Daily Macrobid 100MG Oral Capsule 02/20/2023 03/12/2023 By mouth Twice a day 1 TABLET 757161 RxNorm 1 TABLET By mouth Twice a day X 7 DAYS Pyridium 100MG Oral Tablet 02/20/2023 03/12/2023 By mouth As needed every 8 hr 1 TABLET 2461592 RxNorm 1 TABLET By mouth As needed every 8 hr for urinary pain ZyrTEC Allergy 10MG Oral Capsule, Liquid Filled 03/12/2023 Unknown By Mouth Daily 1 CAPSULE 7994476 RxNorm 1 CAPSULE By Mouth Daily Fluticasone 0.05MG/1Actuati on Nasal [place] 03/12/2023 Unknown Nasal Daily 1 Sprays 2096196 RxNorm 1 Spr ays Nasal Daily Azithromycin 500MG Oral Tablet 06/04/2024 Unknown By Mouth x1 NOW 2 TABLET 043762 RxNorm 2 TABLET By Mouth x1 NOW [...] Status Code Code System SEASONAL ALLERGY active 807890697 SNO MED-CT FAMILY PLANNING 06/20/2020 active 991843726 SNO MED-CT BITE OF INSECT active 670427461 SNOME D-CT ES OF VAGINA 08/07/2022 active 09468403 S NOMED-CT MENORRHAGIA active 591834873 SNOMED-C T PAINFUL NECK active 40736673 SNOMED- CT ADHD OF CHILDHOOD 07/22/2019 resolved 023981760 S NOMED-CT SEASONAL NASAL ALLERGY 07/22/2019 resolved 410980 001 SNOMED-CT HISTORY OF CHICKENPOX 07/22/2019 resolved 3465813 08 SNOMED-CT Allergies and Adverse Reactions Allergy Substance Reaction Severity Start Date Concern Status Co de Code System Active No Known Drug Allergies Active 529113155 SNOMED-CT Plan of Treatment Description Due Date Details Instructions DEPRESSION SCREENING DUE 06/20/2021 Personal Care Team Section
--- OUTSIDE RECORDS SUMMARY | 2025-05-22 10:13 | XMS_ITS | Clinical Summary ---
Author Organization [facility] Address [address] [place] [id number] Care Team Providers Care Global Marketing Coordinator Name Role Phone No, Physician Primary Care Provider [phone] Allergies No known active allergies Encounters Date Type Department Care Team Description 04/02/2025 12:32 AM CDT - 04/02/2025 1:36 AM CDT Emergency [facility] Emergency Department [address] [place] [address] Braden Dan DO Exhaustion (Primary Dx); Anxiety; Lack of adequate sleep Discharge Disposition: Discharge to home or self care from Last 3 Months Social History Tobacco Use Types Packs/Day Years Used Date Smoking Tobacco: Never Assessed Personal Safety Answer Date Recorded Have you ever been in or are you currently in a harmful physical or emotional relationship or is someone making you feel afraid or unsafe? 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 Gender Identity Not on file Sexual Orientation Not on file Obstetrics History Last Filed Vital Signs Vital Sign Reading Time Taken Comments Blood Pressure 130/99 04/02/2025 1:00 AM CDT Pulse 69 04/02/2025 1:00 AM CDT Temperature 36.6 C (97.9 F) 04/01/2025 11:19 PM CDT Respiratory Rate 17 04/02/2025 1:00 AM CDT Oxygen Saturation 100% 04/02/2025 1:00 AM CDT Inhaled Oxygen Concentration - - Weight 71.8 kg (158 lb 4.6 oz) 04/01/2025 11:19 PM CDT Height - - Body Mass Index - - Plan of Treatment Health Maintenance Due Date Last Done Comments Depression Screening 2004 Hepatitis C Screening 2004 HPV Vaccines (1 - 3-dose series) 2019 Meningococcal B Vaccine (1 o f 2 - Standard) 2020 Regular Well Visit/Exam 18-64 2022 Covid-19 Vaccine (3 - 2023-2 5 season) 2024 03/16/2021, 02/21/2021 Influenza Vaccine (Season Ended) 2025 02/26/2018, 08/24/2010, 10/31/2006 DTaP/Tdap/Td Vaccine (6 - Td or Tdap) 02/27/2028 02/26/2018, 09/06/2009, 09/24/2005, Additional history exists Hepatitis B Screening Completed 01/27/2005 , 2004, 2004 Pneumococcal vaccine <65 Completed 005, 01/27/2005, 2004 Varicella Vaccines Completed 09/06/2009, 07/12/2005 Meningococcal Vaccine Completed 06/20/2020, 018 Procedures Procedure Name Priority Date/Time Associated Diagnosis Comments EGFR STAT 04/02/2025 12:51 AM CDT DIFFERENTIAL AUTO STAT 04/02/2025 12: 51 AM CDT COMPREHENSIVE METABOLIC PANEL STAT 04/02/2025 12:51 AM CDT CBC WITH AUTO DIFFERENTIAL STAT 04/02/2025 12:51 AM CDT from Last 3 Months Results * eGFR (04/02/2025 12:51 AM CDT) eGFR >90 >=60 mL/min/1. 73 m2 Comment: Interpretive Data Reference Interval Normal >/= 90 mL/min/1.73m2 Mildly decreased* 60 - 89 mL/min/1.73m2 Mildly to moderately decreased 45 - 59 mL/min/1.73m2 Moderately to severely decreased 30 - 44 mL/min/1.73m2 Severely decreased 15 - 29 mL/min/1.73m2 Kidney Failure < 15 mL/min/1.73m2 *Relative to young adult level Estimated glomerular filtration rate is determined by the 2020 CKD-EPI equation recommended by the National Kid[employer] (A Unifying Approach to GFR Estimation: Recommendations of the NKF-ASK Task Force on Reassessing the Inclusion of Race in Diagnosing Kidney Disease, JASN 2020). The CKD-EPI equation should not be used for patients with unstable renal function and has not been validated in children and those over 70. Current interpretive data was last reviewed 2021. Testing performed by: [address] [address] Blood 04/02/2025 12:5 1 AM CDT 04/02/2025 12:53 AM CDT us Braden Dan DO LAB BLOOD ORDERABLES Final Res ult [place] [id number] [facility] Department of Laboratories [place], [place] [id number] * Differential, auto (04/02/2025 12:51 AM CDT) Neutrophil abs 3.52 1.50 - 6.50 K/cumm Comment:Testing performed by : [address] [address] Imm gran abs 0.04 0.00 - 0.10 K/cumm NOEMÍ Comment:Testing performed by : [address] [address] Lymphocyte abs 2.24 0.80 - 3.30 K/cumm NOEMÍ Comment:Testing performed by : [address] [address] Monocyte abs 0.44 0.20 - 0.80 K/cumm NOEMÍ Comment:Testing performed by : [address] [address] Eosinophil abs 0.08 0.00 - 0.50 K/cumm NOEMÍ Comment:Testing performed by : [address] [address] Basophil abs 0.04 0.00 - 0.10 K/cumm NOEMÍ Comment:Testing performed by : [address] [address] Neutrophil pct 55.4 % [facility] Comment: Interpretive Data Percent cell count reference ranges are not reported, since discordance with absolute values may lead to misinterpretation of CBC data. Current Interpretive Data was last revised on 2018. Testing performed by: [address] [address] Imm gran pct 0.6 % [facility] Comment: Interpretive Data Percent cell count reference ranges are not reported, since discordance with absolute values may lead to misinterpretation of CBC data. Current Interpretive Data was last revised on 2018. Testing performed by: [address] [address] Lymphocyte pct 35.2 % [facility] Comment: Interpretive Data Percent cell count reference ranges are not reported, since discordance with absolute values may lead to misinterpretation of CBC data. Current Interpretive Data was last revised on 2018. Testing performed by: [address] [address] Monocyte pct 6.9 % [facility] Comment: Interpretive Data Percent cell count reference ranges are not reported, since discordance with absolute values may lead to misinterpretation of CBC data. Current Interpretive Data was last revised on 2018. Testing performed by: [address] [address] Eosinophil pct 1.3 % [facility] Comment: Interpretive Data Percent cell count reference ranges are not reported, since discordance with absolute values may lead to misinterpretation of CBC data. Current Interpretive Data was last revised on 2018. Testing performed by: [address] [address] Basophil pct 0.6 % [facility] Comment: Interpretive Data Percent cell count reference ranges are not reported, since discordance with absolute values may lead to misinterpretation of CBC data. Current Interpretive Data was last revised on 2018. Testing performed by: [address] [address] Blood 04/02/2025 12:5 1 AM CDT 04/02/2025 12:53 AM CDT us Braden Dan DO LAB BLOOD ORDERABLES Final Res ult [place] 5696 [facility] Department [place] [address] * CBC with auto differential (04/02/2025 12:51 AM CDT) WBC 6.36 3.80 - 9.90 K/cumm Comment:Testing performed by : [address] [address] Hgb 14.5 11.9 - 15.5 g/dL NOEMÍ Comment:Testing performed by : [address] [address] Hct 41.2 35.6 - 45.5 % NOEMÍ Comment:Testing performed by : [address] [address] Plt 290 150 - 400 K/cumm NOEMÍ Comment:Testing performed by : [address] [address] MPV 10.0 9.1 - 12.3 fL NOEMÍ Comment:Testing performed by : [address] [address] RBC 4.80 3.90 - 5.20 M/cumm NOEMÍ Comment:Testing performed by : [address] [address] MCV 85.8 81.3 - 96.4 fL NOEMÍ Comment:Testing performed by : [address] [address] MCH 30.2 27.1 - 33.3 pg NOEMÍ Comment:Testing performed by : [address], [address] MCHC 35.2 32.3 - 35.7 g/dL NOEMÍ Comment:Testing performed by : [address], [address] RDW CV 12.7 11.1 - 14.9 % NOEMÍ Comment:Testing performed by : [address] [place]., [address] RDW SD 39.1 35.7 - 48.1 fL NOEMÍ RIZVI Comment:Testing performed by : [address] [address] NRBC abs 0.00 0.00 - 0.01 K/cumm NOEMÍ RIZVI Comment:Testing performed by : [address] [address] Blood 04/02/2025 12:5 1 AM CDT 04/02/2025 12:53 AM CDT us Braden Dan DO LAB BLOOD ORDERABLES Final Res ult NOEM[place] RIZVI [facility] Department [place] [address] * (ABNORMAL) Comprehensive metabolic panel (04/02/2025 12:51 AM CDT) Sodium 139 135 - 145 mmol/L Comment:Testing performed by : [address] [address] Potassium, pl 4.1 3.3 - 4.9 mmol/L NOEMÍ RIZVI Comment:Testing performed by : [address] [address] Chloride 104 97 - 110 mmol/L NOEMÍ Comment:Testing performed by : [address] [address] CO2 22 22 - 32 mmol/L NOEMÍ Comment:Testing performed by : [address] [address] Anion gap 13 2 - 15 mmol/L NOEMÍ Comment:Testing performed by : [address] [address] BUN 9 6 - 25 mg/dL NOEMÍ RIZVI Comment:Testing performed by : [address] [address] Creatinine 0.70 0.60 - 1.10 mg/dL NOEMÍ RIZVI Comment:Testing performed by : [address] [address] Glucose 92 70 - 199 mg/dL NOEMÍ Comment: Interpretive Data Fasting glucose >/= 126 mg/dl is diagnostic for diabetes. Fasting is defined as no caloric intake for at least 8 hours. Fasting glucose between 100 mg/dl to 125 mg/dl is diagnostic of prediabetes. In a patient with classic symptoms of hyperglycemia or hyperglycemic crisis, a random glucose >/= 200 mg/dl is diagnostic for diabetes. In the absence of unequivocal hyperglycemia, results should be confirmed by repeat testing. The classification and Diagnosis of Diabetes Diabetes Care 202; 46: S19-S40. Current interpretive data was last revised 2022. Testing performed by: [address] [address] Calcium 10.1 8.5 - 10.3 mg/dL NOEMÍ Comment:Testing performed by : [address] [address] Bilirubin, total 0.3 0.1 - 1.2 mg/dL NOEMÍ Comment:Testing performed by : [address] [address] Protein, pl 7.9 6.5 - 8.5 g/dL NOEMÍ Comment:Testing performed by : [address] [address] Albumin 4.6 3.5 - 5.0 g/dL [facility] Comment:Testing performed by : [address] [address] Alk phos 98 40 - 130 Units/L [facility] Comment:Testing performed by : [address] [address] ALT 52(H) 7 - 45 Units/L [facility] Comment:Testing performed by : [address] [address] AST 33 10 - 45 Units/L [facility] Comment:Testing performed by : [address] [address] Blood 04/02/2025 12:5 1 AM CDT 04/02/2025 12:53 AM CDT us Braden Slowik DO LAB BLOOD ORDERABLES Final Res ult NOEM[place] 4501 [facility] Department [place] [address] from Last 3 Months Insurance [facility] Care Teams Global Marketing Coordinator Relationship Specialty Start Date End Date No, Physician PCP - General 04/01/25
--- OUTSIDE RECORDS SUMMARY | 2025-05-22 10:13 | XMS_ITS ---
Author Organization Unknown Address [address], [place] [id number] Phone Care Team Providers Care Assembler Handbags Name Role Phone Shahanacristian Joseph Attending Unavailable Results BACTERIAL VAGINOSIS RAPID TE ST - Collect Date/Time: 07/31/2022 17:20 [facility] ID: [id number] [address] [place], [place], [phone] LOINC: 6410-5 Test Value Unit Reference Range Code Code System Flag BACTERIAL VAGINOSIS NEGATIVE NORMAL: NEGATIVE CULTURE YEAST, WITH IDENTIFI CATION - Collect Date/Time: 07/31/2022 17:19 [facility] ID: [id number] [address] [place], [place], [phone] LOINC: 5048-4 Test Value Unit Reference Range Code Code System Flag SOURCE: VAGINAL STATUS: FINAL ISOLATE 1: Margoth albicans A CULTURE: Culture in progress TRICHOMONAS VAGINALIS FEMALE RNA QUAL - Collect Date/Time: 07/31/2022 17:19 [facility] ID: [id number] [address] [place], [place], [phone] LOINC: 02151-6 Test Value Unit Reference Range Code Code System Flag TRICHOMONAS VAGINALISRNA, QL TMA NOT DETECTED NOT DETECTED CHLAMYDIA/GC URINE RNA, TMA APTIMA - Collect Date/Time: 07/31/2022 17:19 [facility] ID: [id number] [address] [place], [place], [phone] LOINC: 5048-4 Test Value Unit Reference Range Code Code System Flag CHLAMYDIA TRACHOMATISRNA, TMA, UROGENITAL NOT DETECTED NOT DETECTED NEISSERIA GONORRHOEAERNA, TMA, UROGENITAL NOT DETECTED NOT DETECTED Social History Type Status Start Date End Date Code Code Syst em Smoking History Never smoker (Never Smoked) 995392790 SNOMED CT Sex Female Sexual Orientation Straight or Heterosexual 25993034 SNOMED CT Gender Identity Female [id number] Medications Medication Start Date End Date Route Frequency Dose Code Code System Medication Instructions Home Meds Anel-28 30MCG-0.15MG-NA Oral Tablet 06/07/2022 09/12/2022 By Mouth Daily 1 TABLET 359735 RxNorm 1 TABLET By Mouth Daily Diflucan [...] 02/20/2023 By Mouth As Directed 1 PACK 648775 RxNorm 1 PACK By Mouth As Directed Methocarbamol 750MG Oral Tablet 12/25/2022 03/12/2023 By Mouth As needed every 8 hr 450759 RxNorm 1-2 TABLET By Mouth As needed every 8 hr Empire-28 30 MCG-0.15 MG; NA Oral Tablet 12/25/2022 03/12/2023 By Mouth Daily 1 TABLET 015264 RxNorm 1 TABLET By Mouth Daily Macrobid 100MG Oral Capsule 02/20/2023 03/12/2023 By mouth Twice a day 1 TABLET 448280 RxNorm 1 TABLET By mouth Twice a day X 7 DAYS Pyridium 100MG Oral Tablet 02/20/2023 03/12/2023 By mouth As needed every 8 hr 1 TABLET 0253369 RxNorm 1 TABLET By mouth As needed every 8 hr for urinary pain ZyrTEC Allergy 10MG Oral Capsule, Liquid Filled 03/12/2023 Unknown By Mouth Daily 1 CAPSULE 2710483 RxNorm 1 CAPSULE By Mouth Daily Fluticasone 0.05MG/1Actuatio n Nasal [place] 03/12/2023 Unknown Nasal Daily 1 Sprays 7683688 RxNorm 1 Spra ys Nasal Daily Azithromycin 500MG Oral Tablet 06/04/2024 Unknown By Mouth x1 NOW 2 TABLET 945387 RxNorm 2 TABLET By Mouth x1 NOW [...] Status Code Code System SEASONAL ALLERGY active 398195291 SNO MED-CT FAMILY PLANNING 06/20/2020 active 075083973 SNO MED-CT BITE OF INSECT active 112274688 SNOME D-CT MARGOTH OF VAGINA 08/07/2022 active 16192700 S NOMED-CT MENORRHAGIA active 913613542 SNOMED-C T PAINFUL NECK active 16044023 SNOMED- CT ADHD OF CHILDHOOD 07/22/2019 resolved 764918617 S NOMED-CT SEASONAL NASAL ALLERGY 07/22/2019 resolved 894447 001 SNOMED-CT HISTORY OF CHICKENPOX 07/22/2019 resolved 2915919 08 SNOMED-CT Allergies and Adverse Reactions Allergy Substance Reaction Severity Start Date Concern Status Co de Code System Active No Known Drug Allergies Active 635993808 SNOMED-CT Plan of Treatment Description Due Date Details Instructions DEPRESSION SCREENING DUE 06/20/2021 Encounters Encounter Diagnosis Start Date Code Code Sys tem Noninflammatory disorder of the vagina 07/31/2022 22 557391 SNOMED-CT Personal Care Team Section
--- OUTSIDE RECORDS SUMMARY | 2025-05-22 10:13 | XMS_ITS | Referral Summary ---
Author Organization [facility] Address [address] [place] [phone] Care Team Providers Care Quality Assurance Monitor Body Name Role Phone No, Physician Primary Care Provider [phone] Encounters Date Type Department Care Team Description 04/02/2025 12:32 AM CDT - 04/02/2025 1:36 AM CDT Emergency [facility] Emergency Department [address] [place] [address] Braden Dan DO Exhaustion (Primary Dx); Anxiety; Lack of adequate sleep Discharge Disposition: Discharge to home or self care from Last 3 Months Allergies No known active allergies Social History Tobacco Use Types Packs/Day Years [...] on file 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 Testing performed by: [facility], [address] [place] [address]., [address] Blood 04/02/2025 12:5 1 AM CDT 04/02/2025 12:53 AM CDT us Braden Dan DO LAB BLOOD ORDERABLES Final Res ult NOEM[facility] 85[address] [facility] [place] [address] * Differential, auto (04/02/2025 12:51 AM CDT) Neutrophil abs 3.52 1.50 - 6.50 K/cumm Comment:Testing performed by : [address] [address] Imm gran abs 0.04 0.00 - 0.10 K/cumm [facility] Comment:Testing performed by : [address], [place]., [address] Lymphocyte abs 2.24 0.80 - 3.30 K/cumm [facility] Comment:Testing performed by : [address] [address] Monocyte abs 0.44 0.20 - 0.80 K/cumm [facility] Comment:Testing performed by : [address] [address] Eosinophil abs 0.08 0.00 - 0.50 K/cumm [facility] Comment:Testing performed by : [address] [address] Basophil abs 0.04 0.00 - 0.10 K/cumm [facility] Comment:Testing performed by : [address] [address] Neutrophil pct 55.4 % [facility] Comment: Interpretive Data Percent cell count reference ranges are not reported, since discordance with absolute values may lead to misinterpretation of CBC data. Current Interpretive Data was last revised on 2018. Testing performed by: [address] [address] Imm gran pct 0.6 % [facility] Comment: Interpretive Data Percent cell count reference ranges are not reported, since discordance with absolute values may lead to misinterpretation of CBC data. Current Interpretive Data was last revised on 2018. Testing performed by: [address] [address] Lymphocyte pct 35.2 % [facility] Comment: Interpretive Data Percent cell count reference ranges are not reported, since discordance with absolute values may lead to misinterpretation of CBC data. Current Interpretive Data was last revised on 2018. Testing performed by: [address] [address] Monocyte pct 6.9 % [facility] Comment: Interpretive Data Percent cell count reference ranges are not reported, since discordance with absolute values may lead to misinterpretation of CBC data. Current Interpretive Data was last revised on 2018. Testing performed by: [address] [address] Eosinophil pct 1.3 % NOEMÍ Comment: Interpretive Data Percent cell count reference ranges are not reported, since discordance with absolute values may lead to misinterpretation of CBC data. Current Interpretive Data was last revised on 2018. Testing performed by: [address] [address] Basophil pct 0.6 % NOEMÍ Comment: Interpretive Data Percent cell count reference ranges are not reported, since discordance with absolute values may lead to misinterpretation of CBC data. Current Interpretive Data was last revised on 2018. Testing performed by: [address] [address] Blood 04/02/2025 12:5 1 AM CDT 04/02/2025 12:53 AM CDT us Braden Dan DO LAB BLOOD ORDERABLES Final Res ult NOEMÍ 1838 [facility] [place] [address] * CBC with auto differential (04/02/2025 12:51 AM CDT) WBC 6.36 3.80 - 9.90 K/cumm Comment:Testing performed by : [address] [address] Hgb 14.5 11.9 - 15.5 g/dL NOEM[facility] RIZVI Comment:Testing performed by : [address] [address] Hct 41.2 35.6 - 45.5 % [facility] Comment:Testing performed by : [address] [address] Plt 290 150 - 400 K/cumm NOEM[facility] RIZVI Comment:Testing performed by : [address] [address] MPV 10.0 9.1 - 12.3 fL NO[facility]IZ[facility] Comment:Testing performed by : [address] [address] RBC 4.80 3.90 - 5.20 M/cumm [facility] Comment:Testing performed by : [address] [address] MCV 85.8 81.3 - 96.4 fL [facility]IZ[facility] Comment:Testing performed by : [address] [address] MCH 30.2 27.1 - 33.3 pg NOEMÍ RIZVI Comment:Testing performed by : [address] [address] MCHC 35.2 32.3 - 35.7 g/dL NO[facility]IZVI Comment:Testing performed by : [address], [address] RDW CV 12.7 11.1 - 14.9 % NOEMÍ Comment:Testing performed by : [address], [address] RDW SD 39.1 35.7 - 48.1 fL NOEMÍ Comment:Testing performed by : [address] [address] NRBC abs 0.00 0.00 - 0.01 K/cumm NOEMÍ RIZVI Comment:Testing performed by : [address] [address] Blood 04/02/2025 12:5 1 AM CDT 04/02/2025 12:53 AM CDT us Braden Dan DO LAB BLOOD ORDERABLES Final Res ult NOEM[facility] RIZ[place] [address] [facility] [place] [address] * (ABNORMAL) Comprehensive metabolic panel (04/02/2025 12:51 AM CDT) [facility] Sodium 139 135 - 145 mmol/L Comment:Testing performed by : [address] [address] Potassium, pl 4.1 3.3 - 4.9 mmol/L [facility] Comment:Testing performed by : [address] [address] Chloride 104 97 - 110 mmol/L [facility] Comment:Testing performed by : [address], [place]., [address] CO2 22 22 - 32 mmol/L [facility] Comment:Testing performed by : [address], [place]., [address] Anion gap 13 2 - 15 mmol/L [facility] Comment:Testing performed by : [address], [place]., [address] BUN 9 6 - 25 mg/dL [facility] Comment:Testing performed by : [address], [place]., [address] Creatinine 0.70 0.60 - 1.10 mg/dL [facility] Comment:Testing performed by : [address] [address] Glucose 92 70 - 199 mg/dL [facility] Comment: Interpretive Data Fasting glucose >/= 126 [...] was last revised 2022. Testing performed by: [address] [address] Calcium 10.1 8.5 - 10.3 mg/dL [facility] Comment:Testing performed by : [address] [address] Bilirubin, total 0.3 0.1 - 1.2 mg/dL [facility] Comment:Testing performed by : [address] [address] Protein, pl 7.9 6.5 - 8.5 g/dL [facility] Comment:Testing performed by : [address] [address] Albumin 4.6 3.5 - 5.0 g/dL [facility]IZ[facility] Comment:Testing performed by : [address] [address] Alk phos 98 40 - 130 Units/L NO[facility] Comment:Testing performed by : [address] [address] ALT 52(H) 7 - 45 Units/L [facility] Comment:Testing performed by : [address] [address] AST 33 10 - 45 Units/L NO[facility] Comment:Testing performed by : [address] [address] Blood 04/02/2025 12:5 1 AM CDT 04/02/2025 12:53 AM CDT us Braden Dan DO LAB BLOOD ORDERABLES Final Res ult NOEMÍ 45[address] [facility] [place] [address] from Last 3 Months Insurance [facility] Care Teams Quality Assurance Monitor Body Relationship Specialty Start Date End Date No, Physician PCP - General 04/01/25
--- OUTSIDE RECORDS SUMMARY | 2025-05-22 10:13 | XMS_ITS ---
Author Organization Unknown Address [address] [place] [phone] Phone Care Team Providers Care Interpersonal Communications Professor Name Role Phone Blanco Gallego Attending Unavailable [...] em Smoking History Never smoker (Never Smoked) 444700835 SNOMED CT Sex Female Sexual Orientation Straight or Heterosexual 07992796 SNOMED CT Gender Identity Female [id number] Medications Medication Start Date End Date Route Frequency Dose Code Code System Medication Instructions Home Meds ZyrTEC Allergy 10MG Oral Capsule, Liquid Filled 03/12/2023 Unknown By Mouth Daily 1 CAPSULE 9949593 RxNorm 1 CAPSULE By Mouth Daily Fluticasone 0.05MG/1Actuatio n Nasal [place] 03/12/2023 Unknown Nasal Daily 1 Sprays 9540246 RxNorm 1 Spra ys Nasal Daily Azithromycin 500MG Oral Tablet 06/04/2024 Unknown By Mouth x1 NOW 2 TABLET 634001 RxNorm 2 TABLET By Mouth x1 NOW [...] Status Code Code System SEASONAL ALLERGY active 600427351 SNO MED-CT FAMILY PLANNING 06/20/2020 active 846207208 SNO MED-CT BITE OF INSECT active 227779945 SNOME D-CT ES OF VAGINA 08/07/2022 active 47273435 S NOMED-CT MENORRHAGIA active 987039411 SNOMED-C T PAINFUL NECK active 05602887 SNOMED- CT ADHD OF CHILDHOOD 07/22/2019 resolved 656859135 S NOMED-CT SEASONAL NASAL ALLERGY 07/22/2019 resolved 327661 001 SNOMED-CT HISTORY OF CHICKENPOX 07/22/2019 resolved 7585331 08 SNOMED-CT Allergies and Adverse Reactions Allergy Substance Reaction Severity Start Date Concern Status Co de Code System Active No Known Drug Allergies Active 859021196 SNOMED-CT Plan of Treatment Description Due Date Details Instructions DEPRESSION SCREENING DUE 06/20/2021 Personal Care Team Section
--- OUTSIDE RECORDS SUMMARY | 2025-05-22 10:13 | XMS_ITS ---
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 Role Phone TABATHA RODGERS Attending Unavailable [...] O - Collect Date/Time: 07/31/2022 17:14 [facility] ID: [id number] [address] [place] [address], [phone] LOINC: Test Value Unit Reference Range Code [...] - Colle ct Date/Time: 07/31/2022 17:12 [facility] ID: [id number] [address] [place] [address], [phone] LOINC: Test Value Unit Reference Range Code Code System Flag TEST PERFORMED URINE PREG (URINE) NEGATIVE LOT#: [id number] EXP DATE: 2023-10-10 QC: ACCEPTABLE Social History Type Status Start Date End Date Code Code Syst em Smoking History Never smoker (Never Smoked) 433565703 SNOMED CT Sex Female Sexual Orientation Straight or Heterosexual 99486881 SNOMED CT Gender Identity Female [id number] [address] Vital Signs Vital Sign Value Unit Trumbull Value Trumbull Unit Date/Time Recent/Initial? Code Code System Body Mass Index 23.34 kg/m2 07/31/2022 16:59 Initial 66753 -5 LOINC Body Mass Index Percentile 71 % 07/31/2022 16:59 Initial 48760 -9 LOINC Systolic Blood Pressure 120 mm[Hg] 07/31/2022 16:59 Initial 8480- 6 LOINC Diastolic Blood Pressure 80 mm[Hg] 07/31/2022 16:59 Initial 8462- 4 [facility] Body Surface Area 1.79 m2 07/31/2022 16:59 Initial 3140- 1 [facility] Height 170.180 0 cm 67.00 in 07/31/2022 16:59 Initial 8302- 2 [facility] O2 Saturation 98 % 2021 16:59 Initial 09663 -5 [facility] Pulse 92.0 /min 07/31/2022 16:59 Initial 8867- 4 [facility] Temperature 36.8 Antonella 98.2 F 07/31/20 16:59 Initial 8310- 5 [facility] Weight 67.59 kg 149.00 lbs 07/31/2022 16:59 Initial 82924 -7 [facility] Medications Medication Start Date End Date Route Frequency Dose Code Code System Medication Instructions Home Meds predniSONE 50MG Oral Tablet 06/07/2022 07/31/2022 By Mouth Daily 1 TABLET 855754 RxNorm 1 TABLET By Mouth Daily Anel-28 30MCG-0.15MG-NA Oral Tablet 06/07/2022 09/12/2022 By Mouth Daily 1 TABLET 820090 RxNorm 1 TABLET By Mouth Daily Diflucan [...] 02/20/2023 By Mouth As Directed 1 PACK 798715 RxNorm 1 PACK By Mouth As Directed Methocarbamol 750MG Oral Tablet 12/25/2022 03/12/2023 By Mouth As needed every 8 hr 810821 RxNorm 1-2 TABLET By Mouth As needed every 8 hr Anel-28 30 MCG-0.15 MG; NA Oral Tablet 12/25/2022 03/12/2023 By Mouth Daily 1 TABLET 563365 RxNorm 1 TABLET By Mouth Daily Macrobid 100MG Oral Capsule 02/20/2023 03/12/2023 By mouth Twice a day 1 TABLET 815241 RxNorm 1 TABLET By mouth Twice a day X 7 DAYS Pyridium 100MG Oral Tablet 02/20/2023 03/12/2023 By mouth As needed every 8 hr 1 TABLET 6061171 RxNorm 1 TABLET By mouth As needed every 8 hr for urinary pain ZyrTEC Allergy 10MG Oral Capsule, Liquid Filled 03/12/2023 Unknown By Mouth Daily 1 CAPSULE 5181191 RxNorm 1 CAPSULE By Mouth Daily Fluticasone 0.05MG/1Actuati on Nasal [place] 03/12/2023 Unknown Nasal Daily 1 Sprays 4052876 RxNorm 1 Spr ays Nasal Daily Azithromycin 500MG Oral Tablet 06/04/2024 Unknown By Mouth x1 NOW 2 TABLET 698874 RxNorm 2 TABLET By Mouth x1 NOW [...] Status Code Code System SEASONAL ALLERGY active 899647870 SNO MED-CT FAMILY PLANNING 06/20/2020 active 021760068 SNO MED-CT BITE OF INSECT active 119332067 SNOME D-CT ES OF VAGINA 08/07/2022 active 92761125 S NOMED-CT MENORRHAGIA active 939880765 SNOMED-C T PAINFUL NECK active 67463836 SNOMED- CT ADHD OF CHILDHOOD 07/22/2019 resolved 635861032 S NOMED-CT SEASONAL NASAL ALLERGY 07/22/2019 resolved 683961 001 SNOMED-CT HISTORY OF CHICKENPOX 07/22/2019 resolved 0819950 08 SNOMED-CT Allergies and Adverse Reactions Allergy Substance Reaction Severity Start Date Concern Status Co de Code System Active No Known Drug Allergies Active 965412723 SNOMED-CT Plan of Treatment Description Due Date Details Instructions DEPRESSION SCREENING DUE 06/20/2021 Future Order Description Future Order Date Futu re Order Loinc: BACTERIAL VAGINOSIS RAPID TEST 07/31/2022 LOINC: 6410-5 CULTURE YEAST, WITH IDENTIFICATION 07/31/2022 LOINC: 77597-6 TRICHOMONAS VAGINALIS FEMALE RNA QUAL LOINC: 35789-1 CHLAMYDIA/GC URINE RNA, TMA APTIMA 07/31/2022 LOINC: 5048-4 CULTURE URINE 07/31/2022 LOINC: 630-4 Encounters Encounter Diagnosis Start Date Code Code Sys tem Acute vaginitis 07/31/2022 81123659 SNOMED-CT Personal Care Team Section Progress Notes [facility] 07/31/2022 18:10 Admission Date/Time: 07/31/2022 16:21 [...] NEGATIVE 07/31/2022 17:10 07/31/2022 17:12 final LOT#: [id number] 07/31/2022 17:10 07/31/2022 17:12 final EXP DATE: [...]
--- OUTSIDE RECORDS SUMMARY | 2025-05-22 10:13 | XMS_ITS | Data Portability ---
Author Organization [facility] [place] Address [address] [place] [address] [address] Assessment No assessment recorded. Plan of Treatment Reminders Order Date Submit Date Provider Last Modified By Organization Details Last Modified Time Details Appointments None recorded. Lab None recorded. Referral None recorded. Procedures None recorded. Surgeries None recorded. Imaging non-stress test 2024 025 [email or web address] [address], [address], [place], [address], 02:43:02 US, obstetric, biophysical profile + non-stress test 2024 025 [email or web address] [place] [facility] [address], [place], [address], 18:08:11 Medication Orders Slynd 4 mg (28) tablet 2024 025 [id number], [address], [place], [place], [id number], 12:18:53 Patient TargetsNo targets recorded. Patient InstructionsNo [...] t Abnor mal: No Resul ting Lab: [facility] [address] [facility] [address] Tel: CULTU RE ----- ----- ----- --- No growt h in 1 day (dete ction level of 10,00 0 colon ies / ml.) Not Available [facility] (Lab) [address], [place], [address], 01/03/2025 23:55:30 01/12/2001/11/2025 CULTU RE: GROUP B [...] t Abnor mal: Yes Resul ting Lab: [facility] [address] [facility] [address] Tel: CULTU RE ----- ----- ----- --- [...] hugo for these drugs . Not Available [facility] (Lab) [address], [place], [address], 01/15/2025 16:18:09 12/30/19 25 12/30/2024 non-s tress test No observ ation record ed. [address], [place], [address], 01/01/2025 13:38:09 01/12/20 25 01/11/2025 non-s tress test No observ ation record ed. [address], [place], [address], 01/11/2025 11:07:08 01/12/20 25 01/11/2025 US, obste tric, follo w-up No observ ation record ed. [email or web address] [place] [address], [place], [address], 01/11/2025 17:20:12 01/12/20 25 01/11/2025 US, obste tric, bioph ysica l profi le + non-s tress test No observ ation record ed. [email or web address] [place] [address], [place], [address], 01/11/2025 17:20:21 01/12/20 25 01/11/2025 US, obste tric, follo w-up No observ ation record ed. [email or web address] [facility], [place], [address], 01/11/2025 22:14:29 01/19/20 25 01/18/2025 US, obste tric, bioph ysica l profi le + non-s tress test No observ ation record ed. [email or web address] [place] [address], [place], [address], 01/18/2025 18:13:15 01/19/20 25 01/18/2025 US, obste tric, bioph ysica l profi le + non-s tress test No observ ation record ed. [email or web address] [address], [place], [address], 01/18/2025 14:29:09 01/19/2001/18/2025 non-s tress test No observ ation record ed. [email or web address] [place] [address], [place], [address], 01/18/2025 14:40:38 01/24/2001/23/2025 non-s tress test No observ ation record ed. [address], [place], [address], 01/26/2025 15:08:47 01/24/2001/23/2025 non-s tress test No observ ation record ed. [address], [place], [address], 01/26/2025 15:08:13 Result Notes None recorded. Problems Name Problem SNOMED Code Status Onset Date Resolution Date Notes Provider Name and Address Organization Details Recorded Time Pregnanc y 89554570 Completed 202402/02/2025 Yue acosta, [facility] 19:59:31 Klinefel ter's syndrome , XXY 279656202 Completed High risk on NIPT; declined amniocen tesis; genetic testing at delivery TRINI RODRIGUEZ MD [address], [place], [address], [facility] 22:12:52 Large for gestatio n age fetus 234831839 Completed 94% at [facility] TRINI ROD[facility] [address], [place], [address], [facility] 22:40:35 Cytomega lovirus antibody screenin g Completed Positive per [facility]; echogeni c bowel on 3T US, resolved on later scan; twice weekly antenata l testing per [facility] TRINI RODRIGUEZ MD [address], [place], [address], [facility] 5 22:12:30 Gestatio nal diabetes mellitus 08415656 Completed TRINI RODRIGUEZ MD [address], [place], [address], [facility] 5 22:40:11 Gestatio nal diabetes mellitus 16046385 Active TRINI RODRIGUEZ MD [address], [place], [address], [facility] 5 22:40:11 Cytomega lovirus antibody screenin g Active Positive per [facility]; echogeni c bowel on 3T US, resolved on later scan; twice weekly antenata l testing per [facility] TRINI RODRIGUEZ MD [address], [place], [address], [facility] 5 22:40:[address]'s syndrome , XXY 249165362 Active High risk on NIPT; declined amniocen tesis; genetic testing at delivery TRINI RODRIGUEZ MD [address], [place], [address], [facility] 5 22:40:36 Large for gestatio n age fetus 131457521 Active 94% at 11/2024 [facility] TRINI RODRIGUEZ MD [address], [place], [address], [facility] 5 22:40:38 Problem Notes None recorded. Procedures Surgical History Date Name Laterality Status Provider Name and Address Organization Details Recorded Time 3 Appendectomy completed Zelda Wang [facility] 12/15/2024 13:12:49 Imaging Results None recorded. Procedure Notes None [...] and Address Organization Details Last Updated DateTime 01/18/2025 172.72 cm 28.3 kg/m2 89 % 01025.1 8 g 116/77 mm[Hg] DONI Larsen [facility] 14:30:57 Date Recorded Body height Body mass index (BMI) Body mass index (BMI) [Percentile] Per age and sex Body weight Systolic And Diastolic Provider Name and Address Organization Details Last Updated DateTime 03/01/2025 172.72 cm 24.3 kg/m2 73 % 19678.7 8 g 117/85 mm[Hg] Zelda Wang [facility] 12:57:23 Date Recorded Body mass index (BMI) [Percentile] Per age and sex Body mass index (BMI) Body weight Systolic And Diastolic Provider Name and Address Organization Details Last Updated DateTime 03/15/2025 72 % 24.2 kg/m2 70637.19 g 125/81 mm[Hg] Zelda Wang [facility] 03/15/2025 12:02:44 Date Recorded Body height Provider Name an d Address Organization Details Last Updated DateTime 03/15/2025 172.72 cm Josephine Castro JULIET Serna DAVID Mariangel [facility] 03/15/2025 11:55:34 Social History Question Answer Notes LastModified by [...] Or The Highest Degree You Have Received? ZB30697-3 Information not available 12/15/2024 Are There Any [...] available 12/15/2024 What is your occupation? na [email or web address] Information not available 12/30/2024 What is your exercise level? Occasional Information not available 12/15/2024 Mental Status Question Answer Note LastModified by Organization D etails LastModified Time Do you feel stressed (tense, restless, nervous, or anxious, or unable to sleep at night)? [id number] Information not available 12/15/2024 Family History Relationship [...] SNOMED-CT Code Diagnosis ICD10 Code Diagnosis Note [id number] Tod Briggs MD [place] [address],[place] [address] 12/15/2024 11:23:34 12/15/2024 12:36:18 Gestational diabetes mellitus 01993232 O24.410 Z3A.32 [id number] Tod Briggs MD [place] [address],[place] [address] 12/15/2024 11:26:10 12/15/2024 13:53:08 Routine care 723879710 Z34.03 [id number] TRINI RODRIGUEZ MD [place] [address],[place] [address] 12/30/2024 17:03:09 12/31/2024 10:05:53 Gestational diabetes mellitus 34050347 O24.410 Z3A.32 - A1- good glycemic control History of cytomegalovirus infection 6046164500 54726219 Z86.19 - positive antibodies - records requested from [facility]- twice weekly testing per [facility] Klinefelte r's syndrome, XXY 181574522 Q98.0 - high risk on NIPT- declined amniocente sis- plan for cord blood at deliveryfo r confirmato ry testing Large for gestation age fetus 912785427 O36.63X0 - 94% at 11/2024 [facility] scan Gestation period, 34 weeks 50978576 Z3A.34 - all outside scans and labs reviewed today- continue PNV RhD negative 736942411 Z - B neg blood type- patient reports she has not received Rhogam injection yet- labs sent today for Rhogam eval [id number] TRINI RODRIGUEZ MD [place] [address],[facility] [address] 01/11/2025 10:19:23 01/11/2025 11:08:16 Gestational diabetes mellitus 95827648 O24.410 Z3A.32 - A1- good glycemic control [id number] Tod Briggs MD [place] [address],[place] [address] 01/11/2025 10:20:01 01/11/2025 12:06:23 Gestational diabetes mellitus 35329895 O24.410 O36.63X0 Z3A.36 [id number] TRINI RODRIGUEZ MD [place] [address],[place] [address] 01/11/2025 10:20:16 01/11/2025 12:33:12 Gestational diabetes mellitus 70957238 O24.410 O36.63X0 Z3A.36 - A1- good glycemic control Klinefelte r's syndrome, XXY 284828126 Q98.0 - high risk on NIPT- declined amniocente sis- plan for cord blood at delivery for confirmato ry testing Large for gestation age fetus 892609897 O36.63X0 - 94% at 11/2024 [facility] scan- 88% at 01/11/25 (36 week) [place] History of cytomegalovirus infection 5891806943 31764667 Z86.19 - positive antibodies , drawn due to echogenic bowel which resolved- weekly testing per [facility] Gestation period, 36 weeks 39529431 Z3A.36 - continue PNV- GBS collected today [id number] Tod Briggs MD [place] [address],[place] [address] 01/18/2025 13:29:19 01/18/2025 14:02:39 Gestational diabetes mellitus 17660541 O24.410 Z3A.37 [id number] TRINI RODRIGUEZ MD [place] [address],[place] [address] 01/18/2025 13:29:38 01/18/2025 14:42:35 Gestational diabetes mellitus 48098156 O24.410 O36.63X0 Z3A.36 - A1- good glycemic control [id number] TRINI RODRIGUEZ MD [place] [address],[place] [address] 01/18/2025 13:29:48 01/18/2025 14:58:44 Klinefelter's syndrome, XXY 356152526 Q98.0 - high risk on NIPT- declined amniocente sis- plan for cord blood at delivery for confirmato ry testing Gestationa l diabetes mellitus 32227114 O24.410 - A1- good glycemic control Gestation period, 37 weeks 46888312 Z3A.37 - continue PNV [facility] reptococcus carrier 9500938477 103 Z22.330 - plan for antibiotic s during labor [id number] Tod Briggs MD [place] [address] [address] 03/01/2025 12:23:14 03/01/2025 13:13:27 care status 358855817 Z39.2 this patient is a 19-year-ol d female presents for care. Her baby is doing well. Her baby is breastfeed ing. She is doing well. Her bleeding has stopped. Her mood is good. She has not had intercours e. She would like Mirena IUD for contracept ion. That will be inserted in 2 weeks. She will follow up in as needed. [id number] RHODA Cornejo [place] [address],[place] [address] 03/15/2025 11:51:23 03/15/2025 12:19:58 Initial prescription of oral contraception 419093401 Z30.011 Discussed with patient risks, benefits, and [...] None Recorded Advance Directives Directive N: Payers Insurance Date Sequence Insurance Name Policy Number Policy Rivers Covered Member ID Rivers Member ID Guarantor Name 04/18/2025 1 [facility] (MEDICAID HMO) [id number] Lani Vic [id number] Lani E Vic 12/30/2024 1 MEDICAID-[place]: [facility] Lani Vic [id number] Lani August Vic 12/30/2024 2 [facility] (MEDICAID HMO) [id number] 0003 Lani Vic [id number] Lani E Vic Notes Date Note Type Note Provider Name [...] needed. Tod Briggs MD [address], [place], [address], [facility] 03/01/2025 13:12:28 03/15/2025 text/html 19yo [id number] for BC consultshe is both and formula feeding her 7 week oldshe was considering a Mirena IUD but wants to discuss other options RHODA Cornejo [address], [place], [address], [facility] 03/15/2025 12:19:24 OBGyn Episode Ob Episode Information Episode Created Date Number of Fetuses Patient Bloodtype Patient rh Status Prepregnancy Weight lbs Domestic Partner Domestic Partner Phone Father Name Hair Mixer Status 12/15/19 25 1 CLOSED Fetus Data First Name Last Name Admitted to NICU Weight (g) Sex Living Outcome Pediatric Complications Fetus ID Race Codes Race Delivery Type 3628.73 6 M true Full Term [id number] Vaginal Delivery Problems Problem Notes GBS + Problem Name Start Date End Date Resolution Snomed Code Not e Large for gestation age fetus 352461891 94% at 11/2024 [facility] US Gestational diabetes mellitus 69076866 Cytomegalovirus antibody screening 398360795 Positive per [facility]; echogenic bowel on 3T US, resolved on later scan; twice weekly testing per [facility] Klinefelter's syndrome, XXY 363151115 High risk on NI PT; declined amniocentesis; [...] Weight in lbs Pre/Post Dialysis Refused Weight 182.797884746536 BP Diastolic BP Location Tested BP Systolic [...] Type Weight in lbs Pre/Post Dialysis Refused 186.914391029841 BP Diastolic BP Location Tested BP Systolic BP Type 83 L arm 127 sitting Fetus Heart Rate Present A 145 Fetus Movement A Yes Comments Good movement. No cram ping or bleeding. Transfer from [place] at 32 weeks; has been complicated by GDMA1; good glycemic control per patient. Checking fasting and 2h PP sugars. Discussed risks of GDM including increased risk of c section, shoulder dystocia and hypoglycemia. Discussed importance of good glycemic control. Patient has also been followed by [facility] for suspected Kleinfelter's syndrome, high risk on NIPT however declined amniocentesis. Will send cord blood at delivery to confirm. On review of [facility]FM records, patient had +CMV antibodies. Will request further records regarding CMV. Per patient, [facility] recommends twice weekly testing. Most recent [...] Weight in lbs Pre/Post Dialysis Refused Weight 186.058824974525 BP Diastolic BP Location Tested BP Systolic BP Type 83 L arm 125 sitting Fetus Heart Rate Present A 140 Fetus Movement A Yes Comments Patient c/o back pains and p elvic pressure. Good movement. Glucose overall wnl, no consistently abnormal readings. Received rhogam. BPP 10/10, EFW 88% (previously 94%). GBS collected today. SVE 0.5cm. Discussed MIL for GDM between 56u9-76x3r. Patient to discuss with partner and will [...] Weight in lbs Pre/Post Dialysis Refused Weight 186.829833182271 BP Diastolic BP Location Tested BP Systolic [...]
--- OUTSIDE RECORDS SUMMARY | 2025-05-22 10:13 | XMS_ITS ---
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 Role Phone ATIYA Lezama MD Attending [...] em Smoking History Never smoker (Never Smoked) 563181108 SNOMED CT Sex Female Sexual Orientation Straight or Heterosexual 72224570 SNOMED CT Gender Identity Female 85206456914361 [address] Medications Medication Start Date End Date Route Frequency Dose Code Code System Medication Instructions Home Meds ZyrTEC Allergy 10MG Oral Capsule, Liquid Filled 03/12/2023 Unknown By Mouth Daily 1 CAPSULE 0650241 RxNorm 1 CAPSULE By Mouth Daily Fluticasone 0.05MG/1Actuatio n Nasal [place] 03/12/2023 Unknown Nasal Daily 1 Sprays 8709471 RxNorm 1 Spra ys Nasal Daily Azithromycin 500MG Oral Tablet 06/04/2024 Unknown By Mouth x1 NOW 2 TABLET 149014 RxNorm 2 TABLET By Mouth x1 NOW [...] Status Code Code System SEASONAL ALLERGY active 731252431 SNO MED-CT FAMILY PLANNING 06/20/2020 active 852847629 SNO MED-CT BITE OF INSECT active 187791437 SNOME D-CT ES OF VAGINA 08/07/2022 active 66750853 S NOMED-CT MENORRHAGIA active 703207012 SNOMED-C T PAINFUL NECK active 46335929 SNOMED- CT ADHD OF CHILDHOOD 07/22/2019 resolved 708458152 S NOMED-CT SEASONAL NASAL ALLERGY 07/22/2019 resolved 526900 001 SNOMED-CT HISTORY OF CHICKENPOX 07/22/2019 resolved 8560987 08 SNOMED-CT Allergies and Adverse Reactions Allergy Substance Reaction Severity Start Date Concern Status Co de Code System Active No Known Drug Allergies Active 395836057 SNOMED-CT Plan of Treatment Description Due Date Details Instructions DEPRESSION SCREENING DUE 06/20/2021 Personal Care Team Section
--- OUTSIDE RECORDS SUMMARY | 2025-05-22 10:13 | XMS_ITS ---
Author Organization Unknown Address [address] [place] [address] [phone] Phone Care Team Providers Care Manager Local Name Role Phone TABATHA RODGERS Attending Unavailable [...] em Smoking History Never smoker (Never Smoked) [id number] SNOMED CT Sex Female Sexual Orientation Straight or Heterosexual 58374588 SNOMED CT Gender Identity Female [id number] [address] Medications Medication Start Date End Date Route Frequency Dose Code Code System Medication Instructions Home Meds predniSONE 50MG Oral Tablet 06/07/2022 07/31/2022 By Mouth Daily 1 TABLET 743820 RxNorm 1 TABLET By Mouth Daily Anel-28 30MCG-0.15MG-NA Oral Tablet 06/07/2022 09/12/2022 By Mouth Daily 1 TABLET 441706 RxNorm 1 TABLET By Mouth Daily Diflucan 150MG Oral Tablet 08/07/2022 09/12/2022 By Mouth x1 NOW 1 TABLET 733596 RxNorm 1 TABLET By Mouth x1 NOW FOR MARCH REPEAT IN 72 HOURS Radha 28 3MG-0.02MG Oral Tablet 09/12/2022 12/25/2022 By Mouth Once a day 1 TABLET RxNorm 1 TABLET By Mouth Once a day Medrol Dosepak 4MG Oral Tablet 12/25/2022 02/20/2023 By Mouth As Directed 1 PACK 570900 RxNorm 1 PACK By Mouth As Directed Methocarbamol 750MG Oral Tablet 12/25/2022 03/12/2023 By Mouth As needed every 8 hr 629940 RxNorm 1-2 TABLET By Mouth As needed every 8 hr Anel-28 30 MCG-0.15 MG; NA Oral Tablet 12/25/2022 03/12/2023 By Mouth Daily 1 TABLET 190578 RxNorm 1 TABLET By Mouth Daily Macrobid 100MG Oral Capsule 02/20/2023 03/12/2023 By mouth Twice a day 1 TABLET 607211 RxNorm 1 TABLET By mouth Twice a day X 7 DAYS Pyridium 100MG Oral Tablet 02/20/2023 03/12/2023 By mouth As needed every 8 hr 1 TABLET 8522608 RxNorm 1 TABLET By mouth As needed every 8 hr for urinary pain ZyrTEC Allergy 10MG Oral Capsule, Liquid Filled 03/12/2023 Unknown By Mouth Daily 1 CAPSULE 5779518 RxNorm 1 CAPSULE By Mouth Daily Fluticasone 0.05MG/1Actuati on Nasal [place] 03/12/2023 Unknown Nasal Daily 1 Sprays 8555487 RxNorm 1 Spr ays Nasal Daily Azithromycin 500MG Oral Tablet 06/04/2024 Unknown By Mouth x1 NOW 2 TABLET 766673 RxNorm 2 TABLET By Mouth x1 NOW [...] Status Code Code System SEASONAL ALLERGY active 209169133 SNO MED-CT FAMILY PLANNING 06/20/2020 active 993820608 SNO MED-CT BITE OF INSECT active 868054432 SNOME D-CT ES OF VAGINA 08/07/2022 active 76132222 S NOMED-CT MENORRHAGIA active 738935637 SNOMED-C T PAINFUL NECK active 82023733 SNOMED- CT ADHD OF CHILDHOOD 07/22/2019 resolved 897747007 S NOMED-CT SEASONAL NASAL ALLERGY 07/22/2019 resolved 427455 001 SNOMED-CT HISTORY OF CHICKENPOX 07/22/2019 resolved 2417449 08 SNOMED-CT Allergies and Adverse Reactions Allergy Substance Reaction Severity Start Date Concern Status Co de Code System Active No Known Drug Allergies Active 779989784 SNOMED-CT Plan of Treatment Description Due Date Details Instructions DEPRESSION SCREENING DUE 06/20/2021 Personal Care Team Section
--- OUTSIDE RECORDS SUMMARY | 2025-05-22 10:14 | XMS_ITS ---
Author Organization Unknown Address [address] [place] [address] [phone] Phone Care Team Providers Care Human Service Coordinator Name Role Phone Blanco Gallego Attending Unavailable [...] em Smoking History Never smoker (Never Smoked) 958020335 SNOMED CT Sex Female Sexual Orientation Straight or Heterosexual 85979294 SNOMED CT Gender Identity Female [id number] [address] Vital Signs Vital Sign Value Unit [place] Value [place] Unit Date/Time Recent/Initial? Code Code System Body Mass Index 23.87 kg/m2 12/25/2022 13:33 Initial 99365 -5 [facility] Body Mass Index Percentile 74 % 12/25/2022 13:33 Initial 81305 -9 [facility] Systolic [...] O2 Saturation 100 % 2022 13:33 Initial 04768 -5 [facility] Pulse 82.0 /min 12/25/2022 13:33 Initial 8867- 4 [facility] Respiration 16 /min 12/25/19 13:33 Initial 9279- 1 [facility] Temperature 37.0 Antonella 98.6 F 12/25/19 13:33 Initial 8310- 5 [facility] Weight 71.21 kg 157.00 lbs 12/25/2022 13:33 Initial 08015 -7 [facility] Medications Medication Start Date End Date Route Frequency Dose Code Code System Medication Instructions Home Meds Radha 28 3MG-0.02MG Oral Tablet 09/12/2022 12/25/2022 By Mouth Once a day 1 TABLET RxNorm 1 TABLET By Mouth Once a day Medrol Dosepak 4MG Oral Tablet 12/25/2022 02/20/2023 By Mouth As Directed 1 PACK 368295 RxNorm 1 PACK By Mouth As Directed Methocarbamol 750MG Oral Tablet 12/25/2022 03/12/2023 By Mouth As needed every 8 hr 649127 RxNorm 1-2 TABLET By Mouth As needed every 8 hr Anel-28 30 MCG-0.15 MG; NA Oral Tablet 12/25/2022 03/12/2023 By Mouth Daily 1 TABLET 878458 RxNorm 1 TABLET By Mouth Daily Macrobid 100MG Oral Capsule 02/20/2023 03/12/2023 By mouth Twice a day 1 TABLET 416965 RxNorm 1 TABLET By mouth Twice a day X 7 DAYS Pyridium 100MG Oral Tablet 02/20/2023 03/12/2023 By mouth As needed every 8 hr 1 TABLET 6658781 RxNorm 1 TABLET By mouth As needed every 8 hr for urinary pain ZyrTEC Allergy 10MG Oral Capsule, Liquid Filled 03/12/2023 Unknown By Mouth Daily 1 CAPSULE 1063143 RxNorm 1 CAPSULE By Mouth Daily Fluticasone 0.05MG/1Actuati on Nasal [place] 03/12/2023 Unknown Nasal Daily 1 Sprays 1298508 RxNorm 1 Spr ays Nasal Daily Azithromycin 500MG Oral Tablet 06/04/2024 Unknown By Mouth x1 NOW 2 TABLET 684018 RxNorm 2 TABLET By Mouth x1 NOW Assessment You had the following problems:SEASONAL ALLERGYFAMILY PLANNINGBITE OF INSECTCANDIDA OF VAGINAMENORRHAGIAPAINFUL NECK Assessment/Plan: 1. Left upper back pain - Start steroids and muscle relaxer. Patient denies need for school note. 2. Contraceptive management - Patient requesting to restart [place], will restart at this time Return to clinic [facility] Discharge Instructions Should you have any questions prior to discharge, please contact a member of your healthcare team. If you have left the hospital and have any questions, please contact your primary care physician. Reason For Referral No Data Found Problems Problem Start Date Resolved Date Status Code Code System SEASONAL ALLERGY active 618978776 SNO MED-CT FAMILY PLANNING 06/20/2020 active 970425406 SNO MED-CT BITE OF INSECT active 947590037 SNOME D-CT ES OF VAGINA 08/07/2022 active 32914013 S NOMED-CT MENORRHAGIA active 727498651 SNOMED-C T PAINFUL NECK active 41781217 SNOMED- CT ADHD OF CHILDHOOD 07/22/2019 resolved 137145568 S NOMED-CT SEASONAL NASAL ALLERGY 07/22/2019 resolved 811526 001 SNOMED-CT HISTORY OF CHICKENPOX 07/22/2019 resolved 1160809 08 SNOMED-CT Allergies and Adverse Reactions Allergy Substance Reaction Severity Start Date Concern Status Co de Code System Active No Known Drug Allergies Active 148880256 SNOMED-CT Plan of Treatment Description Due Date Details Instructions DEPRESSION SCREENING DUE 06/20/2021 Encounters Encounter Diagnosis Start Date Code Code Sys tem Pain in thoracic spine 12/25/2022 032018263 SNOME D-CT Personal Care Team Section Progress Notes [facility] 12/25/2022 13:54 Admission Date/Time: 12/25/2022 13:07 [facility] Clinic Visit Note Chief Complaint: [facility] F/U UPPER BACK PAIN/BY NECK SWOLLEN [...] presents to [facility] today for [facility] follow up neck and back pain. Pt states she went to [facility] on 12-18-22 with neck and upper back pain. States it just started hurting her while at work, denies injury to the areas. 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 States she has been taking warm baths [...] Referring and communicating with other health healthcare applications analyst x Obtaining and/or reviewing separately obtained history Independent interpretation of results and communicating results to the patient/family/caregiver x Performing a medically appropriate examination/evaluation Care coordination (not reported separately) Ordered & Completed Meds Table: No Current Medications Available Discharge Med List: Discharge Medications: No Discharge Medications Available
[2025-05-22 10:16] VITALS: BP 139/84; PULSE 77; RESP 14; O2SAT 99
[2025-05-22 10:20] VITALS: BP 139/84; PULSE 80; RESP 18; TEMP 36.4; O2SAT 100
--- NOTE | 2025-05-22 10:21 | ECG_ITS ---
Test Date: 2025-05-22 10:27:39 Measurements Intervals [place] Rate: 74 P: 60 NV: 156 QRS: 84 QRSD: 97 T: 73 QT: 381 QTc: 423 Interpretive Statements SINUS RHYTHM WITH MARKED SINUS ARRHYTHMIA NONSPECIFIC T-WAVE ABNORMALITY ABNORMAL ECG Compared to ECG 01/31/2025 05:33:55 T-wave abnormality now present Sinus bradycardia no longer present Incomplete right bundle-branch block no longer present Electronically Signed On 05-22-2025 12:46:40 CDT by Eduardo Link M.D.
--- OUTSIDE RECORDS SUMMARY | 2025-05-22 10:22 | XMS_ITS ---
Author Organization Unknown Address [address], [place] [phone] Phone Care Team Providers Care German Tutor Name Role Phone DEON RAFIQ Attending Unavailable Results CYTOMEGALOVIRUS AB IGG - Col lect Date/Time: 10/22/2024 14:12 [facility] ID: [id number] [address] [place], [place], [id number] LOINC: 5124-3 Test Value Unit Reference Range Code Code System Flag CYTOMEGALOVIRUS ANTIBODY(IGG) >10.00 H PARVOVIRUS B19 IGG & IGM - C ollect Date/Time: 10/22/2024 14:12 [facility] ID: [id number] [address], [place], [id number] LOINC: 5273-8 Test Value Unit Reference Range Code Code System Flag PARVOVIRUS B19 ANTIBODY(IGG) 0.2 PARVOVIRUS B19 ANTIBODY(IGM) 0.2 Social History Type Status Start Date End Date Code Code Syst em Smoking History Never smoker (Never Smoked) 741305770 SNOMED CT Sex Female Sexual Orientation Straight or Heterosexual 99335875 SNOMED CT Gender Identity Female [id number] [address] Medications Medication Start Date End Date Route Frequency Dose Code Code System Medication Instructions Home Meds ZyrTEC Allergy 10MG Oral Capsule, Liquid Filled 03/12/2023 Unknown By Mouth Daily 1 CAPSULE 3946604 RxNorm 1 CAPSULE By Mouth Daily Fluticasone 0.05MG/1Actuatio n Nasal [place] 03/12/2023 Unknown Nasal Daily 1 Sprays 7040014 RxNorm 1 Spra ys Nasal Daily Azithromycin 500MG Oral Tablet 06/04/2024 Unknown By Mouth x1 NOW 2 TABLET 292399 RxNorm 2 TABLET By Mouth x1 NOW [...] Status Code Code System SEASONAL ALLERGY active 183431241 SNO MED-CT FAMILY PLANNING 06/20/2020 active 383985446 SNO MED-CT BITE OF INSECT active 148329307 SNOME D-CT ES OF VAGINA 08/07/2022 active 23584853 S NOMED-CT MENORRHAGIA active 232467364 SNOMED-C T PAINFUL NECK active 04580942 SNOMED- CT ADHD OF CHILDHOOD 07/22/2019 resolved 006274279 S NOMED-CT SEASONAL NASAL ALLERGY 07/22/2019 resolved 606185 001 SNOMED-CT HISTORY OF CHICKENPOX 07/22/2019 resolved 4681964 08 SNOMED-CT Allergies and Adverse Reactions Allergy Substance Reaction Severity Start Date Concern Status Co de Code System Active No Known Drug Allergies Active 948318137 SNOMED-CT Plan of Treatment Description Due Date Details Instructions DEPRESSION SCREENING DUE 06/20/2021 Encounters Encounter Diagnosis Start Date Code Code Sys tem ultrasound scan abnormal 10/22/2024 235589 005 SNOMED-CT Personal Care Team Section
--- OUTSIDE RECORDS SUMMARY | 2025-05-22 10:22 | XMS_ITS ---
Author Organization Unknown Address [address] [place] [address] [phone] Phone Care Team Providers Care Chef Passenger Vessel Name Role Phone ABBY AGUIRRE Attending Unavailable [...] em Smoking History Never smoker (Never Smoked) 159292835 SNOMED CT Sex Female Sexual Orientation Straight or Heterosexual 70804614 SNOMED CT Gender Identity Female 57952524604192 [address] Vital Signs Vital Sign Value Unit [place] Value [place] Unit Date/Time Recent/Initial? Code Code System Body Mass Index 26.21 kg/m2 05/06/2023 12:01 Initial 61247 -5 [facility] Body Mass Index Percentile 85 % 05/06/2023 12:01 Initial 49710 -9 [facility] Systolic Blood Pressure 118 mm[Hg] 05/06/2023 12:01 Initial 8480- 6 [facility] Diastolic Blood Pressure 74 mm[Hg] 05/06/2023 12:01 Initial 8462- 4 [facility] Body Surface Area 3.35 m2 05/06/2023 12:01 Initial 3140- 1 [facility] Height 248.920 0 cm 98.00 in 05/06/2023 12:01 Initial 8302- 2 [facility] O2 Saturation 98 % 2022 12:01 Initial 81698 -5 [facility] Pulse 78.0 /min 05/06/2023 12:01 Initial 8867- 4 [facility] Temperature 36.4 Antonella 97.5 F 05/06/20 12:01 Initial 8310- 5 [facility] Weight 162.40 kg 358.03 lbs 05/06/2023 12:01 Initial 81021 -7 [facility] Medications Medication Start Date End Date Route Frequency Dose Code Code System Medication Instructions Home Meds ZyrTEC Allergy 10MG Oral Capsule, Liquid Filled 03/12/2023 Unknown By Mouth Daily 1 CAPSULE 8526314 RxNorm 1 CAPSULE By Mouth Daily Fluticasone 0.05MG/1Actuatio n Nasal [place] 03/12/2023 Unknown Nasal Daily 1 Sprays 4032494 RxNorm 1 Spra ys Nasal Daily Azithromycin 500MG Oral Tablet 06/04/2024 Unknown By Mouth x1 NOW 2 TABLET 062118 RxNorm 2 TABLET By Mouth x1 NOW [...] Status Code Code System SEASONAL ALLERGY active 037967446 SNO MED-CT FAMILY PLANNING 06/20/2020 active 256955714 SNO MED-CT BITE OF INSECT active 548315153 SNOME D-CT ES OF VAGINA 08/07/2022 active 04286459 S NOMED-CT MENORRHAGIA active 249465092 SNOMED-C T PAINFUL NECK active 63555684 SNOMED- CT ADHD OF CHILDHOOD 07/22/2019 resolved 967954801 S NOMED-CT SEASONAL NASAL ALLERGY 07/22/2019 resolved 411724 001 SNOMED-CT HISTORY OF CHICKENPOX 07/22/2019 resolved 9101788 08 SNOMED-CT Allergies and Adverse Reactions Allergy Substance Reaction Severity Start Date Concern Status Co de Code System Active No Known Drug Allergies Active 469306784 SNOMED-CT Plan of Treatment Description Due Date Details Instructions DEPRESSION SCREENING DUE 06/20/2021 Encounters Encounter Diagnosis Start Date Code Code Sys tem Injury of head 05/06/2023 52576063 SNOMED-CT Personal Care Team Section Progress Notes [facility] 05/06/2023 13:28 Date of Service: 05/06/2023 Convenient [...] Instructions Start Date Prescribing Fluticasone 0.05MG/1Actuation Nasal [place] 1 Sprays Nasal Daily 03/12/2023 Blanco Gallego ZyrTEC Allergy 10MG Oral Capsule, Liquid Filled 1 CAPSULE By Mouth Daily 03/12/2023 Blanco Gallego This examination was transcribed using the [employer] voice recognition system without human aviation metalsmith. In an effort to expedite patient care, this report has not been adjusted for typographical, or medical or syntax by a trained medical records tech.
--- OUTSIDE RECORDS SUMMARY | 2025-05-22 10:23 | XMS_ITS ---
Author Organization Unknown Address [address], [place] [phone] Phone Care Team Providers Care Tailor Fitter Name Role Phone mattyKlausSHERMAN Machado Social History Type Status Start Date End Date Code Code Syst em Smoking History Never smoker (Never Smoked) 782834002 SNOMED CT Sex Female Sexual Orientation Straight or Heterosexual 45010821 SNOMED CT Gender Identity Female [id number] [address] Medications Medication Start Date End Date Route Frequency Dose Code Code System Medication Instructions Home Meds ZyrTEC Allergy 10MG Oral Capsule, Liquid Filled 03/12/2023 Unknown By Mouth Daily 1 CAPSULE 4450633 RxNorm 1 CAPSULE By Mouth Daily Fluticasone 0.05MG/1Actuatio n Nasal [place] 03/12/2023 Unknown Nasal Daily 1 Sprays 4577913 RxNorm 1 Spra ys Nasal Daily Azithromycin 500MG Oral Tablet 06/04/2024 Unknown By Mouth x1 NOW 2 TABLET 789821 RxNorm 2 TABLET By Mouth x1 NOW [...] Status Code Code System SEASONAL ALLERGY active 657487544 SNO MED-CT FAMILY PLANNING 06/20/2020 active 242042823 SNO MED-CT BITE OF INSECT active 175252500 SNOME D-CT ES OF VAGINA 08/07/2022 active 03984303 S NOMED-CT MENORRHAGIA active 705788096 SNOMED-C T PAINFUL NECK active 05648358 SNOMED- CT ADHD OF CHILDHOOD 07/22/2019 resolved 139131716 S NOMED-CT SEASONAL NASAL ALLERGY 07/22/2019 resolved 164255 001 SNOMED-CT HISTORY OF CHICKENPOX 07/22/2019 resolved 2669300 08 SNOMED-CT Allergies and Adverse Reactions Allergy Substance Reaction Severity Start Date Concern Status Co de Code System Active No Known Drug Allergies Active 342618750 SNOMED-CT Plan of Treatment Description Due Date Details Instructions DEPRESSION SCREENING DUE 06/20/2021 Encounters Encounter Diagnosis Start Date Code Code Sys tem Dysuria 06/03/2024 05402609 SNOMED-CT Personal Care Team Section
--- OUTSIDE RECORDS SUMMARY | 2025-05-22 10:23 | XMS_ITS ---
Author Organization Unknown Address [address] [place] [address] [phone] Phone Care Team Providers Care Enterprise Application Administrator Name Role Phone ATIYA Lezama MD [...] em Smoking History Never smoker (Never Smoked) 831569703 SNOMED CT Sex Female Sexual Orientation Straight or Heterosexual 64089036 SNOMED CT Gender Identity Female 04813228741197 [address] Vital Signs Vital Sign Value Unit [place] Value [place] Unit Date/Time Recent/Initial? Code Code System Body Mass Index 22.93 kg/m2 09/12/2022 17:59 Initial 52290 -5 [facility] Body Mass Index Percentile 67 % 09/12/2022 17:59 Initial 78594 -9 [facility] Systolic Blood Pressure 100 mm[Hg] 09/12/2022 17:59 Initial 8480- 6 [facility] Diastolic Blood Pressure 70 mm[Hg] 09/12/2022 17:59 Initial 8462- 4 [facility] Body Surface Area 1.81 m2 09/12/2022 17:59 Initial 3140- 1 [facility] Height 172.720 0 cm 68.00 in 09/12/2022 17:59 Initial 8302- 2 [facility] O2 Saturation 99 % 2021 17:59 Initial 17894 -5 [facility] Pulse 95.0 /min 09/12/2022 17:59 Initial 8867- 4 [facility] Respiration 18 /min 09/12/20 17:59 Initial 9279- 1 [facility] Temperature 36.9 Antonella 98.4 F 09/12/20 17:59 Initial 8310- 5 [facility] Weight 68.40 kg 150.80 lbs 09/12/2022 17:59 Initial 98703 -7 [facility] Medications Medication Start Date End Date Route Frequency Dose Code Code System Medication Instructions Home Meds Falun-28 30MCG-0.15MG-NA Oral Tablet 06/07/2022 09/12/2022 By Mouth Daily 1 TABLET 892414 RxNorm 1 TABLET By Mouth Daily Diflucan 150MG Oral Tablet 08/07/2022 09/12/2022 By Mouth x1 NOW 1 TABLET 736498 RxNorm 1 TABLET By Mouth x1 NOW FOR MARCH REPEAT IN 72 HOURS Radha 28 3MG-0.02MG Oral Tablet 09/12/2022 12/25/2022 By Mouth Once a day 1 TABLET RxNorm 1 TABLET By Mouth Once a day Medrol Dosepak 4MG Oral Tablet 12/25/2022 02/20/2023 By Mouth As Directed 1 PACK 655051 RxNorm 1 PACK By Mouth As Directed Methocarbamol 750MG Oral Tablet 12/25/2022 03/12/2023 By Mouth As needed every 8 hr 632859 RxNorm 1-2 TABLET By Mouth As needed every 8 hr Anel-28 30 MCG-0.15 MG; NA Oral Tablet 12/25/2022 03/12/2023 By Mouth Daily 1 TABLET 665269 RxNorm 1 TABLET By Mouth Daily Macrobid 100MG Oral Capsule 02/20/2023 03/12/2023 By mouth Twice a day 1 TABLET 191028 RxNorm 1 TABLET By mouth Twice a day X 7 DAYS Pyridium 100MG Oral Tablet 02/20/2023 03/12/2023 By mouth As needed every 8 hr 1 TABLET 4607443 RxNorm 1 TABLET By mouth As needed every 8 hr for urinary pain ZyrTEC Allergy 10MG Oral Capsule, Liquid Filled 03/12/2023 Unknown By Mouth Daily 1 CAPSULE 0834210 RxNorm 1 CAPSULE By Mouth Daily Fluticasone 0.05MG/1Actuatio n Nasal [place] 03/12/2023 Unknown Nasal Daily 1 Sprays 4412042 RxNorm 1 Spra ys Nasal Daily Azithromycin 500MG Oral Tablet 06/04/2024 Unknown By Mouth x1 NOW 2 TABLET 798398 RxNorm 2 TABLET By Mouth x1 NOW [...] Status Code Code System SEASONAL ALLERGY active 140779969 SNO MED-CT FAMILY PLANNING 06/20/2020 active 277716441 SNO MED-CT BITE OF INSECT active 750368100 SNOME D-CT ES OF VAGINA 08/07/2022 active 92882315 S NOMED-CT MENORRHAGIA active 654403654 SNOMED-C T PAINFUL NECK active 78176577 SNOMED- CT ADHD OF CHILDHOOD 07/22/2019 resolved 061702140 S NOMED-CT SEASONAL NASAL ALLERGY 07/22/2019 resolved 583288 001 SNOMED-CT HISTORY OF CHICKENPOX 07/22/2019 resolved 9204653 08 SNOMED-CT Allergies and Adverse Reactions Allergy Substance Reaction Severity Start Date Concern Status Co de Code System Active No Known Drug Allergies Active 788997110 SNOMED-CT Plan of Treatment Description Due Date Details Instructions DEPRESSION SCREENING DUE 06/20/2021 Future Order Description Future Order Date Futu re Order Loinc: TSH 09/12/2022 LOINC: 13885-4 FREE T4 09/12/2022 LOINC: 3024-7 CBC W DIFF 09/12/2022 LOINC: 02615-0 COMPREHENSIVE METABOLIC PANEL 09/12/2022 L OINC: 37544-5 PT (PROTIME) 09/12/2022 LOINC: 6301-6 Encounters Encounter Diagnosis Start Date Code Code Sys tem Excessive and frequent menstruation 09/12/2022 50269 1003 SNOMED-CT Personal Care Team Section Progress Notes [facility] 09/13/2022 09:49 Admission Date/Time: 09/12/2022 13:21 Rachael Andersen MD Clinic Visit Note Chief Complaint: DISCUSS BC Has the patient received a COVID Vaccine? Yes Nurse Note: this nurse note is documented by Opal Ly CMA 17 yr old female present to [facility] today to discuss BC History of Present Illness: An 17-year-old presents to [facility] today to discuss BC. Patient states since [...] due to pain. Patient is currently on Falun for BC. Patient states when she first took the Falun she noticed tissue came out of her [...] Referring and communicating with other health career technology teacher Obtaining and/or reviewing separately obtained history [...]
--- OUTSIDE RECORDS SUMMARY | 2025-05-22 10:23 | XMS_ITS ---
Author Organization Unknown Address [address] [place] [phone] Phone Care Team Providers Care Replanting Machine Crewman Name Role Phone Blanco Gallego Attending Unavailable [...] em Smoking History Never smoker (Never Smoked) 602267438 SNOMED CT Sex Female Sexual Orientation Straight or Heterosexual 85814830 SNOMED CT Gender Identity Female 18076324364892 [address] Medications Medication Start Date End Date Route Frequency Dose Code Code System Medication Instructions Home Meds Medrol Dosepak 4MG Oral Tablet 12/25/2022 02/20/2023 By Mouth As Directed 1 PACK 131568 RxNorm 1 PACK By Mouth As Directed Methocarbamol 750MG Oral Tablet 12/25/2022 03/12/2023 By Mouth As needed every 8 hr 100511 RxNorm 1-2 TABLET By Mouth As needed every 8 hr [place]-28 30 MCG-0.15 MG; NA Oral Tablet 12/25/2022 03/12/2023 By Mouth Daily 1 TABLET 905478 RxNorm 1 TABLET By Mouth Daily Macrobid 100MG Oral Capsule 02/20/2023 03/12/2023 By mouth Twice a day 1 TABLET 513676 RxNorm 1 TABLET By mouth Twice a day X 7 DAYS Pyridium 100MG Oral Tablet 02/20/2023 03/12/2023 By mouth As needed every 8 hr 1 TABLET 2398128 RxNorm 1 TABLET By mouth As needed every 8 hr for urinary pain ZyrTEC Allergy 10MG Oral Capsule, Liquid Filled 03/12/2023 Unknown By Mouth Daily 1 CAPSULE 9828658 RxNorm 1 CAPSULE By Mouth Daily Fluticasone 0.05MG/1Actuati on Nasal [place] 03/12/2023 Unknown Nasal Daily 1 Sprays 5929004 RxNorm 1 Spr ays Nasal Daily Azithromycin 500MG Oral Tablet 06/04/2024 Unknown By Mouth x1 NOW 2 TABLET 520797 RxNorm 2 TABLET By Mouth x1 NOW [...] Status Code Code System SEASONAL ALLERGY active 193907653 SNO MED-CT FAMILY PLANNING 06/20/2020 active 070147407 SNO MED-CT BITE OF INSECT active 755600102 SNOME D-CT ES OF VAGINA 08/07/2022 active 50378659 S NOMED-CT MENORRHAGIA active 716395409 SNOMED-C T PAINFUL NECK active 54577380 SNOMED- CT ADHD OF CHILDHOOD 07/22/2019 resolved 132517029 S NOMED-CT SEASONAL NASAL ALLERGY 07/22/2019 resolved 154027 001 SNOMED-CT HISTORY OF CHICKENPOX 07/22/2019 resolved 4591101 08 SNOMED-CT Allergies and Adverse Reactions Allergy Substance Reaction Severity Start Date Concern Status Co de Code System Active No Known Drug Allergies Active 044788967 SNOMED-CT Plan of Treatment Description Due Date Details Instructions DEPRESSION SCREENING DUE 06/20/2021 Personal Care Team Section
--- OUTSIDE RECORDS SUMMARY | 2025-05-22 10:23 | XMS_ITS ---
Author Organization Unknown Address [address] [place] [address] [phone] Phone Care Team Providers Care Mosaic Technician Name Role Phone Blanco Gallego Attending [...] em Smoking History Never smoker (Never Smoked) 572689173 SNOMED CT Sex Female Sexual Orientation Straight or Heterosexual 63939903 SNOMED CT Gender Identity Female [id number] [address] Vital Signs Vital Sign Value Unit Corral Value Corral Unit Date/Time Recent/Initial? Code Code System Body Mass Index 21.85 kg/m2 06/07/2022 14:23 Initial 73389 -5 [facility] Body Mass Index Percentile 57 % 06/07/2022 14:23 Initial 21640 -9 [facility] Systolic Blood Pressure 118 mm[Hg] 06/07/2022 14:23 Initial 8480- 6 [facility] Diastolic Blood Pressure 72 mm[Hg] 06/07/2022 14:23 Initial 8462- 4 [facility] Body Surface Area 1.75 m2 06/07/2022 14:23 Initial 3140- 1 [facility] Height 171.450 0 cm 67.50 in 06/07/2022 14:23 Initial 8302- 2 [facility] O2 Saturation 99 % 2021 14:23 Initial 01431 -5 [facility] Pulse 107.0 /min 06/07/2022 14:23 Initial 8867- 4 [facility] Respiration 20 /min 06/07/20 14:23 Initial 9279- 1 [facility] Temperature 36.6 Antonella 97.8 F 06/07/20 14:23 Initial 8310- 5 [facility] Weight 64.23 kg 141.60 lbs 06/07/2022 14:23 Initial 40202 -7 [facility] Medications Medication Start Date End Date Route Frequency Dose Code Code System Medication Instructions Home Meds predniSONE 50MG Oral Tablet 06/07/2022 07/31/2022 By Mouth Daily 1 TABLET 164271 RxNorm 1 TABLET By Mouth Daily 30MCG-0.15MG-NA Oral Tablet 06/07/2022 09/12/2022 By Mouth Daily 1 TABLET 264495 RxNorm 1 TABLET By Mouth Daily Diflucan 150MG Oral Tablet 08/07/2022 09/12/2022 By Mouth x1 NOW 1 TABLET 359387 RxNorm 1 TABLET By Mouth x1 NOW FOR MARCH REPEAT IN 72 HOURS Radha 28 3MG-0.02MG Oral Tablet 09/12/2022 12/25/2022 By Mouth Once a day 1 TABLET RxNorm 1 TABLET By Mouth Once a day Medrol Dosepak 4MG Oral Tablet 12/25/2022 02/20/2023 By Mouth As Directed 1 PACK 625699 RxNorm 1 PACK By Mouth As Directed Methocarbamol 750MG Oral Tablet 12/25/2022 03/12/2023 By Mouth As needed every 8 hr 862788 RxNorm 1-2 TABLET By Mouth As needed every 8 hr Anel-28 30 MCG-0.15 MG; NA Oral Tablet 12/25/2022 03/12/2023 By Mouth Daily 1 TABLET 917609 RxNorm 1 TABLET By Mouth Daily Macrobid 100MG Oral Capsule 02/20/2023 03/12/2023 By mouth Twice a day 1 TABLET 255229 RxNorm 1 TABLET By mouth Twice a day X 7 DAYS Pyridium 100MG Oral Tablet 02/20/2023 03/12/2023 By mouth As needed every 8 hr 1 TABLET 1240823 RxNorm 1 TABLET By mouth As needed every 8 hr for urinary pain ZyrTEC Allergy 10MG Oral Capsule, Liquid Filled 03/12/2023 Unknown By Mouth Daily 1 CAPSULE 7296574 RxNorm 1 CAPSULE By Mouth Daily Fluticasone 0.05MG/1Actuati on Nasal [place] 03/12/2023 Unknown Nasal Daily 1 Sprays 9103678 RxNorm 1 Spr ays Nasal Daily Azithromycin 500MG Oral Tablet 06/04/2024 Unknown By Mouth x1 NOW 2 TABLET 234643 RxNorm 2 TABLET By Mouth x1 NOW [...] Status Code Code System SEASONAL ALLERGY active 127957425 SNO MED-CT FAMILY PLANNING 06/20/2020 active 421258235 SNO MED-CT BITE OF INSECT active 357647219 SNOME D-CT ES OF VAGINA 08/07/2022 active 33836780 S NOMED-CT MENORRHAGIA active 171920689 SNOMED-C T PAINFUL NECK active 80431116 SNOMED- CT ADHD OF CHILDHOOD 07/22/2019 resolved 101831408 S NOMED-CT SEASONAL NASAL ALLERGY 07/22/2019 resolved 252245 001 SNOMED-CT HISTORY OF CHICKENPOX 07/22/2019 resolved 7201708 08 SNOMED-CT Allergies and Adverse Reactions Allergy Substance Reaction Severity Start Date Concern Status Co de Code System Active No Known Drug Allergies Active 527785002 SNOMED-CT Plan of Treatment Description Due Date Details Instructions DEPRESSION SCREENING DUE 06/20/2021 Encounters Encounter Diagnosis Start Date Code Code Sys tem Well child visit 06/07/2022 776902833 SNOMED-CT Personal Care Team Section Progress Notes [facility] 06/07/2022 15:22 All Demographics Patient Name Age Sex Visit Number Admission Date/Time Attending Physician Date of Service Room and Bed Emergency Contact NELA MANZANARES 2005 16 years Female [id number] 06/07/2022 14:22 Julián Simeon 06/07/2022 402 06/07/2022 14:25 Accompanied By: Parent Parent, mother X. Parent, father Guardian Relative career services representative Caregiver Family Protective services Friend Healthcare provider Law enforcement Helper/Driver / EMS Spouse / SO Other: Preferred Language: Djib[place]ian. Vital Signs: This Visit Date/Time BP (mm/Hg) [...] environment active No Known Drug Allergies medication erzywvf-li-yidpf Nutrition X. Daily fruits and vegetables Iron [...] Record reviewed Up-to-date for age Administered Today: [place] Screening Depression Screening (annually) Screening Tool Used: [...] year Next Visit: Referral to: 16 y/o [facility] - Anticipatory guidance and bright futures discussed. Discussed control methods and will start patient on Anel. Patient to notify office if she is having any side effects. Patient states she is having anxiety, offered multiple options for managing anxiety, patient declines at this time.
--- OUTSIDE RECORDS SUMMARY | 2025-05-22 10:23 | XMS_ITS ---
Author Organization Unknown Address [address] [place] [address] [phone] Phone Care Team Providers Care Home Care Associate Name Role Phone JOSUE FULTON Attending Unavailable [...] MICR O - Collect Date/Time: 02/20/2023 18:44 [facility] ID: [id number] [address] [place] [address], [phone] LOINC: Test Value Unit Reference Range Code [...] TEST - Colle ct Date/Time: 02/20/2023 18:43 [facility] ID: [id number] [address] [place] [address], [phone] LOINC: Test Value Unit Reference Range Code Code System Flag TEST PERFORMED URINE PREG (URINE) NEGATIVE LOT#: [id number] EXP DATE: 2023-12-11 QC: ACCEPTABLE Social History Type Status Start Date End Date Code Code Syst em Smoking History Never smoker (Never Smoked) 278726516 SNOMED CT Sex Female Sexual Orientation Straight or Heterosexual 67376524 SNOMED CT Gender Identity Female 59552564858161 [address] Vital Signs Vital Sign Value Unit Wallace Value Wallace Unit Date/Time Recent/Initial? Code Code System Body Mass Index 24.50 kg/m2 02/20/2023 18:36 Initial 75273 -5 [facility] Body Mass Index Percentile 77 % 02/20/2023 18:36 Initial 09015 -9 [facility] Systolic Blood Pressure 112 mm[Hg] 02/20/2023 18:36 Initial 8480- 6 [facility] Diastolic Blood Pressure 70 mm[Hg] 02/20/2023 18:36 Initial 8462- 4 [facility] Body Surface Area 1.85 m2 02/20/2023 18:36 Initial 3140- 1 [facility] Height 171.450 0 cm 67.50 in 02/20/2023 18:36 Initial 8302- 2 [facility] O2 Saturation 98 % 2022 18:36 Initial 55736 -5 [facility] Pulse 91.0 /min 02/20/2023 18:36 Initial 8867- 4 [facility] Temperature 37.2 Antonella 98.9 F 02/21/20 18:36 Initial 8310- 5 [facility] Weight 72.03 kg 158.80 lbs 02/20/2023 18:36 Initial 79703 -7 [facility] Medications Medication Start Date End Date Route Frequency Dose Code Code System Medication Instructions Home Meds Medrol Dosepak 4MG Oral Tablet 12/25/2022 02/20/2023 By Mouth As Directed 1 PACK 858109 RxNorm 1 PACK By Mouth As Directed Methocarbamol 750MG Oral Tablet 12/25/2022 03/12/2023 By Mouth As needed every 8 hr 847058 RxNorm 1-2 TABLET By Mouth As needed every 8 hr Anel-28 30 MCG-0.15 MG; NA Oral Tablet 12/25/2022 03/12/2023 By Mouth Daily 1 TABLET 880462 RxNorm 1 TABLET By Mouth Daily Macrobid 100MG Oral Capsule 02/20/2023 03/12/2023 By mouth Twice a day 1 TABLET 309648 RxNorm 1 TABLET By mouth Twice a day X 7 DAYS Pyridium 100MG Oral Tablet 02/20/2023 03/12/2023 By mouth As needed every 8 hr 1 TABLET 3333466 RxNorm 1 TABLET By mouth As needed every 8 hr for urinary pain ZyrTEC Allergy 10MG Oral Capsule, Liquid Filled 03/12/2023 Unknown By Mouth Daily 1 CAPSULE 5280911 RxNorm 1 CAPSULE By Mouth Daily Fluticasone 0.05MG/1Actuati on Nasal [place] 03/12/2023 Unknown Nasal Daily 1 Sprays 1749053 RxNorm 1 Spr ays Nasal Daily Azithromycin 500MG Oral Tablet 06/04/2024 Unknown By Mouth x1 NOW 2 TABLET 962363 RxNorm 2 TABLET By Mouth x1 NOW [...] Status Code Code System SEASONAL ALLERGY active 530584870 SNO MED-CT FAMILY PLANNING 06/20/2020 active 250908740 SNO MED-CT BITE OF INSECT active 848256252 SNOME D-CT ES OF VAGINA 08/07/2022 active 80961343 S NOMED-CT MENORRHAGIA active 173965170 SNOMED-C T PAINFUL NECK active 26738854 SNOMED- CT ADHD OF CHILDHOOD 07/22/2019 resolved 867454899 S NOMED-CT SEASONAL NASAL ALLERGY 07/22/2019 resolved 489974 001 SNOMED-CT HISTORY OF CHICKENPOX 07/22/2019 resolved 8482581 08 SNOMED-CT Allergies and Adverse Reactions Allergy Substance Reaction Severity Start Date Concern Status Co de Code System Active No Known Drug Allergies Active 141189782 SNOMED-CT Plan of Treatment Description Due Date Details Instructions DEPRESSION SCREENING DUE 06/20/2021 Future Order Description Future Order Date Futu re Order Loinc: CULTURE URINE 02/20/2023 LOINC: 630-4 TRICHOMONAS VAGINALIS FEMALE RNA QUAL 3 LOINC: 98949-2 GC/CHLAMYDIA PCR [place] 02/20/2023 LOINC: 448 06-8 CULTURE YEAST, WITH IDENTIFICATION 02/20/2023 LOINC: 96859-6 BACTERIAL VAGINOSIS RAPID TEST 02/20/2023 LOINC: 6410-5 Encounters Encounter Diagnosis Start Date Code Code Sys tem Urinary tract infectious disease 02/20/2023 13522233 SNOMED-CT Personal Care Team Section Progress Notes [facility] 02/20/2023 19:27 Admission Date/Time: 02/20/2023 18:07 [...] up. This examination was transcribed using the [employer] voice recognition system without human biscuit maker. In an effort to expedite patient care, this report has not been adjusted for typographical, or medical or syntax by a trained medical information officer. Allergy Table Allergen Type Reaction seasonal allergies [...] NEGATIVE 02/20/2023 18:38 02/20/2023 18:43 final LOT#: [id number] 02/20/2023 18:38 02/20/2023 18:43 final EXP DATE: [...]
--- OUTSIDE RECORDS SUMMARY | 2025-05-22 10:23 | XMS_ITS ---
Author Organization Unknown Address [address] [place] [address] [phone] Phone Care Team Providers Care Payroll Assistant Name Role Phone Blanco Gallego Attending [...] ANTIGEN - Collec t Date/Time: 03/12/2023 14:51 [facility] ID: [id number] [address] [place], [place], [phone] LOINC: 6556-5 Test Value Unit Reference Range Code Code System Flag COVID RAPID ANTI NEGATIVE NORMAL: NEGATIVE LOT#: [id number] Exp Date: 12/07/2023 QC: ACCEPTABLE STREP A SCREEN - Collect Sha e/Time: 03/12/2023 14:50 [facility] ID: [id number] [address], [place], [phone] LOINC: 6556-5 Test Value Unit Reference Range Code Code System Flag STREP SCREEN NEGATIVE NORMAL: NEGATIVE 6556-5 LOINC Lot#: [id number] Exp Date: 04/10/2024 QC STREP ACCEPTABLE Social History Type Status Start Date End Date Code Code Syst em Smoking History Never smoker (Never Smoked) 903993871 SNOMED CT Sex Female Sexual Orientation Straight or Heterosexual 93174268 SNOMED CT Gender Identity Female 87365926416819 [address] Vital Signs Vital Sign Value Unit [place] Value [place] Unit Date/Time Recent/Initial? Code Code System Body Mass Index 23.57 kg/m2 03/12/2023 14:40 Initial 05445 -5 [facility] Body Mass Index Percentile 71 % 03/12/2023 14:40 Initial 77227 -9 [facility] Systolic Blood Pressure 100 mm[Hg] 03/12/2023 14:40 Initial 8480- 6 [facility] Diastolic Blood Pressure 68 mm[Hg] 03/12/2023 14:40 Initial 8462- 4 [facility] Body Surface Area 1.84 m2 03/12/2023 14:40 Initial 3140- 1 [facility] Height 172.720 0 cm 68.00 in 03/12/2023 14:40 Initial 8302- 2 [facility] O2 Saturation 95 % 2022 14:40 Initial 00712 -5 [facility] Pulse 56.0 /min 03/12/2023 14:40 Initial 8867- 4 [facility] Respiration 16 /min 03/12/20 14:40 Initial 9279- 1 [facility] Temperature 37.5 Antonella 99.5 F 03/12/20 14:40 Initial 8310- 5 [facility] Weight 70.31 kg 155.00 lbs 03/12/2023 14:40 Initial 94778 -7 [facility] Medications Medication Start Date End Date Route Frequency Dose Code Code System Medication Instructions Home Meds Methocarbamol 750MG Oral Tablet 12/25/2022 03/12/2023 By Mouth As needed every 8 hr 154951 RxNorm 1-2 TABLET By Mouth As needed every 8 hr [place]-28 30 MCG-0.15 MG; NA Oral Tablet 12/25/2022 03/12/2023 By Mouth Daily 1 TABLET 715319 RxNorm 1 TABLET By Mouth Daily Macrobid 100MG Oral Capsule 02/20/2023 03/12/2023 By mouth Twice a day 1 TABLET 567220 RxNorm 1 TABLET By mouth Twice a day X 7 DAYS Pyridium 100MG Oral Tablet 02/20/2023 03/12/2023 By mouth As needed every 8 hr 1 TABLET 0035117 RxNorm 1 TABLET By mouth As needed every 8 hr for urinary pain ZyrTEC Allergy 10MG Oral Capsule, Liquid Filled 03/12/2023 Unknown By Mouth Daily 1 CAPSULE 4326032 RxNorm 1 CAPSULE By Mouth Daily Fluticasone 0.05MG/1Actuati on Nasal [place] 03/12/2023 Unknown Nasal Daily 1 Sprays 8907645 RxNorm 1 Spr ays Nasal Daily Azithromycin 500MG Oral Tablet 06/04/2024 Unknown By Mouth x1 NOW 2 TABLET 702803 RxNorm 2 TABLET By Mouth x1 NOW [...] Status Code Code System SEASONAL ALLERGY active 163980710 SNO MED-CT FAMILY PLANNING 06/20/2020 active 072211183 SNO MED-CT BITE OF INSECT active 289214213 SNOME D-CT ES OF VAGINA 08/07/2022 active 20520660 S NOMED-CT MENORRHAGIA active 052210035 SNOMED-C T PAINFUL NECK active 91224214 SNOMED- CT ADHD OF CHILDHOOD 07/22/2019 resolved 009981642 S NOMED-CT SEASONAL NASAL ALLERGY 07/22/2019 resolved 756493 001 SNOMED-CT HISTORY OF CH[place]ENPOX 07/22/2019 resolved 8273280 08 SNOMED-CT Allergies and Adverse Reactions Allergy Substance Reaction Severity Start Date Concern Status Co de Code System Active No Known Drug Allergies Active 391455897 SNOMED-CT Plan of Treatment Description Due Date Details Instructions DEPRESSION SCREENING DUE 06/20/2021 Encounters Encounter Diagnosis Start Date Code Code Sys tem Seasonal allergic rhinitis 03/12/2023 636624231 S NOMED-CT Personal Care Team Section Progress Notes [facility] 03/12/2023 15:06 Admission Date/Time: 03/12/2023 11:24 [...] is an 17 yo female presents to [facility] today for sore throat [...] records Referring and communicating with other health disabilities caregiver x Obtaining and/or reviewing separately obtained history Independent interpretation of results and communicating results to the patient/family/caregiver x Performing a medically appropriate examination/evaluation Care coordination (not reported separately) x Discharge instructions given to patient. Ordered & Completed Meds Table: No Current Medications Available Discharge Med List: Discharge Medications: No Discharge Medications Available [facility] 03/12/2023 15:20 Current Date/Time: 03/12/2023 15:03 Patient Name: NELA MANZANARES was seen at [facility] [phone] on Date of Service: 03/12/2023 . They may return to school on 03/13/2023 with No restrictions . .
--- OUTSIDE RECORDS SUMMARY | 2025-05-22 10:24 | XMS_ITS ---
Author Organization Unknown Address [address], [place] [phone] Phone Care Team Providers Care Manager Planning Name Role Phone JOSUE FULTON EDMOND Attending Unavailable Results CULTURE YEAST, WITH IDENTIFI CATION - Collect Date/Time: 02/20/2023 18:42 [facility] ID: [id number] [address], [place], [phone] LOINC: 5048-4 Test Value Unit Reference Range Code Code System Flag SOURCE: VAGINAL STATUS: FINAL ISOLATE 1: Marg[place] albicans A TRICHOMONAS VAGINALIS FEMALE RNA QUAL - Collect Date/Time: 02/20/2023 18:40 [facility] ID: [id number] [address], [place], [phone] LOINC: 85442-4 Test Value Unit Reference Range Code Code System Flag TRICHOMONAS VAGINALISRNA, QL TMA NOT DETECTED NOT DETECTED GC/CHLAMYDIA PCR [facility] ct Date/Time: 02/20/2023 18:40 [facility] ID: [id number] [address], [place], [phone] LOINC: 5048-4 Test Value Unit Reference Range Code Code System Flag GONORRHEA PCR NOT DETECTED NORMAL: NOT DETECTED CHLAMYDIA PCR NOT DETECTED NORMAL: NOT DETECTED BACTERIAL VAGINOSIS RAPID TE ST - Collect Date/Time: 02/20/2023 18:40 [facility] ID: [id number] [address], [place], [address] LOINC: 6410-5 Test Value Unit Reference Range Code Code System Flag BACTERIAL VAGINOSIS NEGATIVE NORMAL: NEGATIVE Social History Type Status Start Date End Date Code Code Syst em Smoking History Never smoker (Never Smoked) 658766511 SNOMED CT Sex Female Sexual Orientation Straight or Heterosexual SNOMED CT Gender Identity Female 10337989061564 [address] Medications Medication Start Date End Date Route Frequency Dose Code Code System Medication Instructions Home Meds Methocarbamol 750MG Oral Tablet 12/25/2022 03/12/2023 By Mouth As needed every 8 hr 694876 RxNorm 1-2 TABLET By Mouth As needed every 8 hr [place]-28 30 MCG-0.15 MG; NA Oral Tablet 12/25/2022 03/12/2023 By Mouth Daily 1 TABLET 541463 RxNorm 1 TABLET By Mouth Daily Macrobid 100MG Oral Capsule 02/20/2023 03/12/2023 By mouth Twice a day 1 TABLET 841224 RxNorm 1 TABLET By mouth Twice a day X 7 DAYS Pyridium 100MG Oral Tablet 02/20/2023 03/12/2023 By mouth As needed every 8 hr 1 TABLET 7937211 RxNorm 1 TABLET By mouth As needed every 8 hr for urinary pain ZyrTEC Allergy 10MG Oral Capsule, Liquid Filled 03/12/2023 Unknown By Mouth Daily 1 CAPSULE 1368084 RxNorm 1 CAPSULE By Mouth Daily Fluticasone 0.05MG/1Actuati on Nasal [place] 03/12/2023 Unknown Nasal Daily 1 Sprays 3219736 RxNorm 1 Spr ays Nasal Daily Azithromycin 500MG Oral Tablet 06/04/2024 Unknown By Mouth x1 NOW 2 TABLET 953077 RxNorm 2 TABLET By Mouth x1 NOW [...] Status Code Code System SEASONAL ALLERGY active 936809688 SNO MED-CT FAMILY PLANNING 06/20/2020 active 539117299 SNO MED-CT BITE OF INSECT active 855459049 SNOME D-CT MARGOTH OF VAGINA 08/07/2022 active 47837052 S NOMED-CT MENORRHAGIA active 335613831 SNOMED-C T PAINFUL NECK active 51377929 SNOMED- CT ADHD OF CHILDHOOD 07/22/2019 resolved 169177691 S NOMED-CT SEASONAL NASAL ALLERGY 07/22/2019 resolved 633781 001 SNOMED-CT HISTORY OF [place]PO[place] 07/22/2019 resolved 7022600 08 SNOMED-CT Allergies and Adverse Reactions Allergy Substance Reaction Severity Start Date Concern Status Co de Code System Active No Known Drug Allergies Active 478739249 SNOMED-CT Plan of Treatment Description Due Date Details Instructions DEPRESSION SCREENING DUE 06/20/2021 Encounters Encounter Diagnosis Start Date Code Code Sys tem Dysuria 02/20/2023 91216850 SNOMED-CT Personal Care Team Section
--- OUTSIDE RECORDS SUMMARY | 2025-05-22 10:24 | XMS_ITS ---
Author Organization Unknown Address [address] [place] [phone] Phone Care Team Providers Care Exterminator Helper Termite Name Role Phone VIRAL Brody Attending Unavailable [...] MICR O - Collect Date/Time: 06/03/2024 15:21 [facility] ID: [id number] [address] [place] [address], [phone] LOINC: Test Value Unit Reference Range Code [...] em Smoking History Never smoker (Never Smoked) 511082968 SNOMED CT Sex Female Sexual Orientation Straight or Heterosexual 53938227 SNOMED CT Gender Identity Female 55735833441529 [address] Vital Signs Vital Sign Value Unit [place] Value [place] Unit Date/Time Recent/Initial? Code Code System Body Mass Index 25.85 kg/m2 06/03/2024 14:31 Initial 59479 -5 [facility] Body Mass Index Percentile 82 % 06/03/2024 14:31 Initial 76002 -9 LOINC Systolic Blood Pressure 118 mm[Hg] [...] O2 Saturation 100 % 2023 14:31 Initial 15671 -5 [facility] Pulse 93.0 /min 06/03/2024 14:31 Initial 8867- 4 [facility] Temperature 36.7 Antonella 98.0 F 06/03/20 14:31 Initial 8310- 5 [facility] Weight 77.11 kg 170.00 lbs 06/03/2024 14:31 Initial 09881 -7 [facility] Medications Medication Start Date End Date Route Frequency Dose Code Code System Medication Instructions Home Meds ZyrTEC Allergy 10MG Oral Capsule, Liquid Filled 03/12/2023 Unknown By Mouth Daily 1 CAPSULE 6577156 RxNorm 1 CAPSULE By Mouth Daily Fluticasone 0.05MG/1Actuatio n Nasal [place] 03/12/2023 Unknown Nasal Daily 1 Sprays 4375241 RxNorm 1 Spra ys Nasal Daily Azithromycin 500MG Oral Tablet 06/04/2024 Unknown By Mouth x1 NOW 2 TABLET 726776 RxNorm 2 TABLET By Mouth x1 NOW [...] sex practices. 3. -Keep follow up with [facility] for next week. -Given handouts for [...] up. This examination was transcribed using the [employer] voice recognition system without a human nursing attendant. To expedite patient care, this report has not been adjusted for typographical, or medical, or syntax by a trained medical planner. Hospital Discharge Instructions Should you have any questions prior to discharge, please contact a member of your healthcare team. If you have left the hospital and have any questions, please contact your primary care physician. Reason For Referral No Data Found Problems Problem Start Date Resolved Date Status Code Code System SEASONAL ALLERGY active 661848430 SNO MED-CT FAMILY PLANNING 06/20/2020 active 764448798 SNO MED-CT BITE OF INSECT active 052597188 SNOME D-CT ES OF VAGINA 08/07/2022 active 81131096 S NOMED-CT MENORRHAGIA active 282044771 SNOMED-C T PAINFUL NECK active 23230816 SNOMED- CT ADHD OF CHILDHOOD 07/22/2019 resolved 138799381 S NOMED-CT SEASONAL NASAL ALLERGY 07/22/2019 resolved 718787 001 SNOMED-CT HISTORY OF [place] 07/22/2019 resolved 6569444 08 SNOMED-CT Allergies and Adverse Reactions Allergy Substance Reaction Severity Start Date Concern Status Co de Code System Active No Known Drug Allergies Active 221483608 SNOMED-CT Plan of Treatment Description Due Date Details Instructions DEPRESSION SCREENING DUE 06/20/2021 Future Order Description Future Order Date Futu re Order Loinc: TRICHOMONAS VAGINALIS FEMALE RNA QUAL LOINC: 70404-5 GC PCR [facility] 06/03/2024 LOINC: 07731-0 CHLAMYDIA PCR [facility] 06/03/2024 LOINC: 16340- 5 BACTERIAL VAGINOSIS RAPID TEST 06/03/2024 LOINC: 6410-5 CULTURE YEAST, WITH IDENTIFICATION 06/03/2024 LOINC: 55189-2 Encounters Encounter Diagnosis Start Date Code Code Sys tem Acute vaginitis 06/03/2024 25321198 SNOMED-CT Personal Care Team Section Progress Notes [facility] 06/03/2024 15:50 Date of Service: 06/03/2024 [facility] Visit Tisha Stevenson, CLIENT DELIVERY SPECIALIST-Sylvia Chief Complaint: LUMP ON STOMACH History of Present Illness: Age: 18 years The patient is a 18-year-old female presenting to [facility] today for evaluation of right upper side abdominal lump and vaginal discharge with odor and clear/white discharge. She reports she is currently 4-6 weeks with LMP at the beginning of April. She has an appointment scheduled with [facility] for an OBGYN next week. She [...] sex practices. 3. -Keep follow up with [facility] for next week. -Given handouts for [...] up. This examination was transcribed using the [employer] voice recognition system without a human nursing attendant. To expedite patient care, this report has not been adjusted for typographical, or medical, or syntax by a trained medical planner. Meds Given This Visit: Meds ordered and administered this visit: No Current Medications Available Discharge Med List: Discharge Medications Medication Special Instructions Start Date Prescribing Fluticasone 0.05MG/1Actuation Nasal [place] 1 Sprays Nasal Daily 03/12/2023 Blanco Gallego ZyrTEC Allergy 10MG Oral Capsule, Liquid Filled 1 CAPSULE By Mouth Daily 03/12/2023 Blanco Gallego
--- OUTSIDE RECORDS SUMMARY | 2025-05-22 10:24 | XMS_ITS ---
Author Organization Unknown Address [address], [place] [phone] Phone Care Team Providers Care Ore Mixer Name Role Phone Ana Joseph Attending Unavailable Results BACTERIAL VAGINOSIS RAPID TE ST - Collect Date/Time: 07/31/2022 17:20 [facility] ID: [id number] [address] [place], [place], [phone] LOINC: 6410-5 Test Value Unit Reference Range Code Code System Flag BACTERIAL VAGINOSIS NEGATIVE NORMAL: NEGATIVE CULTURE YEAST, WITH IDENTIFI CATION - Collect Date/Time: 07/31/2022 17:19 [facility] ID: [id number] [address] [place], [place], [phone] LOINC: 5048-4 Test Value Unit Reference Range Code Code System Flag SOURCE: VAGINAL STATUS: FINAL ISOLATE 1: Margoth albicans A CULTURE: Culture in progress TRICHOMONAS VAGINALIS FEMALE RNA QUAL - Collect Date/Time: 07/31/2022 17:19 [facility] ID: [id number] [address] [place], [place], [id number] LOINC: 94737-7 Test Value Unit Reference Range Code Code System Flag TRICHOMONAS VAGINALISRNA, QL TMA NOT DETECTED NOT DETECTED CHLAMYDIA/GC URINE RNA, TMA APTIMA - Collect Date/Time: 07/31/2022 17:19 [facility] ID: [id number] [address] [place], [place], [phone] LOINC: 5048-4 Test Value Unit Reference Range Code Code System Flag CHLAMYDIA TRACHOMATISRNA, TMA, UROGENITAL NOT DETECTED NOT DETECTED NEISSERIA GONORRHOEAERNA, TMA, UROGENITAL NOT DETECTED NOT DETECTED Social History Type Status Start Date End Date Code Code Syst em Smoking History Never smoker (Never Smoked) 980943013 SNOMED CT Sex Female Sexual Orientation Straight or Heterosexual 40116168 SNOMED CT Gender Identity Female [id number] Medications Medication Start Date End Date Route Frequency Dose Code Code System Medication Instructions Home Meds Anel-28 30MCG-0.15MG-NA Oral Tablet 06/07/2022 09/12/2022 By Mouth Daily 1 TABLET 600422 RxNorm 1 TABLET By Mouth Daily Diflucan [...] 02/20/2023 By Mouth As Directed 1 PACK 572023 RxNorm 1 PACK By Mouth As Directed Methocarbamol 750MG Oral Tablet 12/25/2022 03/12/2023 By Mouth As needed every 8 hr 392938 RxNorm 1-2 TABLET By Mouth As needed every 8 hr [place]-28 30 MCG-0.15 MG; NA Oral Tablet 12/25/2022 03/12/2023 By Mouth Daily 1 TABLET 282302 RxNorm 1 TABLET By Mouth Daily Macrobid 100MG Oral Capsule 02/20/2023 03/12/2023 By mouth Twice a day 1 TABLET 811206 RxNorm 1 TABLET By mouth Twice a day X 7 DAYS Pyridium 100MG Oral Tablet 02/20/2023 03/12/2023 By mouth As needed every 8 hr 1 TABLET 1435940 RxNorm 1 TABLET By mouth As needed every 8 hr for urinary pain ZyrTEC Allergy 10MG Oral Capsule, Liquid Filled 03/12/2023 Unknown By Mouth Daily 1 CAPSULE 8228925 RxNorm 1 CAPSULE By Mouth Daily Fluticasone 0.05MG/1Actuatio n Nasal [place] 03/12/2023 Unknown Nasal Daily 1 Sprays 2441287 RxNorm 1 Spra ys Nasal Daily Azithromycin 500MG Oral Tablet 06/04/2024 Unknown By Mouth x1 NOW 2 TABLET 338735 RxNorm 2 TABLET By Mouth x1 NOW [...] Status Code Code System SEASONAL ALLERGY active 244501052 SNO MED-CT FAMILY PLANNING 06/20/2020 active 880720115 SNO MED-CT BITE OF INSECT active 000638573 SNOME D-CT MARGOTH OF VAGINA 08/07/2022 active 15017896 S NOMED-CT MENORRHAGIA active 821074249 SNOMED-C T PAINFUL NECK active 55246905 SNOMED- CT ADHD OF CHILDHOOD 07/22/2019 resolved 650755033 S NOMED-CT SEASONAL NASAL ALLERGY 07/22/2019 resolved 355444 001 SNOMED-CT HISTORY OF [place] 07/22/2019 resolved 6741891 08 SNOMED-CT Allergies and Adverse Reactions Allergy Substance Reaction Severity Start Date Concern Status Co de Code System Active No Known Drug Allergies Active 080057607 SNOMED-CT Plan of Treatment Description Due Date Details Instructions DEPRESSION SCREENING DUE 06/20/2021 Encounters Encounter Diagnosis Start Date Code Code Sys tem Noninflammatory disorder of the vagina 07/31/2022 22 343963 SNOMED-CT Personal Care Team Section
--- OUTSIDE RECORDS SUMMARY | 2025-05-22 10:25 | XMS_ITS ---
Author Organization Unknown Address [address] [place] [phone] Phone Care Team Providers Care Sound Mixer Name Role Phone ATIYA Lezama MD Attending [...] em Smoking History Never smoker (Never Smoked) 977146535 SNOMED CT Sex Female Sexual Orientation Straight or Heterosexual 63093950 SNOMED CT Gender Identity Female [id number] Medications Medication Start Date End Date Route Frequency Dose Code Code System Medication Instructions Home Meds ZyrTEC Allergy 10MG Oral Capsule, Liquid Filled 03/12/2023 Unknown By Mouth Daily 1 CAPSULE 5109069 RxNorm 1 CAPSULE By Mouth Daily Fluticasone 0.05MG/1Actuatio n Nasal [place] 03/12/2023 Unknown Nasal Daily 1 Sprays 4597594 RxNorm 1 Spra ys Nasal Daily Azithromycin 500MG Oral Tablet 06/04/2024 Unknown By Mouth x1 NOW 2 TABLET 684440 RxNorm 2 TABLET By Mouth x1 NOW [...] Status Code Code System SEASONAL ALLERGY active 560374756 SNO MED-CT FAMILY PLANNING 06/20/2020 active 001037168 SNO MED-CT BITE OF INSECT active 346857768 SNOME D-CT ES OF VAGINA 08/07/2022 active 78166975 S NOMED-CT MENORRHAGIA active 998587424 SNOMED-C T PAINFUL NECK active 85604600 SNOMED- CT ADHD OF CHILDHOOD 07/22/2019 resolved 186754790 S NOMED-CT SEASONAL NASAL ALLERGY 07/22/2019 resolved 255412 001 SNOMED-CT HISTORY OF [place] 07/22/2019 resolved 4721424 08 SNOMED-CT Allergies and Adverse Reactions Allergy Substance Reaction Severity Start Date Concern Status Co de Code System Active No Known Drug Allergies Active 730763126 SNOMED-CT Plan of Treatment Description Due Date Details Instructions DEPRESSION SCREENING DUE 06/20/2021 Personal Care Team Section
--- OUTSIDE RECORDS SUMMARY | 2025-05-22 10:25 | XMS_ITS ---
Author Organization Unknown Address [address] [place] [phone] Phone Care Team Providers Care Organic Lab Worker Name Role Phone ATIYA Lezama MD Attending [...] em Smoking History Never smoker (Never Smoked) 685211328 SNOMED CT Sex Female Sexual Orientation Straight or Heterosexual 16636032 SNOMED CT Gender Identity Female [id number] Medications Medication Start Date End Date Route Frequency Dose Code Code System Medication Instructions Home Meds Radha 28 3MG-0.02MG Oral Tablet 09/12/2022 12/25/2022 By Mouth Once a day 1 TABLET RxNorm 1 TABLET By Mouth Once a day Medrol Dosepak 4MG Oral Tablet 12/25/2022 02/20/2023 By Mouth As Directed 1 PACK 292292 RxNorm 1 PACK By Mouth As Directed Methocarbamol 750MG Oral Tablet 12/25/2022 03/12/2023 By Mouth As needed every 8 hr 755455 RxNorm 1-2 TABLET By Mouth As needed every 8 hr Anel-28 30 MCG-0.15 MG; NA Oral Tablet 12/25/2022 03/12/2023 By Mouth Daily 1 TABLET 075613 RxNorm 1 TABLET By Mouth Daily Macrobid 100MG Oral Capsule 02/20/2023 03/12/2023 By mouth Twice a day 1 TABLET 454076 RxNorm 1 TABLET By mouth Twice a day X 7 DAYS Pyridium 100MG Oral Tablet 02/20/2023 03/12/2023 By mouth As needed every 8 hr 1 TABLET 5886382 RxNorm 1 TABLET By mouth As needed every 8 hr for urinary pain ZyrTEC Allergy 10MG Oral Capsule, Liquid Filled 03/12/2023 Unknown By Mouth Daily 1 CAPSULE 6431837 RxNorm 1 CAPSULE By Mouth Daily Fluticasone 0.05MG/1Actuati on Nasal [place] 03/12/2023 Unknown Nasal Daily 1 Sprays 5065605 RxNorm 1 Spr ays Nasal Daily Azithromycin 500MG Oral Tablet 06/04/2024 Unknown By Mouth x1 NOW 2 TABLET 631510 RxNorm 2 TABLET By Mouth x1 NOW [...] Status Code Code System SEASONAL ALLERGY active 695990978 SNO MED-CT FAMILY PLANNING 06/20/2020 active 201405787 SNO MED-CT BITE OF INSECT active 211344444 SNOME D-CT ES OF VAGINA 08/07/2022 active 19292633 S NOMED-CT MENORRHAGIA active 978145534 SNOMED-C T PAINFUL NECK active 89031475 SNOMED- CT ADHD OF CHILDHOOD 07/22/2019 resolved 364480706 S NOMED-CT SEASONAL NASAL ALLERGY 07/22/2019 resolved 355503 001 SNOMED-CT HISTORY OF [place] 07/22/2019 resolved 8359261 08 SNOMED-CT Allergies and Adverse Reactions Allergy Substance Reaction Severity Start Date Concern Status Co de Code System Active No Known Drug Allergies Active 315259084 SNOMED-CT Plan of Treatment Description Due Date Details Instructions DEPRESSION SCREENING DUE 06/20/2021 Personal Care Team Section
--- OUTSIDE RECORDS SUMMARY | 2025-05-22 10:25 | XMS_ITS ---
Author Organization Unknown Address [address] [place] [phone] Phone Care Team Providers Care Shipping Clerk/Admin Name Role Phone Blanco Gallego Attending Unavailable [...] em Smoking History Never smoker (Never Smoked) 967449400 SNOMED CT Sex Female Sexual Orientation Straight or Heterosexual 09988210 SNOMED CT Gender Identity Female [id number] [phone] Medications Medication Start Date End Date Route Frequency Dose Code Code System Medication Instructions Home Meds ZyrTEC Allergy 10MG Oral Capsule, Liquid Filled 03/12/2023 Unknown By Mouth Daily 1 CAPSULE 2762820 RxNorm 1 CAPSULE By Mouth Daily Fluticasone 0.05MG/1Actuatio n Nasal [place] 03/12/2023 Unknown Nasal Daily 1 Sprays 8632714 RxNorm 1 Spra ys Nasal Daily Azithromycin 500MG Oral Tablet 06/04/2024 Unknown By Mouth x1 NOW 2 TABLET 013952 RxNorm 2 TABLET By Mouth x1 NOW [...] Status Code Code System SEASONAL ALLERGY active 573551903 SNO MED-CT FAMILY PLANNING 06/20/2020 active 723404000 SNO MED-CT BITE OF INSECT active 799524651 SNOME D-CT ES OF VAGINA 08/07/2022 active 29455770 S NOMED-CT MENORRHAGIA active 743540762 SNOMED-C T PAINFUL NECK active 58992430 SNOMED- CT ADHD OF CHILDHOOD 07/22/2019 resolved 680415684 S NOMED-CT SEASONAL NASAL ALLERGY 07/22/2019 resolved 132492 001 SNOMED-CT HISTORY OF [place] 07/22/2019 resolved 0455484 08 SNOMED-CT Allergies and Adverse Reactions Allergy Substance Reaction Severity Start Date Concern Status Co de Code System Active No Known Drug Allergies Active 611743149 SNOMED-CT Plan of Treatment Description Due Date Details Instructions DEPRESSION SCREENING DUE 06/20/2021 Personal Care Team Section
--- OUTSIDE RECORDS SUMMARY | 2025-05-22 10:25 | XMS_ITS ---
Author Organization Unknown Address [address] [place] [phone] Phone Care Team Providers Care Plug Cutting Machine Operator Name Role Phone TABATHA RODGERS Attending Unavailable [...] em Smoking History Never smoker (Never Smoked) 031470711 SNOMED CT Sex Female Sexual Orientation Straight or Heterosexual 48094915 SNOMED CT Gender Identity Female [id number] [address] Medications Medication Start Date End Date Route Frequency Dose Code Code System Medication Instructions Home Meds predniSONE 50MG Oral Tablet 06/07/2022 07/31/2022 By Mouth Daily 1 TABLET 929096 RxNorm 1 TABLET By Mouth Daily Anel-28 30MCG-0.15MG-NA Oral Tablet 06/07/2022 09/12/2022 By Mouth Daily 1 TABLET 390356 RxNorm 1 TABLET By Mouth Daily Diflucan 150MG Oral Tablet 08/07/2022 09/12/2022 By Mouth x1 NOW 1 TABLET 584394 RxNorm 1 TABLET By Mouth x1 NOW FOR MARCH REPEAT IN 72 HOURS Radha 28 3MG-0.02MG Oral Tablet 09/12/2022 12/25/2022 By Mouth Once a day 1 TABLET RxNorm 1 TABLET By Mouth Once a day Medrol Dosepak 4MG Oral Tablet 12/25/2022 02/20/2023 By Mouth As Directed 1 PACK 156932 RxNorm 1 PACK By Mouth As Directed Methocarbamol 750MG Oral Tablet 12/25/2022 03/12/2023 By Mouth As needed every 8 hr 439359 RxNorm 1-2 TABLET By Mouth As needed every 8 hr Anel-28 30 MCG-0.15 MG; NA Oral Tablet 12/25/2022 03/12/2023 By Mouth Daily 1 TABLET 094390 RxNorm 1 TABLET By Mouth Daily Macrobid 100MG Oral Capsule 02/20/2023 03/12/2023 By mouth Twice a day 1 TABLET 222263 RxNorm 1 TABLET By mouth Twice a day X 7 DAYS Pyridium 100MG Oral Tablet 02/20/2023 03/12/2023 By mouth As needed every 8 hr 1 TABLET 3629071 RxNorm 1 TABLET By mouth As needed every 8 hr for urinary pain ZyrTEC Allergy 10MG Oral Capsule, Liquid Filled 03/12/2023 Unknown By Mouth Daily 1 CAPSULE 3342705 RxNorm 1 CAPSULE By Mouth Daily Fluticasone 0.05MG/1Actuati on Nasal [place] 03/12/2023 Unknown Nasal Daily 1 Sprays 9579487 RxNorm 1 Spr ays Nasal Daily Azithromycin 500MG Oral Tablet 06/04/2024 Unknown By Mouth x1 NOW 2 TABLET 530752 RxNorm 2 TABLET By Mouth x1 NOW [...] Status Code Code System SEASONAL ALLERGY active 230973569 SNO MED-CT FAMILY PLANNING 06/20/2020 active 819494908 SNO MED-CT BITE OF INSECT active 231033891 SNOME D-CT ES OF VAGINA 08/07/2022 active 92948742 S NOMED-CT MENORRHAGIA active 340729895 SNOMED-C T PAINFUL NECK active 57139880 SNOMED- CT ADHD OF CHILDHOOD 07/22/2019 resolved 592457732 S NOMED-CT SEASONAL NASAL ALLERGY 07/22/2019 resolved 833787 001 SNOMED-CT HISTORY OF [place] 07/22/2019 resolved 2251934 08 SNOMED-CT Allergies and Adverse Reactions Allergy Substance Reaction Severity Start Date Concern Status Co de Code System Active No Known Drug Allergies Active 580823703 SNOMED-CT Plan of Treatment Description Due Date Details Instructions DEPRESSION SCREENING DUE 06/20/2021 Personal Care Team Section
--- OUTSIDE RECORDS SUMMARY | 2025-05-22 10:25 | XMS_ITS ---
Author Organization Unknown Address [address] [place] [phone] Phone Care Team Providers Care Institutional Cook Name Role Phone TABATHA RODGERS Attending Unavailable [...] MICR O - Collect Date/Time: 07/31/2022 17:14 [facility] ID: [id number] [address] [place] [address], [phone] LOINC: Test Value Unit Reference Range Code [...] TEST - Colle ct Date/Time: 07/31/2022 17:12 [facility] ID: [id number] [address] [place] [address], [phone] LOINC: Test Value Unit Reference Range Code Code System Flag TEST PERFORMED URINE PREG (URINE) NEGATIVE LOT#: [id number] EXP DATE: 2023-10-10 QC: ACCEPTABLE Social History Type Status Start Date End Date Code Code Syst em Smoking History Never smoker (Never Smoked) 911068965 SNOMED CT Sex Female Sexual Orientation Straight or Heterosexual 23522574 SNOMED CT Gender Identity Female [id number] [address] Vital Signs Vital Sign Value Unit [place]ceana Value Oceana Unit Date/Time Recent/Initial? Code Code System Body Mass Index 23.34 kg/m2 07/31/2022 16:59 Initial 72113 -5 LOINC Body Mass Index Percentile 71 % 07/31/2022 16:59 Initial 10597 -9 LOINC Systolic Blood Pressure 120 mm[Hg] 07/31/2022 16:59 Initial 8480- 6 LOINC Diastolic Blood Pressure 80 mm[Hg] 07/31/2022 16:59 Initial 8462- 4 [facility] Body Surface Area 1.79 m2 07/31/2022 16:59 Initial 3140- 1 INC Height 170.180 0 cm 67.00 in 07/31/2022 16:59 Initial 8302- 2 [facility] O2 Saturation 98 % 2021 16:59 Initial 81937 -5 [facility] Pulse 92.0 /min 07/31/2022 16:59 Initial 8867- 4 [facility] Temperature 36.8 Antonella 98.2 F 07/31/20 16:59 Initial 8310- 5 [facility] Weight 67.59 kg 149.00 lbs 07/31/2022 16:59 Initial 82872 -7 [facility] Medications Medication Start Date End Date Route Frequency Dose Code Code System Medication Instructions Home Meds predniSONE 50MG Oral Tablet 06/07/2022 07/31/2022 By Mouth Daily 1 TABLET 542266 RxNorm 1 TABLET By Mouth Daily Anel-28 30MCG-0.15MG-NA Oral Tablet 06/07/2022 09/12/2022 By Mouth Daily 1 TABLET 959528 RxNorm 1 TABLET By Mouth Daily Diflucan [...] 02/20/2023 By Mouth As Directed 1 PACK 542830 RxNorm 1 PACK By Mouth As Directed Methocarbamol 750MG Oral Tablet 12/25/2022 03/12/2023 By Mouth As needed every 8 hr 653760 RxNorm 1-2 TABLET By Mouth As needed every 8 hr Anel-28 30 MCG-0.15 MG; NA Oral Tablet 12/25/2022 03/12/2023 By Mouth Daily 1 TABLET 342720 RxNorm 1 TABLET By Mouth Daily Macrobid 100MG Oral Capsule 02/20/2023 03/12/2023 By mouth Twice a day 1 TABLET 727940 RxNorm 1 TABLET By mouth Twice a day X 7 DAYS Pyridium 100MG Oral Tablet 02/20/2023 03/12/2023 By mouth As needed every 8 hr 1 TABLET 8602797 RxNorm 1 TABLET By mouth As needed every 8 hr for urinary pain ZyrTEC Allergy 10MG Oral Capsule, Liquid Filled 03/12/2023 Unknown By Mouth Daily 1 CAPSULE 5977796 RxNorm 1 CAPSULE By Mouth Daily Fluticasone 0.05MG/1Actuati on Nasal [place] 03/12/2023 Unknown Nasal Daily 1 Sprays 1888675 RxNorm 1 Spr ays Nasal Daily Azithromycin 500MG Oral Tablet 06/04/2024 Unknown By Mouth x1 NOW 2 TABLET 130559 RxNorm 2 TABLET By Mouth x1 NOW [...] Status Code Code System SEASONAL ALLERGY active 150053364 SNO MED-CT FAMILY PLANNING 06/20/2020 active 643152830 SNO MED-CT BITE OF INSECT active 187262776 SNOME D-CT ES OF VAGINA 08/07/2022 active 29578872 S NOMED-CT MENORRHAGIA active 154786510 SNOMED-C T PAINFUL NECK active 29861697 SNOMED- CT ADHD OF CHILDHOOD 07/22/2019 resolved 357476140 S NOMED-CT SEASONAL NASAL ALLERGY 07/22/2019 resolved 384596 001 SNOMED-CT HISTORY OF [place] 07/22/2019 resolved 5431677 08 SNOMED-CT Allergies and Adverse Reactions Allergy Substance Reaction Severity Start Date Concern Status Co de Code System Active No Known Drug Allergies Active 330123813 SNOMED-CT Plan of Treatment Description Due Date Details Instructions DEPRESSION SCREENING DUE 06/20/2021 Future Order Description Future Order Date Futu re Order Loinc: BACTERIAL VAGINOSIS RAPID TEST 07/31/2022 LOINC: 6410-5 CULTURE YEAST, WITH IDENTIFICATION 07/31/2022 LOINC: 85131-8 TRICHOMONAS VAGINALIS FEMALE RNA QUAL LOINC: 39999-6 CHLAMYDIA/GC URINE RNA, TMA APTIMA 07/31/2022 LOINC: 5048-4 CULTURE URINE 07/31/2022 LOINC: 630-4 Encounters Encounter Diagnosis Start Date Code Code Sys tem Acute vaginitis 07/31/2022 62260584 SNOMED-CT Personal Care Team Section Progress Notes [facility] 07/31/2022 18:10 Admission Date/Time: 07/31/2022 16:21 Convenient [...] NEGATIVE 07/31/2022 17:10 07/31/2022 17:12 final LOT#: [id number] 07/31/2022 17:10 07/31/2022 17:12 final EXP DATE: [...]
--- OUTSIDE RECORDS SUMMARY | 2025-05-22 10:25 | XMS_ITS ---
Author Organization Unknown Address [address] [place] [phone] Phone Care Team Providers Care Cellophane Press Operator Name Role Phone Blanco Gallego Attending [...] em Smoking History Never smoker (Never Smoked) 352766733 SNOMED CT Sex Female Sexual Orientation Straight or Heterosexual 76113346 SNOMED CT Gender Identity Female [id number] [address] Vital Signs Vital Sign Value Unit Hannah Value Hannah Unit Date/Time Recent/Initial? Code Code System Body Mass Index 23.87 kg/m2 12/25/2022 13:33 Initial 89783 -5 [facility] Body Mass Index Percentile 74 % 12/25/2022 13:33 Initial 19123 -9 [facility] Systolic Blood Pressure 106 mm[Hg] 12/25/2022 13:33 Initial 8480- 6 [facility] Diastolic Blood Pressure 72 mm[Hg] 12/25/2022 13:33 Initial 8462- 4 [facility] Body Surface Area 1.85 m2 12/25/2022 13:33 Initial 3140- 1 [facility] Height 172.720 0 cm 68.00 in 12/25/2022 13:33 Initial 8302- 2 [facility] O2 Saturation 100 % 2022 13:33 Initial 26530 -5 [facility] Pulse 82.0 /min 12/25/2022 13:33 Initial 8867- 4 [facility] Respiration 16 /min 12/25/19 13:33 Initial 9279- 1 [facility] Temperature 37.0 Antonella 98.6 F 12/25/19 13:33 Initial 8310- 5 [facility] Weight 71.21 kg 157.00 lbs 12/25/2022 13:33 Initial 26489 -7 [facility] Medications Medication Start Date End Date Route Frequency Dose Code Code System Medication Instructions Home Meds Radha 28 3MG-0.02MG Oral Tablet 09/12/2022 12/25/2022 By Mouth Once a day 1 TABLET RxNorm 1 TABLET By Mouth Once a day Medrol Dosepak 4MG Oral Tablet 12/25/2022 02/20/2023 By Mouth As Directed 1 PACK 578210 RxNorm 1 PACK By Mouth As Directed Methocarbamol 750MG Oral Tablet 12/25/2022 03/12/2023 By Mouth As needed every 8 hr 285274 RxNorm 1-2 TABLET By Mouth As needed every 8 hr Anel-28 30 MCG-0.15 MG; NA Oral Tablet 12/25/2022 03/12/2023 By Mouth Daily 1 TABLET 615802 RxNorm 1 TABLET By Mouth Daily Macrobid 100MG Oral Capsule 02/20/2023 03/12/2023 By mouth Twice a day 1 TABLET 158719 RxNorm 1 TABLET By mouth Twice a day X 7 DAYS Pyridium 100MG Oral Tablet 02/20/2023 03/12/2023 By mouth As needed every 8 hr 1 TABLET 8450337 RxNorm 1 TABLET By mouth As needed every 8 hr for urinary pain ZyrTEC Allergy 10MG Oral Capsule, Liquid Filled 03/12/2023 Unknown By Mouth Daily 1 CAPSULE 3284961 RxNorm 1 CAPSULE By Mouth Daily Fluticasone 0.05MG/1Actuati on Nasal [place] 03/12/2023 Unknown Nasal Daily 1 Sprays 9021490 RxNorm 1 Spr ays Nasal Daily Azithromycin 500MG Oral Tablet 06/04/2024 Unknown By Mouth x1 NOW 2 TABLET 163294 RxNorm 2 TABLET By Mouth x1 NOW Assessment You had the following problems:SEASONAL ALLERGYFAMILY PLANNINGBITE OF INSECTCANDIDA OF VAGINAMENORRHAGIAPAINFUL NECK Assessment/Plan: 1. Left upper back pain - Start steroids and muscle relaxer. Patient denies need for school note. 2. Contraceptive management - Patient requesting to restart [place], will restart at this time Return to clinic [facility] Discharge Instructions Should you have any questions prior to discharge, please contact a member of your healthcare team. If you have left the hospital and have any questions, please contact your primary care physician. Reason For Referral No Data Found Problems Problem Start Date Resolved Date Status Code Code System SEASONAL ALLERGY active 507255357 SNO MED-CT FAMILY PLANNING 06/20/2020 active 785612738 SNO MED-CT BITE OF INSECT active 033733303 SNOME D-CT ES OF VAGINA 08/07/2022 active 30815751 S NOMED-CT MENORRHAGIA active 036227455 SNOMED-C T PAINFUL NECK active 45301258 SNOMED- CT ADHD OF CHILDHOOD 07/22/2019 resolved 572908918 S NOMED-CT SEASONAL NASAL ALLERGY 07/22/2019 resolved 502541 001 SNOMED-CT HISTORY OF [place] 07/22/2019 resolved 0066406 08 SNOMED-CT Allergies and Adverse Reactions Allergy Substance Reaction Severity Start Date Concern Status Co de Code System Active No Known Drug Allergies Active 613250794 SNOMED-CT Plan of Treatment Description Due Date Details Instructions DEPRESSION SCREENING DUE 06/20/2021 Encounters Encounter Diagnosis Start Date Code Code Sys tem Pain in thoracic spine 12/25/2022 963665502 SNOME D-CT Personal Care Team Section Progress Notes [facility] 12/25/2022 13:54 Admission Date/Time: 12/25/2022 13:07 [facility] Visit Note Chief Complaint: [facility] F/U UPPER BACK PAIN/BY NECK SWOLLEN [...] is an 17 yo female presents to [facility] today for [facility] follow up neck and back pain. Pt states she went to [facility] on 12-18-22 with neck and upper back pain. States it just started hurting her while at work, denies injury to the areas. States no xrays were done at ER and was given Rx for steroids that she did not pick up man. States she has been taking warm baths [...] Referring and communicating with other health child caregiver x Obtaining and/or reviewing separately obtained history Independent interpretation of results and communicating results to the patient/family/caregiver x Performing a medically appropriate examination/evaluation Care coordination (not reported separately) Ordered & Completed Meds Table: No Current Medications Available Discharge Med List: Discharge Medications: No Discharge Medications Available
--- NOTE | 2025-05-22 10:27 | ED_ITS ---
HPI - General Adult General Chief complaint: Abdominal Pain Stated complaint: epigastric pain, ?gas pain Time Seen by Provider: 05/22/25 10:12 History of Present Illness HPI narrative: This is a 19-year-old female presenting epigastric pain. Patient is 4 months . Since she has delivered her child she has been episodes sharp/tight epigastric pain that radiates around her sides and into her back happen several times a month. It can last for minutes to hours at a time before resolving own. She cannot find any precipitating or alleviating factors. She says that it feels like gas pains but is very severe. Does not appear to be related to food. She did have 1 episode of nausea and vomiting today. She denies fevers chills chest pain breathing or urinary symptoms. Her child is doing well. Related Data Home Medications ?Medication ?Instructions ?Recorded ?Confirmed ?Last Taken ?Type vit no.95-ferrous 1 tablet PO DAILY 01/22/25 01/22/25 01/21/25 History fumarate 28 mg-folic acid 800 mcg tablet () Allergies Allergy/AdvReac Type Severity Reaction Status Date / Time No Known Allergies Allergy Verified 05/22/25 10:23 [facility], [facility] Family History Family History Other No pertinent family history in first degree relatives Social History Social History Smoking status: Former smoker Tobacco type: e-cigarettes/vaping Second hand tobacco smoke exposure: Yes Substance use: never Do You Feel Safe in your Home?: Yes Lack of Transportation: No Lack of Food: Never True Current Housing: I Have Housing Concerned About Future Housing: No Difficulty Paying Gas/Electric Bills: No Difficulty Paying for Meds: No Currently Unemployed: No Education: High School Diploma/GED Difficulty w/ Childcare or Family Care: No Spiritual care concerns: No Exam 2 Narrative: APPEARANCE: No apparent distress. Head: atraumatic. EYES: EOMI, NOSE: Atraumatic NECK: Trachea midline RESPIRATORY: No increased rate of breathing clear to auscultation CARDIOVASCULAR: RRR, ABDOMINAL: Tenderness to palpation in the right upper quadrant with voluntary guarding. No tenderness in the rest abdomen. No CVA tenderness MUSCULOSKELETAl: No obvious deformities NEURO: Alert. Moving 02/12 extremities SKIN:: Warm, dry. Normal color PSYCHIATRIC: Normal affect Course Vital Signs Vital signs: Vital Signs Pulse Rate 77 05/22/25 10:16 Respiratory Rate 14 05/22/25 10:16 Blood Pressure 139/84 05/22/25 10:16 Pulse Oximetry 99 05/22/25 10:16 Temperature 97.6 F 05/22/25 10:20 Pulse Rate 79 05/22/25 12:08 Respiratory Rate 18 05/22/25 12:08 Blood Pressure 136/70 05/22/25 12:08 Pulse Oximetry 100 05/22/25 12:08 Oxygen Delivery Room Air 05/22/25 10:20 Medical Decision Making MDM Narrative Medical decision making narrative: -Course: 19-year-old female presenting with epigastric vital signs are stable. On exam she is more tender in the right upper quadrant. Patient given fluid resuscitation pain meds and antiemetics. CT showed periportal edema which is nonspecific. Right upper quadrant ultrasound showed gallstones in the gallbladder. Re-evaluation patient's pain is completely resolved. Her laboratory studies are within normal limits. Pain possibly due to biliary colic versus gas pains. Patient educated on low-fat diet. Patient be discharged with surgery follow-up. Given return precautions. -DDX includes but is not limited to: Gastritis, peptic ulcer disease, biliary colic, pancreatitis Vital Signs Vital Signs: Vital Signs Pulse Rate 77 05/22/25 10:16 Respiratory Rate 14 05/22/25 10:16 Blood Pressure 139/84 05/22/25 10:16 Pulse Oximetry 99 05/22/25 10:16 Temperature 97.6 F 05/22/25 10:20 Pulse Rate 79 05/22/25 12:08 Respiratory Rate 18 05/22/25 12:08 Blood Pressure 136/70 05/22/25 12:08 Pulse Oximetry 100 05/22/25 12:08 Oxygen Delivery Room Air 05/22/25 10:20 Lab Data 05/22/25 10:34 05/22/25 10:34 Labs: Lab Results 05/22/25 05/22/25 Range/Units 10:34 10:39 WBC 6.7 (4.5-10.0) K/mm3 RBC 4.49 (4.2-5.4) M/mm3 Hgb 13.5 (12.0-15.0) g/dL Hct 39.6 (37.0-47.0) % MCV 88.2 (80-100) fl MCH 30.1 (26-34) pg MCHC 34.1 (32-36) g/dl RDW 13.0 (11.5-14.5) % Plt Count 247 (150-375) k/mm3 MPV 9.9 (7.4-10.4) fl Immature Gran % (Auto) 0.4 (0-0.5) % Neut % (Auto) 60.7 (45.5-73.1) % Lymph % (Auto) 29.5 (18.3-44.2) % Schuyler % (Auto) 7.3 (2.6-8.5) % Eos % (Auto) 1.5 (0-4.4) % Baso % (Auto) 0.6 (0.2-1.2) % Lymph # (Auto) 1.99 (0.9-3.2) K/mm3 Schuyler # (Auto) 0.5 (0.1-0.6) K/mm3 Eos # (Auto) 0.1 (0-0.3) K/mm3 Baso # (Auto) 0.0 (0.0-0.1) K/mm3 Abs Immat Gran (auto) 0.03 (0.00-0.031) K/mm3 Absolute Neuts (auto) 4.1 (1.3-6.7) K/mm3 Absolute Nucleated RBC 0.000 (0.0-0.012) K/mm3 Nucleated RBC % 0.0 (0.0-0.2) % Sodium 140 (137-145) mmol/L Potassium 3.5 (3.4-5.0) mmol/L Chloride 107 (98-107) mmol/L Carbon Dioxide 21 L (22-30) mmol/L Anion Gap 12 (4-12) mmol/L BUN 12 (7-17) mg/dL Creatinine 0.71 (0.7-1.0) mg/dL Estim Creat Clear Calc 106 ml/min Estimated GFR > 60 (59 - ) Glucose 102 (65-110) mg/dL Calcium 9.5 (8.4-10.2) mg/dL Total Bilirubin 0.4 (0.2-1.3) mg/dL AST 35 (14-36) U/L ALT 27 (6-35) U/L Alkaline Phosphatase 62 (38-126) U/L Total Protein 7.8 (6.3-8.2) g/dL Albumin 4.4 (3.5-5.1) g/dL Lipase 67 (23-300) U/L Urine Color Yellow (Yellow) Urine Appearance Clear (Clear) Urine pH 6.0 (5.0-9.0) Ur Specific [place] 1.023 (1.001-1.035) Urine Protein Negative (Negative) mg/dL Urine Glucose (UA) Negative (Negative) mg/dL Urine Ketones Negative (Negative) mg/dL Ur Blood (Man) Negative (Negative) Urine Nitrate Negative (Negative) Urine Bilirubin Negative (Negative) Urine Urobilinogen 0.2 (<2.0) mg/dL Leukocyte Esterase Rfl Negative (Negative) LYNNE/UL POC Urine HCG, Qual Negative (Negative) Discharge Plan Discharge Clinical Impression: Biliary colic Patient Disposition: Home Condition: Stable Instructions: Antibiotic Form, Biliary Colic (ED) Additional Instructions: Using emergency department for abdominal pain. This may be related to biliary colic. Please eat a low-fat diet. Please use Motrin Tylenol for pain control. Please follow-up with the general surgeon listed below further workup. If you develop fevers, severe abdominal pain, or persistent nausea/vomiting return to ED for re-evaluation. Patient Language: Swedish Prescriptions: No Action PNV no.95-ferrous fumarate-FA [] 28 mg iron- 800 mcg tablet 1 tablet PO DAILY Follow-up/Referrals: Jaci Iniguez MD [Physician] - 1 Week (Biliary colic) PHYSICIAN,HEAD INSULATION BOARD SAW OPERATOR [Primary Care Provider] -
[2025-05-22 10:40] LABS: BEDSIDEPREGUCG Negative (Negative)
[2025-05-22 10:41] LABS: Hematocrit 39.6 % (37.0-47.0); Hemoglobin 13.5 g/dL (12.0-15.0); Immature Granulocyte Percent A 0.4 % (0-0.5); Lymphocytes Absolute Auto 1.99 K/mm3 (0.9-3.2); Mean Corpuscular HGB Conc 34.1 g/dl (32-36); Mean Corpuscular Hemoglobin 30.1 pg (26-34); Mean Corpuscular Volume 88.2 fl (80-100); Nucleated Red Blood Cells Absolute Auto 0.000 K/mm3 (0.0-0.012); Nucleated Red Blood Cells Perc 0.0 % (0.0-0.2); Platelet Count Result 247 k/mm3 (150-375); Red Blood Count 4.49 M/mm3 (4.2-5.4); White Blood Count 6.7 K/mm3 (4.5-10.0)
[2025-05-22] MEDS: SODIUM CHLORIDE 0.9% IV 2,000 ML 999 ML IV CONT (10:45)
[2025-05-22] MEDS: FAMOTIDINE 20 MG/2 ML VIAL IV PUSH (10:45)
[2025-05-22 10:46] LABS: Add Urine Microscopic? NO; Appearance Urine Clear (Clear); Glucose Urine UA Negative (Negative); Leukocyte Esterase Ur Negative LEU/UL (Negative); Nitrate Urine Negative (Negative); Specific Grav Ur 1.023 (1.001-1.035)
[2025-05-22 11:02] LABS: Alanine Aminotransferase 27 U/L (6-35); Albumin Level 4.4 g/dL (3.5-5.1); Alkaline Phosphatase 62 U/L (38-126); Anion Gap 12 mmol/L (4-12); Aspartate Amino Transferase 35 U/L (14-36); Bilirubin,Total 0.4 mg/dL (0.2-1.3); Blood Urea Nitrogen 12 mg/dL (7-17); Calcium 9.5 mg/dL (8.4-10.2); Carbon Dioxide 21 mmol/L (22-30); Chloride 107 mmol/L (98-107); Estimated CRCL calculation 106 ml/min; Estimated Glomerular Filt Rate > 60; Glucose 102 mg/dL (65-110); Lipase 67 U/L (23-300); Potassium 3.5 mmol/L (3.4-5.0); Sodium 140 mmol/L (137-145); Total Protein 7.8 g/dL (6.3-8.2)
[2025-05-22 12:08] VITALS: BP 136/70; PULSE 79; RESP 18; O2SAT 100
[2025-05-22 12:58] VITALS: BP 123/67; PULSE 68; RESP 14; O2SAT 98
== END 2025-05-22 12:59 | disposition home or self-care (01) ==
PROVIDERS: Emergency Provider Emergency Medicine
DX: K80.20 Calculus of gallbladder without cholecystitis without obstruction (principal); Z87.891 Personal history of nicotine dependence; K76.9 Liver disease, unspecified; R94.31 Abnormal electrocardiogram [ECG] [EKG]
CPT/HCPCS: 36415; 74177; 76705; 80053; 81003; 81025; 83690; 85025; 93005; 96361; 96374; 99284; J7030; Q9967

== ENCOUNTER 2025-06-03 00:44 | Day surgery (SDC) | payer OTHER, SELFPAY ==
[2025-06-01 15:33] VITALS: BMI 25.4
--- NOTE | 2025-06-01 15:35 | PC.NURSE ---
Report to the Outpatient Waiting Room, entrance under the green pavilion located off [facility], at time _1pm_ on date _[id number]_. Planned Procedure Time: _3pm_.? Time changes happen often and if your time is changed the preop area will call you the afternoon before. - You and your visitor will be asked to self-screen and do not enter if you have any COVID symptoms. Please call surgeon if you need to reschedule. - A mask is optional within the hospital at this time. Patients may have clear liquids (water, carbonated beverages, clear teas, apple juice) until 3 hours prior to surgery with a maximum of 20 ounces. - No food from midnight until time of surgery and no smoking, or chewing tobacco (or any form of nicotine). No chewing gum, candy or mints. Take only the following medications with a SIP of water on the morning of surgery: ___Breanna DO NOT STOP ANY OF YOUR OTHER PRESCRIPTION MEDICATIONS PRIOR TO SURGERY EXCEPT THE FOLLOWING Hold all vitamins and supplements for 3 days per anesthesiologist. Medications to discontinue per physician Date to take last dose Please no make-up, nail syriac, hairspray, perfume, deodorant, or body powder the day of surgery.? No jewelry (including any body piercings) or valuables the day of surgery, leave them at home.? Please take a shower or bath the night before, or the morning of, surgery with an antibacterial soap.? Wear comfortable, loose fitting clothing. - Jewelry must be removed prior to entering the operating room.? Rings and piercings that are not removed may be cut off. - The hospital will not accept responsibility for valuables.? - Please leave all valuables, including medications, at home the day of surgery. If you are going home after surgery, a licensed hi lo driver must drive you home.? - NO public transportation without another adult if you receive anesthesia. - We recommend that an adult stay with you for 24 hours following discharge. - We also recommend that you do not drive, make important decision, drink alcoholic beverages, or take any drugs that were not prescribed by your health care provider for at least 24 hours after your discharge time. Follow any additional instructions given to you from your surgeon. Telephone instructions given to __Lani___and asked if any additional questions and then verbalized understanding. Patient advised to call surgeon office or pre surgery nurse liaison [phone] if any additional questions.
--- NOTE | 2025-06-01 15:59 | PC.NURSE ---
Report to the Outpatient Waiting Room, entrance under the green pavilion located off [facility], at time _1pm_ on date _[id number]_. Planned Procedure Time: _3pm_.? Time changes happen often and if your time is changed the preop area will call you the afternoon before. - You and your visitor will be asked to self-screen and do not enter if you have any COVID symptoms. Please call surgeon if you need to reschedule. - A mask is optional within the hospital at this time. Patients may have clear liquids (water, carbonated beverages, clear teas, apple juice) until 3 hours prior to surgery with a maximum of 20 ounces. - No food from midnight until time of surgery and no smoking, or chewing tobacco (or any form of nicotine). No chewing gum, candy or mints. Take only the following medications with a SIP of water on the morning of surgery: ___Acetaminophen ok to take if needed for pain. DO NOT STOP ANY OF YOUR OTHER PRESCRIPTION MEDICATIONS PRIOR TO SURGERY EXCEPT THE FOLLOWING Hold all vitamins and supplements for 3 days per anesthesiologist. Medications to discontinue per physician Date to take last dose Please no make-up, nail sao tomean, hairspray, perfume, deodorant, or body powder the day of surgery.? No jewelry (including any body piercings) or valuables the day of surgery, leave them at home.? Please take a shower or bath the night before, or the morning of, surgery with an antibacterial soap.? Wear comfortable, loose fitting clothing. - Jewelry must be removed prior to entering the operating room.? Rings and piercings that are not removed may be cut off. - The hospital will not accept responsibility for valuables.? - Please leave all valuables, including medications, at home the day of surgery. If you are going home after surgery, a licensed semi driver must drive you home.? - NO public transportation without another adult if you receive anesthesia. - We recommend that an adult stay with you for 24 hours following discharge. - We also recommend that you do not drive, make important decision, drink alcoholic beverages, or take any drugs that were not prescribed by your health care provider for at least 24 hours after your discharge time. Follow any additional instructions given to you from your surgeon. Telephone instructions given to ___Breanna__and asked if any additional questions and then verbalized understanding. Patient advised to call surgeon office or pre surgery nurse liaison [phone] if any additional questions.
[2025-06-03] VITALS (9 sets, daily range): BP systolic 113–142; BP diastolic 58–95; PULSE 54–106; RESP 11–20; TEMP 36.1–36.9; O2SAT 99–100; BMI 24.9
--- OUTSIDE RECORDS SUMMARY | 2025-06-03 00:47 | XMS_ITS | Data Portability ---
Author Organization [facility] Address [address] [place] [address] Assessment No assessment recorded. Plan of Treatment Reminders Order Date Submit Date Provider Last Modified By Organization Details Last Modified Time Details Appointments None recorded. Lab None recorded. Referral None recorded. Procedures None recorded. Surgeries None recorded. Imaging None recorded. Medication Orders Medrol (Rex) 4 mg tablets in a dose pack 2022 023 [facility], [facility] [place], [place], [phone], 16:54:18 cyclobenzap rine 5 mg tablet 2022 023 [facility], [facility] [place], [place], [id number], 16:54:27 Patient TargetsNo targets recorded. Patient InstructionsNo instructions recorded. Reason for Referral None Reported. Results Created Date Observation Date Name Description Value Unit Range Abnormal Flag Note LastModifiedBy Organization Detail LastModifiedTime Result Notes None recorded. Problems Name Problem SNOMED Code Status Onset Date Resolution Date Notes Provider Name and Address Organization Details Recorded Time Neck pain 70862576 Active 12/19/19 23 Sarbjit Jenkins [facility] 12/19/2022 16:44:06 Problem Notes None recorded. [...] Address Organization Details Last Updated DateTime 3 73204.5 9 g 75 % 24 kg/m2 172.72 cm 8 17 /min 98.7 [degF] 75 /min 100 % 100 % 120/70 mm[Hg] Analilia Lemon [facility] 16:21:52 Social History Question Answer Notes LastModified by Organizat ion Details LastModified Time Tobacco Smoking Status Never Smoker Analilia Lemon [facility] 12/19/2022 16:19:49 What Is Your Level Of Caffeine Consumption? None [id number] Information not available 12/19/2022 In The 14 Days Before Symptom Onset, Have You Had Close Contact With A Laboratory-confirm ed COVID-19 While That Case Was Ill? No [id number] Information n ot available 12/19/2022 In The 14 Days Before Symptom Onset, Have You Had Close Contact With A Person Who Is Under Investigation For COVID-19 While That Person Was Ill? No [id number] Information not available 12/19/2022 What Was The Date Of Your Most Recent Tobacco Screening? 12/19/2022 [email or web address] Information not available 12/19/2022 Have You Recently Traveled Abroad? No [email or web address] Information not available 12/19/2022 Sex: Unknown Functional Status Question Answer Note LastModified by Organizat ion Details LastModified Time Do you use any illicit or recreational drugs? No [email or web address] Information not available 12/19/2022 Do you or have you ever used any other forms of tobacco or nicotine? Yes [email or web address] Information not available 12/19/2022 What is your level of alcohol consumption? None [email or web address] Information not available 12/19/2022 Do you or have you ever used smokeless tobacco? Never used smokeless tobacco [email or web address] Information not available 12/19/2022 Do you or have you ever used e-cigarettes or vape? Former user of electronic cigarettes quit about 4 months ago [email or web address] Information not available 12/19/2022 Mental Status None recorded. Family History Nothing Reported. Medical History No medical history recorded. Gynecological History Statement/Question Response Date of LMP 12/04/2022 Obstetrics History GPAL:G 0 P 0 0 0 0 Immunizations Vaccine Type Date Status Note Provider Nam e and Address Organization Details Recorded Time Hib, unspecified formulation 5 desiree acosta, [facility] 06/20/2023 14:41:02 Hib, unspecified formulation 5 desiree acosta, [facility] 06/20/2023 14:41:02 Hib, unspecified formulation 5 desiree acosta, [facility] 06/20/2023 14:41:02 HPV9 8 desiree acosta, [facility] 06/20/2023 14:41:02 HPV9 9 desiree acosta, [facility] 06/20/2023 14:41:02 IPV 5 desiree acosta, [facility] 06/20/2023 14:41:02 IPV 5 desiree acosta, [facility] 06/20/2023 14:41:02 MMR 5 desiree acosta, [facility] 06/20/2023 14:41:02 MMR 9 completed Rebecca Lilly null, [facility] 06/20/2023 14:41:02 COVID-19, mRNA, LNP-S, PF, 30 mcg/0.3 mL dose 1 completed Rebecca Lilly null, [facility] 06/20/2023 14:41:02 COVID-19, mRNA, LNP-S, PF, 30 mcg/0.3 mL dose 1 completed Rebecca Lilly null, [facility] 06/20/2023 14:41:02 pneumococcal conjugate PCV 7 5 completed Rebecca Lilly null, [facility] 06/20/2023 14:41:02 pneumococcal conjugate PCV 7 5 completed Rebecca Lilly null, [facility] 06/20/2023 14:41:02 pneumococcal conjugate PCV 7 5 completed Rebecca Lilly null, [facility] 06/20/2023 14:41:02 DTaP-IPV 9 completed Rebecca Lilly null, [facility] 06/20/2023 14:41:02 influenza, unspecified formulation 6 completed Rebecca Lilly null, [facility] 06/20/2023 14:41:02 Tdap 8 completed Rebecca Lilly null, [facility] 06/20/2023 14:41:02 varicella 5 completed Rebecca Lilly null, [facility] 06/20/2023 14:41:02 varicella 9 completed Rebecca Lilly null, [facility] 06/20/2023 14:41:02 influenza, split (incl. purified surface antigen) 0 completed Rebecca Lilly [facility], [facility] 06/20/2023 14:41:02 Hep B, adolescent or pediatric 5 desiree Lilly null, [facility] 06/20/2023 14:41:02 Hep B, adolescent or pediatric 4 completed Rebecca acosta, [facility] 06/20/2023 14:41:02 meningococcal MCV4P 8 desiree Lilly dave, [facility] 06/20/2023 14:41:02 meningococcal MCV4P 0 completed Rebecca Lilly dave, [facility] 06/20/2023 14:41:02 DTaP 5 completed Rebecca Lilly null, [facility] 06/20/2023 14:41:02 DTaP 5 desiree Reebcca Lilly null, [facility] 06/20/2023 14:41:02 DTaP-Hep B-IPV 5 desiree Rebecca Lilly [facility], [facility] 06/20/2023 14:41:02 Influenza, split virus, quadrivalent, PF 8 desiree Rebecca Lilly [facility], [facility] 06/20/2023 14:41:02 Past Encounters Encounter ID Performer Location Encounter Start Date Encounter Closed Date Diagnosis/Indication Diagnosis SNOMED-CT Code Diagnosis ICD10 Code Diagnosis Note [id number] Sarbjit Jenkins NP [address] [address] 12/19/2022 15:59:56 12/19/2022 16:54:35 Neck pain 01191209 M54.2 No radiculopa thy.Trigge r point? Apply [...] Rivers Member ID Guarantor Name 04/28/2025 1 [facility] (MEDICAID HMO) [id number] Lani Ho [id number] Lani Ho Notes Date Note Type Note [...] missing school yesterday, and today. Sarbjit acosta, [facility] 12/19/2022 16:51:04 OBGyn Episode No OBEpisode recorded.
--- OUTSIDE RECORDS SUMMARY | 2025-06-03 00:47 | XMS_ITS ---
Author Organization Unknown Address [address] [place] [address] [phone] Phone Care Team Providers Care Geophysical Manager Name Role Phone ABBY AGUIRRE Attending Unavailable [...] em Smoking History Never smoker (Never Smoked) 625831429 SNOMED CT Sex Female Sexual Orientation Straight or Heterosexual 39161525 SNOMED CT Gender Identity Female [id number] [address] Vital Signs Vital Sign Value Unit [place] Value [place] Date/Time Recent/Initial? Code Code System Body Mass Index 26.21 kg/m2 05/06/2023 12:01 Initial 26872 -5 [facility] Body Mass Index Percentile 85 % 05/06/2023 12:01 Initial 23199 -9 [facility] Systolic Blood Pressure [...] O2 Saturation 98 % 2022 12:01 Initial 50957 -5 [facility] Pulse 78.0 /min 05/06/2023 12:01 Initial 8867- 4 [facility] Temperature 36.4 Antonella 97.5 F 05/06/20 12:01 Initial 8310- 5 [facility] Weight 162.40 kg 358.03 lbs 05/06/2023 12:01 Initial 64100 -7 [facility] Medications Medication Start Date End Date Route Frequency Dose Code Code System Medication Instructions Home Meds ZyrTEC Allergy 10MG Oral Capsule, Liquid Filled 03/12/2023 Unknown By Mouth Daily 1 CAPSULE 5897797 RxNorm 1 CAPSULE By Mouth Daily Fluticasone 0.05MG/1Actuatio n Nasal [place] 03/12/2023 Unknown Nasal Daily 1 Sprays 9875174 RxNorm 1 Spra ys Nasal Daily Azithromycin 500MG Oral Tablet 06/04/2024 Unknown By Mouth x1 NOW 2 TABLET 034667 RxNorm 2 TABLET By Mouth x1 NOW [...] Status Code Code System SEASONAL ALLERGY active 691302177 SNO MED-CT FAMILY PLANNING 06/20/2020 active 753440938 SNO MED-CT BITE OF INSECT active 458130782 SNOME D-CT ES OF VAGINA 08/07/2022 active 69382953 S NOMED-CT MENORRHAGIA active 094463243 SNOMED-C T PAINFUL NECK active 28806931 SNOMED- CT ADHD OF CHILDHOOD 07/22/2019 resolved 685641861 S NOMED-CT SEASONAL NASAL ALLERGY 07/22/2019 resolved 631766 001 SNOMED-CT HISTORY OF [place]POX 07/22/2019 resolved 3824531 08 SNOMED-CT Allergies and Adverse Reactions Allergy Substance Reaction Severity Start Date Concern Status Co de Code System Active No Known Drug Allergies Active 659558078 SNOMED-CT Plan of Treatment Description Due Date Details Instructions DEPRESSION SCREENING DUE 06/20/2021 Encounters Encounter Diagnosis Start Date Code Code Sys tem Injury of head 05/06/2023 61974271 SNOMED-CT Personal Care Team Section Progress Notes [facility] 05/06/2023 13:28 Date of Service: 05/06/2023 [...] Instructions Start Date Prescribing Fluticasone 0.05MG/1Actuation Nasal [place] 1 Sprays Nasal Daily 03/12/2023 Blanco Gallego ZyrTEC Allergy 10MG Oral Capsule, Liquid Filled 1 CAPSULE By Mouth Daily 03/12/2023 Blanco Gallego This examination was transcribed using the [employer] voice recognition system without human registered nurse surgical services. In an effort to expedite patient care, this report has not been adjusted for typographical, or medical or syntax by a trained medical legal investigator.
--- OUTSIDE RECORDS SUMMARY | 2025-06-03 00:47 | XMS_ITS | Clinical Summary ---
Author Organization [facility] Address [address] [place] [id number] Care Team Providers Care Rn Baby Name Role Phone Geovanna Pryor NP Primary [...] Standard) 2020 Hepatitis C 2022 COVID-19 Vaccine (2023- season) 2024 Hepatitis B Vaccines Completed 01/27/2005, [...] age to complete this topic Care Teams Rn Baby Relationship Specialty Start Date End Date Geovanna Pryor NP [address] [place] [address] PCP - General Nurse Practitioner Family 06/17/19 Geovanna Pryor NP [address] [place] [address] 06/17/19
--- OUTSIDE RECORDS SUMMARY | 2025-06-03 00:47 | XMS_ITS ---
Author Organization Unknown Address [address] [place] [address] [phone] Phone Care Team Providers Care Carpet Floor Layer Apprentice Name Role Phone ATIYA Lezama MD Attending [...] em Smoking History Never smoker (Never Smoked) 908924826 SNOMED CT Sex Female Sexual Orientation Straight or Heterosexual 51949518 SNOMED CT Gender Identity Female [id number] [address] Vital Signs Vital Sign Value Unit [place] [facility] [place] [facility] Date/Time Recent/Initial? Code Code System Body Mass Index 22.93 kg/m2 09/12/2022 17:59 Initial 99852 -5 [facility] Body Mass Index Percentile 67 % 09/12/2022 17:59 Initial 76200 -9 [facility] Systolic Blood Pressure 100 mm[Hg] 09/12/2022 17:59 Initial 8480- 6 [facility] Diastolic Blood Pressure 70 mm[Hg] 09/12/2022 17:59 Initial 8462- 4 [facility] Body Surface Area 1.81 m2 09/12/2022 17:59 Initial 3140- 1 [facility] Height 172.720 0 cm 68.00 in 09/12/2022 17:59 Initial 8302- 2 [facility] O2 Saturation 99 % 2021 17:59 Initial 21441 -5 [facility] Pulse 95.0 /min 09/12/2022 17:59 Initial 8867- 4 [facility] Respiration 18 /min 09/12/20 17:59 Initial 9279- 1 [facility] Temperature 36.9 Antonella 98.4 F 09/12/20 17:59 Initial 8310- 5 [facility] Weight 68.40 kg 150.80 lbs 09/12/2022 17:59 Initial 99931 -7 [facility] Medications Medication Start Date End Date Route Frequency Dose Code Code System Medication Instructions Home Meds Sutton-28 30MCG-0.15MG-NA Oral Tablet 06/07/2022 09/12/2022 By Mouth Daily 1 TABLET 904165 RxNorm 1 TABLET By Mouth Daily Diflucan 150MG Oral Tablet 08/07/2022 09/12/2022 By Mouth x1 NOW 1 TABLET 888718 RxNorm 1 TABLET By Mouth x1 NOW FOR MARCH REPEAT IN 72 HOURS Radha 28 3MG-0.02MG Oral Tablet 09/12/2022 12/25/2022 By Mouth Once a day 1 TABLET RxNorm 1 TABLET By Mouth Once a day Medrol Dosepak 4MG Oral Tablet 12/25/2022 02/20/2023 By Mouth As Directed 1 PACK 356625 RxNorm 1 PACK By Mouth As Directed Methocarbamol 750MG Oral Tablet 12/25/2022 03/12/2023 By Mouth As needed every 8 hr 541639 RxNorm 1-2 TABLET By Mouth As needed every 8 hr Anel-28 30 MCG-0.15 MG; NA Oral Tablet 12/25/2022 03/12/2023 By Mouth Daily 1 TABLET 979957 RxNorm 1 TABLET By Mouth Daily Macrobid 100MG Oral Capsule 02/20/2023 03/12/2023 By mouth Twice a day 1 TABLET 852060 RxNorm 1 TABLET By mouth Twice a day X 7 DAYS Pyridium 100MG Oral Tablet 02/20/2023 03/12/2023 By mouth As needed every 8 hr 1 TABLET 9059426 RxNorm 1 TABLET By mouth As needed every 8 hr for urinary pain ZyrTEC Allergy 10MG Oral Capsule, Liquid Filled 03/12/2023 Unknown By Mouth Daily 1 CAPSULE 8277454 RxNorm 1 CAPSULE By Mouth Daily Fluticasone 0.05MG/1Actuatio n Nasal [place] 03/12/2023 Unknown Nasal Daily 1 Sprays 5215681 RxNorm 1 Spra ys Nasal Daily Azithromycin 500MG Oral Tablet 06/04/2024 Unknown By Mouth x1 NOW 2 TABLET 057298 RxNorm 2 TABLET By Mouth x1 NOW [...] Status Code Code System SEASONAL ALLERGY active 115303520 SNO MED-CT FAMILY PLANNING 06/20/2020 active 985047097 SNO MED-CT BITE OF INSECT active 286173212 SNOME D-CT ES OF VAGINA 08/07/2022 active 04998549 S NOMED-CT MENORRHAGIA active 120087058 SNOMED-C T PAINFUL NECK active 68469734 SNOMED- CT ADHD OF CHILDHOOD 07/22/2019 resolved 715538758 S NOMED-CT SEASONAL NASAL ALLERGY 07/22/2019 resolved 217451 001 SNOMED-CT HISTORY OF [place] 07/22/2019 resolved 6636791 08 SNOMED-CT Allergies and Adverse Reactions Allergy Substance Reaction Severity Start Date Concern Status Co de Code System Active No Known Drug Allergies Active 009083396 SNOMED-CT Plan of Treatment Description Due Date Details Instructions DEPRESSION SCREENING DUE 06/20/2021 Future Order Description Future Order Date Futu re Order Loinc: TSH 09/12/2022 LOINC: 08611-0 FREE T4 09/12/2022 LOINC: 3024-7 CBC W DIFF 09/12/2022 LOINC: 15038-6 COMPREHENSIVE METABOLIC PANEL 09/12/2022 L OINC: 55157-1 PT (PROTIME) 09/12/2022 LOINC: 6301-6 Encounters Encounter Diagnosis Start Date Code Code Sys tem Excessive and frequent menstruation 09/12/2022 29526 1003 SNOMED-CT Personal Care Team Section Progress Notes [facility] 09/13/2022 09:49 Admission Date/Time: 09/12/2022 13:21 Rachael Andersen MD Clinic Visit Note Chief Complaint: DISCUSS BC Has the patient received a COVID Vaccine? Yes Nurse Note: this nurse note is documented by Opal Ly CMA 17 yr old female present to [facility] today to discuss BC History of Present Illness: An 17-year-old presents to [facility] today to discuss BC. Patient [...] due to pain. Patient is currently on Sutton for BC. Patient states when she first took the Sutton she noticed tissue came out of her [...]
--- OUTSIDE RECORDS SUMMARY | 2025-06-03 00:47 | XMS_ITS ---
Author Organization Unknown Address [address], [place] [phone] Phone Care Team Providers Care Geodetic Technician Name Role Phone DEON CONROY Attending Unavailable Results CYTOMEGALOVIRUS AB IGG - Col lect Date/Time: 10/22/2024 14:12 [facility] ID: [id number] [address] [place] [address], [phone] LOINC: 5124-3 Test Value Unit Reference Range Code Code System Flag CYTOMEGALOVIRUS ANTIBODY(IGG) >10.00 H PARVOVIRUS B19 IGG & IGM - C ollect Date/Time: 10/22/2024 14:12 [facility] ID: [id number] [address] [place] [address], [phone] LOINC: 5273-8 Test Value Unit Reference Range Code Code System Flag PARVOVIRUS B19 ANTIBODY(IGG) 0.2 PARVOVIRUS B19 ANTIBODY(IGM) 0.2 Social History Type Status Start Date End Date Code Code Syst em Smoking History Never smoker (Never Smoked) 904832848 SNOMED CT Sex Female Sexual Orientation Straight or Heterosexual 48921171 SNOMED CT Gender Identity Female [id number] [address] Medications Medication Start Date End Date Route Frequency Dose Code Code System Medication Instructions Home Meds ZyrTEC Allergy 10MG Oral Capsule, Liquid Filled 03/12/2023 Unknown By Mouth Daily 1 CAPSULE 0387180 RxNorm 1 CAPSULE By Mouth Daily Fluticasone 0.05MG/1Actuatio n Nasal [place] 03/12/2023 Unknown Nasal Daily 1 Sprays 1572763 RxNorm 1 Spra ys Nasal Daily Azithromycin 500MG Oral Tablet 06/04/2024 Unknown By Mouth x1 NOW 2 TABLET 049953 RxNorm 2 TABLET By Mouth x1 NOW [...] Status Code Code System SEASONAL ALLERGY active 082622069 SNO MED-CT FAMILY PLANNING 06/20/2020 active 779099897 SNO MED-CT BITE OF INSECT active 281279758 SNOME D-CT ES OF VAGINA 08/07/2022 active 42468236 S NOMED-CT MENORRHAGIA active 906689795 SNOMED-C T PAINFUL NECK active 93916357 SNOMED- CT ADHD OF CHILDHOOD 07/22/2019 resolved 969891409 S NOMED-CT SEASONAL NASAL ALLERGY 07/22/2019 resolved 136699 001 SNOMED-CT HISTORY OF [place] 07/22/2019 resolved 1842152 08 SNOMED-CT Allergies and Adverse Reactions Allergy Substance Reaction Severity Start Date Concern Status Co de Code System Active No Known Drug Allergies Active 800781149 SNOMED-CT Plan of Treatment Description Due Date Details Instructions DEPRESSION SCREENING DUE 06/20/2021 Encounters Encounter Diagnosis Start Date Code Code Sys tem ultrasound scan abnormal 10/22/2024 799026 005 SNOMED-CT Personal Care Team Section
--- OUTSIDE RECORDS SUMMARY | 2025-06-03 00:48 | XMS_ITS ---
Author Organization Unknown Address [address] [place] [address] [phone] Phone Care Team Providers Care Environmental Protection Geologist Name Role Phone Blanco Gallego Attending Unavailable [...] ANTIGEN - Collec t Date/Time: 03/12/2023 14:51 [facility] ID: [id number] [address], [place], [phone] LOINC: 6556-5 Test Value Unit Reference Range Code Code System Flag COVID RAPID ANTI NEGATIVE NORMAL: NEGATIVE LOT#: [id number] Exp Date: 12/07/2023 QC: ACCEPTABLE STREP A SCREEN - Collect Sha e/Time: 03/12/2023 14:50 [facility] ID: [id number] [address], [place], [phone] LOINC: 6556-5 Test Value Unit Reference Range Code Code System Flag STREP SCREEN NEGATIVE NORMAL: NEGATIVE 6556-5 LOINC Lot#: [id number] Exp Date: 04/10/2024 QC STREP ACCEPTABLE Social History Type Status Start Date End Date Code Code Syst em Smoking History Never smoker (Never Smoked) 031800204 SNOMED CT Sex Female Sexual Orientation Straight or Heterosexual 15973868 SNOMED CT Gender Identity Female [id number] [address] Vital Signs Vital Sign Value Unit [place] Value [place] Unit Date/Time Recent/Initial? Code Code System Body Mass Index 23.57 kg/m2 03/12/2023 14:40 Initial 74951 -5 LOINC Body Mass Index Percentile 71 % 03/12/2023 14:40 Initial 64077 -9 LOINC Systolic Blood Pressure 100 mm[Hg] 03/12/2023 14:40 Initial 8480- 6 LOINC Diastolic Blood Pressure 68 mm[Hg] 03/12/2023 14:40 Initial 8462- 4 LOINC Body Surface Area 1.84 m2 03/12/2023 14:40 Initial 3140- 1 LOINC Height 172.720 0 cm 68.00 in 03/12/2023 14:40 Initial 8302- 2 INC O2 Saturation 95 % 2022 14:40 Initial 75165 -5 LOINC Pulse 56.0 /min 03/12/2023 14:40 Initial 8867- 4 LOINC Respiration 16 /min 03/12/20 14:40 Initial 9279- 1 LOINC Temperature 37.5 Antonella 99.5 F 03/12/20 14:40 Initial 8310- 5 INC Weight 70.31 kg 155.00 lbs 03/12/2023 14:40 Initial 54857 -7 [facility] Medications Medication Start Date End Date Route Frequency Dose Code Code System Medication Instructions Home Meds Methocarbamol 750MG Oral Tablet 12/25/2022 03/12/2023 By Mouth As needed every 8 hr 844858 RxNorm 1-2 TABLET By Mouth As needed every [address] 30 MCG-0.15 MG; NA Oral Tablet 12/25/2022 03/12/2023 By Mouth Daily 1 TABLET 849703 RxNorm 1 TABLET By Mouth Daily Macrobid 100MG Oral Capsule 02/20/2023 03/12/2023 By mouth Twice a day 1 TABLET 205215 RxNorm 1 TABLET By mouth Twice a day X 7 DAYS Pyridium 100MG Oral Tablet 02/20/2023 03/12/2023 By mouth As needed every 8 hr 1 TABLET 5624876 RxNorm 1 TABLET By mouth As needed every 8 hr for urinary pain ZyrTEC Allergy 10MG Oral Capsule, Liquid Filled 03/12/2023 Unknown By Mouth Daily 1 CAPSULE 0044231 RxNorm 1 CAPSULE By Mouth Daily Fluticasone 0.05MG/1Actuati on Nasal [place] 03/12/2023 Unknown Nasal Daily 1 Sprays 0103181 RxNorm 1 Spr ays Nasal Daily Azithromycin 500MG Oral Tablet 06/04/2024 Unknown By Mouth x1 NOW 2 TABLET 004417 RxNorm 2 TABLET By Mouth x1 NOW [...] Status Code Code System SEASONAL ALLERGY active 860316801 SNO MED-CT FAMILY PLANNING 06/20/2020 active 026198634 SNO MED-CT BITE OF INSECT active 884128729 SNOME D-CT ES OF VAGINA 08/07/2022 active 44047003 S NOMED-CT MENORRHAGIA active 067673741 SNOMED-C T PAINFUL NECK active 89122960 SNOMED- CT ADHD OF CHILDHOOD 07/22/2019 resolved 607325861 S NOMED-CT SEASONAL NASAL ALLERGY 07/22/2019 resolved 253804 001 SNOMED-CT HISTORY OF [place] 07/22/2019 resolved 2540670 08 SNOMED-CT Allergies and Adverse Reactions Allergy Substance Reaction Severity Start Date Concern Status Co de Code System Active No Known Drug Allergies Active 293260356 SNOMED-CT Plan of Treatment Description Due Date Details Instructions DEPRESSION SCREENING DUE 06/20/2021 Encounters Encounter Diagnosis Start Date Code Code Sys tem Seasonal allergic rhinitis 03/12/2023 157804109 S NOMED-CT Personal Care Team Section Progress Notes [facility] 03/12/2023 15:06 Admission Date/Time: 03/12/2023 [...] is an 17 yo female presents to [facility] today for sore throat and [...] records Referring and communicating with other health cardiac care nurse x Obtaining and/or reviewing separately obtained history Independent interpretation of results and communicating results to the patient/family/caregiver x Performing a medically appropriate examination/evaluation Care coordination (not reported separately) x Discharge instructions given to patient. Ordered & Completed Meds Table: No Current Medications Available Discharge Med List: Discharge Medications: No Discharge Medications Available [facility] 03/12/2023 15:20 Current Date/Time: 03/12/2023 15:03 Patient Name: NELA MANZANARES was seen at [facility] [phone] on Date of Service: 03/12/2023 . They may return to school on 03/13/2023 with No restrictions . .
--- OUTSIDE RECORDS SUMMARY | 2025-06-03 00:48 | XMS_ITS | Clinical Summary ---
Author Organization [facility] Address [address] [place] [address] Care Team Providers Care House Carpenter Helper Name Role Phone Faustino Matta MD Primary Care Provider Source Comments [facility],non-owned Affiliates and Associated Physician Practices is amultiple site organization consisting of ambulatory clinics and hospital sitesin [place], [place], [place] and [place]. This disclosure is being madepursuant to the Care Everywhere program and may not contain all information available regarding this patient. 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
--- OUTSIDE RECORDS SUMMARY | 2025-06-03 00:48 | XMS_ITS | Data Portability ---
Author Organization [facility] , [facility] Address [address] [place] [address] Assessment No assessment recorded. Plan of Treatment Reminders Order Date Submit Date Provider Last Modified By Organization Details Last Modified Time Details Appointments None recorded. Lab CBC w/ auto diff 2024 025 [facility], [address] [place], [address], 5 12:24:38 glucose tolerance test, post-50G, 1-hour 2024 025 [facility], [address] [place], [address], 5 12:35:39 obstetric screen, serum or blood 2024 025 [facility], [address] [place] [address], [address], 5 14:47:18 Referral None recorded. Procedures None recorded. Surgeries None recorded. Imaging None recorded. Medication Orders None recorded. Patient TargetsNo targets recorded. Patient Instructions Encounter Date Encounter Id Patient Instructions Last Modified By Organization Details Last Modified Time 11/18/2024 [id number] learning about screening for gestational diabetes Not available 11/18/2024 15:10:20 11/26/2024 [id number] Anxiety During and After : Care Instructions Not available 11/26/2024 17:57:56 Reason for Referral None Reported. Results Created Date Observation Date Name Description Value Unit Range Abnormal Flag Note LastModifiedBy Organization Detail LastModifiedTime 11/18/19 25 11/19/2024 CBC (INCL UDES DIFF/ PLT) WBC 7.6 thous and/u L 4.0 - 9.8 normal Not Available [facility] [address] [place] [address], [address], 11/19/2024 12:24:38 11/18/19 25 11/19/2024 CBC (INCL UDES DIFF/ PLT) RBC 3.4 jonathon on/uL 3.9 - 4.9 low Not Available [facility] [address] [place] [address], [address], 11/19/2024 12:24:38 11/18/19 25 11/19/2024 CBC (INCL UDES DIFF/ PLT) hemoglobin 11.0 g/dL 11.8 - 14.8 low Not Available [facility] [address] [place] [address], [address], 11/19/2024 12:24:38 11/18/19 25 11/19/2024 CBC (INCL UDES DIFF/ PLT) hematocrit 32.6 % 35.5 - 44.0 low Not Available [facility] [address] [place] [address], [address], 11/19/2024 12:24:38 11/18/19 25 11/19/2024 CBC (INCL UDES DIFF/ PLT) MCV 96.7 fL 82.0 - 99.0 normal Not Available [facility] [address] [place] [address], [address], 11/19/2024 12:24:38 11/18/1911/19/2024 CBC (INCL UDES DIFF/ PLT) MCH 32.6 pg 27.2 - 32.6 normal Not Available [facility] [address] [place] [address], [address], 11/19/2024 12:24:38 11/18/19 25 11/19/2024 CBC (INCL UDES DIFF/ PLT) MCHC 33.7 g/dL 31.5 - 35.5 normal Not Available [facility], [address], 11/19/2024 12:24:38 11/18/1911/19/2024 CBC (INCL UDES DIFF/ PLT) RDW-CV 12.2 % 11.5 - 14.5 normal Not Available [address], [address], 11/19/2024 12:24:38 11/18/1911/19/2024 CBC (INCL UDES DIFF/ PLT) platelet 294 thous and/u L 140 - 350 normal Not Available [address], [address], 11/19/2024 12:24:38 11/18/1911/19/2024 CBC (INCL UDES DIFF/ PLT) MPV 10.4 fL 9.3 - 12.4 normal Not Available [address], [address], 11/19/2024 12:24:38 11/18/19 25 11/19/2024 CBC (INCL UDES DIFF/ PLT) absolute neutrophil 5.66 thous and/u L 1.90 - 7.00 normal Not Available [address], [address], 11/19/2024 12:24:38 11/18/19 25 11/19/2024 CBC (INCL UDES DIFF/ PLT) absolute lymphocyte 1.32 thous and/u L 0.70 - 4.50 normal Not Available [address], [address], 11/19/2024 12:24:38 11/18/1911/19/2024 CBC (INCL UDES DIFF/ PLT) absolute monocyte 0.46 thous and/u L 0.10 - 1.30 normal Not Available [address], [address], 11/19/2024 12:24:38 11/18/19 25 11/19/2024 CBC (INCL UDES DIFF/ PLT) absolute eosinophil 0.05 thous and/u L <0.70 normal Not Available [address], [address], 11/19/2024 12:24:38 11/18/19 25 11/19/2024 CBC (INCL UDES DIFF/ PLT) absolute basophil 0.03 thous and/u L <0.20 normal Not Available [address], [address], 11/19/2024 12:24:38 11/18/19 25 11/19/2024 CBC (INCL UDES DIFF/ PLT) absolute immature granulocyte 0.08 thous and/u L <0.03 high Not Available [address], [address], 11/19/2024 12:24:38 11/18/19 25 11/19/2024 (50G) 1HR - GLUCO SE GIA ANCE TEST, GESTA ELDER L SCREE N glucose (50g) 1 hour 144 mg/dL <135 high Not Available [address], [address], 11/19/2024 12:35:39 11/18/19 25 11/19/2024 OB 28W (SYPH HIV 1/2 Ag/Ab Non-Re active non-re active normal Not Available [address], [address], 11/19/2024 14:47:18 11/18/19 25 11/19/2024 OB 28W (SYPH syphilis Ab Non-Re active non-re active normal Not Available [address], [address], 11/19/2024 14:47:18 11/23/19 25 11/24/2024 (100G ) 3HR - GLUCO SE GIA ANCE TEST, GESTA ELDER L SCREE N glucose (100g) fasting 86 mg/dL <95 normal Not Available [address], [address], 11/24/2024 14:31:33 11/23/19 25 11/24/2024 (100G ) 3HR - GLUCO SE GIA ANCE TEST, GESTA ELDER L SCREE N glucose (100g) 1 hour 198 mg/dL <180 high Not Available [facility] [address] [place], [address], 11/24/2024 14:31:33 11/23/19 25 11/24/2024 (100G ) 3HR - GLUCO SE GIA ANCE TEST, GESTA ELDER L SCREE N glucose (100g) 2 hour 163 mg/dL <155 high Not Available [facility] [address] [place], [address], 11/24/2024 14:31:33 11/23/19 25 11/24/2024 (100G ) 3HR - GLUCO SE GIA ANCE TEST, GESTA ELDER L SCREE N glucose (100g) 3 hour 145 mg/dL <140 high Not Available [facility] [address] [place], [address], 11/24/2024 14:31:33 09/23/20 24 09/23/2024 US, obste tric, 2nd trime ster No observ ation record ed. [email or web address] [facility] [address] [place] [address], [address], 09/24/2024 15:24:20 10/23/20 24 10/21/2024 US, obste tric No observ ation record ed. [email or web address] [facility] [address] [place] [address], [address], 11/30/2024 13:18:29 11/20/19 25 11/19/2024 US, obste tric No observ ation record ed. [email or web address] [facility] [address] [place] [address], [address], 12/02/2024 14:05:06 Result Notes None recorded. Problems Name Problem SNOMED Code Status Onset Date Resolution Date Notes Provider Name and Address Organization Details Recorded Time Pregnanc y 87141127 Completed 202303/22/2025 Geovanna Tanner null, [place] - [facility] 16:50:59 Rubella non-immu ne 398116616 Completed 2024 WOLF GUADARRAMA NP [facility] [place], [address], [facility] - [facility] 18:36:58 Abnormal finding on antenata l screenin g of mother 450107942 Completed 2024 XXY on NIPT (Klinefel ter syndrome) WOLF GUADARRAMA NP [facility] [place], [address], [facility] - [facility] IV 18:48:16 RhD negative 906322213 Completed 2024 RH (D) NIPT detected will need Rhogam PP WOLF GUADARRAMA NP [facility] [place], [address], [facility] - [facility] IV 18:49:16 Large for gestatio n age fetus Completed 2024 EFW 98%tile on 10/22 Echogenic bowel 11/19-94%ti le WOLF GUADARRAMA NP [address] [place] [address], [address], [facility] - [facility] IV 14:05:39 Gestatio nal diabetes mellitus 85383105 Completed 2024 WOLF GUADARRAMA NP [facility] [place], [address], [facility] - [facility] IV 17:52:44 Problem Notes None recorded. Procedures Surgical History Date Name Laterality Status Provider Name and Address Organization Details Recorded Time Appendectomy completed Rebecca Chadwick [facility] IV 06/09/2024 15:08:50 Imaging Results None recorded. [...] Address Organization Details Last Updated DateTime 11/18/2024 16885.44 186 g 27.1 kg/m2 86 % 172.72 cm 110/70 mm[Hg] [facility] 5 14:46:18 Date Recorded Body weight Body mass index (BMI) Body mass index (BMI) [Percentile] Per age and sex Body height Systolic And Diastolic Provider Name and Address Organization Details Last Updated DateTime 11/26/2024 94041.62 66 g 27.4 kg/m2 87 % 172.72 cm 112/68 mm[Hg] [facility] 5 16:44:47 Date Recorded Body weight Body mass index (BMI) [Percentile] Per age and sex Body mass index (BMI) Body height Systolic And Diastolic Provider Name and Address Organization Details Last Updated DateTime 12/02/2024 49062.84 949 g 86 % 26.9 kg/m2 172.72 cm 112/70 mm[Hg] [facility] 5 14:34:15 Date Recorded Body height Body mass index (BMI) Body mass index (BMI) [Percentile] Per age and sex Body weight Systolic And Diastolic Provider Name and Address Organization Details Last Updated DateTime 09/30/2024 172.72 cm 26 kg/m2 83 % 65493.2 9527 g 120/70 mm[Hg] uLcina Rossi [facility] IV 4 15:43:01 Date Recorded Body weight Body mass index (BMI) [Percentile] Per age and sex Body mass index (BMI) Body height Body temperature Systolic And Diastolic Provider Name and Address Organization Details Last Updated DateTime 4 70758.8 90528 g 85 % 26.7 kg/m2 172.72 cm 96.6 [degF] 118/68 mm[Hg] Cristela Mcgrath [facility] 4 14:19:52 Social History Question Answer Notes LastModified by [email or web address] ion Details LastModified Time Tobacco Smoking Status Never Smoker Rebecca acosta, [facility] 06/09/2024 15:08:08 If You Are , What Was Your Level Of Alcohol Consumption Prior To ? None [email or web address] Information not available 06/09/2024 Are You Blind Or Do You Have Difficulty Seeing? No Information not available 06/23/2024 Are You Deaf Or Do You Have Serious Difficulty Hearing? No Information not available 06/23/2024 What Type Of Diet Are You Following? REGULAR [email or web address] Information not available 06/09/2024 How Many Children Do You Have? 0 Information not available 06/23/2024 What Is Your Relationship Status? Domestic Partner [email or web address] Information not available 06/09/2024 Are You Sexually Active? Yes [email or web address] Information not available 06/09/2024 Sex: Unknown Functional Status Question Answer Note LastModified by Organizat ion Details LastModified Time Do you use any illicit or recreational drugs? No [email or web address] Information not available 06/09/2024 Do you or have you ever used any other forms of tobacco or nicotine? No [email or web address] Information not available 06/09/2024 What is your level of alcohol consumption? None [email or web address] Information not available 06/09/2024 What is your exercise level? None [email or web address] Information not available 06/23/2024 Mental Status None recorded. Family History Relationship Description Onset Age of this Age Resolved Age Notes LastModified by Organization Details LastModified Time Father No current problems or disability [email or web address] Not available 05/13 15:07:47 Mother No current problems or disability [email or web address] Not available 05/13 15:07:47 Medical History Condition [...] SNOMED-CT Code Diagnosis ICD10 Code Diagnosis Note [id number] WOLF GUADARRAMA NP [facility] [address] [place] [address] 06/09/2024 15:02:07 06/10/2024 15:59:32 Missed period 58862760 N92.6 Patient with possible early gestation. Patient is unsure of LMP possibly 6.17.24. Denies VB or abnormal discharge. SAB precaution s reviewed. To RTC in 2-3 weeks for repeat TVUS [id number] WOLF GUADARRAMA NP [facility] [address] [place] [address] 06/23/2024 14:51:10 06/23/2024 16:28:07 test positive 639556967 Z32.01 Pt presents today for a confirmati [...] for 1st OB, Labs, and Physical. --BMI:24.9 [id number] WOLF GUADARRAMA NP [facility] [address] [place] [address] 07/22/2024 16:12:51 07/22/2024 16:55:54 Gestation period, 11 weeks 54947572 Z3A.11 screening 2437 11201 Z36.89 Normal 1234711 2 Z34.90 Pt comes in today for a New/First OB visit.Gest ation:11 w3 dEDD: -- PMH: Anxiety-- Medication s: Taking daily PNV, paxton supp for N/V and tylenol-- Previous OB History: n/a-- Mom/Sister s with hx of Pre-Eclamp kelli:denies -- History of Genital HSV:denies -- Genetic Questions in OB Episode Done-- Accepts opvizor. Discussed logging on to the opvizor portal to find Gender Results POC-- NOB labs done today-- Accepts opvizor -- RTC 4 weeks Guide: Given and reviewed. Toxoplasmo sis precaution s reviewed. Reviewed office visit schedule during . Reviewed Quickening and normal FHTs. Carrier de tection, molecular genetics 7466072 Z14.8 [id number] WOLF GUADARRAMA NP [facility] [address] [place] [address] 08/19/2024 16:40:21 08/21/2024 12:29:30 Normal 55668777 Z34.90 Pt is here for a KEYONNA [...] for pre-term labor. Gestation period, 15 weeks 9718592 Z3A.15 declines AFP will offer again at next appt. [id number] WOLF GUADARRAMA NP [address] [address] 09/07/2024 15:50:39 09/07/2024 16:37:32 Normal 95016487 Z34.92 Pt is here for a KEYONNA [...] for pre-term labor. Gestation period, 18 weeks 67349740 Z3A.18 [id number] WOLF GUADARRAMA NP [facility] [address] [place] [address] 09/30/2024 15:30:33 10/03/2024 14:06:30 Normal 54906961 Z34.90 Pt is here for a KEYONNA [...] for pre-term labor. Gestation period, 21 weeks 16295520 Z3A.21 Backache 435387624 O99.8 91 M54.9 [id number] WOLF GUADARRAMA NP [facility] [address] [place] [address] 10/21/2024 14:10:22 10/21/2024 14:50:59 Gestation period, 24 weeks 920017415 Z3A.24 Normal 4208292 2 Z34.92 Pt is here for a KEYONNA rowan. She is taking vitamins. She has no complaints or questions. Reports feeling movement. Denies vaginal bleeding, abdominal cramps, N/V, contractio ns, or LOF. Denies headache, vision changes, swelling of hands or face, and epigastric pain. Discussed PTL and precaution s given. There are no identifiab le risk factors for pre-term labor. [id number] WOLF GUADARRAMA NP [address] [address] 11/18/2024 14:41:31 11/19/2024 15:28:39 Normal 77565711 Z34.92 Pt is here for a KEYONNA rowan. She is taking vitamins. She has no complaints or questions. Reports feeling movement. Denies vaginal bleeding, abdominal cramps, N/V, contractio ns, or LOF. Denies headache, vision changes, swelling of hands or face, and epigastric pain. Discussed PTL and precaution s given. There are no identifiab le risk factors for pre-term labor. Gestation period, 28 weeks 09007269 Z3A.28 screening 2437 [address] Z36.89 [id number] WOLF GUADARRAMA NP [facility] [address] [place] [address] 11/26/2024 16:40:34 11/29/2024 05:26:51 Gestational diabetes mellitus complicating 6334910066 9106 O24.419 *GDM education completed. Discussed diet- [...] logs given pt to RTC next week*Check [facility] website for further info High risk 4720 [...] for pre-term labor. Gestation period, 29 weeks 02050497 Z3A.29 [id number] WOLF GUADARRAMA NP [facility] [address] [place] [address] 12/02/2024 14:30:01 12/04/2024 14:24:45 High risk 35906150 O09.90 Pt is here for a KEYONNA [...] for pre-term labor. Gestation period, 30 weeks 93407692 Z3A.30 Gestationa l diabetes mellitus 94493689 O24.410 Health Concerns Section Related Observation LastModified by Organization Detai ls LastModified Time None Recorded Concern Status LastModified by Organization Details LastModified Time None Recorded Advance Directives Directive None Recorded Payers Insurance Date Sequence Insurance Name Policy Number Policy Rivers Covered Member ID Rivers Member ID Guarantor Name 11/23/2024 1 [facility] (MEDICAID REPLACEMENT - HMO) Lani Ho [id number] Lani Ho 11/18/2024 1 [facility] (HMO) [id number] Lani Ho [id number] Lani Ho 12/16/2024 1 [place] Lani Ho [id number] Lani Ho 11/23/2024 [facility] (MEDICAID HMO) [id number] Lani Ho [id number] Lani Ho 12/16/2024 1 [facility] (MEDICAID HMO) [id number] Lani Ho [id number] Lani Ho 11/18/2024 1 [place] [facility] Lani Ho [id number] Lani Ho Notes Date Note Type Note Provider Name and Address Organization Details Recorded Time 09/30/2024 text/html Lani is 21.3 weeks. She is here for a routine visit. She reports normal movement and she is taking vitamins. Anatomy scan was done at [facility]. WOLF GUADARRAMA NP [address] [place], [address], [facility] 10/01/2024 10:29:53 10/21/2024 text/html Patient is here today for a routine OB visit. She is currently at 24.3 weeks gestation. vitamins: yes She has felt movement.She denies any complaints of the presence of vaginal bleed, leaking fluid, abdominal cramps, nausea, vomiting, headache or visual disturbances. WOLF GUADARRAMA NP [address] [place], [address], [facility] 10/21/2024 14:38:09 11/18/2024 text/html Patient is here today for a routine OB visit. She is currently at 28.3 weeks gestation. vitamins: yes She has felt movement.She denies any complaints of the presence of vaginal bleed, leaking fluid, abdominal cramps, nausea, vomiting, headache or visual disturbances. No concerns. EPDS is 9. 1 Hr. Glucose @ 1:48 p.m. WOLF GUADARRAMA NP [address] [place], [address], [facility] 11/18/2024 18:56:16 11/26/2024 text/html Patient is here today for a routine OB visit. She is currently at 29.4 weeks gestation. vitamins: yes She has felt movement.She denies any complaints of the presence of vaginal bleed, leaking fluid, abdominal cramps, nausea, vomiting, headache or visual disturbances. Pt. has no concerns. WOLF GUADARRAMA NP [address] [place], [address], [facility] 11/26/2024 17:58:04 12/02/2024 text/html Patient is here today for a routine OB visit. She is currently at 30.3 weeks gestation. vitamins: yes She has felt movement.She denies any complaints of the presence of vaginal bleed, leaking fluid, abdominal cramps, nausea, vomiting, headache or visual disturbances. Pt. has no concerns. WOLF GUADARRAMA NP [address] [place], [address], [facility] 12/03/2024 14:55:08 OBGyn Episode Ob Episode Information Episode Created Date Number of Fetuses Patient Bloodtype Patient rh Status Prepregnancy Weight lbs Domestic Partner Domestic Partner Phone Father Name Etymology Professor Status 07/22/20 24 1 B Negative CLOSED Fetus Data First Name Last Name Admitted to NICU Weight (g) Sex Living Outcome Pediatric Complications Fetus ID Race Codes Race Delivery Type [id number] Problems Problem Notes Problem Name Start Date End Date Resolution Snomed Code Not e RhD negative 11/18/2024 983999241 RH (D) NIPT detected will need Rhogam PP Large for gestation age fetus 11/18/20241995777629534 EFW 98%tile on 10/22 Echogenic bowel 11/19-94%tile Rubella non-immune 11/18/2024 498228563 Gestational diabetes mellitus 11/26/2024 06392639 Abnormal finding on screening of mother 11/18/2024 435759667 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) Taye Calculation [...] in lbs Pre/Post Dialysis Refused With clothes 164.126795886098 BP Diastolic BP Location Tested BP Systolic [...] in lbs Pre/Post Dialysis Refused With clothes 164.017865950559 BP Diastolic BP Location Tested BP Systolic [...] in lbs Pre/Post Dialysis Refused With clothes 165.736762954472 BP Diastolic BP Location Tested BP Systolic [...] Type Weight in lbs Pre/Post Dialysis Refused 171.541240553117 BP Diastolic BP Location Tested BP Systolic BP Type 70 120 Fetus Heart Rate Present A 146 Present Fetus Movement A Yes Comments Patient reports back sorenes s with certain movements. No Other OB complaints. RTC in 4 wks. Flowsheet Date 10/21/2024 Lozaad Score Blood Edema Fundus Height Fundus Units Glucose Ketones Leukocytes Nitrite Labor Signs Protein Cervic Dilation Cervic Effacement Cervic Station none neg Type Weight in lbs Pre/Post Dialysis Refused With clothes 175.645341056099 BP Diastolic BP Location Tested BP Systolic [...] Type Weight in lbs Pre/Post Dialysis Refused 178.403903084716 BP Diastolic BP Location Tested BP Systolic [...] Type Weight in lbs Pre/Post Dialysis Refused 180.084272058379 BP Diastolic BP Location Tested BP Systolic [...] Type Weight in lbs Pre/Post Dialysis Refused 177.291723596553 BP Diastolic BP Location Tested BP Systolic [...]
--- OUTSIDE RECORDS SUMMARY | 2025-06-03 00:48 | XMS_ITS ---
Author Organization Unknown Address [address] [place], [place] [id number] Phone Care Team Providers Care Deliverer Outside Name Role Phone [email or web address] Machado Social History Type Status Start Date End Date Code Code Syst em Smoking History Never smoker (Never Smoked) 021082810 SNOMED CT Sex Female Sexual Orientation Straight or Heterosexual 49086662 SNOMED CT Gender Identity Female [id number] [address] Medications Medication Start Date End Date Route Frequency Dose Code Code System Medication Instructions Home Meds ZyrTEC Allergy 10MG Oral Capsule, Liquid Filled 03/12/2023 Unknown By Mouth Daily 1 CAPSULE 7418688 RxNorm 1 CAPSULE By Mouth Daily Fluticasone 0.05MG/1Actuatio n Nasal [place] 03/12/2023 Unknown Nasal Daily 1 Sprays 3339740 RxNorm 1 Spra ys Nasal Daily Azithromycin 500MG Oral Tablet 06/04/2024 Unknown By Mouth x1 NOW 2 TABLET 104915 RxNorm 2 TABLET By Mouth x1 NOW [...] Status Code Code System SEASONAL ALLERGY active 727681586 SNO MED-CT FAMILY PLANNING 06/20/2020 active 570069619 SNO MED-CT BITE OF INSECT active 620307604 SNOME D-CT ES OF VAGINA 08/07/2022 active 42668932 S NOMED-CT MENORRHAGIA active 013012390 SNOMED-C T PAINFUL NECK active 07228792 SNOMED- CT ADHD OF CHILDHOOD 07/22/2019 resolved 532922291 S NOMED-CT SEASONAL NASAL ALLERGY 07/22/2019 resolved 248057 001 SNOMED-CT HISTORY OF CHICKENPOX 07/22/2019 resolved 3042923 08 SNOMED-CT Allergies and Adverse Reactions Allergy Substance Reaction Severity Start Date Concern Status Co de Code System Active No Known Drug Allergies Active 123632960 SNOMED-CT Plan of Treatment Description Due Date Details Instructions DEPRESSION SCREENING DUE 06/20/2021 Encounters Encounter Diagnosis Start Date Code Code Sys tem Dysuria 06/03/2024 63447151 SNOMED-CT Personal Care Team Section
--- OUTSIDE RECORDS SUMMARY | 2025-06-03 00:48 | XMS_ITS ---
Author Organization Unknown Address [address] [place] [address] [phone] Phone Care Team Providers Care Waitstaff Name Role Phone JOSUE FULTON Attending Unavailable [...] MICR O - Collect Date/Time: 02/20/2023 18:44 [facility] ID: [id number] [address] [place] [address], [phone] LOINC: Test Value Unit Reference Range Code [...] TEST - Colle ct Date/Time: 02/20/2023 18:43 [facility] ID: [id number] [address] [place] [address], [phone] LOINC: Test Value Unit Reference Range Code Code System Flag TEST PERFORMED URINE PREG (URINE) NEGATIVE LOT#: [id number] EXP DATE: 2023-12-11 QC: ACCEPTABLE Social History Type Status Start Date End Date Code Code Syst em Smoking History Never smoker (Never Smoked) 188363044 SNOMED CT Sex Female Sexual Orientation Straight or Heterosexual 88339049 SNOMED CT Gender Identity Female [id number] [address] Vital Signs Vital Sign Value Unit [place] Value [place] Unit Date/Time Recent/Initial? Code Code System Body Mass Index 24.50 kg/m2 02/20/2023 18:36 Initial 61303 -5 LOINC Body Mass Index Percentile 77 % 02/20/2023 18:36 Initial 36607 -9 LOINC Systolic Blood Pressure 112 mm[Hg] 02/20/2023 18:36 Initial 8480- 6 LOINC Diastolic Blood Pressure 70 mm[Hg] 02/20/2023 18:36 Initial 8462- 4 [facility] Body Surface Area 1.85 m2 02/20/2023 18:36 Initial 3140- 1 LOINC Height 171.450 0 cm 67.50 in 02/20/2023 18:36 Initial 8302- 2 INC O2 Saturation 98 % 2022 18:36 Initial 45418 -5 [facility] Pulse 91.0 /min 02/20/2023 18:36 Initial 8867- 4 [facility] Temperature 37.2 Antonella 98.9 F 02/21/20 18:36 Initial 8310- 5 [facility] Weight 72.03 kg 158.80 lbs 02/20/2023 18:36 Initial 61538 -7 [facility] Medications Medication Start Date End Date Route Frequency Dose Code Code System Medication Instructions Home Meds Medrol Dosepak 4MG Oral Tablet 12/25/2022 02/20/2023 By Mouth As Directed 1 PACK 442856 RxNorm 1 PACK By Mouth As Directed Methocarbamol 750MG Oral Tablet 12/25/2022 03/12/2023 By Mouth As needed every 8 hr 087849 RxNorm 1-2 TABLET By Mouth As needed every 8 hr Anel-28 30 MCG-0.15 MG; NA Oral Tablet 12/25/2022 03/12/2023 By Mouth Daily 1 TABLET 201613 RxNorm 1 TABLET By Mouth Daily Macrobid 100MG Oral Capsule 02/20/2023 03/12/2023 By mouth Twice a day 1 TABLET 605877 RxNorm 1 TABLET By mouth Twice a day X 7 DAYS Pyridium 100MG Oral Tablet 02/20/2023 03/12/2023 By mouth As needed every 8 hr 1 TABLET 9406985 RxNorm 1 TABLET By mouth As needed every 8 hr for urinary pain ZyrTEC Allergy 10MG Oral Capsule, Liquid Filled 03/12/2023 Unknown By Mouth Daily 1 CAPSULE 1572241 RxNorm 1 CAPSULE By Mouth Daily Fluticasone 0.05MG/1Actuati on Nasal [place] 03/12/2023 Unknown Nasal Daily 1 Sprays 9327235 RxNorm 1 Spr ays Nasal Daily Azithromycin 500MG Oral Tablet 06/04/2024 Unknown By Mouth x1 NOW 2 TABLET 537842 RxNorm 2 TABLET By Mouth x1 NOW [...] Status Code Code System SEASONAL ALLERGY active 705269527 SNO MED-CT FAMILY PLANNING 06/20/2020 active 030690778 SNO MED-CT BITE OF INSECT active 147941023 SNOME D-CT ES OF VAGINA 08/07/2022 active 03876645 S NOMED-CT MENORRHAGIA active 809988543 SNOMED-C T PAINFUL NECK active 32909871 SNOMED- CT ADHD OF CHILDHOOD 07/22/2019 resolved 469799873 S NOMED-CT SEASONAL NASAL ALLERGY 07/22/2019 resolved 820677 001 SNOMED-CT HISTORY OF CHICKENPOX 07/22/2019 resolved 7760683 08 SNOMED-CT Allergies and Adverse Reactions Allergy Substance Reaction Severity Start Date Concern Status Co de Code System Active No Known Drug Allergies Active 761217762 SNOMED-CT Plan of Treatment Description Due Date Details Instructions DEPRESSION SCREENING DUE 06/20/2021 Future Order Description Future Order Date Futu re Order Loinc: CULTURE URINE 02/20/2023 LOINC: 630-4 TRICHOMONAS VAGINALIS FEMALE RNA QUAL 3 LOINC: 22095-7 GC/CHLAMYDIA PCR [place] 02/20/2023 LOINC: 448 06-8 CULTURE YEAST, WITH IDENTIFICATION 02/20/2023 LOINC: 54976-4 BACTERIAL VAGINOSIS RAPID TEST 02/20/2023 LOINC: 6410-5 Encounters Encounter Diagnosis Start Date Code Code Sys tem Urinary tract infectious disease 02/20/2023 78847304 SNOMED-CT Personal Care Team Section Progress Notes [facility] 02/20/2023 19:27 Admission Date/Time: 02/20/2023 [...] up. This examination was transcribed using the [employer] voice recognition system without human weigher packing. In an effort to expedite patient care, this report has not been adjusted for typographical, or medical or syntax by a trained medical detail representative. Allergy Table Allergen Type Reaction seasonal allergies [...] NEGATIVE 02/20/2023 18:38 02/20/2023 18:43 final LOT#: [id number] 02/20/2023 18:38 02/20/2023 18:43 final EXP DATE: [...]
--- OUTSIDE RECORDS SUMMARY | 2025-06-03 00:48 | XMS_ITS ---
Author Organization Unknown Address [address] [place] [address] [phone] Phone Care Team Providers Care Manager Of Hospital Name Role Phone Blanco Gallego Attending Unavailable [...] em Smoking History Never smoker (Never Smoked) 015649925 SNOMED CT Sex Female Sexual Orientation Straight or Heterosexual 11946428 SNOMED CT Gender Identity Female [id number] [address] Vital Signs Vital Sign Value Unit [place] Value [place] Unit Date/Time Recent/Initial? Code Code System Body Mass Index 21.85 kg/m2 06/07/2022 14:23 Initial 10194 -5 [facility] Body Mass Index Percentile 57 % 06/07/2022 14:23 Initial 80447 -9 [facility] Systolic Blood Pressure 118 mm[Hg] 06/07/2022 14:23 Initial 8480- 6 [facility] Diastolic Blood Pressure 72 mm[Hg] 06/07/2022 14:23 Initial 8462- 4 [facility] Body Surface Area 1.75 m2 06/07/2022 14:23 Initial 3140- 1 [facility] Height 171.450 0 cm 67.50 in 06/07/2022 14:23 Initial 8302- 2 [facility] O2 Saturation 99 % 2021 14:23 Initial 67246 -5 [facility] Pulse 107.0 /min 06/07/2022 14:23 Initial 8867- 4 [facility] Respiration 20 /min 06/07/20 14:23 Initial 9279- 1 [facility] Temperature 36.6 Antonella 97.8 F 06/07/20 14:23 Initial 8310- 5 [facility] Weight 64.23 kg 141.60 lbs 06/07/2022 14:23 Initial 46186 -7 [facility] Medications Medication Start Date End Date Route Frequency Dose Code Code System Medication Instructions Home Meds predniSONE 50MG Oral Tablet 06/07/2022 07/31/2022 By Mouth Daily 1 TABLET 535344 RxNorm 1 TABLET By Mouth Daily 30MCG-0.15MG-NA Oral Tablet 06/07/2022 09/12/2022 By Mouth Daily 1 TABLET 016833 RxNorm 1 TABLET By Mouth Daily Diflucan 150MG Oral Tablet 08/07/2022 09/12/2022 By Mouth x1 NOW 1 TABLET 821738 RxNorm 1 TABLET By Mouth x1 NOW FOR MARCH REPEAT IN 72 HOURS Radha 28 3MG-0.02MG Oral Tablet 09/12/2022 12/25/2022 By Mouth Once a day 1 TABLET RxNorm 1 TABLET By Mouth Once a day Medrol Dosepak 4MG Oral Tablet 12/25/2022 02/20/2023 By Mouth As Directed 1 PACK 775701 RxNorm 1 PACK By Mouth As Directed Methocarbamol 750MG Oral Tablet 12/25/2022 03/12/2023 By Mouth As needed every 8 hr 115385 RxNorm 1-2 TABLET By Mouth As needed every 8 hr Anel-28 30 MCG-0.15 MG; NA Oral Tablet 12/25/2022 03/12/2023 By Mouth Daily 1 TABLET 603261 RxNorm 1 TABLET By Mouth Daily Macrobid 100MG Oral Capsule 02/20/2023 03/12/2023 By mouth Twice a day 1 TABLET 027340 RxNorm 1 TABLET By mouth Twice a day X 7 DAYS Pyridium 100MG Oral Tablet 02/20/2023 03/12/2023 By mouth As needed every 8 hr 1 TABLET 2132603 RxNorm 1 TABLET By mouth As needed every 8 hr for urinary pain ZyrTEC Allergy 10MG Oral Capsule, Liquid Filled 03/12/2023 Unknown By Mouth Daily 1 CAPSULE 9162671 RxNorm 1 CAPSULE By Mouth Daily Fluticasone 0.05MG/1Actuati on Nasal [place] 03/12/2023 Unknown Nasal Daily 1 Sprays 9655448 RxNorm 1 Spr ays Nasal Daily Azithromycin 500MG Oral Tablet 06/04/2024 Unknown By Mouth x1 NOW 2 TABLET 772024 RxNorm 2 TABLET By Mouth x1 NOW [...] Status Code Code System SEASONAL ALLERGY active 159597151 SNO MED-CT FAMILY PLANNING 06/20/2020 active 352853537 SNO MED-CT BITE OF INSECT active 983938270 SNOME D-CT ES OF VAGINA 08/07/2022 active 82283644 S NOMED-CT MENORRHAGIA active 358588361 SNOMED-C T PAINFUL NECK active 86484897 SNOMED- CT ADHD OF CHILDHOOD 07/22/2019 resolved 489794638 S NOMED-CT SEASONAL NASAL ALLERGY 07/22/2019 resolved 737453 001 SNOMED-CT HISTORY OF CHICKENPOX 07/22/2019 resolved 5569703 08 SNOMED-CT Allergies and Adverse Reactions Allergy Substance Reaction Severity Start Date Concern Status Co de Code System Active No Known Drug Allergies Active 939399080 SNOMED-CT Plan of Treatment Description Due Date Details Instructions DEPRESSION SCREENING DUE 06/20/2021 Encounters Encounter Diagnosis Start Date Code Code Sys tem Well child visit 06/07/2022 753958404 SNOMED-CT Personal Care Team Section Progress Notes [facility] 06/07/2022 15:22 All Demographics Patient Name Age Sex Visit Number Admission Date/Time Attending Physician Date of Service Room and Bed Emergency Contact NELA MANZANARES 2005 16 years Female [id number] 06/07/2022 14:22 Julián Simeon 06/07/2022 402 06/07/2022 14:25 Accompanied By: Parent Parent, mother X. Parent, father Guardian Relative resident services supervisor Caregiver Family Protective services Friend Healthcare provider Law enforcement Sound Recording Technician / EMS Spouse / SO Other: Preferred Language: Stateless. Vital Signs: This Visit Date/Time BP (mm/Hg) [...] environment active No Known Drug Allergies medication [id number] Nutrition X. Daily fruits and vegetables Iron [...] Record reviewed Up-to-date for age Administered Today: [place] Screening Depression Screening (annually) Screening Tool Used: [...] year Next Visit: Referral to: 16 y/o [facility] - Anticipatory guidance and bright futures discussed. Discussed control methods and will start patient on Anel. Patient to notify office if she is having any side effects. Patient states she is having anxiety, offered multiple options for managing anxiety, patient declines at this time.
--- OUTSIDE RECORDS SUMMARY | 2025-06-03 00:48 | XMS_ITS ---
Author Organization Unknown Address [address] [place] [address] [phone] Phone Care Team Providers Care Vrt Mechanic Name Role Phone Blanco Gallego Attending Unavailable [...] em Smoking History Never smoker (Never Smoked) 040429075 SNOMED CT Sex Female Sexual Orientation Straight or Heterosexual 92782434 SNOMED CT Gender Identity Female [id number] [address] Medications Medication Start Date End Date Route Frequency Dose Code Code System Medication Instructions Home Meds Medrol Dosepak 4MG Oral Tablet 12/25/2022 02/20/2023 By Mouth As Directed 1 PACK 100797 RxNorm 1 PACK By Mouth As Directed Methocarbamol 750MG Oral Tablet 12/25/2022 03/12/2023 By Mouth As needed every 8 hr 269656 RxNorm 1-2 TABLET By Mouth As needed every 8 hr [place]-28 30 MCG-0.15 MG; NA Oral Tablet 12/25/2022 03/12/2023 By Mouth Daily 1 TABLET 235689 RxNorm 1 TABLET By Mouth Daily Macrobid 100MG Oral Capsule 02/20/2023 03/12/2023 By mouth Twice a day 1 TABLET 868707 RxNorm 1 TABLET By mouth Twice a day X 7 DAYS Pyridium 100MG Oral Tablet 02/20/2023 03/12/2023 By mouth As needed every 8 hr 1 TABLET 9208377 RxNorm 1 TABLET By mouth As needed every 8 hr for urinary pain ZyrTEC Allergy 10MG Oral Capsule, Liquid Filled 03/12/2023 Unknown By Mouth Daily 1 CAPSULE 4409938 RxNorm 1 CAPSULE By Mouth Daily Fluticasone 0.05MG/1Actuati on Nasal [place] 03/12/2023 Unknown Nasal Daily 1 Sprays 6390329 RxNorm 1 Spr ays Nasal Daily Azithromycin 500MG Oral Tablet 06/04/2024 Unknown By Mouth x1 NOW 2 TABLET 534208 RxNorm 2 TABLET By Mouth x1 NOW [...] Status Code Code System SEASONAL ALLERGY active 117177638 SNO MED-CT FAMILY PLANNING 06/20/2020 active 097685978 SNO MED-CT BITE OF INSECT active 267191291 SNOME D-CT ES OF VAGINA 08/07/2022 active 63472787 S NOMED-CT MENORRHAGIA active 951775825 SNOMED-C T PAINFUL NECK active 47024415 SNOMED- CT ADHD OF CHILDHOOD 07/22/2019 resolved 479517253 S NOMED-CT SEASONAL NASAL ALLERGY 07/22/2019 resolved 523367 001 SNOMED-CT HISTORY OF CHICKENPOX 07/22/2019 resolved 0299712 08 SNOMED-CT Allergies and Adverse Reactions Allergy Substance Reaction Severity Start Date Concern Status Co de Code System Active No Known Drug Allergies Active 424608103 SNOMED-CT Plan of Treatment Description Due Date Details Instructions DEPRESSION SCREENING DUE 06/20/2021 Personal Care Team Section
--- OUTSIDE RECORDS SUMMARY | 2025-06-03 00:49 | XMS_ITS ---
Author Organization Unknown Address [address], [place] [phone] Phone Care Team Providers Care Pmo Manager Name Role Phone Shahanacristian Opal Attending Unavailable Results BACTERIAL VAGINOSIS RAPID TE ST - Collect Date/Time: 07/31/2022 17:20 [facility] ID: [id number] [address], [place], [phone] LOINC: 6410-5 Test Value Unit Reference Range Code Code System Flag BACTERIAL VAGINOSIS NEGATIVE NORMAL: NEGATIVE CULTURE YEAST, WITH IDENTIFI CATION - Collect Date/Time: 07/31/2022 17:19 [facility] ID: [id number] [address], [place], [phone] LOINC: 5048-4 Test Value Unit Reference Range Code Code System Flag SOURCE: VAGINAL STATUS: FINAL ISOLATE 1: Margoth albicans A CULTURE: Culture in progress TRICHOMONAS VAGINALIS FEMALE RNA QUAL - Collect Date/Time: 07/31/2022 17:19 [facility] ID: [id number] [address], [place], [phone] LOINC: 24879-4 Test Value Unit Reference Range Code Code System Flag TRICHOMONAS VAGINALISRNA, QL TMA NOT DETECTED NOT DETECTED CHLAMYDIA/GC URINE RNA, TMA APTIMA - Collect Date/Time: 07/31/2022 17:19 [facility] ID: [id number] [address], [place], [phone] LOINC: 5048-4 Test Value Unit Reference Range Code Code System Flag CHLAMYDIA TRACHOMATISRNA, TMA, UROGENITAL NOT DETECTED NOT DETECTED NEISSERIA GONORRHOEAERNA, TMA, UROGENITAL NOT DETECTED NOT DETECTED Social History Type Status Start Date End Date Code Code Syst em Smoking History Never smoker (Never Smoked) 204875619 SNOMED CT Sex Female Sexual Orientation Straight or Heterosexual 23617303 SNOMED CT Gender Identity Female [id number] [address] Medications Medication Start Date End Date Route Frequency Dose Code Code System Medication Instructions Home Meds Anel-28 30MCG-0.15MG-NA Oral Tablet 06/07/2022 09/12/2022 By Mouth Daily 1 TABLET 888959 RxNorm 1 TABLET By Mouth Daily Diflucan 150MG Oral Tablet 08/07/2022 09/12/2022 By Mouth x1 NOW 1 TABLET 311848 RxNorm 1 TABLET By Mouth x1 NOW FOR MARCH REPEAT IN 72 HOURS Radha 28 3MG-0.02MG Oral Tablet 09/12/2022 12/25/2022 By Mouth Once a day 1 TABLET RxNorm 1 TABLET By Mouth Once a day Medrol Dosepak 4MG Oral Tablet 12/25/2022 02/20/2023 By Mouth As Directed 1 PACK 991406 RxNorm 1 PACK By Mouth As Directed Methocarbamol 750MG Oral Tablet 12/25/2022 03/12/2023 By Mouth As needed every 8 hr 436077 RxNorm 1-2 TABLET By Mouth As needed every 8 hr [place]-28 30 MCG-0.15 MG; NA Oral Tablet 12/25/2022 03/12/2023 By Mouth Daily 1 TABLET 497490 RxNorm 1 TABLET By Mouth Daily Macrobid 100MG Oral Capsule 02/20/2023 03/12/2023 By mouth Twice a day 1 TABLET 046604 RxNorm 1 TABLET By mouth Twice a day X 7 DAYS Pyridium 100MG Oral Tablet 02/20/2023 03/12/2023 By mouth As needed every 8 hr 1 TABLET 5916719 RxNorm 1 TABLET By mouth As needed every 8 hr for urinary pain ZyrTEC Allergy 10MG Oral Capsule, Liquid Filled 03/12/2023 Unknown By Mouth Daily 1 CAPSULE 5434282 RxNorm 1 CAPSULE By Mouth Daily Fluticasone 0.05MG/1Actuatio n Nasal [place] 03/12/2023 Unknown Nasal Daily 1 Sprays 0490544 RxNorm 1 Spra ys Nasal Daily Azithromycin 500MG Oral Tablet 06/04/2024 Unknown By Mouth x1 NOW 2 TABLET 861849 RxNorm 2 TABLET By Mouth x1 NOW [...] Status Code Code System SEASONAL ALLERGY active 139271081 SNO MED-CT FAMILY PLANNING 06/20/2020 active 665887373 SNO MED-CT BITE OF INSECT active 581783765 SNOME D-CT MARGOTH OF VAGINA 08/07/2022 active 81196055 S NOMED-CT MENORRHAGIA active 455349410 SNOMED-C T PAINFUL NECK active 39586684 SNOMED- CT ADHD OF CHILDHOOD 07/22/2019 resolved 112562886 S NOMED-CT SEASONAL NASAL ALLERGY 07/22/2019 resolved 862885 001 SNOMED-CT HISTORY OF CHICKENPOX 07/22/2019 resolved 4475140 08 SNOMED-CT Allergies and Adverse Reactions Allergy Substance Reaction Severity Start Date Concern Status Co de Code System Active No Known Drug Allergies Active 189785108 SNOMED-CT Plan of Treatment Description Due Date Details Instructions DEPRESSION SCREENING DUE 06/20/2021 Encounters Encounter Diagnosis Start Date Code Code Sys tem Noninflammatory disorder of the vagina 07/31/2022 22 248313 SNOMED-CT Personal Care Team Section
--- OUTSIDE RECORDS SUMMARY | 2025-06-03 00:49 | XMS_ITS ---
Author Organization Unknown Address [address] [place] [address] [phone] Phone Care Team Providers Care Pin Pusher Name Role Phone TABATHA RODGERS Attending Unavailable [...] em Smoking History Never smoker (Never Smoked) 835871384 SNOMED CT Sex Female Sexual Orientation Straight or Heterosexual 54826001 SNOMED CT Gender Identity Female 72122296884092 [address] Medications Medication Start Date End Date Route Frequency Dose Code Code System Medication Instructions Home Meds predniSONE 50MG Oral Tablet 06/07/2022 07/31/2022 By Mouth Daily 1 TABLET 563918 RxNorm 1 TABLET By Mouth Daily Anel-28 30MCG-0.15MG-NA Oral Tablet 06/07/2022 09/12/2022 By Mouth Daily 1 TABLET 346038 RxNorm 1 TABLET By Mouth Daily Diflucan 150MG Oral Tablet 08/07/2022 09/12/2022 By Mouth x1 NOW 1 TABLET 063732 RxNorm 1 TABLET By Mouth x1 NOW FOR MARCH REPEAT IN 72 HOURS Radha 28 3MG-0.02MG Oral Tablet 09/12/2022 12/25/2022 By Mouth Once a day 1 TABLET RxNorm 1 TABLET By Mouth Once a day Medrol Dosepak 4MG Oral Tablet 12/25/2022 02/20/2023 By Mouth As Directed 1 PACK 183763 RxNorm 1 PACK By Mouth As Directed Methocarbamol 750MG Oral Tablet 12/25/2022 03/12/2023 By Mouth As needed every 8 hr 447508 RxNorm 1-2 TABLET By Mouth As needed every 8 hr Anel-28 30 MCG-0.15 MG; NA Oral Tablet 12/25/2022 03/12/2023 By Mouth Daily 1 TABLET 648323 RxNorm 1 TABLET By Mouth Daily Macrobid 100MG Oral Capsule 02/20/2023 03/12/2023 By mouth Twice a day 1 TABLET 892166 RxNorm 1 TABLET By mouth Twice a day X 7 DAYS Pyridium 100MG Oral Tablet 02/20/2023 03/12/2023 By mouth As needed every 8 hr 1 TABLET 4403361 RxNorm 1 TABLET By mouth As needed every 8 hr for urinary pain ZyrTEC Allergy 10MG Oral Capsule, Liquid Filled 03/12/2023 Unknown By Mouth Daily 1 CAPSULE 1053470 RxNorm 1 CAPSULE By Mouth Daily Fluticasone 0.05MG/1Actuati on Nasal [place] 03/12/2023 Unknown Nasal Daily 1 Sprays 8948999 RxNorm 1 Spr ays Nasal Daily Azithromycin 500MG Oral Tablet 06/04/2024 Unknown By Mouth x1 NOW 2 TABLET 771330 RxNorm 2 TABLET By Mouth x1 NOW [...] Status Code Code System SEASONAL ALLERGY active 763163113 SNO MED-CT FAMILY PLANNING 06/20/2020 active 238842235 SNO MED-CT BITE OF INSECT active 129604275 SNOME D-CT ES OF VAGINA 08/07/2022 active 03090452 S NOMED-CT MENORRHAGIA active 498678673 SNOMED-C T PAINFUL NECK active 00697380 SNOMED- CT ADHD OF CHILDHOOD 07/22/2019 resolved 713254887 S NOMED-CT SEASONAL NASAL ALLERGY 07/22/2019 resolved 605803 001 SNOMED-CT HISTORY OF CHICKENPOX 07/22/2019 resolved 3922346 08 SNOMED-CT Allergies and Adverse Reactions Allergy Substance Reaction Severity Start Date Concern Status Co de Code System Active No Known Drug Allergies Active 563371431 SNOMED-CT Plan of Treatment Description Due Date Details Instructions DEPRESSION SCREENING DUE 06/20/2021 Personal Care Team Section
--- OUTSIDE RECORDS SUMMARY | 2025-06-03 00:49 | XMS_ITS ---
Author Organization Unknown Address [address] [place] [phone] Phone Care Team Providers Care Cleat Thrower Name Role Phone VIRAL Brody Attending Unavailable [...] MICR O - Collect Date/Time: 06/03/2024 15:21 [facility] ID: [id number] [address] [place] [address], [phone] LOINC: Test Value Unit Reference Range Code [...] em Smoking History Never smoker (Never Smoked) 922888552 SNOMED CT Sex Female Sexual Orientation Straight or Heterosexual 67711418 SNOMED CT Gender Identity Female [id number] [address] Vital Signs Vital Sign Value Unit [place] Value [place] Unit Date/Time Recent/Initial? Code Code System Body Mass Index 25.85 kg/m2 06/03/2024 14:31 Initial 55671 -5 [facility] Body Mass Index Percentile 82 % 06/03/2024 14:31 Initial 41768 -9 LOINC Systolic Blood Pressure 118 mm[Hg] [...] 06/03/2024 14:31 Initial 8302- 2 [facility] O2 Saturation 100 % 2023 14:31 Initial 10913 -5 [facility] Pulse 93.0 /min 06/03/2024 14:31 Initial 8867- 4 [facility] Temperature 36.7 Antonella 98.0 F 06/03/20 14:31 Initial 8310- 5 [facility] Weight 77.11 kg 170.00 lbs 06/03/2024 14:31 Initial 34139 -7 [facility] Medications Medication Start Date End Date Route Frequency Dose Code Code System Medication Instructions Home Meds ZyrTEC Allergy 10MG Oral Capsule, Liquid Filled 03/12/2023 Unknown By Mouth Daily 1 CAPSULE 0290109 RxNorm 1 CAPSULE By Mouth Daily Fluticasone 0.05MG/1Actuatio n Nasal [place] 03/12/2023 Unknown Nasal Daily 1 Sprays 5193080 RxNorm 1 Spra ys Nasal Daily Azithromycin 500MG Oral Tablet 06/04/2024 Unknown By Mouth x1 NOW 2 TABLET 065623 RxNorm 2 TABLET By Mouth x1 NOW [...] sex practices. 3. -Keep follow up with [facility] for next week. -Given handouts for [...] up. This examination was transcribed using the [email or web address] voice recognition system without a human account underwriter. To expedite patient care, this report has not been adjusted for typographical, or medical, or syntax by a trained medical research scientist. Hospital Discharge Instructions Should you have any questions prior to discharge, please contact a member of your healthcare team. If you have left the hospital and have any questions, please contact your primary care physician. Reason For Referral No Data Found Problems Problem Start Date Resolved Date Status Code Code System SEASONAL ALLERGY active 179895886 SNO MED-CT FAMILY PLANNING 06/20/2020 active 805816300 SNO MED-CT BITE OF INSECT active 607213369 SNOME D-CT ES OF VAGINA 08/07/2022 active 92188376 S NOMED-CT MENORRHAGIA active 466026764 SNOMED-C T PAINFUL NECK active 71161409 SNOMED- CT ADHD OF CHILDHOOD 07/22/2019 resolved 336888711 S NOMED-CT SEASONAL NASAL ALLERGY 07/22/2019 resolved 254314 001 SNOMED-CT HISTORY OF CHICKENPOX 07/22/2019 resolved 1337479 08 SNOMED-CT Allergies and Adverse Reactions Allergy Substance Reaction Severity Start Date Concern Status Co de Code System Active No Known Drug Allergies Active 794161775 SNOMED-CT Plan of Treatment Description Due Date Details Instructions DEPRESSION SCREENING DUE 06/20/2021 Future Order Description Future Order Date Futu re Order Loinc: TRICHOMONAS VAGINALIS FEMALE RNA QUAL LOINC: 46656-3 GC PCR [facility] 06/03/2024 LOINC: 34628-0 CHLAMYDIA PCR [facility] 06/03/2024 LOINC: 97398- 5 BACTERIAL VAGINOSIS RAPID TEST 06/03/2024 LOINC: 6410-5 CULTURE YEAST, WITH IDENTIFICATION 06/03/2024 LOINC: 07109-4 Encounters Encounter Diagnosis Start Date Code Code Sys tem Acute vaginitis 06/03/2024 18078828 SNOMED-CT Personal Care Team Section Progress Notes [facility] 06/03/2024 15:50 Date of Service: 06/03/2024 [facility] Tisha Stevenson, FINAL COAT SPRAYER-Sylvia Chief Complaint: LUMP ON STOMACH History of Present Illness: Age: 18 years The patient is a 18-year-old female presenting to [facility] today for evaluation of right upper side abdominal lump and vaginal discharge with odor and clear/white discharge. She reports she is currently 4-6 weeks with LMP at the beginning of April. She has an appointment scheduled with [facility] for an OBGYN next week. She [...] sex practices. 3. -Keep follow up with [facility] for next week. -Given handouts for [...] up. This examination was transcribed using the [email or web address] voice recognition system without a human account underwriter. To expedite patient care, this report has not been adjusted for typographical, or medical, or syntax by a trained medical research scientist. Meds Given This Visit: Meds ordered and administered this visit: No Current Medications Available Discharge Med List: Discharge Medications Medication Special Instructions Start Date Prescribing Fluticasone 0.05MG/1Actuation Nasal [place] 1 Sprays Nasal Daily 03/12/2023 Blanco Gallego ZyrTEC Allergy 10MG Oral Capsule, Liquid Filled 1 CAPSULE By Mouth Daily 03/12/2023 Blanco Gallego
--- OUTSIDE RECORDS SUMMARY | 2025-06-03 00:49 | XMS_ITS ---
Author Organization Unknown Address [address], [place] [phone] Phone Care Team Providers Care Crm Coordinator Name Role Phone JOSUE FULTON EDMOND Attending Unavailable Results CULTURE YEAST, WITH IDENTIFI CATION - Collect Date/Time: 02/20/2023 18:42 [facility] ID: [id number] [address], [place], [phone] LOINC: 5048-4 Test Value Unit Reference Range Code Code System Flag SOURCE: VAGINAL STATUS: FINAL ISOLATE 1: Margoth albicans A TRICHOMONAS VAGINALIS FEMALE RNA QUAL - Collect Date/Time: 02/20/2023 18:40 [facility] ID: [id number] [address], [place], [phone] LOINC: 27243-1 Test Value Unit Reference Range Code Code System Flag TRICHOMONAS VAGINALISRNA, QL TMA NOT DETECTED NOT DETECTED GC/CHLAMYDIA PCR [facility] ct Date/Time: 02/20/2023 18:40 [facility] ID: [id number] [address], [place], [phone] LOINC: 5048-4 Test Value Unit Reference Range Code Code System Flag GONORRHEA PCR NOT DETECTED NORMAL: NOT DETECTED CHLAMYDIA PCR NOT DETECTED NORMAL: NOT DETECTED BACTERIAL VAGINOSIS RAPID TE ST - Collect Date/Time: 02/20/2023 18:40 [facility] ID: [id number] [address], [place], [phone] LOINC: 6410-5 Test Value Unit Reference Range Code Code System Flag BACTERIAL VAGINOSIS NEGATIVE NORMAL: NEGATIVE Social History Type Status Start Date End Date Code Code Syst em Smoking History Never smoker (Never Smoked) 023244622 SNOMED CT Sex Female Sexual Orientation Straight or Heterosexual 53294958 SNOMED CT Gender Identity Female 79053214761371 [address] Medications Medication Start Date End Date Route Frequency Dose Code Code System Medication Instructions Home Meds Methocarbamol 750MG Oral Tablet 12/25/2022 03/12/2023 By Mouth As needed every 8 hr 440024 RxNorm 1-2 TABLET By Mouth As needed every 8 hr Bethany-28 30 MCG-0.15 MG; NA Oral Tablet 12/25/2022 03/12/2023 By Mouth Daily 1 TABLET 595567 RxNorm 1 TABLET By Mouth Daily Macrobid 100MG Oral Capsule 02/20/2023 03/12/2023 By mouth Twice a day 1 TABLET 443162 RxNorm 1 TABLET By mouth Twice a day X 7 DAYS Pyridium 100MG Oral Tablet 02/20/2023 03/12/2023 By mouth As needed every 8 hr 1 TABLET 9530670 RxNorm 1 TABLET By mouth As needed every 8 hr for urinary pain ZyrTEC Allergy 10MG Oral Capsule, Liquid Filled 03/12/2023 Unknown By Mouth Daily 1 CAPSULE 2446696 RxNorm 1 CAPSULE By Mouth Daily Fluticasone 0.05MG/1Actuati on Nasal [place] 03/12/2023 Unknown Nasal Daily 1 Sprays 3107261 RxNorm 1 Spr ays Nasal Daily Azithromycin 500MG Oral Tablet 06/04/2024 Unknown By Mouth x1 NOW 2 TABLET 493623 RxNorm 2 TABLET By Mouth x1 NOW [...] Status Code Code System SEASONAL ALLERGY active 690598151 SNO MED-CT FAMILY PLANNING 06/20/2020 active 040584548 SNO MED-CT BITE OF INSECT active 313497155 SNOME D-CT MARGOTH OF VAGINA 08/07/2022 active 46106988 S NOMED-CT MENORRHAGIA active 870151424 SNOMED-C T PAINFUL NECK active 32823165 SNOMED- CT ADHD OF CHILDHOOD 07/22/2019 resolved 950817933 S NOMED-CT SEASONAL NASAL ALLERGY 07/22/2019 resolved 560166 001 SNOMED-CT HISTORY OF CHICKENPOX 07/22/2019 resolved 4583813 08 SNOMED-CT Allergies and Adverse Reactions Allergy Substance Reaction Severity Start Date Concern Status Co de Code System Active No Known Drug Allergies Active 461097777 SNOMED-CT Plan of Treatment Description Due Date Details Instructions DEPRESSION SCREENING DUE 06/20/2021 Encounters Encounter Diagnosis Start Date Code Code Sys tem Dysuria 02/20/2023 79185517 SNOMED-CT Personal Care Team Section
--- OUTSIDE RECORDS SUMMARY | 2025-06-03 00:50 | XMS_ITS ---
Author Organization Unknown Address [address] [place] [phone] Phone Care Team Providers Care Principal Secretary Name Role Phone TABATHA RODGERS Attending Unavailable [...] MICR O - Collect Date/Time: 07/31/2022 17:14 [facility] ID: [id number] [address] [place] [address], [phone] LOINC: Test Value Unit Reference Range Code [...] TEST - Colle ct Date/Time: 07/31/2022 17:12 [facility] ID: [id number] [address] [place] [address], [phone] LOINC: Test Value Unit Reference Range Code Code System Flag TEST PERFORMED URINE PREG (URINE) NEGATIVE LOT#: [id number] EXP DATE: 2023-10-10 QC: ACCEPTABLE Social History Type Status Start Date End Date Code Code Syst em Smoking History Never smoker (Never Smoked) 244924154 SNOMED CT Sex Female Sexual Orientation Straight or Heterosexual 06429303 SNOMED CT Gender Identity Female 58413392240715 [address] Vital Signs Vital Sign Value Unit Jack Value Jack Unit Date/Time Recent/Initial? Code Code System Body Mass Index 23.34 kg/m2 07/31/2022 16:59 Initial 52231 -5 LOINC Body Mass Index Percentile 71 % 07/31/2022 16:59 Initial 94950 -9 LOINC Systolic Blood Pressure 120 mm[Hg] 07/31/2022 16:59 Initial 8480- 6 LOINC Diastolic Blood Pressure 80 mm[Hg] 07/31/2022 16:59 Initial 8462- 4 [facility] Body Surface Area 1.79 m2 07/31/2022 16:59 Initial 3140- 1 [facility] Height 170.180 0 cm 67.00 in 07/31/2022 16:59 Initial 8302- 2 [facility] O2 Saturation 98 % 2021 16:59 Initial 28884 -5 [facility] Pulse 92.0 /min 07/31/2022 16:59 Initial 8867- 4 [facility] Temperature 36.8 Antonella 98.2 F 07/31/20 16:59 Initial 8310- 5 [facility] Weight 67.59 kg 149.00 lbs 07/31/2022 16:59 Initial 64123 -7 [facility] Medications Medication Start Date End Date Route Frequency Dose Code Code System Medication Instructions Home Meds predniSONE 50MG Oral Tablet 06/07/2022 07/31/2022 By Mouth Daily 1 TABLET 723199 RxNorm 1 TABLET By Mouth Daily Anel-28 30MCG-0.15MG-NA Oral Tablet 06/07/2022 09/12/2022 By Mouth Daily 1 TABLET 210719 RxNorm 1 TABLET By Mouth Daily Diflucan [...] 02/20/2023 By Mouth As Directed 1 PACK 060303 RxNorm 1 PACK By Mouth As Directed Methocarbamol 750MG Oral Tablet 12/25/2022 03/12/2023 By Mouth As needed every 8 hr 825638 RxNorm 1-2 TABLET By Mouth As needed every 8 hr Anel-28 30 MCG-0.15 MG; NA Oral Tablet 12/25/2022 03/12/2023 By Mouth Daily 1 TABLET 851463 RxNorm 1 TABLET By Mouth Daily Macrobid 100MG Oral Capsule 02/20/2023 03/12/2023 By mouth Twice a day 1 TABLET 540485 RxNorm 1 TABLET By mouth Twice a day X 7 DAYS Pyridium 100MG Oral Tablet 02/20/2023 03/12/2023 By mouth As needed every 8 hr 1 TABLET 1555977 RxNorm 1 TABLET By mouth As needed every 8 hr for urinary pain ZyrTEC Allergy 10MG Oral Capsule, Liquid Filled 03/12/2023 Unknown By Mouth Daily 1 CAPSULE 9745483 RxNorm 1 CAPSULE By Mouth Daily Fluticasone 0.05MG/1Actuati on Nasal [place] 03/12/2023 Unknown Nasal Daily 1 Sprays 6513955 RxNorm 1 Spr ays Nasal Daily Azithromycin 500MG Oral Tablet 06/04/2024 Unknown By Mouth x1 NOW 2 TABLET 465958 RxNorm 2 TABLET By Mouth x1 NOW [...] Status Code Code System SEASONAL ALLERGY active 013632685 SNO MED-CT FAMILY PLANNING 06/20/2020 active 287599805 SNO MED-CT BITE OF INSECT active 358603128 SNOME D-CT ES OF VAGINA 08/07/2022 active 05441241 S NOMED-CT MENORRHAGIA active 555869293 SNOMED-C T PAINFUL NECK active 17179982 SNOMED- CT ADHD OF CHILDHOOD 07/22/2019 resolved 813528481 S NOMED-CT SEASONAL NASAL ALLERGY 07/22/2019 resolved 497272 001 SNOMED-CT HISTORY OF CHICKENPOX 07/22/2019 resolved 3817292 08 SNOMED-CT Allergies and Adverse Reactions Allergy Substance Reaction Severity Start Date Concern Status Co de Code System Active No Known Drug Allergies Active 711584127 SNOMED-CT Plan of Treatment Description Due Date Details Instructions DEPRESSION SCREENING DUE 06/20/2021 Future Order Description Future Order Date Futu re Order Loinc: BACTERIAL VAGINOSIS RAPID TEST 07/31/2022 LOINC: 6410-5 CULTURE YEAST, WITH IDENTIFICATION 07/31/2022 LOINC: 52414-8 TRICHOMONAS VAGINALIS FEMALE RNA QUAL LOINC: 46211-5 CHLAMYDIA/GC URINE RNA, TMA APTIMA 07/31/2022 LOINC: 5048-4 CULTURE URINE 07/31/2022 LOINC: 630-4 Encounters Encounter Diagnosis Start Date Code Code Sys tem Acute vaginitis 07/31/2022 20437291 SNOMED-CT Personal Care Team Section Progress Notes [facility] 07/31/2022 18:10 Admission Date/Time: 07/31/2022 [...] NEGATIVE 07/31/2022 17:10 07/31/2022 17:12 final LOT#: [id number] 07/31/2022 17:10 07/31/2022 17:12 final EXP DATE: [...]
--- OUTSIDE RECORDS SUMMARY | 2025-06-03 00:50 | XMS_ITS ---
Author Organization Unknown Address [address] [place] [phone] Phone Care Team Providers Care Hearse Driver Name Role Phone Blanco Gallego Attending Unavailable [...] em Smoking History Never smoker (Never Smoked) 111026191 SNOMED CT Sex Female Sexual Orientation Straight or Heterosexual 55332599 SNOMED CT Gender Identity Female [id number] [address] Medications Medication Start Date End Date Route Frequency Dose Code Code System Medication Instructions Home Meds ZyrTEC Allergy 10MG Oral Capsule, Liquid Filled 03/12/2023 Unknown By Mouth Daily 1 CAPSULE 3659760 RxNorm 1 CAPSULE By Mouth Daily Fluticasone 0.05MG/1Actuatio n Nasal [place] 03/12/2023 Unknown Nasal Daily 1 Sprays 2671362 RxNorm 1 Spra ys Nasal Daily Azithromycin 500MG Oral Tablet 06/04/2024 Unknown By Mouth x1 NOW 2 TABLET 450743 RxNorm 2 TABLET By Mouth x1 NOW [...] Status Code Code System SEASONAL ALLERGY active 170123619 SNO MED-CT FAMILY PLANNING 06/20/2020 active 872700544 SNO MED-CT BITE OF INSECT active 829616705 SNOME D-CT ES OF VAGINA 08/07/2022 active 72829470 S NOMED-CT MENORRHAGIA active 205274282 SNOMED-C T PAINFUL NECK active 91536270 SNOMED- CT ADHD OF CHILDHOOD 07/22/2019 resolved 342835159 S NOMED-CT SEASONAL NASAL ALLERGY 07/22/2019 resolved 599271 001 SNOMED-CT HISTORY OF CHICKENPOX 07/22/2019 resolved 2597672 08 SNOMED-CT Allergies and Adverse Reactions Allergy Substance Reaction Severity Start Date Concern Status Co de Code System Active No Known Drug Allergies Active 130557864 SNOMED-CT Plan of Treatment Description Due Date Details Instructions DEPRESSION SCREENING DUE 06/20/2021 Personal Care Team Section
--- OUTSIDE RECORDS SUMMARY | 2025-06-03 00:50 | XMS_ITS | Referral Summary ---
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 The CKD-EPI equation should not be used for patients with unstable renal function and has not been validated in children and those over 70. Current interpretive data was last reviewed 2021. Testing performed by: [facility], [address] [place] [address]., [address] Blood 04/02/2025 12:5 1 AM CDT 04/02/2025 12:53 AM CDT us Braden Dan DO LAB BLOOD ORDERABLES Final Res ult [facility]ERYL[facility] [address] [facility] Department [place] [address] * Differential, auto (04/02/2025 12:51 AM CDT) Neutrophil abs 3.52 1.50 - 6.50 K/cumm Comment:Testing performed by : [address] [address] Imm gran abs 0.04 0.00 - 0.10 K/cumm NOEMÍ Comment:Testing performed by : [address] [address] Lymphocyte abs 2.24 0.80 - 3.30 K/cumm [facility] Comment:Testing performed by : [address] [address] Monocyte abs 0.44 0.20 - 0.80 K/cumm [facility] Comment:Testing performed by : [address] [address] Eosinophil abs 0.08 0.00 - 0.50 K/cumm [facility] Comment:Testing performed by : [address] [address] Basophil abs 0.04 0.00 - 0.10 K/cumm [facility] Comment:Testing performed by : [address] [address] Neutrophil pct 55.4 % [facility] Comment: Interpretive Data Percent cell count reference ranges are not reported, since discordance with absolute values may lead to misinterpretation of CBC data. Current Interpretive Data was last revised on 2018. Testing performed by: [address] [address] Imm gran pct 0.6 % [facility] Comment: Interpretive Data Percent cell count reference ranges are not reported, since discordance with absolute values may lead to misinterpretation of CBC data. Current Interpretive Data was last revised on 2018. Testing performed by: [address] [address] Lymphocyte pct 35.2 % [facility] Comment: Interpretive Data Percent cell count reference ranges are not reported, since discordance with absolute values may lead to misinterpretation of CBC data. Current Interpretive Data was last revised on 2018. Testing performed by: [address] [place]., [address] Monocyte pct 6.9 % NOEMÍ Comment: Interpretive Data Percent cell count reference ranges are not reported, since discordance with absolute values may lead to misinterpretation of CBC data. Current Interpretive Data was last revised on 2018. Testing performed by: [address] [address] Eosinophil pct 1.3 % NOEMÍ Comment: Interpretive Data Percent cell count reference ranges are not reported, since discordance with absolute values may lead to misinterpretation of CBC data. Current Interpretive Data was last revised on 2018. Testing performed by: [address] [address] Basophil pct 0.6 % NOEMÍ Comment: Interpretive Data Percent cell count reference ranges are not reported, since discordance with absolute values may lead to misinterpretation of CBC data. Current Interpretive Data was last revised on 2018. Testing performed by: [address] [address] Blood 04/02/2025 12:5 1 AM CDT 04/02/2025 12:53 AM CDT Braden Dan DO LAB BLOOD ORDERABLES Final [facility] [address] [facility] Department [place] [address] * CBC with auto differential (04/02/2025 12:51 AM CDT) WBC 6.36 3.80 - 9.90 K/cumm Comment:Testing performed by : [address] [address] Hgb 14.5 11.9 - 15.5 g/dL NOEMÍ RIZVI Comment:Testing performed by : [address] [address] Hct 41.2 35.6 - 45.5 % NOEMÍ Comment:Testing performed by : [address] [address] Plt 290 150 - 400 K/cumm NOEMÍ RIZVI Comment:Testing performed by : [address] [address] MPV 10.0 9.1 - 12.3 fL NOEMÍ RIZVI Comment:Testing performed by : [address] [address] RBC 4.80 3.90 - 5.20 M/cumm NOEMÍ RIZVI Comment:Testing performed by : [address] [address] MCV 85.8 81.3 - 96.4 fL NOEMÍ Comment:Testing performed by : [address] [address] MCH 30.2 27.1 - 33.3 pg NOEMÍ RIZVI Comment:Testing performed by : [address] [address] MCHC 35.2 32.3 - 35.7 g/dL NOEMÍ Comment:Testing performed by : [address], [address] RDW CV 12.7 11.1 - 14.9 % NOEMÍ Comment:Testing performed by : [address], [address] RDW SD 39.1 35.7 - 48.1 fL NOEMÍ Comment:Testing performed by : [address], [address] NRBC abs 0.00 0.00 - 0.01 K/cumm NOEMÍ Comment:Testing performed by : [address] [address] Blood 04/02/2025 12:5 1 AM CDT 04/02/2025 12:53 AM CDT us Braden Dan DO LAB BLOOD ORDERABLES Final Res ult CHERYLPAIGE [address] [facility] Department of Laboratories [place], [place] [phone] * (ABNORMAL) Comprehensive metabolic panel (04/02/2025 12:51 AM CDT) Sodium 139 135 - 145 mmol/L Comment:Testing performed by : [address], [place]., [address] Potassium, pl 4.1 3.3 - 4.9 mmol/L NOEMÍ Comment:Testing performed by : [address], [place]., [address] Chloride 104 97 - 110 mmol/L NOEMÍ Comment:Testing performed by : [address], [place]., [address] CO2 22 22 - 32 mmol/L [facility] Comment:Testing performed by : [address], [place]., [address] Anion gap 13 2 - 15 mmol/L [facility] Comment:Testing performed by : [address], [place]., [address] BUN 9 6 - 25 mg/dL [facility] Comment:Testing performed by : [address], [place]., [address] Creatinine 0.70 0.60 - 1.10 mg/dL [facility] Comment:Testing performed by : [address], [place]., [address] Glucose 92 70 - 199 mg/dL [facility] Comment: Interpretive Data Fasting glucose >/= 126 [...] classification and Diagnosis of Diabetes Diabetes Care 2021; 46: S19-S40. Current interpretive data was last revised 2022. Testing performed by: [address] [address] Calcium 10.1 8.5 - 10.3 mg/dL NOEMÍ Comment:Testing performed by : [address], [place]., [address] Bilirubin, total 0.3 0.1 - 1.2 mg/dL NOEMÍ Comment:Testing performed by : [address], [place]., [address] Protein, pl 7.9 6.5 - 8.5 g/dL NOEMÍ Comment:Testing performed by : [address] [address] Albumin 4.6 3.5 - 5.0 g/dL NOEMÍ Comment:Testing performed by : [address] [address] Alk phos 98 40 - 130 Units/L NOEMÍ Comment:Testing performed by : [address] [address] ALT 52(H) 7 - 45 Units/L NOEMÍ Comment:Testing performed by : [address] [address] AST 33 10 - 45 Units/L NOEMÍ Comment:Testing performed by : [address] [address] Blood 04/02/2025 12:5 1 AM CDT 04/02/2025 12:53 AM CDT us Braden Dan DO LAB BLOOD ORDERABLES Final Res ult NOEMÍ 84[address] [facility] Department of Laboratories [place], [place] [phone] from Last 3 Months Insurance [facility] Care Teams Cleaner Carpet And Upholstery Relationship Specialty Start Date End Date No, Physician PCP - General 04/01/25
--- OUTSIDE RECORDS SUMMARY | 2025-06-03 00:50 | XMS_ITS ---
Author Organization Unknown Address [address] [place] [address] [phone] Phone Care Team Providers Care Hearing Aid Repair Technician Name Role Phone Blanco Gallego Attending [...] em Smoking History Never smoker (Never Smoked) 571439082 SNOMED CT Sex Female Sexual Orientation Straight or Heterosexual 86665208 SNOMED CT Gender Identity Female [id number] Vital Signs Vital Sign Value Unit [facility] Value [facility] Unit Date/Time Recent/Initial? Code Code System Body Mass Index 23.87 kg/m2 12/25/2022 13:33 Initial 99368 -5 [facility] Body Mass Index Percentile 74 % 12/25/2022 13:33 Initial 64103 -9 [facility] Systolic Blood Pressure 106 mm[Hg] 12/25/2022 13:33 Initial 8480- 6 [facility] Diastolic Blood Pressure 72 mm[Hg] 12/25/2022 13:33 Initial 8462- 4 [facility] Body Surface Area 1.85 m2 12/25/2022 13:33 Initial 3140- 1 [facility] Height 172.720 0 cm 68.00 in 12/25/2022 13:33 Initial 8302- 2 [facility] O2 Saturation 100 % 2022 13:33 Initial 66587 -5 [facility] Pulse 82.0 /min 12/25/2022 13:33 Initial 8867- 4 [facility] Respiration 16 /min 12/25/19 13:33 Initial 9279- 1 [facility] Temperature 37.0 [place] 98.6 F 12/25/19 13:33 Initial 8310- 5 [facility] Weight 71.21 kg 157.00 lbs 12/25/2022 13:33 Initial 13488 -7 [facility] Medications Medication Start Date End Date Route Frequency Dose Code Code System Medication Instructions Home Meds Radha 28 3MG-0.02MG Oral Tablet 09/12/2022 12/25/2022 By Mouth Once a day 1 TABLET RxNorm 1 TABLET By Mouth Once a day Medrol Dosepak 4MG Oral Tablet 12/25/2022 02/20/2023 By Mouth As Directed 1 PACK 719022 RxNorm 1 PACK By Mouth As Directed Methocarbamol 750MG Oral Tablet 12/25/2022 03/12/2023 By Mouth As needed every 8 hr 965693 RxNorm 1-2 TABLET By Mouth As needed every 8 hr Anel-28 30 MCG-0.15 MG; NA Oral Tablet 12/25/2022 03/12/2023 By Mouth Daily 1 TABLET 991678 RxNorm 1 TABLET By Mouth Daily Macrobid 100MG Oral Capsule 02/20/2023 03/12/2023 By mouth Twice a day 1 TABLET 502148 RxNorm 1 TABLET By mouth Twice a day X 7 DAYS Pyridium 100MG Oral Tablet 02/20/2023 03/12/2023 By mouth As needed every 8 hr 1 TABLET 7299111 RxNorm 1 TABLET By mouth As needed every 8 hr for urinary pain ZyrTEC Allergy 10MG Oral Capsule, Liquid Filled 03/12/2023 Unknown By Mouth Daily 1 CAPSULE 7269134 RxNorm 1 CAPSULE By Mouth Daily Fluticasone 0.05MG/1Actuati on Nasal [place] 03/12/2023 Unknown Nasal Daily 1 Sprays 3051015 RxNorm 1 Spr ays Nasal Daily Azithromycin 500MG Oral Tablet 06/04/2024 Unknown By Mouth x1 NOW 2 TABLET 492265 RxNorm 2 TABLET By Mouth x1 NOW Assessment You had the following problems:SEASONAL ALLERGYFAMILY PLANNINGBITE OF INSECTCANDIDA OF VAGINAMENORRHAGIAPAINFUL NECK Assessment/Plan: 1. Left upper back pain - Start steroids and muscle relaxer. Patient denies need for school note. 2. Contraceptive management - Patient requesting to restart Panacea, will restart at this time Return to clinic [facility] Discharge Instructions Should you have any questions prior to discharge, please contact a member of your healthcare team. If you have left the hospital and have any questions, please contact your primary care physician. Reason For Referral No Data Found Problems Problem Start Date Resolved Date Status Code Code System SEASONAL ALLERGY active 475350937 [facility] MED-CT FAMILY PLANNING 06/20/2020 active 336610727 [facility] MED-CT BITE OF INSECT active 627762335 SNOME D-CT ES OF VAGINA 08/07/2022 active 55855331 S NOMED-CT MENORRHAGIA active 018872486 SNOMED-C T PAINFUL NECK active 96142988 SNOMED- CT ADHD OF CHILDHOOD 07/22/2019 resolved 044812541 S NOMED-CT SEASONAL NASAL ALLERGY 07/22/2019 resolved 017303 001 SNOMED-CT HISTORY OF [place] 07/22/2019 resolved 6262043 08 SNOMED-CT Allergies and Adverse Reactions Allergy Substance Reaction Severity Start Date Concern Status Co de Code System Active No Known Drug Allergies Active 000025524 SNOMED-CT Plan of Treatment Description Due Date Details Instructions DEPRESSION SCREENING DUE 06/20/2021 Encounters Encounter Diagnosis Start Date Code Code Sys tem Pain in thoracic spine 12/25/2022 546408742 SNOME D-CT Personal Care Team Section Progress Notes [facility] 12/25/2022 13:54 Admission Date/Time: 12/25/2022 13:07 [facility] Visit Note Chief Complaint: [facility] F/U UPPER BACK PAIN/BY NECK SWOLLEN [...] is an 17 yo female presents to [facility] today for [facility] follow up neck and back pain. Pt states she went to [facility] on 12-18-22 with neck and upper back pain. States it just started hurting her while at work, denies injury to the areas. States no xrays were done at ER and was given Rx for steroids that she did not olive picker. States she has been taking warm [...] and communicating with other health critical care physician x Obtaining and/or reviewing separately obtained history Independent interpretation of results and communicating results to the patient/family/caregiver x Performing a medically appropriate examination/evaluation Care coordination (not reported separately) Ordered & Completed Meds Table: No Current Medications Available Discharge Med List: Discharge Medications: No Discharge Medications Available
--- OUTSIDE RECORDS SUMMARY | 2025-06-03 00:50 | XMS_ITS ---
Author Organization Unknown Address [address] [place] [address] [phone] Phone Care Team Providers Care In Mold Coater Name Role Phone ATIYA Lezama MD Attending [...] em Smoking History Never smoker (Never Smoked) 110791448 SNOMED CT Sex Female Sexual Orientation Straight or Heterosexual 69259017 SNOMED CT Gender Identity Female [id number] Medications Medication Start Date End Date Route Frequency Dose Code Code System Medication Instructions Home Meds ZyrTEC Allergy 10MG Oral Capsule, Liquid Filled 03/12/2023 Unknown By Mouth Daily 1 CAPSULE 0423776 RxNorm 1 CAPSULE By Mouth Daily Fluticasone 0.05MG/1Actuatio n Nasal [place] 03/12/2023 Unknown Nasal Daily 1 Sprays 8526895 RxNorm 1 Spra ys Nasal Daily Azithromycin 500MG Oral Tablet 06/04/2024 Unknown By Mouth x1 NOW 2 TABLET 684431 RxNorm 2 TABLET By Mouth x1 NOW [...] Status Code Code System SEASONAL ALLERGY active 195920604 SNO MED-CT FAMILY PLANNING 06/20/2020 active 736181063 SNO MED-CT BITE OF INSECT active 871678128 SNOME D-CT ES OF VAGINA 08/07/2022 active 73200954 S NOMED-CT MENORRHAGIA active 575755998 SNOMED-C T PAINFUL NECK active 26676520 SNOMED- CT ADHD OF CHILDHOOD 07/22/2019 resolved 076605796 S NOMED-CT SEASONAL NASAL ALLERGY 07/22/2019 resolved 732679 001 SNOMED-CT HISTORY OF CH[place]ENPOX 07/22/2019 resolved 2258919 08 SNOMED-CT Allergies and Adverse Reactions Allergy Substance Reaction Severity Start Date Concern Status Co de Code System Active No Known Drug Allergies Active 568066924 SNOMED-CT Plan of Treatment Description Due Date Details Instructions DEPRESSION SCREENING DUE 06/20/2021 Personal Care Team Section
--- OUTSIDE RECORDS SUMMARY | 2025-06-03 00:50 | XMS_ITS ---
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 Name Role Phone ATIYA Lezama MD Attending [...] em Smoking History Never smoker (Never Smoked) 411369807 SNOMED CT Sex Female Sexual Orientation Straight or Heterosexual 93959501 SNOMED CT Gender Identity Female [id number] [address] Medications Medication Start Date End Date Route Frequency Dose Code Code System Medication Instructions Home Meds Radha 28 3MG-0.02MG Oral Tablet 09/12/2022 12/25/2022 By Mouth Once a day 1 TABLET RxNorm 1 TABLET By Mouth Once a day Medrol Dosepak 4MG Oral Tablet 12/25/2022 02/20/2023 By Mouth As Directed 1 PACK 113136 RxNorm 1 PACK By Mouth As Directed Methocarbamol 750MG Oral Tablet 12/25/2022 03/12/2023 By Mouth As needed every 8 hr 221031 RxNorm 1-2 TABLET By Mouth As needed every 8 hr Anel-28 30 MCG-0.15 MG; NA Oral Tablet 12/25/2022 03/12/2023 By Mouth Daily 1 TABLET 710866 RxNorm 1 TABLET By Mouth Daily Macrobid 100MG Oral Capsule 02/20/2023 03/12/2023 By mouth Twice a day 1 TABLET 623443 RxNorm 1 TABLET By mouth Twice a day X 7 DAYS Pyridium 100MG Oral Tablet 02/20/2023 03/12/2023 By mouth As needed every 8 hr 1 TABLET 7559813 RxNorm 1 TABLET By mouth As needed every 8 hr for urinary pain ZyrTEC Allergy 10MG Oral Capsule, Liquid Filled 03/12/2023 Unknown By Mouth Daily 1 CAPSULE 1547514 RxNorm 1 CAPSULE By Mouth Daily Fluticasone 0.05MG/1Actuati on Nasal [place] 03/12/2023 Unknown Nasal Daily 1 Sprays 1734341 RxNorm 1 Spr ays Nasal Daily Azithromycin 500MG Oral Tablet 06/04/2024 Unknown By Mouth x1 NOW 2 TABLET 690520 RxNorm 2 TABLET By Mouth x1 NOW [...] Status Code Code System SEASONAL ALLERGY active 912627515 SNO MED-CT FAMILY PLANNING 06/20/2020 active 301983858 SNO MED-CT BITE OF INSECT active 776754214 SNOME D-CT ES OF VAGINA 08/07/2022 active 75094849 S NOMED-CT MENORRHAGIA active 908453235 SNOMED-C T PAINFUL NECK active 41618845 SNOMED- CT ADHD OF CHILDHOOD 07/22/2019 resolved 406115109 S NOMED-CT SEASONAL NASAL ALLERGY 07/22/2019 resolved 695605 001 SNOMED-CT HISTORY OF CH[place]ENPOX 07/22/2019 resolved 1302903 08 SNOMED-CT Allergies and Adverse Reactions Allergy Substance Reaction Severity Start Date Concern Status Co de Code System Active No Known Drug Allergies Active 711429005 SNOMED-CT Plan of Treatment Description Due Date Details Instructions DEPRESSION SCREENING DUE 06/20/2021 Personal Care Team Section
--- OUTSIDE RECORDS SUMMARY | 2025-06-03 00:50 | XMS_ITS | Data Portability ---
Author Organization [facility] [place] Address [address] [place] [address] Assessment No assessment recorded. Plan of Treatment Reminders Order Date Submit Date Provider Last Modified By Organization Details Last Modified Time Details Appointments None recorded. Lab None recorded. Referral None recorded. Procedures None recorded. Surgeries None recorded. Imaging non-stress test 2024 025 [email or web address] [place], [address], [place], [address], 02:43:02 US, obstetric, biophysical profile + non-stress test 2024 025 [email or web address] [place] [facility] [address], [place], [address], 18:08:11 Medication Orders Slynd 4 mg (28) tablet 2024 025 [id number], [address], [place], [place], [id number], 12:18:53 Patient TargetsNo targets recorded. Patient InstructionsNo [...] t Abnor mal: No Resul ting Lab: [facility] [address] [facility] [address] Tel: CULTU RE ----- ----- ----- --- No growt h in 1 day (dete ction level of 10,00 0 colon ies / ml.) Not Available [facility] (Lab) [address], [place], [address], 01/03/2025 23:55:30 01/12/2001/11/2025 CULTU RE: GROUP B [...] t Abnor mal: Yes Resul ting Lab: [facility] [address] [facility] [address] Tel: CULTU RE ----- ----- ----- --- [...] hugo for these drugs . Not Available [facility] (Lab) [address], [place], [address], 01/15/2025 16:18:09 12/30/19 25 12/30/2024 non-s tress test No observ ation record ed. [address], [place], [address], 01/01/2025 13:38:09 01/12/20 25 01/11/2025 non-s tress test No observ ation record ed. [place] [address], [place], [address], 01/11/2025 11:07:08 01/12/20 25 01/11/2025 US, obste tric, follo w-up No observ ation record ed. [email or web address] [place] [address], [place], [address], 01/11/2025 17:20:12 01/12/20 25 01/11/2025 US, obste tric, bioph ysica l profi le + non-s tress test No observ ation record ed. [email or web address] [place] [address], [place], [address], 01/11/2025 17:20:21 01/12/20 25 01/11/2025 US, obste tric, follo w-up No observ ation record ed. [address] [facility], [place], [address], 01/11/2025 22:14:29 01/19/20 25 01/18/2025 US, obste tric, bioph ysica l profi le + non-s tress test No observ ation record ed. [email or web address] [place] [address], [place], [address], 01/18/2025 18:13:15 01/19/20 25 01/18/2025 US, obste tric, bioph ysica l profi le + non-s tress test No observ ation record ed. [email or web address] [address], [place], [address], 01/18/2025 14:29:09 01/19/20 25 01/18/2025 non-s tress test No observ ation record ed. [email or web address] [place] [address], [place], [address], 01/18/2025 14:40:38 01/24/20 25 01/23/2025 non-s tress test No observ ation record ed. [address], [place], [address], 01/26/2025 15:08:47 01/24/20 25 01/23/2025 non-s tress test No observ ation record ed. [address], [place], [address], 01/26/2025 15:08:13 Result Notes None recorded. Problems Name Problem SNOMED Code Status Onset Date Resolution Date Notes Provider Name and Address Organization Details Recorded Time Klinefel ter's syndrome , XXY 783344975 Completed High risk on NIPT; declined amniocen tesis; genetic testing at delivery TRINI RODRIGUEZ MD [address], [place], [address], [facility] 22:12:52 Large for gestatio n age fetus 979185136 Completed 94% at 11/2024 [facility] TRINI RODRIGUEZ MD [address], [place], [address], [facility] 22:40:35 Cytomega lovirus antibody screenin g Completed Positive per [facility]; echogeni c bowel on 3T US, resolved on later scan; twice weekly antenata l testing per [facility] TRINI RODRIGUEZ MD [address], [place], [address], [facility] 22:12:30 Gestatio nal diabetes mellitus 74171625 Completed TRINI RODRIGUEZ MD [address], [place], [address], [facility] 22:40:11 Gestatio nal diabetes mellitus 37325392 Active TRINI RODRIGUEZ MD [address], [place], [address], [facility] 22:40:11 Cytomega lovirus antibody screenin g Active Positive per [facility]; echogeni c bowel on 3T US, resolved on later scan; twice weekly antenata l testing per [facility] TRINI RODRIGUEZ MD [address], [place], [address], [facility] 22:40:[address] K[address]'s syndrome , XXY 955514520 Active High risk on NIPT; declined amniocen tesis; genetic testing at delivery TRINI RODRIGUEZ MD [address], [place], [address], [facility] 22:40:36 Large for gestatio n age fetus 704030254 Active 94% at 11/2024 [facility] TRINI RODRIGUEZ MD [address], [place], [address], [facility] 22:40:38 Pregnanc y 74181004 Completed 202402/02/2025 Yue Chandler null, [facility] 19:59:31 Problem Notes None recorded. Procedures Surgical History Date Name Laterality Status Provider Name and Address Organization Details Recorded Time 3 Appendectomy completed Zelda Wang [facility] 12/15/2024 13:12:49 Imaging Results None [...] 01/18/2025 172.72 cm 28.3 kg/m2 89 % 84331.1 8 g 116/77 mm[Hg] DONI Larsen [facility] 14:30:57 Date Recorded Body height Body mass index (BMI) Body mass index (BMI) [Percentile] Per age and sex Body weight Systolic And Diastolic Provider Name and Address Organization Details Last Updated DateTime 03/01/2025 172.72 cm 24.3 kg/m2 73 % 66042.7 8 g 117/85 mm[Hg] Zelda Wang [facility] 12:57:23 Date Recorded Body mass index (BMI) [Percentile] Per age and sex Body mass index (BMI) Body weight Systolic And Diastolic Provider Name and Address Organization Details Last Updated DateTime 03/15/2025 72 % 24.2 kg/m2 52105.19 g 125/81 mm[Hg] Zelda Wang [facility] 03/15/2025 12:02:44 Date Recorded Body height Provider Name an d Address Organization Details Last Updated DateTime 03/15/2025 172.72 cm Josephine Castro JULIET Serna DAVID Mariangel [facility] 03/15/2025 11:55:34 Social History Question Answer [...] Or The Highest Degree You Have Received? [id number] Information not available 12/15/2024 Are There Any [...] 12/15/2024 Do You Use Sunscreen Routinely? 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 Occasional Information not available 12/15/2024 Mental Status Question Answer Note LastModified by Organization D etails LastModified Time Do you feel stressed (tense, restless, nervous, or anxious, or unable to sleep at night)? [id number] Information not available 12/15/2024 Family History Relationship Description Onset Age of this Age Resolved Age Notes LastModified by Organization Details LastModified Time Unspecified Relation Family history unknown Not available 2024 13:12:28 Medical History Condition Response Allergies (Food, seasonal, environmental ) N Other Y Drug/Latex Allergies/Reactions N Blood Transfusion N Breast Cancer N Dermatologic Disorders N Lung Disease N Defects or Inherited Disease Y Breast Problem N Gestational Diabetes Y Hematologic disorders N Anesthesia Complications N History of STI Y Deep Vein Thrombosis N Polycystic ovary syndrome N Anxiety Disorder N Autoimmune disease N Arthritis N Polyps N Infertility N Acid Reflux (GERD) N History of abnormal pap N Cancer N Varicosities N Stroke N Neurologic/Epilepsy N Endometriosis N High Cholesterol N Fibromyalgia N Headaches N Kidney Disease N Heart Problems N [...] SNOMED-CT Code Diagnosis ICD10 Code Diagnosis Note [id number] Tod Briggs MD [place] [address],[place] [address] 12/15/2024 11:23:34 12/15/2024 12:36:18 Gestational diabetes mellitus 53964865 O24.410 Z3A.32 [id number] Tod Briggs MD [place] [address],[place] [address] 12/15/2024 11:26:10 12/15/2024 13:53:08 Routine care 845745324 Z34.03 [id number] TRINI RODRIGUEZ MD [place] [address],[place] [address] 12/30/2024 17:03:09 12/31/2024 10:05:53 Gestational diabetes mellitus 73290261 O24.410 Z3A.32 - A1- good glycemic control History of cytomegalovirus infection 6461308524 78200765 Z86.19 - positive antibodies - records requested from [facility]- twice weekly testing per [facility] Klinefelte r's syndrome, XXY 918558463 Q98.0 - high risk on NIPT- declined amniocente sis- plan for cord blood at deliveryfo r confirmato ry testing Large for gestation age fetus 107438095 O36.63X0 - 94% at 11/2024 [facility] scan Gestation period, 34 weeks 48888229 Z3A.34 - all outside scans and labs reviewed today- continue PNV RhD negative 872679702 Z - B neg blood type- patient reports she has not received Rhogam injection yet- labs sent today for Rhogam eval [id number] TRINI RODRIGUEZ MD [place] [address],[facility] [place] [address] 01/11/2025 10:19:23 01/11/2025 11:08:16 Gestational diabetes mellitus 58271125 O24.410 Z3A.32 - A1- good glycemic control [id number] Tod Briggs MD [place] [address],[place] [address] 01/11/2025 10:20:01 01/11/2025 12:06:23 Gestational diabetes mellitus 45234624 O24.410 O36.63X0 Z3A.36 [id number] TRINI RODRIGUEZ MD [place] [address],[place] [address] 01/11/2025 10:20:16 01/11/2025 12:33:12 Gestational diabetes mellitus 42038077 O24.410 O36.63X0 Z3A.36 - A1- good glycemic control Klinefelte r's syndrome, XXY 995359163 Q98.0 - high risk on NIPT- declined amniocente sis- plan for cord blood at delivery for confirmato ry testing Large for gestation age fetus 718565474 O36.63X0 - 94% at 11/2024 [facility] scan- 88% at 01/11/25 (36 week) [place] History of cytomegalovirus infection 4734216429 53816105 Z86.19 - positive antibodies , drawn due to echogenic bowel which resolved- weekly testing per [facility] Gestation period, 36 weeks 51887115 Z3A.36 - continue PNV- GBS collected today [id number] Tod Briggs MD [place] [address],[place] [address] 01/18/2025 13:29:19 01/18/2025 14:02:39 Gestational diabetes mellitus 90911142 O24.410 Z3A.37 [id number] TRINI RODRIGUEZ MD [place] [address],[place] [address] 01/18/2025 13:29:38 01/18/2025 14:42:35 Gestational diabetes mellitus 54136971 O24.410 O36.63X0 Z3A.36 - A1- good glycemic control [id number] TRINI RODRIGUEZ MD [place] [address],[place] [address] 01/18/2025 13:29:48 01/18/2025 14:58:44 Klinefelter's syndrome, XXY 262227822 Q98.0 - high risk on NIPT- declined amniocente sis- plan for cord blood at delivery for confirmato ry testing Gestationa l diabetes mellitus 55730064 O24.410 - A1- good glycemic control Gestation period, 37 weeks 37630029 Z3A.37 - continue PNV Group [facility] reptococcus carrier 5665977128 103 Z22.330 - plan for antibiotic s during labor [id number] Tod Briggs MD [place] [address] [address] 03/01/2025 12:23:14 03/01/2025 13:13:27 care status 101234480 Z39.2 this patient is a 19-year-ol d female presents for care. Her baby is doing well. Her baby is breastfeed ing. She is doing well. Her bleeding has stopped. Her mood is good. She has not had intercours e. She would like Mirena IUD for contracept ion. That will be inserted in 2 weeks. She will follow up in as needed. [id number] RHODA Cornejo [place] [address],[place] [address] 03/15/2025 11:51:23 03/15/2025 12:19:58 Initial prescription of oral contraception 666531135 Z30.011 Discussed with patient risks, benefits, and [...] Rivers Member ID Guarantor Name 04/18/2025 1 [facility] (MEDICAID HMO) [id number] 0003 Lani Vic [id number] Lani E Vic 12/30/2024 1 MEDICAID-MS: [facility] Lani Vic [id number] Lani August Vic 12/30/2024 2 [facility] (MEDICAID HMO) [id number] 0003 Lani Vic [id number] Lani E Vic Notes Date Note Type [...] needed. Tod Briggs MD [address], [place], [address], [facility] 03/01/2025 13:12:28 03/15/2025 text/html 19yo [id number] for BC consultshe is both and formula feeding her 7 week oldshe was considering a Mirena IUD but wants to discuss other options RHODA Cornejo [address], [place], [address], [facility] 03/15/2025 12:19:24 OBGyn Episode Ob Episode Information Episode Created Date Number of Fetuses Patient Bloodtype Patient rh Status Prepregnancy Weight lbs Domestic Partner Domestic Partner Phone Father Name District Manager Postal Service Status 12/15/19 25 1 CLOSED Fetus Data First Name Last Name Admitted to NICU Weight (g) Sex Living Outcome Pediatric Complications Fetus ID Race Codes Race Delivery Type 3628.73 6 M true Full Term [id number] Vaginal Delivery Problems Problem Notes GBS + Problem Name Start Date End Date Resolution Snomed Code Not e Large for gestation age fetus 696208427 94% at 11/2024 [facility] US Gestational diabetes mellitus 87101070 Cytomegalovirus antibody screening 287255660 Positive per [facility]; echogenic bowel on 3T US, resolved on later scan; twice weekly testing per [facility] Klinefelter's syndrome, XXY 627408195 High risk on NI PT; declined amniocentesis; [...] Weight in lbs Pre/Post Dialysis Refused Weight 182.751689591765 BP Diastolic BP Location Tested BP Systolic [...] Type Weight in lbs Pre/Post Dialysis Refused 186.377081013498 BP Diastolic BP Location Tested BP Systolic BP Type 83 L arm 127 sitting Fetus Heart Rate Present A 145 Fetus Movement A Yes Comments Good movement. No cram ping or bleeding. Transfer from [place] at 32 weeks; has been complicated by [...] request further records regarding CMV. Per patient, [facility] recommends twice weekly testing. Most recent [...] Weight in lbs Pre/Post Dialysis Refused Weight 186.366819299665 BP Diastolic BP Location Tested BP Systolic BP Type 83 L arm 125 sitting Fetus Heart Rate Present A 140 Fetus Movement A Yes Comments Patient c/o back pains and p elvic pressure. Good movement. Glucose overall wnl, no consistently abnormal readings. Received rhogam. BPP 10/10, EFW 88% (previously 94%). GBS collected today. SVE 0.5cm. Discussed MIL for GDM between 06z1-81h0m. Patient to discuss with partner and will [...] Weight in lbs Pre/Post Dialysis Refused Weight 186.083041132153 BP Diastolic BP Location Tested BP Systolic [...]
--- OUTSIDE RECORDS SUMMARY | 2025-06-03 00:50 | XMS_ITS | Clinical Summary ---
Author Organization [facility] Address [address] [place] [address] Care Team Providers Care Senior Librarian Name Role Phone No, Physician Primary Care Provider [phone] Allergies No known active allergies Encounters Date Type Department Care Team Description 04/02/2025 12:32 AM CDT - 04/02/2025 1:36 AM CDT Emergency [facility] Emergency Department [address] [place] [id number] Braden Dan DO Exhaustion (Primary Dx); [...] on file Legal Sex Female 7:27 PM [employer] Gender Identity Not on file Sexual Orientation [...] 5 season) 2024 03/16/2021, 02/21/2021 Influenza Vaccine (#1) 2025 8, 08/24/2010, 10/31/2006 DTaP/Tdap/Td Vaccine (6 - Td [...] was last reviewed 2021. Testing performed by: [address] [address] Blood 04/02/2025 12:5 1 AM CDT 04/02/2025 12:53 AM CDT us Braden Dan DO LAB BLOOD ORDERABLES Final Res ult NO[facility] [place] [address] * Differential, auto (04/02/2025 12:51 AM CDT) Neutrophil abs 3.52 1.50 - 6.50 K/cumm Comment:Testing performed by : [address] [address] Imm gran abs 0.04 0.00 - 0.10 K/cumm NO[facility]Í Comment:Testing performed by : [address] [address] Lymphocyte abs 2.24 0.80 - 3.30 K/cumm NOEMÍ Comment:Testing performed by : [address] [address] Monocyte abs 0.44 0.20 - 0.80 K/cumm NOEMÍ Comment:Testing performed by : [address] [address] Eosinophil abs 0.08 0.00 - 0.50 K/cumm NOEMÍ Comment:Testing performed by : [address] [address] Basophil abs 0.04 0.00 - 0.10 K/cumm NOEMÍ Comment:Testing performed by : [address] [address] Neutrophil pct 55.4 % NO[facility] Comment: Interpretive Data Percent cell count reference ranges are not reported, since discordance with absolute values may lead to misinterpretation of CBC data. Current Interpretive Data was last revised on 2018. Testing performed by: [address] [address] Imm gran pct 0.6 % [facility] Comment: Interpretive Data Percent cell count reference ranges are not reported, since discordance with absolute values may lead to misinterpretation of CBC data. Current Interpretive Data was last revised on 2018. Testing performed by: [address] [address] Lymphocyte pct 35.2 % [facility] Comment: Interpretive Data Percent cell count reference ranges are not reported, since discordance with absolute values may lead to misinterpretation of CBC data. Current Interpretive Data was last revised on 2018. Testing performed by: [address] [address] Monocyte pct 6.9 % [facility] Comment: Interpretive Data Percent cell count reference ranges are not reported, since discordance with absolute values may lead to misinterpretation of CBC data. Current Interpretive Data was last revised on 2018. Testing performed by: [address] [address] Eosinophil pct 1.3 % [facility] Comment: Interpretive Data Percent cell count reference ranges are not reported, since discordance with absolute values may lead to misinterpretation of CBC data. Current Interpretive Data was last revised on 2018. Testing performed by: [address] [address] Basophil pct 0.6 % [facility] Comment: Interpretive Data Percent cell count reference ranges are not reported, since discordance with absolute values may lead to misinterpretation of CBC data. Current Interpretive Data was last revised on 2018. Testing performed by: [address] [address] Blood 04/02/2025 12:5 1 AM CDT 04/02/2025 12:53 AM CDT us Braden Dna DO LAB BLOOD ORDERABLES Final Res ult NO[facility] [address] [facility] [place] [address] * CBC with auto differential (04/02/2025 12:51 AM CDT) WBC 6.36 3.80 - 9.90 K/cumm Comment:Testing performed by : [address] [address] Hgb 14.5 11.9 - 15.5 g/dL NOEMÍ Comment:Testing performed by : [address] [address] Hct 41.2 35.6 - 45.5 % NO[facility]Í Comment:Testing performed by : [address] [address] Plt 290 150 - 400 K/cumm NOEMÍ Comment:Testing performed by : [address], [address] MPV 10.0 9.1 - 12.3 fL NOEMÍ Comment:Testing performed by : [address] [address] RBC 4.80 3.90 - 5.20 M/cumm NOEMÍ Comment:Testing performed by : [address] [address] MCV 85.8 81.3 - 96.4 fL NOEMÍ Comment:Testing performed by : [address] [address] MCH 30.2 27.1 - 33.3 pg NOEMÍ Comment:Testing performed by : [address] [address] MCHC 35.2 32.3 - 35.7 g/dL NOEMÍ Comment:Testing performed by : [address], [address] RDW CV 12.7 11.1 - 14.9 % NOEMÍ RIZVI Comment:Testing performed by : [address] [address] RDW SD 39.1 35.7 - 48.1 fL NOEMÍ RIZVI Comment:Testing performed by : [address] [address] NRBC abs 0.00 0.00 - 0.01 K/cumm NOEMÍ RIZVI Comment:Testing performed by : [address] [address] Blood 04/02/2025 12:5 1 AM CDT 04/02/2025 12:53 AM CDT us Braden Dan DO LAB BLOOD ORDERABLES Final Res ult NOEMÍ RIZVI [address] [facility] [place] [address] * (ABNORMAL) Comprehensive metabolic panel (04/02/2025 12:51 AM CDT) Sodium 139 135 - 145 mmol/L Comment:Testing performed by : [address] [address] Potassium, pl 4.1 3.3 - 4.9 mmol/L NOEMÍ RIZVI Comment:Testing performed by : [address] [address] Chloride 104 97 - 110 mmol/L NO[facility] RIZVI Comment:Testing performed by : [address] [address] CO2 22 22 - 32 mmol/L NO[facility] RIZVI Comment:Testing performed by : [address] [address] Anion gap 13 2 - 15 mmol/L NOEMÍ RIZVI Comment:Testing performed by : [address] [address] BUN 9 6 - 25 mg/dL NOEM[facility] RIZVI Comment:Testing performed by : [address] [address] Creatinine 0.70 0.60 - 1.10 mg/dL NOEM[facility] RIZVI Comment:Testing performed by : [address] [address] Glucose 92 70 - 199 mg/dL NOEMÍ [...] was last revised 2022. Testing performed by: [address] [address] Calcium 10.1 8.5 - 10.3 mg/dL NOEMÍ Comment:Testing performed by : [address] [address] Bilirubin, total 0.3 0.1 - 1.2 mg/dL [facility] Comment:Testing performed by : [address] [address] Protein, pl 7.9 6.5 - 8.5 g/dL [facility] Comment:Testing performed by : [address] [address] Albumin 4.6 3.5 - 5.0 g/dL NOEMÍ Comment:Testing performed by : [address] [address] Alk phos 98 40 - 130 Units/L NOEMÍ Comment:Testing performed by : [address] [address] ALT 52(H) 7 - 45 Units/L NO[facility] Comment:Testing performed by : [address] [address] AST 33 10 - 45 Units/L NO[facility] Comment:Testing performed by : [address] [address] Blood 04/02/2025 12:5 1 AM CDT 04/02/2025 12:53 AM CDT us Braden Dan DO LAB BLOOD ORDERABLES Final Res ult [facility] [place] [address] from Last 3 Months Insurance [facility] Care Teams Senior Librarian Relationship Specialty Start Date End Date No, Physician PCP - General 04/01/25
--- NOTE | 2025-06-03 12:39 | WPDHPUPDATE1 ---
History and Physical Update Update Date/Time: 06/03/25 12:39 History and Physical has been reviewed, including an updated exam of the patient. There are NO changes in the patient's condition. Risks, benefits, and alternatives have been discussed and questions answered. Patient agrees to proceed with procedure.
[2025-06-03] MEDS: LACTATED RINGERS 1,000 ML 30 ML IV CONT ×2 (14:25→17:00)
[2025-06-03] MEDS: KETOROLAC 15 MG/ML VIAL (*BKC) IV PUSH (14:30)
[2025-06-03] MEDS: ACETAMINOPHEN 500 MG TABLET 1000 MG PO (14:30)
[2025-06-03 15:01] LABS: Amylase 74 U/L (30-110)
--- NOTE | 2025-06-03 15:19 | P.PNAN_ITS ---
Anes - Initial Pre Proc Eval Procedure: Operation Date: 06/03/25 15:00 Proposed Procedures p Laparoscopic Cholecystectomy - Jaci Iniguez MD Date/Time: 06/03/25 15:19 Surgeon: Jaci Iniguez MD Pre Op Diagnosis: Acute Cholecystitis with Stones Patient Data Age: 19 Gender: F Height: 1.7 m Weight: 72.2 kg Last Vital Signs Temp 98.5 F 06/03/25 14:45 Pulse 64 06/03/25 14:45 BP 126/72 06/03/25 14:45 Pulse Ox 99 06/03/25 14:45 O2 Del Method Room Air 06/03/25 14:45 Allergies Allergy/AdvReac Type Severity Reaction Status Date / Time No Known Allergies Allergy Verified 06/03/25 14:44 Home Medications ?Medication ?Instructions ?Recorded ?Confirmed ?Type No Home Medications 06/01/25 06/01/25 History Laboratory Tests 06/03/25 14:39 Amylase 74 U/L (30-110) Patient hx anesthesia problems: none Family hx anesthesia problems: none Results Review: All pre-operative results and documents have been reviewed as part of the pre- operative evaluation. [facility] Surgical History Surgical History Hx of appendectomy Family History Family History Grandparent Alcoholism Father Alcoholism Depression Mother Depression Sibling Depression Other No pertinent family history in first degree relatives Social History Social History Smoking status: Former smoker Tobacco type: e-cigarettes/vaping Second hand tobacco smoke exposure: Yes Smoking end date: 05/11/25 Alcohol intake: current Substance use: never Do You Feel Safe in your Home?: Yes Lack of Transportation: No Lack of Food: Never True Current Housing: I Have Housing Concerned About Future Housing: No Difficulty Paying Gas/Electric Bills: No Difficulty Paying for Meds: No Currently Unemployed: No Education: High School Diploma/GED Difficulty w/ Childcare or Family Care: No Living arrangements: with family Spiritual care concerns: No Anes - Eval Final PreProcedure Day of Procedure 06/03/25 15:19 Patient weight: normal Lungs: normal air movement Airway: Mallampati scale Last oral intake: >/= 8 hours ASA classification: II Emergent: no Anesthetic plan: proceed Anesthesia type and monitoring: general ETT and standard monitoring Results Review: All pre-operative results and documents have been reviewed as part of the pre-op erative evaluation. Pt vapes for 4 years, none for 2 weeks. Informed Consent: The patient's anesthetic plan and its attendant risks and benefits were d iscussed with the patient/family/POA. Questions were solicited and answers provided to the satisfaction of the patient/family/POA.
[2025-06-03] MEDS: ceFAZolin 2 GM in SODIUM CHLORIDE 0.9% IV 50 ML 100 ML IVPB (15:35)
[2025-06-03] MEDS: BUPIVACAINE/EPINEPHRINE 0.5% 30 ML VIAL INFILTRATE (15:51)
--- NOTE | 2025-06-03 15:54 | S_PTH ---
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
--- NOTE | 2025-06-03 16:25 | W.PM.PROC2 ---
Procedure Note - Detailed Date of Procedure 06/03/25 Pre-op Diagnosis cholecystitis with cholelithiasis Post-op Diagnosis Same Procedure Performed Laparoscopic cholecystectomy Surgeon Jaci Iniguez MD Anesthesia General Indications 19-year-old female presenting to the office complaining of postprandial upper abdominal pain, bloating, nausea. Workup including imaging, significant for cholecystitis cholelithiasis. Findings Moderate cholecystitis Description of Procedure The patient was taken to the operating room placed in the supine position. After adequate induction of general anesthesia, the patient was prepped and draped in normal sterile fashion. A time-out was then performed to verify the patient's identity as well as the procedure being performed. I then made a 5 mm incision in the infraumbilical region. Through this, a Veress needle was placed into the peritoneal cavity and CO2 gas was then insufflated. After adequate pneumoperitoneum was achieved, the Veress needle was removed and a 5 mm optiview trocar was placed through this incision under direct visualization. I then placed the laparoscope through this trocar site and under direct visualization placed a further 12 mm subxiphoid port as well as 2 additional 5 mm ports in the right upper abdomen. The gallbladder was then identified and was noted to be moderately inflamed and distended. I was able to place a grasper at the dome of the gallbladder and this was retracted anterior and cephalad up over the liver. A 2nd retractor was then placed at the infundibulum and retracted laterally, this allowed visualization of the triangle of Calot. I then was able to visualize the cystic duct in its entirety from its proximal insertion into the gallbladder, to its distal junction with the common hepatic/common bile duct junction. At this point, I carefully skeletonized the proximal cystic duct with the Maryland dissector. I then clipped and transected the proximal cystic duct. Next I visualized the cystic artery. Again the artery was skeletonized, clipped, and transected. I then used the Bovie cautery to take down the peritoneal attachments of the gallbladder off the liver bed. Once the gallbladder specimen was completely detached, an endo-pouch was placed through the 12 mm port site. I then placed the gallbladder specimen into the Endo pouch and removed the endo-pouch from the 12 mm port site. The specimen will now be sent to pathology for further review. I then copiously irrigated the right upper quadrant. Some mild oozing was noted in the liver bed and this was controlled with the bovie cautery. Hemostasis was noted in the liver bed, the clips were noted to be in good position on both the cystic duct stump and the cystic artery stump. No other pathology was noted in the right upper quadrant. I then moved the laparoscope to the subxiphoid port. No iatrogenic injury or other pathology was noted in the lower abdomen. I then closed the 12 mm trocar site under direct visualization using the Miki cone and 0 Vicryl suture. At this point, the abdomen was desufflated and all ports removed. All port sites were then closed with 4.O Monocryl subcuticular sutures. Dermabond was placed on each incision. The patient tolerated the procedure well, was extubated in the operating room postoperative and will be transferred to the recovery room in stable condition Estimated Blood Loss 10 Drains No Packing No Pathology Yes Complications No immediate complications Condition Stable Disposition PACU [facility] Billing Surgery - Charge Forward: Surgery Billing
[2025-06-03] MEDS: fentaNYL CITRATE INJ (*CRX) 100 MCG/2 ML VIAL 25 MCG IV PUSH ×4 (16:55→17:15)
[2025-06-03] MEDS: ONDANSETRON INJ 4 MG/2 ML VIAL IV PUSH (16:55)
== END 2025-06-03 18:30 | disposition home or self-care (01) ==
PROVIDERS: Visit Provider Surgery
PROC: 0FT44ZZ Resection of Gallbladder, Percutaneous Endoscopic Approach (ICD-10-PCS; CPT 47562; principal; 2025-06-03 15:00)
DX: K80.20 Calculus of gallbladder without cholecystitis without obstruction (principal); Z98.890 Other specified postprocedural states; Z87.891 Personal history of nicotine dependence
CPT/HCPCS: 47562; 36415; 82150; 88304; J0690; A9270; J1100; J1171; J1200; J1885; J2003; J2250; J2405; J2704; J3010; J7030; J7120

== ENCOUNTER 2025-06-10 18:05 | Emergency (ER) | payer OTHER, SELFPAY ==
--- OUTSIDE RECORDS SUMMARY | 2025-06-10 18:07 | XMS_ITS | Clinical Summary ---
Author Organization [facility] Address [address] [place] [id number] Care Team Providers Care Film Numberer Name Role Phone Geovanna Pryor NP Primary [...] age to complete this topic Care Teams Film Numberer Relationship Specialty Start Date End Date Geovanna Pryor NP [address] [place] [address] PCP - General Nurse Practitioner Family 06/17/19 Geovanna Pryor NP [address] [place] [address] 06/17/19
--- OUTSIDE RECORDS SUMMARY | 2025-06-10 18:07 | XMS_ITS | Referral Summary ---
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 Testing performed by: [facility], [address] [place] [address]., [address] Blood 04/02/2025 12:5 1 AM CDT 04/02/2025 12:53 AM CDT us Braden Dan DO LAB BLOOD ORDERABLES Final Res ult CHERYLMID [address] [facility] Department [place] [address] * Differential, auto (04/02/2025 12:51 AM CDT) Neutrophil abs 3.52 1.50 - 6.50 K/cumm Comment:Testing performed by : [address] [address] Imm gran abs 0.04 0.00 - 0.10 K/cumm NOEMÍ Comment:Testing performed by : [address] [address] Lymphocyte abs 2.24 0.80 - 3.30 K/cumm [facility] Comment:Testing performed by : [address] [address] Monocyte abs 0.44 0.20 - 0.80 K/cumm [facility] Comment:Testing performed by : [address] [address] Eosinophil abs 0.08 0.00 - 0.50 K/cumm [facility] Comment:Testing performed by : [address] [address] Basophil abs 0.04 0.00 - 0.10 K/cumm [facility] Comment:Testing performed by : [address] [address] Neutrophil pct 55.4 % [facility] Comment: Interpretive Data Percent cell count reference ranges are not reported, since discordance with absolute values may lead to misinterpretation of CBC data. Current Interpretive Data was last revised on 2018. Testing performed by: [address] [address] Imm gran pct 0.6 % [facility] Comment: Interpretive Data Percent cell count reference ranges are not reported, since discordance with absolute values may lead to misinterpretation of CBC data. Current Interpretive Data was last revised on 2018. Testing performed by: [address] [address] Lymphocyte pct 35.2 % [facility] Comment: Interpretive Data Percent cell count reference ranges are not reported, since discordance with absolute values may lead to misinterpretation of CBC data. Current Interpretive Data was last revised on 2018. Testing performed by: [address] [place]., [address] Monocyte pct 6.9 % NOEMÍ Comment: Interpretive Data Percent cell count reference ranges are not reported, since discordance with absolute values may lead to misinterpretation of CBC data. Current Interpretive Data was last revised on 2018. Testing performed by: [address] [address] Eosinophil pct 1.3 % NOEMÍ Comment: Interpretive Data Percent cell count reference ranges are not reported, since discordance with absolute values may lead to misinterpretation of CBC data. Current Interpretive Data was last revised on 2018. Testing performed by: [address] [address] Basophil pct 0.6 % NOEMÍ Comment: Interpretive Data Percent cell count reference ranges are not reported, since discordance with absolute values may lead to misinterpretation of CBC data. Current Interpretive Data was last revised on 2018. Testing performed by: [address] [address] Blood 04/02/2025 12:5 1 AM CDT 04/02/2025 12:53 AM CDT Braden Dan DO LAB BLOOD ORDERABLES Final Res ult [facility] [address] [facility] Department [place] [address] * CBC with auto differential (04/02/2025 12:51 AM CDT) WBC 6.36 3.80 - 9.90 K/cumm Comment:Testing performed by : [address] [address] Hgb 14.5 11.9 - 15.5 g/dL NOEMÍ RIZVI Comment:Testing performed by : [address] [address] Hct 41.2 35.6 - 45.5 % NOEMÍ Comment:Testing performed by : [address] [address] Plt 290 150 - 400 K/cumm NOEMÍ RIZVI Comment:Testing performed by : [address] [address] MPV 10.0 9.1 - 12.3 fL NOEMÍ RIZVI Comment:Testing performed by : [address] [address] RBC 4.80 3.90 - 5.20 M/cumm NOEMÍ RIZVI Comment:Testing performed by : [address] [address] MCV 85.8 81.3 - 96.4 fL NOEMÍ Comment:Testing performed by : [address] [address] MCH 30.2 27.1 - 33.3 pg NOEMÍ RIZVI Comment:Testing performed by : [address] [address] MCHC 35.2 32.3 - 35.7 g/dL NOEMÍ Comment:Testing performed by : [address], [address] RDW CV 12.7 11.1 - 14.9 % NOEMÍ Comment:Testing performed by : [address], [address] RDW SD 39.1 35.7 - 48.1 fL NOEMÍ Comment:Testing performed by : [address], [address] NRBC abs 0.00 0.00 - 0.01 K/cumm NOEMÍ Comment:Testing performed by : [address] [address] Blood 04/02/2025 12:5 1 AM CDT 04/02/2025 12:53 AM CDT us Braden Dan DO LAB BLOOD ORDERABLES Final Res ult CHERYLPAIGE [address] [facility] Department of Laboratories [address], [place] [id number] * (ABNORMAL) Comprehensive metabolic panel (04/02/2025 12:51 AM CDT) Sodium 139 135 - 145 mmol/L Comment:Testing performed by : [address], [place]., [address] Potassium, pl 4.1 3.3 - 4.9 mmol/L NOEMÍ Comment:Testing performed by : [address], [place]., [address] Chloride 104 97 - 110 mmol/L NOEMÍ Comment:Testing performed by : [address], [place]., [address] CO2 22 22 - 32 mmol/L [facility] Comment:Testing performed by : [address], [place]., [address] Anion gap 13 2 - 15 mmol/L [facility] Comment:Testing performed by : [address], [place]., [address] BUN 9 6 - 25 mg/dL [facility] Comment:Testing performed by : [address], [place]., [address] Creatinine 0.70 0.60 - 1.10 mg/dL [facility] Comment:Testing performed by : [address], [place]., [address] Glucose 92 70 - 199 mg/dL [facility] Comment: Interpretive Data Fasting glucose >/= [...] was last revised 2022. Testing performed by: [address] [address] Calcium 10.1 8.5 - 10.3 mg/dL NOEMÍ Comment:Testing performed by : [address], [place]., [address] Bilirubin, total 0.3 0.1 - 1.2 mg/dL NOEMÍ Comment:Testing performed by : [address], [place]., [address] Protein, pl 7.9 6.5 - 8.5 g/dL NOEMÍ Comment:Testing performed by : [address] [address] Albumin 4.6 3.5 - 5.0 g/dL NOEMÍ Comment:Testing performed by : [address] [address] Alk phos 98 40 - 130 Units/L NOEMÍ Comment:Testing performed by : [address] [address] ALT 52(H) 7 - 45 Units/L NOEMÍ Comment:Testing performed by : [address] [address] AST 33 10 - 45 Units/L NOEMÍ Comment:Testing performed by : [address] [address] Blood 04/02/2025 12:5 1 AM CDT 04/02/2025 12:53 AM CDT us Braden Dan DO LAB BLOOD ORDERABLES Final Res ult NOEMÍ [address] [facility] Department of Laboratories [place] [address], [place] [id number] from Last 3 Months Insurance [facility] Care Teams Promotor Group Ticket Sales Relationship Specialty Start Date End Date No, Physician PCP - General 04/01/25
--- OUTSIDE RECORDS SUMMARY | 2025-06-10 18:07 | XMS_ITS | Clinical Summary ---
Author Organization [facility] Address [address] [place] [address] Care Team Providers Care Commodity Broker Name Role Phone Faustino Matta MD Primary Care Provider [phone] Source Comments [facility],non-owned Affiliates and Associated Physician Practices is amultiple site organization consisting of ambulatory clinics and hospital sitesin [place], [place], [place] and [place]. This disclosure is being madepursuant to the Care Everywhere program and may not contain all information available regarding this patient. 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
--- OUTSIDE RECORDS SUMMARY | 2025-06-10 18:07 | XMS_ITS | Clinical Summary ---
Author Organization 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 Testing performed by: [address] [address] Blood 04/02/2025 12:5 1 AM CDT 04/02/2025 12:53 AM CDT us Braden Dan DO LAB BLOOD ORDERABLES Final Res ult NOEMÍ [facility] Department [place] [address] * Differential, auto (04/02/2025 12:51 AM CDT) Neutrophil abs 3.52 1.50 - 6.50 K/cumm Comment:Testing performed by : [address] [address] Imm gran abs 0.04 0.00 - 0.10 K/cumm NOEMÍ Comment:Testing performed by : [address] [address] Lymphocyte abs 2.24 0.80 - 3.30 K/cumm NOEMÍ Comment:Testing performed by : [address] [address] Monocyte abs 0.44 0.20 - 0.80 K/cumm NOEMÍ Comment:Testing performed by : [address] [address] Eosinophil abs 0.08 0.00 - 0.50 K/cumm NOEMÍ Comment:Testing performed by : [address] [address] Basophil abs 0.04 0.00 - 0.10 K/cumm NOEMÍ Comment:Testing performed by : [address] [address] Neutrophil pct 55.4 % NOEMÍ Comment: Interpretive Data Percent cell count reference ranges are not reported, since discordance with absolute values may lead to misinterpretation of CBC data. Current Interpretive Data was last revised on 2018. Testing performed by: [address] [address] Imm gran pct 0.6 % [facility] Comment: Interpretive Data Percent cell count reference ranges are not reported, since discordance with absolute values may lead to misinterpretation of CBC data. Current Interpretive Data was last revised on 2018. Testing performed by: [address] [address] Lymphocyte pct 35.2 % [facility] Comment: Interpretive Data Percent cell count reference ranges are not reported, since discordance with absolute values may lead to misinterpretation of CBC data. Current Interpretive Data was last revised on 2018. Testing performed by: [address] [address] Monocyte pct 6.9 % [facility] Comment: Interpretive Data Percent cell count reference ranges are not reported, since discordance with absolute values may lead to misinterpretation of CBC data. Current Interpretive Data was last revised on 2018. Testing performed by: [address] [address] Eosinophil pct 1.3 % [facility] Comment: Interpretive Data Percent cell count reference ranges are not reported, since discordance with absolute values may lead to misinterpretation of CBC data. Current Interpretive Data was last revised on 2018. Testing performed by: [address] [address] Basophil pct 0.6 % [facility] Comment: Interpretive Data Percent cell count reference ranges are not reported, since discordance with absolute values may lead to misinterpretation of CBC data. Current Interpretive Data was last revised on 2018. Testing performed by: [address] [address] Blood 04/02/2025 12:5 1 AM CDT 04/02/2025 12:53 AM CDT us Braden Dan DO LAB BLOOD ORDERABLES Final Res ult NOEMÍ [address] [facility] Department [place] [address] * CBC with auto differential (04/02/2025 12:51 AM CDT) WBC 6.36 3.80 - 9.90 K/cumm Comment:Testing performed by : [address] [address] Hgb 14.5 11.9 - 15.5 g/dL NOEMÍ Comment:Testing performed by : [address] [address] Hct 41.2 35.6 - 45.5 % NOEMÍ Comment:Testing performed by : [address] [address] Plt 290 150 - 400 K/cumm NOEMÍ Comment:Testing performed by : [address], [address] MPV 10.0 9.1 - 12.3 fL NOEMÍ Comment:Testing performed by : [address] [address] RBC 4.80 3.90 - 5.20 M/cumm NOEMÍ Comment:Testing performed by : [address] [address] MCV 85.8 81.3 - 96.4 fL NOEMÍ Comment:Testing performed by : [address] [address] MCH 30.2 27.1 - 33.3 pg NOEMÍ Comment:Testing performed by : [address] [address] MCHC 35.2 32.3 - 35.7 g/dL NOEMÍ Comment:Testing performed by : [address], [address] RDW CV 12.7 11.1 - 14.9 % NOEMÍ RIZVI Comment:Testing performed by : [address] [address] RDW SD 39.1 35.7 - 48.1 fL NOEMÍ RIZVI Comment:Testing performed by : [address] [address] NRBC abs 0.00 0.00 - 0.01 K/cumm NOEMÍ RIZVI Comment:Testing performed by : [address] [address] Blood 04/02/2025 12:5 1 AM CDT 04/02/2025 12:53 AM CDT us Braden Dan DO LAB BLOOD ORDERABLES Final Res ult NOEMÍ RIZVI [address] [facility] Department [place] [address] * (ABNORMAL) Comprehensive metabolic panel (04/02/2025 12:51 AM CDT) Sodium 139 135 - 145 mmol/L Comment:Testing performed by : [address] [address] Potassium, pl 4.1 3.3 - 4.9 mmol/L NOEMÍ RIZVI Comment:Testing performed by : [address] [address] Chloride 104 97 - 110 mmol/L NOEMÍ RIZVI Comment:Testing performed by : [address] [address] CO2 22 22 - 32 mmol/L NOEMÍ RIZVI Comment:Testing performed by : [address] [address] Anion gap 13 2 - 15 mmol/L NOEMÍ RIZVI Comment:Testing performed by : [address] [address] BUN 9 6 - 25 mg/dL NOEMÍ RIZVI Comment:Testing performed by : [address] [address] Creatinine 0.70 0.60 - 1.10 mg/dL NOEMÍ RIZVI Comment:Testing performed by : [address] [address] Glucose 92 70 - 199 mg/dL NOEMÍ [...] was last revised 2022. Testing performed by: [address] [address] Calcium 10.1 8.5 - 10.3 mg/dL NOEMÍ Comment:Testing performed by : [address] [address] Bilirubin, total 0.3 0.1 - 1.2 mg/dL [facility] Comment:Testing performed by : [address] [address] Protein, pl 7.9 6.5 - 8.5 g/dL [facility] Comment:Testing performed by : [address] [address] Albumin 4.6 3.5 - 5.0 g/dL NOEMÍ Comment:Testing performed by : [address] [address] Alk phos 98 40 - 130 Units/L NOEMÍ Comment:Testing performed by : [address] [address] ALT 52(H) 7 - 45 Units/L NOEMÍ Comment:Testing performed by : [address] [address] AST 33 10 - 45 Units/L NOEMÍ Comment:Testing performed by : [address] [address] Blood 04/02/2025 12:5 1 AM CDT 04/02/2025 12:53 AM CDT us Braden Dan DO LAB BLOOD ORDERABLES Final Res ult NOEMÍ [facility] Department [place] [address] from Last 3 Months Insurance [facility] Care Teams Social Work Job Titles Relationship Specialty Start Date End Date No, Physician PCP - General 04/01/25
[2025-06-10 18:09] VITALS: BP 130/90; PULSE 80; RESP 16; TEMP 36.4; O2SAT 100
--- NOTE | 2025-06-10 18:17 | ED_ITS ---
HPI - Skin/Abscess/Foreign Bdy General Chief complaint: Recheck/Abnormal Lab/Rx Stated complaint: post surgery rash Time Seen by Provider: 06/10/25 18:15 Focused HPI: Patient is a 19-year-old female who presents to the ER with complaints of hives. She reports she had gallbladder surgery approximately 1 week ago. Patient reports 3 days after surgery she started noticing a rash on her upper abdomen. She reports the rash has spread down to her lower abdomen and down to her left hip. Patient endorses itching but denies any pain. She denies any new medications, nor is she taking any antibiotics at this time. Patient reports she takes Tylenol as needed for pain. Patient endorses a history of an appendectomy and reports she vaguely remembers having a similar rash after that surgery. She endorses using a new type of antibacterial soap. Patient denies any shortness of breath, urinary symptoms, or recent fevers. Patient also like someone to look at her incision site to ensure they are not infected. GENERAL: Well-appearing, well-nourished, and in no acute distress. HEAD: Normocephalic, atraumatic. CHEST: Clear to auscultation. ?No respiratory distress. HEART: Regular rate and rhythm.? NEURO: ?Alert and oriented x3. Patient screened in triage and initial orders placed.? ?Additional care and disposition to be based upon?diagnostic testing and treatment. Related Data Allergies Allergy/AdvReac Type Severity Reaction Status Date / Time No Known Allergies Allergy Verified 06/03/25 14:44 Review of Systems Review of Systems: All systems reviewed & are unremarkable except as noted in HPI and below PMFSH Surgical History Surgical History Hx of appendectomy Family History Family History Grandparent Alcoholism Father Alcoholism Depression Mother Depression Sibling Depression Other No pertinent family history in first degree relatives Social History Social History Smoking status: Former smoker Tobacco type: e-cigarettes/vaping Second hand tobacco smoke exposure: Yes Smoking end date: 05/11/25 Alcohol intake: current Substance use: never Do You Feel Safe in your Home?: Yes Lack of Transportation: No Lack of Food: Never True Current Housing: I Have Housing Concerned About Future Housing: No Difficulty Paying Gas/Electric Bills: No Difficulty Paying for Meds: No Currently Unemployed: No Education: High School Diploma/GED Difficulty w/ Childcare or Family Care: No Living arrangements: with family Spiritual care concerns: No Exam Narrative: GENERAL: Well appearing, well-nourished, non-toxic, in no acute distress. HEAD: Normocephalic, atraumatic. NECK: Supple. No adenopathy, no masses. RESPIRATORY: Airway patent, respirations nonlabored. Clear to auscultation bilaterally, no rales, rhonchi, wheezing. CARDIOVASCULAR: Regular rate and rhythm without murmurs, rubs, or gallops. Peripheral pulses 2+ and equal bilaterally. ABDOMINAL: Soft, nontender, nondistended, no hepatosplenomegaly. Normoactive BS. MUSCULOSKELETAL: Moves all extremities. Strength/ROM intact without gross deformities. SKIN: Warm, dry, normal color. + hives generalized abdomen, mildly reddened areas surrounding three incision sites (1-2cm), incision below umbilical incision approximately 4-5 cms oval-shaped redness with no palpable warmth, no drainage at sites NEURO: A&O X3. Speech clear. Cranial nerves II-XII intact. No ataxic movements. PSYCHIATRIC: Appropriate mood and affect. Normal interaction. Course Vital Signs Vital signs: Vital Signs Temperature 36.4 C 06/10/25 18:09 Pulse Rate 80 06/10/25 18:09 Respiratory Rate 16 06/10/25 18:09 Blood Pressure 130/90 06/10/25 18:09 Pulse Oximetry 100 06/10/25 18:09 Temperature 36.4 C 06/10/25 18:09 Pulse Rate 80 06/10/25 18:09 Respiratory Rate 16 06/10/25 18:09 Blood Pressure 130/90 06/10/25 18:09 Pulse Oximetry 100 06/10/25 18:09 MDM - Skin/Abscess/Foreign Bdy MDM Narrative Medical decision making narrative: Patient is a 19-year-old female who presents to the ER with complaints of hives. She reports she had gallbladder surgery approximately 1 week ago. Patient reports 3 days after surgery she started noticing a rash on her upper abdomen. She reports the rash has spread down to her lower abdomen and down to her left hip. Patient endorses itching but denies any pain. She denies any new medications, nor is she taking any antibiotics at this time. Patient reports she takes Tylenol as needed for pain. Patient endorses a history of an appendectomy and reports she vaguely remembers having a similar rash after that surgery. She endorses using a new type of antibacterial soap. Patient denies any shortness of breath, urinary symptoms, or recent fevers. Patient also like someone to look at her incision site to ensure they are not infected. Labs Ordered: None necessary Imaging Ordered: None necessary Medications Ordered: Prednisone, Benadryl, Pepcid Diagnosis: Contact dermatitis, hives Patient Education/Shared MDM: Patient endorses mild improvement of symptoms following medication administration. She will be discharged home with Keflex to ensure pt is not developing cellulitis around the sites. Pt strongly recommended to stop scratching the sites. She was strongly advised to follow-up with her PCP as needed and general surgery, as previously scheduled on June 18, 2025. Pt advised to refrain from using her new antibacterial soap. She will be discharged home with a prescription for Keflex, Prednisone and Benadryl. Strict return precautions provided. Patient verbalized understanding and is in agreement with plan. Vital signs stable at time of discharge. All questions answered. Differential Diagnosis Differential diagnosis: Likely urticaria, cellulitis, eczema and contact dermatitis Discharge Plan Discharge Clinical Impression: Hives, Cellulitis Patient Disposition: Home Condition: Stable Instructions: Antibiotic Form, Urticaria (ED), Cellulitis (ED) Additional Instructions: Please return to the ER with any worsening symptoms. Follow-up with primary care provider in the next 2-3 days to ensure healing. Please follow-up with your general surgeon as scheduled. Take all medications as prescribed, including regularly scheduled medications. Complete your full dose of antibiotics. Please refrain from using any new soaps, laundry detergents or lotions. Patient Language: Slovak Prescriptions: New methylprednisolone [Medrol (Rex)] 4 mg tablets,dose pack See Rx Instructions .ROUTE .COMPLEX Qty: 21 0RF Rx Instructions: for 6 days cephalexin 500 mg capsule 500 mg PO Q8H 7 Days Qty: 21 0RF Benadryl Allergy 50 mg tablet 50 mg PO TID PRN (Reason: allergic reaction) Qty: 30 0RF No Action hydrocodone-acetaminophen 5-325 mg tablet 1 tablet PO Q6H PRN (Reason: pain) Qty: 20 0RF Follow-up/Referrals: Jaci Iniguez MD [Physician] - (general surgery) PHYSICIAN,[employer] [Primary Care Provider] - Time of Disposition: 19:09
[2025-06-10] MEDS: diphenhydrAMINE HCl CAP 25 MG CAPSULE 50 MG PO (18:27)
[2025-06-10] MEDS: FAMOTIDINE 20 MG TABLET PO (18:27)
--- OUTSIDE RECORDS SUMMARY | 2025-06-10 19:00 | XMS_ITS | Referral Summary ---
Author Organization [facility] Address [address] [place] [id number] Care Team Providers Care Straightening Roll Operator Name Role Phone No, Physician Primary Care Provider [phone] Encounters Date Type Department Care Team Description 04/02/2025 12:32 AM CDT - 04/02/2025 1:36 AM CDT Emergency 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 Testing performed by: [facility], [address] [place] [address]., [address] Blood 04/02/2025 12:5 1 AM CDT 04/02/2025 12:53 AM CDT us Braden Dan DO LAB BLOOD ORDERABLES Final Res ult [facility] [address] [facility] Department [place] [address] * Differential, auto (04/02/2025 12:51 AM CDT) Neutrophil abs 3.52 1.50 - 6.50 K/cumm Comment:Testing performed by : [address] [address] Imm gran abs 0.04 0.00 - 0.10 K/cumm NOEMÍ Comment:Testing performed by : [address] [address] Lymphocyte abs 2.24 0.80 - 3.30 K/cumm [facility] Comment:Testing performed by : [address] [address] Monocyte abs 0.44 0.20 - 0.80 K/cumm [facility] Comment:Testing performed by : [address] [address] Eosinophil abs 0.08 0.00 - 0.50 K/cumm [facility] Comment:Testing performed by : [address] [address] Basophil abs 0.04 0.00 - 0.10 K/cumm [facility] Comment:Testing performed by : [address] [address] Neutrophil pct 55.4 % [facility] Comment: Interpretive Data Percent cell count reference ranges are not reported, since discordance with absolute values may lead to misinterpretation of CBC data. Current Interpretive Data was last revised on 2018. Testing performed by: [address] [address] Imm gran pct 0.6 % [facility] Comment: Interpretive Data Percent cell count reference ranges are not reported, since discordance with absolute values may lead to misinterpretation of CBC data. Current Interpretive Data was last revised on 2018. Testing performed by: [address] [address] Lymphocyte pct 35.2 % [facility] Comment: Interpretive Data Percent cell count reference ranges are not reported, since discordance with absolute values may lead to misinterpretation of CBC data. Current Interpretive Data was last revised on 2018. Testing performed by: [address] [place] [address] Monocyte pct 6.9 % NOEMÍ Comment: Interpretive Data Percent cell count reference ranges are not reported, since discordance with absolute values may lead to misinterpretation of CBC data. Current Interpretive Data was last revised on 2018. Testing performed by: [address] [address] Eosinophil pct 1.3 % NO[facility] Comment: Interpretive Data Percent cell count reference ranges are not reported, since discordance with absolute values may lead to misinterpretation of CBC data. Current Interpretive Data was last revised on 2018. Testing performed by: [address] [address] Basophil pct 0.6 % [facility] Comment: Interpretive Data Percent cell count reference ranges are not reported, since discordance with absolute values may lead to misinterpretation of CBC data. Current Interpretive Data was last revised on 2018. Testing performed by: [address] [address] Blood 04/02/2025 12:5 1 AM CDT 04/02/2025 12:53 AM CDT Braden Dan DO LAB BLOOD ORDERABLES Final Res ult [facility] [address] [facility] Department [place] [address] * CBC with auto differential (04/02/2025 12:51 AM CDT) WBC 6.36 3.80 - 9.90 K/cumm Comment:Testing performed by : [address] [address] Hgb 14.5 11.9 - 15.5 g/dL [facility] Comment:Testing performed by : [address] [address] Hct 41.2 35.6 - 45.5 % NO[facility]Í Comment:Testing performed by : [address] [address] Plt 290 150 - 400 K/cumm [facility] Comment:Testing performed by : [address] [address] MPV 10.0 9.1 - 12.3 fL [facility] Comment:Testing performed by : [address] [address] RBC 4.80 3.90 - 5.20 M/cumm [facility] Comment:Testing performed by : [address] [address] MCV 85.8 81.3 - 96.4 fL NOEMÍ Comment:Testing performed by : [address] [address] MCH 30.2 27.1 - 33.3 pg [facility] Comment:Testing performed by : [address] [address] MCHC 35.2 32.3 - 35.7 g/dL NOEMÍ Comment:Testing performed by : [address], [address] RDW CV 12.7 11.1 - 14.9 % NOEMÍ Comment:Testing performed by : [address], [address] RDW SD 39.1 35.7 - 48.1 fL NOEMÍ Comment:Testing performed by : [address], [address] NRBC abs 0.00 0.00 - 0.01 K/cumm NOEMÍ Comment:Testing performed by : [address] [address] Blood 04/02/2025 12:5 1 AM CDT 04/02/2025 12:53 AM CDT us Braden Dan DO LAB BLOOD ORDERABLES Final Res ult [facility]IGE [address] [facility] Department of Laboratories [place], [place] [id number] * (ABNORMAL) Comprehensive metabolic panel (04/02/2025 12:51 AM CDT) Sodium 139 135 - 145 mmol/L Comment:Testing performed by : [address], [place]., [address] Potassium, pl 4.1 3.3 - 4.9 mmol/L NOEMÍ Comment:Testing performed by : [address], [place]., [address] Chloride 104 97 - 110 mmol/L NOEMÍ Comment:Testing performed by : [address], [place]., [address] CO2 22 22 - 32 mmol/L [facility] Comment:Testing performed by : [address], [place]., [address] Anion gap 13 2 - 15 mmol/L [facility] Comment:Testing performed by : [address], [place]., [address] BUN 9 6 - 25 mg/dL [facility] Comment:Testing performed by : [address], [place]., [address] Creatinine 0.70 0.60 - 1.10 mg/dL [facility] Comment:Testing performed by : [address], [place]., [address] Glucose 92 70 - 199 mg/dL [facility] Comment: Interpretive Data Fasting glucose >/= [...] was last revised 2022. Testing performed by: [address] [address] Calcium 10.1 8.5 - 10.3 mg/dL NOEMÍ Comment:Testing performed by : [address], [place]., [address] Bilirubin, total 0.3 0.1 - 1.2 mg/dL NOEMÍ Comment:Testing performed by : [address], [place]., [address] Protein, pl 7.9 6.5 - 8.5 g/dL NOEMÍ Comment:Testing performed by : [address] [address] Albumin 4.6 3.5 - 5.0 g/dL NOEMÍ Comment:Testing performed by : [address] [address] Alk phos 98 40 - 130 Units/L NOEMÍ Comment:Testing performed by : [address] [address] ALT 52(H) 7 - 45 Units/L NOEMÍ Comment:Testing performed by : [address] [address] AST 33 10 - 45 Units/L NOEMÍ Comment:Testing performed by : [address] [address] Blood 04/02/2025 12:5 1 AM CDT 04/02/2025 12:53 AM CDT us Braden Dan DO LAB BLOOD ORDERABLES Final Res ult NOEMÍ [address] [facility] Department of Laboratories [place], [place] [id number] from Last 3 Months Insurance [facility] Care Teams Straightening Roll Operator Relationship Specialty Start Date End Date No, Physician PCP - General 04/01/25
--- OUTSIDE RECORDS SUMMARY | 2025-06-10 19:00 | XMS_ITS | Clinical Summary ---
Author Organization [facility] Address [address] [place] [address] Care Team Providers Care Steward/Stewardess Chief Cargo Vessel Name Role Phone Faustino Matta MD Primary Care Provider Source Comments [facility],non-owned Affiliates and Associated Physician Practices is amultiple site organization consisting of ambulatory clinics and hospital sitesin [place], [place], [place] and [place]. This disclosure is being madepursuant to the Care Everywhere program and may not contain all information available regarding this patient. 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
--- OUTSIDE RECORDS SUMMARY | 2025-06-10 19:00 | XMS_ITS | Clinical Summary ---
Author Organization 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 Testing performed by: [address] [address] Blood 04/02/2025 12:5 1 AM CDT 04/02/2025 12:53 AM CDT us Braden Dan DO LAB BLOOD ORDERABLES Final Res ult NOEMÍ [facility] Department [place] [address] * Differential, auto (04/02/2025 12:51 AM CDT) Neutrophil abs 3.52 1.50 - 6.50 K/cumm Comment:Testing performed by : [address] [address] Imm gran abs 0.04 0.00 - 0.10 K/cumm NOEMÍ Comment:Testing performed by : [address] [address] Lymphocyte abs 2.24 0.80 - 3.30 K/cumm NOEMÍ Comment:Testing performed by : [address] [address] Monocyte abs 0.44 0.20 - 0.80 K/cumm NOEMÍ Comment:Testing performed by : [address] [address] Eosinophil abs 0.08 0.00 - 0.50 K/cumm NOEMÍ Comment:Testing performed by : [address] [address] Basophil abs 0.04 0.00 - 0.10 K/cumm NOEMÍ Comment:Testing performed by : [address] [address] Neutrophil pct 55.4 % NOEMÍ Comment: Interpretive Data Percent cell count reference ranges are not reported, since discordance with absolute values may lead to misinterpretation of CBC data. Current Interpretive Data was last revised on 2018. Testing performed by: [address] [address] Imm gran pct 0.6 % [facility] Comment: Interpretive Data Percent cell count reference ranges are not reported, since discordance with absolute values may lead to misinterpretation of CBC data. Current Interpretive Data was last revised on 2018. Testing performed by: [address] [address] Lymphocyte pct 35.2 % [facility] Comment: Interpretive Data Percent cell count reference ranges are not reported, since discordance with absolute values may lead to misinterpretation of CBC data. Current Interpretive Data was last revised on 2018. Testing performed by: [address] [address] Monocyte pct 6.9 % [facility] Comment: Interpretive Data Percent cell count reference ranges are not reported, since discordance with absolute values may lead to misinterpretation of CBC data. Current Interpretive Data was last revised on 2018. Testing performed by: [address] [address] Eosinophil pct 1.3 % [facility] Comment: Interpretive Data Percent cell count reference ranges are not reported, since discordance with absolute values may lead to misinterpretation of CBC data. Current Interpretive Data was last revised on 2018. Testing performed by: [address] [address] Basophil pct 0.6 % [facility] Comment: Interpretive Data Percent cell count reference ranges are not reported, since discordance with absolute values may lead to misinterpretation of CBC data. Current Interpretive Data was last revised on 2018. Testing performed by: [address] [address] Blood 04/02/2025 12:5 1 AM CDT 04/02/2025 12:53 AM CDT us Braden Dan DO LAB BLOOD ORDERABLES Final Res ult NOEMÍ [address] [facility] Department [place] [address] * CBC with auto differential (04/02/2025 12:51 AM CDT) WBC 6.36 3.80 - 9.90 K/cumm Comment:Testing performed by : [address] [address] Hgb 14.5 11.9 - 15.5 g/dL NOEMÍ Comment:Testing performed by : [address] [address] Hct 41.2 35.6 - 45.5 % NOEMÍ Comment:Testing performed by : [address] [address] Plt 290 150 - 400 K/cumm NOEMÍ Comment:Testing performed by : [address], [address] MPV 10.0 9.1 - 12.3 fL NOEMÍ Comment:Testing performed by : [address] [address] RBC 4.80 3.90 - 5.20 M/cumm NOEMÍ Comment:Testing performed by : [address] [address] MCV 85.8 81.3 - 96.4 fL NOEMÍ Comment:Testing performed by : [address] [address] MCH 30.2 27.1 - 33.3 pg NOEMÍ Comment:Testing performed by : [address] [address] MCHC 35.2 32.3 - 35.7 g/dL NOEMÍ Comment:Testing performed by : [address], [address] RDW CV 12.7 11.1 - 14.9 % [facility] Comment:Testing performed by : [address] [address] RDW SD 39.1 35.7 - 48.1 fL NO[facility]IZVI Comment:Testing performed by : [address] [address] NRBC abs 0.00 0.00 - 0.01 K/cumm NOEMÍ [facility] Comment:Testing performed by : [address] [address] Blood 04/02/2025 12:5 1 AM CDT 04/02/2025 12:53 AM CDT us Braden Dan DO LAB BLOOD ORDERABLES Final Res ult NOEMÍ RIZVI [address] [facility] Department [place] [address] * (ABNORMAL) Comprehensive metabolic panel (04/02/2025 12:51 AM CDT) Sodium 139 135 - 145 mmol/L Comment:Testing performed by : [address] [address] Potassium, pl 4.1 3.3 - 4.9 mmol/L NOEMÍ RIZVI Comment:Testing performed by : [address] [address] Chloride 104 97 - 110 mmol/L [facility] Comment:Testing performed by : [address] [address] CO2 22 22 - 32 mmol/L [facility] Comment:Testing performed by : [address] [address] Anion gap 13 2 - 15 mmol/L [facility] Comment:Testing performed by : [address] [address] BUN 9 6 - 25 mg/dL [facility] Comment:Testing performed by : [address] [address] Creatinine 0.70 0.60 - 1.10 mg/dL [facility] Comment:Testing performed by : [address] [address] Glucose 92 70 - 199 mg/dL NOEMÍ [...] was last revised 2022. Testing performed by: [address] [address] Calcium 10.1 8.5 - 10.3 mg/dL NOEMÍ Comment:Testing performed by : [address] [address] Bilirubin, total 0.3 0.1 - 1.2 mg/dL [facility] Comment:Testing performed by : [address] [address] Protein, pl 7.9 6.5 - 8.5 g/dL [facility] Comment:Testing performed by : [address] [address] Albumin 4.6 3.5 - 5.0 g/dL NOEMÍ Comment:Testing performed by : [address] [address] Alk phos 98 40 - 130 Units/L NO[facility] Comment:Testing performed by : [address] [address] ALT 52(H) 7 - 45 Units/L NO[facility] Comment:Testing performed by : [address] [address] AST 33 10 - 45 Units/L NO[facility] Comment:Testing performed by : [address] [address] Blood 04/02/2025 12:5 1 AM CDT 04/02/2025 12:53 AM CDT us Barden Dan DO LAB BLOOD ORDERABLES Final Res ult NO[facility] [place] [address] from Last 3 Months Insurance [facility] Care Teams Water Tanker Driver Relationship Specialty Start Date End Date No, Physician PCP - General 04/01/25
--- OUTSIDE RECORDS SUMMARY | 2025-06-10 19:00 | XMS_ITS | Clinical Summary ---
Author Organization [facility] Address [address] [place] [address] Care Team Providers Care Mat Maker Name Role Phone Geovanna Pryor NP Primary [...] age to complete this topic Care Teams Mat Maker Relationship Specialty Start Date End Date Geovanna Pryor NP [address] [place] [address] PCP - General Nurse Practitioner Family 06/17/19 Geovanna Pryor NP [address] [place] [address] 06/17/19
[2025-06-10] MEDS: CEPHALEXIN 500 MG CAPSULE PO (19:06)
== END 2025-06-10 19:14 | disposition home or self-care (01) ==
PROVIDERS: Emergency Provider Registered Nurse
DX: T81.41XA Infection following a procedure, superficial incisional surgical site, initial encounter (principal); L03.311 Cellulitis of abdominal wall; L50.9 Urticaria, unspecified; Z87.891 Personal history of nicotine dependence; Y83.6 Removal of other organ (partial) (total) as the cause of abnormal reaction of the patient, or of later complication, without mention of misadventure at the time of the procedure
CPT/HCPCS: 99283; 99284; A9270; J7512